=== PATIENT | male | born 1980 | race Two or more races ===

== ENCOUNTER 2024-10-27 08:38 | Emergency (ER) | payer MEDICAID, SELFPAY ==
[2024-10-27 08:44] VITALS: BP 124/76; PULSE 86; RESP 16; TEMP 36.7; O2SAT 99; BMI 28.1
--- NOTE | 2024-10-27 08:48 | PD.EDBACK ---
ED Back Injury Pain RME/HPI General Chief Complaint: Back Pain/Injury Stated Complaint: BILATERAL FLANK PAIN Time Seen by Provider: 10/27/24 08:44 Arrival date/time: 10/27/24 08:38 44-year-old male with a history of chronic lower back pain reports with complaints of bilateral lower back and flank pain that began last evening. Patient reports having kidney pain but no dysuria urinary urgency frequency hematuria fever or chills. Patient reports not taking any medications for symptoms. He also denies trauma or injury to the lower spine or heavy lifting pushing or pulling Limitations: no limitations Related Data Previous Rx's ?Medication ?Instructions ?Recorded sulfamethoxazole 800 1 tab PO BID #14 tabs 03/09/23 mg-trimethoprim 160 mg tablet (Bactrim DS) cyclobenzaprine 5 mg tablet 5 mg PO TID PRN muscle spasm #30 07/23/23 tabs naproxen 500 mg tablet 500 mg PO BID PRN pain #30 tabs 07/23/23 naproxen 500 mg tablet 500 mg PO BID PRN pain #30 tabs 08/08/23 tamsulosin 0.4 mg capsule (Flomax) 0.4 mg PO QDAY #30 caps 08/08/23 baclofen 10 mg tablet 10 mg PO BID PRN muscle spasm #30 08/14/23 tabs naproxen 500 mg tablet 500 mg PO BID PRN pain #30 tabs 08/14/23 ibuprofen 800 mg tablet 800 mg PO TID PRN pain #30 tabs 08/28/23 ibuprofen 600 mg tablet 600 mg PO Q6H PRN pain #30 tabs 01/27/24 methocarbamol 500 mg tablet 1,000 mg (2 x 500 mg) PO Q8H PRN 01/27/24 pain #30 tabs naproxen 500 mg tablet (Naprosyn) 500 mg PO BID #14 tabs 03/15/24 ibuprofen 800 mg tablet 800 mg PO TID PRN pain #30 tabs 04/02/24 cyclobenzaprine 5 mg tablet 5 mg PO TID PRN muscle spasm #14 04/07/24 tabs ibuprofen 600 mg tablet 600 mg PO Q6H PRN fever or pain 04/07/24 #30 tabs ibuprofen 600 mg tablet 600 mg PO Q6H PRN pain #30 tabs 04/07/24 cyclobenzaprine 5 mg tablet 5 mg PO TID PRN muscle spasm #30 04/11/24 tabs naproxen 500 mg tablet 500 mg PO BID PRN pain #30 tabs 04/11/24 Allergies Allergy/AdvReac Type Severity Reaction Status Date / Time No Known Allergies Allergy Verified 10/27/24 08:39 Review of Systems Constitutional Constitutional: Denies chills, Denies fever(s) and Denies headache(s) ENT Ears, Nose, Mouth, and Throat: Denies dizziness and Denies headache(s) Cardiovascular Cardiovascular: Denies chest pain and Denies dyspnea Respiratory Respiratory: Denies cough and Denies dyspnea Gastrointestinal Gastrointestinal: Denies abdominal pain, Denies nausea and Denies vomiting Genitourinary Genitourinary: Denies dysuria, Reports flank pain and Denies hematuria Musculoskeletal Musculoskeletal: Reports back pain and Denies myalgias Integumentary/Breasts Skin/Breast: Denies erythema and Denies rash Neurologic Neurologic: Denies dizziness and Denies headache(s) Hematologic/Lymphatic Hematologic/Lymphatic: Denies easy bleeding and Denies easy bruising Past Medical History Past Medical History NEUROLOGIC: Positive Neurological Disorders and Cerebrovascular Accident CARDIAC: Positive Cardiac Disorders, Myocardial Infarction and Hypercholesterolemia; Negative Congestive Heart Failure RESPIRATORY: Negative Chronic Obstructive Pulmonary Disease (COPD) GASTROINTESTINAL: Negative Gastrointestinal Disorders GENITOURINARY: Negative Genitourinary Disorders or Renal Disease MUSCULOSKELETAL: Negative Musculoskeletal Disorders ENDOCRINE: Negative Endocrine Disorders, Diabetes Mellitus Type 1 or Diabetes Mellitus Type 2 HEMATOLOGIC: Negative Blood Disorders OTHER HISTORY: Negative Autoimmune Disease or Clostridium Difficile Social History SMOKING STATUS: Current every day smoker SUBSTANCE USE: methamphetamine ED Exam General Limitations: Present no limitations General appearance: Present alert and in no apparent distress Chest Chest inspection: Present normal inspection and symmetric chest wall rise Respiratory Respiratory exam: Present normal lung sounds bilaterally Cardiovascular Cardiovascular exam: Present regular rate, normal rhythm and normal heart sounds Abdominal Exam Abdominal exam: Present soft and normal bowel sounds; Absent tenderness, guarding, rebound or Perales's sign Extremities Exam Extremities exam: Present normal inspection and full ROM Back Exam Back exam: Present normal inspection and full ROM; Absent tenderness, sciatic notch tenderness (L) or straight leg raise (R) Neurological Exam Neurological exam: Present alert, oriented X3 and CN II-XII intact Psychiatric Psychiatric exam: Present normal affect and normal mood Skin Skin exam: Present warm, dry, intact and normal color Course Quality Measures none Orders Category Date Time Status CT abdomen pelvis wo con Stat Exams 10/27/24 10:05 Ordered Urinalysis, C/S if Indicated Stat Lab 10/27/24 08:50 Completed Vital Signs Vital signs: Vital Signs Temperature 98.0 F 10/27/24 08:44 Pulse Rate 86 10/27/24 08:44 Respiratory Rate 16 10/27/24 08:44 Blood Pressure 124/76 10/27/24 08:44 Pulse Oximetry (%) 99 10/27/24 08:44 Oxygen Delivery Method Room Air 10/27/24 08:44 Back Pain / Injury Patient data External records reviewed:: None Clinical information provided by:: patient Social determinants that could affect healthcare access:: none Patient has the following chronic illnesses:: none How is presenting disease/condition affected by chronic disease/condition?: no chronic disease Evaluation data The following diagnostics were reviewed and interpreted by me:: other (specify) (pt eloped ) Lab and/or radiology exams considered but not ordered:: not completed pt eloped Interpretation Summary: not completed pt eloped Medications / Prescriptions Medications or Prescriptions considered but not ordered:: not completed pt eloped Medication administrations:: not completed pt eloped Consultations Consultation(s) initiated? (list below): No Diagnosis Most likely diagnosis given after review of the tests above:: not completed pt eloped Admission Indicated Admission indicated?: not indicated Admission Request Was there a request for admission?: No Disposition Plan Disposition Plan: other (specify) (pt eloped ) Discharge Plan Plan Patient Disposition: Elopement Prescriptions/Referrals Prescriptions/Med Rec: No Action naproxen 500 mg tablet 500 mg PO BID PRN (Reason: pain) Qty: 30 0RF cyclobenzaprine 5 mg tablet 5 mg PO TID PRN (Reason: muscle spasm) Qty: 30 0RF naproxen 500 mg tablet 500 mg PO BID PRN (Reason: pain) Qty: 30 0RF baclofen 10 mg tablet 10 mg PO BID PRN (Reason: muscle spasm) Qty: 30 0RF ibuprofen 800 mg tablet 800 mg PO TID PRN (Reason: pain) Qty: 30 0RF ibuprofen 800 mg tablet 800 mg PO TID PRN (Reason: pain) Qty: 30 0RF ibuprofen 600 mg tablet 600 mg PO Q6H PRN (Reason: pain) Qty: 30 0RF sulfamethoxazole-trimethoprim [Bactrim DS] 800-160 mg tablet 1 tab PO BID Qty: 14 0RF naproxen 500 mg tablet 500 mg PO BID PRN (Reason: pain) Qty: 30 0RF tamsulosin [Flomax] 0.4 mg capsule 0.4 mg PO QDAY Qty: 30 0RF ibuprofen 600 mg tablet 600 mg PO Q6H PRN (Reason: pain) Qty: 30 0RF methocarbamol 500 mg tablet 1,000 mg PO Q8H PRN (Reason: pain) Qty: 30 0RF naproxen [Naprosyn] 500 mg tablet 500 mg PO BID Qty: 14 0RF ibuprofen 600 mg tablet 600 mg PO Q6H PRN (Reason: fever or pain) Qty: 30 0RF cyclobenzaprine 5 mg tablet 5 mg PO TID PRN (Reason: muscle spasm) Qty: 14 0RF naproxen 500 mg tablet 500 mg PO BID PRN (Reason: pain) Qty: 30 0RF cyclobenzaprine 5 mg tablet 5 mg PO TID PRN (Reason: muscle spasm) Qty: 30 0RF Referrals: Lavell (PCP),MD Cody [Primary Care Provider] - In 1 week Problem List Clinical Impression: Back pain Patient/Caregiver Discharge Instructions Print Language: Austrian
[2024-10-27 09:18] LABS: Collection Type, Urine Clean Catch; Squamous Epithelial Cell,Urine 0 /hpf (0-5)
[2024-10-27 09:38] LABS: Bilirubin,Urine Negative (Negative); Blood,Urine 1+ (Negative); Clarity,Urine Clear (Clear/Hazy); Color,Urine Yellow (Lt Yel-Yel); Culture Indicated,Urine Not Indicated; Glucose, Urine Negative (Negative); Ketones,Urine Negative (Negative); Leukocyte Esterase,Urine Negative (Negative); Nitrite,Urine Negative (Negative); Protein,Urine 1+ (Neg - Trace); RBC,Urine 4 /hpf (0-3); Specific Gravity,Urine 1.026 (1.001-1.035); Urobilinogen,Urine Negative mg/dL (0.0-1.0); WBC,Urine 3 /hpf (0-5)
--- NOTE | 2024-10-27 10:34 | PC.NURSE ---
called pt back, no answer at this time
--- NOTE | 2024-10-27 11:29 | PC.NURSE ---
PATIENT SEEN WALKING OUT OF WAITING ROOM
== END 2024-10-27 10:30 | disposition left against medical advice (07) ==
PROVIDERS: Physician Assistant; Emergency Provider Emergency Medicine; PCP Family Medicine
DX: M54.50 Low back pain, unspecified (principal); R10.9 Unspecified abdominal pain; G89.29 Other chronic pain
CPT/HCPCS: 81001; 99281

== ENCOUNTER 2024-11-03 19:47 | Emergency (ER) | payer MEDICAID, SELFPAY ==
[2024-11-03 19:49] VITALS: PULSE 88; O2SAT 96; BMI 28.8
[2024-11-03 20:23] VITALS: BP 149/102; PULSE 94; RESP 18; TEMP 36.6; O2SAT 100
--- NOTE | 2024-11-03 20:34 | EDNOTE_ITS ---
<Statement entered by Annemarie Cortez MD - 11/13/24 11:49> As co-signing physician, I was present and available for consult prn. I concur with the plan and care as documented by the midlevel provider. ED Back Injury Pain RME/HPI General Chief Complaint: Back Pain/Injury Stated Complaint: LOWER BACK PAIN Time Seen by Provider: 11/03/24 20:27 Source: patient Arrival date/time: 11/03/24 19:47 44-year-old male presents emergency department complaining of lower back pain has been ongoing for several years. Patient denies any fever, chills, n/v, or any other associated symptoms. Mode of arrival: ambulatory Limitations: no limitations Related Data Previous Rx's ?Medication ?Instructions ?Recorded sulfamethoxazole 800 1 tab PO BID #14 tabs 03/09/23 mg-trimethoprim 160 mg tablet (Bactrim DS) cyclobenzaprine 5 mg tablet 5 mg PO TID PRN muscle spasm #30 07/23/23 tabs naproxen 500 mg tablet 500 mg PO BID PRN pain #30 tabs 07/23/23 naproxen 500 mg tablet 500 mg PO BID PRN pain #30 tabs 08/08/23 tamsulosin 0.4 mg capsule (Flomax) 0.4 mg PO QDAY #30 caps 08/08/23 baclofen 10 mg tablet 10 mg PO BID PRN muscle spasm #30 08/14/23 tabs naproxen 500 mg tablet 500 mg PO BID PRN pain #30 tabs 08/14/23 ibuprofen 800 mg tablet 800 mg PO TID PRN pain #30 tabs 08/28/23 ibuprofen 600 mg tablet 600 mg PO Q6H PRN pain #30 tabs 01/27/24 methocarbamol 500 mg tablet 1,000 mg (2 x 500 mg) PO Q8H PRN 01/27/24 pain #30 tabs naproxen 500 mg tablet (Naprosyn) 500 mg PO BID #14 tabs 03/15/24 ibuprofen 800 mg tablet 800 mg PO TID PRN pain #30 tabs 04/02/24 cyclobenzaprine 5 mg tablet 5 mg PO TID PRN muscle spasm #14 04/07/24 tabs ibuprofen 600 mg tablet 600 mg PO Q6H PRN fever or pain 04/07/24 #30 tabs ibuprofen 600 mg tablet 600 mg PO Q6H PRN pain #30 tabs 04/07/24 cyclobenzaprine 5 mg tablet 5 mg PO TID PRN muscle spasm #30 04/11/24 tabs naproxen 500 mg tablet 500 mg PO BID PRN pain #30 tabs 04/11/24 ibuprofen 600 mg tablet 600 mg PO Q8H PRN pain #20 tabs 11/03/24 Allergies Allergy/AdvReac Type Severity Reaction Status Date / Time No Known Allergies Allergy Verified 10/27/24 08:39 Review of Systems Review of Systems Systems Reviewed: All systems reviewed, normal except as documented Constitutional Constitutional: Reports system reviewed and no additional complaints, except as documented, Denies body ache(s), Denies chills and Denies fever(s) Eyes Eyes: Reports system reviewed and no additional complaints, except as documented and Denies change in vision ENT Ears, Nose, Mouth, and Throat: Reports system reviewed and no additional complaints, except as documented, Denies disequilibrium, Denies dizziness, Denies sore throat and Denies vertigo Cardiovascular Cardiovascular: Reports system reviewed and no additional complaints, except as documented, Denies chest pain and Denies dyspnea Respiratory Respiratory: Reports system reviewed and no additional complaints, except as documented, Denies chest congestion, Denies cough and Denies dyspnea Gastrointestinal Gastrointestinal: Reports system reviewed and no additional complaints, except as documented, Denies abdominal pain, Denies nausea and Denies vomiting Musculoskeletal Musculoskeletal: Reports system reviewed and no additional complaints, except as documented, Denies abnormal gait, Denies arthralgias and Reports back pain Integumentary/Breasts Skin/Breast: Reports system reviewed and no additional complaints, except as documented, Denies erythema, Denies rash and Denies wounds Neurologic Neurologic: Reports system reviewed and no additional complaints, except as documented, Denies abnormal gait, Denies disequilibrium, Denies dizziness and Denies vertigo Past Medical History Past Medical History NEUROLOGIC: Positive Neurological Disorders and Cerebrovascular Accident CARDIAC: Positive Cardiac Disorders, Myocardial Infarction and Hypercholesterolemia; Negative Congestive Heart Failure RESPIRATORY: Negative Chronic Obstructive Pulmonary Disease (COPD) GASTROINTESTINAL: Negative Gastrointestinal Disorders GENITOURINARY: Negative Genitourinary Disorders or Renal Disease MUSCULOSKELETAL: Negative Musculoskeletal Disorders ENDOCRINE: Negative Endocrine Disorders, Diabetes Mellitus Type 1 or Diabetes Mellitus Type 2 HEMATOLOGIC: Negative Blood Disorders OTHER HISTORY: Negative Autoimmune Disease or Clostridium Difficile Social History SMOKING STATUS: Current every day smoker SUBSTANCE USE: methamphetamine ED Exam General Limitations: Present no limitations General appearance: Present alert and in no apparent distress Head Head exam: Present atraumatic Eye Eye exam: Present normal appearance, PERRL and EOMI ENT ENT exam: Present normal exam, normal oropharynx and mucous membranes moist Neck Neck exam: Present normal inspection, full ROM and trachea midline Chest Chest inspection: Present normal inspection and symmetric chest wall rise Respiratory Respiratory exam: Present normal lung sounds bilaterally Cardiovascular Cardiovascular exam: Present regular rate, normal rhythm and normal heart sounds Abdominal Exam Abdominal exam: Present soft and normal bowel sounds Extremities Exam Extremities exam: Present normal inspection and full ROM Back Exam Back exam: Present normal inspection and full ROM Neurological Exam Neurological exam: Present alert, oriented X3 and CN II-XII intact Psychiatric Psychiatric exam: Present normal affect and normal mood Skin Skin exam: Present warm, dry, intact and normal color Course Quality Measures none Orders Category Date Time Status Drug Screen,Urine Stat Lab 11/03/24 20:36 Completed Urinalysis, C/S if Indicated Stat Lab 11/03/24 20:36 Completed Ketorolac Inj [Toradol Inj] Med 11/03/24 22:17 Discontinued 30 mg IM X1 ONE Vital Signs Vital signs: Vital Signs Temperature 98 F 11/03/24 20:23 Pulse Rate 94 11/03/24 20:23 Respiratory Rate 18 11/03/24 20:23 Blood Pressure 149/102 H 11/03/24 20:23 Pulse Oximetry (%) 100 11/03/24 20:23 Oxygen Delivery Method Room Air 11/03/24 20:23 100% RA WNL. Back Pain / Injury MDM Narrative MDM Narrative:: 44-year-old male presents emergency department complaining of lower back pain has been ongoing for several years. Patient denies any fever, chills, n/v, bowel or bladder dysfunction, or any other associated symptoms. Urinalysis unremarkable. Patient appears non toxic and hemodynamically stable. Patient steady gait and ambulate independently. Patient data External records reviewed:: [facility] previous records Clinical information provided by:: patient Social determinants that could affect healthcare access:: substance use Patient has the following chronic illnesses:: see chart How is presenting disease/condition affected by chronic disease/condition?: exacerbated by Evaluation data The following diagnostics were reviewed and interpreted by me:: lab results Lab and/or radiology exams considered but not ordered:: ordered Interpretation Summary: interpreted by me Medications / Prescriptions Medications or Prescriptions considered but not ordered:: ordered Medication administrations:: Medication Administration History Discontinued Medications Ketorolac Tromethamine (Ketorolac Inj 60 Mg/2 Ml Vial) 30 mg IM X1 ONE Stop: 11/03/24 22:18 Last Admin: 11/03/24 22:34 Dose: 30 mg Documented By: OA given Consultations Consultation(s) initiated? (list below): No Diagnosis Differential diagnosis back pain/injury: lumbar radiculopathy, sciatica, strain of lumbar region, renal colic, pyelonephritis, thoracic back pain, AAA and discitis Most likely diagnosis given after review of the tests above:: methamphetamine use back pain Admission Indicated Admission indicated?: not indicated Admission Request Was there a request for admission?: No Disposition Plan Disposition Plan: Discharge Discharge Attestation Discharge Attestation: The patient and all family members were given an opportunity to ask questions and understood the discharge instructions. Discharge instructions specifically effects, indications for sooner follow up or return to the emergency department, and the expected course of current diagnosis. Patient condition: Stable Discharge Plan Plan Patient Disposition: HOME (Self Care) Disposition Comment: Stable Prescriptions/Referrals Prescriptions/Med Rec: New ibuprofen 600 mg tablet 600 mg PO Q8H PRN (Reason: pain) Qty: 20 0RF No Action naproxen 500 mg tablet 500 mg PO BID PRN (Reason: pain) Qty: 30 0RF cyclobenzaprine 5 mg tablet 5 mg PO TID PRN (Reason: muscle spasm) Qty: 30 0RF naproxen 500 mg tablet 500 mg PO BID PRN (Reason: pain) Qty: 30 0RF baclofen 10 mg tablet 10 mg PO BID PRN (Reason: muscle spasm) Qty: 30 0RF ibuprofen 800 mg tablet 800 mg PO TID PRN (Reason: pain) Qty: 30 0RF ibuprofen 800 mg tablet 800 mg PO TID PRN (Reason: pain) Qty: 30 0RF ibuprofen 600 mg tablet 600 mg PO Q6H PRN (Reason: pain) Qty: 30 0RF sulfamethoxazole-trimethoprim [Bactrim DS] 800-160 mg tablet 1 tab PO BID Qty: 14 0RF naproxen 500 mg tablet 500 mg PO BID PRN (Reason: pain) Qty: 30 0RF tamsulosin [Flomax] 0.4 mg capsule 0.4 mg PO QDAY Qty: 30 0RF ibuprofen 600 mg tablet 600 mg PO Q6H PRN (Reason: pain) Qty: 30 0RF methocarbamol 500 mg tablet 1,000 mg PO Q8H PRN (Reason: pain) Qty: 30 0RF naproxen [Naprosyn] 500 mg tablet 500 mg PO BID Qty: 14 0RF ibuprofen 600 mg tablet 600 mg PO Q6H PRN (Reason: fever or pain) Qty: 30 0RF cyclobenzaprine 5 mg tablet 5 mg PO TID PRN (Reason: muscle spasm) Qty: 14 0RF naproxen 500 mg tablet 500 mg PO BID PRN (Reason: pain) Qty: 30 0RF cyclobenzaprine 5 mg tablet 5 mg PO TID PRN (Reason: muscle spasm) Qty: 30 0RF Referrals: No Primary/Family,Physician [Primary Care Provider] - In 1 week Problem List Clinical Impression: Methamphetamine use, Back pain Patient/Caregiver Discharge Instructions Discharge Activity: activity as tolerated Education Materials: Addiction Ask These Questions, Addiction: Getting Help, Addiction: Your Treatment Options, Addiction Recovery Counseling, ED Drug Abuse Additional Instructions: Take medication as prescribed as needed for pain. No signs of infection or UTI. Follow-up with primary care provider and request referral physical therapy or MRI of lower back if symptoms persist. Return to emergency department for any worsening symptoms or as needed. Print Language: Estonian Stand Alone Forms: Tami Award Info., Patient Portal Info Letter PA/DEVYN Supervising Physician PA/DEVYN Supervising Physician: Dr. Cortez
[2024-11-03 20:48] LABS: Collection Type, Urine Clean Catch; RBC,Urine 0 /hpf (0-3); Squamous Epithelial Cell,Urine 0 /hpf (0-5); WBC,Urine 0 /hpf (0-5)
[2024-11-03 21:04] LABS: Bilirubin,Urine Negative (Negative); Blood,Urine Negative (Negative); Clarity,Urine Clear (Clear/Hazy); Color,Urine Yellow (Lt Yel-Yel); Culture Indicated,Urine Not Indicated; Glucose, Urine Negative (Negative); Ketones,Urine Trace (Negative); Leukocyte Esterase,Urine Negative (Negative); Nitrite,Urine Negative (Negative); Protein,Urine Trace (Neg - Trace); Specific Gravity,Urine 1.036 (1.001-1.035)
[2024-11-03 21:37] LABS: Amphetamine/Methamp Scrn,U Positive (Negative); Barbiturate Screen,Urine Negative (Negative); Benzodiazepines Screen,Urine Negative (Negative); Benzoylecgonine Screen, Ur Negative (Negative); Fentanyl Screen,Urine Negative (Negative); Opiate Screen,Urine Negative (Negative); THC Screen,Urine Positive (Negative)
[2024-11-03] MEDS: KETOROLAC INJ 60 MG/2 ML VIAL 30 MG IM (22:34)
== END 2024-11-03 23:41 | disposition home or self-care (01) ==
PROVIDERS: Emergency Provider Emergency Medicine
DX: M54.50 Low back pain, unspecified (principal); F15.90 Other stimulant use, unspecified, uncomplicated
CPT/HCPCS: 80307; 81001; 96372; 99283; J1885

== ENCOUNTER 2024-11-12 15:52 | Emergency (ER) | payer MEDICAID, SELFPAY ==
[2024-11-12 16:00] VITALS: BP 127/88; PULSE 76; RESP 18; TEMP 37.3; O2SAT 95
--- NOTE | 2024-11-12 16:39 | EDNOTE_ITS ---
<Statement entered by Annemarie Cortez MD - 11/13/24 11:47> As co-signing physician, I was present and available for consult prn. I concur with the plan and care as documented by the midlevel provider. ED Back Injury Pain RME/HPI General Stated Complaint: BACK PAIN Time Seen by Provider: 11/12/24 16:37 Arrival date/time: 11/12/24 15:52 44-year-old male homeless on methamphetamines presents the emergency department complains of lower back pain patient reports pain is chronic patient reports no saddle anesthesia no loss of bowel or bladder no fever nausea or vomiting Limitations: no limitations Related Data Previous Rx's ?Medication ?Instructions ?Recorded sulfamethoxazole 800 1 tab PO BID #14 tabs 03/09/23 mg-trimethoprim 160 mg tablet (Bactrim DS) cyclobenzaprine 5 mg tablet 5 mg PO TID PRN muscle spasm #30 07/23/23 tabs naproxen 500 mg tablet 500 mg PO BID PRN pain #30 tabs 07/23/23 naproxen 500 mg tablet 500 mg PO BID PRN pain #30 tabs 08/08/23 tamsulosin 0.4 mg capsule (Flomax) 0.4 mg PO QDAY #30 caps 08/08/23 baclofen 10 mg tablet 10 mg PO BID PRN muscle spasm #30 08/14/23 tabs naproxen 500 mg tablet 500 mg PO BID PRN pain #30 tabs 08/14/23 ibuprofen 800 mg tablet 800 mg PO TID PRN pain #30 tabs 08/28/23 ibuprofen 600 mg tablet 600 mg PO Q6H PRN pain #30 tabs 01/27/24 methocarbamol 500 mg tablet 1,000 mg (2 x 500 mg) PO Q8H PRN 01/27/24 pain #30 tabs naproxen 500 mg tablet (Naprosyn) 500 mg PO BID #14 tabs 03/15/24 ibuprofen 800 mg tablet 800 mg PO TID PRN pain #30 tabs 04/02/24 cyclobenzaprine 5 mg tablet 5 mg PO TID PRN muscle spasm #14 04/07/24 tabs ibuprofen 600 mg tablet 600 mg PO Q6H PRN fever or pain 04/07/24 #30 tabs ibuprofen 600 mg tablet 600 mg PO Q6H PRN pain #30 tabs 04/07/24 cyclobenzaprine 5 mg tablet 5 mg PO TID PRN muscle spasm #30 04/11/24 tabs naproxen 500 mg tablet 500 mg PO BID PRN pain #30 tabs 04/11/24 ibuprofen 600 mg tablet 600 mg PO Q8H PRN pain #20 tabs 11/03/24 Allergies Allergy/AdvReac Type Severity Reaction Status Date / Time No Known Allergies Allergy Verified 10/27/24 08:39 Review of Systems Review of Systems Systems Reviewed: All systems reviewed, normal except as documented Constitutional Constitutional: Reports system reviewed and no additional complaints, except as documented, Denies fever(s) and Denies headache(s) Eyes Eyes: Reports system reviewed and no additional complaints, except as documented and Denies blurry vision ENT Ears, Nose, Mouth, and Throat: Reports system reviewed and no additional complaints, except as documented, Denies headache(s), Denies nasal congestion and Denies nasal discharge Cardiovascular Cardiovascular: Reports system reviewed and no additional complaints, except as documented, Denies chest pain and Denies dyspnea Respiratory Respiratory: Reports system reviewed and no additional complaints, except as documented, Denies chest congestion, Denies cough and Denies dyspnea Gastrointestinal Gastrointestinal: Reports system reviewed and no additional complaints, except as documented and Denies abdominal pain Musculoskeletal Musculoskeletal: Reports system reviewed and no additional complaints, except as documented, Denies abnormal gait, Reports back pain, Denies numbness, Denies stiffness and Denies tingling Integumentary/Breasts Skin/Breast: Reports system reviewed and no additional complaints, except as documented and Denies rash Neurologic Neurologic: Reports system reviewed and no additional complaints, except as documented, Reports as per HPI, Denies abnormal gait, Denies headache(s), Denies numbness and Denies tingling Past Medical History Past Medical History NEUROLOGIC: Negative Neurological Disorders ED Exam General Limitations: Present no limitations General appearance: Present alert and in no apparent distress Head Head exam: Present atraumatic, normocephalic and normal inspection Eye Eye exam: Present normal appearance, PERRL and EOMI; Absent conjunctival injection ENT ENT exam: Present normal exam, normal oropharynx and mucous membranes moist Neck Neck exam: Present normal inspection, full ROM and trachea midline Chest Chest inspection: Present normal inspection and symmetric chest wall rise Respiratory Respiratory exam: Present normal lung sounds bilaterally; Absent respiratory distress Cardiovascular Cardiovascular exam: Present regular rate, normal rhythm and normal heart sounds Abdominal Exam Abdominal exam: Present soft and normal bowel sounds; Absent distention, tenderness, guarding, rebound or rigidity Extremities Exam Extremities exam: Present normal inspection and full ROM Back Exam Back exam: Present normal inspection, full ROM, tenderness and muscle spasm; Absent CVA tenderness (R) or CVA tenderness (L) Neurological Exam Neurological exam: Present alert, oriented X3 and CN II-XII intact Psychiatric Psychiatric exam: Present normal affect and normal mood Skin Skin exam: Present warm, dry, intact and normal color Course Quality Measures none Orders Category Date Time Status Ketorolac Inj [Toradol Inj] Med 11/12/24 16:37 Discontinued 30 mg IM X1 ONE Vital Signs Vital signs: Vital Signs Temperature 99.2 F 11/12/24 16:00 Pulse Rate 76 11/12/24 16:00 Respiratory Rate 18 11/12/24 16:00 Blood Pressure 127/88 H 11/12/24 16:00 Pulse Oximetry (%) 95 11/12/24 16:00 Oxygen Delivery Method Room Air 11/12/24 16:00 O2 saturation 95% room air within the limits Back Pain / Injury MDM Narrative MDM Narrative:: 44-year-old male homeless on methamphetamines presents the emergency department complains of lower back pain patient reports pain is chronic patient reports no saddle anesthesia no loss of bowel or bladder no fever nausea or vomiting On exam patient does not appear ill or toxic patient walks to the gait I do not believe imaging indicated at this time Patient given Toradol per his request Patient discharged home in no distress to follow-up with primary care doctor in the next 24 to 48 hours and for any worsening symptoms to return to the ER immediately Patient data External records reviewed:: [facility] previous records Clinical information provided by:: patient Social determinants that could affect healthcare access:: substance use Patient has the following chronic illnesses:: Substance abuse, homelessness, back pain How is presenting disease/condition affected by chronic disease/condition?: caused by Evaluation data The following diagnostics were reviewed and interpreted by me:: other (specify) (N/A) Lab and/or radiology exams considered but not ordered:: Consider not indicated Interpretation Summary: N/A Medications / Prescriptions Medications or Prescriptions considered but not ordered:: Given Medication administrations:: Medication Administration History Discontinued Medications Ketorolac Tromethamine (Ketorolac Inj 30 Mg/Ml Vial) 30 mg IM X1 ONE Stop: 11/12/24 16:38 Last Admin: 11/12/24 16:45 Dose: 30 mg Documented By: EH Given Consultations Consultation(s) initiated? (list below): No Diagnosis Differential diagnosis back pain/injury: lumbar radiculopathy, sciatica, strain of lumbar region and discitis Most likely diagnosis given after review of the tests above:: Back pain Admission Indicated Admission indicated?: not indicated Admission Request Was there a request for admission?: No Disposition Plan Disposition Plan: Discharge Discharge Attestation Discharge Attestation: The patient and all family members were given an opportunity to ask questions and understood the discharge instructions. Discharge instructions specifically effects, indications for sooner follow up or return to the emergency department, and the expected course of current diagnosis. Patient condition: Stable Discharge Plan Plan Patient Disposition: HOME (Self Care) Disposition Comment: Stable Prescriptions/Referrals Prescriptions/Med Rec: No Action naproxen 500 mg tablet 500 mg PO BID PRN (Reason: pain) Qty: 30 0RF cyclobenzaprine 5 mg tablet 5 mg PO TID PRN (Reason: muscle spasm) Qty: 30 0RF naproxen 500 mg tablet 500 mg PO BID PRN (Reason: pain) Qty: 30 0RF baclofen 10 mg tablet 10 mg PO BID PRN (Reason: muscle spasm) Qty: 30 0RF ibuprofen 800 mg tablet 800 mg PO TID PRN (Reason: pain) Qty: 30 0RF ibuprofen 800 mg tablet 800 mg PO TID PRN (Reason: pain) Qty: 30 0RF ibuprofen 600 mg tablet 600 mg PO Q6H PRN (Reason: pain) Qty: 30 0RF ibuprofen 600 mg tablet 600 mg PO Q8H PRN (Reason: pain) Qty: 20 0RF sulfamethoxazole-trimethoprim [Bactrim DS] 800-160 mg tablet 1 tab PO BID Qty: 14 0RF naproxen 500 mg tablet 500 mg PO BID PRN (Reason: pain) Qty: 30 0RF tamsulosin [Flomax] 0.4 mg capsule 0.4 mg PO QDAY Qty: 30 0RF ibuprofen 600 mg tablet 600 mg PO Q6H PRN (Reason: pain) Qty: 30 0RF methocarbamol 500 mg tablet 1,000 mg PO Q8H PRN (Reason: pain) Qty: 30 0RF naproxen [Naprosyn] 500 mg tablet 500 mg PO BID Qty: 14 0RF ibuprofen 600 mg tablet 600 mg PO Q6H PRN (Reason: fever or pain) Qty: 30 0RF cyclobenzaprine 5 mg tablet 5 mg PO TID PRN (Reason: muscle spasm) Qty: 14 0RF naproxen 500 mg tablet 500 mg PO BID PRN (Reason: pain) Qty: 30 0RF cyclobenzaprine 5 mg tablet 5 mg PO TID PRN (Reason: muscle spasm) Qty: 30 0RF Problem List Clinical Impression: Acute exacerbation of chronic low back pain, Methamphetamine abuse, Homeless Patient/Caregiver Discharge Instructions Education Materials: ED Chronic Pain Additional Instructions: Please follow up with your primary care doctor in the next 24-48hrs for any worsening symptoms return here immediately Print Language: Ukrainian Stand Alone Forms: Tami Award Info., Patient Portal Info Letter PA/SHOVEL ENGINEER Supervising Physician PA/SHOVEL ENGINEER Supervising Physician: Dr. Cortez
[2024-11-12] MEDS: KETOROLAC INJ 30 MG/ML VIAL IM (16:45)
== END 2024-11-12 16:50 | disposition home or self-care (01) ==
LOC: SERX 16:52
PROVIDERS: Emergency Provider Emergency Medicine; PCP Family Medicine
DX: M54.50 Low back pain, unspecified (principal); G89.29 Other chronic pain; F15.10 Other stimulant abuse, uncomplicated; Z59.00 Homelessness unspecified
CPT/HCPCS: 96372; 99283; J1885

== ENCOUNTER 2024-11-20 16:15 | Emergency (ER) | payer MEDICAID, SELFPAY ==
[2024-11-20 16:18] VITALS: PULSE 116; O2SAT 97; BMI 28.6
--- NOTE | 2024-11-20 17:05 | EDNOTE_ITS ---
<Statement entered by Annemarie Cortez MD - 11/22/24 06:48> As co-signing physician, I was present and available for consult prn. I concur with the plan and care as documented by the midlevel provider. ED Back Injury Pain RME/HPI General Chief Complaint: Back Pain/Injury Stated Complaint: CHRONIC BACK PAIN Time Seen by Provider: 11/20/24 16:30 Arrival date/time: 11/20/24 16:15 44-year-old male homeless on methamphetamines presents the emergency department complains of lower back pain patient reports pain is chronic patient reports no saddle anesthesia no loss of bowel or bladder no fever nausea or vomiting. Patient also reports he like food Limitations: no limitations Related Data Previous Rx's ?Medication ?Instructions ?Recorded sulfamethoxazole 800 1 tab PO BID #14 tabs 03/09/23 mg-trimethoprim 160 mg tablet (Bactrim DS) cyclobenzaprine 5 mg tablet 5 mg PO TID PRN muscle spasm #30 07/23/23 tabs naproxen 500 mg tablet 500 mg PO BID PRN pain #30 tabs 07/23/23 naproxen 500 mg tablet 500 mg PO BID PRN pain #30 tabs 08/08/23 tamsulosin 0.4 mg capsule (Flomax) 0.4 mg PO QDAY #30 caps 08/08/23 baclofen 10 mg tablet 10 mg PO BID PRN muscle spasm #30 08/14/23 tabs naproxen 500 mg tablet 500 mg PO BID PRN pain #30 tabs 08/14/23 ibuprofen 800 mg tablet 800 mg PO TID PRN pain #30 tabs 08/28/23 ibuprofen 600 mg tablet 600 mg PO Q6H PRN pain #30 tabs 01/27/24 methocarbamol 500 mg tablet 1,000 mg (2 x 500 mg) PO Q8H PRN 01/27/24 pain #30 tabs naproxen 500 mg tablet (Naprosyn) 500 mg PO BID #14 tabs 03/15/24 ibuprofen 800 mg tablet 800 mg PO TID PRN pain #30 tabs 04/02/24 cyclobenzaprine 5 mg tablet 5 mg PO TID PRN muscle spasm #14 04/07/24 tabs ibuprofen 600 mg tablet 600 mg PO Q6H PRN fever or pain 04/07/24 #30 tabs ibuprofen 600 mg tablet 600 mg PO Q6H PRN pain #30 tabs 04/07/24 cyclobenzaprine 5 mg tablet 5 mg PO TID PRN muscle spasm #30 04/11/24 tabs naproxen 500 mg tablet 500 mg PO BID PRN pain #30 tabs 04/11/24 ibuprofen 600 mg tablet 600 mg PO Q8H PRN pain #20 tabs 11/03/24 Allergies Allergy/AdvReac Type Severity Reaction Status Date / Time No Known Allergies Allergy Verified 11/20/24 16:20 Review of Systems Review of Systems Systems Reviewed: All systems reviewed, normal except as documented Constitutional Constitutional: Reports system reviewed and no additional complaints, except as documented, Denies fever(s) and Denies headache(s) Eyes Eyes: Reports system reviewed and no additional complaints, except as documented and Denies blurry vision ENT Ears, Nose, Mouth, and Throat: Reports system reviewed and no additional complaints, except as documented, Denies headache(s), Denies nasal congestion and Denies nasal discharge Cardiovascular Cardiovascular: Reports system reviewed and no additional complaints, except as documented, Denies chest pain and Denies dyspnea Respiratory Respiratory: Reports system reviewed and no additional complaints, except as documented, Denies chest congestion, Denies cough and Denies dyspnea Gastrointestinal Gastrointestinal: Reports system reviewed and no additional complaints, except as documented and Denies abdominal pain Musculoskeletal Musculoskeletal: Reports system reviewed and no additional complaints, except as documented and Reports back pain Integumentary/Breasts Skin/Breast: Reports system reviewed and no additional complaints, except as documented and Denies rash Neurologic Neurologic: Reports system reviewed and no additional complaints, except as documented, Reports as per HPI and Denies headache(s) Past Medical History Past Medical History NEUROLOGIC: Positive Cerebrovascular Accident; Negative Neurological Disorders CARDIAC: Positive Cardiac Disorders, Myocardial Infarction and Hypercholesterolemia; Negative Congestive Heart Failure RESPIRATORY: Negative Chronic Obstructive Pulmonary Disease (COPD) GASTROINTESTINAL: Negative Gastrointestinal Disorders GENITOURINARY: Negative Genitourinary Disorders or Renal Disease MUSCULOSKELETAL: Negative Musculoskeletal Disorders ENDOCRINE: Negative Endocrine Disorders, Diabetes Mellitus Type 1 or Diabetes Mellitus Type 2 HEMATOLOGIC: Negative Blood Disorders OTHER HISTORY: Negative Autoimmune Disease or Clostridium Difficile Social History SMOKING STATUS: Heavy (> 1 pack/day) SUBSTANCE USE: methamphetamine ED Exam General Limitations: Present no limitations General appearance: Present alert and in no apparent distress Head Head exam: Present atraumatic Eye Eye exam: Present normal appearance, PERRL and EOMI ENT ENT exam: Present normal exam, normal oropharynx and mucous membranes moist Neck Neck exam: Present normal inspection, full ROM and trachea midline Chest Chest inspection: Present normal inspection and symmetric chest wall rise Respiratory Respiratory exam: Present normal lung sounds bilaterally Cardiovascular Cardiovascular exam: Present regular rate, normal rhythm and normal heart sounds Abdominal Exam Abdominal exam: Present soft and normal bowel sounds Extremities Exam Extremities exam: Present normal inspection and full ROM Back Exam Back exam: Present normal inspection, full ROM, tenderness and paraspinal tenderness; Absent CVA tenderness (R) or CVA tenderness (L) Neurological Exam Neurological exam: Present alert, oriented X3, CN II-XII intact, normal gait and reflexes normal; Absent motor sensory deficit Psychiatric Psychiatric exam: Present normal affect and normal mood Skin Skin exam: Present warm, dry, intact and normal color Course Quality Measures none Orders Category Date Time Status Ketorolac Inj [Toradol Inj] Med 11/20/24 17:05 Discontinued 30 mg IM X1 ONE Vital Signs Vital signs: Vital Signs Temperature 98.3 F 11/20/24 17:08 Pulse Rate 79 11/20/24 17:08 Respiratory Rate 18 11/20/24 17:08 Blood Pressure 126/88 H 11/20/24 17:08 Pulse Oximetry (%) 97 11/20/24 17:08 Oxygen Delivery Method Room Air 11/20/24 17:08 O2 saturation 97% room air within normal limits Back Pain / Injury MDM Narrative MDM Narrative:: 44-year-old male homeless on methamphetamines presents the emergency department complains of lower back pain patient reports pain is chronic patient reports no saddle anesthesia no loss of bowel or bladder no fever nausea or vomiting. Patient also reports he like food On exam patient does not appear ill or toxic patient walks to the gait I do not believe imaging indicated at this time Patient given Toradol per his request patient was given food Patient discharged home in no distress to follow-up with primary care doctor in the next 24 to 48 hours and for any worsening symptoms to return to the ER immediately Patient data External records reviewed:: [facility] previous records Clinical information provided by:: patient Social determinants that could affect healthcare access:: substance use Patient has the following chronic illnesses:: Homelessness, methamphetamine use How is presenting disease/condition affected by chronic disease/condition?: caused by Evaluation data The following diagnostics were reviewed and interpreted by me:: other (specify) (N/A) Lab and/or radiology exams considered but not ordered:: Consider not ordered Interpretation Summary: N/A Medications / Prescriptions Medications or Prescriptions considered but not ordered:: Given Medication administrations:: Medication Administration History Discontinued Medications Ketorolac Tromethamine (Ketorolac Inj 30 Mg/Ml Vial) 30 mg IM X1 ONE Stop: 11/20/24 17:06 Last Admin: 11/20/24 17:11 Dose: 30 mg Documented By: Given Consultations Consultation(s) initiated? (list below): No Diagnosis Differential diagnosis back pain/injury: lumbar radiculopathy, sciatica and strain of lumbar region Most likely diagnosis given after review of the tests above:: Back pain Admission Indicated Admission indicated?: not indicated Admission Request Was there a request for admission?: No Disposition Plan Disposition Plan: Discharge Discharge Attestation Discharge Attestation: The patient and all family members were given an opportunity to ask questions and understood the discharge instructions. Discharge instructions specifically effects, indications for sooner follow up or return to the emergency department, and the expected course of current diagnosis. Patient condition: Stable Discharge Plan Plan Patient Disposition: HOME (Self Care) Disposition Comment: Stable Prescriptions/Referrals Prescriptions/Med Rec: No Action naproxen 500 mg tablet 500 mg PO BID PRN (Reason: pain) Qty: 30 0RF cyclobenzaprine 5 mg tablet 5 mg PO TID PRN (Reason: muscle spasm) Qty: 30 0RF naproxen 500 mg tablet 500 mg PO BID PRN (Reason: pain) Qty: 30 0RF baclofen 10 mg tablet 10 mg PO BID PRN (Reason: muscle spasm) Qty: 30 0RF ibuprofen 800 mg tablet 800 mg PO TID PRN (Reason: pain) Qty: 30 0RF ibuprofen 800 mg tablet 800 mg PO TID PRN (Reason: pain) Qty: 30 0RF ibuprofen 600 mg tablet 600 mg PO Q6H PRN (Reason: pain) Qty: 30 0RF ibuprofen 600 mg tablet 600 mg PO Q8H PRN (Reason: pain) Qty: 20 0RF sulfamethoxazole-trimethoprim [Bactrim DS] 800-160 mg tablet 1 tab PO BID Qty: 14 0RF naproxen 500 mg tablet 500 mg PO BID PRN (Reason: pain) Qty: 30 0RF tamsulosin [Flomax] 0.4 mg capsule 0.4 mg PO QDAY Qty: 30 0RF ibuprofen 600 mg tablet 600 mg PO Q6H PRN (Reason: pain) Qty: 30 0RF methocarbamol 500 mg tablet 1,000 mg PO Q8H PRN (Reason: pain) Qty: 30 0RF naproxen [Naprosyn] 500 mg tablet 500 mg PO BID Qty: 14 0RF ibuprofen 600 mg tablet 600 mg PO Q6H PRN (Reason: fever or pain) Qty: 30 0RF cyclobenzaprine 5 mg tablet 5 mg PO TID PRN (Reason: muscle spasm) Qty: 14 0RF naproxen 500 mg tablet 500 mg PO BID PRN (Reason: pain) Qty: 30 0RF cyclobenzaprine 5 mg tablet 5 mg PO TID PRN (Reason: muscle spasm) Qty: 30 0RF Problem List Clinical Impression: Back pain, Homeless Patient/Caregiver Discharge Instructions Education Materials: Back Safety: Lifting Additional Instructions: Please follow up with your primary care doctor in the next 24-48hrs for any worsening symptoms return here immediately Print Language: Finnish Stand Alone Forms: Tami Award Info., Patient Portal Info Letter PA/SALES REPRESENTATIVE ADDING MACHINES Supervising Physician PA/SALES REPRESENTATIVE ADDING MACHINES Supervising Physician: Dr. Cortez
[2024-11-20 17:08] VITALS: BP 126/88; PULSE 79; RESP 18; TEMP 36.8; O2SAT 97
[2024-11-20] MEDS: KETOROLAC INJ 30 MG/ML VIAL IM (17:11)
== END 2024-11-20 17:22 | disposition home or self-care (01) ==
LOC: SERX 18:20
PROVIDERS: Emergency Provider Emergency Medicine
DX: M54.50 Low back pain, unspecified (principal); Z59.00 Homelessness unspecified
CPT/HCPCS: 96372; 99283; J1885

== ENCOUNTER 2024-12-03 07:40 | Emergency (ER) | payer MEDICAID, SELFPAY ==
[2024-12-03 07:40] VITALS: BMI 26.6
[2024-12-03 08:05] VITALS: BP 138/38; PULSE 87; RESP 16; TEMP 36.4; O2SAT 95; BMI 27.1
--- NOTE | 2024-12-03 08:09 | EDNOTE_ITS ---
<Statement entered by Annemarie Cortez MD - 12/05/24 17:35> As co-signing physician, I was present and available for consult prn. I concur with the plan and care as documented by the midlevel provider. ED Back Injury Pain RME/HPI General Chief Complaint: Back Pain/Injury Stated Complaint: BACK PAIN Time Seen by Provider: 12/03/24 07:44 Arrival date/time: 12/03/24 07:40 44-year-old male homeless on methamphetamines presents the emergency department complains of lower back pain patient reports pain is chronic patient reports no saddle anesthesia no loss of bowel or bladder no fever nausea or vomiting. Patient also reports he would like some food Limitations: no limitations Related Data Previous Rx's ?Medication ?Instructions ?Recorded sulfamethoxazole 800 1 tab PO BID #14 tabs 03/09/23 mg-trimethoprim 160 mg tablet (Bactrim DS) cyclobenzaprine 5 mg tablet 5 mg PO TID PRN muscle spasm #30 07/23/23 tabs naproxen 500 mg tablet 500 mg PO BID PRN pain #30 tabs 07/23/23 naproxen 500 mg tablet 500 mg PO BID PRN pain #30 tabs 08/08/23 tamsulosin 0.4 mg capsule (Flomax) 0.4 mg PO QDAY #30 caps 08/08/23 baclofen 10 mg tablet 10 mg PO BID PRN muscle spasm #30 08/14/23 tabs naproxen 500 mg tablet 500 mg PO BID PRN pain #30 tabs 08/14/23 ibuprofen 800 mg tablet 800 mg PO TID PRN pain #30 tabs 08/28/23 ibuprofen 600 mg tablet 600 mg PO Q6H PRN pain #30 tabs 01/27/24 methocarbamol 500 mg tablet 1,000 mg (2 x 500 mg) PO Q8H PRN 01/27/24 pain #30 tabs naproxen 500 mg tablet (Naprosyn) 500 mg PO BID #14 tabs 03/15/24 ibuprofen 800 mg tablet 800 mg PO TID PRN pain #30 tabs 04/02/24 cyclobenzaprine 5 mg tablet 5 mg PO TID PRN muscle spasm #14 04/07/24 tabs ibuprofen 600 mg tablet 600 mg PO Q6H PRN fever or pain 04/07/24 #30 tabs ibuprofen 600 mg tablet 600 mg PO Q6H PRN pain #30 tabs 04/07/24 cyclobenzaprine 5 mg tablet 5 mg PO TID PRN muscle spasm #30 04/11/24 tabs naproxen 500 mg tablet 500 mg PO BID PRN pain #30 tabs 04/11/24 ibuprofen 600 mg tablet 600 mg PO Q8H PRN pain #20 tabs 11/03/24 Allergies Allergy/AdvReac Type Severity Reaction Status Date / Time No Known Allergies Allergy Verified 12/03/24 07:43 Review of Systems Review of Systems Systems Reviewed: All systems reviewed, normal except as documented Constitutional Constitutional: Reports system reviewed and no additional complaints, except as documented, Denies fever(s) and Denies headache(s) Eyes Eyes: Reports system reviewed and no additional complaints, except as documented and Denies blurry vision ENT Ears, Nose, Mouth, and Throat: Reports system reviewed and no additional complaints, except as documented, Denies headache(s), Denies nasal congestion and Denies nasal discharge Cardiovascular Cardiovascular: Reports system reviewed and no additional complaints, except as documented, Denies chest pain and Denies dyspnea Respiratory Respiratory: Reports system reviewed and no additional complaints, except as documented, Denies chest congestion, Denies cough and Denies dyspnea Gastrointestinal Gastrointestinal: Reports system reviewed and no additional complaints, except as documented and Denies abdominal pain Musculoskeletal Musculoskeletal: Reports system reviewed and no additional complaints, except as documented and Reports back pain Integumentary/Breasts Skin/Breast: Reports system reviewed and no additional complaints, except as documented and Denies rash Neurologic Neurologic: Reports system reviewed and no additional complaints, except as documented, Reports as per HPI and Denies headache(s) Past Medical History Past Medical History NEUROLOGIC: Negative Neurological Disorders CARDIAC: Negative Cardiac Disorders ED Exam General Limitations: Present no limitations General appearance: Present alert and in no apparent distress Head Head exam: Present atraumatic, normocephalic and normal inspection Eye Eye exam: Present normal appearance, PERRL and EOMI ENT ENT exam: Present normal exam, normal oropharynx and mucous membranes moist Neck Neck exam: Present normal inspection, full ROM and trachea midline Chest Chest inspection: Present normal inspection and symmetric chest wall rise Respiratory Respiratory exam: Present normal lung sounds bilaterally Cardiovascular Cardiovascular exam: Present regular rate, normal rhythm and normal heart sounds Abdominal Exam Abdominal exam: Present soft and normal bowel sounds; Absent distention or tenderness Extremities Exam Extremities exam: Present normal inspection and full ROM Back Exam Back exam: Present normal inspection, full ROM and muscle spasm; Absent CVA tenderness (R) or CVA tenderness (L) Neurological Exam Neurological exam: Present alert, oriented X3 and CN II-XII intact Psychiatric Psychiatric exam: Present normal affect and normal mood Skin Skin exam: Present warm, dry, intact and normal color Course Quality Measures none Orders Category Date Time Status Ketorolac Inj [Toradol Inj] Med 12/03/24 08:09 Discontinued 30 mg IM X1 ONE Vital Signs Vital signs: Vital Signs Temperature 97.5 F 12/03/24 08:05 Pulse Rate 87 12/03/24 08:05 Respiratory Rate 16 12/03/24 08:05 Blood Pressure 138/38 H 12/03/24 08:05 Pulse Oximetry (%) 95 12/03/24 08:05 Oxygen Delivery Method Room Air 12/03/24 08:05 O2 saturation 95% room air within normal Back Pain / Injury MDM Narrative MDM Narrative:: 44-year-old male homeless on methamphetamines presents the emergency department complains of lower back pain patient reports pain is chronic patient reports no saddle anesthesia no loss of bowel or bladder no fever nausea or vomiting. Patient also reports he would like some food patient given a sandwich On exam patient does not appear ill or toxic patient walks to the gait I do not believe imaging indicated at this time Patient given Toradol per his request patient was given food Patient discharged home in no distress to follow-up with primary care doctor in the next 24 to 48 hours and for any worsening symptoms to return to the ER immediately Patient data External records reviewed:: [facility] previous records Clinical information provided by:: patient Social determinants that could affect healthcare access:: none Patient has the following chronic illnesses:: None How is presenting disease/condition affected by chronic disease/condition?: no chronic disease Evaluation data The following diagnostics were reviewed and interpreted by me:: other (specify) (N/A) Lab and/or radiology exams considered but not ordered:: Consider not ordered Interpretation Summary: N/A Medications / Prescriptions Medications or Prescriptions considered but not ordered:: Given Medication administrations:: Medication Administration History Discontinued Medications Ketorolac Tromethamine (Ketorolac Inj 30 Mg/Ml Vial) 30 mg IM X1 ONE Stop: 12/03/24 08:10 Last Admin: 12/03/24 08:16 Dose: 30 mg Documented By: JEMAL Given Consultations Consultation(s) initiated? (list below): No Diagnosis Differential diagnosis back pain/injury: lumbar radiculopathy, strain of lumbar region, renal colic and discitis Most likely diagnosis given after review of the tests above:: Back pain Admission Indicated Admission indicated?: not indicated Admission Request Was there a request for admission?: No Disposition Plan Disposition Plan: Discharge Discharge Attestation Discharge Attestation: The patient and all family members were given an opportunity to ask questions and understood the discharge instructions. Discharge instructions specifically effects, indications for sooner follow up or return to the emergency department, and the expected course of current diagnosis. Patient condition: Stable Discharge Plan Plan Patient Disposition: HOME (Self Care) Disposition Comment: Stable Prescriptions/Referrals Prescriptions/Med Rec: No Action naproxen 500 mg tablet 500 mg PO BID PRN (Reason: pain) Qty: 30 0RF cyclobenzaprine 5 mg tablet 5 mg PO TID PRN (Reason: muscle spasm) Qty: 30 0RF naproxen 500 mg tablet 500 mg PO BID PRN (Reason: pain) Qty: 30 0RF baclofen 10 mg tablet 10 mg PO BID PRN (Reason: muscle spasm) Qty: 30 0RF ibuprofen 800 mg tablet 800 mg PO TID PRN (Reason: pain) Qty: 30 0RF ibuprofen 800 mg tablet 800 mg PO TID PRN (Reason: pain) Qty: 30 0RF ibuprofen 600 mg tablet 600 mg PO Q6H PRN (Reason: pain) Qty: 30 0RF ibuprofen 600 mg tablet 600 mg PO Q8H PRN (Reason: pain) Qty: 20 0RF sulfamethoxazole-trimethoprim [Bactrim DS] 800-160 mg tablet 1 tab PO BID Qty: 14 0RF naproxen 500 mg tablet 500 mg PO BID PRN (Reason: pain) Qty: 30 0RF tamsulosin [Flomax] 0.4 mg capsule 0.4 mg PO QDAY Qty: 30 0RF ibuprofen 600 mg tablet 600 mg PO Q6H PRN (Reason: pain) Qty: 30 0RF methocarbamol 500 mg tablet 1,000 mg PO Q8H PRN (Reason: pain) Qty: 30 0RF naproxen [Naprosyn] 500 mg tablet 500 mg PO BID Qty: 14 0RF ibuprofen 600 mg tablet 600 mg PO Q6H PRN (Reason: fever or pain) Qty: 30 0RF cyclobenzaprine 5 mg tablet 5 mg PO TID PRN (Reason: muscle spasm) Qty: 14 0RF naproxen 500 mg tablet 500 mg PO BID PRN (Reason: pain) Qty: 30 0RF cyclobenzaprine 5 mg tablet 5 mg PO TID PRN (Reason: muscle spasm) Qty: 30 0RF Problem List Clinical Impression: Acute exacerbation of chronic low back pain, Homeless Patient/Caregiver Discharge Instructions Education Materials: Medicine for Pain Additional Instructions: Please follow up with your primary care doctor in the next 24-48hrs for any worsening symptoms return here immediately Print Language: Polish Stand Alone Forms: Tami Award Info., Patient Portal Info Letter PA/WEB MARKETING ASSISTANT Supervising Physician PA/WEB MARKETING ASSISTANT Supervising Physician: Dr. CORTEZ
[2024-12-03] MEDS: KETOROLAC INJ 30 MG/ML VIAL IM (08:16)
== END 2024-12-03 08:21 | disposition home or self-care (01) ==
LOC: SERX 08:52
PROVIDERS: Emergency Provider Emergency Medicine
DX: G89.29 Other chronic pain (principal); M54.50 Low back pain, unspecified; Z59.00 Homelessness unspecified
CPT/HCPCS: 96372; 99283; J1885

== ENCOUNTER 2024-12-03 21:52 | Emergency (ER) | payer MEDICAID, SELFPAY ==
[2024-12-03 21:53] VITALS: BMI 27.8
[2024-12-03 23:17] VITALS: BP 121/70; PULSE 100; RESP 18; TEMP 36.6; O2SAT 100
--- NOTE | 2024-12-03 23:31 | PD.EDBACK ---
ED Back Injury Pain RME/HPI General Chief Complaint: Back Pain/Injury Stated Complaint: back pain Time Seen by Provider: 12/03/24 23:18 Source: patient Arrival date/time: 12/03/24 21:52 44-year-old male with past medical history of chronic back pain presents emergency department complaining of low back pain that is been ongoing for several years. Patient denies any fever, chills, dysuria, vomiting, bowel or bladder dysfunction, or saddle anesthesia. Mode of arrival: ambulatory Limitations: no limitations Related Data Previous Rx's ?Medication ?Instructions ?Recorded sulfamethoxazole 800 1 tab PO BID #14 tabs 03/09/23 mg-trimethoprim 160 mg tablet (Bactrim DS) cyclobenzaprine 5 mg tablet 5 mg PO TID PRN muscle spasm #30 07/23/23 tabs naproxen 500 mg tablet 500 mg PO BID PRN pain #30 tabs 07/23/23 naproxen 500 mg tablet 500 mg PO BID PRN pain #30 tabs 08/08/23 tamsulosin 0.4 mg capsule (Flomax) 0.4 mg PO QDAY #30 caps 08/08/23 baclofen 10 mg tablet 10 mg PO BID PRN muscle spasm #30 08/14/23 tabs naproxen 500 mg tablet 500 mg PO BID PRN pain #30 tabs 08/14/23 ibuprofen 800 mg tablet 800 mg PO TID PRN pain #30 tabs 08/28/23 ibuprofen 600 mg tablet 600 mg PO Q6H PRN pain #30 tabs 01/27/24 methocarbamol 500 mg tablet 1,000 mg (2 x 500 mg) PO Q8H PRN 01/27/24 pain #30 tabs naproxen 500 mg tablet (Naprosyn) 500 mg PO BID #14 tabs 03/15/24 ibuprofen 800 mg tablet 800 mg PO TID PRN pain #30 tabs 04/02/24 cyclobenzaprine 5 mg tablet 5 mg PO TID PRN muscle spasm #14 04/07/24 tabs ibuprofen 600 mg tablet 600 mg PO Q6H PRN fever or pain 04/07/24 #30 tabs ibuprofen 600 mg tablet 600 mg PO Q6H PRN pain #30 tabs 04/07/24 cyclobenzaprine 5 mg tablet 5 mg PO TID PRN muscle spasm #30 04/11/24 tabs naproxen 500 mg tablet 500 mg PO BID PRN pain #30 tabs 04/11/24 ibuprofen 600 mg tablet 600 mg PO Q8H PRN pain #20 tabs 11/03/24 acetaminophen 500 mg capsule 500 mg PO Q6H PRN pain #30 caps 12/03/24 Allergies Allergy/AdvReac Type Severity Reaction Status Date / Time No Known Allergies Allergy Verified 12/03/24 07:43 Review of Systems Review of Systems Systems Reviewed: All systems reviewed, normal except as documented Constitutional Constitutional: Reports system reviewed and no additional complaints, except as documented, Denies body ache(s), Denies chills and Denies fever(s) Eyes Eyes: Reports system reviewed and no additional complaints, except as documented and Denies change in vision ENT Ears, Nose, Mouth, and Throat: Reports system reviewed and no additional complaints, except as documented, Denies disequilibrium, Denies dizziness, Denies sore throat and Denies vertigo Cardiovascular Cardiovascular: Reports system reviewed and no additional complaints, except as documented, Denies chest pain and Denies dyspnea Respiratory Respiratory: Reports system reviewed and no additional complaints, except as documented, Denies chest congestion, Denies cough and Denies dyspnea Gastrointestinal Gastrointestinal: Reports system reviewed and no additional complaints, except as documented, Denies abdominal pain, Denies nausea and Denies vomiting Musculoskeletal Musculoskeletal: Reports system reviewed and no additional complaints, except as documented, Denies abnormal gait, Denies arthralgias and Reports back pain Integumentary/Breasts Skin/Breast: Reports system reviewed and no additional complaints, except as documented, Denies erythema, Denies rash and Denies wounds Neurologic Neurologic: Reports system reviewed and no additional complaints, except as documented, Denies abnormal gait, Denies disequilibrium, Denies dizziness and Denies vertigo Past Medical History Past Medical History NEUROLOGIC: Positive Cerebrovascular Accident; Negative Neurological Disorders CARDIAC: Positive Myocardial Infarction and Hypercholesterolemia; Negative Cardiac Disorders or Congestive Heart Failure RESPIRATORY: Negative Chronic Obstructive Pulmonary Disease (COPD) GASTROINTESTINAL: Negative Gastrointestinal Disorders GENITOURINARY: Negative Genitourinary Disorders or Renal Disease MUSCULOSKELETAL: Negative Musculoskeletal Disorders ENDOCRINE: Negative Endocrine Disorders, Diabetes Mellitus Type 1 or Diabetes Mellitus Type 2 HEMATOLOGIC: Negative Blood Disorders OTHER HISTORY: Negative Autoimmune Disease or Clostridium Difficile Social History SMOKING STATUS: Never smoker SUBSTANCE USE: methamphetamine ED Exam General Limitations: Present no limitations General appearance: Present alert and in no apparent distress Head Head exam: Present atraumatic Eye Eye exam: Present normal appearance, PERRL and EOMI ENT ENT exam: Present normal exam, normal oropharynx and mucous membranes moist Neck Neck exam: Present normal inspection, full ROM and trachea midline Chest Chest inspection: Present normal inspection and symmetric chest wall rise Respiratory Respiratory exam: Present normal lung sounds bilaterally Cardiovascular Cardiovascular exam: Present regular rate, normal rhythm and normal heart sounds Abdominal Exam Abdominal exam: Present soft and normal bowel sounds Extremities Exam Extremities exam: Present normal inspection and full ROM Back Exam Back exam: Present normal inspection, full ROM, straight leg raise (R) and straight leg raise (L); Absent CVA tenderness (R) or CVA tenderness (L) Neurological Exam Neurological exam: Present alert, oriented X3 and CN II-XII intact Psychiatric Psychiatric exam: Present normal affect and normal mood Skin Skin exam: Present warm, dry, intact and normal color Course Quality Measures none Orders Category Date Time Status Ketorolac Inj [Toradol Inj] Med 12/03/24 23:31 Discontinued 30 mg IM X1 ONE Vital Signs Vital signs: Vital Signs Temperature 98 F 12/03/24 23:17 Pulse Rate 100 12/03/24 23:17 Respiratory Rate 18 12/03/24 23:17 Blood Pressure 121/70 12/03/24 23:17 Pulse Oximetry (%) 100 12/03/24 23:17 Oxygen Delivery Method Room Air 12/03/24 23:17 100% room air within normal limits Back Pain / Injury MDM Narrative MDM Narrative:: 44-year-old male with past medical history of chronic back pain presents emergency department complaining of low back pain that is been ongoing for several years. Patient denies any fever, chills, dysuria, vomiting, bowel or bladder dysfunction, or saddle anesthesia. Positive straight leg right and left. Patient is afebrile and no tachycardia. Patient appears nontoxic and is hemodynamic stable. Patient data External records reviewed:: [facility] previous records Clinical information provided by:: patient Social determinants that could affect healthcare access:: housing Patient has the following chronic illnesses:: See chart How is presenting disease/condition affected by chronic disease/condition?: uneffected by Evaluation data The following diagnostics were reviewed and interpreted by me:: other (specify) (N/A) Lab and/or radiology exams considered but not ordered:: n/a Interpretation Summary: n/a Medications / Prescriptions Medications or Prescriptions considered but not ordered:: Ordered Medication administrations:: Medication Administration History Discontinued Medications Ketorolac Tromethamine (Ketorolac Inj 60 Mg/2 Ml Vial) 30 mg IM X1 ONE Stop: 12/03/24 23:32 Last Admin: 12/03/24 23:43 Dose: 30 mg Documented By: KG Interpreted by me Consultations Consultation(s) initiated? (list below): No Diagnosis Differential diagnosis back pain/injury: lumbar radiculopathy, sciatica, strain of lumbar region, renal colic, pyelonephritis, thoracic back pain, AAA and discitis Most likely diagnosis given after review of the tests above:: Chronic back pain Admission Indicated Admission indicated?: not indicated Admission Request Was there a request for admission?: No Disposition Plan Disposition Plan: Discharge Discharge Attestation Discharge Attestation: The patient and all family members were given an opportunity to ask questions and understood the discharge instructions. Discharge instructions specifically effects, indications for sooner follow up or return to the emergency department, and the expected course of current diagnosis. Patient condition: Stable Discharge Plan Plan Patient Disposition: HOME (Self Care) Disposition Comment: Stable Prescriptions/Referrals Prescriptions/Med Rec: New acetaminophen 500 mg capsule 500 mg PO Q6H PRN (Reason: pain) Qty: 30 0RF No Action naproxen 500 mg tablet 500 mg PO BID PRN (Reason: pain) Qty: 30 0RF cyclobenzaprine 5 mg tablet 5 mg PO TID PRN (Reason: muscle spasm) Qty: 30 0RF naproxen 500 mg tablet 500 mg PO BID PRN (Reason: pain) Qty: 30 0RF baclofen 10 mg tablet 10 mg PO BID PRN (Reason: muscle spasm) Qty: 30 0RF ibuprofen 800 mg tablet 800 mg PO TID PRN (Reason: pain) Qty: 30 0RF ibuprofen 800 mg tablet 800 mg PO TID PRN (Reason: pain) Qty: 30 0RF ibuprofen 600 mg tablet 600 mg PO Q6H PRN (Reason: pain) Qty: 30 0RF ibuprofen 600 mg tablet 600 mg PO Q8H PRN (Reason: pain) Qty: 20 0RF sulfamethoxazole-trimethoprim [Bactrim DS] 800-160 mg tablet 1 tab PO BID Qty: 14 0RF naproxen 500 mg tablet 500 mg PO BID PRN (Reason: pain) Qty: 30 0RF tamsulosin [Flomax] 0.4 mg capsule 0.4 mg PO QDAY Qty: 30 0RF ibuprofen 600 mg tablet 600 mg PO Q6H PRN (Reason: pain) Qty: 30 0RF methocarbamol 500 mg tablet 1,000 mg PO Q8H PRN (Reason: pain) Qty: 30 0RF naproxen [Naprosyn] 500 mg tablet 500 mg PO BID Qty: 14 0RF ibuprofen 600 mg tablet 600 mg PO Q6H PRN (Reason: fever or pain) Qty: 30 0RF cyclobenzaprine 5 mg tablet 5 mg PO TID PRN (Reason: muscle spasm) Qty: 14 0RF naproxen 500 mg tablet 500 mg PO BID PRN (Reason: pain) Qty: 30 0RF cyclobenzaprine 5 mg tablet 5 mg PO TID PRN (Reason: muscle spasm) Qty: 30 0RF Problem List Clinical Impression: Chronic back pain Patient/Caregiver Discharge Instructions Discharge Activity: activity as tolerated Education Materials: Anatomy of a Normal Spine, Back Basics: A Healthy Spine Additional Instructions: Plenty of fluids and get plenty of rest. Take Tylenol or ibuprofen as needed for pain. Follow-up with primary care provider in 2 to 3 days. Return to emergency department for any worsening symptoms or as needed. Print Language: [place] Stand Alone Forms: Tami Award Info., Patient Portal Info Letter PA/MASS SPECTROMETRY MANAGER Supervising Physician PA/MASS SPECTROMETRY MANAGER Supervising Physician: Dr. Del Cid
[2024-12-03] MEDS: KETOROLAC INJ 60 MG/2 ML VIAL 30 MG IM (23:43)
[2024-12-03 23:53] VITALS: RESP 19
== END 2024-12-03 23:53 | disposition home or self-care (01) ==
LOC: SERX 12-04 00:48
PROVIDERS: Emergency Provider Emergency Medicine; PCP Family Medicine
DX: G89.29 Other chronic pain (principal); M54.50 Low back pain, unspecified
CPT/HCPCS: 96372; 99283; J1885

== ENCOUNTER 2024-12-07 08:43 | Emergency (ER) | payer MEDICAID, SELFPAY ==
[2024-12-07 08:44] VITALS: BMI 27.8
[2024-12-07 08:51] VITALS: BP 111/76; PULSE 82; RESP 18; TEMP 36.6; O2SAT 99
--- NOTE | 2024-12-07 08:56 | EDNOTE_ITS ---
<Statement entered by Annemarie Cortez MD - 12/07/24 15:35> As co-signing physician, I was present and available for consult prn. I concur with the plan and care as documented by the midlevel provider. ED Back Injury Pain RME/HPI General Chief Complaint: Back Pain/Injury Stated Complaint: BACK PAIN SINCE 0700 Time Seen by Provider: 12/07/24 08:48 Arrival date/time: 12/07/24 08:43 44-year-old male well-known to me presents the emergency department today requesting food and Toradol shot patient is homeless reports he has been unable to get food this morning and that is why he is actually here. Patient reports no saddle anesthesia no loss of bowel or bladder no fever nausea vom iting Limitations: no limitations Related Data Previous Rx's ?Medication ?Instructions ?Recorded sulfamethoxazole 800 1 tab PO BID #14 tabs 03/09/23 mg-trimethoprim 160 mg tablet (Bactrim DS) cyclobenzaprine 5 mg tablet 5 mg PO TID PRN muscle spasm #30 07/23/23 tabs naproxen 500 mg tablet 500 mg PO BID PRN pain #30 tabs 07/23/23 naproxen 500 mg tablet 500 mg PO BID PRN pain #30 tabs 08/08/23 tamsulosin 0.4 mg capsule (Flomax) 0.4 mg PO QDAY #30 caps 08/08/23 baclofen 10 mg tablet 10 mg PO BID PRN muscle spasm #30 08/14/23 tabs naproxen 500 mg tablet 500 mg PO BID PRN pain #30 tabs 08/14/23 ibuprofen 800 mg tablet 800 mg PO TID PRN pain #30 tabs 08/28/23 ibuprofen 600 mg tablet 600 mg PO Q6H PRN pain #30 tabs 01/27/24 methocarbamol 500 mg tablet 1,000 mg (2 x 500 mg) PO Q8H PRN 01/27/24 pain #30 tabs naproxen 500 mg tablet (Naprosyn) 500 mg PO BID #14 tabs 03/15/24 ibuprofen 800 mg tablet 800 mg PO TID PRN pain #30 tabs 04/02/24 cyclobenzaprine 5 mg tablet 5 mg PO TID PRN muscle spasm #14 04/07/24 tabs ibuprofen 600 mg tablet 600 mg PO Q6H PRN fever or pain 04/07/24 #30 tabs ibuprofen 600 mg tablet 600 mg PO Q6H PRN pain #30 tabs 04/07/24 cyclobenzaprine 5 mg tablet 5 mg PO TID PRN muscle spasm #30 04/11/24 tabs naproxen 500 mg tablet 500 mg PO BID PRN pain #30 tabs 04/11/24 ibuprofen 600 mg tablet 600 mg PO Q8H PRN pain #20 tabs 11/03/24 acetaminophen 500 mg capsule 500 mg PO Q6H PRN pain #30 caps 12/03/24 Allergies Allergy/AdvReac Type Severity Reaction Status Date / Time No Known Allergies Allergy Verified 12/07/24 08:47 Review of Systems Review of Systems Systems Reviewed: All systems reviewed, normal except as documented Constitutional Constitutional: Reports system reviewed and no additional complaints, except as documented, Denies fever(s) and Denies headache(s) Eyes Eyes: Reports system reviewed and no additional complaints, except as documented and Denies blurry vision ENT Ears, Nose, Mouth, and Throat: Reports system reviewed and no additional complaints, except as documented, Denies headache(s), Denies nasal congestion and Denies nasal discharge Cardiovascular Cardiovascular: Reports system reviewed and no additional complaints, except as documented, Denies chest pain and Denies dyspnea Respiratory Respiratory: Reports system reviewed and no additional complaints, except as documented, Denies chest congestion, Denies cough and Denies dyspnea Gastrointestinal Gastrointestinal: Reports system reviewed and no additional complaints, except as documented and Denies abdominal pain Musculoskeletal Musculoskeletal: Reports system reviewed and no additional complaints, except as documented, Reports back pain and Denies deformity Integumentary/Breasts Skin/Breast: Reports system reviewed and no additional complaints, except as documented and Denies rash Neurologic Neurologic: Reports system reviewed and no additional complaints, except as do cumented, Reports as per HPI and Denies headache(s) Past Medical History Past Medical History NEUROLOGIC: Negative Neurological Disorders ED Exam General Limitations: Present no limitations General appearance: Present alert and in no apparent distress Head Head exam: Present atraumatic, normocephalic and normal inspection Eye Eye exam: Present normal appearance, PERRL and EOMI; Absent conjunctival injection ENT ENT exam: Present normal exam, normal oropharynx and mucous membranes moist Neck Neck exam: Present normal inspection, full ROM and trachea midline Chest Chest inspection: Present normal inspection and symmetric chest wall rise Respiratory Respiratory exam: Present normal lung sounds bilaterally; Absent respiratory distress Cardiovascular Cardiovascular exam: Present regular rate, normal rhythm and normal heart sounds Abdominal Exam Abdominal exam: Present soft and normal bowel sounds; Absent distention, tenderness, guarding, rebound or rigidity Extremities Exam Extremities exam: Present normal inspection and full ROM Back Exam Back exam: Present normal inspection, full ROM, tenderness, muscle spasm and paraspinal tenderness; Absent CVA tenderness (R) or CVA tenderness (L) Neurological Exam Neurological exam: Present alert, oriented X3 and CN II-XII intact Psychiatric Psychiatric exam: Present normal affect and normal mood Skin Skin exam: Present warm, dry, intact and normal color Course Quality Measures none Vital Signs Vital signs: Vital Signs Temperature 97.8 F 12/07/24 08:51 Pulse Rate 82 12/07/24 08:51 Respiratory Rate 18 12/07/24 08:51 Blood Pressure 111/76 12/07/24 08:51 Pulse Oximetry (%) 99 12/07/24 08:51 Oxygen Delivery Method Room Air 12/07/24 08:51 O2 saturation 99% room air within normal limits Back Pain / Injury MDM Narrative MDM Narrative:: 44-year-old male well-known to me presents the emergency department today requesting food and Toradol shot patient is homeless reports he has been unable to get food this morning and that is why he is actually here. 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 Patient discharged home in no distress to follow-up with primary care doctor in the next 24 to 48 hours and for any worsening symptoms to return to the ER immediately Patient data External records reviewed:: [facility] previous records Clinical information provided by:: patient Social determinants that could affect healthcare access:: substance use Patient has the following chronic illnesses:: Substance abuse How is presenting disease/condition affected by chronic disease/condition?: no chronic disease Evaluation data The following diagnostics were reviewed and interpreted by me:: other (specify) (N/A) Lab and/or radiology exams considered but not ordered:: Consider not ordered Interpretation Summary: N/A Medications / Prescriptions Medications or Prescriptions considered but not ordered:: No meds no meds Medication administrations:: No meds Consultations Consultation(s) initiated? (list below): No Diagnosis Differential diagnosis back pain/injury: lumbar radiculopathy, strain of lumbar region and discitis Most likely diagnosis given after review of the tests above:: Pain Admission Indicated Admission indicated?: not indicated Admission Request Was there a request for admission?: No Disposition Plan Disposition Plan: Discharge Discharge Attestation Discharge Attestation: The patient and all family members were given an opportunity to ask questions and understood the discharge instructions. Discharge instructions specifically effects, indications for sooner follow up or return to the emergency department, and the expected course of current diagnosis. Patient condition: Stable Discharge Plan Plan Patient Disposition: HOME (Self Care) Disposition Comment: Stable Prescriptions/Referrals Prescriptions/Med Rec: No Action naproxen 500 mg tablet 500 mg PO BID PRN (Reason: pain) Qty: 30 0RF cyclobenzaprine 5 mg tablet 5 mg PO TID PRN (Reason: muscle spasm) Qty: 30 0RF naproxen 500 mg tablet 500 mg PO BID PRN (Reason: pain) Qty: 30 0RF baclofen 10 mg tablet 10 mg PO BID PRN (Reason: muscle spasm) Qty: 30 0RF ibuprofen 800 mg tablet 800 mg PO TID PRN (Reason: pain) Qty: 30 0RF ibuprofen 800 mg tablet 800 mg PO TID PRN (Reason: pain) Qty: 30 0RF ibuprofen 600 mg tablet 600 mg PO Q6H PRN (Reason: pain) Qty: 30 0RF ibuprofen 600 mg tablet 600 mg PO Q8H PRN (Reason: pain) Qty: 20 0RF acetaminophen 500 mg capsule 500 mg PO Q6H PRN (Reason: pain) Qty: 30 0RF sulfamethoxazole-trimethoprim [Bactrim DS] 800-160 mg tablet 1 tab PO BID Qty: 14 0RF naproxen 500 mg tablet 500 mg PO BID PRN (Reason: pain) Qty: 30 0RF tamsulosin [Flomax] 0.4 mg capsule 0.4 mg PO QDAY Qty: 30 0RF ibuprofen 600 mg tablet 600 mg PO Q6H PRN (Reason: pain) Qty: 30 0RF methocarbamol 500 mg tablet 1,000 mg PO Q8H PRN (Reason: pain) Qty: 30 0RF naproxen [Naprosyn] 500 mg tablet 500 mg PO BID Qty: 14 0RF ibuprofen 600 mg tablet 600 mg PO Q6H PRN (Reason: fever or pain) Qty: 30 0RF cyclobenzaprine 5 mg tablet 5 mg PO TID PRN (Reason: muscle spasm) Qty: 14 0RF naproxen 500 mg tablet 500 mg PO BID PRN (Reason: pain) Qty: 30 0RF cyclobenzaprine 5 mg tablet 5 mg PO TID PRN (Reason: muscle spasm) Qty: 30 0RF Problem List Clinical Impression: Homeless, Chronic back pain Patient/Caregiver Discharge Instructions Education Materials: Medicine for Pain Additional Instructions: Please follow up with your primary care doctor in the next 24-48hrs for any worsening symptoms return here immediately Print Language: Greek Stand Alone Forms: Tami Award Info., Patient Portal Info Letter PA/ATOMIC WELDER Supervising Physician PA/ATOMIC WELDER Supervising Physician: Dr. CORTEZ
== END 2024-12-07 09:18 | disposition home or self-care (01) ==
LOC: SERX 09:02
PROVIDERS: Emergency Provider Emergency Medicine; PCP Family Medicine
DX: G89.29 Other chronic pain (principal); M54.9 Dorsalgia, unspecified; Z59.00 Homelessness unspecified
CPT/HCPCS: 99281

== ENCOUNTER 2024-12-09 17:54 | Emergency (ER) | payer MEDICAID, SELFPAY ==
[2024-12-09 17:54] VITALS: BMI 28.1
--- NOTE | 2024-12-09 19:40 | PC.NURSE ---
called pt in er lobby and outside of er and no answer at this time.
--- NOTE | 2024-12-09 19:55 | PC.NURSE ---
called pt in er lobby and outside of er and no answer at this time.
--- NOTE | 2024-12-09 20:10 | PC.NURSE ---
called pt in er lobby and outside of er and no answer at this time.
--- NOTE | 2024-12-09 22:00 | PC.NURSE ---
PT IS BACK TO BE SEEN.
--- NOTE | 2024-12-09 22:43 | PD.EDLOWEX ---
Lower Extremity Injury RME/HPI General Chief Complaint: Extremity Injury, Lower Stated Complaint: LEG PAIN x 2 DAYS, NO INJURY Time Seen by Provider: 12/09/24 17:57 Arrival date/time: 12/09/24 17:54 Limitations: no limitations RME / HPI RME / HPI Narrative: Dr. [facility] Main ED Evaluation: 44yo male with a history of CVA, HLD presents to the ED for a chief complaint of BLE pain x 2 days. Patient states he had a stroke last year and gets cramps when he walks a lot. He is here requesting Toradol and a sandwich. He denies any trauma or injuries. Denies any other associated symptoms. No known allergies. Related Data Previous Rx's ?Medication ?Instructions ?Recorded sulfamethoxazole 800 1 tab PO BID #14 tabs 03/09/23 mg-trimethoprim 160 mg tablet (Bactrim DS) cyclobenzaprine 5 mg tablet 5 mg PO TID PRN muscle spasm #30 07/23/23 tabs naproxen 500 mg tablet 500 mg PO BID PRN pain #30 tabs 07/23/23 naproxen 500 mg tablet 500 mg PO BID PRN pain #30 tabs 08/08/23 tamsulosin 0.4 mg capsule (Flomax) 0.4 mg PO QDAY #30 caps 08/08/23 baclofen 10 mg tablet 10 mg PO BID PRN muscle spasm #30 08/14/23 tabs naproxen 500 mg tablet 500 mg PO BID PRN pain #30 tabs 08/14/23 ibuprofen 800 mg tablet 800 mg PO TID PRN pain #30 tabs 08/28/23 ibuprofen 600 mg tablet 600 mg PO Q6H PRN pain #30 tabs 01/27/24 methocarbamol 500 mg tablet 1,000 mg (2 x 500 mg) PO Q8H PRN 01/27/24 pain #30 tabs naproxen 500 mg tablet (Naprosyn) 500 mg PO BID #14 tabs 03/15/24 ibuprofen 800 mg tablet 800 mg PO TID PRN pain #30 tabs 04/02/24 cyclobenzaprine 5 mg tablet 5 mg PO TID PRN muscle spasm #14 04/07/24 tabs ibuprofen 600 mg tablet 600 mg PO Q6H PRN fever or pain 04/07/24 #30 tabs ibuprofen 600 mg tablet 600 mg PO Q6H PRN pain #30 tabs 04/07/24 cyclobenzaprine 5 mg tablet 5 mg PO TID PRN muscle spasm #30 04/11/24 tabs naproxen 500 mg tablet 500 mg PO BID PRN pain #30 tabs 04/11/24 ibuprofen 600 mg tablet 600 mg PO Q8H PRN pain #20 tabs 11/03/24 acetaminophen 500 mg capsule 500 mg PO Q6H PRN pain #30 caps 12/03/24 Allergies Allergy/AdvReac Type Severity Reaction Status Date / Time No Known Allergies Allergy Verified 12/09/24 17:56 Review of Systems Review of Systems Systems Reviewed: All systems reviewed, normal except as documented Past Medical History Past Medical History NEUROLOGIC: Positive Cerebrovascular Accident; Negative Neurological Disorders CARDIAC: Positive Myocardial Infarction and Hypercholesterolemia; Negative Cardiac Disorders or Congestive Heart Failure RESPIRATORY: Negative Chronic Obstructive Pulmonary Disease (COPD) GASTROINTESTINAL: Negative Gastrointestinal Disorders GENITOURINARY: Negative Genitourinary Disorders or Renal Disease MUSCULOSKELETAL: Negative Musculoskeletal Disorders ENDOCRINE: Negative Endocrine Disorders, Diabetes Mellitus Type 1 or Diabetes Mellitus Type 2 HEMATOLOGIC: Negative Blood Disorders OTHER HISTORY: Negative Autoimmune Disease or Clostridium Difficile Social History SMOKING STATUS: Heavy (> 1 pack/day) SUBSTANCE USE: methamphetamine ED Exam General Limitations: Present no limitations General appearance: Present alert, in no apparent distress and other (disheveled appearing, talking in full sentences) Head Head exam: Present atraumatic Eye Eye exam: Present normal appearance, PERRL and EOMI ENT ENT exam: Present normal exam, normal oropharynx and mucous membranes moist Neck Neck exam: Present normal inspection, full ROM and trachea midline Chest Chest inspection: Present normal inspection and symmetric chest wall rise Respiratory Respiratory exam: Present normal lung sounds bilaterally Cardiovascular Cardiovascular exam: Present regular rate, normal rhythm and normal heart sounds Abdominal Exam Abdominal exam: Present soft and normal bowel sounds Extremities Exam Extremities exam: Present normal inspection and full ROM; Absent pedal edema Back Exam Back exam: Present normal inspection and full ROM Neurological Exam Neurological exam: Present alert, oriented X3 and CN II-XII intact Psychiatric Psychiatric exam: Present normal affect and normal mood Skin Skin exam: Present warm, dry, intact and normal color Course Quality Measures none Vital Signs Vital signs: Vital Signs Temperature 97.8 F 12/10/24 00:02 Pulse Rate 67 12/10/24 00:02 Respiratory Rate 17 12/10/24 00:02 Blood Pressure 141/85 H 12/10/24 00:02 Pulse Oximetry (%) 100 12/10/24 00:02 Oxygen Delivery Method Room Air 12/10/24 00:02 Extremity Injury, Lower Patient data External records reviewed:: [facility] previous records (Per chart review, patient was seen here on 12/07/24 for chronic low back pain.) Clinical information provided by:: patient Social determinants that could affect healthcare access:: housing (Pt is homeless.) Patient has the following chronic illnesses:: CVA, HLD How is presenting disease/condition affected by chronic disease/condition?: caused by Evaluation data The following diagnostics were reviewed and interpreted by me:: other (specify) (none) Lab and/or radiology exams considered but not ordered:: none Interpretation Summary: none Medications / Prescriptions Medications or Prescriptions considered but not ordered:: none Medication administrations:: see above Consultations Consultation(s) initiated? (list below): No Diagnosis Extremity Injury, Lower Differential Diagnosis: other (muscle cramps, electrolyte abnormality, homelessness) Most likely diagnosis given after review of the tests above:: see below Admission Indicated Admission indicated?: not indicated Admission Request Was there a request for admission?: No Disposition Plan Disposition Plan: Discharge Discharge Attestation Discharge Attestation: The patient and all family members were given an opportunity to ask questions and understood the discharge instructions. Discharge instructions specifically effects, indications for sooner follow up or return to the emergency department, and the expected course of current diagnosis. Patient condition: Stable Discharge Plan Plan Patient Disposition: HOME (Self Care) Patient condition on transfer: Stable Prescriptions/Referrals Prescriptions/Med Rec: No Action naproxen 500 mg tablet 500 mg PO BID PRN (Reason: pain) Qty: 30 0RF cyclobenzaprine 5 mg tablet 5 mg PO TID PRN (Reason: muscle spasm) Qty: 30 0RF naproxen 500 mg tablet 500 mg PO BID PRN (Reason: pain) Qty: 30 0RF baclofen 10 mg tablet 10 mg PO BID PRN (Reason: muscle spasm) Qty: 30 0RF ibuprofen 800 mg tablet 800 mg PO TID PRN (Reason: pain) Qty: 30 0RF ibuprofen 800 mg tablet 800 mg PO TID PRN (Reason: pain) Qty: 30 0RF ibuprofen 600 mg tablet 600 mg PO Q6H PRN (Reason: pain) Qty: 30 0RF ibuprofen 600 mg tablet 600 mg PO Q8H PRN (Reason: pain) Qty: 20 0RF acetaminophen 500 mg capsule 500 mg PO Q6H PRN (Reason: pain) Qty: 30 0RF sulfamethoxazole-trimethoprim [Bactrim DS] 800-160 mg tablet 1 tab PO BID Qty: 14 0RF naproxen 500 mg tablet 500 mg PO BID PRN (Reason: pain) Qty: 30 0RF tamsulosin [Flomax] 0.4 mg capsule 0.4 mg PO QDAY Qty: 30 0RF ibuprofen 600 mg tablet 600 mg PO Q6H PRN (Reason: pain) Qty: 30 0RF methocarbamol 500 mg tablet 1,000 mg PO Q8H PRN (Reason: pain) Qty: 30 0RF naproxen [Naprosyn] 500 mg tablet 500 mg PO BID Qty: 14 0RF ibuprofen 600 mg tablet 600 mg PO Q6H PRN (Reason: fever or pain) Qty: 30 0RF cyclobenzaprine 5 mg tablet 5 mg PO TID PRN (Reason: muscle spasm) Qty: 14 0RF naproxen 500 mg tablet 500 mg PO BID PRN (Reason: pain) Qty: 30 0RF cyclobenzaprine 5 mg tablet 5 mg PO TID PRN (Reason: muscle spasm) Qty: 30 0RF Problem List Clinical Impression: Homelessness Patient/Caregiver Discharge Instructions Print Language: Maori Stand Alone Forms: Tami Award Info., Patient Portal Info Letter
[2024-12-10 00:02] VITALS: BP 141/85; PULSE 67; RESP 17; TEMP 36.6; O2SAT 100
== END 2024-12-09 23:56 | disposition home or self-care (01) ==
PROVIDERS: Emergency Provider Emergency Medicine
DX: M79.605 Pain in left leg (principal); M79.604 Pain in right leg; Z59.00 Homelessness unspecified
CPT/HCPCS: 99281

== ENCOUNTER 2024-12-15 17:24 | Emergency (ER) | payer MEDICAID, SELFPAY ==
[2024-12-15 17:28] VITALS: BP 150/80; PULSE 92; RESP 17; TEMP 36.8; O2SAT 99
[2024-12-15 17:38] VITALS: PULSE 100; RESP 18; O2SAT 96; BMI 27.8
--- NOTE | 2024-12-15 18:18 | EDNOTE_ITS ---
<Statement entered by Annemarie Cortez MD - 12/15/24 19:03> As co-signing physician, I was present and available for consult prn. I concur with the plan and care as documented by the midlevel provider. ED Extremity Problem RME/HPI General Chief complaint: Extremity Problem,Nontraumatic Stated complaint: BILATERAL LEG PAIN Time Seen by Provider: 12/15/24 17:38 Source: patient Arrival date/time: 12/15/24 17:24 44-year-old male presents to the emergency department complaining of bilateral leg pain has been ongoing for several years. Patient reports was seen yesterday, down to discharge with ibuprofen. Patient denies any fever, chills, chest pain, shortness of breath, vomiting, or any other associated symptom. Mode of arrival: ambulatory Limitations: no limitations Related Data Previous Rx's ?Medication ?Instructions ?Recorded sulfamethoxazole 800 1 tab PO BID #14 tabs 03/09/23 mg-trimethoprim 160 mg tablet (Bactrim DS) cyclobenzaprine 5 mg tablet 5 mg PO TID PRN muscle spasm #30 07/23/23 tabs naproxen 500 mg tablet 500 mg PO BID PRN pain #30 tabs 07/23/23 naproxen 500 mg tablet 500 mg PO BID PRN pain #30 tabs 08/08/23 tamsulosin 0.4 mg capsule (Flomax) 0.4 mg PO QDAY #30 caps 08/08/23 baclofen 10 mg tablet 10 mg PO BID PRN muscle spasm #30 08/14/23 tabs naproxen 500 mg tablet 500 mg PO BID PRN pain #30 tabs 08/14/23 ibuprofen 800 mg tablet 800 mg PO TID PRN pain #30 tabs 08/28/23 ibuprofen 600 mg tablet 600 mg PO Q6H PRN pain #30 tabs 01/27/24 methocarbamol 500 mg tablet 1,000 mg (2 x 500 mg) PO Q8H PRN 01/27/24 pain #30 tabs naproxen 500 mg tablet (Naprosyn) 500 mg PO BID #14 tabs 03/15/24 ibuprofen 800 mg tablet 800 mg PO TID PRN pain #30 tabs 04/02/24 cyclobenzaprine 5 mg tablet 5 mg PO TID PRN muscle spasm #14 04/07/24 tabs ibuprofen 600 mg tablet 600 mg PO Q6H PRN fever or pain 04/07/24 #30 tabs ibuprofen 600 mg tablet 600 mg PO Q6H PRN pain #30 tabs 04/07/24 cyclobenzaprine 5 mg tablet 5 mg PO TID PRN muscle spasm #30 04/11/24 tabs naproxen 500 mg tablet 500 mg PO BID PRN pain #30 tabs 04/11/24 ibuprofen 600 mg tablet 600 mg PO Q8H PRN pain #20 tabs 11/03/24 acetaminophen 500 mg capsule 500 mg PO Q6H PRN pain #30 caps 12/03/24 acetaminophen 500 mg capsule 500 mg PO Q6H PRN pain #30 caps 12/15/24 Allergies Allergy/AdvReac Type Severity Reaction Status Date / Time No Known Allergies Allergy Verified 12/09/24 17:56 Review of Systems Review of Systems Systems Reviewed: All systems reviewed, normal except as documented Constitutional Constitutional: Reports system reviewed and no additional complaints, except as documented, Denies body ache(s), Denies chills and Denies fever(s) Eyes Eyes: Reports system reviewed and no additional complaints, except as documented and Denies change in vision ENT Ears, Nose, Mouth, and Throat: Reports system reviewed and no additional complai nts, except as documented, Denies disequilibrium, Denies dizziness, Denies sore throat and Denies vertigo Cardiovascular Cardiovascular: Reports system reviewed and no additional complaints, except as documented, Denies chest pain and Denies dyspnea Respiratory Respiratory: Reports system reviewed and no additional complaints, except as documented, Denies chest congestion, Denies cough and Denies dyspnea Gastrointestinal Gastrointestinal: Reports system reviewed and no additional complaints, except as documented, Denies abdominal pain, Denies nausea and Denies vomiting Musculoskeletal Musculoskeletal: Reports system reviewed and no additional complaints, except as documented, Denies abnormal gait and Reports arthralgias Integumentary/Breasts Skin/Breast: Reports system reviewed and no additional complaints, except as documented, Denies erythema, Denies rash and Denies wounds Neurologic Neurologic: Reports system reviewed and no additional complaints, except as documented, Denies abnormal gait, Denies disequilibrium, Denies dizziness and Denies vertigo Past Medical History Past Medical History NEUROLOGIC: Positive Cerebrovascular Accident; Negative Neurological Disorders CARDIAC: Positive Myocardial Infarction and Hypercholesterolemia; Negative Cardiac Disorders or Congestive Heart Failure RESPIRATORY: Negative Chronic Obstructive Pulmonary Disease (COPD) GASTROINTESTINAL: Negative Gastrointestinal Disorders GENITOURINARY: Negative Genitourinary Disorders or Renal Disease MUSCULOSKELETAL: Negative Musculoskeletal Disorders ENDOCRINE: Negative Endocrine Disorders, Diabetes Mellitus Type 1 or Diabetes Mellitus Type 2 HEMATOLOGIC: Negative Blood Disorders OTHER HISTORY: Negative Autoimmune Disease or Clostridium Difficile Social History SMOKING STATUS: Current some day smoker SUBSTANCE USE: methamphetamine ED Exam General Limitations: Present no limitations General appearance: Present alert and in no apparent distress Head Head exam: Present atraumatic Eye Eye exam: Present normal appearance, PERRL and EOMI ENT ENT exam: Present normal exam, normal oropharynx and mucous membranes moist Neck Neck exam: Present normal inspection, full ROM and trachea midline Chest Chest inspection: Present normal inspection and symmetric chest wall rise Respiratory Respiratory exam: Present normal lung sounds bilaterally Cardiovascular Cardiovascular exam: Present regular rate, normal rhythm and normal heart sounds Abdominal Exam Abdominal exam: Present soft and normal bowel sounds Extremities Exam Extremities exam: Present normal inspection and full ROM Back Exam Back exam: Present normal inspection and full ROM Neurological Exam Neurological exam: Present alert, oriented X3 and CN II-XII intact Psychiatric Psychiatric exam: Present normal affect and normal mood Skin Skin exam: Present warm, dry, intact and normal color Course Quality Measures none Orders Category Date Time Status Ibuprofen Tab [Motrin Tab] Med 12/15/24 18:21 Discontinued 600 mg PO X1 ONE Vital Signs Vital signs: Vital Signs Temperature 98.2 F 12/15/24 17:28 Pulse Rate 92 12/15/24 17:28 Respiratory Rate 17 12/15/24 17:28 Blood Pressure 150/80 H 12/15/24 17:28 Pulse Oximetry (%) 99 12/15/24 17:28 Oxygen Delivery Method Room Air 12/15/24 17:28 99% room air within normal limits Extremity Problem MDM Narrative MDM Narrative:: 44-year-old male presents to the emergency department complaining of bilateral leg pain has been ongoing for several years. Patient reports was seen yesterday, down to discharge with ibuprofen. Patient denies any fever, chills, chest pain, shortness of breath, vomiting, or any other associated symptom. Patient data External records reviewed:: [facility] previous records Clinical information provided by:: patient Social determinants that could affect healthcare access:: substance use Patient has the following chronic illnesses:: See chart How is presenting disease/condition affected by chronic disease/condition?: exacerbated by Evaluation data The following diagnostics were reviewed and interpreted by me:: other (specify) (N/A) Lab and/or radiology exams considered but not ordered:: n/a Interpretation Summary: n/a Medications / Prescriptions Medications or Prescriptions considered but not ordered:: Ordered Medication administrations:: Medication Administration History Discontinued Medications Ibuprofen (Ibuprofen Tab 600 Mg Tablet) 600 mg PO X1 ONE Stop: 12/15/24 18:22 Given Consultations Consultation(s) initiated? (list below): No Diagnosis Extremity Problem Differential Diagnosis: gout, cellulitis, superficial thrombophlebitis, deep venous thrombosis of upper extremity and deep vein thrombosis of lower extremity Most likely diagnosis given after review of the tests above:: leg pain Admission Indicated Admission indicated?: not indicated Admission Request Was there a request for admission?: No Disposition Plan Disposition Plan: Discharge Discharge Attestation Discharge Attestation: The patient and all family members were given an opportunity to ask questions and understood the discharge instructions. Discharge instructions specifically effects, indications for sooner follow up or return to the emergency department, and the expected course of current diagnosis. Patient condition: Stable Discharge Plan Plan Patient Disposition: HOME (Self Care) Disposition Comment: Stable Prescriptions/Referrals Prescriptions/Med Rec: New acetaminophen 500 mg capsule 500 mg PO Q6H PRN (Reason: pain) Qty: 30 0RF No Action naproxen 500 mg tablet 500 mg PO BID PRN (Reason: pain) Qty: 30 0RF cyclobenzaprine 5 mg tablet 5 mg PO TID PRN (Reason: muscle spasm) Qty: 30 0RF naproxen 500 mg tablet 500 mg PO BID PRN (Reason: pain) Qty: 30 0RF baclofen 10 mg tablet 10 mg PO BID PRN (Reason: muscle spasm) Qty: 30 0RF ibuprofen 800 mg tablet 800 mg PO TID PRN (Reason: pain) Qty: 30 0RF ibuprofen 800 mg tablet 800 mg PO TID PRN (Reason: pain) Qty: 30 0RF ibuprofen 600 mg tablet 600 mg PO Q6H PRN (Reason: pain) Qty: 30 0RF ibuprofen 600 mg tablet 600 mg PO Q8H PRN (Reason: pain) Qty: 20 0RF acetaminophen 500 mg capsule 500 mg PO Q6H PRN (Reason: pain) Qty: 30 0RF sulfamethoxazole-trimethoprim [Bactrim DS] 800-160 mg tablet 1 tab PO BID Qty: 14 0RF naproxen 500 mg tablet 500 mg PO BID PRN (Reason: pain) Qty: 30 0RF tamsulosin [Flomax] 0.4 mg capsule 0.4 mg PO QDAY Qty: 30 0RF ibuprofen 600 mg tablet 600 mg PO Q6H PRN (Reason: pain) Qty: 30 0RF methocarbamol 500 mg tablet 1,000 mg PO Q8H PRN (Reason: pain) Qty: 30 0RF naproxen [Naprosyn] 500 mg tablet 500 mg PO BID Qty: 14 0RF ibuprofen 600 mg tablet 600 mg PO Q6H PRN (Reason: fever or pain) Qty: 30 0RF cyclobenzaprine 5 mg tablet 5 mg PO TID PRN (Reason: muscle spasm) Qty: 14 0RF naproxen 500 mg tablet 500 mg PO BID PRN (Reason: pain) Qty: 30 0RF cyclobenzaprine 5 mg tablet 5 mg PO TID PRN (Reason: muscle spasm) Qty: 30 0RF Referrals: Lavell (PCP),MD Cody [Primary Care Provider] - In 1 week Problem List Clinical Impression: Leg pain Patient/Caregiver Discharge Instructions Discharge Activity: activity as tolerated Education Materials: ED Myalgias Additional Instructions: Take Tylenol as needed for pain. Drink plenty of fluids and stay hydrated. Follow-up with primary care provider in 2 to 3 days. Return immediately to emergency department for any worsening symptoms or as needed. Print Language: French Stand Alone Forms: Tami Award Info., Patient Portal Info Letter PA/DRY ROOM ATTENDANT Supervising Physician PA/DEVYN Supervising Physician: Dr. Cortez
[2024-12-15] MEDS: IBUPROFEN TAB 600 MG TABLET PO (18:52)
== END 2024-12-15 18:55 | disposition home or self-care (01) ==
PROVIDERS: Emergency Provider Emergency Medicine; PCP Family Medicine
DX: M79.604 Pain in right leg (principal); M79.605 Pain in left leg
CPT/HCPCS: 99282; A9270

== ENCOUNTER 2024-12-15 22:43 | Emergency (ER) | payer MEDICAID, SELFPAY ==
[2024-12-15 22:44] VITALS: PULSE 88; O2SAT 98; BMI 26.6
[2024-12-15 23:19] VITALS: BP 140/95; PULSE 79; RESP 18; TEMP 36.9; O2SAT 99
--- NOTE | 2024-12-15 23:26 | PD.EDRME ---
Rapid Medical Screening Exam RME Arrival date/time: 12/15/24 22:43 44-year-old male with past medical history of recreational drug abuse and homelessness presents emergency department complaining of bilateral lower extremity pain. Chief Complaint: Extremity Problem,Nontraumatic Time Seen by Provider: 12/15/24 22:55 Vital signs: Vital Signs Temperature 98.4 F 12/15/24 23:19 Pulse Rate 79 12/15/24 23:19 Respiratory Rate 18 12/15/24 23:19 Blood Pressure 140/95 H 12/15/24 23:19 Pulse Oximetry (%) 99 12/15/24 23:19 Oxygen Delivery Method Room Air 12/15/24 23:19 Vital signs reviewed by provider: Yes
[2024-12-16] MEDS: ACETAMINOPHEN 500 MG TABLET 1000 MG PO
[2024-12-16 00:17] LABS: Basophils % (Auto) 0 % (0-2.5); Eosinophils # (Auto) 0.3 Thou/mm3 (0.0-0.5); Eosinophils % (Auto) 5 % (0-10); Hematocrit 41.9 % (41.0-53.0); Hemoglobin 13.7 g/dL (13.5-16.0); Immature Granulocytes % (Auto) 1 % (0-0); Immature Granulocytes Auto 0.05 Thou/mm3 (0.00-0.00); Lymphocytes # (Auto) 0.9 Thou/mm3 (1.0-4.8); Lymphocytes % (Auto) 13 % (10-50); Mean Corpuscular HGB Conc 32.7 g/dl (31.0-37.0); Mean Corpuscular Hemoglobin 30.2 pg (25.0-35.0); Mean Corpuscular Volume 92 fL (80-100); Monocytes # (Auto) 0.7 Thou/mm3 (0.0-0.8); Monocytes % (Auto) 10 % (0-12); Neutrophils # (Auto) 4.8 Thou/mm3 (1.8-7.7); Neutrophils % (Auto) 72 % (37-80); Nucleated Red Blood Cell % 0 /100 WBC (0); Platelet Count 232 Thou/mm3 (140-440); RDW Standard Deviation 47.6 fL (35.1-43.9); Red Blood Count 4.54 Miln/mm3 (4.50-5.90); White Blood Count 6.7 Thou/mm3 (3.8-10.6)
[2024-12-16 01:02] LABS: Alanine Aminotransferase 13 U/L (10-49); Albumin, Serum 4.4 gm/dL (3.5-5.0); Albumin/Globulin Ratio 1.6 (1.2-2.2); Alkaline Phosphatase 103 U/L (46-116); Anion Gap 7 (7-16); Aspartate Amino Transferase 15 U/L (0-34); BUN/Creatinine Ratio 26 Ratio (12-20); Bilirubin,Total 0.4 mg/dL (0.3-1.2); Blood Urea Nitrogen 23 mg/dL (9-23); Carbon Dioxide 22.6 mMol/L (20.0-31.0); Chloride 107 mMol/L (98-107); Creatinine (Component) 0.9 mg/dL (0.6-1.3); Estimated Creatinine Clearance 95.9 mL/min (>60); Globulin 2.7 gm/dL (2.3-3.5); Glucose 91 mg/dL (74-106); Osmolality,Calculated 277 (275-295); Potassium 3.7 mMol/L (3.4-5.1); Sodium 137 mMol/L (136-145); Total Protein 7.1 gm/dL (5.7-8.2); eGFR > 60 See Note
--- NOTE | 2024-12-16 02:04 | EDNOTE_ITS ---
<Statement entered by Annemaire Cortez MD - 12/16/24 04:27> As co-signing physician, I was present and available for consult prn. I concur with the plan and care as documented by the midlevel provider. ED Extremity Problem RME/HPI General Chief complaint: Extremity Problem,Nontraumatic Stated complaint: Bilateral leg pain Time Seen by Provider: 12/15/24 22:55 Source: patient Arrival date/time: 12/15/24 22:43 44-year-old male with past medical history of recreational drug abuse and homelessness presents emergency department complaining of bilateral lower extremity pain for several days. Patient was seen earlier today and discharged home. Patient returns to the ER reports medication initially helped but is still having some leg pain. Patient reports leg pain worsens with movement and improves with rest. Patient denies any fever, chills, vomiting, chest pain, shortness of breath, lower extremity edema, or any other associated symptom. Mode of arrival: ambulatory Limitations: no limitations RME / HPI RME / HPI Narrative: 12/15/24 22:43 44-year-old male with past medical history of recreational drug abuse and homelessness presents emergency department complaining of bilateral lower extremity pain. Related Data Previous Rx's ?Medication ?Instructions ?Recorded sulfamethoxazole 800 1 tab PO BID #14 tabs 03/09/23 mg-trimethoprim 160 mg tablet (Bactrim DS) cyclobenzaprine 5 mg tablet 5 mg PO TID PRN muscle spasm #30 07/23/23 tabs naproxen 500 mg tablet 500 mg PO BID PRN pain #30 tabs 07/23/23 naproxen 500 mg tablet 500 mg PO BID PRN pain #30 tabs 08/08/23 tamsulosin 0.4 mg capsule (Flomax) 0.4 mg PO QDAY #30 caps 08/08/23 baclofen 10 mg tablet 10 mg PO BID PRN muscle spasm #30 08/14/23 tabs naproxen 500 mg tablet 500 mg PO BID PRN pain #30 tabs 08/14/23 ibuprofen 800 mg tablet 800 mg PO TID PRN pain #30 tabs 08/28/23 ibuprofen 600 mg tablet 600 mg PO Q6H PRN pain #30 tabs 01/27/24 methocarbamol 500 mg tablet 1,000 mg (2 x 500 mg) PO Q8H PRN 03/09/24 pain #30 tabs naproxen 500 mg tablet (Naprosyn) 500 mg PO BID #14 tabs 03/15/24 ibuprofen 800 mg tablet 800 mg PO TID PRN pain #30 tabs 04/02/24 cyclobenzaprine 5 mg tablet 5 mg PO TID PRN muscle spasm #14 04/07/24 tabs ibuprofen 600 mg tablet 600 mg PO Q6H PRN fever or pain 04/07/24 #30 tabs ibuprofen 600 mg tablet 600 mg PO Q6H PRN pain #30 tabs 04/07/24 cyclobenzaprine 5 mg tablet 5 mg PO TID PRN muscle spasm #30 04/11/24 tabs naproxen 500 mg tablet 500 mg PO BID PRN pain #30 tabs 04/11/24 ibuprofen 600 mg tablet 600 mg PO Q8H PRN pain #20 tabs 11/03/24 acetaminophen 500 mg capsule 500 mg PO Q6H PRN pain #30 caps 12/03/24 acetaminophen 500 mg capsule 500 mg PO Q6H PRN pain #30 caps 12/15/24 Allergies Allergy/AdvReac Type Severity Reaction Status Date / Time No Known Allergies Allergy Verified 12/09/24 17:56 Review of Systems Review of Systems Systems Reviewed: All systems reviewed, normal except as documented Constitutional Constitutional: Reports system reviewed and no additional complaints, except as documented, Denies body ache(s), Denies chills and Denies fever(s) Eyes Eyes: Reports system reviewed and no additional complaints, except as documented and Denies change in vision ENT Ears, Nose, Mouth, and Throat: Reports system reviewed and no additional complaints, except as documented, Denies disequilibrium, Denies dizziness, Denies sore throat and Denies vertigo Cardiovascular Cardiovascular: Reports system reviewed and no additional complaints, except as documented, Denies chest pain and Denies dyspnea Respiratory Respiratory: Reports system reviewed and no additional complaints, except as documented, Denies chest congestion, Denies cough and Denies dyspnea Gastrointestinal Gastrointestinal: Reports system reviewed and no additional complaints, except as documented, Denies abdominal pain, Denies nausea and Denies vomiting Musculoskeletal Musculoskeletal: Reports system reviewed and no additional complaints, except as documented, Denies abnormal gait, Reports arthralgias and Reports other (Leg pain) Integumentary/Breasts Skin/Breast: Reports system reviewed and no additional complaints, except as documented, Denies erythema, Denies rash and Denies wounds Neurologic Neurologic: Reports system reviewed and no additional complaints, except as documented, Denies abnormal gait, Denies disequilibrium, Denies dizziness and Denies vertigo Past Medical History Past Medical History NEUROLOGIC: Positive Cerebrovascular Accident; Negative Neurological Disorders CARDIAC: Positive Myocardial Infarction and Hypercholesterolemia; Negative Cardiac Disorders or Congestive Heart Failure RESPIRATORY: Negative Chronic Obstructive Pulmonary Disease (COPD) GASTROINTESTINAL: Negative Gastrointestinal Disorders GENITOURINARY: Negative Genitourinary Disorders or Renal Disease MUSCULOSKELETAL: Negative Musculoskeletal Disorders ENDOCRINE: Negative Endocrine Disorders, Diabetes Mellitus Type 1 or Diabetes Mellitus Type 2 HEMATOLOGIC: Negative Blood Disorders OTHER HISTORY: Negative Autoimmune Disease or Clostridium Difficile Social History SMOKING STATUS: Current some day smoker SUBSTANCE USE: methamphetamine ED Exam General Limitations: Present no limitations General appearance: Present alert and in no apparent distress Head Head exam: Present atraumatic Eye Eye exam: Present normal appearance, PERRL and EOMI ENT ENT exam: Present normal exam, normal oropharynx and mucous membranes moist Neck Neck exam: Present normal inspection, full ROM and trachea midline Chest Chest inspection: Present normal inspection and symmetric chest wall rise Respiratory Respiratory exam: Present normal lung sounds bilaterally Cardiovascular Cardiovascular exam: Present regular rate, normal rhythm and normal heart sounds Abdominal Exam Abdominal exam: Present soft and normal bowel sounds Extremities Exam Extremities exam: Present normal inspection and full ROM Back Exam Back exam: Present normal inspection and full ROM Neurological Exam Neurological exam: Present alert, oriented X3 and CN II-XII intact Psychiatric Psychiatric exam: Present normal affect and normal mood Skin Skin exam: Present warm, dry, intact and normal color Course Quality Measures none Orders Category Date Time Status Bedside Influenza A&B Antigen Test NOW Care 12/15/24 23:30 Completed CBC Stat Lab 12/15/24 23:49 Completed CMP [Comprehensive Metabolic Panel] Stat Lab 12/15/24 23:49 Completed Drug Screen,Urine Stat Lab 12/15/24 23:26 Ordered Urinalysis, C/S if Indicated Stat Lab 12/15/24 23:26 Ordered Acetaminophen Tab [Tylenol ES Tab] Med 12/15/24 23:26 Discontinued 1,000 mg PO X1 ONE Vital Signs Vital signs: Vital Signs Temperature 98.4 F 12/15/24 23:19 Pulse Rate 79 12/15/24 23:19 Respiratory Rate 18 12/15/24 23:19 Blood Pressure 140/95 H 12/15/24 23:19 Pulse Oximetry (%) 99 12/15/24 23:19 Oxygen Delivery Method Room Air 12/15/24 23:19 99% room air within normal limits Extremity Problem MDM Narrative MDM Narrative:: 44-year-old male with past medical history of recreational drug abuse and homelessness presents emergency department complaining of bilateral lower ext remity pain for several days. Patient was seen earlier today and discharged home. Patient returns to the ER reports medication initially helped but is still having some leg pain. Patient reports leg pain worsens with movement and improves with rest. Patient denies any fever, chills, vomiting, chest pain, shortness of breath, lower extremity edema, or any other associated symptom. On exam bilateral lower extremities did not appear to be edematous or redness with no obvious lesions or signs of infection. Blood work ordered due to patient's second visit and rule out any elevated WBCs or electrolyte abnormalities. CBC was unremarkable for any leukocytosis. CMP was unremarkable for any elevated LFTs or gross electrolyte abnormalities. Patient declined to provide urinalysis. Patient resting comfortably in chair. Patient likely visiting ER due to environmental factors such as raining outside. Patient appears stable for discharge. Patient given clothing for weather. Patient data External records reviewed:: [facility] previous records Clinical information provided by:: patient Social determinants that could affect healthcare access:: housing Patient has the following chronic illnesses:: See chart How is presenting disease/condition affected by chronic disease/condition?: exacerbated by Evaluation data The following diagnostics were reviewed and interpreted by me:: lab results Lab and/or radiology exams considered but not ordered:: Ordered Interpretation Summary: Interpreted by me Medications / Prescriptions Medications or Prescriptions considered but not ordered:: Ordered Medication administrations:: Medication Administration History Discontinued Medications Acetaminophen (Acetaminophen 500 Mg Tablet) 1,000 mg PO X1 ONE Stop: 12/15/24 23:27 Last Admin: 12/16/24 00:00 Dose: 1,000 mg Documented By: Given Consultations Consultation(s) initiated? (list below): No Diagnosis Extremity Problem Differential Diagnosis: gout, cellulitis, superficial thrombophlebitis, deep venous thrombosis of upper extremity and deep vein thrombosis of lower extremity Most likely diagnosis given after review of the tests above:: Bilateral leg pain Admission Indicated Admission indicated?: not indicated Admission Request Was there a request for admission?: No Disposition Plan Disposition Plan: Discharge Discharge Attestation Discharge Attestation: The patient and all family members were given an opportunity to ask questions and understood the discharge instructions. Discharge instructions specifically effects, indications for sooner follow up or return to the emergency department, and the expected course of current diagnosis. Patient condition: Stable Discharge Plan Plan Patient Disposition: HOME (Self Care) Disposition Comment: Stable Prescriptions/Referrals Prescriptions/Med Rec: No Action naproxen 500 mg tablet 500 mg PO BID PRN (Reason: pain) Qty: 30 0RF cyclobenzaprine 5 mg tablet 5 mg PO TID PRN (Reason: muscle spasm) Qty: 30 0RF naproxen 500 mg tablet 500 mg PO BID PRN (Reason: pain) Qty: 30 0RF baclofen 10 mg tablet 10 mg PO BID PRN (Reason: muscle spasm) Qty: 30 0RF ibuprofen 800 mg tablet 800 mg PO TID PRN (Reason: pain) Qty: 30 0RF ibuprofen 800 mg tablet 800 mg PO TID PRN (Reason: pain) Qty: 30 0RF ibuprofen 600 mg tablet 600 mg PO Q6H PRN (Reason: pain) Qty: 30 0RF ibuprofen 600 mg tablet 600 mg PO Q8H PRN (Reason: pain) Qty: 20 0RF acetaminophen 500 mg capsule 500 mg PO Q6H PRN (Reason: pain) Qty: 30 0RF sulfamethoxazole-trimethoprim [Bactrim DS] 800-160 mg tablet 1 tab PO BID Qty: 14 0RF naproxen 500 mg tablet 500 mg PO BID PRN (Reason: pain) Qty: 30 0RF tamsulosin [Flomax] 0.4 mg capsule 0.4 mg PO QDAY Qty: 30 0RF ibuprofen 600 mg tablet 600 mg PO Q6H PRN (Reason: pain) Qty: 30 0RF methocarbamol 500 mg tablet 1,000 mg PO Q8H PRN (Reason: pain) Qty: 30 0RF naproxen [Naprosyn] 500 mg tablet 500 mg PO BID Qty: 14 0RF ibuprofen 600 mg tablet 600 mg PO Q6H PRN (Reason: fever or pain) Qty: 30 0RF cyclobenzaprine 5 mg tablet 5 mg PO TID PRN (Reason: muscle spasm) Qty: 14 0RF naproxen 500 mg tablet 500 mg PO BID PRN (Reason: pain) Qty: 30 0RF cyclobenzaprine 5 mg tablet 5 mg PO TID PRN (Reason: muscle spasm) Qty: 30 0RF acetaminophen 500 mg capsule 500 mg PO Q6H PRN (Reason: pain) Qty: 30 0RF Referrals: Lavell (PCP),MD Cody [Primary Care Provider] - In 1 week Problem List Clinical Impression: Bilateral leg pain Patient/Caregiver Discharge Instructions Discharge Activity: activity as tolerated Education Materials: ED Myalgias, ED RICE Additional Instructions: You have been provided a pamphlet with local resources available with phone numbers and address listed. Take Tylenol or ibuprofen as needed for pain. Follow-up with primary care provider in 2 to 3 days and request referral to physical therapy if symptoms persist. Return to the emergency department for any worsening symptoms or as needed. Print Language: Bermudian Stand Alone Forms: Tami Award Info., Patient Portal Info Letter PA/MATHEMATICAL PHYSICIST Supervising Physician PA/DEVYN Supervising Physician: Dr. Cortez
[2024-12-16 03:25] VITALS: BP 145/62; PULSE 78; RESP 18; TEMP 36.6; O2SAT 98
== END 2024-12-16 03:25 | disposition home or self-care (01) ==
PROVIDERS: Emergency Provider Emergency Medicine; PCP Family Medicine
DX: M79.604 Pain in right leg (principal); M79.605 Pain in left leg; Z59.00 Homelessness unspecified
CPT/HCPCS: 36415; 80053; 80307; 81001; 85025; 87400; 99283; A9270

== ENCOUNTER 2024-12-20 12:55 | Emergency (ER) | payer MEDICAID, SELFPAY ==
[2024-12-20 12:56] VITALS: PULSE 99; RESP 19; O2SAT 97
--- NOTE | 2024-12-20 13:02 | XR_ITS ---
Examination: Knee bilateral, 6 views Technique: Knee AP, lateral, oblique each knee total 6 views Date and time of exam: December 20, 2024 1320 hours INDICATIONS: Patient fell yesterday with injury to both knees, bilateral knee pain. FINDINGS: Mild osteopenia No fracture or dislocation involving either knee Small bilateral knee effusions No opaque foreign bodies IMPRESSION: No fracture or dislocation involving either knee
[2024-12-20 13:07] VITALS: BP 124/82; PULSE 62; RESP 18; TEMP 36.9; O2SAT 99; BMI 27.8
--- NOTE | 2024-12-20 13:15 | PD.EDEXREM ---
ED Extremity Problem RME/HPI General Chief complaint: Extremity Injury, Lower Stated complaint: Legs hurt, fell yesterday Time Seen by Provider: 12/20/24 12:59 Arrival date/time: 12/20/24 12:55 RME / HPI RME / HPI Narrative: This section includes all my notes and documentations, including HPI, PE, and ED course.? Stephen Gallardo MD HPI: 44 year old male with history of chronic pain presents to the ED for evaluation of bilateral leg pain after ground level mechanical fall yesterday. Pain described as aching in sensation, rating as moderate. Denies any head injury or LOC. Reports landing on his knees with bilateral knee pain. No other pain. No other complaints. ROS: All negative except as documented in HPI. Physical Exam: General:? Alert and oriented.??No acute distress. Eyes:? Conjunctivae and lids clear.?? ENT:? No nasal congestion.?? Neck:? Supple.?? Lungs:? No respiratory distress.?? Skin:? Warm and dry.?? Neuro:? Alert and oriented X 3.? Musculoskeletal: No tenderness of major joints or bones with no limited ROM. I reviewed all diagnostic test results. My interpretation of the knee x-rays is no fracture or dislocation involving either knee. At this point, diagnoses include?contusion of knee. Recommended supportive care. Based on my best medical judgment, made decision no further evaluation or treatment indicated at this time.? Patient understands and agrees to the discharge instructions customized and printed, see below. Discharge Instructions from Dr. Gallardo: --After evaluation, there is no broken bone. --To help the healing process of your knee contusions, minimal weight bearing and elevate above waist level for 3 days as much as possible.?? --Apply ice for 20 minutes every 2-3 hours today and tomorrow.? --Take Ibuprofen 800 mg every 6-8 hours today and tomorrow to help decrease swelling then as needed.? And cyclobenzaprine and lidocaine patches as needed. --Most importantly, see a private doctor on 12/23/2024 for recheck and further care. If you are not better, you will need more care not available here in the ER--such as MRI imaging, bone scan, physical therapy, and a referral to see a specialist.? To make sure you don't have major tears needing surgery--cannot see big tears on x-rays.?? --Seek immediate medical care with any concerns.?? Stephen Gallardo MD Related Data Previous Rx's ?Medication ?Instructions ?Recorded sulfamethoxazole 800 1 tab PO BID #14 tabs 03/09/23 mg-trimethoprim 160 mg tablet (Bactrim DS) cyclobenzaprine 5 mg tablet 5 mg PO TID PRN muscle spasm #30 07/23/23 tabs naproxen 500 mg tablet 500 mg PO BID PRN pain #30 tabs 07/23/23 naproxen 500 mg tablet 500 mg PO BID PRN pain #30 tabs 08/08/23 tamsulosin 0.4 mg capsule (Flomax) 0.4 mg PO QDAY #30 caps 08/08/23 baclofen 10 mg tablet 10 mg PO BID PRN muscle spasm #30 08/14/23 tabs naproxen 500 mg tablet 500 mg PO BID PRN pain #30 tabs 08/14/23 ibuprofen 800 mg tablet 800 mg PO TID PRN pain #30 tabs 08/28/23 ibuprofen 600 mg tablet 600 mg PO Q6H PRN pain #30 tabs 01/27/24 methocarbamol 500 mg tablet 1,000 mg (2 x 500 mg) PO Q8H PRN 01/27/24 pain #30 tabs naproxen 500 mg tablet (Naprosyn) 500 mg PO BID #14 tabs 03/15/24 ibuprofen 800 mg tablet 800 mg PO TID PRN pain #30 tabs 04/02/24 cyclobenzaprine 5 mg tablet 5 mg PO TID PRN muscle spasm #14 04/07/24 tabs ibuprofen 600 mg tablet 600 mg PO Q6H PRN fever or pain 04/07/24 #30 tabs ibuprofen 600 mg tablet 600 mg PO Q6H PRN pain #30 tabs 04/07/24 cyclobenzaprine 5 mg tablet 5 mg PO TID PRN muscle spasm #30 04/11/24 tabs naproxen 500 mg tablet 500 mg PO BID PRN pain #30 tabs 04/11/24 ibuprofen 600 mg tablet 600 mg PO Q8H PRN pain #20 tabs 11/03/24 acetaminophen 500 mg capsule 500 mg PO Q6H PRN pain #30 caps 12/03/24 acetaminophen 500 mg capsule 500 mg PO Q6H PRN pain #30 caps 12/15/24 cyclobenzaprine 5 mg tablet 5 mg PO TID PRN muscle spasm #15 12/20/24 tabs lidocaine 5 % topical patch 2 patch topical QDAY PRN pain #30 12/20/24 (Lidoderm) ea Allergies Allergy/AdvReac Type Severity Reaction Status Date / Time No Known Allergies Allergy Verified 12/23/24 10:22 Review of Systems Review of Systems Systems Reviewed: All systems reviewed, normal except as documented Past Medical History Past Medical History NEUROLOGIC: Positive Cerebrovascular Accident CARDIAC: Positive Myocardial Infarction and Hypercholesterolemia Social History SMOKING STATUS: Current every day smoker SUBSTANCE USE: methamphetamine ED Exam Narrative Physical exam: As noted in HPI Course Quality Measures none Orders Category Date Time Status XR knee BI 3V Stat Exams 12/20/24 13:02 Completed Tet,Diphth,Pertuss(Acell)-Tdap [Boostrix Vacc] Med 12/20/24 13:02 Discontinued 0.5 ml IMI .ONCE ONE Vital Signs Vital signs: Vital Signs Temperature 98.4 F 12/20/24 13:07 Pulse Rate 62 12/20/24 13:07 Respiratory Rate 18 12/20/24 13:07 Blood Pressure 124/82 12/20/24 13:07 Pulse Oximetry (%) 99 12/20/24 13:07 Oxygen Delivery Method Room Air 12/20/24 13:07 Pulse ox is 99% on room air which is adequate. Extremity Problem Patient data External records reviewed:: [facility] previous records (I reviewed ED visit on 12/16/2024) Clinical information provided by:: patient Social determinants that could affect healthcare access:: housing (Homeless) Patient has the following chronic illnesses:: chronic pain How is presenting disease/condition affected by chronic disease/condition?: exacerbated by Evaluation data The following diagnostics were reviewed and interpreted by me:: radiology exam(s) Lab and/or radiology exams considered but not ordered:: None Interpretation Summary: Knee x-ray shows no acute fracture or dislocation Medications / Prescriptions Medications or Prescriptions considered but not ordered:: none Medication administrations:: Medication Administration History Discontinued Medications Diphtheria/Tetanus/Acell Pertussis (Diphth,Pertuss(Acell),Tet Vac 0.5 Ml Vial) 0.5 ml IMi .ONCE ONE Stop: 12/20/24 13:03 Patient given tetanus vaccine Consultations Consultation(s) initiated? (list below): No Diagnosis Extremity Problem Differential Diagnosis: other (Fracture/contusion/sprain/strain) Most likely diagnosis given after review of the tests above:: Contusion of knee Admission Indicated Admission indicated?: not indicated Explain why admission is indicated or not indicated:: Does not meet admission criteria Admission Request Was there a request for admission?: No Admission Attestation Admission request attestation: No criteria for admission Disposition Plan Disposition Plan: Discharge Discharge Attestation Discharge Attestation: The patient and all family members were given an opportunity to ask questions and understood the discharge instructions. Discharge instructions specifically effects, indications for sooner follow up or return to the emergency department, and the expected course of current diagnosis. Patient condition: Stable Discharge Plan Plan Patient Disposition: HOME (Self Care) Prescriptions/Referrals Prescriptions/Med Rec: New lidocaine [Lidoderm] 5 % adhesive patch,medicated 2 patch topical QDAY PRN (Reason: pain) Qty: 30 0RF Rx Instructions: leave on most painful area for up to 12 hrs cyclobenzaprine 5 mg tablet 5 mg PO TID PRN (Reason: muscle spasm) Qty: 15 0RF No Action naproxen 500 mg tablet 500 mg PO BID PRN (Reason: pain) Qty: 30 0RF cyclobenzaprine 5 mg tablet 5 mg PO TID PRN (Reason: muscle spasm) Qty: 30 0RF naproxen 500 mg tablet 500 mg PO BID PRN (Reason: pain) Qty: 30 0RF baclofen 10 mg tablet 10 mg PO BID PRN (Reason: muscle spasm) Qty: 30 0RF ibuprofen 800 mg tablet 800 mg PO TID PRN (Reason: pain) Qty: 30 0RF ibuprofen 800 mg tablet 800 mg PO TID PRN (Reason: pain) Qty: 30 0RF ibuprofen 600 mg tablet 600 mg PO Q6H PRN (Reason: pain) Qty: 30 0RF ibuprofen 600 mg tablet 600 mg PO Q8H PRN (Reason: pain) Qty: 20 0RF acetaminophen 500 mg capsule 500 mg PO Q6H PRN (Reason: pain) Qty: 30 0RF sulfamethoxazole-trimethoprim [Bactrim DS] 800-160 mg tablet 1 tab PO BID Qty: 14 0RF naproxen 500 mg tablet 500 mg PO BID PRN (Reason: pain) Qty: 30 0RF tamsulosin [Flomax] 0.4 mg capsule 0.4 mg PO QDAY Qty: 30 0RF ibuprofen 600 mg tablet 600 mg PO Q6H PRN (Reason: pain) Qty: 30 0RF methocarbamol 500 mg tablet 1,000 mg PO Q8H PRN (Reason: pain) Qty: 30 0RF naproxen [Naprosyn] 500 mg tablet 500 mg PO BID Qty: 14 0RF ibuprofen 600 mg tablet 600 mg PO Q6H PRN (Reason: fever or pain) Qty: 30 0RF cyclobenzaprine 5 mg tablet 5 mg PO TID PRN (Reason: muscle spasm) Qty: 14 0RF naproxen 500 mg tablet 500 mg PO BID PRN (Reason: pain) Qty: 30 0RF cyclobenzaprine 5 mg tablet 5 mg PO TID PRN (Reason: muscle spasm) Qty: 30 0RF acetaminophen 500 mg capsule 500 mg PO Q6H PRN (Reason: pain) Qty: 30 0RF Referrals: No Primary/Family,Physician [Primary Care Provider] - In 1 week Problem List Clinical Impression: Contusion of knee Patient/Caregiver Discharge Instructions Discharge Activity: activity as tolerated Education Materials: ED Contusion, Lower Extremity Additional Instructions: Discharge Instructions from Dr. Gallardo: --After evaluation, there is no broken bone. --To help the healing process of your knee contusions, minimal weight bearing and elevate above waist level for 3 days as much as possible.?? --Apply ice for 20 minutes every 2-3 hours today and tomorrow.? --Take Ibuprofen 800 mg every 6-8 hours today and tomorrow to help decrease swelling then as needed.? And cyclobenzaprine and lidocaine patches as needed. --Most importantly, see a private doctor on 12/23/2024 for recheck and further care. If you are not better, you will need more care not available here in the ER--such as MRI imaging, bone scan, physical therapy, and a referral to see a specialist.? To make sure you don't have major tears needing surgery--cannot see big tears on x-rays.?? --Seek immediate medical care with any concerns.?? Print Language: Occitan Stand Alone Forms: [employer] Info., Patient Portal Info Letter
== END 2024-12-20 16:20 | disposition home or self-care (01) ==
PROVIDERS: Emergency Provider Emergency Medicine
DX: S80.00XA Contusion of unspecified knee, initial encounter (principal); S80.01XA Contusion of right knee, initial encounter; S80.02XA Contusion of left knee, initial encounter; W18.30XA Fall on same level, unspecified, initial encounter
CPT/HCPCS: 73562; 90471; 99282

== ENCOUNTER 2024-12-21 19:34 | Emergency (ER) | payer MEDICAID, SELFPAY ==
[2024-12-21 20:04] VITALS: BP 130/95; PULSE 87; RESP 20; TEMP 37.2; O2SAT 97
--- NOTE | 2024-12-21 20:23 | EDNOTE_ITS ---
ED Extremity Problem RME/HPI General Chief complaint: Extremity Injury, Lower Stated complaint: LEGS HURT Time Seen by Provider: 12/21/24 20:15 Arrival date/time: 12/21/24 19:34 44M with history of drug use, homelessness, and chronic back pain presents to ED with chronic lower back and leg pain. Patient denies fevers/chills, leg swelling, paresthesia, bowel/bladder incontinence, SOB dysuria, and hematuria. Limitations: no limitations Related Data Previous Rx's ?Medication ?Instructions ?Recorded sulfamethoxazole 800 1 tab PO BID #14 tabs mg-trimethoprim 160 mg tablet (Bactrim DS) cyclobenzaprine 5 mg tablet 5 mg PO TID PRN muscle spa sm #30 07/23/23 tabs naproxen 500 mg tablet 500 mg PO BID PRN pain #30 t abs 07/23/23 naproxen 500 mg tablet 500 mg PO BID PRN pain #30 t abs 08/08/23 tamsulosin 0.4 mg capsule (Flomax) 0.4 mg PO QDAY #30 caps 08/08/23 baclofen 10 mg tablet 10 mg PO BID PRN muscle spas m #30 08/14/23 tabs naproxen 500 mg tablet 500 mg PO BID PRN pain #30 t abs 08/14/23 ibuprofen 800 mg tablet 800 mg PO TID PRN pain #30 t abs 08/28/23 ibuprofen 600 mg tablet 600 mg PO Q6H PRN pain #30 t abs 01/27/24 methocarbamol 500 mg tablet 1,000 mg (2 x 500 mg) PO Q 8H PRN 01/27/24 pain #30 tabs naproxen 500 mg tablet (Naprosyn) 500 mg PO BID #14 ta bs 03/15/24 ibuprofen 800 mg tablet 800 mg PO TID PRN pain #30 t abs 04/02/24 cyclobenzaprine 5 mg tablet 5 mg PO TID PRN muscle spa sm #14 04/07/24 tabs ibuprofen 600 mg tablet 600 mg PO Q6H PRN fever or p ain 04/07/24 #30 tabs ibuprofen 600 mg tablet 600 mg PO Q6H PRN pain #30 t abs 04/07/24 cyclobenzaprine 5 mg tablet 5 mg PO TID PRN muscle spa sm #30 04/11/24 tabs naproxen 500 mg tablet 500 mg PO BID PRN pain #30 t abs 04/11/24 ibuprofen 600 mg tablet 600 mg PO Q8H PRN pain #20 t abs 11/03/24 acetaminophen 500 mg capsule 500 mg PO Q6H PRN pain #3 0 caps 12/03/24 acetaminophen 500 mg capsule 500 mg PO Q6H PRN pain #3 0 caps 12/15/24 cyclobenzaprine 5 mg tablet 5 mg PO TID PRN muscle spa sm #15 12/20/24 tabs lidocaine 5 % topical patch 2 patch topical QDAY PRN p ain #30 12/20/24 (Lidoderm) ea Allergies Allergy/AdvReac Type Severity Reaction Status Date / Time No Known Allergies Allergy Verified 12/09/24 17:56 Review of Systems Review of Systems Systems Reviewed: All systems reviewed, normal except as documented Constitutional Constitutional: Reports system reviewed and no additional complaints, except as documented, Denies fever(s) and Denies headache(s) ENT Ears, Nose, Mouth, and Throat: Denies disequilibrium and Denies headache(s) Cardiovascular Cardiovascular: Reports system reviewed and no additional complaints, except as documented, Denies chest pain and Denies dyspnea Respiratory Respiratory: Reports system reviewed and no additional complaints, except as documented, Denies cough and Denies dyspnea Gastrointestinal Gastrointestinal: Reports system reviewed and no additional complaints, except as documented, Denies abdominal pain, Denies nausea and Denies vomiting Musculoskeletal Musculoskeletal: Reports as per HPI and Reports arthralgias Neurologic Neurologic: Reports system reviewed and no additional complaints, except as documented, Denies confusion, Denies disequilibrium and Denies headache(s) Psychiatric Psychiatric: Denies confusion Past Medical History Past Medical History NEUROLOGIC: Positive Cerebrovascular Accident; Negative Neurological Disorders CARDIAC: Positive Myocardial Infarction and Hypercholesterolemia; Negative Cardiac Disorders or Congestive Heart Failure RESPIRATORY: Negative Chronic Obstructive Pulmonary Disease (COPD) GASTROINTESTINAL: Negative Gastrointestinal Disorders GENITOURINARY: Negative Genitourinary Disorders or Renal Disease MUSCULOSKELETAL: Negative Musculoskeletal Disorders ENDOCRINE: Negative Endocrine Disorders, Diabetes Mellitus Type 1 or Diabetes Mellitus Type 2 HEMATOLOGIC: Negative Blood Disorders OTHER HISTORY: Negative Autoimmune Disease or Clostridium Difficile Social History SMOKING STATUS: Current every day smoker SUBSTANCE USE: methamphetamine ED Exam General Limitations: Present no limitations General appearance: Present alert and in no apparent distress Head Head exam: Present atraumatic Eye Eye exam: Present normal appearance, PERRL and EOMI ENT ENT exam: Present normal exam, normal oropharynx and mucous membranes moist Neck Neck exam: Present normal inspection, full ROM and trachea midline Chest Chest inspection: Present normal inspection and symmetric chest wall rise Respiratory Respiratory exam: Present normal lung sounds bilaterally Cardiovascular Cardiovascular exam: Present regular rate, normal rhythm and normal heart sounds Abdominal Exam Abdominal exam: Present soft and normal bowel sounds Extremities Exam Extremities exam: Present normal inspection and full ROM Back Exam Back exam: Present normal inspection and full ROM Neurological Exam Neurological exam: Present alert, oriented X3 and CN II-XII intact Psychiatric Psychiatric exam: Present normal affect and normal mood Skin Skin exam: Present warm, dry, intact and normal color Course Quality Measures none Orders Category Date Time Status CYCLObenzaPRINE [Flexeril] Med 12/21/24 20:15 Discontinued 5 mg PO X1 ONE Ketorolac Inj [Toradol Inj] Med 12/21/24 20:15 Discontinued 60 mg IM X1 ONE Vital Signs Vital signs: Vital Signs Temperature 98.9 F 12/21/24 20:04 Pulse Rate 87 12/21/24 20:04 Respiratory Rate 20 12/21/24 20:04 Blood Pressure 130/95 H 12/21/24 20:04 Pulse Oximetry (%) 97 12/21/24 20:04 Oxygen Delivery Method Room Air 12/21/24 20:04 O2 at 97% on RA and WNLs Extremity Problem MDM Narrative MDM Narrative:: 44M with history of drug use, homelessness, and chronic back pain presents to ED with chronic lower back and leg pain. Patient denies fevers/chills, leg swelling, paresthesia, bowel/bladder incontinence, SOB dysuria, and hematuria. Physical exam reveals no flank/back tenderness. No leg swelling. Patient is afebrile, calm, and alert. Meds given. Patient data External records reviewed:: [facility] previous records Clinical information provided by:: patient Social determinants that could affect healthcare access:: substance use Patient has the following chronic illnesses:: drug use, homelessness, and chronic back pain How is presenting disease/condition affected by chronic disease/condition?: exacerbated by Evaluation data The following diagnostics were reviewed and interpreted by me:: other (specify) (none) Lab and/or radiology exams considered but not ordered:: not ordered Interpretation Summary: n/a Medications / Prescriptions Medications or Prescriptions considered but not ordered:: ordered Medication administrations:: Medication Administration History Discontinued Medications Cyclobenzaprine HCl (Cyclobenzaprine 5 Mg Tablet) 5 mg PO X1 ONE Stop: 12/21/24 20:16 Ketorolac Tromethamine (Ketorolac Inj 60 Mg/2 Ml Vial) 60 mg IM X1 ONE Stop: 12/21/24 20:16 above Consultations Consultation(s) initiated? (list below): No Diagnosis Extremity Problem Differential Diagnosis: herpes zoster, gout, cellulitis, superficial thrombophlebitis, deep venous thrombosis of upper extremity, lower extremity edema, deep vein thrombosis of lower extremity and other (bilateral leg pain) Most likely diagnosis given after review of the tests above:: bilateral leg pain Admission Indicated Admission indicated?: not indicated Admission Request Was there a request for admission?: No Disposition Plan Disposition Plan: Discharge Discharge Attestation Discharge Attestation: The patient and all family members were given an opportunity to ask questions and understood the discharge instructions. Discharge instructions specifically effects, indications for sooner follow up or return to the emergency department, and the expected course of current diagnosis. Patient condition: Stable Discharge Plan Plan Patient Disposition: HOME (Self Care) Disposition Comment: Stable Prescriptions/Referrals Prescriptions/Med Rec: No Action naproxen 500 mg tablet 500 mg PO BID PRN (Reason: pain) Qty: 30 0RF cyclobenzaprine 5 mg tablet 5 mg PO TID PRN (Reason: muscle spasm) Qty: 30 0RF naproxen 500 mg tablet 500 mg PO BID PRN (Reason: pain) Qty: 30 0RF baclofen 10 mg tablet 10 mg PO BID PRN (Reason: muscle spasm) Qty: 30 0RF ibuprofen 800 mg tablet 800 mg PO TID PRN (Reason: pain) Qty: 30 0RF ibuprofen 800 mg tablet 800 mg PO TID PRN (Reason: pain) Qty: 30 0RF ibuprofen 600 mg tablet 600 mg PO Q6H PRN (Reason: pain) Qty: 30 0RF ibuprofen 600 mg tablet 600 mg PO Q8H PRN (Reason: pain) Qty: 20 0RF acetaminophen 500 mg capsule 500 mg PO Q6H PRN (Reason: pain) Qty: 30 0RF lidocaine [Lidoderm] 5 % adhesive patch,medicated 2 patch topical QDAY PRN (Reason: pain) Qty: 30 0RF Rx Instructions: leave on most painful area for up to 12 hrs cyclobenzaprine 5 mg tablet 5 mg PO TID PRN (Reason: muscle spasm) Qty: 15 0RF sulfamethoxazole-trimethoprim [Bactrim DS] 800-160 mg tablet 1 tab PO BID Qty: 14 0RF naproxen 500 mg tablet 500 mg PO BID PRN (Reason: pain) Qty: 30 0RF tamsulosin [Flomax] 0.4 mg capsule 0.4 mg PO QDAY Qty: 30 0RF ibuprofen 600 mg tablet 600 mg PO Q6H PRN (Reason: pain) Qty: 30 0RF methocarbamol 500 mg tablet 1,000 mg PO Q8H PRN (Reason: pain) Qty: 30 0RF naproxen [Naprosyn] 500 mg tablet 500 mg PO BID Qty: 14 0RF ibuprofen 600 mg tablet 600 mg PO Q6H PRN (Reason: fever or pain) Qty: 30 0RF cyclobenzaprine 5 mg tablet 5 mg PO TID PRN (Reason: muscle spasm) Qty: 14 0RF naproxen 500 mg tablet 500 mg PO BID PRN (Reason: pain) Qty: 30 0RF cyclobenzaprine 5 mg tablet 5 mg PO TID PRN (Reason: muscle spasm) Qty: 30 0RF acetaminophen 500 mg capsule 500 mg PO Q6H PRN (Reason: pain) Qty: 30 0RF Problem List Clinical Impression: Bilateral leg pain Patient/Caregiver Discharge Instructions Additional Instructions: Please follow-up with PCP within 24-48 hours and return immediately if symptoms worsen. If problem persists, recommend outpatient PT and/or MRI follow-up. In the meantime, rest, use ice/heat, and/or compression. Print Language: Russian Stand Alone Forms: Patient Portal Info Letter PA/[employer] Supervising Physician PA/[employer] Supervising Physician: Dr. Palacio
[2024-12-21] MEDS: CYCLObenzaPRINE 5 MG TABLET PO (20:24)
[2024-12-21] MEDS: KETOROLAC INJ 60 MG/2 ML VIAL IM (20:25)
== END 2024-12-21 20:31 | disposition home or self-care (01) ==
LOC: SERX 20:39
PROVIDERS: Emergency Provider Emergency Medicine; PCP Family Medicine
DX: M79.605 Pain in left leg (principal); M79.604 Pain in right leg; M54.50 Low back pain, unspecified; G89.29 Other chronic pain
CPT/HCPCS: 96372; 99283; J1885; A9270

== ENCOUNTER 2024-12-22 06:14 | Emergency (ER) | payer MEDICAID, SELFPAY ==
[2024-12-22 06:15] VITALS: BMI 29.2
--- NOTE | 2024-12-22 06:38 | PD.EDLOWEX ---
Lower Extremity Injury RME/HPI General Chief Complaint: Extremity Injury, Lower Stated Complaint: CHRONIC LEG PAIN Time Seen by Provider: 12/22/24 06:19 Arrival date/time: 12/22/24 06:14 44-year-old male well-known to me presents the emergency department today requesting food and Toradol shot patient is homeless reports he has been unable to get food this morning and that is why he is actually here. Patient reports no saddle anesthesia no loss of bowel or bladder no fever nausea vomiting Limitations: no limitations Related Data Previous Rx's ?Medication ?Instructions ?Recorded sulfamethoxazole 800 1 tab PO BID #14 tabs 03/09/23 mg-trimethoprim 160 mg tablet (Bactrim DS) cyclobenzaprine 5 mg tablet 5 mg PO TID PRN muscle spasm #30 07/23/23 tabs naproxen 500 mg tablet 500 mg PO BID PRN pain #30 tabs 07/23/23 naproxen 500 mg tablet 500 mg PO BID PRN pain #30 tabs 08/08/23 tamsulosin 0.4 mg capsule (Flomax) 0.4 mg PO QDAY #30 caps 08/08/23 baclofen 10 mg tablet 10 mg PO BID PRN muscle spasm #30 08/14/23 tabs naproxen 500 mg tablet 500 mg PO BID PRN pain #30 tabs 08/14/23 ibuprofen 800 mg tablet 800 mg PO TID PRN pain #30 tabs 08/28/23 ibuprofen 600 mg tablet 600 mg PO Q6H PRN pain #30 tabs 01/27/24 methocarbamol 500 mg tablet 1,000 mg (2 x 500 mg) PO Q8H PRN 01/27/24 pain #30 tabs naproxen 500 mg tablet (Naprosyn) 500 mg PO BID #14 tabs 03/15/24 ibuprofen 800 mg tablet 800 mg PO TID PRN pain #30 tabs 04/02/24 cyclobenzaprine 5 mg tablet 5 mg PO TID PRN muscle spasm #14 04/07/24 tabs ibuprofen 600 mg tablet 600 mg PO Q6H PRN fever or pain 04/07/24 #30 tabs ibuprofen 600 mg tablet 600 mg PO Q6H PRN pain #30 tabs 04/07/24 cyclobenzaprine 5 mg tablet 5 mg PO TID PRN muscle spasm #30 04/11/24 tabs naproxen 500 mg tablet 500 mg PO BID PRN pain #30 tabs 04/11/24 ibuprofen 600 mg tablet 600 mg PO Q8H PRN pain #20 tabs 11/03/24 acetaminophen 500 mg capsule 500 mg PO Q6H PRN pain #30 caps 12/03/24 acetaminophen 500 mg capsule 500 mg PO Q6H PRN pain #30 caps 12/15/24 cyclobenzaprine 5 mg tablet 5 mg PO TID PRN muscle spasm #15 12/20/24 tabs lidocaine 5 % topical patch 2 patch topical QDAY PRN pain #30 12/20/24 (Lidoderm) ea Allergies Allergy/AdvReac Type Severity Reaction Status Date / Time No Known Allergies Allergy Verified 12/09/24 17:56 Review of Systems Review of Systems Systems Reviewed: All systems reviewed, normal except as documented Constitutional Constitutional: Reports system reviewed and no additional complaints, except as documented, Denies fever(s) and Denies headache(s) Eyes Eyes: Reports system reviewed and no additional complaints, except as documented and Denies blurry vision ENT Ears, Nose, Mouth, and Throat: Reports system reviewed and no additional complaints, except as documented, Denies headache(s), Denies nasal congestion and Denies nasal discharge Cardiovascular Cardiovascular: Reports system reviewed and no additional complaints, except as documented, Denies chest pain and Denies dyspnea Respiratory Respiratory: Reports system reviewed and no additional complaints, except as documented, Denies chest congestion, Denies cough and Denies dyspnea Gastrointestinal Gastrointestinal: Reports system reviewed and no additional complaints, except as documented and Denies abdominal pain Musculoskeletal Musculoskeletal: Reports system reviewed and no additional complaints, except as documented and Reports back pain Integumentary/Breasts Skin/Breast: Reports system reviewed and no additional complaints, except as documented and Denies rash Neurologic Neurologic: Reports system reviewed and no additional complaints, except as documented, Reports as per HPI and Denies headache(s) Past Medical History Past Medical History NEUROLOGIC: Positive Cerebrovascular Accident; Negative Neurological Disorders CARDIAC: Positive Myocardial Infarction and Hypercholesterolemia; Negative Cardiac Disorders or Congestive Heart Failure RESPIRATORY: Negative Chronic Obstructive Pulmonary Disease (COPD) GASTROINTESTINAL: Negative Gastrointestinal Disorders GENITOURINARY: Negative Genitourinary Disorders or Renal Disease MUSCULOSKELETAL: Negative Musculoskeletal Disorders ENDOCRINE: Negative Endocrine Disorders, Diabetes Mellitus Type 1 or Diabetes Mellitus Type 2 HEMATOLOGIC: Negative Blood Disorders OTHER HISTORY: Negative Autoimmune Disease or Clostridium Difficile Social History SMOKING STATUS: Current every day smoker SUBSTANCE USE: methamphetamine ED Exam General Limitations: Present no limitations General appearance: Present alert and in no apparent distress Head Head exam: Present atraumatic, normocephalic and normal inspection Eye Eye exam: Present normal appearance, PERRL and EOMI; Absent conjunctival injection ENT ENT exam: Present normal exam, normal oropharynx and mucous membranes moist Neck Neck exam: Present normal inspection, full ROM and trachea midline Chest Chest inspection: Present normal inspection and symmetric chest wall rise Respiratory Respiratory exam: Present normal lung sounds bilaterally Cardiovascular Cardiovascular exam: Present regular rate, normal rhythm and normal heart sounds Abdominal Exam Abdominal exam: Present soft and normal bowel sounds; Absent distention, tenderness, guarding, rebound or rigidity Extremities Exam Extremities exam: Present normal inspection and full ROM Back Exam Back exam: Present normal inspection, full ROM and paraspinal tenderness; Absent tenderness, CVA tenderness (R), CVA tenderness (L), muscle spasm or vertebral tenderness Neurological Exam Neurological exam: Present alert, oriented X3 and CN II-XII intact Psychiatric Psychiatric exam: Present normal affect and normal mood Skin Skin exam: Present warm, dry, intact and normal color Course Quality Measures none Orders Category Date Time Status Ketorolac Inj [Toradol Inj] Med 12/22/24 06:38 Discontinued 30 mg IM X1 ONE Vital Signs Vital signs: Vital Signs Temperature 98.2 F 12/22/24 06:41 Pulse Rate 82 12/22/24 06:41 Respiratory Rate 18 12/22/24 06:41 Blood Pressure 123/87 H 12/22/24 06:41 Pulse Oximetry (%) 99 12/22/24 06:41 Oxygen Delivery Method Room Air 12/22/24 06:41 O2 saturation 99% room air within normal limits Extremity Injury, Lower MDM Narrative MDM Narrative:: 44-year-old male well-known to me presents the emergency department today requesting food and Toradol shot patient is homeless reports he has been unable to get food this morning and that is why he is actually here. 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 Patient discharged home in no distress to follow-up with primary care doctor in the next 24 to 48 hours and for any worsening symptoms to return to the ER immediately Patient data External records reviewed:: [facility] previous records Clinical information provided by:: patient Social determinants that could affect healthcare access:: substance use Patient has the following chronic illnesses:: Substance abuse, homelessness, chronic back pain How is presenting disease/condition affected by chronic disease/condition?: caused by Evaluation data The following diagnostics were reviewed and interpreted by me:: other (specify) (N/A) Lab and/or radiology exams considered but not ordered:: Consider not ordered Interpretation Summary: N/A Medications / Prescriptions Medications or Prescriptions considered but not ordered:: Given Medication administrations:: Medication Administration History Discontinued Medications Ketorolac Tromethamine (Ketorolac Inj 30 Mg/Ml Vial) 30 mg IM X1 ONE Stop: 12/22/24 06:39 Last Admin: 12/22/24 06:49 Dose: 30 mg Documented By: GALDINO Given Consultations Consultation(s) initiated? (list below): No Diagnosis Extremity Injury, Lower Differential Diagnosis: other (Hip strain, hip strain, sciatica) Most likely diagnosis given after review of the tests above:: Chronic pain Admission Indicated Admission indicated?: not indicated Admission Request Was there a request for admission?: No Disposition Plan Disposition Plan: Discharge Discharge Attestation Discharge Attestation: The patient and all family members were given an opportunity to ask questions and understood the discharge instructions. Discharge instructions specifically effects, indications for sooner follow up or return to the emergency department, and the expected course of current diagnosis. Patient condition: Stable Discharge Plan Plan Patient Disposition: HOME (Self Care) Disposition Comment: Stable Prescriptions/Referrals Prescriptions/Med Rec: No Action naproxen 500 mg tablet 500 mg PO BID PRN (Reason: pain) Qty: 30 0RF cyclobenzaprine 5 mg tablet 5 mg PO TID PRN (Reason: muscle spasm) Qty: 30 0RF naproxen 500 mg tablet 500 mg PO BID PRN (Reason: pain) Qty: 30 0RF baclofen 10 mg tablet 10 mg PO BID PRN (Reason: muscle spasm) Qty: 30 0RF ibuprofen 800 mg tablet 800 mg PO TID PRN (Reason: pain) Qty: 30 0RF ibuprofen 800 mg tablet 800 mg PO TID PRN (Reason: pain) Qty: 30 0RF ibuprofen 600 mg tablet 600 mg PO Q6H PRN (Reason: pain) Qty: 30 0RF ibuprofen 600 mg tablet 600 mg PO Q8H PRN (Reason: pain) Qty: 20 0RF acetaminophen 500 mg capsule 500 mg PO Q6H PRN (Reason: pain) Qty: 30 0RF lidocaine [Lidoderm] 5 % adhesive patch,medicated 2 patch topical QDAY PRN (Reason: pain) Qty: 30 0RF Rx Instructions: leave on most painful area for up to 12 hrs cyclobenzaprine 5 mg tablet 5 mg PO TID PRN (Reason: muscle spasm) Qty: 15 0RF sulfamethoxazole-trimethoprim [Bactrim DS] 800-160 mg tablet 1 tab PO BID Qty: 14 0RF naproxen 500 mg tablet 500 mg PO BID PRN (Reason: pain) Qty: 30 0RF tamsulosin [Flomax] 0.4 mg capsule 0.4 mg PO QDAY Qty: 30 0RF ibuprofen 600 mg tablet 600 mg PO Q6H PRN (Reason: pain) Qty: 30 0RF methocarbamol 500 mg tablet 1,000 mg PO Q8H PRN (Reason: pain) Qty: 30 0RF naproxen [Naprosyn] 500 mg tablet 500 mg PO BID Qty: 14 0RF ibuprofen 600 mg tablet 600 mg PO Q6H PRN (Reason: fever or pain) Qty: 30 0RF cyclobenzaprine 5 mg tablet 5 mg PO TID PRN (Reason: muscle spasm) Qty: 14 0RF naproxen 500 mg tablet 500 mg PO BID PRN (Reason: pain) Qty: 30 0RF cyclobenzaprine 5 mg tablet 5 mg PO TID PRN (Reason: muscle spasm) Qty: 30 0RF acetaminophen 500 mg capsule 500 mg PO Q6H PRN (Reason: pain) Qty: 30 0RF Referrals: Lavell (PCP)Cody MD [Primary Care Provider] - In 1 week Problem List Clinical Impression: Chronic back pain, Homeless Patient/Caregiver Discharge Instructions Education Materials: Back Safety: Bending Additional Instructions: Please follow up with your primary care doctor in the next 24-48hrs for any worsening symptoms return here immediately Print Language: Belarusian Stand Alone Forms: Tami Award Info., Patient Portal Info Letter PA/CORN HUSKER MACHINE OPERATOR Supervising Physician PA/CORN HUSKER MACHINE OPERATOR Supervising Physician: Dr Mathews
[2024-12-22 06:41] VITALS: BP 123/87; PULSE 82; RESP 18; TEMP 36.8; O2SAT 99
[2024-12-22] MEDS: KETOROLAC INJ 30 MG/ML VIAL IM (06:49)
== END 2024-12-22 06:53 | disposition home or self-care (01) ==
PROVIDERS: Emergency Provider Emergency Medicine; PCP Family Medicine
DX: G89.29 Other chronic pain (principal); M54.9 Dorsalgia, unspecified; Z59.00 Homelessness unspecified
CPT/HCPCS: 96372; 99283; J1885

== ENCOUNTER 2024-12-22 12:02 | Emergency (ER) | payer MEDICAID, SELFPAY ==
[2024-12-22 12:04] VITALS: PULSE 66; RESP 18; O2SAT 97; BMI 27.7
[2024-12-22 12:18] VITALS: BP 122/80; PULSE 73; RESP 17; TEMP 36.9; O2SAT 97
--- NOTE | 2024-12-22 12:25 | PD.EDRME ---
Rapid Medical Screening Exam RME Arrival date/time: 12/22/24 12:02 44-year-old male who is homeless and using methamphetamine regularly presents via EMS with complaint of bilateral leg pain Chief Complaint: Extremity Problem,Nontraumatic Time Seen by Provider: 12/22/24 12:12 Vital signs: Vital Signs Temperature 98.5 F 12/22/24 12:18 Pulse Rate 73 12/22/24 12:18 Respiratory Rate 17 12/22/24 12:18 Blood Pressure 122/80 12/22/24 12:18 Pulse Oximetry (%) 97 12/22/24 12:18 Oxygen Delivery Method Room Air 12/22/24 12:18
[2024-12-22 12:58] LABS: Basophils # (Auto) 0.1 Thou/mm3 (0.0-0.2); Basophils % (Auto) 1 % (0-2.5); Eosinophils # (Auto) 0.2 Thou/mm3 (0.0-0.5); Eosinophils % (Auto) 3 % (0-10); Hematocrit 42.2 % (41.0-53.0); Hemoglobin 13.9 g/dL (13.5-16.0); Immature Granulocytes % (Auto) 1 % (0-0); Immature Granulocytes Auto 0.07 Thou/mm3 (0.00-0.00); Lymphocytes # (Auto) 1.4 Thou/mm3 (1.0-4.8); Lymphocytes % (Auto) 18 % (10-50); Mean Corpuscular HGB Conc 32.9 g/dl (31.0-37.0); Mean Corpuscular Hemoglobin 29.8 pg (25.0-35.0); Mean Corpuscular Volume 90 fL (80-100); Monocytes # (Auto) 0.5 Thou/mm3 (0.0-0.8); Monocytes % (Auto) 6 % (0-12); Neutrophils # (Auto) 5.4 Thou/mm3 (1.8-7.7); Neutrophils % (Auto) 71 % (37-80); Nucleated Red Blood Cell % 0 /100 WBC (0); Platelet Count 334 Thou/mm3 (140-440); RDW Standard Deviation 46.5 fL (35.1-43.9); Red Blood Count 4.67 Miln/mm3 (4.50-5.90); White Blood Count 7.6 Thou/mm3 (3.8-10.6)
[2024-12-22 13:18] LABS: Alanine Aminotransferase 16 U/L (10-49); Albumin, Serum 4.4 gm/dL (3.5-5.0); Albumin/Globulin Ratio 1.5 (1.2-2.2); Alkaline Phosphatase 89 U/L (46-116); Anion Gap 7 (7-16); Aspartate Amino Transferase 11 U/L (0-34); BUN/Creatinine Ratio 28 Ratio (12-20); Bilirubin,Total 0.3 mg/dL (0.3-1.2); Blood Urea Nitrogen 22 mg/dL (9-23); Calcium 9.1 mg/dL (8.3-10.6); Calcium (Corrected) 9.1 mg/dL (8.5-10.1); Carbon Dioxide 27.9 mMol/L (20.0-31.0); Chloride 107 mMol/L (98-107); Creatinine (Component) 0.8 mg/dL (0.6-1.3); Estimated Creatinine Clearance 117.1 mL/min (>60); Globulin 2.9 gm/dL (2.3-3.5); Glucose 96 mg/dL (74-106); Osmolality,Calculated 286 (275-295); Potassium 4.3 mMol/L (3.4-5.1); Sodium 142 mMol/L (136-145); Total Protein 7.3 gm/dL (5.7-8.2); eGFR > 60 See Note
--- NOTE | 2024-12-22 16:04 | PC.NURSE ---
CALLED PATIENT IN LOBBY AND OUTSIDE, NO ANSWER RECEIVED.
--- NOTE | 2024-12-22 16:44 | PC.NURSE ---
CALLED PATIENT IN THE LOBBY, RESTROOM, AND OUTSIDE, NO ANSWER RECIEVED.
--- NOTE | 2024-12-22 17:57 | PC.NURSE ---
CALLED PATIENT IN THE LOBBY AND OUTSIDE, NO ANSWER RECEIVED.
== END 2024-12-22 17:58 | disposition left against medical advice (07) ==
PROVIDERS: Nurse Practitioner Primary Care; Emergency Provider Emergency Medicine
DX: M79.605 Pain in left leg (principal); M79.604 Pain in right leg; Z59.00 Homelessness unspecified; Z53.29 Procedure and treatment not carried out because of patient's decision for other reasons
CPT/HCPCS: 36415; 80053; 80307; 81001; 85025; 99281

== ENCOUNTER 2024-12-23 10:18 | Emergency (ER) | payer MEDICAID, SELFPAY ==
[2024-12-23 10:19] VITALS: PULSE 86; O2SAT 98; BMI 27.7
--- NOTE | 2024-12-23 10:52 | PD.EDEXREM ---
ED Extremity Problem RME/HPI General Chief complaint: Extremity Problem,Nontraumatic Stated complaint: LEG PAIN Time Seen by Provider: 12/23/24 10:22 Arrival date/time: 12/23/24 10:18 44-year-old male who is homeless with methamphetamine use presents emergency department today complaints of leg pain patient reports to the ER multiple times a month for the same complaint currently patient is walking patient reports no saddle anesthesia or loss of bowel or bladder patient reports no fever nausea or vomiting Limitations: no limitations Related Data Previous Rx's ?Medication ?Instructions ?Recorded sulfamethoxazole 800 1 tab PO BID #14 tabs 03/09/23 mg-trimethoprim 160 mg tablet (Bactrim DS) cyclobenzaprine 5 mg tablet 5 mg PO TID PRN muscle spasm #30 07/23/23 tabs naproxen 500 mg tablet 500 mg PO BID PRN pain #30 tabs 07/23/23 naproxen 500 mg tablet 500 mg PO BID PRN pain #30 tabs 08/08/23 tamsulosin 0.4 mg capsule (Flomax) 0.4 mg PO QDAY #30 caps 08/08/23 baclofen 10 mg tablet 10 mg PO BID PRN muscle spasm #30 08/14/23 tabs naproxen 500 mg tablet 500 mg PO BID PRN pain #30 tabs 08/14/23 ibuprofen 800 mg tablet 800 mg PO TID PRN pain #30 tabs 08/28/23 ibuprofen 600 mg tablet 600 mg PO Q6H PRN pain #30 tabs 01/27/24 methocarbamol 500 mg tablet 1,000 mg (2 x 500 mg) PO Q8H PRN 01/27/24 pain #30 tabs naproxen 500 mg tablet (Naprosyn) 500 mg PO BID #14 tabs 03/15/24 ibuprofen 800 mg tablet 800 mg PO TID PRN pain #30 tabs 04/02/24 cyclobenzaprine 5 mg tablet 5 mg PO TID PRN muscle spasm #14 04/07/24 tabs ibuprofen 600 mg tablet 600 mg PO Q6H PRN fever or pain 04/07/24 #30 tabs ibuprofen 600 mg tablet 600 mg PO Q6H PRN pain #30 tabs 04/07/24 cyclobenzaprine 5 mg tablet 5 mg PO TID PRN muscle spasm #30 04/11/24 tabs naproxen 500 mg tablet 500 mg PO BID PRN pain #30 tabs 04/11/24 ibuprofen 600 mg tablet 600 mg PO Q8H PRN pain #20 tabs 11/03/24 acetaminophen 500 mg capsule 500 mg PO Q6H PRN pain #30 caps 12/03/24 acetaminophen 500 mg capsule 500 mg PO Q6H PRN pain #30 caps 12/15/24 cyclobenzaprine 5 mg tablet 5 mg PO TID PRN muscle spasm #15 12/20/24 tabs lidocaine 5 % topical patch 2 patch topical QDAY PRN pain #30 12/20/24 (Lidoderm) ea Allergies Allergy/AdvReac Type Severity Reaction Status Date / Time No Known Allergies Allergy Verified 12/23/24 10:22 Review of Systems Review of Systems Systems Reviewed: All systems reviewed, normal except as documented Constitutional Constitutional: Reports system reviewed and no additional complaints, except as documented, Denies fever(s) and Denies headache(s) Eyes Eyes: Reports system reviewed and no additional complaints, except as documented and Denies blurry vision ENT Ears, Nose, Mouth, and Throat: Reports system reviewed and no additional complaints, except as documented, Denies headache(s), Denies nasal congestion and Denies nasal discharge Cardiovascular Cardiovascular: Reports system reviewed and no additional complaints, except as documented, Denies chest pain and Denies dyspnea Respiratory Respiratory: Reports system reviewed and no additional complaints, except as documented, Denies chest congestion, Denies cough and Denies dyspnea Gastrointestinal Gastrointestinal: Reports system reviewed and no additional complaints, except as documented and Denies abdominal pain Musculoskeletal Musculoskeletal: Reports system reviewed and no additional complaints, except as documented, Denies arthralgias, Denies deformity, Denies joint swelling and Reports other (Bilateral upper leg pain) Integumentary/Breasts Skin/Breast: Reports system reviewed and no additional complaints, except as documented and Denies rash Neurologic Neurologic: Reports system reviewed and no additional complaints, except as documented, Reports as per HPI and Denies headache(s) Past Medical History Past Medical History NEUROLOGIC: Positive Cerebrovascular Accident; Negative Neurological Disorders CARDIAC: Positive Myocardial Infarction and Hypercholesterolemia; Negative Cardiac Disorders or Congestive Heart Failure RESPIRATORY: Negative Chronic Obstructive Pulmonary Disease (COPD) GASTROINTESTINAL: Negative Gastrointestinal Disorders GENITOURINARY: Negative Genitourinary Disorders or Renal Disease MUSCULOSKELETAL: Negative Musculoskeletal Disorders ENDOCRINE: Negative Endocrine Disorders, Diabetes Mellitus Type 1 or Diabetes Mellitus Type 2 HEMATOLOGIC: Negative Blood Disorders OTHER HISTORY: Negative Autoimmune Disease or Clostridium Difficile Social History SMOKING STATUS: Current every day smoker SUBSTANCE USE: methamphetamine ED Exam General Limitations: Present no limitations General appearance: Present alert and in no apparent distress Head Head exam: Present atraumatic Eye Eye exam: Present normal appearance, PERRL and EOMI ENT ENT exam: Present normal exam, normal oropharynx and mucous membranes moist Neck Neck exam: Present normal inspection, full ROM and trachea midline Chest Chest inspection: Present normal inspection and symmetric chest wall rise Respiratory Respiratory exam: Present normal lung sounds bilaterally Cardiovascular Cardiovascular exam: Present regular rate, normal rhythm and normal heart sounds Abdominal Exam Abdominal exam: Present soft and normal bowel sounds Extremities Exam Extremities exam: Present normal inspection and full ROM Back Exam Back exam: Present normal inspection and full ROM Neurological Exam Neurological exam: Present alert, oriented X3 and CN II-XII intact Psychiatric Psychiatric exam: Present normal affect and normal mood Skin Skin exam: Present warm, dry, intact and normal color Course Quality Measures none Vital Signs Vital signs: Vital Signs Temperature 98.9 F 12/23/24 10:56 Pulse Rate 81 12/23/24 10:56 Respiratory Rate 18 12/23/24 10:56 Blood Pressure 122/82 12/23/24 10:56 Pulse Oximetry (%) 98 12/23/24 10:56 Oxygen Delivery Method Room Air 12/23/24 10:56 O2 saturation 98% room air within normal limits Extremity Problem MDM Narrative MDM Narrative:: 44-year-old male who is homeless with methamphetamine use presents emergency department today complaints of leg pain patient reports to the ER multiple times a month for the same complaint currently patient is walking patient reports no saddle anesthesia or loss of bowel or bladder patient reports no fever nausea or vomiting Lab work was completed yesterday and was unremarkable Patient discharged home in no distress to follow-up with primary care doctor in the next 24 to 48 hours and for any worsening symptoms to return to the ER immediately Patient data External records reviewed:: [facility] previous records Clinical information provided by:: patient Social determinants that could affect healthcare access:: substance use Patient has the following chronic illnesses:: See history How is presenting disease/condition affected by chronic disease/condition?: caused by Evaluation data The following diagnostics were reviewed and interpreted by me:: other (specify) (N/A) Lab and/or radiology exams considered but not ordered:: Not ordered Interpretation Summary: Not ordered Medications / Prescriptions Medications or Prescriptions considered but not ordered:: Given no meds Medication administrations:: No meds Consultations Consultation(s) initiated? (list below): No Diagnosis Extremity Problem Differential Diagnosis: other (Chronic pain, back pain, leg pain) Most likely diagnosis given after review of the tests above:: Leg pain Admission Indicated Admission indicated?: not indicated Admission Request Was there a request for admission?: No Disposition Plan Disposition Plan: Discharge Discharge Attestation Discharge Attestation: The patient and all family members were given an opportunity to ask questions and understood the discharge instructions. Discharge instructions specifically effects, indications for sooner follow up or return to the emergency department, and the expected course of current diagnosis. Patient condition: Stable Discharge Plan Plan Patient Disposition: HOME (Self Care) Disposition Comment: Stable Prescriptions/Referrals Prescriptions/Med Rec: No Action naproxen 500 mg tablet 500 mg PO BID PRN (Reason: pain) Qty: 30 0RF cyclobenzaprine 5 mg tablet 5 mg PO TID PRN (Reason: muscle spasm) Qty: 30 0RF naproxen 500 mg tablet 500 mg PO BID PRN (Reason: pain) Qty: 30 0RF baclofen 10 mg tablet 10 mg PO BID PRN (Reason: muscle spasm) Qty: 30 0RF ibuprofen 800 mg tablet 800 mg PO TID PRN (Reason: pain) Qty: 30 0RF ibuprofen 800 mg tablet 800 mg PO TID PRN (Reason: pain) Qty: 30 0RF ibuprofen 600 mg tablet 600 mg PO Q6H PRN (Reason: pain) Qty: 30 0RF ibuprofen 600 mg tablet 600 mg PO Q8H PRN (Reason: pain) Qty: 20 0RF acetaminophen 500 mg capsule 500 mg PO Q6H PRN (Reason: pain) Qty: 30 0RF lidocaine [Lidoderm] 5 % adhesive patch,medicated 2 patch topical QDAY PRN (Reason: pain) Qty: 30 0RF Rx Instructions: leave on most painful area for up to 12 hrs cyclobenzaprine 5 mg tablet 5 mg PO TID PRN (Reason: muscle spasm) Qty: 15 0RF sulfamethoxazole-trimethoprim [Bactrim DS] 800-160 mg tablet 1 tab PO BID Qty: 14 0RF naproxen 500 mg tablet 500 mg PO BID PRN (Reason: pain) Qty: 30 0RF tamsulosin [Flomax] 0.4 mg capsule 0.4 mg PO QDAY Qty: 30 0RF ibuprofen 600 mg tablet 600 mg PO Q6H PRN (Reason: pain) Qty: 30 0RF methocarbamol 500 mg tablet 1,000 mg PO Q8H PRN (Reason: pain) Qty: 30 0RF naproxen [Naprosyn] 500 mg tablet 500 mg PO BID Qty: 14 0RF ibuprofen 600 mg tablet 600 mg PO Q6H PRN (Reason: fever or pain) Qty: 30 0RF cyclobenzaprine 5 mg tablet 5 mg PO TID PRN (Reason: muscle spasm) Qty: 14 0RF naproxen 500 mg tablet 500 mg PO BID PRN (Reason: pain) Qty: 30 0RF cyclobenzaprine 5 mg tablet 5 mg PO TID PRN (Reason: muscle spasm) Qty: 30 0RF acetaminophen 500 mg capsule 500 mg PO Q6H PRN (Reason: pain) Qty: 30 0RF Problem List Clinical Impression: Chronic pain, Homeless Patient/Caregiver Discharge Instructions Education Materials: ED Chronic Pain Additional Instructions: Please follow up with your primary care doctor in the next 24-48hrs for any worsening symptoms return here immediately Print Language: New Zealander Stand Alone Forms: Tami Award Info., Patient Portal Info Letter PA/FILTRATION PLANT MECHANIC Supervising Physician PA/[employer] PLANT MECHANIC Supervising Physician: Dr Mathews
[2024-12-23 10:56] VITALS: BP 122/82; PULSE 81; RESP 18; TEMP 37.2; O2SAT 98; BMI 27.0
== END 2024-12-23 12:44 | disposition home or self-care (01) ==
LOC: SERX 11:15
PROVIDERS: Emergency Provider Emergency Medicine; PCP Family Medicine
DX: G89.29 Other chronic pain (principal); M79.605 Pain in left leg; M79.604 Pain in right leg; Z59.00 Homelessness unspecified
CPT/HCPCS: 99281

== ENCOUNTER 2024-12-24 09:22 | Emergency (ER) | payer MEDICAID, SELFPAY ==
[2024-12-24 09:23] VITALS: PULSE 89; O2SAT 98; BMI 29.4
[2024-12-24 09:54] VITALS: BP 121/86; PULSE 77; RESP 17; TEMP 36.7; O2SAT 100
--- NOTE | 2024-12-24 10:15 | EDNOTE_ITS ---
ED General RME/HPI General Chief complaint: General Adult/Misc Complain Stated complaint: SAMI FOOT PAIN, WANTS TORADOL SHOT Time Seen by Provider: 12/24/24 09:24 Arrival date/time: 12/24/24 09:22 44-year-old male who is homeless with methamphetamine use presents emergency department today complaints of leg pain patient reports to the ER multiple times a month for the same complaint currently patient is walking patient reports no saddle anesthesia or loss of bowel or bladder patient reports no fever nausea or vomiting Limitations: no limitations Related Data Previous Rx's ?Medication ?Instructions ?Recorded sulfamethoxazole 800 1 tab PO BID #14 tabs mg-trimethoprim 160 mg tablet (Bactrim DS) cyclobenzaprine 5 mg tablet 5 mg PO TID PRN muscle spa sm #30 07/23/23 tabs naproxen 500 mg tablet 500 mg PO BID PRN pain #30 t abs 07/23/23 naproxen 500 mg tablet 500 mg PO BID PRN pain #30 t abs 08/08/23 tamsulosin 0.4 mg capsule (Flomax) 0.4 mg PO QDAY #30 caps 08/08/23 baclofen 10 mg tablet 10 mg PO BID PRN muscle spas m #30 08/14/23 tabs naproxen 500 mg tablet 500 mg PO BID PRN pain #30 t abs 08/14/23 ibuprofen 800 mg tablet 800 mg PO TID PRN pain #30 t abs 08/28/23 ibuprofen 600 mg tablet 600 mg PO Q6H PRN pain #30 t abs 01/27/24 methocarbamol 500 mg tablet 1,000 mg (2 x 500 mg) PO Q 8H PRN 01/27/24 pain #30 tabs naproxen 500 mg tablet (Naprosyn) 500 mg PO BID #14 ta bs 03/15/24 ibuprofen 800 mg tablet 800 mg PO TID PRN pain #30 t abs 04/02/24 cyclobenzaprine 5 mg tablet 5 mg PO TID PRN muscle spa sm #14 04/07/24 tabs ibuprofen 600 mg tablet 600 mg PO Q6H PRN fever or p ain 04/07/24 #30 tabs ibuprofen 600 mg tablet 600 mg PO Q6H PRN pain #30 t abs 04/07/24 cyclobenzaprine 5 mg tablet 5 mg PO TID PRN muscle spa sm #30 04/11/24 tabs naproxen 500 mg tablet 500 mg PO BID PRN pain #30 t abs 04/11/24 ibuprofen 600 mg tablet 600 mg PO Q8H PRN pain #20 t abs 11/03/24 acetaminophen 500 mg capsule 500 mg PO Q6H PRN pain #3 0 caps 12/03/24 acetaminophen 500 mg capsule 500 mg PO Q6H PRN pain #3 0 caps 12/15/24 cyclobenzaprine 5 mg tablet 5 mg PO TID PRN muscle spa sm #15 12/20/24 tabs lidocaine 5 % topical patch 2 patch topical QDAY PRN p ain #30 12/20/24 (Lidoderm) ea Allergies Allergy/AdvReac Type Severity Reaction Status Date / Time No Known Allergies Allergy Verified 12/24/24 09:22 Review of Systems Review of Systems Systems Reviewed: All systems reviewed, normal except as documented Constitutional Constitutional: Reports system reviewed and no additional complaints, except as documented, Denies fever(s) and Denies headache(s) Eyes Eyes: Reports system reviewed and no additional complaints, except as documented and Denies blurry vision ENT Ears, Nose, Mouth, and Throat: Reports system reviewed and no additional complaints, except as documented, Denies headache(s), Denies nasal congestion and Denies nasal discharge Cardiovascular Cardiovascular: Reports system reviewed and no additional complaints, except as documented, Denies chest pain and Denies dyspnea Respiratory Respiratory: Reports system reviewed and no additional complaints, except as documented, Denies chest congestion, Denies cough and Denies dyspnea Gastrointestinal Gastrointestinal: Reports system reviewed and no additional complaints, except as documented and Denies abdominal pain Musculoskeletal Musculoskeletal: Reports system reviewed and no additional complaints, except as documented, Denies limited range of motion, Denies stiffness, Denies tingling and Reports other (Pain) Integumentary/Breasts Skin/Breast: Reports system reviewed and no additional complaints, except as documented and Denies rash Neurologic Neurologic: Reports system reviewed and no additional complaints, except as documented, Reports as per HPI, Denies headache(s) and Denies tingling Past Medical History Past Medical History NEUROLOGIC: Positive Cerebrovascular Accident; Negative Neurological Disorders CARDIAC: Positive Myocardial Infarction and Hypercholesterolemia; Negative Cardiac Disorders or Congestive Heart Failure RESPIRATORY: Negative Chronic Obstructive Pulmonary Disease (COPD) GASTROINTESTINAL: Negative Gastrointestinal Disorders GENITOURINARY: Negative Genitourinary Disorders or Renal Disease MUSCULOSKELETAL: Negative Musculoskeletal Disorders ENDOCRINE: Negative Endocrine Disorders, Diabetes Mellitus Type 1 or Diabetes Mellitus Type 2 HEMATOLOGIC: Negative Blood Disorders OTHER HISTORY: Negative Autoimmune Disease or Clostridium Difficile Social History SMOKING STATUS: Current every day smoker SUBSTANCE USE: methamphetamine ED Exam General Limitations: Present no limitations General appearance: Present alert and in no apparent distress Head Head exam: Present atraumatic, normocephalic and normal inspection Eye Eye exam: Present normal appearance, PERRL and EOMI; Absent conjunctival injection or nystagmus ENT ENT exam: Present normal exam, normal oropharynx and mucous membranes moist Neck Neck exam: Present normal inspection, full ROM and trachea midline Chest Chest inspection: Present normal inspection and symmetric chest wall rise Respiratory Respiratory exam: Present normal lung sounds bilaterally; Absent respiratory distress Cardiovascular Cardiovascular exam: Present regular rate, normal rhythm and normal heart sounds Abdominal Exam Abdominal exam: Present soft and normal bowel sounds; Absent distention, tenderness, guarding, rebound or rigidity Extremities Exam Extremities exam: Present normal inspection and full ROM Back Exam Back exam: Present normal inspection and full ROM Neurological Exam Neurological exam: Present alert, oriented X3 and CN II-XII intact Psychiatric Psychiatric exam: Present normal affect and normal mood Skin Skin exam: Present warm, dry, intact and normal color Course Quality Measures none Vital Signs Vital signs: Vital Signs Temperature 98.1 F 12/24/24 09:54 Pulse Rate 77 12/24/24 09:54 Respiratory Rate 17 12/24/24 09:54 Blood Pressure 121/86 H 12/24/24 09:54 Pulse Oximetry (%) 100 12/24/24 09:54 Oxygen Delivery Method Room Air 12/24/24 09:54 O2 saturation 100% room air within normal limits [facility] Patient data External records reviewed:: [facility] previous records Clinical information provided by:: patient Social determinants that could affect healthcare access:: none Patient has the following chronic illnesses:: None How is presenting disease/condition affected by chronic disease/condition?: no chronic disease Evaluation data The following diagnostics were reviewed and interpreted by me:: other (specify) (N/A) Lab and/or radiology exams considered but not ordered:: N/A Interpretation Summary: Consider not ordered Medications Medications considered but not ordered:: No meds Medication administrations:: No meds Consultations Consultation(s) initiated? (list below): No Diagnosis Differential Diagnosis ED Complaint MDM: Homelessness, amphetamine use, leg pain Most likely diagnosis given after review of the tests above:: Leg pain chronic Admission Indicated Admission indicated?: not indicated Explain why admission is indicated or not indicated:: No criteria Admission Request Was there a request for admission?: No Disposition Plan Disposition Plan: Discharge Discharge Attestation Discharge Attestation: The patient and all family members were given an opportunity to ask questions and understood the discharge instructions. Discharge instructions specifically effects, indications for sooner follow up or return to the emergency department, and the expected course of current diagnosis. Patient condition: Stable Medical Decision Making MDM Narrative MDM Narrative: 44-year-old male who is homeless with methamphetamine use presents emergency department today complaints of leg pain patient reports to the ER multiple times a month for the same complaint currently patient is walking patient reports no saddle anesthesia or loss of bowel or bladder patient reports no fever nausea or vomiting Lab work was completed recently no abnormalities noted patient walks without difficulty with his normal gait Patient discharged home in no distress to follow-up with primary care doctor in the next 24 to 48 hours and for any worsening symptoms to return to the ER immediately Differential Diagnosis Differential Diagnosis: Homelessness, amphetamine use, leg pain Medical Records Medical records reviewed: Yes I reviewed the patient's medical records. Discharge Plan Plan Patient Disposition: HOME (Self Care) Disposition Comment: Stable Prescriptions/Referrals Prescriptions/Med Rec: No Action naproxen 500 mg tablet 500 mg PO BID PRN (Reason: pain) Qty: 30 0RF cyclobenzaprine 5 mg tablet 5 mg PO TID PRN (Reason: muscle spasm) Qty: 30 0RF naproxen 500 mg tablet 500 mg PO BID PRN (Reason: pain) Qty: 30 0RF baclofen 10 mg tablet 10 mg PO BID PRN (Reason: muscle spasm) Qty: 30 0RF ibuprofen 800 mg tablet 800 mg PO TID PRN (Reason: pain) Qty: 30 0RF ibuprofen 800 mg tablet 800 mg PO TID PRN (Reason: pain) Qty: 30 0RF ibuprofen 600 mg tablet 600 mg PO Q6H PRN (Reason: pain) Qty: 30 0RF ibuprofen 600 mg tablet 600 mg PO Q8H PRN (Reason: pain) Qty: 20 0RF acetaminophen 500 mg capsule 500 mg PO Q6H PRN (Reason: pain) Qty: 30 0RF lidocaine [Lidoderm] 5 % adhesive patch,medicated 2 patch topical QDAY PRN (Reason: pain) Qty: 30 0RF Rx Instructions: leave on most painful area for up to 12 hrs cyclobenzaprine 5 mg tablet 5 mg PO TID PRN (Reason: muscle spasm) Qty: 15 0RF sulfamethoxazole-trimethoprim [Bactrim DS] 800-160 mg tablet 1 tab PO BID Qty: 14 0RF naproxen 500 mg tablet 500 mg PO BID PRN (Reason: pain) Qty: 30 0RF tamsulosin [Flomax] 0.4 mg capsule 0.4 mg PO QDAY Qty: 30 0RF ibuprofen 600 mg tablet 600 mg PO Q6H PRN (Reason: pain) Qty: 30 0RF methocarbamol 500 mg tablet 1,000 mg PO Q8H PRN (Reason: pain) Qty: 30 0RF naproxen [Naprosyn] 500 mg tablet 500 mg PO BID Qty: 14 0RF ibuprofen 600 mg tablet 600 mg PO Q6H PRN (Reason: fever or pain) Qty: 30 0RF cyclobenzaprine 5 mg tablet 5 mg PO TID PRN (Reason: muscle spasm) Qty: 14 0RF naproxen 500 mg tablet 500 mg PO BID PRN (Reason: pain) Qty: 30 0RF cyclobenzaprine 5 mg tablet 5 mg PO TID PRN (Reason: muscle spasm) Qty: 30 0RF acetaminophen 500 mg capsule 500 mg PO Q6H PRN (Reason: pain) Qty: 30 0RF Problem List Clinical Impression: Chronic leg pain, Homeless Patient/Caregiver Discharge Instructions Education Materials: ED Chronic Pain Additional Instructions: Please follow up with your primary care doctor in the next 24-48hrs for any worsening symptoms return here immediately Print Language: Anguillan Stand Alone Forms: Tami Award Info., Patient Portal Info Letter PA/LATHE SCALPER OPERATOR Supervising Physician PA/LATHE SCALPER OPERATOR Supervising Physician: Dr Mathews
== END 2024-12-24 10:43 | disposition home or self-care (01) ==
LOC: SERX 10:44
PROVIDERS: Emergency Provider Emergency Medicine
DX: M79.606 Pain in leg, unspecified (principal); Z59.00 Homelessness unspecified
CPT/HCPCS: 99281

== ENCOUNTER 2024-12-25 07:33 | Emergency (ER) | payer MEDICAID, SELFPAY ==
[2024-12-25 07:34] VITALS: BMI 26.6
[2024-12-25 07:48] VITALS: BP 128/91; PULSE 64; RESP 18; TEMP 36.4; O2SAT 99
--- NOTE | 2024-12-25 07:50 | PD.EDBACK ---
ED Back Injury Pain RME/HPI General Chief Complaint: Extremity Problem,Nontraumatic Stated Complaint: LEG PAIN, CHRONIC Source: patient Arrival date/time: 12/25/24 07:33 44-year-old male with a history of chronic back pain, methamphetamine abuse presents to the emergency room with a chief complaint of lower lumbar pain that radiates down his left leg x 3 months. Mode of arrival: ambulatory Limitations: no limitations Related Data Previous Rx's ?Medication ?Instructions ?Recorded sulfamethoxazole 800 1 tab PO BID #14 tabs 03/09/23 mg-trimethoprim 160 mg tablet (Bactrim DS) cyclobenzaprine 5 mg tablet 5 mg PO TID PRN muscle spasm #30 07/23/23 tabs naproxen 500 mg tablet 500 mg PO BID PRN pain #30 tabs 07/23/23 naproxen 500 mg tablet 500 mg PO BID PRN pain #30 tabs 08/08/23 tamsulosin 0.4 mg capsule (Flomax) 0.4 mg PO QDAY #30 caps 08/08/23 baclofen 10 mg tablet 10 mg PO BID PRN muscle spasm #30 08/14/23 tabs naproxen 500 mg tablet 500 mg PO BID PRN pain #30 tabs 08/14/23 ibuprofen 800 mg tablet 800 mg PO TID PRN pain #30 tabs 08/28/23 ibuprofen 600 mg tablet 600 mg PO Q6H PRN pain #30 tabs 01/27/24 methocarbamol 500 mg tablet 1,000 mg (2 x 500 mg) PO Q8H PRN 01/27/24 pain #30 tabs naproxen 500 mg tablet (Naprosyn) 500 mg PO BID #14 tabs 03/15/24 ibuprofen 800 mg tablet 800 mg PO TID PRN pain #30 tabs 04/02/24 cyclobenzaprine 5 mg tablet 5 mg PO TID PRN muscle spasm #14 04/07/24 tabs ibuprofen 600 mg tablet 600 mg PO Q6H PRN fever or pain 04/07/24 #30 tabs ibuprofen 600 mg tablet 600 mg PO Q6H PRN pain #30 tabs 04/07/24 cyclobenzaprine 5 mg tablet 5 mg PO TID PRN muscle spasm #30 04/11/24 tabs naproxen 500 mg tablet 500 mg PO BID PRN pain #30 tabs 04/11/24 ibuprofen 600 mg tablet 600 mg PO Q8H PRN pain #20 tabs 11/03/24 acetaminophen 500 mg capsule 500 mg PO Q6H PRN pain #30 caps 12/03/24 acetaminophen 500 mg capsule 500 mg PO Q6H PRN pain #30 caps 12/15/24 cyclobenzaprine 5 mg tablet 5 mg PO TID PRN muscle spasm #15 12/20/24 tabs lidocaine 5 % topical patch 2 patch topical QDAY PRN pain #30 12/20/24 (Lidoderm) ea Allergies Allergy/AdvReac Type Severity Reaction Status Date / Time No Known Allergies Allergy Verified 12/25/24 07:35 Review of Systems Review of Systems Systems Reviewed: All systems reviewed, normal except as documented Constitutional Constitutional: Reports system reviewed and no additional complaints, except as documented, Denies fatigue, Denies fever(s), Denies headache(s) and Denies weakness Eyes Eyes: Reports system reviewed and no additional complaints, except as documented, Denies blurry vision and Denies change in vision ENT Ears, Nose, Mouth, and Throat: Reports system reviewed and no additional complaints, except as documented, Denies otalgia, Denies headache(s), Denies nasal congestion, Denies throat swelling and Denies vertigo Cardiovascular Cardiovascular: Reports system reviewed and no additional complaints, except as documented, Denies chest pain, Denies dyspnea and Denies dyspnea on exertion Respiratory Respiratory: Reports system reviewed and no additional complaints, except as documented, Denies chest congestion, Denies cough, Denies dyspnea, Denies dyspnea on exertion and Denies wheezing Gastrointestinal Gastrointestinal: Reports system reviewed and no additional complaints, except as documented, Denies abdominal pain, Denies cramping, Denies nausea and Denies vomiting Genitourinary Genitourinary: Reports system reviewed and no additional complaints, except as documented, Denies dysuria and Denies hematuria Musculoskeletal Musculoskeletal: Reports system reviewed and no additional complaints, except as documented, Reports arthralgias, Reports back pain, Denies muscle weakness, Denies numbness, Reports radiating pain into limb and Denies tingling Integumentary/Breasts Skin/Breast: Reports system reviewed and no additional complaints, except as documented and Denies wounds Neurologic Neurologic: Reports system reviewed and no additional complaints, except as documented, Denies confusion, Denies headache(s), Denies lack of coordination, Denies numbness, Denies tingling, Denies vertigo and Denies weakness Psychiatric Psychiatric: Reports system reviewed and no additional complaints, except as documented, Denies anxiety, Denies confusion, Denies depression, Denies paranoia, Denies suicidal ideation and Denies tactile hallucinations Endocrine Endocrine: Reports system reviewed and no additional complaints, except as documented and Denies fatigue Hematologic/Lymphatic Hematologic/Lymphatic: Reports system reviewed and no additional complaints, except as documented and Denies lymphadenopathy Allergic/Immunologic Allergic/Immunologic: Reports system reviewed and no additional complaints, except as documented, Denies throat swelling, Denies urticaria and Denies wheezing Past Medical History Past Medical History NEUROLOGIC: Positive Cerebrovascular Accident; Negative Neurological Disorders CARDIAC: Positive Myocardial Infarction and Hypercholesterolemia; Negative Cardiac Disorders or Congestive Heart Failure RESPIRATORY: Negative Chronic Obstructive Pulmonary Disease (COPD) GASTROINTESTINAL: Negative Gastrointestinal Disorders GENITOURINARY: Negative Genitourinary Disorders or Renal Disease MUSCULOSKELETAL: Negative Musculoskeletal Disorders ENDOCRINE: Negative Endocrine Disorders, Diabetes Mellitus Type 1 or Diabetes Mellitus Type 2 HEMATOLOGIC: Negative Blood Disorders OTHER HISTORY: Negative Autoimmune Disease or Clostridium Difficile Social History SMOKING STATUS: Current every day smoker SUBSTANCE USE: methamphetamine ED Exam General Limitations: Present no limitations General appearance: Present alert and in no apparent distress Head Head exam: Present atraumatic Eye Eye exam: Present normal appearance, PERRL and EOMI ENT ENT exam: Present normal exam, normal oropharynx and mucous membranes moist Neck Neck exam: Present normal inspection, full ROM and trachea midline Chest Chest inspection: Present normal inspection and symmetric chest wall rise Respiratory Respiratory exam: Present normal lung sounds bilaterally Cardiovascular Cardiovascular exam: Present regular rate, normal rhythm and normal heart sounds Abdominal Exam Abdominal exam: Present soft and normal bowel sounds Extremities Exam Extremities exam: Present normal inspection and full ROM Back Exam Back exam: Present normal inspection, full ROM, vertebral tenderness and sciatic notch tenderness (L); Absent sciatic notch tenderness (R), straight leg raise (R) or straight leg raise (L) Neurological Exam Neurological exam: Present alert, oriented X3, CN II-XII intact, normal gait and reflexes normal Expanded Neurological Exam Patient oriented to: Present person, place and time Speech: Present fluid speech Cerebellar function: Present normal gait Motor strength - LUE: 5/5 Motor strength - RUE: 5/5 Motor strength - LLE: 5/5 Motor strength - RLE: 5/5 Spinal cord function: Absent saddle anesthesia Coma scale eye opening: spontaneous Coma scale motor response: obeys commands Coma scale verbal response: oriented Coma scale total: 15 Psychiatric Psychiatric exam: Present normal affect and normal mood Skin Skin exam: Present warm, dry, intact and normal color Course Quality Measures none Orders Category Date Time Status Ketorolac Inj [Toradol Inj] Med 12/25/24 07:49 Once 30 mg IM X1 ONE Vital Signs Vital signs: Vital Signs Temperature 97.6 F 12/25/24 07:48 Pulse Rate 64 12/25/24 07:48 Respiratory Rate 18 12/25/24 07:48 Blood Pressure 128/91 H 12/25/24 07:48 Pulse Oximetry (%) 99 12/25/24 07:48 Oxygen Delivery Method Room Air 12/25/24 07:48 Back Pain / Injury MDM Narrative MDM Narrative:: 44-year-old male with a history of chronic back pain, methamphetamine abuse presents to the emergency room with a chief complaint of lower lumbar pain that radiates down his left leg x 3 months. Patient is hemodynamically stable and in no apparent distress Patient has some tenderness to his lumbar back and some sciatic notch tenderness to the left side. Patient states a Toradol shot helped some with his pain. Patient denies any saddle anesthesia numbness to the lower extremities or any other complaints. Patient states he will follow-up with his primary care provider. Medication was given to the patient patient was discharged and educated to return to the emergency room for any evidence of worsening signs or symptoms Patient data External records reviewed:: [facility] previous records Clinical information provided by:: patient Social determinants that could affect healthcare access:: none Patient has the following chronic illnesses:: Chronic back pain How is presenting disease/condition affected by chronic disease/condition?: caused by Evaluation data The following diagnostics were reviewed and interpreted by me:: lab results and radiology exam(s) Lab and/or radiology exams considered but not ordered:: Labs and radiology exams considered and ordered Interpretation Summary: N/A Medications / Prescriptions Medications or Prescriptions considered but not ordered:: Medication given Medication administrations:: Medication Administration History Discontinued Medications Ketorolac Tromethamine (Ketorolac Inj 60 Mg/2 Ml Vial) 30 mg IM X1 ONE Stop: 12/25/24 07:50 Medication given Consultations Consultation(s) initiated? (list below): No Diagnosis Differential diagnosis back pain/injury: lumbar radiculopathy, sciatica, strain of lumbar region, thoracic back pain, discitis and other Most likely diagnosis given after review of the tests above:: Sciatica Admission Indicated Admission indicated?: not indicated Admission Request Was there a request for admission?: No Disposition Plan Disposition Plan: Discharge Discharge Attestation Discharge Attestation: The patient and all family members were given an opportunity to ask questions and understood the discharge instructions. Discharge instructions specifically effects, indications for sooner follow up or return to the emergency department, and the expected course of current diagnosis. Patient condition: Stable Discharge Plan Plan Patient Disposition: HOME (Self Care) Disposition Comment: Stable Prescriptions/Referrals Prescriptions/Med Rec: No Action naproxen 500 mg tablet 500 mg PO BID PRN (Reason: pain) Qty: 30 0RF cyclobenzaprine 5 mg tablet 5 mg PO TID PRN (Reason: muscle spasm) Qty: 30 0RF naproxen 500 mg tablet 500 mg PO BID PRN (Reason: pain) Qty: 30 0RF baclofen 10 mg tablet 10 mg PO BID PRN (Reason: muscle spasm) Qty: 30 0RF ibuprofen 800 mg tablet 800 mg PO TID PRN (Reason: pain) Qty: 30 0RF ibuprofen 800 mg tablet 800 mg PO TID PRN (Reason: pain) Qty: 30 0RF ibuprofen 600 mg tablet 600 mg PO Q6H PRN (Reason: pain) Qty: 30 0RF ibuprofen 600 mg tablet 600 mg PO Q8H PRN (Reason: pain) Qty: 20 0RF acetaminophen 500 mg capsule 500 mg PO Q6H PRN (Reason: pain) Qty: 30 0RF lidocaine [Lidoderm] 5 % adhesive patch,medicated 2 patch topical QDAY PRN (Reason: pain) Qty: 30 0RF Rx Instructions: leave on most painful area for up to 12 hrs cyclobenzaprine 5 mg tablet 5 mg PO TID PRN (Reason: muscle spasm) Qty: 15 0RF sulfamethoxazole-trimethoprim [Bactrim DS] 800-160 mg tablet 1 tab PO BID Qty: 14 0RF naproxen 500 mg tablet 500 mg PO BID PRN (Reason: pain) Qty: 30 0RF tamsulosin [Flomax] 0.4 mg capsule 0.4 mg PO QDAY Qty: 30 0RF ibuprofen 600 mg tablet 600 mg PO Q6H PRN (Reason: pain) Qty: 30 0RF methocarbamol 500 mg tablet 1,000 mg PO Q8H PRN (Reason: pain) Qty: 30 0RF naproxen [Naprosyn] 500 mg tablet 500 mg PO BID Qty: 14 0RF ibuprofen 600 mg tablet 600 mg PO Q6H PRN (Reason: fever or pain) Qty: 30 0RF cyclobenzaprine 5 mg tablet 5 mg PO TID PRN (Reason: muscle spasm) Qty: 14 0RF naproxen 500 mg tablet 500 mg PO BID PRN (Reason: pain) Qty: 30 0RF cyclobenzaprine 5 mg tablet 5 mg PO TID PRN (Reason: muscle spasm) Qty: 30 0RF acetaminophen 500 mg capsule 500 mg PO Q6H PRN (Reason: pain) Qty: 30 0RF Problem List Clinical Impression: Sciatica of left side Patient/Caregiver Discharge Instructions Education Materials: ED Sciatica Additional Instructions: Please follow-up with your primary care provider in the next 24 to 48 hours. For any evidence of worsening signs or symptoms please return the emergency room immediately Print Language: Syrian Stand Alone Forms: Tami Award Info., Patient Portal Info Letter PA/DEVYN Supervising Physician FAINA/DEVYN Supervising Physician: Dr Mathews
[2024-12-25] MEDS: KETOROLAC INJ 60 MG/2 ML VIAL 30 MG IM (08:12)
== END 2024-12-25 08:14 | disposition home or self-care (01) ==
LOC: SERX 08:19
PROVIDERS: Emergency Provider Emergency Medicine; PCP Family Medicine
DX: M54.42 Lumbago with sciatica, left side (principal); G89.29 Other chronic pain; F17.210 Nicotine dependence, cigarettes, uncomplicated
CPT/HCPCS: 96372; 99283; J1885

== ENCOUNTER 2024-12-26 17:28 | Emergency (ER) | payer MEDICAID, SELFPAY ==
[2024-12-26 17:31] VITALS: PULSE 90; RESP 16; O2SAT 99
[2024-12-26 18:19] VITALS: BP 130/70; PULSE 88; RESP 18; TEMP 37.1; O2SAT 99; BMI 27.7
--- NOTE | 2024-12-26 18:36 | EDNOTE_ITS ---
ED Back Injury Pain RME/HPI General Stated Complaint: LEG PAIN Time Seen by Provider: 12/26/24 18:24 Arrival date/time: 12/26/24 17:28 44M with history of drug use, homelessness, and chronic back pain presents to ED with chronic lower back and leg pain. Patient denies fevers/chills, leg swelling, paresthesia, bowel/bladder incontinence, SOB dysuria, and hematuria. Limitations: no limitations Related Data Previous Rx's ?Medication ?Instructions ?Recorded sulfamethoxazole 800 1 tab PO BID #14 tabs mg-trimethoprim 160 mg tablet (Bactrim DS) cyclobenzaprine 5 mg tablet 5 mg PO TID PRN muscle spa sm #30 07/23/23 tabs naproxen 500 mg tablet 500 mg PO BID PRN pain #30 t abs 07/23/23 naproxen 500 mg tablet 500 mg PO BID PRN pain #30 t abs 08/08/23 tamsulosin 0.4 mg capsule (Flomax) 0.4 mg PO QDAY #30 caps 08/08/23 baclofen 10 mg tablet 10 mg PO BID PRN muscle spas m #30 08/14/23 tabs naproxen 500 mg tablet 500 mg PO BID PRN pain #30 t abs 08/14/23 ibuprofen 800 mg tablet 800 mg PO TID PRN pain #30 t abs 08/28/23 ibuprofen 600 mg tablet 600 mg PO Q6H PRN pain #30 t abs 01/27/24 methocarbamol 500 mg tablet 1,000 mg (2 x 500 mg) PO Q 8H PRN 01/27/24 pain #30 tabs naproxen 500 mg tablet (Naprosyn) 500 mg PO BID #14 ta bs 03/15/24 ibuprofen 800 mg tablet 800 mg PO TID PRN pain #30 t abs 04/02/24 cyclobenzaprine 5 mg tablet 5 mg PO TID PRN muscle spa sm #14 04/07/24 tabs ibuprofen 600 mg tablet 600 mg PO Q6H PRN fever or p ain 04/07/24 #30 tabs ibuprofen 600 mg tablet 600 mg PO Q6H PRN pain #30 t abs 04/07/24 cyclobenzaprine 5 mg tablet 5 mg PO TID PRN muscle spa sm #30 04/11/24 tabs naproxen 500 mg tablet 500 mg PO BID PRN pain #30 t abs 04/11/24 ibuprofen 600 mg tablet 600 mg PO Q8H PRN pain #20 t abs 11/03/24 acetaminophen 500 mg capsule 500 mg PO Q6H PRN pain #3 0 caps 12/03/24 acetaminophen 500 mg capsule 500 mg PO Q6H PRN pain #3 0 caps 12/15/24 cyclobenzaprine 5 mg tablet 5 mg PO TID PRN muscle spa sm #15 12/20/24 tabs lidocaine 5 % topical patch 2 patch topical QDAY PRN p ain #30 12/20/24 (Lidoderm) ea Allergies Allergy/AdvReac Type Severity Reaction Status Date / Time No Known Allergies Allergy Verified 12/26/24 17:34 Review of Systems Review of Systems Systems Reviewed: All systems reviewed, normal except as documented Constitutional Constitutional: Reports system reviewed and no additional complaints, except as documented, Denies fever(s) and Denies headache(s) ENT Ears, Nose, Mouth, and Throat: Denies disequilibrium and Denies headache(s) Cardiovascular Cardiovascular: Reports system reviewed and no additional complaints, except as documented, Denies chest pain and Denies dyspnea Respiratory Respiratory: Reports system reviewed and no additional complaints, except as documented, Denies cough and Denies dyspnea Gastrointestinal Gastrointestinal: Reports system reviewed and no additional complaints, except as documented, Denies abdominal pain, Denies nausea and Denies vomiting Musculoskeletal Musculoskeletal: Reports as per HPI and Reports arthralgias Neurologic Neurologic: Reports system reviewed and no additional complaints, except as documented, Denies confusion, Denies disequilibrium and Denies headache(s) Psychiatric Psychiatric: Denies confusion Past Medical History Past Medical History NEUROLOGIC: Positive Cerebrovascular Accident; Negative Neurological Disorders CARDIAC: Positive Myocardial Infarction and Hypercholesterolemia; Negative Cardiac Disorders or Congestive Heart Failure RESPIRATORY: Negative Chronic Obstructive Pulmonary Disease (COPD) GASTROINTESTINAL: Negative Gastrointestinal Disorders GENITOURINARY: Negative Genitourinary Disorders or Renal Disease MUSCULOSKELETAL: Negative Musculoskeletal Disorders ENDOCRINE: Negative Endocrine Disorders, Diabetes Mellitus Type 1 or Diabetes Mellitus Type 2 HEMATOLOGIC: Negative Blood Disorders OTHER HISTORY: Negative Autoimmune Disease or Clostridium Difficile Social History SMOKING STATUS: Current every day smoker SUBSTANCE USE: methamphetamine ED Exam General Limitations: Present no limitations General appearance: Present alert and in no apparent distress Head Head exam: Present atraumatic Eye Eye exam: Present normal appearance, PERRL and EOMI ENT ENT exam: Present normal exam, normal oropharynx and mucous membranes moist Neck Neck exam: Present normal inspection, full ROM and trachea midline Chest Chest inspection: Present normal inspection and symmetric chest wall rise Respiratory Respiratory exam: Present normal lung sounds bilaterally Cardiovascular Cardiovascular exam: Present regular rate, normal rhythm and normal heart sounds Abdominal Exam Abdominal exam: Present soft and normal bowel sounds Extremities Exam Extremities exam: Present normal inspection and full ROM Back Exam Back exam: Present normal inspection and full ROM Neurological Exam Neurological exam: Present alert, oriented X3 and CN II-XII intact Psychiatric Psychiatric exam: Present normal affect and normal mood Skin Skin exam: Present warm, dry, intact and normal color Course Quality Measures none Orders Category Date Time Status Ketorolac Inj [Toradol Inj] Med 12/26/24 18:26 Discontinued 30 mg IM X1 ONE Vital Signs Vital signs: Vital Signs Temperature 98.7 F 12/26/24 18:19 Pulse Rate 88 12/26/24 18:19 Respiratory Rate 18 12/26/24 18:19 Blood Pressure 130/70 12/26/24 18:19 Pulse Oximetry (%) 99 12/26/24 18:19 Oxygen Delivery Method Room Air 12/26/24 18:19 O2 at 99% on RA and WNLs Back Pain / Injury MDM Narrative MDM Narrative:: 44M with history of drug use, homelessness, and chronic back pain presents to ED with chronic lower back and leg pain. Patient denies fevers/chills, leg swelling, paresthesia, bowel/bladder incontinence, SOB dysuria, and hematuria. Physical exam reveals no flank/back tenderness. No leg swelling. Patient is afebrile, calm, and alert. Meds and prison classification counselor given. Patient data External records reviewed:: [facility] records Clinical information provided by:: patient Social determinants that could affect healthcare access:: substance use Patient has the following chronic illnesses:: drug use, homelessness, and chronic back pain How is presenting disease/condition affected by chronic disease/condition?: caused by Evaluation data The following diagnostics were reviewed and interpreted by me:: other (specify) (none) Lab and/or radiology exams considered but not ordered:: not ordered Interpretation Summary: n/a Medications / Prescriptions Medications or Prescriptions considered but not ordered:: ordered Medication administrations:: Medication Administration History Discontinued Medications Ketorolac Tromethamine (Ketorolac Inj 60 Mg/2 Ml Vial) 30 mg IM X1 ONE Stop: 12/26/24 18:27 above Consultations Consultation(s) initiated? (list below): No Diagnosis Differential diagnosis back pain/injury: lumbar radiculopathy, sciatica, strain of lumbar region, renal colic, pyelonephritis, thoracic back pain, AAA and discitis Most likely diagnosis given after review of the tests above:: chronic pain Admission Indicated Admission indicated?: not indicated Admission Request Was there a request for admission?: No Disposition Plan Disposition Plan: Discharge Discharge Attestation Discharge Attestation: The patient and all family members were given an opportunity to ask questions and understood the discharge instructions. Discharge instructions specifically effects, indications for sooner follow up or return to the emergency department, and the expected course of current diagnosis. Patient condition: Stable Discharge Plan Plan Patient Disposition: HOME (Self Care) Disposition Comment: Stable Prescriptions/Referrals Prescriptions/Med Rec: No Action naproxen 500 mg tablet 500 mg PO BID PRN (Reason: pain) Qty: 30 0RF cyclobenzaprine 5 mg tablet 5 mg PO TID PRN (Reason: muscle spasm) Qty: 30 0RF naproxen 500 mg tablet 500 mg PO BID PRN (Reason: pain) Qty: 30 0RF baclofen 10 mg tablet 10 mg PO BID PRN (Reason: muscle spasm) Qty: 30 0RF ibuprofen 800 mg tablet 800 mg PO TID PRN (Reason: pain) Qty: 30 0RF ibuprofen 800 mg tablet 800 mg PO TID PRN (Reason: pain) Qty: 30 0RF ibuprofen 600 mg tablet 600 mg PO Q6H PRN (Reason: pain) Qty: 30 0RF ibuprofen 600 mg tablet 600 mg PO Q8H PRN (Reason: pain) Qty: 20 0RF acetaminophen 500 mg capsule 500 mg PO Q6H PRN (Reason: pain) Qty: 30 0RF lidocaine [Lidoderm] 5 % adhesive patch,medicated 2 patch topical QDAY PRN (Reason: pain) Qty: 30 0RF Rx Instructions: leave on most painful area for up to 12 hrs cyclobenzaprine 5 mg tablet 5 mg PO TID PRN (Reason: muscle spasm) Qty: 15 0RF sulfamethoxazole-trimethoprim [Bactrim DS] 800-160 mg tablet 1 tab PO BID Qty: 14 0RF naproxen 500 mg tablet 500 mg PO BID PRN (Reason: pain) Qty: 30 0RF tamsulosin [Flomax] 0.4 mg capsule 0.4 mg PO QDAY Qty: 30 0RF ibuprofen 600 mg tablet 600 mg PO Q6H PRN (Reason: pain) Qty: 30 0RF methocarbamol 500 mg tablet 1,000 mg PO Q8H PRN (Reason: pain) Qty: 30 0RF naproxen [Naprosyn] 500 mg tablet 500 mg PO BID Qty: 14 0RF ibuprofen 600 mg tablet 600 mg PO Q6H PRN (Reason: fever or pain) Qty: 30 0RF cyclobenzaprine 5 mg tablet 5 mg PO TID PRN (Reason: muscle spasm) Qty: 14 0RF naproxen 500 mg tablet 500 mg PO BID PRN (Reason: pain) Qty: 30 0RF cyclobenzaprine 5 mg tablet 5 mg PO TID PRN (Reason: muscle spasm) Qty: 30 0RF acetaminophen 500 mg capsule 500 mg PO Q6H PRN (Reason: pain) Qty: 30 0RF Problem List Clinical Impression: Chronic pain Patient/Caregiver Discharge Instructions Additional Instructions: Please follow-up with PCP within 24-48 hours and return immediately if symptoms worsen. If problem persists, recommend outpatient PT and/or MRI follow-up. In the m eantime, rest, use ice/heat, and/or compression. Print Language: Setswana Stand Alone Forms: Patient Portal Info Letter PA/USER INTERFACE ARTIST Supervising Physician FAINA/USER INTERFACE ARTIST Supervising Physician: Dr. Pedraza
[2024-12-26] MEDS: KETOROLAC INJ 60 MG/2 ML VIAL 30 MG IM (18:41)
== END 2024-12-26 18:58 | disposition home or self-care (01) ==
PROVIDERS: Emergency Provider Emergency Medicine; PCP Family Medicine
DX: G89.29 Other chronic pain (principal); M54.50 Low back pain, unspecified; M79.606 Pain in leg, unspecified; F17.200 Nicotine dependence, unspecified, uncomplicated; Z59.00 Homelessness unspecified; F19.90 Other psychoactive substance use, unspecified, uncomplicated; Z86.73 Personal history of transient ischemic attack (TIA), and cerebral infarction without residual deficits
CPT/HCPCS: 96372; 99283; J1885

== ENCOUNTER 2024-12-27 06:50 | Emergency (ER) | payer MEDICAID, SELFPAY ==
[2024-12-27 06:51] VITALS: BMI 27.7
[2024-12-27 07:25] VITALS: BP 146/102; PULSE 91; RESP 19; TEMP 36.9; O2SAT 97
--- NOTE | 2024-12-27 07:36 | EDNOTE_ITS ---
<Statement entered by Annemarie Cortez MD - 12/31/24 07:23> As co-signing physician, I was present and available for consult prn. I concur with the plan and care as documented by the midlevel provider. ED Extremity Problem RME/HPI General Chief complaint: Extremity Problem,Nontraumatic Stated complaint: BILATERAL LEG PAIN Time Seen by Provider: 12/27/24 06:53 Source: patient Arrival date/time: 12/27/24 06:50 This is a 44-year-old male presents to the emergency department with complaints of bilateral leg pain. Patient is a known homeless male who presents on a frequent basis to the emergency department. He does have history of shuffling gait. States that he ambulates throughout the city causing pain and soreness to his lower legs. Today he is requesting a pain shot and a warm meal. Patient denies any other concerns today. Mode of arrival: ambulatory Related Data Previous Rx's ?Medication ?Instructions ?Recorded sulfamethoxazole 800 1 tab PO BID #14 tabs mg-trimethoprim 160 mg tablet (Bactrim DS) cyclobenzaprine 5 mg tablet 5 mg PO TID PRN muscle spa sm #30 07/23/23 tabs naproxen 500 mg tablet 500 mg PO BID PRN pain #30 t abs 07/23/23 naproxen 500 mg tablet 500 mg PO BID PRN pain #30 t abs 08/08/23 tamsulosin 0.4 mg capsule (Flomax) 0.4 mg PO QDAY #30 caps 08/08/23 baclofen 10 mg tablet 10 mg PO BID PRN muscle spas m #30 08/14/23 tabs naproxen 500 mg tablet 500 mg PO BID PRN pain #30 t abs 08/14/23 ibuprofen 800 mg tablet 800 mg PO TID PRN pain #30 t abs 08/28/23 ibuprofen 600 mg tablet 600 mg PO Q6H PRN pain #30 t abs 01/27/24 methocarbamol 500 mg tablet 1,000 mg (2 x 500 mg) PO Q 8H PRN 01/27/24 pain #30 tabs naproxen 500 mg tablet (Naprosyn) 500 mg PO BID #14 ta bs 03/15/24 ibuprofen 800 mg tablet 800 mg PO TID PRN pain #30 t abs 04/02/24 cyclobenzaprine 5 mg tablet 5 mg PO TID PRN muscle spa sm #14 04/07/24 tabs ibuprofen 600 mg tablet 600 mg PO Q6H PRN fever or p ain 04/07/24 #30 tabs ibuprofen 600 mg tablet 600 mg PO Q6H PRN pain #30 t abs 04/07/24 cyclobenzaprine 5 mg tablet 5 mg PO TID PRN muscle spa sm #30 04/11/24 tabs naproxen 500 mg tablet 500 mg PO BID PRN pain #30 t abs 04/11/24 ibuprofen 600 mg tablet 600 mg PO Q8H PRN pain #20 t abs 11/03/24 acetaminophen 500 mg capsule 500 mg PO Q6H PRN pain #3 0 caps 12/03/24 acetaminophen 500 mg capsule 500 mg PO Q6H PRN pain #3 0 caps 12/15/24 cyclobenzaprine 5 mg tablet 5 mg PO TID PRN muscle spa sm #15 12/20/24 tabs lidocaine 5 % topical patch 2 patch topical QDAY PRN p ain #30 12/20/24 (Lidoderm) ea Allergies Allergy/AdvReac Type Severity Reaction Status Date / Time No Known Allergies Allergy Verified 12/26/24 17:34 Review of Systems Review of Systems Systems Reviewed: All systems reviewed, normal except as documented Narrative Review of Systems: Gen: No fever, no chills, no weight loss EYES: No discharge, no visual changes, no pain HEENT: No ear pain, no congestion, no sore throat PULM: No shortness of breath, no cough, no congestion CV: No chest pain, no dyspnea on exertion, no palpitations GI: No nausea, no vomiting, no diarrhea, no pain, no constipation : No frequency, no urgency,? no dysuria Musc/skel: junior leg pain, no back pain Skin: No rash? ED Exam Narrative Physical exam: Disheveled 44-year-old awake and alert male General General appearance: Present alert and in no apparent distress Head Head exam: Present atraumatic Eye Eye exam: Present normal appearance, PERRL and EOMI ENT ENT exam: Present normal exam, normal oropharynx and mucous membranes moist Neck Neck exam: Present normal inspection, full ROM and trachea midline Chest Chest inspection: Present normal inspection and symmetric chest wall rise Respiratory Respiratory exam: Present normal lung sounds bilaterally Cardiovascular Cardiovascular exam: Present regular rate, normal rhythm and normal heart sounds Abdominal Exam Abdominal exam: Present soft and normal bowel sounds Extremities Exam Extremities exam: Present full ROM Expanded Lower Extremity Exam Hip/Pelvis exam: Present normal inspection Upper leg exam: Present normal inspection Knee exam: Present normal inspection Lower leg exam: Present normal inspection Ankle exam: Present normal inspection Back Exam Back exam: Present normal inspection and full ROM Neurological Exam Neurological exam: Present alert, oriented X3 and CN II-XII intact Psychiatric Psychiatric exam: Present normal affect and normal mood Skin Skin exam: Present warm, dry, intact and normal color Course Quality Measures none Orders Category Date Time Status Ketorolac Inj [Toradol Inj] Med 12/27/24 07:32 Discontinued 30 mg IM X1 ONE Vital Signs Vital signs: Vital Signs Temperature 98.5 F 12/27/24 07:25 Pulse Rate 91 12/27/24 07:25 Respiratory Rate 19 12/27/24 07:25 Blood Pressure 146/102 H 12/27/24 07:25 Pulse Oximetry (%) 97 12/27/24 07:25 Oxygen Delivery Method Room Air 12/27/24 07:25 Extremity Problem MDM Narrative MDM Narrative:: 44-year-old male who is homeless with methamphetamine use presents emergency department today complaints of leg pain patient reports to the ER multiple times a month for the same complaint currently patient is walking patient reports no saddle anesthesia or loss of bowel or bladder patient reports no fever nausea or vomiting -Patient given pain medication, and a warm meal. Patient discharged home in no distress to follow-up with primary care doctor in the next 24 to 48 hours and for any worsening symptoms to return to the ER immediately Patient data External records reviewed:: [facility] previous records Clinical information provided by:: patient Social determinants that could affect healthcare access:: none (Homelessness, mental health, drug abuse.) Patient has the following chronic illnesses:: Homelessness, drug abuse, How is presenting disease/condition affected by chronic disease/condition?: exacerbated by Evaluation data The following diagnostics were reviewed and interpreted by me:: other (specify) Lab and/or radiology exams considered but not ordered:: No no imaging due to no trauma. Or injury Interpretation Summary: Not applicable Medications / Prescriptions Medications or Prescriptions considered but not ordered:: No Medication administrations:: Medication Administration History Discontinued Medications Ketorolac Tromethamine (Ketorolac Inj 60 Mg/2 Ml Vial) 30 mg IM X1 ONE Stop: 12/27/24 07:33 Last Admin: 12/27/24 07:38 Dose: 30 mg Documented By: DB all medications administered and effective Consultations Consultation(s) initiated? (list below): No Diagnosis Extremity Problem Differential Diagnosis: lower extremity edema and other (Lower leg pain, overuse.) Most likely diagnosis given after review of the tests above:: Shuffle gait. Lower leg pain Admission Indicated Admission indicated?: not indicated Admission Request Was there a request for admission?: No Disposition Plan Disposition Plan: Discharge Discharge Attestation Discharge Attestation: The patient and all family members were given an opportunity to ask questions and understood the discharge instructions. Discharge instructions specifically effects, indications for sooner follow up or return to the emergency department, and the expected course of current diagnosis. Patient condition: Stable Discharge Plan Plan Patient Disposition: HOME (Self Care) Patient condition on transfer: Stable Prescriptions/Referrals Prescriptions/Med Rec: No Action naproxen 500 mg tablet 500 mg PO BID PRN (Reason: pain) Qty: 30 0RF cyclobenzaprine 5 mg tablet 5 mg PO TID PRN (Reason: muscle spasm) Qty: 30 0RF naproxen 500 mg tablet 500 mg PO BID PRN (Reason: pain) Qty: 30 0RF baclofen 10 mg tablet 10 mg PO BID PRN (Reason: muscle spasm) Qty: 30 0RF ibuprofen 800 mg tablet 800 mg PO TID PRN (Reason: pain) Qty: 30 0RF ibuprofen 800 mg tablet 800 mg PO TID PRN (Reason: pain) Qty: 30 0RF ibuprofen 600 mg tablet 600 mg PO Q6H PRN (Reason: pain) Qty: 30 0RF ibuprofen 600 mg tablet 600 mg PO Q8H PRN (Reason: pain) Qty: 20 0RF acetaminophen 500 mg capsule 500 mg PO Q6H PRN (Reason: pain) Qty: 30 0RF lidocaine [Lidoderm] 5 % adhesive patch,medicated 2 patch topical QDAY PRN (Reason: pain) Qty: 30 0RF Rx Instructions: leave on most painful area for up to 12 hrs cyclobenzaprine 5 mg tablet 5 mg PO TID PRN (Reason: muscle spasm) Qty: 15 0RF sulfamethoxazole-trimethoprim [Bactrim DS] 800-160 mg tablet 1 tab PO BID Qty: 14 0RF naproxen 500 mg tablet 500 mg PO BID PRN (Reason: pain) Qty: 30 0RF tamsulosin [Flomax] 0.4 mg capsule 0.4 mg PO QDAY Qty: 30 0RF ibuprofen 600 mg tablet 600 mg PO Q6H PRN (Reason: pain) Qty: 30 0RF methocarbamol 500 mg tablet 1,000 mg PO Q8H PRN (Reason: pain) Qty: 30 0RF naproxen [Naprosyn] 500 mg tablet 500 mg PO BID Qty: 14 0RF ibuprofen 600 mg tablet 600 mg PO Q6H PRN (Reason: fever or pain) Qty: 30 0RF cyclobenzaprine 5 mg tablet 5 mg PO TID PRN (Reason: muscle spasm) Qty: 14 0RF naproxen 500 mg tablet 500 mg PO BID PRN (Reason: pain) Qty: 30 0RF cyclobenzaprine 5 mg tablet 5 mg PO TID PRN (Reason: muscle spasm) Qty: 30 0RF acetaminophen 500 mg capsule 500 mg PO Q6H PRN (Reason: pain) Qty: 30 0RF Problem List Clinical Impression: Chronic leg pain, Homeless Patient/Caregiver Discharge Instructions Discharge Activity: activity as tolerated Education Materials: ED Chronic Pain Additional Instructions: Please follow-up with your primary doctor To the emergency department this any worsening symptoms change in condition. Print Language: Indonesian Stand Alone Forms: Tami Award Info., Patient Portal Info Letter PA/DIRECTOR OF VIDEO ANALYTICS Supervising Physician PA/DIRECTOR OF VIDEO ANALYTICS Supervising Physician: Dr. Mancera
[2024-12-27] MEDS: KETOROLAC INJ 60 MG/2 ML VIAL 30 MG IM (07:38)
[2024-12-27 07:57] VITALS: BP 148/84; PULSE 88; RESP 18; TEMP 36.6; O2SAT 99
== END 2024-12-27 07:59 | disposition home or self-care (01) ==
LOC: SERX 08:02
PROVIDERS: Emergency Provider Emergency Medicine; PCP Family Medicine
DX: G89.29 Other chronic pain (principal); M79.605 Pain in left leg; M79.604 Pain in right leg; F15.10 Other stimulant abuse, uncomplicated; Z59.00 Homelessness unspecified
CPT/HCPCS: 96372; 99283; J1885

== ENCOUNTER 2024-12-27 14:36 | Emergency (ER) | payer MEDICAID, SELFPAY ==
[2024-12-27 14:41] VITALS: PULSE 89; O2SAT 97; BMI 27.7
[2024-12-27 15:11] VITALS: BP 118/80; PULSE 83; RESP 18; TEMP 36.7; O2SAT 98
--- NOTE | 2024-12-27 15:24 | EDNOTE_ITS ---
<Statement entered by Annemarie Cortez MD - 12/31/24 07:24> As co-signing physician, I was present and available for consult prn. I concur with the plan and care as documented by the midlevel provider. Lower Extremity Injury RME/HPI General Chief Complaint: Extremity Injury, Lower Stated Complaint: BLE PAIN, FALL YESTERDAY Time Seen by Provider: 12/27/24 15:01 Source: patient Arrival date/time: 12/27/24 14:36 44-year-old male well-known to me presents the emergency department today requesting food and Toradol shot patient is homeless reports he has been unable to get food this morning and that is why he is actually here. Patient reports no saddle anesthesia no loss of bowel or bladder no fever nausea vomiting Mode of arrival: ambulatory Related Data Previous Rx's ?Medication ?Instructions ?Recorded sulfamethoxazole 800 1 tab PO BID #14 tabs mg-trimethoprim 160 mg tablet (Bactrim DS) cyclobenzaprine 5 mg tablet 5 mg PO TID PRN muscle spa sm #30 07/23/23 tabs naproxen 500 mg tablet 500 mg PO BID PRN pain #30 t abs 07/23/23 naproxen 500 mg tablet 500 mg PO BID PRN pain #30 t abs 08/08/23 tamsulosin 0.4 mg capsule (Flomax) 0.4 mg PO QDAY #30 caps 08/08/23 baclofen 10 mg tablet 10 mg PO BID PRN muscle spas m #30 08/14/23 tabs naproxen 500 mg tablet 500 mg PO BID PRN pain #30 t abs 08/14/23 ibuprofen 800 mg tablet 800 mg PO TID PRN pain #30 t abs 08/28/23 ibuprofen 600 mg tablet 600 mg PO Q6H PRN pain #30 t abs 01/27/24 methocarbamol 500 mg tablet 1,000 mg (2 x 500 mg) PO Q 8H PRN 01/27/24 pain #30 tabs naproxen 500 mg tablet (Naprosyn) 500 mg PO BID #14 ta bs 03/15/24 ibuprofen 800 mg tablet 800 mg PO TID PRN pain #30 t abs 04/02/24 cyclobenzaprine 5 mg tablet 5 mg PO TID PRN muscle spa sm #14 04/07/24 tabs ibuprofen 600 mg tablet 600 mg PO Q6H PRN fever or p ain 04/07/24 #30 tabs ibuprofen 600 mg tablet 600 mg PO Q6H PRN pain #30 t abs 04/07/24 cyclobenzaprine 5 mg tablet 5 mg PO TID PRN muscle spa sm #30 04/11/24 tabs naproxen 500 mg tablet 500 mg PO BID PRN pain #30 t abs 04/11/24 ibuprofen 600 mg tablet 600 mg PO Q8H PRN pain #20 t abs 11/03/24 acetaminophen 500 mg capsule 500 mg PO Q6H PRN pain #3 0 caps 12/03/24 acetaminophen 500 mg capsule 500 mg PO Q6H PRN pain #3 0 caps 12/15/24 cyclobenzaprine 5 mg tablet 5 mg PO TID PRN muscle spa sm #15 12/20/24 tabs lidocaine 5 % topical patch 2 patch topical QDAY PRN p ain #30 12/20/24 (Lidoderm) ea Allergies Allergy/AdvReac Type Severity Reaction Status Date / Time No Known Allergies Allergy Verified 12/27/24 14:37 Review of Systems Review of Systems Systems Reviewed: All systems reviewed, normal except as documented Narrative Review of Systems: Gen: No fever, no chills, no weight loss EYES: No discharge, no visual changes, no pain HEENT: No ear pain, no congestion, no sore throat PULM: No shortness of breath, no cough, no congestion CV: No chest pain, no dyspnea on exertion, no palpitations GI: No nausea, no vomiting, no diarrhea, no pain, no constipation : No frequency, no urgency,? no dysuria Musc/ske-leg pain pain, no back pain Skin: No rash? ED Exam Narrative Physical exam: Disheveled 44-year-old awake and alert male General General appearance: Present alert and in no apparent distress Head Head exam: Present atraumatic Eye Eye exam: Present normal appearance, PERRL and EOMI ENT ENT exam: Present normal exam, normal oropharynx and mucous membranes moist Neck Neck exam: Present normal inspection, full ROM and trachea midline Chest Chest inspection: Present normal inspection and symmetric chest wall rise Respiratory Respiratory exam: Present normal lung sounds bilaterally Cardiovascular Cardiovascular exam: Present regular rate, normal rhythm and normal heart sounds Abdominal Exam Abdominal exam: Present soft and normal bowel sounds Extremities Exam Extremities exam: Present full ROM Expanded Lower Extremity Exam Hip/Pelvis exam: Present normal inspection Upper leg exam: Present normal inspection Knee exam: Present normal inspection Lower leg exam: Present normal inspection Ankle exam: Present normal inspection Back Exam Back exam: Present normal inspection and full ROM Neurological Exam Neurological exam: Present alert, oriented X3 and CN II-XII intact Psychiatric Psychiatric exam: Present normal affect and normal mood Skin Skin exam: Present warm, dry, intact and normal color Course Quality Measures none Orders Category Date Time Status Acetaminophen Tab [Tylenol ES Tab] Med 12/27/24 15:16 Discontinued 1,000 mg PO X1 ONE Vital Signs Vital signs: Vital Signs Temperature 98.1 F 12/27/24 15:11 Pulse Rate 83 12/27/24 15:11 Respiratory Rate 18 12/27/24 15:11 Blood Pressure 118/80 12/27/24 15:11 Pulse Oximetry (%) 98 12/27/24 15:11 Oxygen Delivery Method Room Air 12/27/24 15:11 Extremity Injury, Lower MDM Narrative MDM Narrative:: 44-year-old male well-known to me presents the emergency department today requesting food and Toradol shot patient is homeless reports he has been unable to get food this morning and that is why he is actually here. 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 Patient discharged home in no distress to follow-up with primary care doctor in the next 24 to 48 hours and for any worsening symptoms to return to the ER immediately Patient data External records reviewed:: [facility] previous records Clinical information provided by:: patient Social determinants that could affect healthcare access:: substance use Patient has the following chronic illnesses:: Substance abuse, homelessness, chronic back pain How is presenting disease/condition affected by chronic disease/condition?: caused by Evaluation data The following diagnostics were reviewed and interpreted by me:: other (specify) (N/A) Lab and/or radiology exams considered but not ordered:: Consider not ordered Interpretation Summary: N/A Medications / Prescriptions Medications or Prescriptions considered but not ordered:: Given Medication administrations:: Medication Administration History Discontinued Medications Acetaminophen (Acetaminophen 500 Mg Tablet) 1,000 mg PO X1 ONE Stop: 12/27/24 15:17 Given Consultations Consultation(s) initiated? (list below): No Diagnosis Extremity Injury, Lower Differential Diagnosis: other (Hip strain, hip strain, sciatica) Most likely diagnosis given after review of the tests above:: Chronic pain Admission Indicated Admission indicated?: not indicated Admission Request Was there a request for admission?: No Disposition Plan Disposition Plan: Discharge Discharge Attestation Discharge Attestation: The patient and all family members were given an opportunity to ask questions and understood the discharge instructions. Discharge instructions specifically effects, indications for sooner follow up or return to the emergency department, and the expected course of current diagnosis. Patient condition: Stable Discharge Plan Plan Patient Disposition: HOME (Self Care) Patient condition on transfer: Stable Prescriptions/Referrals Prescriptions/Med Rec: No Action naproxen 500 mg tablet 500 mg PO BID PRN (Reason: pain) Qty: 30 0RF cyclobenzaprine 5 mg tablet 5 mg PO TID PRN (Reason: muscle spasm) Qty: 30 0RF naproxen 500 mg tablet 500 mg PO BID PRN (Reason: pain) Qty: 30 0RF baclofen 10 mg tablet 10 mg PO BID PRN (Reason: muscle spasm) Qty: 30 0RF ibuprofen 800 mg tablet 800 mg PO TID PRN (Reason: pain) Qty: 30 0RF ibuprofen 800 mg tablet 800 mg PO TID PRN (Reason: pain) Qty: 30 0RF ibuprofen 600 mg tablet 600 mg PO Q6H PRN (Reason: pain) Qty: 30 0RF ibuprofen 600 mg tablet 600 mg PO Q8H PRN (Reason: pain) Qty: 20 0RF acetaminophen 500 mg capsule 500 mg PO Q6H PRN (Reason: pain) Qty: 30 0RF lidocaine [Lidoderm] 5 % adhesive patch,medicated 2 patch topical QDAY PRN (Reason: pain) Qty: 30 0RF Rx Instructions: leave on most painful area for up to 12 hrs cyclobenzaprine 5 mg tablet 5 mg PO TID PRN (Reason: muscle spasm) Qty: 15 0RF sulfamethoxazole-trimethoprim [Bactrim DS] 800-160 mg tablet 1 tab PO BID Qty: 14 0RF naproxen 500 mg tablet 500 mg PO BID PRN (Reason: pain) Qty: 30 0RF tamsulosin [Flomax] 0.4 mg capsule 0.4 mg PO QDAY Qty: 30 0RF ibuprofen 600 mg tablet 600 mg PO Q6H PRN (Reason: pain) Qty: 30 0RF methocarbamol 500 mg tablet 1,000 mg PO Q8H PRN (Reason: pain) Qty: 30 0RF naproxen [Naprosyn] 500 mg tablet 500 mg PO BID Qty: 14 0RF ibuprofen 600 mg tablet 600 mg PO Q6H PRN (Reason: fever or pain) Qty: 30 0RF cyclobenzaprine 5 mg tablet 5 mg PO TID PRN (Reason: muscle spasm) Qty: 14 0RF naproxen 500 mg tablet 500 mg PO BID PRN (Reason: pain) Qty: 30 0RF cyclobenzaprine 5 mg tablet 5 mg PO TID PRN (Reason: muscle spasm) Qty: 30 0RF acetaminophen 500 mg capsule 500 mg PO Q6H PRN (Reason: pain) Qty: 30 0RF Problem List Clinical Impression: Homeless, Chronic leg pain Patient/Caregiver Discharge Instructions Discharge Activity: activity as tolerated Education Materials: ED Chronic Pain Additional Instructions: Please take medication as directed follow-up with your primary doctor return to the emergency department this any worsening symptoms change in condition peer Print Language: Kyrgyz Stand Alone Forms: Tami Award Info., Patient Portal Info Letter PA/SIEBEL ADMINISTRATOR Supervising Physician PA/DEVYN Supervising Physician: dr. Cortez
[2024-12-27] MEDS: ACETAMINOPHEN 500 MG TABLET 1000 MG PO (15:27)
== END 2024-12-27 18:26 | disposition home or self-care (01) ==
PROVIDERS: Emergency Provider Emergency Medicine
DX: G89.29 Other chronic pain (principal); M79.605 Pain in left leg; M79.604 Pain in right leg; M54.9 Dorsalgia, unspecified; F19.10 Other psychoactive substance abuse, uncomplicated; Z59.00 Homelessness unspecified; Z59.41 Food insecurity
CPT/HCPCS: 99282; A9270

== ENCOUNTER 2024-12-28 08:29 | Emergency (ER) | payer MEDICAID, SELFPAY ==
[2024-12-28 08:49] VITALS: BP 116/81; PULSE 74; RESP 16; TEMP 37.1; O2SAT 99; BMI 26.6
[2024-12-28] MEDS: ACETAMINOPHEN 500 MG TABLET 1000 MG PO (09:30)
--- NOTE | 2024-12-28 09:37 | EDNOTE_ITS ---
<Statement entered by Annemarie Cortez MD - 12/31/24 07:15> As co-signing physician, I was present and available for consult prn. I concur with the plan and care as documented by the midlevel provider. Lower Extremity Injury RME/HPI General Chief Complaint: Extremity Injury, Lower Stated Complaint: Long. leg pain s/p fall yest. Time Seen by Provider: 12/28/24 08:45 Source: patient Arrival date/time: 12/28/24 08:29 44yo male with a history of CVA, HLD presents to the ED for a chief complaint of BLE pain x 2 days. Patient states he had a stroke last year and gets cramps when he walks a lot. He is here requesting Toradol and a sandwich. This is the patient's third day in a row to the ED. Has not picked up prescription medication. Has not followed up with his PCP. he denies any trauma or injuries. Denies any other associated symptoms. No known allergies. Limitations: no limitations Related Data Previous Rx's ?Medication ?Instructions ?Recorded sulfamethoxazole 800 1 tab PO BID #14 tabs mg-trimethoprim 160 mg tablet (Bactrim DS) cyclobenzaprine 5 mg tablet 5 mg PO TID PRN muscle spa sm #30 07/23/23 tabs naproxen 500 mg tablet 500 mg PO BID PRN pain #30 t abs 07/23/23 naproxen 500 mg tablet 500 mg PO BID PRN pain #30 t abs 08/08/23 tamsulosin 0.4 mg capsule (Flomax) 0.4 mg PO QDAY #30 caps 08/08/23 baclofen 10 mg tablet 10 mg PO BID PRN muscle spas m #30 08/14/23 tabs naproxen 500 mg tablet 500 mg PO BID PRN pain #30 t abs 08/14/23 ibuprofen 800 mg tablet 800 mg PO TID PRN pain #30 t abs 08/28/23 ibuprofen 600 mg tablet 600 mg PO Q6H PRN pain #30 t abs 01/27/24 methocarbamol 500 mg tablet 1,000 mg (2 x 500 mg) PO Q 8H PRN 01/27/24 pain #30 tabs naproxen 500 mg tablet (Naprosyn) 500 mg PO BID #14 ta bs 03/15/24 ibuprofen 800 mg tablet 800 mg PO TID PRN pain #30 t abs 04/02/24 cyclobenzaprine 5 mg tablet 5 mg PO TID PRN muscle spa sm #14 04/07/24 tabs ibuprofen 600 mg tablet 600 mg PO Q6H PRN fever or p ain 04/07/24 #30 tabs ibuprofen 600 mg tablet 600 mg PO Q6H PRN pain #30 t abs 04/07/24 cyclobenzaprine 5 mg tablet 5 mg PO TID PRN muscle spa sm #30 04/11/24 tabs naproxen 500 mg tablet 500 mg PO BID PRN pain #30 t abs 04/11/24 ibuprofen 600 mg tablet 600 mg PO Q8H PRN pain #20 t abs 11/03/24 acetaminophen 500 mg capsule 500 mg PO Q6H PRN pain #3 0 caps 12/03/24 acetaminophen 500 mg capsule 500 mg PO Q6H PRN pain #3 0 caps 12/15/24 cyclobenzaprine 5 mg tablet 5 mg PO TID PRN muscle spa sm #15 12/20/24 tabs lidocaine 5 % topical patch 2 patch topical QDAY PRN p ain #30 12/20/24 (Lidoderm) ea Allergies Allergy/AdvReac Type Severity Reaction Status Date / Time No Known Allergies Allergy Verified 12/28/24 08:32 Review of Systems Review of Systems Systems Reviewed: All systems reviewed, normal except as documented Narrative Review of Systems: Gen: No fever, no chills, no weight loss EYES: No discharge, no visual changes, no pain HEENT: No ear pain, no congestion, no sore throat PULM: No shortness of breath, no cough, no congestion CV: No chest pain, no dyspnea on exertion, no palpitations GI: No nausea, no vomiting, no diarrhea, no pain, no constipation : No frequency, no urgency, no dysuria Musc/skel: Bilateral leg pain pain, no back pain Skin: No rash Psyc: No hallucinations, no depression Heme/Lymph: No easy bleeding or bruising tendencies Neuro: No weakness, no headache ED Exam Narrative Physical exam: Disheveled 44-year-old awake and alert male General Limitations: Present no limitations General appearance: Present alert and in no apparent distress Head Head exam: Present atraumatic Eye Eye exam: Present normal appearance, PERRL and EOMI ENT ENT exam: Present normal exam, normal oropharynx and mucous membranes moist Neck Neck exam: Present normal inspection, full ROM and trachea midline Chest Chest inspection: Present normal inspection and symmetric chest wall rise Respiratory Respiratory exam: Present normal lung sounds bilaterally Cardiovascular Cardiovascular exam: Present regular rate, normal rhythm and normal heart sounds Abdominal Exam Abdominal exam: Present soft and normal bowel sounds Extremities Exam Extremities exam: Present full ROM Expanded Lower Extremity Exam Hip/Pelvis exam: Present normal inspection Upper leg exam: Present normal inspection Knee exam: Present normal inspection Lower leg exam: Present normal inspection Ankle exam: Present normal inspection Back Exam Back exam: Present normal inspection and full ROM Neurological Exam Neurological exam: Present alert, oriented X3 and CN II-XII intact Psychiatric Psychiatric exam: Present normal affect and normal mood Skin Skin exam: Present warm, dry, intact and normal color Course Quality Measures none Orders Category Date Time Status Acetaminophen Tab [Tylenol ES Tab] Med 12/28/24 09:17 Discontinued 1,000 mg PO X1 ONE Vital Signs Vital signs: Vital Signs Temperature 98.8 F 12/28/24 08:49 Pulse Rate 74 12/28/24 08:49 Respiratory Rate 16 12/28/24 08:49 Blood Pressure 116/81 12/28/24 08:49 Pulse Oximetry (%) 99 12/28/24 08:49 Oxygen Delivery Method Room Air 12/28/24 08:49 Extremity Injury, Lower Patient data External records reviewed:: [facility] previous records Clinical information provided by:: patient Social determinants that could affect healthcare access:: none Patient has the following chronic illnesses:: Homelessness, drug abuse, How is presenting disease/condition affected by chronic disease/condition?: no chronic disease Evaluation data The following diagnostics were reviewed and interpreted by me:: radiology exam(s) Lab and/or radiology exams considered but not ordered:: No Interpretation Summary: Not applicable Medications / Prescriptions Medications or Prescriptions considered but not ordered:: No Medication administrations:: Medication Administration History Discontinued Medications Acetaminophen (Acetaminophen 500 Mg Tablet) 1,000 mg PO X1 ONE Stop: 12/28/24 09:18 Last Admin: 12/28/24 09:30 Dose: 1,000 mg Documented By: GM All medications administered and effective Consultations Consultation(s) initiated? (list below): No Diagnosis Extremity Injury, Lower Differential Diagnosis: ankle sprain and strain and puncture wound of foot Most likely diagnosis given after review of the tests above:: Bilateral feet pain Admission Indicated Admission indicated?: not indicated Admission Request Was there a request for admission?: No Disposition Plan Disposition Plan: Discharge Discharge Attestation Discharge Attestation: The patient and all family members were given an opportunity to ask questions and understood the discharge instructions. Discharge instructions specifically effects, indications for sooner follow up or return to the emergency department, and the expected course of current diagnosis. Patient condition: Stable Discharge Plan Plan Patient Disposition: HOME (Self Care) Patient condition on transfer: Stable Prescriptions/Referrals Prescriptions/Med Rec: No Action naproxen 500 mg tablet 500 mg PO BID PRN (Reason: pain) Qty: 30 0RF cyclobenzaprine 5 mg tablet 5 mg PO TID PRN (Reason: muscle spasm) Qty: 30 0RF naproxen 500 mg tablet 500 mg PO BID PRN (Reason: pain) Qty: 30 0RF baclofen 10 mg tablet 10 mg PO BID PRN (Reason: muscle spasm) Qty: 30 0RF ibuprofen 800 mg tablet 800 mg PO TID PRN (Reason: pain) Qty: 30 0RF ibuprofen 800 mg tablet 800 mg PO TID PRN (Reason: pain) Qty: 30 0RF ibuprofen 600 mg tablet 600 mg PO Q6H PRN (Reason: pain) Qty: 30 0RF ibuprofen 600 mg tablet 600 mg PO Q8H PRN (Reason: pain) Qty: 20 0RF acetaminophen 500 mg capsule 500 mg PO Q6H PRN (Reason: pain) Qty: 30 0RF lidocaine [Lidoderm] 5 % adhesive patch,medicated 2 patch topical QDAY PRN (Reason: pain) Qty: 30 0RF Rx Instructions: leave on most painful area for up to 12 hrs cyclobenzaprine 5 mg tablet 5 mg PO TID PRN (Reason: muscle spasm) Qty: 15 0RF sulfamethoxazole-trimethoprim [Bactrim DS] 800-160 mg tablet 1 tab PO BID Qty: 14 0RF naproxen 500 mg tablet 500 mg PO BID PRN (Reason: pain) Qty: 30 0RF tamsulosin [Flomax] 0.4 mg capsule 0.4 mg PO QDAY Qty: 30 0RF ibuprofen 600 mg tablet 600 mg PO Q6H PRN (Reason: pain) Qty: 30 0RF methocarbamol 500 mg tablet 1,000 mg PO Q8H PRN (Reason: pain) Qty: 30 0RF naproxen [Naprosyn] 500 mg tablet 500 mg PO BID Qty: 14 0RF ibuprofen 600 mg tablet 600 mg PO Q6H PRN (Reason: fever or pain) Qty: 30 0RF cyclobenzaprine 5 mg tablet 5 mg PO TID PRN (Reason: muscle spasm) Qty: 14 0RF naproxen 500 mg tablet 500 mg PO BID PRN (Reason: pain) Qty: 30 0RF cyclobenzaprine 5 mg tablet 5 mg PO TID PRN (Reason: muscle spasm) Qty: 30 0RF acetaminophen 500 mg capsule 500 mg PO Q6H PRN (Reason: pain) Qty: 30 0RF Referrals: Lavell (PCP),MD Cody [Primary Care Provider] - In 1 week Problem List Clinical Impression: Chronic leg pain Patient/Caregiver Discharge Instructions Discharge Activity: activity as tolerated Education Materials: ED Muscle Strain, Extremity Additional Instructions: Please make sure you follow-up with your primary doctor. Return to the emergency department this any worsening symptoms change in condition. Print Language: Grenadian Stand Alone Forms: Tami Award Info., Patient Portal Info Letter PA/HOOK AND EYE ATTACHER Supervising Physician PA/DEVYN Supervising Physician: dr cortez
== END 2024-12-28 10:16 | disposition home or self-care (01) ==
PROVIDERS: Emergency Provider Emergency Medicine; PCP Family Medicine
DX: G89.29 Other chronic pain (principal); M79.605 Pain in left leg; M79.604 Pain in right leg; F19.10 Other psychoactive substance abuse, uncomplicated; Z86.73 Personal history of transient ischemic attack (TIA), and cerebral infarction without residual deficits; Z59.00 Homelessness unspecified
CPT/HCPCS: 99282; A9270

== ENCOUNTER 2024-12-28 17:07 | Emergency (ER) | payer MEDICAID, SELFPAY ==
[2024-12-28 17:13] VITALS: PULSE 92; RESP 18; O2SAT 98; BMI 23.5
--- NOTE | 2024-12-28 17:18 | EDNOTE_ITS ---
<Statement entered by Annemarie Cortez MD - 12/29/24 13:49> As co-signing physician, I was present and available for consult prn. I concur with the plan and care as documented by the midlevel provider. ED Extremity Problem RME/HPI General Chief complaint: Back Pain/Injury Stated complaint: LEG PAIN Time Seen by Provider: 12/28/24 17:16 Arrival date/time: 12/28/24 17:07 RME / HPI RME / HPI Narrative: 44-year-old male patient with significant history of chronic leg pain, schizophrenia, homelessness, came in with EMS for evaluation regarding bilateral lower leg pain. This been ongoing for several weeks,as chronic leg pain, described as dull ache, severity mild. Patient was seen here earlier this morning for the same complaints. Patient denies any trauma denies any other complaints patient is ambulatory. Patient was noted to be barefooted on the right foot. Related Data Previous Rx's ?Medication ?Instructions ?Recorded sulfamethoxazole 800 1 tab PO BID #14 tabs mg-trimethoprim 160 mg tablet (Bactrim DS) cyclobenzaprine 5 mg tablet 5 mg PO TID PRN muscle spa sm #30 07/23/23 tabs naproxen 500 mg tablet 500 mg PO BID PRN pain #30 t abs 07/23/23 naproxen 500 mg tablet 500 mg PO BID PRN pain #30 t abs 08/08/23 tamsulosin 0.4 mg capsule (Flomax) 0.4 mg PO QDAY #30 caps 08/08/23 baclofen 10 mg tablet 10 mg PO BID PRN muscle spas m #30 08/14/23 tabs naproxen 500 mg tablet 500 mg PO BID PRN pain #30 t abs 08/14/23 ibuprofen 800 mg tablet 800 mg PO TID PRN pain #30 t abs 08/28/23 ibuprofen 600 mg tablet 600 mg PO Q6H PRN pain #30 t abs 01/27/24 methocarbamol 500 mg tablet 1,000 mg (2 x 500 mg) PO Q 8H PRN 01/27/24 pain #30 tabs naproxen 500 mg tablet (Naprosyn) 500 mg PO BID #14 ta bs 03/15/24 ibuprofen 800 mg tablet 800 mg PO TID PRN pain #30 t abs 04/02/24 cyclobenzaprine 5 mg tablet 5 mg PO TID PRN muscle spa sm #14 04/07/24 tabs ibuprofen 600 mg tablet 600 mg PO Q6H PRN fever or p ain 04/07/24 #30 tabs ibuprofen 600 mg tablet 600 mg PO Q6H PRN pain #30 t abs 04/07/24 cyclobenzaprine 5 mg tablet 5 mg PO TID PRN muscle spa sm #30 04/11/24 tabs naproxen 500 mg tablet 500 mg PO BID PRN pain #30 t abs 04/11/24 ibuprofen 600 mg tablet 600 mg PO Q8H PRN pain #20 t abs 11/03/24 acetaminophen 500 mg capsule 500 mg PO Q6H PRN pain #3 0 caps 12/03/24 acetaminophen 500 mg capsule 500 mg PO Q6H PRN pain #3 0 caps 12/15/24 cyclobenzaprine 5 mg tablet 5 mg PO TID PRN muscle spa sm #15 12/20/24 tabs lidocaine 5 % topical patch 2 patch topical QDAY PRN p ain #30 12/20/24 (Lidoderm) ea Allergies Allergy/AdvReac Type Severity Reaction Status Date / Time No Known Allergies Allergy Verified 12/28/24 08:32 Review of Systems Review of Systems Narrative Review of Systems: Review of system reviewed and within normal limits except mentioned in HPI ED Exam Narrative Physical exam: VITAL SIGNS: Reviewed. GENERAL APPEARANCE: Alert and interactive, follows commands, no acute distress, HEAD AND FACE: Non-traumatic. ENT: PERRL, pink conjunctivitis, eyelid no trauma, Mucous membrane moist. NECK: Supple, nontender, no nuchal rigidity. CHEST: No tenderness, no crepitus, no paradoxical movement, no retractions. LUNGS: Clear, well ventilated, symmetric, no rales, no wheezing, no ronchi, no stridor, good breath sounds bilaterally. HEART: Regular rate, regular rhythm, no murmur, no gallops. ABDOMEN: Soft, positive bowel sounds, nondistended, no guarding, nontender, no rebound, no masses, RECTAL: Deferred. GENITAL: Deferred. NEUROLOGICAL: Gross motor function intact sensory function intact, Appropriate for age. MUSCULOSKELETAL: low back nontender, full range of motion. EXTREMITIES: No redness no swelling no skin breakdown on bilateral foot and leg. Distal neurovascular status intact bilateral foot, SKIN: Color pink, dry, no rash, no lacerations, no abrasions, no contusions. LYMPHATICS: Deferred. Course Quality Measures none Orders Category Date Time Status Ibuprofen Tab [Motrin Tab] Med 12/28/24 17:17 Discontinued 800 mg PO X1 ONE Vital Signs Vital signs: Vital Signs Temperature 99.2 F 12/28/24 17:20 Pulse Rate 84 12/28/24 17:20 Respiratory Rate 16 12/28/24 17:20 Blood Pressure 130/72 12/28/24 17:20 Pulse Oximetry (%) 99 12/28/24 17:20 Oxygen Delivery Method Room Air 12/28/24 17:20 Extremity Problem MDM Narrative MDM Narrative:: 44-year-old male patient with significant history of chronic leg pain, schizophrenia, homelessness, came in with EMS for evaluation regarding bilateral lower leg pain. This been ongoing for several weeks,as chronic leg pain, described as dull ache, severity mild. Patient was seen here earlier this morning for the same complaints. Patient denies any trauma denies any other complaints patient is ambulatory. Patient was noted to be barefooted on the right foot. Patient was given shoes in the emergency room Patient eloped Patient data External records reviewed:: None Clinical information provided by:: patient Social determinants that could affect healthcare access:: none Patient has the following chronic illnesses:: Homelessness, chronic leg pain How is presenting disease/condition affected by chronic disease/condition?: exacerbated by Evaluation data The following diagnostics were reviewed and interpreted by me:: other (specify) (None) Lab and/or radiology exams considered but not ordered:: None Interpretation Summary: None Medications / Prescriptions Medications or Prescriptions considered but not ordered:: None Medication administrations:: Medication Administration History Discontinued Medications Ibuprofen (Ibuprofen Tab 400 Mg Tablet) 800 mg PO X1 ONE Stop: 12/28/24 17:18 Motrin Consultations Consultation(s) initiated? (list below): No Diagnosis Extremity Problem Differential Diagnosis: cellulitis, lower extremity edema and other (Chronic leg pain) Most likely diagnosis given after review of the tests above:: Chronic leg pain Admission Indicated Admission indicated?: not indicated Admission Request Was there a request for admission?: No Disposition Plan Disposition Plan: other (specify) (Elopement) Discharge Plan Plan Patient Disposition: Elopement Disposition Comment: Stable Prescriptions/Referrals Prescriptions/Med Rec: No Action naproxen 500 mg tablet 500 mg PO BID PRN (Reason: pain) Qty: 30 0RF cyclobenzaprine 5 mg tablet 5 mg PO TID PRN (Reason: muscle spasm) Qty: 30 0RF naproxen 500 mg tablet 500 mg PO BID PRN (Reason: pain) Qty: 30 0RF baclofen 10 mg tablet 10 mg PO BID PRN (Reason: muscle spasm) Qty: 30 0RF ibuprofen 800 mg tablet 800 mg PO TID PRN (Reason: pain) Qty: 30 0RF ibuprofen 800 mg tablet 800 mg PO TID PRN (Reason: pain) Qty: 30 0RF ibuprofen 600 mg tablet 600 mg PO Q6H PRN (Reason: pain) Qty: 30 0RF ibuprofen 600 mg tablet 600 mg PO Q8H PRN (Reason: pain) Qty: 20 0RF acetaminophen 500 mg capsule 500 mg PO Q6H PRN (Reason: pain) Qty: 30 0RF lidocaine [Lidoderm] 5 % adhesive patch,medicated 2 patch topical QDAY PRN (Reason: pain) Qty: 30 0RF Rx Instructions: leave on most painful area for up to 12 hrs cyclobenzaprine 5 mg tablet 5 mg PO TID PRN (Reason: muscle spasm) Qty: 15 0RF sulfamethoxazole-trimethoprim [Bactrim DS] 800-160 mg tablet 1 tab PO BID Qty: 14 0RF naproxen 500 mg tablet 500 mg PO BID PRN (Reason: pain) Qty: 30 0RF tamsulosin [Flomax] 0.4 mg capsule 0.4 mg PO QDAY Qty: 30 0RF ibuprofen 600 mg tablet 600 mg PO Q6H PRN (Reason: pain) Qty: 30 0RF methocarbamol 500 mg tablet 1,000 mg PO Q8H PRN (Reason: pain) Qty: 30 0RF naproxen [Naprosyn] 500 mg tablet 500 mg PO BID Qty: 14 0RF ibuprofen 600 mg tablet 600 mg PO Q6H PRN (Reason: fever or pain) Qty: 30 0RF cyclobenzaprine 5 mg tablet 5 mg PO TID PRN (Reason: muscle spasm) Qty: 14 0RF naproxen 500 mg tablet 500 mg PO BID PRN (Reason: pain) Qty: 30 0RF cyclobenzaprine 5 mg tablet 5 mg PO TID PRN (Reason: muscle spasm) Qty: 30 0RF acetaminophen 500 mg capsule 500 mg PO Q6H PRN (Reason: pain) Qty: 30 0RF Referrals: Lavell (PCP),MD Cody [Primary Care Provider] - In 1 week Problem List Clinical Impression: Chronic leg pain Patient/Caregiver Discharge Instructions Print Language: [place]
[2024-12-28 17:20] VITALS: BP 130/72; PULSE 84; RESP 16; TEMP 37.3; O2SAT 99
--- NOTE | 2024-12-28 17:53 | PC.NURSE ---
Patient provided orthopedic shoes and then eloped.
== END 2024-12-28 17:52 | disposition left against medical advice (07) ==
PROVIDERS: Emergency Provider Emergency Medicine; PCP Family Medicine
DX: G89.29 Other chronic pain (principal); M79.605 Pain in left leg; M79.604 Pain in right leg; F20.9 Schizophrenia, unspecified; Z59.00 Homelessness unspecified; Z53.29 Procedure and treatment not carried out because of patient's decision for other reasons
CPT/HCPCS: 99281

== ENCOUNTER 2024-12-29 05:36 | Emergency (ER) | payer MEDICAID, SELFPAY ==
[2024-12-29 05:45] VITALS: BP 146/87; PULSE 99; RESP 19; TEMP 37.1; O2SAT 95
--- NOTE | 2024-12-29 06:49 | EDNOTE_ITS ---
<Statement entered by Annemarie Cortez MD - 12/29/24 13:49> As co-signing physician, I was present and available for consult prn. I concur with the plan and care as documented by the midlevel provider. ED General RME/HPI General Chief complaint: General Adult/Misc Complain Stated complaint: LEG PAIN Time Seen by Provider: 12/29/24 06:26 Arrival date/time: 12/29/24 05:36 This is a 4-year-old male well-known to me presents the emergency department today requesting food and Toradol shot for chronic leg pain. Patient was seen here yesterday several times and days prior. Patient is homeless reports he has been unable to get food this morning and that is why he is actually here. Patient requesting a sandwich. Patient reports no saddle anesthesia no loss of bowel or bladder no fever nausea vomiting. Patient denies any numbness or tingling. Patient denies any loss of sensation to bilateral extremities. Patient ambulatory with no issues. Patient wearing orthopedic shoe to bilateral feet because he does not have any issues walking. Patient denies fever chills cough runny nose or any other symptoms. Patient reports history of a stroke in the past patient also has a history of marijuana and methamphetamine use. He is homeless. Related Data Previous Rx's ?Medication ?Instructions ?Recorded sulfamethoxazole 800 1 tab PO BID #14 tabs mg-trimethoprim 160 mg tablet (Bactrim DS) cyclobenzaprine 5 mg tablet 5 mg PO TID PRN muscle spa sm #30 07/23/23 tabs naproxen 500 mg tablet 500 mg PO BID PRN pain #30 t abs 07/23/23 naproxen 500 mg tablet 500 mg PO BID PRN pain #30 t abs 08/08/23 tamsulosin 0.4 mg capsule (Flomax) 0.4 mg PO QDAY #30 caps 08/08/23 baclofen 10 mg tablet 10 mg PO BID PRN muscle spas m #30 08/14/23 tabs naproxen 500 mg tablet 500 mg PO BID PRN pain #30 t abs 08/14/23 ibuprofen 800 mg tablet 800 mg PO TID PRN pain #30 t abs 08/28/23 ibuprofen 600 mg tablet 600 mg PO Q6H PRN pain #30 t abs 01/27/24 methocarbamol 500 mg tablet 1,000 mg (2 x 500 mg) PO Q 8H PRN 01/27/24 pain #30 tabs naproxen 500 mg tablet (Naprosyn) 500 mg PO BID #14 ta bs 03/15/24 ibuprofen 800 mg tablet 800 mg PO TID PRN pain #30 t abs 04/02/24 cyclobenzaprine 5 mg tablet 5 mg PO TID PRN muscle spa sm #14 04/07/24 tabs ibuprofen 600 mg tablet 600 mg PO Q6H PRN fever or p ain 04/07/24 #30 tabs ibuprofen 600 mg tablet 600 mg PO Q6H PRN pain #30 t abs 04/07/24 cyclobenzaprine 5 mg tablet 5 mg PO TID PRN muscle spa sm #30 04/11/24 tabs naproxen 500 mg tablet 500 mg PO BID PRN pain #30 t abs 04/11/24 ibuprofen 600 mg tablet 600 mg PO Q8H PRN pain #20 t abs 11/03/24 acetaminophen 500 mg capsule 500 mg PO Q6H PRN pain #3 0 caps 12/03/24 acetaminophen 500 mg capsule 500 mg PO Q6H PRN pain #3 0 caps 12/15/24 cyclobenzaprine 5 mg tablet 5 mg PO TID PRN muscle spa sm #15 12/20/24 tabs lidocaine 5 % topical patch 2 patch topical QDAY PRN p ain #30 12/20/24 (Lidoderm) ea Allergies Allergy/AdvReac Type Severity Reaction Status Date / Time No Known Allergies Allergy Verified 12/28/24 08:32 Review of Systems Review of Systems Systems Reviewed: All systems reviewed, normal except as documented Past Medical History Past Medical History NEUROLOGIC: Positive Cerebrovascular Accident; Negative Neurological Disorders CARDIAC: Positive Myocardial Infarction and Hypercholesterolemia; Negative Cardiac Disorders or Congestive Heart Failure RESPIRATORY: Negative Chronic Obstructive Pulmonary Disease (COPD) GASTROINTESTINAL: Negative Gastrointestinal Disorders GENITOURINARY: Negative Genitourinary Disorders or Renal Disease MUSCULOSKELETAL: Negative Musculoskeletal Disorders ENDOCRINE: Negative Endocrine Disorders, Diabetes Mellitus Type 1 or Diabetes Mellitus Type 2 HEMATOLOGIC: Negative Blood Disorders OTHER HISTORY: Negative Autoimmune Disease or Clostridium Difficile Social History SMOKING STATUS: Current every day smoker SUBSTANCE USE: methamphetamine ED Exam Narrative Physical exam: VITAL SIGNS: Reviewed. GENERAL APPEARANCE: Alert and interactive, follows commands, no acute distress, HEAD AND FACE: Non-traumatic. ENT: PERRL, pink conjunctivitis, eyelid no trauma, Mucous membrane moist. NECK: Supple, nontender, no nuchal rigidity. CHEST: No tenderness, no crepitus, no paradoxical movement, no retractions. LUNGS: Clear, well ventilated, symmetric, no rales, no wheezing, no ronchi, no stridor, good breath sounds bilaterally. HEART: Regular rate, regular rhythm, no murmur, no gallops. ABDOMEN: Soft, nondistended, no guarding, nontender, no rebound, no masses, NEUROLOGICAL: Gross motor function intact sensory function intact, Appropriate for age. MUSCULOSKELETAL: low back nontender, full range of motion. EXTREMITIES: No redness no swelling no skin breakdown on bilateral foot and leg. Distal neurovascular status intact bilateral foot SKIN: Color pink, dry, no rash, no lacerations, no abrasions, no contusions. Course Quality Measures none Orders Category Date Time Status Acetaminophen Tab [Tylenol ES Tab] Med 12/29/24 06:47 Discontinued 1,000 mg PO X1 ONE Ketorolac Inj [Toradol Inj] Med 12/29/24 06:47 Discontinued 60 mg IM X1 ONE Vital Signs Vital signs: Vital Signs Temperature 98.7 F 12/29/24 05:45 Pulse Rate 99 12/29/24 05:45 Respiratory Rate 19 12/29/24 05:45 Blood Pressure 146/87 H 12/29/24 05:45 Pulse Oximetry (%) 95 12/29/24 05:45 Oxygen Delivery Method Room Air 12/29/24 05:45 [facility] Patient data External records reviewed:: [facility] previous records Clinical information provided by:: patient Social determinants that could affect healthcare access:: none Patient has the following chronic illnesses:: see note How is presenting disease/condition affected by chronic disease/condition?: no chronic disease Evaluation data The following diagnostics were reviewed and interpreted by me:: other (specify) (none ) Lab and/or radiology exams considered but not ordered:: None Interpretation Summary: None Medications Medications considered but not ordered:: None Medication administrations:: Medication Administration History Discontinued Medications Acetaminophen (Acetaminophen 500 Mg Tablet) 1,000 mg PO X1 ONE Stop: 12/29/24 06:48 Last Admin: 12/29/24 06:55 Dose: 1,000 mg Documented By: CVL Ketorolac Tromethamine (Ketorolac Inj 60 Mg/2 Ml Vial) 60 mg IM X1 ONE Stop: 12/29/24 06:48 Last Admin: 12/29/24 06:58 Dose: 60 mg Documented By: HOLLY See [facility] Consultations Consultation(s) initiated? (list below): No Diagnosis Differential Diagnosis ED Complaint MDM: Leg pain, leg contusion, leg sprain Most likely diagnosis given after review of the tests above:: Chronic leg pain Admission Indicated Admission indicated?: not indicated Explain why admission is indicated or not indicated:: Not needed. Admission Request Was there a request for admission?: No Disposition Plan Disposition Plan: Discharge Discharge Attestation Discharge Attestation: The patient and all family members were given an opportunity to ask questions and understood the discharge instructions. Discharge instructions specifically effects, indications for sooner follow up or return to the emergency department, and the expected course of current diagnosis. Patient condition: Stable Medical Decision Making MDM Narrative MDM Narrative: Patient requested a sandwich. Will give patient a pain shot of Toradol and Tylenol. Patient told to follow-up with his primary provider in 1 to 2 days. Come back to the emergency room if symptoms change or worsen. Patient verbalizes understanding Differential Diagnosis Differential Diagnosis: Leg pain, leg contusion, leg sprain Discharge Plan Plan Patient Disposition: HOME (Self Care) Patient condition on transfer: Stable Prescriptions/Referrals Prescriptions/Med Rec: No Action naproxen 500 mg tablet 500 mg PO BID PRN (Reason: pain) Qty: 30 0RF cyclobenzaprine 5 mg tablet 5 mg PO TID PRN (Reason: muscle spasm) Qty: 30 0RF naproxen 500 mg tablet 500 mg PO BID PRN (Reason: pain) Qty: 30 0RF baclofen 10 mg tablet 10 mg PO BID PRN (Reason: muscle spasm) Qty: 30 0RF ibuprofen 800 mg tablet 800 mg PO TID PRN (Reason: pain) Qty: 30 0RF ibuprofen 800 mg tablet 800 mg PO TID PRN (Reason: pain) Qty: 30 0RF ibuprofen 600 mg tablet 600 mg PO Q6H PRN (Reason: pain) Qty: 30 0RF ibuprofen 600 mg tablet 600 mg PO Q8H PRN (Reason: pain) Qty: 20 0RF acetaminophen 500 mg capsule 500 mg PO Q6H PRN (Reason: pain) Qty: 30 0RF lidocaine [Lidoderm] 5 % adhesive patch,medicated 2 patch topical QDAY PRN (Reason: pain) Qty: 30 0RF Rx Instructions: leave on most painful area for up to 12 hrs cyclobenzaprine 5 mg tablet 5 mg PO TID PRN (Reason: muscle spasm) Qty: 15 0RF sulfamethoxazole-trimethoprim [Bactrim DS] 800-160 mg tablet 1 tab PO BID Qty: 14 0RF naproxen 500 mg tablet 500 mg PO BID PRN (Reason: pain) Qty: 30 0RF tamsulosin [Flomax] 0.4 mg capsule 0.4 mg PO QDAY Qty: 30 0RF ibuprofen 600 mg tablet 600 mg PO Q6H PRN (Reason: pain) Qty: 30 0RF methocarbamol 500 mg tablet 1,000 mg PO Q8H PRN (Reason: pain) Qty: 30 0RF naproxen [Naprosyn] 500 mg tablet 500 mg PO BID Qty: 14 0RF ibuprofen 600 mg tablet 600 mg PO Q6H PRN (Reason: fever or pain) Qty: 30 0RF cyclobenzaprine 5 mg tablet 5 mg PO TID PRN (Reason: muscle spasm) Qty: 14 0RF naproxen 500 mg tablet 500 mg PO BID PRN (Reason: pain) Qty: 30 0RF cyclobenzaprine 5 mg tablet 5 mg PO TID PRN (Reason: muscle spasm) Qty: 30 0RF acetaminophen 500 mg capsule 500 mg PO Q6H PRN (Reason: pain) Qty: 30 0RF Problem List Clinical Impression: Chronic leg pain Patient/Caregiver Discharge Instructions Discharge Activity: activity as tolerated Education Materials: Managing Chronic Pain Additional Instructions: Follow up with primary provider in 1-2 days. Come back to ED if symptoms change or worsen. Print Language: Georgian Stand Alone Forms: Tami Award Info., Patient Portal Info Letter PA/CUTTING INSPECTOR Supervising Physician PA/CUTTING INSPECTOR Supervising Physician: [place]
[2024-12-29] MEDS: ACETAMINOPHEN 500 MG TABLET 1000 MG PO (06:55)
[2024-12-29] MEDS: KETOROLAC INJ 60 MG/2 ML VIAL IM (06:58)
[2024-12-29 07:21] VITALS: BP 133/90; PULSE 69; RESP 19; TEMP 36.6; O2SAT 100
== END 2024-12-29 08:27 | disposition home or self-care (01) ==
PROVIDERS: Emergency Provider Emergency Medicine
DX: G89.29 Other chronic pain (principal); M79.606 Pain in leg, unspecified; Z59.00 Homelessness unspecified; Z86.73 Personal history of transient ischemic attack (TIA), and cerebral infarction without residual deficits
CPT/HCPCS: 96372; 99283; J1885; A9270

== ENCOUNTER 2024-12-30 09:02 | Emergency (ER) | payer MEDICAID, SELFPAY ==
--- NOTE | 2024-12-30 09:12 | PD.EDEXREM ---
ED Extremity Problem RME/HPI General Chief complaint: General Adult/Misc Complain Stated complaint: CHRONIC LEG PAIN, HERE DAILY Time Seen by Provider: 12/30/24 09:04 Arrival date/time: 12/30/24 09:02 44-year-old male with chronic leg pain and homelessness as well as methamphetamine abuse presents to the emergency department today stating his leg pain there are no other associated symptoms or aggravating factors no other modifying factors, patient denies taking medication before coming to ER today Limitations: no limitations Related Data Previous Rx's ?Medication ?Instructions ?Recorded sulfamethoxazole 800 1 tab PO BID #14 tabs 03/09/23 mg-trimethoprim 160 mg tablet (Bactrim DS) cyclobenzaprine 5 mg tablet 5 mg PO TID PRN muscle spasm #30 07/23/23 tabs naproxen 500 mg tablet 500 mg PO BID PRN pain #30 tabs 07/23/23 naproxen 500 mg tablet 500 mg PO BID PRN pain #30 tabs 08/08/23 tamsulosin 0.4 mg capsule (Flomax) 0.4 mg PO QDAY #30 caps 08/08/23 baclofen 10 mg tablet 10 mg PO BID PRN muscle spasm #30 08/14/23 tabs naproxen 500 mg tablet 500 mg PO BID PRN pain #30 tabs 08/14/23 ibuprofen 800 mg tablet 800 mg PO TID PRN pain #30 tabs 08/28/23 ibuprofen 600 mg tablet 600 mg PO Q6H PRN pain #30 tabs 01/27/24 methocarbamol 500 mg tablet 1,000 mg (2 x 500 mg) PO Q8H PRN 01/27/24 pain #30 tabs naproxen 500 mg tablet (Naprosyn) 500 mg PO BID #14 tabs 03/15/24 ibuprofen 800 mg tablet 800 mg PO TID PRN pain #30 tabs 04/02/24 cyclobenzaprine 5 mg tablet 5 mg PO TID PRN muscle spasm #14 04/07/24 tabs ibuprofen 600 mg tablet 600 mg PO Q6H PRN fever or pain 04/07/24 #30 tabs ibuprofen 600 mg tablet 600 mg PO Q6H PRN pain #30 tabs 04/07/24 cyclobenzaprine 5 mg tablet 5 mg PO TID PRN muscle spasm #30 04/11/24 tabs naproxen 500 mg tablet 500 mg PO BID PRN pain #30 tabs 04/11/24 ibuprofen 600 mg tablet 600 mg PO Q8H PRN pain #20 tabs 11/03/24 acetaminophen 500 mg capsule 500 mg PO Q6H PRN pain #30 caps 12/03/24 acetaminophen 500 mg capsule 500 mg PO Q6H PRN pain #30 caps 12/15/24 cyclobenzaprine 5 mg tablet 5 mg PO TID PRN muscle spasm #15 12/20/24 tabs lidocaine 5 % topical patch 2 patch topical QDAY PRN pain #30 12/20/24 (Lidoderm) ea Allergies Allergy/AdvReac Type Severity Reaction Status Date / Time No Known Allergies Allergy Verified 12/30/24 09:10 Review of Systems Review of Systems Systems Reviewed: All systems reviewed, normal except as documented Constitutional Constitutional: Reports system reviewed and no additional complaints, except as documented, Denies fever(s) and Denies headache(s) Eyes Eyes: Reports system reviewed and no additional complaints, except as documented and Denies blurry vision ENT Ears, Nose, Mouth, and Throat: Reports system reviewed and no additional complaints, except as documented, Denies headache(s), Denies nasal congestion and Denies nasal discharge Cardiovascular Cardiovascular: Reports system reviewed and no additional complaints, except as documented, Denies chest pain and Denies dyspnea Respiratory Respiratory: Reports system reviewed and no additional complaints, except as documented, Denies chest congestion, Denies cough and Denies dyspnea Gastrointestinal Gastrointestinal: Reports system reviewed and no additional complaints, except as documented and Denies abdominal pain Integumentary/Breasts Skin/Breast: Reports system reviewed and no additional complaints, except as documented and Denies rash Neurologic Neurologic: Reports system reviewed and no additional complaints, except as documented, Reports as per HPI and Denies headache(s) Past Medical History Past Medical History NEUROLOGIC: Positive Cerebrovascular Accident; Negative Neurological Disorders CARDIAC: Positive Myocardial Infarction and Hypercholesterolemia; Negative Cardiac Disorders or Congestive Heart Failure RESPIRATORY: Negative Chronic Obstructive Pulmonary Disease (COPD) GASTROINTESTINAL: Negative Gastrointestinal Disorders GENITOURINARY: Negative Genitourinary Disorders or Renal Disease MUSCULOSKELETAL: Negative Musculoskeletal Disorders ENDOCRINE: Negative Endocrine Disorders, Diabetes Mellitus Type 1 or Diabetes Mellitus Type 2 HEMATOLOGIC: Negative Blood Disorders OTHER HISTORY: Negative Autoimmune Disease or Clostridium Difficile Social History SMOKING STATUS: Never smoker SUBSTANCE USE: methamphetamine ED Exam General Limitations: Present no limitations General appearance: Present alert and in no apparent distress Head Head exam: Present atraumatic, normocephalic and normal inspection Eye Eye exam: Present normal appearance, PERRL and EOMI; Absent conjunctival injection ENT ENT exam: Present normal exam, normal oropharynx and mucous membranes moist Neck Neck exam: Present normal inspection, full ROM and trachea midline Chest Chest inspection: Present normal inspection and symmetric chest wall rise Respiratory Respiratory exam: Present normal lung sounds bilaterally Cardiovascular Cardiovascular exam: Present regular rate, normal rhythm and normal heart sounds Abdominal Exam Abdominal exam: Present soft and normal bowel sounds; Absent distention or tenderness Extremities Exam Extremities exam: Present normal inspection and full ROM; Absent tenderness Back Exam Back exam: Present normal inspection and full ROM Neurological Exam Neurological exam: Present alert, oriented X3, CN II-XII intact, normal gait and reflexes normal; Absent motor sensory deficit Psychiatric Psychiatric exam: Present normal affect and normal mood Skin Skin exam: Present warm, dry, intact and normal color Course Quality Measures none Vital Signs Vital signs: Vital Signs Temperature 98.5 F 12/30/24 09:27 Pulse Rate 88 12/30/24 09:27 Respiratory Rate 18 12/30/24 09:27 Blood Pressure 135/92 H 12/30/24 09:27 Pulse Oximetry (%) 99 12/30/24 09:27 Oxygen Delivery Method Room Air 12/30/24 09:27 O2 saturation 99% on room air within normal limits Extremity Problem MDM Narrative MDM Narrative:: 44-year-old male with chronic leg pain and homelessness as well as methamphetamine abuse presents to the emergency department today stating his leg pain there are no other associated symptoms or aggravating factors no other modifying factors, patient denies taking medication before coming to ER today On exam patient well-appearing patient does not appear ill or toxic and in no acute distress At this time I do not believe any imaging is indicated Patient reports he has no issues or socks patient was given a new pair of socks and I gave him my shoes Patient was given food Patient discharged home in no distress to follow-up with primary care doctor in the next 24 to 48 hours and for any worsening symptoms to return to the ER immediately Patient data External records reviewed:: [facility] previous records Clinical information provided by:: patient Social determinants that could affect healthcare access:: substance use Patient has the following chronic illnesses:: Substance abuse chronic chronic leg pain How is presenting disease/condition affected by chronic disease/condition?: caused by Evaluation data The following diagnostics were reviewed and interpreted by me:: other (specify) Lab and/or radiology exams considered but not ordered:: N/A Interpretation Summary: N/A Medications / Prescriptions Medications or Prescriptions considered but not ordered:: Given Medication administrations:: Given Consultations Consultation(s) initiated? (list below): No Diagnosis Extremity Problem Differential Diagnosis: other (Chronic leg pain, knee pain, sprain, homeless) Most likely diagnosis given after review of the tests above:: Chronic leg pain Admission Indicated Admission indicated?: not indicated Admission Request Was there a request for admission?: No Disposition Plan Disposition Plan: Discharge Discharge Attestation Discharge Attestation: The patient and all family members were given an opportunity to ask questions and understood the discharge instructions. Discharge instructions specifically effects, indications for sooner follow up or return to the emergency department, and the expected course of current diagnosis. Patient condition: Stable Discharge Plan Plan Patient Disposition: HOME (Self Care) Disposition Comment: Stable Prescriptions/Referrals Prescriptions/Med Rec: No Action naproxen 500 mg tablet 500 mg PO BID PRN (Reason: pain) Qty: 30 0RF cyclobenzaprine 5 mg tablet 5 mg PO TID PRN (Reason: muscle spasm) Qty: 30 0RF naproxen 500 mg tablet 500 mg PO BID PRN (Reason: pain) Qty: 30 0RF baclofen 10 mg tablet 10 mg PO BID PRN (Reason: muscle spasm) Qty: 30 0RF ibuprofen 800 mg tablet 800 mg PO TID PRN (Reason: pain) Qty: 30 0RF ibuprofen 800 mg tablet 800 mg PO TID PRN (Reason: pain) Qty: 30 0RF ibuprofen 600 mg tablet 600 mg PO Q6H PRN (Reason: pain) Qty: 30 0RF ibuprofen 600 mg tablet 600 mg PO Q8H PRN (Reason: pain) Qty: 20 0RF acetaminophen 500 mg capsule 500 mg PO Q6H PRN (Reason: pain) Qty: 30 0RF lidocaine [Lidoderm] 5 % adhesive patch,medicated 2 patch topical QDAY PRN (Reason: pain) Qty: 30 0RF Rx Instructions: leave on most painful area for up to 12 hrs cyclobenzaprine 5 mg tablet 5 mg PO TID PRN (Reason: muscle spasm) Qty: 15 0RF sulfamethoxazole-trimethoprim [Bactrim DS] 800-160 mg tablet 1 tab PO BID Qty: 14 0RF naproxen 500 mg tablet 500 mg PO BID PRN (Reason: pain) Qty: 30 0RF tamsulosin [Flomax] 0.4 mg capsule 0.4 mg PO QDAY Qty: 30 0RF ibuprofen 600 mg tablet 600 mg PO Q6H PRN (Reason: pain) Qty: 30 0RF methocarbamol 500 mg tablet 1,000 mg PO Q8H PRN (Reason: pain) Qty: 30 0RF naproxen [Naprosyn] 500 mg tablet 500 mg PO BID Qty: 14 0RF ibuprofen 600 mg tablet 600 mg PO Q6H PRN (Reason: fever or pain) Qty: 30 0RF cyclobenzaprine 5 mg tablet 5 mg PO TID PRN (Reason: muscle spasm) Qty: 14 0RF naproxen 500 mg tablet 500 mg PO BID PRN (Reason: pain) Qty: 30 0RF cyclobenzaprine 5 mg tablet 5 mg PO TID PRN (Reason: muscle spasm) Qty: 30 0RF acetaminophen 500 mg capsule 500 mg PO Q6H PRN (Reason: pain) Qty: 30 0RF Problem List Clinical Impression: Chronic pain, Homeless Patient/Caregiver Discharge Instructions Additional Instructions: Please follow up with your primary care doctor in the next 24-48hrs for any worsening symptoms return here immediately Print Language: Divehi Stand Alone Forms: Tami Award Info., Patient Portal Info Letter PA/COMPUTER SOFTWARE ENGINEER Supervising Physician PA/COMPUTER SOFTWARE ENGINEER Supervising Physician: Dr Rosa
[2024-12-30 09:27] VITALS: BP 135/92; PULSE 88; RESP 18; TEMP 36.9; O2SAT 99
== END 2024-12-30 09:59 | disposition home or self-care (01) ==
LOC: SERX 10:20
PROVIDERS: Emergency Provider Emergency Medicine; PCP Family Medicine
DX: G89.29 Other chronic pain (principal); M79.606 Pain in leg, unspecified; F15.10 Other stimulant abuse, uncomplicated; Z59.00 Homelessness unspecified
CPT/HCPCS: 99281

== ENCOUNTER 2025-03-26 23:00 | Emergency (ER) | payer MEDICAID, SELFPAY ==
[2025-03-26 23:01] VITALS: BMI 27.2
[2025-03-27 00:38] VITALS: BP 133/88; PULSE 101; RESP 20; TEMP 36.9; O2SAT 98
[2025-03-27] MEDS: NAPROXEN 250 MG TABLET 500 MG PO (01:11)
--- NOTE | 2025-03-27 02:46 | EDNOTE_ITS ---
ED Back Injury Pain RME/HPI General Chief Complaint: Back Pain/Injury Stated Complaint: BACK PAIN ALL DAY Time Seen by Provider: 03/27/25 01:02 Arrival date/time: 03/26/25 23:00 44M with history of drug use, homelessness, and chronic back pain presents to ED with chronic lower back and leg pain. Patient denies fevers/chills, leg swelling, paresthesia, bowel/bladder incontinence, SOB, dysuria, and hematuria. Patient would also like some food. Limitations: no limitations Related Data Previous Rx's ?Medication ?Instructions ?Recorded sulfamethoxazole 800 1 tab PO BID #14 tabs mg-trimethoprim 160 mg tablet (Bactrim DS) cyclobenzaprine 5 mg tablet 5 mg PO TID PRN muscle spa sm #30 07/23/23 tabs naproxen 500 mg tablet 500 mg PO BID PRN pain #30 t abs 07/23/23 naproxen 500 mg tablet 500 mg PO BID PRN pain #30 t abs 08/08/23 tamsulosin 0.4 mg capsule (Flomax) 0.4 mg PO QDAY #30 caps 08/08/23 baclofen 10 mg tablet 10 mg PO BID PRN muscle spas m #30 08/14/23 tabs naproxen 500 mg tablet 500 mg PO BID PRN pain #30 t abs 08/14/23 ibuprofen 800 mg tablet 800 mg PO TID PRN pain #30 t abs 08/28/23 ibuprofen 600 mg tablet 600 mg PO Q6H PRN pain #30 t abs 01/27/24 methocarbamol 500 mg tablet 1,000 mg (2 x 500 mg) PO Q 8H PRN 01/27/24 pain #30 tabs naproxen 500 mg tablet (Naprosyn) 500 mg PO BID #14 ta bs 03/15/24 ibuprofen 800 mg tablet 800 mg PO TID PRN pain #30 t abs 04/02/24 cyclobenzaprine 5 mg tablet 5 mg PO TID PRN muscle spa sm #14 04/07/24 tabs ibuprofen 600 mg tablet 600 mg PO Q6H PRN fever or p ain 04/07/24 #30 tabs ibuprofen 600 mg tablet 600 mg PO Q6H PRN pain #30 t abs 04/07/24 cyclobenzaprine 5 mg tablet 5 mg PO TID PRN muscle spa sm #30 04/11/24 tabs naproxen 500 mg tablet 500 mg PO BID PRN pain #30 t abs 04/11/24 ibuprofen 600 mg tablet 600 mg PO Q8H PRN pain #20 t abs 11/03/24 acetaminophen 500 mg capsule 500 mg PO Q6H PRN pain #3 0 caps 12/03/24 acetaminophen 500 mg capsule 500 mg PO Q6H PRN pain #3 0 caps 12/15/24 cyclobenzaprine 5 mg tablet 5 mg PO TID PRN muscle spa sm #15 12/20/24 tabs lidocaine 5 % topical patch 2 patch topical QDAY PRN p ain #30 12/20/24 (Lidoderm) ea Allergies Allergy/AdvReac Type Severity Reaction Status Date / Time No Known Allergies Allergy Verified 03/26/25 23:00 Review of Systems Review of Systems Systems Reviewed: All systems reviewed, normal except as documented Constitutional Constitutional: Reports system reviewed and no additional complaints, except as documented, Denies fever(s) and Denies headache(s) ENT Ears, Nose, Mouth, and Throat: Denies disequilibrium and Denies headache(s) Cardiovascular Cardiovascular: Reports system reviewed and no additional complaints, except as documented, Denies chest pain and Denies dyspnea Respiratory Respiratory: Reports system reviewed and no additional complaints, except as doc umented, Denies cough and Denies dyspnea Gastrointestinal Gastrointestinal: Reports system reviewed and no additional complaints, except as documented, Denies abdominal pain, Denies nausea and Denies vomiting Musculoskeletal Musculoskeletal: Reports as per HPI and Reports back pain Neurologic Neurologic: Reports system reviewed and no additional complaints, except as documented, Denies confusion, Denies disequilibrium and Denies headache(s) Psychiatric Psychiatric: Denies confusion Past Medical History Past Medical History NEUROLOGIC: Positive Cerebrovascular Accident; Negative Neurological Disorders CARDIAC: Positive Myocardial Infarction and Hypercholesterolemia; Negative Cardiac Disorders or Congestive Heart Failure RESPIRATORY: Negative Chronic Obstructive Pulmonary Disease (COPD) GASTROINTESTINAL: Negative Gastrointestinal Disorders GENITOURINARY: Negative Genitourinary Disorders or Renal Disease MUSCULOSKELETAL: Negative Musculoskeletal Disorders ENDOCRINE: Negative Endocrine Disorders, Diabetes Mellitus Type 1 or Diabetes Mellitus Type 2 HEMATOLOGIC: Negative Blood Disorders OTHER HISTORY: Negative Autoimmune Disease or Clostridium Difficile Social History SMOKING STATUS: Current some day smoker SUBSTANCE USE: methamphetamine ED Exam General Limitations: Present no limitations General appearance: Present alert and in no apparent distress Head Head exam: Present atraumatic Eye Eye exam: Present normal appearance, PERRL and EOMI ENT ENT exam: Present normal exam, normal oropharynx and mucous membranes moist Neck Neck exam: Present normal inspection, full ROM and trachea midline Chest Chest inspection: Present normal inspection and symmetric chest wall rise Respiratory Respiratory exam: Present normal lung sounds bilaterally Cardiovascular Cardiovascular exam: Present regular rate, normal rhythm and normal heart sounds Abdominal Exam Abdominal exam: Present soft and normal bowel sounds Extremities Exam Extremities exam: Present normal inspection and full ROM Back Exam Back exam: Present normal inspection and full ROM Neurological Exam Neurological exam: Present alert, oriented X3 and CN II-XII intact Psychiatric Psychiatric exam: Present normal affect and normal mood Skin Skin exam: Present warm, dry, intact and normal color Course Quality Measures none Orders Category Date Time Status Naproxen [Naprosyn] Med 03/27/25 01:03 Discontinued 500 mg PO X1 ONE Vital Signs Vital signs: Vital Signs Temperature 98.5 F 03/27/25 00:38 Pulse Rate 101 H 03/27/25 00:38 Respiratory Rate 20 03/27/25 00:38 Blood Pressure 133/88 H 03/27/25 00:38 Pulse Oximetry (%) 98 03/27/25 00:38 Oxygen Delivery Method Room Air 03/27/25 00:38 O2 at 98% on RA and WNLs Back Pain / Injury MDM Narrative MDM Narrative:: 44M with history of drug use, homelessness, and chronic back pain presents to ED with chronic lower back and leg pain. Patient denies fevers/chills, leg swelling, paresthesia, bowel/bladder incontinence, SOB, dysuria, and hematuria. Patient would also like some food. Physical exam reveals male in no acute distress. Normal shuffling gait. Patient is afebrile, calm, and alert. Meds and camp counselor given. Patient data External records reviewed:: [facility] previous records Clinical information provided by:: patient Social determinants that could affect healthcare access:: housing Patient has the following chronic illnesses:: drug use, homelessness, and chronic back pain How is presenting disease/condition affected by chronic disease/condition?: caused by Evaluation data The following diagnostics were reviewed and interpreted by me:: other (specify) (none) Lab and/or radiology exams considered but not ordered:: not ordered Interpretation Summary: n/a Medications / Prescriptions Medications or Prescriptions considered but not ordered:: ordered Medication administrations:: Medication Administration History Discontinued Medications Naproxen (Naproxen 250 Mg Tablet) 500 mg PO X1 ONE Stop: 03/27/25 01:04 Last Admin: 03/27/25 01:11 Dose: 500 mg Documented By: KF above Consultations Consultation(s) initiated? (list below): No Diagnosis Differential diagnosis back pain/injury: lumbar radiculopathy, sciatica, strain of lumbar region, renal colic, pyelonephritis, thoracic back pain, AAA, discitis and other (chronic back pain) Most likely diagnosis given after review of the tests above:: chronic back pain Admission Indicated Admission indicated?: not indicated Admission Request Was there a request for admission?: No Disposition Plan Disposition Plan: Discharge Discharge Attestation Discharge Attestation: The patient and all family members were given an opportunity to ask questions and understood the discharge instructions. Discharge instructions specifically effects, indications for sooner follow up or return to the emergency department, and the expected course of current diagnosis. Patient condition: Stable Discharge Plan Plan Patient Disposition: HOME (Self Care) Discharge Disposition comment: Stable Prescriptions/Referrals Prescriptions/Med Rec: No Action naproxen 500 mg tablet 500 mg PO BID PRN (Reason: pain) Qty: 30 0RF cyclobenzaprine 5 mg tablet 5 mg PO TID PRN (Reason: muscle spasm) Qty: 30 0RF naproxen 500 mg tablet 500 mg PO BID PRN (Reason: pain) Qty: 30 0RF baclofen 10 mg tablet 10 mg PO BID PRN (Reason: muscle spasm) Qty: 30 0RF ibuprofen 800 mg tablet 800 mg PO TID PRN (Reason: pain) Qty: 30 0RF ibuprofen 800 mg tablet 800 mg PO TID PRN (Reason: pain) Qty: 30 0RF ibuprofen 600 mg tablet 600 mg PO Q6H PRN (Reason: pain) Qty: 30 0RF ibuprofen 600 mg tablet 600 mg PO Q8H PRN (Reason: pain) Qty: 20 0RF acetaminophen 500 mg capsule 500 mg PO Q6H PRN (Reason: pain) Qty: 30 0RF lidocaine [Lidoderm] 5 % adhesive patch,medicated 2 patch topical QDAY PRN (Reason: pain) Qty: 30 0RF Rx Instructions: leave on most painful area for up to 12 hrs cyclobenzaprine 5 mg tablet 5 mg PO TID PRN (Reason: muscle spasm) Qty: 15 0RF sulfamethoxazole-trimethoprim [Bactrim DS] 800-160 mg tablet 1 tab PO BID Qty: 14 0RF naproxen 500 mg tablet 500 mg PO BID PRN (Reason: pain) Qty: 30 0RF tamsulosin [Flomax] 0.4 mg capsule 0.4 mg PO QDAY Qty: 30 0RF ibuprofen 600 mg tablet 600 mg PO Q6H PRN (Reason: pain) Qty: 30 0RF methocarbamol 500 mg tablet 1,000 mg PO Q8H PRN (Reason: pain) Qty: 30 0RF naproxen [Naprosyn] 500 mg tablet 500 mg PO BID Qty: 14 0RF ibuprofen 600 mg tablet 600 mg PO Q6H PRN (Reason: fever or pain) Qty: 30 0RF cyclobenzaprine 5 mg tablet 5 mg PO TID PRN (Reason: muscle spasm) Qty: 14 0RF naproxen 500 mg tablet 500 mg PO BID PRN (Reason: pain) Qty: 30 0RF cyclobenzaprine 5 mg tablet 5 mg PO TID PRN (Reason: muscle spasm) Qty: 30 0RF acetaminophen 500 mg capsule 500 mg PO Q6H PRN (Reason: pain) Qty: 30 0RF Referrals: Lavell (PCP),MD Cody [Primary Care Provider] - In 1 week Problem List Clinical Impression: Chronic back pain Patient/Caregiver Discharge Instructions Additional Instructions: Please follow-up with PCP within 24-48 hours and return immediately if symptoms worsen. If problem persists, recommend outpatient PT and/or MRI follow-up. In the meantime, rest, use ice/heat, and/or compression. Print Language: Serbian Stand Alone Forms: Patient Portal Info Letter PA/REGIONAL ADMINISTRATIVE ASSISTANT Supervising Physician FAINA/REGIONAL ADMINISTRATIVE ASSISTANT Supervising Physician: Dr. Pedraza
== END 2025-03-27 01:16 | disposition home or self-care (01) ==
PROVIDERS: Emergency Provider Emergency Medicine; PCP Family Medicine
DX: G89.29 Other chronic pain (principal); M54.9 Dorsalgia, unspecified
CPT/HCPCS: 99282; A9270

== ENCOUNTER 2025-03-27 08:07 | Emergency (ER) | payer MEDICAID, SELFPAY ==
[2025-03-27 08:12] VITALS: BP 132/88; PULSE 88; RESP 16; TEMP 36.9; O2SAT 100; BMI 27.1
[2025-03-27 08:31] VITALS: PULSE 84; O2SAT 97
--- NOTE | 2025-03-27 08:43 | EDNOTE_ITS ---
ED Extremity Problem RME/HPI General Chief complaint: Extremity Problem,Nontraumatic Stated complaint: BILAT LEG PAIN; DC'D ER 0530 THIS AM FOR SAME Time Seen by Provider: 03/27/25 08:40 Source: patient Arrival date/time: 03/27/25 08:07 44-year-old male with a history of chronic back pain, CVA presents to the emergency room with a chief complaint of bilateral leg pain patient states he was discharged today at 530 and states he had another episode of breakthrough pain. Patient denies fevers/chills, leg swelling, paresthesia, bowel/bladder incontinence. Mode of arrival: ambulatory Limitations: no limitations Related Data Previous Rx's ?Medication ?Instructions ?Recorded sulfamethoxazole 800 1 tab PO BID #14 tabs mg-trimethoprim 160 mg tablet (Bactrim DS) cyclobenzaprine 5 mg tablet 5 mg PO TID PRN muscle spa sm #30 07/23/23 tabs naproxen 500 mg tablet 500 mg PO BID PRN pain #30 t abs 07/23/23 naproxen 500 mg tablet 500 mg PO BID PRN pain #30 t abs 08/08/23 tamsulosin 0.4 mg capsule (Flomax) 0.4 mg PO QDAY #30 caps 08/08/23 baclofen 10 mg tablet 10 mg PO BID PRN muscle spas m #30 08/14/23 tabs naproxen 500 mg tablet 500 mg PO BID PRN pain #30 t abs 08/14/23 ibuprofen 800 mg tablet 800 mg PO TID PRN pain #30 t abs 08/28/23 ibuprofen 600 mg tablet 600 mg PO Q6H PRN pain #30 t abs 01/27/24 methocarbamol 500 mg tablet 1,000 mg (2 x 500 mg) PO Q 8H PRN 01/27/24 pain #30 tabs naproxen 500 mg tablet (Naprosyn) 500 mg PO BID #14 ta bs 03/15/24 ibuprofen 800 mg tablet 800 mg PO TID PRN pain #30 t abs 04/02/24 cyclobenzaprine 5 mg tablet 5 mg PO TID PRN muscle spa sm #14 04/07/24 tabs ibuprofen 600 mg tablet 600 mg PO Q6H PRN fever or p ain 04/07/24 #30 tabs ibuprofen 600 mg tablet 600 mg PO Q6H PRN pain #30 t abs 04/07/24 cyclobenzaprine 5 mg tablet 5 mg PO TID PRN muscle spa sm #30 04/11/24 tabs naproxen 500 mg tablet 500 mg PO BID PRN pain #30 t abs 04/11/24 ibuprofen 600 mg tablet 600 mg PO Q8H PRN pain #20 t abs 11/03/24 acetaminophen 500 mg capsule 500 mg PO Q6H PRN pain #3 0 caps 12/03/24 acetaminophen 500 mg capsule 500 mg PO Q6H PRN pain #3 0 caps 12/15/24 cyclobenzaprine 5 mg tablet 5 mg PO TID PRN muscle spa sm #15 12/20/24 tabs lidocaine 5 % topical patch 2 patch topical QDAY PRN p ain #30 12/20/24 (Lidoderm) ea Allergies Allergy/AdvReac Type Severity Reaction Status Date / Time No Known Allergies Allergy Verified 03/27/25 08:34 Review of Systems Review of Systems Systems Reviewed: All systems reviewed, normal except as documented Constitutional Constitutional: Reports system reviewed and no additional complaints, except as documented, Denies fatigue, Denies fever(s), Denies headache(s) and Denies weakness Eyes Eyes: Reports system reviewed and no additional complaints, except as documented, Denies blurry vision and Denies change in vision ENT Ears, Nose, Mouth, and Throat: Reports system reviewed and no additional complaints, except as documented, Denies otalgia, Denies headache(s), Denies nasal congestion, Denies throat swelling and Denies vertigo Cardiovascular Cardiovascular: Reports system reviewed and no additional complaints, except as documented, Denies chest pain, Denies dyspnea and Denies dyspnea on exertion Respiratory Respiratory: Reports system reviewed and no additional complaints, except as documented, Denies chest congestion, Denies cough, Denies dyspnea, Denies dyspnea on exertion and Denies wheezing Gastrointestinal Gastrointestinal: Reports system reviewed and no additional complaints, except as documented, Denies abdominal pain, Denies cramping, Denies nausea and Denies vomiting Genitourinary Genitourinary: Reports system reviewed and no additional complaints, except as documented, Denies dysuria and Denies hematuria Musculoskeletal Musculoskeletal: Reports system reviewed and no additional complaints, except as documented, Reports arthralgias and Reports back pain Integumentary/Breasts Skin/Breast: Reports system reviewed and no additional complaints, except as documented and Denies wounds Neurologic Neurologic: Reports system reviewed and no additional complaints, except as documented, Denies confusion, Denies headache(s), Denies lack of coordination, Denies vertigo and Denies weakness Psychiatric Psychiatric: Reports system reviewed and no additional complaints, except as documented, Denies anxiety, Denies confusion, Denies depression, Denies paranoia, Denies suicidal ideation and Denies tactile hallucinations Endocrine Endocrine: Reports system reviewed and no additional complaints, except as documented and Denies fatigue Hematologic/Lymphatic Hematologic/Lymphatic: Reports system reviewed and no additional complaints, except as documented and Denies lymphadenopathy Allergic/Immunologic Allergic/Immunologic: Reports system reviewed and no additional complaints, except as documented, Denies throat swelling, Denies urticaria and Denies wheezing ED Exam General Limitations: Present no limitations General appearance: Present alert and in no apparent distress Head Head exam: Present atraumatic Eye Eye exam: Present normal appearance, PERRL and EOMI ENT ENT exam: Present normal exam, normal oropharynx and mucous membranes moist Neck Neck exam: Present normal inspection, full ROM and trachea midline Chest Chest inspection: Present normal inspection and symmetric chest wall rise Respiratory Respiratory exam: Present normal lung sounds bilaterally Cardiovascular Cardiovascular exam: Present regular rate, normal rhythm and normal heart sounds Abdominal Exam Abdominal exam: Present soft and normal bowel sounds Extremities Exam Extremities exam: Present normal inspection and full ROM Back Exam Back exam: Present normal inspection, full ROM and tenderness Neurological Exam Neurological exam: Present alert, oriented X3 and CN II-XII intact Expanded Neurological Exam Spinal cord function: Absent saddle anesthesia Psychiatric Psychiatric exam: Present normal affect and normal mood Skin Skin exam: Present warm, dry, intact and normal color Course Quality Measures none Orders Category Date Time Status CBC Stat Lab 03/27/25 08:49 Ordered CK [Creatine Kinase] Stat Lab 03/27/25 08:49 Ordered CMP [Comprehensive Metabolic Panel] Stat Lab 03/27/25 08:49 Ordered Ketorolac Inj [Toradol Inj] Med 03/27/25 08:42 Discontinued 30 mg IM X1 ONE Vital Signs Vital signs: Vital Signs Temperature 98.4 F 03/27/25 08:12 Pulse Rate 88 03/27/25 08:12 Respiratory Rate 16 03/27/25 08:12 Blood Pressure 132/88 H 03/27/25 08:12 Pulse Oximetry (%) 100 03/27/25 08:12 Oxygen Delivery Method Room Air 03/27/25 08:12 O2 saturation 100% within normal limits Extremity Problem MDM Narrative MDM Narrative:: 44-year-old male with a history of chronic back pain, CVA presents to the emergency room with a chief complaint of bilateral leg pain patient states he was discharged today at 530 and states he had another episode of breakthrough pain. Patient denies fevers/chills, leg swelling, paresthesia, bowel/bladder incontinence. Patient is hemodynamically stable and in no apparent distress. Patient is able to ambulate. Patient states he was seen here this morning was given pain medications felt better got discharged and he says about 30 minutes later his pain began again and he came back as he wants another shot for pain medication. Patient states he is currently homeless but states he will follow-up with his primary care provider for referral to a biomedical specialist if his signs and symptoms continue. Patient states he had an MRI that was normal. Blood work was ordered to rule out any electrolyte imbalance or rhabdomyolysis, but the patient eloped after receiving pain medication and prior to final disposition. Patient data External records reviewed:: [facility] previous records Clinical information provided by:: patient Social determinants that could affect healthcare access:: none Patient has the following chronic illnesses:: No chronic illness How is presenting disease/condition affected by chronic disease/condition?: no chronic disease Evaluation data The following diagnostics were reviewed and interpreted by me:: lab results and radiology exam(s) Lab and/or radiology exams considered but not ordered:: Labs and radiology exams considered and ordered Interpretation Summary: N/A Medications / Prescriptions Medications or Prescriptions considered but not ordered:: Medication given Medication administrations:: Medication Administration History Discontinued Medications Ketorolac Tromethamine (Ketorolac Inj 60 Mg/2 Ml Vial) 30 mg IM X1 ONE Stop: 03/27/25 08:43 Last Admin: 03/27/25 08:54 Dose: 30 mg Documented By: CG Medication given Consultations Consultation(s) initiated? (list below): No Diagnosis Extremity Problem Differential Diagnosis: other (Chronic back pain/breakthrough pain) Most likely diagnosis given after review of the tests above:: Chronic back pain Admission Indicated Admission indicated?: not indicated Admission Request Was there a request for admission?: No Disposition Plan Disposition Plan: Discharge Discharge Attestation Discharge Attestation: The patient and all family members were given an opportunity to ask questions and understood the discharge instructions. Discharge instructions specifically effects, indications for sooner follow up or return to the emergency department, and the expected course of current diagnosis. Patient condition: Stable Discharge Plan Plan Patient Disposition: Elopement Discharge Disposition comment: Stable Prescriptions/Referrals Prescriptions/Med Rec: No Action naproxen 500 mg tablet 500 mg PO BID PRN (Reason: pain) Qty: 30 0RF cyclobenzaprine 5 mg tablet 5 mg PO TID PRN (Reason: muscle spasm) Qty: 30 0RF naproxen 500 mg tablet 500 mg PO BID PRN (Reason: pain) Qty: 30 0RF baclofen 10 mg tablet 10 mg PO BID PRN (Reason: muscle spasm) Qty: 30 0RF ibuprofen 800 mg tablet 800 mg PO TID PRN (Reason: pain) Qty: 30 0RF ibuprofen 800 mg tablet 800 mg PO TID PRN (Reason: pain) Qty: 30 0RF ibuprofen 600 mg tablet 600 mg PO Q6H PRN (Reason: pain) Qty: 30 0RF ibuprofen 600 mg tablet 600 mg PO Q8H PRN (Reason: pain) Qty: 20 0RF acetaminophen 500 mg capsule 500 mg PO Q6H PRN (Reason: pain) Qty: 30 0RF lidocaine [Lidoderm] 5 % adhesive patch,medicated 2 patch topical QDAY PRN (Reason: pain) Qty: 30 0RF Rx Instructions: leave on most painful area for up to 12 hrs cyclobenzaprine 5 mg tablet 5 mg PO TID PRN (Reason: muscle spasm) Qty: 15 0RF sulfamethoxazole-trimethoprim [Bactrim DS] 800-160 mg tablet 1 tab PO BID Qty: 14 0RF naproxen 500 mg tablet 500 mg PO BID PRN (Reason: pain) Qty: 30 0RF tamsulosin [Flomax] 0.4 mg capsule 0.4 mg PO QDAY Qty: 30 0RF ibuprofen 600 mg tablet 600 mg PO Q6H PRN (Reason: pain) Qty: 30 0RF methocarbamol 500 mg tablet 1,000 mg PO Q8H PRN (Reason: pain) Qty: 30 0RF naproxen [Naprosyn] 500 mg tablet 500 mg PO BID Qty: 14 0RF ibuprofen 600 mg tablet 600 mg PO Q6H PRN (Reason: fever or pain) Qty: 30 0RF cyclobenzaprine 5 mg tablet 5 mg PO TID PRN (Reason: muscle spasm) Qty: 14 0RF naproxen 500 mg tablet 500 mg PO BID PRN (Reason: pain) Qty: 30 0RF cyclobenzaprine 5 mg tablet 5 mg PO TID PRN (Reason: muscle spasm) Qty: 30 0RF acetaminophen 500 mg capsule 500 mg PO Q6H PRN (Reason: pain) Qty: 30 0RF Problem List Clinical Impression: Chronic back pain Patient/Caregiver Discharge Instructions Additional Instructions: Please follow-up with your primary care provider in the next 24 to 48 hours For any evidence of worsening signs or symptoms return to emergency room immediately Print Language: Czech
[2025-03-27] MEDS: KETOROLAC INJ 60 MG/2 ML VIAL 30 MG IM (08:54)
== END 2025-03-27 18:21 | disposition left against medical advice (07) ==
PROVIDERS: Emergency Provider Family Medicine
DX: M54.9 Dorsalgia, unspecified (principal); M79.605 Pain in left leg; M79.604 Pain in right leg; G89.29 Other chronic pain; Z86.73 Personal history of transient ischemic attack (TIA), and cerebral infarction without residual deficits; Z59.00 Homelessness unspecified; Z53.29 Procedure and treatment not carried out because of patient's decision for other reasons
CPT/HCPCS: 80053; 82550; 85025; 96372; 99281; J1885

== ENCOUNTER 2025-03-27 19:01 | Emergency (ER) | payer MEDICAID, SELFPAY ==
[2025-03-27 19:16] VITALS: BP 143/95; PULSE 100; RESP 18; TEMP 37.3; O2SAT 99; BMI 27.3
--- NOTE | 2025-03-27 19:23 | EDNOTE_ITS ---
ED Extremity Problem RME/HPI General Chief complaint: Extremity Problem,Nontraumatic Stated complaint: BILATERAL LEG PAIN; ELOPED BEFORE TRIAGE THIS AM Time Seen by Provider: 03/27/25 19:17 Arrival date/time: 03/27/25 19:01 44-year-old homeless male with history of methamphetamine abuse presents the emergency department today for complaints of bilateral leg pain patient reports that this is a chronic issue and he is complaining of pain at this time requesting Toradol shot and would like some food. Limitations: no limitations Related Data Previous Rx's ?Medication ?Instructions ?Recorded sulfamethoxazole 800 1 tab PO BID #14 tabs mg-trimethoprim 160 mg tablet (Bactrim DS) cyclobenzaprine 5 mg tablet 5 mg PO TID PRN muscle spa sm #30 07/23/23 tabs naproxen 500 mg tablet 500 mg PO BID PRN pain #30 t abs 07/23/23 naproxen 500 mg tablet 500 mg PO BID PRN pain #30 t abs 08/08/23 tamsulosin 0.4 mg capsule (Flomax) 0.4 mg PO QDAY #30 caps 08/08/23 baclofen 10 mg tablet 10 mg PO BID PRN muscle spas m #30 08/14/23 tabs naproxen 500 mg tablet 500 mg PO BID PRN pain #30 t abs 08/14/23 ibuprofen 800 mg tablet 800 mg PO TID PRN pain #30 t abs 08/28/23 ibuprofen 600 mg tablet 600 mg PO Q6H PRN pain #30 t abs 01/27/24 methocarbamol 500 mg tablet 1,000 mg (2 x 500 mg) PO Q 8H PRN 01/27/24 pain #30 tabs naproxen 500 mg tablet (Naprosyn) 500 mg PO BID #14 ta bs 03/15/24 ibuprofen 800 mg tablet 800 mg PO TID PRN pain #30 t abs 04/02/24 cyclobenzaprine 5 mg tablet 5 mg PO TID PRN muscle spa sm #14 04/07/24 tabs ibuprofen 600 mg tablet 600 mg PO Q6H PRN fever or p ain 04/07/24 #30 tabs ibuprofen 600 mg tablet 600 mg PO Q6H PRN pain #30 t abs 04/07/24 cyclobenzaprine 5 mg tablet 5 mg PO TID PRN muscle spa sm #30 04/11/24 tabs naproxen 500 mg tablet 500 mg PO BID PRN pain #30 t abs 04/11/24 ibuprofen 600 mg tablet 600 mg PO Q8H PRN pain #20 t abs 11/03/24 acetaminophen 500 mg capsule 500 mg PO Q6H PRN pain #3 0 caps 12/03/24 acetaminophen 500 mg capsule 500 mg PO Q6H PRN pain #3 0 caps 12/15/24 cyclobenzaprine 5 mg tablet 5 mg PO TID PRN muscle spa sm #15 12/20/24 tabs lidocaine 5 % topical patch 2 patch topical QDAY PRN p ain #30 12/20/24 (Lidoderm) ea Allergies Allergy/AdvReac Type Severity Reaction Status Date / Time No Known Allergies Allergy Verified 03/27/25 19:05 Review of Systems Review of Systems Systems Reviewed: All systems reviewed, normal except as documented Constitutional Constitutional: Reports system reviewed and no additional complaints, except as documented, Denies fever(s) and Denies headache(s) Eyes Eyes: Reports system reviewed and no additional complaints, except as documented and Denies blurry vision ENT Ears, Nose, Mouth, and Throat: Reports system reviewed and no additional complaints, except as documented, Denies headache(s), Denies nasal congestion and Denies nasal discharge Cardiovascular Cardiovascular: Reports system reviewed and no additional complaints, except as documented, Denies chest pain and Denies dyspnea Respiratory Respiratory: Reports system reviewed and no additional complaints, except as documented, Denies chest congestion, Denies cough and Denies dyspnea Gastrointestinal Gastrointestinal: Reports system reviewed and no additional complaints, except as documented and Denies abdominal pain Musculoskeletal Musculoskeletal: Reports system reviewed and no additional complaints, except as documented, Denies deformity, Denies joint swelling, Denies numbness, Reports stiffness and Denies tingling Integumentary/Breasts Skin/Breast: Reports system reviewed and no additional complaints, except as documented and Denies rash Neurologic Neurologic: Reports system reviewed and no additional complaints, except as documented, Reports as per HPI, Denies headache(s), Denies numbness and Denies tingling Past Medical History Past Medical History NEUROLOGIC: Positive Cerebrovascular Accident; Negative Neurological Disorders CARDIAC: Positive Myocardial Infarction and Hypercholesterolemia; Negative Cardiac Disorders or Congestive Heart Failure RESPIRATORY: Negative Chronic Obstructive Pulmonary Disease (COPD) GASTROINTESTINAL: Negative Gastrointestinal Disorders GENITOURINARY: Negative Genitourinary Disorders or Renal Disease MUSCULOSKELETAL: Negative Musculoskeletal Disorders ENDOCRINE: Negative Endocrine Disorders, Diabetes Mellitus Type 1 or Diabetes Mellitus Type 2 HEMATOLOGIC: Negative Blood Disorders OTHER HISTORY: Negative Autoimmune Disease or Clostridium Difficile Social History SMOKING STATUS: Heavy (> 1 pack/day) SUBSTANCE USE: methamphetamine ED Exam General Limitations: Present no limitations General appearance: Present alert and in no apparent distress Head Head exam: Present atraumatic, normocephalic and normal inspection Eye Eye exam: Present normal appearance, PERRL and EOMI; Absent conjunctival injection ENT ENT exam: Present normal exam, normal oropharynx and mucous membranes moist Neck Neck exam: Present normal inspection, full ROM and trachea midline Chest Chest inspection: Present normal inspection and symmetric chest wall rise Respiratory Respiratory exam: Present normal lung sounds bilaterally Cardiovascular Cardiovascular exam: Present regular rate, normal rhythm and normal heart sounds Abdominal Exam Abdominal exam: Present soft and normal bowel sounds Extremities Exam Extremities exam: Present normal inspection and full ROM Back Exam Back exam: Present normal inspection and full ROM Neurological Exam Neurological exam: Present alert, oriented X3 and CN II-XII intact Psychiatric Psychiatric exam: Present normal affect and normal mood Skin Skin exam: Present warm, dry, intact and normal color Course Quality Measures none Orders Category Date Time Status Ketorolac Inj [Toradol Inj] Med 03/27/25 19:18 Discontinued 30 mg IM X1 ONE Vital Signs Vital signs: Vital Signs Temperature 99.2 F 03/27/25 19:16 Pulse Rate 100 03/27/25 19:16 Respiratory Rate 18 03/27/25 19:16 Blood Pressure 143/95 H 03/27/25 19:16 Pulse Oximetry (%) 99 03/27/25 19:16 Oxygen Delivery Method Room Air 03/27/25 19:16 O2 saturation 99% room air within normal limits Extremity Problem MDM Narrative MDM Narrative:: 44-year-old homeless male with history of methamphetamine abuse presents the emergency department today for complaints of bilateral leg pain patient reports that this is a chronic issue and he is complaining of pain at this time requesting Toradol shot and would like some food. On exam patient well-appearing patient does not appear ill or toxic in no acute distress Patient given Toradol patient given food Patient discharged home in no distress to follow-up with primary care doctor in the next 24 to 48 hours and for any worsening symptoms to return to the ER immediately Patient data External records reviewed:: [facility] previous records Clinical information provided by:: patient Social determinants that could affect healthcare access:: substance use Patient has the following chronic illnesses:: See history How is presenting disease/condition affected by chronic disease/condition?: caused by Evaluation data The following diagnostics were reviewed and interpreted by me:: other (specify) Lab and/or radiology exams considered but not ordered:: Consider not indicate Interpretation Summary: N/A Medications / Prescriptions Medications or Prescriptions considered but not ordered:: Given Medication administrations:: Medication Administration History Discontinued Medications Ketorolac Tromethamine (Ketorolac Inj 30 Mg/Ml Vial) 30 mg IM X1 ONE Stop: 03/27/25 19:19 Given Consultations Consultation(s) initiated? (list below): No Diagnosis Extremity Problem Differential Diagnosis: other (Leg pain bilateral) Most likely diagnosis given after review of the tests above:: Left and bilateral, homeless, methamphetamine use Admission Indicated Admission indicated?: not indicated Admission Request Was there a request for admission?: No Disposition Plan Disposition Plan: Discharge Discharge Attestation Discharge Attestation: The patient and all family members were given an opportunity to ask questions and understood the discharge instructions. Discharge instructions specifically effects, indications for sooner follow up or return to the emergency department, and the expected course of current diagnosis. Patient condition: Stable Discharge Plan Plan Patient Disposition: HOME (Self Care) Discharge Disposition comment: Stable Prescriptions/Referrals Prescriptions/Med Rec: No Action naproxen 500 mg tablet 500 mg PO BID PRN (Reason: pain) Qty: 30 0RF cyclobenzaprine 5 mg tablet 5 mg PO TID PRN (Reason: muscle spasm) Qty: 30 0RF naproxen 500 mg tablet 500 mg PO BID PRN (Reason: pain) Qty: 30 0RF baclofen 10 mg tablet 10 mg PO BID PRN (Reason: muscle spasm) Qty: 30 0RF ibuprofen 800 mg tablet 800 mg PO TID PRN (Reason: pain) Qty: 30 0RF ibuprofen 800 mg tablet 800 mg PO TID PRN (Reason: pain) Qty: 30 0RF ibuprofen 600 mg tablet 600 mg PO Q6H PRN (Reason: pain) Qty: 30 0RF ibuprofen 600 mg tablet 600 mg PO Q8H PRN (Reason: pain) Qty: 20 0RF acetaminophen 500 mg capsule 500 mg PO Q6H PRN (Reason: pain) Qty: 30 0RF lidocaine [Lidoderm] 5 % adhesive patch,medicated 2 patch topical QDAY PRN (Reason: pain) Qty: 30 0RF Rx Instructions: leave on most painful area for up to 12 hrs cyclobenzaprine 5 mg tablet 5 mg PO TID PRN (Reason: muscle spasm) Qty: 15 0RF sulfamethoxazole-trimethoprim [Bactrim DS] 800-160 mg tablet 1 tab PO BID Qty: 14 0RF naproxen 500 mg tablet 500 mg PO BID PRN (Reason: pain) Qty: 30 0RF tamsulosin [Flomax] 0.4 mg capsule 0.4 mg PO QDAY Qty: 30 0RF ibuprofen 600 mg tablet 600 mg PO Q6H PRN (Reason: pain) Qty: 30 0RF methocarbamol 500 mg tablet 1,000 mg PO Q8H PRN (Reason: pain) Qty: 30 0RF naproxen [Naprosyn] 500 mg tablet 500 mg PO BID Qty: 14 0RF ibuprofen 600 mg tablet 600 mg PO Q6H PRN (Reason: fever or pain) Qty: 30 0RF cyclobenzaprine 5 mg tablet 5 mg PO TID PRN (Reason: muscle spasm) Qty: 14 0RF naproxen 500 mg tablet 500 mg PO BID PRN (Reason: pain) Qty: 30 0RF cyclobenzaprine 5 mg tablet 5 mg PO TID PRN (Reason: muscle spasm) Qty: 30 0RF acetaminophen 500 mg capsule 500 mg PO Q6H PRN (Reason: pain) Qty: 30 0RF Problem List Clinical Impression: Leg pain Patient/Caregiver Discharge Instructions Education Materials: ED Myalgias Additional Instructions: Please follow up with your primary care doctor in the next 24-48hrs for any worsening symptoms return here immediately Print Language: Azeri Stand Alone Forms: Tami Award Info., Patient Portal Info Letter PA/SPIRITUAL ADVISOR Supervising Physician PA/SPIRITUAL ADVISOR Supervising Physician: Dr. gordon
[2025-03-27] MEDS: KETOROLAC INJ 30 MG/ML VIAL IM (19:32)
== END 2025-03-27 19:35 | disposition home or self-care (01) ==
LOC: SERX 19:45
PROVIDERS: Emergency Provider Emergency Medicine
DX: M79.605 Pain in left leg (principal); M79.604 Pain in right leg; Z59.00 Homelessness unspecified
CPT/HCPCS: 96372; 99283; J1885

== ENCOUNTER 2025-03-27 23:01 | Emergency (ER) | payer MEDICAID, SELFPAY ==
[2025-03-27 23:19] VITALS: PULSE 92; RESP 20; BMI 15.6
[2025-03-27 23:51] VITALS: BP 147/89; PULSE 99; RESP 18; TEMP 36.9; O2SAT 100
[2025-03-28] MEDS: KETOROLAC INJ 60 MG/2 ML VIAL 30 MG IM (00:48)
--- NOTE | 2025-03-28 01:01 | EDNOTE_ITS ---
Lower Extremity Injury RME/HPI General Chief Complaint: Extremity Injury, Lower Stated Complaint: LEGS THROBBING Time Seen by Provider: 03/28/25 00:20 Source: patient Arrival date/time: 03/27/25 23:01 44-year-old male returns requesting pain medication for pain to the back of his legs. Mode of arrival: ambulatory Limitations: no limitations RME / HPI Onset (ago): unknown Injury: Bilateral: thigh Place: home Severity: moderate Related Data Previous Rx's ?Medication ?Instructions ?Recorded sulfamethoxazole 800 1 tab PO BID #14 tabs mg-trimethoprim 160 mg tablet (Bactrim DS) cyclobenzaprine 5 mg tablet 5 mg PO TID PRN muscle spa sm #30 07/23/23 tabs naproxen 500 mg tablet 500 mg PO BID PRN pain #30 t abs 07/23/23 naproxen 500 mg tablet 500 mg PO BID PRN pain #30 t abs 08/08/23 tamsulosin 0.4 mg capsule (Flomax) 0.4 mg PO QDAY #30 caps 08/08/23 baclofen 10 mg tablet 10 mg PO BID PRN muscle spas m #30 08/14/23 tabs naproxen 500 mg tablet 500 mg PO BID PRN pain #30 t abs 08/14/23 ibuprofen 800 mg tablet 800 mg PO TID PRN pain #30 t abs 08/28/23 ibuprofen 600 mg tablet 600 mg PO Q6H PRN pain #30 t abs 01/27/24 methocarbamol 500 mg tablet 1,000 mg (2 x 500 mg) PO Q 8H PRN 01/27/24 pain #30 tabs naproxen 500 mg tablet (Naprosyn) 500 mg PO BID #14 ta bs 03/15/24 ibuprofen 800 mg tablet 800 mg PO TID PRN pain #30 t abs 04/02/24 cyclobenzaprine 5 mg tablet 5 mg PO TID PRN muscle spa sm #14 04/07/24 tabs ibuprofen 600 mg tablet 600 mg PO Q6H PRN fever or p ain 04/07/24 #30 tabs ibuprofen 600 mg tablet 600 mg PO Q6H PRN pain #30 t abs 04/07/24 cyclobenzaprine 5 mg tablet 5 mg PO TID PRN muscle spa sm #30 04/11/24 tabs naproxen 500 mg tablet 500 mg PO BID PRN pain #30 t abs 04/11/24 ibuprofen 600 mg tablet 600 mg PO Q8H PRN pain #20 t abs 11/03/24 acetaminophen 500 mg capsule 500 mg PO Q6H PRN pain #3 0 caps 12/03/24 acetaminophen 500 mg capsule 500 mg PO Q6H PRN pain #3 0 caps 12/15/24 cyclobenzaprine 5 mg tablet 5 mg PO TID PRN muscle spa sm #15 12/20/24 tabs lidocaine 5 % topical patch 2 patch topical QDAY PRN p ain #30 12/20/24 (Lidoderm) ea Allergies Allergy/AdvReac Type Severity Reaction Status Date / Time No Known Allergies Allergy Verified 03/27/25 23:19 Review of Systems Constitutional Constitutional: Reports system reviewed and no additional complaints, except as documented Eyes Eyes: Reports system reviewed and no additional complaints, except as documented, Denies dry eyes, Denies exophthalmos and Reports floaters Cardiovascular Cardiovascular: Denies chest pain with activity and Denies claudication Musculoskeletal Musculoskeletal: Reports system reviewed and no additional complaints, except as documented and Reports as per HPI Integumentary/Breasts Skin/Breast: Reports system reviewed and no additional complaints, except as documented and Reports as per HPI Neurologic Neurologic: Reports system reviewed and no additional complaints, except as documented and Reports as per HPI Psychiatric Psychiatric: Reports system reviewed and no additional complaints, except as documented and Reports as per HPI Past Medical History Past Medical History Comments PMH COMMENT: Patient tells me he suffered a stroke which causes him his low back pain and he was left and right posterior thigh pain. ED Exam General Limitations: Present no limitations General appearance: Present alert and in no apparent distress Head Head exam: Present atraumatic Eye Eye exam: Present normal appearance, PERRL and EOMI ENT ENT exam: Present normal exam, normal oropharynx and mucous membranes moist Neck Neck exam: Present normal inspection, full ROM and trachea midline Chest Chest inspection: Present normal inspection and symmetric chest wall rise Respiratory Respiratory exam: Present normal lung sounds bilaterally Cardiovascular Cardiovascular exam: Present regular rate, normal rhythm and normal heart sounds Abdominal Exam Abdominal exam: Present soft and normal bowel sounds Extremities Exam Extremities exam: Present normal inspection and full ROM Back Exam Back exam: Present normal inspection and full ROM Neurological Exam Neurological exam: Present alert, oriented X3 and CN II-XII intact Psychiatric Psychiatric exam: Present normal affect and normal mood Skin Skin exam: Present warm, dry, intact and normal color Course Course Course Narrative: Patient will have Toradol 30 mg IM Quality Measures none Orders Category Date Time Status Ketorolac Inj [Toradol Inj] Med 03/28/25 00:31 Discontinued 30 mg IM X1 ONE Given Vital Signs Vital signs: Vital Signs Temperature 98.5 F 03/27/25 23:51 Pulse Rate 99 03/27/25 23:51 Respiratory Rate 18 03/27/25 23:51 Blood Pressure 147/89 H 03/27/25 23:51 Pulse Oximetry (%) 100 03/27/25 23:51 Oxygen Delivery Method Room Air 03/27/25 23:51 O2 sats are room air 100% Extremity Injury, Lower MDM Narrative MDM Narrative:: Patient will have his Toradol 30 mg IM. Patient has to follow-up with primary care physician in 1 week. Patient data External records reviewed:: Other (specify) Clinical information provided by:: patient Social determinants that could affect healthcare access:: none Patient has the following chronic illnesses:: N/A How is presenting disease/condition affected by chronic disease/condition?: no chronic disease Evaluation data The following diagnostics were reviewed and interpreted by me:: other (specify) Lab and/or radiology exams considered but not ordered:: N/A Interpretation Summary: Leg pain Medications / Prescriptions Medications or Prescriptions considered but not ordered:: N/A Medication administrations:: Medication Administration History Discontinued Medications Ketorolac Tromethamine (Ketorolac Inj 60 Mg/2 Ml Vial) 30 mg IM X1 ONE Stop: 03/28/25 00:32 Last Admin: 03/28/25 00:48 Dose: 30 mg Documented By: Given Consultations Consultation(s) initiated? (list below): No Diagnosis Extremity Injury, Lower Differential Diagnosis: fracture of femur and fracture of hip Most likely diagnosis given after review of the tests above:: N/A Admission Indicated Admission indicated?: not indicated Admission Request Was there a request for admission?: No Disposition Plan Disposition Plan: Discharge Discharge Attestation Discharge Attestation: The patient and all family members were given an opportunity to ask questions and understood the discharge instructions. Discharge instructions specifically effects, indications for sooner follow up or return to the emergency department, and the expected course of current diagnosis. Patient condition: Stable Discharge Plan Plan Patient Disposition: HOME (Self Care) Prescriptions/Referrals Prescriptions/Med Rec: No Action naproxen 500 mg tablet 500 mg PO BID PRN (Reason: pain) Qty: 30 0RF cyclobenzaprine 5 mg tablet 5 mg PO TID PRN (Reason: muscle spasm) Qty: 30 0RF naproxen 500 mg tablet 500 mg PO BID PRN (Reason: pain) Qty: 30 0RF baclofen 10 mg tablet 10 mg PO BID PRN (Reason: muscle spasm) Qty: 30 0RF ibuprofen 800 mg tablet 800 mg PO TID PRN (Reason: pain) Qty: 30 0RF ibuprofen 800 mg tablet 800 mg PO TID PRN (Reason: pain) Qty: 30 0RF ibuprofen 600 mg tablet 600 mg PO Q6H PRN (Reason: pain) Qty: 30 0RF ibuprofen 600 mg tablet 600 mg PO Q8H PRN (Reason: pain) Qty: 20 0RF acetaminophen 500 mg capsule 500 mg PO Q6H PRN (Reason: pain) Qty: 30 0RF lidocaine [Lidoderm] 5 % adhesive patch,medicated 2 patch topical QDAY PRN (Reason: pain) Qty: 30 0RF Rx Instructions: leave on most painful area for up to 12 hrs cyclobenzaprine 5 mg tablet 5 mg PO TID PRN (Reason: muscle spasm) Qty: 15 0RF sulfamethoxazole-trimethoprim [Bactrim DS] 800-160 mg tablet 1 tab PO BID Qty: 14 0RF naproxen 500 mg tablet 500 mg PO BID PRN (Reason: pain) Qty: 30 0RF tamsulosin [Flomax] 0.4 mg capsule 0.4 mg PO QDAY Qty: 30 0RF ibuprofen 600 mg tablet 600 mg PO Q6H PRN (Reason: pain) Qty: 30 0RF methocarbamol 500 mg tablet 1,000 mg PO Q8H PRN (Reason: pain) Qty: 30 0RF naproxen [Naprosyn] 500 mg tablet 500 mg PO BID Qty: 14 0RF ibuprofen 600 mg tablet 600 mg PO Q6H PRN (Reason: fever or pain) Qty: 30 0RF cyclobenzaprine 5 mg tablet 5 mg PO TID PRN (Reason: muscle spasm) Qty: 14 0RF naproxen 500 mg tablet 500 mg PO BID PRN (Reason: pain) Qty: 30 0RF cyclobenzaprine 5 mg tablet 5 mg PO TID PRN (Reason: muscle spasm) Qty: 30 0RF acetaminophen 500 mg capsule 500 mg PO Q6H PRN (Reason: pain) Qty: 30 0RF Referrals: Lavell (PCP),MD Cody [Primary Care Provider] - In 1 week Problem List Clinical Impression: Leg pain Patient/Caregiver Discharge Instructions Education Materials: ED Myalgias Print Language: Belarusian PA/COURT WORKER Supervising Physician PA/COURT WORKER Supervising Physician: evan
== END 2025-03-28 03:00 | disposition home or self-care (01) ==
PROVIDERS: Emergency Provider Emergency Medicine; PCP Family Medicine
DX: M79.651 Pain in right thigh (principal); M79.652 Pain in left thigh; M54.50 Low back pain, unspecified; Z86.73 Personal history of transient ischemic attack (TIA), and cerebral infarction without residual deficits
CPT/HCPCS: 96372; 99283; J1885

== ENCOUNTER 2025-03-28 19:40 | Emergency (ER) | payer MEDICAID, SELFPAY ==
[2025-03-28 19:40] VITALS: PULSE 88; RESP 16; O2SAT 99; BMI 19.4
[2025-03-28 19:45] VITALS: BP 127/91; PULSE 90; RESP 18; TEMP 36.8; O2SAT 97
--- NOTE | 2025-03-28 20:19 | EDNOTE_ITS ---
Lower Extremity Injury RME/HPI General Chief Complaint: Extremity Injury, Lower Stated Complaint: LEGS PAIN Time Seen by Provider: 03/28/25 19:56 Arrival date/time: 03/28/25 19:40 44-year-old male homeless with history of methamphetamine use presents emergency department for complaint of bilateral leg pain patient ports no fever nausea vomiting headache dizziness weakness Limitations: no limitations Related Data Previous Rx's ?Medication ?Instructions ?Recorded sulfamethoxazole 800 1 tab PO BID #14 tabs mg-trimethoprim 160 mg tablet (Bactrim DS) cyclobenzaprine 5 mg tablet 5 mg PO TID PRN muscle spa sm #30 07/23/23 tabs naproxen 500 mg tablet 500 mg PO BID PRN pain #30 t abs 07/23/23 naproxen 500 mg tablet 500 mg PO BID PRN pain #30 t abs 08/08/23 tamsulosin 0.4 mg capsule (Flomax) 0.4 mg PO QDAY #30 caps 08/08/23 baclofen 10 mg tablet 10 mg PO BID PRN muscle spas m #30 08/14/23 tabs naproxen 500 mg tablet 500 mg PO BID PRN pain #30 t abs 08/14/23 ibuprofen 800 mg tablet 800 mg PO TID PRN pain #30 t abs 08/28/23 ibuprofen 600 mg tablet 600 mg PO Q6H PRN pain #30 t abs 01/27/24 methocarbamol 500 mg tablet 1,000 mg (2 x 500 mg) PO Q 8H PRN 01/27/24 pain #30 tabs naproxen 500 mg tablet (Naprosyn) 500 mg PO BID #14 ta bs 03/15/24 ibuprofen 800 mg tablet 800 mg PO TID PRN pain #30 t abs 04/02/24 cyclobenzaprine 5 mg tablet 5 mg PO TID PRN muscle spa sm #14 04/07/24 tabs ibuprofen 600 mg tablet 600 mg PO Q6H PRN fever or p ain 04/07/24 #30 tabs ibuprofen 600 mg tablet 600 mg PO Q6H PRN pain #30 t abs 04/07/24 cyclobenzaprine 5 mg tablet 5 mg PO TID PRN muscle spa sm #30 04/11/24 tabs naproxen 500 mg tablet 500 mg PO BID PRN pain #30 t abs 04/11/24 ibuprofen 600 mg tablet 600 mg PO Q8H PRN pain #20 t abs 11/03/24 acetaminophen 500 mg capsule 500 mg PO Q6H PRN pain #3 0 caps 12/03/24 acetaminophen 500 mg capsule 500 mg PO Q6H PRN pain #3 0 caps 12/15/24 cyclobenzaprine 5 mg tablet 5 mg PO TID PRN muscle spa sm #15 12/20/24 tabs lidocaine 5 % topical patch 2 patch topical QDAY PRN p ain #30 12/20/24 (Lidoderm) ea Allergies Allergy/AdvReac Type Severity Reaction Status Date / Time No Known Allergies Allergy Verified 03/27/25 23:19 Review of Systems Review of Systems Systems Reviewed: All systems reviewed, normal except as documented Constitutional Constitutional: Reports system reviewed and no additional complaints, except as documented, Denies fever(s) and Denies headache(s) Eyes Eyes: Reports system reviewed and no additional complaints, except as documented and Denies blurry vision ENT Ears, Nose, Mouth, and Throat: Reports system reviewed and no additional complaints, except as documented, Denies headache(s), Denies nasal congestion and Denies nasal discharge Cardiovascular Cardiovascular: Reports system reviewed and no additional complaints, except as documented, Denies chest pain and Denies dyspnea Respiratory Respiratory: Reports system reviewed and no additional complaints, except as documented, Denies chest congestion, Denies cough and Denies dyspnea Gastrointestinal Gastrointestinal: Reports system reviewed and no additional complaints, except as documented and Denies abdominal pain Musculoskeletal Musculoskeletal: Reports system reviewed and no additional complaints, except as documented and Reports other (Bilateral leg pain) Integumentary/Breasts Skin/Breast: Reports system reviewed and no additional complaints, except as documented and Denies rash Neurologic Neurologic: Reports system reviewed and no additional complaints, except as documented, Reports as per HPI and Denies headache(s) Past Medical History Past Medical History NEUROLOGIC: Positive Cerebrovascular Accident; Negative Neurological Disorders CARDIAC: Positive Myocardial Infarction and Hypercholesterolemia; Negative Cardiac Disorders or Congestive Heart Failure RESPIRATORY: Negative Chronic Obstructive Pulmonary Disease (COPD) GASTROINTESTINAL: Negative Gastrointestinal Disorders GENITOURINARY: Negative Genitourinary Disorders or Renal Disease MUSCULOSKELETAL: Negative Musculoskeletal Disorders ENDOCRINE: Negative Endocrine Disorders, Diabetes Mellitus Type 1 or Diabetes Mellitus Type 2 HEMATOLOGIC: Negative Blood Disorders OTHER HISTORY: Negative Autoimmune Disease or Clostridium Difficile Social History SMOKING STATUS: Never smoker SUBSTANCE USE: methamphetamine ED Exam General Limitations: Present no limitations General appearance: Present alert and in no apparent distress Head Head exam: Present atraumatic Eye Eye exam: Present normal appearance, PERRL and EOMI ENT ENT exam: Present normal exam, normal oropharynx and mucous membranes moist Neck Neck exam: Present normal inspection, full ROM and trachea midline Chest Chest inspection: Present normal inspection and symmetric chest wall rise Respiratory Respiratory exam: Present normal lung sounds bilaterally Cardiovascular Cardiovascular exam: Present regular rate, normal rhythm and normal heart sounds Abdominal Exam Abdominal exam: Present soft and normal bowel sounds Extremities Exam Extremities exam: Present normal inspection and full ROM Back Exam Back exam: Present normal inspection and full ROM Neurological Exam Neurological exam: Present alert, oriented X3, CN II-XII intact, normal gait and reflexes normal; Absent motor sensory deficit Psychiatric Psychiatric exam: Present normal affect and normal mood Skin Skin exam: Present warm, dry, intact and normal color; Absent rash Course Quality Measures none Vital Signs Vital signs: Vital Signs Temperature 98.2 F 03/28/25 19:45 Pulse Rate 90 03/28/25 19:45 Respiratory Rate 18 03/28/25 19:45 Blood Pressure 127/91 H 03/28/25 19:45 Pulse Oximetry (%) 97 03/28/25 19:45 Oxygen Delivery Method Room Air 03/28/25 19:45 O2 saturation 97% room air within normal limits Extremity Injury, Lower MDM Narrative MDM Narrative:: 44-year-old male homeless with history of methamphetamine use presents emergency department for complaint of bilateral leg pain patient ports no fever nausea vomiting headache dizziness weakness On exam patient well-appearing patient with steady gait no acute emergent findings noted Patient given food and water Patient discharged home in no distress to follow-up with primary care doctor in the next 24 to 48 hours and for any worsening symptoms to return to the ER immediately Patient data External records reviewed:: [facility] previous records Clinical information provided by:: patient Social determinants that could affect healthcare access:: substance use Patient has the following chronic illnesses:: Substance abuse, homelessness How is presenting disease/condition affected by chronic disease/condition?: caused by Evaluation data The following diagnostics were reviewed and interpreted by me:: other (specify) (N/A) Lab and/or radiology exams considered but not ordered:: Considered not ordered Interpretation Summary: There are no other associated symptoms or aggravating factors no other modifying factors, patient denies taking medication before coming to ER today Medications / Prescriptions Medications or Prescriptions considered but not ordered:: Given no meds Medication administrations:: Given no meds Consultations Consultation(s) initiated? (list below): No Diagnosis Extremity Injury, Lower Differential Diagnosis: other (Leg pain, DVT, muscle spasm) Most likely diagnosis given after review of the tests above:: Chronic pain Admission Indicated Admission indicated?: not indicated Admission Request Was there a request for admission?: No Disposition Plan Disposition Plan: Discharge Discharge Attestation Discharge Attestation: The patient and all family members were given an opportunity to ask questions and understood the discharge instructions. Discharge instructions specifically effects, indications for sooner follow up or return to the emergency department, and the expected course of current diagnosis. Patient condition: Stable Discharge Plan Plan Patient Disposition: HOME (Self Care) Discharge Disposition comment: Stable Prescriptions/Referrals Prescriptions/Med Rec: No Action naproxen 500 mg tablet 500 mg PO BID PRN (Reason: pain) Qty: 30 0RF cyclobenzaprine 5 mg tablet 5 mg PO TID PRN (Reason: muscle spasm) Qty: 30 0RF naproxen 500 mg tablet 500 mg PO BID PRN (Reason: pain) Qty: 30 0RF baclofen 10 mg tablet 10 mg PO BID PRN (Reason: muscle spasm) Qty: 30 0RF ibuprofen 800 mg tablet 800 mg PO TID PRN (Reason: pain) Qty: 30 0RF ibuprofen 800 mg tablet 800 mg PO TID PRN (Reason: pain) Qty: 30 0RF ibuprofen 600 mg tablet 600 mg PO Q6H PRN (Reason: pain) Qty: 30 0RF ibuprofen 600 mg tablet 600 mg PO Q8H PRN (Reason: pain) Qty: 20 0RF acetaminophen 500 mg capsule 500 mg PO Q6H PRN (Reason: pain) Qty: 30 0RF lidocaine [Lidoderm] 5 % adhesive patch,medicated 2 patch topical QDAY PRN (Reason: pain) Qty: 30 0RF Rx Instructions: leave on most painful area for up to 12 hrs cyclobenzaprine 5 mg tablet 5 mg PO TID PRN (Reason: muscle spasm) Qty: 15 0RF sulfamethoxazole-trimethoprim [Bactrim DS] 800-160 mg tablet 1 tab PO BID Qty: 14 0RF naproxen 500 mg tablet 500 mg PO BID PRN (Reason: pain) Qty: 30 0RF tamsulosin [Flomax] 0.4 mg capsule 0.4 mg PO QDAY Qty: 30 0RF ibuprofen 600 mg tablet 600 mg PO Q6H PRN (Reason: pain) Qty: 30 0RF methocarbamol 500 mg tablet 1,000 mg PO Q8H PRN (Reason: pain) Qty: 30 0RF naproxen [Naprosyn] 500 mg tablet 500 mg PO BID Qty: 14 0RF ibuprofen 600 mg tablet 600 mg PO Q6H PRN (Reason: fever or pain) Qty: 30 0RF cyclobenzaprine 5 mg tablet 5 mg PO TID PRN (Reason: muscle spasm) Qty: 14 0RF naproxen 500 mg tablet 500 mg PO BID PRN (Reason: pain) Qty: 30 0RF cyclobenzaprine 5 mg tablet 5 mg PO TID PRN (Reason: muscle spasm) Qty: 30 0RF acetaminophen 500 mg capsule 500 mg PO Q6H PRN (Reason: pain) Qty: 30 0RF Problem List Clinical Impression: Homeless, Chronic pain Patient/Caregiver Discharge Instructions Education Materials: ED Chronic Pain Additional Instructions: Please follow up with your primary care doctor in the next 24-48hrs for any worsening symptoms return here immediately Print Language: Puerto Rican Stand Alone Forms: Tami Award Info., Patient Portal Info Letter PA/RECTIFYING ATTENDANT Supervising Physician PA/RECTIFYING ATTENDANT Supervising Physician: Dr gordon
== END 2025-03-28 20:31 | disposition home or self-care (01) ==
PROVIDERS: Emergency Provider Emergency Medicine
DX: M79.605 Pain in left leg (principal); M79.604 Pain in right leg; G89.29 Other chronic pain; Z59.00 Homelessness unspecified
CPT/HCPCS: 99281

== ENCOUNTER 2025-03-29 16:07 | Emergency (ER) | payer MEDICAID, SELFPAY ==
[2025-03-29 16:07] VITALS: PULSE 92; O2SAT 96
[2025-03-29 16:15] VITALS: BP 131/82; PULSE 93; RESP 16; TEMP 36.9; O2SAT 97; BMI 27.2
--- NOTE | 2025-03-29 16:24 | EDNOTE_ITS ---
Lower Extremity Injury RME/HPI General Chief Complaint: Extremity Injury, Lower Stated Complaint: B/L LEG PAIN Time Seen by Provider: 03/29/25 16:16 Arrival date/time: 03/29/25 16:07 44 year old male present to emergency room with c/o bilateral leg pain. Homeless and came in [facility] for same complaints. LOCATION: leg SEVERITY: Symptoms are described as being severe with limitations on activities of daily living QUALITY: Symptoms are described as being dull or achy CONTEXT: none DURATION/TIMING: The symptoms started approximately ongoing ASSOCIATED SYMPTOMS: The patient is unable to identify any other associated symptoms. MODIFYING FACTORS: The patient is unable to identify any alleviating or aggrav ating symptoms. PERTINENT ROS: no fevers, no headache, no neck or chest pain, no unexplained nausea or vomiting, no focal neurological deficits REVIEW OF SYSTEMS: See History of Present Illness - with the exception of those mentioned in the history of present illness, all other systems reviewed and reported as negative GENERAL: In general the patient is awake, interactive, in an emergency de [facility]. HEAD/EYES/EARS/NOSE/THROAT: normo-cephalic, atraumatic, mucus membranes are moist, anicteric, palpebral conjunctiva is pink, trachea is midline. BACK: normal range of motion without pain. NEUROLOGICAL: cranio-facial features are symmetric, moves all four extremities equally without obvious limitations or weakness. EXTREMITY: no tenderness to palpation over the long bones or large joints of the bilateral upperr extremities, no joint swelling, no joint erythema, SKIN: warm, dry, well-perfused, no jaundice, no rash, no telangiectasias or petechia. PSYCH: calm, cooperative, no evidence of psychosis or agitation Related Data Previous Rx's ?Medication ?Instructions ?Recorded sulfamethoxazole 800 1 tab PO BID #14 tabs mg-trimethoprim 160 mg tablet (Bactrim DS) cyclobenzaprine 5 mg tablet 5 mg PO TID PRN muscle spa sm #30 07/23/23 tabs naproxen 500 mg tablet 500 mg PO BID PRN pain #30 t abs 07/23/23 naproxen 500 mg tablet 500 mg PO BID PRN pain #30 t abs 08/08/23 tamsulosin 0.4 mg capsule (Flomax) 0.4 mg PO QDAY #30 caps 08/08/23 baclofen 10 mg tablet 10 mg PO BID PRN muscle spas m #30 08/14/23 tabs naproxen 500 mg tablet 500 mg PO BID PRN pain #30 t abs 08/14/23 ibuprofen 800 mg tablet 800 mg PO TID PRN pain #30 t abs 08/28/23 ibuprofen 600 mg tablet 600 mg PO Q6H PRN pain #30 t abs 01/27/24 methocarbamol 500 mg tablet 1,000 mg (2 x 500 mg) PO Q 8H PRN 01/27/24 pain #30 tabs naproxen 500 mg tablet (Naprosyn) 500 mg PO BID #14 ta bs 03/15/24 ibuprofen 800 mg tablet 800 mg PO TID PRN pain #30 t abs 04/02/24 cyclobenzaprine 5 mg tablet 5 mg PO TID PRN muscle spa sm #14 04/07/24 tabs ibuprofen 600 mg tablet 600 mg PO Q6H PRN fever or p ain 04/07/24 #30 tabs ibuprofen 600 mg tablet 600 mg PO Q6H PRN pain #30 t abs 04/07/24 cyclobenzaprine 5 mg tablet 5 mg PO TID PRN muscle spa sm #30 04/11/24 tabs naproxen 500 mg tablet 500 mg PO BID PRN pain #30 t abs 04/11/24 ibuprofen 600 mg tablet 600 mg PO Q8H PRN pain #20 t abs 11/03/24 acetaminophen 500 mg capsule 500 mg PO Q6H PRN pain #3 0 caps 12/03/24 acetaminophen 500 mg capsule 500 mg PO Q6H PRN pain #3 0 caps 12/15/24 cyclobenzaprine 5 mg tablet 5 mg PO TID PRN muscle spa sm #15 12/20/24 tabs lidocaine 5 % topical patch 2 patch topical QDAY PRN p ain #30 12/20/24 (Lidoderm) ea Allergies Allergy/AdvReac Type Severity Reaction Status Date / Time No Known Allergies Allergy Verified 03/29/25 16:08 Course Course Course Narrative: homeless individual report just want something to eat and drink Quality Measures none Vital Signs Vital signs: Vital Signs Temperature 98.4 F 03/29/25 16:15 Pulse Rate 93 03/29/25 16:15 Respiratory Rate 16 03/29/25 16:15 Blood Pressure 131/82 H 03/29/25 16:15 Pulse Oximetry (%) 97 03/29/25 16:15 Oxygen Delivery Method Room Air 03/29/25 16:15 Extremity Injury, Lower Patient data External records reviewed:: None Clinical information provided by:: none Social determinants that could affect healthcare access:: housing Patient has the following chronic illnesses:: as stated in chart How is presenting disease/condition affected by chronic disease/condition?: no chronic disease Evaluation data The following diagnostics were reviewed and interpreted by me:: other (specify) Lab and/or radiology exams considered but not ordered:: n/a Interpretation Summary: n/a Medications / Prescriptions Medications or Prescriptions considered but not ordered:: na Medication administrations:: na Consultations Consultation(s) initiated? (list below): No Diagnosis Most likely diagnosis given after review of the tests above:: homelesss Admission Indicated Admission indicated?: not indicated Admission Request Was there a request for admission?: No Disposition Plan Disposition Plan: Discharge Discharge Attestation Discharge Attestation: The patient and all family members were given an opportunity to ask questions and understood the discharge instructions. Discharge instructions specifically effects, indications for sooner follow up or return to the emergency department, and the expected course of current diagnosis. Patient condition: Stable Discharge Plan Plan Patient Disposition: HOME (Self Care) Prescriptions/Referrals Prescriptions/Med Rec: No Action naproxen 500 mg tablet 500 mg PO BID PRN (Reason: pain) Qty: 30 0RF cyclobenzaprine 5 mg tablet 5 mg PO TID PRN (Reason: muscle spasm) Qty: 30 0RF naproxen 500 mg tablet 500 mg PO BID PRN (Reason: pain) Qty: 30 0RF baclofen 10 mg tablet 10 mg PO BID PRN (Reason: muscle spasm) Qty: 30 0RF ibuprofen 800 mg tablet 800 mg PO TID PRN (Reason: pain) Qty: 30 0RF ibuprofen 800 mg tablet 800 mg PO TID PRN (Reason: pain) Qty: 30 0RF ibuprofen 600 mg tablet 600 mg PO Q6H PRN (Reason: pain) Qty: 30 0RF ibuprofen 600 mg tablet 600 mg PO Q8H PRN (Reason: pain) Qty: 20 0RF acetaminophen 500 mg capsule 500 mg PO Q6H PRN (Reason: pain) Qty: 30 0RF lidocaine [Lidoderm] 5 % adhesive patch,medicated 2 patch topical QDAY PRN (Reason: pain) Qty: 30 0RF Rx Instructions: leave on most painful area for up to 12 hrs cyclobenzaprine 5 mg tablet 5 mg PO TID PRN (Reason: muscle spasm) Qty: 15 0RF sulfamethoxazole-trimethoprim [Bactrim DS] 800-160 mg tablet 1 tab PO BID Qty: 14 0RF naproxen 500 mg tablet 500 mg PO BID PRN (Reason: pain) Qty: 30 0RF tamsulosin [Flomax] 0.4 mg capsule 0.4 mg PO QDAY Qty: 30 0RF ibuprofen 600 mg tablet 600 mg PO Q6H PRN (Reason: pain) Qty: 30 0RF methocarbamol 500 mg tablet 1,000 mg PO Q8H PRN (Reason: pain) Qty: 30 0RF naproxen [Naprosyn] 500 mg tablet 500 mg PO BID Qty: 14 0RF ibuprofen 600 mg tablet 600 mg PO Q6H PRN (Reason: fever or pain) Qty: 30 0RF cyclobenzaprine 5 mg tablet 5 mg PO TID PRN (Reason: muscle spasm) Qty: 14 0RF naproxen 500 mg tablet 500 mg PO BID PRN (Reason: pain) Qty: 30 0RF cyclobenzaprine 5 mg tablet 5 mg PO TID PRN (Reason: muscle spasm) Qty: 30 0RF acetaminophen 500 mg capsule 500 mg PO Q6H PRN (Reason: pain) Qty: 30 0RF Problem List Clinical Impression: Acute leg pain Patient/Caregiver Discharge Instructions Education Materials: ED RICE Print Language: Pry[place]in[place] Stand Alone Forms: [employer] Award Info., Patient Portal Info Letter
--- NOTE | 2025-03-29 16:37 | PC.NURSE ---
Addendum entered by Ирина Herrera RN 03/29/25 16:38: ATE [employer] Original Note: PT SAT IN LOBBY AT [employer], THEN GOT UP AND SHUFFLED TO THE DOOR AND SAID HE IS LEAVING HE FEELS BETTER.
--- NOTE | 2025-03-29 16:41 | PC.NURSE ---
DISCHARGED BY PROVIDER
== END 2025-03-29 16:42 | disposition home or self-care (01) ==
LOC: SERX 16:30
PROVIDERS: Emergency Provider Family Medicine
DX: M79.604 Pain in right leg (principal); M79.605 Pain in left leg; Z59.00 Homelessness unspecified
CPT/HCPCS: 99281

== ENCOUNTER 2025-03-30 01:16 | Emergency (ER) | payer MEDICAID, SELFPAY ==
[2025-03-30 01:17] VITALS: PULSE 88; RESP 18; BMI 28.8
[2025-03-30 01:24] VITALS: BP 129/89; PULSE 99; RESP 20; TEMP 36.8; O2SAT 96
--- NOTE | 2025-03-30 01:30 | PD.EDRME ---
Rapid Medical Screening Exam RME Arrival date/time: 03/30/25 01:16 44 year old male present to ED for c/o of sandwich. patient is currently homeless I have greeted and performed a focused initial assessment of this patient. A comprehensive ED assessment and evaluation of the patient, analysis of all test results, and completion of the medical decision making process will be conducted by additional ED providers. Chief Complaint: Extremity Injury, Lower Time Seen by Provider: 03/30/25 01:29 Vital signs: Vital Signs Temperature 98.2 F 03/30/25 01:24 Pulse Rate 99 03/30/25 01:24 Respiratory Rate 20 03/30/25 01:24 Blood Pressure 129/89 H 03/30/25 01:24 Pulse Oximetry (%) 96 03/30/25 01:24 Oxygen Delivery Method Room Air 03/30/25 01:24
== END 2025-03-30 02:09 | disposition left against medical advice (07) ==
PROVIDERS: Emergency Provider Emergency Medicine
DX: S89.90XA Unspecified injury of unspecified lower leg, initial encounter (principal); Z53.29 Procedure and treatment not carried out because of patient's decision for other reasons; Z59.00 Homelessness unspecified
CPT/HCPCS: 99281

== ENCOUNTER 2025-03-30 16:55 | Emergency (ER) | payer MEDICAID, SELFPAY ==
[2025-03-30 16:56] VITALS: PULSE 100; RESP 20; O2SAT 98
[2025-03-30 17:14] VITALS: BP 129/81; PULSE 104; RESP 18; TEMP 36.7; O2SAT 98
[2025-03-30] MEDS: KETOROLAC INJ 60 MG/2 ML VIAL 30 MG IM (17:22)
--- NOTE | 2025-03-30 17:25 | EDNOTE_ITS ---
ED General RME/HPI General Chief complaint: General Adult/Misc Complain Stated complaint: LEGS HURTING ALL DAY, 08/29. WANTS TRAMADOL SHOT Time Seen by Provider: 03/30/25 17:11 Source: patient Arrival date/time: 03/30/25 16:55 44-year-old male with no known medical history presents to the emergency room with a chief complaint of bilateral lower leg pain. Mode of arrival: ambulatory Limitations: no limitations Related Data Previous Rx's ?Medication ?Instructions ?Recorded sulfamethoxazole 800 1 tab PO BID #14 tabs mg-trimethoprim 160 mg tablet (Bactrim DS) cyclobenzaprine 5 mg tablet 5 mg PO TID PRN muscle spa sm #30 07/23/23 tabs naproxen 500 mg tablet 500 mg PO BID PRN pain #30 t abs 07/23/23 naproxen 500 mg tablet 500 mg PO BID PRN pain #30 t abs 08/08/23 tamsulosin 0.4 mg capsule (Flomax) 0.4 mg PO QDAY #30 caps 08/08/23 baclofen 10 mg tablet 10 mg PO BID PRN muscle spas m #30 08/14/23 tabs naproxen 500 mg tablet 500 mg PO BID PRN pain #30 t abs 08/14/23 ibuprofen 800 mg tablet 800 mg PO TID PRN pain #30 t abs 08/28/23 ibuprofen 600 mg tablet 600 mg PO Q6H PRN pain #30 t abs 01/27/24 methocarbamol 500 mg tablet 1,000 mg (2 x 500 mg) PO Q 8H PRN 01/27/24 pain #30 tabs naproxen 500 mg tablet (Naprosyn) 500 mg PO BID #14 ta bs 03/15/24 ibuprofen 800 mg tablet 800 mg PO TID PRN pain #30 t abs 04/02/24 cyclobenzaprine 5 mg tablet 5 mg PO TID PRN muscle spa sm #14 04/07/24 tabs ibuprofen 600 mg tablet 600 mg PO Q6H PRN fever or p ain 04/07/24 #30 tabs ibuprofen 600 mg tablet 600 mg PO Q6H PRN pain #30 t abs 04/07/24 cyclobenzaprine 5 mg tablet 5 mg PO TID PRN muscle spa sm #30 04/11/24 tabs naproxen 500 mg tablet 500 mg PO BID PRN pain #30 t abs 04/11/24 ibuprofen 600 mg tablet 600 mg PO Q8H PRN pain #20 t abs 11/03/24 acetaminophen 500 mg capsule 500 mg PO Q6H PRN pain #3 0 caps 12/03/24 acetaminophen 500 mg capsule 500 mg PO Q6H PRN pain #3 0 caps 12/15/24 cyclobenzaprine 5 mg tablet 5 mg PO TID PRN muscle spa sm #15 12/20/24 tabs lidocaine 5 % topical patch 2 patch topical QDAY PRN p ain #30 12/20/24 (Lidoderm) ea Allergies Allergy/AdvReac Type Severity Reaction Status Date / Time No Known Allergies Allergy Verified 03/30/25 16:58 Review of Systems Review of Systems Systems Reviewed: All systems reviewed, normal except as documented Constitutional Constitutional: Reports system reviewed and no additional complaints, except as documented, Denies fatigue, Denies fever(s), Denies headache(s) and Denies weakness Eyes Eyes: Reports system reviewed and no additional complaints, except as documented, Denies blurry vision and Denies change in vision ENT Ears, Nose, Mouth, and Throat: Reports system reviewed and no additional complaints, except as documented, Denies otalgia, Denies headache(s), Denies nasal congestion, Denies throat swelling and Denies vertigo Cardiovascular Cardiovascular: Reports system reviewed and no additional complaints, except as documented, Denies chest pain, Denies dyspnea and Denies dyspnea on exertion Respiratory Respiratory: Reports system reviewed and no additional complaints, except as documented, Denies chest congestion, Denies cough, Denies dyspnea, Denies dyspnea on exertion and Denies wheezing Gastrointestinal Gastrointestinal: Reports system reviewed and no additional complaints, except as documented, Denies abdominal pain, Denies cramping, Denies nausea and Denies vomiting Genitourinary Genitourinary: Reports system reviewed and no additional complaints, except as documented, Denies dysuria and Denies hematuria Musculoskeletal Musculoskeletal: Reports system reviewed and no additional complaints, except as documented, Reports arthralgias, Denies back pain and Reports limited range of motion Integumentary/Breasts Skin/Breast: Reports system reviewed and no additional complaints, except as documented and Denies wounds Neurologic Neurologic: Reports system reviewed and no additional complaints, except as documented, Denies confusion, Denies headache(s), Denies lack of coordination, Denies vertigo and Denies weakness Psychiatric Psychiatric: Reports system reviewed and no additional complaints, except as documented, Denies anxiety, Denies confusion, Denies depression, Denies paranoia, Denies suicidal ideation and Denies tactile hallucinations Endocrine Endocrine: Reports system reviewed and no additional complaints, except as documented and Denies fatigue Hematologic/Lymphatic Hematologic/Lymphatic: Reports system reviewed and no additional complaints, except as documented and Denies lymphadenopathy Allergic/Immunologic Allergic/Immunologic: Reports system reviewed and no additional complaints, except as documented, Denies throat swelling, Denies urticaria and Denies wheezing Past Medical History Past Medical History NEUROLOGIC: Positive Cerebrovascular Accident; Negative Neurological Disorders CARDIAC: Positive Myocardial Infarction and Hypercholesterolemia; Negative Cardiac Disorders or Congestive Heart Failure RESPIRATORY: Negative Chronic Obstructive Pulmonary Disease (COPD) GASTROINTESTINAL: Negative Gastrointestinal Disorders GENITOURINARY: Negative Genitourinary Disorders or Renal Disease MUSCULOSKELETAL: Negative Musculoskeletal Disorders ENDOCRINE: Negative Endocrine Disorders, Diabetes Mellitus Type 1 or Diabetes Mellitus Type 2 HEMATOLOGIC: Negative Blood Disorders OTHER HISTORY: Negative Autoimmune Disease or Clostridium Difficile Social History SMOKING STATUS: Current every day smoker SUBSTANCE USE: methamphetamine ED Exam General Limitations: Present no limitations General appearance: Present alert and in no apparent distress Head Head exam: Present atraumatic Eye Eye exam: Present normal appearance, PERRL and EOMI ENT ENT exam: Present normal exam, normal oropharynx and mucous membranes moist Neck Neck exam: Present normal inspection, full ROM and trachea midline Chest Chest inspection: Present normal inspection and symmetric chest wall rise Respiratory Respiratory exam: Present normal lung sounds bilaterally Cardiovascular Cardiovascular exam: Present regular rate, normal rhythm and normal heart sounds Abdominal Exam Abdominal exam: Present soft and normal bowel sounds Extremities Exam Extremities exam: Present normal inspection and full ROM Back Exam Back exam: Present normal inspection and full ROM Neurological Exam Neurological exam: Present alert, oriented X3 and CN II-XII intact Psychiatric Psychiatric exam: Present normal affect and normal mood Skin Skin exam: Present warm, dry, intact and normal color Course Quality Measures none Orders Category Date Time Status Ketorolac Inj [Toradol Inj] Med 03/30/25 17:11 Discontinued 30 mg IM X1 ONE Vital Signs Vital signs: Vital Signs Temperature 98.1 F 03/30/25 17:14 Pulse Rate 104 H 03/30/25 17:14 Respiratory Rate 18 03/30/25 17:14 Blood Pressure 129/81 03/30/25 17:14 Pulse Oximetry (%) 98 03/30/25 17:14 Oxygen Delivery Method Room Air 03/30/25 17:14 O2 saturation 98% within normal limits Discharge Plan Plan Patient Disposition: HOME (Self Care) Discharge Disposition comment: Stable Prescriptions/Referrals Prescriptions/Med Rec: No Action naproxen 500 mg tablet 500 mg PO BID PRN (Reason: pain) Qty: 30 0RF cyclobenzaprine 5 mg tablet 5 mg PO TID PRN (Reason: muscle spasm) Qty: 30 0RF naproxen 500 mg tablet 500 mg PO BID PRN (Reason: pain) Qty: 30 0RF baclofen 10 mg tablet 10 mg PO BID PRN (Reason: muscle spasm) Qty: 30 0RF ibuprofen 800 mg tablet 800 mg PO TID PRN (Reason: pain) Qty: 30 0RF ibuprofen 800 mg tablet 800 mg PO TID PRN (Reason: pain) Qty: 30 0RF ibuprofen 600 mg tablet 600 mg PO Q6H PRN (Reason: pain) Qty: 30 0RF ibuprofen 600 mg tablet 600 mg PO Q8H PRN (Reason: pain) Qty: 20 0RF acetaminophen 500 mg capsule 500 mg PO Q6H PRN (Reason: pain) Qty: 30 0RF lidocaine [Lidoderm] 5 % adhesive patch,medicated 2 patch topical QDAY PRN (Reason: pain) Qty: 30 0RF Rx Instructions: leave on most painful area for up to 12 hrs cyclobenzaprine 5 mg tablet 5 mg PO TID PRN (Reason: muscle spasm) Qty: 15 0RF sulfamethoxazole-trimethoprim [Bactrim DS] 800-160 mg tablet 1 tab PO BID Qty: 14 0RF naproxen 500 mg tablet 500 mg PO BID PRN (Reason: pain) Qty: 30 0RF tamsulosin [Flomax] 0.4 mg capsule 0.4 mg PO QDAY Qty: 30 0RF ibuprofen 600 mg tablet 600 mg PO Q6H PRN (Reason: pain) Qty: 30 0RF methocarbamol 500 mg tablet 1,000 mg PO Q8H PRN (Reason: pain) Qty: 30 0RF naproxen [Naprosyn] 500 mg tablet 500 mg PO BID Qty: 14 0RF ibuprofen 600 mg tablet 600 mg PO Q6H PRN (Reason: fever or pain) Qty: 30 0RF cyclobenzaprine 5 mg tablet 5 mg PO TID PRN (Reason: muscle spasm) Qty: 14 0RF naproxen 500 mg tablet 500 mg PO BID PRN (Reason: pain) Qty: 30 0RF cyclobenzaprine 5 mg tablet 5 mg PO TID PRN (Reason: muscle spasm) Qty: 30 0RF acetaminophen 500 mg capsule 500 mg PO Q6H PRN (Reason: pain) Qty: 30 0RF Referrals: No Primary/Family,Physician [Primary Care Provider] - In 1 week Problem List Clinical Impression: Leg pain Patient/Caregiver Discharge Instructions Education Materials: ED Pain, Acute, Uncertain Cause Additional Instructions: Please follow-up with your primary care provider in the next 24 to 40 hours. 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 Ramsey MDM Narrative MDM hospital course (for use when minimal MDM required): 44-year-old male with no known medical history presents to the emergency room with a chief complaint of bilateral lower leg pain. Patient is hemodynamically stable and in no apparent distress. Patient denies any saddle anesthesia or lower extremity numbness. Patient has a normal shuffling gait. Patient states he will see his primary care provider tomorrow for further management for his chronic pain. Patient was discharged and educated to follow-up with primary care provider in the next 24 to 48 hours and return to the emergency room for any evidence of worsening signs or symptoms Clinical Information Provided by: none Medical Records reviewed None Meds/Rx considered, not ordered describe: Toradol shot given Labs/Rad/Tests considered, not ordered None Chronic Illness/Social Conditions which may negatively complicate care or outcome(s)-explain: Homeless and ETOH/drugs/substance abuse EKG EKG not done Labs Labs: none Imaging Imaging interpretation: none or see narrative above Medication Administration(s) Medication Administration History Discontinued Medications Ketorolac Tromethamine (Ketorolac Inj 60 Mg/2 Ml Vial) 30 mg IM X1 ONE Stop: 03/30/25 17:12 Last Admin: 03/30/25 17:22 Dose: 30 mg Documented By: BINU Diagnosis Differential Diagnosis ED Complaint MDM: Chronic back pain/acute leg pain Diagnoses ruled out and/or further discussions: Acute leg pain
== END 2025-03-30 17:38 | disposition home or self-care (01) ==
PROVIDERS: Emergency Provider Family Medicine; PCP Family Medicine
DX: M79.671 Pain in right foot (principal); M79.672 Pain in left foot
CPT/HCPCS: 96372; 99283; J1885

== ENCOUNTER 2025-03-31 08:00 | Emergency (ER) | payer MEDICAID, SELFPAY ==
[2025-03-31 08:07] VITALS: PULSE 81; O2SAT 98
[2025-03-31 08:40] VITALS: BP 125/69; PULSE 118; RESP 18; TEMP 37.1; O2SAT 97
[2025-03-31 08:43] VITALS: BMI 25.0
--- NOTE | 2025-03-31 08:43 | EDNOTE_ITS ---
ED General RME/HPI General Stated complaint: LEG PAIN Time Seen by Provider: 03/31/25 08:28 Source: patient Arrival date/time: 03/31/25 08:00 44-year-old male with no known medical history presents to the emergency room with a chief complaint of bilateral lower leg pain. Mode of arrival: ambulatory Limitations: no limitations Related Data Previous Rx's ?Medication ?Instructions ?Recorded sulfamethoxazole 800 1 tab PO BID #14 tabs mg-trimethoprim 160 mg tablet (Bactrim DS) cyclobenzaprine 5 mg tablet 5 mg PO TID PRN muscle spa sm #30 07/23/23 tabs naproxen 500 mg tablet 500 mg PO BID PRN pain #30 t abs 07/23/23 naproxen 500 mg tablet 500 mg PO BID PRN pain #30 t abs 08/08/23 tamsulosin 0.4 mg capsule (Flomax) 0.4 mg PO QDAY #30 caps 08/08/23 baclofen 10 mg tablet 10 mg PO BID PRN muscle spas m #30 08/14/23 tabs naproxen 500 mg tablet 500 mg PO BID PRN pain #30 t abs 08/14/23 ibuprofen 800 mg tablet 800 mg PO TID PRN pain #30 t abs 08/28/23 ibuprofen 600 mg tablet 600 mg PO Q6H PRN pain #30 t abs 01/27/24 methocarbamol 500 mg tablet 1,000 mg (2 x 500 mg) PO Q 8H PRN 01/27/24 pain #30 tabs naproxen 500 mg tablet (Naprosyn) 500 mg PO BID #14 ta bs 03/15/24 ibuprofen 800 mg tablet 800 mg PO TID PRN pain #30 t abs 04/02/24 cyclobenzaprine 5 mg tablet 5 mg PO TID PRN muscle spa sm #14 04/07/24 tabs ibuprofen 600 mg tablet 600 mg PO Q6H PRN fever or p ain 04/07/24 #30 tabs ibuprofen 600 mg tablet 600 mg PO Q6H PRN pain #30 t abs 04/07/24 cyclobenzaprine 5 mg tablet 5 mg PO TID PRN muscle spa sm #30 04/11/24 tabs naproxen 500 mg tablet 500 mg PO BID PRN pain #30 t abs 05/23/24 ibuprofen 600 mg tablet 600 mg PO Q8H PRN pain #20 t abs 11/03/24 acetaminophen 500 mg capsule 500 mg PO Q6H PRN pain #3 0 caps 12/03/24 acetaminophen 500 mg capsule 500 mg PO Q6H PRN pain #3 0 caps 12/15/24 cyclobenzaprine 5 mg tablet 5 mg PO TID PRN muscle spa sm #15 12/20/24 tabs lidocaine 5 % topical patch 2 patch topical QDAY PRN p ain #30 12/20/24 (Lidoderm) ea Allergies Allergy/AdvReac Type Severity Reaction Status Date / Time No Known Allergies Allergy Verified 03/31/25 08:11 Review of Systems Review of Systems Systems Reviewed: All systems reviewed, normal except as documented Constitutional Constitutional: Reports system reviewed and no additional complaints, except as documented, Denies fatigue, Denies fever(s), Denies headache(s) and Denies weakness Eyes Eyes: Reports system reviewed and no additional complaints, except as docu mented, Denies blurry vision and Denies change in vision ENT Ears, Nose, Mouth, and Throat: Reports system reviewed and no additional complaints, except as documented, Denies otalgia, Denies headache(s), Denies nasal congestion, Denies throat swelling and Denies vertigo Cardiovascular Cardiovascular: Reports system reviewed and no additional complaints, except as documented, Denies chest pain, Denies dyspnea and Denies dyspnea on exertion Respiratory Respiratory: Reports system reviewed and no additional complaints, except as documented, Denies chest congestion, Denies cough, Denies dyspnea, Denies dyspnea on exertion and Denies wheezing Gastrointestinal Gastrointestinal: Reports system reviewed and no additional complaints, except as documented, Denies abdominal pain, Denies cramping, Denies nausea and Denies vomiting Genitourinary Genitourinary: Reports system reviewed and no additional complaints, except as documented, Denies dysuria and Denies hematuria Musculoskeletal Musculoskeletal: Reports system reviewed and no additional complaints, except as documented and Denies back pain Integumentary/Breasts Skin/Breast: Reports system reviewed and no additional complaints, except as documented and Denies wounds Neurologic Neurologic: Reports system reviewed and no additional complaints, except as documented, Denies confusion, Denies headache(s), Denies lack of coordination, Denies vertigo and Denies weakness Psychiatric Psychiatric: Reports system reviewed and no additional complaints, except as documented, Denies anxiety, Denies confusion, Denies depression, Denies paranoia, Denies suicidal ideation and Denies tactile hallucinations Endocrine Endocrine: Reports system reviewed and no additional complaints, except as documented and Denies fatigue Hematologic/Lymphatic Hematologic/Lymphatic: Reports system reviewed and no additional complaints, except as documented and Denies lymphadenopathy Allergic/Immunologic Allergic/Immunologic: Reports system reviewed and no additional complaints, except as documented, Denies throat swelling, Denies urticaria and Denies wheezing Past Medical History Past Medical History NEUROLOGIC: Positive Cerebrovascular Accident; Negative Neurological Disorders CARDIAC: Positive Myocardial Infarction and Hypercholesterolemia; Negative Cardiac Disorders or Congestive Heart Failure RESPIRATORY: Negative Chronic Obstructive Pulmonary Disease (COPD) GASTROINTESTINAL: Negative Gastrointestinal Disorders GENITOURINARY: Negative Genitourinary Disorders or Renal Disease MUSCULOSKELETAL: Negative Musculoskeletal Disorders ENDOCRINE: Negative Endocrine Disorders, Diabetes Mellitus Type 1 or Diabetes Mellitus Type 2 HEMATOLOGIC: Negative Blood Disorders OTHER HISTORY: Negative Autoimmune Disease or Clostridium Difficile Social History SMOKING STATUS: Current every day smoker SUBSTANCE USE: methamphetamine ED Exam General Limitations: Present no limitations General appearance: Present alert and in no apparent distress Head Head exam: Present atraumatic Eye Eye exam: Present normal appearance, PERRL and EOMI ENT ENT exam: Present normal exam, normal oropharynx and mucous membranes moist Neck Neck exam: Present normal inspection, full ROM and trachea midline Chest Chest inspection: Present normal inspection and symmetric chest wall rise Respiratory Respiratory exam: Present normal lung sounds bilaterally Cardiovascular Cardiovascular exam: Present regular rate, normal rhythm and normal heart sounds Abdominal Exam Abdominal exam: Present soft and normal bowel sounds Extremities Exam Extremities exam: Present normal inspection and full ROM Back Exam Back exam: Present normal inspection and full ROM Neurological Exam Neurological exam: Present alert, oriented X3 and CN II-XII intact Psychiatric Psychiatric exam: Present normal affect and normal mood Skin Skin exam: Present warm, dry, intact and normal color Course Quality Measures none Orders Category Date Time Status Acetaminophen Tab [Tylenol ES Tab] Med 03/31/25 08:39 Discontinued 1,000 mg PO X1 ONE Vital Signs Vital signs: Vital Signs Temperature 98.7 F 03/31/25 08:40 Pulse Rate 118 H 03/31/25 08:40 Respiratory Rate 18 03/31/25 08:40 Blood Pressure 125/69 03/31/25 08:40 Pulse Oximetry (%) 97 03/31/25 08:40 Oxygen Delivery Method Room Air 03/31/25 08:40 Discharge Plan Plan Patient Disposition: HOME (Self Care) Discharge Disposition comment: Stable Prescriptions/Referrals Prescriptions/Med Rec: No Action naproxen 500 mg tablet 500 mg PO BID PRN (Reason: pain) Qty: 30 0RF cyclobenzaprine 5 mg tablet 5 mg PO TID PRN (Reason: muscle spasm) Qty: 30 0RF naproxen 500 mg tablet 500 mg PO BID PRN (Reason: pain) Qty: 30 0RF baclofen 10 mg tablet 10 mg PO BID PRN (Reason: muscle spasm) Qty: 30 0RF ibuprofen 800 mg tablet 800 mg PO TID PRN (Reason: pain) Qty: 30 0RF ibuprofen 800 mg tablet 800 mg PO TID PRN (Reason: pain) Qty: 30 0RF ibuprofen 600 mg tablet 600 mg PO Q6H PRN (Reason: pain) Qty: 30 0RF ibuprofen 600 mg tablet 600 mg PO Q8H PRN (Reason: pain) Qty: 20 0RF acetaminophen 500 mg capsule 500 mg PO Q6H PRN (Reason: pain) Qty: 30 0RF lidocaine [Lidoderm] 5 % adhesive patch,medicated 2 patch topical QDAY PRN (Reason: pain) Qty: 30 0RF Rx Instructions: leave on most painful area for up to 12 hrs cyclobenzaprine 5 mg tablet 5 mg PO TID PRN (Reason: muscle spasm) Qty: 15 0RF sulfamethoxazole-trimethoprim [Bactrim DS] 800-160 mg tablet 1 tab PO BID Qty: 14 0RF naproxen 500 mg tablet 500 mg PO BID PRN (Reason: pain) Qty: 30 0RF tamsulosin [Flomax] 0.4 mg capsule 0.4 mg PO QDAY Qty: 30 0RF ibuprofen 600 mg tablet 600 mg PO Q6H PRN (Reason: pain) Qty: 30 0RF methocarbamol 500 mg tablet 1,000 mg PO Q8H PRN (Reason: pain) Qty: 30 0RF naproxen [Naprosyn] 500 mg tablet 500 mg PO BID Qty: 14 0RF ibuprofen 600 mg tablet 600 mg PO Q6H PRN (Reason: fever or pain) Qty: 30 0RF cyclobenzaprine 5 mg tablet 5 mg PO TID PRN (Reason: muscle spasm) Qty: 14 0RF naproxen 500 mg tablet 500 mg PO BID PRN (Reason: pain) Qty: 30 0RF cyclobenzaprine 5 mg tablet 5 mg PO TID PRN (Reason: muscle spasm) Qty: 30 0RF acetaminophen 500 mg capsule 500 mg PO Q6H PRN (Reason: pain) Qty: 30 0RF Problem List Clinical Impression: Chronic leg pain Patient/Caregiver Discharge Instructions Education Materials: ED Chronic Pain Additional Instructions: Please follow-up with your primary care provider in the next 24 to 48 hours. For any evidence of worsening signs or symptoms return to the emergency room immediately Print Language: Vietnamese Stand Alone Forms: [employer] Award Info., Patient Portal Info Letter PA/INGREDIENT HANDLER Supervising Physician PA/INGREDIENT HANDLER Supervising Physician: Dr. Ramsey MDM Narrative MDM hospital course (for use when minimal MDM required): 44-year-old male with no known medical history presents to the emergency room with a chief complaint of bilateral lower leg pain. Patient is hemodynamically stable and in no apparent distress. Patient has a normal shuffling gait. Patient has a history of chronic back pain is homeless and is a frequent visitor. Patient states he is just here for some pain medication due to his pain. Tylenol was given to the patient patient was discharged and educated to follow-up with his primary care provider and return to the emergency room for any evidence of worsening signs or symptoms Clinical Information Provided by: none Medical Records reviewed None Labs/Rad/Tests considered, not ordered None Chronic Illness/Social Conditions which may negatively complicate care or outcome(s)-explain: Homeless EKG EKG not done Labs Labs: none Imaging Imaging interpretation: none or see narrative above Medication Administration(s) Medication Administration History Discontinued Medications Acetaminophen (Acetaminophen 500 Mg Tablet) 1,000 mg PO X1 ONE Stop: 03/31/25 08:40 Diagnosis Differential Diagnosis ED Complaint MDM: Chronic leg pain
[2025-03-31] MEDS: ACETAMINOPHEN 500 MG TABLET 1000 MG PO (08:58)
== END 2025-03-31 09:12 | disposition home or self-care (01) ==
LOC: SERX 09:07
PROVIDERS: Emergency Provider Family Medicine; PCP Family Medicine
DX: M79.662 Pain in left lower leg (principal); M79.661 Pain in right lower leg; G89.29 Other chronic pain
CPT/HCPCS: 99282; A9270

== ENCOUNTER 2025-03-31 16:47 | Emergency (ER) | payer MEDICAID, SELFPAY ==
[2025-03-31 16:47] VITALS: PULSE 92; RESP 18; O2SAT 98
[2025-03-31 17:16] VITALS: BP 131/92; PULSE 85; RESP 18; TEMP 37.1; O2SAT 95
--- NOTE | 2025-03-31 17:29 | EDNOTE_ITS ---
<Statement entered by Annemarie Cortez MD - 04/03/25 07:25> As co-signing physician, I was present and available for consult prn. I concur with the plan and care as documented by the midlevel provider. ED General RME/HPI General Chief complaint: General Adult/Misc Complain Stated complaint: LEG PAIN Time Seen by Provider: 03/31/25 16:59 Source: patient Arrival date/time: 03/31/25 16:47 44-year-old male with a history of chronic leg pain presents to the emergency room with a chief complaint of bilateral leg pain. Mode of arrival: ambulatory Limitations: no limitations Related Data Previous Rx's ?Medication ?Instructions ?Recorded sulfamethoxazole 800 1 tab PO BID #14 tabs mg-trimethoprim 160 mg tablet (Bactrim DS) cyclobenzaprine 5 mg tablet 5 mg PO TID PRN muscle spa sm #30 07/23/23 tabs naproxen 500 mg tablet 500 mg PO BID PRN pain #30 t abs 07/23/23 naproxen 500 mg tablet 500 mg PO BID PRN pain #30 t abs 08/08/23 tamsulosin 0.4 mg capsule (Flomax) 0.4 mg PO QDAY #30 caps 08/08/23 baclofen 10 mg tablet 10 mg PO BID PRN muscle spas m #30 08/14/23 tabs naproxen 500 mg tablet 500 mg PO BID PRN pain #30 t abs 08/14/23 ibuprofen 800 mg tablet 800 mg PO TID PRN pain #30 t abs 08/28/23 ibuprofen 600 mg tablet 600 mg PO Q6H PRN pain #30 t abs 01/27/24 methocarbamol 500 mg tablet 1,000 mg (2 x 500 mg) PO Q 8H PRN 01/27/24 pain #30 tabs naproxen 500 mg tablet (Naprosyn) 500 mg PO BID #14 ta bs 03/15/24 ibuprofen 800 mg tablet 800 mg PO TID PRN pain #30 t abs 04/02/24 cyclobenzaprine 5 mg tablet 5 mg PO TID PRN muscle spa sm #14 04/07/24 tabs ibuprofen 600 mg tablet 600 mg PO Q6H PRN fever or p ain 04/07/24 #30 tabs ibuprofen 600 mg tablet 600 mg PO Q6H PRN pain #30 t abs 04/07/24 cyclobenzaprine 5 mg tablet 5 mg PO TID PRN muscle spa sm #30 04/11/24 tabs naproxen 500 mg tablet 500 mg PO BID PRN pain #30 t abs 04/11/24 ibuprofen 600 mg tablet 600 mg PO Q8H PRN pain #20 t abs 11/03/24 acetaminophen 500 mg capsule 500 mg PO Q6H PRN pain #3 0 caps 12/03/24 acetaminophen 500 mg capsule 500 mg PO Q6H PRN pain #3 0 caps 12/15/24 cyclobenzaprine 5 mg tablet 5 mg PO TID PRN muscle spa sm #15 12/20/24 tabs lidocaine 5 % topical patch 2 patch topical QDAY PRN p ain #30 12/20/24 (Lidoderm) ea Allergies Allergy/AdvReac Type Severity Reaction Status Date / Time No Known Allergies Allergy Verified 04/02/25 13:38 Review of Systems Review of Systems Systems Reviewed: All systems reviewed, normal except as documented Constitutional Constitutional: Reports system reviewed and no additional complaints, except as documented, Denies fatigue, Denies fever(s), Denies headache(s) and Denies weakness Eyes Eyes: Reports system reviewed and no additional complaints, except as documented, Denies blurry vision and Denies change in vision ENT Ears, Nose, Mouth, and Throat: Reports system reviewed and no additional complaints, except as documented, Denies otalgia, Denies headache(s), Denies nasal congestion, Denies throat swelling and Denies vertigo Cardiovascular Cardiovascular: Reports system reviewed and no additional complaints, except as documented, Denies chest pain, Denies dyspnea and Denies dyspnea on exertion Respiratory Respiratory: Reports system reviewed and no additional complaints, except as documented, Denies chest congestion, Denies cough, Denies dyspnea, Denies dyspnea on exertion and Denies wheezing Gastrointestinal Gastrointestinal: Reports system reviewed and no additional complaints, except as documented, Denies abdominal pain, Denies cramping, Denies nausea and Denies vomiting Genitourinary Genitourinary: Reports system reviewed and no additional complaints, except as documented, Denies dysuria and Denies hematuria Musculoskeletal Musculoskeletal: Reports system reviewed and no additional complaints, except as documented and Denies back pain Integumentary/Breasts Skin/Breast: Reports system reviewed and no additional complaints, except as documented and Denies wounds Neurologic Neurologic: Reports system reviewed and no additional complaints, except as documented, Denies confusion, Denies headache(s), Denies lack of coordination, Denies vertigo and Denies weakness Psychiatric Psychiatric: Reports system reviewed and no additional complaints, except as documented, Denies anxiety, Denies confusion, Denies depression, Denies paranoia, Denies suicidal ideation and Denies tactile hallucinations Endocrine Endocrine: Reports system reviewed and no additional complaints, except as documented and Denies fatigue Hematologic/Lymphatic Hematologic/Lymphatic: Reports system reviewed and no additional complaints, except as documented and Denies lymphadenopathy Allergic/Immunologic Allergic/Immunologic: Reports system reviewed and no additional complaints, except as documented, Denies throat swelling, Denies urticaria and Denies wheezing Past Medical History Past Medical History NEUROLOGIC: Positive Cerebrovascular Accident; Negative Neurological Disorders CARDIAC: Positive Myocardial Infarction and Hypercholesterolemia; Negative Cardiac Disorders or Congestive Heart Failure RESPIRATORY: Negative Chronic Obstructive Pulmonary Disease (COPD) GASTROINTESTINAL: Negative Gastrointestinal Disorders GENITOURINARY: Negative Genitourinary Disorders or Renal Disease MUSCULOSKELETAL: Negative Musculoskeletal Disorders ENDOCRINE: Negative Endocrine Disorders, Diabetes Mellitus Type 1 or Diabetes Mellitus Type 2 HEMATOLOGIC: Negative Blood Disorders OTHER HISTORY: Negative Autoimmune Disease or Clostridium Difficile Social History SMOKING STATUS: Light (< 1 pack/day) SUBSTANCE USE: methamphetamine ED Exam General Limitations: Present no limitations General appearance: Present alert and in no apparent distress Head Head exam: Present atraumatic Eye Eye exam: Present normal appearance, PERRL and EOMI ENT ENT exam: Present normal exam, normal oropharynx and mucous membranes moist Neck Neck exam: Present normal inspection, full ROM and trachea midline Chest Chest inspection: Present normal inspection and symmetric chest wall rise Respiratory Respiratory exam: Present normal lung sounds bilaterally Cardiovascular Cardiovascular exam: Present regular rate, normal rhythm and normal heart sounds Abdominal Exam Abdominal exam: Present soft and normal bowel sounds Extremities Exam Extremities exam: Present normal inspection and full ROM Back Exam Back exam: Present normal inspection and full ROM Neurological Exam Neurological exam: Present alert, oriented X3 and CN II-XII intact Psychiatric Psychiatric exam: Present normal affect and normal mood Skin Skin exam: Present warm, dry, intact and normal color Course Quality Measures none Orders Category Date Time Status Ketorolac Inj [Toradol Inj] Med 03/31/25 17:27 Discontinued 30 mg IM X1 ONE Vital Signs Vital signs: Vital Signs Temperature 98.8 F 03/31/25 17:16 Pulse Rate 85 03/31/25 17:16 Respiratory Rate 18 03/31/25 17:16 Blood Pressure 131/92 H 03/31/25 17:16 Pulse Oximetry (%) 95 03/31/25 17:16 Oxygen Delivery Method Room Air 03/31/25 17:16 Discharge Plan Plan Patient Disposition: HOME (Self Care) Discharge Disposition comment: Stable Prescriptions/Referrals Prescriptions/Med Rec: No Action naproxen 500 mg tablet 500 mg PO BID PRN (Reason: pain) Qty: 30 0RF cyclobenzaprine 5 mg tablet 5 mg PO TID PRN (Reason: muscle spasm) Qty: 30 0RF naproxen 500 mg tablet 500 mg PO BID PRN (Reason: pain) Qty: 30 0RF baclofen 10 mg tablet 10 mg PO BID PRN (Reason: muscle spasm) Qty: 30 0RF ibuprofen 800 mg tablet 800 mg PO TID PRN (Reason: pain) Qty: 30 0RF ibuprofen 800 mg tablet 800 mg PO TID PRN (Reason: pain) Qty: 30 0RF ibuprofen 600 mg tablet 600 mg PO Q6H PRN (Reason: pain) Qty: 30 0RF ibuprofen 600 mg tablet 600 mg PO Q8H PRN (Reason: pain) Qty: 20 0RF acetaminophen 500 mg capsule 500 mg PO Q6H PRN (Reason: pain) Qty: 30 0RF lidocaine [Lidoderm] 5 % adhesive patch,medicated 2 patch topical QDAY PRN (Reason: pain) Qty: 30 0RF Rx Instructions: leave on most painful area for up to 12 hrs cyclobenzaprine 5 mg tablet 5 mg PO TID PRN (Reason: muscle spasm) Qty: 15 0RF sulfamethoxazole-trimethoprim [Bactrim DS] 800-160 mg tablet 1 tab PO BID Qty: 14 0RF naproxen 500 mg tablet 500 mg PO BID PRN (Reason: pain) Qty: 30 0RF tamsulosin [Flomax] 0.4 mg capsule 0.4 mg PO QDAY Qty: 30 0RF ibuprofen 600 mg tablet 600 mg PO Q6H PRN (Reason: pain) Qty: 30 0RF methocarbamol 500 mg tablet 1,000 mg PO Q8H PRN (Reason: pain) Qty: 30 0RF naproxen [Naprosyn] 500 mg tablet 500 mg PO BID Qty: 14 0RF ibuprofen 600 mg tablet 600 mg PO Q6H PRN (Reason: fever or pain) Qty: 30 0RF cyclobenzaprine 5 mg tablet 5 mg PO TID PRN (Reason: muscle spasm) Qty: 14 0RF naproxen 500 mg tablet 500 mg PO BID PRN (Reason: pain) Qty: 30 0RF cyclobenzaprine 5 mg tablet 5 mg PO TID PRN (Reason: muscle spasm) Qty: 30 0RF acetaminophen 500 mg capsule 500 mg PO Q6H PRN (Reason: pain) Qty: 30 0RF Referrals: Lavell (PCP),MD Cody [Primary Care Provider] - In 1 week Problem List Clinical Impression: Chronic leg pain Patient/Caregiver Discharge Instructions Education Materials: ED Chronic Pain Additional Instructions: Please follow-up with your primary care provider in the next 24 to 48 hours. Medication was given to you For any evidence of worsening signs or symptoms return to the emergency room immediately Print Language: Croatian Stand Alone Forms: [employer] Award Info., Patient Portal Info Letter PA/SEISMIC PROSPECTING SUPERVISOR Supervising Physician PA/SEISMIC PROSPECTING SUPERVISOR Supervising Physician: Dr. Ramsey MDM Narrative MDM hospital course (for use when minimal MDM required): 44-year-old male with a history of chronic leg pain presents to the emergency room with a chief complaint of bilateral leg pain. Physical examination shows bilateral lower extremity pain. The patient is able to ambulate and denies any numbness. The patient also denies any loss of bowel or bladder function or any saddle anesthesia. Patient is a frequent flyer homeless man who has came in multiple visits for the same complaint. The patient has had multiple workups and have all been negative. Patient states he is here for pain medication. Patient was discharged and educated to follow-up with primary care provider in the next 24 to 48 hours and return to the emergency room for any evidence of worsening signs or symptoms Clinical Information Provided by: none Medical Records [facility] Meds/Rx considered, not ordered None Labs/Rad/Tests considered, not ordered None Chronic Illness/Social Conditions which may negatively complicate care or outcome(s)-explain: None or not a pplicable EKG EKG not done Labs Labs: none Imaging Imaging interpretation: none or see narrative above Medication Administration(s) none Medication Administration History Discontinued Medications Ketorolac Tromethamine (Ketorolac Inj 60 Mg/2 Ml Vial) 30 mg IM X1 ONE Stop: 03/31/25 17:28 Diagnosis Differential Diagnosis ED Complaint MDM: Chronic leg pain/acute leg pain Diagnoses ruled out and/or further discussions: Acute leg pain
--- NOTE | 2025-03-31 17:49 | PC.NURSE ---
no answer x 1 at 3450. checked outside and lobby.
--- NOTE | 2025-03-31 18:09 | PC.NURSE ---
no answer x 1 at 1800. checked outside and lobby.
--- NOTE | 2025-03-31 18:26 | PC.NURSE ---
no answer x 3 at 1845. checked outside and lobby. patient eloped. notified provider.
== END 2025-03-31 18:27 | disposition home or self-care (01) ==
PROVIDERS: Emergency Provider Family Medicine; PCP Family Medicine
DX: M79.604 Pain in right leg (principal); M79.605 Pain in left leg; G89.29 Other chronic pain
CPT/HCPCS: 99281

== ENCOUNTER 2025-03-31 20:46 | Emergency (ER) | payer MEDICAID, SELFPAY ==
[2025-03-31 20:48] VITALS: PULSE 88; O2SAT 97; BMI 28.8
[2025-03-31 21:00] VITALS: BP 145/95; PULSE 84; RESP 17; TEMP 36.8; O2SAT 97
--- NOTE | 2025-03-31 21:17 | PD.EDEXREM ---
ED Extremity Problem RME/HPI General Chief complaint: Extremity Problem,Nontraumatic Stated complaint: LEG PAIN Time Seen by Provider: 03/31/25 20:54 Arrival date/time: 03/31/25 20:46 44-year-old male homeless with methamphetamine abuse presents the emergency room today for complaints of bilateral leg pain patient comes to the ER multiple times for the same patient reports no fever nausea vomiting. Patient reports he would like some food and something to drink Limitations: no limitations Related Data Previous Rx's ?Medication ?Instructions ?Recorded sulfamethoxazole 800 1 tab PO BID #14 tabs 03/09/23 mg-trimethoprim 160 mg tablet (Bactrim DS) cyclobenzaprine 5 mg tablet 5 mg PO TID PRN muscle spasm #30 07/23/23 tabs naproxen 500 mg tablet 500 mg PO BID PRN pain #30 tabs 07/23/23 naproxen 500 mg tablet 500 mg PO BID PRN pain #30 tabs 08/08/23 tamsulosin 0.4 mg capsule (Flomax) 0.4 mg PO QDAY #30 caps 08/08/23 baclofen 10 mg tablet 10 mg PO BID PRN muscle spasm #30 08/14/23 tabs naproxen 500 mg tablet 500 mg PO BID PRN pain #30 tabs 08/14/23 ibuprofen 800 mg tablet 800 mg PO TID PRN pain #30 tabs 08/28/23 ibuprofen 600 mg tablet 600 mg PO Q6H PRN pain #30 tabs 01/27/24 methocarbamol 500 mg tablet 1,000 mg (2 x 500 mg) PO Q8H PRN 01/27/24 pain #30 tabs naproxen 500 mg tablet (Naprosyn) 500 mg PO BID #14 tabs 03/15/24 ibuprofen 800 mg tablet 800 mg PO TID PRN pain #30 tabs 04/02/24 cyclobenzaprine 5 mg tablet 5 mg PO TID PRN muscle spasm #14 04/07/24 tabs ibuprofen 600 mg tablet 600 mg PO Q6H PRN fever or pain 04/07/24 #30 tabs ibuprofen 600 mg tablet 600 mg PO Q6H PRN pain #30 tabs 04/07/24 cyclobenzaprine 5 mg tablet 5 mg PO TID PRN muscle spasm #30 04/11/24 tabs naproxen 500 mg tablet 500 mg PO BID PRN pain #30 tabs 04/11/24 ibuprofen 600 mg tablet 600 mg PO Q8H PRN pain #20 tabs 11/03/24 acetaminophen 500 mg capsule 500 mg PO Q6H PRN pain #30 caps 12/03/24 acetaminophen 500 mg capsule 500 mg PO Q6H PRN pain #30 caps 12/15/24 cyclobenzaprine 5 mg tablet 5 mg PO TID PRN muscle spasm #15 12/20/24 tabs lidocaine 5 % topical patch 2 patch topical QDAY PRN pain #30 12/20/24 (Lidoderm) ea Allergies Allergy/AdvReac Type Severity Reaction Status Date / Time No Known Allergies Allergy Verified 04/01/25 09:26 Review of Systems Review of Systems Systems Reviewed: All systems reviewed, normal except as documented Constitutional Constitutional: Reports system reviewed and no additional complaints, except as documented, Denies fever(s) and Denies headache(s) Eyes Eyes: Reports system reviewed and no additional complaints, except as documented and Denies blurry vision ENT Ears, Nose, Mouth, and Throat: Reports system reviewed and no additional complaints, except as documented, Denies headache(s), Reports nasal congestion and Reports nasal discharge Cardiovascular Cardiovascular: Reports system reviewed and no additional complaints, except as documented, Denies chest pain and Denies dyspnea Respiratory Respiratory: Reports system reviewed and no additional complaints, except as documented, Denies chest congestion, Denies cough and Denies dyspnea Gastrointestinal Gastrointestinal: Reports system reviewed and no additional complaints, except as documented and Denies abdominal pain Integumentary/Breasts Skin/Breast: Reports system reviewed and no additional complaints, except as documented and Denies rash Neurologic Neurologic: Reports system reviewed and no additional complaints, except as documented, Reports as per HPI and Denies headache(s) Past Medical History Past Medical History NEUROLOGIC: Positive Cerebrovascular Accident; Negative Neurological Disorders CARDIAC: Positive Myocardial Infarction and Hypercholesterolemia; Negative Cardiac Disorders or Congestive Heart Failure RESPIRATORY: Negative Chronic Obstructive Pulmonary Disease (COPD) GASTROINTESTINAL: Negative Gastrointestinal Disorders GENITOURINARY: Negative Genitourinary Disorders or Renal Disease MUSCULOSKELETAL: Negative Musculoskeletal Disorders ENDOCRINE: Negative Endocrine Disorders, Diabetes Mellitus Type 1 or Diabetes Mellitus Type 2 HEMATOLOGIC: Negative Blood Disorders OTHER HISTORY: Negative Autoimmune Disease or Clostridium Difficile Social History SMOKING STATUS: Current every day smoker SUBSTANCE USE: methamphetamine ED Exam General Limitations: Present no limitations General appearance: Present alert and in no apparent distress Head Head exam: Present atraumatic Eye Eye exam: Present normal appearance, PERRL and EOMI; Absent conjunctival injection ENT ENT exam: Present normal exam, normal oropharynx and mucous membranes moist Neck Neck exam: Present normal inspection, full ROM and trachea midline Chest Chest inspection: Present normal inspection and symmetric chest wall rise Respiratory Respiratory exam: Present normal lung sounds bilaterally; Absent respiratory distress Cardiovascular Cardiovascular exam: Present regular rate, normal rhythm and normal heart sounds Abdominal Exam Abdominal exam: Present soft and normal bowel sounds; Absent distention, tenderness, guarding, rebound or rigidity Extremities Exam Extremities exam: Present normal inspection and full ROM Back Exam Back exam: Present normal inspection and full ROM Neurological Exam Neurological exam: Present alert, oriented X3, CN II-XII intact, normal gait and reflexes normal; Absent motor sensory deficit Psychiatric Psychiatric exam: Present normal affect and normal mood Skin Skin exam: Present warm, dry, intact and normal color; Absent rash Course Quality Measures none Orders Category Date Time Status Ibuprofen Tab [Motrin Tab] Med 03/31/25 21:16 Discontinued 800 mg PO X1 ONE Vital Signs Vital signs: Vital Signs Temperature 98.2 F 03/31/25 21:00 Pulse Rate 84 03/31/25 21:00 Respiratory Rate 17 03/31/25 21:00 Blood Pressure 145/95 H 03/31/25 21:00 Pulse Oximetry (%) 97 03/31/25 21:00 Oxygen Delivery Method Room Air 03/31/25 21:00 O2 saturation 97% on room air within normal limits Extremity Problem MDM Narrative MDM Narrative:: 44-year-old male homeless with methamphetamine abuse presents the emergency room today for complaints of bilateral leg pain patient comes to the ER multiple times for the same patient reports no fever nausea vomiting. Patient reports he would like some food and something to drink On exam patient does not appear ill or toxic in no acute distress Patient discharged home in no distress to follow-up with primary care doctor in the next 24 to 48 hours and for any worsening symptoms to return to the ER immediately Patient data External records reviewed:: [facility] previous records Clinical information provided by:: patient Social determinants that could affect healthcare access:: substance use Patient has the following chronic illnesses:: Substance abuse, homelessness How is presenting disease/condition affected by chronic disease/condition?: exacerbated by Evaluation data The following diagnostics were reviewed and interpreted by me:: other (specify) (N/A) Lab and/or radiology exams considered but not ordered:: Consider not ordered Interpretation Summary: N/A Medications / Prescriptions Medications or Prescriptions considered but not ordered:: Given Medication administrations:: Medication Administration History Discontinued Medications Ibuprofen (Ibuprofen Tab 400 Mg Tablet) 800 mg PO X1 ONE Stop: 03/31/25 21:17 Last Admin: 03/31/25 21:23 Dose: 800 mg Documented By: DB Given Consultations Consultation(s) initiated? (list below): No Diagnosis Extremity Problem Differential Diagnosis: other (Homelessness, methamphetamine use) Most likely diagnosis given after review of the tests above:: Homelessness, methamphetamine use Admission Indicated Admission indicated?: not indicated Admission Request Was there a request for admission?: No Disposition Plan Disposition Plan: Discharge Discharge Attestation Discharge Attestation: The patient and all family members were given an opportunity to ask questions and understood the discharge instructions. Discharge instructions specifically effects, indications for sooner follow up or return to the emergency department, and the expected course of current diagnosis. Patient condition: Stable Discharge Plan Plan Patient Disposition: HOME (Self Care) Discharge Disposition comment: Stable Prescriptions/Referrals Prescriptions/Med Rec: No Action naproxen 500 mg tablet 500 mg PO BID PRN (Reason: pain) Qty: 30 0RF cyclobenzaprine 5 mg tablet 5 mg PO TID PRN (Reason: muscle spasm) Qty: 30 0RF naproxen 500 mg tablet 500 mg PO BID PRN (Reason: pain) Qty: 30 0RF baclofen 10 mg tablet 10 mg PO BID PRN (Reason: muscle spasm) Qty: 30 0RF ibuprofen 800 mg tablet 800 mg PO TID PRN (Reason: pain) Qty: 30 0RF ibuprofen 800 mg tablet 800 mg PO TID PRN (Reason: pain) Qty: 30 0RF ibuprofen 600 mg tablet 600 mg PO Q6H PRN (Reason: pain) Qty: 30 0RF ibuprofen 600 mg tablet 600 mg PO Q8H PRN (Reason: pain) Qty: 20 0RF acetaminophen 500 mg capsule 500 mg PO Q6H PRN (Reason: pain) Qty: 30 0RF lidocaine [Lidoderm] 5 % adhesive patch,medicated 2 patch topical QDAY PRN (Reason: pain) Qty: 30 0RF Rx Instructions: leave on most painful area for up to 12 hrs cyclobenzaprine 5 mg tablet 5 mg PO TID PRN (Reason: muscle spasm) Qty: 15 0RF sulfamethoxazole-trimethoprim [Bactrim DS] 800-160 mg tablet 1 tab PO BID Qty: 14 0RF naproxen 500 mg tablet 500 mg PO BID PRN (Reason: pain) Qty: 30 0RF tamsulosin [Flomax] 0.4 mg capsule 0.4 mg PO QDAY Qty: 30 0RF ibuprofen 600 mg tablet 600 mg PO Q6H PRN (Reason: pain) Qty: 30 0RF methocarbamol 500 mg tablet 1,000 mg PO Q8H PRN (Reason: pain) Qty: 30 0RF naproxen [Naprosyn] 500 mg tablet 500 mg PO BID Qty: 14 0RF ibuprofen 600 mg tablet 600 mg PO Q6H PRN (Reason: fever or pain) Qty: 30 0RF cyclobenzaprine 5 mg tablet 5 mg PO TID PRN (Reason: muscle spasm) Qty: 14 0RF naproxen 500 mg tablet 500 mg PO BID PRN (Reason: pain) Qty: 30 0RF cyclobenzaprine 5 mg tablet 5 mg PO TID PRN (Reason: muscle spasm) Qty: 30 0RF acetaminophen 500 mg capsule 500 mg PO Q6H PRN (Reason: pain) Qty: 30 0RF Referrals: Lavell (PCP),MD Cody [Physician] - In 1 week Problem List Clinical Impression: Leg pain, Homeless Patient/Caregiver Discharge Instructions Education Materials: RICE Additional Instructions: Please follow up with your primary care doctor in the next 24-48hrs for any worsening symptoms return here immediately Print Language: Nigerien Stand Alone Forms: Tami Award Info., Patient Portal Info Letter PA/DIRECTOR CORPORATE COMMUNICATIONS Supervising Physician PA/DIRECTOR CORPORATE COMMUNICATIONS Supervising Physician: Dr. zimmerman
[2025-03-31] MEDS: IBUPROFEN TAB 400 MG TABLET 800 MG PO (21:23)
== END 2025-03-31 21:29 | disposition home or self-care (01) ==
PROVIDERS: Emergency Provider Emergency Medicine; PCP Family Medicine
DX: M79.605 Pain in left leg (principal); M79.604 Pain in right leg; Z59.00 Homelessness unspecified
CPT/HCPCS: 99281; A9270

== ENCOUNTER 2025-04-01 09:24 | Emergency (ER) | payer MEDICAID, SELFPAY ==
[2025-04-01 09:55] VITALS: BP 126/86; PULSE 72; RESP 18; TEMP 36.7; O2SAT 98; BMI 28.8
--- NOTE | 2025-04-01 10:14 | EDNOTE_ITS ---
<Statement entered by Annemarie Cortez MD - 04/15/25 06:08> As co-signing physician, I was present and available for consult prn. I concur with the plan and care as documented by the midlevel provider. ED General RME/HPI General Chief complaint: General Adult/Misc Complain Stated complaint: B/L LEG PAIN Time Seen by Provider: 04/01/25 09:29 Arrival date/time: 04/01/25 09:24 This is a 44-year-old male that comes in with complaints of bilateral leg pain. Patient states he fell yesterday. Patient has small abrasions to bilateral knees. No open lacerations. Patient denies any other injuries. Pt homeless and has a hx of meth abuse Related Data Previous Rx's ?Medication ?Instructions ?Recorded sulfamethoxazole 800 1 tab PO BID #14 tabs mg-trimethoprim 160 mg tablet (Bactrim DS) cyclobenzaprine 5 mg tablet 5 mg PO TID PRN muscle spa sm #30 07/23/23 tabs naproxen 500 mg tablet 500 mg PO BID PRN pain #30 t abs 07/23/23 naproxen 500 mg tablet 500 mg PO BID PRN pain #30 t abs 08/08/23 tamsulosin 0.4 mg capsule (Flomax) 0.4 mg PO QDAY #30 caps 08/08/23 baclofen 10 mg tablet 10 mg PO BID PRN muscle spas m #30 08/14/23 tabs naproxen 500 mg tablet 500 mg PO BID PRN pain #30 t abs 08/14/23 ibuprofen 800 mg tablet 800 mg PO TID PRN pain #30 t abs 08/28/23 ibuprofen 600 mg tablet 600 mg PO Q6H PRN pain #30 t abs 01/27/24 methocarbamol 500 mg tablet 1,000 mg (2 x 500 mg) PO Q 8H PRN 01/27/24 pain #30 tabs naproxen 500 mg tablet (Naprosyn) 500 mg PO BID #14 ta bs 03/15/24 ibuprofen 800 mg tablet 800 mg PO TID PRN pain #30 t abs 04/02/24 cyclobenzaprine 5 mg tablet 5 mg PO TID PRN muscle spa sm #14 04/07/24 tabs ibuprofen 600 mg tablet 600 mg PO Q6H PRN fever or p ain 04/07/24 #30 tabs ibuprofen 600 mg tablet 600 mg PO Q6H PRN pain #30 t abs 04/07/24 cyclobenzaprine 5 mg tablet 5 mg PO TID PRN muscle spa sm #30 04/11/24 tabs naproxen 500 mg tablet 500 mg PO BID PRN pain #30 t abs 04/11/24 ibuprofen 600 mg tablet 600 mg PO Q8H PRN pain #20 t abs 11/03/24 acetaminophen 500 mg capsule 500 mg PO Q6H PRN pain #3 0 caps 12/03/24 acetaminophen 500 mg capsule 500 mg PO Q6H PRN pain #3 0 caps 12/15/24 cyclobenzaprine 5 mg tablet 5 mg PO TID PRN muscle spa sm #15 12/20/24 tabs lidocaine 5 % topical patch 2 patch topical QDAY PRN p ain #30 12/20/24 (Lidoderm) ea naproxen 500 mg tablet 500 mg PO BID PRN pain #14 t abs 04/04/25 Allergies Allergy/AdvReac Type Severity Reaction Status Date / Time No Known Allergies Allergy Verified 04/11/25 09:46 Review of Systems Review of Systems Systems Reviewed: All systems reviewed, normal except as documented Past Medical History Past Medical History NEUROLOGIC: Positive Cerebrovascular Accident; Negative Neurological Disorders CARDIAC: Positive Myocardial Infarction and Hypercholesterolemia; Negative Cardiac Disorders or Congestive Heart Failure RESPIRATORY: Negative Chronic Obstructive Pulmonary Disease (COPD) GASTROINTESTINAL: Negative Gastrointestinal Disorders GENITOURINARY: Negative Genitourinary Disorders or Renal Disease MUSCULOSKELETAL: Negative Musculoskeletal Disorders ENDOCRINE: Negative Endocrine Disorders, Diabetes Mellitus Type 1 or Diabetes Mellitus Type 2 HEMATOLOGIC: Negative Blood Disorders OTHER HISTORY: Negative Autoimmune Disease or Clostridium Difficile Social History SMOKING STATUS: Light (< 1 pack/day) SUBSTANCE USE: methamphetamine ED Exam Narrative Physical exam: VITAL SIGNS: Reviewed. GENERAL APPEARANCE: Alert and interactive, follows commands, no acute distress HEAD AND FACE: Non-traumatic. ENT: PERRL, pink conjunctivitis, eyelid no trauma, Mucous membrane moist. NECK: Supple, nontender, no nuchal rigidity. CHEST: No tenderness, no crepitus, no paradoxical movement, no retractions. LUNGS: breathign even and unlabored, well ventilated, symmetric HEART: Regular rate, cap refill ABDOMEN: Soft, nondistended NEUROLOGICAL: Gross motor function intact sensory function intact, Appropriate for age. MUSCULOSKELETAL: low back nontender, full range of motion. EXTREMITIES: No redness no swelling no skin breakdown on bilateral foot and leg. Distal neurovascular status intact bilateral foot SKIN: Color pink, dry, mild abrasions to knees bilaterally. Course Quality Measures none Orders Category Date Time Status Acetaminophen Tab [Tylenol ES Tab] Med 04/01/25 10:13 Discontinued 1,000 mg PO X1 ONE Ibuprofen Tab [Motrin Tab] Med 04/01/25 10:13 Discontinued 800 mg PO X1 ONE Vital Signs Vital signs: Vital Signs Temperature 98.0 F 04/01/25 09:55 Pulse Rate 72 04/01/25 09:55 Respiratory Rate 18 04/01/25 09:55 Blood Pressure 126/86 H 04/01/25 09:55 Pulse Oximetry (%) 98 04/01/25 09:55 Oxygen Delivery Method Room Air 04/01/25 09:55 Discharge Plan Plan Patient Disposition: Elopement Prescriptions/Referrals Prescriptions/Med Rec: No Action naproxen 500 mg tablet 500 mg PO BID PRN (Reason: pain) Qty: 30 0RF cyclobenzaprine 5 mg tablet 5 mg PO TID PRN (Reason: muscle spasm) Qty: 30 0RF naproxen 500 mg tablet 500 mg PO BID PRN (Reason: pain) Qty: 30 0RF baclofen 10 mg tablet 10 mg PO BID PRN (Reason: muscle spasm) Qty: 30 0RF ibuprofen 800 mg tablet 800 mg PO TID PRN (Reason: pain) Qty: 30 0RF ibuprofen 800 mg tablet 800 mg PO TID PRN (Reason: pain) Qty: 30 0RF ibuprofen 600 mg tablet 600 mg PO Q6H PRN (Reason: pain) Qty: 30 0RF ibuprofen 600 mg tablet 600 mg PO Q8H PRN (Reason: pain) Qty: 20 0RF acetaminophen 500 mg capsule 500 mg PO Q6H PRN (Reason: pain) Qty: 30 0RF lidocaine [Lidoderm] 5 % adhesive patch,medicated 2 patch topical QDAY PRN (Reason: pain) Qty: 30 0RF Rx Instructions: leave on most painful area for up to 12 hrs cyclobenzaprine 5 mg tablet 5 mg PO TID PRN (Reason: muscle spasm) Qty: 15 0RF naproxen 500 mg tablet 500 mg PO BID PRN (Reason: pain) Qty: 14 0RF sulfamethoxazole-trimethoprim [Bactrim DS] 800-160 mg tablet 1 tab PO BID Qty: 14 0RF naproxen 500 mg tablet 500 mg PO BID PRN (Reason: pain) Qty: 30 0RF tamsulosin [Flomax] 0.4 mg capsule 0.4 mg PO QDAY Qty: 30 0RF ibuprofen 600 mg tablet 600 mg PO Q6H PRN (Reason: pain) Qty: 30 0RF methocarbamol 500 mg tablet 1,000 mg PO Q8H PRN (Reason: pain) Qty: 30 0RF naproxen [Naprosyn] 500 mg tablet 500 mg PO BID Qty: 14 0RF ibuprofen 600 mg tablet 600 mg PO Q6H PRN (Reason: fever or pain) Qty: 30 0RF cyclobenzaprine 5 mg tablet 5 mg PO TID PRN (Reason: muscle spasm) Qty: 14 0RF naproxen 500 mg tablet 500 mg PO BID PRN (Reason: pain) Qty: 30 0RF cyclobenzaprine 5 mg tablet 5 mg PO TID PRN (Reason: muscle spasm) Qty: 30 0RF acetaminophen 500 mg capsule 500 mg PO Q6H PRN (Reason: pain) Qty: 30 0RF Referrals: Cody Monte MD ([place]) [Primary Care Provider] - In 1 week Problem List Clinical Impression: Chronic knee pain Patient/Caregiver Discharge Instructions Education Materials: Understanding Chronic Pain Print Language: Korean PA/UNDERWRITING ACCOUNT REPRESENTATIVE Supervising Physician PA/UNDERWRITING ACCOUNT REPRESENTATIVE Supervising Physician: china QUINTANILLA Clinical Information Provided by: patient Medical Records reviewed [facility] Meds/Rx considered, not ordered None Labs/Rad/Tests considered, not ordered None Chronic Illness/Social Conditions which may negatively complicate care or outcome(s)-explain: Homeless EKG EKG not done Labs Labs: none Imaging Imaging interpretation: other (pt didnt have x ray of knee done ) Medication Administration(s) Medication Administration History Discontinued Medications Acetaminophen (Acetaminophen 500 Mg Tablet) 1,000 mg PO X1 ONE Stop: 04/01/25 10:14 Last Admin: 04/01/25 10:28 Dose: 1,000 mg Documented By: OA Ibuprofen (Ibuprofen Tab 400 Mg Tablet) 800 mg PO X1 ONE Stop: 04/01/25 10:14 Last Admin: 04/01/25 10:28 Dose: 800 mg Documented By: OA see mar Diagnosis Differential Diagnosis ED Complaint MDM: chronic knee pain, home less, knee fracture
[2025-04-01] MEDS: IBUPROFEN TAB 400 MG TABLET 800 MG PO (10:28)
[2025-04-01] MEDS: ACETAMINOPHEN 500 MG TABLET 1000 MG PO (10:28)
--- NOTE | 2025-04-01 13:40 | PC.NURSE ---
patient eloped from ed, he was called 3 times five minutes apart
== END 2025-04-01 13:41 | disposition left against medical advice (07) ==
LOC: SERX 10:19
PROVIDERS: Emergency Provider Emergency Medicine; PCP Family Medicine
DX: S80.212A Abrasion, left knee, initial encounter (principal); S80.211A Abrasion, right knee, initial encounter; W19.XXXA Unspecified fall, initial encounter; Z59.00 Homelessness unspecified; Z53.29 Procedure and treatment not carried out because of patient's decision for other reasons
CPT/HCPCS: 99281; A9270

== ENCOUNTER 2025-04-02 13:36 | Emergency (ER) | payer MEDICAID, SELFPAY ==
--- NOTE | 2025-04-02 13:40 | PD.EDRME ---
Rapid Medical Screening Exam RME Arrival date/time: 04/02/25 13:36 44-year-old male presents to the Emergency Department today for complaints of bilateral lower extremity pain patient has had multiple visit for the same Chief Complaint: Extremity Injury, Lower
[2025-04-02 14:05] LABS: Basophils # (Auto) 0.1 Thou/mm3 (0.0-0.2); Basophils % (Auto) 1 % (0-2.5); Eosinophils # (Auto) 0.4 Thou/mm3 (0.0-0.5); Eosinophils % (Auto) 6 % (0-10); Hematocrit 40.2 % (41.0-53.0); Hemoglobin 13.7 g/dL (13.5-16.0); Immature Granulocytes % (Auto) 0 % (0-0); Immature Granulocytes Auto 0.02 Thou/mm3 (0.00-0.00); Lymphocytes # (Auto) 0.9 Thou/mm3 (1.0-4.8); Lymphocytes % (Auto) 14 % (10-50); Mean Corpuscular HGB Conc 34.1 g/dl (31.0-37.0); Mean Corpuscular Hemoglobin 30.4 pg (25.0-35.0); Mean Corpuscular Volume 89 fL (80-100); Monocytes # (Auto) 0.4 Thou/mm3 (0.0-0.8); Monocytes % (Auto) 7 % (0-12); Neutrophils # (Auto) 4.6 Thou/mm3 (1.8-7.7); Neutrophils % (Auto) 72 % (37-80); Nucleated Red Blood Cell % 0 /100 WBC (0); Platelet Count 224 Thou/mm3 (140-440); RDW Standard Deviation 42.1 fL (35.1-43.9); White Blood Count 6.4 Thou/mm3 (3.8-10.6)
[2025-04-02 14:07] VITALS: BP 128/85; PULSE 81; RESP 18; TEMP 36.8; O2SAT 99
[2025-04-02 14:23] LABS: Alanine Aminotransferase 20 U/L (10-49); Albumin, Serum 4.2 gm/dL (3.5-5.0); Albumin/Globulin Ratio 1.5 (1.2-2.2); Alkaline Phosphatase 68 U/L (46-116); Anion Gap 10 (7-16); Aspartate Amino Transferase 18 U/L (0-34); BUN/Creatinine Ratio 14 Ratio (12-20); Bilirubin,Total 0.7 mg/dL (0.3-1.2); Blood Urea Nitrogen 13 mg/dL (9-23); Calcium 8.5 mg/dL (8.3-10.6); Calcium (Corrected) 8.5 mg/dL (8.5-10.1); Chloride 109 mMol/L (98-107); Creatinine (Component) 0.9 mg/dL (0.6-1.3); Globulin 2.8 gm/dL (2.3-3.5); Glucose 113 mg/dL (74-106); Osmolality,Calculated 289 (275-295); Potassium 3.8 mMol/L (3.4-5.1); Sodium 145 mMol/L (136-145); eGFR > 60 See Note
[2025-04-02 16:30] LABS: Collection Type, Urine Clean Catch
[2025-04-02 16:36] LABS: Bacteria,Urine Rare; Bilirubin,Urine Negative (Negative); Blood,Urine Negative (Negative); Clarity,Urine Clear (Clear/Hazy); Color,Urine Yellow (Lt Yel-Yel); Culture Indicated,Urine Not Indicated; Glucose, Urine Negative (Negative); Ketones,Urine Trace (Negative); Leukocyte Esterase,Urine Negative (Negative); Nitrite,Urine Negative (Negative); PH,Urine 5.5 (5.0-7.0); Protein,Urine 1+ (Neg - Trace); RBC,Urine 2 /hpf (0-3); Specific Gravity,Urine 1.035 (1.001-1.035); Squamous Epithelial Cell,Urine 1 /hpf (0-5); WBC,Urine 1 /hpf (0-5)
[2025-04-02 16:44] LABS: Amphetamine/Methamp Scrn,U Negative (Negative); Barbiturate Screen,Urine Negative (Negative); Benzodiazepines Screen,Urine Negative (Negative); Benzoylecgonine Screen, Ur Negative (Negative); Fentanyl Screen,Urine Negative (Negative); Opiate Screen,Urine Negative (Negative); THC Screen,Urine Negative (Negative)
== END 2025-04-02 16:33 | disposition left against medical advice (07) ==
LOC: SERX 14:45
PROVIDERS: Nurse Practitioner Primary Care; Emergency Provider Emergency Medicine; PCP Family Medicine
DX: M79.605 Pain in left leg (principal); M79.604 Pain in right leg; Z53.29 Procedure and treatment not carried out because of patient's decision for other reasons
CPT/HCPCS: 36415; 80053; 80307; 81001; 85025; 99281

== ENCOUNTER 2025-04-03 07:36 | Emergency (ER) | payer MEDICAID, SELFPAY ==
[2025-04-03 07:36] VITALS: BMI 24.3
[2025-04-03 07:48] VITALS: BP 107/77; PULSE 76; RESP 18; TEMP 36.8; O2SAT 96
--- NOTE | 2025-04-03 08:02 | EDNOTE_ITS ---
<Statement entered by Annemarie Cortez MD - 04/03/25 08:39> As co-signing physician, I was present and available for consult prn. I concur with the plan and care as documented by the midlevel provider. ED Extremity Problem RME/HPI General Chief complaint: Extremity Problem,Nontraumatic Stated complaint: BILAT LEG PAIN Time Seen by Provider: 04/03/25 07:47 Source: patient Arrival date/time: 04/03/25 07:36 44-year-old male with a history of substance abuse, chronic leg pain, homelessness presents to the emergency room with a chief complaint of bilateral lower extremity pain x 1 year Mode of arrival: ambulatory Limitations: no limitations Related Data Previous Rx's ?Medication ?Instructions ?Recorded sulfamethoxazole 800 1 tab PO BID #14 tabs mg-trimethoprim 160 mg tablet (Bactrim DS) cyclobenzaprine 5 mg tablet 5 mg PO TID PRN muscle spa sm #30 07/23/23 tabs naproxen 500 mg tablet 500 mg PO BID PRN pain #30 t abs 07/23/23 naproxen 500 mg tablet 500 mg PO BID PRN pain #30 t abs 08/08/23 tamsulosin 0.4 mg capsule (Flomax) 0.4 mg PO QDAY #30 caps 08/08/23 baclofen 10 mg tablet 10 mg PO BID PRN muscle spas m #30 08/14/23 tabs naproxen 500 mg tablet 500 mg PO BID PRN pain #30 t abs 08/14/23 ibuprofen 800 mg tablet 800 mg PO TID PRN pain #30 t abs 08/28/23 ibuprofen 600 mg tablet 600 mg PO Q6H PRN pain #30 t abs 01/27/24 methocarbamol 500 mg tablet 1,000 mg (2 x 500 mg) PO Q 8H PRN 01/27/24 pain #30 tabs naproxen 500 mg tablet (Naprosyn) 500 mg PO BID #14 ta bs 03/15/24 ibuprofen 800 mg tablet 800 mg PO TID PRN pain #30 t abs 04/02/24 cyclobenzaprine 5 mg tablet 5 mg PO TID PRN muscle spa sm #14 04/07/24 tabs ibuprofen 600 mg tablet 600 mg PO Q6H PRN fever or p ain 04/07/24 #30 tabs ibuprofen 600 mg tablet 600 mg PO Q6H PRN pain #30 t abs 04/07/24 cyclobenzaprine 5 mg tablet 5 mg PO TID PRN muscle spa sm #30 04/11/24 tabs naproxen 500 mg tablet 500 mg PO BID PRN pain #30 t abs 04/11/24 ibuprofen 600 mg tablet 600 mg PO Q8H PRN pain #20 t abs 11/03/24 acetaminophen 500 mg capsule 500 mg PO Q6H PRN pain #3 0 caps 12/03/24 acetaminophen 500 mg capsule 500 mg PO Q6H PRN pain #3 0 caps 12/15/24 cyclobenzaprine 5 mg tablet 5 mg PO TID PRN muscle spa sm #15 12/20/24 tabs lidocaine 5 % topical patch 2 patch topical QDAY PRN p ain #30 12/20/24 (Lidoderm) ea Allergies Allergy/AdvReac Type Severity Reaction Status Date / Time No Known Allergies Allergy Verified 04/03/25 07:40 Review of Systems Review of Systems Systems Reviewed: All systems reviewed, normal except as documented Constitutional Constitutional: Reports system reviewed and no additional complaints, except as documented, Denies fatigue, Denies fever(s), Denies headache(s) and Denies weakness Eyes Eyes: Reports system reviewed and no additional complaints, except as documented, Denies blurry vision and Denies change in vision ENT Ears, Nose, Mouth, and Throat: Reports system reviewed and no additional complaints, except as documented, Denies otalgia, Denies headache(s), Denies nasal congestion, Denies throat swelling and Denies vertigo Cardiovascular Cardiovascular: Reports system reviewed and no additional complaints, except as documented, Denies chest pain, Denies dyspnea and Denies dyspnea on exertion Respiratory Respiratory: Reports system reviewed and no additional complaints, except as documented, Denies chest congestion, Denies cough, Denies dyspnea, Denies dyspnea on exertion and Denies wheezing Gastrointestinal Gastrointestinal: Reports system reviewed and no additional complaints, except as documented, Denies abdominal pain, Denies cramping, Denies nausea and Denies vomiting Genitourinary Genitourinary: Reports system reviewed and no additional complaints, except as documented, Denies dysuria and Denies hematuria Musculoskeletal Musculoskeletal: Reports system reviewed and no additional complaints, except as documented, Reports arthralgias and Denies back pain Integumentary/Breasts Skin/Breast: Reports system reviewed and no additional complaints, except as documented and Denies wounds Neurologic Neurologic: Reports system reviewed and no additional complaints, except as documented, Denies confusion, Denies headache(s), Denies lack of coordination, Denies vertigo and Denies weakness Psychiatric Psychiatric: Reports system reviewed and no additional complaints, except as documented, Denies anxiety, Denies confusion, Denies depression, Denies para noia, Denies suicidal ideation and Denies tactile hallucinations Endocrine Endocrine: Reports system reviewed and no additional complaints, except as d ocumented and Denies fatigue Hematologic/Lymphatic Hematologic/Lymphatic: Reports system reviewed and no additional complaints, except as documented and Denies lymphadenopathy Allergic/Immunologic Allergic/Immunologic: Reports system reviewed and no additional complaints, except as documented, Denies throat swelling, Denies urticaria and Denies wheezing Past Medical History Past Medical History NEUROLOGIC: Positive Cerebrovascular Accident; Negative Neurological Disorders CARDIAC: Positive Myocardial Infarction and Hypercholesterolemia; Negative Cardiac Disorders or Congestive Heart Failure RESPIRATORY: Negative Chronic Obstructive Pulmonary Disease (COPD) GASTROINTESTINAL: Negative Gastrointestinal Disorders GENITOURINARY: Negative Genitourinary Disorders or Renal Disease MUSCULOSKELETAL: Negative Musculoskeletal Disorders ENDOCRINE: Negative Endocrine Disorders, Diabetes Mellitus Type 1 or Diabetes Mellitus Type 2 HEMATOLOGIC: Negative Blood Disorders OTHER HISTORY: Negative Autoimmune Disease or Clostridium Difficile Social History SMOKING STATUS: Current some day smoker SUBSTANCE USE: methamphetamine ED Exam General Limitations: Present no limitations General appearance: Present alert and in no apparent distress Head Head exam: Present atraumatic Eye Eye exam: Present normal appearance, PERRL and EOMI ENT ENT exam: Present normal exam, normal oropharynx and mucous membranes moist Neck Neck exam: Present normal inspection, full ROM and trachea midline Chest Chest inspection: Present normal inspection and symmetric chest wall rise Respiratory Respiratory exam: Present normal lung sounds bilaterally Cardiovascular Cardiovascular exam: Present regular rate, normal rhythm and normal heart sounds Abdominal Exam Abdominal exam: Present soft and normal bowel sounds Extremities Exam Extremities exam: Present normal inspection and full ROM Back Exam Back exam: Present normal inspection and full ROM Neurological Exam Neurological exam: Present alert, oriented X3 and CN II-XII intact Psychiatric Psychiatric exam: Present normal affect and normal mood Skin Skin exam: Present warm, dry, intact and normal color Course Quality Measures none Orders Category Date Time Status Ketorolac Inj [Toradol Inj] Med 04/03/25 07:47 Discontinued 30 mg IM X1 ONE Vital Signs Vital signs: Vital Signs Temperature 98.2 F 04/03/25 07:48 Pulse Rate 76 04/03/25 07:48 Respiratory Rate 18 04/03/25 07:48 Blood Pressure 107/77 04/03/25 07:48 Pulse Oximetry (%) 96 04/03/25 07:48 Oxygen Delivery Method Room Air 04/03/25 07:48 O2 saturation 96% within normal limits Extremity Problem MDM Narrative MDM Narrative:: 44-year-old male with a history of substance abuse, chronic leg pain, homelessness presents to the emergency room with a chief complaint of bilateral lower extremity pain x 1 year Patient is hemodynamically stable and in no apparent distress. Physical examination shows chronic bilateral lower extremity pain. The patient has a normal shuffling gait that is his baseline. Patient denies any saddle anesthesia or loss of bowel or bladder function. Patient states this pain has been going on for 1 year and states he has not followed up with his primary care provider. The patient has daily visits to the emergency room. Multiple workups have been done and have all been negative. Patient denies any trauma. Shot of Toradol was given and the patient was discharged. Patient was discharged and educated to follow-up with primary care provider in the next 24 to 48 hours and return to the emergency room for any evidence of worsening signs or symptoms Patient data External records reviewed:: [facility] previous records Clinical information provided by:: patient Social determinants that could affect healthcare access:: none Patient has the following chronic illnesses:: No chronic illness How is presenting disease/condition affected by chronic disease/condition?: no chronic disease Evaluation data The following diagnostics were reviewed and interpreted by me:: lab results and radiology exam(s) Lab and/or radiology exams considered but not ordered:: Labs radiology exams considered and ordered Interpretation Summary: N/A Medications / Prescriptions Medications or Prescriptions considered but not ordered:: Medication given Medication administrations:: Medication Administration History Discontinued Medications Ketorolac Tromethamine (Ketorolac Inj 60 Mg/2 Ml Vial) 30 mg IM X1 ONE Stop: 04/03/25 07:48 Last Admin: 04/03/25 08:03 Dose: 30 mg Documented By: ANGEL Medication given Consultations Consultation(s) initiated? (list below): No Diagnosis Extremity Problem Differential Diagnosis: other (Chronic leg pain/acute leg pain) Most likely diagnosis given after review of the tests above:: Chronic leg pain Admission Indicated Admission indicated?: not indicated Admission Request Was there a request for admission?: No Disposition Plan Disposition Plan: Discharge Discharge Attestation Discharge Attestation: The patient and all family members were given an opportunity to ask questions and understood the discharge instructions. Discharge instructions specifically effects, indications for sooner follow up or return to the emergency department, and the expected course of current diagnosis. Patient condition: Stable Discharge Plan Plan Patient Disposition: HOME (Self Care) Discharge Disposition comment: Stable Prescriptions/Referrals Prescriptions/Med Rec: No Action naproxen 500 mg tablet 500 mg PO BID PRN (Reason: pain) Qty: 30 0RF cyclobenzaprine 5 mg tablet 5 mg PO TID PRN (Reason: muscle spasm) Qty: 30 0RF naproxen 500 mg tablet 500 mg PO BID PRN (Reason: pain) Qty: 30 0RF baclofen 10 mg tablet 10 mg PO BID PRN (Reason: muscle spasm) Qty: 30 0RF ibuprofen 800 mg tablet 800 mg PO TID PRN (Reason: pain) Qty: 30 0RF ibuprofen 800 mg tablet 800 mg PO TID PRN (Reason: pain) Qty: 30 0RF ibuprofen 600 mg tablet 600 mg PO Q6H PRN (Reason: pain) Qty: 30 0RF ibuprofen 600 mg tablet 600 mg PO Q8H PRN (Reason: pain) Qty: 20 0RF acetaminophen 500 mg capsule 500 mg PO Q6H PRN (Reason: pain) Qty: 30 0RF lidocaine [Lidoderm] 5 % adhesive patch,medicated 2 patch topical QDAY PRN (Reason: pain) Qty: 30 0RF Rx Instructions: leave on most painful area for up to 12 hrs cyclobenzaprine 5 mg tablet 5 mg PO TID PRN (Reason: muscle spasm) Qty: 15 0RF sulfamethoxazole-trimethoprim [Bactrim DS] 800-160 mg tablet 1 tab PO BID Qty: 14 0RF naproxen 500 mg tablet 500 mg PO BID PRN (Reason: pain) Qty: 30 0RF tamsulosin [Flomax] 0.4 mg capsule 0.4 mg PO QDAY Qty: 30 0RF ibuprofen 600 mg tablet 600 mg PO Q6H PRN (Reason: pain) Qty: 30 0RF methocarbamol 500 mg tablet 1,000 mg PO Q8H PRN (Reason: pain) Qty: 30 0RF naproxen [Naprosyn] 500 mg tablet 500 mg PO BID Qty: 14 0RF ibuprofen 600 mg tablet 600 mg PO Q6H PRN (Reason: fever or pain) Qty: 30 0RF cyclobenzaprine 5 mg tablet 5 mg PO TID PRN (Reason: muscle spasm) Qty: 14 0RF naproxen 500 mg tablet 500 mg PO BID PRN (Reason: pain) Qty: 30 0RF cyclobenzaprine 5 mg tablet 5 mg PO TID PRN (Reason: muscle spasm) Qty: 30 0RF acetaminophen 500 mg capsule 500 mg PO Q6H PRN (Reason: pain) Qty: 30 0RF Referrals: Lavell (PCP),MD Cody [Primary Care Provider] - In 1 week Problem List Clinical Impression: Chronic leg pain Patient/Caregiver Discharge Instructions Education Materials: ED Chronic Pain Additional Instructions: Please follow-up with your primary care provider in the next 24 to 48 hours For any evidence of worsening symptoms or symptoms return to the emergency room immediately Print Language: Mexican Stand Alone Forms: Tami Award Info., Patient Portal Info Letter PA/CRACKER AND COOKIE MACHINE OPERATOR Supervising Physician PA/CRACKER AND COOKIE MACHINE OPERATOR Supervising Physician: Dr. CORTEZ
[2025-04-03] MEDS: KETOROLAC INJ 60 MG/2 ML VIAL 30 MG IM (08:03)
== END 2025-04-03 08:36 | disposition home or self-care (01) ==
PROVIDERS: Emergency Provider Emergency Medicine; PCP Family Medicine
DX: G89.29 Other chronic pain (principal); M79.604 Pain in right leg; M79.605 Pain in left leg
CPT/HCPCS: 96372; 99283; J1885

== ENCOUNTER 2025-04-03 12:46 | Emergency (ER) | payer MEDICAID, SELFPAY ==
[2025-04-03 12:59] VITALS: PULSE 78; RESP 18; O2SAT 99; BMI 28.8
[2025-04-03 13:20] VITALS: BP 145/78; PULSE 100; RESP 18; TEMP 36.9; O2SAT 99
--- NOTE | 2025-04-03 13:38 | EDNOTE_ITS ---
ED Extremity Problem RME/HPI General Chief complaint: Extremity Problem,Nontraumatic Stated complaint: LEG PAIN Time Seen by Provider: 04/03/25 13:04 Source: patient Arrival date/time: 04/03/25 12:46 44-year-old male with a history of homelessness, chronic leg pain, drug abuse presents to the emergency room with a chief complaint of bilateral chronic leg pain. Mode of arrival: ambulatory Limitations: no limitations Related Data Previous Rx's ?Medication ?Instructions ?Recorded sulfamethoxazole 800 1 tab PO BID #14 tabs mg-trimethoprim 160 mg tablet (Bactrim DS) cyclobenzaprine 5 mg tablet 5 mg PO TID PRN muscle spa sm #30 07/23/23 tabs naproxen 500 mg tablet 500 mg PO BID PRN pain #30 t abs 07/23/23 naproxen 500 mg tablet 500 mg PO BID PRN pain #30 t abs 08/08/23 tamsulosin 0.4 mg capsule (Flomax) 0.4 mg PO QDAY #30 caps 08/08/23 baclofen 10 mg tablet 10 mg PO BID PRN muscle spas m #30 08/14/23 tabs naproxen 500 mg tablet 500 mg PO BID PRN pain #30 t abs 08/14/23 ibuprofen 800 mg tablet 800 mg PO TID PRN pain #30 t abs 08/28/23 ibuprofen 600 mg tablet 600 mg PO Q6H PRN pain #30 t abs 01/27/24 methocarbamol 500 mg tablet 1,000 mg (2 x 500 mg) PO Q 8H PRN 01/27/24 pain #30 tabs naproxen 500 mg tablet (Naprosyn) 500 mg PO BID #14 ta bs 03/15/24 ibuprofen 800 mg tablet 800 mg PO TID PRN pain #30 t abs 04/02/24 cyclobenzaprine 5 mg tablet 5 mg PO TID PRN muscle spa sm #14 04/07/24 tabs ibuprofen 600 mg tablet 600 mg PO Q6H PRN fever or p ain 04/07/24 #30 tabs ibuprofen 600 mg tablet 600 mg PO Q6H PRN pain #30 t abs 04/07/24 cyclobenzaprine 5 mg tablet 5 mg PO TID PRN muscle spa sm #30 04/11/24 tabs naproxen 500 mg tablet 500 mg PO BID PRN pain #30 t abs 04/11/24 ibuprofen 600 mg tablet 600 mg PO Q8H PRN pain #20 t abs 11/03/24 acetaminophen 500 mg capsule 500 mg PO Q6H PRN pain #3 0 caps 12/03/24 acetaminophen 500 mg capsule 500 mg PO Q6H PRN pain #3 0 caps 12/15/24 cyclobenzaprine 5 mg tablet 5 mg PO TID PRN muscle spa sm #15 12/20/24 tabs lidocaine 5 % topical patch 2 patch topical QDAY PRN p ain #30 12/20/24 (Lidoderm) ea Allergies Allergy/AdvReac Type Severity Reaction Status Date / Time No Known Allergies Allergy Verified 04/03/25 13:02 Review of Systems Review of Systems Systems Reviewed: All systems reviewed, normal except as documented Constitutional Constitutional: Reports system reviewed and no additional complaints, except as documented, Denies fatigue, Denies fever(s), Denies headache(s) and Denies weakness Eyes Eyes: Reports system reviewed and no additional complaints, except as documented, Denies blurry vision and Denies change in vision ENT Ears, Nose, Mouth, and Throat: Reports system reviewed and no additional complaints, except as documented, Denies otalgia, Denies headache(s), Denies nasal congestion, Denies throat swelling and Denies vertigo Cardiovascular Cardiovascular: Reports system reviewed and no additional complaints, except as documented, Denies chest pain, Denies dyspnea and Denies dyspnea on exertion Respiratory Respiratory: Reports system reviewed and no additional complaints, except as documented, Denies chest congestion, Denies cough, Denies dyspnea, Denies dyspnea on exertion and Denies wheezing Gastrointestinal Gastrointestinal: Reports system reviewed and no additional complaints, except as documented, Denies abdominal pain, Denies cramping, Denies nausea and Denies vomiting Genitourinary Genitourinary: Reports system reviewed and no additional complaints, except as documented, Denies dysuria and Denies hematuria Musculoskeletal Musculoskeletal: Reports system reviewed and no additional complaints, except as documented and Denies back pain Integumentary/Breasts Skin/Breast: Reports system reviewed and no additional complaints, except as documented and Denies wounds Neurologic Neurologic: Reports system reviewed and no additional complaints, except as d ocumented, Denies confusion, Denies headache(s), Denies lack of coordination, Denies vertigo and Denies weakness Psychiatric Psychiatric: Reports system reviewed and no additional complaints, except as documented, Denies anxiety, Denies confusion, Denies depression, Denies paranoia, Denies suicidal ideation and Denies tactile hallucinations Endocrine Endocrine: Reports system reviewed and no additional complaints, except as documented and Denies fatigue Hematologic/Lymphatic Hematologic/Lymphatic: Reports system reviewed and no additional complaints, except as documented and Denies lymphadenopathy Allergic/Immunologic Allergic/Immunologic: Reports system reviewed and no additional complaints, except as documented, Denies throat swelling, Denies urticaria and Denies wheezing Past Medical History Past Medical History NEUROLOGIC: Positive Cerebrovascular Accident; Negative Neurological Disorders CARDIAC: Positive Myocardial Infarction and Hypercholesterolemia; Negative Cardiac Disorders or Congestive Heart Failure RESPIRATORY: Negative Chronic Obstructive Pulmonary Disease (COPD) GASTROINTESTINAL: Negative Gastrointestinal Disorders GENITOURINARY: Negative Genitourinary Disorders or Renal Disease MUSCULOSKELETAL: Negative Musculoskeletal Disorders ENDOCRINE: Negative Endocrine Disorders, Diabetes Mellitus Type 1 or Diabetes Mellitus Type 2 HEMATOLOGIC: Negative Blood Disorders OTHER HISTORY: Negative Autoimmune Disease or Clostridium Difficile Social History SMOKING STATUS: Current some day smoker SUBSTANCE USE: methamphetamine ED Exam General Limitations: Present no limitations General appearance: Present alert and in no apparent distress Head Head exam: Present atraumatic Eye Eye exam: Present normal appearance, PERRL and EOMI ENT ENT exam: Present normal exam, normal oropharynx and mucous membranes moist Neck Neck exam: Present normal inspection, full ROM and trachea midline Chest Chest inspection: Present normal inspection and symmetric chest wall rise Respiratory Respiratory exam: Present normal lung sounds bilaterally Cardiovascular Cardiovascular exam: Present regular rate, normal rhythm and normal heart sounds Abdominal Exam Abdominal exam: Present soft and normal bowel sounds Extremities Exam Extremities exam: Present normal inspection and full ROM Expanded Lower Extremity Exam Hip/Pelvis exam: Present normal inspection Upper leg exam: Present normal inspection Knee exam: Present normal inspection Lower leg exam: Present normal inspection and tenderness Foot/toe exam: Present normal inspection Gait: observed and limited by pain Back Exam Back exam: Present normal inspection and full ROM Neurological Exam Neurological exam: Present alert, oriented X3 and CN II-XII intact Psychiatric Psychiatric exam: Present normal affect and normal mood Skin Skin exam: Present warm, dry, intact and normal color Course Quality Measures none Vital Signs Vital signs: Vital Signs Temperature 98.5 F 04/03/25 13:20 Pulse Rate 100 04/03/25 13:20 Respiratory Rate 18 04/03/25 13:20 Blood Pressure 145/78 H 05/15/25 13:20 Pulse Oximetry (%) 99 04/03/25 13:20 Oxygen Delivery Method Room Air 04/03/25 13:20 Extremity Problem MDM Narrative MDM Narrative:: 44-year-old male with a history of homelessness, chronic leg pain, drug abuse presents to the emergency room with a chief complaint of bilateral chronic leg pain. Patient is hemodynamically stable and in no apparent distress Physical examination shows some chronic neck pain. This is the patient's second visit today the patient has multiple visits every day and is just requesting pain medication. I spoke to the patient and told him that he will need to follow-up with his primary care provider for further management of his chronic leg pain. Patient was discharged and educated to follow-up with primary care provider in the next 24 to 48 hours and return to the emergency room for any evidence of worsening signs or symptoms Patient data External records reviewed:: [facility] previous records Clinical information provided by:: patient Social determinants that could affect healthcare access:: none Patient has the following chronic illnesses:: No chronic illness How is presenting disease/condition affected by chronic disease/condition?: no chronic disease Evaluation data The following diagnostics were reviewed and interpreted by me:: lab results and radiology exam(s) Lab and/or radiology exams considered but not ordered:: Labs and radiology exams considered and ordered Interpretation Summary: N/A Medications / Prescriptions Medications or Prescriptions considered but not ordered:: No medication given Medication administrations:: No medication given Consultations Consultation(s) initiated? (list below): No Diagnosis Extremity Problem Differential Diagnosis: other (Chronic leg pain/acute leg pain) Most likely diagnosis given after review of the tests above:: Chronic leg pain Admission Indicated Admission indicated?: not indicated Admission Request Was there a request for admission?: No Disposition Plan Disposition Plan: Discharge Discharge Attestation Discharge Attestation: The patient and all family members were given an opportunity to ask questions and understood the discharge instructions. Discharge instructions specifically effects, indications for sooner follow up or return to the emergency department, and the expected course of current diagnosis. Patient condition: Stable Discharge Plan Plan Patient Disposition: HOME (Self Care) Discharge Disposition comment: Stable Prescriptions/Referrals Prescriptions/Med Rec: No Action naproxen 500 mg tablet 500 mg PO BID PRN (Reason: pain) Qty: 30 0RF cyclobenzaprine 5 mg tablet 5 mg PO TID PRN (Reason: muscle spasm) Qty: 30 0RF naproxen 500 mg tablet 500 mg PO BID PRN (Reason: pain) Qty: 30 0RF baclofen 10 mg tablet 10 mg PO BID PRN (Reason: muscle spasm) Qty: 30 0RF ibuprofen 800 mg tablet 800 mg PO TID PRN (Reason: pain) Qty: 30 0RF ibuprofen 800 mg tablet 800 mg PO TID PRN (Reason: pain) Qty: 30 0RF ibuprofen 600 mg tablet 600 mg PO Q6H PRN (Reason: pain) Qty: 30 0RF ibuprofen 600 mg tablet 600 mg PO Q8H PRN (Reason: pain) Qty: 20 0RF acetaminophen 500 mg capsule 500 mg PO Q6H PRN (Reason: pain) Qty: 30 0RF lidocaine [Lidoderm] 5 % adhesive patch,medicated 2 patch topical QDAY PRN (Reason: pain) Qty: 30 0RF Rx Instructions: leave on most painful area for up to 12 hrs cyclobenzaprine 5 mg tablet 5 mg PO TID PRN (Reason: muscle spasm) Qty: 15 0RF sulfamethoxazole-trimethoprim [Bactrim DS] 800-160 mg tablet 1 tab PO BID Qty: 14 0RF naproxen 500 mg tablet 500 mg PO BID PRN (Reason: pain) Qty: 30 0RF tamsulosin [Flomax] 0.4 mg capsule 0.4 mg PO QDAY Qty: 30 0RF ibuprofen 600 mg tablet 600 mg PO Q6H PRN (Reason: pain) Qty: 30 0RF methocarbamol 500 mg tablet 1,000 mg PO Q8H PRN (Reason: pain) Qty: 30 0RF naproxen [Naprosyn] 500 mg tablet 500 mg PO BID Qty: 14 0RF ibuprofen 600 mg tablet 600 mg PO Q6H PRN (Reason: fever or pain) Qty: 30 0RF cyclobenzaprine 5 mg tablet 5 mg PO TID PRN (Reason: muscle spasm) Qty: 14 0RF naproxen 500 mg tablet 500 mg PO BID PRN (Reason: pain) Qty: 30 0RF cyclobenzaprine 5 mg tablet 5 mg PO TID PRN (Reason: muscle spasm) Qty: 30 0RF acetaminophen 500 mg capsule 500 mg PO Q6H PRN (Reason: pain) Qty: 30 0RF Problem List Clinical Impression: Chronic leg pain Patient/Caregiver Discharge Instructions Education Materials: ED Chronic Pain Additional Instructions: Please follow-up with your primary care provider in the next 24 to 48 hours. For any evidence of worsening signs or symptoms return to emergency room immediately Print Language: Romanian Stand Alone Forms: Tami Award Info., Patient Portal Info Letter PA/BATTER MIXER HELPER Supervising Physician PA/BATTER MIXER HELPER Supervising Physician: Dr. Brandt
== END 2025-04-03 13:52 | disposition home or self-care (01) ==
LOC: SERX 13:40
PROVIDERS: Emergency Provider Emergency Medicine
DX: M79.605 Pain in left leg (principal); M79.604 Pain in right leg; G89.29 Other chronic pain
CPT/HCPCS: 99281

== ENCOUNTER 2025-04-03 19:12 | Emergency (ER) | payer MEDICAID, SELFPAY ==
[2025-04-03 19:12] VITALS: BMI 28.8
[2025-04-03 20:02] VITALS: BP 157/92; PULSE 98; RESP 18; TEMP 36.9; O2SAT 98
--- NOTE | 2025-04-03 20:18 | PC.NURSE ---
PATIENT STATED I'M LEAVING, AND WALKED OUT OF THE ED.
--- NOTE | 2025-04-03 21:33 | PD.EDRME ---
Rapid Medical Screening Exam RME Arrival date/time: 04/03/25 19:12 44M with history of drug use, homelessness, and chronic back pain presents to ED with chronic bilateral leg pain. Patient would also like some food. Chief Complaint: Extremity Problem,Nontraumatic Time Seen by Provider: 04/03/25 20:04 Vital signs: Vital Signs Temperature 98.5 F 04/03/25 20:02 Pulse Rate 98 04/03/25 20:02 Respiratory Rate 18 04/03/25 20:02 Blood Pressure 157/92 H 04/03/25 20:02 Pulse Oximetry (%) 98 04/03/25 20:02 Oxygen Delivery Method Room Air 04/03/25 20:02 MD Attestation MD Attestation When I looked for the patient to start my evaluation/treatment, I was told the patient eloped. Stephen Gallardo MD
== END 2025-04-03 20:18 | disposition left against medical advice (07) ==
LOC: SERX 20:08
PROVIDERS: Emergency Provider Emergency Medicine; PCP Family Medicine
DX: M79.605 Pain in left leg (principal); M79.604 Pain in right leg; M54.9 Dorsalgia, unspecified; G89.29 Other chronic pain; Z59.00 Homelessness unspecified; Z53.29 Procedure and treatment not carried out because of patient's decision for other reasons
CPT/HCPCS: 99281

== ENCOUNTER 2025-04-04 01:43 | Emergency (ER) | payer MEDICAID, SELFPAY ==
[2025-04-04 02:01] VITALS: BP 134/85; PULSE 90; RESP 20; TEMP 36.9; O2SAT 98
[2025-04-04 02:25] VITALS: BMI 28.8
[2025-04-04] MEDS: NAPROXEN 250 MG TABLET 500 MG PO (02:33)
--- NOTE | 2025-04-04 03:49 | EDNOTE_ITS ---
ED Extremity Problem RME/HPI General Chief complaint: Extremity Problem,Nontraumatic Stated complaint: LEG PAIN Time Seen by Provider: 04/04/25 02:10 Arrival date/time: 04/04/25 01:43 44M with history of drug use, homelessness, and chronic back pain presents to ED with chronic lower back and leg pain. Limitations: no limitations Related Data Previous Rx's ?Medication ?Instructions ?Recorded sulfamethoxazole 800 1 tab PO BID #14 tabs mg-trimethoprim 160 mg tablet (Bactrim DS) cyclobenzaprine 5 mg tablet 5 mg PO TID PRN muscle spa sm #30 07/23/23 tabs naproxen 500 mg tablet 500 mg PO BID PRN pain #30 t abs 07/23/23 naproxen 500 mg tablet 500 mg PO BID PRN pain #30 t abs 08/08/23 tamsulosin 0.4 mg capsule (Flomax) 0.4 mg PO QDAY #30 caps 08/08/23 baclofen 10 mg tablet 10 mg PO BID PRN muscle spas m #30 08/14/23 tabs naproxen 500 mg tablet 500 mg PO BID PRN pain #30 t abs 08/14/23 ibuprofen 800 mg tablet 800 mg PO TID PRN pain #30 t abs 08/28/23 ibuprofen 600 mg tablet 600 mg PO Q6H PRN pain #30 t abs 01/27/24 methocarbamol 500 mg tablet 1,000 mg (2 x 500 mg) PO Q 8H PRN 01/27/24 pain #30 tabs naproxen 500 mg tablet (Naprosyn) 500 mg PO BID #14 ta bs 03/15/24 ibuprofen 800 mg tablet 800 mg PO TID PRN pain #30 t abs 04/02/24 cyclobenzaprine 5 mg tablet 5 mg PO TID PRN muscle spa sm #14 04/07/24 tabs ibuprofen 600 mg tablet 600 mg PO Q6H PRN fever or p ain 04/07/24 #30 tabs ibuprofen 600 mg tablet 600 mg PO Q6H PRN pain #30 t abs 04/07/24 cyclobenzaprine 5 mg tablet 5 mg PO TID PRN muscle spa sm #30 04/11/24 tabs naproxen 500 mg tablet 500 mg PO BID PRN pain #30 t abs 04/11/24 ibuprofen 600 mg tablet 600 mg PO Q8H PRN pain #20 t abs 11/03/24 acetaminophen 500 mg capsule 500 mg PO Q6H PRN pain #3 0 caps 12/03/24 acetaminophen 500 mg capsule 500 mg PO Q6H PRN pain #3 0 caps 12/15/24 cyclobenzaprine 5 mg tablet 5 mg PO TID PRN muscle spa sm #15 12/20/24 tabs lidocaine 5 % topical patch 2 patch topical QDAY PRN p ain #30 12/20/24 (Lidoderm) ea naproxen 500 mg tablet 500 mg PO BID PRN pain #14 t abs 04/04/25 Allergies Allergy/AdvReac Type Severity Reaction Status Date / Time No Known Allergies Allergy Verified 04/03/25 19:12 Review of Systems Review of Systems Systems Reviewed: All systems reviewed, normal except as documented Constitutional Constitutional: Reports system reviewed and no additional complaints, except as documented, Denies fever(s) and Denies headache(s) ENT Ears, Nose, Mouth, and Throat: Denies disequilibrium and Denies headache(s) Cardiovascular Cardiovascular: Reports system reviewed and no additional complaints, except as documented, Denies chest pain and Denies dyspnea Respiratory Respiratory: Reports system reviewed and no additional complaints, except as documented, Denies cough and Denies dyspnea Gastrointestinal Gastrointestinal: Reports system reviewed and no additional complaints, except as documented, Denies abdominal pain, Denies nausea and Denies vomiting Musculoskeletal Musculoskeletal: Reports as per HPI and Reports radiating pain into limb Neurologic Neurologic: Reports system reviewed and no additional complaints, except as documented, Denies confusion, Denies disequilibrium and Denies headache(s) Psychiatric Psychiatric: Denies confusion Past Medical History Past Medical History NEUROLOGIC: Positive Cerebrovascular Accident; Negative Neurological Disorders CARDIAC: Positive Myocardial Infarction and Hypercholesterolemia; Negative Cardiac Disorders or Congestive Heart Failure RESPIRATORY: Negative Chronic Obstructive Pulmonary Disease (COPD) GASTROINTESTINAL: Negative Gastrointestinal Disorders GENITOURINARY: Negative Genitourinary Disorders or Renal Disease MUSCULOSKELETAL: Negative Musculoskeletal Disorders ENDOCRINE: Negative Endocrine Disorders, Diabetes Mellitus Type 1 or Diabetes Mellitus Type 2 HEMATOLOGIC: Negative Blood Disorders OTHER HISTORY: Negative Autoimmune Disease or Clostridium Difficile Social History SMOKING STATUS: Current some day smoker SUBSTANCE USE: methamphetamine ED Exam General Limitations: Present no limitations General appearance: Present alert and in no apparent distress Head Head exam: Present atraumatic Eye Eye exam: Present normal appearance, PERRL and EOMI ENT ENT exam: Present normal exam, normal oropharynx and mucous membranes moist Neck Neck exam: Present normal inspection, full ROM and trachea midline Chest Chest inspection: Present normal inspection and symmetric chest wall rise Respiratory Respiratory exam: Present normal lung sounds bilaterally Cardiovascular Cardiovascular exam: Present regular rate, normal rhythm and normal heart sounds Abdominal Exam Abdominal exam: Present soft and normal bowel sounds Extremities Exam Extremities exam: Present normal inspection and full ROM Back Exam Back exam: Present normal inspection and full ROM Neurological Exam Neurological exam: Present alert, oriented X3 and CN II-XII intact Psychiatric Psychiatric exam: Present normal affect and normal mood Skin Skin exam: Present warm, dry, intact and normal color Course Quality Measures none Orders Category Date Time Status Naproxen [Naprosyn] Med 04/04/25 02:11 Discontinued 500 mg PO X1 ONE Vital Signs Vital signs: Vital Signs Temperature 98.5 F 04/04/25 02:01 Pulse Rate 90 04/04/25 02:01 Respiratory Rate 20 04/04/25 02:01 Blood Pressure 134/85 H 04/04/25 02:01 Pulse Oximetry (%) 98 04/04/25 02:01 O2 at 98% on RA and WNLs Extremity Problem MDM Narrative MDM Narrative:: 44M with history of drug use, homelessness, and chronic back pain presents to ED with chronic lower back and leg pain. Physical exam reveals male in no acute distress. Normal shuffling gait. Patient is afebrile, calm, and alert. Meds and college admissions counselor given. Patient data External records reviewed:: [facility] previous records Clinical information provided by:: patient Social determinants that could affect healthcare access:: substance use Patient has the following chronic illnesses:: drug use, homelessness, and chronic back pain How is presenting disease/condition affected by chronic disease/condition?: caused by Evaluation data The following diagnostics were reviewed and interpreted by me:: other (specify) (none) Lab and/or radiology exams considered but not ordered:: not ordered Interpretation Summary: n/a Medications / Prescriptions Medications or Prescriptions considered but not ordered:: ordered Medication administrations:: Medication Administration History Discontinued Medications Naproxen (Naproxen 250 Mg Tablet) 500 mg PO X1 ONE Stop: 04/04/25 02:12 Last Admin: 04/04/25 02:33 Dose: 500 mg Documented By: CP above Consultations Consultation(s) initiated? (list below): No Diagnosis Extremity Problem Differential Diagnosis: herpes zoster, gout, cellulitis, superficial thrombophlebitis, deep venous thrombosis of upper extremity, lower extremity edema, deep vein thrombosis of lower extremity and other (chronic leg pain) Most likely diagnosis given after review of the tests above:: chronic leg pain Admission Indicated Admission indicated?: not indicated Admission Request Was there a request for admission?: No Disposition Plan Disposition Plan: Discharge Discharge Attestation Discharge Attestation: The patient and all family members were given an opportunity to ask questions and understood the discharge instructions. Discharge instructions specifically effects, indications for sooner follow up or return to the emergency department, and the expected course of current diagnosis. Patient condition: Stable Discharge Plan Plan Patient Disposition: HOME (Self Care) Discharge Disposition comment: Stable Prescriptions/Referrals Prescriptions/Med Rec: New naproxen 500 mg tablet 500 mg PO BID PRN (Reason: pain) Qty: 14 0RF No Action naproxen 500 mg tablet 500 mg PO BID PRN (Reason: pain) Qty: 30 0RF cyclobenzaprine 5 mg tablet 5 mg PO TID PRN (Reason: muscle spasm) Qty: 30 0RF naproxen 500 mg tablet 500 mg PO BID PRN (Reason: pain) Qty: 30 0RF baclofen 10 mg tablet 10 mg PO BID PRN (Reason: muscle spasm) Qty: 30 0RF ibuprofen 800 mg tablet 800 mg PO TID PRN (Reason: pain) Qty: 30 0RF ibuprofen 800 mg tablet 800 mg PO TID PRN (Reason: pain) Qty: 30 0RF ibuprofen 600 mg tablet 600 mg PO Q6H PRN (Reason: pain) Qty: 30 0RF ibuprofen 600 mg tablet 600 mg PO Q8H PRN (Reason: pain) Qty: 20 0RF acetaminophen 500 mg capsule 500 mg PO Q6H PRN (Reason: pain) Qty: 30 0RF lidocaine [Lidoderm] 5 % adhesive patch,medicated 2 patch topical QDAY PRN (Reason: pain) Qty: 30 0RF Rx Instructions: leave on most painful area for up to 12 hrs cyclobenzaprine 5 mg tablet 5 mg PO TID PRN (Reason: muscle spasm) Qty: 15 0RF sulfamethoxazole-trimethoprim [Bactrim DS] 800-160 mg tablet 1 tab PO BID Qty: 14 0RF naproxen 500 mg tablet 500 mg PO BID PRN (Reason: pain) Qty: 30 0RF tamsulosin [Flomax] 0.4 mg capsule 0.4 mg PO QDAY Qty: 30 0RF ibuprofen 600 mg tablet 600 mg PO Q6H PRN (Reason: pain) Qty: 30 0RF methocarbamol 500 mg tablet 1,000 mg PO Q8H PRN (Reason: pain) Qty: 30 0RF naproxen [Naprosyn] 500 mg tablet 500 mg PO BID Qty: 14 0RF ibuprofen 600 mg tablet 600 mg PO Q6H PRN (Reason: fever or pain) Qty: 30 0RF cyclobenzaprine 5 mg tablet 5 mg PO TID PRN (Reason: muscle spasm) Qty: 14 0RF naproxen 500 mg tablet 500 mg PO BID PRN (Reason: pain) Qty: 30 0RF cyclobenzaprine 5 mg tablet 5 mg PO TID PRN (Reason: muscle spasm) Qty: 30 0RF acetaminophen 500 mg capsule 500 mg PO Q6H PRN (Reason: pain) Qty: 30 0RF Problem List Clinical Impression: Chronic leg pain Patient/Caregiver Discharge Instructions Additional Instructions: Please follow-up with PCP within 24-48 hours and return immediately if symptoms worsen. Print Language: Eritrean Stand Alone Forms: Patient Portal Info Letter FAINA/DEVYN Supervising Physician FAINA/DEVYN Supervising Physician: Dr. Gallardo
== END 2025-04-04 02:39 | disposition home or self-care (01) ==
LOC: SERX 02:37
PROVIDERS: Emergency Provider Emergency Medicine; PCP Family Medicine
DX: M79.606 Pain in leg, unspecified (principal); M54.50 Low back pain, unspecified; G89.29 Other chronic pain; Z59.00 Homelessness unspecified
CPT/HCPCS: 99282; A9270

== ENCOUNTER 2025-04-05 00:50 | Emergency (ER) | payer MEDICAID, SELFPAY ==
[2025-04-05 03:02] VITALS: BP 174/96; PULSE 60; RESP 17; TEMP 36.7; O2SAT 100
[2025-04-05] MEDS: NAPROXEN 250 MG TABLET 500 MG PO (03:33)
--- NOTE | 2025-04-05 05:16 | EDNOTE_ITS ---
ED Extremity Problem RME/HPI General Chief complaint: Extremity Problem,Nontraumatic Stated complaint: LEG PAIN Time Seen by Provider: 04/05/25 05:15 Arrival date/time: 04/05/25 00:50 44M with history of drug use, homelessness, and chronic back pain presents to ED with chronic lower back and leg pain. 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 Limitations: no limitations Related Data Previous Rx's ?Medication ?Instructions ?Recorded sulfamethoxazole 800 1 tab PO BID #14 tabs mg-trimethoprim 160 mg tablet (Bactrim DS) cyclobenzaprine 5 mg tablet 5 mg PO TID PRN muscle spa sm #30 07/23/23 tabs naproxen 500 mg tablet 500 mg PO BID PRN pain #30 t abs 07/23/23 naproxen 500 mg tablet 500 mg PO BID PRN pain #30 t abs 08/08/23 tamsulosin 0.4 mg capsule (Flomax) 0.4 mg PO QDAY #30 caps 08/08/23 baclofen 10 mg tablet 10 mg PO BID PRN muscle spas m #30 08/14/23 tabs naproxen 500 mg tablet 500 mg PO BID PRN pain #30 t abs 08/14/23 ibuprofen 800 mg tablet 800 mg PO TID PRN pain #30 t abs 08/28/23 ibuprofen 600 mg tablet 600 mg PO Q6H PRN pain #30 t abs 01/27/24 methocarbamol 500 mg tablet 1,000 mg (2 x 500 mg) PO Q 8H PRN 01/27/24 pain #30 tabs naproxen 500 mg tablet (Naprosyn) 500 mg PO BID #14 ta bs 03/15/24 ibuprofen 800 mg tablet 800 mg PO TID PRN pain #30 t abs 04/02/24 cyclobenzaprine 5 mg tablet 5 mg PO TID PRN muscle spa sm #14 04/07/24 tabs ibuprofen 600 mg tablet 600 mg PO Q6H PRN fever or p ain 04/07/24 #30 tabs ibuprofen 600 mg tablet 600 mg PO Q6H PRN pain #30 t abs 04/07/24 cyclobenzaprine 5 mg tablet 5 mg PO TID PRN muscle spa sm #30 04/11/24 tabs naproxen 500 mg tablet 500 mg PO BID PRN pain #30 t abs 04/11/24 ibuprofen 600 mg tablet 600 mg PO Q8H PRN pain #20 t abs 11/03/24 acetaminophen 500 mg capsule 500 mg PO Q6H PRN pain #3 0 caps 12/03/24 acetaminophen 500 mg capsule 500 mg PO Q6H PRN pain #3 0 caps 12/15/24 cyclobenzaprine 5 mg tablet 5 mg PO TID PRN muscle spa sm #15 12/20/24 tabs lidocaine 5 % topical patch 2 patch topical QDAY PRN p ain #30 12/20/24 (Lidoderm) ea naproxen 500 mg tablet 500 mg PO BID PRN pain #14 t abs 04/04/25 Allergies Allergy/AdvReac Type Severity Reaction Status Date / Time No Known Allergies Allergy Verified 04/03/25 19:12 Review of Systems Review of Systems Systems Reviewed: All systems reviewed, normal except as documented Constitutional Constitutional: Reports system reviewed and no additional complaints, except as documented, Denies fever(s) and Denies headache(s) ENT Ears, Nose, Mouth, and Throat: Denies disequilibrium and Denies headache(s) Cardiovascular Cardiovascular: Reports system reviewed and no additional complaints, except as documented, Denies chest pain and Denies dyspnea Respiratory Respiratory: Reports system reviewed and no additional complaints, except as documented, Denies cough and Denies dyspnea Gastrointestinal Gastrointestinal: Reports system reviewed and no additional complaints, except as documented, Denies abdominal pain, Denies nausea and Denies vomiting Musculoskeletal Musculoskeletal: Reports as per HPI, Reports arthralgias and Reports radiating pain into limb Neurologic Neurologic: Reports system reviewed and no additional complaints, except as documented, Denies confusion, Denies disequilibrium and Denies headache(s) Psychiatric Psychiatric: Denies confusion Past Medical History Past Medical History NEUROLOGIC: Positive Cerebrovascular Accident; Negative Neurological Disorders CARDIAC: Positive Myocardial Infarction and Hypercholesterolemia; Negative Cardiac Disorders or Congestive Heart Failure RESPIRATORY: Negative Chronic Obstructive Pulmonary Disease (COPD) GASTROINTESTINAL: Negative Gastrointestinal Disorders GENITOURINARY: Negative Genitourinary Disorders or Renal Disease MUSCULOSKELETAL: Negative Musculoskeletal Disorders ENDOCRINE: Negative Endocrine Disorders, Diabetes Mellitus Type 1 or Diabetes Mellitus Type 2 HEMATOLOGIC: Negative Blood Disorders OTHER HISTORY: Negative Autoimmune Disease or Clostridium Difficile Social History SMOKING STATUS: Current some day smoker SUBSTANCE USE: methamphetamine ED Exam General Limitations: Present no limitations General appearance: Present alert and in no apparent distress Head Head exam: Present atraumatic Eye Eye exam: Present normal appearance, PERRL and EOMI ENT ENT exam: Present normal exam, normal oropharynx and mucous membranes moist Neck Neck exam: Present normal inspection, full ROM and trachea midline Chest Chest inspection: Present normal inspection and symmetric chest wall rise Respiratory Respiratory exam: Present normal lung sounds bilaterally Cardiovascular Cardiovascular exam: Present regular rate, normal rhythm and normal heart sounds Abdominal Exam Abdominal exam: Present soft and normal bowel sounds Extremities Exam Extremities exam: Present normal inspection and full ROM Back Exam Back exam: Present normal inspection and full ROM Neurological Exam Neurological exam: Present alert, oriented X3 and CN II-XII intact Psychiatric Psychiatric exam: Present normal affect and normal mood Skin Skin exam: Present warm, dry, intact and normal color Course Quality Measures none Orders Category Date Time Status Naproxen [Naprosyn] Med 04/05/25 03:23 Discontinued 500 mg PO X1 ONE Vital Signs Vital signs: Vital Signs Temperature 98.1 F 04/05/25 03:02 Pulse Rate 60 04/05/25 03:02 Respiratory Rate 17 04/05/25 03:02 Blood Pressure 174/96 H 04/05/25 03:02 Pulse Oximetry (%) 100 04/05/25 03:02 Oxygen Delivery Method Room Air 04/05/25 03:02 O2 at 100% on RA and WNLs Extremity Problem MDM Narrative MDM Narrative:: 44M with history of drug use, homelessness, and chronic back pain presents to ED with chronic lower back and leg pain. 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 Physical exam reveals male in no acute distress. Normal shuffling gait. Patient is afebrile, calm, and alert. Meds and business and financial counsel given. Patient data External records reviewed:: [facility] previous records Clinical information provided by:: patient Social determinants that could affect healthcare access:: substance use Patient has the following chronic illnesses:: drug use, homelessness, and chronic back pain How is presenting disease/condition affected by chronic disease/condition?: exacerbated by Evaluation data The following diagnostics were reviewed and interpreted by me:: other (specify) (none) Lab and/or radiology exams considered but not ordered:: not ordered Interpretation Summary: n/a Medications / Prescriptions Medications or Prescriptions considered but not ordered:: ordered Medication administrations:: Medication Administration History Discontinued Medications Naproxen (Naproxen 250 Mg Tablet) 500 mg PO X1 ONE Stop: 04/05/25 03:24 Last Admin: 04/05/25 03:33 Dose: 500 mg Documented By: CB above Consultations Consultation(s) initiated? (list below): No Diagnosis Extremity Problem Differential Diagnosis: herpes zoster, gout, cellulitis, superficial thrombophlebitis, deep venous thrombosis of upper extremity, lower extremity edema, deep vein thrombosis of lower extremity and other (chronic leg pain) Most likely diagnosis given after review of the tests above:: chronic leg pain Admission Indicated Admission indicated?: not indicated Admission Request Was there a request for admission?: No Disposition Plan Disposition Plan: Discharge Discharge Attestation Discharge Attestation: The patient and all family members were given an opportunity to ask questions and understood the discharge instructions. Discharge instructions specifically effects, indications for sooner follow up or return to the emergency department, and the expected course of current diagnosis. Patient condition: Stable Discharge Plan Plan Patient Disposition: HOME (Self Care) Discharge Disposition comment: Stable Prescriptions/Referrals Prescriptions/Med Rec: No Action naproxen 500 mg tablet 500 mg PO BID PRN (Reason: pain) Qty: 30 0RF cyclobenzaprine 5 mg tablet 5 mg PO TID PRN (Reason: muscle spasm) Qty: 30 0RF naproxen 500 mg tablet 500 mg PO BID PRN (Reason: pain) Qty: 30 0RF baclofen 10 mg tablet 10 mg PO BID PRN (Reason: muscle spasm) Qty: 30 0RF ibuprofen 800 mg tablet 800 mg PO TID PRN (Reason: pain) Qty: 30 0RF ibuprofen 800 mg tablet 800 mg PO TID PRN (Reason: pain) Qty: 30 0RF ibuprofen 600 mg tablet 600 mg PO Q6H PRN (Reason: pain) Qty: 30 0RF ibuprofen 600 mg tablet 600 mg PO Q8H PRN (Reason: pain) Qty: 20 0RF acetaminophen 500 mg capsule 500 mg PO Q6H PRN (Reason: pain) Qty: 30 0RF lidocaine [Lidoderm] 5 % adhesive patch,medicated 2 patch topical QDAY PRN (Reason: pain) Qty: 30 0RF Rx Instructions: leave on most painful area for up to 12 hrs cyclobenzaprine 5 mg tablet 5 mg PO TID PRN (Reason: muscle spasm) Qty: 15 0RF naproxen 500 mg tablet 500 mg PO BID PRN (Reason: pain) Qty: 14 0RF sulfamethoxazole-trimethoprim [Bactrim DS] 800-160 mg tablet 1 tab PO BID Qty: 14 0RF naproxen 500 mg tablet 500 mg PO BID PRN (Reason: pain) Qty: 30 0RF tamsulosin [Flomax] 0.4 mg capsule 0.4 mg PO QDAY Qty: 30 0RF ibuprofen 600 mg tablet 600 mg PO Q6H PRN (Reason: pain) Qty: 30 0RF methocarbamol 500 mg tablet 1,000 mg PO Q8H PRN (Reason: pain) Qty: 30 0RF naproxen [Naprosyn] 500 mg tablet 500 mg PO BID Qty: 14 0RF ibuprofen 600 mg tablet 600 mg PO Q6H PRN (Reason: fever or pain) Qty: 30 0RF cyclobenzaprine 5 mg tablet 5 mg PO TID PRN (Reason: muscle spasm) Qty: 14 0RF naproxen 500 mg tablet 500 mg PO BID PRN (Reason: pain) Qty: 30 0RF cyclobenzaprine 5 mg tablet 5 mg PO TID PRN (Reason: muscle spasm) Qty: 30 0RF acetaminophen 500 mg capsule 500 mg PO Q6H PRN (Reason: pain) Qty: 30 0RF Problem List Clinical Impression: Chronic leg pain Patient/Caregiver Discharge Instructions Additional Instructions: Please follow-up with PCP within 24-48 hours and return immediately if symptoms worsen. If problem persists, recommend outpatient PT and/or MRI follow-up. In the meantime, rest, use ice/heat, and/or compression. Print Language: Swazi Stand Alone Forms: Patient Portal Info Letter PA/[place] MACHINE OPERATOR Supervising Physician FAINA/[place] MACHINE OPERATOR Supervising Physician: Dr. Pedraza
[2025-04-05 06:07] VITALS: RESP 18
== END 2025-04-05 06:30 | disposition home or self-care (01) ==
LOC: SERX 06:41
PROVIDERS: Emergency Provider Emergency Medicine; PCP Family Medicine
DX: G89.29 Other chronic pain (principal); M79.606 Pain in leg, unspecified; M54.9 Dorsalgia, unspecified
CPT/HCPCS: 99282; A9270

== ENCOUNTER 2025-04-05 10:36 | Emergency (ER) | payer MEDICAID, SELFPAY ==
[2025-04-05 10:48] VITALS: PULSE 74; RESP 18; O2SAT 98
[2025-04-05 11:09] VITALS: BP 118/84; PULSE 72; RESP 18; TEMP 37; O2SAT 98; BMI 27.4
--- NOTE | 2025-04-05 11:24 | EDNOTE_ITS ---
ED Extremity Problem RME/HPI General Chief complaint: Extremity Problem,Nontraumatic Stated complaint: BILATERAL LEG PAIN; SEEN ER 5 HOURS AGO Time Seen by Provider: 04/05/25 10:48 Arrival date/time: 04/05/25 10:36 This is a 44M with history of drug use, homelessness, and chronic back pain presents to ED with chronic lower back and leg pain. Patient denies any new trauma. Patient was recently seen in the emergency room. Patient comes to the emergency room sometimes almost daily. Related Data Previous Rx's ?Medication ?Instructions ?Recorded sulfamethoxazole 800 1 tab PO BID #14 tabs mg-trimethoprim 160 mg tablet (Bactrim DS) cyclobenzaprine 5 mg tablet 5 mg PO TID PRN muscle spa sm #30 07/23/23 tabs naproxen 500 mg tablet 500 mg PO BID PRN pain #30 t abs 07/23/23 naproxen 500 mg tablet 500 mg PO BID PRN pain #30 t abs 08/08/23 tamsulosin 0.4 mg capsule (Flomax) 0.4 mg PO QDAY #30 caps 08/08/23 baclofen 10 mg tablet 10 mg PO BID PRN muscle spas m #30 08/14/23 tabs naproxen 500 mg tablet 500 mg PO BID PRN pain #30 t abs 08/14/23 ibuprofen 800 mg tablet 800 mg PO TID PRN pain #30 t abs 08/28/23 ibuprofen 600 mg tablet 600 mg PO Q6H PRN pain #30 t abs 01/27/24 methocarbamol 500 mg tablet 1,000 mg (2 x 500 mg) PO Q 8H PRN 01/27/24 pain #30 tabs naproxen 500 mg tablet (Naprosyn) 500 mg PO BID #14 ta bs 03/15/24 ibuprofen 800 mg tablet 800 mg PO TID PRN pain #30 t abs 04/02/24 cyclobenzaprine 5 mg tablet 5 mg PO TID PRN muscle spa sm #14 04/07/24 tabs ibuprofen 600 mg tablet 600 mg PO Q6H PRN fever or p ain 04/07/24 #30 tabs ibuprofen 600 mg tablet 600 mg PO Q6H PRN pain #30 t abs 04/07/24 cyclobenzaprine 5 mg tablet 5 mg PO TID PRN muscle spa sm #30 04/11/24 tabs naproxen 500 mg tablet 500 mg PO BID PRN pain #30 t abs 04/11/24 ibuprofen 600 mg tablet 600 mg PO Q8H PRN pain #20 t abs 11/03/24 acetaminophen 500 mg capsule 500 mg PO Q6H PRN pain #3 0 caps 12/03/24 acetaminophen 500 mg capsule 500 mg PO Q6H PRN pain #3 0 caps 12/15/24 cyclobenzaprine 5 mg tablet 5 mg PO TID PRN muscle spa sm #15 12/20/24 tabs lidocaine 5 % topical patch 2 patch topical QDAY PRN p ain #30 12/20/24 (Lidoderm) ea naproxen 500 mg tablet 500 mg PO BID PRN pain #14 t abs 04/04/25 Allergies Allergy/AdvReac Type Severity Reaction Status Date / Time No Known Allergies Allergy Verified 04/05/25 10:51 Course Orders Category Date Time Status Acetaminophen Tab [Tylenol ES Tab] Med 04/05/25 11:23 Discontinued 1,000 mg PO X1 ONE Ibuprofen Tab [Motrin Tab] Med 04/05/25 11:23 Discontinued 800 mg PO X1 ONE Vital Signs Vital signs: Vital Signs Temperature 98.6 F 04/05/25 11:09 Pulse Rate 72 04/05/25 11:09 Respiratory Rate 18 04/05/25 11:09 Blood Pressure 118/84 04/05/25 11:09 Pulse Oximetry (%) 98 04/05/25 11:09 Oxygen Delivery Method Room Air 04/05/25 11:09 Extremity Problem Medications / Prescriptions Medication administrations:: Medication Administration History Discontinued Medications Acetaminophen (Acetaminophen 500 Mg Tablet) 1,000 mg PO X1 ONE Stop: 04/05/25 11:24 Last Admin: 04/05/25 11:51 Dose: 1,000 mg Documented By: MATTHEW Ibuprofen (Ibuprofen Tab 400 Mg Tablet) 800 mg PO X1 ONE Stop: 04/05/25 11:24 Last Admin: 04/05/25 11:51 Dose: 800 mg Documented By: MATTHEW Discharge Plan Plan Patient Disposition: HOME (Self Care) Patient condition on transfer: Stable Prescriptions/Referrals Prescriptions/Med Rec: No Action naproxen 500 mg tablet 500 mg PO BID PRN (Reason: pain) Qty: 30 0RF cyclobenzaprine 5 mg tablet 5 mg PO TID PRN (Reason: muscle spasm) Qty: 30 0RF naproxen 500 mg tablet 500 mg PO BID PRN (Reason: pain) Qty: 30 0RF baclofen 10 mg tablet 10 mg PO BID PRN (Reason: muscle spasm) Qty: 30 0RF ibuprofen 800 mg tablet 800 mg PO TID PRN (Reason: pain) Qty: 30 0RF ibuprofen 800 mg tablet 800 mg PO TID PRN (Reason: pain) Qty: 30 0RF ibuprofen 600 mg tablet 600 mg PO Q6H PRN (Reason: pain) Qty: 30 0RF ibuprofen 600 mg tablet 600 mg PO Q8H PRN (Reason: pain) Qty: 20 0RF acetaminophen 500 mg capsule 500 mg PO Q6H PRN (Reason: pain) Qty: 30 0RF lidocaine [Lidoderm] 5 % adhesive patch,medicated 2 patch topical QDAY PRN (Reason: pain) Qty: 30 0RF Rx Instructions: leave on most painful area for up to 12 hrs cyclobenzaprine 5 mg tablet 5 mg PO TID PRN (Reason: muscle spasm) Qty: 15 0RF naproxen 500 mg tablet 500 mg PO BID PRN (Reason: pain) Qty: 14 0RF sulfamethoxazole-trimethoprim [Bactrim DS] 800-160 mg tablet 1 tab PO BID Qty: 14 0RF naproxen 500 mg tablet 500 mg PO BID PRN (Reason: pain) Qty: 30 0RF tamsulosin [Flomax] 0.4 mg capsule 0.4 mg PO QDAY Qty: 30 0RF ibuprofen 600 mg tablet 600 mg PO Q6H PRN (Reason: pain) Qty: 30 0RF methocarbamol 500 mg tablet 1,000 mg PO Q8H PRN (Reason: pain) Qty: 30 0RF naproxen [Naprosyn] 500 mg tablet 500 mg PO BID Qty: 14 0RF ibuprofen 600 mg tablet 600 mg PO Q6H PRN (Reason: fever or pain) Qty: 30 0RF cyclobenzaprine 5 mg tablet 5 mg PO TID PRN (Reason: muscle spasm) Qty: 14 0RF naproxen 500 mg tablet 500 mg PO BID PRN (Reason: pain) Qty: 30 0RF cyclobenzaprine 5 mg tablet 5 mg PO TID PRN (Reason: muscle spasm) Qty: 30 0RF acetaminophen 500 mg capsule 500 mg PO Q6H PRN (Reason: pain) Qty: 30 0RF Referrals: Lavell (PCP),MD Cody [Primary Care Provider] - In 1 week Problem List Clinical Impression: Chronic leg pain Patient/Caregiver Discharge Instructions Discharge Activity: activity as tolerated Education Materials: ED Chronic Pain Additional Instructions: Follow up with primary provider in 1-2 days. Come back to ED if symptoms change or worsen Print Language: Kyr[place] Stand Alone Forms: Tami Award Info., Patient Portal Info Letter PA/[employer] Supervising Physician PA/[employer] Supervising Physician: evan
[2025-04-05] MEDS: IBUPROFEN TAB 400 MG TABLET 800 MG PO (11:51)
[2025-04-05] MEDS: ACETAMINOPHEN 500 MG TABLET 1000 MG PO (11:51)
== END 2025-04-05 12:04 | disposition home or self-care (01) ==
PROVIDERS: Emergency Provider Emergency Medicine; PCP Family Medicine
DX: G89.29 Other chronic pain (principal); M79.605 Pain in left leg; M79.604 Pain in right leg
CPT/HCPCS: 99282; A9270

== ENCOUNTER 2025-04-05 16:04 | Emergency (ER) | payer MEDICAID, SELFPAY ==
[2025-04-05 17:48] VITALS: BP 116/79; PULSE 75; RESP 18; TEMP 37; O2SAT 97; BMI 30.4
--- NOTE | 2025-04-05 18:14 | PD.EDRME ---
Rapid Medical Screening Exam RME Arrival date/time: 04/05/25 16:04 Chief Complaint: Extremity Problem,Nontraumatic Time Seen by Provider: 04/05/25 18:09 Vital signs: Vital Signs Temperature 98.6 F 04/05/25 17:48 Pulse Rate 75 04/05/25 17:48 Respiratory Rate 18 04/05/25 17:48 Blood Pressure 116/79 04/05/25 17:48 Pulse Oximetry (%) 97 04/05/25 17:48 Oxygen Delivery Method Room Air 04/05/25 17:48 RME Narrative: c/o persistent leg pain. This is patient's 3rd visit today.
--- NOTE | 2025-04-05 19:33 | PC.NURSE ---
N/A FROM [facility] FOR MEDICATION 1933
--- NOTE | 2025-04-05 19:40 | PC.NURSE ---
[facility]
--- NOTE | 2025-04-05 19:49 | PC.NURSE ---
[facility]
== END 2025-04-05 19:49 | disposition left against medical advice (07) ==
LOC: SERX 16:36
PROVIDERS: Emergency Provider Emergency Medicine
DX: M79.606 Pain in leg, unspecified (principal); Z53.29 Procedure and treatment not carried out because of patient's decision for other reasons
CPT/HCPCS: 99281

== ENCOUNTER 2025-04-06 01:04 | Emergency (ER) | payer MEDICAID, SELFPAY ==
[2025-04-06 01:05] VITALS: BMI 26.7
[2025-04-06 01:41] VITALS: BP 144/88; PULSE 63; RESP 18; TEMP 36.6; O2SAT 99
--- NOTE | 2025-04-06 01:43 | PD.EDRME ---
Rapid Medical Screening Exam E Arrival date/time: 04/06/25 01:04 Chief Complaint: Extremity Injury, Lower Vital signs: Vital Signs Temperature 97.9 F 04/06/25 01:41 Pulse Rate 63 04/06/25 01:41 Respiratory Rate 18 04/06/25 01:41 Blood Pressure 144/88 H 04/06/25 01:41 Pulse Oximetry (%) 99 04/06/25 01:41 Oxygen Delivery Method Room Air 04/06/25 01:41 RME Narrative: c/o leg pain. Patient has been seen every day since 03/27 for same complaint. 3 ER visits yesterday.
[2025-04-06] MEDS: ACETAMINOPHEN 500 MG TABLET 1000 MG PO (02:13)
--- NOTE | 2025-04-06 02:15 | PC.NURSE ---
SEEN BY SECURITY LEAVING THE PROPERTY-ELOPED
== END 2025-04-06 02:15 | disposition left against medical advice (07) ==
PROVIDERS: Emergency Provider Emergency Medicine
DX: M79.606 Pain in leg, unspecified (principal); Z53.29 Procedure and treatment not carried out because of patient's decision for other reasons
CPT/HCPCS: 99281; A9270

== ENCOUNTER 2025-04-06 20:00 | Emergency (ER) | payer MEDICAID, SELFPAY ==
[2025-04-06 20:01] VITALS: PULSE 82; RESP 20; O2SAT 98; BMI 26.7
[2025-04-06 20:21] VITALS: BP 148/96; PULSE 74; RESP 20; TEMP 36.6; O2SAT 98
--- NOTE | 2025-04-06 20:46 | PD.EDEXREM ---
ED Extremity Problem RME/HPI General Chief complaint: Extremity Problem,Nontraumatic Stated complaint: LEG PAIN Time Seen by Provider: 04/06/25 20:23 Source: patient Arrival date/time: 04/06/25 20:00 Mode of arrival: ambulatory Limitations: no limitations RME / HPI Complaint: extremity pain Related Data Previous Rx's ?Medication ?Instructions ?Recorded sulfamethoxazole 800 1 tab PO BID #14 tabs 03/09/23 mg-trimethoprim 160 mg tablet (Bactrim DS) cyclobenzaprine 5 mg tablet 5 mg PO TID PRN muscle spasm #30 07/23/23 tabs naproxen 500 mg tablet 500 mg PO BID PRN pain #30 tabs 07/23/23 naproxen 500 mg tablet 500 mg PO BID PRN pain #30 tabs 08/08/23 tamsulosin 0.4 mg capsule (Flomax) 0.4 mg PO QDAY #30 caps 08/08/23 baclofen 10 mg tablet 10 mg PO BID PRN muscle spasm #30 08/14/23 tabs naproxen 500 mg tablet 500 mg PO BID PRN pain #30 tabs 08/14/23 ibuprofen 800 mg tablet 800 mg PO TID PRN pain #30 tabs 08/28/23 ibuprofen 600 mg tablet 600 mg PO Q6H PRN pain #30 tabs 01/27/24 methocarbamol 500 mg tablet 1,000 mg (2 x 500 mg) PO Q8H PRN 01/27/24 pain #30 tabs naproxen 500 mg tablet (Naprosyn) 500 mg PO BID #14 tabs 03/15/24 ibuprofen 800 mg tablet 800 mg PO TID PRN pain #30 tabs 04/02/24 cyclobenzaprine 5 mg tablet 5 mg PO TID PRN muscle spasm #14 04/07/24 tabs ibuprofen 600 mg tablet 600 mg PO Q6H PRN fever or pain 04/07/24 #30 tabs ibuprofen 600 mg tablet 600 mg PO Q6H PRN pain #30 tabs 04/07/24 cyclobenzaprine 5 mg tablet 5 mg PO TID PRN muscle spasm #30 04/11/24 tabs naproxen 500 mg tablet 500 mg PO BID PRN pain #30 tabs 04/11/24 ibuprofen 600 mg tablet 600 mg PO Q8H PRN pain #20 tabs 11/03/24 acetaminophen 500 mg capsule 500 mg PO Q6H PRN pain #30 caps 12/03/24 acetaminophen 500 mg capsule 500 mg PO Q6H PRN pain #30 caps 12/15/24 cyclobenzaprine 5 mg tablet 5 mg PO TID PRN muscle spasm #15 12/20/24 tabs lidocaine 5 % topical patch 2 patch topical QDAY PRN pain #30 12/20/24 (Lidoderm) ea naproxen 500 mg tablet 500 mg PO BID PRN pain #14 tabs 04/04/25 Allergies Allergy/AdvReac Type Severity Reaction Status Date / Time No Known Allergies Allergy Verified 04/05/25 16:06 Review of Systems Constitutional Constitutional: Reports system reviewed and no additional complaints, except as documented Eyes Eyes: Reports system reviewed and no additional complaints, except as documented, Denies dry eyes, Denies exophthalmos and Reports floaters Cardiovascular Cardiovascular: Denies chest pain with activity and Denies claudication ED Exam General Limitations: Present no limitations General appearance: Present alert and in no apparent distress Head Head exam: Present atraumatic Eye Eye exam: Present normal appearance and EOMI ENT ENT exam: Present normal exam, normal oropharynx and mucous membranes moist Neck Neck exam: Present normal inspection and full ROM Chest Chest inspection: Present normal inspection and symmetric chest wall rise Abdominal Exam Abdominal exam: Present soft Extremities Exam Extremities exam: Present normal inspection and full ROM Back Exam Back exam: Present normal inspection and full ROM Neurological Exam Neurological exam: Present alert and oriented X3 Psychiatric Psychiatric exam: Present normal affect and normal mood Skin Skin exam: Present warm, dry, intact and normal color Course Course Course Narrative: Patient will be sent home without medication as he has become a chronic visitor to the ED for pain medication. Quality Measures none Orders None Vital Signs Vital signs: Vital Signs Temperature 97.9 F 04/06/25 20:21 Pulse Rate 74 04/06/25 20:21 Respiratory Rate 20 04/06/25 20:21 Blood Pressure 148/96 H 04/06/25 20:21 Pulse Oximetry (%) 98 04/06/25 20:21 Oxygen Delivery Method Room Air 04/06/25 20:21 Pulse ox room air 98% normal Extremity Problem MDM Narrative MDM Narrative:: Patient will be discharged in no apparent distress. Patient data External records reviewed:: Other (specify) Clinical information provided by:: none Social determinants that could affect healthcare access:: none Patient has the following chronic illnesses:: Leg pain How is presenting disease/condition affected by chronic disease/condition?: no chronic disease Evaluation data The following diagnostics were reviewed and interpreted by me:: other (specify) Lab and/or radiology exams considered but not ordered:: None Interpretation Summary: None Medications / Prescriptions Medications or Prescriptions considered but not ordered:: None Medication administrations:: None Consultations Consultation(s) initiated? (list below): No Diagnosis Extremity Problem Differential Diagnosis: superficial thrombophlebitis, deep venous thrombosis of upper extremity and lower extremity edema Most likely diagnosis given after review of the tests above:: N/A Admission Indicated Admission indicated?: not indicated Explain why admission is indicated or not indicated:: N/A Admission Request Was there a request for admission?: No Admission Attestation Admission request attestation: N/A Disposition Plan Disposition Plan: other (specify) Discharge Attestation Discharge Attestation: Patient discharged in no apparent distress Discharge Plan Plan Patient Disposition: HOME (Self Care) Discharge Disposition comment: Patient discharged in no apparent distress Patient condition on transfer: Stable Prescriptions/Referrals Prescriptions/Med Rec: No Action naproxen 500 mg tablet 500 mg PO BID PRN (Reason: pain) Qty: 30 0RF cyclobenzaprine 5 mg tablet 5 mg PO TID PRN (Reason: muscle spasm) Qty: 30 0RF naproxen 500 mg tablet 500 mg PO BID PRN (Reason: pain) Qty: 30 0RF baclofen 10 mg tablet 10 mg PO BID PRN (Reason: muscle spasm) Qty: 30 0RF ibuprofen 800 mg tablet 800 mg PO TID PRN (Reason: pain) Qty: 30 0RF ibuprofen 800 mg tablet 800 mg PO TID PRN (Reason: pain) Qty: 30 0RF ibuprofen 600 mg tablet 600 mg PO Q6H PRN (Reason: pain) Qty: 30 0RF ibuprofen 600 mg tablet 600 mg PO Q8H PRN (Reason: pain) Qty: 20 0RF acetaminophen 500 mg capsule 500 mg PO Q6H PRN (Reason: pain) Qty: 30 0RF lidocaine [Lidoderm] 5 % adhesive patch,medicated 2 patch topical QDAY PRN (Reason: pain) Qty: 30 0RF Rx Instructions: leave on most painful area for up to 12 hrs cyclobenzaprine 5 mg tablet 5 mg PO TID PRN (Reason: muscle spasm) Qty: 15 0RF naproxen 500 mg tablet 500 mg PO BID PRN (Reason: pain) Qty: 14 0RF sulfamethoxazole-trimethoprim [Bactrim DS] 800-160 mg tablet 1 tab PO BID Qty: 14 0RF naproxen 500 mg tablet 500 mg PO BID PRN (Reason: pain) Qty: 30 0RF tamsulosin [Flomax] 0.4 mg capsule 0.4 mg PO QDAY Qty: 30 0RF ibuprofen 600 mg tablet 600 mg PO Q6H PRN (Reason: pain) Qty: 30 0RF methocarbamol 500 mg tablet 1,000 mg PO Q8H PRN (Reason: pain) Qty: 30 0RF naproxen [Naprosyn] 500 mg tablet 500 mg PO BID Qty: 14 0RF ibuprofen 600 mg tablet 600 mg PO Q6H PRN (Reason: fever or pain) Qty: 30 0RF cyclobenzaprine 5 mg tablet 5 mg PO TID PRN (Reason: muscle spasm) Qty: 14 0RF naproxen 500 mg tablet 500 mg PO BID PRN (Reason: pain) Qty: 30 0RF cyclobenzaprine 5 mg tablet 5 mg PO TID PRN (Reason: muscle spasm) Qty: 30 0RF acetaminophen 500 mg capsule 500 mg PO Q6H PRN (Reason: pain) Qty: 30 0RF Referrals: Lavell (PCP),MD Cody [Primary Care Provider] - In 1 week Problem List Clinical Impression: Leg pain Patient/Caregiver Discharge Instructions Discharge Activity: activity as tolerated Print Language: Citizen [place] Stand Alone Forms: Tami Award Info., Patient Portal Info Letter PA/[employer] Supervising Physician PA/[employer] Supervising Physician: Armando Pedraza
--- NOTE | 2025-04-06 21:02 | PC.NURSE ---
PT TOOK OFF ER.
== END 2025-04-06 21:04 | disposition home or self-care (01) ==
PROVIDERS: Emergency Provider Emergency Medicine; PCP Family Medicine
DX: M79.606 Pain in leg, unspecified (principal)
CPT/HCPCS: 99281

== ENCOUNTER 2025-04-07 20:24 | Emergency (ER) | payer MEDICAID, SELFPAY ==
[2025-04-07 21:01] VITALS: BP 158/94; PULSE 105; RESP 18; TEMP 36.9; O2SAT 97
--- NOTE | 2025-04-07 21:03 | PD.EDRME ---
Rapid Medical Screening Exam RME Arrival date/time: 04/07/25 20:24 Chief Complaint: Extremity Problem,Nontraumatic Time Seen by Provider: 04/07/25 20:55 Vital signs: Vital Signs Temperature 98.5 F 04/07/25 21:01 Pulse Rate 105 H 04/07/25 21:01 Respiratory Rate 18 04/07/25 21:01 Blood Pressure 158/94 H 04/07/25 21:01 Pulse Oximetry (%) 97 04/07/25 21:01 Oxygen Delivery Method Room Air 04/07/25 21:01 E Narrative: c/o continued b/l leg pain
--- NOTE | 2025-04-07 21:31 | PC.NURSE ---
SECURITY INFORMED ME THAT PT LEFT.
== END 2025-04-07 21:38 | disposition left against medical advice (07) ==
PROVIDERS: Emergency Provider Emergency Medicine; PCP Family Medicine
DX: M79.605 Pain in left leg (principal); M79.604 Pain in right leg; Z53.29 Procedure and treatment not carried out because of patient's decision for other reasons
CPT/HCPCS: 99281

== ENCOUNTER 2025-04-08 07:55 | Emergency (ER) | payer MEDICAID, SELFPAY ==
[2025-04-08 07:55] VITALS: PULSE 68; RESP 30; BMI 28.0
--- NOTE | 2025-04-08 08:00 | EDNOTE_ITS ---
Lower Extremity Injury RME/HPI General Chief Complaint: Extremity Injury, Lower Stated Complaint: Long. leg pain, seen earlier for same complaint Time Seen by Provider: 04/08/25 08:00 Arrival date/time: 04/08/25 07:55 44-year-old male homeless with methamphetamine abuse presents the emergency room today for complaints of bilateral leg pain patient comes to the ER multiple times for the same patient reports no fever nausea vomiting. Patient reports he would like some food and something to drink Limitations: no limitations Related Data Previous Rx's ?Medication ?Instructions ?Recorded sulfamethoxazole 800 1 tab PO BID #14 tabs mg-trimethoprim 160 mg tablet (Bactrim DS) cyclobenzaprine 5 mg tablet 5 mg PO TID PRN muscle spa sm #30 07/23/23 tabs naproxen 500 mg tablet 500 mg PO BID PRN pain #30 t abs 07/23/23 naproxen 500 mg tablet 500 mg PO BID PRN pain #30 t abs 08/08/23 tamsulosin 0.4 mg capsule (Flomax) 0.4 mg PO QDAY #30 caps 08/08/23 baclofen 10 mg tablet 10 mg PO BID PRN muscle spas m #30 08/14/23 tabs naproxen 500 mg tablet 500 mg PO BID PRN pain #30 t abs 08/14/23 ibuprofen 800 mg tablet 800 mg PO TID PRN pain #30 t abs 08/28/23 ibuprofen 600 mg tablet 600 mg PO Q6H PRN pain #30 t abs 01/27/24 methocarbamol 500 mg tablet 1,000 mg (2 x 500 mg) PO Q 8H PRN 01/27/24 pain #30 tabs naproxen 500 mg tablet (Naprosyn) 500 mg PO BID #14 ta bs 03/15/24 ibuprofen 800 mg tablet 800 mg PO TID PRN pain #30 t abs 04/02/24 cyclobenzaprine 5 mg tablet 5 mg PO TID PRN muscle spa sm #14 04/07/24 tabs ibuprofen 600 mg tablet 600 mg PO Q6H PRN fever or p ain 04/07/24 #30 tabs ibuprofen 600 mg tablet 600 mg PO Q6H PRN pain #30 t abs 04/07/24 cyclobenzaprine 5 mg tablet 5 mg PO TID PRN muscle spa sm #30 04/11/24 tabs naproxen 500 mg tablet 500 mg PO BID PRN pain #30 t abs 04/11/24 ibuprofen 600 mg tablet 600 mg PO Q8H PRN pain #20 t abs 11/03/24 acetaminophen 500 mg capsule 500 mg PO Q6H PRN pain #3 0 caps 12/03/24 acetaminophen 500 mg capsule 500 mg PO Q6H PRN pain #3 0 caps 12/15/24 cyclobenzaprine 5 mg tablet 5 mg PO TID PRN muscle spa sm #15 12/20/24 tabs lidocaine 5 % topical patch 2 patch topical QDAY PRN p ain #30 12/20/24 (Lidoderm) ea naproxen 500 mg tablet 500 mg PO BID PRN pain #14 t abs 04/04/25 Allergies Allergy/AdvReac Type Severity Reaction Status Date / Time No Known Allergies Allergy Verified 04/08/25 07:59 Review of Systems Review of Systems Systems Reviewed: All systems reviewed, normal except as documented Constitutional Constitutional: Reports system reviewed and no additional complaints, except as documented, Denies fever(s) and Denies headache(s) Eyes Eyes: Reports system reviewed and no additional complaints, except as documented and Denies blurry vision ENT Ears, Nose, Mouth, and Throat: Reports system reviewed and no additional complaints, except as documented, Denies headache(s), Denies nasal congestion and Denies nasal discharge Cardiovascular Cardiovascular: Reports system reviewed and no additional complaints, except as documented, Denies chest pain and Denies dyspnea Respiratory Respiratory: Reports system reviewed and no additional complaints, except as documented, Denies chest congestion, Denies cough and Denies dyspnea Gastrointestinal Gastrointestinal: Reports system reviewed and no additional complaints, except as documented and Denies abdominal pain Musculoskeletal Musculoskeletal: Reports system reviewed and no additional complaints, except as documented, Reports arthralgias, Denies deformity, Denies numbness, Reports stiffness and Denies tingling Integumentary/Breasts Skin/Breast: Reports system reviewed and no additional complaints, except as documented and Denies rash Neurologic Neurologic: Reports system reviewed and no additional complaints, except as do cumented, Reports as per HPI, Denies headache(s), Denies numbness and Denies tingling Past Medical History Past Medical History NEUROLOGIC: Positive Cerebrovascular Accident; Negative Neurological Disorders CARDIAC: Positive Myocardial Infarction and Hypercholesterolemia; Negative Cardiac Disorders or Congestive Heart Failure RESPIRATORY: Negative Chronic Obstructive Pulmonary Disease (COPD) GASTROINTESTINAL: Negative Gastrointestinal Disorders GENITOURINARY: Negative Genitourinary Disorders or Renal Disease MUSCULOSKELETAL: Negative Musculoskeletal Disorders ENDOCRINE: Negative Endocrine Disorders, Diabetes Mellitus Type 1 or Diabetes Mellitus Type 2 HEMATOLOGIC: Negative Blood Disorders OTHER HISTORY: Negative Autoimmune Disease or Clostridium Difficile Social History SMOKING STATUS: Current every day smoker SUBSTANCE USE: methamphetamine ED Exam General Limitations: Present no limitations General appearance: Present alert and in no apparent distress Head Head exam: Present atraumatic Eye Eye exam: Present normal appearance, PERRL and EOMI ENT ENT exam: Present normal exam, normal oropharynx and mucous membranes moist Neck Neck exam: Present normal inspection, full ROM and trachea midline Chest Chest inspection: Present normal inspection and symmetric chest wall rise Respiratory Respiratory exam: Present normal lung sounds bilaterally Cardiovascular Cardiovascular exam: Present regular rate, normal rhythm and normal heart sounds Abdominal Exam Abdominal exam: Present soft and normal bowel sounds Extremities Exam Extremities exam: Present normal inspection and full ROM Back Exam Back exam: Present normal inspection and full ROM Neurological Exam Neurological exam: Present alert, oriented X3, CN II-XII intact, normal gait and reflexes normal; Absent motor sensory deficit Psychiatric Psychiatric exam: Present normal affect and normal mood Skin Skin exam: Present warm, dry, intact and normal color Course Quality Measures none Vital Signs Vital signs: Vital Signs Temperature 98.2 F 04/08/25 08:03 Pulse Rate 83 04/08/25 08:03 Respiratory Rate 18 04/08/25 08:03 Blood Pressure 126/87 H 04/08/25 08:03 Pulse Oximetry (%) 97 04/08/25 08:03 Oxygen Delivery Method Room Air 04/08/25 08:03 O2 saturation 97% on room air within normal limits Extremity Injury, Lower MDM Narrative MDM Narrative:: 44-year-old male homeless with methamphetamine abuse presents the emergency room today for complaints of bilateral leg pain patient comes to the ER multiple times for the same patient reports no fever nausea vomiting. Patient reports he would like some food and something to drink On exam patient does not appear ill or toxic in no acute distress Patient discharged home in no distress to follow-up with primary care doctor in the next 24 to 48 hours and for any worsening symptoms to return to the ER immediately Patient data External records reviewed:: [facility] previous records Clinical information provided by:: patient Social determinants that could affect healthcare access:: substance use Patient has the following chronic illnesses:: Substance abuse How is presenting disease/condition affected by chronic disease/condition?: caused by Evaluation data The following diagnostics were reviewed and interpreted by me:: other (specify) (N/A) Lab and/or radiology exams considered but not ordered:: Labs radiology obtain Interpretation Summary: Reviewed by me Medications / Prescriptions Medications or Prescriptions considered but not ordered:: Given no meds Medication administrations:: No meds Consultations Consultation(s) initiated? (list below): No Diagnosis Extremity Injury, Lower Differential Diagnosis: other (Leg pain homelessness, methamphetamine use) Most likely diagnosis given after review of the tests above:: Leg pain homelessness, methamphetamine use Admission Indicated Admission indicated?: not indicated Admission Request Was there a request for admission?: No Disposition Plan Disposition Plan: Discharge Discharge Attestation Discharge Attestation: The patient and all family members were given an opportunity to ask questions and understood the discharge instructions. Discharge instructions specifically effects, indications for sooner follow up or return to the emergency department, and the expected course of current diagnosis. Patient condition: Stable Discharge Plan Plan Patient Disposition: HOME (Self Care) Discharge Disposition comment: Stable Prescriptions/Referrals Prescriptions/Med Rec: No Action naproxen 500 mg tablet 500 mg PO BID PRN (Reason: pain) Qty: 30 0RF cyclobenzaprine 5 mg tablet 5 mg PO TID PRN (Reason: muscle spasm) Qty: 30 0RF naproxen 500 mg tablet 500 mg PO BID PRN (Reason: pain) Qty: 30 0RF baclofen 10 mg tablet 10 mg PO BID PRN (Reason: muscle spasm) Qty: 30 0RF ibuprofen 800 mg tablet 800 mg PO TID PRN (Reason: pain) Qty: 30 0RF ibuprofen 800 mg tablet 800 mg PO TID PRN (Reason: pain) Qty: 30 0RF ibuprofen 600 mg tablet 600 mg PO Q6H PRN (Reason: pain) Qty: 30 0RF ibuprofen 600 mg tablet 600 mg PO Q8H PRN (Reason: pain) Qty: 20 0RF acetaminophen 500 mg capsule 500 mg PO Q6H PRN (Reason: pain) Qty: 30 0RF lidocaine [Lidoderm] 5 % adhesive patch,medicated 2 patch topical QDAY PRN (Reason: pain) Qty: 30 0RF Rx Instructions: leave on most painful area for up to 12 hrs cyclobenzaprine 5 mg tablet 5 mg PO TID PRN (Reason: muscle spasm) Qty: 15 0RF naproxen 500 mg tablet 500 mg PO BID PRN (Reason: pain) Qty: 14 0RF sulfamethoxazole-trimethoprim [Bactrim DS] 800-160 mg tablet 1 tab PO BID Qty: 14 0RF naproxen 500 mg tablet 500 mg PO BID PRN (Reason: pain) Qty: 30 0RF tamsulosin [Flomax] 0.4 mg capsule 0.4 mg PO QDAY Qty: 30 0RF ibuprofen 600 mg tablet 600 mg PO Q6H PRN (Reason: pain) Qty: 30 0RF methocarbamol 500 mg tablet 1,000 mg PO Q8H PRN (Reason: pain) Qty: 30 0RF naproxen [Naprosyn] 500 mg tablet 500 mg PO BID Qty: 14 0RF ibuprofen 600 mg tablet 600 mg PO Q6H PRN (Reason: fever or pain) Qty: 30 0RF cyclobenzaprine 5 mg tablet 5 mg PO TID PRN (Reason: muscle spasm) Qty: 14 0RF naproxen 500 mg tablet 500 mg PO BID PRN (Reason: pain) Qty: 30 0RF cyclobenzaprine 5 mg tablet 5 mg PO TID PRN (Reason: muscle spasm) Qty: 30 0RF acetaminophen 500 mg capsule 500 mg PO Q6H PRN (Reason: pain) Qty: 30 0RF Problem List Clinical Impression: Homeless, Methamphetamine use Patient/Caregiver Discharge Instructions Education Materials: ED Drug Abuse Additional Instructions: Please follow up with your primary care doctor in the next 24-48hrs for any worsening symptoms return here immediately Print Language: Maori Stand Alone Forms: Tami Award Info., Patient Portal Info Letter PA/OCEAN EXPORT AGENT Supervising Physician PA/OCEAN EXPORT AGENT Supervising Physician: Dr. akbar
[2025-04-08 08:03] VITALS: BP 126/87; PULSE 83; RESP 18; TEMP 36.8; O2SAT 97
== END 2025-04-08 08:15 | disposition left against medical advice (07) ==
LOC: SERX 08:17
PROVIDERS: Emergency Provider Emergency Medicine; PCP Family Medicine
DX: F15.10 Other stimulant abuse, uncomplicated (principal); M79.604 Pain in right leg; M79.605 Pain in left leg; Z59.00 Homelessness unspecified; Z53.29 Procedure and treatment not carried out because of patient's decision for other reasons
CPT/HCPCS: 99281

== ENCOUNTER 2025-04-08 10:43 | Emergency (ER) | payer MEDICAID, SELFPAY ==
[2025-04-08 10:57] VITALS: PULSE 80; RESP 18; O2SAT 95
[2025-04-08 11:30] VITALS: BP 127/80; PULSE 80; RESP 18; TEMP 36.8; O2SAT 96
== END 2025-04-08 12:00 | disposition left against medical advice (07) ==
LOC: SERX 11:48
PROVIDERS: Emergency Provider Emergency Medicine; PCP Family Medicine
DX: Z53.21 Procedure and treatment not carried out due to patient leaving prior to being seen by health care provider (principal)
CPT/HCPCS: 99281

== ENCOUNTER 2025-04-08 17:50 | Emergency (ER) | payer MEDICAID, SELFPAY ==
--- NOTE | 2025-04-08 18:00 | PC.NURSE ---
no answer in lobby when called for vital signs
[2025-04-08 18:08] VITALS: PULSE 80; RESP 20; BMI 26.7
--- NOTE | 2025-04-08 18:32 | PC.NURSE ---
no answer in lobby when called for vital signs
--- NOTE | 2025-04-08 18:45 | PC.NURSE ---
no answer in lobby when called for vital signs
== END 2025-04-08 19:00 | disposition left against medical advice (07) ==
PROVIDERS: Emergency Provider Emergency Medicine
DX: Z53.21 Procedure and treatment not carried out due to patient leaving prior to being seen by health care provider (principal)

== ENCOUNTER 2025-04-09 06:50 | Emergency (ER) | payer MEDICAID, SELFPAY ==
[2025-04-09 07:01] VITALS: BP 128/85; PULSE 71; RESP 17; TEMP 36.7; O2SAT 98; BMI 26.7
--- NOTE | 2025-04-09 07:09 | PD.EDLOWEX ---
Lower Extremity Injury RME/HPI General Chief Complaint: Extremity Injury, Lower Stated Complaint: LEG PAIN Time Seen by Provider: 04/09/25 06:51 Arrival date/time: 04/09/25 06:50 44-year-old male who is homeless with frequent methamphetamine abuse presents requesting food. Patient reports it is really the only reason he is here. Limitations: no limitations Related Data Previous Rx's ?Medication ?Instructions ?Recorded sulfamethoxazole 800 1 tab PO BID #14 tabs 03/09/23 mg-trimethoprim 160 mg tablet (Bactrim DS) cyclobenzaprine 5 mg tablet 5 mg PO TID PRN muscle spasm #30 07/23/23 tabs naproxen 500 mg tablet 500 mg PO BID PRN pain #30 tabs 07/23/23 naproxen 500 mg tablet 500 mg PO BID PRN pain #30 tabs 08/08/23 tamsulosin 0.4 mg capsule (Flomax) 0.4 mg PO QDAY #30 caps 08/08/23 baclofen 10 mg tablet 10 mg PO BID PRN muscle spasm #30 08/14/23 tabs naproxen 500 mg tablet 500 mg PO BID PRN pain #30 tabs 08/14/23 ibuprofen 800 mg tablet 800 mg PO TID PRN pain #30 tabs 08/28/23 ibuprofen 600 mg tablet 600 mg PO Q6H PRN pain #30 tabs 01/27/24 methocarbamol 500 mg tablet 1,000 mg (2 x 500 mg) PO Q8H PRN 01/27/24 pain #30 tabs naproxen 500 mg tablet (Naprosyn) 500 mg PO BID #14 tabs 03/15/24 ibuprofen 800 mg tablet 800 mg PO TID PRN pain #30 tabs 04/02/24 cyclobenzaprine 5 mg tablet 5 mg PO TID PRN muscle spasm #14 04/07/24 tabs ibuprofen 600 mg tablet 600 mg PO Q6H PRN fever or pain 04/07/24 #30 tabs ibuprofen 600 mg tablet 600 mg PO Q6H PRN pain #30 tabs 04/07/24 cyclobenzaprine 5 mg tablet 5 mg PO TID PRN muscle spasm #30 04/11/24 tabs naproxen 500 mg tablet 500 mg PO BID PRN pain #30 tabs 04/11/24 ibuprofen 600 mg tablet 600 mg PO Q8H PRN pain #20 tabs 11/03/24 acetaminophen 500 mg capsule 500 mg PO Q6H PRN pain #30 caps 12/03/24 acetaminophen 500 mg capsule 500 mg PO Q6H PRN pain #30 caps 12/15/24 cyclobenzaprine 5 mg tablet 5 mg PO TID PRN muscle spasm #15 12/20/24 tabs lidocaine 5 % topical patch 2 patch topical QDAY PRN pain #30 12/20/24 (Lidoderm) ea naproxen 500 mg tablet 500 mg PO BID PRN pain #14 tabs 04/04/25 Allergies Allergy/AdvReac Type Severity Reaction Status Date / Time No Known Allergies Allergy Verified 04/09/25 06:55 Review of Systems Review of Systems Systems Reviewed: All systems reviewed, normal except as documented Constitutional Constitutional: Reports system reviewed and no additional complaints, except as documented, Denies fever(s) and Denies headache(s) Eyes Eyes: Reports system reviewed and no additional complaints, except as documented and Denies blurry vision ENT Ears, Nose, Mouth, and Throat: Reports system reviewed and no additional complaints, except as documented, Denies headache(s), Denies nasal congestion and Denies nasal discharge Cardiovascular Cardiovascular: Reports system reviewed and no additional complaints, except as documented, Denies chest pain and Denies dyspnea Respiratory Respiratory: Reports system reviewed and no additional complaints, except as documented, Denies chest congestion, Denies cough and Denies dyspnea Gastrointestinal Gastrointestinal: Reports system reviewed and no additional complaints, except as documented and Denies abdominal pain Musculoskeletal Musculoskeletal: Reports system reviewed and no additional complaints, except as documented and Reports arthralgias Integumentary/Breasts Skin/Breast: Reports system reviewed and no additional complaints, except as documented and Denies rash Neurologic Neurologic: Reports system reviewed and no additional complaints, except as documented, Reports as per HPI and Denies headache(s) Past Medical History Past Medical History NEUROLOGIC: Positive Cerebrovascular Accident; Negative Neurological Disorders CARDIAC: Positive Myocardial Infarction and Hypercholesterolemia; Negative Cardiac Disorders or Congestive Heart Failure RESPIRATORY: Negative Chronic Obstructive Pulmonary Disease (COPD) GASTROINTESTINAL: Negative Gastrointestinal Disorders GENITOURINARY: Negative Genitourinary Disorders or Renal Disease MUSCULOSKELETAL: Negative Musculoskeletal Disorders ENDOCRINE: Negative Endocrine Disorders, Diabetes Mellitus Type 1 or Diabetes Mellitus Type 2 HEMATOLOGIC: Negative Blood Disorders OTHER HISTORY: Negative Autoimmune Disease or Clostridium Difficile Social History SMOKING STATUS: Current some day smoker SUBSTANCE USE: methamphetamine ED Exam General Limitations: Present no limitations General appearance: Present alert and in no apparent distress Head Head exam: Present atraumatic Eye Eye exam: Present normal appearance, PERRL and EOMI; Absent conjunctival injection ENT ENT exam: Present normal exam, normal oropharynx and mucous membranes moist Neck Neck exam: Present normal inspection, full ROM and trachea midline Chest Chest inspection: Present normal inspection and symmetric chest wall rise Respiratory Respiratory exam: Present normal lung sounds bilaterally; Absent respiratory distress Cardiovascular Cardiovascular exam: Present regular rate, normal rhythm and normal heart sounds Abdominal Exam Abdominal exam: Present soft and normal bowel sounds; Absent distention, tenderness, guarding, rebound or rigidity Extremities Exam Extremities exam: Present normal inspection and full ROM Back Exam Back exam: Present normal inspection and full ROM Neurological Exam Neurological exam: Present alert, oriented X3, CN II-XII intact, normal gait and reflexes normal; Absent motor sensory deficit Psychiatric Psychiatric exam: Present normal affect and normal mood Skin Skin exam: Present warm, dry, intact and normal color; Absent rash Course Quality Measures none Vital Signs Vital signs: Vital Signs Temperature 98.0 F 04/09/25 07:01 Pulse Rate 71 04/09/25 07:01 Respiratory Rate 17 04/09/25 07:01 Blood Pressure 128/85 H 04/09/25 07:01 Pulse Oximetry (%) 98 04/09/25 07:01 Oxygen Delivery Method Room Air 04/09/25 07:01 O2 saturation 98% room air within normal limits Extremity Injury, Lower MDM Narrative MDM Narrative:: 44-year-old male who is homeless with frequent methamphetamine abuse presents requesting food. Patient reports it is really the only reason he is here. On exam patient well-appearing patient does not appear ill or toxic no acute distress Lab work and imaging not indicated at this time Patient was given food and drink and discharged Patient discharged home in no distress to follow-up with primary care doctor in the next 24 to 48 hours and for any worsening symptoms to return to the ER immediately Patient data External records reviewed:: [facility] previous records Clinical information provided by:: patient Social determinants that could affect healthcare access:: substance use Patient has the following chronic illnesses:: See history How is presenting disease/condition affected by chronic disease/condition?: caused by Evaluation data The following diagnostics were reviewed and interpreted by me:: other (specify) (N/A) Lab and/or radiology exams considered but not ordered:: Consider not ordered Interpretation Summary: N/A Medications / Prescriptions Medications or Prescriptions considered but not ordered:: Given Medication administrations:: Given Consultations Consultation(s) initiated? (list below): No Diagnosis Extremity Injury, Lower Differential Diagnosis: other (Leg pain, leg strain, leg sprain) Most likely diagnosis given after review of the tests above:: Leg pain Admission Indicated Admission indicated?: not indicated Admission Request Was there a request for admission?: No Disposition Plan Disposition Plan: Discharge Discharge Attestation Discharge Attestation: The patient and all family members were given an opportunity to ask questions and understood the discharge instructions. Discharge instructions specifically effects, indications for sooner follow up or return to the emergency department, and the expected course of current diagnosis. Patient condition: Stable Discharge Plan Plan Patient Disposition: HOME (Self Care) Discharge Disposition comment: Stable Prescriptions/Referrals Prescriptions/Med Rec: No Action naproxen 500 mg tablet 500 mg PO BID PRN (Reason: pain) Qty: 30 0RF cyclobenzaprine 5 mg tablet 5 mg PO TID PRN (Reason: muscle spasm) Qty: 30 0RF naproxen 500 mg tablet 500 mg PO BID PRN (Reason: pain) Qty: 30 0RF baclofen 10 mg tablet 10 mg PO BID PRN (Reason: muscle spasm) Qty: 30 0RF ibuprofen 800 mg tablet 800 mg PO TID PRN (Reason: pain) Qty: 30 0RF ibuprofen 800 mg tablet 800 mg PO TID PRN (Reason: pain) Qty: 30 0RF ibuprofen 600 mg tablet 600 mg PO Q6H PRN (Reason: pain) Qty: 30 0RF ibuprofen 600 mg tablet 600 mg PO Q8H PRN (Reason: pain) Qty: 20 0RF acetaminophen 500 mg capsule 500 mg PO Q6H PRN (Reason: pain) Qty: 30 0RF lidocaine [Lidoderm] 5 % adhesive patch,medicated 2 patch topical QDAY PRN (Reason: pain) Qty: 30 0RF Rx Instructions: leave on most painful area for up to 12 hrs cyclobenzaprine 5 mg tablet 5 mg PO TID PRN (Reason: muscle spasm) Qty: 15 0RF naproxen 500 mg tablet 500 mg PO BID PRN (Reason: pain) Qty: 14 0RF sulfamethoxazole-trimethoprim [Bactrim DS] 800-160 mg tablet 1 tab PO BID Qty: 14 0RF naproxen 500 mg tablet 500 mg PO BID PRN (Reason: pain) Qty: 30 0RF tamsulosin [Flomax] 0.4 mg capsule 0.4 mg PO QDAY Qty: 30 0RF ibuprofen 600 mg tablet 600 mg PO Q6H PRN (Reason: pain) Qty: 30 0RF methocarbamol 500 mg tablet 1,000 mg PO Q8H PRN (Reason: pain) Qty: 30 0RF naproxen [Naprosyn] 500 mg tablet 500 mg PO BID Qty: 14 0RF ibuprofen 600 mg tablet 600 mg PO Q6H PRN (Reason: fever or pain) Qty: 30 0RF cyclobenzaprine 5 mg tablet 5 mg PO TID PRN (Reason: muscle spasm) Qty: 14 0RF naproxen 500 mg tablet 500 mg PO BID PRN (Reason: pain) Qty: 30 0RF cyclobenzaprine 5 mg tablet 5 mg PO TID PRN (Reason: muscle spasm) Qty: 30 0RF acetaminophen 500 mg capsule 500 mg PO Q6H PRN (Reason: pain) Qty: 30 0RF Problem List Clinical Impression: Homeless, Methamphetamine use Patient/Caregiver Discharge Instructions Education Materials: ED Drug Abuse Additional Instructions: Please follow up with your primary care doctor in the next 24-48hrs for any worsening symptoms return here immediately Print Language: Emir[place] Stand Alone Forms: Tami Award Info., Patient Portal Info Letter PA/LEASING REPRESENTATIVE Supervising Physician PA/LEASING REPRESENTATIVE Supervising Physician: Dr akbar
== END 2025-04-09 07:27 | disposition home or self-care (01) ==
LOC: SERX 07:18
PROVIDERS: Emergency Provider Emergency Medicine; PCP Family Medicine
DX: F15.10 Other stimulant abuse, uncomplicated (principal); Z59.00 Homelessness unspecified
CPT/HCPCS: 99281

== ENCOUNTER 2025-04-09 17:15 | Emergency (ER) | payer MEDICAID, SELFPAY ==
--- NOTE | 2025-04-09 17:21 | EDNOTE_ITS ---
ED Extremity Problem RME/HPI General Chief complaint: Extremity Problem,Nontraumatic Stated complaint: MY LEGS HURT Time Seen by Provider: 04/09/25 17:17 Arrival date/time: 04/09/25 17:15 44-year-old male with history of methamphetamine use and homelessness with frequent trips to the ER presents emerged part today for complaints of bilateral leg pain reports he is hungry. Patient reports no chest pain or shortness of breath no headache dizziness weakness Limitations: no limitations Related Data Previous Rx's ?Medication ?Instructions ?Recorded sulfamethoxazole 800 1 tab PO BID #14 tabs mg-trimethoprim 160 mg tablet (Bactrim DS) cyclobenzaprine 5 mg tablet 5 mg PO TID PRN muscle spa sm #30 07/23/23 tabs naproxen 500 mg tablet 500 mg PO BID PRN pain #30 t abs 07/23/23 naproxen 500 mg tablet 500 mg PO BID PRN pain #30 t abs 08/08/23 tamsulosin 0.4 mg capsule (Flomax) 0.4 mg PO QDAY #30 caps 08/08/23 baclofen 10 mg tablet 10 mg PO BID PRN muscle spas m #30 08/14/23 tabs naproxen 500 mg tablet 500 mg PO BID PRN pain #30 t abs 08/14/23 ibuprofen 800 mg tablet 800 mg PO TID PRN pain #30 t abs 08/28/23 ibuprofen 600 mg tablet 600 mg PO Q6H PRN pain #30 t abs 01/27/24 methocarbamol 500 mg tablet 1,000 mg (2 x 500 mg) PO Q 8H PRN 01/27/24 pain #30 tabs naproxen 500 mg tablet (Naprosyn) 500 mg PO BID #14 ta bs 03/15/24 ibuprofen 800 mg tablet 800 mg PO TID PRN pain #30 t abs 04/02/24 cyclobenzaprine 5 mg tablet 5 mg PO TID PRN muscle spa sm #14 04/07/24 tabs ibuprofen 600 mg tablet 600 mg PO Q6H PRN fever or p ain 04/07/24 #30 tabs ibuprofen 600 mg tablet 600 mg PO Q6H PRN pain #30 t abs 04/07/24 cyclobenzaprine 5 mg tablet 5 mg PO TID PRN muscle spa sm #30 04/11/24 tabs naproxen 500 mg tablet 500 mg PO BID PRN pain #30 t abs 04/11/24 ibuprofen 600 mg tablet 600 mg PO Q8H PRN pain #20 t abs 11/03/24 acetaminophen 500 mg capsule 500 mg PO Q6H PRN pain #3 0 caps 12/03/24 acetaminophen 500 mg capsule 500 mg PO Q6H PRN pain #3 0 caps 12/15/24 cyclobenzaprine 5 mg tablet 5 mg PO TID PRN muscle spa sm #15 12/20/24 tabs lidocaine 5 % topical patch 2 patch topical QDAY PRN p ain #30 12/20/24 (Lidoderm) ea naproxen 500 mg tablet 500 mg PO BID PRN pain #14 t abs 04/04/25 Allergies Allergy/AdvReac Type Severity Reaction Status Date / Time No Known Allergies Allergy Verified 04/11/25 09:46 Review of Systems Review of Systems Systems Reviewed: All systems reviewed, normal except as documented Constitutional Constitutional: Reports system reviewed and no additional complaints, except as documented, Denies fever(s) and Denies headache(s) Eyes Eyes: Reports system reviewed and no additional complaints, except as documented and Denies blurry vision ENT Ears, Nose, Mouth, and Throat: Reports system reviewed and no additional complaints, except as documented, Denies headache(s), Denies nasal congestion and Denies nasal discharge Cardiovascular Cardiovascular: Reports system reviewed and no additional complaints, except as documented, Denies chest pain and Denies dyspnea Respiratory Respiratory: Reports system reviewed and no additional complaints, except as documented, Denies chest congestion, Denies cough and Denies dyspnea Gastrointestinal Gastrointestinal: Reports system reviewed and no additional complaints, except as documented and Denies abdominal pain Musculoskeletal Musculoskeletal: Reports system reviewed and no additional complaints, except as documented, Reports arthralgias, Denies back pain, Denies numbness, Denies stiffness and Denies tingling Integumentary/Breasts Skin/Breast: Reports system reviewed and no additional complaints, except as documented and Denies rash Neurologic Neurologic: Reports system reviewed and no additional complaints, except as documented, Reports as per HPI, Denies headache(s), Denies numbness and Denies tingling Past Medical History Past Medical History NEUROLOGIC: Positive Cerebrovascular Accident; Negative Neurological Disorders CARDIAC: Positive Myocardial Infarction and Hypercholesterolemia; Negative Cardiac Disorders or Congestive Heart Failure RESPIRATORY: Negative Chronic Obstructive Pulmonary Disease (COPD) GASTROINTESTINAL: Negative Gastrointestinal Disorders GENITOURINARY: Negative Genitourinary Disorders or Renal Disease MUSCULOSKELETAL: Negative Musculoskeletal Disorders ENDOCRINE: Negative Endocrine Disorders, Diabetes Mellitus Type 1 or Diabetes Mellitus Type 2 HEMATOLOGIC: Negative Blood Disorders OTHER HISTORY: Negative Autoimmune Disease or Clostridium Difficile Social History SMOKING STATUS: Light (< 1 pack/day) SUBSTANCE USE: methamphetamine ED Exam General Limitations: Present no limitations General appearance: Present alert and in no apparent distress Head Head exam: Present atraumatic Eye Eye exam: Present normal appearance, PERRL and EOMI ENT ENT exam: Present normal exam, normal oropharynx and mucous membranes moist Neck Neck exam: Present normal inspection, full ROM and trachea midline Chest Chest inspection: Present normal inspection and symmetric chest wall rise Respiratory Respiratory exam: Present normal lung sounds bilaterally Cardiovascular Cardiovascular exam: Present regular rate, normal rhythm and normal heart sounds Abdominal Exam Abdominal exam: Present soft and normal bowel sounds Extremities Exam Extremities exam: Present normal inspection and full ROM Back Exam Back exam: Present normal inspection and full ROM Neurological Exam Neurological exam: Present alert, oriented X3 and CN II-XII intact Psychiatric Psychiatric exam: Present normal affect and normal mood Skin Skin exam: Present warm, dry, intact and normal color Course Quality Measures none Orders Category Date Time Status Ibuprofen Tab [Motrin Tab] Med 04/09/25 17:18 Discontinued 800 mg PO X1 ONE Vital Signs Vital signs: Vital Signs Temperature 98.0 F 04/09/25 17:25 Pulse Rate 108 H 04/09/25 17:25 Respiratory Rate 20 04/09/25 17:25 Blood Pressure 148/88 H 04/09/25 17:25 Pulse Oximetry (%) 97 04/09/25 17:25 Oxygen Delivery Method Room Air 04/09/25 17:25 O2 saturation 97% on room air within normal limits Extremity Problem MDM Narrative MDM Narrative:: 44-year-old male with history of methamphetamine use and homelessness with frequent trips to the ER presents emerged part today for complaints of bilateral leg pain reports he is hungry. Patient reports no chest pain or shortness of breath no headache dizziness weakness On exam patient well-appearing patient does not appear ill or toxic no acute distress Patient given food and pain medication Patient discharged home in no distress to follow-up with primary care doctor in the next 24 to 48 hours and for any worsening symptoms to return to the ER immediately Patient data External records reviewed:: [facility] previous records Clinical information provided by:: patient Social determinants that could affect healthcare access:: substance use Patient has the following chronic illnesses:: Substance abuse, homelessness How is presenting disease/condition affected by chronic disease/condition?: caused by Evaluation data The following diagnostics were reviewed and interpreted by me:: other (specify) Lab and/or radiology exams considered but not ordered:: Consider not indicated Interpretation Summary: N/A Medications / Prescriptions Medications or Prescriptions considered but not ordered:: Given Medication administrations:: Medication Administration History Discontinued Medications Ibuprofen (Ibuprofen Tab 400 Mg Tablet) 800 mg PO X1 ONE Stop: 04/09/25 17:19 Last Admin: 04/09/25 17:56 Dose: 800 mg Documented By: Given Consultations Consultation(s) initiated? (list below): No Diagnosis Extremity Problem Differential Diagnosis: herpes zoster and superficial thrombophlebitis Most likely diagnosis given after review of the tests above:: Back pain, leg pain, homelessness, methamphetamine use Admission Indicated Admission indicated?: not indicated Admission Request Was there a request for admission?: No Disposition Plan Disposition Plan: Discharge Discharge Attestation Discharge Attestation: The patient and all family members were given an opportunity to ask questions and understood the discharge instructions. Discharge instructions specifically effects, indications for sooner follow up or return to the emergency department, and the expected course of current diagnosis. Patient condition: Stable Discharge Plan Plan Patient Disposition: HOME (Self Care) Discharge Disposition comment: Stable Prescriptions/Referrals Prescriptions/Med Rec: No Action naproxen 500 mg tablet 500 mg PO BID PRN (Reason: pain) Qty: 30 0RF cyclobenzaprine 5 mg tablet 5 mg PO TID PRN (Reason: muscle spasm) Qty: 30 0RF naproxen 500 mg tablet 500 mg PO BID PRN (Reason: pain) Qty: 30 0RF baclofen 10 mg tablet 10 mg PO BID PRN (Reason: muscle spasm) Qty: 30 0RF ibuprofen 800 mg tablet 800 mg PO TID PRN (Reason: pain) Qty: 30 0RF ibuprofen 800 mg tablet 800 mg PO TID PRN (Reason: pain) Qty: 30 0RF ibuprofen 600 mg tablet 600 mg PO Q6H PRN (Reason: pain) Qty: 30 0RF ibuprofen 600 mg tablet 600 mg PO Q8H PRN (Reason: pain) Qty: 20 0RF acetaminophen 500 mg capsule 500 mg PO Q6H PRN (Reason: pain) Qty: 30 0RF lidocaine [Lidoderm] 5 % adhesive patch,medicated 2 patch topical QDAY PRN (Reason: pain) Qty: 30 0RF Rx Instructions: leave on most painful area for up to 12 hrs cyclobenzaprine 5 mg tablet 5 mg PO TID PRN (Reason: muscle spasm) Qty: 15 0RF naproxen 500 mg tablet 500 mg PO BID PRN (Reason: pain) Qty: 14 0RF sulfamethoxazole-trimethoprim [Bactrim DS] 800-160 mg tablet 1 tab PO BID Qty: 14 0RF naproxen 500 mg tablet 500 mg PO BID PRN (Reason: pain) Qty: 30 0RF tamsulosin [Flomax] 0.4 mg capsule 0.4 mg PO QDAY Qty: 30 0RF ibuprofen 600 mg tablet 600 mg PO Q6H PRN (Reason: pain) Qty: 30 0RF methocarbamol 500 mg tablet 1,000 mg PO Q8H PRN (Reason: pain) Qty: 30 0RF naproxen [Naprosyn] 500 mg tablet 500 mg PO BID Qty: 14 0RF ibuprofen 600 mg tablet 600 mg PO Q6H PRN (Reason: fever or pain) Qty: 30 0RF cyclobenzaprine 5 mg tablet 5 mg PO TID PRN (Reason: muscle spasm) Qty: 14 0RF naproxen 500 mg tablet 500 mg PO BID PRN (Reason: pain) Qty: 30 0RF cyclobenzaprine 5 mg tablet 5 mg PO TID PRN (Reason: muscle spasm) Qty: 30 0RF acetaminophen 500 mg capsule 500 mg PO Q6H PRN (Reason: pain) Qty: 30 0RF Problem List Clinical Impression: Chronic leg pain, Homeless, Methamphetamine use Patient/Caregiver Discharge Instructions Education Materials: ED RICE Additional Instructions: Please follow up with your primary care doctor in the next 24-48hrs for any worsening symptoms return here immediately Print Language: Vietnamese Stand Alone Forms: Tami Award Info., Patient Portal Info Letter PA/SEWER PIPE SORTER Supervising Physician PA/SEWER PIPE SORTER Supervising Physician: Dr akbar
[2025-04-09 17:25] VITALS: BP 148/88; PULSE 108; RESP 20; TEMP 36.7; O2SAT 97
[2025-04-09] MEDS: IBUPROFEN TAB 400 MG TABLET 800 MG PO (17:56)
== END 2025-04-09 18:28 | disposition home or self-care (01) ==
LOC: SERX 17:35
PROVIDERS: Emergency Provider Emergency Medicine
DX: G89.29 Other chronic pain (principal); M79.605 Pain in left leg; M79.604 Pain in right leg; Z59.00 Homelessness unspecified; F15.90 Other stimulant use, unspecified, uncomplicated
CPT/HCPCS: 99282; A9270

== ENCOUNTER 2025-04-09 20:34 | Emergency (ER) | payer MEDICAID, SELFPAY ==
[2025-04-09 20:34] VITALS: BMI 26.7
[2025-04-09 22:24] VITALS: BP 134/84; PULSE 78; RESP 16; TEMP 36.6; O2SAT 98
--- NOTE | 2025-04-09 22:48 | PC.NURSE ---
PATIENT WALKED OUT OF THE ED LOBBY AT THIS TIME. STAFF WENT OUTSIDE AND CALLED PATIENT, NO ANSWER RECEIVED.
== END 2025-04-09 23:19 | disposition left against medical advice (07) ==
PROVIDERS: Emergency Provider Emergency Medicine
DX: Z53.21 Procedure and treatment not carried out due to patient leaving prior to being seen by health care provider (principal)
CPT/HCPCS: 99281

== ENCOUNTER 2025-04-10 08:38 | Emergency (ER) | payer MEDICAID, SELFPAY ==
[2025-04-10 08:39] VITALS: PULSE 88; RESP 16; O2SAT 98
[2025-04-10 08:50] VITALS: BP 120/81; PULSE 82; RESP 16; TEMP 37; O2SAT 95; BMI 26.7
--- NOTE | 2025-04-10 08:50 | EDNOTE_ITS ---
Lower Extremity Injury RME/HPI General Chief Complaint: Extremity Injury, Lower Stated Complaint: BILATERAL LEG PAIN Time Seen by Provider: 04/10/25 08:42 Source: patient Arrival date/time: 04/10/25 08:38 44-year-old male with a history of chronic leg pain presents to the emergency room with a chief complaint of bilateral leg pain Mode of arrival: ambulatory Limitations: no limitations Related Data Previous Rx's ?Medication ?Instructions ?Recorded sulfamethoxazole 800 1 tab PO BID #14 tabs mg-trimethoprim 160 mg tablet (Bactrim DS) cyclobenzaprine 5 mg tablet 5 mg PO TID PRN muscle spa sm #30 07/23/23 tabs naproxen 500 mg tablet 500 mg PO BID PRN pain #30 t abs 07/23/23 naproxen 500 mg tablet 500 mg PO BID PRN pain #30 t abs 08/08/23 tamsulosin 0.4 mg capsule (Flomax) 0.4 mg PO QDAY #30 caps 08/08/23 baclofen 10 mg tablet 10 mg PO BID PRN muscle spas m #30 08/14/23 tabs naproxen 500 mg tablet 500 mg PO BID PRN pain #30 t abs 08/14/23 ibuprofen 800 mg tablet 800 mg PO TID PRN pain #30 t abs 08/28/23 ibuprofen 600 mg tablet 600 mg PO Q6H PRN pain #30 t abs 01/27/24 methocarbamol 500 mg tablet 1,000 mg (2 x 500 mg) PO Q 8H PRN 01/27/24 pain #30 tabs naproxen 500 mg tablet (Naprosyn) 500 mg PO BID #14 ta bs 03/15/24 ibuprofen 800 mg tablet 800 mg PO TID PRN pain #30 t abs 04/02/24 cyclobenzaprine 5 mg tablet 5 mg PO TID PRN muscle spa sm #14 04/07/24 tabs ibuprofen 600 mg tablet 600 mg PO Q6H PRN fever or p ain 04/07/24 #30 tabs ibuprofen 600 mg tablet 600 mg PO Q6H PRN pain #30 t abs 04/07/24 cyclobenzaprine 5 mg tablet 5 mg PO TID PRN muscle spa sm #30 04/11/24 tabs naproxen 500 mg tablet 500 mg PO BID PRN pain #30 t abs 04/11/24 ibuprofen 600 mg tablet 600 mg PO Q8H PRN pain #20 t abs 11/03/24 acetaminophen 500 mg capsule 500 mg PO Q6H PRN pain #3 0 caps 12/03/24 acetaminophen 500 mg capsule 500 mg PO Q6H PRN pain #3 0 caps 12/15/24 cyclobenzaprine 5 mg tablet 5 mg PO TID PRN muscle spa sm #15 12/20/24 tabs lidocaine 5 % topical patch 2 patch topical QDAY PRN p ain #30 12/20/24 (Lidoderm) ea naproxen 500 mg tablet 500 mg PO BID PRN pain #14 t abs 04/04/25 Allergies Allergy/AdvReac Type Severity Reaction Status Date / Time No Known Allergies Allergy Verified 04/09/25 20:34 Review of Systems Review of Systems Systems Reviewed: All systems reviewed, normal except as documented Constitutional Constitutional: Reports system reviewed and no additional complaints, except as documented, Denies fatigue, Denies fever(s), Denies headache(s) and Denies weakness Eyes Eyes: Reports system reviewed and no additional complaints, except as documented, Denies blurry vision and Denies change in vision ENT Ears, Nose, Mouth, and Throat: Reports system reviewed and no additional complaints, except as documented, Denies otalgia, Denies headache(s), Denies nasal congestion, Denies throat swelling and Denies vertigo Cardiovascular Cardiovascular: Reports system reviewed and no additional complaints, except as documented, Denies chest pain, Denies dyspnea and Denies dyspnea on exertion Respiratory Respiratory: Reports system reviewed and no additional complaints, except as documented, Denies chest congestion, Denies cough, Denies dyspnea, Denies dyspnea on exertion and Denies wheezing Gastrointestinal Gastrointestinal: Reports system reviewed and no additional complaints, except as documented, Denies abdominal pain, Denies cramping, Denies nausea and Denies vomiting Genitourinary Genitourinary: Reports system reviewed and no additional complaints, except as documented, Denies dysuria and Denies hematuria Musculoskeletal Musculoskeletal: Reports system reviewed and no additional complaints, except as documented, Reports arthralgias and Denies back pain Integumentary/Breasts Skin/Breast: Reports system reviewed and no additional complaints, except as documented and Denies wounds Neurologic Neurologic: Reports system reviewed and no additional complaints, except as documented, Denies confusion, Denies headache(s), Denies lack of coordination, Denies vertigo and Denies weakness Psychiatric Psychiatric: Reports system reviewed and no additional complaints, except as documented, Denies anxiety, Denies confusion, Denies depression, Denies paranoia, Denies suicidal ideation and Denies tactile hallucinations Endocrine Endocrine: Reports system reviewed and no additional complaints, except as documented and Denies fatigue Hematologic/Lymphatic Hematologic/Lymphatic: Reports system reviewed and no additional complaints, except as documented and Denies lymphadenopathy Allergic/Immunologic Allergic/Immunologic: Reports system reviewed and no additional complaints, except as documented, Denies throat swelling, Denies urticaria and Denies wheezing Past Medical History Past Medical History NEUROLOGIC: Positive Cerebrovascular Accident; Negative Neurological Disorders CARDIAC: Positive Myocardial Infarction and Hypercholesterolemia; Negative Cardiac Disorders or Congestive Heart Failure RESPIRATORY: Negative Chronic Obstructive Pulmonary Disease (COPD) GASTROINTESTINAL: Negative Gastrointestinal Disorders GENITOURINARY: Negative Genitourinary Disorders or Renal Disease MUSCULOSKELETAL: Negative Musculoskeletal Disorders ENDOCRINE: Negative Endocrine Disorders, Diabetes Mellitus Type 1 or Diabetes Mellitus Type 2 HEMATOLOGIC: Negative Blood Disorders OTHER HISTORY: Negative Autoimmune Disease or Clostridium Difficile Social History SMOKING STATUS: Current every day smoker SUBSTANCE USE: methamphetamine ED Exam General Limitations: Present no limitations General appearance: Present alert and in no apparent distress Head Head exam: Present atraumatic Eye Eye exam: Present normal appearance, PERRL and EOMI ENT ENT exam: Present normal exam, normal oropharynx and mucous membranes moist Neck Neck exam: Present normal inspection, full ROM and trachea midline Chest Chest inspection: Present normal inspection and symmetric chest wall rise Respiratory Respiratory exam: Present normal lung sounds bilaterally Cardiovascular Cardiovascular exam: Present regular rate, normal rhythm and normal heart sounds Abdominal Exam Abdominal exam: Present soft and normal bowel sounds Extremities Exam Extremities exam: Present normal inspection and full ROM Back Exam Back exam: Present normal inspection and full ROM Neurological Exam Neurological exam: Present alert, oriented X3 and CN II-XII intact Psychiatric Psychiatric exam: Present normal affect and normal mood Skin Skin exam: Present warm, dry, intact and normal color Course Quality Measures none Orders Category Date Time Status Acetaminophen Tab [Tylenol Tab] Med 04/10/25 08:42 Discontinued 650 mg PO X1 ONE Extremity Injury, Lower MDM Narrative MDM Narrative:: 44-year-old male with a history of chronic leg pain presents to the emergency room with a chief complaint of bilateral leg pain Patient is hemodynamically stable and in no apparent distress. Patient has a normal shuffling gait. Patient is a homeless frequent flyer and is here multiple times and has had multiple full workups. Patient is here an average of 3 times a week. I spoke to the patient and told him if there is any new signs or symptoms and he denies any new symptoms. Patient states he is here for sandwich and pain medication. Patient does not follow-up with his primary care provider. Patient was discharged and educated to follow-up with primary care provider in the next 24 to 48 hours and return to the emergency room for any evidence of worsening signs or symptoms Patient data External records reviewed:: [facility] previous records Clinical information provided by:: patient Social determinants that could affect healthcare access:: none Patient has the following chronic illnesses:: No chronic illness How is presenting disease/condition affected by chronic disease/condition?: no chronic disease Evaluation data The following diagnostics were reviewed and interpreted by me:: lab results and radiology exam(s) Lab and/or radiology exams considered but not ordered:: Labs and radiology exams considered and ordered Interpretation Summary: N/A Medications / Prescriptions Medications or Prescriptions considered but not ordered:: Medication given Medication administrations:: Medication Administration History Discontinued Medications Acetaminophen (Acetaminophen 325 Mg Tablet) 650 mg PO X1 ONE Stop: 04/10/25 08:43 Medication given Consultations Consultation(s) initiated? (list below): No Diagnosis Extremity Injury, Lower Differential Diagnosis: other (Chronic leg pain) Most likely diagnosis given after review of the tests above:: Chronic leg pain Admission Indicated Admission indicated?: not indicated Admission Request Was there a request for admission?: No Disposition Plan Disposition Plan: Discharge Discharge Attestation Discharge Attestation: The patient and all family members were given an opportunity to ask questions and understood the discharge instructions. Discharge instructions specifically effects, indications for sooner follow up or return to the emergency department, and the expected course of current diagnosis. Patient condition: Stable Discharge Plan Plan Patient Disposition: HOME (Self Care) Discharge Disposition comment: Stable Prescriptions/Referrals Prescriptions/Med Rec: No Action naproxen 500 mg tablet 500 mg PO BID PRN (Reason: pain) Qty: 30 0RF cyclobenzaprine 5 mg tablet 5 mg PO TID PRN (Reason: muscle spasm) Qty: 30 0RF naproxen 500 mg tablet 500 mg PO BID PRN (Reason: pain) Qty: 30 0RF baclofen 10 mg tablet 10 mg PO BID PRN (Reason: muscle spasm) Qty: 30 0RF ibuprofen 800 mg tablet 800 mg PO TID PRN (Reason: pain) Qty: 30 0RF ibuprofen 800 mg tablet 800 mg PO TID PRN (Reason: pain) Qty: 30 0RF ibuprofen 600 mg tablet 600 mg PO Q6H PRN (Reason: pain) Qty: 30 0RF ibuprofen 600 mg tablet 600 mg PO Q8H PRN (Reason: pain) Qty: 20 0RF acetaminophen 500 mg capsule 500 mg PO Q6H PRN (Reason: pain) Qty: 30 0RF lidocaine [Lidoderm] 5 % adhesive patch,medicated 2 patch topical QDAY PRN (Reason: pain) Qty: 30 0RF Rx Instructions: leave on most painful area for up to 12 hrs cyclobenzaprine 5 mg tablet 5 mg PO TID PRN (Reason: muscle spasm) Qty: 15 0RF naproxen 500 mg tablet 500 mg PO BID PRN (Reason: pain) Qty: 14 0RF sulfamethoxazole-trimethoprim [Bactrim DS] 800-160 mg tablet 1 tab PO BID Qty: 14 0RF naproxen 500 mg tablet 500 mg PO BID PRN (Reason: pain) Qty: 30 0RF tamsulosin [Flomax] 0.4 mg capsule 0.4 mg PO QDAY Qty: 30 0RF ibuprofen 600 mg tablet 600 mg PO Q6H PRN (Reason: pain) Qty: 30 0RF methocarbamol 500 mg tablet 1,000 mg PO Q8H PRN (Reason: pain) Qty: 30 0RF naproxen [Naprosyn] 500 mg tablet 500 mg PO BID Qty: 14 0RF ibuprofen 600 mg tablet 600 mg PO Q6H PRN (Reason: fever or pain) Qty: 30 0RF cyclobenzaprine 5 mg tablet 5 mg PO TID PRN (Reason: muscle spasm) Qty: 14 0RF naproxen 500 mg tablet 500 mg PO BID PRN (Reason: pain) Qty: 30 0RF cyclobenzaprine 5 mg tablet 5 mg PO TID PRN (Reason: muscle spasm) Qty: 30 0RF acetaminophen 500 mg capsule 500 mg PO Q6H PRN (Reason: pain) Qty: 30 0RF Problem List Clinical Impression: Chronic leg pain Patient/Caregiver Discharge Instructions Education Materials: ED Chronic Pain Additional Instructions: Please follow-up with your primary care provider in the next 24 to 48 hours For any evidence of worsening signs or symptoms return to the emergency room immediately Print Language: Uzbek Stand Alone Forms: Tami Award Info., Patient Portal Info Letter PA/GEOPHYSICAL SUPPORT SPECIALIST Supervising Physician PA/GEOPHYSICAL SUPPORT SPECIALIST Supervising Physician: Dr. Ramsey
[2025-04-10] MEDS: ACETAMINOPHEN 325 MG TABLET 650 MG PO (09:06)
== END 2025-04-10 09:20 | disposition home or self-care (01) ==
PROVIDERS: Emergency Provider Family Medicine
DX: M79.604 Pain in right leg (principal); M79.605 Pain in left leg; G89.29 Other chronic pain; Z59.00 Homelessness unspecified
CPT/HCPCS: 99282; A9270

== ENCOUNTER 2025-04-10 10:26 | Emergency (ER) | payer MEDICAID, SELFPAY ==
[2025-04-10 10:27] VITALS: PULSE 87; O2SAT 97
[2025-04-10 11:17] VITALS: BP 118/82; PULSE 77; RESP 18; TEMP 36.9; O2SAT 99; BMI 26.7
--- NOTE | 2025-04-10 11:28 | PD.EDRME ---
Rapid Medical Screening Exam E Arrival date/time: 04/10/25 10:26 44-year-old male with a history of chronic back pain, methamphetamine abuse, presents to the emergency room with a chief complaint of bilateral leg pain. Due to the patient's reoccurring visits and complaints a workup was ordered and social service technician was consulted and they will follow-up with the patient for further resources I have greeted and performed a focused initial assessment of this patient. A comprehensive ED assessment and evaluation of the patient, analysis of all test results, and completion of the medical decision making process will be conducted by additional ED providers. Chief Complaint: Extremity Injury, Lower Time Seen by Provider: 04/10/25 11:10 Vital signs: Vital Signs Temperature 98.4 F 04/10/25 11:17 Pulse Rate 77 04/10/25 11:17 Respiratory Rate 18 04/10/25 11:17 Blood Pressure 118/82 04/10/25 11:17 Pulse Oximetry (%) 99 04/10/25 11:17 Oxygen Delivery Method Room Air 04/10/25 11:17 Vital signs reviewed by provider: Yes
[2025-04-10 12:24] LABS: Basophils % (Auto) 0 % (0-2.5); Eosinophils # (Auto) 0.2 Thou/mm3 (0.0-0.5); Eosinophils % (Auto) 3 % (0-10); Hematocrit 39.4 % (41.0-53.0); Hemoglobin 13.6 g/dL (13.5-16.0); Immature Granulocytes % (Auto) 0 % (0-0); Immature Granulocytes Auto 0.02 Thou/mm3 (0.00-0.00); Lymphocytes # (Auto) 0.4 Thou/mm3 (1.0-4.8); Lymphocytes % (Auto) 6 % (10-50); Mean Corpuscular HGB Conc 34.5 g/dl (31.0-37.0); Mean Corpuscular Hemoglobin 30.8 pg (25.0-35.0); Mean Corpuscular Volume 89 fL (80-100); Monocytes # (Auto) 0.3 Thou/mm3 (0.0-0.8); Monocytes % (Auto) 4 % (0-12); Neutrophils # (Auto) 6.2 Thou/mm3 (1.8-7.7); Neutrophils % (Auto) 87 % (37-80); Nucleated Red Blood Cell % 0 /100 WBC (0); Platelet Count 219 Thou/mm3 (140-440); RDW Standard Deviation 43.2 fL (35.1-43.9); Red Blood Count 4.41 Miln/mm3 (4.50-5.90); White Blood Count 7.1 Thou/mm3 (3.8-10.6)
[2025-04-10 12:41] LABS: Alanine Aminotransferase 13 U/L (10-49); Albumin, Serum 4.1 gm/dL (3.5-5.0); Albumin/Globulin Ratio 1.6 (1.2-2.2); Alkaline Phosphatase 76 U/L (46-116); Anion Gap 8 (7-16); Aspartate Amino Transferase 14 U/L (0-34); BUN/Creatinine Ratio 21 Ratio (12-20); Bilirubin,Total 0.7 mg/dL (0.3-1.2); Blood Urea Nitrogen 17 mg/dL (9-23); Calcium 8.1 mg/dL (8.3-10.6); Calcium (Corrected) 8.1 mg/dL (8.5-10.1); Carbon Dioxide 25.4 mMol/L (20.0-31.0); Chloride 108 mMol/L (98-107); Creatine Kinase 84 U/L (34-171); Creatinine (Component) 0.8 mg/dL (0.6-1.3); Estimated Creatinine Clearance 107.9 mL/min (>60); Globulin 2.5 gm/dL (2.3-3.5); Glucose 91 mg/dL (74-106); Magnesium 2.1 mg/dL (1.6-2.6); Osmolality,Calculated 282 (275-295); Potassium 4.2 mMol/L (3.4-5.1); Sodium 141 mMol/L (136-145); Total Protein 6.6 gm/dL (5.7-8.2); eGFR > 60 See Note
--- NOTE | 2025-04-10 12:46 | PC.NURSE ---
no answer in lobby when called for a room
--- NOTE | 2025-04-10 13:46 | PC.NURSE ---
no answer in lobby when called for a room
--- NOTE | 2025-04-10 14:00 | PC.NURSE ---
no answer in lobby when called for a room
== END 2025-04-10 11:30 | disposition left against medical advice (07) ==
LOC: SERX 11:19
PROVIDERS: Nurse Practitioner Family; Emergency Provider Family Medicine
DX: S89.92XA Unspecified injury of left lower leg, initial encounter (principal); S89.91XA Unspecified injury of right lower leg, initial encounter; X58.XXXA Exposure to other specified factors, initial encounter; Z53.29 Procedure and treatment not carried out because of patient's decision for other reasons
CPT/HCPCS: 36415; 80053; 80307; 81001; 82550; 83735; 85025; 99281

== ENCOUNTER 2025-04-10 14:40 | Emergency (ER) | payer MEDICAID, SELFPAY ==
[2025-04-10 14:57] VITALS: BP 143/67; PULSE 100; RESP 18; TEMP 36.6; O2SAT 97
--- NOTE | 2025-04-10 15:19 | EDNOTE_ITS ---
ED General RME/HPI General Stated complaint: BILATERAL LEG PAIN Time Seen by Provider: 04/10/25 14:55 Arrival date/time: 04/10/25 14:40 RME / HPI RME / HPI narrative: 44-year-old male patient homeless, who is frequent to this emergency room for the same complaints, came in for evaluation regarding leg pain. Patient has been having chronic leg pain, described as dull ache, severity mild. Patient is ambulatory. Denies any other complaints patient is asking for pain medication. Patient is ambulatory. Related Data Previous Rx's ?Medication ?Instructions ?Recorded sulfamethoxazole 800 1 tab PO BID #14 tabs mg-trimethoprim 160 mg tablet (Bactrim DS) cyclobenzaprine 5 mg tablet 5 mg PO TID PRN muscle spa sm #30 07/23/23 tabs naproxen 500 mg tablet 500 mg PO BID PRN pain #30 t abs 07/23/23 naproxen 500 mg tablet 500 mg PO BID PRN pain #30 t abs 08/08/23 tamsulosin 0.4 mg capsule (Flomax) 0.4 mg PO QDAY #30 caps 08/08/23 baclofen 10 mg tablet 10 mg PO BID PRN muscle spas m #30 08/14/23 tabs naproxen 500 mg tablet 500 mg PO BID PRN pain #30 t abs 08/14/23 ibuprofen 800 mg tablet 800 mg PO TID PRN pain #30 t abs 08/28/23 ibuprofen 600 mg tablet 600 mg PO Q6H PRN pain #30 t abs 01/27/24 methocarbamol 500 mg tablet 1,000 mg (2 x 500 mg) PO Q 8H PRN 01/27/24 pain #30 tabs naproxen 500 mg tablet (Naprosyn) 500 mg PO BID #14 ta bs 03/15/24 ibuprofen 800 mg tablet 800 mg PO TID PRN pain #30 t abs 04/02/24 cyclobenzaprine 5 mg tablet 5 mg PO TID PRN muscle spa sm #14 04/07/24 tabs ibuprofen 600 mg tablet 600 mg PO Q6H PRN fever or p ain 04/07/24 #30 tabs ibuprofen 600 mg tablet 600 mg PO Q6H PRN pain #30 t abs 04/07/24 cyclobenzaprine 5 mg tablet 5 mg PO TID PRN muscle spa sm #30 04/11/24 tabs naproxen 500 mg tablet 500 mg PO BID PRN pain #30 t abs 04/11/24 ibuprofen 600 mg tablet 600 mg PO Q8H PRN pain #20 t abs 11/03/24 acetaminophen 500 mg capsule 500 mg PO Q6H PRN pain #3 0 caps 12/03/24 acetaminophen 500 mg capsule 500 mg PO Q6H PRN pain #3 0 caps 12/15/24 cyclobenzaprine 5 mg tablet 5 mg PO TID PRN muscle spa sm #15 12/20/24 tabs lidocaine 5 % topical patch 2 patch topical QDAY PRN p ain #30 12/20/24 (Lidoderm) ea naproxen 500 mg tablet 500 mg PO BID PRN pain #14 t abs 04/04/25 Allergies Allergy/AdvReac Type Severity Reaction Status Date / Time No Known Allergies Allergy Verified 04/09/25 20:34 Review of Systems Review of Systems Narrative Review of Systems: Review of system reviewed and within normal limits except mentioned in HPI ED Exam Narrative Physical exam: VITAL SIGNS: Reviewed. GENERAL APPEARANCE: Alert and interactive, follows commands, no acute distress, unkept HEAD AND FACE: Non-traumatic. ENT: PERRL, pink conjunctivitis, eyelid no trauma, Mucous membrane moist. NECK: Supple, nontender, no nuchal rigidity. CHEST: No tenderness, no crepitus, no paradoxical movement, no retractions. LUNGS: Clear, well ventilated, symmetric, no rales, no wheezing, no ronchi, no stridor, good breath sounds bilaterally. HEART: Regular rate, regular rhythm, no murmur, no gallops. ABDOMEN: Soft, positive bowel sounds, nondistended, no guarding, nontender, no rebound, no masses, RECTAL: Deferred. GENITAL: Deferred. NEUROLOGICAL: Gross motor function intact sensory function intact, Appropriate for age. MUSCULOSKELETAL: low back nontender, full range of motion. EXTREMITIES: Bilateral lower leg pain, no redness no swelling, full range of motion. SKIN: Color pink, dry, no rash, no lacerations, no abrasions, no contusions. LYMPHATICS: Deferred. Course Quality Measures none Orders Category Date Time Status Ibuprofen Tab [Motrin Tab] Med 04/10/25 15:17 Discontinued 800 mg PO X1 ONE Vital Signs Vital signs: Vital Signs Temperature 98 F 04/10/25 14:57 Pulse Rate 100 04/10/25 14:57 Respiratory Rate 18 04/10/25 14:57 Blood Pressure 143/67 H 04/10/25 14:57 Pulse Oximetry (%) 97 04/10/25 14:57 Oxygen Delivery Method Room Air 04/10/25 14:57 Discharge Plan Plan Patient Disposition: HOME (Self Care) Discharge Disposition comment: Stable Prescriptions/Referrals Prescriptions/Med Rec: No Action naproxen 500 mg tablet 500 mg PO BID PRN (Reason: pain) Qty: 30 0RF cyclobenzaprine 5 mg tablet 5 mg PO TID PRN (Reason: muscle spasm) Qty: 30 0RF naproxen 500 mg tablet 500 mg PO BID PRN (Reason: pain) Qty: 30 0RF baclofen 10 mg tablet 10 mg PO BID PRN (Reason: muscle spasm) Qty: 30 0RF ibuprofen 800 mg tablet 800 mg PO TID PRN (Reason: pain) Qty: 30 0RF ibuprofen 800 mg tablet 800 mg PO TID PRN (Reason: pain) Qty: 30 0RF ibuprofen 600 mg tablet 600 mg PO Q6H PRN (Reason: pain) Qty: 30 0RF ibuprofen 600 mg tablet 600 mg PO Q8H PRN (Reason: pain) Qty: 20 0RF acetaminophen 500 mg capsule 500 mg PO Q6H PRN (Reason: pain) Qty: 30 0RF lidocaine [Lidoderm] 5 % adhesive patch,medicated 2 patch topical QDAY PRN (Reason: pain) Qty: 30 0RF Rx Instructions: leave on most painful area for up to 12 hrs cyclobenzaprine 5 mg tablet 5 mg PO TID PRN (Reason: muscle spasm) Qty: 15 0RF naproxen 500 mg tablet 500 mg PO BID PRN (Reason: pain) Qty: 14 0RF sulfamethoxazole-trimethoprim [Bactrim DS] 800-160 mg tablet 1 tab PO BID Qty: 14 0RF naproxen 500 mg tablet 500 mg PO BID PRN (Reason: pain) Qty: 30 0RF tamsulosin [Flomax] 0.4 mg capsule 0.4 mg PO QDAY Qty: 30 0RF ibuprofen 600 mg tablet 600 mg PO Q6H PRN (Reason: pain) Qty: 30 0RF methocarbamol 500 mg tablet 1,000 mg PO Q8H PRN (Reason: pain) Qty: 30 0RF naproxen [Naprosyn] 500 mg tablet 500 mg PO BID Qty: 14 0RF ibuprofen 600 mg tablet 600 mg PO Q6H PRN (Reason: fever or pain) Qty: 30 0RF cyclobenzaprine 5 mg tablet 5 mg PO TID PRN (Reason: muscle spasm) Qty: 14 0RF naproxen 500 mg tablet 500 mg PO BID PRN (Reason: pain) Qty: 30 0RF cyclobenzaprine 5 mg tablet 5 mg PO TID PRN (Reason: muscle spasm) Qty: 30 0RF acetaminophen 500 mg capsule 500 mg PO Q6H PRN (Reason: pain) Qty: 30 0RF Referrals: No Primary/Family,Physician [Primary Care Provider] - In 1 week Problem List Clinical Impression: Chronic leg pain Patient/Caregiver Discharge Instructions Discharge Activity: activity as tolerated Education Materials: Understanding Chronic Pain Additional Instructions: Thank you for the opportunity for serving you today. You are stable for discharged . You are advised to: Follow-up with your PCP in 1 to 2 days Return to ED for worsening of symptoms Increase oral fluids Take [id number] Tylenol Motrin as needed for pain Print Language: Togolese Stand Alone Forms: Tami Award Info., Patient Portal Info Letter FAINA/DEVYN Supervising Physician DARRYL Supervising Physician: MD Roxy [facility] Narrative [facility] hospital course: 44-year-old male patient homeless, who is frequent to this emergency room for the same complaints, came in for evaluation regarding leg pain. Patient has been having chronic leg pain, described as dull ache, severity mild. Patient is ambulatory. Denies any other complaints patient is asking for pain medication. Patient is ambulatory. Patient was given Motrin with good relief. Medication Administration(s) Medication Administration History Discontinued Medications Ibuprofen (Ibuprofen Tab 400 Mg Tablet) 800 mg PO X1 ONE Stop: 04/10/25 15:18 Diagnosis Differential diagnosis: Chronic leg pain, homelessness Most likely dx, and/or detailed dx discussion: Chronic leg pain, homeless Dispositon Disposition: Discharge Home
== END 2025-04-10 18:48 | disposition left against medical advice (07) ==
PROVIDERS: Emergency Provider Family Medicine
DX: M79.604 Pain in right leg (principal); M79.605 Pain in left leg; G89.29 Other chronic pain; Z59.00 Homelessness unspecified; Z53.29 Procedure and treatment not carried out because of patient's decision for other reasons
CPT/HCPCS: 99281

== ENCOUNTER 2025-04-11 09:40 | Emergency (ER) | payer MEDICAID, SELFPAY ==
[2025-04-11 09:42] VITALS: BP 115/72; PULSE 77; RESP 19; TEMP 36.8; O2SAT 96; BMI 26.6
--- NOTE | 2025-04-11 10:32 | EDNOTE_ITS ---
Lower Extremity Injury RME/HPI General Chief Complaint: Extremity Injury, Lower Stated Complaint: LEG PAIN Time Seen by Provider: 04/11/25 09:54 Source: patient Arrival date/time: 04/11/25 09:40 44-year-old male with a history of chronic leg pain presents to the emergency room with a chief complaint of bilateral lower extremity pain Mode of arrival: ambulatory Limitations: no limitations Related Data Previous Rx's ?Medication ?Instructions ?Recorded sulfamethoxazole 800 1 tab PO BID #14 tabs mg-trimethoprim 160 mg tablet (Bactrim DS) cyclobenzaprine 5 mg tablet 5 mg PO TID PRN muscle spa sm #30 07/23/23 tabs naproxen 500 mg tablet 500 mg PO BID PRN pain #30 t abs 07/23/23 naproxen 500 mg tablet 500 mg PO BID PRN pain #30 t abs 08/08/23 tamsulosin 0.4 mg capsule (Flomax) 0.4 mg PO QDAY #30 caps 08/08/23 baclofen 10 mg tablet 10 mg PO BID PRN muscle spas m #30 08/14/23 tabs naproxen 500 mg tablet 500 mg PO BID PRN pain #30 t abs 08/14/23 ibuprofen 800 mg tablet 800 mg PO TID PRN pain #30 t abs 08/28/23 ibuprofen 600 mg tablet 600 mg PO Q6H PRN pain #30 t abs 01/27/24 methocarbamol 500 mg tablet 1,000 mg (2 x 500 mg) PO Q 8H PRN 01/27/24 pain #30 tabs naproxen 500 mg tablet (Naprosyn) 500 mg PO BID #14 ta bs 03/15/24 ibuprofen 800 mg tablet 800 mg PO TID PRN pain #30 t abs 04/02/24 cyclobenzaprine 5 mg tablet 5 mg PO TID PRN muscle spa sm #14 04/07/24 tabs ibuprofen 600 mg tablet 600 mg PO Q6H PRN fever or p ain 04/07/24 #30 tabs ibuprofen 600 mg tablet 600 mg PO Q6H PRN pain #30 t abs 04/07/24 cyclobenzaprine 5 mg tablet 5 mg PO TID PRN muscle spa sm #30 04/11/24 tabs naproxen 500 mg tablet 500 mg PO BID PRN pain #30 t abs 04/11/24 ibuprofen 600 mg tablet 600 mg PO Q8H PRN pain #20 t abs 11/03/24 acetaminophen 500 mg capsule 500 mg PO Q6H PRN pain #3 0 caps 12/03/24 acetaminophen 500 mg capsule 500 mg PO Q6H PRN pain #3 0 caps 12/15/24 cyclobenzaprine 5 mg tablet 5 mg PO TID PRN muscle spa sm #15 12/20/24 tabs lidocaine 5 % topical patch 2 patch topical QDAY PRN p ain #30 12/20/24 (Lidoderm) ea naproxen 500 mg tablet 500 mg PO BID PRN pain #14 t abs 04/04/25 Allergies Allergy/AdvReac Type Severity Reaction Status Date / Time No Known Allergies Allergy Verified 04/11/25 09:46 Review of Systems Review of Systems Systems Reviewed: All systems reviewed, normal except as documented Constitutional Constitutional: Reports system reviewed and no additional complaints, except as documented, Denies fatigue, Denies fever(s), Denies headache(s) and Denies weakness Eyes Eyes: Reports system reviewed and no additional complaints, except as documented, Denies blurry vision and Denies change in vision ENT Ears, Nose, Mouth, and Throat: Reports system reviewed and no additional complaints, except as documented, Denies otalgia, Denies headache(s), Denies nasal congestion, Denies throat swelling and Denies vertigo Cardiovascular Cardiovascular: Reports system reviewed and no additional complaints, except as documented, Denies chest pain, Denies dyspnea and Denies dyspnea on exertion Respiratory Respiratory: Reports system reviewed and no additional complaints, except as documented, Denies chest congestion, Denies cough, Denies dyspnea, Denies dyspnea on exertion and Denies wheezing Gastrointestinal Gastrointestinal: Reports system reviewed and no additional complaints, except as documented, Denies abdominal pain, Denies cramping, Denies nausea and Denies vomiting Genitourinary Genitourinary: Reports system reviewed and no additional complaints, except as documented, Denies dysuria and Denies hematuria Musculoskeletal Musculoskeletal: Reports system reviewed and no additional complaints, except as documented and Denies back pain Integumentary/Breasts Skin/Breast: Reports system reviewed and no additional complaints, except as documented and Denies wounds Neurologic Neurologic: Reports system reviewed and no additional complaints, except as documented, Denies confusion, Denies headache(s), Denies lack of coordination, Denies vertigo and Denies weakness Psychiatric Psychiatric: Reports system reviewed and no additional complaints, except as documented, Denies anxiety, Denies confusion, Denies depression, Denies paranoia, Denies suicidal ideation and Denies tactile hallucinations Endocrine Endocrine: Reports system reviewed and no additional complaints, except as documented and Denies fatigue Hematologic/Lymphatic Hematologic/Lymphatic: Reports system reviewed and no additional complaints, except as documented and Denies lymphadenopathy Allergic/Immunologic Allergic/Immunologic: Reports system reviewed and no additional complaints, except as documented, Denies throat swelling, Denies urticaria and Denies wheezing Past Medical History Past Medical History NEUROLOGIC: Positive Cerebrovascular Accident; Negative Neurological Disorders CARDIAC: Positive Myocardial Infarction and Hypercholesterolemia; Negative Cardiac Disorders or Congestive Heart Failure RESPIRATORY: Negative Chronic Obstructive Pulmonary Disease (COPD) GASTROINTESTINAL: Negative Gastrointestinal Disorders GENITOURINARY: Negative Genitourinary Disorders or Renal Disease MUSCULOSKELETAL: Negative Musculoskeletal Disorders ENDOCRINE: Negative Endocrine Disorders, Diabetes Mellitus Type 1 or Diabetes Mellitus Type 2 HEMATOLOGIC: Negative Blood Disorders OTHER HISTORY: Negative Autoimmune Disease or Clostridium Difficile Social History SMOKING STATUS: Light (< 1 pack/day) SUBSTANCE USE: methamphetamine ED Exam General Limitations: Present no limitations General appearance: Present alert and in no apparent distress Head Head exam: Present atraumatic Eye Eye exam: Present normal appearance, PERRL and EOMI ENT ENT exam: Present normal exam, normal oropharynx and mucous membranes moist Neck Neck exam: Present normal inspection, full ROM and trachea midline Chest Chest inspection: Present normal inspection and symmetric chest wall rise Respiratory Respiratory exam: Present normal lung sounds bilaterally Cardiovascular Cardiovascular exam: Present regular rate, normal rhythm and normal heart sounds Abdominal Exam Abdominal exam: Present soft and normal bowel sounds Extremities Exam Extremities exam: Present normal inspection and full ROM Back Exam Back exam: Present normal inspection and full ROM Neurological Exam Neurological exam: Present alert, oriented X3 and CN II-XII intact Psychiatric Psychiatric exam: Present normal affect and normal mood Skin Skin exam: Present warm, dry, intact and normal color Course Quality Measures none Vital Signs Vital signs: Vital Signs Temperature 98.2 F 04/11/25 09:42 Pulse Rate 77 04/11/25 09:42 Respiratory Rate 19 04/11/25 09:42 Blood Pressure 115/72 04/11/25 09:42 Pulse Oximetry (%) 96 04/11/25 09:42 Oxygen Delivery Method Room Air 04/11/25 09:42 Extremity Injury, Lower MDM Narrative MDM Narrative:: 44-year-old male with a history of chronic leg pain presents to the emergency room with a chief complaint of bilateral lower extremity pain Patient is hemodynamically stable and in no apparent distress Patient is here multiple times every single day patient had a full workup done yesterday. guest services assistant was involved and given resources. Patient was discharged and educated to follow-up with primary care provider in the next 24 to 48 hours and return to the emergency room for any evidence of worsening signs or symptoms Patient data External records reviewed:: [facility] previous records Clinical information provided by:: patient Social determinants that could affect healthcare access:: none Patient has the following chronic illnesses:: Chronic leg pain How is presenting disease/condition affected by chronic disease/condition?: exacerbated by Evaluation data The following diagnostics were reviewed and interpreted by me:: lab results and radiology exam(s) Lab and/or radiology exams considered but not ordered:: Labs and radiology exams considered and ordered Interpretation Summary: N/A Medications / Prescriptions Medications or Prescriptions considered but not ordered:: Medication not given Medication administrations:: Medication not given Consultations Consultation(s) initiated? (list below): No Diagnosis Extremity Injury, Lower Differential Diagnosis: other Most likely diagnosis given after review of the tests above:: Chronic leg pain Admission Indicated Admission indicated?: not indicated Admission Request Was there a request for admission?: No Disposition Plan Disposition Plan: Discharge Discharge Attestation Discharge Attestation: The patient and all family members were given an opportunity to ask questions and understood the discharge instructions. Discharge instructions specifically effects, indications for sooner follow up or return to the emergency department, and the expected course of current diagnosis. Patient condition: Stable Discharge Plan Plan Patient Disposition: HOME (Self Care) Discharge Disposition comment: Stable Prescriptions/Referrals Prescriptions/Med Rec: No Action naproxen 500 mg tablet 500 mg PO BID PRN (Reason: pain) Qty: 30 0RF cyclobenzaprine 5 mg tablet 5 mg PO TID PRN (Reason: muscle spasm) Qty: 30 0RF naproxen 500 mg tablet 500 mg PO BID PRN (Reason: pain) Qty: 30 0RF baclofen 10 mg tablet 10 mg PO BID PRN (Reason: muscle spasm) Qty: 30 0RF ibuprofen 800 mg tablet 800 mg PO TID PRN (Reason: pain) Qty: 30 0RF ibuprofen 800 mg tablet 800 mg PO TID PRN (Reason: pain) Qty: 30 0RF ibuprofen 600 mg tablet 600 mg PO Q6H PRN (Reason: pain) Qty: 30 0RF ibuprofen 600 mg tablet 600 mg PO Q8H PRN (Reason: pain) Qty: 20 0RF acetaminophen 500 mg capsule 500 mg PO Q6H PRN (Reason: pain) Qty: 30 0RF lidocaine [Lidoderm] 5 % adhesive patch,medicated 2 patch topical QDAY PRN (Reason: pain) Qty: 30 0RF Rx Instructions: leave on most painful area for up to 12 hrs cyclobenzaprine 5 mg tablet 5 mg PO TID PRN (Reason: muscle spasm) Qty: 15 0RF naproxen 500 mg tablet 500 mg PO BID PRN (Reason: pain) Qty: 14 0RF sulfamethoxazole-trimethoprim [Bactrim DS] 800-160 mg tablet 1 tab PO BID Qty: 14 0RF naproxen 500 mg tablet 500 mg PO BID PRN (Reason: pain) Qty: 30 0RF tamsulosin [Flomax] 0.4 mg capsule 0.4 mg PO QDAY Qty: 30 0RF ibuprofen 600 mg tablet 600 mg PO Q6H PRN (Reason: pain) Qty: 30 0RF methocarbamol 500 mg tablet 1,000 mg PO Q8H PRN (Reason: pain) Qty: 30 0RF naproxen [Naprosyn] 500 mg tablet 500 mg PO BID Qty: 14 0RF ibuprofen 600 mg tablet 600 mg PO Q6H PRN (Reason: fever or pain) Qty: 30 0RF cyclobenzaprine 5 mg tablet 5 mg PO TID PRN (Reason: muscle spasm) Qty: 14 0RF naproxen 500 mg tablet 500 mg PO BID PRN (Reason: pain) Qty: 30 0RF cyclobenzaprine 5 mg tablet 5 mg PO TID PRN (Reason: muscle spasm) Qty: 30 0RF acetaminophen 500 mg capsule 500 mg PO Q6H PRN (Reason: pain) Qty: 30 0RF Problem List Clinical Impression: Chronic leg pain Patient/Caregiver Discharge Instructions Education Materials: ED Chronic Pain Additional Instructions: Please follow-up with your primary care provider in the next 24 to 48 hours For any evidence of worsening signs or symptoms return to the emergency room immediately Print Language: Czech Stand Alone Forms: Tami Award Info., Patient Portal Info Letter PA/CHIEF ENVIRONMENTAL COMMITMENT OFFICER Supervising Physician PA/CHIEF ENVIRONMENTAL COMMITMENT OFFICER Supervising Physician: Dr. Ramsey
== END 2025-04-11 10:37 | disposition home or self-care (01) ==
LOC: SERX 10:11
PROVIDERS: Emergency Provider Family Medicine; PCP Family Medicine
DX: M79.662 Pain in left lower leg (principal); M79.661 Pain in right lower leg; G89.29 Other chronic pain
CPT/HCPCS: 99281

== ENCOUNTER 2025-04-15 19:10 | Emergency (ER) | payer MEDICAID, SELFPAY ==
[2025-04-15 19:10] VITALS: PULSE 76; RESP 16; O2SAT 97; BMI 25.9
--- NOTE | 2025-04-15 20:00 | PC.NURSE ---
no answer in lobby when called for room in ed
[2025-04-15 21:17] VITALS: BP 128/90; PULSE 77; RESP 18; TEMP 36.6; O2SAT 99
--- NOTE | 2025-04-15 21:28 | EDNOTE_ITS ---
ED Extremity Problem RME/HPI General Chief complaint: Extremity Problem,Nontraumatic Stated complaint: BILAT. LEG PAIN X1 DAY Time Seen by Provider: 04/15/25 19:41 Arrival date/time: 04/15/25 19:10 RME / HPI RME / HPI Narrative: 44-year-old male presents to the ED with chronic leg pain. His PCP is Dr. Monte and he has not seen him in months. He is here sometimes on a daily basis to receive a pain pill. Related Data Previous Rx's ?Medication ?Instructions ?Recorded sulfamethoxazole 800 1 tab PO BID #14 tabs mg-trimethoprim 160 mg tablet (Bactrim DS) cyclobenzaprine 5 mg tablet 5 mg PO TID PRN muscle spa sm #30 07/23/23 tabs naproxen 500 mg tablet 500 mg PO BID PRN pain #30 t abs 07/23/23 naproxen 500 mg tablet 500 mg PO BID PRN pain #30 t abs 08/08/23 tamsulosin 0.4 mg capsule (Flomax) 0.4 mg PO QDAY #30 caps 08/08/23 baclofen 10 mg tablet 10 mg PO BID PRN muscle spas m #30 08/14/23 tabs naproxen 500 mg tablet 500 mg PO BID PRN pain #30 t abs 08/14/23 ibuprofen 800 mg tablet 800 mg PO TID PRN pain #30 t abs 08/28/23 ibuprofen 600 mg tablet 600 mg PO Q6H PRN pain #30 t abs 01/27/24 methocarbamol 500 mg tablet 1,000 mg (2 x 500 mg) PO Q 8H PRN 01/27/24 pain #30 tabs naproxen 500 mg tablet (Naprosyn) 500 mg PO BID #14 ta bs 03/15/24 ibuprofen 800 mg tablet 800 mg PO TID PRN pain #30 t abs 04/02/24 cyclobenzaprine 5 mg tablet 5 mg PO TID PRN muscle spa sm #14 04/07/24 tabs ibuprofen 600 mg tablet 600 mg PO Q6H PRN fever or p ain 04/07/24 #30 tabs ibuprofen 600 mg tablet 600 mg PO Q6H PRN pain #30 t abs 04/07/24 cyclobenzaprine 5 mg tablet 5 mg PO TID PRN muscle spa sm #30 04/11/24 tabs naproxen 500 mg tablet 500 mg PO BID PRN pain #30 t abs 04/11/24 ibuprofen 600 mg tablet 600 mg PO Q8H PRN pain #20 t abs 11/03/24 acetaminophen 500 mg capsule 500 mg PO Q6H PRN pain #3 0 caps 12/03/24 acetaminophen 500 mg capsule 500 mg PO Q6H PRN pain #3 0 caps 12/15/24 cyclobenzaprine 5 mg tablet 5 mg PO TID PRN muscle spa sm #15 12/20/24 tabs lidocaine 5 % topical patch 2 patch topical QDAY PRN p ain #30 12/20/24 (Lidoderm) ea naproxen 500 mg tablet 500 mg PO BID PRN pain #14 t abs 04/04/25 Allergies Allergy/AdvReac Type Severity Reaction Status Date / Time No Known Allergies Allergy Verified 04/11/25 09:46 Review of Systems Review of Systems Systems Reviewed: All systems reviewed, normal except as documented Past Medical History Past Medical History NEUROLOGIC: Positive Cerebrovascular Accident; Negative Neurological Disorders CARDIAC: Positive Myocardial Infarction and Hypercholesterolemia; Negative Cardiac Disorders or Congestive Heart Failure RESPIRATORY: Negative Chronic Obstructive Pulmonary Disease (COPD) GASTROINTESTINAL: Negative Gastrointestinal Disorders GENITOURINARY: Negative Genitourinary Disorders or Renal Disease MUSCULOSKELETAL: Negative Musculoskeletal Disorders ENDOCRINE: Negative Endocrine Disorders, Diabetes Mellitus Type 1 or Diabetes Mellitus Type 2 HEMATOLOGIC: Negative Blood Disorders OTHER HISTORY: Negative Autoimmune Disease or Clostridium Difficile Social History SMOKING STATUS: Heavy (> 1 pack/day) SUBSTANCE USE: methamphetamine ED Exam Narrative Physical exam: Foul odor eminating from patient's clothes. Disheveled appearance. No respiratory distress noted. Course Quality Measures none Orders Category Date Time Status Acetaminophen Tab [Tylenol Tab] Med 04/15/25 21:29 Discontinued 650 mg PO X1 ONE Vital Signs Vital signs: Vital Signs Temperature 98 F 04/15/25 21:17 Pulse Rate 77 04/15/25 21:17 Respiratory Rate 18 04/15/25 21:17 Blood Pressure 128/90 H 04/15/25 21:17 Pulse Oximetry (%) 99 04/15/25 21:17 Oxygen Delivery Method Room Air 04/15/25 21:17 Extremity Problem Patient data External records reviewed:: [facility] previous records Clinical information provided by:: patient Social determinants that could affect healthcare access:: mental health Patient has the following chronic illnesses:: Chronic pain, homelessness, Methamphetamine abuse How is presenting disease/condition affected by chronic disease/condition?: exacerbated by Evaluation data The following diagnostics were reviewed and interpreted by me:: other (specify) (None) Lab and/or radiology exams considered but not ordered:: N/A Interpretation Summary: N/A Medications / Prescriptions Medications or Prescriptions considered but not ordered:: N/A Medication administrations:: Medication Administration History Discontinued Medications Acetaminophen (Acetaminophen 325 Mg Tablet) 650 mg PO X1 ONE Stop: 04/15/25 21:30 Tylenol 650mg PO Consultations Consultation(s) initiated? (list below): No Diagnosis Extremity Problem Differential Diagnosis: other (Chronic Pain) Most likely diagnosis given after review of the tests above:: Chronic Pain Admission Indicated Admission indicated?: not indicated Explain why admission is indicated or not indicated:: Stable for discharge Admission Request Was there a request for admission?: No Disposition Plan Disposition Plan: Discharge Discharge Attestation Discharge Attestation: The patient and all family members were given an opportunity to ask questions and understood the discharge instructions. Discharge instructions specifically effects, indications for sooner follow up or return to the emergency department, and the expected course of current diagnosis. Patient condition: Stable Discharge Plan Plan Patient Disposition: HOME (Self Care) Discharge Disposition comment: Stable Prescriptions/Referrals Prescriptions/Med Rec: No Action naproxen 500 mg tablet 500 mg PO BID PRN (Reason: pain) Qty: 30 0RF cyclobenzaprine 5 mg tablet 5 mg PO TID PRN (Reason: muscle spasm) Qty: 30 0RF naproxen 500 mg tablet 500 mg PO BID PRN (Reason: pain) Qty: 30 0RF baclofen 10 mg tablet 10 mg PO BID PRN (Reason: muscle spasm) Qty: 30 0RF ibuprofen 800 mg tablet 800 mg PO TID PRN (Reason: pain) Qty: 30 0RF ibuprofen 800 mg tablet 800 mg PO TID PRN (Reason: pain) Qty: 30 0RF ibuprofen 600 mg tablet 600 mg PO Q6H PRN (Reason: pain) Qty: 30 0RF ibuprofen 600 mg tablet 600 mg PO Q8H PRN (Reason: pain) Qty: 20 0RF acetaminophen 500 mg capsule 500 mg PO Q6H PRN (Reason: pain) Qty: 30 0RF lidocaine [Lidoderm] 5 % adhesive patch,medicated 2 patch topical QDAY PRN (Reason: pain) Qty: 30 0RF Rx Instructions: leave on most painful area for up to 12 hrs cyclobenzaprine 5 mg tablet 5 mg PO TID PRN (Reason: muscle spasm) Qty: 15 0RF naproxen 500 mg tablet 500 mg PO BID PRN (Reason: pain) Qty: 14 0RF sulfamethoxazole-trimethoprim [Bactrim DS] 800-160 mg tablet 1 tab PO BID Qty: 14 0RF naproxen 500 mg tablet 500 mg PO BID PRN (Reason: pain) Qty: 30 0RF tamsulosin [Flomax] 0.4 mg capsule 0.4 mg PO QDAY Qty: 30 0RF ibuprofen 600 mg tablet 600 mg PO Q6H PRN (Reason: pain) Qty: 30 0RF methocarbamol 500 mg tablet 1,000 mg PO Q8H PRN (Reason: pain) Qty: 30 0RF naproxen [Naprosyn] 500 mg tablet 500 mg PO BID Qty: 14 0RF ibuprofen 600 mg tablet 600 mg PO Q6H PRN (Reason: fever or pain) Qty: 30 0RF cyclobenzaprine 5 mg tablet 5 mg PO TID PRN (Reason: muscle spasm) Qty: 14 0RF naproxen 500 mg tablet 500 mg PO BID PRN (Reason: pain) Qty: 30 0RF cyclobenzaprine 5 mg tablet 5 mg PO TID PRN (Reason: muscle spasm) Qty: 30 0RF acetaminophen 500 mg capsule 500 mg PO Q6H PRN (Reason: pain) Qty: 30 0RF Referrals: No Primary/Family,Physician [Primary Care Provider] - In 1 week Problem List Clinical Impression: Homeless, Chronic leg pain Patient/Caregiver Discharge Instructions Education Materials: Managing Chronic Pain Additional Instructions: Follow-up with Dr. Monte for control of your chronic pain. Print Language: Slovak Stand Alone Forms: Tami Award Info., Patient Portal Info Letter PA/PRINCIPAL ARCHAEOLOGIST Supervising Physician PA/PRINCIPAL ARCHAEOLOGIST Supervising Physician: Dr Gallardo
[2025-04-15] MEDS: ACETAMINOPHEN 325 MG TABLET 650 MG PO (21:45)
== END 2025-04-15 22:30 | disposition home or self-care (01) ==
PROVIDERS: Emergency Provider Emergency Medicine
DX: G89.29 Other chronic pain (principal); M79.606 Pain in leg, unspecified; Z59.00 Homelessness unspecified
CPT/HCPCS: 99282; A9270

== ENCOUNTER 2025-04-16 08:39 | Emergency (ER) | payer MEDICAID, SELFPAY ==
[2025-04-16 08:43] VITALS: BP 110/72; PULSE 61; RESP 18; TEMP 36.7; O2SAT 100; BMI 25.9
[2025-04-16 08:51] VITALS: PULSE 79; RESP 18; O2SAT 98
[2025-04-16] MEDS: IBUPROFEN TAB 600 MG TABLET PO (09:16)
--- NOTE | 2025-04-16 09:18 | EDNOTE_ITS ---
<Statement entered by Annemarie Cortez MD - 04/16/25 17:04> As co-signing physician, I was present and available for consult prn. I concur with the plan and care as documented by the midlevel provider. Lower Extremity Injury RME/HPI General Chief Complaint: Extremity Injury, Lower Stated Complaint: BILAT LEG PAIN Source: patient Arrival date/time: 04/16/25 08:39 44-year-old male with a history of chronic leg pain, homelessness, substance abuse presents to the emergency room with a chief complaint of bilateral lower extremity pain Mode of arrival: ambulatory Limitations: no limitations Related Data Previous Rx's ?Medication ?Instructions ?Recorded sulfamethoxazole 800 1 tab PO BID #14 tabs mg-trimethoprim 160 mg tablet (Bactrim DS) cyclobenzaprine 5 mg tablet 5 mg PO TID PRN muscle spa sm #30 07/23/23 tabs naproxen 500 mg tablet 500 mg PO BID PRN pain #30 t abs 07/23/23 naproxen 500 mg tablet 500 mg PO BID PRN pain #30 t abs 08/08/23 tamsulosin 0.4 mg capsule (Flomax) 0.4 mg PO QDAY #30 caps 08/08/23 baclofen 10 mg tablet 10 mg PO BID PRN muscle spas m #30 08/14/23 tabs naproxen 500 mg tablet 500 mg PO BID PRN pain #30 t abs 08/14/23 ibuprofen 800 mg tablet 800 mg PO TID PRN pain #30 t abs 08/28/23 ibuprofen 600 mg tablet 600 mg PO Q6H PRN pain #30 t abs 01/27/24 methocarbamol 500 mg tablet 1,000 mg (2 x 500 mg) PO Q 8H PRN 01/27/24 pain #30 tabs naproxen 500 mg tablet (Naprosyn) 500 mg PO BID #14 ta bs 03/15/24 ibuprofen 800 mg tablet 800 mg PO TID PRN pain #30 t abs 04/02/24 cyclobenzaprine 5 mg tablet 5 mg PO TID PRN muscle spa sm #14 04/07/24 tabs ibuprofen 600 mg tablet 600 mg PO Q6H PRN fever or p ain 04/07/24 #30 tabs ibuprofen 600 mg tablet 600 mg PO Q6H PRN pain #30 t abs 04/07/24 cyclobenzaprine 5 mg tablet 5 mg PO TID PRN muscle spa sm #30 04/11/24 tabs naproxen 500 mg tablet 500 mg PO BID PRN pain #30 t abs 04/11/24 ibuprofen 600 mg tablet 600 mg PO Q8H PRN pain #20 t abs 11/03/24 acetaminophen 500 mg capsule 500 mg PO Q6H PRN pain #3 0 caps 12/03/24 acetaminophen 500 mg capsule 500 mg PO Q6H PRN pain #3 0 caps 12/15/24 cyclobenzaprine 5 mg tablet 5 mg PO TID PRN muscle spa sm #15 12/20/24 tabs lidocaine 5 % topical patch 2 patch topical QDAY PRN p ain #30 12/20/24 (Lidoderm) ea naproxen 500 mg tablet 500 mg PO BID PRN pain #14 t abs 04/04/25 Allergies Allergy/AdvReac Type Severity Reaction Status Date / Time No Known Allergies Allergy Verified 04/11/25 09:46 Review of Systems Review of Systems Systems Reviewed: All systems reviewed, normal except as documented Constitutional Constitutional: Reports system reviewed and no additional complaints, except as documented, Denies fatigue, Denies fever(s), Denies headache(s) and Denies weakness Eyes Eyes: Reports system reviewed and no additional complaints, except as documented, Denies blurry vision and Denies change in vision ENT Ears, Nose, Mouth, and Throat: Reports system reviewed and no additional complaints, except as documented, Denies otalgia, Denies headache(s), Denies nasal congestion, Denies throat swelling and Denies vertigo Cardiovascular Cardiovascular: Reports system reviewed and no additional complaints, except as documented, Denies chest pain, Denies dyspnea and Denies dyspnea on exertion Respiratory Respiratory: Reports system reviewed and no additional complaints, except as documented, Denies chest congestion, Denies cough, Denies dyspnea, Denies dyspnea on exertion and Denies wheezing Gastrointestinal Gastrointestinal: Reports system reviewed and no additional complaints, except as documented, Denies abdominal pain, Denies cramping, Denies nausea and Denies vomiting Genitourinary Genitourinary: Reports system reviewed and no additional complaints, except as documented, Denies dysuria and Denies hematuria Musculoskeletal Musculoskeletal: Reports system reviewed and no additional complaints, except as documented and Denies back pain Integumentary/Breasts Skin/Breast: Reports system reviewed and no additional complaints, except as documented and Denies wounds Neurologic Neurologic: Reports system reviewed and no additional complaints, except as documented, Denies confusion, Denies headache(s), Denies lack of coordination, Denies vertigo and Denies weakness Psychiatric Psychiatric: Reports system reviewed and no additional complaints, except as documented, Denies anxiety, Denies confusion, Denies depression, Denies paranoia, Denies suicidal ideation and Denies tactile hallucinations Endocrine Endocrine: Reports system reviewed and no additional complaints, except as documented and Denies fatigue Hematologic/Lymphatic Hematologic/Lymphatic: Reports system reviewed and no additional complaints, except as documented and Denies lymphadenopathy Allergic/Immunologic Allergic/Immunologic: Reports system reviewed and no additional complaints, except as documented, Denies throat swelling, Denies urticaria and Denies wheezing Past Medical History Past Medical History NEUROLOGIC: Positive Cerebrovascular Accident; Negative Neurological Disorders CARDIAC: Positive Myocardial Infarction and Hypercholesterolemia; Negative Cardiac Disorders or Congestive Heart Failure RESPIRATORY: Negative Chronic Obstructive Pulmonary Disease (COPD) GASTROINTESTINAL: Negative Gastrointestinal Disorders GENITOURINARY: Negative Genitourinary Disorders or Renal Disease MUSCULOSKELETAL: Negative Musculoskeletal Disorders ENDOCRINE: Negative Endocrine Disorders, Diabetes Mellitus Type 1 or Diabetes Mellitus Type 2 HEMATOLOGIC: Negative Blood Disorders OTHER HISTORY: Negative Autoimmune Disease or Clostridium Difficile Social History SMOKING STATUS: Never smoker SUBSTANCE USE: methamphetamine ED Exam General Limitations: Present no limitations General appearance: Present alert and in no apparent distress Head Head exam: Present atraumatic Eye Eye exam: Present normal appearance, PERRL and EOMI ENT ENT exam: Present normal exam, normal oropharynx and mucous membranes moist Neck Neck exam: Present normal inspection, full ROM and trachea midline Chest Chest inspection: Present normal inspection and symmetric chest wall rise Respiratory Respiratory exam: Present normal lung sounds bilaterally Cardiovascular Cardiovascular exam: Present regular rate, normal rhythm and normal heart sounds Abdominal Exam Abdominal exam: Present soft and normal bowel sounds Extremities Exam Extremities exam: Present normal inspection and full ROM Back Exam Back exam: Present normal inspection and full ROM Neurological Exam Neurological exam: Present alert, oriented X3 and CN II-XII intact Psychiatric Psychiatric exam: Present normal affect and normal mood Skin Skin exam: Present warm, dry, intact and normal color Course Quality Measures none Orders Category Date Time Status Ibuprofen Tab [Motrin Tab] Med 04/16/25 09:12 Discontinued 600 mg PO X1 ONE Vital Signs Vital signs: Vital Signs Temperature 98.0 F 04/16/25 08:43 Pulse Rate 61 04/16/25 08:43 Respiratory Rate 18 04/16/25 08:43 Blood Pressure 110/72 04/16/25 08:43 Pulse Oximetry (%) 100 04/16/25 08:43 Oxygen Delivery Method Room Air 04/16/25 08:43 Extremity Injury, Lower MDM Narrative MDM Narrative:: 44-year-old male with a history of chronic leg pain, homelessness, substance abuse presents to the emergency room with a chief complaint of bilateral lower extremity pain Patient is hemodynamically stable and in no apparent distress. Patient has a normal steady shuffling gait that is his baseline. Patient has had multiple full workups completed. Due to his psychiatric history and homelessness the patient is here multiple times a day for food, water and medication. Patient has been educated multiple times to follow-up with his primary care provider for pain medication but he never picks up his prescriptions Patient was discharged and educated to follow-up with primary care provider in the next 24 to 48 hours and return to the emergency room for any evidence of w orsening signs or symptoms Patient data External records reviewed:: [facility] previous records Clinical information provided by:: patient Social determinants that could affect healthcare access:: none Patient has the following chronic illnesses:: Chronic leg pain How is presenting disease/condition affected by chronic disease/condition?: caused by Evaluation data The following diagnostics were reviewed and interpreted by me:: lab results and radiology exam(s) Lab and/or radiology exams considered but not ordered:: Labs and radiology exams considered and ordered Interpretation Summary: N/A Medications / Prescriptions Medications or Prescriptions considered but not ordered:: Medication given Medication administrations:: Medication Administration History Discontinued Medications Ibuprofen (Ibuprofen Tab 600 Mg Tablet) 600 mg PO X1 ONE Stop: 04/16/25 09:13 Last Admin: 04/16/25 09:16 Dose: 600 mg Documented By: VG Medication given Consultations Consultation(s) initiated? (list below): No Diagnosis Extremity Injury, Lower Differential Diagnosis: other (Chronic leg pain) Most likely diagnosis given after review of the tests above:: Chronic leg pain Admission Indicated Admission indicated?: not indicated Admission Request Was there a request for admission?: No Disposition Plan Disposition Plan: Discharge Discharge Attestation Discharge Attestation: The patient and all family members were given an opportunity to ask questions and understood the discharge instructions. Discharge instructions specifically effects, indications for sooner follow up or return to the emergency department, and the expected course of current diagnosis. Patient condition: Stable Discharge Plan Plan Patient Disposition: HOME (Self Care) Discharge Disposition comment: Stable Prescriptions/Referrals Prescriptions/Med Rec: No Action naproxen 500 mg tablet 500 mg PO BID PRN (Reason: pain) Qty: 30 0RF cyclobenzaprine 5 mg tablet 5 mg PO TID PRN (Reason: muscle spasm) Qty: 30 0RF naproxen 500 mg tablet 500 mg PO BID PRN (Reason: pain) Qty: 30 0RF baclofen 10 mg tablet 10 mg PO BID PRN (Reason: muscle spasm) Qty: 30 0RF ibuprofen 800 mg tablet 800 mg PO TID PRN (Reason: pain) Qty: 30 0RF ibuprofen 800 mg tablet 800 mg PO TID PRN (Reason: pain) Qty: 30 0RF ibuprofen 600 mg tablet 600 mg PO Q6H PRN (Reason: pain) Qty: 30 0RF ibuprofen 600 mg tablet 600 mg PO Q8H PRN (Reason: pain) Qty: 20 0RF acetaminophen 500 mg capsule 500 mg PO Q6H PRN (Reason: pain) Qty: 30 0RF lidocaine [Lidoderm] 5 % adhesive patch,medicated 2 patch topical QDAY PRN (Reason: pain) Qty: 30 0RF Rx Instructions: leave on most painful area for up to 12 hrs cyclobenzaprine 5 mg tablet 5 mg PO TID PRN (Reason: muscle spasm) Qty: 15 0RF naproxen 500 mg tablet 500 mg PO BID PRN (Reason: pain) Qty: 14 0RF sulfamethoxazole-trimethoprim [Bactrim DS] 800-160 mg tablet 1 tab PO BID Qty: 14 0RF naproxen 500 mg tablet 500 mg PO BID PRN (Reason: pain) Qty: 30 0RF tamsulosin [Flomax] 0.4 mg capsule 0.4 mg PO QDAY Qty: 30 0RF ibuprofen 600 mg tablet 600 mg PO Q6H PRN (Reason: pain) Qty: 30 0RF methocarbamol 500 mg tablet 1,000 mg PO Q8H PRN (Reason: pain) Qty: 30 0RF naproxen [Naprosyn] 500 mg tablet 500 mg PO BID Qty: 14 0RF ibuprofen 600 mg tablet 600 mg PO Q6H PRN (Reason: fever or pain) Qty: 30 0RF cyclobenzaprine 5 mg tablet 5 mg PO TID PRN (Reason: muscle spasm) Qty: 14 0RF naproxen 500 mg tablet 500 mg PO BID PRN (Reason: pain) Qty: 30 0RF cyclobenzaprine 5 mg tablet 5 mg PO TID PRN (Reason: muscle spasm) Qty: 30 0RF acetaminophen 500 mg capsule 500 mg PO Q6H PRN (Reason: pain) Qty: 30 0RF Problem List Clinical Impression: Chronic leg pain Patient/Caregiver Discharge Instructions Education Materials: ED Chronic Pain Additional Instructions: Please follow-up with your primary care provider in the next 24 to 48 hours For any evidence of worsening signs or symptoms return to the emergency room immediately Print Language: Montenegrin Stand Alone Forms: Tami Award Info., Patient Portal Info Letter PA/DEVYN Supervising Physician PA/DEVYN Supervising Physician: Dr. CORTEZ
== END 2025-04-16 09:31 | disposition home or self-care (01) ==
LOC: SERX 09:18
PROVIDERS: Emergency Provider Emergency Medicine; PCP Family Medicine
DX: M79.604 Pain in right leg (principal); M79.605 Pain in left leg; G89.29 Other chronic pain; Z59.00 Homelessness unspecified
CPT/HCPCS: 99282; A9270

== ENCOUNTER 2025-04-16 15:10 | Emergency (ER) | payer MEDICAID, SELFPAY ==
[2025-04-16 15:11] VITALS: PULSE 90; RESP 18
[2025-04-16 15:32] VITALS: BP 109/76; PULSE 77; RESP 16; TEMP 36.4; O2SAT 96
--- NOTE | 2025-04-16 15:46 | EDNOTE_ITS ---
<Statement entered by Annemarie Cortez MD - 04/16/25 16:59> As co-signing physician, I was present and available for consult prn. I concur with the plan and care as documented by the midlevel provider. Lower Extremity Injury RME/HPI General Chief Complaint: Extremity Injury, Lower Stated Complaint: BILAT LEG PAIN Time Seen by Provider: 04/16/25 15:32 Source: patient Arrival date/time: 04/16/25 15:10 44-year-old male with a history of chronic leg pain substance abuse and homelessness presents to the emergency room with a chief complaint of bilateral lower extremity pain Mode of arrival: ambulatory Limitations: no limitations Related Data Previous Rx's ?Medication ?Instructions ?Recorded sulfamethoxazole 800 1 tab PO BID #14 tabs mg-trimethoprim 160 mg tablet (Bactrim DS) cyclobenzaprine 5 mg tablet 5 mg PO TID PRN muscle spa sm #30 07/23/23 tabs naproxen 500 mg tablet 500 mg PO BID PRN pain #30 t abs 07/23/23 naproxen 500 mg tablet 500 mg PO BID PRN pain #30 t abs 08/08/23 tamsulosin 0.4 mg capsule (Flomax) 0.4 mg PO QDAY #30 caps 08/08/23 baclofen 10 mg tablet 10 mg PO BID PRN muscle spas m #30 08/14/23 tabs naproxen 500 mg tablet 500 mg PO BID PRN pain #30 t abs 08/14/23 ibuprofen 800 mg tablet 800 mg PO TID PRN pain #30 t abs 08/28/23 ibuprofen 600 mg tablet 600 mg PO Q6H PRN pain #30 t abs 01/27/24 methocarbamol 500 mg tablet 1,000 mg (2 x 500 mg) PO Q 8H PRN 01/27/24 pain #30 tabs naproxen 500 mg tablet (Naprosyn) 500 mg PO BID #14 ta bs 03/15/24 ibuprofen 800 mg tablet 800 mg PO TID PRN pain #30 t abs 04/02/24 cyclobenzaprine 5 mg tablet 5 mg PO TID PRN muscle spa sm #14 04/07/24 tabs ibuprofen 600 mg tablet 600 mg PO Q6H PRN fever or p ain 04/07/24 #30 tabs ibuprofen 600 mg tablet 600 mg PO Q6H PRN pain #30 t abs 04/07/24 cyclobenzaprine 5 mg tablet 5 mg PO TID PRN muscle spa sm #30 04/11/24 tabs naproxen 500 mg tablet 500 mg PO BID PRN pain #30 t abs 04/11/24 ibuprofen 600 mg tablet 600 mg PO Q8H PRN pain #20 t abs 11/03/24 acetaminophen 500 mg capsule 500 mg PO Q6H PRN pain #3 0 caps 12/03/24 acetaminophen 500 mg capsule 500 mg PO Q6H PRN pain #3 0 caps 12/15/24 cyclobenzaprine 5 mg tablet 5 mg PO TID PRN muscle spa sm #15 12/20/24 tabs lidocaine 5 % topical patch 2 patch topical QDAY PRN p ain #30 12/20/24 (Lidoderm) ea naproxen 500 mg tablet 500 mg PO BID PRN pain #14 t abs 04/04/25 Allergies Allergy/AdvReac Type Severity Reaction Status Date / Time No Known Allergies Allergy Verified 04/11/25 09:46 Review of Systems Review of Systems Systems Reviewed: All systems reviewed, normal except as documented Constitutional Constitutional: Reports system reviewed and no additional complaints, except as documented, Denies fatigue, Denies fever(s), Denies headache(s) and Denies weakness Eyes Eyes: Reports system reviewed and no additional complaints, except as docum ented, Denies blurry vision and Denies change in vision ENT Ears, Nose, Mouth, and Throat: Reports system reviewed and no additional complaints, except as documented, Denies otalgia, Denies headache(s), Denies nasal congestion, Denies throat swelling and Denies vertigo Cardiovascular Cardiovascular: Reports system reviewed and no additional complaints, except as documented, Denies chest pain, Denies dyspnea and Denies dyspnea on exertion Respiratory Respiratory: Reports system reviewed and no additional complaints, except as documented, Denies chest congestion, Denies cough, Denies dyspnea, Denies dyspnea on exertion and Denies wheezing Gastrointestinal Gastrointestinal: Reports system reviewed and no additional complaints, except as documented, Denies abdominal pain, Denies cramping, Denies nausea and Denies vomiting Genitourinary Genitourinary: Reports system reviewed and no additional complaints, except as documented, Denies dysuria and Denies hematuria Musculoskeletal Musculoskeletal: Reports system reviewed and no additional complaints, except as documented and Denies back pain Integumentary/Breasts Skin/Breast: Reports system reviewed and no additional complaints, except as documented and Denies wounds Neurologic Neurologic: Reports system reviewed and no additional complaints, except as documented, Denies confusion, Denies headache(s), Denies lack of coordination, Denies vertigo and Denies weakness Psychiatric Psychiatric: Reports system reviewed and no additional complaints, except as documented, Denies anxiety, Denies confusion, Denies depression, Denies paranoia, Denies suicidal ideation and Denies tactile hallucinations Endocrine Endocrine: Reports system reviewed and no additional complaints, except as documented and Denies fatigue Hematologic/Lymphatic Hematologic/Lymphatic: Reports system reviewed and no additional complaints, except as documented and Denies lymphadenopathy Allergic/Immunologic Allergic/Immunologic: Reports system reviewed and no additional complaints, except as documented, Denies throat swelling, Denies urticaria and Denies wheezing Past Medical History Past Medical History NEUROLOGIC: Positive Cerebrovascular Accident; Negative Neurological Disorders CARDIAC: Positive Myocardial Infarction and Hypercholesterolemia; Negative Cardiac Disorders or Congestive Heart Failure RESPIRATORY: Negative Chronic Obstructive Pulmonary Disease (COPD) GASTROINTESTINAL: Negative Gastrointestinal Disorders GENITOURINARY: Negative Genitourinary Disorders or Renal Disease MUSCULOSKELETAL: Negative Musculoskeletal Disorders ENDOCRINE: Negative Endocrine Disorders, Diabetes Mellitus Type 1 or Diabetes Mellitus Type 2 HEMATOLOGIC: Negative Blood Disorders OTHER HISTORY: Negative Autoimmune Disease or Clostridium Difficile Social History SMOKING STATUS: Never smoker SUBSTANCE USE: methamphetamine ED Exam General Limitations: Present no limitations General appearance: Present alert and in no apparent distress Head Head exam: Present atraumatic Eye Eye exam: Present normal appearance, PERRL and EOMI ENT ENT exam: Present normal exam, normal oropharynx and mucous membranes moist Neck Neck exam: Present normal inspection, full ROM and trachea midline Chest Chest inspection: Present normal inspection and symmetric chest wall rise Respiratory Respiratory exam: Present normal lung sounds bilaterally Cardiovascular Cardiovascular exam: Present regular rate, normal rhythm and normal heart sounds Abdominal Exam Abdominal exam: Present soft and normal bowel sounds Extremities Exam Extremities exam: Present normal inspection and full ROM Back Exam Back exam: Present normal inspection and full ROM Neurological Exam Neurological exam: Present alert, oriented X3 and CN II-XII intact Psychiatric Psychiatric exam: Present normal affect and normal mood Skin Skin exam: Present warm, dry, intact and normal color Course Quality Measures none Vital Signs Vital signs: Vital Signs Temperature 97.6 F 05/28/25 15:32 Pulse Rate 77 04/16/25 15:32 Respiratory Rate 16 04/16/25 15:32 Blood Pressure 109/76 04/16/25 15:32 Pulse Oximetry (%) 96 04/16/25 15:32 Oxygen Delivery Method Room Air 04/16/25 15:32 Extremity Injury, Lower MDM Narrative MDM Narrative:: 44-year-old male with a history of chronic leg pain substance abuse and homelessness presents to the emergency room with a chief complaint of bilateral lower extremity pain Patient is hemodynamically stable and in no apparent distress Physical examination shows tenderness to the lower extremities. This patient is here multiple times a day I have seen him earlier today this morning pain medication was given. Patient states he is back today as he is hungry and also thirsty. Patient is also stating that he has lower abdominal pain but there is nothing new. Multiple workups have been done on this patient. Patient is seen here multiple times a day Patient was discharged and educated to follow-up with primary care provider in the next 24 to 48 hours and return to the emergency room for any evidence of worsening signs or symptoms Patient data External records reviewed:: [facility] previous records Clinical information provided by:: patient Social determinants that could affect healthcare access:: none Patient has the following chronic illnesses:: No chronic illness okay How is presenting disease/condition affected by chronic disease/condition?: no chronic disease Evaluation data The following diagnostics were reviewed and interpreted by me:: lab results and radiology exam(s) Lab and/or radiology exams considered but not ordered:: Labs and radiology exams considered and ordered Interpretation Summary: N/A Medications / Prescriptions Medications or Prescriptions considered but not ordered:: No medication given Medication administrations:: No medication given Consultations Consultation(s) initiated? (list below): No Diagnosis Extremity Injury, Lower Differential Diagnosis: other Most likely diagnosis given after review of the tests above:: Chronic leg pain Admission Indicated Admission indicated?: not indicated Admission Request Was there a request for admission?: No Disposition Plan Disposition Plan: Discharge Discharge Attestation Discharge Attestation: The patient and all family members were given an opportunity to ask questions and understood the discharge instructions. Discharge instructions specifically effects, indications for sooner follow up or return to the emergency department, and the expected course of current diagnosis. Patient condition: Stable Discharge Plan Plan Patient Disposition: HOME (Self Care) Discharge Disposition comment: Stable Prescriptions/Referrals Prescriptions/Med Rec: No Action naproxen 500 mg tablet 500 mg PO BID PRN (Reason: pain) Qty: 30 0RF cyclobenzaprine 5 mg tablet 5 mg PO TID PRN (Reason: muscle spasm) Qty: 30 0RF naproxen 500 mg tablet 500 mg PO BID PRN (Reason: pain) Qty: 30 0RF baclofen 10 mg tablet 10 mg PO BID PRN (Reason: muscle spasm) Qty: 30 0RF ibuprofen 800 mg tablet 800 mg PO TID PRN (Reason: pain) Qty: 30 0RF ibuprofen 800 mg tablet 800 mg PO TID PRN (Reason: pain) Qty: 30 0RF ibuprofen 600 mg tablet 600 mg PO Q6H PRN (Reason: pain) Qty: 30 0RF ibuprofen 600 mg tablet 600 mg PO Q8H PRN (Reason: pain) Qty: 20 0RF acetaminophen 500 mg capsule 500 mg PO Q6H PRN (Reason: pain) Qty: 30 0RF lidocaine [Lidoderm] 5 % adhesive patch,medicated 2 patch topical QDAY PRN (Reason: pain) Qty: 30 0RF Rx Instructions: leave on most painful area for up to 12 hrs cyclobenzaprine 5 mg tablet 5 mg PO TID PRN (Reason: muscle spasm) Qty: 15 0RF naproxen 500 mg tablet 500 mg PO BID PRN (Reason: pain) Qty: 14 0RF sulfamethoxazole-trimethoprim [Bactrim DS] 800-160 mg tablet 1 tab PO BID Qty: 14 0RF naproxen 500 mg tablet 500 mg PO BID PRN (Reason: pain) Qty: 30 0RF tamsulosin [Flomax] 0.4 mg capsule 0.4 mg PO QDAY Qty: 30 0RF ibuprofen 600 mg tablet 600 mg PO Q6H PRN (Reason: pain) Qty: 30 0RF methocarbamol 500 mg tablet 1,000 mg PO Q8H PRN (Reason: pain) Qty: 30 0RF naproxen [Naprosyn] 500 mg tablet 500 mg PO BID Qty: 14 0RF ibuprofen 600 mg tablet 600 mg PO Q6H PRN (Reason: fever or pain) Qty: 30 0RF cyclobenzaprine 5 mg tablet 5 mg PO TID PRN (Reason: muscle spasm) Qty: 14 0RF naproxen 500 mg tablet 500 mg PO BID PRN (Reason: pain) Qty: 30 0RF cyclobenzaprine 5 mg tablet 5 mg PO TID PRN (Reason: muscle spasm) Qty: 30 0RF acetaminophen 500 mg capsule 500 mg PO Q6H PRN (Reason: pain) Qty: 30 0RF Referrals: Lavell (PCP),MD Cody [Primary Care Provider] - In 1 week Problem List Clinical Impression: Chronic leg pain Patient/Caregiver Discharge Instructions Education Materials: ED Chronic Pain Additional Instructions: Please follow-up with your primary care provider in the next 24 to 48 hours For any evidence of worsening signs or symptoms return to the emergency room immediately Print Language: Uzbek Stand Alone Forms: Tami Award Info., Patient Portal Info Letter PA/SURVEY RESEARCHER Supervising Physician FAINA/DEVYN Supervising Physician: Dr. CORTEZ
== END 2025-04-16 16:01 | disposition home or self-care (01) ==
PROVIDERS: Emergency Provider Emergency Medicine; PCP Family Medicine
DX: M79.604 Pain in right leg (principal); M79.605 Pain in left leg; R10.30 Lower abdominal pain, unspecified; G89.29 Other chronic pain; Z59.00 Homelessness unspecified
CPT/HCPCS: 99281

== ENCOUNTER 2025-04-16 19:16 | Emergency (ER) | payer MEDICAID, SELFPAY ==
[2025-04-16 19:16] VITALS: PULSE 74; RESP 16; O2SAT 98
[2025-04-16 19:47] VITALS: BP 102/79; PULSE 86; RESP 18; TEMP 36.6; O2SAT 96; BMI 28.8
== END 2025-04-16 22:38 | disposition left against medical advice (07) ==
PROVIDERS: Emergency Provider Nurse Practitioner Family; PCP Family Medicine
DX: Z53.21 Procedure and treatment not carried out due to patient leaving prior to being seen by health care provider (principal)
CPT/HCPCS: 99281

== ENCOUNTER 2025-04-17 10:15 | Emergency (ER) | payer MEDICAID, SELFPAY ==
[2025-04-17 10:15] VITALS: BMI 27.3
[2025-04-17 10:34] VITALS: BP 135/81; PULSE 82; RESP 18; TEMP 36.8; TEMP 37.4; O2SAT 97
--- NOTE | 2025-04-17 10:34 | EDRME_ITS ---
Rapid Medical Screening Exam [facility] Arrival date/time: 04/17/25 10:15 44-year-old male with a history of chronic leg pain presents to the emergency room with a chief complaint of bilateral lower leg pain. I spoke to the social security specialist and the patient will have an evaluation as there is concerns for the patient being gravely disabled. The patient has multiple visits to the emergency room on a daily basis. The patient presents to the emergency room and will sometimes ask for basic needs such as food, water, or medication for his pain. The patient has been sent multiple prescriptions they have never been picked up. The patient does not follow-up with his primary care provider. The patient has a history of substance abuse and homelessness. I have greeted and performed a focused initial assessment of this patient. A comprehensive ED assessment and evaluation of the patient, analysis of all test results, and completion of the medical decision making process will be conducted by additional ED providers. Chief Complaint: Extremity Problem,Nontraumatic Vital signs reviewed by provider: Yes
--- NOTE | 2025-04-17 10:34 | PC.CC ---
Brooke MARAVILLA consulted with Emilie PATRICK regarding concerns of patient being gravely disabled due to patient's frequent visits to the ED for basic needs such as meal and water. Patient will have a mental health evaluation upon being medically cleared.
[2025-04-17 10:48] LABS: Collection Type, Urine Clean Catch; Squamous Epithelial Cell,Urine 0 /hpf (0-5)
[2025-04-17 10:58] LABS: Bilirubin,Urine Negative (Negative); Blood,Urine Negative (Negative); Clarity,Urine Clear (Clear/Hazy); Color,Urine Lt-Yellow (Lt Yel-Yel); Culture Indicated,Urine Not Indicated; Glucose, Urine Negative (Negative); Hyaline Casts,Urine < 1 /hpf (0-1); Ketones,Urine Negative (Negative); Leukocyte Esterase,Urine Negative (Negative); Nitrite,Urine Negative (Negative); PH,Urine 5.5 (5.0-7.0); Protein,Urine Negative (Neg - Trace); RBC,Urine 3 /hpf (0-3); Specific Gravity,Urine 1.027 (1.001-1.035); Urobilinogen,Urine Negative mg/dL (0.0-1.0); WBC,Urine 1 /hpf (0-5)
[2025-04-17 11:02] LABS: Amphetamine/Methamp Scrn,U Negative (Negative); Barbiturate Screen,Urine Negative (Negative); Benzodiazepines Screen,Urine Negative (Negative); Benzoylecgonine Screen, Ur Negative (Negative); Fentanyl Screen,Urine Negative (Negative); Opiate Screen,Urine Negative (Negative); THC Screen,Urine Negative (Negative)
[2025-04-17 11:03] LABS: Basophils % (Auto) 1 % (0-2.5); Eosinophils # (Auto) 0.1 Thou/mm3 (0.0-0.5); Eosinophils % (Auto) 2 % (0-10); Hematocrit 39.4 % (41.0-53.0); Hemoglobin 13.2 g/dL (13.5-16.0); Immature Granulocytes % (Auto) 0 % (0-0); Immature Granulocytes Auto 0.02 Thou/mm3 (0.00-0.00); Lymphocytes # (Auto) 1.1 Thou/mm3 (1.0-4.8); Lymphocytes % (Auto) 21 % (10-50); Mean Corpuscular HGB Conc 33.5 g/dl (31.0-37.0); Mean Corpuscular Volume 93 fL (80-100); Monocytes # (Auto) 0.3 Thou/mm3 (0.0-0.8); Monocytes % (Auto) 5 % (0-12); Neutrophils # (Auto) 3.6 Thou/mm3 (1.8-7.7); Neutrophils % (Auto) 71 % (37-80); Nucleated Red Blood Cell % 0 /100 WBC (0); Platelet Count 292 Thou/mm3 (140-440); RDW Standard Deviation 43.8 fL (35.1-43.9); Red Blood Count 4.26 Miln/mm3 (4.50-5.90); White Blood Count 5.1 Thou/mm3 (3.8-10.6)
[2025-04-17 11:27] LABS: Alanine Aminotransferase 21 U/L (10-49); Albumin, Serum 4.3 gm/dL (3.5-5.0); Albumin/Globulin Ratio 1.8 (1.2-2.2); Alkaline Phosphatase 71 U/L (46-116); Anion Gap 8 (7-16); Aspartate Amino Transferase 17 U/L (0-34); BUN/Creatinine Ratio 23 Ratio (12-20); Bilirubin,Total 0.5 mg/dL (0.3-1.2); Blood Urea Nitrogen 18 mg/dL (9-23); Calcium 8.4 mg/dL (8.3-10.6); Calcium (Corrected) 8.4 mg/dL (8.5-10.1); Carbon Dioxide 24.1 mMol/L (20.0-31.0); Chloride 111 mMol/L (98-107); Creatine Kinase 90 U/L (34-171); Creatinine (Component) 0.8 mg/dL (0.6-1.3); Estimated Creatinine Clearance 116.5 mL/min (>60); Free T4 (Free Thyroxine) 0.97 ng/dL (0.89-1.76); Globulin 2.4 gm/dL (2.3-3.5); Glucose 94 mg/dL (74-106); Osmolality,Calculated 286 (275-295); Potassium 3.8 mMol/L (3.4-5.1); Sodium 143 mMol/L (136-145); Total Protein 6.7 gm/dL (5.7-8.2); Troponin I < 0.002 ng/mL (0.0-0.045); eGFR > 60 See Note
[2025-04-17 11:28] LABS: B-Type Natriuretic Peptide 38 pg/mL (0-100)
--- NOTE | 2025-04-17 11:39 | EDNOTE_ITS ---
ED Extremity Problem RME/HPI General Chief complaint: Extremity Problem,Nontraumatic Stated complaint: CHRONIC LEG PAIN Time Seen by Provider: 04/17/25 11:30 Arrival date/time: 04/17/25 10:15 RME / HPI RME / HPI Narrative: 44-year-old male with a history of chronic leg pain presents to the emergency room with a chief complaint of bilateral lower leg pain. I spoke to the hospice social worker and the patient will have an evaluation as there is concerns for the patient being gravely disabled. The patient has multiple visits to the emergency room on a daily basis. The patient presents to the emergency room and will sometimes ask for basic needs such as food, water, or medication for his pain. The patient has been sent multiple prescriptions they have never been picked up. The patient does not follow-up with his primary care provider. The patient has a history of substance abuse and homelessness. Related Data Previous Rx's ?Medication ?Instructions ?Recorded sulfamethoxazole 800 1 tab PO BID #14 tabs mg-trimethoprim 160 mg tablet (Bactrim DS) cyclobenzaprine 5 mg tablet 5 mg PO TID PRN muscle spa sm #30 07/23/23 tabs naproxen 500 mg tablet 500 mg PO BID PRN pain #30 t abs 07/23/23 naproxen 500 mg tablet 500 mg PO BID PRN pain #30 t abs 08/08/23 tamsulosin 0.4 mg capsule (Flomax) 0.4 mg PO QDAY #30 caps 08/08/23 baclofen 10 mg tablet 10 mg PO BID PRN muscle spas m #30 08/14/23 tabs naproxen 500 mg tablet 500 mg PO BID PRN pain #30 t abs 08/14/23 ibuprofen 800 mg tablet 800 mg PO TID PRN pain #30 t abs 08/28/23 ibuprofen 600 mg tablet 600 mg PO Q6H PRN pain #30 t abs 01/27/24 methocarbamol 500 mg tablet 1,000 mg (2 x 500 mg) PO Q 8H PRN 01/27/24 pain #30 tabs naproxen 500 mg tablet (Naprosyn) 500 mg PO BID #14 ta bs 03/15/24 ibuprofen 800 mg tablet 800 mg PO TID PRN pain #30 t abs 04/02/24 cyclobenzaprine 5 mg tablet 5 mg PO TID PRN muscle spa sm #14 04/07/24 tabs ibuprofen 600 mg tablet 600 mg PO Q6H PRN fever or p ain 04/07/24 #30 tabs ibuprofen 600 mg tablet 600 mg PO Q6H PRN pain #30 t abs 04/07/24 cyclobenzaprine 5 mg tablet 5 mg PO TID PRN muscle spa sm #30 04/11/24 tabs naproxen 500 mg tablet 500 mg PO BID PRN pain #30 t abs 04/11/24 ibuprofen 600 mg tablet 600 mg PO Q8H PRN pain #20 t abs 11/03/24 acetaminophen 500 mg capsule 500 mg PO Q6H PRN pain #3 0 caps 12/03/24 acetaminophen 500 mg capsule 500 mg PO Q6H PRN pain #3 0 caps 12/15/24 cyclobenzaprine 5 mg tablet 5 mg PO TID PRN muscle spa sm #15 12/20/24 tabs lidocaine 5 % topical patch 2 patch topical QDAY PRN p ain #30 12/20/24 (Lidoderm) ea naproxen 500 mg tablet 500 mg PO BID PRN pain #14 t abs 04/04/25 Allergies Allergy/AdvReac Type Severity Reaction Status Date / Time No Known Allergies Allergy Verified 04/17/25 18:44 Review of Systems Review of Systems Narrative Review of Systems: Review of system reviewed and within normal limits except mentioned in HPI ED Exam Narrative Physical exam: VITAL SIGNS: Reviewed. GENERAL APPEARANCE: Alert and interactive, follows simple commands, no acute distress, HEAD AND FACE: Non-traumatic. ENT: PERRL, pink conjunctivitis, eyelid no trauma, Mucous membrane moist. NECK: Supple, nontender, no nuchal rigidity. CHEST: No tenderness, no crepitus, no paradoxical movement, no retractions. LUNGS: Clear, well ventilated, symmetric, no rales, no wheezing, no ronchi, no stridor, good breath sounds bilaterally. HEART: Regular rate, regular rhythm, no murmur, no gallops. ABDOMEN: Soft, positive bowel sounds, nondistended, no guarding, nontender, no rebound, no masses, RECTAL: Deferred. GENITAL: Deferred. NEUROLOGICAL: Gross motor function intact sensory function intact, Appropriate for age. MUSCULOSKELETAL: low back nontender, full range of motion. EXTREMITIES: Bilateral lower leg tenderness no swelling no deformity no redness, full range of motion. SKIN: Color pink, dry, no rash, no lacerations, no abrasions, no contusions. LYMPHATICS: Deferred. Course Quality Measures none Orders Category Date Time Status BNP [B-Type Natriuretic Peptide] Stat Lab 04/17/25 10:50 Completed CBC Stat Lab 04/17/25 10:50 Completed CK [Creatine Kinase] Stat Lab 04/17/25 10:50 Completed CMP [Comprehensive Metabolic Panel] Stat Lab 04/17/25 10:50 Completed Drug Screen,Urine Stat Lab 04/17/25 10:35 Completed Free T4 (Free Thyroxine) Stat Lab 04/17/25 10:50 Completed TSH [Thyroid Stimulating Hormone] Stat Lab 04/17/25 10:50 Completed Troponin I Stat Lab 04/17/25 10:50 Completed UA, C/S IF [Urinalysis, C/S if Indicated] Stat Lab 04/17/25 10:35 Completed Referral Truss Designer NOW 04/17/25 11:38 Completed Vital Signs Vital signs: Vital Signs Temperature 98.3 F 04/17/25 10:34 Pulse Rate 82 04/17/25 10:34 Respiratory Rate 18 04/17/25 10:34 Blood Pressure 135/81 H 04/17/25 10:34 Pulse Oximetry (%) 97 04/17/25 10:34 Oxygen Delivery Method Room Air 04/17/25 10:34 Extremity Problem MDM Narrative MDM Narrative:: 44-year-old male with a history of chronic leg pain presents to the emergency room with a chief complaint of bilateral lower leg pain. I spoke to the hospice social worker and the patient will have an evaluation as there is concerns for the patient being gravely disabled. The patient has multiple visits to the emergency room on a daily basis. The patient presents to the emergency room and will sometimes ask for basic needs such as food, water, or medication for his pain. The patient has been sent multiple prescriptions they have never been picked up. The patient does not follow-up with his primary care provider. The patient has a history of substance abuse and homelessness. Patient was referred to hospice social worker, and was given resources. However patient eloped from the emergency Patient data External records reviewed:: None Clinical information provided by:: patient Social determinants that could affect healthcare access:: none Patient has the following chronic illnesses:: Homelessness How is presenting disease/condition affected by chronic disease/condition?: no chronic disease Evaluation data The following diagnostics were reviewed and interpreted by me:: lab results Lab and/or radiology exams considered but not ordered:: None Interpretation Summary: Patient's workup today came back unremarkable Medications / Prescriptions Medications or Prescriptions considered but not ordered:: Plan Medication administrations:: None Consultations Consultation(s) initiated? (list below): No Diagnosis Extremity Problem Differential Diagnosis: lower extremity edema and other (Chronic leg pain, homelessness) Most likely diagnosis given after review of the tests above:: Clonic leg pain, homelessness Admission Indicated Admission indicated?: not indicated Admission Request Was there a request for admission?: No Disposition Plan Disposition Plan: other (specify) Discharge Attestation Discharge Attestation: Elopement Discharge Plan Plan Patient Disposition: Elopement Prescriptions/Referrals Prescriptions/Med Rec: No Action naproxen 500 mg tablet 500 mg PO BID PRN (Reason: pain) Qty: 30 0RF cyclobenzaprine 5 mg tablet 5 mg PO TID PRN (Reason: muscle spasm) Qty: 30 0RF naproxen 500 mg tablet 500 mg PO BID PRN (Reason: pain) Qty: 30 0RF baclofen 10 mg tablet 10 mg PO BID PRN (Reason: muscle spasm) Qty: 30 0RF ibuprofen 800 mg tablet 800 mg PO TID PRN (Reason: pain) Qty: 30 0RF ibuprofen 800 mg tablet 800 mg PO TID PRN (Reason: pain) Qty: 30 0RF ibuprofen 600 mg tablet 600 mg PO Q6H PRN (Reason: pain) Qty: 30 0RF ibuprofen 600 mg tablet 600 mg PO Q8H PRN (Reason: pain) Qty: 20 0RF acetaminophen 500 mg capsule 500 mg PO Q6H PRN (Reason: pain) Qty: 30 0RF lidocaine [Lidoderm] 5 % adhesive patch,medicated 2 patch topical QDAY PRN (Reason: pain) Qty: 30 0RF Rx Instructions: leave on most painful area for up to 12 hrs cyclobenzaprine 5 mg tablet 5 mg PO TID PRN (Reason: muscle spasm) Qty: 15 0RF naproxen 500 mg tablet 500 mg PO BID PRN (Reason: pain) Qty: 14 0RF sulfamethoxazole-trimethoprim [Bactrim DS] 800-160 mg tablet 1 tab PO BID Qty: 14 0RF naproxen 500 mg tablet 500 mg PO BID PRN (Reason: pain) Qty: 30 0RF tamsulosin [Flomax] 0.4 mg capsule 0.4 mg PO QDAY Qty: 30 0RF ibuprofen 600 mg tablet 600 mg PO Q6H PRN (Reason: pain) Qty: 30 0RF methocarbamol 500 mg tablet 1,000 mg PO Q8H PRN (Reason: pain) Qty: 30 0RF naproxen [Naprosyn] 500 mg tablet 500 mg PO BID Qty: 14 0RF ibuprofen 600 mg tablet 600 mg PO Q6H PRN (Reason: fever or pain) Qty: 30 0RF cyclobenzaprine 5 mg tablet 5 mg PO TID PRN (Reason: muscle spasm) Qty: 14 0RF naproxen 500 mg tablet 500 mg PO BID PRN (Reason: pain) Qty: 30 0RF cyclobenzaprine 5 mg tablet 5 mg PO TID PRN (Reason: muscle spasm) Qty: 30 0RF acetaminophen 500 mg capsule 500 mg PO Q6H PRN (Reason: pain) Qty: 30 0RF Referrals: Cody Monte MD ([place]) [Primary Care Provider] - In 1 week Problem List Clinical Impression: Chronic leg pain, Homelessness Patient/Caregiver Discharge Instructions Print Language: Sierra Leonean
--- NOTE | 2025-04-17 13:22 | PC.LAC ---
PT SEEN LEAVING ER AT THIS TIME
--- NOTE | 2025-04-17 13:42 | PC.CC ---
Patient is a 44 year-old male who presents to the hospital for chronic leg pain. TAIWO Cox reports patient has been present at the ED multiple times in one day and fails to picker and packer prescription medication. DATAPOWER DEVELOPER consulted with this entry writer for evaluation for concerns of gravely disable. Emilie PATRICK met with patient face to face introduced self, role, and reason for visit to patient. Patient appears to be alert and oriented to self, location, and situation. ASW explained limits of confidentiality to the patient. Patient made appropriate eye contact and presents as calm and euthymic throughout assessment. Patient presented with good insight and linear thought process. Patient reports he has been homeless for 6 years and comes to the hospital to obtain medication for his leg pain. ASW explored with patient if prescription had been prescribed the reason he did not pick it up. Patient stated, ?I don?t know.? Patient stated, ?I want help with placement.? ASW explored with patient what he meant by statement. Patient reports he wants help for his substance use ?meth.? Patient disclosed the last time he used was 4 days ago and was previously staying at the [facility] in [place]. Patient reports he has not mental health history. At the time of encounter patient denied suicidal and homicidal ideations, visual and auditory hallucinations. Patient denied past suicide attempts and reports he has never been placed on a 5150-hold. Patient reports he is able to ambulate independently and complete his own ADLs. Per patient his source of income is food stamps and receives [employer]. Patient reports he has no family that is local. ASW made contact with [facility] who reports patient is not connected to them. Upon clinical consultation with Shirley PADRON patient does not meet criteria for 5150-hold for gravely disabled. Patient provided with Alcohol and Other Drug resources, General Acute Hospital Resource Guide to Shelters, and the [address]. Emilie PATRICK was made aware patient eloped prior to being discharged.
--- NOTE | 2025-04-17 13:43 | PC.NURSE ---
PER FIREWORKS ASSEMBLER, PT WALKED OUT AROUND [id number].
== END 2025-04-17 13:44 | disposition left against medical advice (07) ==
PROVIDERS: Nurse Practitioner Family; Emergency Provider Emergency Medicine; PCP Family Medicine
DX: G89.29 Other chronic pain (principal); M79.661 Pain in right lower leg; M79.662 Pain in left lower leg; Z59.00 Homelessness unspecified
CPT/HCPCS: 36415; 80053; 80307; 81001; 82550; 83880; 84439; 84443; 84484; 85025; 99281

== ENCOUNTER 2025-04-17 18:41 | Emergency (ER) | payer MEDICAID, SELFPAY ==
[2025-04-17 18:42] VITALS: BMI 25.9
[2025-04-17 19:23] VITALS: BP 123/81; PULSE 100; RESP 18; TEMP 36.6; O2SAT 100
--- NOTE | 2025-04-17 19:45 | PC.NURSE ---
CALLED PT IN ER LOBBY AND OUTSIDE OF ER AND NO ANSWER.
--- NOTE | 2025-04-17 19:59 | PD.EDADDENDU ---
Emergency Room Addendum Addendum Narrative: When I looked for the patient for evaluation, I was told the patient eloped. Stephen Gallardo MD
--- NOTE | 2025-04-17 20:00 | PC.NURSE ---
CALLED PT IN ER LOBBY AND OUTSIDE OF ER AND NO ANSWER.
== END 2025-04-17 20:15 | disposition left against medical advice (07) ==
PROVIDERS: Emergency Provider Emergency Medicine
DX: Z53.21 Procedure and treatment not carried out due to patient leaving prior to being seen by health care provider (principal)
CPT/HCPCS: 99281

== ENCOUNTER 2025-04-18 07:48 | Emergency (ER) | payer MEDICAID, SELFPAY ==
[2025-04-18 07:49] VITALS: BMI 27.3
--- NOTE | 2025-04-18 07:54 | EDNOTE_ITS ---
ED Extremity Problem RME/HPI General Chief complaint: Extremity Problem,Nontraumatic Stated complaint: BILATERAL LEG PAIN Time Seen by Provider: 04/18/25 07:53 Arrival date/time: 04/18/25 07:48 44-year-old male with history of methamphetamine use and homelessness with frequent trips to the ER presents emergency department today for complaints of bilateral leg pain reports he is hungry. Patient reports no chest pain or shortness of breath no headache dizziness weakness Limitations: no limitations Related Data Previous Rx's ?Medication ?Instructions ?Recorded sulfamethoxazole 800 1 tab PO BID #14 tabs mg-trimethoprim 160 mg tablet (Bactrim DS) cyclobenzaprine 5 mg tablet 5 mg PO TID PRN muscle spa sm #30 07/23/23 tabs naproxen 500 mg tablet 500 mg PO BID PRN pain #30 t abs 07/23/23 naproxen 500 mg tablet 500 mg PO BID PRN pain #30 t abs 08/08/23 tamsulosin 0.4 mg capsule (Flomax) 0.4 mg PO QDAY #30 caps 08/08/23 baclofen 10 mg tablet 10 mg PO BID PRN muscle spas m #30 08/14/23 tabs naproxen 500 mg tablet 500 mg PO BID PRN pain #30 t abs 08/14/23 ibuprofen 800 mg tablet 800 mg PO TID PRN pain #30 t abs 08/28/23 ibuprofen 600 mg tablet 600 mg PO Q6H PRN pain #30 t abs 01/27/24 methocarbamol 500 mg tablet 1,000 mg (2 x 500 mg) PO Q 8H PRN 01/27/24 pain #30 tabs naproxen 500 mg tablet (Naprosyn) 500 mg PO BID #14 ta bs 03/15/24 ibuprofen 800 mg tablet 800 mg PO TID PRN pain #30 t abs 04/02/24 cyclobenzaprine 5 mg tablet 5 mg PO TID PRN muscle spa sm #14 04/07/24 tabs ibuprofen 600 mg tablet 600 mg PO Q6H PRN fever or p ain 04/07/24 #30 tabs ibuprofen 600 mg tablet 600 mg PO Q6H PRN pain #30 t abs 04/07/24 cyclobenzaprine 5 mg tablet 5 mg PO TID PRN muscle spa sm #30 04/11/24 tabs naproxen 500 mg tablet 500 mg PO BID PRN pain #30 t abs 04/11/24 ibuprofen 600 mg tablet 600 mg PO Q8H PRN pain #20 t abs 11/03/24 acetaminophen 500 mg capsule 500 mg PO Q6H PRN pain #3 0 caps 12/03/24 acetaminophen 500 mg capsule 500 mg PO Q6H PRN pain #3 0 caps 12/15/24 cyclobenzaprine 5 mg tablet 5 mg PO TID PRN muscle spa sm #15 12/20/24 tabs lidocaine 5 % topical patch 2 patch topical QDAY PRN p ain #30 12/20/24 (Lidoderm) ea naproxen 500 mg tablet 500 mg PO BID PRN pain #14 t abs 04/04/25 Allergies Allergy/AdvReac Type Severity Reaction Status Date / Time No Known Allergies Allergy Verified 04/18/25 07:51 Review of Systems Review of Systems Systems Reviewed: All systems reviewed, normal except as documented Constitutional Constitutional: Reports system reviewed and no additional complaints, except as documented, Denies fever(s) and Denies headache(s) Eyes Eyes: Reports system reviewed and no additional complaints, except as documented and Denies blurry vision ENT Ears, Nose, Mouth, and Throat: Reports system reviewed and no additional complaints, except as documented, Denies headache(s), Denies nasal congestion and Denies nasal discharge Cardiovascular Cardiovascular: Reports system reviewed and no additional complaints, except as documented, Denies chest pain and Denies dyspnea Respiratory Respiratory: Reports system reviewed and no additional complaints, except as documented, Denies chest congestion, Denies cough and Denies dyspnea Gastrointestinal Gastrointestinal: Reports system reviewed and no additional complaints, except as documented and Denies abdominal pain Integumentary/Breasts Skin/Breast: Reports system reviewed and no additional complaints, except as documented and Denies rash Neurologic Neurologic: Reports system reviewed and no additional complaints, except as documented, Reports as per HPI and Denies headache(s) Past Medical History Past Medical History NEUROLOGIC: Positive Cerebrovascular Accident; Negative Neurological Disorders CARDIAC: Positive Myocardial Infarction and Hypercholesterolemia; Negative Cardiac Disorders or Congestive Heart Failure RESPIRATORY: Negative Chronic Obstructive Pulmonary Disease (COPD) GASTROINTESTINAL: Negative Gastrointestinal Disorders GENITOURINARY: Negative Genitourinary Disorders or Renal Disease MUSCULOSKELETAL: Negative Musculoskeletal Disorders ENDOCRINE: Negative Endocrine Disorders, Diabetes Mellitus Type 1 or Diabetes Mellitus Type 2 HEMATOLOGIC: Negative Blood Disorders OTHER HISTORY: Negative Autoimmune Disease or Clostridium Difficile Social History SMOKING STATUS: Never smoker SUBSTANCE USE: methamphetamine ED Exam General Limitations: Present no limitations General appearance: Present alert and in no apparent distress Head Head exam: Present atraumatic, normocephalic and normal inspection Eye Eye exam: Present normal appearance, PERRL and EOMI; Absent conjunctival injection ENT ENT exam: Present normal exam, normal oropharynx and mucous membranes moist Neck Neck exam: Present normal inspection, full ROM and trachea midline Chest Chest inspection: Present normal inspection and symmetric chest wall rise Respiratory Respiratory exam: Present normal lung sounds bilaterally; Absent respiratory distress, wheezes, stridor or accessory muscle use Cardiovascular Cardiovascular exam: Present regular rate, normal rhythm and normal heart sounds Abdominal Exam Abdominal exam: Present soft and normal bowel sounds; Absent distention, tenderness, guarding, rebound or rigidity Extremities Exam Extremities exam: Present normal inspection and full ROM Back Exam Back exam: Present normal inspection and full ROM Neurological Exam Neurological exam: Present alert, oriented X3, CN II-XII intact, normal gait and reflexes normal; Absent motor sensory deficit Psychiatric Psychiatric exam: Present normal affect and normal mood Skin Skin exam: Present warm, dry, intact and normal color; Absent rash Course Quality Measures none Orders Category Date Time Status Ibuprofen Tab [Motrin Tab] Med 04/18/25 07:52 Discontinued 600 mg PO X1 ONE Vital Signs Vital signs: Vital Signs Temperature 98.3 F 04/18/25 07:58 Pulse Rate 68 04/18/25 07:58 Respiratory Rate 16 04/18/25 07:58 Blood Pressure 121/84 04/18/25 07:58 Pulse Oximetry (%) 98 04/18/25 07:58 Oxygen Delivery Method Room Air 04/18/25 07:58 O2 saturation 98% room air within normal limits Extremity Problem MDM Narrative MDM Narrative:: 44-year-old male with history of methamphetamine use and homelessness with frequent trips to the ER presents emergency department today for complaints of bilateral leg pain reports he is hungry. Patient reports no chest pain or shortness of breath no headache dizziness weakness Patient was given food ibuprofen and water Patient walks without difficulty Patient discharged home in no distress to follow-up with primary care doctor in the next 24 to 48 hours and for any worsening symptoms to return to the ER immediately Patient data External records reviewed:: [facility] previous records Clinical information provided by:: patient Social determinants that could affect healthcare access:: housing Patient has the following chronic illnesses:: Homelessness, methamphetamine abuse How is presenting disease/condition affected by chronic disease/condition?: caused by Evaluation data The following diagnostics were reviewed and interpreted by me:: other (specify) (N/A) Lab and/or radiology exams considered but not ordered:: Considered not ordered Interpretation Summary: N/A Medications / Prescriptions Medications or Prescriptions considered but not ordered:: Given Medication administrations:: Medication Administration History Discontinued Medications Ibuprofen (Ibuprofen Tab 600 Mg Tablet) 600 mg PO X1 ONE Stop: 04/18/25 07:53 Last Admin: 04/18/25 08:09 Dose: 600 mg Documented By: OA Given Consultations Consultation(s) initiated? (list below): No Diagnosis Extremity Problem Differential Diagnosis: other (Leg pain, homelessness, methamphetamine use) Most likely diagnosis given after review of the tests above:: Chronic leg pain, homelessness Admission Indicated Admission indicated?: not indicated Admission Request Was there a request for admission?: No Disposition Plan Disposition Plan: Discharge Discharge Attestation Discharge Attestation: The patient and all family members were given an opportunity to ask questions and understood the discharge instructions. Discharge instructions specifically effects, indications for sooner follow up or return to the emergency department, and the expected course of current diagnosis. Patient condition: Stable Discharge Plan Plan Patient Disposition: HOME (Self Care) Discharge Disposition comment: Stable Prescriptions/Referrals Prescriptions/Med Rec: No Action naproxen 500 mg tablet 500 mg PO BID PRN (Reason: pain) Qty: 30 0RF cyclobenzaprine 5 mg tablet 5 mg PO TID PRN (Reason: muscle spasm) Qty: 30 0RF naproxen 500 mg tablet 500 mg PO BID PRN (Reason: pain) Qty: 30 0RF baclofen 10 mg tablet 10 mg PO BID PRN (Reason: muscle spasm) Qty: 30 0RF ibuprofen 800 mg tablet 800 mg PO TID PRN (Reason: pain) Qty: 30 0RF ibuprofen 800 mg tablet 800 mg PO TID PRN (Reason: pain) Qty: 30 0RF ibuprofen 600 mg tablet 600 mg PO Q6H PRN (Reason: pain) Qty: 30 0RF ibuprofen 600 mg tablet 600 mg PO Q8H PRN (Reason: pain) Qty: 20 0RF acetaminophen 500 mg capsule 500 mg PO Q6H PRN (Reason: pain) Qty: 30 0RF lidocaine [Lidoderm] 5 % adhesive patch,medicated 2 patch topical QDAY PRN (Reason: pain) Qty: 30 0RF Rx Instructions: leave on most painful area for up to 12 hrs cyclobenzaprine 5 mg tablet 5 mg PO TID PRN (Reason: muscle spasm) Qty: 15 0RF naproxen 500 mg tablet 500 mg PO BID PRN (Reason: pain) Qty: 14 0RF sulfamethoxazole-trimethoprim [Bactrim DS] 800-160 mg tablet 1 tab PO BID Qty: 14 0RF naproxen 500 mg tablet 500 mg PO BID PRN (Reason: pain) Qty: 30 0RF tamsulosin [Flomax] 0.4 mg capsule 0.4 mg PO QDAY Qty: 30 0RF ibuprofen 600 mg tablet 600 mg PO Q6H PRN (Reason: pain) Qty: 30 0RF methocarbamol 500 mg tablet 1,000 mg PO Q8H PRN (Reason: pain) Qty: 30 0RF naproxen [Naprosyn] 500 mg tablet 500 mg PO BID Qty: 14 0RF ibuprofen 600 mg tablet 600 mg PO Q6H PRN (Reason: fever or pain) Qty: 30 0RF cyclobenzaprine 5 mg tablet 5 mg PO TID PRN (Reason: muscle spasm) Qty: 14 0RF naproxen 500 mg tablet 500 mg PO BID PRN (Reason: pain) Qty: 30 0RF cyclobenzaprine 5 mg tablet 5 mg PO TID PRN (Reason: muscle spasm) Qty: 30 0RF acetaminophen 500 mg capsule 500 mg PO Q6H PRN (Reason: pain) Qty: 30 0RF Problem List Clinical Impression: Chronic leg pain Patient/Caregiver Discharge Instructions Education Materials: ED RICE Additional Instructions: Please follow up with your primary care doctor in the next 24-48hrs for any worsening symptoms return here immediately Print Language: Citizen Of [place] Stand Alone Forms: Tami Award Info., Patient Portal Info Letter PA/CLINICAL UNIT EDUCATOR Supervising Physician PA/CLINICAL UNIT EDUCATOR Supervising Physician: dr atkinson
[2025-04-18 07:58] VITALS: BP 121/84; PULSE 68; RESP 16; TEMP 36.8; O2SAT 98
[2025-04-18] MEDS: IBUPROFEN TAB 600 MG TABLET PO (08:09)
== END 2025-04-18 08:54 | disposition home or self-care (01) ==
LOC: SERX 08:14
PROVIDERS: Emergency Provider Emergency Medicine
DX: M79.604 Pain in right leg (principal); M79.605 Pain in left leg; G89.29 Other chronic pain; Z59.00 Homelessness unspecified
CPT/HCPCS: 99282; A9270

== ENCOUNTER 2025-04-18 18:30 | Emergency (ER) | payer MEDICAID, SELFPAY ==
[2025-04-18 18:33] VITALS: PULSE 96; RESP 18; O2SAT 96; BMI 27.3
--- NOTE | 2025-04-18 20:11 | PD.EDADDENDU ---
Emergency Room Addendum Addendum Narrative: I was told the patient eloped before I saw the patient. Stephen Gallardo MD
== END 2025-04-18 19:41 | disposition left against medical advice (07) ==
PROVIDERS: Emergency Provider Emergency Medicine
DX: Z53.21 Procedure and treatment not carried out due to patient leaving prior to being seen by health care provider (principal)

== ENCOUNTER 2025-04-19 14:29 | Emergency (ER) | payer MEDICAID, SELFPAY ==
[2025-04-19 15:38] VITALS: BP 132/89; PULSE 73; RESP 18; TEMP 36.9; O2SAT 98; BMI 25.9
--- NOTE | 2025-04-19 16:01 | PD.EDLOWEX ---
Lower Extremity Injury RME/HPI General Chief Complaint: Extremity Injury, Lower Stated Complaint: Bilateral leg pain Time Seen by Provider: 04/19/25 15:01 Arrival date/time: 04/19/25 14:29 This is a 44 year male that is very well know in the ED. Pt comes in with complaints of chronic leg pain. Pt states he had an accident. Pt had a bowel movement Related Data Previous Rx's ?Medication ?Instructions ?Recorded sulfamethoxazole 800 1 tab PO BID #14 tabs 03/09/23 mg-trimethoprim 160 mg tablet (Bactrim DS) cyclobenzaprine 5 mg tablet 5 mg PO TID PRN muscle spasm #30 07/23/23 tabs naproxen 500 mg tablet 500 mg PO BID PRN pain #30 tabs 07/23/23 naproxen 500 mg tablet 500 mg PO BID PRN pain #30 tabs 08/08/23 tamsulosin 0.4 mg capsule (Flomax) 0.4 mg PO QDAY #30 caps 08/08/23 baclofen 10 mg tablet 10 mg PO BID PRN muscle spasm #30 08/14/23 tabs naproxen 500 mg tablet 500 mg PO BID PRN pain #30 tabs 08/14/23 ibuprofen 800 mg tablet 800 mg PO TID PRN pain #30 tabs 08/28/23 ibuprofen 600 mg tablet 600 mg PO Q6H PRN pain #30 tabs 01/27/24 methocarbamol 500 mg tablet 1,000 mg (2 x 500 mg) PO Q8H PRN 01/27/24 pain #30 tabs naproxen 500 mg tablet (Naprosyn) 500 mg PO BID #14 tabs 03/15/24 ibuprofen 800 mg tablet 800 mg PO TID PRN pain #30 tabs 04/02/24 cyclobenzaprine 5 mg tablet 5 mg PO TID PRN muscle spasm #14 04/07/24 tabs ibuprofen 600 mg tablet 600 mg PO Q6H PRN fever or pain 04/07/24 #30 tabs ibuprofen 600 mg tablet 600 mg PO Q6H PRN pain #30 tabs 04/07/24 cyclobenzaprine 5 mg tablet 5 mg PO TID PRN muscle spasm #30 04/11/24 tabs naproxen 500 mg tablet 500 mg PO BID PRN pain #30 tabs 04/11/24 ibuprofen 600 mg tablet 600 mg PO Q8H PRN pain #20 tabs 11/03/24 acetaminophen 500 mg capsule 500 mg PO Q6H PRN pain #30 caps 12/03/24 acetaminophen 500 mg capsule 500 mg PO Q6H PRN pain #30 caps 12/15/24 cyclobenzaprine 5 mg tablet 5 mg PO TID PRN muscle spasm #15 12/20/24 tabs lidocaine 5 % topical patch 2 patch topical QDAY PRN pain #30 12/20/24 (Lidoderm) ea naproxen 500 mg tablet 500 mg PO BID PRN pain #14 tabs 04/04/25 Allergies Allergy/AdvReac Type Severity Reaction Status Date / Time No Known Allergies Allergy Verified 04/19/25 14:31 Course Vital Signs Vital signs: Vital Signs Temperature 98.5 F 04/19/25 15:38 Pulse Rate 73 04/19/25 15:38 Respiratory Rate 18 04/19/25 15:38 Blood Pressure 132/89 H 04/19/25 15:38 Pulse Oximetry (%) 98 04/19/25 15:38 Oxygen Delivery Method Room Air 04/19/25 15:38 Discharge Plan Plan Patient Disposition: HOME (Self Care) Patient condition on transfer: Stable Prescriptions/Referrals Prescriptions/Med Rec: No Action naproxen 500 mg tablet 500 mg PO BID PRN (Reason: pain) Qty: 30 0RF cyclobenzaprine 5 mg tablet 5 mg PO TID PRN (Reason: muscle spasm) Qty: 30 0RF naproxen 500 mg tablet 500 mg PO BID PRN (Reason: pain) Qty: 30 0RF baclofen 10 mg tablet 10 mg PO BID PRN (Reason: muscle spasm) Qty: 30 0RF ibuprofen 800 mg tablet 800 mg PO TID PRN (Reason: pain) Qty: 30 0RF ibuprofen 800 mg tablet 800 mg PO TID PRN (Reason: pain) Qty: 30 0RF ibuprofen 600 mg tablet 600 mg PO Q6H PRN (Reason: pain) Qty: 30 0RF ibuprofen 600 mg tablet 600 mg PO Q8H PRN (Reason: pain) Qty: 20 0RF acetaminophen 500 mg capsule 500 mg PO Q6H PRN (Reason: pain) Qty: 30 0RF lidocaine [Lidoderm] 5 % adhesive patch,medicated 2 patch topical QDAY PRN (Reason: pain) Qty: 30 0RF Rx Instructions: leave on most painful area for up to 12 hrs cyclobenzaprine 5 mg tablet 5 mg PO TID PRN (Reason: muscle spasm) Qty: 15 0RF naproxen 500 mg tablet 500 mg PO BID PRN (Reason: pain) Qty: 14 0RF sulfamethoxazole-trimethoprim [Bactrim DS] 800-160 mg tablet 1 tab PO BID Qty: 14 0RF naproxen 500 mg tablet 500 mg PO BID PRN (Reason: pain) Qty: 30 0RF tamsulosin [Flomax] 0.4 mg capsule 0.4 mg PO QDAY Qty: 30 0RF ibuprofen 600 mg tablet 600 mg PO Q6H PRN (Reason: pain) Qty: 30 0RF methocarbamol 500 mg tablet 1,000 mg PO Q8H PRN (Reason: pain) Qty: 30 0RF naproxen [Naprosyn] 500 mg tablet 500 mg PO BID Qty: 14 0RF ibuprofen 600 mg tablet 600 mg PO Q6H PRN (Reason: fever or pain) Qty: 30 0RF cyclobenzaprine 5 mg tablet 5 mg PO TID PRN (Reason: muscle spasm) Qty: 14 0RF naproxen 500 mg tablet 500 mg PO BID PRN (Reason: pain) Qty: 30 0RF cyclobenzaprine 5 mg tablet 5 mg PO TID PRN (Reason: muscle spasm) Qty: 30 0RF acetaminophen 500 mg capsule 500 mg PO Q6H PRN (Reason: pain) Qty: 30 0RF Referrals: Lavell (PCP),MD Cody [Primary Care Provider] - In 1 week Problem List Clinical Impression: Chronic leg pain Patient/Caregiver Discharge Instructions Discharge Activity: activity as tolerated Education Materials: ED Chronic Pain Additional Instructions: Follow up with primary provider in 1-2 days. Come back to ED if symptoms change or worsen Print Language: Portuguese Stand Alone Forms: Tami Award Info., Patient Portal Info Letter PA/HOME AND SCHOOL VISITOR Supervising Physician PA/HOME AND SCHOOL VISITOR Supervising Physician: [place]
[2025-04-19] MEDS: IBUPROFEN TAB 400 MG TABLET 800 MG PO (16:28)
== END 2025-04-19 19:50 | disposition home or self-care (01) ==
PROVIDERS: Emergency Provider Emergency Medicine; PCP Family Medicine
DX: G89.29 Other chronic pain (principal); M79.604 Pain in right leg; M79.605 Pain in left leg
CPT/HCPCS: 99282; A9270

== ENCOUNTER 2025-04-20 08:05 | Emergency (ER) | payer MEDICAID, SELFPAY ==
[2025-04-20 08:05] VITALS: BMI 26.6
[2025-04-20 08:20] VITALS: BP 102/67; PULSE 62; RESP 16; TEMP 36.7; O2SAT 98
--- NOTE | 2025-04-20 08:30 | PD.EDLOWEX ---
Lower Extremity Injury RME/HPI General Chief Complaint: Extremity Injury, Lower Stated Complaint: CHRONIC BILATERAL LEG Time Seen by Provider: 04/20/25 08:11 Arrival date/time: 04/20/25 08:05 This is a 44-year-old male that comes in with complaints of chronic leg pain. Patient is very well-known in the emergency room IV comes almost every day and sometimes multiple times a day. Patient was brought in by ambulance today. Patient is complaining of bilateral leg pain. Patient denies any new trauma. Patient denies any other symptoms. Related Data Previous Rx's ?Medication ?Instructions ?Recorded sulfamethoxazole 800 1 tab PO BID #14 tabs 03/09/23 mg-trimethoprim 160 mg tablet (Bactrim DS) cyclobenzaprine 5 mg tablet 5 mg PO TID PRN muscle spasm #30 07/23/23 tabs naproxen 500 mg tablet 500 mg PO BID PRN pain #30 tabs 07/23/23 naproxen 500 mg tablet 500 mg PO BID PRN pain #30 tabs 08/08/23 tamsulosin 0.4 mg capsule (Flomax) 0.4 mg PO QDAY #30 caps 08/08/23 baclofen 10 mg tablet 10 mg PO BID PRN muscle spasm #30 08/14/23 tabs naproxen 500 mg tablet 500 mg PO BID PRN pain #30 tabs 08/14/23 ibuprofen 800 mg tablet 800 mg PO TID PRN pain #30 tabs 08/28/23 ibuprofen 600 mg tablet 600 mg PO Q6H PRN pain #30 tabs 01/27/24 methocarbamol 500 mg tablet 1,000 mg (2 x 500 mg) PO Q8H PRN 01/27/24 pain #30 tabs naproxen 500 mg tablet (Naprosyn) 500 mg PO BID #14 tabs 03/15/24 ibuprofen 800 mg tablet 800 mg PO TID PRN pain #30 tabs 04/02/24 cyclobenzaprine 5 mg tablet 5 mg PO TID PRN muscle spasm #14 04/07/24 tabs ibuprofen 600 mg tablet 600 mg PO Q6H PRN fever or pain 04/07/24 #30 tabs ibuprofen 600 mg tablet 600 mg PO Q6H PRN pain #30 tabs 04/07/24 cyclobenzaprine 5 mg tablet 5 mg PO TID PRN muscle spasm #30 04/11/24 tabs naproxen 500 mg tablet 500 mg PO BID PRN pain #30 tabs 04/11/24 ibuprofen 600 mg tablet 600 mg PO Q8H PRN pain #20 tabs 11/03/24 acetaminophen 500 mg capsule 500 mg PO Q6H PRN pain #30 caps 12/03/24 acetaminophen 500 mg capsule 500 mg PO Q6H PRN pain #30 caps 12/15/24 cyclobenzaprine 5 mg tablet 5 mg PO TID PRN muscle spasm #15 12/20/24 tabs lidocaine 5 % topical patch 2 patch topical QDAY PRN pain #30 12/20/24 (Lidoderm) ea naproxen 500 mg tablet 500 mg PO BID PRN pain #14 tabs 04/04/25 Allergies Allergy/AdvReac Type Severity Reaction Status Date / Time No Known Allergies Allergy Verified 04/20/25 08:09 Review of Systems Review of Systems Systems Reviewed: All systems reviewed, normal except as documented Past Medical History Past Medical History NEUROLOGIC: Positive Cerebrovascular Accident; Negative Neurological Disorders CARDIAC: Positive Myocardial Infarction and Hypercholesterolemia; Negative Cardiac Disorders or Congestive Heart Failure RESPIRATORY: Negative Chronic Obstructive Pulmonary Disease (COPD) GASTROINTESTINAL: Negative Gastrointestinal Disorders GENITOURINARY: Negative Genitourinary Disorders or Renal Disease MUSCULOSKELETAL: Negative Musculoskeletal Disorders ENDOCRINE: Negative Endocrine Disorders, Diabetes Mellitus Type 1 or Diabetes Mellitus Type 2 HEMATOLOGIC: Negative Blood Disorders OTHER HISTORY: Negative Autoimmune Disease or Clostridium Difficile Social History SMOKING STATUS: Never smoker SUBSTANCE USE: methamphetamine ED Exam Narrative Physical exam: VITAL SIGNS: Reviewed. GENERAL APPEARANCE: Alert and interactive, follows commands, no acute distress HEAD AND FACE: Non-traumatic. ENT: PERRL, pink conjunctivitis, eyelid no trauma, Mucous membrane moist. NECK: Supple, nontender, no nuchal rigidity. CHEST: No tenderness, no crepitus, no paradoxical movement, no retractions. LUNGS: breathing even and unlabored HEART: Regular rate, cap refill less than 2 seconds ABDOMEN: Soft, nondistended, no pain to palpation NEUROLOGICAL: Gross motor function intact sensory function intact, Appropriate for age. MUSCULOSKELETAL: low back nontender, full range of motion. EXTREMITIES: No redness no swelling no skin breakdown on bilateral foot and leg. Distal neurovascular status intact bilateral foot SKIN: Color pink, dry, no rash, no lacerations, no abrasions, no contusions. Course Orders Category Date Time Status Acetaminophen Tab [Tylenol ES Tab] Med 04/20/25 08:30 Discontinued 1,000 mg PO X1 ONE Ibuprofen Tab [Motrin Tab] Med 04/20/25 08:30 Discontinued 800 mg PO X1 ONE Vital Signs Vital signs: Vital Signs Temperature 98.1 F 04/20/25 08:20 Pulse Rate 62 04/20/25 08:20 Respiratory Rate 16 04/20/25 08:20 Blood Pressure 102/67 04/20/25 08:20 Pulse Oximetry (%) 98 04/20/25 08:20 Oxygen Delivery Method Room Air 04/20/25 08:20 Extremity Injury, Lower Medications / Prescriptions Medication administrations:: Medication Administration History Discontinued Medications Acetaminophen (Acetaminophen 500 Mg Tablet) 1,000 mg PO X1 ONE Stop: 04/20/25 08:31 Ibuprofen (Ibuprofen Tab 400 Mg Tablet) 800 mg PO X1 ONE Stop: 04/20/25 08:31 Discharge Plan Plan Patient Disposition: HOME (Self Care) Patient condition on transfer: Stable Prescriptions/Referrals Prescriptions/Med Rec: No Action naproxen 500 mg tablet 500 mg PO BID PRN (Reason: pain) Qty: 30 0RF cyclobenzaprine 5 mg tablet 5 mg PO TID PRN (Reason: muscle spasm) Qty: 30 0RF naproxen 500 mg tablet 500 mg PO BID PRN (Reason: pain) Qty: 30 0RF baclofen 10 mg tablet 10 mg PO BID PRN (Reason: muscle spasm) Qty: 30 0RF ibuprofen 800 mg tablet 800 mg PO TID PRN (Reason: pain) Qty: 30 0RF ibuprofen 800 mg tablet 800 mg PO TID PRN (Reason: pain) Qty: 30 0RF ibuprofen 600 mg tablet 600 mg PO Q6H PRN (Reason: pain) Qty: 30 0RF ibuprofen 600 mg tablet 600 mg PO Q8H PRN (Reason: pain) Qty: 20 0RF acetaminophen 500 mg capsule 500 mg PO Q6H PRN (Reason: pain) Qty: 30 0RF lidocaine [Lidoderm] 5 % adhesive patch,medicated 2 patch topical QDAY PRN (Reason: pain) Qty: 30 0RF Rx Instructions: leave on most painful area for up to 12 hrs cyclobenzaprine 5 mg tablet 5 mg PO TID PRN (Reason: muscle spasm) Qty: 15 0RF naproxen 500 mg tablet 500 mg PO BID PRN (Reason: pain) Qty: 14 0RF sulfamethoxazole-trimethoprim [Bactrim DS] 800-160 mg tablet 1 tab PO BID Qty: 14 0RF naproxen 500 mg tablet 500 mg PO BID PRN (Reason: pain) Qty: 30 0RF tamsulosin [Flomax] 0.4 mg capsule 0.4 mg PO QDAY Qty: 30 0RF ibuprofen 600 mg tablet 600 mg PO Q6H PRN (Reason: pain) Qty: 30 0RF methocarbamol 500 mg tablet 1,000 mg PO Q8H PRN (Reason: pain) Qty: 30 0RF naproxen [Naprosyn] 500 mg tablet 500 mg PO BID Qty: 14 0RF ibuprofen 600 mg tablet 600 mg PO Q6H PRN (Reason: fever or pain) Qty: 30 0RF cyclobenzaprine 5 mg tablet 5 mg PO TID PRN (Reason: muscle spasm) Qty: 14 0RF naproxen 500 mg tablet 500 mg PO BID PRN (Reason: pain) Qty: 30 0RF cyclobenzaprine 5 mg tablet 5 mg PO TID PRN (Reason: muscle spasm) Qty: 30 0RF acetaminophen 500 mg capsule 500 mg PO Q6H PRN (Reason: pain) Qty: 30 0RF Problem List Clinical Impression: Chronic leg pain Patient/Caregiver Discharge Instructions Discharge Activity: activity as tolerated Education Materials: ED Chronic Pain, ED RICE Additional Instructions: Follow up with primary provider in 1-2 days. Come back to ED if symptoms change or worsen Print Language: Latvian Stand Alone Forms: Tami Award Info., Patient Portal Info Letter PA/POWDERED SUGAR PULVERIZER OPERATOR Supervising Physician PA/POWDERED SUGAR PULVERIZER OPERATOR Supervising Physician: evan
[2025-04-20] MEDS: ACETAMINOPHEN 500 MG TABLET 1000 MG PO (08:35)
[2025-04-20] MEDS: IBUPROFEN TAB 400 MG TABLET 800 MG PO (08:35)
== END 2025-04-20 08:48 | disposition home or self-care (01) ==
LOC: SERX 08:39
PROVIDERS: Emergency Provider Emergency Medicine; PCP Family Medicine
DX: M79.605 Pain in left leg (principal); M79.604 Pain in right leg; G89.29 Other chronic pain
CPT/HCPCS: 99282; A9270

== ENCOUNTER 2025-04-20 10:41 | Emergency (ER) | payer MEDICAID, SELFPAY ==
[2025-04-20 11:14] VITALS: BP 106/73; PULSE 65; RESP 16; TEMP 36.9; O2SAT 97; BMI 23.5
--- NOTE | 2025-04-20 11:27 | EDNOTE_ITS ---
Lower Extremity Injury RME/HPI General Chief Complaint: Extremity Injury, Lower Stated Complaint: BILATERAL LEG PAIN Time Seen by Provider: 04/20/25 10:54 Arrival date/time: 04/20/25 10:41 This is a 44-year-old male that comes in with complaints of chronic leg pain. Patient is very well-known in the emergency room and comes almost every day and sometimes multiple times a day. This is patient's second visit today. Patient was brought in by ambulance today again. Patient is complaining of bilateral leg pain. Patient denies any new trauma. Patient denies any other symptoms. Related Data Previous Rx's ?Medication ?Instructions ?Recorded sulfamethoxazole 800 1 tab PO BID #14 tabs mg-trimethoprim 160 mg tablet (Bactrim DS) cyclobenzaprine 5 mg tablet 5 mg PO TID PRN muscle spa sm #30 07/23/23 tabs naproxen 500 mg tablet 500 mg PO BID PRN pain #30 t abs 07/23/23 naproxen 500 mg tablet 500 mg PO BID PRN pain #30 t abs 08/08/23 tamsulosin 0.4 mg capsule (Flomax) 0.4 mg PO QDAY #30 caps 08/08/23 baclofen 10 mg tablet 10 mg PO BID PRN muscle spas m #30 08/14/23 tabs naproxen 500 mg tablet 500 mg PO BID PRN pain #30 t abs 08/14/23 ibuprofen 800 mg tablet 800 mg PO TID PRN pain #30 t abs 08/28/23 ibuprofen 600 mg tablet 600 mg PO Q6H PRN pain #30 t abs 01/27/24 methocarbamol 500 mg tablet 1,000 mg (2 x 500 mg) PO Q 8H PRN 01/27/24 pain #30 tabs naproxen 500 mg tablet (Naprosyn) 500 mg PO BID #14 ta bs 03/15/24 ibuprofen 800 mg tablet 800 mg PO TID PRN pain #30 t abs 04/02/24 cyclobenzaprine 5 mg tablet 5 mg PO TID PRN muscle spa sm #14 04/07/24 tabs ibuprofen 600 mg tablet 600 mg PO Q6H PRN fever or p ain 04/07/24 #30 tabs ibuprofen 600 mg tablet 600 mg PO Q6H PRN pain #30 t abs 04/07/24 cyclobenzaprine 5 mg tablet 5 mg PO TID PRN muscle spa sm #30 04/11/24 tabs naproxen 500 mg tablet 500 mg PO BID PRN pain #30 t abs 04/11/24 ibuprofen 600 mg tablet 600 mg PO Q8H PRN pain #20 t abs 11/03/24 acetaminophen 500 mg capsule 500 mg PO Q6H PRN pain #3 0 caps 12/03/24 acetaminophen 500 mg capsule 500 mg PO Q6H PRN pain #3 0 caps 12/15/24 cyclobenzaprine 5 mg tablet 5 mg PO TID PRN muscle spa sm #15 12/20/24 tabs lidocaine 5 % topical patch 2 patch topical QDAY PRN p ain #30 12/20/24 (Lidoderm) ea naproxen 500 mg tablet 500 mg PO BID PRN pain #14 t abs 04/04/25 Allergies Allergy/AdvReac Type Severity Reaction Status Date / Time No Known Allergies Allergy Verified 04/20/25 10:50 Course Vital Signs Vital signs: Vital Signs Temperature 98.4 F 04/20/25 11:14 Pulse Rate 65 04/20/25 11:14 Respiratory Rate 16 04/20/25 11:14 Blood Pressure 106/73 04/20/25 11:14 Pulse Oximetry (%) 97 04/20/25 11:14 Discharge Plan Plan Patient Disposition: HOME (Self Care) Patient condition on transfer: Stable Prescriptions/Referrals Prescriptions/Med Rec: No Action naproxen 500 mg tablet 500 mg PO BID PRN (Reason: pain) Qty: 30 0RF cyclobenzaprine 5 mg tablet 5 mg PO TID PRN (Reason: muscle spasm) Qty: 30 0RF naproxen 500 mg tablet 500 mg PO BID PRN (Reason: pain) Qty: 30 0RF baclofen 10 mg tablet 10 mg PO BID PRN (Reason: muscle spasm) Qty: 30 0RF ibuprofen 800 mg tablet 800 mg PO TID PRN (Reason: pain) Qty: 30 0RF ibuprofen 800 mg tablet 800 mg PO TID PRN (Reason: pain) Qty: 30 0RF ibuprofen 600 mg tablet 600 mg PO Q6H PRN (Reason: pain) Qty: 30 0RF ibuprofen 600 mg tablet 600 mg PO Q8H PRN (Reason: pain) Qty: 20 0RF acetaminophen 500 mg capsule 500 mg PO Q6H PRN (Reason: pain) Qty: 30 0RF lidocaine [Lidoderm] 5 % adhesive patch,medicated 2 patch topical QDAY PRN (Reason: pain) Qty: 30 0RF Rx Instructions: leave on most painful area for up to 12 hrs cyclobenzaprine 5 mg tablet 5 mg PO TID PRN (Reason: muscle spasm) Qty: 15 0RF naproxen 500 mg tablet 500 mg PO BID PRN (Reason: pain) Qty: 14 0RF sulfamethoxazole-trimethoprim [Bactrim DS] 800-160 mg tablet 1 tab PO BID Qty: 14 0RF naproxen 500 mg tablet 500 mg PO BID PRN (Reason: pain) Qty: 30 0RF tamsulosin [Flomax] 0.4 mg capsule 0.4 mg PO QDAY Qty: 30 0RF ibuprofen 600 mg tablet 600 mg PO Q6H PRN (Reason: pain) Qty: 30 0RF methocarbamol 500 mg tablet 1,000 mg PO Q8H PRN (Reason: pain) Qty: 30 0RF naproxen [Naprosyn] 500 mg tablet 500 mg PO BID Qty: 14 0RF ibuprofen 600 mg tablet 600 mg PO Q6H PRN (Reason: fever or pain) Qty: 30 0RF cyclobenzaprine 5 mg tablet 5 mg PO TID PRN (Reason: muscle spasm) Qty: 14 0RF naproxen 500 mg tablet 500 mg PO BID PRN (Reason: pain) Qty: 30 0RF cyclobenzaprine 5 mg tablet 5 mg PO TID PRN (Reason: muscle spasm) Qty: 30 0RF acetaminophen 500 mg capsule 500 mg PO Q6H PRN (Reason: pain) Qty: 30 0RF Referrals: Lavell (PCP),MD Cody [Primary Care Provider] - In 1 week Problem List Clinical Impression: Chronic leg pain Patient/Caregiver Discharge Instructions Discharge Activity: activity as tolerated Education Materials: Managing Chronic Pain Additional Instructions: Follow up with primary provider in 1-2 days. Come back to ED if symptoms change or worsen Print Language: Vietnamese Stand Alone Forms: Tami Award Info., Patient Portal Info Letter PA/MACHINING ENGINEER Supervising Physician PA/MACHINING ENGINEER Supervising Physician: evan
== END 2025-04-20 11:39 | disposition home or self-care (01) ==
PROVIDERS: Emergency Provider Emergency Medicine; PCP Family Medicine
DX: M79.604 Pain in right leg (principal); M79.605 Pain in left leg; G89.29 Other chronic pain
CPT/HCPCS: 99281

== ENCOUNTER 2025-04-20 15:19 | Emergency (ER) | payer MEDICAID, SELFPAY ==
[2025-04-20 15:25] VITALS: PULSE 64; RESP 18; O2SAT 98
[2025-04-20 15:59] VITALS: BP 128/90; PULSE 61; RESP 18; TEMP 36.7; O2SAT 100; BMI 23.5
--- NOTE | 2025-04-20 16:03 | EDNOTE_ITS ---
Lower Extremity Injury RME/HPI General Chief Complaint: Extremity Injury, Lower Stated Complaint: LEG PAIN Time Seen by Provider: 04/20/25 15:43 Arrival date/time: 04/20/25 15:19 This is a 44-year-old male that comes in with complaints of chronic leg pain. Patient is very well-known in the emergency room and comes almost every day and sometimes multiple times a day. This is patient's third visit today. Patient was brought in by ambulance today again. Patient is complaining of bilateral leg pain. Patient denies any new trauma. Patient denies any other symptoms. Related Data Previous Rx's ?Medication ?Instructions ?Recorded sulfamethoxazole 800 1 tab PO BID #14 tabs mg-trimethoprim 160 mg tablet (Bactrim DS) cyclobenzaprine 5 mg tablet 5 mg PO TID PRN muscle spa sm #30 07/23/23 tabs naproxen 500 mg tablet 500 mg PO BID PRN pain #30 t abs 07/23/23 naproxen 500 mg tablet 500 mg PO BID PRN pain #30 t abs 08/08/23 tamsulosin 0.4 mg capsule (Flomax) 0.4 mg PO QDAY #30 caps 08/08/23 baclofen 10 mg tablet 10 mg PO BID PRN muscle spas m #30 08/14/23 tabs naproxen 500 mg tablet 500 mg PO BID PRN pain #30 t abs 08/14/23 ibuprofen 800 mg tablet 800 mg PO TID PRN pain #30 t abs 08/28/23 ibuprofen 600 mg tablet 600 mg PO Q6H PRN pain #30 t abs 01/27/24 methocarbamol 500 mg tablet 1,000 mg (2 x 500 mg) PO Q 8H PRN 01/27/24 pain #30 tabs naproxen 500 mg tablet (Naprosyn) 500 mg PO BID #14 ta bs 03/15/24 ibuprofen 800 mg tablet 800 mg PO TID PRN pain #30 t abs 04/02/24 cyclobenzaprine 5 mg tablet 5 mg PO TID PRN muscle spa sm #14 04/07/24 tabs ibuprofen 600 mg tablet 600 mg PO Q6H PRN fever or p ain 04/07/24 #30 tabs ibuprofen 600 mg tablet 600 mg PO Q6H PRN pain #30 t abs 04/07/24 cyclobenzaprine 5 mg tablet 5 mg PO TID PRN muscle spa sm #30 04/11/24 tabs naproxen 500 mg tablet 500 mg PO BID PRN pain #30 t abs 04/11/24 ibuprofen 600 mg tablet 600 mg PO Q8H PRN pain #20 t abs 11/03/24 acetaminophen 500 mg capsule 500 mg PO Q6H PRN pain #3 0 caps 12/03/24 acetaminophen 500 mg capsule 500 mg PO Q6H PRN pain #3 0 caps 12/15/24 cyclobenzaprine 5 mg tablet 5 mg PO TID PRN muscle spa sm #15 12/20/24 tabs lidocaine 5 % topical patch 2 patch topical QDAY PRN p ain #30 12/20/24 (Lidoderm) ea naproxen 500 mg tablet 500 mg PO BID PRN pain #14 t abs 04/04/25 Allergies Allergy/AdvReac Type Severity Reaction Status Date / Time No Known Allergies Allergy Verified 04/20/25 10:50 Course Orders Category Date Time Status Acetaminophen Tab [Tylenol ES Tab] Med 04/20/25 16:02 Once 1,000 mg PO X1 ONE Vital Signs Vital signs: Vital Signs Temperature 98.0 F 04/20/25 15:59 Pulse Rate 61 04/20/25 15:59 Respiratory Rate 18 04/20/25 15:59 Blood Pressure 128/90 H 04/20/25 15:59 Pulse Oximetry (%) 100 04/20/25 15:59 Oxygen Delivery Method Room Air 04/20/25 15:59 Discharge Plan Plan Patient Disposition: HOME (Self Care) Patient condition on transfer: Stable Prescriptions/Referrals Prescriptions/Med Rec: No Action naproxen 500 mg tablet 500 mg PO BID PRN (Reason: pain) Qty: 30 0RF cyclobenzaprine 5 mg tablet 5 mg PO TID PRN (Reason: muscle spasm) Qty: 30 0RF naproxen 500 mg tablet 500 mg PO BID PRN (Reason: pain) Qty: 30 0RF baclofen 10 mg tablet 10 mg PO BID PRN (Reason: muscle spasm) Qty: 30 0RF ibuprofen 800 mg tablet 800 mg PO TID PRN (Reason: pain) Qty: 30 0RF ibuprofen 800 mg tablet 800 mg PO TID PRN (Reason: pain) Qty: 30 0RF ibuprofen 600 mg tablet 600 mg PO Q6H PRN (Reason: pain) Qty: 30 0RF ibuprofen 600 mg tablet 600 mg PO Q8H PRN (Reason: pain) Qty: 20 0RF acetaminophen 500 mg capsule 500 mg PO Q6H PRN (Reason: pain) Qty: 30 0RF lidocaine [Lidoderm] 5 % adhesive patch,medicated 2 patch topical QDAY PRN (Reason: pain) Qty: 30 0RF Rx Instructions: leave on most painful area for up to 12 hrs cyclobenzaprine 5 mg tablet 5 mg PO TID PRN (Reason: muscle spasm) Qty: 15 0RF naproxen 500 mg tablet 500 mg PO BID PRN (Reason: pain) Qty: 14 0RF sulfamethoxazole-trimethoprim [Bactrim DS] 800-160 mg tablet 1 tab PO BID Qty: 14 0RF naproxen 500 mg tablet 500 mg PO BID PRN (Reason: pain) Qty: 30 0RF tamsulosin [Flomax] 0.4 mg capsule 0.4 mg PO QDAY Qty: 30 0RF ibuprofen 600 mg tablet 600 mg PO Q6H PRN (Reason: pain) Qty: 30 0RF methocarbamol 500 mg tablet 1,000 mg PO Q8H PRN (Reason: pain) Qty: 30 0RF naproxen [Naprosyn] 500 mg tablet 500 mg PO BID Qty: 14 0RF ibuprofen 600 mg tablet 600 mg PO Q6H PRN (Reason: fever or pain) Qty: 30 0RF cyclobenzaprine 5 mg tablet 5 mg PO TID PRN (Reason: muscle spasm) Qty: 14 0RF naproxen 500 mg tablet 500 mg PO BID PRN (Reason: pain) Qty: 30 0RF cyclobenzaprine 5 mg tablet 5 mg PO TID PRN (Reason: muscle spasm) Qty: 30 0RF acetaminophen 500 mg capsule 500 mg PO Q6H PRN (Reason: pain) Qty: 30 0RF Problem List Clinical Impression: Chronic leg pain Patient/Caregiver Discharge Instructions Discharge Activity: activity as tolerated Education Materials: ED Pain Management: Chronic, ED RICE Additional Instructions: Follow up with primary provider in 1-2 days. Come back to ED if symptoms change or worsen Print Language: [place] Stand Alone Forms: Tami Award Info., Patient Portal Info Letter PA/GROUND CREWMAN Supervising Physician PA/GROUND CREWMAN Supervising Physician: evan
[2025-04-20] MEDS: ACETAMINOPHEN 500 MG TABLET 1000 MG PO (16:20)
== END 2025-04-20 16:24 | disposition home or self-care (01) ==
LOC: SERX 16:09
PROVIDERS: Emergency Provider Emergency Medicine; PCP Family Medicine
DX: M79.605 Pain in left leg (principal); M79.604 Pain in right leg; G89.29 Other chronic pain
CPT/HCPCS: 99282; A9270

== ENCOUNTER 2025-04-20 18:39 | Emergency (ER) | payer MEDICAID, SELFPAY ==
[2025-04-20 18:48] VITALS: BP 137/93; PULSE 78; RESP 18; TEMP 37.1; O2SAT 99; BMI 23.5
--- NOTE | 2025-04-20 18:57 | PD.EDLOWEX ---
Lower Extremity Injury RME/HPI General Chief Complaint: Extremity Injury, Lower Stated Complaint: LOWER LEG PAIN SEEN HER 3 TIMES TODAY Time Seen by Provider: 04/20/25 18:47 Source: patient Arrival date/time: 04/20/25 18:39 This is a 44-year-old male that comes in with complaints of chronic leg pain. Patient is very well-known in the emergency room and comes almost every day and sometimes multiple times a day. This is patient's fourth visit today. Patient was brought in by ambulance today again. Patient is complaining of bilateral leg pain. Patient denies any new trauma. Patient denies any other symptoms. Patient was given Toradol this morning and was discharged with Naprosyn and muscle relaxant Mode of arrival: ambulatory Limitations: no limitations and language barrier Related Data Previous Rx's ?Medication ?Instructions ?Recorded sulfamethoxazole 800 1 tab PO BID #14 tabs 03/09/23 mg-trimethoprim 160 mg tablet (Bactrim DS) cyclobenzaprine 5 mg tablet 5 mg PO TID PRN muscle spasm #30 07/23/23 tabs naproxen 500 mg tablet 500 mg PO BID PRN pain #30 tabs 07/23/23 naproxen 500 mg tablet 500 mg PO BID PRN pain #30 tabs 08/08/23 tamsulosin 0.4 mg capsule (Flomax) 0.4 mg PO QDAY #30 caps 08/08/23 baclofen 10 mg tablet 10 mg PO BID PRN muscle spasm #30 08/14/23 tabs naproxen 500 mg tablet 500 mg PO BID PRN pain #30 tabs 08/14/23 ibuprofen 800 mg tablet 800 mg PO TID PRN pain #30 tabs 08/28/23 ibuprofen 600 mg tablet 600 mg PO Q6H PRN pain #30 tabs 01/27/24 methocarbamol 500 mg tablet 1,000 mg (2 x 500 mg) PO Q8H PRN 01/27/24 pain #30 tabs naproxen 500 mg tablet (Naprosyn) 500 mg PO BID #14 tabs 03/15/24 ibuprofen 800 mg tablet 800 mg PO TID PRN pain #30 tabs 04/02/24 cyclobenzaprine 5 mg tablet 5 mg PO TID PRN muscle spasm #14 04/07/24 tabs ibuprofen 600 mg tablet 600 mg PO Q6H PRN fever or pain 04/07/24 #30 tabs ibuprofen 600 mg tablet 600 mg PO Q6H PRN pain #30 tabs 04/07/24 cyclobenzaprine 5 mg tablet 5 mg PO TID PRN muscle spasm #30 04/11/24 tabs naproxen 500 mg tablet 500 mg PO BID PRN pain #30 tabs 04/11/24 ibuprofen 600 mg tablet 600 mg PO Q8H PRN pain #20 tabs 11/03/24 acetaminophen 500 mg capsule 500 mg PO Q6H PRN pain #30 caps 12/03/24 acetaminophen 500 mg capsule 500 mg PO Q6H PRN pain #30 caps 12/15/24 cyclobenzaprine 5 mg tablet 5 mg PO TID PRN muscle spasm #15 12/20/24 tabs lidocaine 5 % topical patch 2 patch topical QDAY PRN pain #30 12/20/24 (Lidoderm) ea naproxen 500 mg tablet 500 mg PO BID PRN pain #14 tabs 04/04/25 Allergies Allergy/AdvReac Type Severity Reaction Status Date / Time No Known Allergies Allergy Verified 04/20/25 18:44 Review of Systems Review of Systems Systems Reviewed: All systems reviewed, normal except as documented Constitutional Constitutional: Reports system reviewed and no additional complaints, except as documented and Reports as per HPI ENT Ears, Nose, Mouth, and Throat: Denies neck pain Cardiovascular Cardiovascular: Reports system reviewed and no additional complaints, except as documented and Reports as per HPI Respiratory Respiratory: Reports system reviewed and no additional complaints, except as documented and Reports as per HPI Gastrointestinal Gastrointestinal: Reports system reviewed and no additional complaints, except as documented Genitourinary Genitourinary: Reports system reviewed and no additional complaints, except as documented and Reports as per HPI Musculoskeletal Musculoskeletal: Reports system reviewed and no additional complaints, except as documented, Reports as per HPI, Denies abnormal gait, Denies arthralgias, Denies atrophy, Denies back pain, Denies deformity, Denies joint swelling, Denies limited range of motion, Denies loss of height, Denies muscle cramps, Denies muscle weakness, Denies myalgias, Denies neck pain, Denies numbness, Denies radiating pain into limb, Denies stiffness, Denies tingling and Reports other (leg pain) Integumentary/Breasts Skin/Breast: Reports system reviewed and no additional complaints, except as documented Neurologic Neurologic: Reports system reviewed and no additional complaints, except as documented, Denies abnormal gait, Denies numbness and Denies tingling Past Medical History Past Medical History NEUROLOGIC: Positive Cerebrovascular Accident; Negative Neurological Disorders CARDIAC: Positive Myocardial Infarction and Hypercholesterolemia; Negative Cardiac Disorders or Congestive Heart Failure RESPIRATORY: Negative Chronic Obstructive Pulmonary Disease (COPD) GASTROINTESTINAL: Negative Gastrointestinal Disorders GENITOURINARY: Negative Genitourinary Disorders or Renal Disease MUSCULOSKELETAL: Negative Musculoskeletal Disorders ENDOCRINE: Negative Endocrine Disorders, Diabetes Mellitus Type 1 or Diabetes Mellitus Type 2 HEMATOLOGIC: Negative Blood Disorders OTHER HISTORY: Negative Autoimmune Disease or Clostridium Difficile Social History SMOKING STATUS: Never smoker SUBSTANCE USE: methamphetamine ED Exam General Limitations: Present no limitations and language barrier General appearance: Present alert and in no apparent distress Head Head exam: Present atraumatic and normocephalic Eye Eye exam: Present normal appearance, PERRL and EOMI ENT ENT exam: Present normal exam, normal oropharynx and mucous membranes moist Neck Neck exam: Present normal inspection, full ROM and trachea midline; Absent tenderness, meningismus or lymphadenopathy Chest Chest inspection: Present normal inspection and symmetric chest wall rise Respiratory Respiratory exam: Present normal lung sounds bilaterally; Absent respiratory distress, wheezes, stridor, accessory muscle use or prolonged expiratory phase Cardiovascular Cardiovascular exam: Present regular rate, normal rhythm and normal heart sounds; Absent bradycardia, tachycardia, irregular rhythm or systolic murmur Abdominal Exam Abdominal exam: Present soft and normal bowel sounds; Absent distention, tenderness, guarding, rebound or rigidity Extremities Exam Extremities exam: Present normal inspection, full ROM and other (No tenderness on both legs no swelling no calf tenderness both lower extremities exam are all normal ROM is intact no lesion no wound neurovascular is intact motor sensory reflex were all normal); Absent tenderness, normal capillary refill, pedal edema, joint swelling or calf tenderness Back Exam Back exam: Present normal inspection and full ROM Neurological Exam Neurological exam: Present alert, oriented X3, CN II-XII intact, normal gait and reflexes normal; Absent motor sensory deficit Psychiatric Psychiatric exam: Present normal affect and normal mood Skin Skin exam: Present warm, dry, intact and normal color Course Quality Measures none Orders Category Date Time Status Acetaminophen Tab [Tylenol Tab] Med 04/20/25 18:54 Discontinued 650 mg PO X1 ONE Vital Signs Vital signs: Vital Signs Temperature 98.8 F 06/01/25 18:48 Pulse Rate 78 04/20/25 18:48 Respiratory Rate 18 04/20/25 18:48 Blood Pressure 137/93 H 04/20/25 18:48 Pulse Oximetry (%) 99 04/20/25 18:48 Oxygen Delivery Method Room Air 04/20/25 18:48 Afebrile not tachycardic not tachypneic BP stable pulse oximetry is 97% in room air normal Extremity Injury, Lower MDM Narrative MDM Narrative:: This is a 44-year-old male that comes in with complaints of chronic leg pain. Patient is very well-known in the emergency room and comes almost every day and sometimes multiple times a day. This is patient's fourth visit today. Patient was brought in by ambulance today again. Patient is complaining of bilateral leg pain. Patient denies any new trauma. Patient denies any other symptoms. Patient was given Toradol this morning and was discharged with Naprosyn and muscle relaxant physical examination patient is awake alert oriented not in distress nontoxic looking neurological exam is normal no focal deficit steady gait motor sensory reflex were all normal patient both lower extremities were all normal no tenderness no swelling no calf tenderness negative [place] sign motor or sensory reflex were normal ROM intact neurovascular in intact patient patient was asking for Toradol and able to give Toradol patient had Toradol few hours ago patient was given Tylenol and he will go to his doctor to see Ortho and pain management doctor for chronic leg pain patient will continue with the Naprosyn and muscle relaxant that was prescribed by the previous provider Patient was discharged with comfortable condition walking with stable gait. Patient verbalized no further complains explained diagnosis and answered patient question. Patient is comfortable with the proposed management plan including the need to follow up with his/her primary care physician and any specialist if applicable Discussed patient for any urgent condition or worsening sx, He/She needed to go to emergency room immediately or call 911. Patient acknowledge the responsibility to follow up as instructed and to monitor her/his symptoms. For any persistence of the symptoms for more than 3-5 days return precaution advised. Discussed the result of the test and was given printed discharge instruction Patient data External records reviewed:: [facility] previous records Clinical information provided by:: patient Social determinants that could affect healthcare access:: none Patient has the following chronic illnesses:: None How is presenting disease/condition affected by chronic disease/condition?: no chronic disease Evaluation data The following diagnostics were reviewed and interpreted by me:: other (specify) (None) Lab and/or radiology exams considered but not ordered:: None Interpretation Summary: None Medications / Prescriptions Medications or Prescriptions considered but not ordered:: Reviewed Medication administrations:: Medication Administration History Discontinued Medications Acetaminophen (Acetaminophen 325 Mg Tablet) 650 mg PO X1 ONE Stop: 04/20/25 18:55 Reviewed Consultations Consultation(s) initiated? (list below): No Diagnosis Extremity Injury, Lower Differential Diagnosis: other (Muscle strain not DVT) Most likely diagnosis given after review of the tests above:: Chronic leg pain Admission Indicated Admission indicated?: not indicated Explain why admission is indicated or not indicated:: Not indicated Admission Request Was there a request for admission?: No Admission Attestation Admission request attestation: Not indicated Disposition Plan Disposition Plan: Discharge Discharge Attestation Discharge Attestation: The patient and all family members were given an opportunity to ask questions and understood the discharge instructions. Discharge instructions specifically effects, indications for sooner follow up or return to the emergency department, and the expected course of current diagnosis. Patient condition: Stable Discharge Plan Plan Patient Disposition: HOME (Self Care) Patient condition on transfer: Stable Prescriptions/Referrals Prescriptions/Med Rec: No Action naproxen 500 mg tablet 500 mg PO BID PRN (Reason: pain) Qty: 30 0RF cyclobenzaprine 5 mg tablet 5 mg PO TID PRN (Reason: muscle spasm) Qty: 30 0RF naproxen 500 mg tablet 500 mg PO BID PRN (Reason: pain) Qty: 30 0RF baclofen 10 mg tablet 10 mg PO BID PRN (Reason: muscle spasm) Qty: 30 0RF ibuprofen 800 mg tablet 800 mg PO TID PRN (Reason: pain) Qty: 30 0RF ibuprofen 800 mg tablet 800 mg PO TID PRN (Reason: pain) Qty: 30 0RF ibuprofen 600 mg tablet 600 mg PO Q6H PRN (Reason: pain) Qty: 30 0RF ibuprofen 600 mg tablet 600 mg PO Q8H PRN (Reason: pain) Qty: 20 0RF acetaminophen 500 mg capsule 500 mg PO Q6H PRN (Reason: pain) Qty: 30 0RF lidocaine [Lidoderm] 5 % adhesive patch,medicated 2 patch topical QDAY PRN (Reason: pain) Qty: 30 0RF Rx Instructions: leave on most painful area for up to 12 hrs cyclobenzaprine 5 mg tablet 5 mg PO TID PRN (Reason: muscle spasm) Qty: 15 0RF naproxen 500 mg tablet 500 mg PO BID PRN (Reason: pain) Qty: 14 0RF sulfamethoxazole-trimethoprim [Bactrim DS] 800-160 mg tablet 1 tab PO BID Qty: 14 0RF naproxen 500 mg tablet 500 mg PO BID PRN (Reason: pain) Qty: 30 0RF tamsulosin [Flomax] 0.4 mg capsule 0.4 mg PO QDAY Qty: 30 0RF ibuprofen 600 mg tablet 600 mg PO Q6H PRN (Reason: pain) Qty: 30 0RF methocarbamol 500 mg tablet 1,000 mg PO Q8H PRN (Reason: pain) Qty: 30 0RF naproxen [Naprosyn] 500 mg tablet 500 mg PO BID Qty: 14 0RF ibuprofen 600 mg tablet 600 mg PO Q6H PRN (Reason: fever or pain) Qty: 30 0RF cyclobenzaprine 5 mg tablet 5 mg PO TID PRN (Reason: muscle spasm) Qty: 14 0RF naproxen 500 mg tablet 500 mg PO BID PRN (Reason: pain) Qty: 30 0RF cyclobenzaprine 5 mg tablet 5 mg PO TID PRN (Reason: muscle spasm) Qty: 30 0RF acetaminophen 500 mg capsule 500 mg PO Q6H PRN (Reason: pain) Qty: 30 0RF Referrals: Cody Monte MD ([place]) [Primary Care Provider] - In 1 week Problem List Clinical Impression: Chronic leg pain Patient/Caregiver Discharge Instructions Education Materials: Chronic Pain Therapies Mind Body, Managing Chronic Pain Additional Instructions: Follow-up with your primary care physician in 2 days for reevaluation and to be referred to orthopedic surgeon for further evaluation and treatment of your chronic leg pain and pain management for pain control continue the medication that was prescribed by the previous provider today Print Language: Yemeni Stand Alone Forms: Tami Award Info., Patient Portal Info Letter PA/CUT AND COVER LINE WORKER Supervising Physician PA/CUT AND COVER LINE WORKER Supervising Physician: dr roblero
[2025-04-20] MEDS: ACETAMINOPHEN 325 MG TABLET 650 MG PO (19:03)
== END 2025-04-20 19:05 | disposition home or self-care (01) ==
PROVIDERS: Emergency Provider Emergency Medicine; PCP Family Medicine
DX: M79.604 Pain in right leg (principal); M79.605 Pain in left leg; G89.29 Other chronic pain
CPT/HCPCS: 99282; A9270

== ENCOUNTER 2025-04-21 08:35 | Emergency (ER) | payer MEDICAID, SELFPAY ==
[2025-04-21 08:40] VITALS: BP 112/76; PULSE 72; RESP 16; TEMP 36.7; O2SAT 95; BMI 26.1
--- NOTE | 2025-04-21 08:47 | EDNOTE_ITS ---
Lower Extremity Injury RME/HPI General Chief Complaint: Extremity Injury, Lower Stated Complaint: BIBA FROM [facility] FOR BILATERAL LEG PAIN Time Seen by Provider: 04/21/25 08:39 Arrival date/time: 04/21/25 08:35 44-year-old homeless male presents to the emergency department today for complaint of bilateral leg pain chronic in nature patient also requesting a sandwich and water. Limitations: no limitations Related Data Previous Rx's ?Medication ?Instructions ?Recorded sulfamethoxazole 800 1 tab PO BID #14 tabs mg-trimethoprim 160 mg tablet (Bactrim DS) cyclobenzaprine 5 mg tablet 5 mg PO TID PRN muscle spa sm #30 07/23/23 tabs naproxen 500 mg tablet 500 mg PO BID PRN pain #30 t abs 07/23/23 naproxen 500 mg tablet 500 mg PO BID PRN pain #30 t abs 08/08/23 tamsulosin 0.4 mg capsule (Flomax) 0.4 mg PO QDAY #30 caps 08/08/23 baclofen 10 mg tablet 10 mg PO BID PRN muscle spas m #30 08/14/23 tabs naproxen 500 mg tablet 500 mg PO BID PRN pain #30 t abs 08/14/23 ibuprofen 800 mg tablet 800 mg PO TID PRN pain #30 t abs 08/28/23 ibuprofen 600 mg tablet 600 mg PO Q6H PRN pain #30 t abs 01/27/24 methocarbamol 500 mg tablet 1,000 mg (2 x 500 mg) PO Q 8H PRN 01/27/24 pain #30 tabs naproxen 500 mg tablet (Naprosyn) 500 mg PO BID #14 ta bs 03/15/24 ibuprofen 800 mg tablet 800 mg PO TID PRN pain #30 t abs 04/02/24 cyclobenzaprine 5 mg tablet 5 mg PO TID PRN muscle spa sm #14 04/07/24 tabs ibuprofen 600 mg tablet 600 mg PO Q6H PRN fever or p ain 04/07/24 #30 tabs ibuprofen 600 mg tablet 600 mg PO Q6H PRN pain #30 t abs 04/07/24 cyclobenzaprine 5 mg tablet 5 mg PO TID PRN muscle spa sm #30 04/11/24 tabs naproxen 500 mg tablet 500 mg PO BID PRN pain #30 t abs 04/11/24 ibuprofen 600 mg tablet 600 mg PO Q8H PRN pain #20 t abs 11/03/24 acetaminophen 500 mg capsule 500 mg PO Q6H PRN pain #3 0 caps 12/03/24 acetaminophen 500 mg capsule 500 mg PO Q6H PRN pain #3 0 caps 12/15/24 cyclobenzaprine 5 mg tablet 5 mg PO TID PRN muscle spa sm #15 12/20/24 tabs lidocaine 5 % topical patch 2 patch topical QDAY PRN p ain #30 12/20/24 (Lidoderm) ea naproxen 500 mg tablet 500 mg PO BID PRN pain #14 t abs 04/04/25 Allergies Allergy/AdvReac Type Severity Reaction Status Date / Time No Known Allergies Allergy Verified 04/21/25 08:37 Review of Systems Review of Systems Systems Reviewed: All systems reviewed, normal except as documented Constitutional Constitutional: Reports system reviewed and no additional complaints, except as documented, Denies fever(s) and Denies headache(s) Eyes Eyes: Reports system reviewed and no additional complaints, except as documented and Denies blurry vision ENT Ears, Nose, Mouth, and Throat: Reports system reviewed and no additional complaints, except as documented, Denies headache(s), Denies nasal congestion and Denies nasal discharge Cardiovascular Cardiovascular: Reports system reviewed and no additional complaints, except as documented, Denies chest pain and Denies dyspnea Respiratory Respiratory: Reports system reviewed and no additional complaints, except as documented, Denies chest congestion, Denies cough and Denies dyspnea Gastrointestinal Gastrointestinal: Reports system reviewed and no additional complaints, except as documented and Denies abdominal pain Musculoskeletal Musculoskeletal: Reports system reviewed and no additional complaints, except as documented and Reports other (Bilateral leg pain) Integumentary/Breasts Skin/Breast: Reports system reviewed and no additional complaints, except as documented and Denies rash Neurologic Neurologic: Reports system reviewed and no additional complaints, except as documented, Reports as per HPI and Denies headache(s) Past Medical History Past Medical History NEUROLOGIC: Positive Cerebrovascular Accident; Negative Neurological Disorders CARDIAC: Positive Myocardial Infarction and Hypercholesterolemia; Negative Cardiac Disorders or Congestive Heart Failure RESPIRATORY: Negative Chronic Obstructive Pulmonary Disease (COPD) GASTROINTESTINAL: Negative Gastrointestinal Disorders GENITOURINARY: Negative Genitourinary Disorders or Renal Disease MUSCULOSKELETAL: Negative Musculoskeletal Disorders ENDOCRINE: Negative Endocrine Disorders, Diabetes Mellitus Type 1 or Diabetes Mellitus Type 2 HEMATOLOGIC: Negative Blood Disorders OTHER HISTORY: Negative Autoimmune Disease or Clostridium Difficile Social History SMOKING STATUS: Unknown if ever smoked SUBSTANCE USE: methamphetamine ED Exam General Limitations: Present no limitations General appearance: Present alert and in no apparent distress Head Head exam: Present atraumatic, normocephalic and normal inspection Eye Eye exam: Present normal appearance, PERRL and EOMI; Absent conjunctival injection ENT ENT exam: Present normal exam, normal oropharynx and mucous membranes moist Neck Neck exam: Present normal inspection, full ROM and trachea midline Chest Chest inspection: Present normal inspection and symmetric chest wall rise Respiratory Respiratory exam: Present normal lung sounds bilaterally Cardiovascular Cardiovascular exam: Present regular rate, normal rhythm and normal heart sounds Abdominal Exam Abdominal exam: Present soft and normal bowel sounds Extremities Exam Extremities exam: Present normal inspection and full ROM Back Exam Back exam: Present normal inspection and full ROM Neurological Exam Neurological exam: Present alert, oriented X3 and CN II-XII intact Psychiatric Psychiatric exam: Present normal affect and normal mood Skin Skin exam: Present warm, dry, intact and normal color Course Quality Measures none Vital Signs Vital signs: Vital Signs Temperature 98.0 F 04/21/25 08:40 Pulse Rate 72 04/21/25 08:40 Respiratory Rate 16 04/21/25 08:40 Blood Pressure 112/76 04/21/25 08:40 Pulse Oximetry (%) 95 04/21/25 08:40 Oxygen Delivery Method Room Air 04/21/25 08:40 O2 saturation 95% room air within normal limits Extremity Injury, Lower MDM Narrative MDM Narrative:: 44-year-old homeless male presents to the emergency department today for complaint of bilateral leg pain chronic in nature patient also requesting a sandwich and water. Patient well-known to me patient does not appear ill or toxic in no acute distress I do not believe lab work and imaging is indicated at this time Patient given sandwich and water Patient discharged home in no distress to follow-up with primary care doctor in the next 24 to 48 hours and for any worsening symptoms to return to the ER immediately Patient data External records reviewed:: [facility] previous records Clinical information provided by:: patient Social determinants that could affect healthcare access:: substance use Patient has the following chronic illnesses:: See history How is presenting disease/condition affected by chronic disease/condition?: caused by Evaluation data The following diagnostics were reviewed and interpreted by me:: other (specify) (N/A) Lab and/or radiology exams considered but not ordered:: Considered not indicated Interpretation Summary: N/A Medications / Prescriptions Medications or Prescriptions considered but not ordered:: Given Medication administrations:: Given Consultations Consultation(s) initiated? (list below): No Diagnosis Extremity Injury, Lower Differential Diagnosis: ankle sprain and strain, ankle fracture and other (Chronic leg pain) Most likely diagnosis given after review of the tests above:: Chronic leg pain, homelessness Admission Indicated Admission indicated?: not indicated Admission Request Was there a request for admission?: No Disposition Plan Disposition Plan: Discharge Discharge Attestation Discharge Attestation: The patient and all family members were given an opportunity to ask questions and understood the discharge instructions. Discharge instructions specifically effects, indications for sooner follow up or return to the emergency department, and the expected course of current diagnosis. Patient condition: Stable Discharge Plan Plan Patient Disposition: HOME (Self Care) Discharge Disposition comment: stable Prescriptions/Referrals Prescriptions/Med Rec: No Action naproxen 500 mg tablet 500 mg PO BID PRN (Reason: pain) Qty: 30 0RF cyclobenzaprine 5 mg tablet 5 mg PO TID PRN (Reason: muscle spasm) Qty: 30 0RF naproxen 500 mg tablet 500 mg PO BID PRN (Reason: pain) Qty: 30 0RF baclofen 10 mg tablet 10 mg PO BID PRN (Reason: muscle spasm) Qty: 30 0RF ibuprofen 800 mg tablet 800 mg PO TID PRN (Reason: pain) Qty: 30 0RF ibuprofen 800 mg tablet 800 mg PO TID PRN (Reason: pain) Qty: 30 0RF ibuprofen 600 mg tablet 600 mg PO Q6H PRN (Reason: pain) Qty: 30 0RF ibuprofen 600 mg tablet 600 mg PO Q8H PRN (Reason: pain) Qty: 20 0RF acetaminophen 500 mg capsule 500 mg PO Q6H PRN (Reason: pain) Qty: 30 0RF lidocaine [Lidoderm] 5 % adhesive patch,medicated 2 patch topical QDAY PRN (Reason: pain) Qty: 30 0RF Rx Instructions: leave on most painful area for up to 12 hrs cyclobenzaprine 5 mg tablet 5 mg PO TID PRN (Reason: muscle spasm) Qty: 15 0RF naproxen 500 mg tablet 500 mg PO BID PRN (Reason: pain) Qty: 14 0RF sulfamethoxazole-trimethoprim [Bactrim DS] 800-160 mg tablet 1 tab PO BID Qty: 14 0RF naproxen 500 mg tablet 500 mg PO BID PRN (Reason: pain) Qty: 30 0RF tamsulosin [Flomax] 0.4 mg capsule 0.4 mg PO QDAY Qty: 30 0RF ibuprofen 600 mg tablet 600 mg PO Q6H PRN (Reason: pain) Qty: 30 0RF methocarbamol 500 mg tablet 1,000 mg PO Q8H PRN (Reason: pain) Qty: 30 0RF naproxen [Naprosyn] 500 mg tablet 500 mg PO BID Qty: 14 0RF ibuprofen 600 mg tablet 600 mg PO Q6H PRN (Reason: fever or pain) Qty: 30 0RF cyclobenzaprine 5 mg tablet 5 mg PO TID PRN (Reason: muscle spasm) Qty: 14 0RF naproxen 500 mg tablet 500 mg PO BID PRN (Reason: pain) Qty: 30 0RF cyclobenzaprine 5 mg tablet 5 mg PO TID PRN (Reason: muscle spasm) Qty: 30 0RF acetaminophen 500 mg capsule 500 mg PO Q6H PRN (Reason: pain) Qty: 30 0RF Problem List Clinical Impression: Leg pain, Homelessness Patient/Caregiver Discharge Instructions Education Materials: Medicine for Pain Additional Instructions: Please follow up with your primary care doctor in the next 24-48hrs for any worsening symptoms return here immediately Print Language: Barbadian Stand Alone Forms: Tami Award Info., Patient Portal Info Letter PA/QUALITY ASSURANCE ADVISOR Supervising Physician PA/QUALITY ASSURANCE ADVISOR Supervising Physician: dr gordon
== END 2025-04-21 09:10 | disposition home or self-care (01) ==
LOC: SERX 08:55
PROVIDERS: Emergency Provider Emergency Medicine; PCP Family Medicine
DX: M79.605 Pain in left leg (principal); M79.604 Pain in right leg; Z59.00 Homelessness unspecified
CPT/HCPCS: 99281

== ENCOUNTER 2025-04-21 17:07 | Emergency (ER) | payer MEDICAID, SELFPAY ==
[2025-04-21 17:08] VITALS: PULSE 64; RESP 18; O2SAT 98
--- NOTE | 2025-04-21 18:02 | PC.NURSE ---
PATIENT OBSERVED LEAVING ER LOBBY AND CROSSING STREET OVER TO BUS STOP.
== END 2025-04-21 18:00 | disposition left against medical advice (07) ==
PROVIDERS: Emergency Provider Emergency Medicine; PCP Family Medicine
DX: Z53.21 Procedure and treatment not carried out due to patient leaving prior to being seen by health care provider (principal)

== ENCOUNTER 2025-05-02 20:53 | Emergency (ER) | payer MEDICAID, SELFPAY ==
[2025-05-02 20:55] VITALS: PULSE 80; RESP 18; O2SAT 96; BMI 30.5
--- NOTE | 2025-05-02 21:25 | PC.NURSE ---
Pt did not answer when name was called and was not found outside.
--- NOTE | 2025-05-02 22:26 | PC.NURSE ---
CALLED PATIENT IN THE LOBBY AND OUTSIDE, NO ANSWER RECEIVED.
== END 2025-05-02 22:29 | disposition left against medical advice (07) ==
LOC: SERX 22:17
PROVIDERS: Emergency Provider Emergency Medicine
DX: Z53.21 Procedure and treatment not carried out due to patient leaving prior to being seen by health care provider (principal)

== ENCOUNTER 2025-05-03 10:54 | Emergency (ER) | payer MEDICAID, SELFPAY ==
[2025-05-03 10:55] VITALS: PULSE 98; RESP 18; O2SAT 97
[2025-05-03 11:37] VITALS: BP 110/75; PULSE 72; RESP 18; TEMP 36.7; O2SAT 97; BMI 32.8
--- NOTE | 2025-05-03 11:44 | EDNOTE_ITS ---
ED Extremity Problem RME/HPI General Chief complaint: Extremity Problem,Nontraumatic Stated complaint: Leg pain Time Seen by Provider: 05/03/25 11:15 Arrival date/time: 05/03/25 10:54 RME / HPI RME / HPI Narrative: 45-year-old male patient with significant history of homelessness, drug abuse came in for evaluation regarding chronic leg pain. On my evaluation patient told me that his leg hurts, has been ongoing for several months, coming here almost every day on the same complaints. Patient is ambulatory denies any trauma denies any other swelling denies any other complaints no medications taken prior travel. Related Data Previous Rx's ?Medication ?Instructions ?Recorded sulfamethoxazole 800 1 tab PO BID #14 tabs mg-trimethoprim 160 mg tablet (Bactrim DS) cyclobenzaprine 5 mg tablet 5 mg PO TID PRN muscle spa sm #30 07/23/23 tabs naproxen 500 mg tablet 500 mg PO BID PRN pain #30 t abs 07/23/23 naproxen 500 mg tablet 500 mg PO BID PRN pain #30 t abs 08/08/23 tamsulosin 0.4 mg capsule (Flomax) 0.4 mg PO QDAY #30 caps 08/08/23 baclofen 10 mg tablet 10 mg PO BID PRN muscle spas m #30 08/14/23 tabs naproxen 500 mg tablet 500 mg PO BID PRN pain #30 t abs 08/14/23 ibuprofen 800 mg tablet 800 mg PO TID PRN pain #30 t abs 08/28/23 ibuprofen 600 mg tablet 600 mg PO Q6H PRN pain #30 t abs 01/27/24 methocarbamol 500 mg tablet 1,000 mg (2 x 500 mg) PO Q 8H PRN 01/27/24 pain #30 tabs naproxen 500 mg tablet (Naprosyn) 500 mg PO BID #14 ta bs 03/15/24 ibuprofen 800 mg tablet 800 mg PO TID PRN pain #30 t abs 04/02/24 cyclobenzaprine 5 mg tablet 5 mg PO TID PRN muscle spa sm #14 04/07/24 tabs ibuprofen 600 mg tablet 600 mg PO Q6H PRN fever or p ain 04/07/24 #30 tabs ibuprofen 600 mg tablet 600 mg PO Q6H PRN pain #30 t abs 04/07/24 cyclobenzaprine 5 mg tablet 5 mg PO TID PRN muscle spa sm #30 04/11/24 tabs naproxen 500 mg tablet 500 mg PO BID PRN pain #30 t abs 04/11/24 ibuprofen 600 mg tablet 600 mg PO Q8H PRN pain #20 t abs 11/03/24 acetaminophen 500 mg capsule 500 mg PO Q6H PRN pain #3 0 caps 12/03/24 acetaminophen 500 mg capsule 500 mg PO Q6H PRN pain #3 0 caps 12/15/24 cyclobenzaprine 5 mg tablet 5 mg PO TID PRN muscle spa sm #15 12/20/24 tabs lidocaine 5 % topical patch 2 patch topical QDAY PRN p ain #30 12/20/24 (Lidoderm) ea naproxen 500 mg tablet 500 mg PO BID PRN pain #14 t abs 04/04/25 Allergies Allergy/AdvReac Type Severity Reaction Status Date / Time No Known Allergies Allergy Verified 05/03/25 11:04 Review of Systems Review of Systems Narrative Review of Systems: Review of system reviewed and within normal limits except mentioned in HPI ED Exam Narrative Physical exam: VITAL SIGNS: Reviewed. GENERAL APPEARANCE: Alert and interactive, follows commands, no acute distress, unkept HEAD AND FACE: Non-traumatic. ENT: PERRL, pink conjunctivitis, eyelid no trauma, Mucous membrane moist. NECK: Supple, nontender, no nuchal rigidity. CHEST: No tenderness, no crepitus, no paradoxical movement, no retractions. LUNGS: Clear, well ventilated, symmetric, no rales, no wheezing, no ronchi, no stridor, good breath sounds bilaterally. HEART: Regular rate, regular rhythm, no murmur, no gallops. ABDOMEN: Soft, positive bowel sounds, nondistended, no guarding, nontender, no rebound, no masses, RECTAL: Deferred. GENITAL: Deferred. NEUROLOGICAL: Gross motor function intact sensory function intact, Appropriate for age. MUSCULOSKELETAL: low back nontender, full range of motion. EXTREMITIES: Bilateral lower leg tenderness, no redness no swelling full range of motion of the ankle and the knee joints SKIN: Color pink, dry, no rash, no lacerations, no abrasions, no contusions. LYMPHATICS: Deferred. Course Quality Measures none Orders Category Date Time Status Ibuprofen Tab [Motrin Tab] Med 05/03/25 11:43 Discontinued 800 mg PO X1 ONE Vital Signs Vital signs: Vital Signs Temperature 98.0 F 05/03/25 11:37 Pulse Rate 72 05/03/25 11:37 Respiratory Rate 18 05/03/25 11:37 Blood Pressure 110/75 05/03/25 11:37 Pulse Oximetry (%) 97 05/03/25 11:37 Oxygen Delivery Method Room Air 05/03/25 11:37 Extremity Problem MDM Narrative MDM Narrative:: 45-year-old male patient with significant history of homelessness, drug abuse came in for evaluation regarding chronic leg pain. On my evaluation patient told me that his leg hurts, has been ongoing for several months, coming here almost every day on the same complaints. Patient is ambulatory denies any trauma denies any other swelling denies any other complaints no medications taken prior travel. Imaging workup is not this time patient has been having chronic pain for several months. And very well-known to us. Was given Motrin. Patient data External records reviewed:: None Clinical information provided by:: none Social determinants that could affect healthcare access:: none Patient has the following chronic illnesses:: Homelessness How is presenting disease/condition affected by chronic disease/condition?: uneffected by Evaluation data The following diagnostics were reviewed and interpreted by me:: other (specify) (None) Lab and/or radiology exams considered but not ordered:: None Interpretation Summary: None Medications / Prescriptions Medications or Prescriptions considered but not ordered:: None Medication administrations:: Medication Administration History Discontinued Medications Ibuprofen (Ibuprofen Tab 400 Mg Tablet) 800 mg PO X1 ONE Stop: 05/03/25 11:44 Last Admin: 05/03/25 12:12 Dose: 800 mg Documented By: MARYANN Motrin Consultations Consultation(s) initiated? (list below): No Diagnosis Extremity Problem Differential Diagnosis: cellulitis and lower extremity edema Most likely diagnosis given after review of the tests above:: Chronic leg pain Admission Indicated Admission indicated?: not indicated Admission Request Was there a request for admission?: No Disposition Plan Disposition Plan: Discharge Discharge Attestation Discharge Attestation: Patient condition: Stable Discharge Plan Plan Patient Disposition: HOME (Self Care) Discharge Disposition comment: Stable Prescriptions/Referrals Prescriptions/Med Rec: No Action naproxen 500 mg tablet 500 mg PO BID PRN (Reason: pain) Qty: 30 0RF cyclobenzaprine 5 mg tablet 5 mg PO TID PRN (Reason: muscle spasm) Qty: 30 0RF naproxen 500 mg tablet 500 mg PO BID PRN (Reason: pain) Qty: 30 0RF baclofen 10 mg tablet 10 mg PO BID PRN (Reason: muscle spasm) Qty: 30 0RF ibuprofen 800 mg tablet 800 mg PO TID PRN (Reason: pain) Qty: 30 0RF ibuprofen 800 mg tablet 800 mg PO TID PRN (Reason: pain) Qty: 30 0RF ibuprofen 600 mg tablet 600 mg PO Q6H PRN (Reason: pain) Qty: 30 0RF ibuprofen 600 mg tablet 600 mg PO Q8H PRN (Reason: pain) Qty: 20 0RF acetaminophen 500 mg capsule 500 mg PO Q6H PRN (Reason: pain) Qty: 30 0RF lidocaine [Lidoderm] 5 % adhesive patch,medicated 2 patch topical QDAY PRN (Reason: pain) Qty: 30 0RF Rx Instructions: leave on most painful area for up to 12 hrs cyclobenzaprine 5 mg tablet 5 mg PO TID PRN (Reason: muscle spasm) Qty: 15 0RF naproxen 500 mg tablet 500 mg PO BID PRN (Reason: pain) Qty: 14 0RF sulfamethoxazole-trimethoprim [Bactrim DS] 800-160 mg tablet 1 tab PO BID Qty: 14 0RF naproxen 500 mg tablet 500 mg PO BID PRN (Reason: pain) Qty: 30 0RF tamsulosin [Flomax] 0.4 mg capsule 0.4 mg PO QDAY Qty: 30 0RF ibuprofen 600 mg tablet 600 mg PO Q6H PRN (Reason: pain) Qty: 30 0RF methocarbamol 500 mg tablet 1,000 mg PO Q8H PRN (Reason: pain) Qty: 30 0RF naproxen [Naprosyn] 500 mg tablet 500 mg PO BID Qty: 14 0RF ibuprofen 600 mg tablet 600 mg PO Q6H PRN (Reason: fever or pain) Qty: 30 0RF cyclobenzaprine 5 mg tablet 5 mg PO TID PRN (Reason: muscle spasm) Qty: 14 0RF naproxen 500 mg tablet 500 mg PO BID PRN (Reason: pain) Qty: 30 0RF cyclobenzaprine 5 mg tablet 5 mg PO TID PRN (Reason: muscle spasm) Qty: 30 0RF acetaminophen 500 mg capsule 500 mg PO Q6H PRN (Reason: pain) Qty: 30 0RF Referrals: Lavell (PCP),MD Cody [Primary Care Provider] - In 1 week Problem List Clinical Impression: Chronic leg pain, Homelessness Patient/Caregiver Discharge Instructions Discharge Activity: activity as tolerated Education Materials: ED Chronic Pain Additional Instructions: Thank you for the opportunity for serving you today. You are stable for discharged . You are advised to: Follow-up with your PCP in 1 to 2 days Return to ED for worsening of symptoms Increase oral fluids Take [id number] Tylenol Motrin as needed for pain Print Language: [place] Stand Alone Forms: Tami Award Info., Patient Portal Info Letter PA/PREFORMS LAMINATOR Supervising Physician FAINA/DEVYN Supervising Physician: MD Hillary
[2025-05-03] MEDS: IBUPROFEN TAB 400 MG TABLET 800 MG PO (12:12)
--- NOTE | 2025-05-03 14:11 | PC.NURSE ---
PT NOT FOUND IN OR OUTSIDE ED. PER TRIAGE NURSE PT ELOPED.
== END 2025-05-03 14:12 | disposition home or self-care (01) ==
PROVIDERS: Emergency Provider Emergency Medicine; PCP Family Medicine
DX: G89.29 Other chronic pain (principal); M79.606 Pain in leg, unspecified; Z59.00 Homelessness unspecified
CPT/HCPCS: 99282; A9270

== ENCOUNTER 2025-05-03 15:25 | Emergency (ER) | payer MEDICAID, SELFPAY ==
[2025-05-03 15:54] VITALS: BP 127/76; PULSE 77; RESP 18; TEMP 36.8; O2SAT 98; BMI 24.1
[2025-05-03 16:02] VITALS: PULSE 92; RESP 16; O2SAT 98
--- NOTE | 2025-05-03 16:07 | EDNOTE_ITS ---
Lower Extremity Injury RME/HPI General Chief Complaint: Extremity Injury, Lower Stated Complaint: LEG PAIN Time Seen by Provider: 05/03/25 15:35 Arrival date/time: 05/03/25 15:25 RME / HPI RME / HPI Narrative: 45-year-old male patient came in for evaluation regarding complains about chronic leg pain. Patient was seen here earlier this morning regarding the same complaints. Was given Motrin however patient did not go home still waiting in the ED and complaining the same thing. Patient is also asking for food. Patient is homeless Related Data Previous Rx's ?Medication ?Instructions ?Recorded sulfamethoxazole 800 1 tab PO BID #14 tabs mg-trimethoprim 160 mg tablet (Bactrim DS) cyclobenzaprine 5 mg tablet 5 mg PO TID PRN muscle spa sm #30 07/23/23 tabs naproxen 500 mg tablet 500 mg PO BID PRN pain #30 t abs 07/23/23 naproxen 500 mg tablet 500 mg PO BID PRN pain #30 t abs 08/08/23 tamsulosin 0.4 mg capsule (Flomax) 0.4 mg PO QDAY #30 caps 08/08/23 baclofen 10 mg tablet 10 mg PO BID PRN muscle spas m #30 08/14/23 tabs naproxen 500 mg tablet 500 mg PO BID PRN pain #30 t abs 08/14/23 ibuprofen 800 mg tablet 800 mg PO TID PRN pain #30 t abs 08/28/23 ibuprofen 600 mg tablet 600 mg PO Q6H PRN pain #30 t abs 01/27/24 methocarbamol 500 mg tablet 1,000 mg (2 x 500 mg) PO Q 8H PRN 01/27/24 pain #30 tabs naproxen 500 mg tablet (Naprosyn) 500 mg PO BID #14 ta bs 03/15/24 ibuprofen 800 mg tablet 800 mg PO TID PRN pain #30 t abs 04/02/24 cyclobenzaprine 5 mg tablet 5 mg PO TID PRN muscle spa sm #14 04/07/24 tabs ibuprofen 600 mg tablet 600 mg PO Q6H PRN fever or p ain 04/07/24 #30 tabs ibuprofen 600 mg tablet 600 mg PO Q6H PRN pain #30 t abs 04/07/24 cyclobenzaprine 5 mg tablet 5 mg PO TID PRN muscle spa sm #30 04/11/24 tabs naproxen 500 mg tablet 500 mg PO BID PRN pain #30 t abs 04/11/24 ibuprofen 600 mg tablet 600 mg PO Q8H PRN pain #20 t abs 11/03/24 acetaminophen 500 mg capsule 500 mg PO Q6H PRN pain #3 0 caps 12/03/24 acetaminophen 500 mg capsule 500 mg PO Q6H PRN pain #3 0 caps 12/15/24 cyclobenzaprine 5 mg tablet 5 mg PO TID PRN muscle spa sm #15 12/20/24 tabs lidocaine 5 % topical patch 2 patch topical QDAY PRN p ain #30 12/20/24 (Lidoderm) ea naproxen 500 mg tablet 500 mg PO BID PRN pain #14 t abs 04/04/25 Allergies Allergy/AdvReac Type Severity Reaction Status Date / Time No Known Allergies Allergy Verified 05/03/25 11:04 Review of Systems Review of Systems Narrative Review of Systems: Review of system reviewed and within normal limits except mentioned in HPI ED Exam Narrative Physical exam: VITAL SIGNS: Reviewed. GENERAL APPEARANCE: Alert and interactive, follows commands, no acute distress, unkept HEAD AND FACE: Non-traumatic. ENT: PERRL, pink conjunctivitis, eyelid no trauma, Mucous membrane moist. NECK: Supple, nontender, no nuchal rigidity. CHEST: No tenderness, no crepitus, no paradoxical movement, no retractions. LUNGS: Clear, well ventilated, symmetric, no rales, no wheezing, no ronchi, no stridor, good breath sounds bilaterally. HEART: Regular rate, regular rhythm, no murmur, no gallops. ABDOMEN: Soft, positive bowel sounds, nondistended, no guarding, nontender, no rebound, no masses, RECTAL: Deferred. GENITAL: Deferred. NEUROLOGICAL: Gross motor function intact sensory function intact, Appropriate for age. MUSCULOSKELETAL: low back nontender, full range of motion. EXTREMITIES: Bilateral lower leg tenderness, no redness no swelling no deformity full range of motion of the ankle and knee joints, SKIN: Color pink, dry, no rash, no lacerations, no abrasions, no contusions. LYMPHATICS: Deferred. Course Quality Measures none Vital Signs Vital signs: Vital Signs Temperature 98.3 F 05/03/25 15:54 Pulse Rate 77 06/14/25 15:54 Respiratory Rate 18 05/03/25 15:54 Blood Pressure 127/76 05/03/25 15:54 Pulse Oximetry (%) 98 05/03/25 15:54 Oxygen Delivery Method Room Air 05/03/25 15:54 Extremity Injury, Lower MDM Narrative MDM Narrative:: Imaging workup not at this time. Patient has been coming to this emergency room frequently for the same reasons asking for food and telling us that he had chronic leg pain. Patient is homeless Patient data External records reviewed:: None Clinical information provided by:: patient Social determinants that could affect healthcare access:: none Patient has the following chronic illnesses:: None How is presenting disease/condition affected by chronic disease/condition?: exacerbated by Evaluation data The following diagnostics were reviewed and interpreted by me:: other (specify) (None) Lab and/or radiology exams considered but not ordered:: None Interpretation Summary: None Medications / Prescriptions Medications or Prescriptions considered but not ordered:: None Medication administrations:: None Consultations Consultation(s) initiated? (list below): No Diagnosis Extremity Injury, Lower Differential Diagnosis: other (Malingering, chronic leg pain, homelessness) Most likely diagnosis given after review of the tests above:: Chronic leg pain, homelessness Admission Indicated Admission indicated?: not indicated Admission Request Was there a request for admission?: No Disposition Plan Disposition Plan: Discharge Discharge Attestation Discharge Attestation: Patient condition: Stable Discharge Plan Plan Patient Disposition: HOME (Self Care) Discharge Disposition comment: Stable Prescriptions/Referrals Prescriptions/Med Rec: No Action naproxen 500 mg tablet 500 mg PO BID PRN (Reason: pain) Qty: 30 0RF cyclobenzaprine 5 mg tablet 5 mg PO TID PRN (Reason: muscle spasm) Qty: 30 0RF naproxen 500 mg tablet 500 mg PO BID PRN (Reason: pain) Qty: 30 0RF baclofen 10 mg tablet 10 mg PO BID PRN (Reason: muscle spasm) Qty: 30 0RF ibuprofen 800 mg tablet 800 mg PO TID PRN (Reason: pain) Qty: 30 0RF ibuprofen 800 mg tablet 800 mg PO TID PRN (Reason: pain) Qty: 30 0RF ibuprofen 600 mg tablet 600 mg PO Q6H PRN (Reason: pain) Qty: 30 0RF ibuprofen 600 mg tablet 600 mg PO Q8H PRN (Reason: pain) Qty: 20 0RF acetaminophen 500 mg capsule 500 mg PO Q6H PRN (Reason: pain) Qty: 30 0RF lidocaine [Lidoderm] 5 % adhesive patch,medicated 2 patch topical QDAY PRN (Reason: pain) Qty: 30 0RF Rx Instructions: leave on most painful area for up to 12 hrs cyclobenzaprine 5 mg tablet 5 mg PO TID PRN (Reason: muscle spasm) Qty: 15 0RF naproxen 500 mg tablet 500 mg PO BID PRN (Reason: pain) Qty: 14 0RF sulfamethoxazole-trimethoprim [Bactrim DS] 800-160 mg tablet 1 tab PO BID Qty: 14 0RF naproxen 500 mg tablet 500 mg PO BID PRN (Reason: pain) Qty: 30 0RF tamsulosin [Flomax] 0.4 mg capsule 0.4 mg PO QDAY Qty: 30 0RF ibuprofen 600 mg tablet 600 mg PO Q6H PRN (Reason: pain) Qty: 30 0RF methocarbamol 500 mg tablet 1,000 mg PO Q8H PRN (Reason: pain) Qty: 30 0RF naproxen [Naprosyn] 500 mg tablet 500 mg PO BID Qty: 14 0RF ibuprofen 600 mg tablet 600 mg PO Q6H PRN (Reason: fever or pain) Qty: 30 0RF cyclobenzaprine 5 mg tablet 5 mg PO TID PRN (Reason: muscle spasm) Qty: 14 0RF naproxen 500 mg tablet 500 mg PO BID PRN (Reason: pain) Qty: 30 0RF cyclobenzaprine 5 mg tablet 5 mg PO TID PRN (Reason: muscle spasm) Qty: 30 0RF acetaminophen 500 mg capsule 500 mg PO Q6H PRN (Reason: pain) Qty: 30 0RF Referrals: Lavell (PCP)Cody MD [Primary Care Provider] - In 1 week Problem List Clinical Impression: Chronic leg pain Patient/Caregiver Discharge Instructions Education Materials: ED Chronic Pain Additional Instructions: Thank you for the opportunity for serving you today. You are stable for discharged . You are advised to: Follow-up with your PCP in 1 to 2 days Return to ED for worsening of symptoms Print Language: [place] Stand Alone Forms: Tami Award Info., Patient Portal Info Letter
--- NOTE | 2025-05-03 17:09 | PC.NURSE ---
WENT TO D/C PT. PT NOT FOUND IN OR OUTSIDE OF LOBBY. PER SECURITY PT ELOED.
--- NOTE | 2025-05-03 17:10 | PC.NURSE ---
WENT TO D/C PT. PT NOT FOUND IN OR OUTSIDE OF LOBBY. PER SECURITY PT ELOPED.
== END 2025-05-03 17:11 | disposition home or self-care (01) ==
PROVIDERS: Emergency Provider Emergency Medicine; PCP Family Medicine
DX: G89.29 Other chronic pain (principal); Z59.00 Homelessness unspecified; M79.606 Pain in leg, unspecified
CPT/HCPCS: 99281

== ENCOUNTER 2025-05-03 21:03 | Emergency (ER) | payer MEDICAID, SELFPAY ==
[2025-05-03 21:07] VITALS: PULSE 82; RESP 18; O2SAT 98; BMI 23.5
[2025-05-03 21:56] VITALS: BP 117/80; PULSE 73; RESP 17; TEMP 36.6; O2SAT 97
--- NOTE | 2025-05-03 22:03 | EDNOTE_ITS ---
ED Extremity Problem RME/HPI General Chief complaint: Extremity Problem,Nontraumatic Stated complaint: BLE Time Seen by Provider: 05/03/25 21:38 Arrival date/time: 05/03/25 21:03 RME / HPI RME / HPI Narrative: 45-year-old male patient came in with ambulance for evaluation regarding evaluation regarding chronic leg pain. Patient is homeless patient was seen here twice today for the same complaints. Patient just want something to eat. Patient's leg pain is chronic .. Patient is ambulatory. Denies any other complaints. Related Data Previous Rx's ?Medication ?Instructions ?Recorded sulfamethoxazole 800 1 tab PO BID #14 tabs mg-trimethoprim 160 mg tablet (Bactrim DS) cyclobenzaprine 5 mg tablet 5 mg PO TID PRN muscle spa sm #30 07/23/23 tabs naproxen 500 mg tablet 500 mg PO BID PRN pain #30 t abs 07/23/23 naproxen 500 mg tablet 500 mg PO BID PRN pain #30 t abs 08/08/23 tamsulosin 0.4 mg capsule (Flomax) 0.4 mg PO QDAY #30 caps 08/08/23 baclofen 10 mg tablet 10 mg PO BID PRN muscle spas m #30 08/14/23 tabs naproxen 500 mg tablet 500 mg PO BID PRN pain #30 t abs 08/14/23 ibuprofen 800 mg tablet 800 mg PO TID PRN pain #30 t abs 08/28/23 ibuprofen 600 mg tablet 600 mg PO Q6H PRN pain #30 t abs 01/27/24 methocarbamol 500 mg tablet 1,000 mg (2 x 500 mg) PO Q 8H PRN 01/27/24 pain #30 tabs naproxen 500 mg tablet (Naprosyn) 500 mg PO BID #14 ta bs 03/15/24 ibuprofen 800 mg tablet 800 mg PO TID PRN pain #30 t abs 04/02/24 cyclobenzaprine 5 mg tablet 5 mg PO TID PRN muscle spa sm #14 04/07/24 tabs ibuprofen 600 mg tablet 600 mg PO Q6H PRN fever or p ain 04/07/24 #30 tabs ibuprofen 600 mg tablet 600 mg PO Q6H PRN pain #30 t abs 04/07/24 cyclobenzaprine 5 mg tablet 5 mg PO TID PRN muscle spa sm #30 04/11/24 tabs naproxen 500 mg tablet 500 mg PO BID PRN pain #30 t abs 04/11/24 ibuprofen 600 mg tablet 600 mg PO Q8H PRN pain #20 t abs 11/03/24 acetaminophen 500 mg capsule 500 mg PO Q6H PRN pain #3 0 caps 12/03/24 acetaminophen 500 mg capsule 500 mg PO Q6H PRN pain #3 0 caps 12/15/24 cyclobenzaprine 5 mg tablet 5 mg PO TID PRN muscle spa sm #15 12/20/24 tabs lidocaine 5 % topical patch 2 patch topical QDAY PRN p ain #30 12/20/24 (Lidoderm) ea naproxen 500 mg tablet 500 mg PO BID PRN pain #14 t abs 04/04/25 Allergies Allergy/AdvReac Type Severity Reaction Status Date / Time No Known Allergies Allergy Verified 05/03/25 21:06 Review of Systems Review of Systems Narrative Review of Systems: Review of system reviewed and within normal limits except mentioned in HPI ED Exam Narrative Physical exam: VITAL SIGNS: Reviewed. GENERAL APPEARANCE: Alert and interactive, follows commands, no acute distress, HEAD AND FACE: Non-traumatic. ENT: PERRL, pink conjunctivitis, eyelid no trauma, Mucous membrane moist. NECK: Supple, nontender, no nuchal rigidity. CHEST: No tenderness, no crepitus, no paradoxical movement, no retractions. LUNGS: Clear, well ventilated, symmetric, no rales, no wheezing, no ronchi, no stridor, good breath sounds bilaterally. HEART: Regular rate, regular rhythm, no murmur, no gallops. ABDOMEN: Soft, positive bowel sounds, nondistended, no guarding, nontender, no rebound, no masses, RECTAL: Deferred. GENITAL: Deferred. NEUROLOGICAL: Gross motor function intact sensory function intact, Appropriate for age. MUSCULOSKELETAL: low back nontender, full range of motion. EXTREMITIES: Bilateral lower legs tenderness, no redness no swelling no deformity, full range of motion. SKIN: Color pink, dry, no rash, no lacerations, no abrasions, no contusions. LYMPHATICS: Deferred. Course Quality Measures none Vital Signs Vital signs: Vital Signs Temperature 97.9 F 05/03/25 21:56 Pulse Rate 73 05/03/25 21:56 Respiratory Rate 17 05/03/25 21:56 Blood Pressure 117/80 05/03/25 21:56 Pulse Oximetry (%) 97 05/03/25 21:56 Oxygen Delivery Method Room Air 05/03/25 21:56 Extremity Problem MDM Narrative MDM Narrative:: 45-year-old male patient came in with ambulance for evaluation regarding evaluation regarding chronic leg pain. Patient is homeless patient was seen here twice today for the same complaints. Patient just want something to eat. Patient's leg pain is chronic .. Patient is ambulatory. Denies any other complaints. Imaging or workup at this time. Patient was not given anything for pain. Patient is not really having leg pain patient is chest migraine. Patient just wanted a place to stay and food. Patient data External records reviewed:: None Clinical information provided by:: patient Social determinants that could affect healthcare access:: housing Patient has the following chronic illnesses:: Homelessness How is presenting disease/condition affected by chronic disease/condition?: exacerbated by Evaluation data The following diagnostics were reviewed and interpreted by me:: other (specify) Lab and/or radiology exams considered but not ordered:: None Interpretation Summary: None Medications / Prescriptions Medications or Prescriptions considered but not ordered:: None Medication administrations:: None Consultations Consultation(s) initiated? (list below): No Diagnosis Extremity Problem Differential Diagnosis: other (Chronic leg pain, health status, malingering) Most likely diagnosis given after review of the tests above:: Chronic leg pain Admission Indicated Admission indicated?: not indicated Admission Request Was there a request for admission?: No Disposition Plan Disposition Plan: Discharge Discharge Attestation Discharge Attestation: Patient condition: Stable Discharge Plan Plan Patient Disposition: HOME (Self Care) Discharge Disposition comment: stable Prescriptions/Referrals Prescriptions/Med Rec: No Action naproxen 500 mg tablet 500 mg PO BID PRN (Reason: pain) Qty: 30 0RF cyclobenzaprine 5 mg tablet 5 mg PO TID PRN (Reason: muscle spasm) Qty: 30 0RF naproxen 500 mg tablet 500 mg PO BID PRN (Reason: pain) Qty: 30 0RF baclofen 10 mg tablet 10 mg PO BID PRN (Reason: muscle spasm) Qty: 30 0RF ibuprofen 800 mg tablet 800 mg PO TID PRN (Reason: pain) Qty: 30 0RF ibuprofen 800 mg tablet 800 mg PO TID PRN (Reason: pain) Qty: 30 0RF ibuprofen 600 mg tablet 600 mg PO Q6H PRN (Reason: pain) Qty: 30 0RF ibuprofen 600 mg tablet 600 mg PO Q8H PRN (Reason: pain) Qty: 20 0RF acetaminophen 500 mg capsule 500 mg PO Q6H PRN (Reason: pain) Qty: 30 0RF lidocaine [Lidoderm] 5 % adhesive patch,medicated 2 patch topical QDAY PRN (Reason: pain) Qty: 30 0RF Rx Instructions: leave on most painful area for up to 12 hrs cyclobenzaprine 5 mg tablet 5 mg PO TID PRN (Reason: muscle spasm) Qty: 15 0RF naproxen 500 mg tablet 500 mg PO BID PRN (Reason: pain) Qty: 14 0RF sulfamethoxazole-trimethoprim [Bactrim DS] 800-160 mg tablet 1 tab PO BID Qty: 14 0RF naproxen 500 mg tablet 500 mg PO BID PRN (Reason: pain) Qty: 30 0RF tamsulosin [Flomax] 0.4 mg capsule 0.4 mg PO QDAY Qty: 30 0RF ibuprofen 600 mg tablet 600 mg PO Q6H PRN (Reason: pain) Qty: 30 0RF methocarbamol 500 mg tablet 1,000 mg PO Q8H PRN (Reason: pain) Qty: 30 0RF naproxen [Naprosyn] 500 mg tablet 500 mg PO BID Qty: 14 0RF ibuprofen 600 mg tablet 600 mg PO Q6H PRN (Reason: fever or pain) Qty: 30 0RF cyclobenzaprine 5 mg tablet 5 mg PO TID PRN (Reason: muscle spasm) Qty: 14 0RF naproxen 500 mg tablet 500 mg PO BID PRN (Reason: pain) Qty: 30 0RF cyclobenzaprine 5 mg tablet 5 mg PO TID PRN (Reason: muscle spasm) Qty: 30 0RF acetaminophen 500 mg capsule 500 mg PO Q6H PRN (Reason: pain) Qty: 30 0RF Referrals: No Primary/Family,Physician [Primary Care Provider] - In 1 week Problem List Clinical Impression: Chronic leg pain Patient/Caregiver Discharge Instructions Discharge Activity: activity as tolerated Education Materials: ED Chronic Pain Additional Instructions: Thank you for the opportunity for serving you today. You are stable for discharged . You may take Tylenol or Motrin as needed for pain Print Language: Montenegrin Stand Alone Forms: Tami Award Info., Patient Portal Info Letter
== END 2025-05-03 22:22 | disposition home or self-care (01) ==
PROVIDERS: Emergency Provider Emergency Medicine
DX: G89.29 Other chronic pain (principal); M79.606 Pain in leg, unspecified; Z59.00 Homelessness unspecified
CPT/HCPCS: 99281

== ENCOUNTER 2025-05-04 16:30 | Emergency (ER) | payer MEDICAID, SELFPAY ==
[2025-05-04 16:41] VITALS: BP 131/88; PULSE 83; RESP 19; TEMP 36.8; O2SAT 96
--- NOTE | 2025-05-04 16:49 | EDNOTE_ITS ---
ED General RME/HPI General Chief complaint: General Adult/Misc Complain Stated complaint: LEG PAIN ALL DAY Time Seen by Provider: 05/04/25 16:33 Arrival date/time: 05/04/25 16:30 45-year-old male well-known to me with history of methamphetamine abuse and homelessness presents to the emergency department today for complaints of chronic leg pain Limitations: no limitations Related Data Previous Rx's ?Medication ?Instructions ?Recorded sulfamethoxazole 800 1 tab PO BID #14 tabs mg-trimethoprim 160 mg tablet (Bactrim DS) cyclobenzaprine 5 mg tablet 5 mg PO TID PRN muscle spa sm #30 07/23/23 tabs naproxen 500 mg tablet 500 mg PO BID PRN pain #30 t abs 07/23/23 naproxen 500 mg tablet 500 mg PO BID PRN pain #30 t abs 08/08/23 tamsulosin 0.4 mg capsule (Flomax) 0.4 mg PO QDAY #30 caps 08/08/23 baclofen 10 mg tablet 10 mg PO BID PRN muscle spas m #30 08/14/23 tabs naproxen 500 mg tablet 500 mg PO BID PRN pain #30 t abs 08/14/23 ibuprofen 800 mg tablet 800 mg PO TID PRN pain #30 t abs 08/28/23 ibuprofen 600 mg tablet 600 mg PO Q6H PRN pain #30 t abs 01/27/24 methocarbamol 500 mg tablet 1,000 mg (2 x 500 mg) PO Q 8H PRN 01/27/24 pain #30 tabs naproxen 500 mg tablet (Naprosyn) 500 mg PO BID #14 ta bs 03/15/24 ibuprofen 800 mg tablet 800 mg PO TID PRN pain #30 t abs 04/02/24 cyclobenzaprine 5 mg tablet 5 mg PO TID PRN muscle spa sm #14 04/07/24 tabs ibuprofen 600 mg tablet 600 mg PO Q6H PRN fever or p ain 04/07/24 #30 tabs ibuprofen 600 mg tablet 600 mg PO Q6H PRN pain #30 t abs 04/07/24 cyclobenzaprine 5 mg tablet 5 mg PO TID PRN muscle spa sm #30 04/11/24 tabs naproxen 500 mg tablet 500 mg PO BID PRN pain #30 t abs 04/11/24 ibuprofen 600 mg tablet 600 mg PO Q8H PRN pain #20 t abs 11/03/24 acetaminophen 500 mg capsule 500 mg PO Q6H PRN pain #3 0 caps 12/03/24 acetaminophen 500 mg capsule 500 mg PO Q6H PRN pain #3 0 caps 12/15/24 cyclobenzaprine 5 mg tablet 5 mg PO TID PRN muscle spa sm #15 12/20/24 tabs lidocaine 5 % topical patch 2 patch topical QDAY PRN p ain #30 12/20/24 (Lidoderm) ea naproxen 500 mg tablet 500 mg PO BID PRN pain #14 t abs 04/04/25 Allergies Allergy/AdvReac Type Severity Reaction Status Date / Time No Known Allergies Allergy Verified 05/05/25 06:05 Review of Systems Review of Systems Systems Reviewed: All systems reviewed, normal except as documented Constitutional Constitutional: Reports system reviewed and no additional complaints, except as documented, Denies fever(s) and Denies headache(s) Eyes Eyes: Reports system reviewed and no additional complaints, except as documented and Denies blurry vision ENT Ears, Nose, Mouth, and Throat: Reports system reviewed and no additional complaints, except as documented, Denies headache(s), Denies nasal congestion, Denies nasal discharge and Denies neck pain Cardiovascular Cardiovascular: Reports system reviewed and no additional complaints, except as documented, Denies chest pain and Denies dyspnea Respiratory Respiratory: Reports system reviewed and no additional complaints, except as documented, Denies chest congestion, Denies cough and Denies dyspnea Gastrointestinal Gastrointestinal: Reports system reviewed and no additional complaints, except as documented and Denies abdominal pain Musculoskeletal Musculoskeletal: Reports system reviewed and no additional complaints, except as documented, Denies abnormal gait, Denies arthralgias, Denies back pain, Denies deformity, Denies neck pain and Reports other (Chronic bilateral leg pain) Integumentary/Breasts Skin/Breast: Reports system reviewed and no additional complaints, except as documented and Denies rash Neurologic Neurologic: Reports system reviewed and no additional complaints, except as documented, Reports as per HPI, Denies abnormal gait and Denies headache(s) Past Medical History Past Medical History NEUROLOGIC: Positive Cerebrovascular Accident; Negative Neurological Disorders CARDIAC: Positive Myocardial Infarction and Hypercholesterolemia; Negative Cardiac Disorders or Congestive Heart Failure RESPIRATORY: Negative Chronic Obstructive Pulmonary Disease (COPD) GASTROINTESTINAL: Negative Gastrointestinal Disorders GENITOURINARY: Negative Genitourinary Disorders or Renal Disease MUSCULOSKELETAL: Negative Musculoskeletal Disorders ENDOCRINE: Negative Endocrine Disorders, Diabetes Mellitus Type 1 or Diabetes Mellitus Type 2 HEMATOLOGIC: Negative Blood Disorders OTHER HISTORY: Negative Autoimmune Disease or Clostridium Difficile Social History SMOKING STATUS: Current some day smoker SUBSTANCE USE: methamphetamine ED Exam General Limitations: Present no limitations General appearance: Present alert and in no apparent distress Head Head exam: Present atraumatic Eye Eye exam: Present normal appearance, PERRL and EOMI ENT ENT exam: Present normal exam, normal oropharynx and mucous membranes moist Neck Neck exam: Present normal inspection, full ROM and trachea midline Chest Chest inspection: Present normal inspection and symmetric chest wall rise Respiratory Respiratory exam: Present normal lung sounds bilaterally Cardiovascular Cardiovascular exam: Present regular rate, normal rhythm and normal heart sounds Abdominal Exam Abdominal exam: Present soft and normal bowel sounds Extremities Exam Extremities exam: Present normal inspection and full ROM Back Exam Back exam: Present normal inspection and full ROM Neurological Exam Neurological exam: Present alert, oriented X3, CN II-XII intact and reflexes normal; Absent motor sensory deficit Psychiatric Psychiatric exam: Present normal affect and normal mood Skin Skin exam: Present warm, dry, intact and normal color; Absent rash Course Quality Measures none Vital Signs Vital signs: Vital Signs Temperature 98.3 F 05/04/25 16:41 Pulse Rate 83 05/04/25 16:41 Respiratory Rate 19 05/04/25 16:41 Blood Pressure 131/88 H 05/04/25 16:41 Pulse Oximetry (%) 96 05/04/25 16:41 Oxygen Delivery Method Room Air 05/04/25 16:41 O2 saturation 96% room air within normal limits Discharge Plan Plan Patient Disposition: HOME (Self Care) Discharge Disposition comment: Stable Prescriptions/Referrals Prescriptions/Med Rec: No Action naproxen 500 mg tablet 500 mg PO BID PRN (Reason: pain) Qty: 30 0RF cyclobenzaprine 5 mg tablet 5 mg PO TID PRN (Reason: muscle spasm) Qty: 30 0RF naproxen 500 mg tablet 500 mg PO BID PRN (Reason: pain) Qty: 30 0RF baclofen 10 mg tablet 10 mg PO BID PRN (Reason: muscle spasm) Qty: 30 0RF ibuprofen 800 mg tablet 800 mg PO TID PRN (Reason: pain) Qty: 30 0RF ibuprofen 800 mg tablet 800 mg PO TID PRN (Reason: pain) Qty: 30 0RF ibuprofen 600 mg tablet 600 mg PO Q6H PRN (Reason: pain) Qty: 30 0RF ibuprofen 600 mg tablet 600 mg PO Q8H PRN (Reason: pain) Qty: 20 0RF acetaminophen 500 mg capsule 500 mg PO Q6H PRN (Reason: pain) Qty: 30 0RF lidocaine [Lidoderm] 5 % adhesive patch,medicated 2 patch topical QDAY PRN (Reason: pain) Qty: 30 0RF Rx Instructions: leave on most painful area for up to 12 hrs cyclobenzaprine 5 mg tablet 5 mg PO TID PRN (Reason: muscle spasm) Qty: 15 0RF naproxen 500 mg tablet 500 mg PO BID PRN (Reason: pain) Qty: 14 0RF sulfamethoxazole-trimethoprim [Bactrim DS] 800-160 mg tablet 1 tab PO BID Qty: 14 0RF naproxen 500 mg tablet 500 mg PO BID PRN (Reason: pain) Qty: 30 0RF tamsulosin [Flomax] 0.4 mg capsule 0.4 mg PO QDAY Qty: 30 0RF ibuprofen 600 mg tablet 600 mg PO Q6H PRN (Reason: pain) Qty: 30 0RF methocarbamol 500 mg tablet 1,000 mg PO Q8H PRN (Reason: pain) Qty: 30 0RF naproxen [Naprosyn] 500 mg tablet 500 mg PO BID Qty: 14 0RF ibuprofen 600 mg tablet 600 mg PO Q6H PRN (Reason: fever or pain) Qty: 30 0RF cyclobenzaprine 5 mg tablet 5 mg PO TID PRN (Reason: muscle spasm) Qty: 14 0RF naproxen 500 mg tablet 500 mg PO BID PRN (Reason: pain) Qty: 30 0RF cyclobenzaprine 5 mg tablet 5 mg PO TID PRN (Reason: muscle spasm) Qty: 30 0RF acetaminophen 500 mg capsule 500 mg PO Q6H PRN (Reason: pain) Qty: 30 0RF Problem List Clinical Impression: Chronic pain of lower extremity, bilateral Patient/Caregiver Discharge Instructions Education Materials: ED Myalgias Additional Instructions: Please follow up with your primary care doctor in the next 24-48hrs for any worsening symptoms return here immediately Print Language: Ukrainian Stand Alone Forms: Tami Award Info., Patient Portal Info Letter PA/DEVYN Supervising Physician FAINA/EDVYN Supervising Physician: dr светлана QUINTANILLA Narrative MDM hospital course: 45-year-old male well-known to me with history of methamphetamine abuse and homelessness presents to the emergency department today for complaints of chronic leg pain patient reports he like food and water Insert medicine for pain Patient reports primary concern for being here today is that he wants food Patient was given food patient is discharged home Patient discharged home in no distress to follow-up with primary care doctor in the next 24 to 48 hours and for any worsening symptoms to return to the ER immediately Clinical Information Provided by patient Medical Records Reviewed [facility] Meds/Rx Considered, not Ordered None Labs/Rad/Tests considered, not Ordered None Chronic Illness/Social Conditions which may negatively complicate care or outcome(s)-explain: Homeless EKG EKG not done Lab Interpretation Labs: none Imaging Imaging interpretation: none Medication Administration(s) none Diagnosis Differential diagnosis: Acute on chronic pain, drug-seeking behavior, homeless Differential dx and/or dx ruled out: Acute on chronic pain, homelessness Dispositon Disposition: Discharge Home
== END 2025-05-04 16:59 | disposition home or self-care (01) ==
LOC: SERX 16:54
PROVIDERS: Emergency Provider Family Medicine; PCP Family Medicine
DX: M79.605 Pain in left leg (principal); M79.604 Pain in right leg; G89.29 Other chronic pain; Z59.00 Homelessness unspecified
CPT/HCPCS: 99281

== ENCOUNTER 2025-05-04 23:12 | Emergency (ER) | payer MEDICAID, SELFPAY ==
[2025-05-04 23:13] VITALS: PULSE 96; O2SAT 97; BMI 29.7
[2025-05-05 00:20] VITALS: BP 162/94; PULSE 87; RESP 20; TEMP 36.9; O2SAT 99
--- NOTE | 2025-05-05 00:26 | EDNOTE_ITS ---
ED Extremity Problem RME/HPI General Chief complaint: Extremity Problem,Nontraumatic Stated complaint: BLE PAIN Time Seen by Provider: 05/04/25 23:39 Arrival date/time: 05/04/25 23:12 RME / HPI RME / HPI Narrative: 45-year-old male presents to the ED for his third visit today complaining of bilateral lower extremity pain. He has been given multiple prescriptions for pain which he has not picked up at the pharmacy. These medications include Tylenol, baclofen, cyclobenzaprine, ibuprofen, Lidoderm patches, methocarbamol, naproxen. Related Data Previous Rx's ?Medication ?Instructions ?Recorded sulfamethoxazole 800 1 tab PO BID #14 tabs mg-trimethoprim 160 mg tablet (Bactrim DS) cyclobenzaprine 5 mg tablet 5 mg PO TID PRN muscle spa sm #30 07/23/23 tabs naproxen 500 mg tablet 500 mg PO BID PRN pain #30 t abs 07/23/23 naproxen 500 mg tablet 500 mg PO BID PRN pain #30 t abs 08/08/23 tamsulosin 0.4 mg capsule (Flomax) 0.4 mg PO QDAY #30 caps 08/08/23 baclofen 10 mg tablet 10 mg PO BID PRN muscle spas m #30 08/14/23 tabs naproxen 500 mg tablet 500 mg PO BID PRN pain #30 t abs 08/14/23 ibuprofen 800 mg tablet 800 mg PO TID PRN pain #30 t abs 08/28/23 ibuprofen 600 mg tablet 600 mg PO Q6H PRN pain #30 t abs 01/27/24 methocarbamol 500 mg tablet 1,000 mg (2 x 500 mg) PO Q 8H PRN 01/27/24 pain #30 tabs naproxen 500 mg tablet (Naprosyn) 500 mg PO BID #14 ta bs 03/15/24 ibuprofen 800 mg tablet 800 mg PO TID PRN pain #30 t abs 04/02/24 cyclobenzaprine 5 mg tablet 5 mg PO TID PRN muscle spa sm #14 04/07/24 tabs ibuprofen 600 mg tablet 600 mg PO Q6H PRN fever or p ain 04/07/24 #30 tabs ibuprofen 600 mg tablet 600 mg PO Q6H PRN pain #30 t abs 04/07/24 cyclobenzaprine 5 mg tablet 5 mg PO TID PRN muscle spa sm #30 04/11/24 tabs naproxen 500 mg tablet 500 mg PO BID PRN pain #30 t abs 04/11/24 ibuprofen 600 mg tablet 600 mg PO Q8H PRN pain #20 t abs 11/03/24 acetaminophen 500 mg capsule 500 mg PO Q6H PRN pain #3 0 caps 12/03/24 acetaminophen 500 mg capsule 500 mg PO Q6H PRN pain #3 0 caps 12/15/24 cyclobenzaprine 5 mg tablet 5 mg PO TID PRN muscle spa sm #15 12/20/24 tabs lidocaine 5 % topical patch 2 patch topical QDAY PRN p ain #30 12/20/24 (Lidoderm) ea naproxen 500 mg tablet 500 mg PO BID PRN pain #14 t abs 04/04/25 Allergies Allergy/AdvReac Type Severity Reaction Status Date / Time No Known Allergies Allergy Verified 05/09/25 10:05 Review of Systems Review of Systems Systems Reviewed: All systems reviewed, normal except as documented Past Medical History Past Medical History NEUROLOGIC: Positive Cerebrovascular Accident; Negative Neurological Disorders CARDIAC: Positive Myocardial Infarction and Hypercholesterolemia; Negative Cardiac Disorders or Congestive Heart Failure RESPIRATORY: Negative Chronic Obstructive Pulmonary Disease (COPD) GASTROINTESTINAL: Negative Gastrointestinal Disorders GENITOURINARY: Negative Genitourinary Disorders or Renal Disease MUSCULOSKELETAL: Negative Musculoskeletal Disorders ENDOCRINE: Negative Endocrine Disorders, Diabetes Mellitus Type 1 or Diabetes Mellitus Type 2 HEMATOLOGIC: Negative Blood Disorders OTHER HISTORY: Negative Autoimmune Disease or Clostridium Difficile Social History SMOKING STATUS: Current some day smoker SUBSTANCE USE: methamphetamine ED Exam Narrative Physical exam: Alert 45-year-old male, no acute distress, disheveled appearance. Requesting a sandwich. Lungs are clear, regular rate and rhythm. Ambulatory. Course Quality Measures none Orders N/A Vital Signs Vital signs: Vital Signs Temperature 98.4 F 05/05/25 00:20 Pulse Rate 87 05/05/25 00:20 Respiratory Rate 20 05/05/25 00:20 Blood Pressure 162/94 H 05/05/25 00:20 Pulse Oximetry (%) 99 05/05/25 00:20 Oxygen Delivery Method Room Air 05/05/25 00:20 Extremity Problem MDM Narrative MDM Narrative:: 45-year-old male presents to the ED for his third visit today complaining of bilateral lower extremity pain. He has been given multiple prescriptions for pain which he has not picked up at the pharmacy. These medications include Tylenol, baclofen, cyclobenzaprine, ibuprofen, Lidoderm patches, methocarbamol, naproxen. Alert 45-year-old male, no acute distress, disheveled appearance. Requesting a sandwich. Lungs are clear, regular rate and rhythm. Ambulatory. He was discharged home with instructions to pick pulling machine operator his prescriptions at the pharmacy. He has multiple medications waiting there for him to pick pulling machine operator. Patient data External records reviewed:: [facility] previous records Clinical information provided by:: patient Social determinants that could affect healthcare access:: mental health Patient has the following chronic illnesses:: Chronic pain How is presenting disease/condition affected by chronic disease/condition?: exacerbated by Evaluation data The following diagnostics were reviewed and interpreted by me:: other (specify) (N/A) Lab and/or radiology exams considered but not ordered:: N/A Interpretation Summary: N/A Medications / Prescriptions Medications or Prescriptions considered but not ordered:: N/A Medication administrations:: N/A Consultations Consultation(s) initiated? (list below): No Diagnosis Extremity Problem Differential Diagnosis: other (Chronic pain) Most likely diagnosis given after review of the tests above:: Chronic pain Admission Indicated Admission indicated?: not indicated Explain why admission is indicated or not indicated:: Patient is stable for discharge Admission Request Was there a request for admission?: No Disposition Plan Disposition Plan: Discharge Discharge Attestation Discharge Attestation: The patient and all family members were given an opportunity to ask questions and understood the discharge instructions. Discharge instructions specifically effects, indications for sooner follow up or return to the emergency department, and the expected course of current diagnosis. Patient condition: Stable Discharge Plan Plan Patient Disposition: HOME (Self Care) Discharge Disposition comment: Stable Prescriptions/Referrals Prescriptions/Med Rec: No Action naproxen 500 mg tablet 500 mg PO BID PRN (Reason: pain) Qty: 30 0RF cyclobenzaprine 5 mg tablet 5 mg PO TID PRN (Reason: muscle spasm) Qty: 30 0RF naproxen 500 mg tablet 500 mg PO BID PRN (Reason: pain) Qty: 30 0RF baclofen 10 mg tablet 10 mg PO BID PRN (Reason: muscle spasm) Qty: 30 0RF ibuprofen 800 mg tablet 800 mg PO TID PRN (Reason: pain) Qty: 30 0RF ibuprofen 800 mg tablet 800 mg PO TID PRN (Reason: pain) Qty: 30 0RF ibuprofen 600 mg tablet 600 mg PO Q6H PRN (Reason: pain) Qty: 30 0RF ibuprofen 600 mg tablet 600 mg PO Q8H PRN (Reason: pain) Qty: 20 0RF acetaminophen 500 mg capsule 500 mg PO Q6H PRN (Reason: pain) Qty: 30 0RF lidocaine [Lidoderm] 5 % adhesive patch,medicated 2 patch topical QDAY PRN (Reason: pain) Qty: 30 0RF Rx Instructions: leave on most painful area for up to 12 hrs cyclobenzaprine 5 mg tablet 5 mg PO TID PRN (Reason: muscle spasm) Qty: 15 0RF naproxen 500 mg tablet 500 mg PO BID PRN (Reason: pain) Qty: 14 0RF sulfamethoxazole-trimethoprim [Bactrim DS] 800-160 mg tablet 1 tab PO BID Qty: 14 0RF naproxen 500 mg tablet 500 mg PO BID PRN (Reason: pain) Qty: 30 0RF tamsulosin [Flomax] 0.4 mg capsule 0.4 mg PO QDAY Qty: 30 0RF ibuprofen 600 mg tablet 600 mg PO Q6H PRN (Reason: pain) Qty: 30 0RF methocarbamol 500 mg tablet 1,000 mg PO Q8H PRN (Reason: pain) Qty: 30 0RF naproxen [Naprosyn] 500 mg tablet 500 mg PO BID Qty: 14 0RF ibuprofen 600 mg tablet 600 mg PO Q6H PRN (Reason: fever or pain) Qty: 30 0RF cyclobenzaprine 5 mg tablet 5 mg PO TID PRN (Reason: muscle spasm) Qty: 14 0RF naproxen 500 mg tablet 500 mg PO BID PRN (Reason: pain) Qty: 30 0RF cyclobenzaprine 5 mg tablet 5 mg PO TID PRN (Reason: muscle spasm) Qty: 30 0RF acetaminophen 500 mg capsule 500 mg PO Q6H PRN (Reason: pain) Qty: 30 0RF Referrals: Lavell (PCP)Cody MD [Primary Care Provider] - In 1 week Problem List Clinical Impression: Chronic leg pain Patient/Caregiver Discharge Instructions Education Materials: ED Pain Management: Chronic Additional Instructions: program support assistant your medication from the pharmacy. You have been given multiple prescriptions for your pain which you refused to pick pulling machine operator. Follow-up with your primary care physician in 24 to 48 hours. Print Language: Kinyarwanda Stand Alone Forms: Tami Award Info., Patient Portal Info Letter PA/COMPACT ASSEMBLER Supervising Physician PA/COMPACT ASSEMBLER Supervising Physician: Dr Gallardo
== END 2025-05-05 00:39 | disposition home or self-care (01) ==
PROVIDERS: Emergency Provider Emergency Medicine; PCP Family Medicine
DX: M79.604 Pain in right leg (principal); M79.605 Pain in left leg; G89.29 Other chronic pain
CPT/HCPCS: 99281

== ENCOUNTER 2025-05-05 06:05 | Emergency (ER) | payer MEDICAID, SELFPAY ==
[2025-05-05 06:05] VITALS: BMI 30.5
[2025-05-05 06:21] VITALS: BP 136/94; PULSE 88; RESP 17; TEMP 37; O2SAT 98
--- NOTE | 2025-05-05 10:34 | PC.NURSE ---
PT SEEN RUNNING OUT THE DOOR @ 09:36 AND HE HAS NOT RETURNED. XI.
== END 2025-05-05 10:35 | disposition left against medical advice (07) ==
PROVIDERS: Emergency Provider Family Medicine; PCP Family Medicine
DX: Z53.21 Procedure and treatment not carried out due to patient leaving prior to being seen by health care provider (principal)
CPT/HCPCS: 99281

== ENCOUNTER 2025-05-06 13:37 | Emergency (ER) | payer MEDICAID, SELFPAY ==
[2025-05-06 13:45] VITALS: PULSE 85; O2SAT 98
[2025-05-06 14:03] VITALS: BP 130/75; PULSE 89; RESP 18; TEMP 36.9; O2SAT 99
--- NOTE | 2025-05-06 15:01 | EDNOTE_ITS ---
Lower Extremity Injury RME/HPI General Stated Complaint: LEG PAIN Time Seen by Provider: 05/06/25 13:46 Arrival date/time: 05/06/25 13:37 45-year-old male well-known to me who is homeless and has history of methamphetamine abuse presents emergency department today for complaint of bilateral leg pain really he reports that he is not here for leg pain but rather he is here for food and water. Limitations: no limitations Related Data Previous Rx's ?Medication ?Instructions ?Recorded sulfamethoxazole 800 1 tab PO BID #14 tabs mg-trimethoprim 160 mg tablet (Bactrim DS) cyclobenzaprine 5 mg tablet 5 mg PO TID PRN muscle spa sm #30 07/23/23 tabs naproxen 500 mg tablet 500 mg PO BID PRN pain #30 t abs 07/23/23 naproxen 500 mg tablet 500 mg PO BID PRN pain #30 t abs 08/08/23 tamsulosin 0.4 mg capsule (Flomax) 0.4 mg PO QDAY #30 caps 08/08/23 baclofen 10 mg tablet 10 mg PO BID PRN muscle spas m #30 08/14/23 tabs naproxen 500 mg tablet 500 mg PO BID PRN pain #30 t abs 08/14/23 ibuprofen 800 mg tablet 800 mg PO TID PRN pain #30 t abs 08/28/23 ibuprofen 600 mg tablet 600 mg PO Q6H PRN pain #30 t abs 01/27/24 methocarbamol 500 mg tablet 1,000 mg (2 x 500 mg) PO Q 8H PRN 01/27/24 pain #30 tabs naproxen 500 mg tablet (Naprosyn) 500 mg PO BID #14 ta bs 03/15/24 ibuprofen 800 mg tablet 800 mg PO TID PRN pain #30 t abs 04/02/24 cyclobenzaprine 5 mg tablet 5 mg PO TID PRN muscle spa sm #14 04/07/24 tabs ibuprofen 600 mg tablet 600 mg PO Q6H PRN fever or p ain 04/07/24 #30 tabs ibuprofen 600 mg tablet 600 mg PO Q6H PRN pain #30 t abs 04/07/24 cyclobenzaprine 5 mg tablet 5 mg PO TID PRN muscle spa sm #30 04/11/24 tabs naproxen 500 mg tablet 500 mg PO BID PRN pain #30 t abs 04/11/24 ibuprofen 600 mg tablet 600 mg PO Q8H PRN pain #20 t abs 11/03/24 acetaminophen 500 mg capsule 500 mg PO Q6H PRN pain #3 0 caps 12/03/24 acetaminophen 500 mg capsule 500 mg PO Q6H PRN pain #3 0 caps 12/15/24 cyclobenzaprine 5 mg tablet 5 mg PO TID PRN muscle spa sm #15 12/20/24 tabs lidocaine 5 % topical patch 2 patch topical QDAY PRN p ain #30 12/20/24 (Lidoderm) ea naproxen 500 mg tablet 500 mg PO BID PRN pain #14 t abs 04/04/25 Allergies Allergy/AdvReac Type Severity Reaction Status Date / Time No Known Allergies Allergy Verified 05/06/25 13:45 Review of Systems Review of Systems Systems Reviewed: All systems reviewed, normal except as documented Constitutional Constitutional: Reports system reviewed and no additional complaints, except as documented, Denies fever(s) and Denies headache(s) Eyes Eyes: Reports system reviewed and no additional complaints, except as documented and Denies blurry vision ENT Ears, Nose, Mouth, and Throat: Reports system reviewed and no additional complaints, except as documented, Denies headache(s), Denies nasal congestion and Denies nasal discharge Cardiovascular Cardiovascular: Reports system reviewed and no additional complaints, except as documented, Denies chest pain and Denies dyspnea Respiratory Respiratory: Reports system reviewed and no additional complaints, except as documented, Denies chest congestion, Denies cough and Denies dyspnea Gastrointestinal Gastrointestinal: Reports system reviewed and no additional complaints, except as documented and Denies abdominal pain Musculoskeletal Musculoskeletal: Reports system reviewed and no additional complaints, except as documented, Reports abnormal gait and Denies deformity Integumentary/Breasts Skin/Breast: Reports system reviewed and no additional complaints, except as documented and Denies rash Neurologic Neurologic: Reports system reviewed and no additional complaints, except as documented, Reports as per HPI, Reports abnormal gait and Denies headache(s) Past Medical History Past Medical History NEUROLOGIC: Positive Cerebrovascular Accident; Negative Neurological Disorders CARDIAC: Positive Myocardial Infarction and Hypercholesterolemia; Negative Cardiac Disorders or Congestive Heart Failure RESPIRATORY: Negative Chronic Obstructive Pulmonary Disease (COPD) GASTROINTESTINAL: Negative Gastrointestinal Disorders GENITOURINARY: Negative Genitourinary Disorders or Renal Disease MUSCULOSKELETAL: Negative Musculoskeletal Disorders ENDOCRINE: Negative Endocrine Disorders, Diabetes Mellitus Type 1 or Diabetes Mellitus Type 2 HEMATOLOGIC: Negative Blood Disorders OTHER HISTORY: Negative Autoimmune Disease or Clostridium Difficile Social History SMOKING STATUS: Current every day smoker SUBSTANCE USE: methamphetamine ED Exam General Limitations: Present no limitations General appearance: Present alert and in no apparent distress Head Head exam: Present atraumatic, normocephalic and normal inspection Eye Eye exam: Present normal appearance, PERRL and EOMI; Absent conjunctival injection ENT ENT exam: Present normal exam, normal oropharynx and mucous membranes moist Neck Neck exam: Present normal inspection, full ROM and trachea midline Chest Chest inspection: Present normal inspection and symmetric chest wall rise Respiratory Respiratory exam: Present normal lung sounds bilaterally; Absent respiratory distress Cardiovascular Cardiovascular exam: Present regular rate, normal rhythm and normal heart sounds Abdominal Exam Abdominal exam: Present soft and normal bowel sounds; Absent distention, tenderness, guarding, rebound or rigidity Extremities Exam Extremities exam: Present normal inspection and full ROM Back Exam Back exam: Present normal inspection and full ROM Neurological Exam Neurological exam: Present alert, oriented X3, CN II-XII intact, normal gait and reflexes normal; Absent motor sensory deficit Psychiatric Psychiatric exam: Present normal affect and normal mood Skin Skin exam: Present warm and dry; Absent rash Course Quality Measures none Vital Signs Vital signs: Vital Signs Temperature 98.5 F 05/06/25 14:03 Pulse Rate 89 05/06/25 14:03 Respiratory Rate 18 05/06/25 14:03 Blood Pressure 130/75 05/06/25 14:03 Pulse Oximetry (%) 99 05/06/25 14:03 Oxygen Delivery Method Room Air 05/06/25 14:03 O2 saturation 99% on room air within the limits Extremity Injury, Lower MDM Narrative MDM Narrative:: 45-year-old male well-known to me who is homeless and has history of methamphetamine abuse presents emergency department today for complaint of bilateral leg pain really he reports that he is not here for leg pain but rather he is here for food and water. Patient was given nourishment here On exam patient is well-appearing patient walks without difficulty with his normal gait Patient discharged home in no distress to follow-up with primary care doctor in the next 24 to 48 hours and for any worsening symptoms to return to the ER immediately Patient data External records reviewed:: [facility] previous records Clinical information provided by:: patient Social determinants that could affect healthcare access:: substance use Patient has the following chronic illnesses:: See history How is presenting disease/condition affected by chronic disease/condition?: no chronic disease Evaluation data The following diagnostics were reviewed and interpreted by me:: other (specify) (N/A) Lab and/or radiology exams considered but not ordered:: Consider not ordered Interpretation Summary: N/A Medications / Prescriptions Medications or Prescriptions considered but not ordered:: Given Medication administrations:: Given Consultations Consultation(s) initiated? (list below): No Diagnosis Extremity Injury, Lower Differential Diagnosis: acute internal derangement of knee and other (leg pain) Most likely diagnosis given after review of the tests above:: Bilateral leg pain Admission Indicated Admission indicated?: not indicated Admission Request Was there a request for admission?: No Disposition Plan Disposition Plan: Discharge Discharge Attestation Discharge Attestation: The patient and all family members were given an opportunity to ask questions and understood the discharge instructions. Discharge instructions specifically effects, indications for sooner follow up or return to the emergency department, and the expected course of current diagnosis. Patient condition: Stable Discharge Plan Plan Patient Disposition: HOME (Self Care) Discharge Disposition comment: Stable Prescriptions/Referrals Prescriptions/Med Rec: No Action naproxen 500 mg tablet 500 mg PO BID PRN (Reason: pain) Qty: 30 0RF cyclobenzaprine 5 mg tablet 5 mg PO TID PRN (Reason: muscle spasm) Qty: 30 0RF naproxen 500 mg tablet 500 mg PO BID PRN (Reason: pain) Qty: 30 0RF baclofen 10 mg tablet 10 mg PO BID PRN (Reason: muscle spasm) Qty: 30 0RF ibuprofen 800 mg tablet 800 mg PO TID PRN (Reason: pain) Qty: 30 0RF ibuprofen 800 mg tablet 800 mg PO TID PRN (Reason: pain) Qty: 30 0RF ibuprofen 600 mg tablet 600 mg PO Q6H PRN (Reason: pain) Qty: 30 0RF ibuprofen 600 mg tablet 600 mg PO Q8H PRN (Reason: pain) Qty: 20 0RF acetaminophen 500 mg capsule 500 mg PO Q6H PRN (Reason: pain) Qty: 30 0RF lidocaine [Lidoderm] 5 % adhesive patch,medicated 2 patch topical QDAY PRN (Reason: pain) Qty: 30 0RF Rx Instructions: leave on most painful area for up to 12 hrs cyclobenzaprine 5 mg tablet 5 mg PO TID PRN (Reason: muscle spasm) Qty: 15 0RF naproxen 500 mg tablet 500 mg PO BID PRN (Reason: pain) Qty: 14 0RF sulfamethoxazole-trimethoprim [Bactrim DS] 800-160 mg tablet 1 tab PO BID Qty: 14 0RF naproxen 500 mg tablet 500 mg PO BID PRN (Reason: pain) Qty: 30 0RF tamsulosin [Flomax] 0.4 mg capsule 0.4 mg PO QDAY Qty: 30 0RF ibuprofen 600 mg tablet 600 mg PO Q6H PRN (Reason: pain) Qty: 30 0RF methocarbamol 500 mg tablet 1,000 mg PO Q8H PRN (Reason: pain) Qty: 30 0RF naproxen [Naprosyn] 500 mg tablet 500 mg PO BID Qty: 14 0RF ibuprofen 600 mg tablet 600 mg PO Q6H PRN (Reason: fever or pain) Qty: 30 0RF cyclobenzaprine 5 mg tablet 5 mg PO TID PRN (Reason: muscle spasm) Qty: 14 0RF naproxen 500 mg tablet 500 mg PO BID PRN (Reason: pain) Qty: 30 0RF cyclobenzaprine 5 mg tablet 5 mg PO TID PRN (Reason: muscle spasm) Qty: 30 0RF acetaminophen 500 mg capsule 500 mg PO Q6H PRN (Reason: pain) Qty: 30 0RF Referrals: No Primary/Family,Physician [Primary Care Provider] - In 1 week Problem List Clinical Impression: Chronic leg pain, Homelessness Patient/Caregiver Discharge Instructions Education Materials: RICE Additional Instructions: Please follow up with your primary care doctor in the next 24-48hrs for any w orsening symptoms return here immediately Print Language: Martiniquais Stand Alone Forms: Tami Award Info., Patient Portal Info Letter PA/COYOTE HUNTER Supervising Physician PA/COYOTE HUNTER Supervising Physician: Dr. sotomayor
[2025-05-06 17:58] VITALS: BP 132/72; PULSE 88; RESP 18; TEMP 36.6; O2SAT 97
== END 2025-05-06 17:58 | disposition home or self-care (01) ==
PROVIDERS: Emergency Provider Family Medicine
DX: G89.29 Other chronic pain (principal); M79.605 Pain in left leg; M79.604 Pain in right leg; Z59.00 Homelessness unspecified
CPT/HCPCS: 99281

== ENCOUNTER 2025-05-06 19:12 | Emergency (ER) | payer MEDICAID, SELFPAY ==
--- NOTE | 2025-05-06 22:31 | PC.NURSE ---
SECURITY INFORMED ME THAT PT LEFT ER.
== END 2025-05-06 22:32 | disposition left against medical advice (07) ==
LOC: SERX 19:48
PROVIDERS: Emergency Provider Emergency Medicine; PCP Family Medicine
DX: Z53.21 Procedure and treatment not carried out due to patient leaving prior to being seen by health care provider (principal)

== ENCOUNTER 2025-05-07 06:43 | Emergency (ER) | payer MEDICAID, SELFPAY ==
--- NOTE | 2025-05-07 06:53 | PD.EDADULT ---
ED General RME/HPI General Chief complaint: General Adult/Misc Complain Stated complaint: LEG PAIN Time Seen by Provider: 05/07/25 06:44 Arrival date/time: 05/07/25 06:43 45-year-old male well-known to me who is homeless and has history of methamphetamine abuse presents emergency department today for complaint of bilateral leg pain really he reports that he is not here for leg pain but rather he is here for food and water. Limitations: no limitations Related Data Previous Rx's ?Medication ?Instructions ?Recorded sulfamethoxazole 800 1 tab PO BID #14 tabs 03/09/23 mg-trimethoprim 160 mg tablet (Bactrim DS) cyclobenzaprine 5 mg tablet 5 mg PO TID PRN muscle spasm #30 07/23/23 tabs naproxen 500 mg tablet 500 mg PO BID PRN pain #30 tabs 07/23/23 naproxen 500 mg tablet 500 mg PO BID PRN pain #30 tabs 08/08/23 tamsulosin 0.4 mg capsule (Flomax) 0.4 mg PO QDAY #30 caps 08/08/23 baclofen 10 mg tablet 10 mg PO BID PRN muscle spasm #30 08/14/23 tabs naproxen 500 mg tablet 500 mg PO BID PRN pain #30 tabs 08/14/23 ibuprofen 800 mg tablet 800 mg PO TID PRN pain #30 tabs 08/28/23 ibuprofen 600 mg tablet 600 mg PO Q6H PRN pain #30 tabs 01/27/24 methocarbamol 500 mg tablet 1,000 mg (2 x 500 mg) PO Q8H PRN 01/27/24 pain #30 tabs naproxen 500 mg tablet (Naprosyn) 500 mg PO BID #14 tabs 03/15/24 ibuprofen 800 mg tablet 800 mg PO TID PRN pain #30 tabs 04/02/24 cyclobenzaprine 5 mg tablet 5 mg PO TID PRN muscle spasm #14 04/07/24 tabs ibuprofen 600 mg tablet 600 mg PO Q6H PRN fever or pain 04/07/24 #30 tabs ibuprofen 600 mg tablet 600 mg PO Q6H PRN pain #30 tabs 04/07/24 cyclobenzaprine 5 mg tablet 5 mg PO TID PRN muscle spasm #30 04/11/24 tabs naproxen 500 mg tablet 500 mg PO BID PRN pain #30 tabs 04/11/24 ibuprofen 600 mg tablet 600 mg PO Q8H PRN pain #20 tabs 11/03/24 acetaminophen 500 mg capsule 500 mg PO Q6H PRN pain #30 caps 12/03/24 acetaminophen 500 mg capsule 500 mg PO Q6H PRN pain #30 caps 12/15/24 cyclobenzaprine 5 mg tablet 5 mg PO TID PRN muscle spasm #15 12/20/24 tabs lidocaine 5 % topical patch 2 patch topical QDAY PRN pain #30 12/20/24 (Lidoderm) ea naproxen 500 mg tablet 500 mg PO BID PRN pain #14 tabs 04/04/25 Allergies Allergy/AdvReac Type Severity Reaction Status Date / Time No Known Allergies Allergy Verified 05/06/25 13:45 Review of Systems Review of Systems Systems Reviewed: All systems reviewed, normal except as documented Constitutional Constitutional: Reports system reviewed and no additional complaints, except as documented, Denies fever(s) and Denies headache(s) Eyes Eyes: Reports system reviewed and no additional complaints, except as documented and Denies blurry vision ENT Ears, Nose, Mouth, and Throat: Reports system reviewed and no additional complaints, except as documented, Denies headache(s), Denies nasal congestion, Denies nasal discharge and Denies neck pain Cardiovascular Cardiovascular: Reports system reviewed and no additional complaints, except as documented, Denies chest pain and Denies dyspnea Respiratory Respiratory: Reports system reviewed and no additional complaints, except as documented, Denies chest congestion, Denies cough and Denies dyspnea Gastrointestinal Gastrointestinal: Reports system reviewed and no additional complaints, except as documented and Denies abdominal pain Musculoskeletal Musculoskeletal: Reports system reviewed and no additional complaints, except as documented, Denies abnormal gait, Denies arthralgias, Denies neck pain, Denies numbness, Reports stiffness and Denies tingling Integumentary/Breasts Skin/Breast: Reports system reviewed and no additional complaints, except as documented and Denies rash Neurologic Neurologic: Reports system reviewed and no additional complaints, except as documented, Reports as per HPI, Denies abnormal gait, Denies headache(s), Denies numbness and Denies tingling Past Medical History Past Medical History NEUROLOGIC: Positive Cerebrovascular Accident; Negative Neurological Disorders CARDIAC: Positive Myocardial Infarction and Hypercholesterolemia; Negative Cardiac Disorders or Congestive Heart Failure RESPIRATORY: Negative Chronic Obstructive Pulmonary Disease (COPD) GASTROINTESTINAL: Negative Gastrointestinal Disorders GENITOURINARY: Negative Genitourinary Disorders or Renal Disease MUSCULOSKELETAL: Negative Musculoskeletal Disorders ENDOCRINE: Negative Endocrine Disorders, Diabetes Mellitus Type 1 or Diabetes Mellitus Type 2 HEMATOLOGIC: Negative Blood Disorders OTHER HISTORY: Negative Autoimmune Disease or Clostridium Difficile Social History SMOKING STATUS: Current every day smoker SUBSTANCE USE: methamphetamine ED Exam General Limitations: Present no limitations General appearance: Present alert and in no apparent distress Head Head exam: Present atraumatic, normocephalic and normal inspection Eye Eye exam: Present normal appearance, PERRL and EOMI; Absent conjunctival injection ENT ENT exam: Present normal exam, normal oropharynx and mucous membranes moist Neck Neck exam: Present normal inspection, full ROM and trachea midline Chest Chest inspection: Present normal inspection and symmetric chest wall rise Respiratory Respiratory exam: Present normal lung sounds bilaterally Cardiovascular Cardiovascular exam: Present regular rate, normal rhythm and normal heart sounds Abdominal Exam Abdominal exam: Present soft and normal bowel sounds Extremities Exam Extremities exam: Present full ROM, tenderness and normal capillary refill; Absent pedal edema, joint swelling or calf tenderness Back Exam Back exam: Present normal inspection and full ROM Neurological Exam Neurological exam: Present alert, oriented X3 and CN II-XII intact Psychiatric Psychiatric exam: Present normal affect and normal mood Skin Skin exam: Present warm, dry, intact and normal color Course Quality Measures none Vital Signs Vital signs: Vital Signs Temperature 97.9 F 05/07/25 07:08 Pulse Rate 58 L 05/07/25 07:08 Respiratory Rate 16 05/07/25 07:08 Blood Pressure 106/73 05/07/25 07:08 Pulse Oximetry (%) 98 05/07/25 07:08 Oxygen Delivery Method Room Air 05/07/25 07:08 O2 saturation 98% room air with normal limits Discharge Plan Plan Patient Disposition: HOME (Self Care) Discharge Disposition comment: Stable Prescriptions/Referrals Prescriptions/Med Rec: No Action naproxen 500 mg tablet 500 mg PO BID PRN (Reason: pain) Qty: 30 0RF cyclobenzaprine 5 mg tablet 5 mg PO TID PRN (Reason: muscle spasm) Qty: 30 0RF naproxen 500 mg tablet 500 mg PO BID PRN (Reason: pain) Qty: 30 0RF baclofen 10 mg tablet 10 mg PO BID PRN (Reason: muscle spasm) Qty: 30 0RF ibuprofen 800 mg tablet 800 mg PO TID PRN (Reason: pain) Qty: 30 0RF ibuprofen 800 mg tablet 800 mg PO TID PRN (Reason: pain) Qty: 30 0RF ibuprofen 600 mg tablet 600 mg PO Q6H PRN (Reason: pain) Qty: 30 0RF ibuprofen 600 mg tablet 600 mg PO Q8H PRN (Reason: pain) Qty: 20 0RF acetaminophen 500 mg capsule 500 mg PO Q6H PRN (Reason: pain) Qty: 30 0RF lidocaine [Lidoderm] 5 % adhesive patch,medicated 2 patch topical QDAY PRN (Reason: pain) Qty: 30 0RF Rx Instructions: leave on most painful area for up to 12 hrs cyclobenzaprine 5 mg tablet 5 mg PO TID PRN (Reason: muscle spasm) Qty: 15 0RF naproxen 500 mg tablet 500 mg PO BID PRN (Reason: pain) Qty: 14 0RF sulfamethoxazole-trimethoprim [Bactrim DS] 800-160 mg tablet 1 tab PO BID Qty: 14 0RF naproxen 500 mg tablet 500 mg PO BID PRN (Reason: pain) Qty: 30 0RF tamsulosin [Flomax] 0.4 mg capsule 0.4 mg PO QDAY Qty: 30 0RF ibuprofen 600 mg tablet 600 mg PO Q6H PRN (Reason: pain) Qty: 30 0RF methocarbamol 500 mg tablet 1,000 mg PO Q8H PRN (Reason: pain) Qty: 30 0RF naproxen [Naprosyn] 500 mg tablet 500 mg PO BID Qty: 14 0RF ibuprofen 600 mg tablet 600 mg PO Q6H PRN (Reason: fever or pain) Qty: 30 0RF cyclobenzaprine 5 mg tablet 5 mg PO TID PRN (Reason: muscle spasm) Qty: 14 0RF naproxen 500 mg tablet 500 mg PO BID PRN (Reason: pain) Qty: 30 0RF cyclobenzaprine 5 mg tablet 5 mg PO TID PRN (Reason: muscle spasm) Qty: 30 0RF acetaminophen 500 mg capsule 500 mg PO Q6H PRN (Reason: pain) Qty: 30 0RF Referrals: Leonardo Haro MD [Primary Care Provider] - In 1 week Problem List Clinical Impression: Chronic leg pain, Homelessness Patient/Caregiver Discharge Instructions Education Materials: ED Chronic Pain Additional Instructions: Please follow up with your primary care doctor in the next 24-48hrs for any worsening symptoms return here immediately Print Language: Romansh Stand Alone Forms: Tami Award Info., Patient Portal Info Letter PA/RETAIL STORE MANAGER Supervising Physician PA/RETAIL STORE MANAGER Supervising Physician: Dr. zimmerman MDM Narrative MDM hospital course: 45-year-old male well-known to me who is homeless and has history of methamphetamine abuse presents emergency department today for complaint of bilateral leg pain really he reports that he is not here for leg pain but rather he is here for food and water. Patient was given nourishment here On exam patient is well-appearing patient walks without difficulty with his normal gait Patient discharged home in no distress to follow-up with primary care doctor in the next 24 to 48 hours and for any worsening symptoms to return to the ER immediately Clinical Information Provided by patient Medical Records Reviewed [facility] Meds/Rx Considered, not Ordered None Labs/Rad/Tests considered, not Ordered None Chronic Illness/Social Conditions which may negatively complicate care or outcome(s)-explain: Homeless, Mental health and ETOH/drugs/substance abuse EKG EKG not done Lab Interpretation Labs: none Imaging Imaging interpretation: none Medication Administration(s) none No meds Diagnosis Differential dx and/or dx ruled out: Chronic pain, leg pain Most likely dx, and/or detailed dx discussion: Leg pain Dispositon Disposition: Discharge Home
[2025-05-07 07:08] VITALS: BP 106/73; PULSE 58; RESP 16; TEMP 36.6; O2SAT 98; BMI 29.7
== END 2025-05-07 07:43 | disposition home or self-care (01) ==
PROVIDERS: Emergency Provider Emergency Medicine; PCP Family Medicine
DX: M79.604 Pain in right leg (principal); M79.605 Pain in left leg; G89.29 Other chronic pain; Z59.00 Homelessness unspecified
CPT/HCPCS: 99281

== ENCOUNTER 2025-05-07 10:50 | Emergency (ER) | payer MEDICAID, SELFPAY ==
[2025-05-07 10:51] VITALS: BP 125/79; PULSE 80; RESP 18; TEMP 36.6; O2SAT 97
[2025-05-07 10:53] VITALS: BMI 25.0
[2025-05-07 12:36] VITALS: BP 197/71; PULSE 59; RESP 19; TEMP 36.4; O2SAT 98
--- NOTE | 2025-05-07 12:41 | EDNOTE_ITS ---
ED Extremity Problem RME/HPI General Chief complaint: Extremity Problem,Nontraumatic Stated complaint: LEG PAIN Time Seen by Provider: 05/07/25 10:57 Arrival date/time: 05/07/25 10:50 45-year-old male well-known to me who is homeless and has history of methamphetamine abuse presents emergency department today for complaint of bilateral leg pain really he reports that he is not here for leg pain but rather he is here for food and water. Limitations: no limitations Related Data Previous Rx's ?Medication ?Instructions ?Recorded sulfamethoxazole 800 1 tab PO BID #14 tabs mg-trimethoprim 160 mg tablet (Bactrim DS) cyclobenzaprine 5 mg tablet 5 mg PO TID PRN muscle spa sm #30 07/23/23 tabs naproxen 500 mg tablet 500 mg PO BID PRN pain #30 t abs 07/23/23 naproxen 500 mg tablet 500 mg PO BID PRN pain #30 t abs 08/08/23 tamsulosin 0.4 mg capsule (Flomax) 0.4 mg PO QDAY #30 caps 08/08/23 baclofen 10 mg tablet 10 mg PO BID PRN muscle spas m #30 08/14/23 tabs naproxen 500 mg tablet 500 mg PO BID PRN pain #30 t abs 08/14/23 ibuprofen 800 mg tablet 800 mg PO TID PRN pain #30 t abs 08/28/23 ibuprofen 600 mg tablet 600 mg PO Q6H PRN pain #30 t abs 01/27/24 methocarbamol 500 mg tablet 1,000 mg (2 x 500 mg) PO Q 8H PRN 01/27/24 pain #30 tabs naproxen 500 mg tablet (Naprosyn) 500 mg PO BID #14 ta bs 03/15/24 ibuprofen 800 mg tablet 800 mg PO TID PRN pain #30 t abs 04/02/24 cyclobenzaprine 5 mg tablet 5 mg PO TID PRN muscle spa sm #14 04/07/24 tabs ibuprofen 600 mg tablet 600 mg PO Q6H PRN fever or p ain 04/07/24 #30 tabs ibuprofen 600 mg tablet 600 mg PO Q6H PRN pain #30 t abs 04/07/24 cyclobenzaprine 5 mg tablet 5 mg PO TID PRN muscle spa sm #30 04/11/24 tabs naproxen 500 mg tablet 500 mg PO BID PRN pain #30 t abs 04/11/24 ibuprofen 600 mg tablet 600 mg PO Q8H PRN pain #20 t abs 11/03/24 acetaminophen 500 mg capsule 500 mg PO Q6H PRN pain #3 0 caps 12/03/24 acetaminophen 500 mg capsule 500 mg PO Q6H PRN pain #3 0 caps 12/15/24 cyclobenzaprine 5 mg tablet 5 mg PO TID PRN muscle spa sm #15 12/20/24 tabs lidocaine 5 % topical patch 2 patch topical QDAY PRN p ain #30 12/20/24 (Lidoderm) ea naproxen 500 mg tablet 500 mg PO BID PRN pain #14 t abs 04/04/25 Allergies Allergy/AdvReac Type Severity Reaction Status Date / Time No Known Allergies Allergy Verified 05/07/25 10:55 Review of Systems Review of Systems Systems Reviewed: All systems reviewed, normal except as documented Constitutional Constitutional: Reports system reviewed and no additional complaints, except as documented, Denies fever(s) and Denies headache(s) Eyes Eyes: Reports system reviewed and no additional complaints, except as documented and Denies blurry vision ENT Ears, Nose, Mouth, and Throat: Reports system reviewed and no additional complaints, except as documented, Denies headache(s), Denies nasal congestion and Denies nasal discharge Cardiovascular Cardiovascular: Reports system reviewed and no additional complaints, except as documented, Denies chest pain and Denies dyspnea Respiratory Respiratory: Reports system reviewed and no additional complaints, except as documented, Denies chest congestion, Denies cough and Denies dyspnea Gastrointestinal Gastrointestinal: Reports system reviewed and no additional complaints, except as documented and Denies abdominal pain Musculoskeletal Musculoskeletal: Reports system reviewed and no additional complaints, except as documented, Denies arthralgias, Denies deformity, Denies numbness, Denies stiff ness, Denies tingling and Reports other (Bilateral leg pain) Integumentary/Breasts Skin/Breast: Reports system reviewed and no additional complaints, except as documented and Denies rash Neurologic Neurologic: Reports system reviewed and no additional complaints, except as documented, Reports as per HPI, Denies headache(s), Denies numbness and Denies tingling Past Medical History Past Medical History NEUROLOGIC: Positive Cerebrovascular Accident; Negative Neurological Disorders CARDIAC: Positive Myocardial Infarction and Hypercholesterolemia; Negative Cardiac Disorders or Congestive Heart Failure RESPIRATORY: Negative Chronic Obstructive Pulmonary Disease (COPD) GASTROINTESTINAL: Negative Gastrointestinal Disorders GENITOURINARY: Negative Genitourinary Disorders or Renal Disease MUSCULOSKELETAL: Negative Musculoskeletal Disorders ENDOCRINE: Negative Endocrine Disorders, Diabetes Mellitus Type 1 or Diabetes Mellitus Type 2 HEMATOLOGIC: Negative Blood Disorders OTHER HISTORY: Negative Autoimmune Disease or Clostridium Difficile Social History SMOKING STATUS: Current every day smoker SUBSTANCE USE: methamphetamine ED Exam General Limitations: Present no limitations General appearance: Present alert and in no apparent distress Head Head exam: Present atraumatic Eye Eye exam: Present normal appearance, PERRL and EOMI ENT ENT exam: Present normal exam, normal oropharynx and mucous membranes moist Neck Neck exam: Present normal inspection, full ROM and trachea midline Chest Chest inspection: Present normal inspection and symmetric chest wall rise Respiratory Respiratory exam: Present normal lung sounds bilaterally Cardiovascular Cardiovascular exam: Present regular rate, normal rhythm and normal heart sounds Abdominal Exam Abdominal exam: Present soft and normal bowel sounds Extremities Exam Extremities exam: Present normal inspection, full ROM and tenderness (Bilateral leg pain) Back Exam Back exam: Present normal inspection and full ROM Neurological Exam Neurological exam: Present alert, oriented X3, CN II-XII intact, normal gait and reflexes normal; Absent motor sensory deficit Psychiatric Psychiatric exam: Present normal affect and normal mood Skin Skin exam: Present warm, dry, intact and normal color Course Quality Measures none Vital Signs Vital signs: Vital Signs Temperature 98 F 05/07/25 10:51 Pulse Rate 80 05/07/25 10:51 Respiratory Rate 18 05/07/25 10:51 Blood Pressure 125/79 05/07/25 10:51 Pulse Oximetry (%) 97 05/07/25 10:51 Oxygen Delivery Method Room Air 05/07/25 10:51 O2 saturation 97% room air with normal limits Extremity Problem MDM Narrative MDM Narrative:: 45-year-old male well-known to me who is homeless and has history of methamphetamine abuse presents emergency department today for complaint of bilateral leg pain really he reports that he is not here for leg pain but rather he is here for food and water. This is the second time I Seen this patient today patient comes multiple times a day multiple times a month Patient was given nourishment here On exam patient is well-appearing patient walks without difficulty with his normal gait Patient discharged home in no distress to follow-up with primary care doctor in the next 24 to 48 hours and for any worsening symptoms to return to the ER immediately Patient data External records reviewed:: [facility] previous records Clinical information provided by:: patient Social determinants that could affect healthcare access:: none Patient has the following chronic illnesses:: None How is presenting disease/condition affected by chronic disease/condition?: no chronic disease Evaluation data The following diagnostics were reviewed and interpreted by me:: other (specify) Lab and/or radiology exams considered but not ordered:: Consider not ordered Interpretation Summary: N/A Medications / Prescriptions Medications or Prescriptions considered but not ordered:: Given Medication administrations:: Given Consultations Consultation(s) initiated? (list below): No Diagnosis Extremity Problem Differential Diagnosis: other Most likely diagnosis given after review of the tests above:: Right pain, assess Admission Indicated Admission indicated?: not indicated Admission Request Was there a request for admission?: No Disposition Plan Disposition Plan: Discharge Discharge Attestation Discharge Attestation: The patient and all family members were given an opportunity to ask questions and understood the discharge instructions. Discharge instructions specifically effects, indications for sooner follow up or return to the emergency department, and the expected course of current diagnosis. Patient condition: Stable Discharge Plan Plan Patient Disposition: HOME (Self Care) Discharge Disposition comment: stable Prescriptions/Referrals Prescriptions/Med Rec: No Action naproxen 500 mg tablet 500 mg PO BID PRN (Reason: pain) Qty: 30 0RF cyclobenzaprine 5 mg tablet 5 mg PO TID PRN (Reason: muscle spasm) Qty: 30 0RF naproxen 500 mg tablet 500 mg PO BID PRN (Reason: pain) Qty: 30 0RF baclofen 10 mg tablet 10 mg PO BID PRN (Reason: muscle spasm) Qty: 30 0RF ibuprofen 800 mg tablet 800 mg PO TID PRN (Reason: pain) Qty: 30 0RF ibuprofen 800 mg tablet 800 mg PO TID PRN (Reason: pain) Qty: 30 0RF ibuprofen 600 mg tablet 600 mg PO Q6H PRN (Reason: pain) Qty: 30 0RF ibuprofen 600 mg tablet 600 mg PO Q8H PRN (Reason: pain) Qty: 20 0RF acetaminophen 500 mg capsule 500 mg PO Q6H PRN (Reason: pain) Qty: 30 0RF lidocaine [Lidoderm] 5 % adhesive patch,medicated 2 patch topical QDAY PRN (Reason: pain) Qty: 30 0RF Rx Instructions: leave on most painful area for up to 12 hrs cyclobenzaprine 5 mg tablet 5 mg PO TID PRN (Reason: muscle spasm) Qty: 15 0RF naproxen 500 mg tablet 500 mg PO BID PRN (Reason: pain) Qty: 14 0RF sulfamethoxazole-trimethoprim [Bactrim DS] 800-160 mg tablet 1 tab PO BID Qty: 14 0RF naproxen 500 mg tablet 500 mg PO BID PRN (Reason: pain) Qty: 30 0RF tamsulosin [Flomax] 0.4 mg capsule 0.4 mg PO QDAY Qty: 30 0RF ibuprofen 600 mg tablet 600 mg PO Q6H PRN (Reason: pain) Qty: 30 0RF methocarbamol 500 mg tablet 1,000 mg PO Q8H PRN (Reason: pain) Qty: 30 0RF naproxen [Naprosyn] 500 mg tablet 500 mg PO BID Qty: 14 0RF ibuprofen 600 mg tablet 600 mg PO Q6H PRN (Reason: fever or pain) Qty: 30 0RF cyclobenzaprine 5 mg tablet 5 mg PO TID PRN (Reason: muscle spasm) Qty: 14 0RF naproxen 500 mg tablet 500 mg PO BID PRN (Reason: pain) Qty: 30 0RF cyclobenzaprine 5 mg tablet 5 mg PO TID PRN (Reason: muscle spasm) Qty: 30 0RF acetaminophen 500 mg capsule 500 mg PO Q6H PRN (Reason: pain) Qty: 30 0RF Referrals: Lavell (PCP),MD Cody [Primary Care Provider] - In 1 week Problem List Clinical Impression: Chronic leg pain, Homelessness Patient/Caregiver Discharge Instructions Education Materials: ED Chronic Pain Additional Instructions: Please follow up with your primary care doctor in the next 24-48hrs for any worsening symptoms return here immediately Print Language: Bulgarian Stand Alone Forms: Tami Award Info., Patient Portal Info Letter PA/TRACK TEMPLATE MAKER Supervising Physician PA/TRACK TEMPLATE MAKER Supervising Physician: Dr. zimmerman
== END 2025-05-07 12:41 | disposition home or self-care (01) ==
PROVIDERS: Emergency Provider Emergency Medicine; PCP Family Medicine
DX: M79.604 Pain in right leg (principal); M79.605 Pain in left leg; G89.29 Other chronic pain; Z59.00 Homelessness unspecified
CPT/HCPCS: 99281

== ENCOUNTER 2025-05-07 19:51 | Emergency (ER) | payer MEDICAID, SELFPAY ==
[2025-05-07 19:51] VITALS: BP 107/72; PULSE 102; PULSE 77; RESP 19; RESP 20; TEMP 36.8; O2SAT 96; O2SAT 97; BMI 30.5
--- NOTE | 2025-05-07 21:53 | EDNOTE_ITS ---
ED Extremity Problem RME/HPI General Chief complaint: Extremity Problem,Nontraumatic Stated complaint: BLE PAIN Time Seen by Provider: 05/07/25 20:15 Arrival date/time: 05/07/25 19:51 RME / HPI RME / HPI Narrative: 45-year-old male patient came in for evaluation regarding bilateral lower leg pain. Patient has been having chronic leg pain for several months been coming to the emergency room for the same complaints said several times a day. Denies any other complaints patient is ambulatory. Patient is homeless Related Data Previous Rx's ?Medication ?Instructions ?Recorded sulfamethoxazole 800 1 tab PO BID #14 tabs mg-trimethoprim 160 mg tablet (Bactrim DS) cyclobenzaprine 5 mg tablet 5 mg PO TID PRN muscle spa sm #30 07/23/23 tabs naproxen 500 mg tablet 500 mg PO BID PRN pain #30 t abs 07/23/23 naproxen 500 mg tablet 500 mg PO BID PRN pain #30 t abs 08/08/23 tamsulosin 0.4 mg capsule (Flomax) 0.4 mg PO QDAY #30 caps 08/08/23 baclofen 10 mg tablet 10 mg PO BID PRN muscle spas m #30 08/14/23 tabs naproxen 500 mg tablet 500 mg PO BID PRN pain #30 t abs 08/14/23 ibuprofen 800 mg tablet 800 mg PO TID PRN pain #30 t abs 08/28/23 ibuprofen 600 mg tablet 600 mg PO Q6H PRN pain #30 t abs 01/27/24 methocarbamol 500 mg tablet 1,000 mg (2 x 500 mg) PO Q 8H PRN 01/27/24 pain #30 tabs naproxen 500 mg tablet (Naprosyn) 500 mg PO BID #14 ta bs 03/15/24 ibuprofen 800 mg tablet 800 mg PO TID PRN pain #30 t abs 04/02/24 cyclobenzaprine 5 mg tablet 5 mg PO TID PRN muscle spa sm #14 04/07/24 tabs ibuprofen 600 mg tablet 600 mg PO Q6H PRN fever or p ain 04/07/24 #30 tabs ibuprofen 600 mg tablet 600 mg PO Q6H PRN pain #30 t abs 04/07/24 cyclobenzaprine 5 mg tablet 5 mg PO TID PRN muscle spa sm #30 04/11/24 tabs naproxen 500 mg tablet 500 mg PO BID PRN pain #30 t abs 04/11/24 ibuprofen 600 mg tablet 600 mg PO Q8H PRN pain #20 t abs 11/03/24 acetaminophen 500 mg capsule 500 mg PO Q6H PRN pain #3 0 caps 12/03/24 acetaminophen 500 mg capsule 500 mg PO Q6H PRN pain #3 0 caps 12/15/24 cyclobenzaprine 5 mg tablet 5 mg PO TID PRN muscle spa sm #15 12/20/24 tabs lidocaine 5 % topical patch 2 patch topical QDAY PRN p ain #30 12/20/24 (Lidoderm) ea naproxen 500 mg tablet 500 mg PO BID PRN pain #14 t abs 04/04/25 Allergies Allergy/AdvReac Type Severity Reaction Status Date / Time No Known Allergies Allergy Verified 05/07/25 19:51 Review of Systems Review of Systems Narrative Review of Systems: Review of system reviewed and within normal limits except mentioned in HPI ED Exam Narrative Physical exam: VITAL SIGNS: Reviewed. GENERAL APPEARANCE: Alert and interactive, follows commands, no acute distress, HEAD AND FACE: Non-traumatic. ENT: PERRL, pink conjunctivitis, eyelid no trauma, Mucous membrane moist. NECK: Supple, nontender, no nuchal rigidity. CHEST: No tenderness, no crepitus, no paradoxical movement, no retractions. LUNGS: Clear, well ventilated, symmetric, no rales, no wheezing, no ronchi, no stridor, good breath sounds bilaterally. HEART: Regular rate, regular rhythm, no murmur, no gallops. ABDOMEN: Soft, positive bowel sounds, nondistended, no guarding, nontender, no rebound, no masses, RECTAL: Deferred. GENITAL: Deferred. NEUROLOGICAL: Gross motor function intact sensory function intact, Appropriate for age. MUSCULOSKELETAL: low back nontender, full range of motion. EXTREMITIES: Bilateral lower extremity tenderness, no swelling no redness, full range of motion. SKIN: Color pink, dry, no rash, no lacerations, no abrasions, no contusions. LYMPHATICS: Deferred. Course Quality Measures none Orders Category Date Time Status Acetaminophen Tab [Tylenol ES Tab] Med 05/07/25 21:48 Discontinued 1,000 mg PO X1 ONE Vital Signs Vital signs: Vital Signs Temperature 98.2 F 05/07/25 19:51 Pulse Rate 77 05/07/25 19:51 Respiratory Rate 20 05/07/25 19:51 Blood Pressure 107/72 05/07/25 19:51 Pulse Oximetry (%) 97 05/07/25 19:51 Oxygen Delivery Method Room Air 05/07/25 19:51 Extremity Problem MDM Narrative MDM Narrative:: 45-year-old male patient came in for evaluation regarding bilateral lower leg pain. Patient has been having chronic leg pain for several months been coming to the emergency room for the same complaints said several times a day. Denies any other complaints patient is ambulatory. Patient is homeless Patient is coming to the emergency room for the same complaints this been ongoing for several months, almost on a daily basis sometimes several times a day. Patient is ambulatory. Imaging workup as noted at this time Patient data External records reviewed:: None Clinical information provided by:: none Social determinants that could affect healthcare access:: housing Patient has the following chronic illnesses:: Homeless How is presenting disease/condition affected by chronic disease/condition?: no chronic disease Evaluation data The following diagnostics were reviewed and interpreted by me:: other (specify) Lab and/or radiology exams considered but not ordered:: None Interpretation Summary: None Medications / Prescriptions Medications or Prescriptions considered but not ordered:: None Medication administrations:: Medication Administration History Discontinued Medications Acetaminophen (Acetaminophen 500 Mg Tablet) 1,000 mg PO X1 ONE Stop: 05/07/25 21:49 Tylenol Consultations Consultation(s) initiated? (list below): No Diagnosis Extremity Problem Differential Diagnosis: other (Bilateral lower leg chronic pain) Most likely diagnosis given after review of the tests above:: Bilateral lower leg chronic pain, homeless Admission Indicated Admission indicated?: not indicated Admission Request Was there a request for admission?: No Disposition Plan Disposition Plan: Discharge Discharge Attestation Discharge Attestation: Patient condition: Stable Discharge Plan Plan Patient Disposition: HOME (Self Care) Discharge Disposition comment: Stable Prescriptions/Referrals Prescriptions/Med Rec: No Action naproxen 500 mg tablet 500 mg PO BID PRN (Reason: pain) Qty: 30 0RF cyclobenzaprine 5 mg tablet 5 mg PO TID PRN (Reason: muscle spasm) Qty: 30 0RF naproxen 500 mg tablet 500 mg PO BID PRN (Reason: pain) Qty: 30 0RF baclofen 10 mg tablet 10 mg PO BID PRN (Reason: muscle spasm) Qty: 30 0RF ibuprofen 800 mg tablet 800 mg PO TID PRN (Reason: pain) Qty: 30 0RF ibuprofen 800 mg tablet 800 mg PO TID PRN (Reason: pain) Qty: 30 0RF ibuprofen 600 mg tablet 600 mg PO Q6H PRN (Reason: pain) Qty: 30 0RF ibuprofen 600 mg tablet 600 mg PO Q8H PRN (Reason: pain) Qty: 20 0RF acetaminophen 500 mg capsule 500 mg PO Q6H PRN (Reason: pain) Qty: 30 0RF lidocaine [Lidoderm] 5 % adhesive patch,medicated 2 patch topical QDAY PRN (Reason: pain) Qty: 30 0RF Rx Instructions: leave on most painful area for up to 12 hrs cyclobenzaprine 5 mg tablet 5 mg PO TID PRN (Reason: muscle spasm) Qty: 15 0RF naproxen 500 mg tablet 500 mg PO BID PRN (Reason: pain) Qty: 14 0RF sulfamethoxazole-trimethoprim [Bactrim DS] 800-160 mg tablet 1 tab PO BID Qty: 14 0RF naproxen 500 mg tablet 500 mg PO BID PRN (Reason: pain) Qty: 30 0RF tamsulosin [Flomax] 0.4 mg capsule 0.4 mg PO QDAY Qty: 30 0RF ibuprofen 600 mg tablet 600 mg PO Q6H PRN (Reason: pain) Qty: 30 0RF methocarbamol 500 mg tablet 1,000 mg PO Q8H PRN (Reason: pain) Qty: 30 0RF naproxen [Naprosyn] 500 mg tablet 500 mg PO BID Qty: 14 0RF ibuprofen 600 mg tablet 600 mg PO Q6H PRN (Reason: fever or pain) Qty: 30 0RF cyclobenzaprine 5 mg tablet 5 mg PO TID PRN (Reason: muscle spasm) Qty: 14 0RF naproxen 500 mg tablet 500 mg PO BID PRN (Reason: pain) Qty: 30 0RF cyclobenzaprine 5 mg tablet 5 mg PO TID PRN (Reason: muscle spasm) Qty: 30 0RF acetaminophen 500 mg capsule 500 mg PO Q6H PRN (Reason: pain) Qty: 30 0RF Referrals: Lavell (PCP)Cody MD [Primary Care Provider] - In 1 week Problem List Clinical Impression: Chronic leg pain, Homelessness Patient/Caregiver Discharge Instructions Discharge Activity: activity as tolerated Education Materials: ED Chronic Pain Additional Instructions: Thank you for the opportunity for serving you today. You are stable for discharged . You are advised to: Follow-up with your PCP in 1 to 2 days Return to ED for worsening of symptoms Print Language: Thai Stand Alone Forms: Tami Award Info., Patient Portal Info Letter PA/BUYERS' AGENT Supervising Physician PA/DEVYN Supervising Physician: MD Carlos
--- NOTE | 2025-05-07 22:00 | PC.NURSE ---
CALLED PATIENT IN THE LOBBY, RESTROOM, AND OUTSIDE, NO ANSWER RECEIVED.
--- NOTE | 2025-05-07 22:11 | PC.NURSE ---
CALLED PATIENT IN THE LOBBY AND OUTSIDE, NO ANSWER RECEIVED.
--- NOTE | 2025-05-07 22:25 | PC.NURSE ---
NO ANSWER FOR MEDS
== END 2025-05-07 22:26 | disposition left against medical advice (07) ==
PROVIDERS: Emergency Provider Emergency Medicine; PCP Family Medicine
DX: M79.662 Pain in left lower leg (principal); M79.661 Pain in right lower leg; G89.29 Other chronic pain; Z59.00 Homelessness unspecified; Z53.29 Procedure and treatment not carried out because of patient's decision for other reasons
CPT/HCPCS: 99281

== ENCOUNTER 2025-05-08 07:56 | Emergency (ER) | payer MEDICAID, SELFPAY ==
[2025-05-08 08:05] VITALS: PULSE 74; RESP 18; O2SAT 100
[2025-05-08 08:12] VITALS: BP 116/80; PULSE 66; RESP 18; TEMP 36.7; O2SAT 98; BMI 29.7
--- NOTE | 2025-05-08 08:32 | EDNOTE_ITS ---
ED Extremity Problem RME/HPI General Chief complaint: Extremity Problem,Nontraumatic Stated complaint: LEG PAIN Time Seen by Provider: 05/08/25 08:11 Arrival date/time: 05/08/25 07:56 Limitations: no limitations RME / HPI RME / HPI Narrative: 45-year-old male, undomiciled presents for evaluation of chronic bilateral lower extremity pain. Patient denies trauma. Patient has been evaluated for these concerns near daily for the last several weeks. Patient reports he is pending outpatient follow-up with primary care. Denies fever, chills, weakness, nausea, vomiting, chest pain, shortness of breath. Related Data Previous Rx's ?Medication ?Instructions ?Recorded sulfamethoxazole 800 1 tab PO BID #14 tabs mg-trimethoprim 160 mg tablet (Bactrim DS) cyclobenzaprine 5 mg tablet 5 mg PO TID PRN muscle spa sm #30 07/23/23 tabs naproxen 500 mg tablet 500 mg PO BID PRN pain #30 t abs 07/23/23 naproxen 500 mg tablet 500 mg PO BID PRN pain #30 t abs 08/08/23 tamsulosin 0.4 mg capsule (Flomax) 0.4 mg PO QDAY #30 caps 08/08/23 baclofen 10 mg tablet 10 mg PO BID PRN muscle spas m #30 08/14/23 tabs naproxen 500 mg tablet 500 mg PO BID PRN pain #30 t abs 08/14/23 ibuprofen 800 mg tablet 800 mg PO TID PRN pain #30 t abs 08/28/23 ibuprofen 600 mg tablet 600 mg PO Q6H PRN pain #30 t abs 01/27/24 methocarbamol 500 mg tablet 1,000 mg (2 x 500 mg) PO Q 8H PRN 01/27/24 pain #30 tabs naproxen 500 mg tablet (Naprosyn) 500 mg PO BID #14 ta bs 03/15/24 ibuprofen 800 mg tablet 800 mg PO TID PRN pain #30 t abs 04/02/24 cyclobenzaprine 5 mg tablet 5 mg PO TID PRN muscle spa sm #14 04/07/24 tabs ibuprofen 600 mg tablet 600 mg PO Q6H PRN fever or p ain 04/07/24 #30 tabs ibuprofen 600 mg tablet 600 mg PO Q6H PRN pain #30 t abs 04/07/24 cyclobenzaprine 5 mg tablet 5 mg PO TID PRN muscle spa sm #30 04/11/24 tabs naproxen 500 mg tablet 500 mg PO BID PRN pain #30 t abs 04/11/24 ibuprofen 600 mg tablet 600 mg PO Q8H PRN pain #20 t abs 11/03/24 acetaminophen 500 mg capsule 500 mg PO Q6H PRN pain #3 0 caps 12/03/24 acetaminophen 500 mg capsule 500 mg PO Q6H PRN pain #3 0 caps 12/15/24 cyclobenzaprine 5 mg tablet 5 mg PO TID PRN muscle spa sm #15 12/20/24 tabs lidocaine 5 % topical patch 2 patch topical QDAY PRN p ain #30 12/20/24 (Lidoderm) ea naproxen 500 mg tablet 500 mg PO BID PRN pain #14 t abs 04/04/25 Allergies Allergy/AdvReac Type Severity Reaction Status Date / Time No Known Allergies Allergy Verified 05/13/25 06:48 Review of Systems Constitutional Constitutional: Denies fever(s), Denies headache(s) and Denies lethargy Eyes Eyes: Denies blurry vision and Denies change in vision ENT Ears, Nose, Mouth, and Throat: Denies dizziness, Denies otalgia, Denies headache(s) and Denies neck pain Cardiovascular Cardiovascular: Denies chest pain, Denies dyspnea and Denies orthopnea Respiratory Respiratory: Denies cough and Denies dyspnea Gastrointestinal Gastrointestinal: Denies nausea and Denies vomiting Genitourinary Genitourinary: Denies hematuria and Denies oliguria Musculoskeletal Musculoskeletal: Reports back pain, Reports muscle cramps, Denies myalgias, Denies neck pain, Denies numbness, Reports radiating pain into limb and Denies stiffness Integumentary/Breasts Skin/Breast: Denies lesions and Denies wounds Neurologic Neurologic: Denies dizziness, Denies headache(s) and Denies numbness Past Medical History Past Medical History NEUROLOGIC: Positive Cerebrovascular Accident; Negative Neurological Disorders CARDIAC: Positive Myocardial Infarction and Hypercholesterolemia; Negative Cardiac Disorders or Congestive Heart Failure RESPIRATORY: Negative Chronic Obstructive Pulmonary Disease (COPD) GASTROINTESTINAL: Negative Gastrointestinal Disorders GENITOURINARY: Negative Genitourinary Disorders or Renal Disease MUSCULOSKELETAL: Negative Musculoskeletal Disorders ENDOCRINE: Negative Endocrine Disorders, Diabetes Mellitus Type 1 or Diabetes Mellitus Type 2 HEMATOLOGIC: Negative Blood Disorders OTHER HISTORY: Negative Autoimmune Disease or Clostridium Difficile Social History SMOKING STATUS: Never smoker SUBSTANCE USE: methamphetamine ED Exam General Limitations: Present no limitations General appearance: Present alert and in no apparent distress Head Head exam: Present atraumatic and normocephalic Eye Eye exam: Present normal appearance, PERRL and EOMI ENT ENT exam: Present normal exam and normal oropharynx Neck Neck exam: Present normal inspection and full ROM Chest Chest inspection: Present normal inspection and symmetric chest wall rise Respiratory Respiratory exam: Present normal lung sounds bilaterally; Absent respiratory distress Cardiovascular Cardiovascular exam: Present regular rate and +S1 Abdominal Exam Abdominal exam: Present soft; Absent distention Back Exam Back exam: Absent muscle spasm, paraspinal tenderness or vertebral tenderness Neurological Exam Neurological exam: Present alert, normal gait (shuffling gait, known to be chronic in nature per ED staff. ) and reflexes normal (Bilateral patellar 3+ and equal.) Psychiatric Psychiatric exam: Present agitated Skin Skin exam: Present warm, dry and intact Course Quality Measures none Vital Signs Vital signs: Vital Signs Temperature 98.0 F 05/08/25 08:12 Pulse Rate 66 05/08/25 08:12 Respiratory Rate 18 05/08/25 08:12 Blood Pressure 116/80 05/08/25 08:12 Pulse Oximetry (%) 98 05/08/25 08:12 Oxygen Delivery Method Room Air 05/08/25 08:12 Pulse ox 98% on room air, within normal limits. Extremity Problem MDM Narrative MDM Narrative:: 45-year-old male presenting for evaluation of chronic lower extremity pain. Patient is well-known to the emergency department and presents almost daily for evaluation of this concern. Patient denied new onset trauma therefore I did not obtain imaging at this time. I discussed with the patient that we will avoid narcotics given the chronic nature of his discomfort. I offered him Tylenol but he declined at this time and is requesting a sandwich. Ultimately the patient was discharged with plan to follow-up outpatient with primary care. Patient stable at time discharge. Patient data External records reviewed:: [facility] previous records Clinical information provided by:: patient Social determinants that could affect healthcare access:: housing Patient has the following chronic illnesses:: Homelessness. How is presenting disease/condition affected by chronic disease/condition?: exacerbated by Evaluation data The following diagnostics were reviewed and interpreted by me:: other (specify) Lab and/or radiology exams considered but not ordered:: Considered not ordered. Interpretation Summary: Considered not ordered. Medications / Prescriptions Medications or Prescriptions considered but not ordered:: Considered not ordered. Medication administrations:: Considered not ordered. Consultations Consultation(s) initiated? (list below): No Diagnosis Extremity Problem Differential Diagnosis: superficial thrombophlebitis, lower extremity edema and other (Muscle spasm, lower extremity fracture, low back strain.) Most likely diagnosis given after review of the tests above:: Chronic lower extremity discomfort. Admission Indicated Admission indicated?: not indicated Admission Request Was there a request for admission?: No Disposition Plan Disposition Plan: Discharge Discharge Attestation Discharge Attestation: The patient and all family members were given an opportunity to ask questions and understood the discharge instructions. Discharge instructions specifically effects, indications for sooner follow up or return to the emergency department, and the expected course of current diagnosis. Patient condition: Stable Discharge Plan Plan Patient Disposition: HOME (Self Care) Discharge Disposition comment: stable Prescriptions/Referrals Prescriptions/Med Rec: No Action naproxen 500 mg tablet 500 mg PO BID PRN (Reason: pain) Qty: 30 0RF cyclobenzaprine 5 mg tablet 5 mg PO TID PRN (Reason: muscle spasm) Qty: 30 0RF naproxen 500 mg tablet 500 mg PO BID PRN (Reason: pain) Qty: 30 0RF baclofen 10 mg tablet 10 mg PO BID PRN (Reason: muscle spasm) Qty: 30 0RF ibuprofen 800 mg tablet 800 mg PO TID PRN (Reason: pain) Qty: 30 0RF ibuprofen 800 mg tablet 800 mg PO TID PRN (Reason: pain) Qty: 30 0RF ibuprofen 600 mg tablet 600 mg PO Q6H PRN (Reason: pain) Qty: 30 0RF ibuprofen 600 mg tablet 600 mg PO Q8H PRN (Reason: pain) Qty: 20 0RF acetaminophen 500 mg capsule 500 mg PO Q6H PRN (Reason: pain) Qty: 30 0RF lidocaine [Lidoderm] 5 % adhesive patch,medicated 2 patch topical QDAY PRN (Reason: pain) Qty: 30 0RF Rx Instructions: leave on most painful area for up to 12 hrs cyclobenzaprine 5 mg tablet 5 mg PO TID PRN (Reason: muscle spasm) Qty: 15 0RF naproxen 500 mg tablet 500 mg PO BID PRN (Reason: pain) Qty: 14 0RF sulfamethoxazole-trimethoprim [Bactrim DS] 800-160 mg tablet 1 tab PO BID Qty: 14 0RF naproxen 500 mg tablet 500 mg PO BID PRN (Reason: pain) Qty: 30 0RF tamsulosin [Flomax] 0.4 mg capsule 0.4 mg PO QDAY Qty: 30 0RF ibuprofen 600 mg tablet 600 mg PO Q6H PRN (Reason: pain) Qty: 30 0RF methocarbamol 500 mg tablet 1,000 mg PO Q8H PRN (Reason: pain) Qty: 30 0RF naproxen [Naprosyn] 500 mg tablet 500 mg PO BID Qty: 14 0RF ibuprofen 600 mg tablet 600 mg PO Q6H PRN (Reason: fever or pain) Qty: 30 0RF cyclobenzaprine 5 mg tablet 5 mg PO TID PRN (Reason: muscle spasm) Qty: 14 0RF naproxen 500 mg tablet 500 mg PO BID PRN (Reason: pain) Qty: 30 0RF cyclobenzaprine 5 mg tablet 5 mg PO TID PRN (Reason: muscle spasm) Qty: 30 0RF acetaminophen 500 mg capsule 500 mg PO Q6H PRN (Reason: pain) Qty: 30 0RF Referrals: Lavell (PCP)Cody MD [Primary Care Provider] - In 1 week Problem List Clinical Impression: Chronic leg pain, Homelessness Patient/Caregiver Discharge Instructions Education Materials: ED Chronic Pain Additional Instructions: Follow-up with primary care as planned for chronic bilateral leg pain. You may take Tylenol or ibuprofen every 6 hours as needed for pain. Return to the ED if her symptoms worsen or change. Print Language: Setswana Stand Alone Forms: Tami Award Info., Patient Portal Info Letter PA/CONSTRUCTION MANAGER Supervising Physician PA/CONSTRUCTION MANAGER Supervising Physician: Dr. Gallardo
== END 2025-05-08 08:39 | disposition home or self-care (01) ==
PROVIDERS: Emergency Provider Emergency Medicine; PCP Family Medicine
DX: M79.605 Pain in left leg (principal); M79.604 Pain in right leg; G89.29 Other chronic pain; Z59.00 Homelessness unspecified; Z53.29 Procedure and treatment not carried out because of patient's decision for other reasons
CPT/HCPCS: 99281

== ENCOUNTER 2025-05-08 10:15 | Emergency (ER) | payer MEDICAID, SELFPAY ==
[2025-05-08 10:16] VITALS: PULSE 88; RESP 18; O2SAT 96
[2025-05-08 11:14] VITALS: BP 95/63; PULSE 68; RESP 18; TEMP 36.7; O2SAT 97; BMI 29.7
--- NOTE | 2025-05-08 11:32 | PD.EDLOWEX ---
Lower Extremity Injury RME/HPI General Chief Complaint: Extremity Injury, Lower Stated Complaint: BILATERAL LEG PAIN, JUST DC'D FROM ER Time Seen by Provider: 05/08/25 10:29 Arrival date/time: 05/08/25 10:15 Limitations: no limitations RME / HPI RME / HPI Narrative: 45-year-old undomiciled male presents for evaluation of chronic lower extremity pain. Patient denies taking analgesics prior to arrival to the ED. Related Data Previous Rx's ?Medication ?Instructions ?Recorded sulfamethoxazole 800 1 tab PO BID #14 tabs 03/09/23 mg-trimethoprim 160 mg tablet (Bactrim DS) cyclobenzaprine 5 mg tablet 5 mg PO TID PRN muscle spasm #30 07/23/23 tabs naproxen 500 mg tablet 500 mg PO BID PRN pain #30 tabs 07/23/23 naproxen 500 mg tablet 500 mg PO BID PRN pain #30 tabs 08/08/23 tamsulosin 0.4 mg capsule (Flomax) 0.4 mg PO QDAY #30 caps 08/08/23 baclofen 10 mg tablet 10 mg PO BID PRN muscle spasm #30 08/14/23 tabs naproxen 500 mg tablet 500 mg PO BID PRN pain #30 tabs 08/14/23 ibuprofen 800 mg tablet 800 mg PO TID PRN pain #30 tabs 08/28/23 ibuprofen 600 mg tablet 600 mg PO Q6H PRN pain #30 tabs 01/27/24 methocarbamol 500 mg tablet 1,000 mg (2 x 500 mg) PO Q8H PRN 01/27/24 pain #30 tabs naproxen 500 mg tablet (Naprosyn) 500 mg PO BID #14 tabs 03/15/24 ibuprofen 800 mg tablet 800 mg PO TID PRN pain #30 tabs 04/02/24 cyclobenzaprine 5 mg tablet 5 mg PO TID PRN muscle spasm #14 04/07/24 tabs ibuprofen 600 mg tablet 600 mg PO Q6H PRN fever or pain 04/07/24 #30 tabs ibuprofen 600 mg tablet 600 mg PO Q6H PRN pain #30 tabs 04/07/24 cyclobenzaprine 5 mg tablet 5 mg PO TID PRN muscle spasm #30 04/11/24 tabs naproxen 500 mg tablet 500 mg PO BID PRN pain #30 tabs 04/11/24 ibuprofen 600 mg tablet 600 mg PO Q8H PRN pain #20 tabs 11/03/24 acetaminophen 500 mg capsule 500 mg PO Q6H PRN pain #30 caps 12/03/24 acetaminophen 500 mg capsule 500 mg PO Q6H PRN pain #30 caps 12/15/24 cyclobenzaprine 5 mg tablet 5 mg PO TID PRN muscle spasm #15 12/20/24 tabs lidocaine 5 % topical patch 2 patch topical QDAY PRN pain #30 12/20/24 (Lidoderm) ea naproxen 500 mg tablet 500 mg PO BID PRN pain #14 tabs 04/04/25 Allergies Allergy/AdvReac Type Severity Reaction Status Date / Time No Known Allergies Allergy Verified 05/13/25 06:48 Review of Systems Constitutional Constitutional: Denies body ache(s), Denies fever(s) and Denies headache(s) Eyes Eyes: Denies blurry vision and Denies change in vision ENT Ears, Nose, Mouth, and Throat: Denies headache(s) and Denies neck pain Cardiovascular Cardiovascular: Denies chest pain, Denies dyspnea and Denies leg edema Respiratory Respiratory: Denies cough and Denies dyspnea Gastrointestinal Gastrointestinal: Denies nausea and Denies vomiting Genitourinary Genitourinary: Denies dysuria and Denies hematuria Musculoskeletal Musculoskeletal: Reports abnormal gait, Denies back pain, Reports muscle cramps, Denies neck pain, Reports radiating pain into limb, Denies stiffness and Denies tingling Integumentary/Breasts Skin/Breast: Denies new lesions, Denies rash and Denies wounds Neurologic Neurologic: Reports abnormal gait, Denies headache(s), Denies paresthesias and Denies tingling Past Medical History Past Medical History NEUROLOGIC: Positive Cerebrovascular Accident; Negative Neurological Disorders CARDIAC: Positive Myocardial Infarction and Hypercholesterolemia; Negative Cardiac Disorders or Congestive Heart Failure RESPIRATORY: Negative Chronic Obstructive Pulmonary Disease (COPD) GASTROINTESTINAL: Negative Gastrointestinal Disorders GENITOURINARY: Negative Genitourinary Disorders or Renal Disease MUSCULOSKELETAL: Negative Musculoskeletal Disorders ENDOCRINE: Negative Endocrine Disorders, Diabetes Mellitus Type 1 or Diabetes Mellitus Type 2 HEMATOLOGIC: Negative Blood Disorders OTHER HISTORY: Negative Autoimmune Disease or Clostridium Difficile Social History SMOKING STATUS: Never smoker SUBSTANCE USE: methamphetamine ED Exam General Limitations: Present no limitations General appearance: Present alert and in no apparent distress Head Head exam: Present atraumatic and normocephalic Eye Eye exam: Present normal appearance and EOMI Neck Neck exam: Present normal inspection and full ROM Chest Chest inspection: Present normal inspection and symmetric chest wall rise Respiratory Respiratory exam: Absent respiratory distress Cardiovascular Cardiovascular exam: Present regular rate and +S1 Abdominal Exam Abdominal exam: Present soft; Absent distention Extremities Exam Extremities exam: Present full ROM; Absent pedal edema or calf tenderness Neurological Exam Neurological exam: Present alert Psychiatric Psychiatric exam: Present agitated Skin Skin exam: Present warm, dry and normal color Course Quality Measures none Orders Category Date Time Status Acetaminophen Tab [Tylenol Tab] Med 05/08/25 11:32 Discontinued 650 mg PO X1 ONE Vital Signs Vital signs: Vital Signs Temperature 98.1 F 05/08/25 11:14 Pulse Rate 68 05/08/25 11:14 Respiratory Rate 18 05/08/25 11:14 Blood Pressure 95/63 05/08/25 11:14 Pulse Oximetry (%) 97 05/08/25 11:14 Oxygen Delivery Method Room Air 05/08/25 11:14 Pulse ox pulse ox 97% on room air, within normal limits. Extremity Injury, Lower MDM Narrative MDM Narrative:: 45-year-old male well-known to the department presents for chronic lower extremity pain. Patient denied recent trauma. Vital signs reassuring. Patient ambulating with shuffling gait as he does at baseline. I gave the patient a dose of Tylenol and advised him to follow-up with primary care. We offered him food and he declined at this time. I stressed the patient that he needs to follow-up outpatient with his PCP for long-term management of this chronic pain. Patient stable at time of discharge. Patient data External records reviewed:: [facility] previous records Clinical information provided by:: patient Social determinants that could affect healthcare access:: housing Patient has the following chronic illnesses:: Patient is undomiciled. How is presenting disease/condition affected by chronic disease/condition?: no chronic disease Evaluation data The following diagnostics were reviewed and interpreted by me:: other (specify) Lab and/or radiology exams considered but not ordered:: Considered not ordered. Interpretation Summary: Considered not ordered. Medications / Prescriptions Medications or Prescriptions considered but not ordered:: Rx given. Medication administrations:: Medication Administration History Discontinued Medications Acetaminophen (Acetaminophen 325 Mg Tablet) 650 mg PO X1 ONE Stop: 05/08/25 11:33 Last Admin: 05/08/25 11:47 Dose: 650 mg Documented By: DAA Rx given. Consultations Consultation(s) initiated? (list below): No Diagnosis Extremity Injury, Lower Differential Diagnosis: ankle sprain and strain, acute internal derangement of knee, fracture of femur, puncture wound of foot and ankle fracture Most likely diagnosis given after review of the tests above:: Chronic lower extremity pain. Admission Indicated Admission indicated?: not indicated Admission Request Was there a request for admission?: No Disposition Plan Disposition Plan: Discharge Discharge Attestation Discharge Attestation: The patient and all family members were given an opportunity to ask questions and understood the discharge instructions. Discharge instructions specifically effects, indications for sooner follow up or return to the emergency department, and the expected course of current diagnosis. Patient condition: Stable Discharge Plan Plan Patient Disposition: HOME (Self Care) Discharge Disposition comment: stable Prescriptions/Referrals Prescriptions/Med Rec: No Action naproxen 500 mg tablet 500 mg PO BID PRN (Reason: pain) Qty: 30 0RF cyclobenzaprine 5 mg tablet 5 mg PO TID PRN (Reason: muscle spasm) Qty: 30 0RF naproxen 500 mg tablet 500 mg PO BID PRN (Reason: pain) Qty: 30 0RF baclofen 10 mg tablet 10 mg PO BID PRN (Reason: muscle spasm) Qty: 30 0RF ibuprofen 800 mg tablet 800 mg PO TID PRN (Reason: pain) Qty: 30 0RF ibuprofen 800 mg tablet 800 mg PO TID PRN (Reason: pain) Qty: 30 0RF ibuprofen 600 mg tablet 600 mg PO Q6H PRN (Reason: pain) Qty: 30 0RF ibuprofen 600 mg tablet 600 mg PO Q8H PRN (Reason: pain) Qty: 20 0RF acetaminophen 500 mg capsule 500 mg PO Q6H PRN (Reason: pain) Qty: 30 0RF lidocaine [Lidoderm] 5 % adhesive patch,medicated 2 patch topical QDAY PRN (Reason: pain) Qty: 30 0RF Rx Instructions: leave on most painful area for up to 12 hrs cyclobenzaprine 5 mg tablet 5 mg PO TID PRN (Reason: muscle spasm) Qty: 15 0RF naproxen 500 mg tablet 500 mg PO BID PRN (Reason: pain) Qty: 14 0RF sulfamethoxazole-trimethoprim [Bactrim DS] 800-160 mg tablet 1 tab PO BID Qty: 14 0RF naproxen 500 mg tablet 500 mg PO BID PRN (Reason: pain) Qty: 30 0RF tamsulosin [Flomax] 0.4 mg capsule 0.4 mg PO QDAY Qty: 30 0RF ibuprofen 600 mg tablet 600 mg PO Q6H PRN (Reason: pain) Qty: 30 0RF methocarbamol 500 mg tablet 1,000 mg PO Q8H PRN (Reason: pain) Qty: 30 0RF naproxen [Naprosyn] 500 mg tablet 500 mg PO BID Qty: 14 0RF ibuprofen 600 mg tablet 600 mg PO Q6H PRN (Reason: fever or pain) Qty: 30 0RF cyclobenzaprine 5 mg tablet 5 mg PO TID PRN (Reason: muscle spasm) Qty: 14 0RF naproxen 500 mg tablet 500 mg PO BID PRN (Reason: pain) Qty: 30 0RF cyclobenzaprine 5 mg tablet 5 mg PO TID PRN (Reason: muscle spasm) Qty: 30 0RF acetaminophen 500 mg capsule 500 mg PO Q6H PRN (Reason: pain) Qty: 30 0RF Referrals: Cody Monte MD ([place]) [Primary Care Provider] - In 1 week Problem List Clinical Impression: Homelessness, Chronic leg pain Patient/Caregiver Discharge Instructions Education Materials: ED Chronic Pain Additional Instructions: Please follow-up with your primary care provider for your chronic leg pain. May take Tylenol or ibuprofen every 6 hours as needed for pain. Print Language: Niuean Stand Alone Forms: Tami Award Info., Patient Portal Info Letter PA/DIRECTOR OF SCIENTIFIC RESEARCH Supervising Physician PA/DIRECTOR OF SCIENTIFIC RESEARCH Supervising Physician: Dr. Gallardo
[2025-05-08] MEDS: ACETAMINOPHEN 325 MG TABLET 650 MG PO (11:47)
== END 2025-05-08 13:09 | disposition home or self-care (01) ==
PROVIDERS: Emergency Provider Emergency Medicine; PCP Family Medicine
DX: M79.604 Pain in right leg (principal); M79.605 Pain in left leg; G89.29 Other chronic pain; Z59.00 Homelessness unspecified
CPT/HCPCS: 99282; A9270

== ENCOUNTER 2025-05-08 14:58 | Emergency (ER) | payer MEDICAID, SELFPAY ==
[2025-05-08 14:59] VITALS: PULSE 90; RESP 16; O2SAT 98
[2025-05-08 15:47] VITALS: BP 128/67; PULSE 61; RESP 17; TEMP 36.7; O2SAT 98; BMI 29.7
--- NOTE | 2025-05-08 15:53 | EDNOTE_ITS ---
ED Extremity Problem RME/HPI General Chief complaint: Extremity Problem,Nontraumatic Stated complaint: Leg pain bilateral Time Seen by Provider: 05/08/25 15:04 Arrival date/time: 05/08/25 14:58 RME / HPI RME / HPI Narrative: 45-year-old male patient homeless, who is known to us, coming to this emergency room several times a day, on a daily basis, due to chronic leg pain. Side problem chronic leg pain, patient denies any other complaints except being hungry asking for sandwich. Denies any other complaints patient is ambulatory. Patient was seen here earlier today less than 3 hours ago. For the same chronic leg pain. Related Data Previous Rx's ?Medication ?Instructions ?Recorded sulfamethoxazole 800 1 tab PO BID #14 tabs mg-trimethoprim 160 mg tablet (Bactrim DS) cyclobenzaprine 5 mg tablet 5 mg PO TID PRN muscle spa sm #30 07/23/23 tabs naproxen 500 mg tablet 500 mg PO BID PRN pain #30 t abs 07/23/23 naproxen 500 mg tablet 500 mg PO BID PRN pain #30 t abs 08/08/23 tamsulosin 0.4 mg capsule (Flomax) 0.4 mg PO QDAY #30 caps 08/08/23 baclofen 10 mg tablet 10 mg PO BID PRN muscle spas m #30 08/14/23 tabs naproxen 500 mg tablet 500 mg PO BID PRN pain #30 t abs 08/14/23 ibuprofen 800 mg tablet 800 mg PO TID PRN pain #30 t abs 08/28/23 ibuprofen 600 mg tablet 600 mg PO Q6H PRN pain #30 t abs 01/27/24 methocarbamol 500 mg tablet 1,000 mg (2 x 500 mg) PO Q 8H PRN 01/27/24 pain #30 tabs naproxen 500 mg tablet (Naprosyn) 500 mg PO BID #14 ta bs 03/15/24 ibuprofen 800 mg tablet 800 mg PO TID PRN pain #30 t abs 04/02/24 cyclobenzaprine 5 mg tablet 5 mg PO TID PRN muscle spa sm #14 04/07/24 tabs ibuprofen 600 mg tablet 600 mg PO Q6H PRN fever or p ain 04/07/24 #30 tabs ibuprofen 600 mg tablet 600 mg PO Q6H PRN pain #30 t abs 04/07/24 cyclobenzaprine 5 mg tablet 5 mg PO TID PRN muscle spa sm #30 04/11/24 tabs naproxen 500 mg tablet 500 mg PO BID PRN pain #30 t abs 04/11/24 ibuprofen 600 mg tablet 600 mg PO Q8H PRN pain #20 t abs 11/03/24 acetaminophen 500 mg capsule 500 mg PO Q6H PRN pain #3 0 caps 12/03/24 acetaminophen 500 mg capsule 500 mg PO Q6H PRN pain #3 0 caps 12/15/24 cyclobenzaprine 5 mg tablet 5 mg PO TID PRN muscle spa sm #15 12/20/24 tabs lidocaine 5 % topical patch 2 patch topical QDAY PRN p ain #30 12/20/24 (Lidoderm) ea naproxen 500 mg tablet 500 mg PO BID PRN pain #14 t abs 04/04/25 Allergies Allergy/AdvReac Type Severity Reaction Status Date / Time No Known Allergies Allergy Verified 05/08/25 15:02 Review of Systems Review of Systems Narrative Review of Systems: Review of system reviewed and within normal limits except mentioned in HPI ED Exam Narrative Physical exam: VITAL SIGNS: Reviewed. GENERAL APPEARANCE: Alert and interactive, follows commands, no acute distress, unkept HEAD AND FACE: Non-traumatic. ENT: PERRL, pink conjunctivitis, eyelid no trauma, Mucous membrane moist. NECK: Supple, nontender, no nuchal rigidity. CHEST: No tenderness, no crepitus, no paradoxical movement, no retractions. LUNGS: Clear, well ventilated, symmetric, no rales, no wheezing, no ronchi, no stridor, good breath sounds bilaterally. HEART: Regular rate, regular rhythm, no murmur, no gallops. ABDOMEN: Soft, positive bowel sounds, nondistended, no guarding, nontender, no rebound, no masses, RECTAL: Deferred. GENITAL: Deferred. NEUROLOGICAL: Gross motor function intact sensory function intact, Appropriate for age. MUSCULOSKELETAL: low back nontender, full range of motion. EXTREMITIES: Chronic leg pain, no swelling no redness no deformity, full range of motion. SKIN: Color pink, dry, no rash, no lacerations, no abrasions, no contusions. LYMPHATICS: Deferred. Course Quality Measures none Orders Category Date Time Status Acetaminophen Tab [Tylenol ES Tab] Med 05/08/25 15:52 Discontinued 500 mg PO X1 ONE Vital Signs Vital signs: Vital Signs Temperature 98.0 F 05/08/25 15:47 Pulse Rate 61 05/08/25 15:47 Respiratory Rate 17 05/08/25 15:47 Blood Pressure 128/67 05/08/25 15:47 Pulse Oximetry (%) 98 05/08/25 15:47 Oxygen Delivery Method Room Air 05/08/25 15:47 Extremity Problem MDM Narrative MDM Narrative:: 45-year-old male patient homeless, who is known to us, coming to this emergency room several times a day, on a daily basis, due to chronic leg pain. Side problem chronic leg pain, patient denies any other complaints except being hungry asking for sandwich. Denies any other complaints patient is ambulatory. Patient was seen here earlier today less than 3 hours ago. For the same chronic leg pain. Workup is not needed at this time patient is coming in for food. Patient data External records reviewed:: None Clinical information provided by:: patient Social determinants that could affect healthcare access:: none Patient has the following chronic illnesses:: Homelessness How is presenting disease/condition affected by chronic disease/condition?: no chronic disease Evaluation data The following diagnostics were reviewed and interpreted by me:: other (specify) Lab and/or radiology exams considered but not ordered:: None Interpretation Summary: None Medications / Prescriptions Medications or Prescriptions considered but not ordered:: None Medication administrations:: Medication Administration History Discontinued Medications Acetaminophen (Acetaminophen 500 Mg Tablet) 500 mg PO X1 ONE Stop: 05/08/25 15:53 Tylenol Consultations Consultation(s) initiated? (list below): No Diagnosis Extremity Problem Differential Diagnosis: cellulitis, superficial thrombophlebitis and other (Chronic leg pain) Most likely diagnosis given after review of the tests above:: Chronic leg pain Admission Indicated Admission indicated?: not indicated Admission Request Was there a request for admission?: No Disposition Plan Disposition Plan: Discharge Discharge Attestation Discharge Attestation: The patient was given an opportunity to ask questions and understood the discharge instructions. Discharge instructions specifically effects, indications for sooner follow up or return to the emergency department, and the expected course of current diagnosis. Patient condition: Stable Discharge Plan Plan Patient Disposition: HOME (Self Care) Discharge Disposition comment: Stable Prescriptions/Referrals Prescriptions/Med Rec: No Action naproxen 500 mg tablet 500 mg PO BID PRN (Reason: pain) Qty: 30 0RF cyclobenzaprine 5 mg tablet 5 mg PO TID PRN (Reason: muscle spasm) Qty: 30 0RF naproxen 500 mg tablet 500 mg PO BID PRN (Reason: pain) Qty: 30 0RF baclofen 10 mg tablet 10 mg PO BID PRN (Reason: muscle spasm) Qty: 30 0RF ibuprofen 800 mg tablet 800 mg PO TID PRN (Reason: pain) Qty: 30 0RF ibuprofen 800 mg tablet 800 mg PO TID PRN (Reason: pain) Qty: 30 0RF ibuprofen 600 mg tablet 600 mg PO Q6H PRN (Reason: pain) Qty: 30 0RF ibuprofen 600 mg tablet 600 mg PO Q8H PRN (Reason: pain) Qty: 20 0RF acetaminophen 500 mg capsule 500 mg PO Q6H PRN (Reason: pain) Qty: 30 0RF lidocaine [Lidoderm] 5 % adhesive patch,medicated 2 patch topical QDAY PRN (Reason: pain) Qty: 30 0RF Rx Instructions: leave on most painful area for up to 12 hrs cyclobenzaprine 5 mg tablet 5 mg PO TID PRN (Reason: muscle spasm) Qty: 15 0RF naproxen 500 mg tablet 500 mg PO BID PRN (Reason: pain) Qty: 14 0RF sulfamethoxazole-trimethoprim [Bactrim DS] 800-160 mg tablet 1 tab PO BID Qty: 14 0RF naproxen 500 mg tablet 500 mg PO BID PRN (Reason: pain) Qty: 30 0RF tamsulosin [Flomax] 0.4 mg capsule 0.4 mg PO QDAY Qty: 30 0RF ibuprofen 600 mg tablet 600 mg PO Q6H PRN (Reason: pain) Qty: 30 0RF methocarbamol 500 mg tablet 1,000 mg PO Q8H PRN (Reason: pain) Qty: 30 0RF naproxen [Naprosyn] 500 mg tablet 500 mg PO BID Qty: 14 0RF ibuprofen 600 mg tablet 600 mg PO Q6H PRN (Reason: fever or pain) Qty: 30 0RF cyclobenzaprine 5 mg tablet 5 mg PO TID PRN (Reason: muscle spasm) Qty: 14 0RF naproxen 500 mg tablet 500 mg PO BID PRN (Reason: pain) Qty: 30 0RF cyclobenzaprine 5 mg tablet 5 mg PO TID PRN (Reason: muscle spasm) Qty: 30 0RF acetaminophen 500 mg capsule 500 mg PO Q6H PRN (Reason: pain) Qty: 30 0RF Problem List Clinical Impression: Chronic leg pain Patient/Caregiver Discharge Instructions Discharge Activity: activity as tolerated Education Materials: ED Chronic Pain Additional Instructions: Thank you for the opportunity for serving you today. You are stable for discharged . You are advised to: Follow-up with your PCP in 1 to 2 days Return to ED for worsening of symptoms Increase oral fluids Take medication as prescribed Print Language: Nepali Stand Alone Forms: Tami Award Info., Patient Portal Info Letter PA/DEVYN Supervising Physician FAINA/DEVYN Supervising Physician: MD Paulina
--- NOTE | 2025-05-08 16:06 | PC.NURSE ---
NA x1, patient seen [place] the [place] bus stop.
--- NOTE | 2025-05-08 16:24 | PC.NURSE ---
NAx2
--- NOTE | 2025-05-08 16:35 | PC.NURSE ---
NAx3, patient eloped.
== END 2025-05-08 16:37 | disposition left against medical advice (07) ==
LOC: SERX 16:07
PROVIDERS: Emergency Provider Emergency Medicine; PCP Family Medicine
DX: M79.605 Pain in left leg (principal); M79.604 Pain in right leg; G89.29 Other chronic pain; Z59.00 Homelessness unspecified; Z53.29 Procedure and treatment not carried out because of patient's decision for other reasons
CPT/HCPCS: 99281

== ENCOUNTER 2025-05-09 10:02 | Emergency (ER) | payer MEDICAID, SELFPAY ==
[2025-05-09 10:11] VITALS: BP 115/78; PULSE 58; RESP 16; TEMP 36.8; O2SAT 98
[2025-05-09 11:08] LABS: Basophils % (Auto) 1 % (0-2.5); Eosinophils # (Auto) 0.2 Thou/mm3 (0.0-0.5); Eosinophils % (Auto) 3 % (0-10); Hematocrit 39.6 % (41.0-53.0); Hemoglobin 13.4 g/dL (13.5-16.0); Immature Granulocytes % (Auto) 0 % (0-0); Immature Granulocytes Auto 0.01 Thou/mm3 (0.00-0.00); Lymphocytes # (Auto) 1.2 Thou/mm3 (1.0-4.8); Lymphocytes % (Auto) 22 % (10-50); Mean Corpuscular HGB Conc 33.8 g/dl (31.0-37.0); Mean Corpuscular Hemoglobin 31.1 pg (25.0-35.0); Mean Corpuscular Volume 92 fL (80-100); Monocytes # (Auto) 0.5 Thou/mm3 (0.0-0.8); Monocytes % (Auto) 8 % (0-12); Neutrophils # (Auto) 3.6 Thou/mm3 (1.8-7.7); Neutrophils % (Auto) 66 % (37-80); Nucleated Red Blood Cell % 0 /100 WBC (0); Platelet Count 222 Thou/mm3 (140-440); RDW Standard Deviation 44.8 fL (35.1-43.9); Red Blood Count 4.31 Miln/mm3 (4.50-5.90); White Blood Count 5.5 Thou/mm3 (3.8-10.6)
[2025-05-09 11:32] LABS: Anion Gap 4 (7-16); BUN/Creatinine Ratio 25 Ratio (12-20); Blood Urea Nitrogen 20 mg/dL (9-23); Calcium 8.6 mg/dL (8.3-10.6); Carbon Dioxide 28.6 mMol/L (20.0-31.0); Chloride 109 mMol/L (98-107); Creatinine (Component) 0.8 mg/dL (0.6-1.3); Glucose 90 mg/dL (74-106); Osmolality,Calculated 285 (275-295); Sodium 142 mMol/L (136-145); eGFR > 60 See Note
[2025-05-09] MEDS: ACETAMINOPHEN 325 MG TABLET 650 MG PO (11:55)
--- NOTE | 2025-05-09 15:21 | PD.EDRME ---
Rapid Medical Screening Exam RME Arrival date/time: 05/09/25 10:02 45-year-old male presents emergency department for complaints of bilateral leg pain Chief Complaint: Extremity Problem,Nontraumatic Time Seen by Provider: 05/09/25 10:06 Vital signs: Vital Signs Temperature 98.2 F 05/09/25 10:11 Pulse Rate 58 L 05/09/25 10:11 Respiratory Rate 16 05/09/25 10:11 Blood Pressure 115/78 05/09/25 10:11 Pulse Oximetry (%) 98 05/09/25 10:11 Oxygen Delivery Method Room Air 05/09/25 10:11
== END 2025-05-09 12:10 | disposition left against medical advice (07) ==
PROVIDERS: Nurse Practitioner Primary Care; Emergency Provider Emergency Medicine; PCP Family Medicine
DX: M79.605 Pain in left leg (principal); M79.604 Pain in right leg; Z53.29 Procedure and treatment not carried out because of patient's decision for other reasons
CPT/HCPCS: 36415; 80048; 85025; 99281; A9270

== ENCOUNTER 2025-05-09 15:20 | Emergency (ER) | payer MEDICAID, SELFPAY ==
[2025-05-09 16:25] VITALS: BP 96/58; PULSE 63; RESP 17; TEMP 36.6; O2SAT 98; BMI 27.6
--- NOTE | 2025-05-09 16:42 | PD.EDRME ---
Rapid Medical Screening Exam RME Arrival date/time: 05/09/25 15:20 45-year-old male who is homeless and frequents the ER on a daily basis presents to the ER today via EMS for the second time with complaints of chronic leg pain Time Seen by Provider: 05/09/25 15:22 Vital signs: Vital Signs Temperature 97.9 F 05/09/25 16:25 Pulse Rate 63 05/09/25 16:25 Respiratory Rate 17 05/09/25 16:25 Blood Pressure 96/58 L 05/09/25 16:25 Pulse Oximetry (%) 98 05/09/25 16:25 Oxygen Delivery Method Room Air 05/09/25 16:25
== END 2025-05-09 19:09 | disposition left against medical advice (07) ==
PROVIDERS: Emergency Provider Emergency Medicine; PCP Family Medicine
DX: M79.606 Pain in leg, unspecified (principal); G89.29 Other chronic pain; Z59.00 Homelessness unspecified; Z53.29 Procedure and treatment not carried out because of patient's decision for other reasons
CPT/HCPCS: 99281

== ENCOUNTER 2025-05-12 12:04 | Emergency (ER) | payer MEDICAID, SELFPAY ==
[2025-05-12 12:09] VITALS: PULSE 85; RESP 16; O2SAT 98
[2025-05-12 12:21] VITALS: BMI 32.8
[2025-05-12 12:22] VITALS: BP 128/76; PULSE 77; RESP 17; TEMP 37.1; O2SAT 98
--- NOTE | 2025-05-12 17:51 | EDNOTE_ITS ---
Lower Extremity Injury RME/HPI General Stated Complaint: LEG PAIN Time Seen by Provider: 05/12/25 12:15 Arrival date/time: 05/12/25 12:04 45-year-old male who is homeless well-known to me presents emergency department today for complaints of bilateral leg pain. Patient reports mostly is here for a sandwich. Limitations: no limitations Related Data Previous Rx's ?Medication ?Instructions ?Recorded sulfamethoxazole 800 1 tab PO BID #14 tabs mg-trimethoprim 160 mg tablet (Bactrim DS) cyclobenzaprine 5 mg tablet 5 mg PO TID PRN muscle spa sm #30 07/23/23 tabs naproxen 500 mg tablet 500 mg PO BID PRN pain #30 t abs 07/23/23 naproxen 500 mg tablet 500 mg PO BID PRN pain #30 t abs 08/08/23 tamsulosin 0.4 mg capsule (Flomax) 0.4 mg PO QDAY #30 caps 08/08/23 baclofen 10 mg tablet 10 mg PO BID PRN muscle spas m #30 08/14/23 tabs naproxen 500 mg tablet 500 mg PO BID PRN pain #30 t abs 08/14/23 ibuprofen 800 mg tablet 800 mg PO TID PRN pain #30 t abs 08/28/23 ibuprofen 600 mg tablet 600 mg PO Q6H PRN pain #30 t abs 01/27/24 methocarbamol 500 mg tablet 1,000 mg (2 x 500 mg) PO Q 8H PRN 01/27/24 pain #30 tabs naproxen 500 mg tablet (Naprosyn) 500 mg PO BID #14 ta bs 03/15/24 ibuprofen 800 mg tablet 800 mg PO TID PRN pain #30 t abs 04/02/24 cyclobenzaprine 5 mg tablet 5 mg PO TID PRN muscle spa sm #14 04/07/24 tabs ibuprofen 600 mg tablet 600 mg PO Q6H PRN fever or p ain 04/07/24 #30 tabs ibuprofen 600 mg tablet 600 mg PO Q6H PRN pain #30 t abs 04/07/24 cyclobenzaprine 5 mg tablet 5 mg PO TID PRN muscle spa sm #30 04/11/24 tabs naproxen 500 mg tablet 500 mg PO BID PRN pain #30 t abs 04/11/24 ibuprofen 600 mg tablet 600 mg PO Q8H PRN pain #20 t abs 11/03/24 acetaminophen 500 mg capsule 500 mg PO Q6H PRN pain #3 0 caps 12/03/24 acetaminophen 500 mg capsule 500 mg PO Q6H PRN pain #3 0 caps 12/15/24 cyclobenzaprine 5 mg tablet 5 mg PO TID PRN muscle spa sm #15 12/20/24 tabs lidocaine 5 % topical patch 2 patch topical QDAY PRN p ain #30 12/20/24 (Lidoderm) ea naproxen 500 mg tablet 500 mg PO BID PRN pain #14 t abs 04/04/25 Allergies Allergy/AdvReac Type Severity Reaction Status Date / Time No Known Allergies Allergy Verified 05/12/25 12:10 Review of Systems Review of Systems Systems Reviewed: All systems reviewed, normal except as documented Constitutional Constitutional: Reports system reviewed and no additional complaints, except as documented, Denies fever(s) and Denies headache(s) Eyes Eyes: Reports system reviewed and no additional complaints, except as documented and Denies blurry vision ENT Ears, Nose, Mouth, and Throat: Reports system reviewed and no additional complaints, except as documented, Denies headache(s), Denies nasal congestion and Denies nasal discharge Cardiovascular Cardiovascular: Reports system reviewed and no additional complaints, except as documented, Denies chest pain and Denies dyspnea Respiratory Respiratory: Reports system reviewed and no additional complaints, except as documented, Denies chest congestion, Denies cough and Denies dyspnea Gastrointestinal Gastrointestinal: Reports system reviewed and no additional complaints, except as documented and Denies abdominal pain Musculoskeletal Musculoskeletal: Reports system reviewed and no additional complaints, except as documented, Reports arthralgias, Denies deformity, Denies numbness, Reports stiffness and Denies tingling Integumentary/Breasts Skin/Breast: Reports system reviewed and no additional complaints, except as documented and Denies rash Neurologic Neurologic: Reports system reviewed and no additional complaints, except as documented, Reports as per HPI, Denies headache(s), Denies numbness and Denies tingling Past Medical History Past Medical History NEUROLOGIC: Positive Cerebrovascular Accident; Negative Neurological Disorders CARDIAC: Positive Myocardial Infarction and Hypercholesterolemia; Negative Cardiac Disorders or Congestive Heart Failure RESPIRATORY: Negative Chronic Obstructive Pulmonary Disease (COPD) GASTROINTESTINAL: Negative Gastrointestinal Disorders GENITOURINARY: Negative Genitourinary Disorders or Renal Disease MUSCULOSKELETAL: Negative Musculoskeletal Disorders ENDOCRINE: Negative Endocrine Disorders, Diabetes Mellitus Type 1 or Diabetes Mellitus Type 2 HEMATOLOGIC: Negative Blood Disorders OTHER HISTORY: Negative Autoimmune Disease or Clostridium Difficile Social History SMOKING STATUS: Current every day smoker SUBSTANCE USE: methamphetamine ED Exam General Limitations: Present no limitations General appearance: Present alert and in no apparent distress Head Head exam: Present atraumatic Eye Eye exam: Present normal appearance, PERRL and EOMI; Absent conjunctival injection ENT ENT exam: Present normal exam, normal oropharynx and mucous membranes moist Neck Neck exam: Present normal inspection, full ROM and trachea midline Chest Chest inspection: Present normal inspection and symmetric chest wall rise Respiratory Respiratory exam: Present normal lung sounds bilaterally; Absent respiratory distress Cardiovascular Cardiovascular exam: Present regular rate, normal rhythm and normal heart sounds Abdominal Exam Abdominal exam: Present soft and normal bowel sounds; Absent distention, tenderness, guarding, rebound or rigidity Extremities Exam Extremities exam: Present normal inspection, full ROM, tenderness, normal capillary refill and other (Bilateral leg pain); Absent pedal edema, joint swelling or calf tenderness Back Exam Back exam: Present normal inspection and full ROM Neurological Exam Neurological exam: Present alert, oriented X3, CN II-XII intact, normal gait and reflexes normal; Absent motor sensory deficit Psychiatric Psychiatric exam: Present normal affect and normal mood Skin Skin exam: Present warm, dry, intact and normal color; Absent rash Course Quality Measures none Vital Signs Vital signs: Vital Signs Temperature 98.7 F 05/12/25 12:22 Pulse Rate 77 05/12/25 12:22 Respiratory Rate 17 05/12/25 12:22 Blood Pressure 128/76 05/12/25 12:22 Pulse Oximetry (%) 98 05/12/25 12:22 Oxygen Delivery Method Room Air 05/12/25 12:22 O2 saturation 98% on room air with normal limits Extremity Injury, Lower MDM Narrative MDM Narrative:: 45-year-old male who is homeless well-known to me presents emergency department today for complaints of bilateral leg pain. Patient reports mostly is here for a sandwich. On exam patient with apparent patient does not appear ill or toxic no acute distress Patient given food and water and discharged home Patient discharged home in no distress to follow-up with primary care doctor in the next 24 to 48 hours and for any worsening symptoms to return to the ER immediately Patient data External records reviewed:: [facility] previous records Clinical information provided by:: patient Social determinants that could affect healthcare access:: none Patient has the following chronic illnesses:: None How is presenting disease/condition affected by chronic disease/condition?: no chronic disease Evaluation data The following diagnostics were reviewed and interpreted by me:: other (specify) (N/A) Lab and/or radiology exams considered but not ordered:: Consider not ordered Interpretation Summary: N/A Medications / Prescriptions Medications or Prescriptions considered but not ordered:: Given Medication administrations:: Given Consultations Consultation(s) initiated? (list below): No Diagnosis Extremity Injury, Lower Differential Diagnosis: other Most likely diagnosis given after review of the tests above:: Bilateral leg pain Admission Indicated Admission indicated?: not indicated Admission Request Was there a request for admission?: No Disposition Plan Disposition Plan: Discharge Discharge Attestation Discharge Attestation: The patient and all family members were given an opportunity to ask questions and understood the discharge instructions. Discharge instructions specifically effects, indications for sooner follow up or return to the emergency department, and the expected course of current diagnosis. Patient condition: Stable Discharge Plan Plan Patient Disposition: HOME (Self Care) Discharge Disposition comment: Stable Prescriptions/Referrals Prescriptions/Med Rec: No Action naproxen 500 mg tablet 500 mg PO BID PRN (Reason: pain) Qty: 30 0RF cyclobenzaprine 5 mg tablet 5 mg PO TID PRN (Reason: muscle spasm) Qty: 30 0RF naproxen 500 mg tablet 500 mg PO BID PRN (Reason: pain) Qty: 30 0RF baclofen 10 mg tablet 10 mg PO BID PRN (Reason: muscle spasm) Qty: 30 0RF ibuprofen 800 mg tablet 800 mg PO TID PRN (Reason: pain) Qty: 30 0RF ibuprofen 800 mg tablet 800 mg PO TID PRN (Reason: pain) Qty: 30 0RF ibuprofen 600 mg tablet 600 mg PO Q6H PRN (Reason: pain) Qty: 30 0RF ibuprofen 600 mg tablet 600 mg PO Q8H PRN (Reason: pain) Qty: 20 0RF acetaminophen 500 mg capsule 500 mg PO Q6H PRN (Reason: pain) Qty: 30 0RF lidocaine [Lidoderm] 5 % adhesive patch,medicated 2 patch topical QDAY PRN (Reason: pain) Qty: 30 0RF Rx Instructions: leave on most painful area for up to 12 hrs cyclobenzaprine 5 mg tablet 5 mg PO TID PRN (Reason: muscle spasm) Qty: 15 0RF naproxen 500 mg tablet 500 mg PO BID PRN (Reason: pain) Qty: 14 0RF sulfamethoxazole-trimethoprim [Bactrim DS] 800-160 mg tablet 1 tab PO BID Qty: 14 0RF naproxen 500 mg tablet 500 mg PO BID PRN (Reason: pain) Qty: 30 0RF tamsulosin [Flomax] 0.4 mg capsule 0.4 mg PO QDAY Qty: 30 0RF ibuprofen 600 mg tablet 600 mg PO Q6H PRN (Reason: pain) Qty: 30 0RF methocarbamol 500 mg tablet 1,000 mg PO Q8H PRN (Reason: pain) Qty: 30 0RF naproxen [Naprosyn] 500 mg tablet 500 mg PO BID Qty: 14 0RF ibuprofen 600 mg tablet 600 mg PO Q6H PRN (Reason: fever or pain) Qty: 30 0RF cyclobenzaprine 5 mg tablet 5 mg PO TID PRN (Reason: muscle spasm) Qty: 14 0RF naproxen 500 mg tablet 500 mg PO BID PRN (Reason: pain) Qty: 30 0RF cyclobenzaprine 5 mg tablet 5 mg PO TID PRN (Reason: muscle spasm) Qty: 30 0RF acetaminophen 500 mg capsule 500 mg PO Q6H PRN (Reason: pain) Qty: 30 0RF Referrals: Lavell (PCP),MD Cody [Primary Care Provider] - In 1 week Problem List Clinical Impression: Chronic leg pain, Homelessness Patient/Caregiver Discharge Instructions Education Materials: ED Chronic Pain Additional Instructions: Please follow up with your primary care doctor in the next 24-48hrs for any worsening symptoms return here immediately Print Language: Upper Sorbian Stand Alone Forms: Tami Award Info., Patient Portal Info Letter PA/MD SENIOR RESEARCH SCIENTIST Supervising Physician PA/MD SENIOR RESEARCH SCIENTIST Supervising Physician: Dr. sotomayor
[2025-05-12 18:39] VITALS: BP 136/78; PULSE 90; RESP 20; TEMP 36.6; O2SAT 100
== END 2025-05-12 18:40 | disposition home or self-care (01) ==
PROVIDERS: Emergency Provider Family Medicine; PCP Family Medicine
DX: M79.604 Pain in right leg (principal); M79.605 Pain in left leg; G89.29 Other chronic pain; Z59.00 Homelessness unspecified
CPT/HCPCS: 99281

== ENCOUNTER 2025-05-12 19:34 | Emergency (ER) | payer MEDICAID, SELFPAY ==
[2025-05-12 19:35] VITALS: PULSE 72; RESP 16; O2SAT 97; BMI 29.7
[2025-05-12 20:42] VITALS: BP 125/82; PULSE 65; RESP 16; TEMP 36.7; O2SAT 99
--- NOTE | 2025-05-12 20:43 | PD.EDEXREM ---
ED Extremity Problem RME/HPI General Chief complaint: Extremity Problem,Nontraumatic Stated complaint: BLE Time Seen by Provider: 05/12/25 19:45 Arrival date/time: 05/12/25 19:34 Limitations: no limitations RME / HPI RME / HPI Narrative: 45-year-old male who states he is primate here asking for a sandwich. He also endorses chronic bilateral, lower leg pain without any acute changes. There is been no falls or injuries. He is self ambulating at baseline. He has no other acute complaints. Related Data Previous Rx's ?Medication ?Instructions ?Recorded sulfamethoxazole 800 1 tab PO BID #14 tabs 03/09/23 mg-trimethoprim 160 mg tablet (Bactrim DS) cyclobenzaprine 5 mg tablet 5 mg PO TID PRN muscle spasm #30 07/23/23 tabs naproxen 500 mg tablet 500 mg PO BID PRN pain #30 tabs 07/23/23 naproxen 500 mg tablet 500 mg PO BID PRN pain #30 tabs 08/08/23 tamsulosin 0.4 mg capsule (Flomax) 0.4 mg PO QDAY #30 caps 08/08/23 baclofen 10 mg tablet 10 mg PO BID PRN muscle spasm #30 08/14/23 tabs naproxen 500 mg tablet 500 mg PO BID PRN pain #30 tabs 08/14/23 ibuprofen 800 mg tablet 800 mg PO TID PRN pain #30 tabs 08/28/23 ibuprofen 600 mg tablet 600 mg PO Q6H PRN pain #30 tabs 01/27/24 methocarbamol 500 mg tablet 1,000 mg (2 x 500 mg) PO Q8H PRN 01/27/24 pain #30 tabs naproxen 500 mg tablet (Naprosyn) 500 mg PO BID #14 tabs 03/15/24 ibuprofen 800 mg tablet 800 mg PO TID PRN pain #30 tabs 04/02/24 cyclobenzaprine 5 mg tablet 5 mg PO TID PRN muscle spasm #14 04/07/24 tabs ibuprofen 600 mg tablet 600 mg PO Q6H PRN fever or pain 04/07/24 #30 tabs ibuprofen 600 mg tablet 600 mg PO Q6H PRN pain #30 tabs 04/07/24 cyclobenzaprine 5 mg tablet 5 mg PO TID PRN muscle spasm #30 04/11/24 tabs naproxen 500 mg tablet 500 mg PO BID PRN pain #30 tabs 04/11/24 ibuprofen 600 mg tablet 600 mg PO Q8H PRN pain #20 tabs 11/03/24 acetaminophen 500 mg capsule 500 mg PO Q6H PRN pain #30 caps 12/03/24 acetaminophen 500 mg capsule 500 mg PO Q6H PRN pain #30 caps 12/15/24 cyclobenzaprine 5 mg tablet 5 mg PO TID PRN muscle spasm #15 12/20/24 tabs lidocaine 5 % topical patch 2 patch topical QDAY PRN pain #30 12/20/24 (Lidoderm) ea naproxen 500 mg tablet 500 mg PO BID PRN pain #14 tabs 04/04/25 Allergies Allergy/AdvReac Type Severity Reaction Status Date / Time No Known Allergies Allergy Verified 05/12/25 19:34 Review of Systems Review of Systems Systems Reviewed: All systems reviewed, normal except as documented ED Exam General Limitations: Present no limitations General appearance: Present alert and in no apparent distress Head Head exam: Present atraumatic Eye Eye exam: Present normal appearance, PERRL and EOMI ENT ENT exam: Present normal exam, normal oropharynx and mucous membranes moist Neck Neck exam: Present normal inspection, full ROM and trachea midline Chest Chest inspection: Present normal inspection and symmetric chest wall rise Respiratory Respiratory exam: Present normal lung sounds bilaterally Cardiovascular Cardiovascular exam: Present regular rate, normal rhythm and normal heart sounds Abdominal Exam Abdominal exam: Present soft and normal bowel sounds Extremities Exam Extremities exam: Present normal inspection and full ROM Back Exam Back exam: Present normal inspection and full ROM Neurological Exam Neurological exam: Present alert, oriented X3 and other (Patient is self ambulating without assistance. He has a shuffling gait that is his baseline.) Psychiatric Psychiatric exam: Present flat affect Skin Skin exam: Present warm, dry, intact and normal color Course Quality Measures none Extremity Problem MDM Narrative MDM Narrative:: 45-year-old male who states he is primate here asking for a sandwich. He also endorses chronic bilateral, lower leg pain without any acute changes. There is been no falls or injuries. He is self ambulating at baseline. He has no other acute complaints. Patient's vital signs are stable and he is in no visible signs distress. He has a shuffling gait that is baseline for him. Patient has no acute complaints. Patient will be discharged from the ER. He may return here for any emergent changes or concerns. Patient data External records reviewed:: [facility] previous records Clinical information provided by:: patient and EMS Social determinants that could affect healthcare access:: housing Patient has the following chronic illnesses:: Schizophrenia How is presenting disease/condition affected by chronic disease/condition?: exacerbated by Evaluation data The following diagnostics were reviewed and interpreted by me:: other (specify) (n/a) Lab and/or radiology exams considered but not ordered:: n/a Interpretation Summary: n/a Medications / Prescriptions Medications or Prescriptions considered but not ordered:: n/a Medication administrations:: n/a Consultations Consultation(s) initiated? (list below): No Diagnosis Most likely diagnosis given after review of the tests above:: n/a Admission Indicated Admission indicated?: not indicated Admission Request Was there a request for admission?: No Disposition Plan Disposition Plan: Discharge Discharge Attestation Discharge Attestation: The patient and all family members were given an opportunity to ask questions and understood the discharge instructions. Discharge instructions specifically effects, indications for sooner follow up or return to the emergency department, and the expected course of current diagnosis. Patient condition: Stable Discharge Plan Plan Patient Disposition: HOME (Self Care) Patient condition on transfer: Stable Prescriptions/Referrals Prescriptions/Med Rec: No Action naproxen 500 mg tablet 500 mg PO BID PRN (Reason: pain) Qty: 30 0RF cyclobenzaprine 5 mg tablet 5 mg PO TID PRN (Reason: muscle spasm) Qty: 30 0RF naproxen 500 mg tablet 500 mg PO BID PRN (Reason: pain) Qty: 30 0RF baclofen 10 mg tablet 10 mg PO BID PRN (Reason: muscle spasm) Qty: 30 0RF ibuprofen 800 mg tablet 800 mg PO TID PRN (Reason: pain) Qty: 30 0RF ibuprofen 800 mg tablet 800 mg PO TID PRN (Reason: pain) Qty: 30 0RF ibuprofen 600 mg tablet 600 mg PO Q6H PRN (Reason: pain) Qty: 30 0RF ibuprofen 600 mg tablet 600 mg PO Q8H PRN (Reason: pain) Qty: 20 0RF acetaminophen 500 mg capsule 500 mg PO Q6H PRN (Reason: pain) Qty: 30 0RF lidocaine [Lidoderm] 5 % adhesive patch,medicated 2 patch topical QDAY PRN (Reason: pain) Qty: 30 0RF Rx Instructions: leave on most painful area for up to 12 hrs cyclobenzaprine 5 mg tablet 5 mg PO TID PRN (Reason: muscle spasm) Qty: 15 0RF naproxen 500 mg tablet 500 mg PO BID PRN (Reason: pain) Qty: 14 0RF sulfamethoxazole-trimethoprim [Bactrim DS] 800-160 mg tablet 1 tab PO BID Qty: 14 0RF naproxen 500 mg tablet 500 mg PO BID PRN (Reason: pain) Qty: 30 0RF tamsulosin [Flomax] 0.4 mg capsule 0.4 mg PO QDAY Qty: 30 0RF ibuprofen 600 mg tablet 600 mg PO Q6H PRN (Reason: pain) Qty: 30 0RF methocarbamol 500 mg tablet 1,000 mg PO Q8H PRN (Reason: pain) Qty: 30 0RF naproxen [Naprosyn] 500 mg tablet 500 mg PO BID Qty: 14 0RF ibuprofen 600 mg tablet 600 mg PO Q6H PRN (Reason: fever or pain) Qty: 30 0RF cyclobenzaprine 5 mg tablet 5 mg PO TID PRN (Reason: muscle spasm) Qty: 14 0RF naproxen 500 mg tablet 500 mg PO BID PRN (Reason: pain) Qty: 30 0RF cyclobenzaprine 5 mg tablet 5 mg PO TID PRN (Reason: muscle spasm) Qty: 30 0RF acetaminophen 500 mg capsule 500 mg PO Q6H PRN (Reason: pain) Qty: 30 0RF Referrals: Lavell (PCP)Cody MD [Primary Care Provider] - In 1 week Problem List Clinical Impression: Chronic leg pain Patient/Caregiver Discharge Instructions Education Materials: ED Chronic Pain Additional Instructions: Follow-up with your clinic for manage care. Please return to the emergency room for any emergent concerns. Print Language: Bulgarian Stand Alone Forms: Tami Award Info., Patient Portal Info Letter
== END 2025-05-12 21:02 | disposition home or self-care (01) ==
PROVIDERS: Emergency Provider Emergency Medicine; PCP Family Medicine
DX: M79.662 Pain in left lower leg (principal); M79.661 Pain in right lower leg; G89.29 Other chronic pain
CPT/HCPCS: 99281

== ENCOUNTER 2025-05-13 06:44 | Emergency (ER) | payer MEDICAID, SELFPAY ==
[2025-05-13 06:46] VITALS: PULSE 75; RESP 18; O2SAT 99; BMI 28.1
[2025-05-13 06:51] VITALS: BP 147/90; PULSE 92; RESP 18; TEMP 36.8; O2SAT 97
--- NOTE | 2025-05-13 18:14 | EDNOTE_ITS ---
Lower Extremity Injury RME/HPI General Chief Complaint: Extremity Injury, Lower Stated Complaint: LEG PAIN Time Seen by Provider: 05/13/25 06:47 Arrival date/time: 05/13/25 06:44 45-year-old male who was is homeless presents to the emergency department today with complaints of bilateral leg pain requesting food Limitations: no limitations Related Data Previous Rx's ?Medication ?Instructions ?Recorded sulfamethoxazole 800 1 tab PO BID #14 tabs mg-trimethoprim 160 mg tablet (Bactrim DS) cyclobenzaprine 5 mg tablet 5 mg PO TID PRN muscle spa sm #30 07/23/23 tabs naproxen 500 mg tablet 500 mg PO BID PRN pain #30 t abs 07/23/23 naproxen 500 mg tablet 500 mg PO BID PRN pain #30 t abs 08/08/23 tamsulosin 0.4 mg capsule (Flomax) 0.4 mg PO QDAY #30 caps 08/08/23 baclofen 10 mg tablet 10 mg PO BID PRN muscle spas m #30 08/14/23 tabs naproxen 500 mg tablet 500 mg PO BID PRN pain #30 t abs 08/14/23 ibuprofen 800 mg tablet 800 mg PO TID PRN pain #30 t abs 08/28/23 ibuprofen 600 mg tablet 600 mg PO Q6H PRN pain #30 t abs 01/27/24 methocarbamol 500 mg tablet 1,000 mg (2 x 500 mg) PO Q 8H PRN 01/27/24 pain #30 tabs naproxen 500 mg tablet (Naprosyn) 500 mg PO BID #14 ta bs 03/15/24 ibuprofen 800 mg tablet 800 mg PO TID PRN pain #30 t abs 04/02/24 cyclobenzaprine 5 mg tablet 5 mg PO TID PRN muscle spa sm #14 04/07/24 tabs ibuprofen 600 mg tablet 600 mg PO Q6H PRN fever or p ain 04/07/24 #30 tabs ibuprofen 600 mg tablet 600 mg PO Q6H PRN pain #30 t abs 04/07/24 cyclobenzaprine 5 mg tablet 5 mg PO TID PRN muscle spa sm #30 04/11/24 tabs naproxen 500 mg tablet 500 mg PO BID PRN pain #30 t abs 04/11/24 ibuprofen 600 mg tablet 600 mg PO Q8H PRN pain #20 t abs 11/03/24 acetaminophen 500 mg capsule 500 mg PO Q6H PRN pain #3 0 caps 12/03/24 acetaminophen 500 mg capsule 500 mg PO Q6H PRN pain #3 0 caps 12/15/24 cyclobenzaprine 5 mg tablet 5 mg PO TID PRN muscle spa sm #15 12/20/24 tabs lidocaine 5 % topical patch 2 patch topical QDAY PRN p ain #30 12/20/24 (Lidoderm) ea naproxen 500 mg tablet 500 mg PO BID PRN pain #14 t abs 04/04/25 Allergies Allergy/AdvReac Type Severity Reaction Status Date / Time No Known Allergies Allergy Verified 05/13/25 06:48 Review of Systems Review of Systems Systems Reviewed: All systems reviewed, normal except as documented Constitutional Constitutional: Reports system reviewed and no additional complaints, except as documented, Denies fever(s) and Denies headache(s) Eyes Eyes: Reports system reviewed and no additional complaints, except as documented and Denies blurry vision ENT Ears, Nose, Mouth, and Throat: Reports system reviewed and no additional complaints, except as documented, Denies headache(s), Denies nasal congestion and Denies nasal discharge Cardiovascular Cardiovascular: Reports system reviewed and no additional complaints, except as documented, Denies chest pain and Denies dyspnea Respiratory Respiratory: Reports system reviewed and no additional complaints, except as documented, Denies chest congestion, Denies cough and Denies dyspnea Gastrointestinal Gastrointestinal: Reports system reviewed and no additional complaints, except as documented and Denies abdominal pain Musculoskeletal Musculoskeletal: Reports system reviewed and no additional complaints, except as documented, Reports arthralgias, Denies deformity, Denies numbness, Denies stiffness and Denies tingling Integumentary/Breasts Skin/Breast: Reports system reviewed and no additional complaints, except as documented and Denies rash Neurologic Neurologic: Reports system reviewed and no additional complaints, except as documented, Reports as per HPI, Denies headache(s), Denies numbness and Denies tingling Past Medical History Past Medical History NEUROLOGIC: Positive Cerebrovascular Accident; Negative Neurological Disorders CARDIAC: Positive Myocardial Infarction and Hypercholesterolemia; Negative Cardiac Disorders or Congestive Heart Failure RESPIRATORY: Negative Chronic Obstructive Pulmonary Disease (COPD) GASTROINTESTINAL: Negative Gastrointestinal Disorders GENITOURINARY: Negative Genitourinary Disorders or Renal Disease MUSCULOSKELETAL: Negative Musculoskeletal Disorders ENDOCRINE: Negative Endocrine Disorders, Diabetes Mellitus Type 1 or Diabetes Mellitus Type 2 HEMATOLOGIC: Negative Blood Disorders OTHER HISTORY: Negative Autoimmune Disease or Clostridium Difficile Social History SMOKING STATUS: Current some day smoker SUBSTANCE USE: methamphetamine ED Exam General Limitations: Present no limitations General appearance: Present alert and in no apparent distress Head Head exam: Present atraumatic Eye Eye exam: Present normal appearance, PERRL and EOMI; Absent conjunctival injection ENT ENT exam: Present normal exam, normal oropharynx and mucous membranes moist Neck Neck exam: Present normal inspection, full ROM and trachea midline Chest Chest inspection: Present normal inspection and symmetric chest wall rise Respiratory Respiratory exam: Present normal lung sounds bilaterally; Absent respiratory distress Cardiovascular Cardiovascular exam: Present regular rate, normal rhythm and normal heart sounds Abdominal Exam Abdominal exam: Present soft and normal bowel sounds; Absent distention, tenderness, guarding, rebound or rigidity Extremities Exam Extremities exam: Present normal inspection and full ROM Back Exam Back exam: Present normal inspection and full ROM Neurological Exam Neurological exam: Present alert, oriented X3, CN II-XII intact, normal gait and reflexes normal; Absent motor sensory deficit Psychiatric Psychiatric exam: Present normal affect and normal mood Skin Skin exam: Present warm, dry, intact and normal color Course Quality Measures none Vital Signs Vital signs: Vital Signs Temperature 98.2 F 05/13/25 06:51 Pulse Rate 92 05/13/25 06:51 Respiratory Rate 18 05/13/25 06:51 Blood Pressure 147/90 H 05/13/25 06:51 Pulse Oximetry (%) 97 05/13/25 06:51 Oxygen Delivery Method Room Air 05/13/25 06:51 O2 saturation 97% on room air WNL Extremity Injury, Lower MDM Narrative MDM Narrative:: 45-year-old male who was is homeless presents to the emergency department today with complaints of bilateral leg pain requesting food On exam patient well-appearing patient does not appear ill or toxic no acute distress Patient reports primarily here for food and water Patient discharged home in no distress to follow-up with primary care doctor in the next 24 to 48 hours and for any worsening symptoms to return to the ER immediately Patient data External records reviewed:: [facility] previous records Clinical information provided by:: patient Social determinants that could affect healthcare access:: none Patient has the following chronic illnesses:: None How is presenting disease/condition affected by chronic disease/condition?: no chronic disease Evaluation data The following diagnostics were reviewed and interpreted by me:: other (specify) (N/A) Lab and/or radiology exams considered but not ordered:: Considered not ordered Interpretation Summary: N/A Medications / Prescriptions Medications or Prescriptions considered but not ordered:: N/A Medication administrations:: N/A Consultations Consultation(s) initiated? (list below): No Diagnosis Extremity Injury, Lower Differential Diagnosis: other (Bilateral leg pain, homelessness) Most likely diagnosis given after review of the tests above:: Bilateral leg pain, homelessness Admission Indicated Admission indicated?: not indicated Admission Request Was there a request for admission?: No Disposition Plan Disposition Plan: Discharge Discharge Attestation Discharge Attestation: The patient and all family members were given an opportunity to ask questions and understood the discharge instructions. Discharge instructions specifically effects, indications for sooner follow up or return to the emergency department, and the expected course of current diagnosis. Patient condition: Stable Discharge Plan Plan Patient Disposition: HOME (Self Care) Discharge Disposition comment: Stable Prescriptions/Referrals Prescriptions/Med Rec: No Action naproxen 500 mg tablet 500 mg PO BID PRN (Reason: pain) Qty: 30 0RF cyclobenzaprine 5 mg tablet 5 mg PO TID PRN (Reason: muscle spasm) Qty: 30 0RF naproxen 500 mg tablet 500 mg PO BID PRN (Reason: pain) Qty: 30 0RF baclofen 10 mg tablet 10 mg PO BID PRN (Reason: muscle spasm) Qty: 30 0RF ibuprofen 800 mg tablet 800 mg PO TID PRN (Reason: pain) Qty: 30 0RF ibuprofen 800 mg tablet 800 mg PO TID PRN (Reason: pain) Qty: 30 0RF ibuprofen 600 mg tablet 600 mg PO Q6H PRN (Reason: pain) Qty: 30 0RF ibuprofen 600 mg tablet 600 mg PO Q8H PRN (Reason: pain) Qty: 20 0RF acetaminophen 500 mg capsule 500 mg PO Q6H PRN (Reason: pain) Qty: 30 0RF lidocaine [Lidoderm] 5 % adhesive patch,medicated 2 patch topical QDAY PRN (Reason: pain) Qty: 30 0RF Rx Instructions: leave on most painful area for up to 12 hrs cyclobenzaprine 5 mg tablet 5 mg PO TID PRN (Reason: muscle spasm) Qty: 15 0RF naproxen 500 mg tablet 500 mg PO BID PRN (Reason: pain) Qty: 14 0RF sulfamethoxazole-trimethoprim [Bactrim DS] 800-160 mg tablet 1 tab PO BID Qty: 14 0RF naproxen 500 mg tablet 500 mg PO BID PRN (Reason: pain) Qty: 30 0RF tamsulosin [Flomax] 0.4 mg capsule 0.4 mg PO QDAY Qty: 30 0RF ibuprofen 600 mg tablet 600 mg PO Q6H PRN (Reason: pain) Qty: 30 0RF methocarbamol 500 mg tablet 1,000 mg PO Q8H PRN (Reason: pain) Qty: 30 0RF naproxen [Naprosyn] 500 mg tablet 500 mg PO BID Qty: 14 0RF ibuprofen 600 mg tablet 600 mg PO Q6H PRN (Reason: fever or pain) Qty: 30 0RF cyclobenzaprine 5 mg tablet 5 mg PO TID PRN (Reason: muscle spasm) Qty: 14 0RF naproxen 500 mg tablet 500 mg PO BID PRN (Reason: pain) Qty: 30 0RF cyclobenzaprine 5 mg tablet 5 mg PO TID PRN (Reason: muscle spasm) Qty: 30 0RF acetaminophen 500 mg capsule 500 mg PO Q6H PRN (Reason: pain) Qty: 30 0RF Referrals: No Primary/Family,Physician [Primary Care Provider] - In 1 week Problem List Clinical Impression: Bilateral leg pain, Homeless Patient/Caregiver Discharge Instructions Education Materials: ED Myalgias Additional Instructions: Please follow up with your primary care doctor in the next 24-48hrs for any worsening symptoms return here immediately Print Language: [place] Stand Alone Forms: [employer] Award Info., Patient Portal Info Letter PA/POLICE MATRON Supervising Physician PA/POLICE MATRON Supervising Physician: dr sotomayor
== END 2025-05-13 19:00 | disposition home or self-care (01) ==
PROVIDERS: Emergency Provider Family Medicine
DX: M79.605 Pain in left leg (principal); M79.604 Pain in right leg; Z59.00 Homelessness unspecified
CPT/HCPCS: 99281

== ENCOUNTER 2025-05-13 19:43 | Emergency (ER) | payer MEDICAID, SELFPAY ==
[2025-05-13 19:43] VITALS: PULSE 88; RESP 18; O2SAT 98; BMI 26.6
[2025-05-13 20:14] VITALS: BP 130/82; PULSE 98; RESP 18; TEMP 36.9; O2SAT 95
--- NOTE | 2025-05-13 20:23 | PC.NURSE ---
SEEN BY [employer]
== END 2025-05-13 20:24 | disposition left against medical advice (07) ==
LOC: SERX 20:00
PROVIDERS: Emergency Provider Emergency Medicine; PCP Family Medicine
DX: Z53.21 Procedure and treatment not carried out due to patient leaving prior to being seen by health care provider (principal)
CPT/HCPCS: 99281

== ENCOUNTER 2025-05-26 20:08 | Emergency (ER) | payer MEDICAID, SELFPAY ==
--- NOTE | 2025-05-26 23:32 | PC.NURSE ---
No answer when called in the lobby
--- NOTE | 2025-05-26 23:33 | PD.EDADDENDU ---
Emergency Room Addendum Addendum Narrative: When I looked for the patient to start my evaluation, I was told the patient eloped. Stephen Gallardo MD
--- NOTE | 2025-05-27 00:50 | PC.NURSE ---
PT CALLED FROM THE LOBBY X2 WITH NO ANSWER
--- NOTE | 2025-05-27 01:05 | PC.NURSE ---
pt called from the lobby x3 with no answer
== END 2025-05-27 01:05 | disposition left against medical advice (07) ==
PROVIDERS: Emergency Provider Emergency Medicine
DX: Z53.21 Procedure and treatment not carried out due to patient leaving prior to being seen by health care provider (principal)

== ENCOUNTER 2025-05-27 08:48 | Emergency (ER) | payer MEDICAID, SELFPAY ==
[2025-05-27 08:48] VITALS: PULSE 82; RESP 20; O2SAT 99; BMI 30.4
[2025-05-27 09:01] VITALS: BP 120/86; PULSE 85; RESP 17; TEMP 36.9; O2SAT 96
--- NOTE | 2025-05-27 14:35 | EDNOTE_ITS ---
Lower Extremity Injury RME/HPI General Chief Complaint: Extremity Injury, Lower Stated Complaint: LEG PAIN Time Seen by Provider: 05/27/25 08:48 Source: patient Arrival date/time: 05/27/25 08:48 Limitations: other RME / HPI RME / HPI Narrative: 45-year-old male who is here today for chronic pain with no acute changes. No lower leg edema. No open wounds. He has no other acute concerns. Patient is well-known to our ER. Related Data Previous Rx's ?Medication ?Instructions ?Recorded sulfamethoxazole 800 1 tab PO BID #14 tabs mg-trimethoprim 160 mg tablet (Bactrim DS) cyclobenzaprine 5 mg tablet 5 mg PO TID PRN muscle spa sm #30 07/23/23 tabs naproxen 500 mg tablet 500 mg PO BID PRN pain #30 t abs 07/23/23 naproxen 500 mg tablet 500 mg PO BID PRN pain #30 t abs 08/08/23 tamsulosin 0.4 mg capsule (Flomax) 0.4 mg PO QDAY #30 caps 08/08/23 baclofen 10 mg tablet 10 mg PO BID PRN muscle spas m #30 08/14/23 tabs naproxen 500 mg tablet 500 mg PO BID PRN pain #30 t abs 08/14/23 ibuprofen 800 mg tablet 800 mg PO TID PRN pain #30 t abs 08/28/23 ibuprofen 600 mg tablet 600 mg PO Q6H PRN pain #30 t abs 01/27/24 methocarbamol 500 mg tablet 1,000 mg (2 x 500 mg) PO Q 8H PRN 01/27/24 pain #30 tabs naproxen 500 mg tablet (Naprosyn) 500 mg PO BID #14 ta bs 03/15/24 ibuprofen 800 mg tablet 800 mg PO TID PRN pain #30 t abs 04/02/24 cyclobenzaprine 5 mg tablet 5 mg PO TID PRN muscle spa sm #14 04/07/24 tabs ibuprofen 600 mg tablet 600 mg PO Q6H PRN fever or p ain 04/07/24 #30 tabs ibuprofen 600 mg tablet 600 mg PO Q6H PRN pain #30 t abs 04/07/24 cyclobenzaprine 5 mg tablet 5 mg PO TID PRN muscle spa sm #30 04/11/24 tabs naproxen 500 mg tablet 500 mg PO BID PRN pain #30 t abs 04/11/24 ibuprofen 600 mg tablet 600 mg PO Q8H PRN pain #20 t abs 11/03/24 acetaminophen 500 mg capsule 500 mg PO Q6H PRN pain #3 0 caps 12/03/24 acetaminophen 500 mg capsule 500 mg PO Q6H PRN pain #3 0 caps 12/15/24 cyclobenzaprine 5 mg tablet 5 mg PO TID PRN muscle spa sm #15 12/20/24 tabs lidocaine 5 % topical patch 2 patch topical QDAY PRN p ain #30 12/20/24 (Lidoderm) ea naproxen 500 mg tablet 500 mg PO BID PRN pain #14 t abs 04/04/25 Allergies Allergy/AdvReac Type Severity Reaction Status Date / Time No Known Allergies Allergy Verified 05/27/25 08:51 Review of Systems Review of Systems Systems Reviewed: All systems reviewed, normal except as documented ED Exam General Limitations: Present other General appearance: Present alert, in no apparent distress and other (Unkempt) Head Head exam: Present atraumatic Eye Eye exam: Present normal appearance, PERRL and EOMI ENT ENT exam: Present normal exam, normal oropharynx and mucous membranes moist Neck Neck exam: Present normal inspection, full ROM and trachea midline Chest Chest inspection: Present normal inspection and symmetric chest wall rise Respiratory Respiratory exam: Present normal lung sounds bilaterally Cardiovascular Cardiovascular exam: Present regular rate, normal rhythm and normal heart sounds Abdominal Exam Abdominal exam: Present soft and normal bowel sounds Extremities Exam Extremities exam: Present normal inspection and full ROM Back Exam Back exam: Present normal inspection and full ROM Neurological Exam Neurological exam: Present alert, oriented X3 and other (He is self ambulating. He has a shuffling gait that is his baseline.) Psychiatric Psychiatric exam: Present normal affect and normal mood Skin Skin exam: Present warm, dry, intact and normal color Course Quality Measures none Vital Signs Vital signs: Vital Signs Temperature 98.5 F 05/27/25 09:01 Pulse Rate 85 05/27/25 09:01 Respiratory Rate 17 05/27/25 09:01 Blood Pressure 120/86 H 05/27/25 09:01 Pulse Oximetry (%) 96 05/27/25 09:01 Oxygen Delivery Method Room Air 05/27/25 09:01 Extremity Injury, Lower MDM Narrative MDM Narrative:: 45-year-old male is here today with chronic leg pain with no acute changes. Patient started ER frequent for this. He denies any recent injuries. Has no lower leg edema or wounds. His vital signs are stable. He is walking at baseline. Patient will be discharged from the ER. He is asked to follow-up with his primary doctor as needed. Return here for emergent concerns. Patient data External records reviewed:: [facility] previous records Clinical information provided by:: patient Social determinants that could affect healthcare access:: none Patient has the following chronic illnesses:: Chronic mental health disease How is presenting disease/condition affected by chronic disease/condition?: exacerbated by Evaluation data The following diagnostics were reviewed and interpreted by me:: other (specify) (n/a) Lab and/or radiology exams considered but not ordered:: see above Interpretation Summary: n/a Medications / Prescriptions Medications or Prescriptions considered but not ordered:: n/a Medication administrations:: n/a Consultations Consultation(s) initiated? (list below): No Diagnosis Extremity Injury, Lower Differential Diagnosis: ankle sprain and strain and ankle fracture Most likely diagnosis given after review of the tests above:: Chronic leg pain Admission Indicated Admission indicated?: not indicated Admission Request Was there a request for admission?: No Disposition Plan Disposition Plan: Discharge Discharge Attestation Discharge Attestation: The patient and all family members were given an opportunity to ask questions and understood the discharge instructions. Discharge instructions specifically effects, indications for sooner follow up or return to the emergency department, and the expected course of current diagnosis. Patient condition: Stable Discharge Plan Plan Patient Disposition: HOME (Self Care) Patient condition on transfer: Stable Prescriptions/Referrals Prescriptions/Med Rec: No Action naproxen 500 mg tablet 500 mg PO BID PRN (Reason: pain) Qty: 30 0RF cyclobenzaprine 5 mg tablet 5 mg PO TID PRN (Reason: muscle spasm) Qty: 30 0RF naproxen 500 mg tablet 500 mg PO BID PRN (Reason: pain) Qty: 30 0RF baclofen 10 mg tablet 10 mg PO BID PRN (Reason: muscle spasm) Qty: 30 0RF ibuprofen 800 mg tablet 800 mg PO TID PRN (Reason: pain) Qty: 30 0RF ibuprofen 800 mg tablet 800 mg PO TID PRN (Reason: pain) Qty: 30 0RF ibuprofen 600 mg tablet 600 mg PO Q6H PRN (Reason: pain) Qty: 30 0RF ibuprofen 600 mg tablet 600 mg PO Q8H PRN (Reason: pain) Qty: 20 0RF acetaminophen 500 mg capsule 500 mg PO Q6H PRN (Reason: pain) Qty: 30 0RF lidocaine [Lidoderm] 5 % adhesive patch,medicated 2 patch topical QDAY PRN (Reason: pain) Qty: 30 0RF Rx Instructions: leave on most painful area for up to 12 hrs cyclobenzaprine 5 mg tablet 5 mg PO TID PRN (Reason: muscle spasm) Qty: 15 0RF naproxen 500 mg tablet 500 mg PO BID PRN (Reason: pain) Qty: 14 0RF sulfamethoxazole-trimethoprim [Bactrim DS] 800-160 mg tablet 1 tab PO BID Qty: 14 0RF naproxen 500 mg tablet 500 mg PO BID PRN (Reason: pain) Qty: 30 0RF tamsulosin [Flomax] 0.4 mg capsule 0.4 mg PO QDAY Qty: 30 0RF ibuprofen 600 mg tablet 600 mg PO Q6H PRN (Reason: pain) Qty: 30 0RF methocarbamol 500 mg tablet 1,000 mg PO Q8H PRN (Reason: pain) Qty: 30 0RF naproxen [Naprosyn] 500 mg tablet 500 mg PO BID Qty: 14 0RF ibuprofen 600 mg tablet 600 mg PO Q6H PRN (Reason: fever or pain) Qty: 30 0RF cyclobenzaprine 5 mg tablet 5 mg PO TID PRN (Reason: muscle spasm) Qty: 14 0RF naproxen 500 mg tablet 500 mg PO BID PRN (Reason: pain) Qty: 30 0RF cyclobenzaprine 5 mg tablet 5 mg PO TID PRN (Reason: muscle spasm) Qty: 30 0RF acetaminophen 500 mg capsule 500 mg PO Q6H PRN (Reason: pain) Qty: 30 0RF Referrals: Lavell (PCP)Cody MD [Primary Care Provider] - In 1 week Problem List Clinical Impression: Chronic leg pain Patient/Caregiver Discharge Instructions Education Materials: ED Chronic Pain Additional Instructions: - Follow-up with your primary clinic. - Return here as needed for any worsening or emergent changes. Print Language: Slovak Stand Alone Forms: [employer] Info., Patient Portal Info Letter
[2025-05-27 14:40] VITALS: BP 122/82; PULSE 80; RESP 18; TEMP 36.9; O2SAT 98
== END 2025-05-27 14:42 | disposition home or self-care (01) ==
PROVIDERS: Emergency Provider Family Medicine; PCP Family Medicine
DX: M79.606 Pain in leg, unspecified (principal); G89.29 Other chronic pain
CPT/HCPCS: 99283

== ENCOUNTER 2025-05-27 18:23 | Emergency (ER) | payer MEDICAID, SELFPAY ==
[2025-05-27 18:23] VITALS: PULSE 86; O2SAT 98
[2025-05-27 18:26] VITALS: BP 125/86; PULSE 89; RESP 18; TEMP 37; O2SAT 96; BMI 27.3
--- NOTE | 2025-05-27 18:26 | PD.EDLOWEX ---
Lower Extremity Injury RME/HPI General Chief Complaint: Extremity Injury, Lower Stated Complaint: BILATERAL LEG PAIN Time Seen by Provider: 05/27/25 18:25 Arrival date/time: 05/27/25 18:23 Limitations: no limitations RME / HPI RME / HPI Narrative: Here today with chronic leg pain without acute injuries. He was seen here earlier for this. He is ambulating at baseline. Has no lower leg weakness. Related Data Previous Rx's ?Medication ?Instructions ?Recorded sulfamethoxazole 800 1 tab PO BID #14 tabs 03/09/23 mg-trimethoprim 160 mg tablet (Bactrim DS) cyclobenzaprine 5 mg tablet 5 mg PO TID PRN muscle spasm #30 07/23/23 tabs naproxen 500 mg tablet 500 mg PO BID PRN pain #30 tabs 07/23/23 naproxen 500 mg tablet 500 mg PO BID PRN pain #30 tabs 08/08/23 tamsulosin 0.4 mg capsule (Flomax) 0.4 mg PO QDAY #30 caps 08/08/23 baclofen 10 mg tablet 10 mg PO BID PRN muscle spasm #30 08/14/23 tabs naproxen 500 mg tablet 500 mg PO BID PRN pain #30 tabs 08/14/23 ibuprofen 800 mg tablet 800 mg PO TID PRN pain #30 tabs 08/28/23 ibuprofen 600 mg tablet 600 mg PO Q6H PRN pain #30 tabs 01/27/24 methocarbamol 500 mg tablet 1,000 mg (2 x 500 mg) PO Q8H PRN 01/27/24 pain #30 tabs naproxen 500 mg tablet (Naprosyn) 500 mg PO BID #14 tabs 03/15/24 ibuprofen 800 mg tablet 800 mg PO TID PRN pain #30 tabs 04/02/24 cyclobenzaprine 5 mg tablet 5 mg PO TID PRN muscle spasm #14 04/07/24 tabs ibuprofen 600 mg tablet 600 mg PO Q6H PRN fever or pain 04/07/24 #30 tabs ibuprofen 600 mg tablet 600 mg PO Q6H PRN pain #30 tabs 04/07/24 cyclobenzaprine 5 mg tablet 5 mg PO TID PRN muscle spasm #30 04/11/24 tabs naproxen 500 mg tablet 500 mg PO BID PRN pain #30 tabs 04/11/24 ibuprofen 600 mg tablet 600 mg PO Q8H PRN pain #20 tabs 11/03/24 acetaminophen 500 mg capsule 500 mg PO Q6H PRN pain #30 caps 12/03/24 acetaminophen 500 mg capsule 500 mg PO Q6H PRN pain #30 caps 12/15/24 cyclobenzaprine 5 mg tablet 5 mg PO TID PRN muscle spasm #15 12/20/24 tabs lidocaine 5 % topical patch 2 patch topical QDAY PRN pain #30 12/20/24 (Lidoderm) ea naproxen 500 mg tablet 500 mg PO BID PRN pain #14 tabs 04/04/25 Allergies Allergy/AdvReac Type Severity Reaction Status Date / Time No Known Allergies Allergy Verified 05/27/25 18:25 Review of Systems Review of Systems Systems Reviewed: All systems reviewed, normal except as documented ED Exam General Limitations: Present no limitations General appearance: Present alert and in no apparent distress Head Head exam: Present atraumatic Eye Eye exam: Present normal appearance, PERRL and EOMI ENT ENT exam: Present normal exam, normal oropharynx and mucous membranes moist Neck Neck exam: Present normal inspection, full ROM and trachea midline Chest Chest inspection: Present normal inspection and symmetric chest wall rise Respiratory Respiratory exam: Present normal lung sounds bilaterally Cardiovascular Cardiovascular exam: Present regular rate, normal rhythm and normal heart sounds Abdominal Exam Abdominal exam: Present soft and normal bowel sounds Extremities Exam Extremities exam: Present normal inspection and full ROM Back Exam Back exam: Present normal inspection and full ROM Neurological Exam Neurological exam: Present alert, oriented X3 and other (He is self ambulating without acute gait changes. ) Psychiatric Psychiatric exam: Present other (affect flat ) Skin Skin exam: Present warm, dry, intact and normal color Course Quality Measures none Vital Signs Vital signs: Vital Signs Temperature 98.6 F 05/27/25 18:26 Pulse Rate 89 05/27/25 18:26 Respiratory Rate 18 05/27/25 18:26 Blood Pressure 125/86 H 05/27/25 18:26 Pulse Oximetry (%) 96 05/27/25 18:26 Oxygen Delivery Method Room Air 05/27/25 18:26 Extremity Injury, Lower MDM Narrative MDM Narrative:: Here today with chronic leg pain without acute injuries. He was seen here earlier for this. He is ambulating at baseline. Has no lower leg weakness. His vital signs are stable. Patient data External records reviewed:: [facility] previous records Clinical information provided by:: patient and EMS Social determinants that could affect healthcare access:: mental health Patient has the following chronic illnesses:: schizoaffective How is presenting disease/condition affected by chronic disease/condition?: exacerbated by Evaluation data The following diagnostics were reviewed and interpreted by me:: other (specify) (n/a) Lab and/or radiology exams considered but not ordered:: n/a Interpretation Summary: n/a Medications / Prescriptions Medications or Prescriptions considered but not ordered:: n/a Medication administrations:: n/a Consultations Consultation(s) initiated? (list below): No Diagnosis Extremity Injury, Lower Differential Diagnosis: ankle sprain and strain Most likely diagnosis given after review of the tests above:: chronic leg pain Admission Indicated Admission indicated?: not indicated Admission Request Was there a request for admission?: No Disposition Plan Disposition Plan: Discharge Discharge Attestation Discharge Attestation: The patient and all family members were given an opportunity to ask questions and understood the discharge instructions. Discharge instructions specifically effects, indications for sooner follow up or return to the emergency department, and the expected course of current diagnosis. Patient condition: Stable Discharge Plan Plan Patient Disposition: HOME (Self Care) Patient condition on transfer: Stable Prescriptions/Referrals Prescriptions/Med Rec: No Action naproxen 500 mg tablet 500 mg PO BID PRN (Reason: pain) Qty: 30 0RF cyclobenzaprine 5 mg tablet 5 mg PO TID PRN (Reason: muscle spasm) Qty: 30 0RF naproxen 500 mg tablet 500 mg PO BID PRN (Reason: pain) Qty: 30 0RF baclofen 10 mg tablet 10 mg PO BID PRN (Reason: muscle spasm) Qty: 30 0RF ibuprofen 800 mg tablet 800 mg PO TID PRN (Reason: pain) Qty: 30 0RF ibuprofen 800 mg tablet 800 mg PO TID PRN (Reason: pain) Qty: 30 0RF ibuprofen 600 mg tablet 600 mg PO Q6H PRN (Reason: pain) Qty: 30 0RF ibuprofen 600 mg tablet 600 mg PO Q8H PRN (Reason: pain) Qty: 20 0RF acetaminophen 500 mg capsule 500 mg PO Q6H PRN (Reason: pain) Qty: 30 0RF lidocaine [Lidoderm] 5 % adhesive patch,medicated 2 patch topical QDAY PRN (Reason: pain) Qty: 30 0RF Rx Instructions: leave on most painful area for up to 12 hrs cyclobenzaprine 5 mg tablet 5 mg PO TID PRN (Reason: muscle spasm) Qty: 15 0RF naproxen 500 mg tablet 500 mg PO BID PRN (Reason: pain) Qty: 14 0RF sulfamethoxazole-trimethoprim [Bactrim DS] 800-160 mg tablet 1 tab PO BID Qty: 14 0RF naproxen 500 mg tablet 500 mg PO BID PRN (Reason: pain) Qty: 30 0RF tamsulosin [Flomax] 0.4 mg capsule 0.4 mg PO QDAY Qty: 30 0RF ibuprofen 600 mg tablet 600 mg PO Q6H PRN (Reason: pain) Qty: 30 0RF methocarbamol 500 mg tablet 1,000 mg PO Q8H PRN (Reason: pain) Qty: 30 0RF naproxen [Naprosyn] 500 mg tablet 500 mg PO BID Qty: 14 0RF ibuprofen 600 mg tablet 600 mg PO Q6H PRN (Reason: fever or pain) Qty: 30 0RF cyclobenzaprine 5 mg tablet 5 mg PO TID PRN (Reason: muscle spasm) Qty: 14 0RF naproxen 500 mg tablet 500 mg PO BID PRN (Reason: pain) Qty: 30 0RF cyclobenzaprine 5 mg tablet 5 mg PO TID PRN (Reason: muscle spasm) Qty: 30 0RF acetaminophen 500 mg capsule 500 mg PO Q6H PRN (Reason: pain) Qty: 30 0RF Problem List Clinical Impression: Chronic leg pain Patient/Caregiver Discharge Instructions Education Materials: Communicating About Pain Additional Instructions: -Follow up with your clinic. -Return to the ER for emergent changes. Print Language: Citizen [place] Stand Alone Forms: [employer] Award Info., Patient Portal Info Letter
== END 2025-05-27 19:11 | disposition home or self-care (01) ==
PROVIDERS: Emergency Provider Emergency Medicine; PCP Family Medicine
DX: M79.604 Pain in right leg (principal); M79.605 Pain in left leg; G89.29 Other chronic pain
CPT/HCPCS: 99283

== ENCOUNTER 2025-05-27 20:58 | Emergency (ER) | payer MEDICAID, SELFPAY ==
--- NOTE | 2025-05-27 21:00 | EDNOTE_ITS ---
Lower Extremity Injury RME/HPI General Chief Complaint: Extremity Injury, Lower Stated Complaint: LEGS HURT Time Seen by Provider: 05/27/25 21:00 Source: patient Arrival date/time: 05/27/25 20:58 Mode of arrival: ambulatory Limitations: no limitations RME / HPI RME / HPI Narrative: Here today with chronic leg pain without acute injuries. He has been discharged twice for this today. He is ambulating at baseline. Has no lower leg weakness. Related Data Previous Rx's ?Medication ?Instructions ?Recorded sulfamethoxazole 800 1 tab PO BID #14 tabs mg-trimethoprim 160 mg tablet (Bactrim DS) cyclobenzaprine 5 mg tablet 5 mg PO TID PRN muscle spa sm #30 07/23/23 tabs naproxen 500 mg tablet 500 mg PO BID PRN pain #30 t abs 07/23/23 naproxen 500 mg tablet 500 mg PO BID PRN pain #30 t abs 08/08/23 tamsulosin 0.4 mg capsule (Flomax) 0.4 mg PO QDAY #30 caps 08/08/23 baclofen 10 mg tablet 10 mg PO BID PRN muscle spas m #30 08/14/23 tabs naproxen 500 mg tablet 500 mg PO BID PRN pain #30 t abs 08/14/23 ibuprofen 800 mg tablet 800 mg PO TID PRN pain #30 t abs 08/28/23 ibuprofen 600 mg tablet 600 mg PO Q6H PRN pain #30 t abs 01/27/24 methocarbamol 500 mg tablet 1,000 mg (2 x 500 mg) PO Q 8H PRN 01/27/24 pain #30 tabs naproxen 500 mg tablet (Naprosyn) 500 mg PO BID #14 ta bs 03/15/24 ibuprofen 800 mg tablet 800 mg PO TID PRN pain #30 t abs 04/02/24 cyclobenzaprine 5 mg tablet 5 mg PO TID PRN muscle spa sm #14 04/07/24 tabs ibuprofen 600 mg tablet 600 mg PO Q6H PRN fever or p ain 04/07/24 #30 tabs ibuprofen 600 mg tablet 600 mg PO Q6H PRN pain #30 t abs 04/07/24 cyclobenzaprine 5 mg tablet 5 mg PO TID PRN muscle spa sm #30 04/11/24 tabs naproxen 500 mg tablet 500 mg PO BID PRN pain #30 t abs 04/11/24 ibuprofen 600 mg tablet 600 mg PO Q8H PRN pain #20 t abs 11/03/24 acetaminophen 500 mg capsule 500 mg PO Q6H PRN pain #3 0 caps 12/03/24 acetaminophen 500 mg capsule 500 mg PO Q6H PRN pain #3 0 caps 12/15/24 cyclobenzaprine 5 mg tablet 5 mg PO TID PRN muscle spa sm #15 12/20/24 tabs lidocaine 5 % topical patch 2 patch topical QDAY PRN p ain #30 12/20/24 (Lidoderm) ea naproxen 500 mg tablet 500 mg PO BID PRN pain #14 t abs 04/04/25 Allergies Allergy/AdvReac Type Severity Reaction Status Date / Time No Known Allergies Allergy Verified 05/27/25 21:01 Review of Systems Review of Systems Systems Reviewed: All systems reviewed, normal except as documented ED Exam General Limitations: Present no limitations General appearance: Present alert and in no apparent distress Head Head exam: Present atraumatic Eye Eye exam: Present normal appearance, PERRL and EOMI ENT ENT exam: Present normal exam, normal oropharynx and mucous membranes moist Neck Neck exam: Present normal inspection, full ROM and trachea midline Chest Chest inspection: Present normal inspection and symmetric chest wall rise Respiratory Respiratory exam: Present normal lung sounds bilaterally Cardiovascular Cardiovascular exam: Present regular rate, normal rhythm and normal heart sounds Abdominal Exam Abdominal exam: Present soft and normal bowel sounds Extremities Exam Extremities exam: Present normal inspection and full ROM Back Exam Back exam: Present normal inspection and full ROM Neurological Exam Neurological exam: Present alert and oriented X3 Psychiatric Psychiatric exam: Present normal affect and normal mood Skin Skin exam: Present warm, dry, intact and normal color Course Quality Measures none Extremity Injury, Lower MDM Narrative MDM Narrative:: Here today with chronic leg pain without acute injuries. He has been discharged twice for this today. He is ambulating at baseline. Has no lower leg weakness. He will be discharged for outpatient follow up. Patient data External records reviewed:: [facility] previous records Clinical information provided by:: patient Social determinants that could affect healthcare access:: housing Patient has the following chronic illnesses:: schizophrenia How is presenting disease/condition affected by chronic disease/condition?: exacerbated by Evaluation data The following diagnostics were reviewed and interpreted by me:: other (specify) (n/a) Lab and/or radiology exams considered but not ordered:: n/a Interpretation Summary: n/a Medications / Prescriptions Medications or Prescriptions considered but not ordered:: n/a Medication administrations:: n/a Consultations Consultation(s) initiated? (list below): No Diagnosis Extremity Injury, Lower Differential Diagnosis: ankle sprain and strain Most likely diagnosis given after review of the tests above:: chronic pain Admission Indicated Admission indicated?: not indicated Admission Request Was there a request for admission?: No Disposition Plan Disposition Plan: Discharge Discharge Attestation Discharge Attestation: The patient and all family members were given an opportunity to ask questions and understood the discharge instructions. Discharge instructions specifically effects, indications for sooner follow up or return to the emergency department, and the expected course of current diagnosis. Patient condition: Stable Discharge Plan Plan Patient Disposition: HOME (Self Care) Patient condition on transfer: Stable Prescriptions/Referrals Prescriptions/Med Rec: No Action naproxen 500 mg tablet 500 mg PO BID PRN (Reason: pain) Qty: 30 0RF cyclobenzaprine 5 mg tablet 5 mg PO TID PRN (Reason: muscle spasm) Qty: 30 0RF naproxen 500 mg tablet 500 mg PO BID PRN (Reason: pain) Qty: 30 0RF baclofen 10 mg tablet 10 mg PO BID PRN (Reason: muscle spasm) Qty: 30 0RF ibuprofen 800 mg tablet 800 mg PO TID PRN (Reason: pain) Qty: 30 0RF ibuprofen 800 mg tablet 800 mg PO TID PRN (Reason: pain) Qty: 30 0RF ibuprofen 600 mg tablet 600 mg PO Q6H PRN (Reason: pain) Qty: 30 0RF ibuprofen 600 mg tablet 600 mg PO Q8H PRN (Reason: pain) Qty: 20 0RF acetaminophen 500 mg capsule 500 mg PO Q6H PRN (Reason: pain) Qty: 30 0RF lidocaine [Lidoderm] 5 % adhesive patch,medicated 2 patch topical QDAY PRN (Reason: pain) Qty: 30 0RF Rx Instructions: leave on most painful area for up to 12 hrs cyclobenzaprine 5 mg tablet 5 mg PO TID PRN (Reason: muscle spasm) Qty: 15 0RF naproxen 500 mg tablet 500 mg PO BID PRN (Reason: pain) Qty: 14 0RF sulfamethoxazole-trimethoprim [Bactrim DS] 800-160 mg tablet 1 tab PO BID Qty: 14 0RF naproxen 500 mg tablet 500 mg PO BID PRN (Reason: pain) Qty: 30 0RF tamsulosin [Flomax] 0.4 mg capsule 0.4 mg PO QDAY Qty: 30 0RF ibuprofen 600 mg tablet 600 mg PO Q6H PRN (Reason: pain) Qty: 30 0RF methocarbamol 500 mg tablet 1,000 mg PO Q8H PRN (Reason: pain) Qty: 30 0RF naproxen [Naprosyn] 500 mg tablet 500 mg PO BID Qty: 14 0RF ibuprofen 600 mg tablet 600 mg PO Q6H PRN (Reason: fever or pain) Qty: 30 0RF cyclobenzaprine 5 mg tablet 5 mg PO TID PRN (Reason: muscle spasm) Qty: 14 0RF naproxen 500 mg tablet 500 mg PO BID PRN (Reason: pain) Qty: 30 0RF cyclobenzaprine 5 mg tablet 5 mg PO TID PRN (Reason: muscle spasm) Qty: 30 0RF acetaminophen 500 mg capsule 500 mg PO Q6H PRN (Reason: pain) Qty: 30 0RF Problem List Clinical Impression: Chronic pain Patient/Caregiver Discharge Instructions Education Materials: ED Chronic Pain Additional Instructions: -Follow up with your primary doctor. -Return here as needed for any emergent changes. Print Language: [place] Stand Alone Forms: [employer] Award Info., Patient Portal Info Letter
[2025-05-27 21:15] VITALS: BP 130/81; PULSE 88; RESP 18; TEMP 36.9; O2SAT 96
== END 2025-05-27 22:47 | disposition home or self-care (01) ==
PROVIDERS: Emergency Provider Emergency Medicine; PCP Family Medicine
DX: M79.606 Pain in leg, unspecified (principal); G89.29 Other chronic pain
CPT/HCPCS: 99283

== ENCOUNTER 2025-05-28 05:01 | Emergency (ER) | payer MEDICAID, SELFPAY ==
[2025-05-28 05:08] VITALS: BP 127/82; PULSE 93; RESP 18; TEMP 36.8; O2SAT 98
[2025-05-28 05:22] VITALS: BMI 24.3
--- NOTE | 2025-05-28 06:38 | PC.NURSE ---
PT ASLEEP IN A WC IN THE LOBBY.
--- NOTE | 2025-05-28 08:01 | PD.EDRME ---
Rapid Medical Screening Exam RME Arrival date/time: 05/28/25 05:01 45-year-old male history of homelessness and drug abuse. Here for leg pain chronic. I have greeted and performed a focused initial assessment of this patient. Initial appropriate labs ordered at this time. A comprehensive ED assessment and evaluation of the patient and analysis of all test and completion of medical decision making process will be conducted by additional ED provider. Chief Complaint: Extremity Injury, Lower Time Seen by Provider: 05/28/25 06:18 Vital signs: Vital Signs Temperature 98.2 F 05/28/25 05:08 Pulse Rate 93 05/28/25 05:08 Respiratory Rate 18 05/28/25 05:08 Blood Pressure 127/82 05/28/25 05:08 Pulse Oximetry (%) 98 05/28/25 05:08 Oxygen Delivery Method Room Air 05/28/25 05:08
[2025-05-28 09:41] VITALS: BP 109/73; PULSE 62; RESP 18; TEMP 36.8; O2SAT 98
--- NOTE | 2025-05-28 10:07 | EDNOTE_ITS ---
Lower Extremity Injury RME/HPI General Chief Complaint: Extremity Injury, Lower Stated Complaint: LEG PAIN Time Seen by Provider: 05/28/25 06:18 Source: patient Arrival date/time: 05/28/25 06 45-year-old male history of homelessness and drug abuse. Here for leg pain chronic. Patient does complain of bilateral lower leg cramping due to his history of shuffling gait. Patient denies any other concerns today. Mode of arrival: ambulatory Limitations: no limitations RME / HPI RME / HPI Narrative: 05/28/25 05:01 Related Data Previous Rx's ?Medication ?Instructions ?Recorded sulfamethoxazole 800 1 tab PO BID #14 tabs mg-trimethoprim 160 mg tablet (Bactrim DS) cyclobenzaprine 5 mg tablet 5 mg PO TID PRN muscle spa sm #30 07/23/23 tabs naproxen 500 mg tablet 500 mg PO BID PRN pain #30 t abs 07/23/23 naproxen 500 mg tablet 500 mg PO BID PRN pain #30 t abs 08/08/23 tamsulosin 0.4 mg capsule (Flomax) 0.4 mg PO QDAY #30 caps 08/08/23 baclofen 10 mg tablet 10 mg PO BID PRN muscle spas m #30 08/14/23 tabs naproxen 500 mg tablet 500 mg PO BID PRN pain #30 t abs 08/14/23 ibuprofen 800 mg tablet 800 mg PO TID PRN pain #30 t abs 08/28/23 ibuprofen 600 mg tablet 600 mg PO Q6H PRN pain #30 t abs 01/27/24 methocarbamol 500 mg tablet 1,000 mg (2 x 500 mg) PO Q 8H PRN 01/27/24 pain #30 tabs naproxen 500 mg tablet (Naprosyn) 500 mg PO BID #14 ta bs 03/15/24 ibuprofen 800 mg tablet 800 mg PO TID PRN pain #30 t abs 04/02/24 cyclobenzaprine 5 mg tablet 5 mg PO TID PRN muscle spa sm #14 04/07/24 tabs ibuprofen 600 mg tablet 600 mg PO Q6H PRN fever or p ain 04/07/24 #30 tabs ibuprofen 600 mg tablet 600 mg PO Q6H PRN pain #30 t abs 04/07/24 cyclobenzaprine 5 mg tablet 5 mg PO TID PRN muscle spa sm #30 04/11/24 tabs naproxen 500 mg tablet 500 mg PO BID PRN pain #30 t abs 04/11/24 ibuprofen 600 mg tablet 600 mg PO Q8H PRN pain #20 t abs 11/03/24 acetaminophen 500 mg capsule 500 mg PO Q6H PRN pain #3 0 caps 12/03/24 acetaminophen 500 mg capsule 500 mg PO Q6H PRN pain #3 0 caps 12/15/24 cyclobenzaprine 5 mg tablet 5 mg PO TID PRN muscle spa sm #15 12/20/24 tabs lidocaine 5 % topical patch 2 patch topical QDAY PRN p ain #30 12/20/24 (Lidoderm) ea naproxen 500 mg tablet 500 mg PO BID PRN pain #14 t abs 04/04/25 Allergies Allergy/AdvReac Type Severity Reaction Status Date / Time No Known Allergies Allergy Verified 05/28/25 05:21 Review of Systems Review of Systems Systems Reviewed: All systems reviewed, normal except as documented Narrative Review of Systems: Gen: No fever, no chills, no weight loss EYES: No discharge, no visual changes, no pain HEENT: No ear pain, no congestion, no sore throat PULM: No shortness of breath, no cough, no congestion CV: No chest pain, no dyspnea on exertion, no palpitations GI: No nausea, no vomiting, no diarrhea, no pain, no constipation : No frequency, no urgency, no dysuria Musc/skel: No joint pain, no back pain Skin: No rash Psyc: No hallucinations, no depression Heme/Lymph: No easy bleeding or bruising tendencies Neuro: No weakness, no headache ED Exam Narrative Physical exam: Disheveled 45-year-old male awake and alert answering questions. General Limitations: Present no limitations General appearance: Present alert Head Head exam: Present atraumatic Eye Eye exam: Present normal appearance, PERRL and EOMI ENT ENT exam: Present normal exam, normal oropharynx and mucous membranes moist Neck Neck exam: Present normal inspection, full ROM and trachea midline Chest Chest inspection: Present normal inspection and symmetric chest wall rise Respiratory Respiratory exam: Present normal lung sounds bilaterally Cardiovascular Cardiovascular exam: Present regular rate, normal rhythm and normal heart sounds Abdominal Exam Abdominal exam: Present soft and normal bowel sounds Extremities Exam Extremities exam: Present normal inspection and full ROM Back Exam Back exam: Present normal inspection and full ROM Neurological Exam Neurological exam: Present alert, oriented X3 and CN II-XII intact Psychiatric Psychiatric exam: Present normal affect and normal mood Skin Skin exam: Present warm, dry, intact and normal color Course Quality Measures none Vital Signs Vital signs: Vital Signs Temperature 98.2 F 05/28/25 05:08 Pulse Rate 93 05/28/25 05:08 Respiratory Rate 18 05/28/25 05:08 Blood Pressure 127/82 05/28/25 05:08 Pulse Oximetry (%) 98 05/28/25 05:08 Oxygen Delivery Method Room Air 05/28/25 05:08 Extremity Injury, Lower Patient data External records reviewed:: [facility] previous records Clinical information provided by:: patient Social determinants that could affect healthcare access:: other (specify) (Housing, substance abuse, mental health) Patient has the following chronic illnesses:: Substance abuse, mental health, How is presenting disease/condition affected by chronic disease/condition?: exacerbated by Evaluation data The following diagnostics were reviewed and interpreted by me:: other (specify) Lab and/or radiology exams considered but not ordered:: No Interpretation Summary: Not applicable Medications / Prescriptions Medications or Prescriptions considered but not ordered:: No Medication administrations:: No Consultations Consultation(s) initiated? (list below): No Diagnosis Extremity Injury, Lower Differential Diagnosis: other (Neuropathy, foot contusion, leg cramps.) Most likely diagnosis given after review of the tests above:: Chronic lower leg pain. Admission Indicated Admission indicated?: not indicated Admission Request Was there a request for admission?: No Disposition Plan Disposition Plan: Discharge Discharge Attestation Discharge Attestation: The patient and all family members were given an opportunity to ask questions and understood the discharge instructions. Discharge instructions specifically effects, indications for sooner follow up or return to the emergency department, and the expected course of current diagnosis. Patient condition: Stable Discharge Plan Plan Patient Disposition: HOME (Self Care) Prescriptions/Referrals Prescriptions/Med Rec: No Action naproxen 500 mg tablet 500 mg PO BID PRN (Reason: pain) Qty: 30 0RF cyclobenzaprine 5 mg tablet 5 mg PO TID PRN (Reason: muscle spasm) Qty: 30 0RF naproxen 500 mg tablet 500 mg PO BID PRN (Reason: pain) Qty: 30 0RF baclofen 10 mg tablet 10 mg PO BID PRN (Reason: muscle spasm) Qty: 30 0RF ibuprofen 800 mg tablet 800 mg PO TID PRN (Reason: pain) Qty: 30 0RF ibuprofen 800 mg tablet 800 mg PO TID PRN (Reason: pain) Qty: 30 0RF ibuprofen 600 mg tablet 600 mg PO Q6H PRN (Reason: pain) Qty: 30 0RF ibuprofen 600 mg tablet 600 mg PO Q8H PRN (Reason: pain) Qty: 20 0RF acetaminophen 500 mg capsule 500 mg PO Q6H PRN (Reason: pain) Qty: 30 0RF lidocaine [Lidoderm] 5 % adhesive patch,medicated 2 patch topical QDAY PRN (Reason: pain) Qty: 30 0RF Rx Instructions: leave on most painful area for up to 12 hrs cyclobenzaprine 5 mg tablet 5 mg PO TID PRN (Reason: muscle spasm) Qty: 15 0RF naproxen 500 mg tablet 500 mg PO BID PRN (Reason: pain) Qty: 14 0RF sulfamethoxazole-trimethoprim [Bactrim DS] 800-160 mg tablet 1 tab PO BID Qty: 14 0RF naproxen 500 mg tablet 500 mg PO BID PRN (Reason: pain) Qty: 30 0RF tamsulosin [Flomax] 0.4 mg capsule 0.4 mg PO QDAY Qty: 30 0RF ibuprofen 600 mg tablet 600 mg PO Q6H PRN (Reason: pain) Qty: 30 0RF methocarbamol 500 mg tablet 1,000 mg PO Q8H PRN (Reason: pain) Qty: 30 0RF naproxen [Naprosyn] 500 mg tablet 500 mg PO BID Qty: 14 0RF ibuprofen 600 mg tablet 600 mg PO Q6H PRN (Reason: fever or pain) Qty: 30 0RF cyclobenzaprine 5 mg tablet 5 mg PO TID PRN (Reason: muscle spasm) Qty: 14 0RF naproxen 500 mg tablet 500 mg PO BID PRN (Reason: pain) Qty: 30 0RF cyclobenzaprine 5 mg tablet 5 mg PO TID PRN (Reason: muscle spasm) Qty: 30 0RF acetaminophen 500 mg capsule 500 mg PO Q6H PRN (Reason: pain) Qty: 30 0RF Referrals: Leonardo Haro MD [Primary Care Provider] - In 1 week Problem List Clinical Impression: Chronic leg pain Patient/Caregiver Discharge Instructions Discharge Activity: activity as tolerated Education Materials: ED Chronic Pain, ED Drug Abuse Additional Instructions: - Please make an appointment with your primary doctor. Return if you have any worsening symptoms or worsening change in condition. 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 Kay
== END 2025-05-28 10:27 | disposition home or self-care (01) ==
PROVIDERS: Emergency Provider Emergency Medicine; PCP Family Medicine
DX: M79.662 Pain in left lower leg (principal); M79.661 Pain in right lower leg; R25.2 Cramp and spasm; G89.29 Other chronic pain; Z59.00 Homelessness unspecified
CPT/HCPCS: 99283

== ENCOUNTER 2025-05-28 13:27 | Emergency (ER) | payer MEDICAID, SELFPAY ==
[2025-05-28 13:31] VITALS: PULSE 78; RESP 17; O2SAT 94
--- NOTE | 2025-05-28 19:17 | PC.NURSE ---
Security informed me that pt left at 1343.
== END 2025-05-28 13:43 | disposition left against medical advice (07) ==
LOC: SERX 14:08
PROVIDERS: Emergency Provider Emergency Medicine
DX: Z53.21 Procedure and treatment not carried out due to patient leaving prior to being seen by health care provider (principal)
CPT/HCPCS: 99283

== ENCOUNTER 2025-05-28 18:08 | Emergency (ER) | payer MEDICAID, SELFPAY ==
[2025-05-28 19:05] VITALS: PULSE 88; RESP 17; O2SAT 97
[2025-05-28 19:33] VITALS: BP 129/88; PULSE 91; RESP 20; TEMP 37.1; O2SAT 96
--- NOTE | 2025-05-28 20:04 | PC.NURSE ---
PT INFORMED ME AND SECURITY THAT HE IS LEAVING.
--- NOTE | 2025-06-29 20:24 | PD.EDADDENDU ---
Emergency Room Addendum Addendum Narrative: Patient left prior to medical screening examination. Patient was not evaluated by undersigned.
== END 2025-05-28 20:05 | disposition left against medical advice (07) ==
PROVIDERS: Emergency Provider Emergency Medicine
DX: Z53.21 Procedure and treatment not carried out due to patient leaving prior to being seen by health care provider (principal)
CPT/HCPCS: 99283

== ENCOUNTER 2025-05-29 13:36 | Emergency (ER) | payer MEDICAID, SELFPAY ==
[2025-05-29 13:38] VITALS: PULSE 73; RESP 17; O2SAT 99
[2025-05-29 13:58] VITALS: BP 136/86; PULSE 70; RESP 18; TEMP 37; O2SAT 98
--- NOTE | 2025-05-29 18:06 | PD.EDEXREM ---
ED Extremity Problem RME/HPI General Chief complaint: Extremity Problem,Nontraumatic Stated complaint: LEG PAIN Time Seen by Provider: 05/29/25 13:48 Arrival date/time: 05/29/25 13:36 45-year-old male well-known to me presents to the emergency department today for complaints of bilateral leg pain which is a chronic finding for him. Patient is also asking for food and water patient is homeless Limitations: no limitations Related Data Previous Rx's ?Medication ?Instructions ?Recorded sulfamethoxazole 800 1 tab PO BID #14 tabs 03/09/23 mg-trimethoprim 160 mg tablet (Bactrim DS) cyclobenzaprine 5 mg tablet 5 mg PO TID PRN muscle spasm #30 07/23/23 tabs naproxen 500 mg tablet 500 mg PO BID PRN pain #30 tabs 07/23/23 naproxen 500 mg tablet 500 mg PO BID PRN pain #30 tabs 08/08/23 tamsulosin 0.4 mg capsule (Flomax) 0.4 mg PO QDAY #30 caps 08/08/23 baclofen 10 mg tablet 10 mg PO BID PRN muscle spasm #30 08/14/23 tabs naproxen 500 mg tablet 500 mg PO BID PRN pain #30 tabs 08/14/23 ibuprofen 800 mg tablet 800 mg PO TID PRN pain #30 tabs 08/28/23 ibuprofen 600 mg tablet 600 mg PO Q6H PRN pain #30 tabs 01/27/24 methocarbamol 500 mg tablet 1,000 mg (2 x 500 mg) PO Q8H PRN 01/27/24 pain #30 tabs naproxen 500 mg tablet (Naprosyn) 500 mg PO BID #14 tabs 03/15/24 ibuprofen 800 mg tablet 800 mg PO TID PRN pain #30 tabs 04/02/24 cyclobenzaprine 5 mg tablet 5 mg PO TID PRN muscle spasm #14 04/07/24 tabs ibuprofen 600 mg tablet 600 mg PO Q6H PRN fever or pain 04/07/24 #30 tabs ibuprofen 600 mg tablet 600 mg PO Q6H PRN pain #30 tabs 04/07/24 cyclobenzaprine 5 mg tablet 5 mg PO TID PRN muscle spasm #30 04/11/24 tabs naproxen 500 mg tablet 500 mg PO BID PRN pain #30 tabs 04/11/24 ibuprofen 600 mg tablet 600 mg PO Q8H PRN pain #20 tabs 11/03/24 acetaminophen 500 mg capsule 500 mg PO Q6H PRN pain #30 caps 12/03/24 acetaminophen 500 mg capsule 500 mg PO Q6H PRN pain #30 caps 12/15/24 cyclobenzaprine 5 mg tablet 5 mg PO TID PRN muscle spasm #15 12/20/24 tabs lidocaine 5 % topical patch 2 patch topical QDAY PRN pain #30 12/20/24 (Lidoderm) ea naproxen 500 mg tablet 500 mg PO BID PRN pain #14 tabs 04/04/25 Allergies Allergy/AdvReac Type Severity Reaction Status Date / Time No Known Allergies Allergy Verified 05/30/25 21:16 Review of Systems Review of Systems Systems Reviewed: All systems reviewed, normal except as documented Constitutional Constitutional: Reports system reviewed and no additional complaints, except as documented, Denies fever(s) and Denies headache(s) Eyes Eyes: Reports system reviewed and no additional complaints, except as documented and Denies blurry vision ENT Ears, Nose, Mouth, and Throat: Reports system reviewed and no additional complaints, except as documented, Denies headache(s), Denies nasal congestion and Denies nasal discharge Cardiovascular Cardiovascular: Reports system reviewed and no additional complaints, except as documented, Denies chest pain and Denies dyspnea Respiratory Respiratory: Reports system reviewed and no additional complaints, except as documented, Denies chest congestion, Denies cough and Denies dyspnea Gastrointestinal Gastrointestinal: Reports system reviewed and no additional complaints, except as documented and Denies abdominal pain Musculoskeletal Musculoskeletal: Reports system reviewed and no additional complaints, except as documented, Reports arthralgias, Denies back pain, Denies deformity, Denies numbness, Reports stiffness and Denies tingling Integumentary/Breasts Skin/Breast: Reports system reviewed and no additional complaints, except as documented and Denies rash Neurologic Neurologic: Reports system reviewed and no additional complaints, except as documented, Reports as per HPI, Denies headache(s), Denies numbness and Denies tingling Past Medical History Past Medical History NEUROLOGIC: Positive Cerebrovascular Accident; Negative Neurological Disorders CARDIAC: Positive Myocardial Infarction and Hypercholesterolemia; Negative Cardiac Disorders or Congestive Heart Failure RESPIRATORY: Negative Chronic Obstructive Pulmonary Disease (COPD) GASTROINTESTINAL: Negative Gastrointestinal Disorders GENITOURINARY: Negative Genitourinary Disorders or Renal Disease MUSCULOSKELETAL: Negative Musculoskeletal Disorders ENDOCRINE: Negative Endocrine Disorders, Diabetes Mellitus Type 1 or Diabetes Mellitus Type 2 HEMATOLOGIC: Negative Blood Disorders OTHER HISTORY: Negative Autoimmune Disease or Clostridium Difficile Social History SMOKING STATUS: Current some day smoker SUBSTANCE USE: methamphetamine ED Exam General Limitations: Present no limitations General appearance: Present alert and in no apparent distress Head Head exam: Present atraumatic, normocephalic and normal inspection Eye Eye exam: Present normal appearance, PERRL and EOMI; Absent conjunctival injection ENT ENT exam: Present normal exam, normal oropharynx and mucous membranes moist Neck Neck exam: Present normal inspection, full ROM and trachea midline Chest Chest inspection: Present normal inspection and symmetric chest wall rise Respiratory Respiratory exam: Present normal lung sounds bilaterally; Absent respiratory distress Cardiovascular Cardiovascular exam: Present regular rate, normal rhythm and normal heart sounds Abdominal Exam Abdominal exam: Present soft and normal bowel sounds; Absent distention, tenderness, guarding, rebound or rigidity Extremities Exam Extremities exam: Present normal inspection and full ROM Back Exam Back exam: Present normal inspection and full ROM Neurological Exam Neurological exam: Present alert, oriented X3, CN II-XII intact, normal gait and reflexes normal; Absent motor sensory deficit Psychiatric Psychiatric exam: Present normal affect and normal mood Skin Skin exam: Present warm, dry, intact and normal color; Absent rash Course Quality Measures none Vital Signs Vital signs: Vital Signs Temperature 98.6 F 05/29/25 13:58 Pulse Rate 70 05/29/25 13:58 Respiratory Rate 18 05/29/25 13:58 Blood Pressure 136/86 H 05/29/25 13:58 Pulse Oximetry (%) 98 05/29/25 13:58 Oxygen Delivery Method Room Air 05/29/25 13:58 O2 saturation 98% on room air within normal limits Extremity Problem MDM Narrative MDM Narrative:: 45-year-old male well-known to me presents to the emergency department today for complaints of bilateral leg pain which is a chronic finding for him. Patient is also asking for food and water patient is homeless On exam patient well-appearing patient does not appear ill or toxic in no acute distress patient walks with steady gait Patient given fresh close patient also given food and water At this time I do not believe patient has any acute emergent findings patient be discharged home at this time Patient discharged home in no distress to follow-up with primary care doctor in the next 24 to 48 hours and for any worsening symptoms to return to the ER immediately Patient data External records reviewed:: [facility] previous records Clinical information provided by:: patient Social determinants that could affect healthcare access:: housing Patient has the following chronic illnesses:: See history How is presenting disease/condition affected by chronic disease/condition?: exacerbated by Evaluation data The following diagnostics were reviewed and interpreted by me:: other (specify) (N/A) Lab and/or radiology exams considered but not ordered:: Considered not ordered Interpretation Summary: N/A Medications / Prescriptions Medications or Prescriptions considered but not ordered:: Given no meds Medication administrations:: Given no meds Consultations Consultation(s) initiated? (list below): No Diagnosis Extremity Problem Differential Diagnosis: other (Chronic leg pain, homeless, drug abuse) Most likely diagnosis given after review of the tests above:: Chronic leg pain, homeless, drug abuse Admission Indicated Admission indicated?: not indicated Admission Request Was there a request for admission?: No Disposition Plan Disposition Plan: Discharge Discharge Attestation Discharge Attestation: The patient and all family members were given an opportunity to ask questions and understood the discharge instructions. Discharge instructions specifically effects, indications for sooner follow up or return to the emergency department, and the expected course of current diagnosis. Patient condition: Stable Discharge Plan Plan Patient Disposition: HOME (Self Care) Discharge Disposition comment: Stable Prescriptions/Referrals Prescriptions/Med Rec: No Action naproxen 500 mg tablet 500 mg PO BID PRN (Reason: pain) Qty: 30 0RF cyclobenzaprine 5 mg tablet 5 mg PO TID PRN (Reason: muscle spasm) Qty: 30 0RF naproxen 500 mg tablet 500 mg PO BID PRN (Reason: pain) Qty: 30 0RF baclofen 10 mg tablet 10 mg PO BID PRN (Reason: muscle spasm) Qty: 30 0RF ibuprofen 800 mg tablet 800 mg PO TID PRN (Reason: pain) Qty: 30 0RF ibuprofen 800 mg tablet 800 mg PO TID PRN (Reason: pain) Qty: 30 0RF ibuprofen 600 mg tablet 600 mg PO Q6H PRN (Reason: pain) Qty: 30 0RF ibuprofen 600 mg tablet 600 mg PO Q8H PRN (Reason: pain) Qty: 20 0RF acetaminophen 500 mg capsule 500 mg PO Q6H PRN (Reason: pain) Qty: 30 0RF lidocaine [Lidoderm] 5 % adhesive patch,medicated 2 patch topical QDAY PRN (Reason: pain) Qty: 30 0RF Rx Instructions: leave on most painful area for up to 12 hrs cyclobenzaprine 5 mg tablet 5 mg PO TID PRN (Reason: muscle spasm) Qty: 15 0RF naproxen 500 mg tablet 500 mg PO BID PRN (Reason: pain) Qty: 14 0RF sulfamethoxazole-trimethoprim [Bactrim DS] 800-160 mg tablet 1 tab PO BID Qty: 14 0RF naproxen 500 mg tablet 500 mg PO BID PRN (Reason: pain) Qty: 30 0RF tamsulosin [Flomax] 0.4 mg capsule 0.4 mg PO QDAY Qty: 30 0RF ibuprofen 600 mg tablet 600 mg PO Q6H PRN (Reason: pain) Qty: 30 0RF methocarbamol 500 mg tablet 1,000 mg PO Q8H PRN (Reason: pain) Qty: 30 0RF naproxen [Naprosyn] 500 mg tablet 500 mg PO BID Qty: 14 0RF ibuprofen 600 mg tablet 600 mg PO Q6H PRN (Reason: fever or pain) Qty: 30 0RF cyclobenzaprine 5 mg tablet 5 mg PO TID PRN (Reason: muscle spasm) Qty: 14 0RF naproxen 500 mg tablet 500 mg PO BID PRN (Reason: pain) Qty: 30 0RF cyclobenzaprine 5 mg tablet 5 mg PO TID PRN (Reason: muscle spasm) Qty: 30 0RF acetaminophen 500 mg capsule 500 mg PO Q6H PRN (Reason: pain) Qty: 30 0RF Referrals: Lavell (PCP),MD Cody [Primary Care Provider] - In 1 week Problem List Clinical Impression: Chronic leg pain, Homeless Patient/Caregiver Discharge Instructions Education Materials: ED Myalgias Additional Instructions: Please follow up with your primary care doctor in the next 24-48hrs for any worsening symptoms return here immediately Print Language: Pashto Stand Alone Forms: Tami Award Info., Patient Portal Info Letter PA/IRRADIATED FUEL HANDLER Supervising Physician PA/IRRADIATED FUEL HANDLER Supervising Physician: Dr akbar
== END 2025-05-29 18:09 | disposition home or self-care (01) ==
PROVIDERS: Emergency Provider Emergency Medicine; PCP Family Medicine
DX: M79.604 Pain in right leg (principal); M79.605 Pain in left leg; G89.29 Other chronic pain; Z59.00 Homelessness unspecified
CPT/HCPCS: 99284

== ENCOUNTER 2025-05-29 21:29 | Emergency (ER) | payer MEDICAID, SELFPAY ==
[2025-05-29 22:11] VITALS: BP 135/91; PULSE 103; RESP 18; TEMP 37.4; O2SAT 97
--- NOTE | 2025-05-29 22:52 | EDNOTE_ITS ---
ED General RME/HPI General Chief complaint: General Adult/Misc Complain Stated complaint: LEG PAIN Time Seen by Provider: 05/29/25 22:50 Arrival date/time: 05/29/25 21:29 RME / HPI RME / HPI narrative: 45-year-old male patient, homeless, came in for evaluation regarding chronic leg pain. Patient has been having chronic leg pain for several months, coming to this emergency room several times a day, almost on a daily basis, complaining of the same chronic leg pain. Described as dull ache, severity mild. Patient is ambulatory denies any redness denies any swelling denies any other complaints. No medications taken prior to arrival. Patient is known to this emergency room. Related Data Previous Rx's ?Medication ?Instructions ?Recorded sulfamethoxazole 800 1 tab PO BID #14 tabs mg-trimethoprim 160 mg tablet (Bactrim DS) cyclobenzaprine 5 mg tablet 5 mg PO TID PRN muscle spa sm #30 07/23/23 tabs naproxen 500 mg tablet 500 mg PO BID PRN pain #30 t abs 07/23/23 naproxen 500 mg tablet 500 mg PO BID PRN pain #30 t abs 08/08/23 tamsulosin 0.4 mg capsule (Flomax) 0.4 mg PO QDAY #30 caps 08/08/23 baclofen 10 mg tablet 10 mg PO BID PRN muscle spas m #30 08/14/23 tabs naproxen 500 mg tablet 500 mg PO BID PRN pain #30 t abs 08/14/23 ibuprofen 800 mg tablet 800 mg PO TID PRN pain #30 t abs 08/28/23 ibuprofen 600 mg tablet 600 mg PO Q6H PRN pain #30 t abs 01/27/24 methocarbamol 500 mg tablet 1,000 mg (2 x 500 mg) PO Q 8H PRN 01/27/24 pain #30 tabs naproxen 500 mg tablet (Naprosyn) 500 mg PO BID #14 ta bs 03/15/24 ibuprofen 800 mg tablet 800 mg PO TID PRN pain #30 t abs 04/02/24 cyclobenzaprine 5 mg tablet 5 mg PO TID PRN muscle spa sm #14 04/07/24 tabs ibuprofen 600 mg tablet 600 mg PO Q6H PRN fever or p ain 04/07/24 #30 tabs ibuprofen 600 mg tablet 600 mg PO Q6H PRN pain #30 t abs 04/07/24 cyclobenzaprine 5 mg tablet 5 mg PO TID PRN muscle spa sm #30 04/11/24 tabs naproxen 500 mg tablet 500 mg PO BID PRN pain #30 t abs 04/11/24 ibuprofen 600 mg tablet 600 mg PO Q8H PRN pain #20 t abs 11/03/24 acetaminophen 500 mg capsule 500 mg PO Q6H PRN pain #3 0 caps 12/03/24 acetaminophen 500 mg capsule 500 mg PO Q6H PRN pain #3 0 caps 12/15/24 cyclobenzaprine 5 mg tablet 5 mg PO TID PRN muscle spa sm #15 12/20/24 tabs lidocaine 5 % topical patch 2 patch topical QDAY PRN p ain #30 12/20/24 (Lidoderm) ea naproxen 500 mg tablet 500 mg PO BID PRN pain #14 t abs 04/04/25 Allergies Allergy/AdvReac Type Severity Reaction Status Date / Time No Known Allergies Allergy Verified 05/29/25 21:30 Review of Systems Review of Systems Narrative Review of Systems: Review of system reviewed and within normal limits except mentioned in HPI ED Exam Narrative Physical exam: VITAL SIGNS: Reviewed. GENERAL APPEARANCE: Alert and interactive, follows commands, no acute distress, HEAD AND FACE: Non-traumatic. ENT: PERRL, pink conjunctivitis, eyelid no trauma, Mucous membrane moist. NECK: Supple, nontender, no nuchal rigidity. CHEST: No tenderness, no crepitus, no paradoxical movement, no retractions. LUNGS: Clear, well ventilated, symmetric, no rales, no wheezing, no ronchi, no stridor, good breath sounds bilaterally. HEART: Regular rate, regular rhythm, no murmur, no gallops. ABDOMEN: Soft, positive bowel sounds, nondistended, no guarding, nontender, no rebound, no masses, RECTAL: Deferred. GENITAL: Deferred. NEUROLOGICAL: Gross motor function intact sensory function intact, Appropriate for age. MUSCULOSKELETAL: low back nontender, full range of motion. EXTREMITIES: Bilateral lower leg tenderness, no redness no swelling distal neurovascular status intact, full range of motion. SKIN: Color pink, dry, no rash, no lacerations, no abrasions, no contusions. LYMPHATICS: Deferred. Course Quality Measures none Vital Signs Vital signs: Vital Signs Temperature 99.3 F 05/29/25 22:11 Pulse Rate 103 H 05/29/25 22:11 Respiratory Rate 18 05/29/25 22:11 Blood Pressure 135/91 H 05/29/25 22:11 Pulse Oximetry (%) 97 05/29/25 22:11 Oxygen Delivery Method Room Air 05/29/25 22:11 Discharge Plan Plan Patient Disposition: HOME (Self Care) Discharge Disposition comment: Stable Prescriptions/Referrals Prescriptions/Med Rec: No Action naproxen 500 mg tablet 500 mg PO BID PRN (Reason: pain) Qty: 30 0RF cyclobenzaprine 5 mg tablet 5 mg PO TID PRN (Reason: muscle spasm) Qty: 30 0RF naproxen 500 mg tablet 500 mg PO BID PRN (Reason: pain) Qty: 30 0RF baclofen 10 mg tablet 10 mg PO BID PRN (Reason: muscle spasm) Qty: 30 0RF ibuprofen 800 mg tablet 800 mg PO TID PRN (Reason: pain) Qty: 30 0RF ibuprofen 800 mg tablet 800 mg PO TID PRN (Reason: pain) Qty: 30 0RF ibuprofen 600 mg tablet 600 mg PO Q6H PRN (Reason: pain) Qty: 30 0RF ibuprofen 600 mg tablet 600 mg PO Q8H PRN (Reason: pain) Qty: 20 0RF acetaminophen 500 mg capsule 500 mg PO Q6H PRN (Reason: pain) Qty: 30 0RF lidocaine [Lidoderm] 5 % adhesive patch,medicated 2 patch topical QDAY PRN (Reason: pain) Qty: 30 0RF Rx Instructions: leave on most painful area for up to 12 hrs cyclobenzaprine 5 mg tablet 5 mg PO TID PRN (Reason: muscle spasm) Qty: 15 0RF naproxen 500 mg tablet 500 mg PO BID PRN (Reason: pain) Qty: 14 0RF sulfamethoxazole-trimethoprim [Bactrim DS] 800-160 mg tablet 1 tab PO BID Qty: 14 0RF naproxen 500 mg tablet 500 mg PO BID PRN (Reason: pain) Qty: 30 0RF tamsulosin [Flomax] 0.4 mg capsule 0.4 mg PO QDAY Qty: 30 0RF ibuprofen 600 mg tablet 600 mg PO Q6H PRN (Reason: pain) Qty: 30 0RF methocarbamol 500 mg tablet 1,000 mg PO Q8H PRN (Reason: pain) Qty: 30 0RF naproxen [Naprosyn] 500 mg tablet 500 mg PO BID Qty: 14 0RF ibuprofen 600 mg tablet 600 mg PO Q6H PRN (Reason: fever or pain) Qty: 30 0RF cyclobenzaprine 5 mg tablet 5 mg PO TID PRN (Reason: muscle spasm) Qty: 14 0RF naproxen 500 mg tablet 500 mg PO BID PRN (Reason: pain) Qty: 30 0RF cyclobenzaprine 5 mg tablet 5 mg PO TID PRN (Reason: muscle spasm) Qty: 30 0RF acetaminophen 500 mg capsule 500 mg PO Q6H PRN (Reason: pain) Qty: 30 0RF Referrals: Lavell (PCP),MD Cody [Primary Care Provider] - In 1 week Problem List Clinical Impression: Chronic leg pain Patient/Caregiver Discharge Instructions Discharge Activity: activity as tolerated Education Materials: ED Chronic Pain Additional Instructions: Thank you for the opportunity for serving you today. You are stable for discharged . You are advised to: Follow-up with your PCP in 1 to 2 days Return to ED for worsening of symptoms Increase oral fluids Take [id number] Tylenol Motrin as needed for pain Print Language: Uzbek Stand Alone Forms: Tami Award Info., Patient Portal Info Letter MDM Narrative [facility] hospital course: 45-year-old male patient, homeless, came in for evaluation regarding chronic leg pain. Patient has been having chronic leg pain for several months, coming to this emergency room several times a day, almost on a daily basis, complaining of the same chronic leg pain. Described as dull ache, severity mild. Patient is ambulatory denies any redness denies any swelling denies any other complaints. No medications taken prior to arrival. Patient is known to this emergency room. Imaging or workup is not needed at this time patient is coming here malingering asking for food all the time he is homeless. He is ambulatory I do not think that patient is really having bilateral leg pain. Patient is stable for discharge Diagnosis Differential diagnosis: Chronic leg pain, Most likely dx, and/or detailed dx discussion: Chronic leg pain, homelessness Dispositon Disposition: Discharge Home
[2025-05-29 23:05] VITALS: RESP 16
== END 2025-05-29 23:06 | disposition home or self-care (01) ==
PROVIDERS: Emergency Provider Emergency Medicine; PCP Family Medicine
DX: M79.606 Pain in leg, unspecified (principal); G89.29 Other chronic pain; Z59.00 Homelessness unspecified; Z76.5 Malingerer [conscious simulation]
CPT/HCPCS: 99284

== ENCOUNTER 2025-05-30 16:36 | Emergency (ER) | payer MEDICAID, SELFPAY ==
[2025-05-30 16:46] VITALS: PULSE 112; RESP 17; O2SAT 99
[2025-05-30 16:58] VITALS: BP 130/88; PULSE 96; RESP 18; TEMP 36.9; O2SAT 98
--- NOTE | 2025-05-30 17:17 | EDNOTE_ITS ---
ED Extremity Problem RME/HPI General Chief complaint: Extremity Problem,Nontraumatic Stated complaint: LEG PAIN Time Seen by Provider: 05/30/25 16:56 Source: patient Arrival date/time: 05/30/25 16:36 45-year-old male with no known medical history presents to the emergency room with a chief complaint of bilateral chronic leg pain Mode of arrival: ambulatory Limitations: no limitations Related Data Previous Rx's ?Medication ?Instructions ?Recorded sulfamethoxazole 800 1 tab PO BID #14 tabs mg-trimethoprim 160 mg tablet (Bactrim DS) cyclobenzaprine 5 mg tablet 5 mg PO TID PRN muscle spa sm #30 07/23/23 tabs naproxen 500 mg tablet 500 mg PO BID PRN pain #30 t abs 07/23/23 naproxen 500 mg tablet 500 mg PO BID PRN pain #30 t abs 08/08/23 tamsulosin 0.4 mg capsule (Flomax) 0.4 mg PO QDAY #30 caps 08/08/23 baclofen 10 mg tablet 10 mg PO BID PRN muscle spas m #30 08/14/23 tabs naproxen 500 mg tablet 500 mg PO BID PRN pain #30 t abs 08/14/23 ibuprofen 800 mg tablet 800 mg PO TID PRN pain #30 t abs 08/28/23 ibuprofen 600 mg tablet 600 mg PO Q6H PRN pain #30 t abs 01/27/24 methocarbamol 500 mg tablet 1,000 mg (2 x 500 mg) PO Q 8H PRN 01/27/24 pain #30 tabs naproxen 500 mg tablet (Naprosyn) 500 mg PO BID #14 ta bs 03/15/24 ibuprofen 800 mg tablet 800 mg PO TID PRN pain #30 t abs 04/02/24 cyclobenzaprine 5 mg tablet 5 mg PO TID PRN muscle spa sm #14 04/07/24 tabs ibuprofen 600 mg tablet 600 mg PO Q6H PRN fever or p ain 04/07/24 #30 tabs ibuprofen 600 mg tablet 600 mg PO Q6H PRN pain #30 t abs 04/07/24 cyclobenzaprine 5 mg tablet 5 mg PO TID PRN muscle spa sm #30 04/11/24 tabs naproxen 500 mg tablet 500 mg PO BID PRN pain #30 t abs 04/11/24 ibuprofen 600 mg tablet 600 mg PO Q8H PRN pain #20 t abs 11/03/24 acetaminophen 500 mg capsule 500 mg PO Q6H PRN pain #3 0 caps 12/03/24 acetaminophen 500 mg capsule 500 mg PO Q6H PRN pain #3 0 caps 12/15/24 cyclobenzaprine 5 mg tablet 5 mg PO TID PRN muscle spa sm #15 12/20/24 tabs lidocaine 5 % topical patch 2 patch topical QDAY PRN p ain #30 12/20/24 (Lidoderm) ea naproxen 500 mg tablet 500 mg PO BID PRN pain #14 t abs 04/04/25 Allergies Allergy/AdvReac Type Severity Reaction Status Date / Time No Known Allergies Allergy Verified 05/30/25 16:46 Review of Systems Review of Systems Systems Reviewed: All systems reviewed, normal except as documented Constitutional Constitutional: Reports system reviewed and no additional complaints, except as documented, Denies fatigue, Denies fever(s), Denies headache(s) and Denies weakness Eyes Eyes: Reports system reviewed and no additional complaints, except as documented, Denies blurry vision and Denies change in vision ENT Ears, Nose, Mouth, and Throat: Reports system reviewed and no additional complaints, except as documented, Denies otalgia, Denies headache(s), Denies nasal congestion, Denies throat swelling and Denies vertigo Cardiovascular Cardiovascular: Reports system reviewed and no additional complaints, except as documented, Denies chest pain, Denies dyspnea and Denies dyspnea on exertion Respiratory Respiratory: Reports system reviewed and no additional complaints, except as documented, Denies chest congestion, Denies cough, Denies dyspnea, Denies dyspnea on exertion and Denies wheezing Gastrointestinal Gastrointestinal: Reports system reviewed and no additional complaints, except as documented, Denies abdominal pain, Denies cramping, Denies nausea and Denies vomiting Genitourinary Genitourinary: Reports system reviewed and no additional complaints, except as documented, Denies dysuria and Denies hematuria Musculoskeletal Musculoskeletal: Reports system reviewed and no additional complaints, except as documented and Denies back pain Integumentary/Breasts Skin/Breast: Reports system reviewed and no additional complaints, except as documented and Denies wounds Neurologic Neurologic: Reports system reviewed and no additional complaints, except as documented, Denies confusion, Denies headache(s), Denies lack of coordination, Denies vertigo and Denies weakness Psychiatric Psychiatric: Reports system reviewed and no additional complaints, except as documented, Denies anxiety, Denies confusion, Denies depression, Denies paranoia, Denies suicidal ideation and Denies tactile hallucinations Endocrine Endocrine: Reports system reviewed and no additional complaints, except as documented and Denies fatigue Hematologic/Lymphatic Hematologic/Lymphatic: Reports system reviewed and no additional complaints, except as documented and Denies lymphadenopathy Allergic/Immunologic Allergic/Immunologic: Reports system reviewed and no additional complaints, except as documented, Denies throat swelling, Denies urticaria and Denies wheezing Past Medical History Past Medical History NEUROLOGIC: Positive Cerebrovascular Accident; Negative Neurological Disorders CARDIAC: Positive Myocardial Infarction and Hypercholesterolemia; Negative Cardiac Disorders or Congestive Heart Failure RESPIRATORY: Negative Chronic Obstructive Pulmonary Disease (COPD) GASTROINTESTINAL: Negative Gastrointestinal Disorders GENITOURINARY: Negative Genitourinary Disorders or Renal Disease MUSCULOSKELETAL: Negative Musculoskeletal Disorders ENDOCRINE: Negative Endocrine Disorders, Diabetes Mellitus Type 1 or Diabetes Mellitus Type 2 HEMATOLOGIC: Negative Blood Disorders OTHER HISTORY: Negative Autoimmune Disease or Clostridium Difficile Social History SMOKING STATUS: Current every day smoker SUBSTANCE USE: methamphetamine ED Exam General Limitations: Present no limitations General appearance: Present alert and in no apparent distress Head Head exam: Present atraumatic Eye Eye exam: Present normal appearance, PERRL and EOMI ENT ENT exam: Present normal exam, normal oropharynx and mucous membranes moist Neck Neck exam: Present normal inspection, full ROM and trachea midline Chest Chest inspection: Present normal inspection and symmetric chest wall rise Respiratory Respiratory exam: Present normal lung sounds bilaterally Cardiovascular Cardiovascular exam: Present regular rate, normal rhythm and normal heart sounds Abdominal Exam Abdominal exam: Present soft and normal bowel sounds Extremities Exam Extremities exam: Present normal inspection and full ROM Back Exam Back exam: Present normal inspection and full ROM Neurological Exam Neurological exam: Present alert, oriented X3 and CN II-XII intact Psychiatric Psychiatric exam: Present normal affect and normal mood Skin Skin exam: Present warm, dry, intact and normal color Course Quality Measures none Orders Category Date Time Status Ibuprofen Tab [Motrin Tab] Med 05/30/25 17:10 Discontinued 600 mg PO X1 ONE Vital Signs Vital signs: Vital Signs Temperature 98.5 F 05/30/25 16:58 Pulse Rate 96 05/30/25 16:58 Respiratory Rate 18 05/30/25 16:58 Blood Pressure 130/88 H 05/30/25 16:58 Pulse Oximetry (%) 98 05/30/25 16:58 Oxygen Delivery Method Room Air 05/30/25 16:58 Extremity Problem MDM Narrative MDM Narrative:: 45-year-old male with no known medical history presents to the emergency room with a chief complaint of bilateral chronic leg pain Patient is hemodynamically stable and in no apparent distress Physical examination shows bilateral chronic leg pain. Pain medication was given to the patient and the patient was discharged Patient was discharged and educated to follow-up with primary care provider in the next 24 to 48 hours and return to the emergency room for any evidence of worsening signs or symptoms Patient data External records reviewed:: [facility] previous records Clinical information provided by:: patient Social determinants that could affect healthcare access:: housing Patient has the following chronic illnesses:: No chronic illness How is presenting disease/condition affected by chronic disease/condition?: no chronic disease Evaluation data The following diagnostics were reviewed and interpreted by me:: lab results and radiology exam(s) Lab and/or radiology exams considered but not ordered:: Labs and radiology exams considered in order Interpretation Summary: N/A Medications / Prescriptions Medications or Prescriptions considered but not ordered:: Medication given Medication administrations:: Medication Administration History Discontinued Medications Ibuprofen (Ibuprofen Tab 600 Mg Tablet) 600 mg PO X1 ONE Stop: 05/30/25 17:11 Medication given Consultations Consultation(s) initiated? (list below): No Diagnosis Extremity Problem Differential Diagnosis: other (Bilateral lower extremity pain) Most likely diagnosis given after review of the tests above:: Chronic leg pain Admission Indicated Admission indicated?: not indicated Admission Request Was there a request for admission?: No Disposition Plan Disposition Plan: Discharge Discharge Attestation Discharge Attestation: The patient and all family members were given an opportunity to ask questions and understood the discharge instructions. Discharge instructions specifically effects, indications for sooner follow up or return to the emergency department, and the expected course of current diagnosis. Patient condition: Stable Discharge Plan Plan Patient Disposition: HOME (Self Care) Discharge Disposition comment: Stable Prescriptions/Referrals Prescriptions/Med Rec: No Action naproxen 500 mg tablet 500 mg PO BID PRN (Reason: pain) Qty: 30 0RF cyclobenzaprine 5 mg tablet 5 mg PO TID PRN (Reason: muscle spasm) Qty: 30 0RF naproxen 500 mg tablet 500 mg PO BID PRN (Reason: pain) Qty: 30 0RF baclofen 10 mg tablet 10 mg PO BID PRN (Reason: muscle spasm) Qty: 30 0RF ibuprofen 800 mg tablet 800 mg PO TID PRN (Reason: pain) Qty: 30 0RF ibuprofen 800 mg tablet 800 mg PO TID PRN (Reason: pain) Qty: 30 0RF ibuprofen 600 mg tablet 600 mg PO Q6H PRN (Reason: pain) Qty: 30 0RF ibuprofen 600 mg tablet 600 mg PO Q8H PRN (Reason: pain) Qty: 20 0RF acetaminophen 500 mg capsule 500 mg PO Q6H PRN (Reason: pain) Qty: 30 0RF lidocaine [Lidoderm] 5 % adhesive patch,medicated 2 patch topical QDAY PRN (Reason: pain) Qty: 30 0RF Rx Instructions: leave on most painful area for up to 12 hrs cyclobenzaprine 5 mg tablet 5 mg PO TID PRN (Reason: muscle spasm) Qty: 15 0RF naproxen 500 mg tablet 500 mg PO BID PRN (Reason: pain) Qty: 14 0RF sulfamethoxazole-trimethoprim [Bactrim DS] 800-160 mg tablet 1 tab PO BID Qty: 14 0RF naproxen 500 mg tablet 500 mg PO BID PRN (Reason: pain) Qty: 30 0RF tamsulosin [Flomax] 0.4 mg capsule 0.4 mg PO QDAY Qty: 30 0RF ibuprofen 600 mg tablet 600 mg PO Q6H PRN (Reason: pain) Qty: 30 0RF methocarbamol 500 mg tablet 1,000 mg PO Q8H PRN (Reason: pain) Qty: 30 0RF naproxen [Naprosyn] 500 mg tablet 500 mg PO BID Qty: 14 0RF ibuprofen 600 mg tablet 600 mg PO Q6H PRN (Reason: fever or pain) Qty: 30 0RF cyclobenzaprine 5 mg tablet 5 mg PO TID PRN (Reason: muscle spasm) Qty: 14 0RF naproxen 500 mg tablet 500 mg PO BID PRN (Reason: pain) Qty: 30 0RF cyclobenzaprine 5 mg tablet 5 mg PO TID PRN (Reason: muscle spasm) Qty: 30 0RF acetaminophen 500 mg capsule 500 mg PO Q6H PRN (Reason: pain) Qty: 30 0RF Problem List Clinical Impression: Chronic leg pain Patient/Caregiver Discharge Instructions Education Materials: ED Chronic Pain Additional Instructions: Please follow-up with your primary care provider in the next 24 to 48 hours For any evidence of worsening signs or symptoms return to the emergency room immediately Print Language: Bruneian Stand Alone Forms: Tami Award Info., Patient Portal Info Letter PA/STEWARD/STEWARDESS CHIEF [employer] VESSEL Supervising Physician PA/STEWARD/STEWARDESS CHIEF [employer]GO VESSEL Supervising Physician: Dr. Alcocer
--- NOTE | 2025-05-30 19:07 | PC.NURSE ---
Registration informed met that pt took off ER.
== END 2025-05-30 19:08 | disposition left against medical advice (07) ==
PROVIDERS: Emergency Provider Emergency Medicine; PCP Family Medicine
DX: M79.605 Pain in left leg (principal); M79.604 Pain in right leg; G89.29 Other chronic pain
CPT/HCPCS: 99283

== ENCOUNTER 2025-05-30 21:12 | Emergency (ER) | payer MEDICAID, SELFPAY ==
[2025-05-30 21:13] VITALS: BP 129/79; PULSE 89; RESP 20; TEMP 37.2; O2SAT 96
[2025-05-30 21:16] VITALS: PULSE 96; RESP 16; O2SAT 98
--- NOTE | 2025-05-31 00:05 | PC.NURSE ---
SECURITY INFORMED ME THAT HE TOOK OFF ER.
== END 2025-05-31 00:07 | disposition left against medical advice (07) ==
PROVIDERS: Emergency Provider Emergency Medicine; PCP Family Medicine
DX: Z53.21 Procedure and treatment not carried out due to patient leaving prior to being seen by health care provider (principal)
CPT/HCPCS: 99283

== ENCOUNTER 2025-05-31 07:10 | Emergency (ER) | payer MEDICAID, SELFPAY ==
[2025-05-31 07:16] VITALS: BP 126/87; PULSE 81; RESP 17; TEMP 36.7; O2SAT 98; BMI 26.6
--- NOTE | 2025-05-31 10:44 | EDNOTE_ITS ---
ED Extremity Problem RME/HPI General Chief complaint: Extremity Problem,Nontraumatic Stated complaint: BOTH LEGS THROBBING Time Seen by Provider: 05/31/25 07:11 Arrival date/time: 05/31/25 07:10 45-year-old male well-known to me presents emergency department today for complaint of bilateral leg pain patient is homeless patient comes frequently on a daily basis or to get food and water. Limitations: no limitations Related Data Previous Rx's ?Medication ?Instructions ?Recorded sulfamethoxazole 800 1 tab PO BID #14 tabs mg-trimethoprim 160 mg tablet (Bactrim DS) cyclobenzaprine 5 mg tablet 5 mg PO TID PRN muscle spa sm #30 07/23/23 tabs naproxen 500 mg tablet 500 mg PO BID PRN pain #30 t abs 07/23/23 naproxen 500 mg tablet 500 mg PO BID PRN pain #30 t abs 08/08/23 tamsulosin 0.4 mg capsule (Flomax) 0.4 mg PO QDAY #30 caps 08/08/23 baclofen 10 mg tablet 10 mg PO BID PRN muscle spas m #30 08/14/23 tabs naproxen 500 mg tablet 500 mg PO BID PRN pain #30 t abs 08/14/23 ibuprofen 800 mg tablet 800 mg PO TID PRN pain #30 t abs 08/28/23 ibuprofen 600 mg tablet 600 mg PO Q6H PRN pain #30 t abs 01/27/24 methocarbamol 500 mg tablet 1,000 mg (2 x 500 mg) PO Q 8H PRN 01/27/24 pain #30 tabs naproxen 500 mg tablet (Naprosyn) 500 mg PO BID #14 ta bs 03/15/24 ibuprofen 800 mg tablet 800 mg PO TID PRN pain #30 t abs 04/02/24 cyclobenzaprine 5 mg tablet 5 mg PO TID PRN muscle spa sm #14 04/07/24 tabs ibuprofen 600 mg tablet 600 mg PO Q6H PRN fever or p ain 04/07/24 #30 tabs ibuprofen 600 mg tablet 600 mg PO Q6H PRN pain #30 t abs 04/07/24 cyclobenzaprine 5 mg tablet 5 mg PO TID PRN muscle spa sm #30 04/11/24 tabs naproxen 500 mg tablet 500 mg PO BID PRN pain #30 t abs 04/11/24 ibuprofen 600 mg tablet 600 mg PO Q8H PRN pain #20 t abs 11/03/24 acetaminophen 500 mg capsule 500 mg PO Q6H PRN pain #3 0 caps 12/03/24 acetaminophen 500 mg capsule 500 mg PO Q6H PRN pain #3 0 caps 12/15/24 cyclobenzaprine 5 mg tablet 5 mg PO TID PRN muscle spa sm #15 12/20/24 tabs lidocaine 5 % topical patch 2 patch topical QDAY PRN p ain #30 12/20/24 (Lidoderm) ea naproxen 500 mg tablet 500 mg PO BID PRN pain #14 t abs 04/04/25 Allergies Allergy/AdvReac Type Severity Reaction Status Date / Time No Known Allergies Allergy Verified 05/30/25 21:16 Review of Systems Review of Systems Systems Reviewed: All systems reviewed, normal except as documented Constitutional Constitutional: Reports system reviewed and no additional complaints, except as documented, Denies fever(s) and Denies headache(s) Eyes Eyes: Reports system reviewed and no additional complaints, except as documented and Denies blurry vision ENT Ears, Nose, Mouth, and Throat: Reports system reviewed and no additional complaints, except as documented, Denies headache(s), Denies nasal congestion and Denies nasal discharge Cardiovascular Cardiovascular: Reports system reviewed and no additional complaints, except as documented, Denies chest pain and Denies dyspnea Respiratory Respiratory: Reports system reviewed and no additional complaints, except as documented, Denies chest congestion, Denies cough and Denies dyspnea Gastrointestinal Gastrointestinal: Reports system reviewed and no additional complaints, except as documented and Denies abdominal pain Musculoskeletal Musculoskeletal: Reports system reviewed and no additional complaints, except as documented, Reports abnormal gait, Reports arthralgias, Denies back pain, Denies deformity, Denies numbness, Reports stiffness and Denies tingling Integumentary/Breasts Skin/Breast: Reports system reviewed and no additional complaints, except as documented and Denies rash Neurologic Neurologic: Reports system reviewed and no additional complaints, except as documented, Reports as per HPI, Reports abnormal gait, Denies headache(s), Denies numbness and Denies tingling Past Medical History Past Medical History NEUROLOGIC: Positive Cerebrovascular Accident; Negative Neurological Disorders CARDIAC: Positive Myocardial Infarction and Hypercholesterolemia; Negative Cardiac Disorders or Congestive Heart Failure RESPIRATORY: Negative Chronic Obstructive Pulmonary Disease (COPD) GASTROINTESTINAL: Negative Gastrointestinal Disorders GENITOURINARY: Negative Genitourinary Disorders or Renal Disease MUSCULOSKELETAL: Negative Musculoskeletal Disorders ENDOCRINE: Negative Endocrine Disorders, Diabetes Mellitus Type 1 or Diabetes Mellitus Type 2 HEMATOLOGIC: Negative Blood Disorders OTHER HISTORY: Negative Autoimmune Disease or Clostridium Difficile Social History SMOKING STATUS: Light (< 1 pack/day) SUBSTANCE USE: methamphetamine ED Exam General Limitations: Present no limitations General appearance: Present alert and in no apparent distress Head Head exam: Present atraumatic, normocephalic and normal inspection Eye Eye exam: Present normal appearance, PERRL and EOMI; Absent conjunctival injection ENT ENT exam: Present normal exam, normal oropharynx and mucous membranes moist Neck Neck exam: Present normal inspection, full ROM and trachea midline Chest Chest inspection: Present normal inspection and symmetric chest wall rise Respiratory Respiratory exam: Present normal lung sounds bilaterally; Absent respiratory distress Cardiovascular Cardiovascular exam: Present regular rate, normal rhythm and normal heart sounds Abdominal Exam Abdominal exam: Present soft and normal bowel sounds; Absent distention, tenderness, guarding, rebound or rigidity Extremities Exam Extremities exam: Present normal inspection and full ROM Back Exam Back exam: Present normal inspection and full ROM Neurological Exam Neurological exam: Present alert, oriented X3, CN II-XII intact, normal gait and reflexes normal; Absent motor sensory deficit Psychiatric Psychiatric exam: Present normal affect and normal mood Skin Skin exam: Present warm, dry, intact and normal color; Absent rash Course Quality Measures none Vital Signs Vital signs: Vital Signs Temperature 98.0 F 05/31/25 07:16 Pulse Rate 81 05/31/25 07:16 Respiratory Rate 17 05/31/25 07:16 Blood Pressure 126/87 H 05/31/25 07:16 Pulse Oximetry (%) 98 05/31/25 07:16 Oxygen Delivery Method Room Air 05/31/25 07:16 O2 saturation 98% on room air within the limits Extremity Problem MDM Narrative MDM Narrative:: 45-year-old male well-known to me presents emergency department today for comp laint of bilateral leg pain patient is homeless patient comes frequently on a daily basis or to get food and water. On exam patient well-appearing patient does not appear toxic no acute distress patient walks with steady gait no acute emergent findings noted Patient given food and water Patient discharged home in no distress to follow-up with primary care doctor in the next 24 to 48 hours and for any worsening symptoms to return to the ER immediately Patient data External records reviewed:: [facility] previous records Clinical information provided by:: patient Social determinants that could affect healthcare access:: housing Patient has the following chronic illnesses:: See history How is presenting disease/condition affected by chronic disease/condition?: caused by Evaluation data The following diagnostics were reviewed and interpreted by me:: other (specify) (N/A) Lab and/or radiology exams considered but not ordered:: Considered not ordered Interpretation Summary: N/A Medications / Prescriptions Medications or Prescriptions considered but not ordered:: No meds Medication administrations:: No meds Consultations Consultation(s) initiated? (list below): No Diagnosis Extremity Problem Differential Diagnosis: superficial thrombophlebitis, deep vein thrombosis of lower extremity and other (Leg pain, homeless) Most likely diagnosis given after review of the tests above:: Chronic leg pain, homelessness Admission Indicated Admission indicated?: not indicated Admission Request Was there a request for admission?: No Disposition Plan Disposition Plan: Discharge Discharge Attestation Discharge Attestation: The patient and all family members were given an opportunity to ask questions and understood the discharge instructions. Discharge instructions specifically effects, indications for sooner follow up or return to the emergency department, and the expected course of current diagnosis. Patient condition: Stable Discharge Plan Plan Patient Disposition: Elopement Discharge Disposition comment: Stable Prescriptions/Referrals Prescriptions/Med Rec: No Action naproxen 500 mg tablet 500 mg PO BID PRN (Reason: pain) Qty: 30 0RF cyclobenzaprine 5 mg tablet 5 mg PO TID PRN (Reason: muscle spasm) Qty: 30 0RF naproxen 500 mg tablet 500 mg PO BID PRN (Reason: pain) Qty: 30 0RF baclofen 10 mg tablet 10 mg PO BID PRN (Reason: muscle spasm) Qty: 30 0RF ibuprofen 800 mg tablet 800 mg PO TID PRN (Reason: pain) Qty: 30 0RF ibuprofen 800 mg tablet 800 mg PO TID PRN (Reason: pain) Qty: 30 0RF ibuprofen 600 mg tablet 600 mg PO Q6H PRN (Reason: pain) Qty: 30 0RF ibuprofen 600 mg tablet 600 mg PO Q8H PRN (Reason: pain) Qty: 20 0RF acetaminophen 500 mg capsule 500 mg PO Q6H PRN (Reason: pain) Qty: 30 0RF lidocaine [Lidoderm] 5 % adhesive patch,medicated 2 patch topical QDAY PRN (Reason: pain) Qty: 30 0RF Rx Instructions: leave on most painful area for up to 12 hrs cyclobenzaprine 5 mg tablet 5 mg PO TID PRN (Reason: muscle spasm) Qty: 15 0RF naproxen 500 mg tablet 500 mg PO BID PRN (Reason: pain) Qty: 14 0RF sulfamethoxazole-trimethoprim [Bactrim DS] 800-160 mg tablet 1 tab PO BID Qty: 14 0RF naproxen 500 mg tablet 500 mg PO BID PRN (Reason: pain) Qty: 30 0RF tamsulosin [Flomax] 0.4 mg capsule 0.4 mg PO QDAY Qty: 30 0RF ibuprofen 600 mg tablet 600 mg PO Q6H PRN (Reason: pain) Qty: 30 0RF methocarbamol 500 mg tablet 1,000 mg PO Q8H PRN (Reason: pain) Qty: 30 0RF naproxen [Naprosyn] 500 mg tablet 500 mg PO BID Qty: 14 0RF ibuprofen 600 mg tablet 600 mg PO Q6H PRN (Reason: fever or pain) Qty: 30 0RF cyclobenzaprine 5 mg tablet 5 mg PO TID PRN (Reason: muscle spasm) Qty: 14 0RF naproxen 500 mg tablet 500 mg PO BID PRN (Reason: pain) Qty: 30 0RF cyclobenzaprine 5 mg tablet 5 mg PO TID PRN (Reason: muscle spasm) Qty: 30 0RF acetaminophen 500 mg capsule 500 mg PO Q6H PRN (Reason: pain) Qty: 30 0RF Referrals: Lavell (PCP),MD Cody [Primary Care Provider] - In 1 week Problem List Clinical Impression: Chronic leg pain, Homeless Patient/Caregiver Discharge Instructions Education Materials: ED RICE Additional Instructions: Please follow up with your primary care doctor in the next 24-48hrs for any worsening symptoms return here immediately Print Language: Georgian 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 sotomayor
[2025-05-31 11:07] VITALS: BP 130/89; PULSE 89; RESP 17; TEMP 36.7; O2SAT 99
--- NOTE | 2025-05-31 16:07 | PC.NURSE ---
PATIENT STATED HE WAS LEAVING AND LEFT ER / HOSPITAL PREMISES
== END 2025-05-31 16:35 | disposition left against medical advice (07) ==
LOC: SERX 07:40
PROVIDERS: Emergency Provider Family Medicine; PCP Family Medicine
DX: M79.604 Pain in right leg (principal); M79.605 Pain in left leg; Z59.00 Homelessness unspecified; Z53.29 Procedure and treatment not carried out because of patient's decision for other reasons
CPT/HCPCS: 99283

== ENCOUNTER 2025-05-31 17:58 | Emergency (ER) | payer MEDICAID, SELFPAY ==
[2025-05-31 17:58] VITALS: BMI 25.0
[2025-05-31 18:33] VITALS: BP 145/89; PULSE 100; RESP 18; TEMP 37.1; O2SAT 97
--- NOTE | 2025-05-31 18:48 | EDNOTE_ITS ---
<Statement entered by Annemarie Cortez MD - 06/02/25 18:54> As co-signing physician, I was present and available for consult prn. I concur with the plan and care as documented by the midlevel provider. ED Extremity Problem RME/HPI General Chief complaint: Extremity Problem,Nontraumatic Stated complaint: SAMI LEG PAIN Time Seen by Provider: 05/31/25 18:29 Arrival date/time: 05/31/25 17:58 RME / HPI RME / HPI Narrative: 45-year-old male, well-known to the ED, presents to the ED with complaint of bilateral lower extremity pain. 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 Related Data Previous Rx's ?Medication ?Instructions ?Recorded sulfamethoxazole 800 1 tab PO BID #14 tabs mg-trimethoprim 160 mg tablet (Bactrim DS) cyclobenzaprine 5 mg tablet 5 mg PO TID PRN muscle spa sm #30 07/23/23 tabs naproxen 500 mg tablet 500 mg PO BID PRN pain #30 t abs 07/23/23 naproxen 500 mg tablet 500 mg PO BID PRN pain #30 t abs 08/08/23 tamsulosin 0.4 mg capsule (Flomax) 0.4 mg PO QDAY #30 caps 08/08/23 baclofen 10 mg tablet 10 mg PO BID PRN muscle spas m #30 08/14/23 tabs naproxen 500 mg tablet 500 mg PO BID PRN pain #30 t abs 08/14/23 ibuprofen 800 mg tablet 800 mg PO TID PRN pain #30 t abs 08/28/23 ibuprofen 600 mg tablet 600 mg PO Q6H PRN pain #30 t abs 01/27/24 methocarbamol 500 mg tablet 1,000 mg (2 x 500 mg) PO Q 8H PRN 01/27/24 pain #30 tabs naproxen 500 mg tablet (Naprosyn) 500 mg PO BID #14 ta bs 03/15/24 ibuprofen 800 mg tablet 800 mg PO TID PRN pain #30 t abs 04/02/24 cyclobenzaprine 5 mg tablet 5 mg PO TID PRN muscle spa sm #14 04/07/24 tabs ibuprofen 600 mg tablet 600 mg PO Q6H PRN fever or p ain 04/07/24 #30 tabs ibuprofen 600 mg tablet 600 mg PO Q6H PRN pain #30 t abs 04/07/24 cyclobenzaprine 5 mg tablet 5 mg PO TID PRN muscle spa sm #30 04/11/24 tabs naproxen 500 mg tablet 500 mg PO BID PRN pain #30 t abs 04/11/24 ibuprofen 600 mg tablet 600 mg PO Q8H PRN pain #20 t abs 11/03/24 acetaminophen 500 mg capsule 500 mg PO Q6H PRN pain #3 0 caps 12/03/24 acetaminophen 500 mg capsule 500 mg PO Q6H PRN pain #3 0 caps 12/15/24 cyclobenzaprine 5 mg tablet 5 mg PO TID PRN muscle spa sm #15 12/20/24 tabs lidocaine 5 % topical patch 2 patch topical QDAY PRN p ain #30 12/20/24 (Lidoderm) ea naproxen 500 mg tablet 500 mg PO BID PRN pain #14 t abs 04/04/25 Allergies Allergy/AdvReac Type Severity Reaction Status Date / Time No Known Allergies Allergy Verified 05/31/25 18:00 Review of Systems Review of Systems Systems Reviewed: All systems reviewed, normal except as documented Past Medical History Past Medical History NEUROLOGIC: Positive Cerebrovascular Accident; Negative Neurological Disorders CARDIAC: Positive Myocardial Infarction and Hypercholesterolemia; Negative Cardiac Disorders or Congestive Heart Failure RESPIRATORY: Negative Chronic Obstructive Pulmonary Disease (COPD) GASTROINTESTINAL: Negative Gastrointestinal Disorders GENITOURINARY: Negative Genitourinary Disorders or Renal Disease MUSCULOSKELETAL: Negative Musculoskeletal Disorders ENDOCRINE: Negative Endocrine Disorders, Diabetes Mellitus Type 1 or Diabetes Mellitus Type 2 HEMATOLOGIC: Negative Blood Disorders OTHER HISTORY: Negative Autoimmune Disease or Clostridium Difficile Social History SMOKING STATUS: Never smoker SUBSTANCE USE: methamphetamine ED Exam Narrative Physical exam: Alert and oriented, rapid pressured speech, no acute distress. Lungs are clear, regular rate and rhythm without murmurs, moves all extremities well. Ambulatory without difficulty. Abdomen is nondistended. Course Course Course Narrative: No medications were provided to the patient as he has multiple medications waiting at the pharmacy to be filled and picked up. He has already been seen once this morning, and has been seen 10 times in the past 5 days. Quality Measures none Orders N/A Vital Signs Vital signs: Vital Signs Temperature 98.8 F 05/31/25 18:33 Pulse Rate 100 05/31/25 18:33 Respiratory Rate 18 05/31/25 18:33 Blood Pressure 145/89 H 05/31/25 18:33 Pulse Oximetry (%) 97 05/31/25 18:33 Oxygen Delivery Method Room Air 05/31/25 18:33 Extremity Problem Patient data External records reviewed:: [facility] previous records Clinical information provided by:: patient Social determinants that could affect healthcare access:: housing Patient has the following chronic illnesses:: Chronic pain, homelessness How is presenting disease/condition affected by chronic disease/condition?: exacerbated by Evaluation data The following diagnostics were reviewed and interpreted by me:: other (specify) (N/A) Lab and/or radiology exams considered but not ordered:: N/A Interpretation Summary: N/A Medications / Prescriptions Medications or Prescriptions considered but not ordered:: N/A Medication administrations:: N/A Consultations Consultation(s) initiated? (list below): No Diagnosis Extremity Problem Differential Diagnosis: cellulitis, lower extremity edema, deep vein thrombosis of lower extremity and other (Chronic pain bilateral lower extremities) Most likely diagnosis given after review of the tests above:: Chronic pain bilateral lower extremities Admission Indicated Admission indicated?: not indicated Explain why admission is indicated or not indicated:: Patient is stable for discharge. 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 Admission Request Was there a request for admission?: No Admission Attestation Admission request attestation: N/A Disposition Plan Disposition Plan: Discharge Discharge Attestation Discharge Attestation: The patient and all family members were given an opportunity to ask questions and understood the discharge instructions. Discharge instructions specifically effects, indications for sooner follow up or return to the emergency department, and the expected course of current diagnosis. Patient condition: Stable Discharge Plan Plan Patient Disposition: HOME (Self Care) Discharge Disposition comment: Stable Prescriptions/Referrals Prescriptions/Med Rec: No Action naproxen 500 mg tablet 500 mg PO BID PRN (Reason: pain) Qty: 30 0RF cyclobenzaprine 5 mg tablet 5 mg PO TID PRN (Reason: muscle spasm) Qty: 30 0RF naproxen 500 mg tablet 500 mg PO BID PRN (Reason: pain) Qty: 30 0RF baclofen 10 mg tablet 10 mg PO BID PRN (Reason: muscle spasm) Qty: 30 0RF ibuprofen 800 mg tablet 800 mg PO TID PRN (Reason: pain) Qty: 30 0RF ibuprofen 800 mg tablet 800 mg PO TID PRN (Reason: pain) Qty: 30 0RF ibuprofen 600 mg tablet 600 mg PO Q6H PRN (Reason: pain) Qty: 30 0RF ibuprofen 600 mg tablet 600 mg PO Q8H PRN (Reason: pain) Qty: 20 0RF acetaminophen 500 mg capsule 500 mg PO Q6H PRN (Reason: pain) Qty: 30 0RF lidocaine [Lidoderm] 5 % adhesive patch,medicated 2 patch topical QDAY PRN (Reason: pain) Qty: 30 0RF Rx Instructions: leave on most painful area for up to 12 hrs cyclobenzaprine 5 mg tablet 5 mg PO TID PRN (Reason: muscle spasm) Qty: 15 0RF naproxen 500 mg tablet 500 mg PO BID PRN (Reason: pain) Qty: 14 0RF sulfamethoxazole-trimethoprim [Bactrim DS] 800-160 mg tablet 1 tab PO BID Qty: 14 0RF naproxen 500 mg tablet 500 mg PO BID PRN (Reason: pain) Qty: 30 0RF tamsulosin [Flomax] 0.4 mg capsule 0.4 mg PO QDAY Qty: 30 0RF ibuprofen 600 mg tablet 600 mg PO Q6H PRN (Reason: pain) Qty: 30 0RF methocarbamol 500 mg tablet 1,000 mg PO Q8H PRN (Reason: pain) Qty: 30 0RF naproxen [Naprosyn] 500 mg tablet 500 mg PO BID Qty: 14 0RF ibuprofen 600 mg tablet 600 mg PO Q6H PRN (Reason: fever or pain) Qty: 30 0RF cyclobenzaprine 5 mg tablet 5 mg PO TID PRN (Reason: muscle spasm) Qty: 14 0RF naproxen 500 mg tablet 500 mg PO BID PRN (Reason: pain) Qty: 30 0RF cyclobenzaprine 5 mg tablet 5 mg PO TID PRN (Reason: muscle spasm) Qty: 30 0RF acetaminophen 500 mg capsule 500 mg PO Q6H PRN (Reason: pain) Qty: 30 0RF Referrals: Lavell (PCP)Cody MD [Primary Care Provider] - In 1 week Problem List Clinical Impression: Chronic leg pain, Homeless Patient/Caregiver Discharge Instructions Education Materials: ED Chronic Pain 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 You have been prescribed multiple medications to help control your pain including naproxen, methocarbamol, Lidoderm patches, ibuprofen, cyclobenzaprine, baclofen, and Tylenol. These are all waiting for you at the pharmacy. Follow-up with your primary care physician in 24 to 48 hours. Return to the ED for any new or worsening symptoms. Print Language: Libyan Stand Alone Forms: Tami Award Info., Patient Portal Info Letter PA/HEALTH COUNSELOR Supervising Physician PA/HEALTH COUNSELOR Supervising Physician: Dr. Cortez
[2025-05-31 19:05] VITALS: RESP 18
== END 2025-05-31 19:06 | disposition home or self-care (01) ==
PROVIDERS: Emergency Provider Emergency Medicine; PCP Family Medicine
DX: M79.604 Pain in right leg (principal); M79.605 Pain in left leg; G89.29 Other chronic pain; Z59.00 Homelessness unspecified
CPT/HCPCS: 99283

== ENCOUNTER 2025-05-31 20:02 | Emergency (ER) | payer MEDICAID, SELFPAY ==
--- NOTE | 2025-05-31 21:44 | PC.NURSE ---
PT INFORMED SECURITY THAT HE IS LEAVING ER.
== END 2025-05-31 21:45 | disposition left against medical advice (07) ==
LOC: SERX 21:52
PROVIDERS: Emergency Provider Emergency Medicine; PCP Family Medicine
DX: Z53.21 Procedure and treatment not carried out due to patient leaving prior to being seen by health care provider (principal)
CPT/HCPCS: 99283

== ENCOUNTER 2025-06-01 04:53 | Emergency (ER) | payer MEDICAID, SELFPAY ==
[2025-06-01 05:08] VITALS: BP 135/80; PULSE 90; RESP 12; TEMP 37.1; O2SAT 97
--- NOTE | 2025-06-01 05:34 | PC.NURSE ---
After talking to provider pt took off ER
--- NOTE | 2025-06-01 05:37 | EDNOTE_ITS ---
<Statement entered by Annemarie Cortez MD - 06/01/25 21:40> As co-signing physician, I was present and available for consult prn. I concur with the plan and care as documented by the midlevel provider. ED General RME/HPI General Chief complaint: General Adult/Misc Complain Stated complaint: LEG PAIN Time Seen by Provider: 06/01/25 05:25 Source: patient Arrival date/time: 06/01/25 04:53 Mode of arrival: ambulatory RME / HPI RME / HPI narrative: 45-year-old male presents to the ED for the fourth time today complaining of chronic leg pain. He has not picked up his multiple prescriptions from the pharmacy because he missed the bus . Related Data Previous Rx's ?Medication ?Instructions ?Recorded sulfamethoxazole 800 1 tab PO BID #14 tabs mg-trimethoprim 160 mg tablet (Bactrim DS) cyclobenzaprine 5 mg tablet 5 mg PO TID PRN muscle spa sm #30 07/23/23 tabs naproxen 500 mg tablet 500 mg PO BID PRN pain #30 t abs 07/23/23 naproxen 500 mg tablet 500 mg PO BID PRN pain #30 t abs 08/08/23 tamsulosin 0.4 mg capsule (Flomax) 0.4 mg PO QDAY #30 caps 08/08/23 baclofen 10 mg tablet 10 mg PO BID PRN muscle spas m #30 08/14/23 tabs naproxen 500 mg tablet 500 mg PO BID PRN pain #30 t abs 08/14/23 ibuprofen 800 mg tablet 800 mg PO TID PRN pain #30 t abs 08/28/23 ibuprofen 600 mg tablet 600 mg PO Q6H PRN pain #30 t abs 01/27/24 methocarbamol 500 mg tablet 1,000 mg (2 x 500 mg) PO Q 8H PRN 01/27/24 pain #30 tabs naproxen 500 mg tablet (Naprosyn) 500 mg PO BID #14 ta bs 03/15/24 ibuprofen 800 mg tablet 800 mg PO TID PRN pain #30 t abs 04/02/24 cyclobenzaprine 5 mg tablet 5 mg PO TID PRN muscle spa sm #14 04/07/24 tabs ibuprofen 600 mg tablet 600 mg PO Q6H PRN fever or p ain 04/07/24 #30 tabs ibuprofen 600 mg tablet 600 mg PO Q6H PRN pain #30 t abs 04/07/24 cyclobenzaprine 5 mg tablet 5 mg PO TID PRN muscle spa sm #30 04/11/24 tabs naproxen 500 mg tablet 500 mg PO BID PRN pain #30 t abs 04/11/24 ibuprofen 600 mg tablet 600 mg PO Q8H PRN pain #20 t abs 11/03/24 acetaminophen 500 mg capsule 500 mg PO Q6H PRN pain #3 0 caps 12/03/24 acetaminophen 500 mg capsule 500 mg PO Q6H PRN pain #3 0 caps 12/15/24 cyclobenzaprine 5 mg tablet 5 mg PO TID PRN muscle spa sm #15 12/20/24 tabs lidocaine 5 % topical patch 2 patch topical QDAY PRN p ain #30 12/20/24 (Lidoderm) ea naproxen 500 mg tablet 500 mg PO BID PRN pain #14 t abs 04/04/25 Allergies Allergy/AdvReac Type Severity Reaction Status Date / Time No Known Allergies Allergy Verified 05/31/25 20:13 Review of Systems Review of Systems Systems Reviewed: All systems reviewed, normal except as documented Past Medical History Past Medical History NEUROLOGIC: Positive Cerebrovascular Accident; Negative Neurological Disorders CARDIAC: Positive Myocardial Infarction and Hypercholesterolemia; Negative Cardiac Disorders or Congestive Heart Failure RESPIRATORY: Negative Chronic Obstructive Pulmonary Disease (COPD) GASTROINTESTINAL: Negative Gastrointestinal Disorders GENITOURINARY: Negative Genitourinary Disorders or Renal Disease MUSCULOSKELETAL: Negative Musculoskeletal Disorders ENDOCRINE: Negative Endocrine Disorders, Diabetes Mellitus Type 1 or Diabetes Mellitus Type 2 HEMATOLOGIC: Negative Blood Disorders OTHER HISTORY: Negative Autoimmune Disease or Clostridium Difficile Social History SMOKING STATUS: Current some day smoker SUBSTANCE USE: methamphetamine ED Exam Narrative Physical exam: He is alert, nontoxic-appearing, no acute distress. No respiratory distress noted. He is ambulatory. No erythema or edema is noted to the bilateral lower extremities. 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 Quality Measures none Orders N/A Vital Signs Vital signs: Vital Signs Temperature 98.7 F 06/01/25 05:08 Pulse Rate 90 06/01/25 05:08 Respiratory Rate 12 06/01/25 05:08 Blood Pressure 135/80 H 06/01/25 05:08 Pulse Oximetry (%) 97 06/01/25 05:08 Oxygen Delivery Method Room Air 06/01/25 05:08 Discharge Plan Plan Patient Disposition: HOME (Self Care) Discharge Disposition comment: Stable Prescriptions/Referrals Prescriptions/Med Rec: No Action naproxen 500 mg tablet 500 mg PO BID PRN (Reason: pain) Qty: 30 0RF cyclobenzaprine 5 mg tablet 5 mg PO TID PRN (Reason: muscle spasm) Qty: 30 0RF naproxen 500 mg tablet 500 mg PO BID PRN (Reason: pain) Qty: 30 0RF baclofen 10 mg tablet 10 mg PO BID PRN (Reason: muscle spasm) Qty: 30 0RF ibuprofen 800 mg tablet 800 mg PO TID PRN (Reason: pain) Qty: 30 0RF ibuprofen 800 mg tablet 800 mg PO TID PRN (Reason: pain) Qty: 30 0RF ibuprofen 600 mg tablet 600 mg PO Q6H PRN (Reason: pain) Qty: 30 0RF ibuprofen 600 mg tablet 600 mg PO Q8H PRN (Reason: pain) Qty: 20 0RF acetaminophen 500 mg capsule 500 mg PO Q6H PRN (Reason: pain) Qty: 30 0RF lidocaine [Lidoderm] 5 % adhesive patch,medicated 2 patch topical QDAY PRN (Reason: pain) Qty: 30 0RF Rx Instructions: leave on most painful area for up to 12 hrs cyclobenzaprine 5 mg tablet 5 mg PO TID PRN (Reason: muscle spasm) Qty: 15 0RF naproxen 500 mg tablet 500 mg PO BID PRN (Reason: pain) Qty: 14 0RF sulfamethoxazole-trimethoprim [Bactrim DS] 800-160 mg tablet 1 tab PO BID Qty: 14 0RF naproxen 500 mg tablet 500 mg PO BID PRN (Reason: pain) Qty: 30 0RF tamsulosin [Flomax] 0.4 mg capsule 0.4 mg PO QDAY Qty: 30 0RF ibuprofen 600 mg tablet 600 mg PO Q6H PRN (Reason: pain) Qty: 30 0RF methocarbamol 500 mg tablet 1,000 mg PO Q8H PRN (Reason: pain) Qty: 30 0RF naproxen [Naprosyn] 500 mg tablet 500 mg PO BID Qty: 14 0RF ibuprofen 600 mg tablet 600 mg PO Q6H PRN (Reason: fever or pain) Qty: 30 0RF cyclobenzaprine 5 mg tablet 5 mg PO TID PRN (Reason: muscle spasm) Qty: 14 0RF naproxen 500 mg tablet 500 mg PO BID PRN (Reason: pain) Qty: 30 0RF cyclobenzaprine 5 mg tablet 5 mg PO TID PRN (Reason: muscle spasm) Qty: 30 0RF acetaminophen 500 mg capsule 500 mg PO Q6H PRN (Reason: pain) Qty: 30 0RF Problem List Clinical Impression: Chronic leg pain Patient/Caregiver Discharge Instructions Education Materials: ED Chronic Pain 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 Follow-up with your primary care physician in 24 to 48 hours. Return to the ED for any new or worsening symptoms. Print Language: Omani Stand Alone Forms: Tami Award Info., Patient Portal Info Letter PA/DEVYN Supervising Physician PA/DEVYN Supervising Physician: Dr. Cortez [facility] Narrative [facility] hospital course: 45-year-old male presents to the ED for the fourth time today complaining of chronic leg pain. He has not picked up his multiple prescriptions from the pharmacy because he missed the bus . He is alert, nontoxic-appearing, no acute distress. No respiratory distress noted. He is ambulatory. No erythema or edema is noted to the bilateral lower extremities. 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 No medications were given during his visit. He was discharged home in stable condition. Procedures done or offered: N/A Clinical Information Provided by patient Medical Records Reviewed [facility] Meds/Rx Considered, not Ordered None Describe details: N/A Labs/Rad/Tests considered, not Ordered None Describe details: N/A Chronic Illness/Social Conditions which may negatively complicate care or outcome(s)-explain: Homeless, Mental health and Hx of noncompliance EKG EKG not done EKG Interpretation narrative: N/A Lab Interpretation Labs: none Lab(s) interpretation(s): N/A Imaging Imaging interpretation: none Radiology reports / interpretation(s): N/A Medication Administration(s) none N/A Diagnosis Differential diagnosis: Chronic bilateral leg pain Most likely dx, and/or detailed dx discussion: Chronic bilateral leg pain Dispositon Disposition: Discharge Home
== END 2025-06-01 05:45 | disposition home or self-care (01) ==
LOC: SERX 06:09
PROVIDERS: Emergency Provider Physician Assistant
DX: M79.605 Pain in left leg (principal); M79.604 Pain in right leg; G89.29 Other chronic pain
CPT/HCPCS: 99283

== ENCOUNTER 2025-06-01 09:13 | Emergency (ER) | payer MEDICAID, SELFPAY ==
[2025-06-01 09:35] VITALS: BP 123/84; PULSE 84; RESP 19; TEMP 37.2; O2SAT 97; BMI 24.5
--- NOTE | 2025-06-01 10:20 | EDNOTE_ITS ---
Lower Extremity Injury RME/HPI General Stated Complaint: BIBA FOR LEG PAIN Time Seen by Provider: 06/01/25 09:34 Arrival date/time: 06/01/25 09:13 This is a 45-year-old male well-known to me presents emergency department today for complaint of bilateral leg pain. Patient is homeless patient comes frequently on a daily basis or to get food and water and medication for chronic leg pain Related Data Previous Rx's ?Medication ?Instructions ?Recorded sulfamethoxazole 800 1 tab PO BID #14 tabs mg-trimethoprim 160 mg tablet (Bactrim DS) cyclobenzaprine 5 mg tablet 5 mg PO TID PRN muscle spa sm #30 07/23/23 tabs naproxen 500 mg tablet 500 mg PO BID PRN pain #30 t abs 07/23/23 naproxen 500 mg tablet 500 mg PO BID PRN pain #30 t abs 08/08/23 tamsulosin 0.4 mg capsule (Flomax) 0.4 mg PO QDAY #30 caps 08/08/23 baclofen 10 mg tablet 10 mg PO BID PRN muscle spas m #30 08/14/23 tabs naproxen 500 mg tablet 500 mg PO BID PRN pain #30 t abs 08/14/23 ibuprofen 800 mg tablet 800 mg PO TID PRN pain #30 t abs 08/28/23 ibuprofen 600 mg tablet 600 mg PO Q6H PRN pain #30 t abs 01/27/24 methocarbamol 500 mg tablet 1,000 mg (2 x 500 mg) PO Q 8H PRN 01/27/24 pain #30 tabs naproxen 500 mg tablet (Naprosyn) 500 mg PO BID #14 ta bs 03/15/24 ibuprofen 800 mg tablet 800 mg PO TID PRN pain #30 t abs 04/02/24 cyclobenzaprine 5 mg tablet 5 mg PO TID PRN muscle spa sm #14 04/07/24 tabs ibuprofen 600 mg tablet 600 mg PO Q6H PRN fever or p ain 04/07/24 #30 tabs ibuprofen 600 mg tablet 600 mg PO Q6H PRN pain #30 t abs 04/07/24 cyclobenzaprine 5 mg tablet 5 mg PO TID PRN muscle spa sm #30 04/11/24 tabs naproxen 500 mg tablet 500 mg PO BID PRN pain #30 t abs 04/11/24 ibuprofen 600 mg tablet 600 mg PO Q8H PRN pain #20 t abs 11/03/24 acetaminophen 500 mg capsule 500 mg PO Q6H PRN pain #3 0 caps 12/03/24 acetaminophen 500 mg capsule 500 mg PO Q6H PRN pain #3 0 caps 12/15/24 cyclobenzaprine 5 mg tablet 5 mg PO TID PRN muscle spa sm #15 12/20/24 tabs lidocaine 5 % topical patch 2 patch topical QDAY PRN p ain #30 12/20/24 (Lidoderm) ea naproxen 500 mg tablet 500 mg PO BID PRN pain #14 t abs 04/04/25 Allergies Allergy/AdvReac Type Severity Reaction Status Date / Time No Known Allergies Allergy Verified 06/10/25 18:15 Review of Systems Review of Systems Systems Reviewed: All systems reviewed, normal except as documented Past Medical History Past Medical History NEUROLOGIC: Positive Cerebrovascular Accident; Negative Neurological Disorders CARDIAC: Positive Myocardial Infarction and Hypercholesterolemia; Negative Cardiac Disorders or Congestive Heart Failure RESPIRATORY: Negative Chronic Obstructive Pulmonary Disease (COPD) GASTROINTESTINAL: Negative Gastrointestinal Disorders GENITOURINARY: Negative Genitourinary Disorders or Renal Disease MUSCULOSKELETAL: Negative Musculoskeletal Disorders ENDOCRINE: Negative Endocrine Disorders, Diabetes Mellitus Type 1 or Diabetes Mellitus Type 2 HEMATOLOGIC: Negative Blood Disorders OTHER HISTORY: Negative Autoimmune Disease or Clostridium Difficile Social History SMOKING STATUS: Current every day smoker SUBSTANCE USE: methamphetamine ED Exam Narrative Physical exam: VITAL SIGNS: Reviewed. GENERAL APPEARANCE: Alert and interactive, follows commands, no acute distress HEAD AND FACE: Non-traumatic. ENT: PERRL, conjuctiva pink and clear, eyelid no trauma, Mucous membrane moist. NECK: Supple, nontender, no nuchal rigidity. CHEST: No tenderness, no crepitus, no paradoxical movement, no retractions. LUNGS: breathing even and unlabored HEART: Regular rate, cap refill less than 2 seconds ABDOMEN: Soft, nondistended, no guarding, nontender NEUROLOGICAL: Gross motor function intact sensory function intact, Appropriate for age. MUSCULOSKELETAL: low back nontender, full range of motion. EXTREMITIES: No redness no swelling no skin breakdown on bilateral foot and leg. Distal neurovascular status intact bilateral foot SKIN: Color pink, dry, no rash, no lacerations, no abrasions, no contusions. Course Quality Measures none Orders Category Date Time Status Ibuprofen Tab [Motrin Tab] Med 06/01/25 10:10 Discontinued 800 mg PO X1 ONE Vital Signs Vital signs: Vital Signs Temperature 99.0 F 06/01/25 09:35 Pulse Rate 84 06/01/25 09:35 Respiratory Rate 19 06/01/25 09:35 Blood Pressure 123/84 06/01/25 09:35 Pulse Oximetry (%) 97 06/01/25 09:35 Oxygen Delivery Method Room Air 06/01/25 09:35 Extremity Injury, Lower MDM Narrative MDM Narrative:: On exam patient well-appearing patient does not appear toxic no acute distress patient walks with steady gait with no acute emergent findings noted Patient discharged home in no distress to follow-up with primary care doctor in the next 24 to 48 hours and for any worsening symptoms to return to the ER immediately Patient data External records reviewed:: [facility] previous records Clinical information provided by:: patient Social determinants that could affect healthcare access:: none Patient has the following chronic illnesses:: none How is presenting disease/condition affected by chronic disease/condition?: no chronic disease Evaluation data The following diagnostics were reviewed and interpreted by me:: other (specify) (none ) Lab and/or radiology exams considered but not ordered:: none Interpretation Summary: see note Medications / Prescriptions Medications or Prescriptions considered but not ordered:: none Medication administrations:: Medication Administration History Discontinued Medications Ibuprofen (Ibuprofen Tab 400 Mg Tablet) 800 mg PO X1 ONE Stop: 06/01/25 10:11 Last Admin: 06/01/25 10:28 Dose: 800 mg Documented By: see mar Consultations Consultation(s) initiated? (list below): No Diagnosis Most likely diagnosis given after review of the tests above:: chronic leg pain Admission Indicated Admission indicated?: not indicated Admission Request Was there a request for admission?: No Disposition Plan Disposition Plan: Discharge Discharge Attestation Discharge Attestation: The patient and all family members were given an opportunity to ask questions and understood the discharge instructions. Discharge instructions specifically effects, indications for sooner follow up or return to the emergency department, and the expected course of current diagnosis. Patient condition: Stable Discharge Plan Plan Patient Disposition: HOME (Self Care) Patient condition on transfer: Stable Prescriptions/Referrals Prescriptions/Med Rec: No Action naproxen 500 mg tablet 500 mg PO BID PRN (Reason: pain) Qty: 30 0RF cyclobenzaprine 5 mg tablet 5 mg PO TID PRN (Reason: muscle spasm) Qty: 30 0RF naproxen 500 mg tablet 500 mg PO BID PRN (Reason: pain) Qty: 30 0RF baclofen 10 mg tablet 10 mg PO BID PRN (Reason: muscle spasm) Qty: 30 0RF ibuprofen 800 mg tablet 800 mg PO TID PRN (Reason: pain) Qty: 30 0RF ibuprofen 800 mg tablet 800 mg PO TID PRN (Reason: pain) Qty: 30 0RF ibuprofen 600 mg tablet 600 mg PO Q6H PRN (Reason: pain) Qty: 30 0RF ibuprofen 600 mg tablet 600 mg PO Q8H PRN (Reason: pain) Qty: 20 0RF acetaminophen 500 mg capsule 500 mg PO Q6H PRN (Reason: pain) Qty: 30 0RF lidocaine [Lidoderm] 5 % adhesive patch,medicated 2 patch topical QDAY PRN (Reason: pain) Qty: 30 0RF Rx Instructions: leave on most painful area for up to 12 hrs cyclobenzaprine 5 mg tablet 5 mg PO TID PRN (Reason: muscle spasm) Qty: 15 0RF naproxen 500 mg tablet 500 mg PO BID PRN (Reason: pain) Qty: 14 0RF sulfamethoxazole-trimethoprim [Bactrim DS] 800-160 mg tablet 1 tab PO BID Qty: 14 0RF naproxen 500 mg tablet 500 mg PO BID PRN (Reason: pain) Qty: 30 0RF tamsulosin [Flomax] 0.4 mg capsule 0.4 mg PO QDAY Qty: 30 0RF ibuprofen 600 mg tablet 600 mg PO Q6H PRN (Reason: pain) Qty: 30 0RF methocarbamol 500 mg tablet 1,000 mg PO Q8H PRN (Reason: pain) Qty: 30 0RF naproxen [Naprosyn] 500 mg tablet 500 mg PO BID Qty: 14 0RF ibuprofen 600 mg tablet 600 mg PO Q6H PRN (Reason: fever or pain) Qty: 30 0RF cyclobenzaprine 5 mg tablet 5 mg PO TID PRN (Reason: muscle spasm) Qty: 14 0RF naproxen 500 mg tablet 500 mg PO BID PRN (Reason: pain) Qty: 30 0RF cyclobenzaprine 5 mg tablet 5 mg PO TID PRN (Reason: muscle spasm) Qty: 30 0RF acetaminophen 500 mg capsule 500 mg PO Q6H PRN (Reason: pain) Qty: 30 0RF Problem List Clinical Impression: Chronic leg pain Patient/Caregiver Discharge Instructions Discharge Activity: activity as tolerated Education Materials: ED Chronic Pain, ED RICE Additional Instructions: Follow up with primary provider in 1-2 days. Come back to ED if symptoms change or worsen Print Language: Occitan Stand Alone Forms: Tami Award Info., Patient Portal Info Letter PA/POTATO PEELING MACHINE OPERATOR Supervising Physician PA/POTATO PEELING MACHINE OPERATOR Supervising Physician: annika
[2025-06-01] MEDS: IBUPROFEN TAB 400 MG TABLET 800 MG PO (10:28)
== END 2025-06-01 12:47 | disposition home or self-care (01) ==
LOC: SERX 10:25
PROVIDERS: Emergency Provider Nurse Practitioner Family; PCP Family Medicine
DX: G89.29 Other chronic pain (principal); M79.605 Pain in left leg; M79.604 Pain in right leg; Z59.00 Homelessness unspecified
CPT/HCPCS: 99282; A9270

== ENCOUNTER 2025-06-01 18:00 | Emergency (ER) | payer MEDICAID, SELFPAY ==
--- NOTE | 2025-06-01 18:04 | EDNOTE_ITS ---
ED Extremity Problem RME/HPI General Chief complaint: Extremity Problem,Nontraumatic Stated complaint: BIBA FOR BILATERAL LEG PAIN Time Seen by Provider: 06/01/25 18:03 Arrival date/time: 06/01/25 18:00 Mode of arrival: EMS Limitations: no limitations RME / HPI RME / HPI Narrative: 45 year old male here with chronic leg pain without acute changes or injury. He was brought in by EMS. He is ambulating at baseline. He has frequent visits for this. He has no other complaints or concerns. Related Data Previous Rx's ?Medication ?Instructions ?Recorded sulfamethoxazole 800 1 tab PO BID #14 tabs mg-trimethoprim 160 mg tablet (Bactrim DS) cyclobenzaprine 5 mg tablet 5 mg PO TID PRN muscle spa sm #30 07/23/23 tabs naproxen 500 mg tablet 500 mg PO BID PRN pain #30 t abs 07/23/23 naproxen 500 mg tablet 500 mg PO BID PRN pain #30 t abs 08/08/23 tamsulosin 0.4 mg capsule (Flomax) 0.4 mg PO QDAY #30 caps 08/08/23 baclofen 10 mg tablet 10 mg PO BID PRN muscle spas m #30 08/14/23 tabs naproxen 500 mg tablet 500 mg PO BID PRN pain #30 t abs 08/14/23 ibuprofen 800 mg tablet 800 mg PO TID PRN pain #30 t abs 08/28/23 ibuprofen 600 mg tablet 600 mg PO Q6H PRN pain #30 t abs 01/27/24 methocarbamol 500 mg tablet 1,000 mg (2 x 500 mg) PO Q 8H PRN 01/27/24 pain #30 tabs naproxen 500 mg tablet (Naprosyn) 500 mg PO BID #14 ta bs 03/15/24 ibuprofen 800 mg tablet 800 mg PO TID PRN pain #30 t abs 04/02/24 cyclobenzaprine 5 mg tablet 5 mg PO TID PRN muscle spa sm #14 04/07/24 tabs ibuprofen 600 mg tablet 600 mg PO Q6H PRN fever or p ain 04/07/24 #30 tabs ibuprofen 600 mg tablet 600 mg PO Q6H PRN pain #30 t abs 04/07/24 cyclobenzaprine 5 mg tablet 5 mg PO TID PRN muscle spa sm #30 04/11/24 tabs naproxen 500 mg tablet 500 mg PO BID PRN pain #30 t abs 04/11/24 ibuprofen 600 mg tablet 600 mg PO Q8H PRN pain #20 t abs 11/03/24 acetaminophen 500 mg capsule 500 mg PO Q6H PRN pain #3 0 caps 12/03/24 acetaminophen 500 mg capsule 500 mg PO Q6H PRN pain #3 0 caps 12/15/24 cyclobenzaprine 5 mg tablet 5 mg PO TID PRN muscle spa sm #15 12/20/24 tabs lidocaine 5 % topical patch 2 patch topical QDAY PRN p ain #30 12/20/24 (Lidoderm) ea naproxen 500 mg tablet 500 mg PO BID PRN pain #14 t abs 04/04/25 Allergies Allergy/AdvReac Type Severity Reaction Status Date / Time No Known Allergies Allergy Verified 06/01/25 18:01 Review of Systems Review of Systems Systems Reviewed: All systems reviewed, normal except as documented ED Exam General Limitations: Present no limitations General appearance: Present alert and in no apparent distress Head Head exam: Present atraumatic Eye Eye exam: Present normal appearance, PERRL and EOMI ENT ENT exam: Present normal exam, normal oropharynx and mucous membranes moist Neck Neck exam: Present normal inspection, full ROM and trachea midline Chest Chest inspection: Present normal inspection and symmetric chest wall rise Respiratory Respiratory exam: Present normal lung sounds bilaterally Cardiovascular Cardiovascular exam: Present regular rate, normal rhythm and normal heart sounds Abdominal Exam Abdominal exam: Present soft and normal bowel sounds Extremities Exam Extremities exam: Present normal inspection and full ROM Back Exam Back exam: Present normal inspection and full ROM Neurological Exam Neurological exam: Present alert and oriented X3 Psychiatric Psychiatric exam: Present other (affect is flat) Skin Skin exam: Present warm, dry, intact and normal color Course Quality Measures none Vital Signs Vital signs: Vital Signs Temperature 98.7 F 06/01/25 18:12 Pulse Rate 91 06/01/25 18:12 Respiratory Rate 18 06/01/25 18:12 Blood Pressure 117/83 06/01/25 18:12 Pulse Oximetry (%) 98 06/01/25 18:12 Oxygen Delivery Method Room Air 06/01/25 18:12 Extremity Problem MDM Narrative MDM Narrative:: 45 year old male here with chronic leg pain without acute changes or injury. He was brought in by EMS. He is ambulating at baseline. He has frequent visits for this. He has no other complaints or concerns. On exam patient is non-toxic appearing. He is ambulating at baseline. VSS. He will be dicharged from the ED. Patient data External records reviewed:: [facility] previous records and EMS form Clinical information provided by:: patient and EMS Social determinants that could affect healthcare access:: mental health Patient has the following chronic illnesses:: schizoprenia How is presenting disease/condition affected by chronic disease/condition?: exacerbated by Evaluation data The following diagnostics were reviewed and interpreted by me:: other (specify) (n/a) Lab and/or radiology exams considered but not ordered:: n/a Interpretation Summary: n/a Medications / Prescriptions Medications or Prescriptions considered but not ordered:: n/a Medication administrations:: n/a Consultations Consultation(s) initiated? (list below): No Diagnosis Extremity Problem Differential Diagnosis: cellulitis, lower extremity edema and other (chronic pain) Most likely diagnosis given after review of the tests above:: chronic leg pain Admission Indicated Admission indicated?: not indicated Admission Request Was there a request for admission?: No Disposition Plan Disposition Plan: Discharge Discharge Attestation Discharge Attestation: The patient and all family members were given an opportunity to ask questions and understood the discharge instructions. Discharge instructions specifically effects, indications for sooner follow up or return to the emergency department, and the expected course of current diagnosis. Patient condition: Stable Discharge Plan Plan Patient Disposition: HOME (Self Care) Patient condition on transfer: Stable Prescriptions/Referrals Prescriptions/Med Rec: No Action naproxen 500 mg tablet 500 mg PO BID PRN (Reason: pain) Qty: 30 0RF cyclobenzaprine 5 mg tablet 5 mg PO TID PRN (Reason: muscle spasm) Qty: 30 0RF naproxen 500 mg tablet 500 mg PO BID PRN (Reason: pain) Qty: 30 0RF baclofen 10 mg tablet 10 mg PO BID PRN (Reason: muscle spasm) Qty: 30 0RF ibuprofen 800 mg tablet 800 mg PO TID PRN (Reason: pain) Qty: 30 0RF ibuprofen 800 mg tablet 800 mg PO TID PRN (Reason: pain) Qty: 30 0RF ibuprofen 600 mg tablet 600 mg PO Q6H PRN (Reason: pain) Qty: 30 0RF ibuprofen 600 mg tablet 600 mg PO Q8H PRN (Reason: pain) Qty: 20 0RF acetaminophen 500 mg capsule 500 mg PO Q6H PRN (Reason: pain) Qty: 30 0RF lidocaine [Lidoderm] 5 % adhesive patch,medicated 2 patch topical QDAY PRN (Reason: pain) Qty: 30 0RF Rx Instructions: leave on most painful area for up to 12 hrs cyclobenzaprine 5 mg tablet 5 mg PO TID PRN (Reason: muscle spasm) Qty: 15 0RF naproxen 500 mg tablet 500 mg PO BID PRN (Reason: pain) Qty: 14 0RF sulfamethoxazole-trimethoprim [Bactrim DS] 800-160 mg tablet 1 tab PO BID Qty: 14 0RF naproxen 500 mg tablet 500 mg PO BID PRN (Reason: pain) Qty: 30 0RF tamsulosin [Flomax] 0.4 mg capsule 0.4 mg PO QDAY Qty: 30 0RF ibuprofen 600 mg tablet 600 mg PO Q6H PRN (Reason: pain) Qty: 30 0RF methocarbamol 500 mg tablet 1,000 mg PO Q8H PRN (Reason: pain) Qty: 30 0RF naproxen [Naprosyn] 500 mg tablet 500 mg PO BID Qty: 14 0RF ibuprofen 600 mg tablet 600 mg PO Q6H PRN (Reason: fever or pain) Qty: 30 0RF cyclobenzaprine 5 mg tablet 5 mg PO TID PRN (Reason: muscle spasm) Qty: 14 0RF naproxen 500 mg tablet 500 mg PO BID PRN (Reason: pain) Qty: 30 0RF cyclobenzaprine 5 mg tablet 5 mg PO TID PRN (Reason: muscle spasm) Qty: 30 0RF acetaminophen 500 mg capsule 500 mg PO Q6H PRN (Reason: pain) Qty: 30 0RF Problem List Clinical Impression: Chronic leg pain Patient/Caregiver Discharge Instructions Education Materials: ED Pain Management: Chronic Additional Instructions: -Follow up with your primary doctor. -Return here as needed any emergent changes. Print Language: Wolof Stand Alone Forms: [employer] Info., Patient Portal Info Letter
[2025-06-01 18:07] VITALS: PULSE 96; RESP 18; O2SAT 99
[2025-06-01 18:11] VITALS: BMI 24.0
[2025-06-01 18:12] VITALS: BP 117/83; PULSE 91; RESP 18; TEMP 37.1; O2SAT 98
== END 2025-06-01 18:40 | disposition home or self-care (01) ==
PROVIDERS: Emergency Provider Emergency Medicine; PCP Family Medicine
DX: M79.604 Pain in right leg (principal); M79.605 Pain in left leg; G89.29 Other chronic pain
CPT/HCPCS: 99283

== ENCOUNTER 2025-06-01 19:55 | Emergency (ER) | payer MEDICAID, SELFPAY ==
[2025-06-01 19:56] VITALS: BMI 30.5
[2025-06-01 20:07] VITALS: BP 119/82; PULSE 95; RESP 18; TEMP 37; O2SAT 96
--- NOTE | 2025-06-01 20:15 | EDNOTE_ITS ---
<Statement entered by Annemarie Cortez MD - 06/01/25 21:39> As co-signing physician, I was present and available for consult prn. I concur with the plan and care as documented by the midlevel provider. ED Extremity Problem RME/HPI General Chief complaint: Extremity Problem,Nontraumatic Stated complaint: LEG PAIN Time Seen by Provider: 06/01/25 20:01 Arrival date/time: 06/01/25 19:55 RME / HPI RME / HPI Narrative: 45-year-old male presents to the ED with a complaint of chronic bilateral leg pain. This is his fourth visit since 5:30 AM this morning. He denies any new or different symptoms. He has multiple medications that have been prescribed to him at his pharmacy and continually states he missed the bus to go pick them up. Related Data Previous Rx's ?Medication ?Instructions ?Recorded sulfamethoxazole 800 1 tab PO BID #14 tabs mg-trimethoprim 160 mg tablet (Bactrim DS) cyclobenzaprine 5 mg tablet 5 mg PO TID PRN muscle spa sm #30 07/23/23 tabs naproxen 500 mg tablet 500 mg PO BID PRN pain #30 t abs 07/23/23 naproxen 500 mg tablet 500 mg PO BID PRN pain #30 t abs 08/08/23 tamsulosin 0.4 mg capsule (Flomax) 0.4 mg PO QDAY #30 caps 08/08/23 baclofen 10 mg tablet 10 mg PO BID PRN muscle spas m #30 08/14/23 tabs naproxen 500 mg tablet 500 mg PO BID PRN pain #30 t abs 08/14/23 ibuprofen 800 mg tablet 800 mg PO TID PRN pain #30 t abs 08/28/23 ibuprofen 600 mg tablet 600 mg PO Q6H PRN pain #30 t abs 01/27/24 methocarbamol 500 mg tablet 1,000 mg (2 x 500 mg) PO Q 8H PRN 01/27/24 pain #30 tabs naproxen 500 mg tablet (Naprosyn) 500 mg PO BID #14 ta bs 03/15/24 ibuprofen 800 mg tablet 800 mg PO TID PRN pain #30 t abs 04/02/24 cyclobenzaprine 5 mg tablet 5 mg PO TID PRN muscle spa sm #14 04/07/24 tabs ibuprofen 600 mg tablet 600 mg PO Q6H PRN fever or p ain 04/07/24 #30 tabs ibuprofen 600 mg tablet 600 mg PO Q6H PRN pain #30 t abs 04/07/24 cyclobenzaprine 5 mg tablet 5 mg PO TID PRN muscle spa sm #30 04/11/24 tabs naproxen 500 mg tablet 500 mg PO BID PRN pain #30 t abs 04/11/24 ibuprofen 600 mg tablet 600 mg PO Q8H PRN pain #20 t abs 11/03/24 acetaminophen 500 mg capsule 500 mg PO Q6H PRN pain #3 0 caps 12/03/24 acetaminophen 500 mg capsule 500 mg PO Q6H PRN pain #3 0 caps 12/15/24 cyclobenzaprine 5 mg tablet 5 mg PO TID PRN muscle spa sm #15 12/20/24 tabs lidocaine 5 % topical patch 2 patch topical QDAY PRN p ain #30 12/20/24 (Lidoderm) ea naproxen 500 mg tablet 500 mg PO BID PRN pain #14 t abs 04/04/25 Allergies Allergy/AdvReac Type Severity Reaction Status Date / Time No Known Allergies Allergy Verified 06/01/25 19:56 Review of Systems Review of Systems Systems Reviewed: All systems reviewed, normal except as documented Past Medical History Past Medical History NEUROLOGIC: Positive Cerebrovascular Accident; Negative Neurological Disorders CARDIAC: Positive Myocardial Infarction and Hypercholesterolemia; Negative Cardiac Disorders or Congestive Heart Failure RESPIRATORY: Negative Chronic Obstructive Pulmonary Disease (COPD) GASTROINTESTINAL: Negative Gastrointestinal Disorders GENITOURINARY: Negative Genitourinary Disorders or Renal Disease MUSCULOSKELETAL: Negative Musculoskeletal Disorders ENDOCRINE: Negative Endocrine Disorders, Diabetes Mellitus Type 1 or Diabetes Mellitus Type 2 HEMATOLOGIC: Negative Blood Disorders OTHER HISTORY: Negative Autoimmune Disease or Clostridium Difficile Social History SMOKING STATUS: Never smoker SUBSTANCE USE: methamphetamine ED Exam Narrative Physical exam: He is alert, nontoxic-appearing, no acute distress. No respiratory distress noted. He is ambulatory. No erythema or edema is noted to the bilateral lower extremities. Course Course Course Narrative: He was advised to pickers material handlers his previously prescribed medications from the pharmacy. Quality Measures none Orders N/A Vital Signs Vital signs: Vital Signs Temperature 98.6 F 06/01/25 20:07 Pulse Rate 95 06/01/25 20:07 Respiratory Rate 18 06/01/25 20:07 Blood Pressure 119/82 06/01/25 20:07 Pulse Oximetry (%) 96 06/01/25 20:07 Oxygen Delivery Method Room Air 06/01/25 20:07 Extremity Problem MDM Narrative MDM Narrative:: 45-year-old male presents to the ED with a complaint of chronic bilateral leg pain. This is his fourth visit since 5:30 AM this morning. He denies any new or different symptoms. He has multiple medications that have been prescribed to him at his pharmacy and continually states he missed the bus to go pick them up. He is alert, nontoxic-appearing, no acute distress. No respiratory distress noted. He is ambulatory. No erythema or edema is noted to the bilateral lower extremities. He was advised to pickers material handlers his previously prescribed medications from the pharmacy. Patient was discharged home in stable condition. Patient data External records reviewed:: [facility] previous records Clinical information provided by:: patient Social determinants that could affect healthcare access:: housing Patient has the following chronic illnesses:: Chronic pain, homelessness How is presenting disease/condition affected by chronic disease/condition?: exacerbated by Evaluation data The following diagnostics were reviewed and interpreted by me:: other (specify) (N/A) Lab and/or radiology exams considered but not ordered:: N/A Interpretation Summary: N/A Medications / Prescriptions Medications or Prescriptions considered but not ordered:: N/A Medication administrations:: N/A Consultations Consultation(s) initiated? (list below): No Diagnosis Extremity Problem Differential Diagnosis: cellulitis, lower extremity edema, deep vein thrombosis of lower extremity and other (Chronic pain bilateral lower extremities) Most likely diagnosis given after review of the tests above:: Chronic pain bilateral lower extremities Admission Indicated Admission indicated?: not indicated Explain why admission is indicated or not indicated:: Patient is stable for discharge. He needs to pickers material handlers his previously prescribed medications from the pharmacy which he is failed to do numerous times. Admission Request Was there a request for admission?: No Admission Attestation Admission request attestation: N/A Disposition Plan Disposition Plan: Discharge Discharge Attestation Discharge Attestation: The patient and all family members were given an opportunity to ask questions and understood the discharge instructions. Discharge instructions specifically effects, indications for sooner follow up or return to the emergency department, and the expected course of current diagnosis. Patient condition: Stable Discharge Plan Plan Patient Disposition: HOME (Self Care) Discharge Disposition comment: Stable Prescriptions/Referrals Prescriptions/Med Rec: No Action naproxen 500 mg tablet 500 mg PO BID PRN (Reason: pain) Qty: 30 0RF cyclobenzaprine 5 mg tablet 5 mg PO TID PRN (Reason: muscle spasm) Qty: 30 0RF naproxen 500 mg tablet 500 mg PO BID PRN (Reason: pain) Qty: 30 0RF baclofen 10 mg tablet 10 mg PO BID PRN (Reason: muscle spasm) Qty: 30 0RF ibuprofen 800 mg tablet 800 mg PO TID PRN (Reason: pain) Qty: 30 0RF ibuprofen 800 mg tablet 800 mg PO TID PRN (Reason: pain) Qty: 30 0RF ibuprofen 600 mg tablet 600 mg PO Q6H PRN (Reason: pain) Qty: 30 0RF ibuprofen 600 mg tablet 600 mg PO Q8H PRN (Reason: pain) Qty: 20 0RF acetaminophen 500 mg capsule 500 mg PO Q6H PRN (Reason: pain) Qty: 30 0RF lidocaine [Lidoderm] 5 % adhesive patch,medicated 2 patch topical QDAY PRN (Reason: pain) Qty: 30 0RF Rx Instructions: leave on most painful area for up to 12 hrs cyclobenzaprine 5 mg tablet 5 mg PO TID PRN (Reason: muscle spasm) Qty: 15 0RF naproxen 500 mg tablet 500 mg PO BID PRN (Reason: pain) Qty: 14 0RF sulfamethoxazole-trimethoprim [Bactrim DS] 800-160 mg tablet 1 tab PO BID Qty: 14 0RF naproxen 500 mg tablet 500 mg PO BID PRN (Reason: pain) Qty: 30 0RF tamsulosin [Flomax] 0.4 mg capsule 0.4 mg PO QDAY Qty: 30 0RF ibuprofen 600 mg tablet 600 mg PO Q6H PRN (Reason: pain) Qty: 30 0RF methocarbamol 500 mg tablet 1,000 mg PO Q8H PRN (Reason: pain) Qty: 30 0RF naproxen [Naprosyn] 500 mg tablet 500 mg PO BID Qty: 14 0RF ibuprofen 600 mg tablet 600 mg PO Q6H PRN (Reason: fever or pain) Qty: 30 0RF cyclobenzaprine 5 mg tablet 5 mg PO TID PRN (Reason: muscle spasm) Qty: 14 0RF naproxen 500 mg tablet 500 mg PO BID PRN (Reason: pain) Qty: 30 0RF cyclobenzaprine 5 mg tablet 5 mg PO TID PRN (Reason: muscle spasm) Qty: 30 0RF acetaminophen 500 mg capsule 500 mg PO Q6H PRN (Reason: pain) Qty: 30 0RF Problem List Clinical Impression: Chronic leg pain, Homeless Patient/Caregiver Discharge Instructions Education Materials: ED Chronic Pain Additional Instructions: Prescriptions from the pharmacy as previously prescribed. Print Language: Croatian Stand Alone Forms: [employer] Award Info., Patient Portal Info Letter PA/LANDSCAPER HELPER Supervising Physician PA/LANDSCAPER HELPER Supervising Physician: Dr. Cortez
== END 2025-06-01 20:26 | disposition home or self-care (01) ==
LOC: SERX 20:39
PROVIDERS: Emergency Provider Emergency Medicine; PCP Family Medicine
DX: M79.604 Pain in right leg (principal); M79.605 Pain in left leg; G89.29 Other chronic pain; Z59.00 Homelessness unspecified
CPT/HCPCS: 99283

== ENCOUNTER 2025-06-02 18:20 | Emergency (ER) | payer MEDICAID, SELFPAY ==
[2025-06-02 18:28] VITALS: PULSE 100; RESP 18; O2SAT 99
--- NOTE | 2025-06-02 19:37 | EDNOTE_ITS ---
Nausea/Vomit./Diarrhea-RME/HPI General Chief complaint: Extremity Problem,Nontraumatic Stated complaint: LEG PAIN Time Seen by Provider: 06/02/25 18:31 Arrival date/time: 06/02/25 18:20 Limitations: no limitations RME / HPI RME / HPI Narrative: 45-year-old male is here today of chronic leg pain. He is homeless. He has a history of mental health disease. He was seen at another facility for this earlier today. Patient is well-known to our ER and has frequent visits for this. He is self ambulating at baseline. He has no acute injuries to his legs. Related Data Previous Rx's ?Medication ?Instructions ?Recorded sulfamethoxazole 800 1 tab PO BID #14 tabs mg-trimethoprim 160 mg tablet (Bactrim DS) cyclobenzaprine 5 mg tablet 5 mg PO TID PRN muscle spa sm #30 07/23/23 tabs naproxen 500 mg tablet 500 mg PO BID PRN pain #30 t abs 07/23/23 naproxen 500 mg tablet 500 mg PO BID PRN pain #30 t abs 08/08/23 tamsulosin 0.4 mg capsule (Flomax) 0.4 mg PO QDAY #30 caps 08/08/23 baclofen 10 mg tablet 10 mg PO BID PRN muscle spas m #30 08/14/23 tabs naproxen 500 mg tablet 500 mg PO BID PRN pain #30 t abs 08/14/23 ibuprofen 800 mg tablet 800 mg PO TID PRN pain #30 t abs 08/28/23 ibuprofen 600 mg tablet 600 mg PO Q6H PRN pain #30 t abs 01/27/24 methocarbamol 500 mg tablet 1,000 mg (2 x 500 mg) PO Q 8H PRN 01/27/24 pain #30 tabs naproxen 500 mg tablet (Naprosyn) 500 mg PO BID #14 ta bs 03/15/24 ibuprofen 800 mg tablet 800 mg PO TID PRN pain #30 t abs 04/02/24 cyclobenzaprine 5 mg tablet 5 mg PO TID PRN muscle spa sm #14 04/07/24 tabs ibuprofen 600 mg tablet 600 mg PO Q6H PRN fever or p ain 04/07/24 #30 tabs ibuprofen 600 mg tablet 600 mg PO Q6H PRN pain #30 t abs 04/07/24 cyclobenzaprine 5 mg tablet 5 mg PO TID PRN muscle spa sm #30 04/11/24 tabs naproxen 500 mg tablet 500 mg PO BID PRN pain #30 t abs 04/11/24 ibuprofen 600 mg tablet 600 mg PO Q8H PRN pain #20 t abs 11/03/24 acetaminophen 500 mg capsule 500 mg PO Q6H PRN pain #3 0 caps 12/03/24 acetaminophen 500 mg capsule 500 mg PO Q6H PRN pain #3 0 caps 12/15/24 cyclobenzaprine 5 mg tablet 5 mg PO TID PRN muscle spa sm #15 12/20/24 tabs lidocaine 5 % topical patch 2 patch topical QDAY PRN p ain #30 12/20/24 (Lidoderm) ea naproxen 500 mg tablet 500 mg PO BID PRN pain #14 t abs 04/04/25 Allergies Allergy/AdvReac Type Severity Reaction Status Date / Time No Known Allergies Allergy Verified 06/01/25 19:56 Review of Systems Review of Systems Systems Reviewed: All systems reviewed, normal except as documented ED Exam General Limitations: Present no limitations General appearance: Present alert and in no apparent distress Head Head exam: Present atraumatic Eye Eye exam: Present normal appearance, PERRL and EOMI ENT ENT exam: Present normal exam, normal oropharynx and mucous membranes moist Neck Neck exam: Present normal inspection, full ROM and trachea midline Chest Chest inspection: Present normal inspection and symmetric chest wall rise Respiratory Respiratory exam: Present normal lung sounds bilaterally Cardiovascular Cardiovascular exam: Present regular rate, normal rhythm and normal heart sounds Abdominal Exam Abdominal exam: Present soft and normal bowel sounds Extremities Exam Extremities exam: Present normal inspection and full ROM Back Exam Back exam: Present normal inspection and full ROM Neurological Exam Neurological exam: Present alert and oriented X3 Psychiatric Psychiatric exam: Present other (Affect is flat) Skin Skin exam: Present warm, dry, intact and normal color Course Quality Measures none Orders Category Date Time Status Bedside Blood Glucose NOW Care 06/02/25 19:36 Active Vital Signs Vital signs: Vital Signs Temperature 98.1 F 06/02/25 19:45 Pulse Rate 96 06/02/25 19:45 Respiratory Rate 18 06/02/25 19:45 Blood Pressure 147/97 H 06/02/25 19:45 Pulse Oximetry (%) 97 06/02/25 19:45 Nausea/Vomiting/Diarrhea MDM Narrative MDM Narrative:: 45-year-old male is here today of chronic leg pain. He is homeless. He has a history of mental health disease. He was seen at another facility for this earlier today. Patient is well-known to our ER and has frequent visits for this. He is self ambulating at baseline. He has no acute injuries to his legs. Patient did states she has had 2-3 episodes of nonbloody diarrhea. He has no emesis. No urinary changes. On exam patient is nontoxic-appearing in no visible signs distress. Vital signs are stable. He is drinking water here. He has no emesis. Patient will be discharged in the ER. We discussed the need to return here for emergent changes or concerns. Patient data External records reviewed:: None Clinical information provided by:: patient and EMS Social determinants that could affect healthcare access:: none Patient has the following chronic illnesses:: Chronic leg pain How is presenting disease/condition affected by chronic disease/condition?: no chronic disease Evaluation data The following diagnostics were reviewed and interpreted by me:: other (specify) (n/a) Lab and/or radiology exams considered but not ordered:: n/a Interpretation Summary: n/a Medications / Prescriptions Medications / Prescriptions considered but not ordered:: n/a Medication administrations:: n/a Consultations Consultation(s) initiated? (list below): No Diagnosis Nausea Differential Diagnosis: gastroenteritis and dehydration Most likely diagnosis given after review of the tests above:: n/a Admission Indicated Admission indicated?: not indicated Admission Request Was there a request for admission?: No Disposition Plan Disposition Plan: Discharge Discharge Attestation Discharge Attestation: The patient and all family members were given an opportunity to ask questions and understood the discharge instructions. Discharge instructions specifically effects, indications for sooner follow up or return to the emergency department, and the expected course of current diagnosis. Patient condition: Stable Discharge Plan Plan Patient Disposition: HOME (Self Care) Patient condition on transfer: Stable Prescriptions/Referrals Prescriptions/Med Rec: No Action naproxen 500 mg tablet 500 mg PO BID PRN (Reason: pain) Qty: 30 0RF cyclobenzaprine 5 mg tablet 5 mg PO TID PRN (Reason: muscle spasm) Qty: 30 0RF naproxen 500 mg tablet 500 mg PO BID PRN (Reason: pain) Qty: 30 0RF baclofen 10 mg tablet 10 mg PO BID PRN (Reason: muscle spasm) Qty: 30 0RF ibuprofen 800 mg tablet 800 mg PO TID PRN (Reason: pain) Qty: 30 0RF ibuprofen 800 mg tablet 800 mg PO TID PRN (Reason: pain) Qty: 30 0RF ibuprofen 600 mg tablet 600 mg PO Q6H PRN (Reason: pain) Qty: 30 0RF ibuprofen 600 mg tablet 600 mg PO Q8H PRN (Reason: pain) Qty: 20 0RF acetaminophen 500 mg capsule 500 mg PO Q6H PRN (Reason: pain) Qty: 30 0RF lidocaine [Lidoderm] 5 % adhesive patch,medicated 2 patch topical QDAY PRN (Reason: pain) Qty: 30 0RF Rx Instructions: leave on most painful area for up to 12 hrs cyclobenzaprine 5 mg tablet 5 mg PO TID PRN (Reason: muscle spasm) Qty: 15 0RF naproxen 500 mg tablet 500 mg PO BID PRN (Reason: pain) Qty: 14 0RF sulfamethoxazole-trimethoprim [Bactrim DS] 800-160 mg tablet 1 tab PO BID Qty: 14 0RF naproxen 500 mg tablet 500 mg PO BID PRN (Reason: pain) Qty: 30 0RF tamsulosin [Flomax] 0.4 mg capsule 0.4 mg PO QDAY Qty: 30 0RF ibuprofen 600 mg tablet 600 mg PO Q6H PRN (Reason: pain) Qty: 30 0RF methocarbamol 500 mg tablet 1,000 mg PO Q8H PRN (Reason: pain) Qty: 30 0RF naproxen [Naprosyn] 500 mg tablet 500 mg PO BID Qty: 14 0RF ibuprofen 600 mg tablet 600 mg PO Q6H PRN (Reason: fever or pain) Qty: 30 0RF cyclobenzaprine 5 mg tablet 5 mg PO TID PRN (Reason: muscle spasm) Qty: 14 0RF naproxen 500 mg tablet 500 mg PO BID PRN (Reason: pain) Qty: 30 0RF cyclobenzaprine 5 mg tablet 5 mg PO TID PRN (Reason: muscle spasm) Qty: 30 0RF acetaminophen 500 mg capsule 500 mg PO Q6H PRN (Reason: pain) Qty: 30 0RF Referrals: Lavell (PCP),MD Cody [Primary Care Provider] - In 1 week Problem List Clinical Impression: Chronic leg pain Patient/Caregiver Discharge Instructions Education Materials: ED Chronic Pain Additional Instructions: -Your chronic leg tamayo needs to be followed by your primary doctor. -Please use the emergency room for emergent medical changes or concerns. Print Language: Emirati Stand Alone Forms: [employer] Info., Patient Portal Info Letter
[2025-06-02 19:45] VITALS: BP 147/97; PULSE 96; RESP 18; TEMP 36.7; O2SAT 97
[2025-06-02 19:59] VITALS: BP 128/77; PULSE 80; RESP 19; TEMP 36.6; O2SAT 97
== END 2025-06-02 20:00 | disposition home or self-care (01) ==
PROVIDERS: Emergency Provider Emergency Medicine; PCP Family Medicine
DX: M79.606 Pain in leg, unspecified (principal); G89.29 Other chronic pain; Z59.00 Homelessness unspecified
CPT/HCPCS: 99283

== ENCOUNTER 2025-06-03 19:00 | Emergency (ER) | payer MEDICAID, SELFPAY ==
[2025-06-03 19:00] VITALS: PULSE 83; RESP 18; O2SAT 97
[2025-06-03 19:48] VITALS: BP 145/89; PULSE 75; RESP 16; TEMP 36.7; O2SAT 98
[2025-06-03 19:49] VITALS: BMI 25.0
--- NOTE | 2025-06-03 19:50 | EDNOTE_ITS ---
ED Extremity Problem RME/HPI General Chief complaint: General Adult/Misc Complain Stated complaint: LEG PAIN Time Seen by Provider: 06/03/25 19:46 Source: patient Arrival date/time: 06/03/25 19:00 Mode of arrival: ambulatory Limitations: no limitations RME / HPI RME / HPI Narrative: 45 male who is here today of chronic leg pain with no acute changes. He is self ambulating. Patient has been seen numerous times for this in the past. He was just seen at an emergency room in [place], [place] for this was discharged. He has no other acute complaints or concerns. Related Data Previous Rx's ?Medication ?Instructions ?Recorded sulfamethoxazole 800 1 tab PO BID #14 tabs mg-trimethoprim 160 mg tablet (Bactrim DS) cyclobenzaprine 5 mg tablet 5 mg PO TID PRN muscle spa sm #30 07/23/23 tabs naproxen 500 mg tablet 500 mg PO BID PRN pain #30 t abs 07/23/23 naproxen 500 mg tablet 500 mg PO BID PRN pain #30 t abs 08/08/23 tamsulosin 0.4 mg capsule (Flomax) 0.4 mg PO QDAY #30 caps 08/08/23 baclofen 10 mg tablet 10 mg PO BID PRN muscle spas m #30 08/14/23 tabs naproxen 500 mg tablet 500 mg PO BID PRN pain #30 t abs 08/14/23 ibuprofen 800 mg tablet 800 mg PO TID PRN pain #30 t abs 08/28/23 ibuprofen 600 mg tablet 600 mg PO Q6H PRN pain #30 t abs 01/27/24 methocarbamol 500 mg tablet 1,000 mg (2 x 500 mg) PO Q 8H PRN 01/27/24 pain #30 tabs naproxen 500 mg tablet (Naprosyn) 500 mg PO BID #14 ta bs 03/15/24 ibuprofen 800 mg tablet 800 mg PO TID PRN pain #30 t abs 04/02/24 cyclobenzaprine 5 mg tablet 5 mg PO TID PRN muscle spa sm #14 04/07/24 tabs ibuprofen 600 mg tablet 600 mg PO Q6H PRN fever or p ain 04/07/24 #30 tabs ibuprofen 600 mg tablet 600 mg PO Q6H PRN pain #30 t abs 04/07/24 cyclobenzaprine 5 mg tablet 5 mg PO TID PRN muscle spa sm #30 04/11/24 tabs naproxen 500 mg tablet 500 mg PO BID PRN pain #30 t abs 04/11/24 ibuprofen 600 mg tablet 600 mg PO Q8H PRN pain #20 t abs 11/03/24 acetaminophen 500 mg capsule 500 mg PO Q6H PRN pain #3 0 caps 12/03/24 acetaminophen 500 mg capsule 500 mg PO Q6H PRN pain #3 0 caps 12/15/24 cyclobenzaprine 5 mg tablet 5 mg PO TID PRN muscle spa sm #15 12/20/24 tabs lidocaine 5 % topical patch 2 patch topical QDAY PRN p ain #30 12/20/24 (Lidoderm) ea naproxen 500 mg tablet 500 mg PO BID PRN pain #14 t abs 04/04/25 Allergies Allergy/AdvReac Type Severity Reaction Status Date / Time No Known Allergies Allergy Verified 06/03/25 19:21 Review of Systems Review of Systems Systems Reviewed: All systems reviewed, normal except as documented ED Exam General Limitations: Present no limitations General appearance: Present alert and in no apparent distress Head Head exam: Present atraumatic Eye Eye exam: Present normal appearance, PERRL and EOMI ENT ENT exam: Present normal exam, normal oropharynx and mucous membranes moist Neck Neck exam: Present normal inspection, full ROM and trachea midline Chest Chest inspection: Present normal inspection and symmetric chest wall rise Respiratory Respiratory exam: Present normal lung sounds bilaterally Cardiovascular Cardiovascular exam: Present regular rate, normal rhythm and normal heart sounds Abdominal Exam Abdominal exam: Present soft and normal bowel sounds Extremities Exam Extremities exam: Present normal inspection and full ROM Back Exam Back exam: Present normal inspection and full ROM Neurological Exam Neurological exam: Present alert and oriented X3 Psychiatric Psychiatric exam: Present other (Affect is flat) Skin Skin exam: Present warm, dry, intact and normal color Course Quality Measures none Vital Signs Vital signs: Vital Signs Temperature 98.1 F 06/03/25 19:48 Pulse Rate 75 06/03/25 19:48 Respiratory Rate 16 06/03/25 19:48 Blood Pressure 145/89 H 06/03/25 19:48 Pulse Oximetry (%) 98 06/03/25 19:48 Oxygen Delivery Method Room Air 06/03/25 19:48 Extremity Problem MDM Narrative MDM Narrative:: 45 male who is here today of chronic leg pain with no acute changes. He is self ambulating. Patient has been seen numerous times for this in the past. He was just seen at an emergency room in [place], [place] for this was discharged. He has no other acute complaints or concerns. On exam, patient is nontoxic-appearing and in no visible signs of distress. His vital signs are stable. He is self ambulating without assistance. He has a shuffled gait that is his baseline. Patient will be discharged from the ER. He is asked to return here for any emergent concerns as needed. Patient data External records reviewed:: [facility] previous records Clinical information provided by:: patient Social determinants that could affect healthcare access:: mental health Patient has the following chronic illnesses:: Mental health disease, chronic pain How is presenting disease/condition affected by chronic disease/condition?: exacerbated by Evaluation data The following diagnostics were reviewed and interpreted by me:: other (specify) (n/a) Lab and/or radiology exams considered but not ordered:: n/a Interpretation Summary: n/a Medications / Prescriptions Medications or Prescriptions considered but not ordered:: n/a Medication administrations:: n/a Consultations Consultation(s) initiated? (list below): No Diagnosis Extremity Problem Differential Diagnosis: cellulitis and lower extremity edema Most likely diagnosis given after review of the tests above:: Chronic leg pain Admission Indicated Admission indicated?: not indicated Admission Request Was there a request for admission?: No Disposition Plan Disposition Plan: Discharge Discharge Attestation Discharge Attestation: The patient and all family members were given an opportunity to ask questions and understood the discharge instructions. Discharge instructions specifically effects, indications for sooner follow up or return to the emergency department, and the expected course of current diagnosis. Patient condition: Stable Discharge Plan Plan Patient Disposition: HOME (Self Care) Patient condition on transfer: Stable Prescriptions/Referrals Prescriptions/Med Rec: No Action naproxen 500 mg tablet 500 mg PO BID PRN (Reason: pain) Qty: 30 0RF cyclobenzaprine 5 mg tablet 5 mg PO TID PRN (Reason: muscle spasm) Qty: 30 0RF naproxen 500 mg tablet 500 mg PO BID PRN (Reason: pain) Qty: 30 0RF baclofen 10 mg tablet 10 mg PO BID PRN (Reason: muscle spasm) Qty: 30 0RF ibuprofen 800 mg tablet 800 mg PO TID PRN (Reason: pain) Qty: 30 0RF ibuprofen 800 mg tablet 800 mg PO TID PRN (Reason: pain) Qty: 30 0RF ibuprofen 600 mg tablet 600 mg PO Q6H PRN (Reason: pain) Qty: 30 0RF ibuprofen 600 mg tablet 600 mg PO Q8H PRN (Reason: pain) Qty: 20 0RF acetaminophen 500 mg capsule 500 mg PO Q6H PRN (Reason: pain) Qty: 30 0RF lidocaine [Lidoderm] 5 % adhesive patch,medicated 2 patch topical QDAY PRN (Reason: pain) Qty: 30 0RF Rx Instructions: leave on most painful area for up to 12 hrs cyclobenzaprine 5 mg tablet 5 mg PO TID PRN (Reason: muscle spasm) Qty: 15 0RF naproxen 500 mg tablet 500 mg PO BID PRN (Reason: pain) Qty: 14 0RF sulfamethoxazole-trimethoprim [Bactrim DS] 800-160 mg tablet 1 tab PO BID Qty: 14 0RF naproxen 500 mg tablet 500 mg PO BID PRN (Reason: pain) Qty: 30 0RF tamsulosin [Flomax] 0.4 mg capsule 0.4 mg PO QDAY Qty: 30 0RF ibuprofen 600 mg tablet 600 mg PO Q6H PRN (Reason: pain) Qty: 30 0RF methocarbamol 500 mg tablet 1,000 mg PO Q8H PRN (Reason: pain) Qty: 30 0RF naproxen [Naprosyn] 500 mg tablet 500 mg PO BID Qty: 14 0RF ibuprofen 600 mg tablet 600 mg PO Q6H PRN (Reason: fever or pain) Qty: 30 0RF cyclobenzaprine 5 mg tablet 5 mg PO TID PRN (Reason: muscle spasm) Qty: 14 0RF naproxen 500 mg tablet 500 mg PO BID PRN (Reason: pain) Qty: 30 0RF cyclobenzaprine 5 mg tablet 5 mg PO TID PRN (Reason: muscle spasm) Qty: 30 0RF acetaminophen 500 mg capsule 500 mg PO Q6H PRN (Reason: pain) Qty: 30 0RF Problem List Clinical Impression: Chronic leg pain Patient/Caregiver Discharge Instructions Education Materials: ED Chronic Pain Additional Instructions: - Follow-up with your primary doctor. - Return here as needed for any worsening or emergent changes. Print Language: Welsh Stand Alone Forms: [employer] Info., Patient Portal Info Letter
== END 2025-06-03 19:56 | disposition home or self-care (01) ==
PROVIDERS: Emergency Provider Emergency Medicine; PCP Family Medicine
DX: M79.606 Pain in leg, unspecified (principal); G89.29 Other chronic pain
CPT/HCPCS: 99283

== ENCOUNTER 2025-06-03 20:35 | Emergency (ER) | payer MEDICAID, SELFPAY ==
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
--- NOTE | 2025-06-03 20:40 | PC.NURSE ---
WE UNABLE TO DO V/S FOR PT.
== END 2025-06-03 20:50 | disposition left against medical advice (07) ==
PROVIDERS: Emergency Provider Emergency Medicine
DX: Z53.21 Procedure and treatment not carried out due to patient leaving prior to being seen by health care provider (principal)
CPT/HCPCS: 99283

== ENCOUNTER 2025-06-04 15:34 | Emergency (ER) | payer MEDICAID, SELFPAY ==
[2025-06-04 16:15] VITALS: BP 133/83; PULSE 90; RESP 20; TEMP 37.2; O2SAT 97; BMI 27.3
--- NOTE | 2025-06-04 17:45 | EDNOTE_ITS ---
ED Extremity Problem RME/HPI General Chief complaint: Extremity Problem,Nontraumatic Stated complaint: BIBA Bilat leg pain Time Seen by Provider: 06/04/25 15:46 Arrival date/time: 06/04/25 15:34 45-year-old male presents to the emergency department today for complaints of bilateral leg pain patient is well-known to me patient is homeless admits to methamphetamine abuse and comes on a daily basis. Patient primarily here for food and water Limitations: no limitations Related Data Previous Rx's ?Medication ?Instructions ?Recorded sulfamethoxazole 800 1 tab PO BID #14 tabs mg-trimethoprim 160 mg tablet (Bactrim DS) cyclobenzaprine 5 mg tablet 5 mg PO TID PRN muscle spa sm #30 07/23/23 tabs naproxen 500 mg tablet 500 mg PO BID PRN pain #30 t abs 07/23/23 naproxen 500 mg tablet 500 mg PO BID PRN pain #30 t abs 08/08/23 tamsulosin 0.4 mg capsule (Flomax) 0.4 mg PO QDAY #30 caps 08/08/23 baclofen 10 mg tablet 10 mg PO BID PRN muscle spas m #30 08/14/23 tabs naproxen 500 mg tablet 500 mg PO BID PRN pain #30 t abs 08/14/23 ibuprofen 800 mg tablet 800 mg PO TID PRN pain #30 t abs 08/28/23 ibuprofen 600 mg tablet 600 mg PO Q6H PRN pain #30 t abs 01/27/24 methocarbamol 500 mg tablet 1,000 mg (2 x 500 mg) PO Q 8H PRN 01/27/24 pain #30 tabs naproxen 500 mg tablet (Naprosyn) 500 mg PO BID #14 ta bs 03/15/24 ibuprofen 800 mg tablet 800 mg PO TID PRN pain #30 t abs 04/02/24 cyclobenzaprine 5 mg tablet 5 mg PO TID PRN muscle spa sm #14 04/07/24 tabs ibuprofen 600 mg tablet 600 mg PO Q6H PRN fever or p ain 04/07/24 #30 tabs ibuprofen 600 mg tablet 600 mg PO Q6H PRN pain #30 t abs 04/07/24 cyclobenzaprine 5 mg tablet 5 mg PO TID PRN muscle spa sm #30 04/11/24 tabs naproxen 500 mg tablet 500 mg PO BID PRN pain #30 t abs 04/11/24 ibuprofen 600 mg tablet 600 mg PO Q8H PRN pain #20 t abs 11/03/24 acetaminophen 500 mg capsule 500 mg PO Q6H PRN pain #3 0 caps 12/03/24 acetaminophen 500 mg capsule 500 mg PO Q6H PRN pain #3 0 caps 12/15/24 cyclobenzaprine 5 mg tablet 5 mg PO TID PRN muscle spa sm #15 12/20/24 tabs lidocaine 5 % topical patch 2 patch topical QDAY PRN p ain #30 12/20/24 (Lidoderm) ea naproxen 500 mg tablet 500 mg PO BID PRN pain #14 t abs 04/04/25 Allergies Allergy/AdvReac Type Severity Reaction Status Date / Time No Known Allergies Allergy Verified 06/04/25 15:35 Review of Systems Review of Systems Systems Reviewed: All systems reviewed, normal except as documented Constitutional Constitutional: Reports system reviewed and no additional complaints, except as documented, Denies fever(s) and Denies headache(s) Eyes Eyes: Reports system reviewed and no additional complaints, except as documented and Denies blurry vision ENT Ears, Nose, Mouth, and Throat: Reports system reviewed and no additional complaints, except as documented, Denies headache(s), Denies nasal congestion and Denies nasal discharge Cardiovascular Cardiovascular: Reports system reviewed and no additional complaints, except as documented, Denies chest pain and Denies dyspnea Respiratory Respiratory: Reports system reviewed and no additional complaints, except as documented, Denies chest congestion, Denies cough and Denies dyspnea Gastrointestinal Gastrointestinal: Reports system reviewed and no additional complaints, except as documented and Denies abdominal pain Musculoskeletal Musculoskeletal: Reports system reviewed and no additional complaints, except as documented and Reports back pain Integumentary/Breasts Skin/Breast: Reports system reviewed and no additional complaints, except as documented and Denies rash Neurologic Neurologic: Reports system reviewed and no additional complaints, except as documented, Reports as per HPI and Denies headache(s) Past Medical History Past Medical History NEUROLOGIC: Positive Cerebrovascular Accident; Negative Neurological Disorders CARDIAC: Positive Myocardial Infarction and Hypercholesterolemia; Negative Cardiac Disorders or Congestive Heart Failure RESPIRATORY: Negative Chronic Obstructive Pulmonary Disease (COPD) GASTROINTESTINAL: Negative Gastrointestinal Disorders GENITOURINARY: Negative Genitourinary Disorders or Renal Disease MUSCULOSKELETAL: Negative Musculoskeletal Disorders ENDOCRINE: Negative Endocrine Disorders, Diabetes Mellitus Type 1 or Diabetes Mellitus Type 2 HEMATOLOGIC: Negative Blood Disorders OTHER HISTORY: Negative Autoimmune Disease or Clostridium Difficile Social History SMOKING STATUS: Current some day smoker SUBSTANCE USE: methamphetamine ED Exam General Limitations: Present no limitations General appearance: Present alert and in no apparent distress Head Head exam: Present atraumatic, normocephalic and normal inspection Eye Eye exam: Present normal appearance, PERRL and EOMI; Absent conjunctival injection ENT ENT exam: Present normal exam, normal oropharynx and mucous membranes moist Neck Neck exam: Present normal inspection, full ROM and trachea midline Chest Chest inspection: Present normal inspection and symmetric chest wall rise Respiratory Respiratory exam: Present normal lung sounds bilaterally; Absent respiratory distress Cardiovascular Cardiovascular exam: Present regular rate, normal rhythm and normal heart sounds Abdominal Exam Abdominal exam: Present soft and normal bowel sounds; Absent distention, tenderness, guarding, rebound or rigidity Extremities Exam Extremities exam: Present normal inspection and full ROM Back Exam Back exam: Present normal inspection and full ROM Neurological Exam Neurological exam: Present alert, oriented X3 and CN II-XII intact Psychiatric Psychiatric exam: Present normal affect and normal mood Skin Skin exam: Present warm, dry, intact and normal color Course Quality Measures none Vital Signs Vital signs: Vital Signs Temperature 98.9 F 06/04/25 16:15 Pulse Rate 90 06/04/25 16:15 Respiratory Rate 20 06/04/25 16:15 Blood Pressure 133/83 H 06/04/25 16:15 Pulse Oximetry (%) 97 06/04/25 16:15 Oxygen Delivery Method Room Air 06/04/25 16:15 O2 saturation 97% on room air with normal limits Extremity Problem MDM Narrative MDM Narrative:: 45-year-old male presents to the emergency department today for complaints of bilateral leg pain patient is well-known to me patient is homeless admits to methamphetamine abuse and comes on a daily basis. Patient primarily here for food and water On exam patient well-appearing patient does not appear ill or toxic no acute distress Patient given food and water Patient discharged home in no distress to follow-up with primary care doctor in the next 24 to 48 hours and for any worsening symptoms to return to the ER immediately Patient data External records reviewed:: [facility] previous records Clinical information provided by:: patient Social determinants that could affect healthcare access:: housing Patient has the following chronic illnesses:: Homeless, drug abuse, stroke How is presenting disease/condition affected by chronic disease/condition?: exacerbated by Evaluation data The following diagnostics were reviewed and interpreted by me:: other (specify) (N/A) Lab and/or radiology exams considered but not ordered:: Consider not ordered Interpretation Summary: N/A Medications / Prescriptions Medications or Prescriptions considered but not ordered:: No meds Medication administrations:: No meds Consultations Consultation(s) initiated? (list below): No Diagnosis Extremity Problem Differential Diagnosis: other (Back pain . low back strain) Most likely diagnosis given after review of the tests above:: Back pain Admission Indicated Admission indicated?: not indicated Admission Request Was there a request for admission?: No Disposition Plan Disposition Plan: Discharge Discharge Attestation Discharge Attestation: The patient and all family members were given an opportunity to ask questions and understood the discharge instructions. Discharge instructions specifically effects, indications for sooner follow up or return to the emergency department, and the expected course of current diagnosis. Patient condition: Stable Discharge Plan Plan Patient Disposition: HOME (Self Care) Discharge Disposition comment: Stable Prescriptions/Referrals Prescriptions/Med Rec: No Action naproxen 500 mg tablet 500 mg PO BID PRN (Reason: pain) Qty: 30 0RF cyclobenzaprine 5 mg tablet 5 mg PO TID PRN (Reason: muscle spasm) Qty: 30 0RF naproxen 500 mg tablet 500 mg PO BID PRN (Reason: pain) Qty: 30 0RF baclofen 10 mg tablet 10 mg PO BID PRN (Reason: muscle spasm) Qty: 30 0RF ibuprofen 800 mg tablet 800 mg PO TID PRN (Reason: pain) Qty: 30 0RF ibuprofen 800 mg tablet 800 mg PO TID PRN (Reason: pain) Qty: 30 0RF ibuprofen 600 mg tablet 600 mg PO Q6H PRN (Reason: pain) Qty: 30 0RF ibuprofen 600 mg tablet 600 mg PO Q8H PRN (Reason: pain) Qty: 20 0RF acetaminophen 500 mg capsule 500 mg PO Q6H PRN (Reason: pain) Qty: 30 0RF lidocaine [Lidoderm] 5 % adhesive patch,medicated 2 patch topical QDAY PRN (Reason: pain) Qty: 30 0RF Rx Instructions: leave on most painful area for up to 12 hrs cyclobenzaprine 5 mg tablet 5 mg PO TID PRN (Reason: muscle spasm) Qty: 15 0RF naproxen 500 mg tablet 500 mg PO BID PRN (Reason: pain) Qty: 14 0RF sulfamethoxazole-trimethoprim [Bactrim DS] 800-160 mg tablet 1 tab PO BID Qty: 14 0RF naproxen 500 mg tablet 500 mg PO BID PRN (Reason: pain) Qty: 30 0RF tamsulosin [Flomax] 0.4 mg capsule 0.4 mg PO QDAY Qty: 30 0RF ibuprofen 600 mg tablet 600 mg PO Q6H PRN (Reason: pain) Qty: 30 0RF methocarbamol 500 mg tablet 1,000 mg PO Q8H PRN (Reason: pain) Qty: 30 0RF naproxen [Naprosyn] 500 mg tablet 500 mg PO BID Qty: 14 0RF ibuprofen 600 mg tablet 600 mg PO Q6H PRN (Reason: fever or pain) Qty: 30 0RF cyclobenzaprine 5 mg tablet 5 mg PO TID PRN (Reason: muscle spasm) Qty: 14 0RF naproxen 500 mg tablet 500 mg PO BID PRN (Reason: pain) Qty: 30 0RF cyclobenzaprine 5 mg tablet 5 mg PO TID PRN (Reason: muscle spasm) Qty: 30 0RF acetaminophen 500 mg capsule 500 mg PO Q6H PRN (Reason: pain) Qty: 30 0RF Referrals: Lavell (PCP),MD Cody [Primary Care Provider] - In 1 week Problem List Clinical Impression: Chronic leg pain, Homeless Patient/Caregiver Discharge Instructions Education Materials: ED Myalgias Additional Instructions: Please follow up with your primary care doctor in the next 24-48hrs for any worsening symptoms return here immediately Print Language: Fijian Stand Alone Forms: Tami Award Info., Patient Portal Info Letter PA/OCCUPATIONAL THERAPY ASSIST Supervising Physician PA/DEVNY Supervising Physician: Dr. Jay
== END 2025-06-04 18:20 | disposition home or self-care (01) ==
PROVIDERS: Emergency Provider Emergency Medicine; PCP Family Medicine
DX: M79.604 Pain in right leg (principal); M79.605 Pain in left leg; G89.29 Other chronic pain; Z59.00 Homelessness unspecified
CPT/HCPCS: 99283

== ENCOUNTER 2025-06-04 19:12 | Emergency (ER) | payer MEDICAID, SELFPAY ==
[2025-06-04 19:29] VITALS: BP 150/95; PULSE 95; RESP 19; TEMP 37.4; O2SAT 97
--- NOTE | 2025-06-04 19:58 | PC.NURSE ---
SEEN PT WALKING OUT ER, SECURITY INFORMED ME THAT PT IS OUTSIDE YELLING AT PEOPLE COMING IN TO ER.
== END 2025-06-04 20:11 | disposition left against medical advice (07) ==
PROVIDERS: Emergency Provider Internal Medicine Rheumatology; PCP Family Medicine
DX: Z53.21 Procedure and treatment not carried out due to patient leaving prior to being seen by health care provider (principal)
CPT/HCPCS: 99283

== ENCOUNTER 2025-06-05 14:03 | Emergency (ER) | payer MEDICAID, SELFPAY ==
[2025-06-05 14:13] VITALS: BP 122/76; PULSE 85; RESP 18; TEMP 36.6; O2SAT 97; BMI 27.3
[2025-06-05 14:17] VITALS: BMI 27.3
--- NOTE | 2025-06-05 14:17 | PD.EDLOWEX ---
Lower Extremity Injury RME/HPI General Chief Complaint: Extremity Problem,Nontraumatic Stated Complaint: LEG PAIN Time Seen by Provider: 06/05/25 14:05 Arrival date/time: 06/05/25 14:03 RME / HPI RME / HPI Narrative: 45-year-old male patient was brought in by EMS for evaluation regarding bilateral lower leg pain which is chronic, no acute changes noted at this time. Patient is self ambulatory. Patient is known to this emergency room, coming to this emergency room twice a day. For the same complaints. He was just recently seen also in [facility] this morning. Patient is asking for food. Related Data Previous Rx's ?Medication ?Instructions ?Recorded sulfamethoxazole 800 1 tab PO BID #14 tabs 03/09/23 mg-trimethoprim 160 mg tablet (Bactrim DS) cyclobenzaprine 5 mg tablet 5 mg PO TID PRN muscle spasm #30 07/23/23 tabs naproxen 500 mg tablet 500 mg PO BID PRN pain #30 tabs 07/23/23 naproxen 500 mg tablet 500 mg PO BID PRN pain #30 tabs 08/08/23 tamsulosin 0.4 mg capsule (Flomax) 0.4 mg PO QDAY #30 caps 08/08/23 baclofen 10 mg tablet 10 mg PO BID PRN muscle spasm #30 08/14/23 tabs naproxen 500 mg tablet 500 mg PO BID PRN pain #30 tabs 08/14/23 ibuprofen 800 mg tablet 800 mg PO TID PRN pain #30 tabs 08/28/23 ibuprofen 600 mg tablet 600 mg PO Q6H PRN pain #30 tabs 01/27/24 methocarbamol 500 mg tablet 1,000 mg (2 x 500 mg) PO Q8H PRN 01/27/24 pain #30 tabs naproxen 500 mg tablet (Naprosyn) 500 mg PO BID #14 tabs 03/15/24 ibuprofen 800 mg tablet 800 mg PO TID PRN pain #30 tabs 04/02/24 cyclobenzaprine 5 mg tablet 5 mg PO TID PRN muscle spasm #14 04/07/24 tabs ibuprofen 600 mg tablet 600 mg PO Q6H PRN fever or pain 04/07/24 #30 tabs ibuprofen 600 mg tablet 600 mg PO Q6H PRN pain #30 tabs 04/07/24 cyclobenzaprine 5 mg tablet 5 mg PO TID PRN muscle spasm #30 04/11/24 tabs naproxen 500 mg tablet 500 mg PO BID PRN pain #30 tabs 04/11/24 ibuprofen 600 mg tablet 600 mg PO Q8H PRN pain #20 tabs 11/03/24 acetaminophen 500 mg capsule 500 mg PO Q6H PRN pain #30 caps 12/03/24 acetaminophen 500 mg capsule 500 mg PO Q6H PRN pain #30 caps 12/15/24 cyclobenzaprine 5 mg tablet 5 mg PO TID PRN muscle spasm #15 12/20/24 tabs lidocaine 5 % topical patch 2 patch topical QDAY PRN pain #30 12/20/24 (Lidoderm) ea naproxen 500 mg tablet 500 mg PO BID PRN pain #14 tabs 04/04/25 Allergies Allergy/AdvReac Type Severity Reaction Status Date / Time No Known Allergies Allergy Verified 06/05/25 14:21 Review of Systems Review of Systems Narrative Review of Systems: Review of system reviewed and within normal limits except mentioned in HPI ED Exam Narrative Physical exam: VITAL SIGNS: Reviewed. GENERAL APPEARANCE: Alert and interactive, follows commands, no acute distress, unkept HEAD AND FACE: Non-traumatic. ENT: PERRL, pink conjunctivitis, eyelid no trauma, Mucous membrane moist. NECK: Supple, nontender, no nuchal rigidity. CHEST: No tenderness, no crepitus, no paradoxical movement, no retractions. LUNGS: Clear, well ventilated, symmetric, no rales, no wheezing, no ronchi, no stridor, good breath sounds bilaterally. HEART: Regular rate, regular rhythm, no murmur, no gallops. ABDOMEN: Soft, positive bowel sounds, nondistended, no guarding, nontender, no rebound, no masses, RECTAL: Deferred. GENITAL: Deferred. NEUROLOGICAL: Gross motor function intact sensory function intact, Appropriate for age. MUSCULOSKELETAL: low back nontender, full range of motion. EXTREMITIES: Bilateral lower extremity tenderness, no swelling no redness no deformity no skin breakdown distal neurovascular status intact, full range of motion. SKIN: Color pink, dry, no rash, no lacerations, no abrasions, no contusions. LYMPHATICS: Deferred. Course Quality Measures none Vital Signs Vital signs: Vital Signs Temperature 98 F 06/05/25 14:13 Pulse Rate 85 06/05/25 14:13 Respiratory Rate 18 06/05/25 14:13 Blood Pressure 122/76 06/05/25 14:13 Pulse Oximetry (%) 97 06/05/25 14:13 Oxygen Delivery Method Room Air 06/05/25 14:13 Extremity Injury, Lower MDM Narrative MDM Narrative:: 45-year-old male patient was brought in by EMS for evaluation regarding bilateral lower leg pain which is chronic, no acute changes noted at this time. Patient is self ambulatory. Patient is known to this emergency room, coming to this emergency room twice a day. For the same complaints. He was just recently seen also in [facility] this morning. Patient is asking for food. Imaging workup as noted at this time. Patient is having chronic leg pain, patient is malingering, coming to the emergency room asking for food Stable to discharge back to the streets Patient data External records reviewed:: None Clinical information provided by:: patient Social determinants that could affect healthcare access:: mental health Patient has the following chronic illnesses:: Homelessness, How is presenting disease/condition affected by chronic disease/condition?: exacerbated by Evaluation data The following diagnostics were reviewed and interpreted by me:: other (specify) (None) Lab and/or radiology exams considered but not ordered:: None Interpretation Summary: None Medications / Prescriptions Medications or Prescriptions considered but not ordered:: none Medication administrations:: none Consultations Consultation(s) initiated? (list below): No Diagnosis Extremity Injury, Lower Differential Diagnosis: other (Chronic leg pain, homelessness, malingering) Most likely diagnosis given after review of the tests above:: Chronic leg pain Admission Indicated Admission indicated?: not indicated Admission Request Was there a request for admission?: No Disposition Plan Disposition Plan: Discharge Discharge Attestation Discharge Attestation: Patient condition: Stable Discharge Plan Plan Patient Disposition: HOME (Self Care) Discharge Disposition comment: Stable Prescriptions/Referrals Prescriptions/Med Rec: No Action naproxen 500 mg tablet 500 mg PO BID PRN (Reason: pain) Qty: 30 0RF cyclobenzaprine 5 mg tablet 5 mg PO TID PRN (Reason: muscle spasm) Qty: 30 0RF naproxen 500 mg tablet 500 mg PO BID PRN (Reason: pain) Qty: 30 0RF baclofen 10 mg tablet 10 mg PO BID PRN (Reason: muscle spasm) Qty: 30 0RF ibuprofen 800 mg tablet 800 mg PO TID PRN (Reason: pain) Qty: 30 0RF ibuprofen 800 mg tablet 800 mg PO TID PRN (Reason: pain) Qty: 30 0RF ibuprofen 600 mg tablet 600 mg PO Q6H PRN (Reason: pain) Qty: 30 0RF ibuprofen 600 mg tablet 600 mg PO Q8H PRN (Reason: pain) Qty: 20 0RF acetaminophen 500 mg capsule 500 mg PO Q6H PRN (Reason: pain) Qty: 30 0RF lidocaine [Lidoderm] 5 % adhesive patch,medicated 2 patch topical QDAY PRN (Reason: pain) Qty: 30 0RF Rx Instructions: leave on most painful area for up to 12 hrs cyclobenzaprine 5 mg tablet 5 mg PO TID PRN (Reason: muscle spasm) Qty: 15 0RF naproxen 500 mg tablet 500 mg PO BID PRN (Reason: pain) Qty: 14 0RF sulfamethoxazole-trimethoprim [Bactrim DS] 800-160 mg tablet 1 tab PO BID Qty: 14 0RF naproxen 500 mg tablet 500 mg PO BID PRN (Reason: pain) Qty: 30 0RF tamsulosin [Flomax] 0.4 mg capsule 0.4 mg PO QDAY Qty: 30 0RF ibuprofen 600 mg tablet 600 mg PO Q6H PRN (Reason: pain) Qty: 30 0RF methocarbamol 500 mg tablet 1,000 mg PO Q8H PRN (Reason: pain) Qty: 30 0RF naproxen [Naprosyn] 500 mg tablet 500 mg PO BID Qty: 14 0RF ibuprofen 600 mg tablet 600 mg PO Q6H PRN (Reason: fever or pain) Qty: 30 0RF cyclobenzaprine 5 mg tablet 5 mg PO TID PRN (Reason: muscle spasm) Qty: 14 0RF naproxen 500 mg tablet 500 mg PO BID PRN (Reason: pain) Qty: 30 0RF cyclobenzaprine 5 mg tablet 5 mg PO TID PRN (Reason: muscle spasm) Qty: 30 0RF acetaminophen 500 mg capsule 500 mg PO Q6H PRN (Reason: pain) Qty: 30 0RF Referrals: Lavell (PCP)Cody MD [Primary Care Provider] - In 1 week Problem List Clinical Impression: Chronic leg pain Patient/Caregiver Discharge Instructions Discharge Activity: activity as tolerated Education Materials: ED Chronic Pain Additional Instructions: Thank you for the opportunity for serving you today. You are stable for discharged . 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
== END 2025-06-05 16:46 | disposition home or self-care (01) ==
PROVIDERS: Emergency Provider Family Medicine; PCP Family Medicine
DX: M79.661 Pain in right lower leg (principal); M79.662 Pain in left lower leg; G89.29 Other chronic pain; Z59.00 Homelessness unspecified
CPT/HCPCS: 99283

== ENCOUNTER 2025-06-06 08:56 | Emergency (ER) | payer MEDICAID, SELFPAY ==
--- NOTE | 2025-06-06 09:50 | PC.NURSE ---
Pt. went and laid down to sleep in chair in lobby.
--- NOTE | 2025-06-06 09:51 | PC.NURSE ---
Pt. laying down sleeping in lobby.
[2025-06-06 10:10] VITALS: BP 125/95; PULSE 67; RESP 18; TEMP 36.6; O2SAT 99; BMI 14.2
--- NOTE | 2025-06-06 10:14 | PD.EDLOWEX ---
Lower Extremity Injury RME/HPI General Chief Complaint: Extremity Injury, Lower Stated Complaint: LEG PAIN Time Seen by Provider: 06/06/25 08:59 Source: patient Arrival date/time: 06/06/25 08:56 45-year-old male with no known medical history presents to the emergency room with a chief complaint of chronic lower extremity pain x 6 months Mode of arrival: ambulatory Limitations: no limitations Related Data Previous Rx's ?Medication ?Instructions ?Recorded sulfamethoxazole 800 1 tab PO BID #14 tabs 03/09/23 mg-trimethoprim 160 mg tablet (Bactrim DS) cyclobenzaprine 5 mg tablet 5 mg PO TID PRN muscle spasm #30 07/23/23 tabs naproxen 500 mg tablet 500 mg PO BID PRN pain #30 tabs 07/23/23 naproxen 500 mg tablet 500 mg PO BID PRN pain #30 tabs 08/08/23 tamsulosin 0.4 mg capsule (Flomax) 0.4 mg PO QDAY #30 caps 08/08/23 baclofen 10 mg tablet 10 mg PO BID PRN muscle spasm #30 08/14/23 tabs naproxen 500 mg tablet 500 mg PO BID PRN pain #30 tabs 08/14/23 ibuprofen 800 mg tablet 800 mg PO TID PRN pain #30 tabs 08/28/23 ibuprofen 600 mg tablet 600 mg PO Q6H PRN pain #30 tabs 01/27/24 methocarbamol 500 mg tablet 1,000 mg (2 x 500 mg) PO Q8H PRN 01/27/24 pain #30 tabs naproxen 500 mg tablet (Naprosyn) 500 mg PO BID #14 tabs 03/15/24 ibuprofen 800 mg tablet 800 mg PO TID PRN pain #30 tabs 04/02/24 cyclobenzaprine 5 mg tablet 5 mg PO TID PRN muscle spasm #14 04/07/24 tabs ibuprofen 600 mg tablet 600 mg PO Q6H PRN fever or pain 04/07/24 #30 tabs ibuprofen 600 mg tablet 600 mg PO Q6H PRN pain #30 tabs 04/07/24 cyclobenzaprine 5 mg tablet 5 mg PO TID PRN muscle spasm #30 04/11/24 tabs naproxen 500 mg tablet 500 mg PO BID PRN pain #30 tabs 04/11/24 ibuprofen 600 mg tablet 600 mg PO Q8H PRN pain #20 tabs 11/03/24 acetaminophen 500 mg capsule 500 mg PO Q6H PRN pain #30 caps 12/03/24 acetaminophen 500 mg capsule 500 mg PO Q6H PRN pain #30 caps 12/15/24 cyclobenzaprine 5 mg tablet 5 mg PO TID PRN muscle spasm #15 12/20/24 tabs lidocaine 5 % topical patch 2 patch topical QDAY PRN pain #30 12/20/24 (Lidoderm) ea naproxen 500 mg tablet 500 mg PO BID PRN pain #14 tabs 04/04/25 Allergies Allergy/AdvReac Type Severity Reaction Status Date / Time No Known Allergies Allergy Verified 06/06/25 09:55 Review of Systems Review of Systems Systems Reviewed: All systems reviewed, normal except as documented Constitutional Constitutional: Reports system reviewed and no additional complaints, except as documented, Denies fatigue, Denies fever(s), Denies headache(s) and Denies weakness Eyes Eyes: Reports system reviewed and no additional complaints, except as documented, Denies blurry vision and Denies change in vision ENT Ears, Nose, Mouth, and Throat: Reports system reviewed and no additional complaints, except as documented, Denies otalgia, Denies headache(s), Denies nasal congestion, Denies throat swelling and Denies vertigo Cardiovascular Cardiovascular: Reports system reviewed and no additional complaints, except as documented, Denies chest pain, Denies dyspnea and Denies dyspnea on exertion Respiratory Respiratory: Reports system reviewed and no additional complaints, except as documented, Denies chest congestion, Denies cough, Denies dyspnea, Denies dyspnea on exertion and Denies wheezing Gastrointestinal Gastrointestinal: Reports system reviewed and no additional complaints, except as documented, Denies abdominal pain, Denies cramping, Denies nausea and Denies vomiting Genitourinary Genitourinary: Reports system reviewed and no additional complaints, except as documented, Denies dysuria and Denies hematuria Musculoskeletal Musculoskeletal: Reports system reviewed and no additional complaints, except as documented and Denies back pain Integumentary/Breasts Skin/Breast: Reports system reviewed and no additional complaints, except as documented and Denies wounds Neurologic Neurologic: Reports system reviewed and no additional complaints, except as documented, Denies confusion, Denies headache(s), Denies lack of coordination, Denies vertigo and Denies weakness Psychiatric Psychiatric: Reports system reviewed and no additional complaints, except as documented, Denies anxiety, Denies confusion, Denies depression, Denies paranoia, Denies suicidal ideation and Denies tactile hallucinations Endocrine Endocrine: Reports system reviewed and no additional complaints, except as documented and Denies fatigue Hematologic/Lymphatic Hematologic/Lymphatic: Reports system reviewed and no additional complaints, except as documented and Denies lymphadenopathy Allergic/Immunologic Allergic/Immunologic: Reports system reviewed and no additional complaints, except as documented, Denies throat swelling, Denies urticaria and Denies wheezing Past Medical History Past Medical History NEUROLOGIC: Positive Cerebrovascular Accident; Negative Neurological Disorders CARDIAC: Positive Myocardial Infarction and Hypercholesterolemia; Negative Cardiac Disorders or Congestive Heart Failure RESPIRATORY: Negative Chronic Obstructive Pulmonary Disease (COPD) GASTROINTESTINAL: Negative Gastrointestinal Disorders GENITOURINARY: Negative Genitourinary Disorders or Renal Disease MUSCULOSKELETAL: Negative Musculoskeletal Disorders ENDOCRINE: Negative Endocrine Disorders, Diabetes Mellitus Type 1 or Diabetes Mellitus Type 2 HEMATOLOGIC: Negative Blood Disorders OTHER HISTORY: Negative Autoimmune Disease or Clostridium Difficile Social History SMOKING STATUS: Current every day smoker SUBSTANCE USE: methamphetamine ED Exam General Limitations: Present no limitations General appearance: Present alert and in no apparent distress Head Head exam: Present atraumatic Eye Eye exam: Present normal appearance, PERRL and EOMI ENT ENT exam: Present normal exam, normal oropharynx and mucous membranes moist Neck Neck exam: Present normal inspection, full ROM and trachea midline Chest Chest inspection: Present normal inspection and symmetric chest wall rise Respiratory Respiratory exam: Present normal lung sounds bilaterally Cardiovascular Cardiovascular exam: Present regular rate, normal rhythm and normal heart sounds Abdominal Exam Abdominal exam: Present soft and normal bowel sounds Extremities Exam Extremities exam: Present normal inspection and full ROM Back Exam Back exam: Present normal inspection and full ROM Neurological Exam Neurological exam: Present alert, oriented X3 and CN II-XII intact Psychiatric Psychiatric exam: Present normal affect and normal mood Skin Skin exam: Present warm, dry, intact and normal color Course Quality Measures none Orders Category Date Time Status Ibuprofen Tab [Motrin Tab] Med 06/06/25 10:12 Discontinued 600 mg PO X1 ONE Vital Signs Vital signs: Vital Signs Temperature 97.8 F 06/06/25 10:10 Pulse Rate 67 06/06/25 10:10 Respiratory Rate 18 06/06/25 10:10 Blood Pressure 125/95 H 06/06/25 10:10 Pulse Oximetry (%) 99 06/06/25 10:10 Oxygen Delivery Method Room Air 06/06/25 10:10 Extremity Injury, Lower MDM Narrative MDM Narrative:: 45-year-old male with no known medical history presents to the emergency room with a chief complaint of chronic lower extremity pain x 6 months Patient is hemodynamically stable and in no apparent distress Physical examination shows some bilateral lower extremity pain. This is a chronic pain and the patient is a frequent flyer that is homeless and visits us for pain medication water and food. Ibuprofen was given to the patient, a glass of water, and some food. Patient was discharged and educated to follow-up with primary care provider in the next 24 to 48 hours and return to the emergency room for any evidence of worsening signs or symptoms Patient data External records reviewed:: [facility] previous records Clinical information provided by:: patient Social determinants that could affect healthcare access:: substance use Patient has the following chronic illnesses:: Chronic leg pain How is presenting disease/condition affected by chronic disease/condition?: caused by Evaluation data The following diagnostics were reviewed and interpreted by me:: lab results and radiology exam(s) Lab and/or radiology exams considered but not ordered:: Labs and radiology exams considered and ordered Interpretation Summary: N/A Medications / Prescriptions Medications or Prescriptions considered but not ordered:: Medication given Medication administrations:: Medication Administration History Discontinued Medications Ibuprofen (Ibuprofen Tab 600 Mg Tablet) 600 mg PO X1 ONE Stop: 06/06/25 10:13 Last Admin: 06/06/25 10:19 Dose: 600 mg Documented By: OA Medication given Consultations Consultation(s) initiated? (list below): No Diagnosis Extremity Injury, Lower Differential Diagnosis: other (Chronic leg pain/acute leg pain) Most likely diagnosis given after review of the tests above:: Chronic leg pain Admission Indicated Admission indicated?: not indicated Admission Request Was there a request for admission?: No Disposition Plan Disposition Plan: Discharge Discharge Attestation Discharge Attestation: The patient and all family members were given an opportunity to ask questions and understood the discharge instructions. Discharge instructions specifically effects, indications for sooner follow up or return to the emergency department, and the expected course of current diagnosis. Patient condition: Stable Discharge Plan Plan Patient Disposition: HOME (Self Care) Discharge Disposition comment: Stable Prescriptions/Referrals Prescriptions/Med Rec: No Action naproxen 500 mg tablet 500 mg PO BID PRN (Reason: pain) Qty: 30 0RF cyclobenzaprine 5 mg tablet 5 mg PO TID PRN (Reason: muscle spasm) Qty: 30 0RF naproxen 500 mg tablet 500 mg PO BID PRN (Reason: pain) Qty: 30 0RF baclofen 10 mg tablet 10 mg PO BID PRN (Reason: muscle spasm) Qty: 30 0RF ibuprofen 800 mg tablet 800 mg PO TID PRN (Reason: pain) Qty: 30 0RF ibuprofen 800 mg tablet 800 mg PO TID PRN (Reason: pain) Qty: 30 0RF ibuprofen 600 mg tablet 600 mg PO Q6H PRN (Reason: pain) Qty: 30 0RF ibuprofen 600 mg tablet 600 mg PO Q8H PRN (Reason: pain) Qty: 20 0RF acetaminophen 500 mg capsule 500 mg PO Q6H PRN (Reason: pain) Qty: 30 0RF lidocaine [Lidoderm] 5 % adhesive patch,medicated 2 patch topical QDAY PRN (Reason: pain) Qty: 30 0RF Rx Instructions: leave on most painful area for up to 12 hrs cyclobenzaprine 5 mg tablet 5 mg PO TID PRN (Reason: muscle spasm) Qty: 15 0RF naproxen 500 mg tablet 500 mg PO BID PRN (Reason: pain) Qty: 14 0RF sulfamethoxazole-trimethoprim [Bactrim DS] 800-160 mg tablet 1 tab PO BID Qty: 14 0RF naproxen 500 mg tablet 500 mg PO BID PRN (Reason: pain) Qty: 30 0RF tamsulosin [Flomax] 0.4 mg capsule 0.4 mg PO QDAY Qty: 30 0RF ibuprofen 600 mg tablet 600 mg PO Q6H PRN (Reason: pain) Qty: 30 0RF methocarbamol 500 mg tablet 1,000 mg PO Q8H PRN (Reason: pain) Qty: 30 0RF naproxen [Naprosyn] 500 mg tablet 500 mg PO BID Qty: 14 0RF ibuprofen 600 mg tablet 600 mg PO Q6H PRN (Reason: fever or pain) Qty: 30 0RF cyclobenzaprine 5 mg tablet 5 mg PO TID PRN (Reason: muscle spasm) Qty: 14 0RF naproxen 500 mg tablet 500 mg PO BID PRN (Reason: pain) Qty: 30 0RF cyclobenzaprine 5 mg tablet 5 mg PO TID PRN (Reason: muscle spasm) Qty: 30 0RF acetaminophen 500 mg capsule 500 mg PO Q6H PRN (Reason: pain) Qty: 30 0RF Referrals: Lavell (PCP),MD Cody [Primary Care Provider] - In 1 week Problem List Clinical Impression: Chronic leg pain Patient/Caregiver Discharge Instructions Education Materials: ED Chronic Pain Additional Instructions: Please follow-up with your primary care provider in the next 24 to 48 hours For any evidence of worsening signs or symptoms return the emergency room immediately Print Language: French Stand Alone Forms: Tami Award Info., Patient Portal Info Letter PA/MILITARY COMMUNICATIONS SPECIALIST Supervising Physician PA/MILIT[employer] COMM[employer]ICATIONS SPECIALIST Supervising Physician: Dr. Ramsey
[2025-06-06] MEDS: IBUPROFEN TAB 600 MG TABLET PO (10:19)
== END 2025-06-06 10:22 | disposition home or self-care (01) ==
PROVIDERS: Emergency Provider Family Medicine; PCP Family Medicine
DX: G89.29 Other chronic pain (principal); M79.606 Pain in leg, unspecified
CPT/HCPCS: 99283; A9270

== ENCOUNTER 2025-06-09 13:36 | Emergency (ER) | payer MEDICAID, SELFPAY ==
[2025-06-09 13:37] VITALS: BP 145/95; PULSE 79; PULSE 83; RESP 17; TEMP 36.9; O2SAT 100; O2SAT 96
--- NOTE | 2025-06-09 14:01 | EDNOTE_ITS ---
Lower Extremity Injury RME/HPI General Chief Complaint: Extremity Injury, Lower Stated Complaint: LEG PAIN Time Seen by Provider: 06/09/25 13:38 Source: patient and EMS Arrival date/time: 06/09/25 13:36 Mode of arrival: EMS Limitations: no limitations RME / HPI RME / HPI Narrative: 45-year-old male with a history of schizophrenia and chronic leg pain is here today with ongoing leg pain. Denies any other acute injuries or complaints. He is brought in by EMS. Patient is well-known to our ER and has frequent visits for this evaluation. He is observed self ambulating without assistance. He denies any other changes or new injuries. He has no other complaints. Related Data Previous Rx's ?Medication ?Instructions ?Recorded sulfamethoxazole 800 1 tab PO BID #14 tabs mg-trimethoprim 160 mg tablet (Bactrim DS) cyclobenzaprine 5 mg tablet 5 mg PO TID PRN muscle spa sm #30 07/23/23 tabs naproxen 500 mg tablet 500 mg PO BID PRN pain #30 t abs 07/23/23 naproxen 500 mg tablet 500 mg PO BID PRN pain #30 t abs 08/08/23 tamsulosin 0.4 mg capsule (Flomax) 0.4 mg PO QDAY #30 caps 08/08/23 baclofen 10 mg tablet 10 mg PO BID PRN muscle spas m #30 08/14/23 tabs naproxen 500 mg tablet 500 mg PO BID PRN pain #30 t abs 08/14/23 ibuprofen 800 mg tablet 800 mg PO TID PRN pain #30 t abs 08/28/23 ibuprofen 600 mg tablet 600 mg PO Q6H PRN pain #30 t abs 01/27/24 methocarbamol 500 mg tablet 1,000 mg (2 x 500 mg) PO Q 8H PRN 01/27/24 pain #30 tabs naproxen 500 mg tablet (Naprosyn) 500 mg PO BID #14 ta bs 03/15/24 ibuprofen 800 mg tablet 800 mg PO TID PRN pain #30 t abs 04/02/24 cyclobenzaprine 5 mg tablet 5 mg PO TID PRN muscle spa sm #14 04/07/24 tabs ibuprofen 600 mg tablet 600 mg PO Q6H PRN fever or p ain 05/19/24 #30 tabs ibuprofen 600 mg tablet 600 mg PO Q6H PRN pain #30 t abs 04/07/24 cyclobenzaprine 5 mg tablet 5 mg PO TID PRN muscle spa sm #30 04/11/24 tabs naproxen 500 mg tablet 500 mg PO BID PRN pain #30 t abs 04/11/24 ibuprofen 600 mg tablet 600 mg PO Q8H PRN pain #20 t abs 11/03/24 acetaminophen 500 mg capsule 500 mg PO Q6H PRN pain #3 0 caps 12/03/24 acetaminophen 500 mg capsule 500 mg PO Q6H PRN pain #3 0 caps 12/15/24 cyclobenzaprine 5 mg tablet 5 mg PO TID PRN muscle spa sm #15 12/20/24 tabs lidocaine 5 % topical patch 2 patch topical QDAY PRN p ain #30 12/20/24 (Lidoderm) ea naproxen 500 mg tablet 500 mg PO BID PRN pain #14 t abs 04/04/25 Allergies Allergy/AdvReac Type Severity Reaction Status Date / Time No Known Allergies Allergy Verified 06/09/25 17:46 Review of Systems Review of Systems Systems Reviewed: All systems reviewed, normal except as documented ED Exam General Limitations: Present no limitations General appearance: Present alert and in no apparent distress Head Head exam: Present atraumatic Eye Eye exam: Present normal appearance, PERRL and EOMI ENT ENT exam: Present normal exam, normal oropharynx and mucous membranes moist Neck Neck exam: Present normal inspection, full ROM and trachea midline Chest Chest inspection: Present normal inspection and symmetric chest wall rise Respiratory Respiratory exam: Present normal lung sounds bilaterally Cardiovascular Cardiovascular exam: Present regular rate, normal rhythm and normal heart sounds Abdominal Exam Abdominal exam: Present soft and normal bowel sounds Extremities Exam Extremities exam: Present normal inspection and full ROM Back Exam Back exam: Present normal inspection and full ROM Neurological Exam Neurological exam: Present alert, oriented X3 and other (Patient has a stable, shuffling gait, that is his baseline) Psychiatric Psychiatric exam: Present other (Affect is flat) Skin Skin exam: Present warm, dry, intact and normal color Course Quality Measures none Vital Signs Vital signs: Vital Signs Temperature 98.5 F 06/09/25 13:37 Pulse Rate 79 06/09/25 13:37 Respiratory Rate 17 06/09/25 13:37 Blood Pressure 145/95 H 06/09/25 13:37 Pulse Oximetry (%) 100 06/09/25 13:37 Oxygen Delivery Method Room Air 06/09/25 13:37 Extremity Injury, Lower MDM Narrative MDM Narrative:: 45-year-old male with a history of schizophrenia and chronic leg pain is here today with ongoing leg pain. Denies any other acute injuries or complaints. He is brought in by EMS. Patient is well-known to our ER and has frequent visits for this evaluation. He is observed self ambulating without assistance. He denies any other changes or new injuries. He has no other complaints. On exam patient is answering questions appropriately. He has a shuffling, gait, that is his baseline. He has no other acute complaints or concerns. He will be discharged in the ER at this time. Patient data External records reviewed:: None Clinical information provided by:: patient and EMS Social determinants that could affect healthcare access:: none Patient has the following chronic illnesses:: Schizophrenia, leg pain How is presenting disease/condition affected by chronic disease/condition?: e xacerbated by Evaluation data The following diagnostics were reviewed and interpreted by me:: other (specify) (n/a) Lab and/or radiology exams considered but not ordered:: n/a Interpretation Summary: n/a Medications / Prescriptions Medications or Prescriptions considered but not ordered:: n/a Medication administrations:: n/a Consultations Consultation(s) initiated? (list below): No Diagnosis Most likely diagnosis given after review of the tests above:: Chronic leg pain Admission Indicated Admission indicated?: not indicated Admission Request Was there a request for admission?: No Disposition Plan Disposition Plan: Discharge Discharge Attestation Discharge Attestation: The patient and all family members were given an opportunity to ask questions and understood the discharge instructions. Discharge instructions specifically effects, indications for sooner follow up or return to the emergency department, and the expected course of current diagnosis. Patient condition: Stable Discharge Plan Plan Patient Disposition: HOME (Self Care) Patient condition on transfer: Stable Prescriptions/Referrals Prescriptions/Med Rec: No Action naproxen 500 mg tablet 500 mg PO BID PRN (Reason: pain) Qty: 30 0RF cyclobenzaprine 5 mg tablet 5 mg PO TID PRN (Reason: muscle spasm) Qty: 30 0RF naproxen 500 mg tablet 500 mg PO BID PRN (Reason: pain) Qty: 30 0RF baclofen 10 mg tablet 10 mg PO BID PRN (Reason: muscle spasm) Qty: 30 0RF ibuprofen 800 mg tablet 800 mg PO TID PRN (Reason: pain) Qty: 30 0RF ibuprofen 800 mg tablet 800 mg PO TID PRN (Reason: pain) Qty: 30 0RF ibuprofen 600 mg tablet 600 mg PO Q6H PRN (Reason: pain) Qty: 30 0RF ibuprofen 600 mg tablet 600 mg PO Q8H PRN (Reason: pain) Qty: 20 0RF acetaminophen 500 mg capsule 500 mg PO Q6H PRN (Reason: pain) Qty: 30 0RF lidocaine [Lidoderm] 5 % adhesive patch,medicated 2 patch topical QDAY PRN (Reason: pain) Qty: 30 0RF Rx Instructions: leave on most painful area for up to 12 hrs cyclobenzaprine 5 mg tablet 5 mg PO TID PRN (Reason: muscle spasm) Qty: 15 0RF naproxen 500 mg tablet 500 mg PO BID PRN (Reason: pain) Qty: 14 0RF sulfamethoxazole-trimethoprim [Bactrim DS] 800-160 mg tablet 1 tab PO BID Qty: 14 0RF naproxen 500 mg tablet 500 mg PO BID PRN (Reason: pain) Qty: 30 0RF tamsulosin [Flomax] 0.4 mg capsule 0.4 mg PO QDAY Qty: 30 0RF ibuprofen 600 mg tablet 600 mg PO Q6H PRN (Reason: pain) Qty: 30 0RF methocarbamol 500 mg tablet 1,000 mg PO Q8H PRN (Reason: pain) Qty: 30 0RF naproxen [Naprosyn] 500 mg tablet 500 mg PO BID Qty: 14 0RF ibuprofen 600 mg tablet 600 mg PO Q6H PRN (Reason: fever or pain) Qty: 30 0RF cyclobenzaprine 5 mg tablet 5 mg PO TID PRN (Reason: muscle spasm) Qty: 14 0RF naproxen 500 mg tablet 500 mg PO BID PRN (Reason: pain) Qty: 30 0RF cyclobenzaprine 5 mg tablet 5 mg PO TID PRN (Reason: muscle spasm) Qty: 30 0RF acetaminophen 500 mg capsule 500 mg PO Q6H PRN (Reason: pain) Qty: 30 0RF Problem List Clinical Impression: Chronic leg pain Patient/Caregiver Discharge Instructions Education Materials: ED Chronic Pain Additional Instructions: - Follow-up in clinic. - Please return to the ER for any emergent changes including open wounds, fevers, or any injuries, or falls. Print Language: Maori Stand Alone Forms: Tami Award Info., Patient Portal Info Letter
== END 2025-06-09 14:51 | disposition home or self-care (01) ==
LOC: SERX 14:47
PROVIDERS: Emergency Provider Emergency Medicine; PCP Family Medicine
DX: M79.606 Pain in leg, unspecified (principal)
CPT/HCPCS: 99282

== ENCOUNTER 2025-06-09 17:45 | Emergency (ER) | payer MEDICAID, SELFPAY ==
[2025-06-09 17:45] VITALS: PULSE 82; O2SAT 98
[2025-06-09 18:21] VITALS: BP 135/87; PULSE 83; RESP 17; TEMP 37; O2SAT 98
--- NOTE | 2025-06-09 19:38 | PD.EDLOWEX ---
Lower Extremity Injury RME/HPI General Chief Complaint: Extremity Injury, Lower Stated Complaint: LEG PAIN Time Seen by Provider: 06/09/25 18:12 Source: patient Arrival date/time: 06/09/25 17:45 This is a case of 45-year-old male with a history of schizophrenia and chronic leg pain is here today with ongoing leg pain. Denies any other acute injuries or complaints. . Patient is well-known to our ER and has frequent visits for this evaluation. He is observed self ambulating without assistance. He denies any other changes or new injuries. He has no other complaints. Patient was here this morning for the same symptoms and discharged as chronic leg pain Limitations: no limitations Related Data Previous Rx's ?Medication ?Instructions ?Recorded sulfamethoxazole 800 1 tab PO BID #14 tabs 03/09/23 mg-trimethoprim 160 mg tablet (Bactrim DS) cyclobenzaprine 5 mg tablet 5 mg PO TID PRN muscle spasm #30 07/23/23 tabs naproxen 500 mg tablet 500 mg PO BID PRN pain #30 tabs 07/23/23 naproxen 500 mg tablet 500 mg PO BID PRN pain #30 tabs 08/08/23 tamsulosin 0.4 mg capsule (Flomax) 0.4 mg PO QDAY #30 caps 08/08/23 baclofen 10 mg tablet 10 mg PO BID PRN muscle spasm #30 08/14/23 tabs naproxen 500 mg tablet 500 mg PO BID PRN pain #30 tabs 08/14/23 ibuprofen 800 mg tablet 800 mg PO TID PRN pain #30 tabs 08/28/23 ibuprofen 600 mg tablet 600 mg PO Q6H PRN pain #30 tabs 01/27/24 methocarbamol 500 mg tablet 1,000 mg (2 x 500 mg) PO Q8H PRN 01/27/24 pain #30 tabs naproxen 500 mg tablet (Naprosyn) 500 mg PO BID #14 tabs 03/15/24 ibuprofen 800 mg tablet 800 mg PO TID PRN pain #30 tabs 04/02/24 cyclobenzaprine 5 mg tablet 5 mg PO TID PRN muscle spasm #14 04/07/24 tabs ibuprofen 600 mg tablet 600 mg PO Q6H PRN fever or pain 04/07/24 #30 tabs ibuprofen 600 mg tablet 600 mg PO Q6H PRN pain #30 tabs 04/07/24 cyclobenzaprine 5 mg tablet 5 mg PO TID PRN muscle spasm #30 04/11/24 tabs naproxen 500 mg tablet 500 mg PO BID PRN pain #30 tabs 04/11/24 ibuprofen 600 mg tablet 600 mg PO Q8H PRN pain #20 tabs 11/03/24 acetaminophen 500 mg capsule 500 mg PO Q6H PRN pain #30 caps 12/03/24 acetaminophen 500 mg capsule 500 mg PO Q6H PRN pain #30 caps 12/15/24 cyclobenzaprine 5 mg tablet 5 mg PO TID PRN muscle spasm #15 12/20/24 tabs lidocaine 5 % topical patch 2 patch topical QDAY PRN pain #30 12/20/24 (Lidoderm) ea naproxen 500 mg tablet 500 mg PO BID PRN pain #14 tabs 04/04/25 Allergies Allergy/AdvReac Type Severity Reaction Status Date / Time No Known Allergies Allergy Verified 06/09/25 17:46 Review of Systems Review of Systems Systems Reviewed: All systems reviewed, normal except as documented Constitutional Constitutional: Reports system reviewed and no additional complaints, except as documented and Reports as per HPI ENT Ears, Nose, Mouth, and Throat: Denies neck pain Cardiovascular Cardiovascular: Reports system reviewed and no additional complaints, except as documented and Reports as per HPI Respiratory Respiratory: Reports system reviewed and no additional complaints, except as documented and Reports as per HPI Gastrointestinal Gastrointestinal: Reports system reviewed and no additional complaints, except as documented and Reports as per HPI Genitourinary Genitourinary: Reports system reviewed and no additional complaints, except as documented and Reports as per HPI Musculoskeletal Musculoskeletal: Reports system reviewed and no additional complaints, except as documented, Reports as per HPI, Denies abnormal gait, Denies arthralgias, Denies atrophy, Denies back pain, Denies deformity, Denies joint swelling, Denies limited range of motion, Denies loss of height, Denies muscle cramps, Denies muscle weakness, Denies myalgias, Denies neck pain, Denies numbness, Denies radiating pain into limb, Denies stiffness, Denies tingling and Reports other (Leg pain) Neurologic Neurologic: Reports system reviewed and no additional complaints, except as documented, Reports as per HPI, Denies abnormal gait, Denies numbness and Denies tingling Past Medical History Past Medical History NEUROLOGIC: Positive Cerebrovascular Accident; Negative Neurological Disorders CARDIAC: Positive Myocardial Infarction and Hypercholesterolemia; Negative Cardiac Disorders or Congestive Heart Failure RESPIRATORY: Negative Chronic Obstructive Pulmonary Disease (COPD) GASTROINTESTINAL: Negative Gastrointestinal Disorders GENITOURINARY: Negative Genitourinary Disorders or Renal Disease MUSCULOSKELETAL: Negative Musculoskeletal Disorders ENDOCRINE: Negative Endocrine Disorders, Diabetes Mellitus Type 1 or Diabetes Mellitus Type 2 HEMATOLOGIC: Negative Blood Disorders OTHER HISTORY: Negative Autoimmune Disease or Clostridium Difficile Social History SMOKING STATUS: Current every day smoker SUBSTANCE USE: methamphetamine ED Exam General Limitations: Present no limitations General appearance: Present alert, in no apparent distress and other (Patient is awake alert oriented not in distress not toxic look) Head Head exam: Present atraumatic, normocephalic and normal inspection Eye Eye exam: Present normal appearance, PERRL and EOMI ENT ENT exam: Present normal exam, normal oropharynx and mucous membranes moist Neck Neck exam: Present normal inspection, full ROM and trachea midline Chest Chest inspection: Present normal inspection and symmetric chest wall rise Respiratory Respiratory exam: Present normal lung sounds bilaterally; Absent respiratory distress, wheezes, stridor, accessory muscle use or prolonged expiratory phase Cardiovascular Cardiovascular exam: Present regular rate, normal rhythm and normal heart sounds; Absent bradycardia, tachycardia, irregular rhythm, systolic murmur, diastolic murmur or rubs Abdominal Exam Abdominal exam: Present soft and normal bowel sounds Extremities Exam Extremities exam: Present normal inspection and full ROM Expanded Lower Extremity Exam Hip/Pelvis exam: Present normal inspection and full ROM; Absent tenderness or swelling Upper leg exam: Present normal inspection and full ROM; Absent tenderness or swelling Knee exam: Present normal inspection and full ROM; Absent tenderness or swelling Lower leg exam: Present normal inspection, full ROM and other (ROM intact neurovascular intact steady gait negative Montalvo sign both lower extremities); Absent tenderness, swelling, abrasion, laceration, ecchymosis, deformity, crepitus, dislocation, erythema, palpable cord, Homans' sign or Achilles tendon intact Ankle exam: Present normal inspection and full ROM; Absent tenderness or swelling Foot/toe exam: Present normal inspection and full ROM; Absent tenderness or swelling Back Exam Back exam: Present normal inspection and full ROM Neurological Exam Neurological exam: Present alert, oriented X3 and CN II-XII intact Psychiatric Psychiatric exam: Present normal affect and normal mood Skin Skin exam: Present warm, dry, intact and normal color Course Quality Measures none Orders Category Date Time Status Acetaminophen Tab [Tylenol Tab] Med 06/09/25 19:30 Once 1,000 mg PO X1 ONE Vital Signs Vital signs: Vital Signs Temperature 98.6 F 06/09/25 18:21 Pulse Rate 83 06/09/25 18:21 Respiratory Rate 17 06/09/25 18:21 Blood Pressure 135/87 H 06/09/25 18:21 Pulse Oximetry (%) 98 06/09/25 18:21 Oxygen Delivery Method Room Air 06/09/25 18:21 Patient is afebrile not tachycardic not tachypneic BP stable not hypoxic oxygen saturation is 98% in room air Extremity Injury, Lower MDM Narrative MDM Narrative:: This is a case of 45-year-old male with a history of schizophrenia and chronic leg pain is here today with ongoing leg pain. Denies any other acute injuries or complaints. . Patient is well-known to our ER and has frequent visits for this evaluation. He is observed self ambulating without assistance. He denies any other changes or new injuries. He has no other complaints. Patient was here this morning for the same symptoms and discharged as chronic leg pain physical examination were normal patient is awake alert oriented not in distress not toxic looking patient both lower extremities noted normal no tenderness no swelling no wound no laceration no abrasion no open wound no redness ROM intact neurovascular intact no calf tenderness negative Montalvo signs negative Homans signs patient verbalized only wanted to have pain medication?I only gave Tylenol and patient states that he will follow-up with his PCP to be referred to Ortho for chronic leg pain and pain management doctor for pain control for any recurrence persistent worsening symptoms he will return in the emergency room immediately or call 911 Patient was discharged with comfortable condition walking with stable gait. Patient verbalized no further complains explained diagnosis and answered patient question. Patient is comfortable with the proposed management plan including the need to follow up with his/her primary care physician and any specialist if applicable Discussed patient for any urgent condition or worsening sx, He/She needed to go to emergency room immediately or call 911. Patient acknowledge the responsibility to follow up as instructed and to monitor her/his symptoms. For any persistence of the symptoms for more than 3-5 days return precaution advised. Discussed the result of the test and was given printed discharge instruction Patient data External records reviewed:: [facility] previous records Clinical information provided by:: patient Social determinants that could affect healthcare access:: none Patient has the following chronic illnesses:: None How is presenting disease/condition affected by chronic disease/condition?: no chronic disease Evaluation data The following diagnostics were reviewed and interpreted by me:: other (specify) (None) Lab and/or radiology exams considered but not ordered:: None Interpretation Summary: None Medications / Prescriptions Medications or Prescriptions considered but not ordered:: Given Medication administrations:: Medication Administration History Acetaminophen (Acetaminophen 325 Mg Tablet) 1,000 mg PO X1 ONE Stop: 06/09/25 19:31 Given Consultations Consultation(s) initiated? (list below): No Diagnosis Extremity Injury, Lower Differential Diagnosis: other (Chronic leg pain) Most likely diagnosis given after review of the tests above:: Chronic leg pain Admission Indicated Admission indicated?: not indicated Explain why admission is indicated or not indicated:: Not indicated Admission Request Was there a request for admission?: No Admission Attestation Admission request attestation: Not indicated Disposition Plan Disposition Plan: Discharge Discharge Attestation Discharge Attestation: The patient and all family members were given an opportunity to ask questions and understood the discharge instructions. Discharge instructions specifically effects, indications for sooner follow up or return to the emergency department, and the expected course of current diagnosis. Patient condition: Stable Discharge Plan Plan Patient Disposition: HOME (Self Care) Patient condition on transfer: Stable Prescriptions/Referrals Prescriptions/Med Rec: No Action naproxen 500 mg tablet 500 mg PO BID PRN (Reason: pain) Qty: 30 0RF cyclobenzaprine 5 mg tablet 5 mg PO TID PRN (Reason: muscle spasm) Qty: 30 0RF naproxen 500 mg tablet 500 mg PO BID PRN (Reason: pain) Qty: 30 0RF baclofen 10 mg tablet 10 mg PO BID PRN (Reason: muscle spasm) Qty: 30 0RF ibuprofen 800 mg tablet 800 mg PO TID PRN (Reason: pain) Qty: 30 0RF ibuprofen 800 mg tablet 800 mg PO TID PRN (Reason: pain) Qty: 30 0RF ibuprofen 600 mg tablet 600 mg PO Q6H PRN (Reason: pain) Qty: 30 0RF ibuprofen 600 mg tablet 600 mg PO Q8H PRN (Reason: pain) Qty: 20 0RF acetaminophen 500 mg capsule 500 mg PO Q6H PRN (Reason: pain) Qty: 30 0RF lidocaine [Lidoderm] 5 % adhesive patch,medicated 2 patch topical QDAY PRN (Reason: pain) Qty: 30 0RF Rx Instructions: leave on most painful area for up to 12 hrs cyclobenzaprine 5 mg tablet 5 mg PO TID PRN (Reason: muscle spasm) Qty: 15 0RF naproxen 500 mg tablet 500 mg PO BID PRN (Reason: pain) Qty: 14 0RF sulfamethoxazole-trimethoprim [Bactrim DS] 800-160 mg tablet 1 tab PO BID Qty: 14 0RF naproxen 500 mg tablet 500 mg PO BID PRN (Reason: pain) Qty: 30 0RF tamsulosin [Flomax] 0.4 mg capsule 0.4 mg PO QDAY Qty: 30 0RF ibuprofen 600 mg tablet 600 mg PO Q6H PRN (Reason: pain) Qty: 30 0RF methocarbamol 500 mg tablet 1,000 mg PO Q8H PRN (Reason: pain) Qty: 30 0RF naproxen [Naprosyn] 500 mg tablet 500 mg PO BID Qty: 14 0RF ibuprofen 600 mg tablet 600 mg PO Q6H PRN (Reason: fever or pain) Qty: 30 0RF cyclobenzaprine 5 mg tablet 5 mg PO TID PRN (Reason: muscle spasm) Qty: 14 0RF naproxen 500 mg tablet 500 mg PO BID PRN (Reason: pain) Qty: 30 0RF cyclobenzaprine 5 mg tablet 5 mg PO TID PRN (Reason: muscle spasm) Qty: 30 0RF acetaminophen 500 mg capsule 500 mg PO Q6H PRN (Reason: pain) Qty: 30 0RF Referrals: Lavell (PCP)Cdoy MD [Primary Care Provider] - In 1 week Problem List Clinical Impression: Chronic leg pain Patient/Caregiver Discharge Instructions Education Materials: ED Chronic Pain, ED Leg Spasm Additional Instructions: Follow-up with your primary care physician in 2 days for reevaluation and to be referred to orthopedic surgeon for chronic leg pain and pain management doctor for pain control recurrent persistent worsening symptoms or any emergent concern call 911 or go to the nearest emergency room ice pack and warm compress as needed for pain Tylenol Motrin as needed for pain Print Language: Bengali Stand Alone Forms: Tami Award Info., Patient Portal Info Letter FAINA/ELECTROSLAG WELDING MACHINE OPERATOR Supervising Physician FAINA/ELECTROSLAG WELDING MACHINE OPERATOR Supervising Physician: DR roblero
--- NOTE | 2025-06-09 19:50 | PC.NURSE ---
Pt called for meds and dc at this time. Pt refusing to take meds and to leave. Per pt requesting to call ppd. Charge, triage nurse and security aware of situation.
== END 2025-06-09 23:11 | disposition home or self-care (01) ==
PROVIDERS: Emergency Provider Emergency Medicine; PCP Family Medicine
DX: M79.606 Pain in leg, unspecified (principal); G89.29 Other chronic pain
CPT/HCPCS: 99282

== ENCOUNTER 2025-06-10 13:33 | Emergency (ER) | payer MEDICAID, SELFPAY ==
[2025-06-10 13:33] VITALS: PULSE 98; RESP 17; O2SAT 96
[2025-06-10 14:07] VITALS: BP 134/88; PULSE 76; RESP 16; TEMP 37.2; O2SAT 98; BMI 25.0
--- NOTE | 2025-06-10 14:37 | PD.EDRME ---
Rapid Medical Screening Exam RME Arrival date/time: 06/10/25 13:33 45-year-old male presents via EMS for concerns of bilateral leg pain which is chronic patient is homeless and admits to methamphetamine abuse Chief Complaint: Extremity Problem,Nontraumatic Time Seen by Provider: 06/10/25 13:37 Vital signs: Vital Signs Temperature 98.9 F 06/10/25 14:07 Pulse Rate 76 06/10/25 14:07 Respiratory Rate 16 06/10/25 14:07 Blood Pressure 134/88 H 06/10/25 14:07 Pulse Oximetry (%) 98 06/10/25 14:07 Oxygen Delivery Method Room Air 06/10/25 14:07
--- NOTE | 2025-06-10 15:27 | PC.CC ---
Addendum entered by Monica Robertson 06/10/25 16:24: Pt was provided a shower, change of clothing, and community resources to the [facility] and [facility] homeless programs. Pt was also offered AOD services from [facility]. Pt was receptive. 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 ASW-Monica Robertson met with patient [id number] to complete assessment. ASW introduced self, role, and reason for assessment. ASW disclosed limits of confidentiality as well. Patient appeared alert and oriented to self, place, and situation. Patient was pleasant; his mood appeared calm; his behavior appeared disinhibited with flat affect. Patient?s thought process was disorganized. No signs of delusions, paranoid or AVH. It should be known that pt arrives into the ER daily, defecated on himself, and today he also arrived defecated on himself, and he arrives daily asking to be fed and asks for clothes. Pt is viewed to be uncleaned, his behavior was eratic and liang. Pt admitted to using Meth recently and currently being under the influence of drugs. Pt reports he is uses Meth about 3-4 times a week. Pt reports he does not have a PCP and nor does he see anyone for mental health purposes. Pt reported that prior to his stroke, to his memory, he was diagnosed with bipolar disorder, but stated he is not forsure. Pt reports his mental health and drug use are major contributors to disrupting the care of himself. Pt reports he receives SSDI and does not have any other income. Pt reports he does not have any family or friends to assist with taking care of him. Pt reports he sleeps in the community and often engages with negative law enforcement contact. Pt reports he is wanting and willing to go to a residential drug and alcohol treatment program. ASW gathered information from the [facility] at [facility]. [facility] in [facility] [phone], and was told that every Monday they offer a drug and alcohol intake and are able to refer the pt to a residential treatment program. [facility] also offers breakfast Monday-Monday 9am-11:30am and Lunch Monday-Monday at 12pm. Pt is aware of this aware of the services. ASW informed pt and he stated he is willing to attend the intake. ASW arranged transportation for the pt via [employer] and he was discharged to the [facility]dc.
[2025-06-10 15:31] LABS: Basophils # (Auto) 0.1 Thou/mm3 (0.0-0.2); Basophils % (Auto) 0 % (0-2.5); Eosinophils # (Auto) 0.1 Thou/mm3 (0.0-0.5); Eosinophils % (Auto) 1 % (0-10); Hematocrit 41.0 % (41.0-53.0); Hemoglobin 13.9 g/dL (13.5-16.0); Immature Granulocytes Auto 0.09 Thou/mm3 (0.00-0.00); Lymphocytes # (Auto) 0.9 Thou/mm3 (1.0-4.8); Lymphocytes % (Auto) 8 % (10-50); Mean Corpuscular HGB Conc 33.9 g/dl (31.0-37.0); Mean Corpuscular Hemoglobin 30.4 pg (25.0-35.0); Mean Corpuscular Volume 90 fL (80-100); Monocytes # (Auto) 0.4 Thou/mm3 (0.0-0.8); Monocytes % (Auto) 3 % (0-12); Neutrophils # (Auto) 9.8 Thou/mm3 (1.8-7.7); Neutrophils % (Auto) 87 % (37-80); Nucleated Red Blood Cell # 0.00 Thou/mm3 (0.00-0.00); Nucleated Red Blood Cell % 0 /100 WBC (0); Platelet Count 445 Thou/mm3 (140-440); RDW Standard Deviation 41.1 fL (35.1-43.9); Red Blood Count 4.57 Miln/mm3 (4.50-5.90); White Blood Count 11.3 Thou/mm3 (3.8-10.6)
[2025-06-10 15:56] LABS: Alanine Aminotransferase 20 U/L (10-49); Albumin, Serum 4.6 gm/dL (3.5-5.0); Albumin/Globulin Ratio 1.4 (1.2-2.2); Alkaline Phosphatase 84 U/L (46-116); Anion Gap 11 (7-16); Aspartate Amino Transferase 15 U/L (0-34); BUN/Creatinine Ratio 16 Ratio (12-20); Bilirubin,Total 0.6 mg/dL (0.3-1.2); Blood Urea Nitrogen 18 mg/dL (9-23); Calcium 9.4 mg/dL (8.3-10.6); Calcium (Corrected) 9.4 mg/dL (8.5-10.1); Carbon Dioxide 29.4 mMol/L (20.0-31.0); Chloride 101 mMol/L (98-107); Creatinine (Component) 1.1 mg/dL (0.6-1.3); Estimated Creatinine Clearance 77.6 mL/min (>60); Globulin 3.3 gm/dL (2.3-3.5); Glucose 135 mg/dL (74-106); Osmolality,Calculated 285 (275-295); Potassium 3.5 mMol/L (3.4-5.1); Sodium 141 mMol/L (136-145); Total Protein 7.9 gm/dL (5.7-8.2); eGFR > 60 See Note
[2025-06-10 16:18] LABS: Alcohol, Urine Negative (Negative); Amphetamine/Methamp Scrn,U Negative (Negative); Barbiturate Screen,Urine Negative (Negative); Benzodiazepines Screen,Urine Negative (Negative); Benzoylecgonine Screen, Ur Negative (Negative); Fentanyl Screen,Urine Negative (Negative); Opiate Screen,Urine Negative (Negative); THC Screen,Urine Negative (Negative)
--- NOTE | 2025-06-10 16:30 | EDNOTE_ITS ---
ED Extremity Problem RME/HPI General Chief complaint: Extremity Problem,Nontraumatic Stated complaint: Leg pain Time Seen by Provider: 06/10/25 13:37 Arrival date/time: 06/10/25 13:33 45-year-old male presents via EMS for concerns of bilateral leg pain which is chronic patient is homeless and admits to methamphetamine abuse Limitations: no limitations RME / HPI RME / HPI Narrative: 06/10/25 13:33 45-year-old male presents via EMS for concerns of bilateral leg pain which is chronic patient is homeless and admits to methamphetamine abuse Related Data Previous Rx's ?Medication ?Instructions ?Recorded sulfamethoxazole 800 1 tab PO BID #14 tabs mg-trimethoprim 160 mg tablet (Bactrim DS) cyclobenzaprine 5 mg tablet 5 mg PO TID PRN muscle spa sm #30 07/23/23 tabs naproxen 500 mg tablet 500 mg PO BID PRN pain #30 t abs 07/23/23 naproxen 500 mg tablet 500 mg PO BID PRN pain #30 t abs 08/08/23 tamsulosin 0.4 mg capsule (Flomax) 0.4 mg PO QDAY #30 caps 08/08/23 baclofen 10 mg tablet 10 mg PO BID PRN muscle spas m #30 08/14/23 tabs naproxen 500 mg tablet 500 mg PO BID PRN pain #30 t abs 08/14/23 ibuprofen 800 mg tablet 800 mg PO TID PRN pain #30 t abs 08/28/23 ibuprofen 600 mg tablet 600 mg PO Q6H PRN pain #30 t abs 01/27/24 methocarbamol 500 mg tablet 1,000 mg (2 x 500 mg) PO Q 8H PRN 01/27/24 pain #30 tabs naproxen 500 mg tablet (Naprosyn) 500 mg PO BID #14 ta bs 03/15/24 ibuprofen 800 mg tablet 800 mg PO TID PRN pain #30 t abs 04/02/24 cyclobenzaprine 5 mg tablet 5 mg PO TID PRN muscle spa sm #14 04/07/24 tabs ibuprofen 600 mg tablet 600 mg PO Q6H PRN fever or p ain 04/07/24 #30 tabs ibuprofen 600 mg tablet 600 mg PO Q6H PRN pain #30 t abs 04/07/24 cyclobenzaprine 5 mg tablet 5 mg PO TID PRN muscle spa sm #30 04/11/24 tabs naproxen 500 mg tablet 500 mg PO BID PRN pain #30 t abs 04/11/24 ibuprofen 600 mg tablet 600 mg PO Q8H PRN pain #20 t abs 11/03/24 acetaminophen 500 mg capsule 500 mg PO Q6H PRN pain #3 0 caps 12/03/24 acetaminophen 500 mg capsule 500 mg PO Q6H PRN pain #3 0 caps 12/15/24 cyclobenzaprine 5 mg tablet 5 mg PO TID PRN muscle spa sm #15 12/20/24 tabs lidocaine 5 % topical patch 2 patch topical QDAY PRN p ain #30 12/20/24 (Lidoderm) ea naproxen 500 mg tablet 500 mg PO BID PRN pain #14 t abs 04/04/25 Allergies Allergy/AdvReac Type Severity Reaction Status Date / Time No Known Allergies Allergy Verified 06/10/25 18:15 Review of Systems Review of Systems Systems Reviewed: All systems reviewed, normal except as documented Constitutional Constitutional: Reports system reviewed and no additional complaints, except as documented, Denies fever(s) and Denies headache(s) Eyes Eyes: Reports system reviewed and no additional complaints, except as documented and Denies blurry vision ENT Ears, Nose, Mouth, and Throat: Reports system reviewed and no additional complaints, except as documented, Denies headache(s), Denies nasal congestion and Denies nasal discharge Cardiovascular Cardiovascular: Reports system reviewed and no additional complaints, except as documented, Denies chest pain and Denies dyspnea Respiratory Respiratory: Reports system reviewed and no additional complaints, except as documented, Denies chest congestion, Denies cough and Denies dyspnea Gastrointestinal Gastrointestinal: Reports system reviewed and no additional complaints, except as documented and Denies abdominal pain Musculoskeletal Musculoskeletal: Reports system reviewed and no additional complaints, except as documented, Denies abnormal gait, Reports arthralgias, Denies back pain, Denies numbness, Denies stiffness and Denies tingling Integumentary/Breasts Skin/Breast: Reports system reviewed and no additional complaints, except as documented and Denies rash Neurologic Neurologic: Reports system reviewed and no additional complaints, except as documented, Reports as per HPI, Denies abnormal gait, Denies headache(s), Denies numbness and Denies tingling Past Medical History Past Medical History NEUROLOGIC: Positive Cerebrovascular Accident; Negative Neurological Disorders CARDIAC: Positive Myocardial Infarction and Hypercholesterolemia; Negative Cardiac Disorders or Congestive Heart Failure RESPIRATORY: Negative Chronic Obstructive Pulmonary Disease (COPD) GASTROINTESTINAL: Negative Gastrointestinal Disorders GENITOURINARY: Negative Genitourinary Disorders or Renal Disease MUSCULOSKELETAL: Negative Musculoskeletal Disorders ENDOCRINE: Negative Endocrine Disorders, Diabetes Mellitus Type 1 or Diabetes Mellitus Type 2 HEMATOLOGIC: Negative Blood Disorders OTHER HISTORY: Negative Autoimmune Disease or Clostridium Difficile Social History SMOKING STATUS: Current every day smoker SUBSTANCE USE: methamphetamine ED Exam General Limitations: Present no limitations General appearance: Present alert and in no apparent distress Head Head exam: Present atraumatic, normocephalic and normal inspection Eye Eye exam: Present normal appearance, PERRL and EOMI; Absent conjunctival injection ENT ENT exam: Present normal exam, normal oropharynx and mucous membranes moist Neck Neck exam: Present normal inspection, full ROM and trachea midline Chest Chest inspection: Present normal inspection and symmetric chest wall rise Respiratory Respiratory exam: Present normal lung sounds bilaterally; Absent respiratory distress Cardiovascular Cardiovascular exam: Present regular rate, normal rhythm and normal heart sounds Abdominal Exam Abdominal exam: Present soft and normal bowel sounds; Absent distention, tenderness, guarding, rebound or rigidity Extremities Exam Extremities exam: Present normal inspection and full ROM Back Exam Back exam: Present normal inspection and full ROM Neurological Exam Neurological exam: Present alert, oriented X3 and CN II-XII intact Psychiatric Psychiatric exam: Present normal affect and normal mood Skin Skin exam: Present warm, dry, intact and normal color Course Quality Measures none Orders Category Date Time Status Consult Evaluation Analyst NOW Care 06/10/25 13:39 Completed Alcohol, Urine Stat Lab 06/10/25 15:54 Completed CBC Stat Lab 06/10/25 15:04 Completed CMP [Comprehensive Metabolic Panel] Stat Lab 06/10/25 15:04 Completed Drug Screen,Urine Stat Lab 06/10/25 15:54 Completed Vital Signs Vital signs: Vital Signs Temperature 98.9 F 06/10/25 14:07 Pulse Rate 76 06/10/25 14:07 Respiratory Rate 16 06/10/25 14:07 Blood Pressure 134/88 H 06/10/25 14:07 Pulse Oximetry (%) 98 06/10/25 14:07 Oxygen Delivery Method Room Air 06/10/25 14:07 O2 saturation 98% room air with normal Extremity Problem MDM Narrative MDM Narrative:: 45-year-old male presents via EMS for concerns of bilateral leg pain which is chronic patient is homeless and admits to methamphetamine abuse Patient shares that he is only really here for food and water and has chronic pain On exam patient well-appearing does not appear ill or toxic patient was given a shower given food and no close manager administrative services was consulted spoke with patient Patient discharged home in no distress to follow-up with primary care doctor in the next 24 to 48 hours and for any worsening symptoms to return to the ER immediately Patient data External records reviewed:: [facility] previous records Clinical information provided by:: patient Social determinants that could affect healthcare access:: housing Patient has the following chronic illnesses:: Homelessness, methamphetamine abuse, stroke How is presenting disease/condition affected by chronic disease/condition?: caused by Evaluation data The following diagnostics were reviewed and interpreted by me:: lab results Lab and/or radiology exams considered but not ordered:: Labs obtained Interpretation Summary: Reviewed by me Medications / Prescriptions Medications or Prescriptions considered but not ordered:: No med Medication administrations:: No meds Consultations Consultation(s) initiated? (list below): No Diagnosis Extremity Problem Differential Diagnosis: herpes zoster and other (Neck pain, back pain, methamphetamine use, homelessness) Most likely diagnosis given after review of the tests above:: Illness Admission Indicated Admission indicated?: not indicated Admission Request Was there a request for admission?: No Disposition Plan Disposition Plan: Discharge Discharge Attestation Discharge Attestation: The patient and all family members were given an opportunity to ask questions and understood the discharge instructions. Discharge instructions specifically effects, indications for sooner follow up or return to the emergency department, and the expected course of current diagnosis. Patient condition: Stable Discharge Plan Plan Patient Disposition: HOME (Self Care) Discharge Disposition comment: Stable Prescriptions/Referrals Prescriptions/Med Rec: No Action naproxen 500 mg tablet 500 mg PO BID PRN (Reason: pain) Qty: 30 0RF cyclobenzaprine 5 mg tablet 5 mg PO TID PRN (Reason: muscle spasm) Qty: 30 0RF naproxen 500 mg tablet 500 mg PO BID PRN (Reason: pain) Qty: 30 0RF baclofen 10 mg tablet 10 mg PO BID PRN (Reason: muscle spasm) Qty: 30 0RF ibuprofen 800 mg tablet 800 mg PO TID PRN (Reason: pain) Qty: 30 0RF ibuprofen 800 mg tablet 800 mg PO TID PRN (Reason: pain) Qty: 30 0RF ibuprofen 600 mg tablet 600 mg PO Q6H PRN (Reason: pain) Qty: 30 0RF ibuprofen 600 mg tablet 600 mg PO Q8H PRN (Reason: pain) Qty: 20 0RF acetaminophen 500 mg capsule 500 mg PO Q6H PRN (Reason: pain) Qty: 30 0RF lidocaine [Lidoderm] 5 % adhesive patch,medicated 2 patch topical QDAY PRN (Reason: pain) Qty: 30 0RF Rx Instructions: leave on most painful area for up to 12 hrs cyclobenzaprine 5 mg tablet 5 mg PO TID PRN (Reason: muscle spasm) Qty: 15 0RF naproxen 500 mg tablet 500 mg PO BID PRN (Reason: pain) Qty: 14 0RF sulfamethoxazole-trimethoprim [Bactrim DS] 800-160 mg tablet 1 tab PO BID Qty: 14 0RF naproxen 500 mg tablet 500 mg PO BID PRN (Reason: pain) Qty: 30 0RF tamsulosin [Flomax] 0.4 mg capsule 0.4 mg PO QDAY Qty: 30 0RF ibuprofen 600 mg tablet 600 mg PO Q6H PRN (Reason: pain) Qty: 30 0RF methocarbamol 500 mg tablet 1,000 mg PO Q8H PRN (Reason: pain) Qty: 30 0RF naproxen [Naprosyn] 500 mg tablet 500 mg PO BID Qty: 14 0RF ibuprofen 600 mg tablet 600 mg PO Q6H PRN (Reason: fever or pain) Qty: 30 0RF cyclobenzaprine 5 mg tablet 5 mg PO TID PRN (Reason: muscle spasm) Qty: 14 0RF naproxen 500 mg tablet 500 mg PO BID PRN (Reason: pain) Qty: 30 0RF cyclobenzaprine 5 mg tablet 5 mg PO TID PRN (Reason: muscle spasm) Qty: 30 0RF acetaminophen 500 mg capsule 500 mg PO Q6H PRN (Reason: pain) Qty: 30 0RF Referrals: Lavell (PCP)Cody MD [Primary Care Provider] - 06/11/25 Problem List Clinical Impression: Chronic leg pain, Homeless, Methamphetamine use Patient/Caregiver Discharge Instructions Education Materials: ED Chronic Pain Additional Instructions: Please follow up with your primary care doctor in the next 24-48hrs for any worsening symptoms return here immediately Print Language: Czech Stand Alone Forms: [employer] Award Info., Patient Portal Info Letter PA/NEGATIVE CHECKER Supervising Physician PA/NEGATIVE CHECKER Supervising Physician: Dr akbar
== END 2025-06-10 16:30 | disposition home or self-care (01) ==
PROVIDERS: Nurse Practitioner Primary Care; Emergency Provider Emergency Medicine; PCP Family Medicine
DX: G89.29 Other chronic pain (principal); F15.10 Other stimulant abuse, uncomplicated; Z59.00 Homelessness unspecified; M79.605 Pain in left leg; M79.604 Pain in right leg
CPT/HCPCS: 36415; 80053; 80307; 80320; 85025; 96127; 99283; G0480

== ENCOUNTER 2025-06-10 17:42 | Emergency (ER) | payer MEDICAID, SELFPAY ==
[2025-06-10 17:45] VITALS: BP 133/84; PULSE 99; RESP 19; TEMP 37.7; O2SAT 95
[2025-06-10 17:48] VITALS: BMI 25.8
--- NOTE | 2025-06-10 18:04 | PC.CC ---
Addendum entered by Monica Robertson 06/10/25 19:18: It should be known that while pt was waiting in the lobby, he defecated on himself. Original Note: Pt is a 45 yo male who was BIBA at 1800. Pt entered the ER with complaints of leg pain. ASW spoke with pt and he stated he is back because the [facility] did not have food for him. Pt reported the [facility] did not have room for him either. Pt reports he is hungry and does not know to get food for himself. Pt is waiting in the lobby to be seen for leg pain.
[2025-06-10 18:09] VITALS: PULSE 103; RESP 16; O2SAT 97
--- NOTE | 2025-06-10 20:10 | EDNOTE_ITS ---
ED General RME/HPI General Chief complaint: Extremity Problem,Nontraumatic Stated complaint: LEG PAIN Time Seen by Provider: 06/10/25 20:09 Source: patient Arrival date/time: 06/10/25 17:42 Mode of arrival: ambulatory Limitations: no limitations RME / HPI RME / HPI narrative: Patient is a 45-year-old male with a history of mental health disease and frequent visits to the ER. At the time of my visit with him, he stated he went a sandwich and juice. He stated he needed no further assistance and had no other complaints. Related Data Previous Rx's ?Medication ?Instructions ?Recorded sulfamethoxazole 800 1 tab PO BID #14 tabs mg-trimethoprim 160 mg tablet (Bactrim DS) cyclobenzaprine 5 mg tablet 5 mg PO TID PRN muscle spa sm #30 07/23/23 tabs naproxen 500 mg tablet 500 mg PO BID PRN pain #30 t abs 07/23/23 naproxen 500 mg tablet 500 mg PO BID PRN pain #30 t abs 08/08/23 tamsulosin 0.4 mg capsule (Flomax) 0.4 mg PO QDAY #30 caps 08/08/23 baclofen 10 mg tablet 10 mg PO BID PRN muscle spas m #30 08/14/23 tabs naproxen 500 mg tablet 500 mg PO BID PRN pain #30 t abs 08/14/23 ibuprofen 800 mg tablet 800 mg PO TID PRN pain #30 t abs 08/28/23 ibuprofen 600 mg tablet 600 mg PO Q6H PRN pain #30 t abs 01/27/24 methocarbamol 500 mg tablet 1,000 mg (2 x 500 mg) PO Q 8H PRN 01/27/24 pain #30 tabs naproxen 500 mg tablet (Naprosyn) 500 mg PO BID #14 ta bs 03/15/24 ibuprofen 800 mg tablet 800 mg PO TID PRN pain #30 t abs 04/02/24 cyclobenzaprine 5 mg tablet 5 mg PO TID PRN muscle spa sm #14 04/07/24 tabs ibuprofen 600 mg tablet 600 mg PO Q6H PRN fever or p ain 04/07/24 #30 tabs ibuprofen 600 mg tablet 600 mg PO Q6H PRN pain #30 t abs 05/19/24 cyclobenzaprine 5 mg tablet 5 mg PO TID PRN muscle spa sm #30 04/11/24 tabs naproxen 500 mg tablet 500 mg PO BID PRN pain #30 t abs 04/11/24 ibuprofen 600 mg tablet 600 mg PO Q8H PRN pain #20 t abs 11/03/24 acetaminophen 500 mg capsule 500 mg PO Q6H PRN pain #3 0 caps 12/03/24 acetaminophen 500 mg capsule 500 mg PO Q6H PRN pain #3 0 caps 12/15/24 cyclobenzaprine 5 mg tablet 5 mg PO TID PRN muscle spa sm #15 12/20/24 tabs lidocaine 5 % topical patch 2 patch topical QDAY PRN p ain #30 12/20/24 (Lidoderm) ea naproxen 500 mg tablet 500 mg PO BID PRN pain #14 t abs 04/04/25 Allergies Allergy/AdvReac Type Severity Reaction Status Date / Time No Known Allergies Allergy Verified 06/10/25 18:15 Review of Systems Review of Systems Systems Reviewed: All systems reviewed, normal except as documented ED Exam General Limitations: Present no limitations General appearance: Present alert and in no apparent distress Head Head exam: Present atraumatic Eye Eye exam: Present normal appearance, PERRL and EOMI ENT ENT exam: Present normal exam, normal oropharynx and mucous membranes moist Neck Neck exam: Present normal inspection, full ROM and trachea midline Chest Chest inspection: Present normal inspection and symmetric chest wall rise Respiratory Respiratory exam: Present normal lung sounds bilaterally Cardiovascular Cardiovascular exam: Present regular rate, normal rhythm and normal heart sounds Abdominal Exam Abdominal exam: Present soft and normal bowel sounds Extremities Exam Extremities exam: Present normal inspection and full ROM Back Exam Back exam: Present normal inspection and full ROM Neurological Exam Neurological exam: Present alert and oriented X3 Psychiatric Psychiatric exam: Present normal affect and normal mood Skin Skin exam: Present warm, dry, intact and normal color Course Quality Measures none Vital Signs Vital signs: Vital Signs Temperature 99.8 F 06/10/25 17:45 Pulse Rate 99 06/10/25 17:45 Respiratory Rate 19 06/10/25 17:45 Blood Pressure 133/84 H 06/10/25 17:45 Pulse Oximetry (%) 95 06/10/25 17:45 Oxygen Delivery Method Room Air 06/10/25 17:45 Discharge Plan Plan Patient Disposition: HOME (Self Care) Patient condition on transfer: Stable Prescriptions/Referrals Prescriptions/Med Rec: No Action naproxen 500 mg tablet 500 mg PO BID PRN (Reason: pain) Qty: 30 0RF cyclobenzaprine 5 mg tablet 5 mg PO TID PRN (Reason: muscle spasm) Qty: 30 0RF naproxen 500 mg tablet 500 mg PO BID PRN (Reason: pain) Qty: 30 0RF baclofen 10 mg tablet 10 mg PO BID PRN (Reason: muscle spasm) Qty: 30 0RF ibuprofen 800 mg tablet 800 mg PO TID PRN (Reason: pain) Qty: 30 0RF ibuprofen 800 mg tablet 800 mg PO TID PRN (Reason: pain) Qty: 30 0RF ibuprofen 600 mg tablet 600 mg PO Q6H PRN (Reason: pain) Qty: 30 0RF ibuprofen 600 mg tablet 600 mg PO Q8H PRN (Reason: pain) Qty: 20 0RF acetaminophen 500 mg capsule 500 mg PO Q6H PRN (Reason: pain) Qty: 30 0RF lidocaine [Lidoderm] 5 % adhesive patch,medicated 2 patch topical QDAY PRN (Reason: pain) Qty: 30 0RF Rx Instructions: leave on most painful area for up to 12 hrs cyclobenzaprine 5 mg tablet 5 mg PO TID PRN (Reason: muscle spasm) Qty: 15 0RF naproxen 500 mg tablet 500 mg PO BID PRN (Reason: pain) Qty: 14 0RF sulfamethoxazole-trimethoprim [Bactrim DS] 800-160 mg tablet 1 tab PO BID Qty: 14 0RF naproxen 500 mg tablet 500 mg PO BID PRN (Reason: pain) Qty: 30 0RF tamsulosin [Flomax] 0.4 mg capsule 0.4 mg PO QDAY Qty: 30 0RF ibuprofen 600 mg tablet 600 mg PO Q6H PRN (Reason: pain) Qty: 30 0RF methocarbamol 500 mg tablet 1,000 mg PO Q8H PRN (Reason: pain) Qty: 30 0RF naproxen [Naprosyn] 500 mg tablet 500 mg PO BID Qty: 14 0RF ibuprofen 600 mg tablet 600 mg PO Q6H PRN (Reason: fever or pain) Qty: 30 0RF cyclobenzaprine 5 mg tablet 5 mg PO TID PRN (Reason: muscle spasm) Qty: 14 0RF naproxen 500 mg tablet 500 mg PO BID PRN (Reason: pain) Qty: 30 0RF cyclobenzaprine 5 mg tablet 5 mg PO TID PRN (Reason: muscle spasm) Qty: 30 0RF acetaminophen 500 mg capsule 500 mg PO Q6H PRN (Reason: pain) Qty: 30 0RF Referrals: Lavell (PCP),MD Cody [Primary Care Provider] - In 1 week Problem List Clinical Impression: Homeless Patient/Caregiver Discharge Instructions Additional Instructions: - Follow-up with your primary doctor. - Return to the emergency room for any emergent changes or concerns. Print Language: Gambian Stand Alone Forms: [employer] Award Info., Patient Portal Info Letter MDM Narrative MDM hospital course: Patient is a 45-year-old male with a history of mental health disease and frequent visits to the ER. At the time of my visit with him, he stated he went a sandwich and juice. He stated he needed no further assistance and had no other complaints. On exam, patient is self ambulating without assistance. He has a shuffling gait that is his baseline. His vital signs are stable. He has no medical complaints at this time. He will be discharged from the emergency room. He is asked to return as needed for any emergent changes or concerns.
== END 2025-06-10 20:34 | disposition home or self-care (01) ==
PROVIDERS: Emergency Provider Emergency Medicine; PCP Family Medicine
DX: M79.606 Pain in leg, unspecified (principal); Z59.00 Homelessness unspecified
CPT/HCPCS: 99282

== ENCOUNTER 2025-06-11 07:37 | Emergency (ER) | payer MEDICAID, SELFPAY ==
[2025-06-11 07:42] VITALS: PULSE 88; RESP 18
[2025-06-11 08:02] VITALS: BP 129/82; PULSE 72; RESP 18; TEMP 36.7; O2SAT 100; BMI 27.4
--- NOTE | 2025-06-11 08:16 | EDNOTE_ITS ---
ED Extremity Problem RME/HPI General Stated complaint: LEG PAIN Time Seen by Provider: 06/11/25 08:15 Source: patient Arrival date/time: 06/11/25 07:37 Mode of arrival: wheelchair Limitations: no limitations and physical limitation (Chronic lower extremity pain.) RME / HPI RME / HPI Narrative: 25-year-old male presents to the ED with a complaint of left and right leg pain that began 2 days ago. Patient tells me he had a stroke a few years ago which has caused him numerous problems with his lower extremities patient MD Complaint: extremity pain Related Data Previous Rx's ?Medication ?Instructions ?Recorded sulfamethoxazole 800 1 tab PO BID #14 tabs mg-trimethoprim 160 mg tablet (Bactrim DS) cyclobenzaprine 5 mg tablet 5 mg PO TID PRN muscle spa sm #30 07/23/23 tabs naproxen 500 mg tablet 500 mg PO BID PRN pain #30 t abs 07/23/23 naproxen 500 mg tablet 500 mg PO BID PRN pain #30 t abs 08/08/23 tamsulosin 0.4 mg capsule (Flomax) 0.4 mg PO QDAY #30 caps 08/08/23 baclofen 10 mg tablet 10 mg PO BID PRN muscle spas m #30 08/14/23 tabs naproxen 500 mg tablet 500 mg PO BID PRN pain #30 t abs 08/14/23 ibuprofen 800 mg tablet 800 mg PO TID PRN pain #30 t abs 08/28/23 ibuprofen 600 mg tablet 600 mg PO Q6H PRN pain #30 t abs 01/27/24 methocarbamol 500 mg tablet 1,000 mg (2 x 500 mg) PO Q 8H PRN 01/27/24 pain #30 tabs naproxen 500 mg tablet (Naprosyn) 500 mg PO BID #14 ta bs 03/15/24 ibuprofen 800 mg tablet 800 mg PO TID PRN pain #30 t abs 04/02/24 cyclobenzaprine 5 mg tablet 5 mg PO TID PRN muscle spa sm #14 04/07/24 tabs ibuprofen 600 mg tablet 600 mg PO Q6H PRN fever or p ain 04/07/24 #30 tabs ibuprofen 600 mg tablet 600 mg PO Q6H PRN pain #30 t abs 04/07/24 cyclobenzaprine 5 mg tablet 5 mg PO TID PRN muscle spa sm #30 04/11/24 tabs naproxen 500 mg tablet 500 mg PO BID PRN pain #30 t abs 04/11/24 ibuprofen 600 mg tablet 600 mg PO Q8H PRN pain #20 t abs 11/03/24 acetaminophen 500 mg capsule 500 mg PO Q6H PRN pain #3 0 caps 12/03/24 acetaminophen 500 mg capsule 500 mg PO Q6H PRN pain #3 0 caps 12/15/24 cyclobenzaprine 5 mg tablet 5 mg PO TID PRN muscle spa sm #15 12/20/24 tabs lidocaine 5 % topical patch 2 patch topical QDAY PRN p ain #30 12/20/24 (Lidoderm) ea naproxen 500 mg tablet 500 mg PO BID PRN pain #14 t abs 04/04/25 Allergies Allergy/AdvReac Type Severity Reaction Status Date / Time No Known Allergies Allergy Verified 06/10/25 18:15 Review of Systems Constitutional Constitutional: Reports system reviewed and no additional complaints, except as documented Eyes Eyes: Reports system reviewed and no additional complaints, except as documented, Denies dry eyes, Denies exophthalmos and Reports floaters Cardiovascular Cardiovascular: Denies chest pain with activity and Denies claudication ED Exam General Limitations: Present no limitations and physical limitation (Chronic lower extremity pain.) General appearance: Present alert and in no apparent distress Head Head exam: Present atraumatic Eye Eye exam: Present normal appearance and EOMI ENT ENT exam: Present normal exam, normal oropharynx and mucous membranes moist Neck Neck exam: Present normal inspection, full ROM and trachea midline Extremities Exam Extremities exam: Present normal inspection and full ROM Back Exam Back exam: Present normal inspection and full ROM Neurological Exam Neurological exam: Present alert and oriented X3 Psychiatric Psychiatric exam: Present normal affect and normal mood Skin Skin exam: Present warm, dry, intact and normal color Course Course Course Narrative: Patient will have ibuprofen 600 mg p.o., and he will be discharged in no apparent distress Quality Measures none Vital Signs Vital signs: Vital Signs Temperature 98.0 F 06/11/25 08:02 Pulse Rate 72 06/11/25 08:02 Respiratory Rate 18 06/11/25 08:02 Blood Pressure 129/82 06/11/25 08:02 Pulse Oximetry (%) 100 06/11/25 08:02 Oxygen Delivery Method Room Air 06/11/25 08:02 Pulse ox room air is 100%. Extremity Problem MDM Narrative MDM Narrative:: Patient will have ibuprofen 600 mg and then he will be discharged. Patient is to primary care physician within this week for follow-up to today's visit. Patient may return if he is worse or not better. Patient data External records reviewed:: Other (specify) Clinical information provided by:: none Social determinants that could affect healthcare access:: none Patient has the following chronic illnesses:: Chronic leg pain How is presenting disease/condition affected by chronic disease/condition?: exacerbated by (Ambulating) Evaluation data The following diagnostics were reviewed and interpreted by me:: other (specify) (No labs) Lab and/or radiology exams considered but not ordered:: NA Interpretation Summary: NA Medications / Prescriptions Medications or Prescriptions considered but not ordered:: NA Medication administrations:: NA Consultations Consultation(s) initiated? (list below): No Diagnosis Extremity Problem Differential Diagnosis: superficial thrombophlebitis, deep venous thrombosis of upper extremity and lower extremity edema Most likely diagnosis given after review of the tests above:: Not applicable Admission Indicated Admission indicated?: not indicated Admission Request Was there a request for admission?: No Disposition Plan Disposition Plan: Discharge Discharge Attestation Discharge Attestation: The patient and all family members were given an opportunity to ask questions and understood the discharge instructions. Discharge instructions specifically effects, indications for sooner follow up or return to the emergency department, and the expected course of current diagnosis. Patient condition: Stable Discharge Plan Plan Patient Disposition: HOME (Self Care) Discharge Disposition comment: Discharge no apparent distress Patient condition on transfer: Stable Prescriptions/Referrals Prescriptions/Med Rec: No Action naproxen 500 mg tablet 500 mg PO BID PRN (Reason: pain) Qty: 30 0RF cyclobenzaprine 5 mg tablet 5 mg PO TID PRN (Reason: muscle spasm) Qty: 30 0RF naproxen 500 mg tablet 500 mg PO BID PRN (Reason: pain) Qty: 30 0RF baclofen 10 mg tablet 10 mg PO BID PRN (Reason: muscle spasm) Qty: 30 0RF ibuprofen 800 mg tablet 800 mg PO TID PRN (Reason: pain) Qty: 30 0RF ibuprofen 800 mg tablet 800 mg PO TID PRN (Reason: pain) Qty: 30 0RF ibuprofen 600 mg tablet 600 mg PO Q6H PRN (Reason: pain) Qty: 30 0RF ibuprofen 600 mg tablet 600 mg PO Q8H PRN (Reason: pain) Qty: 20 0RF acetaminophen 500 mg capsule 500 mg PO Q6H PRN (Reason: pain) Qty: 30 0RF lidocaine [Lidoderm] 5 % adhesive patch,medicated 2 patch topical QDAY PRN (Reason: pain) Qty: 30 0RF Rx Instructions: leave on most painful area for up to 12 hrs cyclobenzaprine 5 mg tablet 5 mg PO TID PRN (Reason: muscle spasm) Qty: 15 0RF naproxen 500 mg tablet 500 mg PO BID PRN (Reason: pain) Qty: 14 0RF sulfamethoxazole-trimethoprim [Bactrim DS] 800-160 mg tablet 1 tab PO BID Qty: 14 0RF naproxen 500 mg tablet 500 mg PO BID PRN (Reason: pain) Qty: 30 0RF tamsulosin [Flomax] 0.4 mg capsule 0.4 mg PO QDAY Qty: 30 0RF ibuprofen 600 mg tablet 600 mg PO Q6H PRN (Reason: pain) Qty: 30 0RF methocarbamol 500 mg tablet 1,000 mg PO Q8H PRN (Reason: pain) Qty: 30 0RF naproxen [Naprosyn] 500 mg tablet 500 mg PO BID Qty: 14 0RF ibuprofen 600 mg tablet 600 mg PO Q6H PRN (Reason: fever or pain) Qty: 30 0RF cyclobenzaprine 5 mg tablet 5 mg PO TID PRN (Reason: muscle spasm) Qty: 14 0RF naproxen 500 mg tablet 500 mg PO BID PRN (Reason: pain) Qty: 30 0RF cyclobenzaprine 5 mg tablet 5 mg PO TID PRN (Reason: muscle spasm) Qty: 30 0RF acetaminophen 500 mg capsule 500 mg PO Q6H PRN (Reason: pain) Qty: 30 0RF Problem List Clinical Impression: Chronic leg pain Patient/Caregiver Discharge Instructions Discharge Activity: activity as tolerated Print Language: Persian Stand Alone Forms: Tami Award Info., Patient Portal Info Letter PA/CURRENCY EXCHANGE SPECIALIST Supervising Physician PA/CURRENCY EXCHANGE SPECIALIST Supervising Physician: Carlos
[2025-06-11] MEDS: IBUPROFEN TAB 600 MG TABLET PO (09:06)
--- NOTE | 2025-06-11 09:06 | PC.CC ---
Emilie PATRICK and KENTON Goodrich made face to face contact with the patient introduced self, role, and reason for visit. Patient reports he is not connected to a primary provider or mental health. KENTON Goodrich will be making an appointment with [facility] for primary medical appointment.
--- NOTE | 2025-06-11 09:14 | PC.CC ---
LIBRARY ATTENDANT Student made an appointment for patient with [facility]. Spoke to call director of research centerrep Siu at [facility] to schedule an ER follow up appointment. The appointment is scheduled for June 12, 2025 at 9:45am at the [facility] Location located at [address] in [place]. I have informed patient of his scheduled appointment and encouraged to attend this appointment.
--- NOTE | 2025-06-11 09:20 | PC.CC ---
CERTIFIED NURSE MIDWIFE student provided patient with a meal prior to discharge.
== END 2025-06-11 09:56 | disposition home or self-care (01) ==
LOC: SERX 08:51
PROVIDERS: Emergency Provider Emergency Medicine; PCP Family Medicine
DX: G89.29 Other chronic pain (principal); M79.604 Pain in right leg
CPT/HCPCS: 99282; A9270

== ENCOUNTER 2025-06-26 18:19 | Emergency (ER) | payer MEDICAID, SELFPAY ==
[2025-06-26 18:19] VITALS: PULSE 91; RESP 18; O2SAT 99
[2025-06-26 18:40] VITALS: BP 145/77; PULSE 95; RESP 20; TEMP 36.6; O2SAT 97; BMI 27.0
--- NOTE | 2025-06-26 19:18 | EDNOTE_ITS ---
ED Extremity Problem RME/HPI General Chief complaint: Extremity Problem,Nontraumatic Stated complaint: Leg pain Time Seen by Provider: 06/26/25 19:10 Arrival date/time: 06/26/25 18:19 RME / HPI RME / HPI Narrative: 45-year-old male patient came in for evaluation asking for blanket video patient used to come to this emergency room asking for pain medication due to chronic leg pain. However today patient told me that he just got out of penitentiary and back to the streets however he is asking for a blanket. He denies any chronic leg pain. Patient is ambulatory. Related Data Previous Rx's ?Medication ?Instructions ?Recorded sulfamethoxazole 800 1 tab PO BID #14 tabs mg-trimethoprim 160 mg tablet (Bactrim DS) cyclobenzaprine 5 mg tablet 5 mg PO TID PRN muscle spa sm #30 07/23/23 tabs naproxen 500 mg tablet 500 mg PO BID PRN pain #30 t abs 07/23/23 naproxen 500 mg tablet 500 mg PO BID PRN pain #30 t abs 08/08/23 tamsulosin 0.4 mg capsule (Flomax) 0.4 mg PO QDAY #30 caps 08/08/23 baclofen 10 mg tablet 10 mg PO BID PRN muscle spas m #30 08/14/23 tabs naproxen 500 mg tablet 500 mg PO BID PRN pain #30 t abs 08/14/23 ibuprofen 800 mg tablet 800 mg PO TID PRN pain #30 t abs 08/28/23 ibuprofen 600 mg tablet 600 mg PO Q6H PRN pain #30 t abs 01/27/24 methocarbamol 500 mg tablet 1,000 mg (2 x 500 mg) PO Q 8H PRN 01/27/24 pain #30 tabs naproxen 500 mg tablet (Naprosyn) 500 mg PO BID #14 ta bs 03/15/24 ibuprofen 800 mg tablet 800 mg PO TID PRN pain #30 t abs 04/02/24 cyclobenzaprine 5 mg tablet 5 mg PO TID PRN muscle spa sm #14 04/07/24 tabs ibuprofen 600 mg tablet 600 mg PO Q6H PRN fever or p ain 04/07/24 #30 tabs ibuprofen 600 mg tablet 600 mg PO Q6H PRN pain #30 t abs 04/07/24 cyclobenzaprine 5 mg tablet 5 mg PO TID PRN muscle spa sm #30 04/11/24 tabs naproxen 500 mg tablet 500 mg PO BID PRN pain #30 t abs 04/11/24 ibuprofen 600 mg tablet 600 mg PO Q8H PRN pain #20 t abs 11/03/24 acetaminophen 500 mg capsule 500 mg PO Q6H PRN pain #3 0 caps 12/03/24 acetaminophen 500 mg capsule 500 mg PO Q6H PRN pain #3 0 caps 12/15/24 cyclobenzaprine 5 mg tablet 5 mg PO TID PRN muscle spa sm #15 12/20/24 tabs lidocaine 5 % topical patch 2 patch topical QDAY PRN p ain #30 12/20/24 (Lidoderm) ea naproxen 500 mg tablet 500 mg PO BID PRN pain #14 t abs 04/04/25 Allergies Allergy/AdvReac Type Severity Reaction Status Date / Time No Known Allergies Allergy Verified 06/26/25 18:22 Review of Systems Review of Systems Narrative Review of Systems: Review of system reviewed and within normal limits except mentioned in HPI ED Exam Narrative Physical exam: VITAL SIGNS: Reviewed. GENERAL APPEARANCE: Alert and interactive, follows commands, no acute distress, HEAD AND FACE: Non-traumatic. ENT: PERRL, pink conjunctivitis, eyelid no trauma, Mucous membrane moist. NECK: Supple, nontender, no nuchal rigidity. CHEST: No tenderness, no crepitus, no paradoxical movement, no retractions. LUNGS: Clear, well ventilated, symmetric, no rales, no wheezing, no ronchi, no stridor, good breath sounds bilaterally. HEART: Regular rate, regular rhythm, no murmur, no gallops. ABDOMEN: Soft, positive bowel sounds, nondistended, no guarding, nontender, no rebound, no masses, RECTAL: Deferred. GENITAL: Deferred. NEUROLOGICAL: Gross motor function intact sensory function intact, Appropriate for age. MUSCULOSKELETAL: low back nontender, full range of motion. EXTREMITIES: Nontender, full range of motion. SKIN: Color pink, dry, no rash, no lacerations, no abrasions, no contusions. LYMPHATICS: Deferred. Course Quality Measures none Vital Signs Vital signs: Vital Signs Temperature 97.8 F 06/26/25 18:40 Pulse Rate 95 06/26/25 18:40 Respiratory Rate 20 06/26/25 18:40 Blood Pressure 145/77 H 06/26/25 18:40 Pulse Oximetry (%) 97 06/26/25 18:40 Oxygen Delivery Method Room Air 06/26/25 18:40 Extremity Problem MDM Narrative MDM Narrative:: 45-year-old male patient came in for evaluation asking for blanket video patient used to come to this emergency room asking for pain medication due to chronic leg pain. However today patient told me that he just got out of penitentiary and back to the streets however he is asking for a blanket. He denies any chronic leg pain. Patient is ambulatory. Patient eloped from the emergency room. Patient data External records reviewed:: None Clinical information provided by:: patient Social determinants that could affect healthcare access:: housing Patient has the following chronic illnesses:: Homelessness How is presenting disease/condition affected by chronic disease/condition?: exacerbated by Evaluation data The following diagnostics were reviewed and interpreted by me:: other (specify) Lab and/or radiology exams considered but not ordered:: None none Interpretation Summary: None Medications / Prescriptions Medications or Prescriptions considered but not ordered:: None Medication administrations:: None Consultations Consultation(s) initiated? (list below): No Diagnosis Extremity Problem Differential Diagnosis: other (Homelessness) Most likely diagnosis given after review of the tests above:: Homelessness Admission Indicated Admission indicated?: not indicated (Elopement) Admission Request Was there a request for admission?: No Disposition Plan Disposition Plan: other (specify) (Elopement) Discharge Plan Plan Patient Disposition: Elopement Prescriptions/Referrals Prescriptions/Med Rec: No Action naproxen 500 mg tablet 500 mg PO BID PRN (Reason: pain) Qty: 30 0RF cyclobenzaprine 5 mg tablet 5 mg PO TID PRN (Reason: muscle spasm) Qty: 30 0RF naproxen 500 mg tablet 500 mg PO BID PRN (Reason: pain) Qty: 30 0RF baclofen 10 mg tablet 10 mg PO BID PRN (Reason: muscle spasm) Qty: 30 0RF ibuprofen 800 mg tablet 800 mg PO TID PRN (Reason: pain) Qty: 30 0RF ibuprofen 800 mg tablet 800 mg PO TID PRN (Reason: pain) Qty: 30 0RF ibuprofen 600 mg tablet 600 mg PO Q6H PRN (Reason: pain) Qty: 30 0RF ibuprofen 600 mg tablet 600 mg PO Q8H PRN (Reason: pain) Qty: 20 0RF acetaminophen 500 mg capsule 500 mg PO Q6H PRN (Reason: pain) Qty: 30 0RF lidocaine [Lidoderm] 5 % adhesive patch,medicated 2 patch topical QDAY PRN (Reason: pain) Qty: 30 0RF Rx Instructions: leave on most painful area for up to 12 hrs cyclobenzaprine 5 mg tablet 5 mg PO TID PRN (Reason: muscle spasm) Qty: 15 0RF naproxen 500 mg tablet 500 mg PO BID PRN (Reason: pain) Qty: 14 0RF sulfamethoxazole-trimethoprim [Bactrim DS] 800-160 mg tablet 1 tab PO BID Qty: 14 0RF naproxen 500 mg tablet 500 mg PO BID PRN (Reason: pain) Qty: 30 0RF tamsulosin [Flomax] 0.4 mg capsule 0.4 mg PO QDAY Qty: 30 0RF ibuprofen 600 mg tablet 600 mg PO Q6H PRN (Reason: pain) Qty: 30 0RF methocarbamol 500 mg tablet 1,000 mg PO Q8H PRN (Reason: pain) Qty: 30 0RF naproxen [Naprosyn] 500 mg tablet 500 mg PO BID Qty: 14 0RF ibuprofen 600 mg tablet 600 mg PO Q6H PRN (Reason: fever or pain) Qty: 30 0RF cyclobenzaprine 5 mg tablet 5 mg PO TID PRN (Reason: muscle spasm) Qty: 14 0RF naproxen 500 mg tablet 500 mg PO BID PRN (Reason: pain) Qty: 30 0RF cyclobenzaprine 5 mg tablet 5 mg PO TID PRN (Reason: muscle spasm) Qty: 30 0RF acetaminophen 500 mg capsule 500 mg PO Q6H PRN (Reason: pain) Qty: 30 0RF Referrals: Cody Monte MD ([place]) [Primary Care Provider] - In 1 week Problem List Clinical Impression: Homelessness Patient/Caregiver Discharge Instructions Print Language: Angolan
--- NOTE | 2025-06-26 19:22 | PC.NURSE ---
PT LEFT ER AFTER TALKING TO PROVIDER.
== END 2025-06-26 19:23 | disposition left against medical advice (07) ==
PROVIDERS: Emergency Provider Emergency Medicine; PCP Family Medicine
DX: M79.606 Pain in leg, unspecified (principal); G89.29 Other chronic pain; Z59.00 Homelessness unspecified; Z53.29 Procedure and treatment not carried out because of patient's decision for other reasons
CPT/HCPCS: 99282

== ENCOUNTER 2025-06-26 20:23 | Emergency (ER) | payer MEDICAID, SELFPAY ==
[2025-06-26 20:23] VITALS: PULSE 86; RESP 18; O2SAT 98
--- NOTE | 2025-06-26 21:36 | PC.NURSE ---
PATIENT ELOPED THE ER PER SECURITY WAS SEEN WALKING DOWN THE STREET.
== END 2025-06-26 21:38 | disposition left against medical advice (07) ==
PROVIDERS: Emergency Provider Emergency Medicine; PCP Family Medicine
DX: Z53.21 Procedure and treatment not carried out due to patient leaving prior to being seen by health care provider (principal)
CPT/HCPCS: 99282

== ENCOUNTER 2025-06-26 22:45 | Emergency (ER) | payer MEDICAID, SELFPAY ==
[2025-06-26 23:06] VITALS: BP 127/85; PULSE 84; RESP 16; TEMP 36.7; O2SAT 98
--- NOTE | 2025-06-26 23:49 | XR_ITS ---
Examination: AP chest single view Technique one AP portable semiupright chest single view Date and time: June 27, 2025, 0059 hours Comparison March 21, 2020 INDICATIONS: Chest pain shortness of breath today. FINDINGS: Normal heart size. Lungs are clear. The osseous structures are intact IMPRESSION: No active disease.
--- NOTE | 2025-06-26 23:49 | XR_ITS ---
Examination: CT brain head without contrast. 2-D sagittal coronal reconstructions Date and time of exam:June 27, 2025 0118 hours INDICATIONS: Onset altered mental status today CTDI: vol (mGy):51.1 DLP: (mGycm):1020 Technique: Multiple CT axial sections of the brain have been obtained, 5 mm slice thickness. Contrast has not been administered. 2-D sagittal, coronal reconstructions have been obtained Low dose protocols were performed. One or more of the following dose reduction techniques were used; automated exposure control, adjustment of the mA and/or KV according to patient size, use of iterative reconstruction technique. Findings: Mild ventricular enlargement. Intra-axial or extra-axial hemorrhage density is not seen. No mass effect or midline shift Basal cisterns are not remarkable. Fourth ventricle is midline. Cranial vault intact. Chronic maxillary sinusitis Impression: Negative for acute hemorrhage, mass effect or midline shift
--- NOTE | 2025-06-26 23:49 | XR_ITS ---
Examination: CT right foot, without contrast. 2-D sagittal reconstructions. 2-D coronal reconstructions. 3-D reconstructions. Date and time of exam:June 27, 2025 0123 hours INDICATIONS: Nonhealing ulcer right foot this week CTDI: vol (mGy):3.40 DLP: (mGycm):116 Technique: Multiple 1.25 mm axial sections of the 60 cc Isovue 370 have been obtained. 2-D sagittal and coronal reconstructions have been obtained. 3-D reconstructions have been obtained. Low dose protocols were performed. One or more of the following dose reduction techniques were used; automated exposure control, adjustment of the mA and/or KV according to patient size, use of iterative reconstruction technique. Findings: Distal tibia and distal fibula show no cortical bone destruction Talus and cuboid calcaneus navicular and cuneiforms intact Metatarsals digits demonstrate no cortical bone destruction No soft tissue abscess IMPRESSION: No jessica cortical bone destruction As clinically warranted, MRI foot without contrast follow up would be preferable in assessing for early osteomyelitis
--- NOTE | 2025-06-26 23:50 | XR_ITS ---
Examination: CT chest, without intravenous contrast. CT abdomen, without intravenous contrast. CT pelvis, without intravenous contrast. 2-D sagittal and coronal reconstructions. 3-D reconstructions. Date and time of exam:June 27, 2025 0118 hours INDICATIONS: Chest pain and shortness of breath abdominal pain today CTDI vol (mgy) 10.41 DLP (MGycm)804 Technique: Multiple CT images, 3.0 mm slice thickness, obtained chest, abdomen, pelvis, with the high-resolution 64 slice scanner.. Sagittal and coronal 2-D reconstructions are obtained. 3-D reconstructions Low dose protocols were performed. One or more of the following dose reduction techniques were used; automated exposure control, adjustment of the mA and/or KV according to patient size, use of iterative reconstruction technique. Findings: No thoracic aortic aneurysm dilatation No significant enlargement pulmonary artery segments No paratracheal tracheobronchial or bronchopulmonary adenopathy. No pneumonia or pulmonary edema or pleural disease No visualized liver splenic lesion No gallstones Negative for pancreatitis No renal or ureteral calculi, no hydronephrosis Aorta normal size Normal appendix No bowel obstruction Colonic diverticulosis, no diverticulitis Abundant stool in the rectum Normal seminal vesicles No significant prostatomegaly Contracted urinary bladder Chronic compressions at T11-T12 IMPRESSION: No pneumonia or pulmonary edema or pleural disease No acute processes in the abdomen or pelvis Abundant stool in the rectum
--- NOTE | 2025-06-26 23:51 | EDNOTE_ITS ---
ED Extremity Problem RME/HPI General Chief complaint: General Adult/Misc Complain Stated complaint: SAMI LEG PAIN Arrival date/time: 06/26/25 22:45 RME / HPI RME / HPI Narrative: This section includes all my notes and documentations, including HPI, PE, and ED course. Stephen Gallardo MD HPI: 45 y/o male with Hx of CVA and Methamphetamine Abuse here with multiple concerns. He reports leg pain, localizes to the bottom of his right foot. Has trouble pinpointing the onset, possibly days and weeks and months. He also requests help because he can't take care of himself. Has been homeless for about 6 years after being . No thoughts of hurting himself or others. No hallucinations. No other complaints. ROS: All negative except as documented in HPI. Physical Exam: General: Alert and oriented X 2 (inaccurate dates). Possibly disconnected from reality. Visits ER multiple times daily. Equivocal delusions and disorganized thinking. Flat affect noted. Eyes: Conjunctivae and lids clear. EOMI. PERRL. ENT: No nasal congestion. Neck: Supple. Heart: RRR. Lungs: No respiratory distress. Good air movement. No severe rhonchi, wheezing, rales. Abdomen: Soft and nontender. Normal bowel sounds. No distension. No rebound or guarding. Legs: No clubbing, cyanosis, edema. Skin: Warm and dry. Neuro: Alert and oriented X 3. Cranial Nerves II-XII grossly intact. No peripheral motor deficits. Musculoskeletal: All major bones and joints are nontender with no limited range of motion. Right Foot: In the distal half of the plantar surface, there is a walnut sized equivocal ulcer with tenderness. I reviewed all diagnostic test results: My interpretation of the EKG: NSR (74 bpm) with no ST-T changes. My interpretation of the chest x-ray is: NAD. My interpretation of the right foot x-rays is no acute fracture. My review of the Head/Brain CT report is: NAD. My review of the Chest/Abdomen/Pelvis CT report is: NAD. My review of the Foot CT report is: NAD. Blood tests and urine tests unremarkable. Covid/Influenza: Negative. At this point, diagnoses include: Gravely disabled Right foot pain Treatment here included: IVF. Entered order for evaluation by our ED primary health care nurse. Patient is medically clear for further psychiatric care. At 6 AM on 06/27/2025, the care of the patient was transferred to Dr. RSOENTHAL. Stephen Gallardo MD Related Data Previous Rx's ?Medication ?Instructions ?Recorded sulfamethoxazole 800 1 tab PO BID #14 tabs mg-trimethoprim 160 mg tablet (Bactrim DS) cyclobenzaprine 5 mg tablet 5 mg PO TID PRN muscle spa sm #30 07/23/23 tabs naproxen 500 mg tablet 500 mg PO BID PRN pain #30 t abs 07/23/23 naproxen 500 mg tablet 500 mg PO BID PRN pain #30 t abs 08/08/23 tamsulosin 0.4 mg capsule (Flomax) 0.4 mg PO QDAY #30 caps 08/08/23 baclofen 10 mg tablet 10 mg PO BID PRN muscle spas m #30 08/14/23 tabs naproxen 500 mg tablet 500 mg PO BID PRN pain #30 t abs 08/14/23 ibuprofen 800 mg tablet 800 mg PO TID PRN pain #30 t abs 08/28/23 ibuprofen 600 mg tablet 600 mg PO Q6H PRN pain #30 t abs 01/27/24 methocarbamol 500 mg tablet 1,000 mg (2 x 500 mg) PO Q 8H PRN 01/27/24 pain #30 tabs naproxen 500 mg tablet (Naprosyn) 500 mg PO BID #14 ta bs 03/15/24 ibuprofen 800 mg tablet 800 mg PO TID PRN pain #30 t abs 04/02/24 cyclobenzaprine 5 mg tablet 5 mg PO TID PRN muscle spa sm #14 04/07/24 tabs ibuprofen 600 mg tablet 600 mg PO Q6H PRN fever or p ain 04/07/24 #30 tabs ibuprofen 600 mg tablet 600 mg PO Q6H PRN pain #30 t abs 04/07/24 cyclobenzaprine 5 mg tablet 5 mg PO TID PRN muscle spa sm #30 04/11/24 tabs naproxen 500 mg tablet 500 mg PO BID PRN pain #30 t abs 04/11/24 ibuprofen 600 mg tablet 600 mg PO Q8H PRN pain #20 t abs 11/03/24 acetaminophen 500 mg capsule 500 mg PO Q6H PRN pain #3 0 caps 12/03/24 acetaminophen 500 mg capsule 500 mg PO Q6H PRN pain #3 0 caps 12/15/24 cyclobenzaprine 5 mg tablet 5 mg PO TID PRN muscle spa sm #15 12/20/24 tabs lidocaine 5 % topical patch 2 patch topical QDAY PRN p ain #30 12/20/24 (Lidoderm) ea naproxen 500 mg tablet 500 mg PO BID PRN pain #14 t abs 04/04/25 Allergies Allergy/AdvReac Type Severity Reaction Status Date / Time No Known Allergies Allergy Verified 06/26/25 18:22 Review of Systems Review of Systems Systems Reviewed: All systems reviewed, normal except as documented Past Medical History Past Medical History NEUROLOGIC: Positive Cerebrovascular Accident CARDIAC: Positive Myocardial Infarction and Hypercholesterolemia Social History SUBSTANCE USE: methamphetamine ED Exam Narrative Physical exam: Refer to HPI Course Quality Measures none Orders Category Date Time Status Bedside COVID-19 Antigen Test NOW Care 06/26/25 23:47 Active Bedside Influenza A&B Antigen Test NOW Care 06/26/25 23:[address] Screening NOW Care 06/26/25 23:50 Active EKG (ED ONLY) *Do not use* NOW Care 06/26/25 23:49 Completed Saline [Insert IV] NOW Care 06/26/25 23:47 Active Straight [In and Out Catheter] X1 Care 06/26/25 23:47 Active Referral Psych Eval Stat Cons 06/27/25 01:[address] chest abdomen pelvis wo Stat Exams 06/26/25 23:[address] foot RT w con Stat Exams 06/26/25 23:[address] head/brain wo con Stat Exams 06/26/25 23:49 Taken EKG (ED Only) Stat Exams 06/26/25 23:49 Ordered XR chest 1V portable Stat Exams 06/26/25 23:49 Taken XR foot comp LT min 3V Stat Exams 06/27/25 01:10 Taken Acetaminophen Stat Lab 06/26/25 23:51 Completed Alcohol, Blood Medical Stat Lab 06/26/25 23:51 Completed Beta Hydroxybutyrate Stat Lab 06/26/25 23:51 Completed Bilirubin,Direct Stat Lab 06/26/25 23:51 Completed Blood Culture (Lab) Stat Lab 06/26/25 23:51 Received CBC Stat Lab 06/26/25 23:51 Completed CK [Creatine Kinase] Stat Lab 06/26/25 23:51 Completed CMP [Comprehensive Metabolic Panel] Stat Lab 06/26/25 23:51 Completed CRP [C-Reactive Protein] Stat Lab 06/26/25 23:51 Completed D-Dimer Stat Lab 06/26/25 23:51 Completed Drug Screen,Urine Stat Lab 06/27/25 01:10 Completed ESR [Sed Rate (ESR)] Stat Lab 06/26/25 23:51 Completed HIV (1&2) Antibody Rapid Stat Lab 06/27/25 00:06 Completed Lactate (Lactic Acid) Stat Lab 06/26/25 23:52 Completed Lipase Stat Lab 06/26/25 23:51 Completed Magnesium Stat Lab 06/26/25 23:51 Completed PT [Prothrombin Time with INR] Stat Lab 06/26/25 23:52 Completed PTT [Partial Thromboplastin Time] Stat Lab 06/26/25 23:52 Completed Procalcitonin Stat Lab 06/26/25 23:51 Completed Salicylate Stat Lab 06/26/25 23:51 Completed TSH [Thyroid Stimulating Hormone] Stat Lab 06/26/25 23:51 Completed Troponin I Stat Lab 06/26/25 23:51 Completed UA, C/S IF [Urinalysis, C/S if Indicated] Stat Lab 06/27/25 01:10 Completed Sodium Chloride 0.9% 1000 ml [Ns] 1,000 ml Med 06/26/25 23:47 Discontinued IV 999 mls/hr Vital Signs Vital signs: Vital Signs Temperature 98.0 F 06/26/25 23:06 Pulse Rate 84 06/26/25 23:06 Respiratory Rate 16 06/26/25 23:06 Blood Pressure 127/85 H 06/26/25 23:06 Pulse Oximetry (%) 98 06/26/25 23:06 Oxygen Delivery Method Room Air 06/26/25 23:06 Extremity Problem MDM Narrative MDM Narrative:: Scribe Attestation: Zelda Martins, am scribing for and in the presence of Dr. Gallardo. Provider Notation: Although this document has been carefully reviewed, there may still be some phonetic and other typographical errors. These errors are purely grammatical due to imperfections in the software program and should not be construed in any way to compromise the substance of the patient's medical care during this visit. 45 y/o male with Hx of CVA and Methamphetamine Abuse here with multiple concerns. He reports leg pain, localizes to the bottom of his right foot. Has trouble pinpointing the onset, possibly days and weeks and months. He also requests help because he can't take care of himself. Has been homeless for about 6 years after being . No thoughts of hurting himself or others. No hallucinations. No other complaints. Patient data External records reviewed:: [facility] previous records (Reviewed prior ED records from 06/11/25. Patient was seen for Chronic leg pain.) Clinical information provided by:: patient Social determinants that could affect healthcare access:: substance use (Metha mphetamine) Patient has the following chronic illnesses:: Hypercholesterolemia, Recreational Drug Use How is presenting disease/condition affected by chronic disease/condition?: uneffected by Evaluation data The following diagnostics were reviewed and interpreted by me:: lab results, radiology exam(s) and EKG tracing(s) (My interpretation of the EKG: NSR (74 bpm) with no ST-T changes. Stephen Gallardo MD) Lab and/or radiology exams considered but not ordered:: None Interpretation Summary: I reviewed all diagnostic test results: My interpretation of the EKG: NSR (74 bpm) with no ST-T changes. My interpretation of the chest x-ray is: NAD. My interpretation of the right foot x-rays is no acute fracture. My review of the Head/Brain CT report is: NAD. My review of the Chest/Abdomen/Pelvis CT report is: NAD. My review of the Foot CT report is: NAD. Blood tests and urine tests unremarkable. Covid/Influenza: Negative. Medications / Prescriptions Medications or Prescriptions considered but not ordered:: None Medication administrations:: Medication Administration History Discontinued Medications Sodium Chloride (Ns) 1,000 mls @ 999 mls/hr IV .Q1H1M ONE Stop: 06/27/25 00:47 Last Infusion: 06/27/25 01:18 Dose: Infused Documented By: Admin: 06/27/25 00:06 Dose: 999 mls/hr Documented By: [email or web address] IVF Consultations Consultation(s) initiated? (list below): No Diagnosis Extremity Problem Differential Diagnosis: gout, cellulitis, superficial thrombophlebitis, lower extremity edema and other (Abscess, osteomyelitis, sepsis, psychosis, francoise, gravely disabled) Most likely diagnosis given after review of the tests above:: Right foot pain, Gravely disabled. Admission Indicated Admission indicated?: not indicated Explain why admission is indicated or not indicated:: Pending evaluation by our ED primary health care nurse. Admission Request Was there a request for admission?: No Disposition Plan Disposition Plan: other (specify) (Patient signed out to oncoming ED physician at 6 AM.) Discharge Plan Prescriptions/Referrals Prescriptions/Med Rec: No Action naproxen 500 mg tablet 500 mg PO BID PRN (Reason: pain) Qty: 30 0RF cyclobenzaprine 5 mg tablet 5 mg PO TID PRN (Reason: muscle spasm) Qty: 30 0RF naproxen 500 mg tablet 500 mg PO BID PRN (Reason: pain) Qty: 30 0RF baclofen 10 mg tablet 10 mg PO BID PRN (Reason: muscle spasm) Qty: 30 0RF ibuprofen 800 mg tablet 800 mg PO TID PRN (Reason: pain) Qty: 30 0RF ibuprofen 800 mg tablet 800 mg PO TID PRN (Reason: pain) Qty: 30 0RF ibuprofen 600 mg tablet 600 mg PO Q6H PRN (Reason: pain) Qty: 30 0RF ibuprofen 600 mg tablet 600 mg PO Q8H PRN (Reason: pain) Qty: 20 0RF acetaminophen 500 mg capsule 500 mg PO Q6H PRN (Reason: pain) Qty: 30 0RF lidocaine [Lidoderm] 5 % adhesive patch,medicated 2 patch topical QDAY PRN (Reason: pain) Qty: 30 0RF Rx Instructions: leave on most painful area for up to 12 hrs cyclobenzaprine 5 mg tablet 5 mg PO TID PRN (Reason: muscle spasm) Qty: 15 0RF naproxen 500 mg tablet 500 mg PO BID PRN (Reason: pain) Qty: 14 0RF sulfamethoxazole-trimethoprim [Bactrim DS] 800-160 mg tablet 1 tab PO BID Qty: 14 0RF naproxen 500 mg tablet 500 mg PO BID PRN (Reason: pain) Qty: 30 0RF tamsulosin [Flomax] 0.4 mg capsule 0.4 mg PO QDAY Qty: 30 0RF ibuprofen 600 mg tablet 600 mg PO Q6H PRN (Reason: pain) Qty: 30 0RF methocarbamol 500 mg tablet 1,000 mg PO Q8H PRN (Reason: pain) Qty: 30 0RF naproxen [Naprosyn] 500 mg tablet 500 mg PO BID Qty: 14 0RF ibuprofen 600 mg tablet 600 mg PO Q6H PRN (Reason: fever or pain) Qty: 30 0RF cyclobenzaprine 5 mg tablet 5 mg PO TID PRN (Reason: muscle spasm) Qty: 14 0RF naproxen 500 mg tablet 500 mg PO BID PRN (Reason: pain) Qty: 30 0RF cyclobenzaprine 5 mg tablet 5 mg PO TID PRN (Reason: muscle spasm) Qty: 30 0RF acetaminophen 500 mg capsule 500 mg PO Q6H PRN (Reason: pain) Qty: 30 0RF Referrals: No Primary/Family,Physician [Primary Care Provider] - In 1 week Problem List Clinical Impression: Right foot pain, Gravely disabled Patient/Caregiver Discharge Instructions Discharge Activity: activity as tolerated Education Materials: ED Back Pain (Acute or Chronic), ED Chest Pain, Uncertain Cause, ED Abdominal Pain Unknown Cause ... Additional Instructions: Discharge instructions from Dr. Gallardo: 1. After extensive evaluation (we performed almost every test in the ER), there is no life-threatening condition.? Such as heart attack or pulmonary embolism (blood clots in your lungs) or pneumothorax (collapsed lung). And there is no serious infection. Such as pneumonia or UTI or sepsis. 2. Your pain can be originating from the outside and not from an internal organ.? The chest and back and abdominal wall albarado have many bones in joints a nd muscles, so sprains and strains are common.?? 3. Apply ice or heat if helpful.? Tylenol/ibuprofen as needed. 4. See a private doctor on 06/30/2025 for recheck and further care. Ask to review all test results and official radiology reports, to make sure you receive all necessary follow-ups and monitoring. If not better, ask for help with more investigation and tests, such as referrals to see specialists. 5. Seek immediate medical care with worsening or with any concerns.?? Print Language: Macedonian
[2025-06-27] VITALS (54 sets, daily range): BP systolic 80–129; BP diastolic 49–96; PULSE 61–76; RESP 14–17; TEMP 36.6–36.8; O2SAT 92–100
[2025-06-27] MEDS: SODIUM CHLORIDE 0.9% 1000 ML 1,000 ML 999 ML IV (00:06)
[2025-06-27 00:24] LABS: Lactate (Lactic Acid) 0.9 mMol/L (0.4-2.0)
[2025-06-27 00:29] LABS: Basophils # (Auto) 0.1 Thou/mm3 (0.0-0.2); Basophils % (Auto) 1 % (0-2.5); Eosinophils # (Auto) 0.1 Thou/mm3 (0.0-0.5); Eosinophils % (Auto) 2 % (0-10); Hematocrit 44.9 % (41.0-53.0); Hemoglobin 14.6 g/dL (13.5-16.0); Immature Granulocytes Auto 0.01 Thou/mm3 (0.00-0.00); Lymphocytes # (Auto) 1.4 Thou/mm3 (1.0-4.8); Lymphocytes % (Auto) 22 % (10-50); Mean Corpuscular HGB Conc 32.5 g/dl (31.0-37.0); Mean Corpuscular Hemoglobin 30.4 pg (25.0-35.0); Mean Corpuscular Volume 94 fL (80-100); Monocytes # (Auto) 0.5 Thou/mm3 (0.0-0.8); Monocytes % (Auto) 8 % (0-12); Neutrophils # (Auto) 4.1 Thou/mm3 (1.8-7.7); Neutrophils % (Auto) 67 % (37-80); Nucleated Red Blood Cell # 0.00 Thou/mm3 (0.00-0.00); Nucleated Red Blood Cell % 0 /100 WBC (0); Platelet Count 279 Thou/mm3 (140-440); RDW Standard Deviation 43.8 fL (35.1-43.9); Red Blood Count 4.80 Miln/mm3 (4.50-5.90); White Blood Count 6.2 Thou/mm3 (3.8-10.6)
[2025-06-27 00:30] LABS: Beta Hydroxybutyrate 0.2 mmol/L (<0.6)
[2025-06-27 00:38] LABS: Sed Rate (ESR) 56 mm/hr (0-15)
[2025-06-27 00:43] LABS: INR 1.0 (0.9-1.3); Partial Thromboplastin Time 24.9 Seconds (22.0-36.0); Prothrombin Time 11.0 Seconds (9.0-12.2)
[2025-06-27 00:59] LABS: Acetaminophen < 2.0 mcg/mL (10.0-20.0); Alanine Aminotransferase 14 U/L (10-49); Albumin, Serum 4.7 gm/dL (3.5-5.0); Albumin/Globulin Ratio 1.5 (1.2-2.2); Alcohol, Blood Medical < 3.0 mg/dL (0-10.0); Alkaline Phosphatase 99 U/L (46-116); Anion Gap 8 (7-16); Aspartate Amino Transferase 15 U/L (0-34); BUN/Creatinine Ratio 27 Ratio (12-20); Bilirubin,Direct 0.2 mg/dL (0.0-0.3); Bilirubin,Total 0.5 mg/dL (0.3-1.2); Blood Urea Nitrogen 30 mg/dL (9-23); C-Reactive Protein < 0.5 mg/dL (0.0-0.9); Calcium 9.5 mg/dL (8.3-10.6); Calcium (Corrected) 9.5 mg/dL (8.5-10.1); Carbon Dioxide 26.7 mMol/L (20.0-31.0); Chloride 107 mMol/L (98-107); Creatine Kinase 86 U/L (34-171); Creatinine (Component) 1.1 mg/dL (0.6-1.3); D-Dimer < 250 ng/mL (<600); Globulin 3.1 gm/dL (2.3-3.5); Glucose 88 mg/dL (74-106); Lipase 41 U/L (12-53); Magnesium 2.2 mg/dL (1.6-2.6); Osmolality,Calculated 288 (275-295); Potassium 4.1 mMol/L (3.4-5.1); Procalcitonin 0.06 ng/ml (0.0-0.49); Salicylate < 3.0 mg/dL; Sodium 142 mMol/L (136-145); Thyroid Stimulating Hormone 1.49 uIU/mL (0.55-4.78); Total Protein 7.8 gm/dL (5.7-8.2); Troponin I < 0.002 ng/mL (0.0-0.045); eGFR > 60 See Note
[2025-06-27 01:03] LABS: HIV (1&2) Antibody Rapid Non-Reactive
--- NOTE | 2025-06-27 01:10 | XR_ITS ---
Examination: Foot, left, 3 views Technique: AP, oblique, lateral views foot, 3 views Date and time of exam: July 07, 2025 0252 hours INDICATIONS: Left foot pain today FINDINGS: Mild osteopenia. No fracture. No cortical bone destruction No foreign body IMPRESSION: No fracture
[2025-06-27 01:14] LABS: Collection Type, Urine Clean Catch; Squamous Epithelial Cell,Urine 0 /hpf (0-5)
[2025-06-27 01:21] LABS: Bilirubin,Urine Negative (Negative); Blood,Urine Negative (Negative); Clarity,Urine Clear (Clear/Hazy); Color,Urine Lt-Yellow (Lt Yel-Yel); Culture Indicated,Urine Not Indicated; Glucose, Urine Negative (Negative); Ketones,Urine Negative (Negative); Leukocyte Esterase,Urine Negative (Negative); Nitrite,Urine Negative (Negative); PH,Urine 6.5 (5.0-7.0); Protein,Urine Negative (Neg - Trace); RBC,Urine < 1 /hpf (0-3); Specific Gravity,Urine 1.024 (1.001-1.035); Urobilinogen,Urine Negative mg/dL (0.0-1.0); WBC,Urine < 1 /hpf (0-5)
[2025-06-27 01:29] LABS: Amphetamine/Methamp Scrn,U Negative (Negative); Barbiturate Screen,Urine Negative (Negative); Benzodiazepines Screen,Urine Negative (Negative); Benzoylecgonine Screen, Ur Negative (Negative); Fentanyl Screen,Urine Negative (Negative); Opiate Screen,Urine Negative (Negative); THC Screen,Urine Negative (Negative)
--- NOTE | 2025-06-27 02:31 | PRELIM_ITS ---
CT scan of the head without intravenous contrast (axial sections with sagittal and coronal reformats). June 27, 2025 0118 hours Clinical History: AMS Comparison: No prior study is available for comparison. Findings: No evidence of intracranial hemorrhage, mass effect or midline shift. There are mild periventricular white matter hypodensities, suggestive of chronic small vessel ischemia. There is mild volume loss. A prominent cisterna magna is incidentally noted. The calvarium is unremarkable. There is mild mucosal thickening in bilateral maxillary sinuses. There is mild mucosal thickening in bilateral ethmoid sinuses. There is mild polypoidal mucosal thickening in bilateral maxillary sinuses. There is partial opacification of left mastoid air cells. The right mastoid air cells are clear. Impression: No evidence of intracranial hemorrhage, mass effect or midline shift. Other findings as described above. Report Electronically Signed By: Larry Subramanian 06/27/2025 2:30:51 AM [EST]
--- NOTE | 2025-06-27 03:09 | PRELIM_ITS ---
CT scan of the right foot with intravenous contrast. Axial sections with sagittal and coronal reformats were obtained June 27, 2025 0127 hours Clinical History: ulcer/erythema/calor/tenderness Comparison: No prior study is available for comparison. Findings: There is no acute fracture or dislocation. The alignment is maintained. The ankle mortise is intact. The retrocalcaneal region is unremarkable. The other visualized bones are unremarkable. The sinus tarsi is within normal limits. The visualized muscles and tendons are grossly unremarkable. There is no discrete rim enhancing fluid collection. There is mild soft tissue edema in the planter aspect of the foot. Impression: No evidence of drainable collection or osteomyelitis. Report Electronically Signed By: Larry Subramanian 06/27/2025 3:09:15 AM [EST]
--- NOTE | 2025-06-27 03:09 | PRELIM_ITS ---
CT scan of the chest, abdomen and pelvis without intravenous contrast (axial sections with sagittal and coronal reformats) June 27, 2025 0119 hours Clinical History: shortness of breath and abdominal pain Comparison: No prior study is available for comparison. Findings: The lungs are clear. There is no pleural effusion or pneumothorax. The aorta is unremarkable on this noncontrast study. No evidence of mediastinal mass or lymphadenopathy. There is no pericardial effusion. There is mild thickening of bilateral adrenals. A small hiatal hernia is present. The liver, gallbladder, spleen, pancreas and kidneys are unremarkable on this noncontrast study. No evidence of bowel obstruction. There are occasional colonic diverticula without evidence of diverticulitis A moderate amount of fecal material is present in the colon. The appendix is not visualized. The urinary bladder is incompletely distended. The prostate is unremarkable. There is no free fluid or free air. The abdominal aorta demonstrates mild atheromatous calcification without evidence of aneurysm. There are small fat-containing bilateral inguinal hernias. There are chronic compression deformities at the superior end plates of T11 and T12, likely non acute. Impression: No evidence of acute intrathoracic, intraabdominal or pelvic pathology on this noncontrast study. Moderate constipation. Other findings as described above. Report Electronically Signed By: Larry Subramanian 06/27/2025 3:09:11 AM [EST]
--- NOTE | 2025-06-27 11:56 | EDNOTE_ITS ---
Emergency Room Addendum Addendum Narrative: 0600: Care assumed from Dr. Gallardo, the previous shift emergency physician. Past medical, surgical, social and family history reviewed. Vitals and home medications reviewed. I will assume the care of the patient at this time, pending social work coordinator consult for possible placement. Please refer to the emergency department record for history and examination from initial visit.? The patient was placed in ED observation care at 06/27/2025 at 0600 hours. The patient was placed in ED observation care pending social work coordinator consult for possible placement. The patients past medical history, social history, and family history were reviewed. The plan of care will include serial examinations. While in ED observation the patient will have access to water, food, and personal hygiene. If the patient takes home medication(s), they will be contin ued in ED observation. Physical exam by me shows patient under no acute distress at this time. 1302: visitor services specialist told us the patient has been accepted to [facility] for Substance Abuse Treatment. 1317: Patient discharged to [facility] for Substance Abuse Treatment. ED observation care ended at 06/27/2025 at 1317 hours. Diagnoses: -Right foot pain -Gravely disabled
--- NOTE | 2025-06-27 13:09 | PC.CC ---
Patient is a 45 year-old male who presents to the hospital abdominal pain. Dr. Gallardo requested a psych evaluation for concerns of gravely disable. ASWEmilie met with patient face to face introduced self, role, and reason for visit to patient. Patient appears to be alert and oriented to self, location, and situation. ASW explained limits of confidentiality to the patient. Patient made appropriate eye contact and presents as calm and euthymic throughout assessment. Patient presented with good insight and linear thought process. Patient reports he has been homeless for 6 years. Patient requested substance abuse treatment help. Per patient, his drug of choice is ?meth.? Patient reports he was released from incarceration yesterday and has been sober for approximately two weeks. Patient requested this PRODUCE CLERK make contact with [facility] for services. Patient reports he has not mental health history. At the time of encounter patient denied suicidal and homicidal ideations, visual and auditory hallucinations. Patient denied past suicide attempts and reports he has never been placed on a 5150-hold. Patient reports he is able to ambulate independently and complete his own ADLs. Per patient his source of income is food stamps and receives [employer]. Patient reports he has no family that is local. PRODUCE CLERK made contact with [facility] who reports patient is not connected to them. Upon clinical consultation with [facility], Flor Garcia patient does not meet criteria for 5150-hold for gravely disabled. PRODUCE CLERK, made telephone contact with [facility] Admin. Nic ? who reports they have no open beds. [facility] made telephone contact Zully Freight Associate for [facility]/Psychiatric. She assisted in getting a patient a bed at [facility] for Substance Abuse Treatment. PRODUCE CLERK presented the information to the patient and patient reports he is willing to go to receive treatment. PRODUCE CLERK provided update of discharge plan to [facility] to medical team. PRODUCE CLERK, to arrange transportation for patient to [facility] upon discharge
--- NOTE | 2025-06-27 13:24 | PC.CC ---
AUTOMATIC OVEN OPERATOR, arranged transportation to [facility] for patient via [employer]. Patient was provided with clean clothing and a meal.
== END 2025-06-27 13:40 | disposition home or self-care (01) ==
PROVIDERS: Emergency Provider Emergency Medicine
DX: M79.671 Pain in right foot (principal); L97.519 Non-pressure chronic ulcer of other part of right foot with unspecified severity; R41.82 Altered mental status, unspecified; R07.9 Chest pain, unspecified; R06.02 Shortness of breath; R10.9 Unspecified abdominal pain; M79.672 Pain in left foot
CPT/HCPCS: 36415; 70450; 71045; 71250; 73630; 73701; 74176; 80053; 80307; 80320; 80329; 81001; 82010; 82248; 82550; 83605; 83690; 83735; 84145; 84443; 84484; 85025; 85379; 85610; 85652; 85730; 86140; 86703; 87040; 87400; 87811; 93005; 96360; 99284; A4649; J7030; Q9967; G0480

== ENCOUNTER 2025-06-29 18:34 | Emergency (ER) | payer MEDICAID, SELFPAY ==
[2025-06-29 19:38] VITALS: BP 130/83; PULSE 74; RESP 20; TEMP 36.6; O2SAT 98; BMI 28.2
--- NOTE | 2025-06-29 19:49 | EDNOTE_ITS ---
ED Extremity Problem RME/HPI General Chief complaint: Extremity Problem,Nontraumatic Stated complaint: JUST LEFT [place], CHRONIC LEG PAIN Arrival date/time: 06/29/25 18:34 RME / HPI RME / HPI Narrative: 45-year-old male presents to the ED with complaint of bilateral lower extremity pain which is chronic in nature. He was seen at [place] [facility] earlier today and lidocaine patches were placed on his bilateral tibia. His pain is the same as its always been without any changes. He denies any other symptoms. Related Data Previous Rx's ?Medication ?Instructions ?Recorded sulfamethoxazole 800 1 tab PO BID #14 tabs mg-trimethoprim 160 mg tablet (Bactrim DS) cyclobenzaprine 5 mg tablet 5 mg PO TID PRN muscle spa sm #30 07/23/23 tabs naproxen 500 mg tablet 500 mg PO BID PRN pain #30 t abs 07/23/23 naproxen 500 mg tablet 500 mg PO BID PRN pain #30 t abs 08/08/23 tamsulosin 0.4 mg capsule (Flomax) 0.4 mg PO QDAY #30 caps 08/08/23 baclofen 10 mg tablet 10 mg PO BID PRN muscle spas m #30 08/14/23 tabs naproxen 500 mg tablet 500 mg PO BID PRN pain #30 t abs 08/14/23 ibuprofen 800 mg tablet 800 mg PO TID PRN pain #30 t abs 08/28/23 ibuprofen 600 mg tablet 600 mg PO Q6H PRN pain #30 t abs 01/27/24 methocarbamol 500 mg tablet 1,000 mg (2 x 500 mg) PO Q 8H PRN 01/27/24 pain #30 tabs naproxen 500 mg tablet (Naprosyn) 500 mg PO BID #14 ta bs 03/15/24 ibuprofen 800 mg tablet 800 mg PO TID PRN pain #30 t abs 04/02/24 cyclobenzaprine 5 mg tablet 5 mg PO TID PRN muscle spa sm #14 04/07/24 tabs ibuprofen 600 mg tablet 600 mg PO Q6H PRN fever or p ain 04/07/24 #30 tabs ibuprofen 600 mg tablet 600 mg PO Q6H PRN pain #30 t abs 04/07/24 cyclobenzaprine 5 mg tablet 5 mg PO TID PRN muscle spa sm #30 04/11/24 tabs naproxen 500 mg tablet 500 mg PO BID PRN pain #30 t abs 04/11/24 ibuprofen 600 mg tablet 600 mg PO Q8H PRN pain #20 t abs 11/03/24 acetaminophen 500 mg capsule 500 mg PO Q6H PRN pain #3 0 caps 12/03/24 acetaminophen 500 mg capsule 500 mg PO Q6H PRN pain #3 0 caps 12/15/24 cyclobenzaprine 5 mg tablet 5 mg PO TID PRN muscle spa sm #15 12/20/24 tabs lidocaine 5 % topical patch 2 patch topical QDAY PRN p ain #30 12/20/24 (Lidoderm) ea naproxen 500 mg tablet 500 mg PO BID PRN pain #14 t abs 04/04/25 Allergies Allergy/AdvReac Type Severity Reaction Status Date / Time No Known Allergies Allergy Verified 06/29/25 18:49 Review of Systems Review of Systems Systems Reviewed: All systems reviewed, normal except as documented Past Medical History Past Medical History NEUROLOGIC: Positive Cerebrovascular Accident; Negative Neurological Disorders CARDIAC: Positive Myocardial Infarction and Hypercholesterolemia; Negative Cardiac Disorders or Congestive Heart Failure RESPIRATORY: Negative Chronic Obstructive Pulmonary Disease (COPD) or Asthma GASTROINTESTINAL: Negative Gastrointestinal Disorders GENITOURINARY: Negative Genitourinary Disorders or Renal Disease MUSCULOSKELETAL: Negative Musculoskeletal Disorders ENDOCRINE: Negative Endocrine Disorders, Diabetes Mellitus Type 1 or Diabetes Mellitus Type 2 HEMATOLOGIC: Negative Blood Disorders or Sickle Cell Disease OTHER HISTORY: Negative Autoimmune Disease or Clostridium Difficile Social History SMOKING STATUS: Former smoker SUBSTANCE USE: methamphetamine ED Exam Narrative Physical exam: Alert, afebrile and non-toxic appearing 45-year-old male, no acute distress. Lung sounds are clear, RRR. Mild tenderness to bilateral tibias without swelling or ecchymosis. Bilateral calves without tenderness. Negative Homans' sign bilaterally. Moves all other extremities well. Course Course Course Narrative: No medications were given during this ED visit. No diagnostic studies were ordered for this visit, as this pain is chronic in nature. Quality Measures none Vital Signs Vital signs: Vital Signs Temperature 97.9 F 06/29/25 19:38 Pulse Rate 74 06/29/25 19:38 Respiratory Rate 20 06/29/25 19:38 Blood Pressure 130/83 06/29/25 19:38 Pulse Oximetry (%) 98 06/29/25 19:38 Oxygen Delivery Method Room Air 06/29/25 19:38 Extremity Problem MDM Narrative MDM Narrative:: Symptoms, exam and diagnostic studies are consistent with: Chronic lower extremity pain Patient was discharged home in stable condition. Patient/family advised to follow-up with their PCP in 24-48 hours. Encouraged to return to the ED for any new or worsening symptoms. Patient data External records reviewed:: None Clinical information provided by:: patient Social determinants that could affect healthcare access:: housing Patient has the following chronic illnesses:: Homeless as well as mental health issues. How is presenting disease/condition affected by chronic disease/condition?: exacerbated by Evaluation data The following diagnostics were reviewed and interpreted by me:: other (specify) (None) Lab and/or radiology exams considered but not ordered:: N/A Interpretation Summary: N/A Medications / Prescriptions Medications or Prescriptions considered but not ordered:: N/A Medication administrations:: N/A Consultations Consultation(s) initiated? (list below): No Diagnosis Extremity Problem Differential Diagnosis: deep vein thrombosis of lower extremity and other (Chronic bilateral lower extremity pain) Most likely diagnosis given after review of the tests above:: Chronic bilateral lower extremity pain Admission Indicated Admission indicated?: not indicated Explain why admission is indicated or not indicated:: Patient is stable for discharge Admission Request Was there a request for admission?: No Admission Attestation Admission request attestation: N/A Disposition Plan Disposition Plan: Discharge Discharge Attestation Discharge Attestation: The patient and all family members were given an opportunity to ask questions and understood the discharge instructions. Discharge instructions specifically effects, indications for sooner follow up or return to the emergency department, and the expected course of current diagnosis. Patient condition: Stable Discharge Plan Plan Patient Disposition: HOME (Self Care) Discharge Disposition comment: Stable Prescriptions/Referrals Prescriptions/Med Rec: No Action naproxen 500 mg tablet 500 mg PO BID PRN (Reason: pain) Qty: 30 0RF cyclobenzaprine 5 mg tablet 5 mg PO TID PRN (Reason: muscle spasm) Qty: 30 0RF naproxen 500 mg tablet 500 mg PO BID PRN (Reason: pain) Qty: 30 0RF baclofen 10 mg tablet 10 mg PO BID PRN (Reason: muscle spasm) Qty: 30 0RF ibuprofen 800 mg tablet 800 mg PO TID PRN (Reason: pain) Qty: 30 0RF ibuprofen 800 mg tablet 800 mg PO TID PRN (Reason: pain) Qty: 30 0RF ibuprofen 600 mg tablet 600 mg PO Q6H PRN (Reason: pain) Qty: 30 0RF ibuprofen 600 mg tablet 600 mg PO Q8H PRN (Reason: pain) Qty: 20 0RF acetaminophen 500 mg capsule 500 mg PO Q6H PRN (Reason: pain) Qty: 30 0RF lidocaine [Lidoderm] 5 % adhesive patch,medicated 2 patch topical QDAY PRN (Reason: pain) Qty: 30 0RF Rx Instructions: leave on most painful area for up to 12 hrs cyclobenzaprine 5 mg tablet 5 mg PO TID PRN (Reason: muscle spasm) Qty: 15 0RF naproxen 500 mg tablet 500 mg PO BID PRN (Reason: pain) Qty: 14 0RF sulfamethoxazole-trimethoprim [Bactrim DS] 800-160 mg tablet 1 tab PO BID Qty: 14 0RF naproxen 500 mg tablet 500 mg PO BID PRN (Reason: pain) Qty: 30 0RF tamsulosin [Flomax] 0.4 mg capsule 0.4 mg PO QDAY Qty: 30 0RF ibuprofen 600 mg tablet 600 mg PO Q6H PRN (Reason: pain) Qty: 30 0RF methocarbamol 500 mg tablet 1,000 mg PO Q8H PRN (Reason: pain) Qty: 30 0RF naproxen [Naprosyn] 500 mg tablet 500 mg PO BID Qty: 14 0RF ibuprofen 600 mg tablet 600 mg PO Q6H PRN (Reason: fever or pain) Qty: 30 0RF cyclobenzaprine 5 mg tablet 5 mg PO TID PRN (Reason: muscle spasm) Qty: 14 0RF naproxen 500 mg tablet 500 mg PO BID PRN (Reason: pain) Qty: 30 0RF cyclobenzaprine 5 mg tablet 5 mg PO TID PRN (Reason: muscle spasm) Qty: 30 0RF acetaminophen 500 mg capsule 500 mg PO Q6H PRN (Reason: pain) Qty: 30 0RF Referrals: No Primary/Family,Physician [Primary Care Provider] - In 1 week Problem List Clinical Impression: Chronic pain of lower extremity, bilateral Patient/Caregiver Discharge Instructions Education Materials: ED Chronic Pain 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 Follow-up with your primary care physician. Print Language: Angolan Stand Alone Forms: Tami Award Info., Patient Portal Info Letter PA/NUT DEHYDRATOR OPERATOR Supervising Physician FAINA/DEVYN Supervising Physician: Dr. Snyder
== END 2025-06-29 20:06 | disposition home or self-care (01) ==
PROVIDERS: Emergency Provider Physician Assistant
DX: G89.29 Other chronic pain (principal); M79.605 Pain in left leg; M79.604 Pain in right leg; Z87.891 Personal history of nicotine dependence; Z59.00 Homelessness unspecified
CPT/HCPCS: 99283

== ENCOUNTER 2025-07-01 15:43 | Emergency (ER) | payer MEDICAID, SELFPAY ==
[2025-07-01 15:54] VITALS: PULSE 88; RESP 18; O2SAT 99
[2025-07-01 16:02] VITALS: BP 129/80; PULSE 84; RESP 20; TEMP 36.7; O2SAT 97
--- NOTE | 2025-07-01 16:23 | EDNOTE_ITS ---
ED General RME/HPI General Stated complaint: LEG PAIN Time Seen by Provider: 07/01/25 15:54 Arrival date/time: 07/01/25 15:43 45-year-old male homeless presents to the Emergency Department today requesting food and water reports chronic leg pain Limitations: no limitations Related Data Previous Rx's ?Medication ?Instructions ?Recorded sulfamethoxazole 800 1 tab PO BID #14 tabs mg-trimethoprim 160 mg tablet (Bactrim DS) cyclobenzaprine 5 mg tablet 5 mg PO TID PRN muscle spa sm #30 07/23/23 tabs naproxen 500 mg tablet 500 mg PO BID PRN pain #30 t abs 07/23/23 naproxen 500 mg tablet 500 mg PO BID PRN pain #30 t abs 08/08/23 tamsulosin 0.4 mg capsule (Flomax) 0.4 mg PO QDAY #30 caps 08/08/23 baclofen 10 mg tablet 10 mg PO BID PRN muscle spas m #30 08/14/23 tabs naproxen 500 mg tablet 500 mg PO BID PRN pain #30 t abs 08/14/23 ibuprofen 800 mg tablet 800 mg PO TID PRN pain #30 t abs 08/28/23 ibuprofen 600 mg tablet 600 mg PO Q6H PRN pain #30 t abs 01/27/24 methocarbamol 500 mg tablet 1,000 mg (2 x 500 mg) PO Q 8H PRN 01/27/24 pain #30 tabs naproxen 500 mg tablet (Naprosyn) 500 mg PO BID #14 ta bs 03/15/24 ibuprofen 800 mg tablet 800 mg PO TID PRN pain #30 t abs 04/02/24 cyclobenzaprine 5 mg tablet 5 mg PO TID PRN muscle spa sm #14 04/07/24 tabs ibuprofen 600 mg tablet 600 mg PO Q6H PRN fever or p ain 04/07/24 #30 tabs ibuprofen 600 mg tablet 600 mg PO Q6H PRN pain #30 t abs 04/07/24 cyclobenzaprine 5 mg tablet 5 mg PO TID PRN muscle spa sm #30 04/11/24 tabs naproxen 500 mg tablet 500 mg PO BID PRN pain #30 t abs 04/11/24 ibuprofen 600 mg tablet 600 mg PO Q8H PRN pain #20 t abs 11/03/24 acetaminophen 500 mg capsule 500 mg PO Q6H PRN pain #3 0 caps 12/03/24 acetaminophen 500 mg capsule 500 mg PO Q6H PRN pain #3 0 caps 12/15/24 cyclobenzaprine 5 mg tablet 5 mg PO TID PRN muscle spa sm #15 12/20/24 tabs lidocaine 5 % topical patch 2 patch topical QDAY PRN p ain #30 12/20/24 (Lidoderm) ea naproxen 500 mg tablet 500 mg PO BID PRN pain #14 t abs 04/04/25 Allergies Allergy/AdvReac Type Severity Reaction Status Date / Time No Known Allergies Allergy Verified 06/29/25 18:49 Review of Systems Review of Systems Systems Reviewed: All systems reviewed, normal except as documented Constitutional Constitutional: Reports system reviewed and no additional complaints, except as documented, Denies fever(s) and Denies headache(s) Eyes Eyes: Reports system reviewed and no additional complaints, except as documented and Denies blurry vision ENT Ears, Nose, Mouth, and Throat: Reports system reviewed and no additional complaints, except as documented, Denies headache(s), Denies nasal congestion and Denies nasal discharge Cardiovascular Cardiovascular: Reports system reviewed and no additional complaints, except as documented, Denies chest pain and Denies dyspnea Respiratory Respiratory: Reports system reviewed and no additional complaints, except as documented, Denies chest congestion, Denies cough and Denies dyspnea Gastrointestinal Gastrointestinal: Reports system reviewed and no additional complaints, except as documented and Denies abdominal pain Musculoskeletal Musculoskeletal: Reports system reviewed and no additional complaints, except as documented, Denies abnormal gait, Reports arthralgias, Denies numbness, Denies stiffness and Denies tingling Integumentary/Breasts Skin/Breast: Reports system reviewed and no additional complaints, except as documented and Denies rash Neurologic Neurologic: Reports system reviewed and no additional complaints, except as documented, Reports as per HPI, Denies abnormal gait, Denies headache(s), Denies numbness and Denies tingling Past Medical History Past Medical History NEUROLOGIC: Positive Cerebrovascular Accident; Negative Neurological Disorders CARDIAC: Positive Myocardial Infarction and Hypercholesterolemia; Negative Cardiac Disorders or Congestive Heart Failure RESPIRATORY: Negative Chronic Obstructive Pulmonary Disease (COPD) or Asthma GASTROINTESTINAL: Negative Gastrointestinal Disorders GENITOURINARY: Negative Genitourinary Disorders or Renal Disease MUSCULOSKELETAL: Negative Musculoskeletal Disorders ENDOCRINE: Negative Endocrine Disorders, Diabetes Mellitus Type 1 or Diabetes Mellitus Type 2 HEMATOLOGIC: Negative Blood Disorders or Sickle Cell Disease OTHER HISTORY: Negative Autoimmune Disease or Clostridium Difficile Social History SMOKING STATUS: Current every day smoker SUBSTANCE USE: methamphetamine ED Exam General Limitations: Present no limitations General appearance: Present alert and in no apparent distress Head Head exam: Present atraumatic Eye Eye exam: Present normal appearance, PERRL and EOMI ENT ENT exam: Present normal exam, normal oropharynx and mucous membranes moist Neck Neck exam: Present normal inspection, full ROM and trachea midline Chest Chest inspection: Present normal inspection and symmetric chest wall rise Respiratory Respiratory exam: Present normal lung sounds bilaterally Cardiovascular Cardiovascular exam: Present regular rate, normal rhythm and normal heart sounds Abdominal Exam Abdominal exam: Present soft and normal bowel sounds Extremities Exam Extremities exam: Present normal inspection and full ROM Back Exam Back exam: Present normal inspection and full ROM Neurological Exam Neurological exam: Present alert, oriented X3 and CN II-XII intact Psychiatric Psychiatric exam: Present normal affect and normal mood Skin Skin exam: Present warm, dry, intact and normal color Course Quality Measures none Vital Signs Vital signs: Vital Signs Temperature 98.1 F 07/01/25 16:02 Pulse Rate 84 07/01/25 16:02 Respiratory Rate 20 07/01/25 16:02 Blood Pressure 129/80 07/01/25 16:02 Pulse Oximetry (%) 97 07/01/25 16:02 Oxygen Delivery Method Room Air 07/01/25 16:02 O2 saturation 97% room air wnl Discharge Plan Plan Patient Disposition: HOME (Self Care) Discharge Disposition comment: Stable Prescriptions/Referrals Prescriptions/Med Rec: No Action naproxen 500 mg tablet 500 mg PO BID PRN (Reason: pain) Qty: 30 0RF cyclobenzaprine 5 mg tablet 5 mg PO TID PRN (Reason: muscle spasm) Qty: 30 0RF naproxen 500 mg tablet 500 mg PO BID PRN (Reason: pain) Qty: 30 0RF baclofen 10 mg tablet 10 mg PO BID PRN (Reason: muscle spasm) Qty: 30 0RF ibuprofen 800 mg tablet 800 mg PO TID PRN (Reason: pain) Qty: 30 0RF ibuprofen 800 mg tablet 800 mg PO TID PRN (Reason: pain) Qty: 30 0RF ibuprofen 600 mg tablet 600 mg PO Q6H PRN (Reason: pain) Qty: 30 0RF ibuprofen 600 mg tablet 600 mg PO Q8H PRN (Reason: pain) Qty: 20 0RF acetaminophen 500 mg capsule 500 mg PO Q6H PRN (Reason: pain) Qty: 30 0RF lidocaine [Lidoderm] 5 % adhesive patch,medicated 2 patch topical QDAY PRN (Reason: pain) Qty: 30 0RF Rx Instructions: leave on most painful area for up to 12 hrs cyclobenzaprine 5 mg tablet 5 mg PO TID PRN (Reason: muscle spasm) Qty: 15 0RF naproxen 500 mg tablet 500 mg PO BID PRN (Reason: pain) Qty: 14 0RF sulfamethoxazole-trimethoprim [Bactrim DS] 800-160 mg tablet 1 tab PO BID Qty: 14 0RF naproxen 500 mg tablet 500 mg PO BID PRN (Reason: pain) Qty: 30 0RF tamsulosin [Flomax] 0.4 mg capsule 0.4 mg PO QDAY Qty: 30 0RF ibuprofen 600 mg tablet 600 mg PO Q6H PRN (Reason: pain) Qty: 30 0RF methocarbamol 500 mg tablet 1,000 mg PO Q8H PRN (Reason: pain) Qty: 30 0RF naproxen [Naprosyn] 500 mg tablet 500 mg PO BID Qty: 14 0RF ibuprofen 600 mg tablet 600 mg PO Q6H PRN (Reason: fever or pain) Qty: 30 0RF cyclobenzaprine 5 mg tablet 5 mg PO TID PRN (Reason: muscle spasm) Qty: 14 0RF naproxen 500 mg tablet 500 mg PO BID PRN (Reason: pain) Qty: 30 0RF cyclobenzaprine 5 mg tablet 5 mg PO TID PRN (Reason: muscle spasm) Qty: 30 0RF acetaminophen 500 mg capsule 500 mg PO Q6H PRN (Reason: pain) Qty: 30 0RF Problem List Clinical Impression: Chronic leg pain, Homeless Patient/Caregiver Discharge Instructions Education Materials: ED RICE Additional Instructions: Please follow up with your primary care doctor in the next 24-48hrs for any worsening symptoms return here immediately Print Language: Senegalese Stand Alone Forms: Tami Award Info., Patient Portal Info Letter PA/ELECTRICAL TEST TECHNICIAN Supervising Physician PA/ELECTRICAL TEST TECHNICIAN Supervising Physician: Dr. yaya TAYLOR Attestation MD Attestation The patient was seen by the midlevel practitioner. I, the co-signing physician, was present during the entire ER visit. While I did not physically examine the patient, I was available for consultation as needed. I agree with the plan and documentation. MDM Narrative [facility] hospital course: 45-year-old male homeless presents to the Emergency Department today requesting food and water reports chronic leg pain On exam patient well-appearing patient is not appear toxic no acute distress Patient is acting his normal self has no acute complaints other than his chronic leg pain Patient given food and water Patient discharged home in no distress to follow-up with primary care doctor in the next 24 to 48 hours and for any worsening symptoms to return to the ER immediately Clinical Information Provided by patient Medical Records Reviewed [facility] Meds/Rx Considered, not Ordered None Labs/Rad/Tests considered, not Ordered None Chronic Illness/Social Conditions which may negatively complicate care or outcome(s)-explain: None or not applicable EKG EKG not done Lab Interpretation Labs: none Imaging Imaging interpretation: none Medication Administration(s) none Diagnosis Differential dx and/or dx ruled out: Acute on chronic leg pain, leg pain, DVT Most likely dx, and/or detailed dx discussion: Leg pain homelessness Dispositon Disposition: Discharge Home
--- NOTE | 2025-07-01 16:50 | PC.NURSE ---
PT PROVIDED FOOD AND WATER AT THIS TIME
== END 2025-07-01 17:15 | disposition home or self-care (01) ==
LOC: SERX 16:21
PROVIDERS: Emergency Provider Family Medicine; PCP Family Medicine
DX: G89.29 Other chronic pain (principal); M79.606 Pain in leg, unspecified; Z59.00 Homelessness unspecified
CPT/HCPCS: 99282

== ENCOUNTER 2025-07-01 19:15 | Emergency (ER) | payer MEDICAID, SELFPAY ==
--- NOTE | 2025-07-01 19:42 | PC.NURSE ---
PT PROVIDED FOOD AND WATER AT THIS TIME
[2025-07-01 19:44] VITALS: BP 143/83; PULSE 83; RESP 18; TEMP 37.1; O2SAT 97
--- NOTE | 2025-07-01 19:47 | EDNOTE_ITS ---
ED General RME/HPI General Chief complaint: General Adult/Misc Complain Stated complaint: LEG PAIN Time Seen by Provider: 07/01/25 19:40 Arrival date/time: 07/01/25 19:15 RME / HPI RME / HPI narrative: 45-year-old male presents to the ED with a complaint of chronic bilateral lower extremity pain. He has already been seen today for the same complaint. He has not picked up his medications from the local pharmacy stating he did not make it. There has been no change in his pain. He has no tenderness to the bilateral lower extremities or bilateral calfs. Related Data Previous Rx's ?Medication ?Instructions ?Recorded sulfamethoxazole 800 1 tab PO BID #14 tabs mg-trimethoprim 160 mg tablet (Bactrim DS) cyclobenzaprine 5 mg tablet 5 mg PO TID PRN muscle spa sm #30 07/23/23 tabs naproxen 500 mg tablet 500 mg PO BID PRN pain #30 t abs 07/23/23 naproxen 500 mg tablet 500 mg PO BID PRN pain #30 t abs 08/08/23 tamsulosin 0.4 mg capsule (Flomax) 0.4 mg PO QDAY #30 caps 08/08/23 baclofen 10 mg tablet 10 mg PO BID PRN muscle spas m #30 08/14/23 tabs naproxen 500 mg tablet 500 mg PO BID PRN pain #30 t abs 08/14/23 ibuprofen 800 mg tablet 800 mg PO TID PRN pain #30 t abs 08/28/23 ibuprofen 600 mg tablet 600 mg PO Q6H PRN pain #30 t abs 01/27/24 methocarbamol 500 mg tablet 1,000 mg (2 x 500 mg) PO Q 8H PRN 01/27/24 pain #30 tabs naproxen 500 mg tablet (Naprosyn) 500 mg PO BID #14 ta bs 03/15/24 ibuprofen 800 mg tablet 800 mg PO TID PRN pain #30 t abs 04/02/24 cyclobenzaprine 5 mg tablet 5 mg PO TID PRN muscle spa sm #14 04/07/24 tabs ibuprofen 600 mg tablet 600 mg PO Q6H PRN fever or p ain 04/07/24 #30 tabs ibuprofen 600 mg tablet 600 mg PO Q6H PRN pain #30 t abs 04/07/24 cyclobenzaprine 5 mg tablet 5 mg PO TID PRN muscle spa sm #30 04/11/24 tabs naproxen 500 mg tablet 500 mg PO BID PRN pain #30 t abs 04/11/24 ibuprofen 600 mg tablet 600 mg PO Q8H PRN pain #20 t abs 11/03/24 acetaminophen 500 mg capsule 500 mg PO Q6H PRN pain #3 0 caps 12/03/24 acetaminophen 500 mg capsule 500 mg PO Q6H PRN pain #3 0 caps 12/15/24 cyclobenzaprine 5 mg tablet 5 mg PO TID PRN muscle spa sm #15 12/20/24 tabs lidocaine 5 % topical patch 2 patch topical QDAY PRN p ain #30 12/20/24 (Lidoderm) ea naproxen 500 mg tablet 500 mg PO BID PRN pain #14 t abs 04/04/25 Allergies Allergy/AdvReac Type Severity Reaction Status Date / Time No Known Allergies Allergy Verified 07/01/25 19:32 Review of Systems Review of Systems Systems Reviewed: All systems reviewed, normal except as documented Past Medical History Past Medical History NEUROLOGIC: Positive Cerebrovascular Accident; Negative Neurological Disorders CARDIAC: Positive Myocardial Infarction and Hypercholesterolemia; Negative Cardiac Disorders or Congestive Heart Failure RESPIRATORY: Negative Chronic Obstructive Pulmonary Disease (COPD) or Asthma GASTROINTESTINAL: Negative Gastrointestinal Disorders GENITOURINARY: Negative Genitourinary Disorders or Renal Disease MUSCULOSKELETAL: Negative Musculoskeletal Disorders ENDOCRINE: Negative Endocrine Disorders, Diabetes Mellitus Type 1 or Diabetes Mellitus Type 2 HEMATOLOGIC: Negative Blood Disorders or Sickle Cell Disease OTHER HISTORY: Negative Autoimmune Disease or Clostridium Difficile Social History SMOKING STATUS: Current some day smoker SUBSTANCE USE: methamphetamine Course Quality Measures none Vital Signs Vital signs: Vital Signs Temperature 98.8 F 07/01/25 19:44 Pulse Rate 83 07/01/25 19:44 Respiratory Rate 18 07/01/25 19:44 Blood Pressure 143/83 H 07/01/25 19:44 Pulse Oximetry (%) 97 07/01/25 19:44 Oxygen Delivery Method Room Air 07/01/25 19:44 Discharge Plan Plan Patient Disposition: HOME (Self Care) Discharge Disposition comment: Stable Prescriptions/Referrals Prescriptions/Med Rec: No Action naproxen 500 mg tablet 500 mg PO BID PRN (Reason: pain) Qty: 30 0RF cyclobenzaprine 5 mg tablet 5 mg PO TID PRN (Reason: muscle spasm) Qty: 30 0RF naproxen 500 mg tablet 500 mg PO BID PRN (Reason: pain) Qty: 30 0RF baclofen 10 mg tablet 10 mg PO BID PRN (Reason: muscle spasm) Qty: 30 0RF ibuprofen 800 mg tablet 800 mg PO TID PRN (Reason: pain) Qty: 30 0RF ibuprofen 800 mg tablet 800 mg PO TID PRN (Reason: pain) Qty: 30 0RF ibuprofen 600 mg tablet 600 mg PO Q6H PRN (Reason: pain) Qty: 30 0RF ibuprofen 600 mg tablet 600 mg PO Q8H PRN (Reason: pain) Qty: 20 0RF acetaminophen 500 mg capsule 500 mg PO Q6H PRN (Reason: pain) Qty: 30 0RF lidocaine [Lidoderm] 5 % adhesive patch,medicated 2 patch topical QDAY PRN (Reason: pain) Qty: 30 0RF Rx Instructions: leave on most painful area for up to 12 hrs cyclobenzaprine 5 mg tablet 5 mg PO TID PRN (Reason: muscle spasm) Qty: 15 0RF naproxen 500 mg tablet 500 mg PO BID PRN (Reason: pain) Qty: 14 0RF sulfamethoxazole-trimethoprim [Bactrim DS] 800-160 mg tablet 1 tab PO BID Qty: 14 0RF naproxen 500 mg tablet 500 mg PO BID PRN (Reason: pain) Qty: 30 0RF tamsulosin [Flomax] 0.4 mg capsule 0.4 mg PO QDAY Qty: 30 0RF ibuprofen 600 mg tablet 600 mg PO Q6H PRN (Reason: pain) Qty: 30 0RF methocarbamol 500 mg tablet 1,000 mg PO Q8H PRN (Reason: pain) Qty: 30 0RF naproxen [Naprosyn] 500 mg tablet 500 mg PO BID Qty: 14 0RF ibuprofen 600 mg tablet 600 mg PO Q6H PRN (Reason: fever or pain) Qty: 30 0RF cyclobenzaprine 5 mg tablet 5 mg PO TID PRN (Reason: muscle spasm) Qty: 14 0RF naproxen 500 mg tablet 500 mg PO BID PRN (Reason: pain) Qty: 30 0RF cyclobenzaprine 5 mg tablet 5 mg PO TID PRN (Reason: muscle spasm) Qty: 30 0RF acetaminophen 500 mg capsule 500 mg PO Q6H PRN (Reason: pain) Qty: 30 0RF Problem List Clinical Impression: Chronic leg pain Patient/Caregiver Discharge Instructions Education Materials: ED Chronic Pain Additional Instructions: historic sites supervisor your medications from the pharmacy as previously prescribed. Follow-up with your primary care physician in 24 to 48 hours. Return to the ED for any new or worsening symptoms. Print Language: Cuban Stand Alone Forms: T[employer] Award Info., Patient Portal Info Letter PA/DEVYN Supervising Physician FAINA/DEVYN Supervising Physician: Dr. Snyder [facility] Narrative [facility] hospital course: Symptoms, exam and diagnostic studies are consistent with: Chronic bilateral lower extremity pain Patient was discharged home in stable condition. Patient/family advised to follow-up with their PCP in 24-48 hours. Encouraged to return to the ED for any new or worsening symptoms. Procedures done or offered: N/A Clinical Information Provided by patient Medical Records Reviewed [facility] Chronic bilateral lower extremity pain without edema. Meds/Rx Considered, not Ordered None Describe details: N/A Labs/Rad/Tests considered, not Ordered None Describe details: N/A Chronic Illness/Social Conditions which may negatively complicate care or outcome(s)-explain: Homeless and Mental health EKG EKG not done EKG Interpretation narrative: N/A Lab Interpretation Labs: none Lab(s) interpretation(s): N/A Imaging Imaging interpretation: none Radiology reports / interpretation(s): N/A Medication Administration(s) none N/A Diagnosis Most likely dx, and/or detailed dx discussion: Chronic bilateral lower extremity pain Dispositon Disposition: Discharge Home Disposition comments: Stable for discharge
== END 2025-07-01 19:57 | disposition home or self-care (01) ==
LOC: SERX 19:55
PROVIDERS: Emergency Provider Emergency Medicine; PCP Family Medicine
DX: G89.29 Other chronic pain (principal); M79.605 Pain in left leg; M79.604 Pain in right leg
CPT/HCPCS: 99282

== ENCOUNTER 2025-07-02 07:14 | Emergency (ER) | payer MEDICAID, SELFPAY ==
[2025-07-02 07:15] VITALS: PULSE 78; O2SAT 98
--- NOTE | 2025-07-02 07:35 | PD.EDADULT ---
ED General RME/HPI General Chief complaint: General Adult/Misc Complain Stated complaint: MY LEGS HURT Time Seen by Provider: 07/02/25 07:34 Source: patient Arrival date/time: 07/02/25 07:14 Mode of arrival: ambulatory Limitations: no limitations RME / HPI RME / HPI narrative: 45-year-old male presents to the ED with a complaint of legs hurting. Onset (ago): unknown (Chronic) Location: lower extremity (LEFT AND RIGHT LOWER EXTREMITY) Severity scale (1-10): 5 Quality: aching Related Data Previous Rx's ?Medication ?Instructions ?Recorded sulfamethoxazole 800 1 tab PO BID #14 tabs 03/09/23 mg-trimethoprim 160 mg tablet (Bactrim DS) cyclobenzaprine 5 mg tablet 5 mg PO TID PRN muscle spasm #30 07/23/23 tabs naproxen 500 mg tablet 500 mg PO BID PRN pain #30 tabs 07/23/23 naproxen 500 mg tablet 500 mg PO BID PRN pain #30 tabs 08/08/23 tamsulosin 0.4 mg capsule (Flomax) 0.4 mg PO QDAY #30 caps 08/08/23 baclofen 10 mg tablet 10 mg PO BID PRN muscle spasm #30 08/14/23 tabs naproxen 500 mg tablet 500 mg PO BID PRN pain #30 tabs 08/14/23 ibuprofen 800 mg tablet 800 mg PO TID PRN pain #30 tabs 08/28/23 ibuprofen 600 mg tablet 600 mg PO Q6H PRN pain #30 tabs 01/27/24 methocarbamol 500 mg tablet 1,000 mg (2 x 500 mg) PO Q8H PRN 01/27/24 pain #30 tabs naproxen 500 mg tablet (Naprosyn) 500 mg PO BID #14 tabs 03/15/24 ibuprofen 800 mg tablet 800 mg PO TID PRN pain #30 tabs 04/02/24 cyclobenzaprine 5 mg tablet 5 mg PO TID PRN muscle spasm #14 04/07/24 tabs ibuprofen 600 mg tablet 600 mg PO Q6H PRN fever or pain 04/07/24 #30 tabs ibuprofen 600 mg tablet 600 mg PO Q6H PRN pain #30 tabs 04/07/24 cyclobenzaprine 5 mg tablet 5 mg PO TID PRN muscle spasm #30 04/11/24 tabs naproxen 500 mg tablet 500 mg PO BID PRN pain #30 tabs 04/11/24 ibuprofen 600 mg tablet 600 mg PO Q8H PRN pain #20 tabs 11/03/24 acetaminophen 500 mg capsule 500 mg PO Q6H PRN pain #30 caps 12/03/24 acetaminophen 500 mg capsule 500 mg PO Q6H PRN pain #30 caps 12/15/24 cyclobenzaprine 5 mg tablet 5 mg PO TID PRN muscle spasm #15 12/20/24 tabs lidocaine 5 % topical patch 2 patch topical QDAY PRN pain #30 12/20/24 (Lidoderm) ea naproxen 500 mg tablet 500 mg PO BID PRN pain #14 tabs 04/04/25 Allergies Allergy/AdvReac Type Severity Reaction Status Date / Time No Known Allergies Allergy Verified 07/02/25 07:17 Review of Systems Constitutional Constitutional: Reports system reviewed and no additional complaints, except as documented Eyes Eyes: Reports system reviewed and no additional complaints, except as documented, Denies dry eyes, Denies exophthalmos and Reports floaters Cardiovascular Cardiovascular: Denies chest pain with activity and Denies claudication ED Exam General Limitations: Present no limitations General appearance: Present alert and in no apparent distress Head Head exam: Present atraumatic Eye Eye exam: Present normal appearance and EOMI ENT ENT exam: Present normal exam, normal oropharynx and mucous membranes moist Neck Neck exam: Present normal inspection, full ROM and trachea midline Chest Chest inspection: Present normal inspection and symmetric chest wall rise Extremities Exam Extremities exam: Present normal inspection and full ROM Back Exam Back exam: Present normal inspection and full ROM Neurological Exam Neurological exam: Present alert and oriented X3 Psychiatric Psychiatric exam: Present normal affect and normal mood Skin Skin exam: Present warm, dry, intact and normal color Course Course Course Narrative: Patient will have 600 mg of ibuprofen Quality Measures none (NA) Orders Category Date Time Status Ibuprofen Tab [Motrin Tab] Med 07/02/25 07:34 Discontinued 600 mg PO X1 ONE NA Reevaluation(s) Reevaluation #1: NA Discharge Plan Plan Patient Disposition: HOME (Self Care) Prescriptions/Referrals Prescriptions/Med Rec: No Action naproxen 500 mg tablet 500 mg PO BID PRN (Reason: pain) Qty: 30 0RF cyclobenzaprine 5 mg tablet 5 mg PO TID PRN (Reason: muscle spasm) Qty: 30 0RF naproxen 500 mg tablet 500 mg PO BID PRN (Reason: pain) Qty: 30 0RF baclofen 10 mg tablet 10 mg PO BID PRN (Reason: muscle spasm) Qty: 30 0RF ibuprofen 800 mg tablet 800 mg PO TID PRN (Reason: pain) Qty: 30 0RF ibuprofen 800 mg tablet 800 mg PO TID PRN (Reason: pain) Qty: 30 0RF ibuprofen 600 mg tablet 600 mg PO Q6H PRN (Reason: pain) Qty: 30 0RF ibuprofen 600 mg tablet 600 mg PO Q8H PRN (Reason: pain) Qty: 20 0RF acetaminophen 500 mg capsule 500 mg PO Q6H PRN (Reason: pain) Qty: 30 0RF lidocaine [Lidoderm] 5 % adhesive patch,medicated 2 patch topical QDAY PRN (Reason: pain) Qty: 30 0RF Rx Instructions: leave on most painful area for up to 12 hrs cyclobenzaprine 5 mg tablet 5 mg PO TID PRN (Reason: muscle spasm) Qty: 15 0RF naproxen 500 mg tablet 500 mg PO BID PRN (Reason: pain) Qty: 14 0RF sulfamethoxazole-trimethoprim [Bactrim DS] 800-160 mg tablet 1 tab PO BID Qty: 14 0RF naproxen 500 mg tablet 500 mg PO BID PRN (Reason: pain) Qty: 30 0RF tamsulosin [Flomax] 0.4 mg capsule 0.4 mg PO QDAY Qty: 30 0RF ibuprofen 600 mg tablet 600 mg PO Q6H PRN (Reason: pain) Qty: 30 0RF methocarbamol 500 mg tablet 1,000 mg PO Q8H PRN (Reason: pain) Qty: 30 0RF naproxen [Naprosyn] 500 mg tablet 500 mg PO BID Qty: 14 0RF ibuprofen 600 mg tablet 600 mg PO Q6H PRN (Reason: fever or pain) Qty: 30 0RF cyclobenzaprine 5 mg tablet 5 mg PO TID PRN (Reason: muscle spasm) Qty: 14 0RF naproxen 500 mg tablet 500 mg PO BID PRN (Reason: pain) Qty: 30 0RF cyclobenzaprine 5 mg tablet 5 mg PO TID PRN (Reason: muscle spasm) Qty: 30 0RF acetaminophen 500 mg capsule 500 mg PO Q6H PRN (Reason: pain) Qty: 30 0RF Problem List Clinical Impression: Homelessness Patient/Caregiver Discharge Instructions Discharge Activity: activity as tolerated Print Language: Malay Stand Alone Forms: Tami Award Info., Patient Portal Info Letter PA/ACUTE CARE CLINICAL NURSE SPECIALIST Supervising Physician PA/ACUTE CARE CLINICAL NURSE SPECIALIST Supervising Physician: MAL QUINTANILLA Narrative MDM hospital course: Patient will have 600 mg of ibuprofen p.o. will be discharged in no apparent distress. Clinical Information Provided by patient Medical Records Reviewed other (NA) Meds/Rx Considered, not Ordered None Describe details: NA Labs/Rad/Tests considered, not Ordered None Describe details: NA Chronic Illness/Social Conditions which may negatively complicate care or outcome(s)-explain: Homeless, Mental health, Gravely disabled, Hx of noncompliance and ETOH/drugs/substance abuse EKG EKG not done Lab Interpretation Labs: none Lab(s) interpretation(s): NA Imaging Imaging interpretation: none Medication Administration(s) none Medication Administration History Discontinued Medications Ibuprofen (Ibuprofen Tab 600 Mg Tablet) 600 mg PO X1 ONE Stop: 07/02/25 07:35 Dispositon Disposition: Discharge Home
[2025-07-02] MEDS: IBUPROFEN TAB 600 MG TABLET PO (07:48)
== END 2025-07-02 07:59 | disposition home or self-care (01) ==
LOC: SERX 07:57
PROVIDERS: Emergency Provider Physician Assistant; PCP Family Medicine
DX: M79.605 Pain in left leg (principal); Z59.00 Homelessness unspecified; M79.604 Pain in right leg
CPT/HCPCS: 99282; A9270

== ENCOUNTER 2025-07-02 14:00 | Emergency (ER) | payer MEDICAID, SELFPAY ==
[2025-07-02 14:18] VITALS: PULSE 96; O2SAT 98
--- NOTE | 2025-07-02 15:46 | EDNOTE_ITS ---
ED Extremity Problem RME/HPI General Stated complaint: LEG PAIN Time Seen by Provider: 07/02/25 14:15 Source: patient Arrival date/time: 07/02/25 14:00 Mode of arrival: ambulatory Limitations: no limitations RME / HPI Complaint: extremity pain Onset (ago): unknown (Chronic) Consistency: constant Location: left, right and lower extremity (Bilateral) Severity scale (1-10): 4 Quality: aching Related Data Previous Rx's ?Medication ?Instructions ?Recorded sulfamethoxazole 800 1 tab PO BID #14 tabs mg-trimethoprim 160 mg tablet (Bactrim DS) cyclobenzaprine 5 mg tablet 5 mg PO TID PRN muscle spa sm #30 07/23/23 tabs naproxen 500 mg tablet 500 mg PO BID PRN pain #30 t abs 07/23/23 naproxen 500 mg tablet 500 mg PO BID PRN pain #30 t abs 08/08/23 tamsulosin 0.4 mg capsule (Flomax) 0.4 mg PO QDAY #30 caps 08/08/23 baclofen 10 mg tablet 10 mg PO BID PRN muscle spas m #30 08/14/23 tabs naproxen 500 mg tablet 500 mg PO BID PRN pain #30 t abs 08/14/23 ibuprofen 800 mg tablet 800 mg PO TID PRN pain #30 t abs 08/28/23 ibuprofen 600 mg tablet 600 mg PO Q6H PRN pain #30 t abs 01/27/24 methocarbamol 500 mg tablet 1,000 mg (2 x 500 mg) PO Q 8H PRN 01/27/24 pain #30 tabs naproxen 500 mg tablet (Naprosyn) 500 mg PO BID #14 ta bs 03/15/24 ibuprofen 800 mg tablet 800 mg PO TID PRN pain #30 t abs 04/02/24 cyclobenzaprine 5 mg tablet 5 mg PO TID PRN muscle spa sm #14 04/07/24 tabs ibuprofen 600 mg tablet 600 mg PO Q6H PRN fever or p ain 04/07/24 #30 tabs ibuprofen 600 mg tablet 600 mg PO Q6H PRN pain #30 t abs 04/07/24 cyclobenzaprine 5 mg tablet 5 mg PO TID PRN muscle spa sm #30 04/11/24 tabs naproxen 500 mg tablet 500 mg PO BID PRN pain #30 t abs 04/11/24 ibuprofen 600 mg tablet 600 mg PO Q8H PRN pain #20 t abs 11/03/24 acetaminophen 500 mg capsule 500 mg PO Q6H PRN pain #3 0 caps 12/03/24 acetaminophen 500 mg capsule 500 mg PO Q6H PRN pain #3 0 caps 12/15/24 cyclobenzaprine 5 mg tablet 5 mg PO TID PRN muscle spa sm #15 12/20/24 tabs lidocaine 5 % topical patch 2 patch topical QDAY PRN p ain #30 12/20/24 (Lidoderm) ea naproxen 500 mg tablet 500 mg PO BID PRN pain #14 t abs 04/04/25 Allergies Allergy/AdvReac Type Severity Reaction Status Date / Time No Known Allergies Allergy Verified 07/02/25 14:18 Review of Systems Constitutional Constitutional: Reports system reviewed and no additional complaints, except as documented Eyes Eyes: Reports system reviewed and no additional complaints, except as documented, Denies dry eyes, Denies exophthalmos and Reports floaters Cardiovascular Cardiovascular: Denies chest pain with activity and Denies claudication ED Exam General Limitations: Present no limitations General appearance: Present alert and in no apparent distress Head Head exam: Present atraumatic Eye Eye exam: Present normal appearance, PERRL and EOMI ENT ENT exam: Present normal exam, normal oropharynx and mucous membranes moist Neck Neck exam: Present normal inspection, full ROM and trachea midline Chest Chest inspection: Present normal inspection and symmetric chest wall rise Respiratory Respiratory exam: Present normal lung sounds bilaterally Extremities Exam Extremities exam: Present normal inspection and full ROM (There is decreased range of motion secondary to subjective pain. The extremities are symmetrical bilaterally) Back Exam Back exam: Present normal inspection and full ROM Neurological Exam Neurological exam: Present alert and oriented X3 Psychiatric Psychiatric exam: Present normal affect and normal mood Skin Skin exam: Present warm, dry, intact and normal color Course Course Course Narrative: Patient will have ibuprofen 600 mg to be consumed p.o. and then he will be discharged with instructions to follow-up with primary care physician within a week or sooner if worse or not better. Quality Measures none (NA) Orders NA Vital Signs Vital signs: Vital Signs Temperature 98 F 07/02/25 16:05 Pulse Rate 78 07/02/25 16:05 Respiratory Rate 16 07/02/25 16:05 Blood Pressure 124/77 07/02/25 16:05 Pulse Oximetry (%) 99 07/02/25 16:05 Extremity Problem MDM Narrative MDM Narrative:: Patient will be discharged in no apparent distress. He is discharged to facility that will help him recuperate. This was with the help of the social science professor. Patient data External records reviewed:: Other (specify) (NA) Clinical information provided by:: none (NA) Social determinants that could affect healthcare access:: none (NA) Patient has the following chronic illnesses:: NA How is presenting disease/condition affected by chronic disease/condition?: no chronic disease (NA) Evaluation data The following diagnostics were reviewed and interpreted by me:: other (specify) (NA) Lab and/or radiology exams considered but not ordered:: NA Interpretation Summary: NA Medications / Prescriptions Medications or Prescriptions considered but not ordered:: NA Medication administrations:: NA Consultations Consultation(s) initiated? (list below): No Diagnosis Extremity Problem Differential Diagnosis: gout, superficial thrombophlebitis, deep venous thrombosis of upper extremity and lower extremity edema Most likely diagnosis given after review of the tests above:: There were no tests associated with this visit Admission Indicated Admission indicated?: not indicated Admission Request Was there a request for admission?: No Disposition Plan Disposition Plan: Discharge Discharge Attestation Discharge Attestation: The patient and all family members were given an opportunity to ask questions and understood the discharge instructions. Discharge instructions specifically effects, indications for sooner follow up or return to the emergency department, and the expected course of current diagnosis. Patient condition: Stable Discharge Plan Plan Patient Disposition: HOME (Self Care) Discharge Disposition comment: Discharge in no apparent distress Patient condition on transfer: Stable Prescriptions/Referrals Prescriptions/Med Rec: No Action naproxen 500 mg tablet 500 mg PO BID PRN (Reason: pain) Qty: 30 0RF cyclobenzaprine 5 mg tablet 5 mg PO TID PRN (Reason: muscle spasm) Qty: 30 0RF naproxen 500 mg tablet 500 mg PO BID PRN (Reason: pain) Qty: 30 0RF baclofen 10 mg tablet 10 mg PO BID PRN (Reason: muscle spasm) Qty: 30 0RF ibuprofen 800 mg tablet 800 mg PO TID PRN (Reason: pain) Qty: 30 0RF ibuprofen 800 mg tablet 800 mg PO TID PRN (Reason: pain) Qty: 30 0RF ibuprofen 600 mg tablet 600 mg PO Q6H PRN (Reason: pain) Qty: 30 0RF ibuprofen 600 mg tablet 600 mg PO Q8H PRN (Reason: pain) Qty: 20 0RF acetaminophen 500 mg capsule 500 mg PO Q6H PRN (Reason: pain) Qty: 30 0RF lidocaine [Lidoderm] 5 % adhesive patch,medicated 2 patch topical QDAY PRN (Reason: pain) Qty: 30 0RF Rx Instructions: leave on most painful area for up to 12 hrs cyclobenzaprine 5 mg tablet 5 mg PO TID PRN (Reason: muscle spasm) Qty: 15 0RF naproxen 500 mg tablet 500 mg PO BID PRN (Reason: pain) Qty: 14 0RF sulfamethoxazole-trimethoprim [Bactrim DS] 800-160 mg tablet 1 tab PO BID Qty: 14 0RF naproxen 500 mg tablet 500 mg PO BID PRN (Reason: pain) Qty: 30 0RF tamsulosin [Flomax] 0.4 mg capsule 0.4 mg PO QDAY Qty: 30 0RF ibuprofen 600 mg tablet 600 mg PO Q6H PRN (Reason: pain) Qty: 30 0RF methocarbamol 500 mg tablet 1,000 mg PO Q8H PRN (Reason: pain) Qty: 30 0RF naproxen [Naprosyn] 500 mg tablet 500 mg PO BID Qty: 14 0RF ibuprofen 600 mg tablet 600 mg PO Q6H PRN (Reason: fever or pain) Qty: 30 0RF cyclobenzaprine 5 mg tablet 5 mg PO TID PRN (Reason: muscle spasm) Qty: 14 0RF naproxen 500 mg tablet 500 mg PO BID PRN (Reason: pain) Qty: 30 0RF cyclobenzaprine 5 mg tablet 5 mg PO TID PRN (Reason: muscle spasm) Qty: 30 0RF acetaminophen 500 mg capsule 500 mg PO Q6H PRN (Reason: pain) Qty: 30 0RF Referrals: Lavell (PCP)Cody MD [Primary Care Provider] - In 1 week Problem List Clinical Impression: Chronic leg pain Patient/Caregiver Discharge Instructions Discharge Activity: activity as tolerated Education Materials: Chronic Pain Therapies Mind Body, ED Chronic Pain Print Language: Mongolian Stand Alone Forms: [employer] Info., Patient Portal Info Letter PA/OUTBOARD MOTOR ASSEMBLER Supervising Physician PA/OUTBOARD MOTOR ASSEMBLER Supervising Physician: MAL TAYLOR Attestation MD Attestation The patient was seen by the midlevel practitioner. I, the co-signing physician, was present during the entire ER visit. While I did not physically examine the patient, I was available for consultation as needed. I agree with the plan and documentation.
--- NOTE | 2025-07-02 15:57 | PC.CC ---
Patient is a 45 year-old male who presents to the hospital for leg pain. SCALE MECHANICEmilie and DEVIWAnna made [id number] contact with patient. SCALE MECHANIC introduced self, role, and reason for visit. Patient appeared alert and oriented to self, location, and situation. SCALE MECHANIC discussed limits of confidentiality. Patient was pleasant and engaged in initial assessment. Patient reports his medical decision maker is his daughter, Federico Loera . Patient confirmed he is homeless. Patient reports he is able to ambulate independently and complete his own ADLs. Patient reports he does not require any DME. SCALE MECHANIC explored with patient what happen on Monday why he left [facility] on Monday. Patient reports he soiled himself because he ate something bad and was kicked out. Patient provided verbal consent to make telephone contact with his daughter Federico who confirmed patient has been homeless for a few years and family has attempted to help him multiple time but patient refuses help. She reports that patient has been taken to multiple residential substances abuse facilities and patient has not completed treatment. SCALE MECHANIC inquired of patient what he would like to go upon being discharged. Patient reports he would like a ride to [facility]. SCALE MECHANIC to arrange transportation to [facility] for the patient upon discharge.
[2025-07-02 16:05] VITALS: BP 124/77; PULSE 78; RESP 16; TEMP 36.6; O2SAT 99
== END 2025-07-02 16:06 | disposition home or self-care (01) ==
PROVIDERS: Emergency Provider Family Medicine; PCP Family Medicine
DX: G89.29 Other chronic pain (principal); M79.604 Pain in right leg
CPT/HCPCS: 99282

== ENCOUNTER 2025-07-03 01:43 | Emergency (ER) | payer MEDICAID, SELFPAY ==
[2025-07-03 03:19] VITALS: BP 110/80; PULSE 92; RESP 17; TEMP 36.8; O2SAT 100
--- NOTE | 2025-07-03 03:29 | EDNOTE_ITS ---
ED General RME/HPI General Chief complaint: General Adult/Misc Complain Stated complaint: LEG PAIN Arrival date/time: 07/03/25 01:43 RME / HPI RME / HPI narrative: 45-year-old male with PMH of CVA with residual R sided deficits and very well- known to the emergency room comes in today due to chronic leg pain. Patient states that his leg is having a lot of pain 10 out of 10. Otherwise has no other complaints at this time. Patient came in yesterday for similar symptoms twice. Denies having any chest pain, abdominal pain, nausea, vomiting, recent trauma, change in bowel movement, or any headaches. Admits to using meth 4 days ago, denies any smoking alcohol. Related Data Previous Rx's ?Medication ?Instructions ?Recorded sulfamethoxazole 800 1 tab PO BID #14 tabs mg-trimethoprim 160 mg tablet (Bactrim DS) cyclobenzaprine 5 mg tablet 5 mg PO TID PRN muscle spa sm #30 07/23/23 tabs naproxen 500 mg tablet 500 mg PO BID PRN pain #30 t abs 07/23/23 naproxen 500 mg tablet 500 mg PO BID PRN pain #30 t abs 08/08/23 tamsulosin 0.4 mg capsule (Flomax) 0.4 mg PO QDAY #30 caps 08/08/23 baclofen 10 mg tablet 10 mg PO BID PRN muscle spas m #30 08/14/23 tabs naproxen 500 mg tablet 500 mg PO BID PRN pain #30 t abs 08/14/23 ibuprofen 800 mg tablet 800 mg PO TID PRN pain #30 t abs 08/28/23 ibuprofen 600 mg tablet 600 mg PO Q6H PRN pain #30 t abs 01/27/24 methocarbamol 500 mg tablet 1,000 mg (2 x 500 mg) PO Q 8H PRN 01/27/24 pain #30 tabs naproxen 500 mg tablet (Naprosyn) 500 mg PO BID #14 ta bs 03/15/24 ibuprofen 800 mg tablet 800 mg PO TID PRN pain #30 t abs 04/02/24 cyclobenzaprine 5 mg tablet 5 mg PO TID PRN muscle spa sm #14 04/07/24 tabs ibuprofen 600 mg tablet 600 mg PO Q6H PRN fever or p ain 04/07/24 #30 tabs ibuprofen 600 mg tablet 600 mg PO Q6H PRN pain #30 t abs 04/07/24 cyclobenzaprine 5 mg tablet 5 mg PO TID PRN muscle spa sm #30 04/11/24 tabs naproxen 500 mg tablet 500 mg PO BID PRN pain #30 t abs 04/11/24 ibuprofen 600 mg tablet 600 mg PO Q8H PRN pain #20 t abs 11/03/24 acetaminophen 500 mg capsule 500 mg PO Q6H PRN pain #3 0 caps 12/03/24 acetaminophen 500 mg capsule 500 mg PO Q6H PRN pain #3 0 caps 12/15/24 cyclobenzaprine 5 mg tablet 5 mg PO TID PRN muscle spa sm #15 12/20/24 tabs lidocaine 5 % topical patch 2 patch topical QDAY PRN p ain #30 12/20/24 (Lidoderm) ea naproxen 500 mg tablet 500 mg PO BID PRN pain #14 t abs 04/04/25 Allergies Allergy/AdvReac Type Severity Reaction Status Date / Time No Known Allergies Allergy Verified 07/02/25 14:18 Review of Systems Review of Systems Systems Reviewed: All systems reviewed, normal except as documented Past Medical History Past Medical History NEUROLOGIC: Positive Cerebrovascular Accident; Negative Neurological Disorders CARDIAC: Positive Myocardial Infarction and Hypercholesterolemia; Negative Cardiac Disorders or Congestive Heart Failure RESPIRATORY: Negative Chronic Obstructive Pulmonary Disease (COPD) or Asthma GASTROINTESTINAL: Negative Gastrointestinal Disorders GENITOURINARY: Negative Genitourinary Disorders or Renal Disease MUSCULOSKELETAL: Negative Musculoskeletal Disorders ENDOCRINE: Negative Endocrine Disorders, Diabetes Mellitus Type 1 or Diabetes Mellitus Type 2 HEMATOLOGIC: Negative Blood Disorders or Sickle Cell Disease OTHER HISTORY: Negative Autoimmune Disease or Clostridium Difficile Social History SMOKING STATUS: Current some day smoker SUBSTANCE USE: methamphetamine ED Exam Narrative Physical exam: Gen: A&O X 3, NAD, disheveled HEENT: NCAT, EOMI, Pupils reactive SAMI, not icteric. External ears normal. No rhinorrhea. Moist mucous membranes. Neck: Supple, full range of motion, no observable masses, No meningeal sign. Lungs: No Respiratory distress, clear bilateral. CV: RRR, no murmurs. Abdomen: Soft, nondistended, No rebound tenderness. MSK: No joint swelling, no redness, peripheral pulses presents, lumbar with no edema no peripheral edema. Skin: No rashes, petechiae, lesions. multiple excoriations SAMI LE and UE. Neuro: Patient has some right-sided weakness residual from previous CVA. Otherwise no new neurological deficits appreciated. Able to move all extremities. Sensory intact. Psych: Cooperative, flat affect Course Quality Measures none Vital Signs Vital signs: Vital Signs Temperature 98.2 F 07/03/25 03:19 Pulse Rate 92 07/03/25 03:19 Respiratory Rate 17 07/03/25 03:19 Blood Pressure 110/80 07/03/25 03:19 Pulse Oximetry (%) 100 07/03/25 03:19 Oxygen Delivery Method Room Air 07/03/25 03:19 Discharge Plan Plan Patient Disposition: HOME (Self Care) Prescriptions/Referrals Prescriptions/Med Rec: No Action naproxen 500 mg tablet 500 mg PO BID PRN (Reason: pain) Qty: 30 0RF cyclobenzaprine 5 mg tablet 5 mg PO TID PRN (Reason: muscle spasm) Qty: 30 0RF naproxen 500 mg tablet 500 mg PO BID PRN (Reason: pain) Qty: 30 0RF baclofen 10 mg tablet 10 mg PO BID PRN (Reason: muscle spasm) Qty: 30 0RF ibuprofen 800 mg tablet 800 mg PO TID PRN (Reason: pain) Qty: 30 0RF ibuprofen 800 mg tablet 800 mg PO TID PRN (Reason: pain) Qty: 30 0RF ibuprofen 600 mg tablet 600 mg PO Q6H PRN (Reason: pain) Qty: 30 0RF ibuprofen 600 mg tablet 600 mg PO Q8H PRN (Reason: pain) Qty: 20 0RF acetaminophen 500 mg capsule 500 mg PO Q6H PRN (Reason: pain) Qty: 30 0RF lidocaine [Lidoderm] 5 % adhesive patch,medicated 2 patch topical QDAY PRN (Reason: pain) Qty: 30 0RF Rx Instructions: leave on most painful area for up to 12 hrs cyclobenzaprine 5 mg tablet 5 mg PO TID PRN (Reason: muscle spasm) Qty: 15 0RF naproxen 500 mg tablet 500 mg PO BID PRN (Reason: pain) Qty: 14 0RF sulfamethoxazole-trimethoprim [Bactrim DS] 800-160 mg tablet 1 tab PO BID Qty: 14 0RF naproxen 500 mg tablet 500 mg PO BID PRN (Reason: pain) Qty: 30 0RF tamsulosin [Flomax] 0.4 mg capsule 0.4 mg PO QDAY Qty: 30 0RF ibuprofen 600 mg tablet 600 mg PO Q6H PRN (Reason: pain) Qty: 30 0RF methocarbamol 500 mg tablet 1,000 mg PO Q8H PRN (Reason: pain) Qty: 30 0RF naproxen [Naprosyn] 500 mg tablet 500 mg PO BID Qty: 14 0RF ibuprofen 600 mg tablet 600 mg PO Q6H PRN (Reason: fever or pain) Qty: 30 0RF cyclobenzaprine 5 mg tablet 5 mg PO TID PRN (Reason: muscle spasm) Qty: 14 0RF naproxen 500 mg tablet 500 mg PO BID PRN (Reason: pain) Qty: 30 0RF cyclobenzaprine 5 mg tablet 5 mg PO TID PRN (Reason: muscle spasm) Qty: 30 0RF acetaminophen 500 mg capsule 500 mg PO Q6H PRN (Reason: pain) Qty: 30 0RF Referrals: No Primary/Family,Physician [Primary Care Provider] - In 1 week Problem List Clinical Impression: Chronic leg pain Patient/Caregiver Discharge Instructions Other Activity Instructions:: Patient will need close follow-up with primary care physician and will need outpatient referral for pain specialist. Recommend taking Tylenol every 6 hours as needed for pain for the next 2 or 3 days. Come back to the ER if symptoms persist or worsen. Education Materials: Understanding Chronic Pain Print Language: Portuguese Stand Alone Forms: [employer] Award Info., Patient Portal Info Letter MDM Narrative MDM hospital course: Patient was seen and evaluated upon arrival. Patient does not appear to be in acute distress. At this time patient stable enough to be discharged. Case disclosed with Attending Dr. Pierre Talley PGY2 Disclaimer: Even though this this note was dictated by speech recognition and even though it was carefully revised there may still be minor errors in practice physician due to voice recognition software.
== END 2025-07-03 03:42 | disposition home or self-care (01) ==
PROVIDERS: Emergency Provider Emergency Medicine
DX: G89.29 Other chronic pain (principal); M79.606 Pain in leg, unspecified
CPT/HCPCS: 99282

== ENCOUNTER 2025-07-03 05:07 | Emergency (ER) | payer MEDICAID, SELFPAY ==
[2025-07-03 05:29] VITALS: BP 132/94; PULSE 90; RESP 18; TEMP 36.9; O2SAT 98
== END 2025-07-03 08:23 | disposition left against medical advice (07) ==
PROVIDERS: Emergency Provider Family Medicine; PCP Family Medicine
DX: Z53.21 Procedure and treatment not carried out due to patient leaving prior to being seen by health care provider (principal)
CPT/HCPCS: 99282

== ENCOUNTER 2025-07-03 09:03 | Emergency (ER) | payer MEDICAID, SELFPAY ==
[2025-07-03 09:09] VITALS: PULSE 82; RESP 18; O2SAT 98
[2025-07-03 09:23] VITALS: BP 144/92; PULSE 73; RESP 16; TEMP 36.9; O2SAT 98; BMI 27.1
--- NOTE | 2025-07-03 09:28 | EDNOTE_ITS ---
ED Extremity Problem RME/HPI General Chief complaint: Extremity Problem,Nontraumatic Stated complaint: LEG PAIN Time Seen by Provider: 07/03/25 09:10 Arrival date/time: 07/03/25 09:03 45-year-old male with no significant medical problems presents to the Emergency Department today for complaint of bilateral leg pain patient is homeless well- known to me patient reports he is really here because he would like a sandwich and some to drink as well as a Toradol shot Limitations: no limitations Related Data Previous Rx's ?Medication ?Instructions ?Recorded sulfamethoxazole 800 1 tab PO BID #14 tabs mg-trimethoprim 160 mg tablet (Bactrim DS) cyclobenzaprine 5 mg tablet 5 mg PO TID PRN muscle spa sm #30 07/23/23 tabs naproxen 500 mg tablet 500 mg PO BID PRN pain #30 t abs 07/23/23 naproxen 500 mg tablet 500 mg PO BID PRN pain #30 t abs 08/08/23 tamsulosin 0.4 mg capsule (Flomax) 0.4 mg PO QDAY #30 caps 08/08/23 baclofen 10 mg tablet 10 mg PO BID PRN muscle spas m #30 08/14/23 tabs naproxen 500 mg tablet 500 mg PO BID PRN pain #30 t abs 08/14/23 ibuprofen 800 mg tablet 800 mg PO TID PRN pain #30 t abs 08/28/23 ibuprofen 600 mg tablet 600 mg PO Q6H PRN pain #30 t abs 01/27/24 methocarbamol 500 mg tablet 1,000 mg (2 x 500 mg) PO Q 8H PRN 01/27/24 pain #30 tabs naproxen 500 mg tablet (Naprosyn) 500 mg PO BID #14 ta bs 03/15/24 ibuprofen 800 mg tablet 800 mg PO TID PRN pain #30 t abs 04/02/24 cyclobenzaprine 5 mg tablet 5 mg PO TID PRN muscle spa sm #14 04/07/24 tabs ibuprofen 600 mg tablet 600 mg PO Q6H PRN fever or p ain 04/07/24 #30 tabs ibuprofen 600 mg tablet 600 mg PO Q6H PRN pain #30 t abs 04/07/24 cyclobenzaprine 5 mg tablet 5 mg PO TID PRN muscle spa sm #30 04/11/24 tabs naproxen 500 mg tablet 500 mg PO BID PRN pain #30 t abs 04/11/24 ibuprofen 600 mg tablet 600 mg PO Q8H PRN pain #20 t abs 11/03/24 acetaminophen 500 mg capsule 500 mg PO Q6H PRN pain #3 0 caps 12/03/24 acetaminophen 500 mg capsule 500 mg PO Q6H PRN pain #3 0 caps 12/15/24 cyclobenzaprine 5 mg tablet 5 mg PO TID PRN muscle spa sm #15 12/20/24 tabs lidocaine 5 % topical patch 2 patch topical QDAY PRN p ain #30 12/20/24 (Lidoderm) ea naproxen 500 mg tablet 500 mg PO BID PRN pain #14 t abs 04/04/25 Allergies Allergy/AdvReac Type Severity Reaction Status Date / Time No Known Allergies Allergy Verified 07/03/25 13:24 Review of Systems Review of Systems Systems Reviewed: All systems reviewed, normal except as documented Constitutional Constitutional: Reports system reviewed and no additional complaints, except as documented, Denies fever(s) and Denies headache(s) Eyes Eyes: Reports system reviewed and no additional complaints, except as documented and Denies blurry vision ENT Ears, Nose, Mouth, and Throat: Reports system reviewed and no additional complaints, except as documented, Denies headache(s), Denies nasal congestion and Denies nasal discharge Cardiovascular Cardiovascular: Reports system reviewed and no additional complaints, except as documented, Denies chest pain and Denies dyspnea Respiratory Respiratory: Reports system reviewed and no additional complaints, except as documented, Denies chest congestion, Denies cough and Denies dyspnea Gastrointestinal Gastrointestinal: Reports system reviewed and no additional complaints, except as documented and Denies abdominal pain Musculoskeletal Musculoskeletal: Reports system reviewed and no additional complaints, except as documented, Denies abnormal gait, Denies arthralgias, Denies deformity, Denies numbness, Denies stiffness and Denies tingling Integumentary/Breasts Skin/Breast: Reports system reviewed and no additional complaints, except as documented and Denies rash Neurologic Neurologic: Reports system reviewed and no additional complaints, except as documented, Reports as per HPI, Denies abnormal gait, Denies headache(s), Denies numbness and Denies tingling Past Medical History Past Medical History NEUROLOGIC: Positive Cerebrovascular Accident; Negative Neurological Disorders CARDIAC: Positive Myocardial Infarction and Hypercholesterolemia; Negative Cardiac Disorders or Congestive Heart Failure RESPIRATORY: Negative Chronic Obstructive Pulmonary Disease (COPD) or Asthma GASTROINTESTINAL: Negative Gastrointestinal Disorders GENITOURINARY: Negative Genitourinary Disorders or Renal Disease MUSCULOSKELETAL: Negative Musculoskeletal Disorders ENDOCRINE: Negative Endocrine Disorders, Diabetes Mellitus Type 1 or Diabetes Mellitus Type 2 HEMATOLOGIC: Negative Blood Disorders or Sickle Cell Disease OTHER HISTORY: Negative Autoimmune Disease or Clostridium Difficile Social History SMOKING STATUS: Current every day smoker SUBSTANCE USE: methamphetamine ED Exam General Limitations: Present no limitations General appearance: Present alert and in no apparent distress Head Head exam: Present atraumatic Eye Eye exam: Present normal appearance, PERRL and EOMI ENT ENT exam: Present normal exam, normal oropharynx and mucous membranes moist Neck Neck exam: Present normal inspection, full ROM and trachea midline Chest Chest inspection: Present normal inspection and symmetric chest wall rise Respiratory Respiratory exam: Present normal lung sounds bilaterally Cardiovascular Cardiovascular exam: Present regular rate, normal rhythm and normal heart sounds Abdominal Exam Abdominal exam: Present soft and normal bowel sounds Extremities Exam Extremities exam: Present full ROM, tenderness, normal capillary refill and other (Bilateral leg pain) Back Exam Back exam: Present normal inspection and full ROM Neurological Exam Neurological exam: Present alert, oriented X3, CN II-XII intact and reflexes normal Psychiatric Psychiatric exam: Present normal affect and normal mood Skin Skin exam: Present warm, dry, intact and normal color Course Quality Measures none Orders Category Date Time Status Ketorolac Inj [Toradol Inj] Med 07/03/25 09:22 Discontinued 30 mg IM X1 ONE Vital Signs Vital signs: Vital Signs Temperature 98.5 F 07/03/25 09:23 Pulse Rate 73 07/03/25 09:23 Respiratory Rate 16 07/03/25 09:23 Blood Pressure 144/92 H 07/03/25 09:23 Pulse Oximetry (%) 98 07/03/25 09:23 Oxygen Delivery Method Room Air 07/03/25 09:23 O2 saturation 98% on room air within normal limits Extremity Problem MDM Narrative MDM Narrative:: 45-year-old male with no significant medical problems presents to the Emergency Department today for complaint of bilateral leg pain patient is homeless well- known to me patient reports he is really here because he would like a sandwich and some to drink as well as a Toradol shot On exam patient well-appearing does not appear ill or toxic in no acute distress Patient has multiple visits here to the emergency department patient well-known to me. Patient reports he would like some food. Patient improved with the Toradol shot Patient discharged home in no distress to follow-up with primary care doctor in the next 24 to 48 hours and for any worsening symptoms to return to the ER immediately Patient data External records reviewed:: [facility] [place] previous records Clinical information provided by:: patient Social determinants that could affect healthcare access:: none Patient has the following chronic illnesses:: See history How is presenting disease/condition affected by chronic disease/condition?: caused by Evaluation data The following diagnostics were reviewed and interpreted by me:: other (specify) Lab and/or radiology exams considered but not ordered:: Considered not indicated Interpretation Summary: N/A Medications / Prescriptions Medications or Prescriptions considered but not ordered:: Given Medication administrations:: Medication Administration History Discontinued Medications Ketorolac Tromethamine (Ketorolac Inj 30 Mg/Ml Vial) 30 mg IM X1 ONE Stop: 07/03/25 09:23 Last Admin: 07/03/25 09:31 Dose: 30 mg Documented By: Given Consultations Consultation(s) initiated? (list below): No Diagnosis Extremity Problem Differential Diagnosis: other (Bilateral leg pain, homelessness, methamphetamine use) Most likely diagnosis given after review of the tests above:: Homeless, drug abuse leg pain chronic Admission Indicated Admission indicated?: not indicated Admission Request Was there a request for admission?: No Disposition Plan Disposition Plan: Discharge Discharge Attestation Discharge Attestation: The patient and all family members were given an opportunity to ask questions and understood the discharge instructions. Discharge instructions specifically effects, indications for sooner follow up or return to the emergency department, and the expected course of current diagnosis. Patient condition: Stable Discharge Plan Plan Patient Disposition: Elopement Discharge Disposition comment: Stable Prescriptions/Referrals Prescriptions/Med Rec: No Action naproxen 500 mg tablet 500 mg PO BID PRN (Reason: pain) Qty: 30 0RF cyclobenzaprine 5 mg tablet 5 mg PO TID PRN (Reason: muscle spasm) Qty: 30 0RF naproxen 500 mg tablet 500 mg PO BID PRN (Reason: pain) Qty: 30 0RF baclofen 10 mg tablet 10 mg PO BID PRN (Reason: muscle spasm) Qty: 30 0RF ibuprofen 800 mg tablet 800 mg PO TID PRN (Reason: pain) Qty: 30 0RF ibuprofen 800 mg tablet 800 mg PO TID PRN (Reason: pain) Qty: 30 0RF ibuprofen 600 mg tablet 600 mg PO Q6H PRN (Reason: pain) Qty: 30 0RF ibuprofen 600 mg tablet 600 mg PO Q8H PRN (Reason: pain) Qty: 20 0RF acetaminophen 500 mg capsule 500 mg PO Q6H PRN (Reason: pain) Qty: 30 0RF lidocaine [Lidoderm] 5 % adhesive patch,medicated 2 patch topical QDAY PRN (Reason: pain) Qty: 30 0RF Rx Instructions: leave on most painful area for up to 12 hrs cyclobenzaprine 5 mg tablet 5 mg PO TID PRN (Reason: muscle spasm) Qty: 15 0RF naproxen 500 mg tablet 500 mg PO BID PRN (Reason: pain) Qty: 14 0RF sulfamethoxazole-trimethoprim [Bactrim DS] 800-160 mg tablet 1 tab PO BID Qty: 14 0RF naproxen 500 mg tablet 500 mg PO BID PRN (Reason: pain) Qty: 30 0RF tamsulosin [Flomax] 0.4 mg capsule 0.4 mg PO QDAY Qty: 30 0RF ibuprofen 600 mg tablet 600 mg PO Q6H PRN (Reason: pain) Qty: 30 0RF methocarbamol 500 mg tablet 1,000 mg PO Q8H PRN (Reason: pain) Qty: 30 0RF naproxen [Naprosyn] 500 mg tablet 500 mg PO BID Qty: 14 0RF ibuprofen 600 mg tablet 600 mg PO Q6H PRN (Reason: fever or pain) Qty: 30 0RF cyclobenzaprine 5 mg tablet 5 mg PO TID PRN (Reason: muscle spasm) Qty: 14 0RF naproxen 500 mg tablet 500 mg PO BID PRN (Reason: pain) Qty: 30 0RF cyclobenzaprine 5 mg tablet 5 mg PO TID PRN (Reason: muscle spasm) Qty: 30 0RF acetaminophen 500 mg capsule 500 mg PO Q6H PRN (Reason: pain) Qty: 30 0RF Referrals: No Primary/Family,Physician [Primary Care Provider] - In 1 week Problem List Clinical Impression: Chronic pain, Homeless Patient/Caregiver Discharge Instructions Education Materials: ED Chronic Pain Additional Instructions: Please follow up with your primary care doctor in the next 24-48hrs for any worsening symptoms return here immediately Print Language: Korean PA/HYDROELECTRIC PLANT ELECTRICAL ENGINEER Supervising Physician PA/HYDROELECTRIC PLANT ELECTRICAL ENGINEER Supervising Physician: dr yaya TAYLOR Attestation MD Attestation The patient was seen by the midlevel practitioner. I, the co-signing physician, was present during the entire ER visit. While I did not physically examine the patient, I was available for consultation as needed. I agree with the plan and documentation.
[2025-07-03] MEDS: KETOROLAC INJ 30 MG/ML VIAL IM (09:31)
--- NOTE | 2025-07-03 10:08 | PC.CC ---
MANAGER OF BUSINESS OPERATIONS, Emilie made face to face contact with patient as he was requesting to speak to this creative services writer. Patient reports he would like to go back to rehab MANAGER OF BUSINESS OPERATIONS explained to patient that he was sent twice to the rehab facility and has failed. MANAGER OF BUSINESS OPERATIONS explored with patient how he was able to get back from [place] to [place] last night after he had requested an Uber to [place]. Patient reports that he took the [facility] back to [place]. Patient stated he would like to go back to the rehab MANAGER OF BUSINESS OPERATIONS informed the patient that if he gets there early enough today he might be able to get a bed today. MANAGER OF BUSINESS OPERATIONS offered the patient transportation to a local nursing home which the patient refused.
--- NOTE | 2025-07-03 11:02 | PC.NURSE ---
Spoke to patient for patient safety related concerns as patient has been frequently coming to the ED almost everyday for about 6 months. Prior to speaking with patient, Morena, Patient Safety Liaison and this television script writer spoke to Emilie PADRON about current situation. Patient was waiting out in the front of the ED sitting in a wheelchair, Emilie asked patient if it was ok for Morena and this television script writer to speak with him, and he agreed. Introductions were made, patient appears [id number], attempted to ask patient about facilities he was previously placed in, reason for coming into the ED almost everyday, but gave very brief answers such as, got kicked out... and my leg hurts.. . Mentioned to patient that there are shelters locally that school social worker can assist him with, patient then proceeded to state that he has a friend in [place] trying to get him into a facility there called [facility] . Asked patient if there was a way to reach his friend to see if we can assist, but patient stated that they only communicate through facebook, and [place]. Asked patient if he would be interested in facilities more local, but stated they dont have any here . Informed him that school social worker would be able to assist, but he would also need to comply. At this point, patient did not seem to be engaged in the conversation, patient was asked if he had any questions for Morena or this television script writer, patient had no questions.
== END 2025-07-03 12:38 | disposition left against medical advice (07) ==
PROVIDERS: Emergency Provider Family Medicine
DX: M79.605 Pain in left leg (principal); M79.604 Pain in right leg; Z59.00 Homelessness unspecified; G89.29 Other chronic pain
CPT/HCPCS: 96372; 99282; J1885

== ENCOUNTER 2025-07-03 13:16 | Emergency (ER) | payer MEDICAID, SELFPAY ==
[2025-07-03 13:20] VITALS: PULSE 80; RESP 17; O2SAT 97
[2025-07-03 13:47] VITALS: BP 137/89; PULSE 85; RESP 18; TEMP 37.1; O2SAT 98
--- NOTE | 2025-07-03 13:47 | PD.EDEXREM ---
ED Extremity Problem RME/HPI General Chief complaint: Extremity Problem,Nontraumatic Stated complaint: LEG PAIN Time Seen by Provider: 07/03/25 13:19 Arrival date/time: 07/03/25 13:16 RME / HPI RME / HPI Narrative: 45-year-old male patient who is known to us, homelessness, coming to the emergency room 3-4 times a day by ambulance, came in for evaluation regarding bilateral lower leg pain. Patient's been complaining of bilateral lower leg pain for several months, patient is ambulatory denies any trauma denies any redness denies any swelling. Patient denies any other complaints. Last week patient was placed in a facility for few days and was released back to the streets. Related Data Previous Rx's ?Medication ?Instructions ?Recorded sulfamethoxazole 800 1 tab PO BID #14 tabs 03/09/23 mg-trimethoprim 160 mg tablet (Bactrim DS) cyclobenzaprine 5 mg tablet 5 mg PO TID PRN muscle spasm #30 07/23/23 tabs naproxen 500 mg tablet 500 mg PO BID PRN pain #30 tabs 07/23/23 naproxen 500 mg tablet 500 mg PO BID PRN pain #30 tabs 08/08/23 tamsulosin 0.4 mg capsule (Flomax) 0.4 mg PO QDAY #30 caps 08/08/23 baclofen 10 mg tablet 10 mg PO BID PRN muscle spasm #30 08/14/23 tabs naproxen 500 mg tablet 500 mg PO BID PRN pain #30 tabs 08/14/23 ibuprofen 800 mg tablet 800 mg PO TID PRN pain #30 tabs 08/28/23 ibuprofen 600 mg tablet 600 mg PO Q6H PRN pain #30 tabs 01/27/24 methocarbamol 500 mg tablet 1,000 mg (2 x 500 mg) PO Q8H PRN 01/27/24 pain #30 tabs naproxen 500 mg tablet (Naprosyn) 500 mg PO BID #14 tabs 03/15/24 ibuprofen 800 mg tablet 800 mg PO TID PRN pain #30 tabs 04/02/24 cyclobenzaprine 5 mg tablet 5 mg PO TID PRN muscle spasm #14 04/07/24 tabs ibuprofen 600 mg tablet 600 mg PO Q6H PRN fever or pain 04/07/24 #30 tabs ibuprofen 600 mg tablet 600 mg PO Q6H PRN pain #30 tabs 04/07/24 cyclobenzaprine 5 mg tablet 5 mg PO TID PRN muscle spasm #30 04/11/24 tabs naproxen 500 mg tablet 500 mg PO BID PRN pain #30 tabs 04/11/24 ibuprofen 600 mg tablet 600 mg PO Q8H PRN pain #20 tabs 11/03/24 acetaminophen 500 mg capsule 500 mg PO Q6H PRN pain #30 caps 12/03/24 acetaminophen 500 mg capsule 500 mg PO Q6H PRN pain #30 caps 12/15/24 cyclobenzaprine 5 mg tablet 5 mg PO TID PRN muscle spasm #15 12/20/24 tabs lidocaine 5 % topical patch 2 patch topical QDAY PRN pain #30 12/20/24 (Lidoderm) ea naproxen 500 mg tablet 500 mg PO BID PRN pain #14 tabs 04/04/25 Allergies Allergy/AdvReac Type Severity Reaction Status Date / Time No Known Allergies Allergy Verified 07/03/25 13:24 Review of Systems Review of Systems Narrative Review of Systems: Review of system reviewed and within normal limits except mentioned in HPI ED Exam Narrative Physical exam: VITAL SIGNS: Reviewed. GENERAL APPEARANCE: Alert and interactive, follows commands, no acute distress, unkept HEAD AND FACE: Non-traumatic. ENT: PERRL, pink conjunctivitis, eyelid no trauma, Mucous membrane moist. NECK: Supple, nontender, no nuchal rigidity. CHEST: No tenderness, no crepitus, no paradoxical movement, no retractions. LUNGS: Clear, well ventilated, symmetric, no rales, no wheezing, no ronchi, no stridor, good breath sounds bilaterally. HEART: Regular rate, regular rhythm, no murmur, no gallops. ABDOMEN: Soft, positive bowel sounds, nondistended, no guarding, nontender, no rebound, no masses, RECTAL: Deferred. GENITAL: Deferred. NEUROLOGICAL: Gross motor function intact sensory function intact, Appropriate for age. MUSCULOSKELETAL: low back nontender, full range of motion. EXTREMITIES: Nontender, full range of motion. No edema bilateral lower extremity, distal neurovascular status intact bilateral lower extremity, SKIN: Color pink, dry, no rash, no lacerations, no abrasions, no contusions. LYMPHATICS: Deferred. Course Quality Measures none Vital Signs Vital signs: Vital Signs Temperature 98.7 F 07/03/25 13:47 Pulse Rate 85 07/03/25 13:47 Respiratory Rate 18 07/03/25 13:47 Blood Pressure 137/89 H 07/03/25 13:47 Pulse Oximetry (%) 98 07/03/25 13:47 Oxygen Delivery Method Room Air 07/03/25 13:47 Extremity Problem MDM Narrative MDM Narrative:: 45-year-old male patient who is known to us, homelessness, coming to the emergency room 3-4 times a day by ambulance, came in for evaluation regarding bilateral lower leg pain. Patient's been complaining of bilateral lower leg pain for several months, patient is ambulatory denies any trauma denies any redness denies any swelling. Patient denies any other complaints. Last week patient was placed in a facility for few days and was released back to the streets. Patient is stable for discharge back to street. Patient is homeless. Patient data External records reviewed:: None Clinical information provided by:: patient Social determinants that could affect healthcare access:: none Patient has the following chronic illnesses:: Homelessness How is presenting disease/condition affected by chronic disease/condition?: no chronic disease Evaluation data The following diagnostics were reviewed and interpreted by me:: other (specify) (None) Lab and/or radiology exams considered but not ordered:: None Interpretation Summary: None Medications / Prescriptions Medications or Prescriptions considered but not ordered:: None Medication administrations:: Plan Consultations Consultation(s) initiated? (list below): No Diagnosis Extremity Problem Differential Diagnosis: other (Chronic leg pain) Most likely diagnosis given after review of the tests above:: Chronic leg pain, homelessness Admission Indicated Admission indicated?: not indicated Admission Request Was there a request for admission?: No Disposition Plan Disposition Plan: Discharge Discharge Attestation Discharge Attestation: Patient condition: Stable Discharge Plan Plan Patient Disposition: HOME (Self Care) Discharge Disposition comment: Stable Prescriptions/Referrals Prescriptions/Med Rec: No Action naproxen 500 mg tablet 500 mg PO BID PRN (Reason: pain) Qty: 30 0RF cyclobenzaprine 5 mg tablet 5 mg PO TID PRN (Reason: muscle spasm) Qty: 30 0RF naproxen 500 mg tablet 500 mg PO BID PRN (Reason: pain) Qty: 30 0RF baclofen 10 mg tablet 10 mg PO BID PRN (Reason: muscle spasm) Qty: 30 0RF ibuprofen 800 mg tablet 800 mg PO TID PRN (Reason: pain) Qty: 30 0RF ibuprofen 800 mg tablet 800 mg PO TID PRN (Reason: pain) Qty: 30 0RF ibuprofen 600 mg tablet 600 mg PO Q6H PRN (Reason: pain) Qty: 30 0RF ibuprofen 600 mg tablet 600 mg PO Q8H PRN (Reason: pain) Qty: 20 0RF acetaminophen 500 mg capsule 500 mg PO Q6H PRN (Reason: pain) Qty: 30 0RF lidocaine [Lidoderm] 5 % adhesive patch,medicated 2 patch topical QDAY PRN (Reason: pain) Qty: 30 0RF Rx Instructions: leave on most painful area for up to 12 hrs cyclobenzaprine 5 mg tablet 5 mg PO TID PRN (Reason: muscle spasm) Qty: 15 0RF naproxen 500 mg tablet 500 mg PO BID PRN (Reason: pain) Qty: 14 0RF sulfamethoxazole-trimethoprim [Bactrim DS] 800-160 mg tablet 1 tab PO BID Qty: 14 0RF naproxen 500 mg tablet 500 mg PO BID PRN (Reason: pain) Qty: 30 0RF tamsulosin [Flomax] 0.4 mg capsule 0.4 mg PO QDAY Qty: 30 0RF ibuprofen 600 mg tablet 600 mg PO Q6H PRN (Reason: pain) Qty: 30 0RF methocarbamol 500 mg tablet 1,000 mg PO Q8H PRN (Reason: pain) Qty: 30 0RF naproxen [Naprosyn] 500 mg tablet 500 mg PO BID Qty: 14 0RF ibuprofen 600 mg tablet 600 mg PO Q6H PRN (Reason: fever or pain) Qty: 30 0RF cyclobenzaprine 5 mg tablet 5 mg PO TID PRN (Reason: muscle spasm) Qty: 14 0RF naproxen 500 mg tablet 500 mg PO BID PRN (Reason: pain) Qty: 30 0RF cyclobenzaprine 5 mg tablet 5 mg PO TID PRN (Reason: muscle spasm) Qty: 30 0RF acetaminophen 500 mg capsule 500 mg PO Q6H PRN (Reason: pain) Qty: 30 0RF Referrals: Lavell (PCP),MD Cody [Primary Care Provider] - In 1 week Problem List Clinical Impression: Chronic pain, Homelessness Patient/Caregiver Discharge Instructions Discharge Activity: activity as tolerated Education Materials: ED Chronic Pain Additional Instructions: Thank you for the opportunity for serving you today. You are stable for discharged . You are advised to: Follow-up with your PCP in 1 to 2 days Return to ED for worsening of symptoms Take [id number] Tylenol as needed for pain Print Language: Puerto Rican Stand Alone Forms: Tami Award Info., Patient Portal Info Letter PA/SOLAR SALES REPRESENTATIVE AND ASSESSOR Supervising Physician PA/DEVYN Supervising Physician: MD Pierre
== END 2025-07-03 19:24 | disposition home or self-care (01) ==
PROVIDERS: Emergency Provider Family Medicine; PCP Family Medicine
DX: M79.662 Pain in left lower leg (principal); M79.661 Pain in right lower leg; G89.29 Other chronic pain; Z59.00 Homelessness unspecified
CPT/HCPCS: 99282

== ENCOUNTER 2025-07-03 20:32 | Emergency (ER) | payer MEDICAID, SELFPAY ==
[2025-07-03 22:49] VITALS: BP 137/80; PULSE 82; RESP 18; TEMP 36.9; O2SAT 95
--- NOTE | 2025-07-03 23:09 | PD.EDLOWEX ---
Lower Extremity Injury RME/HPI General Chief Complaint: Extremity Injury, Lower Stated Complaint: LEG PAIN Time Seen by Provider: 07/03/25 21:22 Arrival date/time: 07/03/25 20:32 RME / HPI RME / HPI Narrative: 45-year-old male patient came in for evaluation regarding bilateral lower leg pain. Patient is known to this emergency room coming for chronic leg pain. Patient today seen at least 4 times already. Patient is ambulatory. Patient is walking around barefoot. No other complaints noted. Patient is homeless Related Data Previous Rx's ?Medication ?Instructions ?Recorded sulfamethoxazole 800 1 tab PO BID #14 tabs 03/09/23 mg-trimethoprim 160 mg tablet (Bactrim DS) cyclobenzaprine 5 mg tablet 5 mg PO TID PRN muscle spasm #30 07/23/23 tabs naproxen 500 mg tablet 500 mg PO BID PRN pain #30 tabs 07/23/23 naproxen 500 mg tablet 500 mg PO BID PRN pain #30 tabs 08/08/23 tamsulosin 0.4 mg capsule (Flomax) 0.4 mg PO QDAY #30 caps 08/08/23 baclofen 10 mg tablet 10 mg PO BID PRN muscle spasm #30 08/14/23 tabs naproxen 500 mg tablet 500 mg PO BID PRN pain #30 tabs 08/14/23 ibuprofen 800 mg tablet 800 mg PO TID PRN pain #30 tabs 08/28/23 ibuprofen 600 mg tablet 600 mg PO Q6H PRN pain #30 tabs 01/27/24 methocarbamol 500 mg tablet 1,000 mg (2 x 500 mg) PO Q8H PRN 01/27/24 pain #30 tabs naproxen 500 mg tablet (Naprosyn) 500 mg PO BID #14 tabs 03/15/24 ibuprofen 800 mg tablet 800 mg PO TID PRN pain #30 tabs 04/02/24 cyclobenzaprine 5 mg tablet 5 mg PO TID PRN muscle spasm #14 04/07/24 tabs ibuprofen 600 mg tablet 600 mg PO Q6H PRN fever or pain 04/07/24 #30 tabs ibuprofen 600 mg tablet 600 mg PO Q6H PRN pain #30 tabs 04/07/24 cyclobenzaprine 5 mg tablet 5 mg PO TID PRN muscle spasm #30 04/11/24 tabs naproxen 500 mg tablet 500 mg PO BID PRN pain #30 tabs 04/11/24 ibuprofen 600 mg tablet 600 mg PO Q8H PRN pain #20 tabs 11/03/24 acetaminophen 500 mg capsule 500 mg PO Q6H PRN pain #30 caps 12/03/24 acetaminophen 500 mg capsule 500 mg PO Q6H PRN pain #30 caps 12/15/24 cyclobenzaprine 5 mg tablet 5 mg PO TID PRN muscle spasm #15 12/20/24 tabs lidocaine 5 % topical patch 2 patch topical QDAY PRN pain #30 12/20/24 (Lidoderm) ea naproxen 500 mg tablet 500 mg PO BID PRN pain #14 tabs 04/04/25 bacitracin 500 unit/gram topical 1 applic topical Q12H #28 grams 07/03/25 ointment ibuprofen 800 mg tablet 800 mg PO Q8H PRN pain #30 tabs 07/03/25 Allergies Allergy/AdvReac Type Severity Reaction Status Date / Time No Known Allergies Allergy Verified 07/03/25 13:24 Review of Systems Review of Systems Narrative Review of Systems: Review of system reviewed and within normal limits except mentioned in HPI ED Exam Narrative Physical exam: VITAL SIGNS: Reviewed. GENERAL APPEARANCE: Alert and interactive, follows commands, no acute distress, HEAD AND FACE: Non-traumatic. ENT: PERRL, pink conjunctivitis, eyelid no trauma, Mucous membrane moist. NECK: Supple, nontender, no nuchal rigidity. CHEST: No tenderness, no crepitus, no paradoxical movement, no retractions. LUNGS: Clear, well ventilated, symmetric, no rales, no wheezing, no ronchi, no stridor, good breath sounds bilaterally. HEART: Regular rate, regular rhythm, no murmur, no gallops. ABDOMEN: Soft, positive bowel sounds, nondistended, no guarding, nontender, no rebound, no masses, RECTAL: Deferred. GENITAL: Deferred. NEUROLOGICAL: Gross motor function intact sensory function intact, Appropriate for age. MUSCULOSKELETAL: low back nontender, full range of motion. EXTREMITIES: Blister noted to the bilateral lower extremity, full range of motion. SKIN: Color pink, dry, no rash, no lacerations, no abrasions, no contusions. LYMPHATICS: Deferred. Course Quality Measures none Orders Category Date Time Status Ibuprofen Tab [Motrin Tab] Med 07/03/25 23:11 Discontinued 800 mg PO X1 ONE Vital Signs Vital signs: Vital Signs Temperature 98.5 F 07/03/25 22:49 Pulse Rate 82 07/03/25 22:49 Respiratory Rate 18 07/03/25 22:49 Blood Pressure 137/80 H 07/03/25 22:49 Pulse Oximetry (%) 95 07/03/25 22:49 Oxygen Delivery Method Room Air 07/03/25 22:49 Extremity Injury, Lower MDM Narrative MDM Narrative:: 45-year-old male patient came in for evaluation regarding bilateral lower leg pain. Patient is known to this emergency room coming for chronic leg pain. Patient today seen at least 4 times already. Patient is ambulatory. Patient is walking around barefoot. No other complaints noted. Patient is homeless Patient received Motrin and the foot was wrapped with gauze. And was given socks and new pair of shoes. Patient was advised to avoid from walking around a lot. Patient data External records reviewed:: None Clinical information provided by:: patient Social determinants that could affect healthcare access:: none Patient has the following chronic illnesses:: Homelessness How is presenting disease/condition affected by chronic disease/condition?: no chronic disease Evaluation data The following diagnostics were reviewed and interpreted by me:: other (specify) (None) Lab and/or radiology exams considered but not ordered:: None Interpretation Summary: None Medications / Prescriptions Medications or Prescriptions considered but not ordered:: None Medication administrations:: Medication Administration History Discontinued Medications Ibuprofen (Ibuprofen Tab 400 Mg Tablet) 800 mg PO X1 ONE Stop: 07/03/25 23:12 None Consultations Consultation(s) initiated? (list below): No Diagnosis Extremity Injury, Lower Differential Diagnosis: other (Foot pain, foot blister, homelessness) Most likely diagnosis given after review of the tests above:: Foot blister Admission Indicated Admission indicated?: not indicated Admission Request Was there a request for admission?: No Disposition Plan Disposition Plan: Discharge Discharge Attestation Discharge Attestation: The patient and all family members were given an opportunity to ask questions and understood the discharge instructions. Discharge instructions specifically effects, indications for sooner follow up or return to the emergency department, and the expected course of current diagnosis. Patient condition: Stable Discharge Plan Plan Patient Disposition: HOME (Self Care) Discharge Disposition comment: Stable Prescriptions/Referrals Prescriptions/Med Rec: New bacitracin 500 unit/gram ointment 1 applic topical Q12H Qty: 28 0RF ibuprofen 800 mg tablet 800 mg PO Q8H PRN (Reason: pain) Qty: 30 0RF No Action naproxen 500 mg tablet 500 mg PO BID PRN (Reason: pain) Qty: 30 0RF cyclobenzaprine 5 mg tablet 5 mg PO TID PRN (Reason: muscle spasm) Qty: 30 0RF naproxen 500 mg tablet 500 mg PO BID PRN (Reason: pain) Qty: 30 0RF baclofen 10 mg tablet 10 mg PO BID PRN (Reason: muscle spasm) Qty: 30 0RF ibuprofen 800 mg tablet 800 mg PO TID PRN (Reason: pain) Qty: 30 0RF ibuprofen 800 mg tablet 800 mg PO TID PRN (Reason: pain) Qty: 30 0RF ibuprofen 600 mg tablet 600 mg PO Q6H PRN (Reason: pain) Qty: 30 0RF ibuprofen 600 mg tablet 600 mg PO Q8H PRN (Reason: pain) Qty: 20 0RF acetaminophen 500 mg capsule 500 mg PO Q6H PRN (Reason: pain) Qty: 30 0RF lidocaine [Lidoderm] 5 % adhesive patch,medicated 2 patch topical QDAY PRN (Reason: pain) Qty: 30 0RF Rx Instructions: leave on most painful area for up to 12 hrs cyclobenzaprine 5 mg tablet 5 mg PO TID PRN (Reason: muscle spasm) Qty: 15 0RF naproxen 500 mg tablet 500 mg PO BID PRN (Reason: pain) Qty: 14 0RF sulfamethoxazole-trimethoprim [Bactrim DS] 800-160 mg tablet 1 tab PO BID Qty: 14 0RF naproxen 500 mg tablet 500 mg PO BID PRN (Reason: pain) Qty: 30 0RF tamsulosin [Flomax] 0.4 mg capsule 0.4 mg PO QDAY Qty: 30 0RF ibuprofen 600 mg tablet 600 mg PO Q6H PRN (Reason: pain) Qty: 30 0RF methocarbamol 500 mg tablet 1,000 mg PO Q8H PRN (Reason: pain) Qty: 30 0RF naproxen [Naprosyn] 500 mg tablet 500 mg PO BID Qty: 14 0RF ibuprofen 600 mg tablet 600 mg PO Q6H PRN (Reason: fever or pain) Qty: 30 0RF cyclobenzaprine 5 mg tablet 5 mg PO TID PRN (Reason: muscle spasm) Qty: 14 0RF naproxen 500 mg tablet 500 mg PO BID PRN (Reason: pain) Qty: 30 0RF cyclobenzaprine 5 mg tablet 5 mg PO TID PRN (Reason: muscle spasm) Qty: 30 0RF acetaminophen 500 mg capsule 500 mg PO Q6H PRN (Reason: pain) Qty: 30 0RF Referrals: Lavell (PCP),MD Cody [Primary Care Provider] - In 1 week Problem List Clinical Impression: Blister of foot Patient/Caregiver Discharge Instructions Discharge Activity: activity as tolerated Education Materials: ED Blister (Adult) Additional Instructions: Thank you for the opportunity for serving you today. You are stable for discharged . You are advised to: Follow-up with your PCP in 1 to 2 days Return to ED for worsening of symptoms Increase oral fluids Take medication as prescribed Motrin. Please picking table worker your medication in the pharmacy and apply bacitracin daily. Please avoid walking a lot especially barefooted. Print Language: Slovenian Stand Alone Forms: Tami Award Info., Patient Portal Info Letter PA/OPERATING COST CLERK Supervising Physician PA/OPERATING COST CLERK Supervising Physician: MD Cordelia
[2025-07-03] MEDS: IBUPROFEN TAB 400 MG TABLET 800 MG PO (23:25)
[2025-07-04 00:02] VITALS: RESP 16
== END 2025-07-04 00:03 | disposition home or self-care (01) ==
PROVIDERS: Emergency Provider Emergency Medicine; PCP Family Medicine
DX: S90.822A Blister (nonthermal), left foot, initial encounter (principal); S90.821A Blister (nonthermal), right foot, initial encounter; Z59.00 Homelessness unspecified
CPT/HCPCS: 99284; A9270

== ENCOUNTER 2025-07-04 18:34 | Emergency (ER) | payer MEDICAID, SELFPAY ==
[2025-07-04 18:35] VITALS: BP 134/88; PULSE 87; RESP 18; TEMP 37.2; O2SAT 96
[2025-07-04 18:36] VITALS: PULSE 100; O2SAT 99; BMI 26.6
--- NOTE | 2025-07-05 01:35 | PC.NURSE ---
PT IS BEEN STAYING OUTSIDE THE BUS STOP.
== END 2025-07-05 01:36 | disposition left against medical advice (07) ==
PROVIDERS: Emergency Provider Emergency Medicine
DX: Z53.21 Procedure and treatment not carried out due to patient leaving prior to being seen by health care provider (principal)
CPT/HCPCS: 99282

== ENCOUNTER 2025-07-06 12:23 | Emergency (ER) | payer MEDICAID, SELFPAY ==
[2025-07-06 12:25] VITALS: PULSE 74; O2SAT 96
[2025-07-06 12:33] VITALS: BP 131/90; PULSE 81; RESP 18; TEMP 36.6; O2SAT 98; BMI 27.3
--- NOTE | 2025-07-06 12:57 | PD.EDEXREM ---
ED Extremity Problem RME/HPI General Stated complaint: FOOT PAIN Time Seen by Provider: 07/06/25 12:28 Source: patient and EMS Arrival date/time: 07/06/25 12:23 Mode of arrival: ambulatory Limitations: no limitations RME / HPI RME / HPI Narrative: 45-year-old male is here today of chronic leg pain. He is homeless and was brought in by EMS today. He has a history of mental health disease. He was seen at another facility for this earlier today. Patient is well-known to our ER and has frequent visits for this. He is self ambulating at baseline. He has no acute injuries to his legs. Related Data Previous Rx's ?Medication ?Instructions ?Recorded sulfamethoxazole 800 1 tab PO BID #14 tabs 03/09/23 mg-trimethoprim 160 mg tablet (Bactrim DS) cyclobenzaprine 5 mg tablet 5 mg PO TID PRN muscle spasm #30 07/23/23 tabs naproxen 500 mg tablet 500 mg PO BID PRN pain #30 tabs 07/23/23 naproxen 500 mg tablet 500 mg PO BID PRN pain #30 tabs 08/08/23 tamsulosin 0.4 mg capsule (Flomax) 0.4 mg PO QDAY #30 caps 08/08/23 baclofen 10 mg tablet 10 mg PO BID PRN muscle spasm #30 08/14/23 tabs naproxen 500 mg tablet 500 mg PO BID PRN pain #30 tabs 08/14/23 ibuprofen 800 mg tablet 800 mg PO TID PRN pain #30 tabs 08/28/23 ibuprofen 600 mg tablet 600 mg PO Q6H PRN pain #30 tabs 01/27/24 methocarbamol 500 mg tablet 1,000 mg (2 x 500 mg) PO Q8H PRN 01/27/24 pain #30 tabs naproxen 500 mg tablet (Naprosyn) 500 mg PO BID #14 tabs 03/15/24 ibuprofen 800 mg tablet 800 mg PO TID PRN pain #30 tabs 04/02/24 cyclobenzaprine 5 mg tablet 5 mg PO TID PRN muscle spasm #14 04/07/24 tabs ibuprofen 600 mg tablet 600 mg PO Q6H PRN fever or pain 04/07/24 #30 tabs ibuprofen 600 mg tablet 600 mg PO Q6H PRN pain #30 tabs 04/07/24 cyclobenzaprine 5 mg tablet 5 mg PO TID PRN muscle spasm #30 04/11/24 tabs naproxen 500 mg tablet 500 mg PO BID PRN pain #30 tabs 04/11/24 ibuprofen 600 mg tablet 600 mg PO Q8H PRN pain #20 tabs 11/03/24 acetaminophen 500 mg capsule 500 mg PO Q6H PRN pain #30 caps 12/03/24 acetaminophen 500 mg capsule 500 mg PO Q6H PRN pain #30 caps 12/15/24 cyclobenzaprine 5 mg tablet 5 mg PO TID PRN muscle spasm #15 12/20/24 tabs lidocaine 5 % topical patch 2 patch topical QDAY PRN pain #30 12/20/24 (Lidoderm) ea naproxen 500 mg tablet 500 mg PO BID PRN pain #14 tabs 04/04/25 bacitracin 500 unit/gram topical 1 applic topical Q12H #28 grams 07/03/25 ointment ibuprofen 800 mg tablet 800 mg PO Q8H PRN pain #30 tabs 07/03/25 Allergies Allergy/AdvReac Type Severity Reaction Status Date / Time No Known Allergies Allergy Verified 07/06/25 12:25 Review of Systems Review of Systems Systems Reviewed: All systems reviewed, normal except as documented ED Exam General Limitations: Present no limitations General appearance: Present alert and in no apparent distress Head Head exam: Present atraumatic Eye Eye exam: Present normal appearance, PERRL and EOMI ENT ENT exam: Present normal exam, normal oropharynx and mucous membranes moist Neck Neck exam: Present normal inspection, full ROM and trachea midline Chest Chest inspection: Present normal inspection and symmetric chest wall rise Respiratory Respiratory exam: Present normal lung sounds bilaterally Cardiovascular Cardiovascular exam: Present regular rate, normal rhythm and normal heart sounds Abdominal Exam Abdominal exam: Present soft and normal bowel sounds Extremities Exam Extremities exam: Present normal inspection and full ROM Back Exam Back exam: Present normal inspection and full ROM Neurological Exam Neurological exam: Present alert, oriented X3 and other (He has a shuffling gait which is his baseline.) Psychiatric Psychiatric exam: Present other (Affect is flat.) Skin Skin exam: Present warm, dry, intact and normal color Course Quality Measures none Vital Signs Vital signs: Vital Signs Temperature 97.8 F 07/06/25 12:33 Pulse Rate 81 07/06/25 12:33 Respiratory Rate 18 07/06/25 12:33 Blood Pressure 131/90 H 07/06/25 12:33 Pulse Oximetry (%) 98 07/06/25 12:33 Oxygen Delivery Method Room Air 07/06/25 12:33 Extremity Problem MDM Narrative MDM Narrative:: 45-year-old male is here today of chronic leg pain. He is homeless and was brought in by EMS today. He has a history of mental health disease. He was seen at another facility for this earlier today. Patient is well-known to our ER and has frequent visits for this. He is self ambulating at baseline. He has no acute injuries to his legs. On exam, patient is nontoxic-appearing and in no visible signs distress. Vital signs are stable. He is at baseline and has no acute changes or complaints. He will be discharged from the ER. She is asked to follow-up with his primary doctor. Return as needed for worsening or emergent changes. Patient data External records reviewed:: [facility] previous records Clinical information provided by:: patient and EMS Social determinants that could affect healthcare access:: mental health Patient has the following chronic illnesses:: Mental health disease, chronic pain How is presenting disease/condition affected by chronic disease/condition?: exacerbated by Evaluation data The following diagnostics were reviewed and interpreted by me:: other (specify) (n/a) Lab and/or radiology exams considered but not ordered:: n/a Interpretation Summary: n/a Medications / Prescriptions Medications or Prescriptions considered but not ordered:: n/a Medication administrations:: n/a Consultations Consultation(s) initiated? (list below): No Diagnosis Most likely diagnosis given after review of the tests above:: Chronic pain Admission Indicated Admission indicated?: not indicated Admission Request Was there a request for admission?: No Disposition Plan Disposition Plan: Discharge Discharge Attestation Discharge Attestation: The patient and all family members were given an opportunity to ask questions and understood the discharge instructions. Discharge instructions specifically effects, indications for sooner follow up or return to the emergency department, and the expected course of current diagnosis. Patient condition: Stable Discharge Plan Plan Patient Disposition: HOME (Self Care) Patient condition on transfer: Stable Prescriptions/Referrals Prescriptions/Med Rec: No Action naproxen 500 mg tablet 500 mg PO BID PRN (Reason: pain) Qty: 30 0RF cyclobenzaprine 5 mg tablet 5 mg PO TID PRN (Reason: muscle spasm) Qty: 30 0RF naproxen 500 mg tablet 500 mg PO BID PRN (Reason: pain) Qty: 30 0RF baclofen 10 mg tablet 10 mg PO BID PRN (Reason: muscle spasm) Qty: 30 0RF ibuprofen 800 mg tablet 800 mg PO TID PRN (Reason: pain) Qty: 30 0RF ibuprofen 800 mg tablet 800 mg PO TID PRN (Reason: pain) Qty: 30 0RF ibuprofen 600 mg tablet 600 mg PO Q6H PRN (Reason: pain) Qty: 30 0RF ibuprofen 600 mg tablet 600 mg PO Q8H PRN (Reason: pain) Qty: 20 0RF acetaminophen 500 mg capsule 500 mg PO Q6H PRN (Reason: pain) Qty: 30 0RF lidocaine [Lidoderm] 5 % adhesive patch,medicated 2 patch topical QDAY PRN (Reason: pain) Qty: 30 0RF Rx Instructions: leave on most painful area for up to 12 hrs cyclobenzaprine 5 mg tablet 5 mg PO TID PRN (Reason: muscle spasm) Qty: 15 0RF naproxen 500 mg tablet 500 mg PO BID PRN (Reason: pain) Qty: 14 0RF bacitracin 500 unit/gram ointment 1 applic topical Q12H Qty: 28 0RF ibuprofen 800 mg tablet 800 mg PO Q8H PRN (Reason: pain) Qty: 30 0RF sulfamethoxazole-trimethoprim [Bactrim DS] 800-160 mg tablet 1 tab PO BID Qty: 14 0RF naproxen 500 mg tablet 500 mg PO BID PRN (Reason: pain) Qty: 30 0RF tamsulosin [Flomax] 0.4 mg capsule 0.4 mg PO QDAY Qty: 30 0RF ibuprofen 600 mg tablet 600 mg PO Q6H PRN (Reason: pain) Qty: 30 0RF methocarbamol 500 mg tablet 1,000 mg PO Q8H PRN (Reason: pain) Qty: 30 0RF naproxen [Naprosyn] 500 mg tablet 500 mg PO BID Qty: 14 0RF ibuprofen 600 mg tablet 600 mg PO Q6H PRN (Reason: fever or pain) Qty: 30 0RF cyclobenzaprine 5 mg tablet 5 mg PO TID PRN (Reason: muscle spasm) Qty: 14 0RF naproxen 500 mg tablet 500 mg PO BID PRN (Reason: pain) Qty: 30 0RF cyclobenzaprine 5 mg tablet 5 mg PO TID PRN (Reason: muscle spasm) Qty: 30 0RF acetaminophen 500 mg capsule 500 mg PO Q6H PRN (Reason: pain) Qty: 30 0RF Problem List Clinical Impression: Chronic leg pain Patient/Caregiver Discharge Instructions Education Materials: ED Chronic Pain Additional Instructions: - Use Tylenol and ibuprofen as needed for comfort. - Follow-up with your clinic this week for a recheck. - Return to the emergency room as needed for any worsening or emergent changes. Print Language: Salvadorean Stand Alone Forms: [employer] Info., Patient Portal Info Letter
== END 2025-07-06 13:34 | disposition home or self-care (01) ==
PROVIDERS: Emergency Provider Emergency Medicine; PCP Family Medicine
DX: G89.29 Other chronic pain (principal); M79.606 Pain in leg, unspecified; Z59.00 Homelessness unspecified
CPT/HCPCS: 99282

== ENCOUNTER 2025-07-06 14:24 | Emergency (ER) | payer MEDICAID, SELFPAY ==
[2025-07-06 14:25] VITALS: PULSE 88; RESP 18; O2SAT 99
[2025-07-06 14:29] VITALS: BP 111/69; PULSE 97; RESP 20; TEMP 37.2; O2SAT 95
--- NOTE | 2025-07-06 15:48 | EDNOTE_ITS ---
Lower Extremity Injury RME/HPI General Chief Complaint: Extremity Injury, Lower Stated Complaint: LEGS HURT Time Seen by Provider: 07/06/25 14:34 Source: patient Arrival date/time: 07/06/25 14:24 Limitations: no limitations RME / HPI RME / HPI Narrative: 45-year-old male who is here today with chronic lower leg pain bilaterally. Denies any acute changes denies any falls or injuries. No fevers or chills. Patient was seen in our ER for this earlier today. He has no other concerns. Related Data Previous Rx's ?Medication ?Instructions ?Recorded sulfamethoxazole 800 1 tab PO BID #14 tabs mg-trimethoprim 160 mg tablet (Bactrim DS) cyclobenzaprine 5 mg tablet 5 mg PO TID PRN muscle spa sm #30 07/23/23 tabs naproxen 500 mg tablet 500 mg PO BID PRN pain #30 t abs 07/23/23 naproxen 500 mg tablet 500 mg PO BID PRN pain #30 t abs 08/08/23 tamsulosin 0.4 mg capsule (Flomax) 0.4 mg PO QDAY #30 caps 08/08/23 baclofen 10 mg tablet 10 mg PO BID PRN muscle spas m #30 08/14/23 tabs naproxen 500 mg tablet 500 mg PO BID PRN pain #30 t abs 08/14/23 ibuprofen 800 mg tablet 800 mg PO TID PRN pain #30 t abs 08/28/23 ibuprofen 600 mg tablet 600 mg PO Q6H PRN pain #30 t abs 01/27/24 methocarbamol 500 mg tablet 1,000 mg (2 x 500 mg) PO Q 8H PRN 01/27/24 pain #30 tabs naproxen 500 mg tablet (Naprosyn) 500 mg PO BID #14 ta bs 03/15/24 ibuprofen 800 mg tablet 800 mg PO TID PRN pain #30 t abs 04/02/24 cyclobenzaprine 5 mg tablet 5 mg PO TID PRN muscle spa sm #14 04/07/24 tabs ibuprofen 600 mg tablet 600 mg PO Q6H PRN fever or p ain 04/07/24 #30 tabs ibuprofen 600 mg tablet 600 mg PO Q6H PRN pain #30 t abs 04/07/24 cyclobenzaprine 5 mg tablet 5 mg PO TID PRN muscle spa sm #30 04/11/24 tabs naproxen 500 mg tablet 500 mg PO BID PRN pain #30 t abs 04/11/24 ibuprofen 600 mg tablet 600 mg PO Q8H PRN pain #20 t abs 11/03/24 acetaminophen 500 mg capsule 500 mg PO Q6H PRN pain #3 0 caps 12/03/24 acetaminophen 500 mg capsule 500 mg PO Q6H PRN pain #3 0 caps 12/15/24 cyclobenzaprine 5 mg tablet 5 mg PO TID PRN muscle spa sm #15 12/20/24 tabs lidocaine 5 % topical patch 2 patch topical QDAY PRN p ain #30 12/20/24 (Lidoderm) ea naproxen 500 mg tablet 500 mg PO BID PRN pain #14 t abs 04/04/25 bacitracin 500 unit/gram topical 1 applic topical Q12H #28 grams 07/03/25 ointment ibuprofen 800 mg tablet 800 mg PO Q8H PRN pain #30 t abs 07/03/25 Allergies Allergy/AdvReac Type Severity Reaction Status Date / Time No Known Allergies Allergy Verified 07/06/25 14:26 Review of Systems Review of Systems Systems Reviewed: All systems reviewed, normal except as documented ED Exam General Limitations: Present no limitations General appearance: Present alert and in no apparent distress Head Head exam: Present atraumatic Eye Eye exam: Present normal appearance, PERRL and EOMI ENT ENT exam: Present normal exam, normal oropharynx and mucous membranes moist Neck Neck exam: Present normal inspection, full ROM and trachea midline Chest Chest inspection: Present normal inspection and symmetric chest wall rise Respiratory Respiratory exam: Present normal lung sounds bilaterally Cardiovascular Cardiovascular exam: Present regular rate, normal rhythm and normal heart sounds Abdominal Exam Abdominal exam: Present soft and normal bowel sounds Extremities Exam Extremities exam: Present normal inspection and full ROM Back Exam Back exam: Present normal inspection and full ROM Neurological Exam Neurological exam: Present alert and oriented X3 Psychiatric Psychiatric exam: Present flat affect Skin Skin exam: Present warm, dry, intact and normal color Course Quality Measures none Vital Signs Vital signs: Vital Signs Temperature 99.0 F 07/06/25 14:29 Pulse Rate 97 07/06/25 14:29 Respiratory Rate 20 07/06/25 14:29 Blood Pressure 111/69 07/06/25 14:29 Pulse Oximetry (%) 95 07/06/25 14:29 Oxygen Delivery Method Room Air 07/06/25 14:29 Extremity Injury, Lower MDM Narrative MDM Narrative:: 45-year-old male who is here today with chronic lower leg pain bilaterally. Denies any acute changes denies any falls or injuries. No fevers or chills. Patient was seen in our ER for this earlier today. He has no other concerns. Patient is self ambulating without assistance at his baseline. Vital signs are stable. Patient will be discharged from the ER. He may return here for emergent changes as needed. Patient data External records reviewed:: None Clinical information provided by:: patient Social determinants that could affect healthcare access:: mental health Patient has the following chronic illnesses:: Chronic pain, mental health disease How is presenting disease/condition affected by chronic disease/condition?: exacerbated by Evaluation data The following diagnostics were reviewed and interpreted by me:: other (specify) (n/a) Lab and/or radiology exams considered but not ordered:: n/a Interpretation Summary: n/a Medications / Prescriptions Medications or Prescriptions considered but not ordered:: n/a Medication administrations:: n/a Consultations Consultation(s) initiated? (list below): No Diagnosis Extremity Injury, Lower Differential Diagnosis: acute internal derangement of knee Most likely diagnosis given after review of the tests above:: Chronic pain Admission Indicated Admission indicated?: not indicated Admission Request Was there a request for admission?: No Disposition Plan Disposition Plan: Discharge Discharge Attestation Discharge Attestation: The patient and all family members were given an opportunity to ask questions and understood the discharge instructions. Discharge instructions specifically effects, indications for sooner follow up or return to the emergency department, and the expected course of current diagnosis. Patient condition: Stable Discharge Plan Plan Patient Disposition: HOME (Self Care) Patient condition on transfer: Stable Prescriptions/Referrals Prescriptions/Med Rec: No Action naproxen 500 mg tablet 500 mg PO BID PRN (Reason: pain) Qty: 30 0RF cyclobenzaprine 5 mg tablet 5 mg PO TID PRN (Reason: muscle spasm) Qty: 30 0RF naproxen 500 mg tablet 500 mg PO BID PRN (Reason: pain) Qty: 30 0RF baclofen 10 mg tablet 10 mg PO BID PRN (Reason: muscle spasm) Qty: 30 0RF ibuprofen 800 mg tablet 800 mg PO TID PRN (Reason: pain) Qty: 30 0RF ibuprofen 800 mg tablet 800 mg PO TID PRN (Reason: pain) Qty: 30 0RF ibuprofen 600 mg tablet 600 mg PO Q6H PRN (Reason: pain) Qty: 30 0RF ibuprofen 600 mg tablet 600 mg PO Q8H PRN (Reason: pain) Qty: 20 0RF acetaminophen 500 mg capsule 500 mg PO Q6H PRN (Reason: pain) Qty: 30 0RF lidocaine [Lidoderm] 5 % adhesive patch,medicated 2 patch topical QDAY PRN (Reason: pain) Qty: 30 0RF Rx Instructions: leave on most painful area for up to 12 hrs cyclobenzaprine 5 mg tablet 5 mg PO TID PRN (Reason: muscle spasm) Qty: 15 0RF naproxen 500 mg tablet 500 mg PO BID PRN (Reason: pain) Qty: 14 0RF bacitracin 500 unit/gram ointment 1 applic topical Q12H Qty: 28 0RF ibuprofen 800 mg tablet 800 mg PO Q8H PRN (Reason: pain) Qty: 30 0RF sulfamethoxazole-trimethoprim [Bactrim DS] 800-160 mg tablet 1 tab PO BID Qty: 14 0RF naproxen 500 mg tablet 500 mg PO BID PRN (Reason: pain) Qty: 30 0RF tamsulosin [Flomax] 0.4 mg capsule 0.4 mg PO QDAY Qty: 30 0RF ibuprofen 600 mg tablet 600 mg PO Q6H PRN (Reason: pain) Qty: 30 0RF methocarbamol 500 mg tablet 1,000 mg PO Q8H PRN (Reason: pain) Qty: 30 0RF naproxen [Naprosyn] 500 mg tablet 500 mg PO BID Qty: 14 0RF ibuprofen 600 mg tablet 600 mg PO Q6H PRN (Reason: fever or pain) Qty: 30 0RF cyclobenzaprine 5 mg tablet 5 mg PO TID PRN (Reason: muscle spasm) Qty: 14 0RF naproxen 500 mg tablet 500 mg PO BID PRN (Reason: pain) Qty: 30 0RF cyclobenzaprine 5 mg tablet 5 mg PO TID PRN (Reason: muscle spasm) Qty: 30 0RF acetaminophen 500 mg capsule 500 mg PO Q6H PRN (Reason: pain) Qty: 30 0RF Referrals: Lavell (PCP),MD Cody [Primary Care Provider] - In 1 week Problem List Clinical Impression: Chronic pain of lower extremity, bilateral Patient/Caregiver Discharge Instructions Education Materials: ED Chronic Pain Additional Instructions: -Follow up with your primary doctor. -Return here for any emergent needs or concerns. Print Language: [place]orese Stand Alone Forms: [employer] Award Info., Patient Portal Info Letter
== END 2025-07-06 15:59 | disposition home or self-care (01) ==
PROVIDERS: Emergency Provider Emergency Medicine; PCP Family Medicine
DX: G89.29 Other chronic pain (principal); M79.662 Pain in left lower leg; M79.661 Pain in right lower leg
CPT/HCPCS: 99282

== ENCOUNTER 2025-07-06 17:29 | Emergency (ER) | payer MEDICAID, SELFPAY ==
[2025-07-06 17:30] VITALS: PULSE 82; RESP 16; O2SAT 98; BMI 18.3
[2025-07-06 18:29] VITALS: BP 136/88; PULSE 97; RESP 18; TEMP 36.7; O2SAT 99
[2025-07-06] MEDS: NAPROXEN 250 MG TABLET 500 MG PO (18:40)
--- NOTE | 2025-07-06 20:02 | EDNOTE_ITS ---
Lower Extremity Injury RME/HPI General Chief Complaint: Extremity Injury, Lower Stated Complaint: LEG PAIN Time Seen by Provider: 07/06/25 18:19 Source: patient Arrival date/time: 07/06/25 17:29 This is a case of 45-year-old male came in in the emergency room due to chronic pain on the both lower leg and knees patient had multiple visit here in the emergency room and this is his fourth visit today with the same symptoms patient was seen here today and was discharged with pain medication denies any numbness weakness tingling sensation denies any swelling or redness denies any injury or trauma Limitations: no limitations Related Data Previous Rx's ?Medication ?Instructions ?Recorded sulfamethoxazole 800 1 tab PO BID #14 tabs mg-trimethoprim 160 mg tablet (Bactrim DS) cyclobenzaprine 5 mg tablet 5 mg PO TID PRN muscle spa sm #30 07/23/23 tabs naproxen 500 mg tablet 500 mg PO BID PRN pain #30 t abs 07/23/23 naproxen 500 mg tablet 500 mg PO BID PRN pain #30 t abs 08/08/23 tamsulosin 0.4 mg capsule (Flomax) 0.4 mg PO QDAY #30 caps 08/08/23 baclofen 10 mg tablet 10 mg PO BID PRN muscle spas m #30 08/14/23 tabs naproxen 500 mg tablet 500 mg PO BID PRN pain #30 t abs 08/14/23 ibuprofen 800 mg tablet 800 mg PO TID PRN pain #30 t abs 08/28/23 ibuprofen 600 mg tablet 600 mg PO Q6H PRN pain #30 t abs 01/27/24 methocarbamol 500 mg tablet 1,000 mg (2 x 500 mg) PO Q 8H PRN 01/27/24 pain #30 tabs naproxen 500 mg tablet (Naprosyn) 500 mg PO BID #14 ta bs 03/15/24 ibuprofen 800 mg tablet 800 mg PO TID PRN pain #30 t abs 04/02/24 cyclobenzaprine 5 mg tablet 5 mg PO TID PRN muscle spa sm #14 04/07/24 tabs ibuprofen 600 mg tablet 600 mg PO Q6H PRN fever or p ain 04/07/24 #30 tabs ibuprofen 600 mg tablet 600 mg PO Q6H PRN pain #30 t abs 04/07/24 cyclobenzaprine 5 mg tablet 5 mg PO TID PRN muscle spa sm #30 04/11/24 tabs naproxen 500 mg tablet 500 mg PO BID PRN pain #30 t abs 04/11/24 ibuprofen 600 mg tablet 600 mg PO Q8H PRN pain #20 t abs 11/03/24 acetaminophen 500 mg capsule 500 mg PO Q6H PRN pain #3 0 caps 12/03/24 acetaminophen 500 mg capsule 500 mg PO Q6H PRN pain #3 0 caps 12/15/24 cyclobenzaprine 5 mg tablet 5 mg PO TID PRN muscle spa sm #15 12/20/24 tabs lidocaine 5 % topical patch 2 patch topical QDAY PRN p ain #30 12/20/24 (Lidoderm) ea naproxen 500 mg tablet 500 mg PO BID PRN pain #14 t abs 04/04/25 bacitracin 500 unit/gram topical 1 applic topical Q12H #28 grams 07/03/25 ointment ibuprofen 800 mg tablet 800 mg PO Q8H PRN pain #30 t abs 07/03/25 Allergies Allergy/AdvReac Type Severity Reaction Status Date / Time No Known Allergies Allergy Verified 07/06/25 14:26 Review of Systems Review of Systems Systems Reviewed: All systems reviewed, normal except as documented Constitutional Constitutional: Reports system reviewed and no additional complaints, except as documented and Reports as per HPI Cardiovascular Cardiovascular: Reports system reviewed and no additional complaints, except as documented and Reports as per HPI Respiratory Respiratory: Reports system reviewed and no additional complaints, except as documented and Reports as per HPI Gastrointestinal Gastrointestinal: Reports system reviewed and no additional complaints, except as documented and Reports as per HPI Musculoskeletal Musculoskeletal: Reports system reviewed and no additional complaints, except as documented and Reports other (Knee pain leg pain) Neurologic Neurologic: Reports system reviewed and no additional complaints, except as documented and Reports as per HPI Past Medical History Past Medical History NEUROLOGIC: Positive Cerebrovascular Accident; Negative Neurological Disorders CARDIAC: Positive Myocardial Infarction and Hypercholesterolemia; Negative Cardiac Disorders or Congestive Heart Failure RESPIRATORY: Negative Chronic Obstructive Pulmonary Disease (COPD) or Asthma GASTROINTESTINAL: Negative Gastrointestinal Disorders GENITOURINARY: Negative Genitourinary Disorders or Renal Disease MUSCULOSKELETAL: Negative Musculoskeletal Disorders ENDOCRINE: Negative Endocrine Disorders, Diabetes Mellitus Type 1 or Diabetes Mellitus Type 2 HEMATOLOGIC: Negative Blood Disorders or Sickle Cell Disease OTHER HISTORY: Negative Autoimmune Disease or Clostridium Difficile Social History SMOKING STATUS: Current every day smoker SUBSTANCE USE: methamphetamine ED Exam General Limitations: Present no limitations General appearance: Present alert, in no apparent distress and other (Patient is awake alert oriented not in distress nontoxic looking well-hydrated well- nourished) Head Head exam: Present atraumatic Eye Eye exam: Present normal appearance, PERRL and EOMI ENT ENT exam: Present normal exam, normal oropharynx and mucous membranes moist Neck Neck exam: Present normal inspection, full ROM and trachea midline; Absent tenderness Chest Chest inspection: Present normal inspection and symmetric chest wall rise; Absent tenderness Respiratory Respiratory exam: Present normal lung sounds bilaterally; Absent respiratory distress, wheezes, stridor, accessory muscle use or prolonged expiratory phase Cardiovascular Cardiovascular exam: Present regular rate, normal rhythm and normal heart sounds; Absent bradycardia, tachycardia, irregular rhythm or systolic murmur Abdominal Exam Abdominal exam: Present soft and normal bowel sounds; Absent distention, tenderness, guarding, rebound, rigidity or diminished bowel sounds Extremities Exam Extremities exam: Present normal inspection and full ROM Expanded Lower Extremity Exam Hip/Pelvis exam: Present normal inspection and full ROM; Absent tenderness or swelling Upper leg exam: Present normal inspection and full ROM; Absent tenderness or swelling Knee exam: Present normal inspection and full ROM; Absent tenderness or swelling Lower leg exam: Present normal inspection and full ROM; Absent tenderness or swelling Ankle exam: Present normal inspection and full ROM; Absent tenderness or swelling Foot/toe exam: Present normal inspection and full ROM; Absent tenderness or swelling Back Exam Back exam: Present normal inspection and full ROM Neurological Exam Neurological exam: Present alert, oriented X3, CN II-XII intact, normal gait and reflexes normal; Absent motor sensory deficit Psychiatric Psychiatric exam: Present normal affect and normal mood Skin Skin exam: Present warm, dry, intact and normal color Course Quality Measures none Orders Category Date Time Status Naproxen [Naprosyn] Med 07/06/25 18:36 Discontinued 500 mg PO X1 ONE Vital Signs Vital signs: Vital Signs Temperature 98.0 F 07/06/25 18:29 Pulse Rate 97 07/06/25 18:29 Respiratory Rate 18 07/06/25 18:29 Blood Pressure 136/88 H 07/06/25 18:29 Pulse Oximetry (%) 99 07/06/25 18:29 Oxygen Delivery Method Room Air 07/06/25 18:29 Patient is afebrile not tachycardic not tachypneic BP stable not hypoxic oxygen saturation is 99% in room Extremity Injury, Lower MDM Narrative MDM Narrative:: This is a case of 45-year-old male came in in the emergency room due to chronic pain on the both lower leg and knees patient had multiple visit here in the emergency room and this is his fourth visit today with the same symptoms patient was seen here today and was discharged with pain medication denies any numbness weakness tingling sensation denies any swelling or redness denies any injury or trauma physical examination patient is awake alert oriented not in distress nontoxic looking well-hydrated well-nourished noted both lower extremities normal and unremarkable no lesion no rib contusion no hematoma no swelling no redness no signs or symptoms of cellulitis ROM intact neurovascular intact patient was given Naprosyn here in the emergency room patient was advised to see PCP to be referred to pain management for chronic leg pain and to be referred to pain management doctor for pain control for any worsening symptoms return to the emergency room immediately or call 911 at the time of exam no signs or symptoms of DVT or peripheral vascular disease Patient was discharged with comfortable condition walking with stable gait. Patient verbalized no further complains explained diagnosis and answered patient question. Patient is comfortable with the proposed management plan including the need to follow up with his/her primary care physician and any specialist if applicable Discussed patient for any urgent condition or worsening sx, He/She needed to go to emergency room immediately or call 911. Patient acknowledge the responsibility to follow up as instructed and to monitor her/his symptoms. For any persistence of the symptoms for more than 3-5 days return precaution advised. Discussed the result of the test and was given printed discharge instruction Patient data External records reviewed:: [facility] previous records Clinical information provided by:: patient Social determinants that could affect healthcare access:: none Patient has the following chronic illnesses:: None How is presenting disease/condition affected by chronic disease/condition?: no chronic disease Evaluation data The following diagnostics were reviewed and interpreted by me:: other (specify) Lab and/or radiology exams considered but not ordered:: None Interpretation Summary: None Medications / Prescriptions Medications or Prescriptions considered but not ordered:: Given Medication administrations:: Medication Administration History Discontinued Medications Naproxen (Naproxen 250 Mg Tablet) 500 mg PO X1 ONE Stop: 07/06/25 18:37 Last Admin: 07/06/25 18:40 Dose: 500 mg Documented By: EF Given Consultations Consultation(s) initiated? (list below): No Diagnosis Extremity Injury, Lower Differential Diagnosis: other (Leg pain chronic) Most likely diagnosis given after review of the tests above:: Chronic leg pain Admission Indicated Admission indicated?: not indicated Explain why admission is indicated or not indicated:: Not indicated Admission Request Was there a request for admission?: No Admission Attestation Admission request attestation: Not indicated Disposition Plan Disposition Plan: Discharge Discharge Attestation Discharge Attestation: The patient and all family members were given an opportunity to ask questions and understood the discharge instructions. Discharge instructions specifically effects, indications for sooner follow up or return to the emergency department, and the expected course of current diagnosis. Patient condition: Stable Discharge Plan Plan Patient Disposition: HOME (Self Care) Patient condition on transfer: Stable Prescriptions/Referrals Prescriptions/Med Rec: No Action naproxen 500 mg tablet 500 mg PO BID PRN (Reason: pain) Qty: 30 0RF cyclobenzaprine 5 mg tablet 5 mg PO TID PRN (Reason: muscle spasm) Qty: 30 0RF naproxen 500 mg tablet 500 mg PO BID PRN (Reason: pain) Qty: 30 0RF baclofen 10 mg tablet 10 mg PO BID PRN (Reason: muscle spasm) Qty: 30 0RF ibuprofen 800 mg tablet 800 mg PO TID PRN (Reason: pain) Qty: 30 0RF ibuprofen 800 mg tablet 800 mg PO TID PRN (Reason: pain) Qty: 30 0RF ibuprofen 600 mg tablet 600 mg PO Q6H PRN (Reason: pain) Qty: 30 0RF ibuprofen 600 mg tablet 600 mg PO Q8H PRN (Reason: pain) Qty: 20 0RF acetaminophen 500 mg capsule 500 mg PO Q6H PRN (Reason: pain) Qty: 30 0RF lidocaine [Lidoderm] 5 % adhesive patch,medicated 2 patch topical QDAY PRN (Reason: pain) Qty: 30 0RF Rx Instructions: leave on most painful area for up to 12 hrs cyclobenzaprine 5 mg tablet 5 mg PO TID PRN (Reason: muscle spasm) Qty: 15 0RF naproxen 500 mg tablet 500 mg PO BID PRN (Reason: pain) Qty: 14 0RF bacitracin 500 unit/gram ointment 1 applic topical Q12H Qty: 28 0RF ibuprofen 800 mg tablet 800 mg PO Q8H PRN (Reason: pain) Qty: 30 0RF sulfamethoxazole-trimethoprim [Bactrim DS] 800-160 mg tablet 1 tab PO BID Qty: 14 0RF naproxen 500 mg tablet 500 mg PO BID PRN (Reason: pain) Qty: 30 0RF tamsulosin [Flomax] 0.4 mg capsule 0.4 mg PO QDAY Qty: 30 0RF ibuprofen 600 mg tablet 600 mg PO Q6H PRN (Reason: pain) Qty: 30 0RF methocarbamol 500 mg tablet 1,000 mg PO Q8H PRN (Reason: pain) Qty: 30 0RF naproxen [Naprosyn] 500 mg tablet 500 mg PO BID Qty: 14 0RF ibuprofen 600 mg tablet 600 mg PO Q6H PRN (Reason: fever or pain) Qty: 30 0RF cyclobenzaprine 5 mg tablet 5 mg PO TID PRN (Reason: muscle spasm) Qty: 14 0RF naproxen 500 mg tablet 500 mg PO BID PRN (Reason: pain) Qty: 30 0RF cyclobenzaprine 5 mg tablet 5 mg PO TID PRN (Reason: muscle spasm) Qty: 30 0RF acetaminophen 500 mg capsule 500 mg PO Q6H PRN (Reason: pain) Qty: 30 0RF Referrals: Lavell (PCP),MD Cody [Primary Care Provider] - In 1 week Problem List Clinical Impression: Chronic pain of lower extremity, bilateral Patient/Caregiver Discharge Instructions Education Materials: ED Chronic Pain, ED RICE Additional Instructions: Follow-up with your primary care physician in 2 days for reevaluation to be referred to pain management doctor for pain control recurrence persistent worsening symptoms or any emergent concern call 911 or go to the nearest emergency room continue RICE treatment continue your pain medication that was prescribed by the previous provider Print Language: Citizen Of [place] Stand Alone Forms: Tami Award Info., Patient Portal Info Letter PA/PIPELINES SUPERINTENDENT Supervising Physician PA/PIPELINES SUPERINTENDENT Supervising Physician: dR LOZANO
== END 2025-07-06 18:44 | disposition home or self-care (01) ==
PROVIDERS: Emergency Provider Family Medicine; PCP Family Medicine
DX: G89.29 Other chronic pain (principal); M79.662 Pain in left lower leg; M79.661 Pain in right lower leg; M25.562 Pain in left knee; M25.561 Pain in right knee; I25.2 Old myocardial infarction; E78.00 Pure hypercholesterolemia, unspecified; F17.210 Nicotine dependence, cigarettes, uncomplicated; Z86.73 Personal history of transient ischemic attack (TIA), and cerebral infarction without residual deficits
CPT/HCPCS: 99282; A9270

== ENCOUNTER 2025-07-06 21:40 | Emergency (ER) | payer MEDICAID, SELFPAY ==
[2025-07-06 21:41] VITALS: BMI 26.6
--- NOTE | 2025-07-06 22:15 | PD.EDADULT ---
ED General RME/HPI General Chief complaint: General Adult/Misc Complain Stated complaint: LEGS THROBBING 5TH TIME TODAY Time Seen by Provider: 07/06/25 22:06 Arrival date/time: 07/06/25 21:40 This is a case of 45-year-old male who came in in the emergency room due to bilateral leg pain patient have history of multiple ER visits and this is his fifth visit today I saw this patient 3 hours ago and discharge with chronic lower leg pain there is no other symptoms noted with this patient no numbness no weakness no tingling sensation Limitations: no limitations Related Data Previous Rx's ?Medication ?Instructions ?Recorded sulfamethoxazole 800 1 tab PO BID #14 tabs 03/09/23 mg-trimethoprim 160 mg tablet (Bactrim DS) cyclobenzaprine 5 mg tablet 5 mg PO TID PRN muscle spasm #30 07/23/23 tabs naproxen 500 mg tablet 500 mg PO BID PRN pain #30 tabs 07/23/23 naproxen 500 mg tablet 500 mg PO BID PRN pain #30 tabs 08/08/23 tamsulosin 0.4 mg capsule (Flomax) 0.4 mg PO QDAY #30 caps 08/08/23 baclofen 10 mg tablet 10 mg PO BID PRN muscle spasm #30 08/14/23 tabs naproxen 500 mg tablet 500 mg PO BID PRN pain #30 tabs 08/14/23 ibuprofen 800 mg tablet 800 mg PO TID PRN pain #30 tabs 08/28/23 ibuprofen 600 mg tablet 600 mg PO Q6H PRN pain #30 tabs 01/27/24 methocarbamol 500 mg tablet 1,000 mg (2 x 500 mg) PO Q8H PRN 01/27/24 pain #30 tabs naproxen 500 mg tablet (Naprosyn) 500 mg PO BID #14 tabs 03/15/24 ibuprofen 800 mg tablet 800 mg PO TID PRN pain #30 tabs 04/02/24 cyclobenzaprine 5 mg tablet 5 mg PO TID PRN muscle spasm #14 04/07/24 tabs ibuprofen 600 mg tablet 600 mg PO Q6H PRN fever or pain 04/07/24 #30 tabs ibuprofen 600 mg tablet 600 mg PO Q6H PRN pain #30 tabs 04/07/24 cyclobenzaprine 5 mg tablet 5 mg PO TID PRN muscle spasm #30 04/11/24 tabs naproxen 500 mg tablet 500 mg PO BID PRN pain #30 tabs 04/11/24 ibuprofen 600 mg tablet 600 mg PO Q8H PRN pain #20 tabs 11/03/24 acetaminophen 500 mg capsule 500 mg PO Q6H PRN pain #30 caps 12/03/24 acetaminophen 500 mg capsule 500 mg PO Q6H PRN pain #30 caps 12/15/24 cyclobenzaprine 5 mg tablet 5 mg PO TID PRN muscle spasm #15 12/20/24 tabs lidocaine 5 % topical patch 2 patch topical QDAY PRN pain #30 12/20/24 (Lidoderm) ea naproxen 500 mg tablet 500 mg PO BID PRN pain #14 tabs 04/04/25 bacitracin 500 unit/gram topical 1 applic topical Q12H #28 grams 07/03/25 ointment ibuprofen 800 mg tablet 800 mg PO Q8H PRN pain #30 tabs 07/03/25 Allergies Allergy/AdvReac Type Severity Reaction Status Date / Time No Known Allergies Allergy Verified 07/06/25 21:45 Review of Systems Review of Systems Systems Reviewed: All systems reviewed, normal except as documented Constitutional Constitutional: Reports system reviewed and no additional complaints, except as documented Cardiovascular Cardiovascular: Reports system reviewed and no additional complaints, except as documented Respiratory Respiratory: Reports system reviewed and no additional complaints, except as documented and Reports as per HPI Gastrointestinal Gastrointestinal: Reports system reviewed and no additional complaints, except as documented and Reports as per HPI Musculoskeletal Musculoskeletal: Reports system reviewed and no additional complaints, except as documented and Reports as per HPI Integumentary/Breasts Skin/Breast: Reports system reviewed and no additional complaints, except as documented Neurologic Neurologic: Reports system reviewed and no additional complaints, except as documented and Reports as per HPI Past Medical History Past Medical History NEUROLOGIC: Positive Cerebrovascular Accident; Negative Neurological Disorders CARDIAC: Positive Myocardial Infarction and Hypercholesterolemia; Negative Cardiac Disorders or Congestive Heart Failure RESPIRATORY: Negative Chronic Obstructive Pulmonary Disease (COPD) or Asthma GASTROINTESTINAL: Negative Gastrointestinal Disorders GENITOURINARY: Negative Genitourinary Disorders or Renal Disease MUSCULOSKELETAL: Negative Musculoskeletal Disorders ENDOCRINE: Negative Endocrine Disorders, Diabetes Mellitus Type 1 or Diabetes Mellitus Type 2 HEMATOLOGIC: Negative Blood Disorders or Sickle Cell Disease OTHER HISTORY: Negative Autoimmune Disease or Clostridium Difficile Social History SMOKING STATUS: Current every day smoker SUBSTANCE USE: methamphetamine ED Exam General Limitations: Present no limitations General appearance: Present alert and in no apparent distress Head Head exam: Present atraumatic Eye Eye exam: Present normal appearance, PERRL and EOMI ENT ENT exam: Present normal exam, normal oropharynx and mucous membranes moist Neck Neck exam: Present normal inspection, full ROM and trachea midline Chest Chest inspection: Present normal inspection and symmetric chest wall rise Respiratory Respiratory exam: Present normal lung sounds bilaterally; Absent respiratory distress, wheezes, stridor, accessory muscle use or prolonged expiratory phase Cardiovascular Cardiovascular exam: Present regular rate, normal rhythm and normal heart sounds; Absent bradycardia, tachycardia, irregular rhythm or systolic murmur Abdominal Exam Abdominal exam: Present soft and normal bowel sounds Extremities Exam Extremities exam: Present normal inspection and full ROM Expanded Lower Extremity Exam Hip/Pelvis exam: Present normal inspection and full ROM; Absent tenderness or swelling Upper leg exam: Present normal inspection and full ROM; Absent tenderness or swelling Knee exam: Present normal inspection and full ROM; Absent tenderness or swelling Lower leg exam: Present normal inspection and full ROM; Absent tenderness or swelling Ankle exam: Present normal inspection and full ROM; Absent tenderness or swelling Foot/toe exam: Present normal inspection and full ROM; Absent tenderness or swelling Back Exam Back exam: Present normal inspection and full ROM Neurological Exam Neurological exam: Present alert, oriented X3, CN II-XII intact, normal gait and reflexes normal; Absent motor sensory deficit Psychiatric Psychiatric exam: Present normal affect and normal mood Skin Skin exam: Present warm, dry, intact and normal color Course Quality Measures none Vital Signs Vital signs: Patient vital signs was refused by the patient Discharge Plan Plan Patient Disposition: HOME (Self Care) Patient condition on transfer: Stable Prescriptions/Referrals Prescriptions/Med Rec: No Action naproxen 500 mg tablet 500 mg PO BID PRN (Reason: pain) Qty: 30 0RF cyclobenzaprine 5 mg tablet 5 mg PO TID PRN (Reason: muscle spasm) Qty: 30 0RF naproxen 500 mg tablet 500 mg PO BID PRN (Reason: pain) Qty: 30 0RF baclofen 10 mg tablet 10 mg PO BID PRN (Reason: muscle spasm) Qty: 30 0RF ibuprofen 800 mg tablet 800 mg PO TID PRN (Reason: pain) Qty: 30 0RF ibuprofen 800 mg tablet 800 mg PO TID PRN (Reason: pain) Qty: 30 0RF ibuprofen 600 mg tablet 600 mg PO Q6H PRN (Reason: pain) Qty: 30 0RF ibuprofen 600 mg tablet 600 mg PO Q8H PRN (Reason: pain) Qty: 20 0RF acetaminophen 500 mg capsule 500 mg PO Q6H PRN (Reason: pain) Qty: 30 0RF lidocaine [Lidoderm] 5 % adhesive patch,medicated 2 patch topical QDAY PRN (Reason: pain) Qty: 30 0RF Rx Instructions: leave on most painful area for up to 12 hrs cyclobenzaprine 5 mg tablet 5 mg PO TID PRN (Reason: muscle spasm) Qty: 15 0RF naproxen 500 mg tablet 500 mg PO BID PRN (Reason: pain) Qty: 14 0RF bacitracin 500 unit/gram ointment 1 applic topical Q12H Qty: 28 0RF ibuprofen 800 mg tablet 800 mg PO Q8H PRN (Reason: pain) Qty: 30 0RF sulfamethoxazole-trimethoprim [Bactrim DS] 800-160 mg tablet 1 tab PO BID Qty: 14 0RF naproxen 500 mg tablet 500 mg PO BID PRN (Reason: pain) Qty: 30 0RF tamsulosin [Flomax] 0.4 mg capsule 0.4 mg PO QDAY Qty: 30 0RF ibuprofen 600 mg tablet 600 mg PO Q6H PRN (Reason: pain) Qty: 30 0RF methocarbamol 500 mg tablet 1,000 mg PO Q8H PRN (Reason: pain) Qty: 30 0RF naproxen [Naprosyn] 500 mg tablet 500 mg PO BID Qty: 14 0RF ibuprofen 600 mg tablet 600 mg PO Q6H PRN (Reason: fever or pain) Qty: 30 0RF cyclobenzaprine 5 mg tablet 5 mg PO TID PRN (Reason: muscle spasm) Qty: 14 0RF naproxen 500 mg tablet 500 mg PO BID PRN (Reason: pain) Qty: 30 0RF cyclobenzaprine 5 mg tablet 5 mg PO TID PRN (Reason: muscle spasm) Qty: 30 0RF acetaminophen 500 mg capsule 500 mg PO Q6H PRN (Reason: pain) Qty: 30 0RF Problem List Clinical Impression: Chronic pain of lower extremity, bilateral Patient/Caregiver Discharge Instructions Education Materials: ED Chronic Pain Additional Instructions: Follow-up with your primary care physician in 2 days for reevaluation worsening symptoms or any emergent concern call 911 or go to the nearest emergency room continue to take the medication which was prescribed by the previous provider Print Language: Upper Sorbian Stand Alone Forms: Tami Award Info., Patient Portal Info Letter PA/DEVYN Supervising Physician PA/DEVYN Supervising Physician: dr zimmerman [facility] Narrative [facility] hospital course: This is a case of 45-year-old male who came in in the emergency room due to bilateral leg pain patient have history of multiple ER visits and this is his fifth visit today I saw this patient 3 hours ago and discharge with chronic lower leg pain there is no other symptoms noted with this patient no numbness no weakness no tingling sensation patient physical examination was the same from my previous exam 3 hours ago patient was told to follow-up with PCP for reevaluation and take the medication that was prescribed with him with the previous provider patient understands very well the discharge instruction and agreed with the treatment plan and discharge Patient was discharged with comfortable condition walking with stable gait. Patient verbalized no further complains explained diagnosis and answered patient question. Patient is comfortable with the proposed management plan including the need to follow up with his/her primary care physician and any specialist if applicable Discussed patient for any urgent condition or worsening sx, He/She needed to go to emergency room immediately or call 911. Patient acknowledge the responsibility to follow up as instructed and to monitor her/his symptoms. For any persistence of the symptoms for more than 3-5 days return precaution advised. Discussed the result of the test and was given printed discharge instruction Clinical Information Provided by none Medical Records Reviewed None Labs/Rad/Tests considered, not Ordered None Chronic Illness/Social Conditions which may negatively complicate care or outcome(s)-explain: None or not applicable EKG EKG not done Lab Interpretation Labs: none Imaging Imaging interpretation: none Medication Administration(s) none Diagnosis Differential diagnosis: Chronic lower extremities pain Differential dx and/or dx ruled out: Chronic lower extremities pain Most likely dx, and/or detailed dx discussion: Chronic lower extremity pain Dispositon Disposition: Discharge Home
== END 2025-07-07 01:45 | disposition left against medical advice (07) ==
PROVIDERS: Emergency Provider Family Medicine; PCP Family Medicine
DX: G89.29 Other chronic pain (principal); M79.661 Pain in right lower leg; M79.662 Pain in left lower leg; F17.210 Nicotine dependence, cigarettes, uncomplicated; Z86.73 Personal history of transient ischemic attack (TIA), and cerebral infarction without residual deficits; Z53.29 Procedure and treatment not carried out because of patient's decision for other reasons
CPT/HCPCS: 99282

== ENCOUNTER 2025-07-07 02:08 | Emergency (ER) | payer MEDICAID, SELFPAY ==
[2025-07-07 02:08] VITALS: BMI 27.3
[2025-07-07 02:51] VITALS: BP 123/74; PULSE 89; RESP 18; TEMP 36.8; O2SAT 96
--- NOTE | 2025-07-07 03:09 | EDNOTE_ITS ---
Lower Extremity Injury RME/HPI General Chief Complaint: Extremity Injury, Lower Stated Complaint: LEG PAIN Time Seen by Provider: 07/07/25 02:28 Arrival date/time: 07/07/25 02:08 RME / HPI RME / HPI Narrative: See MDM for HPI documentation. Related Data Previous Rx's ?Medication ?Instructions ?Recorded sulfamethoxazole 800 1 tab PO BID #14 tabs mg-trimethoprim 160 mg tablet (Bactrim DS) cyclobenzaprine 5 mg tablet 5 mg PO TID PRN muscle spa sm #30 07/23/23 tabs naproxen 500 mg tablet 500 mg PO BID PRN pain #30 t abs 07/23/23 naproxen 500 mg tablet 500 mg PO BID PRN pain #30 t abs 08/08/23 tamsulosin 0.4 mg capsule (Flomax) 0.4 mg PO QDAY #30 caps 08/08/23 baclofen 10 mg tablet 10 mg PO BID PRN muscle spas m #30 08/14/23 tabs naproxen 500 mg tablet 500 mg PO BID PRN pain #30 t abs 08/14/23 ibuprofen 800 mg tablet 800 mg PO TID PRN pain #30 t abs 08/28/23 ibuprofen 600 mg tablet 600 mg PO Q6H PRN pain #30 t abs 01/27/24 methocarbamol 500 mg tablet 1,000 mg (2 x 500 mg) PO Q 8H PRN 01/27/24 pain #30 tabs naproxen 500 mg tablet (Naprosyn) 500 mg PO BID #14 ta bs 03/15/24 ibuprofen 800 mg tablet 800 mg PO TID PRN pain #30 t abs 04/02/24 cyclobenzaprine 5 mg tablet 5 mg PO TID PRN muscle spa sm #14 04/07/24 tabs ibuprofen 600 mg tablet 600 mg PO Q6H PRN fever or p ain 04/07/24 #30 tabs ibuprofen 600 mg tablet 600 mg PO Q6H PRN pain #30 t abs 04/07/24 cyclobenzaprine 5 mg tablet 5 mg PO TID PRN muscle spa sm #30 04/11/24 tabs naproxen 500 mg tablet 500 mg PO BID PRN pain #30 t abs 04/11/24 ibuprofen 600 mg tablet 600 mg PO Q8H PRN pain #20 t abs 11/03/24 acetaminophen 500 mg capsule 500 mg PO Q6H PRN pain #3 0 caps 12/03/24 acetaminophen 500 mg capsule 500 mg PO Q6H PRN pain #3 0 caps 12/15/24 cyclobenzaprine 5 mg tablet 5 mg PO TID PRN muscle spa sm #15 12/20/24 tabs lidocaine 5 % topical patch 2 patch topical QDAY PRN p ain #30 12/20/24 (Lidoderm) ea naproxen 500 mg tablet 500 mg PO BID PRN pain #14 t abs 04/04/25 bacitracin 500 unit/gram topical 1 applic topical Q12H #28 grams 07/03/25 ointment ibuprofen 800 mg tablet 800 mg PO Q8H PRN pain #30 t abs 07/03/25 Allergies Allergy/AdvReac Type Severity Reaction Status Date / Time No Known Allergies Allergy Verified 07/08/25 20:05 Review of Systems Review of Systems Systems Reviewed: All systems reviewed, normal except as documented Past Medical History Past Medical History NEUROLOGIC: Positive Cerebrovascular Accident; Negative Neurological Disorders CARDIAC: Positive Myocardial Infarction and Hypercholesterolemia; Negative Cardiac Disorders or Congestive Heart Failure RESPIRATORY: Negative Chronic Obstructive Pulmonary Disease (COPD) or Asthma GASTROINTESTINAL: Negative Gastrointestinal Disorders GENITOURINARY: Negative Genitourinary Disorders or Renal Disease MUSCULOSKELETAL: Negative Musculoskeletal Disorders ENDOCRINE: Negative Endocrine Disorders, Diabetes Mellitus Type 1 or Diabetes Mellitus Type 2 HEMATOLOGIC: Negative Blood Disorders or Sickle Cell Disease OTHER HISTORY: Negative Autoimmune Disease or Clostridium Difficile Social History SMOKING STATUS: Never smoker SUBSTANCE USE: methamphetamine ED Exam Narrative Physical exam: See MDM for physical exam documentation. Course Quality Measures none Orders Category Date Time Status Ketorolac Inj [Toradol Inj] Med 07/07/25 04:46 Discontinued 60 mg IM X1 ONE Vital Signs Vital signs: Vital Signs Temperature 98.3 F 07/07/25 02:51 Pulse Rate 89 07/07/25 02:51 Respiratory Rate 18 07/07/25 02:51 Blood Pressure 123/74 07/07/25 02:51 Pulse Oximetry (%) 96 07/07/25 02:51 Oxygen Delivery Method Room Air 07/07/25 02:51 Extremity Injury, Lower MDM Narrative MDM Narrative:: This section includes all my notes and documentations, including HPI, PE, and ED course. Stephen Gallardo MD HPI: 45yo male here with chronic bilateral lower extremity pain. He has multiple visits here with the same complaint of leg pain. Has trouble localizing the pain. Has trouble describing the quality and quality of the pain. Has trouble describing exacerbating factors or relieving factors. No recent falls or injuries. No other complaints reported. ROS: All negative except as documented in HPI. Physical Exam: General: Alert and oriented. No acute distress when remaining still. Eyes: Conjunctivae and lids clear. ENT: No nasal congestion. Neck: Supple. Lungs: No respiratory distress. Skin: Warm and dry. Neuro: Alert and oriented X 3. Musculoskeletal: All major bones and joints are nontender with no limited range of motion. Patient requested Toradol and 60 mg IM ordered. Before I was able to enter any other orders, I was told the patient eloped. Stephen Gallardo MD Patient data External records reviewed:: [facility] previous records (Per chart review, patient has been seen here multiple times for the same complaint.) Clinical information provided by:: patient Social determinants that could affect healthcare access:: none Patient has the following chronic illnesses:: HLD How is presenting disease/condition affected by chronic disease/condition?: uneffected by Evaluation data The following diagnostics were reviewed and interpreted by me:: other (specify) (none) Lab and/or radiology exams considered but not ordered:: none Interpretation Summary: none Medications / Prescriptions Medications or Prescriptions considered but not ordered:: none Medication administrations:: Medication Administration History Discontinued Medications Ketorolac Tromethamine (Ketorolac Inj 60 Mg/2 Ml Vial) 60 mg IM X1 ONE Stop: 07/07/25 04:47 none Consultations Consultation(s) initiated? (list below): No Diagnosis Extremity Injury, Lower Differential Diagnosis: other (Sprain, strain, fracture, psychogenic) Most likely diagnosis given after review of the tests above:: Patient eloped prior to full evaluation and treatment. Admission Indicated Admission indicated?: not indicated Explain why admission is indicated or not indicated:: Patient eloped. Admission Request Was there a request for admission?: No Disposition Plan Disposition Plan: other (specify) (Elopement) Discharge Plan Plan Patient Disposition: Elopement Prescriptions/Referrals Prescriptions/Med Rec: No Action naproxen 500 mg tablet 500 mg PO BID PRN (Reason: pain) Qty: 30 0RF cyclobenzaprine 5 mg tablet 5 mg PO TID PRN (Reason: muscle spasm) Qty: 30 0RF naproxen 500 mg tablet 500 mg PO BID PRN (Reason: pain) Qty: 30 0RF baclofen 10 mg tablet 10 mg PO BID PRN (Reason: muscle spasm) Qty: 30 0RF ibuprofen 800 mg tablet 800 mg PO TID PRN (Reason: pain) Qty: 30 0RF ibuprofen 800 mg tablet 800 mg PO TID PRN (Reason: pain) Qty: 30 0RF ibuprofen 600 mg tablet 600 mg PO Q6H PRN (Reason: pain) Qty: 30 0RF ibuprofen 600 mg tablet 600 mg PO Q8H PRN (Reason: pain) Qty: 20 0RF acetaminophen 500 mg capsule 500 mg PO Q6H PRN (Reason: pain) Qty: 30 0RF lidocaine [Lidoderm] 5 % adhesive patch,medicated 2 patch topical QDAY PRN (Reason: pain) Qty: 30 0RF Rx Instructions: leave on most painful area for up to 12 hrs cyclobenzaprine 5 mg tablet 5 mg PO TID PRN (Reason: muscle spasm) Qty: 15 0RF naproxen 500 mg tablet 500 mg PO BID PRN (Reason: pain) Qty: 14 0RF bacitracin 500 unit/gram ointment 1 applic topical Q12H Qty: 28 0RF ibuprofen 800 mg tablet 800 mg PO Q8H PRN (Reason: pain) Qty: 30 0RF sulfamethoxazole-trimethoprim [Bactrim DS] 800-160 mg tablet 1 tab PO BID Qty: 14 0RF naproxen 500 mg tablet 500 mg PO BID PRN (Reason: pain) Qty: 30 0RF tamsulosin [Flomax] 0.4 mg capsule 0.4 mg PO QDAY Qty: 30 0RF ibuprofen 600 mg tablet 600 mg PO Q6H PRN (Reason: pain) Qty: 30 0RF methocarbamol 500 mg tablet 1,000 mg PO Q8H PRN (Reason: pain) Qty: 30 0RF naproxen [Naprosyn] 500 mg tablet 500 mg PO BID Qty: 14 0RF ibuprofen 600 mg tablet 600 mg PO Q6H PRN (Reason: fever or pain) Qty: 30 0RF cyclobenzaprine 5 mg tablet 5 mg PO TID PRN (Reason: muscle spasm) Qty: 14 0RF naproxen 500 mg tablet 500 mg PO BID PRN (Reason: pain) Qty: 30 0RF cyclobenzaprine 5 mg tablet 5 mg PO TID PRN (Reason: muscle spasm) Qty: 30 0RF acetaminophen 500 mg capsule 500 mg PO Q6H PRN (Reason: pain) Qty: 30 0RF Referrals: No Primary/Family,Physician [Primary Care Provider] - In 1 week Problem List Clinical Impression: Leg pain Patient/Caregiver Discharge Instructions Print Language: Thai
--- NOTE | 2025-07-07 04:53 | PC.NURSE ---
CALLED PT FOR MEDS [id number] NO ANSWER, PER SECURITY PT LEFT
--- NOTE | 2025-07-07 05:02 | PC.NURSE ---
called pt for meds no answer this is the second time called for meds
--- NOTE | 2025-07-07 05:05 | PC.NURSE ---
per security pt left er, will call once more to give medication
--- NOTE | 2025-07-07 05:19 | PC.NURSE ---
no answer [phone] per security pt left
== END 2025-07-07 05:20 | disposition left against medical advice (07) ==
PROVIDERS: Emergency Provider Emergency Medicine
DX: M79.605 Pain in left leg (principal); M79.604 Pain in right leg; G89.29 Other chronic pain; E78.5 Hyperlipidemia, unspecified; Z53.29 Procedure and treatment not carried out because of patient's decision for other reasons
CPT/HCPCS: 99282

== ENCOUNTER 2025-07-07 07:32 | Emergency (ER) | payer MEDICAID, SELFPAY ==
[2025-07-07 07:36] VITALS: PULSE 84; RESP 18; O2SAT 99
[2025-07-07 08:00] VITALS: BP 134/84; PULSE 86; RESP 18; TEMP 36.7; O2SAT 98; BMI 27.1
--- NOTE | 2025-07-07 08:07 | EDNOTE_ITS ---
<Statement entered by Annemarie Cortez MD - 07/21/25 06:28> As co-signing physician, I was present and available for consult prn. I concur with the plan and care as documented by the midlevel provider. Lower Extremity Injury RME/HPI General Chief Complaint: General Adult/Misc Complain Stated Complaint: LEG PAIN Time Seen by Provider: 07/07/25 07:45 Source: patient Arrival date/time: 07/07/25 07:32 45-year-old male with a history of chronic leg pain presents to the emergency room with a chief complaint of leg pain. Mode of arrival: ambulatory Limitations: no limitations Related Data Previous Rx's ?Medication ?Instructions ?Recorded sulfamethoxazole 800 1 tab PO BID #14 tabs mg-trimethoprim 160 mg tablet (Bactrim DS) cyclobenzaprine 5 mg tablet 5 mg PO TID PRN muscle spa sm #30 07/23/23 tabs naproxen 500 mg tablet 500 mg PO BID PRN pain #30 t abs 07/23/23 naproxen 500 mg tablet 500 mg PO BID PRN pain #30 t abs 08/08/23 tamsulosin 0.4 mg capsule (Flomax) 0.4 mg PO QDAY #30 caps 08/08/23 baclofen 10 mg tablet 10 mg PO BID PRN muscle spas m #30 08/14/23 tabs naproxen 500 mg tablet 500 mg PO BID PRN pain #30 t abs 08/14/23 ibuprofen 800 mg tablet 800 mg PO TID PRN pain #30 t abs 08/28/23 ibuprofen 600 mg tablet 600 mg PO Q6H PRN pain #30 t abs 01/27/24 methocarbamol 500 mg tablet 1,000 mg (2 x 500 mg) PO Q 8H PRN 01/27/24 pain #30 tabs naproxen 500 mg tablet (Naprosyn) 500 mg PO BID #14 ta bs 03/15/24 ibuprofen 800 mg tablet 800 mg PO TID PRN pain #30 t abs 04/02/24 cyclobenzaprine 5 mg tablet 5 mg PO TID PRN muscle spa sm #14 04/07/24 tabs ibuprofen 600 mg tablet 600 mg PO Q6H PRN fever or p ain 04/07/24 #30 tabs ibuprofen 600 mg tablet 600 mg PO Q6H PRN pain #30 t abs 04/07/24 cyclobenzaprine 5 mg tablet 5 mg PO TID PRN muscle spa sm #30 04/11/24 tabs naproxen 500 mg tablet 500 mg PO BID PRN pain #30 t abs 04/11/24 ibuprofen 600 mg tablet 600 mg PO Q8H PRN pain #20 t abs 11/03/24 acetaminophen 500 mg capsule 500 mg PO Q6H PRN pain #3 0 caps 12/03/24 acetaminophen 500 mg capsule 500 mg PO Q6H PRN pain #3 0 caps 12/15/24 cyclobenzaprine 5 mg tablet 5 mg PO TID PRN muscle spa sm #15 12/20/24 tabs lidocaine 5 % topical patch 2 patch topical QDAY PRN p ain #30 12/20/24 (Lidoderm) ea naproxen 500 mg tablet 500 mg PO BID PRN pain #14 t abs 04/04/25 bacitracin 500 unit/gram topical 1 applic topical Q12H #28 grams 07/03/25 ointment ibuprofen 800 mg tablet 800 mg PO Q8H PRN pain #30 t abs 07/03/25 Allergies Allergy/AdvReac Type Severity Reaction Status Date / Time No Known Allergies Allergy Verified 07/07/25 07:36 Review of Systems Review of Systems Systems Reviewed: All systems reviewed, normal except as documented Constitutional Constitutional: Reports system reviewed and no additional complaints, except as documented, Denies fatigue, Denies fever(s), Denies headache(s) and Denies weakness Eyes Eyes: Reports system reviewed and no additional complaints, except as documented, Denies blurry vision and Denies change in vision ENT Ears, Nose, Mouth, and Throat: Reports system reviewed and no additional complaints, except as documented, Denies otalgia, Denies headache(s), Denies nasal congestion, Denies throat swelling and Denies vertigo Cardiovascular Cardiovascular: Reports system reviewed and no additional complaints, except as documented, Denies chest pain, Denies dyspnea and Denies dyspnea on exertion Respiratory Respiratory: Reports system reviewed and no additional complaints, except as documented, Denies chest congestion, Denies cough, Denies dyspnea, Denies dyspnea on exertion and Denies wheezing Gastrointestinal Gastrointestinal: Reports system reviewed and no additional complaints, except as documented, Denies abdominal pain, Denies cramping, Denies nausea and Denies vomiting Genitourinary Genitourinary: Reports system reviewed and no additional complaints, except as documented, Denies dysuria and Denies hematuria Musculoskeletal Musculoskeletal: Reports system reviewed and no additional complaints, except as documented and Denies back pain Integumentary/Breasts Skin/Breast: Reports system reviewed and no additional complaints, except as documented and Denies wounds Neurologic Neurologic: Reports system reviewed and no additional complaints, except as documented, Denies confusion, Denies headache(s), Denies lack of coordination, Denies vertigo and Denies weakness Psychiatric Psychiatric: Reports system reviewed and no additional complaints, except as documented, Denies anxiety, Denies confusion, Denies depression, Denies paranoia, Denies suicidal ideation and Denies tactile hallucinations Endocrine Endocrine: Reports system reviewed and no additional complaints, except as documented and Denies fatigue Hematologic/Lymphatic Hematologic/Lymphatic: Reports system reviewed and no additional complaints, except as documented and Denies lymphadenopathy Allergic/Immunologic Allergic/Immunologic: Reports system reviewed and no additional complaints, except as documented, Denies throat swelling, Denies urticaria and Denies wheezing Past Medical History Past Medical History NEUROLOGIC: Positive Cerebrovascular Accident; Negative Neurological Disorders CARDIAC: Positive Myocardial Infarction and Hypercholesterolemia; Negative Cardiac Disorders or Congestive Heart Failure RESPIRATORY: Negative Chronic Obstructive Pulmonary Disease (COPD) or Asthma GASTROINTESTINAL: Negative Gastrointestinal Disorders GENITOURINARY: Negative Genitourinary Disorders or Renal Disease MUSCULOSKELETAL: Negative Musculoskeletal Disorders ENDOCRINE: Negative Endocrine Disorders, Diabetes Mellitus Type 1 or Diabetes Mellitus Type 2 HEMATOLOGIC: Negative Blood Disorders or Sickle Cell Disease OTHER HISTORY: Negative Autoimmune Disease or Clostridium Difficile Social History SMOKING STATUS: Current every day smoker SUBSTANCE USE: methamphetamine ED Exam General Limitations: Present no limitations General appearance: Present alert and in no apparent distress Head Head exam: Present atraumatic Eye Eye exam: Present normal appearance, PERRL and EOMI ENT ENT exam: Present normal exam, normal oropharynx and mucous membranes moist Neck Neck exam: Present normal inspection, full ROM and trachea midline Chest Chest inspection: Present normal inspection and symmetric chest wall rise Respiratory Respiratory exam: Present normal lung sounds bilaterally Cardiovascular Cardiovascular exam: Present regular rate, normal rhythm and normal heart sounds Abdominal Exam Abdominal exam: Present soft and normal bowel sounds Extremities Exam Extremities exam: Present normal inspection and full ROM Expanded Lower Extremity Exam Hip/Pelvis exam: Present normal inspection Upper leg exam: Present normal inspection Knee exam: Present normal inspection Lower leg exam: Present full ROM and tenderness Ankle exam: Present normal inspection Foot/toe exam: Present normal inspection Gait: observed and normal Back Exam Back exam: Present normal inspection and full ROM Neurological Exam Neurological exam: Present alert, oriented X3 and CN II-XII intact Psychiatric Psychiatric exam: Present normal affect and normal mood Skin Skin exam: Present warm, dry, intact and normal color Course Quality Measures none Orders Category Date Time Status Ketorolac Inj [Toradol Inj] Med 07/07/25 08:02 Discontinued 30 mg IM X1 ONE Vital Signs Vital signs: Vital Signs Temperature 98.0 F 07/07/25 08:00 Pulse Rate 86 07/07/25 08:00 Respiratory Rate 18 07/07/25 08:00 Blood Pressure 134/84 H 07/07/25 08:00 Pulse Oximetry (%) 98 07/07/25 08:00 Oxygen Delivery Method Room Air 07/07/25 08:00 Extremity Injury, Lower MDM Narrative MDM Narrative:: 45-year-old male with a history of chronic leg pain presents to the emergency room with a chief complaint of leg pain. Patient is hemodynamically stable and in no apparent distress. Patient is a frequent flyer and was seen here on 5 different occasions yesterday. I spoke to the patient and his only complaint is bilateral lower leg pain and is he is wanting a Toradol shot since he does not have any pain medication at home and he is homeless. The patient was given pain medication and the patient does not have any other complaints. The patient has had multiple social work therapist workups and has even been placed in a bed facility before. The charge nurse and director are made aware of the patient's frequent visiting for pain medication as well as food. I spoke to the patient and he states he has no other complaints. Patient was discharged Patient data External records reviewed:: [facility] previous records Clinical information provided by:: patient Social determinants that could affect healthcare access:: none Patient has the following chronic illnesses:: No chronic illness How is presenting disease/condition affected by chronic disease/condition?: no chronic disease Evaluation data The following diagnostics were reviewed and interpreted by me:: lab results and radiology exam(s) Lab and/or radiology exams considered but not ordered:: Labs and radiology exams considered and ordered Interpretation Summary: N/A Medications / Prescriptions Medications or Prescriptions considered but not ordered:: Medication given Medication administrations:: Medication Administration History Discontinued Medications Ketorolac Tromethamine (Ketorolac Inj 60 Mg/2 Ml Vial) 30 mg IM X1 ONE Stop: 07/07/25 08:03 Last Admin: 07/07/25 08:24 Dose: 30 mg Documented By: DO Medication given Consultations Consultation(s) initiated? (list below): No Diagnosis Extremity Injury, Lower Differential Diagnosis: other (Chronic leg pain) Most likely diagnosis given after review of the tests above:: Chronic leg pain Admission Indicated Admission indicated?: not indicated Admission Request Was there a request for admission?: No Disposition Plan Disposition Plan: Discharge Discharge Attestation Discharge Attestation: The patient and all family members were given an opportunity to ask questions and understood the discharge instructions. Discharge instructions specifically effects, indications for sooner follow up or return to the emergency department, and the expected course of current diagnosis. Patient condition: Stable Discharge Plan Plan Patient Disposition: HOME (Self Care) Discharge Disposition comment: Stable Prescriptions/Referrals Prescriptions/Med Rec: No Action naproxen 500 mg tablet 500 mg PO BID PRN (Reason: pain) Qty: 30 0RF cyclobenzaprine 5 mg tablet 5 mg PO TID PRN (Reason: muscle spasm) Qty: 30 0RF naproxen 500 mg tablet 500 mg PO BID PRN (Reason: pain) Qty: 30 0RF baclofen 10 mg tablet 10 mg PO BID PRN (Reason: muscle spasm) Qty: 30 0RF ibuprofen 800 mg tablet 800 mg PO TID PRN (Reason: pain) Qty: 30 0RF ibuprofen 800 mg tablet 800 mg PO TID PRN (Reason: pain) Qty: 30 0RF ibuprofen 600 mg tablet 600 mg PO Q6H PRN (Reason: pain) Qty: 30 0RF ibuprofen 600 mg tablet 600 mg PO Q8H PRN (Reason: pain) Qty: 20 0RF acetaminophen 500 mg capsule 500 mg PO Q6H PRN (Reason: pain) Qty: 30 0RF lidocaine [Lidoderm] 5 % adhesive patch,medicated 2 patch topical QDAY PRN (Reason: pain) Qty: 30 0RF Rx Instructions: leave on most painful area for up to 12 hrs cyclobenzaprine 5 mg tablet 5 mg PO TID PRN (Reason: muscle spasm) Qty: 15 0RF naproxen 500 mg tablet 500 mg PO BID PRN (Reason: pain) Qty: 14 0RF bacitracin 500 unit/gram ointment 1 applic topical Q12H Qty: 28 0RF ibuprofen 800 mg tablet 800 mg PO Q8H PRN (Reason: pain) Qty: 30 0RF sulfamethoxazole-trimethoprim [Bactrim DS] 800-160 mg tablet 1 tab PO BID Qty: 14 0RF naproxen 500 mg tablet 500 mg PO BID PRN (Reason: pain) Qty: 30 0RF tamsulosin [Flomax] 0.4 mg capsule 0.4 mg PO QDAY Qty: 30 0RF ibuprofen 600 mg tablet 600 mg PO Q6H PRN (Reason: pain) Qty: 30 0RF methocarbamol 500 mg tablet 1,000 mg PO Q8H PRN (Reason: pain) Qty: 30 0RF naproxen [Naprosyn] 500 mg tablet 500 mg PO BID Qty: 14 0RF ibuprofen 600 mg tablet 600 mg PO Q6H PRN (Reason: fever or pain) Qty: 30 0RF cyclobenzaprine 5 mg tablet 5 mg PO TID PRN (Reason: muscle spasm) Qty: 14 0RF naproxen 500 mg tablet 500 mg PO BID PRN (Reason: pain) Qty: 30 0RF cyclobenzaprine 5 mg tablet 5 mg PO TID PRN (Reason: muscle spasm) Qty: 30 0RF acetaminophen 500 mg capsule 500 mg PO Q6H PRN (Reason: pain) Qty: 30 0RF Referrals: Lavell (PCP),MD Cody [Primary Care Provider] - In 1 week Problem List Clinical Impression: Chronic leg pain, Homeless Patient/Caregiver Discharge Instructions Education Materials: ED Chronic Pain Additional Instructions: Please follow-up with your primary care provider in the next 24 to 48 hours For any evidence of worsening signs or symptoms return to the emergency room immediately Print Language: Kenyan Stand Alone Forms: Tami Award Info., Patient Portal Info Letter PA/ELECTRICAL LINESWORKER Supervising Physician PA/ELECTRICAL LINESWORKER Supervising Physician: Dr. CORTEZ
[2025-07-07] MEDS: KETOROLAC INJ 60 MG/2 ML VIAL 30 MG IM (08:24)
== END 2025-07-07 10:51 | disposition home or self-care (01) ==
PROVIDERS: Emergency Provider Emergency Medicine; PCP Family Medicine
DX: G89.29 Other chronic pain (principal); M79.606 Pain in leg, unspecified; F17.210 Nicotine dependence, cigarettes, uncomplicated; Z59.00 Homelessness unspecified
CPT/HCPCS: 96372; 99282; J1885

== ENCOUNTER 2025-07-07 12:58 | Emergency (ER) | payer MEDICAID, SELFPAY ==
[2025-07-07 13:39] VITALS: PULSE 78; O2SAT 97
--- NOTE | 2025-07-07 14:24 | EDNOTE_ITS ---
<Statement entered by Annemarie Cortez MD - 07/21/25 06:25> As co-signing physician, I was present and available for consult prn. I concur with the plan and care as documented by the midlevel provider. Lower Extremity Injury RME/HPI General Chief Complaint: Extremity Injury, Lower Stated Complaint: LEG PAIN Time Seen by Provider: 07/07/25 13:42 Source: patient Arrival date/time: 07/07/25 12:58 45-year-old male with a history of chronic back pain presents to the emergency room with a chief complaint of leg pain x 6 months Mode of arrival: ambulatory Limitations: no limitations Related Data Previous Rx's ?Medication ?Instructions ?Recorded sulfamethoxazole 800 1 tab PO BID #14 tabs mg-trimethoprim 160 mg tablet (Bactrim DS) cyclobenzaprine 5 mg tablet 5 mg PO TID PRN muscle spa sm #30 07/23/23 tabs naproxen 500 mg tablet 500 mg PO BID PRN pain #30 t abs 07/23/23 naproxen 500 mg tablet 500 mg PO BID PRN pain #30 t abs 08/08/23 tamsulosin 0.4 mg capsule (Flomax) 0.4 mg PO QDAY #30 caps 08/08/23 baclofen 10 mg tablet 10 mg PO BID PRN muscle spas m #30 08/14/23 tabs naproxen 500 mg tablet 500 mg PO BID PRN pain #30 t abs 08/14/23 ibuprofen 800 mg tablet 800 mg PO TID PRN pain #30 t abs 08/28/23 ibuprofen 600 mg tablet 600 mg PO Q6H PRN pain #30 t abs 01/27/24 methocarbamol 500 mg tablet 1,000 mg (2 x 500 mg) PO Q 8H PRN 01/27/24 pain #30 tabs naproxen 500 mg tablet (Naprosyn) 500 mg PO BID #14 ta bs 03/15/24 ibuprofen 800 mg tablet 800 mg PO TID PRN pain #30 t abs 04/02/24 cyclobenzaprine 5 mg tablet 5 mg PO TID PRN muscle spa sm #14 04/07/24 tabs ibuprofen 600 mg tablet 600 mg PO Q6H PRN fever or p ain 04/07/24 #30 tabs ibuprofen 600 mg tablet 600 mg PO Q6H PRN pain #30 t abs 04/07/24 cyclobenzaprine 5 mg tablet 5 mg PO TID PRN muscle spa sm #30 04/11/24 tabs naproxen 500 mg tablet 500 mg PO BID PRN pain #30 t abs 04/11/24 ibuprofen 600 mg tablet 600 mg PO Q8H PRN pain #20 t abs 11/03/24 acetaminophen 500 mg capsule 500 mg PO Q6H PRN pain #3 0 caps 12/03/24 acetaminophen 500 mg capsule 500 mg PO Q6H PRN pain #3 0 caps 12/15/24 cyclobenzaprine 5 mg tablet 5 mg PO TID PRN muscle spa sm #15 12/20/24 tabs lidocaine 5 % topical patch 2 patch topical QDAY PRN p ain #30 12/20/24 (Lidoderm) ea naproxen 500 mg tablet 500 mg PO BID PRN pain #14 t abs 04/04/25 bacitracin 500 unit/gram topical 1 applic topical Q12H #28 grams 07/03/25 ointment ibuprofen 800 mg tablet 800 mg PO Q8H PRN pain #30 t abs 07/03/25 Allergies Allergy/AdvReac Type Severity Reaction Status Date / Time No Known Allergies Allergy Verified 07/07/25 13:38 Review of Systems Review of Systems Systems Reviewed: All systems reviewed, normal except as documented Constitutional Constitutional: Reports system reviewed and no additional complaints, except as documented, Denies fatigue, Denies fever(s), Denies headache(s) and Denies weakness Eyes Eyes: Reports system reviewed and no additional complaints, except as documented, Denies blurry vision and Denies change in vision ENT Ears, Nose, Mouth, and Throat: Reports system reviewed and no additional complaints, except as documented, Denies otalgia, Denies headache(s), Denies nasal congestion, Denies throat swelling and Denies vertigo Cardiovascular Cardiovascular: Reports system reviewed and no additional complaints, except as documented, Denies chest pain, Denies dyspnea and Denies dyspnea on exertion Respiratory Respiratory: Reports system reviewed and no additional complaints, except as documented, Denies chest congestion, Denies cough, Denies dyspnea, Denies dyspnea on exertion and Denies wheezing Gastrointestinal Gastrointestinal: Reports system reviewed and no additional complaints, except as documented, Denies abdominal pain, Denies cramping, Denies nausea and Denies vomiting Genitourinary Genitourinary: Reports system reviewed and no additional complaints, except as documented, Denies dysuria and Denies hematuria Musculoskeletal Musculoskeletal: Reports system reviewed and no additional complaints, except as documented and Denies back pain Integumentary/Breasts Skin/Breast: Reports system reviewed and no additional complaints, except as documented and Denies wounds Neurologic Neurologic: Reports system reviewed and no additional complaints, except as documented, Denies confusion, Denies headache(s), Denies lack of coordination, Denies vertigo and Denies weakness Psychiatric Psychiatric: Reports system reviewed and no additional complaints, except as documented, Denies anxiety, Denies confusion, Denies depression, Denies paranoia, Denies suicidal ideation and Denies tactile hallucinations Endocrine Endocrine: Reports system reviewed and no additional complaints, except as documented and Denies fatigue Hematologic/Lymphatic Hematologic/Lymphatic: Reports system reviewed and no additional complaints, except as documented and Denies lymphadenopathy Allergic/Immunologic Allergic/Immunologic: Reports system reviewed and no additional complaints, except as documented, Denies throat swelling, Denies urticaria and Denies wheezing Past Medical History Past Medical History NEUROLOGIC: Positive Cerebrovascular Accident; Negative Neurological Disorders CARDIAC: Positive Myocardial Infarction and Hypercholesterolemia; Negative Cardiac Disorders or Congestive Heart Failure RESPIRATORY: Negative Chronic Obstructive Pulmonary Disease (COPD) or Asthma GASTROINTESTINAL: Negative Gastrointestinal Disorders GENITOURINARY: Negative Genitourinary Disorders or Renal Disease MUSCULOSKELETAL: Negative Musculoskeletal Disorders ENDOCRINE: Negative Endocrine Disorders, Diabetes Mellitus Type 1 or Diabetes Mellitus Type 2 HEMATOLOGIC: Negative Blood Disorders or Sickle Cell Disease OTHER HISTORY: Negative Autoimmune Disease or Clostridium Difficile Social History SMOKING STATUS: Current every day smoker SUBSTANCE USE: methamphetamine ED Exam General Limitations: Present no limitations General appearance: Present alert and in no apparent distress Head Head exam: Present atraumatic Eye Eye exam: Present normal appearance, PERRL and EOMI ENT ENT exam: Present normal exam, normal oropharynx and mucous membranes moist Neck Neck exam: Present normal inspection, full ROM and trachea midline Chest Chest inspection: Present normal inspection and symmetric chest wall rise Respiratory Respiratory exam: Present normal lung sounds bilaterally Cardiovascular Cardiovascular exam: Present regular rate, normal rhythm and normal heart sounds Abdominal Exam Abdominal exam: Present soft and normal bowel sounds Extremities Exam Extremities exam: Present normal inspection and full ROM Back Exam Back exam: Present normal inspection and full ROM Neurological Exam Neurological exam: Present alert, oriented X3 and CN II-XII intact Psychiatric Psychiatric exam: Present normal affect and normal mood Skin Skin exam: Present warm, dry, intact and normal color Course Quality Measures none Vital Signs Vital signs: Vital Signs Temperature 98.2 F 07/07/25 15:01 Pulse Rate 88 07/07/25 15:01 Respiratory Rate 17 07/07/25 15:01 Blood Pressure 118/73 07/07/25 15:01 Pulse Oximetry (%) 97 07/07/25 15:01 Oxygen Delivery Method Room Air 07/07/25 15:01 Extremity Injury, Lower MDM Narrative MDM Narrative:: 45-year-old male with a history of chronic back pain presents to the emergency room with a chief complaint of chronic leg pain. When speaking to the patient the patient states he just wants a glass of water and pain medication. Patient is hemodynamically stable and in no apparent distress Patient seen multiple times a day here in our emergency room he is at his [place]. The patient denies any other complaints except leg pain Patient was discharged and educated to follow-up with primary care provider in the next 24 to 48 hours and return to the emergency room for any evidence of worsening signs or symptoms Patient data External records reviewed:: [facility] previous records Clinical information provided by:: patient Social determinants that could affect healthcare access:: housing Patient has the following chronic illnesses:: No chronic illness How is presenting disease/condition affected by chronic disease/condition?: no chronic disease Evaluation data The following diagnostics were reviewed and interpreted by me:: lab results and radiology exam(s) Lab and/or radiology exams considered but not ordered:: Labs and radiology exams considered and ordered Interpretation Summary: N/A Medications / Prescriptions Medications or Prescriptions considered but not ordered:: No medication given Medication administrations:: No medication given Consultations Consultation(s) initiated? (list below): No Diagnosis Extremity Injury, Lower Differential Diagnosis: other (Chronic leg pain/acute leg pain) Most likely diagnosis given after review of the tests above:: Chronic leg pain Admission Indicated Admission indicated?: not indicated Admission Request Was there a request for admission?: No Disposition Plan Disposition Plan: Discharge Discharge Attestation Discharge Attestation: The patient and all family members were given an opportunity to ask questions and understood the discharge instructions. Discharge instructions specifically effects, indications for sooner follow up or return to the emergency department, and the expected course of current diagnosis. Patient condition: Stable Discharge Plan Plan Patient Disposition: HOME (Self Care) Discharge Disposition comment: Stable Prescriptions/Referrals Prescriptions/Med Rec: No Action naproxen 500 mg tablet 500 mg PO BID PRN (Reason: pain) Qty: 30 0RF cyclobenzaprine 5 mg tablet 5 mg PO TID PRN (Reason: muscle spasm) Qty: 30 0RF naproxen 500 mg tablet 500 mg PO BID PRN (Reason: pain) Qty: 30 0RF baclofen 10 mg tablet 10 mg PO BID PRN (Reason: muscle spasm) Qty: 30 0RF ibuprofen 800 mg tablet 800 mg PO TID PRN (Reason: pain) Qty: 30 0RF ibuprofen 800 mg tablet 800 mg PO TID PRN (Reason: pain) Qty: 30 0RF ibuprofen 600 mg tablet 600 mg PO Q6H PRN (Reason: pain) Qty: 30 0RF ibuprofen 600 mg tablet 600 mg PO Q8H PRN (Reason: pain) Qty: 20 0RF acetaminophen 500 mg capsule 500 mg PO Q6H PRN (Reason: pain) Qty: 30 0RF lidocaine [Lidoderm] 5 % adhesive patch,medicated 2 patch topical QDAY PRN (Reason: pain) Qty: 30 0RF Rx Instructions: leave on most painful area for up to 12 hrs cyclobenzaprine 5 mg tablet 5 mg PO TID PRN (Reason: muscle spasm) Qty: 15 0RF naproxen 500 mg tablet 500 mg PO BID PRN (Reason: pain) Qty: 14 0RF bacitracin 500 unit/gram ointment 1 applic topical Q12H Qty: 28 0RF ibuprofen 800 mg tablet 800 mg PO Q8H PRN (Reason: pain) Qty: 30 0RF sulfamethoxazole-trimethoprim [Bactrim DS] 800-160 mg tablet 1 tab PO BID Qty: 14 0RF naproxen 500 mg tablet 500 mg PO BID PRN (Reason: pain) Qty: 30 0RF tamsulosin [Flomax] 0.4 mg capsule 0.4 mg PO QDAY Qty: 30 0RF ibuprofen 600 mg tablet 600 mg PO Q6H PRN (Reason: pain) Qty: 30 0RF methocarbamol 500 mg tablet 1,000 mg PO Q8H PRN (Reason: pain) Qty: 30 0RF naproxen [Naprosyn] 500 mg tablet 500 mg PO BID Qty: 14 0RF ibuprofen 600 mg tablet 600 mg PO Q6H PRN (Reason: fever or pain) Qty: 30 0RF cyclobenzaprine 5 mg tablet 5 mg PO TID PRN (Reason: muscle spasm) Qty: 14 0RF naproxen 500 mg tablet 500 mg PO BID PRN (Reason: pain) Qty: 30 0RF cyclobenzaprine 5 mg tablet 5 mg PO TID PRN (Reason: muscle spasm) Qty: 30 0RF acetaminophen 500 mg capsule 500 mg PO Q6H PRN (Reason: pain) Qty: 30 0RF Referrals: Lavell (PCP),MD Cody [Primary Care Provider] - In 1 week Problem List Clinical Impression: Chronic leg pain Patient/Caregiver Discharge Instructions Education Materials: ED Chronic Pain Additional Instructions: Please follow-up with your primary care provider in the next 24 to 48 hours For any evidence of worsening signs or symptoms return to the emergency room immediately Print Language: Portuguese Stand Alone Forms: Tami Award Info., Patient Portal Info Letter PA/[employer] Supervising Physician FAINA/DEVYN Supervising Physician: Dr. CORTEZ
[2025-07-07 15:01] VITALS: BP 118/73; PULSE 88; RESP 17; TEMP 36.8; O2SAT 97
== END 2025-07-07 16:55 | disposition home or self-care (01) ==
PROVIDERS: Emergency Provider Emergency Medicine; PCP Family Medicine
DX: G89.29 Other chronic pain (principal); M79.606 Pain in leg, unspecified; F17.210 Nicotine dependence, cigarettes, uncomplicated
CPT/HCPCS: 99282

== ENCOUNTER 2025-07-07 18:26 | Emergency (ER) | payer MEDICAID, SELFPAY ==
[2025-07-07 18:51] VITALS: PULSE 88; RESP 18; O2SAT 99
[2025-07-07 19:20] VITALS: BP 129/86; PULSE 78; RESP 20; TEMP 37.1; O2SAT 98
--- NOTE | 2025-07-07 19:29 | EDNOTE_ITS ---
Lower Extremity Injury RME/HPI General Chief Complaint: General Adult/Misc Complain Stated Complaint: LEG PAIN Time Seen by Provider: 07/07/25 18:31 Arrival date/time: 07/07/25 18:26 This is a case of a 45-year-old male with no medical history came in in the emergency room due to lower extremities pain chronic in character patient had multiple visit here in the emergency room patient had 5 visit ER yesterday patient denies any injury or trauma denies any numbness weakness tingling sensation Related Data Previous Rx's ?Medication ?Instructions ?Recorded sulfamethoxazole 800 1 tab PO BID #14 tabs mg-trimethoprim 160 mg tablet (Bactrim DS) cyclobenzaprine 5 mg tablet 5 mg PO TID PRN muscle spa sm #30 07/23/23 tabs naproxen 500 mg tablet 500 mg PO BID PRN pain #30 t abs 07/23/23 naproxen 500 mg tablet 500 mg PO BID PRN pain #30 t abs 08/08/23 tamsulosin 0.4 mg capsule (Flomax) 0.4 mg PO QDAY #30 caps 08/08/23 baclofen 10 mg tablet 10 mg PO BID PRN muscle spas m #30 08/14/23 tabs naproxen 500 mg tablet 500 mg PO BID PRN pain #30 t abs 08/14/23 ibuprofen 800 mg tablet 800 mg PO TID PRN pain #30 t abs 08/28/23 ibuprofen 600 mg tablet 600 mg PO Q6H PRN pain #30 t abs 01/27/24 methocarbamol 500 mg tablet 1,000 mg (2 x 500 mg) PO Q 8H PRN 01/27/24 pain #30 tabs naproxen 500 mg tablet (Naprosyn) 500 mg PO BID #14 ta bs 03/15/24 ibuprofen 800 mg tablet 800 mg PO TID PRN pain #30 t abs 04/02/24 cyclobenzaprine 5 mg tablet 5 mg PO TID PRN muscle spa sm #14 04/07/24 tabs ibuprofen 600 mg tablet 600 mg PO Q6H PRN fever or p ain 04/07/24 #30 tabs ibuprofen 600 mg tablet 600 mg PO Q6H PRN pain #30 t abs 04/07/24 cyclobenzaprine 5 mg tablet 5 mg PO TID PRN muscle spa sm #30 05/23/24 tabs naproxen 500 mg tablet 500 mg PO BID PRN pain #30 t abs 04/11/24 ibuprofen 600 mg tablet 600 mg PO Q8H PRN pain #20 t abs 11/03/24 acetaminophen 500 mg capsule 500 mg PO Q6H PRN pain #3 0 caps 12/03/24 acetaminophen 500 mg capsule 500 mg PO Q6H PRN pain #3 0 caps 12/15/24 cyclobenzaprine 5 mg tablet 5 mg PO TID PRN muscle spa sm #15 12/20/24 tabs lidocaine 5 % topical patch 2 patch topical QDAY PRN p ain #30 12/20/24 (Lidoderm) ea naproxen 500 mg tablet 500 mg PO BID PRN pain #14 t abs 04/04/25 bacitracin 500 unit/gram topical 1 applic topical Q12H #28 grams 07/03/25 ointment ibuprofen 800 mg tablet 800 mg PO Q8H PRN pain #30 t abs 07/03/25 Allergies Allergy/AdvReac Type Severity Reaction Status Date / Time No Known Allergies Allergy Verified 07/07/25 18:51 Course Orders Category Date Time Status Naproxen [Naprosyn] Med 07/07/25 19:26 Discontinued 500 mg PO X1 ONE Vital Signs Vital signs: Vital Signs Temperature 98.7 F 07/07/25 19:20 Pulse Rate 78 07/07/25 19:20 Respiratory Rate 20 07/07/25 19:20 Blood Pressure 129/86 H 07/07/25 19:20 Pulse Oximetry (%) 98 07/07/25 19:20 Oxygen Delivery Method Room Air 07/07/25 19:20 Extremity Injury, Lower Medications / Prescriptions Medication administrations:: Medication Administration History Discontinued Medications Naproxen (Naproxen 250 Mg Tablet) 500 mg PO X1 ONE Stop: 07/07/25 19:27 Discharge Plan Plan Patient Disposition: HOME (Self Care) Patient condition on transfer: Stable Prescriptions/Referrals Prescriptions/Med Rec: No Action naproxen 500 mg tablet 500 mg PO BID PRN (Reason: pain) Qty: 30 0RF cyclobenzaprine 5 mg tablet 5 mg PO TID PRN (Reason: muscle spasm) Qty: 30 0RF naproxen 500 mg tablet 500 mg PO BID PRN (Reason: pain) Qty: 30 0RF baclofen 10 mg tablet 10 mg PO BID PRN (Reason: muscle spasm) Qty: 30 0RF ibuprofen 800 mg tablet 800 mg PO TID PRN (Reason: pain) Qty: 30 0RF ibuprofen 800 mg tablet 800 mg PO TID PRN (Reason: pain) Qty: 30 0RF ibuprofen 600 mg tablet 600 mg PO Q6H PRN (Reason: pain) Qty: 30 0RF ibuprofen 600 mg tablet 600 mg PO Q8H PRN (Reason: pain) Qty: 20 0RF acetaminophen 500 mg capsule 500 mg PO Q6H PRN (Reason: pain) Qty: 30 0RF lidocaine [Lidoderm] 5 % adhesive patch,medicated 2 patch topical QDAY PRN (Reason: pain) Qty: 30 0RF Rx Instructions: leave on most painful area for up to 12 hrs cyclobenzaprine 5 mg tablet 5 mg PO TID PRN (Reason: muscle spasm) Qty: 15 0RF naproxen 500 mg tablet 500 mg PO BID PRN (Reason: pain) Qty: 14 0RF bacitracin 500 unit/gram ointment 1 applic topical Q12H Qty: 28 0RF ibuprofen 800 mg tablet 800 mg PO Q8H PRN (Reason: pain) Qty: 30 0RF sulfamethoxazole-trimethoprim [Bactrim DS] 800-160 mg tablet 1 tab PO BID Qty: 14 0RF naproxen 500 mg tablet 500 mg PO BID PRN (Reason: pain) Qty: 30 0RF tamsulosin [Flomax] 0.4 mg capsule 0.4 mg PO QDAY Qty: 30 0RF ibuprofen 600 mg tablet 600 mg PO Q6H PRN (Reason: pain) Qty: 30 0RF methocarbamol 500 mg tablet 1,000 mg PO Q8H PRN (Reason: pain) Qty: 30 0RF naproxen [Naprosyn] 500 mg tablet 500 mg PO BID Qty: 14 0RF ibuprofen 600 mg tablet 600 mg PO Q6H PRN (Reason: fever or pain) Qty: 30 0RF cyclobenzaprine 5 mg tablet 5 mg PO TID PRN (Reason: muscle spasm) Qty: 14 0RF naproxen 500 mg tablet 500 mg PO BID PRN (Reason: pain) Qty: 30 0RF cyclobenzaprine 5 mg tablet 5 mg PO TID PRN (Reason: muscle spasm) Qty: 30 0RF acetaminophen 500 mg capsule 500 mg PO Q6H PRN (Reason: pain) Qty: 30 0RF Referrals: Lavell (PCP)Cody MD [Primary Care Provider] - In 1 week Problem List Clinical Impression: Chronic pain of both lower extremities Patient/Caregiver Discharge Instructions Education Materials: Managing Chronic Pain, ED RICE Additional Instructions: Follow-up with your primary care physician in 2 days for reevaluation and to be referred to pain management doctor for pain control worsening symptoms or any emergent concern return to the emergency room immediately or call 911 continue medication from the previous provider RICE treatment at home advised Print Language: Sami Stand Alone Forms: Tami Award Info., Patient Portal Info Letter PA/DEVYN Supervising Physician FAINA/DEVYN Supervising Physician: dr Truong
[2025-07-07] MEDS: NAPROXEN 250 MG TABLET 500 MG PO (19:47)
== END 2025-07-07 22:00 | disposition left against medical advice (07) ==
PROVIDERS: Emergency Provider Emergency Medicine; PCP Family Medicine
DX: G89.29 Other chronic pain (principal); M79.604 Pain in right leg; M79.605 Pain in left leg; Z53.29 Procedure and treatment not carried out because of patient's decision for other reasons
CPT/HCPCS: 99282; A9270

== ENCOUNTER 2025-07-08 10:08 | Emergency (ER) | payer MEDICAID, SELFPAY ==
[2025-07-08 10:08] VITALS: PULSE 82; RESP 18; O2SAT 99
[2025-07-08 11:10] VITALS: BP 123/90; PULSE 73; RESP 16; TEMP 36.6; O2SAT 100
[2025-07-08 11:12] VITALS: BMI 26.6
--- NOTE | 2025-07-08 11:12 | EDNOTE_ITS ---
ED Extremity Problem RME/HPI General Chief complaint: Extremity Problem,Nontraumatic Stated complaint: Leg pain Time Seen by Provider: 07/08/25 10:14 Source: patient Arrival date/time: 07/08/25 10:08 Mode of arrival: ambulatory Limitations: no limitations RME / HPI RME / HPI Narrative: Patient is a 45-year-old male who is here today of chronic bilateral leg pain w ith no acute changes. He does have a blister at the plantar surface of his right foot. There is no drainage, erythema, or induration. He does have a dressing on this. He has no fevers or chills. He has no other acute complaints. Related Data Previous Rx's ?Medication ?Instructions ?Recorded sulfamethoxazole 800 1 tab PO BID #14 tabs mg-trimethoprim 160 mg tablet (Bactrim DS) cyclobenzaprine 5 mg tablet 5 mg PO TID PRN muscle spa sm #30 07/23/23 tabs naproxen 500 mg tablet 500 mg PO BID PRN pain #30 t abs 07/23/23 naproxen 500 mg tablet 500 mg PO BID PRN pain #30 t abs 08/08/23 tamsulosin 0.4 mg capsule (Flomax) 0.4 mg PO QDAY #30 caps 08/08/23 baclofen 10 mg tablet 10 mg PO BID PRN muscle spas m #30 08/14/23 tabs naproxen 500 mg tablet 500 mg PO BID PRN pain #30 t abs 08/14/23 ibuprofen 800 mg tablet 800 mg PO TID PRN pain #30 t abs 08/28/23 ibuprofen 600 mg tablet 600 mg PO Q6H PRN pain #30 t abs 01/27/24 methocarbamol 500 mg tablet 1,000 mg (2 x 500 mg) PO Q 8H PRN 01/27/24 pain #30 tabs naproxen 500 mg tablet (Naprosyn) 500 mg PO BID #14 ta bs 03/15/24 ibuprofen 800 mg tablet 800 mg PO TID PRN pain #30 t abs 04/02/24 cyclobenzaprine 5 mg tablet 5 mg PO TID PRN muscle spa sm #14 04/07/24 tabs ibuprofen 600 mg tablet 600 mg PO Q6H PRN fever or p ain 04/07/24 #30 tabs ibuprofen 600 mg tablet 600 mg PO Q6H PRN pain #30 t abs 04/07/24 cyclobenzaprine 5 mg tablet 5 mg PO TID PRN muscle spa sm #30 04/11/24 tabs naproxen 500 mg tablet 500 mg PO BID PRN pain #30 t abs 04/11/24 ibuprofen 600 mg tablet 600 mg PO Q8H PRN pain #20 t abs 11/03/24 acetaminophen 500 mg capsule 500 mg PO Q6H PRN pain #3 0 caps 12/03/24 acetaminophen 500 mg capsule 500 mg PO Q6H PRN pain #3 0 caps 12/15/24 cyclobenzaprine 5 mg tablet 5 mg PO TID PRN muscle spa sm #15 12/20/24 tabs lidocaine 5 % topical patch 2 patch topical QDAY PRN p ain #30 12/20/24 (Lidoderm) ea naproxen 500 mg tablet 500 mg PO BID PRN pain #14 t abs 04/04/25 bacitracin 500 unit/gram topical 1 applic topical Q12H #28 grams 07/03/25 ointment ibuprofen 800 mg tablet 800 mg PO Q8H PRN pain #30 t abs 07/03/25 Allergies Allergy/AdvReac Type Severity Reaction Status Date / Time No Known Allergies Allergy Verified 07/08/25 14:13 Review of Systems Review of Systems Systems Reviewed: All systems reviewed, normal except as documented ED Exam General Limitations: Present no limitations General appearance: Present alert and in no apparent distress Head Head exam: Present atraumatic Eye Eye exam: Present normal appearance, PERRL and EOMI ENT ENT exam: Present normal exam, normal oropharynx and mucous membranes moist Neck Neck exam: Present normal inspection, full ROM and trachea midline Chest Chest inspection: Present normal inspection and symmetric chest wall rise Respiratory Respiratory exam: Present normal lung sounds bilaterally Cardiovascular Cardiovascular exam: Present regular rate, normal rhythm and normal heart sounds Abdominal Exam Abdominal exam: Present soft and normal bowel sounds Extremities Exam Extremities exam: Present normal inspection and full ROM Back Exam Back exam: Present normal inspection and full ROM Neurological Exam Neurological exam: Present alert and oriented X3 Psychiatric Psychiatric exam: Present normal affect and normal mood Skin Skin exam: Present warm, dry, normal color and other (There is an open wound at the plantar surface of the right foot. There is no surrounding erythema, induration, or fluctuance. This appears to be a blister which has opened.) Course Quality Measures none Vital Signs Vital signs: Vital Signs Temperature 97.9 F 07/08/25 11:10 Pulse Rate 73 07/08/25 11:10 Respiratory Rate 16 07/08/25 11:10 Blood Pressure 123/90 H 07/08/25 11:10 Pulse Oximetry (%) 100 07/08/25 11:10 Oxygen Delivery Method Room Air 07/08/25 11:10 Extremity Problem MDM Narrative MDM Narrative:: Patient is a 45-year-old male who is here today of chronic bilateral leg pain with no acute changes. He does have a blister at the plantar surface of his right foot. There is no drainage, erythema, or induration. He does have a dressing on this. He has no fevers or chills. He has no other acute complaints. On exam, patient is nontoxic-appearing, and in no visible signs distress. Vital signs are stable. He has a open blister at the plantar surface of his right f oot has been addressed in the past. The prior wound dressing was removed, foot was cleaned with soap and water. A new dressing was placed using Xeroform and conform gauze. Patient eloped from the emergency room prior to discharge. Patient data External records reviewed:: None Clinical information provided by:: patient Social determinants that could affect healthcare access:: none Patient has the following chronic illnesses:: Chronic leg pain, mental health disease How is presenting disease/condition affected by chronic disease/condition?: exacerbated by Evaluation data The following diagnostics were reviewed and interpreted by me:: other (specify) (n/a) Lab and/or radiology exams considered but not ordered:: n/a Interpretation Summary: n/a Medications / Prescriptions Medications or Prescriptions considered but not ordered:: n/a Medication administrations:: n/a Consultations Consultation(s) initiated? (list below): No Diagnosis Extremity Problem Differential Diagnosis: cellulitis and lower extremity edema Most likely diagnosis given after review of the tests above:: Chronic foot pain, wound care Admission Indicated Admission indicated?: not indicated Admission Request Was there a request for admission?: No Disposition Plan Disposition Plan: Discharge Discharge Attestation Discharge Attestation: The patient and all family members were given an opportunity to ask questions and understood the discharge instructions. Discharge instructions specifically effects, indications for sooner follow up or return to the emergency department, and the expected course of current diagnosis. Patient condition: Stable Discharge Plan Plan Patient Disposition: Elopement Patient condition on transfer: Stable Prescriptions/Referrals Prescriptions/Med Rec: No Action naproxen 500 mg tablet 500 mg PO BID PRN (Reason: pain) Qty: 30 0RF cyclobenzaprine 5 mg tablet 5 mg PO TID PRN (Reason: muscle spasm) Qty: 30 0RF naproxen 500 mg tablet 500 mg PO BID PRN (Reason: pain) Qty: 30 0RF baclofen 10 mg tablet 10 mg PO BID PRN (Reason: muscle spasm) Qty: 30 0RF ibuprofen 800 mg tablet 800 mg PO TID PRN (Reason: pain) Qty: 30 0RF ibuprofen 800 mg tablet 800 mg PO TID PRN (Reason: pain) Qty: 30 0RF ibuprofen 600 mg tablet 600 mg PO Q6H PRN (Reason: pain) Qty: 30 0RF ibuprofen 600 mg tablet 600 mg PO Q8H PRN (Reason: pain) Qty: 20 0RF acetaminophen 500 mg capsule 500 mg PO Q6H PRN (Reason: pain) Qty: 30 0RF lidocaine [Lidoderm] 5 % adhesive patch,medicated 2 patch topical QDAY PRN (Reason: pain) Qty: 30 0RF Rx Instructions: leave on most painful area for up to 12 hrs cyclobenzaprine 5 mg tablet 5 mg PO TID PRN (Reason: muscle spasm) Qty: 15 0RF naproxen 500 mg tablet 500 mg PO BID PRN (Reason: pain) Qty: 14 0RF bacitracin 500 unit/gram ointment 1 applic topical Q12H Qty: 28 0RF ibuprofen 800 mg tablet 800 mg PO Q8H PRN (Reason: pain) Qty: 30 0RF sulfamethoxazole-trimethoprim [Bactrim DS] 800-160 mg tablet 1 tab PO BID Qty: 14 0RF naproxen 500 mg tablet 500 mg PO BID PRN (Reason: pain) Qty: 30 0RF tamsulosin [Flomax] 0.4 mg capsule 0.4 mg PO QDAY Qty: 30 0RF ibuprofen 600 mg tablet 600 mg PO Q6H PRN (Reason: pain) Qty: 30 0RF methocarbamol 500 mg tablet 1,000 mg PO Q8H PRN (Reason: pain) Qty: 30 0RF naproxen [Naprosyn] 500 mg tablet 500 mg PO BID Qty: 14 0RF ibuprofen 600 mg tablet 600 mg PO Q6H PRN (Reason: fever or pain) Qty: 30 0RF cyclobenzaprine 5 mg tablet 5 mg PO TID PRN (Reason: muscle spasm) Qty: 14 0RF naproxen 500 mg tablet 500 mg PO BID PRN (Reason: pain) Qty: 30 0RF cyclobenzaprine 5 mg tablet 5 mg PO TID PRN (Reason: muscle spasm) Qty: 30 0RF acetaminophen 500 mg capsule 500 mg PO Q6H PRN (Reason: pain) Qty: 30 0RF Referrals: Lavell (PCP),MD Cody [Primary Care Provider] - In 1 week Problem List Clinical Impression: Blister of foot Patient/Caregiver Discharge Instructions Print Language: [place] Stand Alone Forms: Tami Award Info., Patient Portal Info Letter
== END 2025-07-08 12:00 | disposition left against medical advice (07) ==
PROVIDERS: Emergency Provider Family Medicine; PCP Family Medicine
DX: G89.29 Other chronic pain (principal); M79.605 Pain in left leg; M79.604 Pain in right leg
CPT/HCPCS: 99282

== ENCOUNTER 2025-07-08 14:09 | Emergency (ER) | payer MEDICAID, SELFPAY ==
[2025-07-08 14:10] VITALS: PULSE 76; RESP 18; O2SAT 98
[2025-07-08 15:20] VITALS: BP 131/89; PULSE 90; RESP 18; TEMP 37.2; O2SAT 96
== END 2025-07-08 18:22 | disposition left against medical advice (07) ==
LOC: SERX 15:47
PROVIDERS: Emergency Provider Family Medicine; PCP Family Medicine
DX: Z53.21 Procedure and treatment not carried out due to patient leaving prior to being seen by health care provider (principal)
CPT/HCPCS: 99282

== ENCOUNTER 2025-07-08 20:03 | Emergency (ER) | payer MEDICAID, SELFPAY ==
[2025-07-08 20:03] VITALS: PULSE 86; O2SAT 97; BMI 25.8
[2025-07-08 20:38] VITALS: BP 139/81; PULSE 79; RESP 18; TEMP 37.3; O2SAT 96
== END 2025-07-08 21:27 | disposition left against medical advice (07) ==
PROVIDERS: Emergency Provider Emergency Medicine; PCP Family Medicine
DX: Z53.21 Procedure and treatment not carried out due to patient leaving prior to being seen by health care provider (principal)
CPT/HCPCS: 99282

== ENCOUNTER 2025-07-08 21:27 | Emergency (ER) | payer MEDICAID, SELFPAY ==
[2025-07-08 21:28] VITALS: BMI 26.6
[2025-07-08 22:01] VITALS: BP 129/85; PULSE 80; RESP 18; TEMP 37.2; O2SAT 96
--- NOTE | 2025-07-08 22:46 | EDNOTE_ITS ---
ED Extremity Problem RME/HPI General Chief complaint: General Adult/Misc Complain Stated complaint: LEG PAIN Time Seen by Provider: 07/08/25 21:38 Arrival date/time: 07/08/25 21:27 RME / HPI RME / HPI Narrative: See MDM for HPI documentation. Related Data Previous Rx's ?Medication ?Instructions ?Recorded sulfamethoxazole 800 1 tab PO BID #14 tabs mg-trimethoprim 160 mg tablet (Bactrim DS) cyclobenzaprine 5 mg tablet 5 mg PO TID PRN muscle spa sm #30 07/23/23 tabs naproxen 500 mg tablet 500 mg PO BID PRN pain #30 t abs 07/23/23 naproxen 500 mg tablet 500 mg PO BID PRN pain #30 t abs 08/08/23 tamsulosin 0.4 mg capsule (Flomax) 0.4 mg PO QDAY #30 caps 08/08/23 baclofen 10 mg tablet 10 mg PO BID PRN muscle spas m #30 08/14/23 tabs naproxen 500 mg tablet 500 mg PO BID PRN pain #30 t abs 08/14/23 ibuprofen 800 mg tablet 800 mg PO TID PRN pain #30 t abs 08/28/23 ibuprofen 600 mg tablet 600 mg PO Q6H PRN pain #30 t abs 01/27/24 methocarbamol 500 mg tablet 1,000 mg (2 x 500 mg) PO Q 8H PRN 01/27/24 pain #30 tabs naproxen 500 mg tablet (Naprosyn) 500 mg PO BID #14 ta bs 03/15/24 ibuprofen 800 mg tablet 800 mg PO TID PRN pain #30 t abs 04/02/24 cyclobenzaprine 5 mg tablet 5 mg PO TID PRN muscle spa sm #14 04/07/24 tabs ibuprofen 600 mg tablet 600 mg PO Q6H PRN fever or p ain 04/07/24 #30 tabs ibuprofen 600 mg tablet 600 mg PO Q6H PRN pain #30 t abs 04/07/24 cyclobenzaprine 5 mg tablet 5 mg PO TID PRN muscle spa sm #30 04/11/24 tabs naproxen 500 mg tablet 500 mg PO BID PRN pain #30 t abs 04/11/24 ibuprofen 600 mg tablet 600 mg PO Q8H PRN pain #20 t abs 11/03/24 acetaminophen 500 mg capsule 500 mg PO Q6H PRN pain #3 0 caps 12/03/24 acetaminophen 500 mg capsule 500 mg PO Q6H PRN pain #3 0 caps 12/15/24 cyclobenzaprine 5 mg tablet 5 mg PO TID PRN muscle spa sm #15 12/20/24 tabs lidocaine 5 % topical patch 2 patch topical QDAY PRN p ain #30 12/20/24 (Lidoderm) ea naproxen 500 mg tablet 500 mg PO BID PRN pain #14 t abs 04/04/25 bacitracin 500 unit/gram topical 1 applic topical Q12H #28 grams 07/03/25 ointment ibuprofen 800 mg tablet 800 mg PO Q8H PRN pain #30 t abs 07/03/25 Allergies Allergy/AdvReac Type Severity Reaction Status Date / Time No Known Allergies Allergy Verified 07/08/25 20:05 Review of Systems Review of Systems Systems Reviewed: All systems reviewed, normal except as documented Past Medical History Past Medical History NEUROLOGIC: Positive Cerebrovascular Accident; Negative Neurological Disorders CARDIAC: Positive Myocardial Infarction and Hypercholesterolemia; Negative Cardiac Disorders or Congestive Heart Failure RESPIRATORY: Negative Chronic Obstructive Pulmonary Disease (COPD) or Asthma GASTROINTESTINAL: Negative Gastrointestinal Disorders GENITOURINARY: Negative Genitourinary Disorders or Renal Disease MUSCULOSKELETAL: Negative Musculoskeletal Disorders ENDOCRINE: Negative Endocrine Disorders, Diabetes Mellitus Type 1 or Diabetes Mellitus Type 2 HEMATOLOGIC: Negative Blood Disorders or Sickle Cell Disease OTHER HISTORY: Negative Autoimmune Disease or Clostridium Difficile Social History SMOKING STATUS: Unknown if ever smoked SUBSTANCE USE: methamphetamine ED Exam Narrative Physical exam: See MDM for physical exam documentation. Course Quality Measures none Orders Category Date Time Status XR femur BI min 2V Stat Exams 07/08/25 22:50 Completed XR tibia fibula BI 2V Stat Exams 07/08/25 22:50 Completed Vital Signs Vital signs: Vital Signs Temperature 98.9 F 07/08/25 22:01 Pulse Rate 80 07/08/25 22:01 Respiratory Rate 18 07/08/25 22:01 Blood Pressure 129/85 H 07/08/25 22:01 Pulse Oximetry (%) 96 07/08/25 22:01 Oxygen Delivery Method Room Air 07/08/25 22:01 Extremity Problem MDM Narrative MDM Narrative:: This section includes all my notes and documentations, including HPI, PE, and ED course. Stephen Gallardo MD HPI: 45yo male here with leg pain. He visits here multiple times daily with leg pain. Has trouble localizing the pain and describing the quality and quality of the pain and exacerbating factors and relieving factors no recent falls or injuries. No other complaints reported. ROS: All negative except as documented in HPI. Physical Exam: General: Alert and oriented. No acute distress when remaining still. Eyes: Conjunctivae and lids clear. ENT: No nasal congestion. Neck: Supple. Lungs: No respiratory distress. Skin: Warm and dry. Neuro: Alert and oriented X 3. I ordered bilateral leg x-rays. I was told the patient eloped right after x-rays, before I had the chance to review the x-rays. Stephen Gallardo MD Patient data External records reviewed:: [facility] previous records (Per chart review, patient has been seen here multiple times for the same complaint.) Clinical information provided by:: patient Social determinants that could affect healthcare access:: none Patient has the following chronic illnesses:: HLD How is presenting disease/condition affected by chronic disease/condition?: uneffected by Evaluation data The following diagnostics were reviewed and interpreted by me:: radiology exam(s) Lab and/or radiology exams considered but not ordered:: none Interpretation Summary: Patient eloped prior to return of the x-rays. Medications / Prescriptions Medications or Prescriptions considered but not ordered:: none Medication administrations:: none Consultations Consultation(s) initiated? (list below): No Diagnosis Extremity Problem Differential Diagnosis: other (Fracture, sprain, strain, psychogenic) Most likely diagnosis given after review of the tests above:: Patient eloped prior to return of the x-rays. Admission Indicated Admission indicated?: not indicated Explain why admission is indicated or not indicated:: Patient eloped. Admission Request Was there a request for admission?: No Disposition Plan Disposition Plan: other (specify) (Elopement) Discharge Plan Plan Patient Disposition: Elopement Prescriptions/Referrals Prescriptions/Med Rec: No Action naproxen 500 mg tablet 500 mg PO BID PRN (Reason: pain) Qty: 30 0RF cyclobenzaprine 5 mg tablet 5 mg PO TID PRN (Reason: muscle spasm) Qty: 30 0RF naproxen 500 mg tablet 500 mg PO BID PRN (Reason: pain) Qty: 30 0RF baclofen 10 mg tablet 10 mg PO BID PRN (Reason: muscle spasm) Qty: 30 0RF ibuprofen 800 mg tablet 800 mg PO TID PRN (Reason: pain) Qty: 30 0RF ibuprofen 800 mg tablet 800 mg PO TID PRN (Reason: pain) Qty: 30 0RF ibuprofen 600 mg tablet 600 mg PO Q6H PRN (Reason: pain) Qty: 30 0RF ibuprofen 600 mg tablet 600 mg PO Q8H PRN (Reason: pain) Qty: 20 0RF acetaminophen 500 mg capsule 500 mg PO Q6H PRN (Reason: pain) Qty: 30 0RF lidocaine [Lidoderm] 5 % adhesive patch,medicated 2 patch topical QDAY PRN (Reason: pain) Qty: 30 0RF Rx Instructions: leave on most painful area for up to 12 hrs cyclobenzaprine 5 mg tablet 5 mg PO TID PRN (Reason: muscle spasm) Qty: 15 0RF naproxen 500 mg tablet 500 mg PO BID PRN (Reason: pain) Qty: 14 0RF bacitracin 500 unit/gram ointment 1 applic topical Q12H Qty: 28 0RF ibuprofen 800 mg tablet 800 mg PO Q8H PRN (Reason: pain) Qty: 30 0RF sulfamethoxazole-trimethoprim [Bactrim DS] 800-160 mg tablet 1 tab PO BID Qty: 14 0RF naproxen 500 mg tablet 500 mg PO BID PRN (Reason: pain) Qty: 30 0RF tamsulosin [Flomax] 0.4 mg capsule 0.4 mg PO QDAY Qty: 30 0RF ibuprofen 600 mg tablet 600 mg PO Q6H PRN (Reason: pain) Qty: 30 0RF methocarbamol 500 mg tablet 1,000 mg PO Q8H PRN (Reason: pain) Qty: 30 0RF naproxen [Naprosyn] 500 mg tablet 500 mg PO BID Qty: 14 0RF ibuprofen 600 mg tablet 600 mg PO Q6H PRN (Reason: fever or pain) Qty: 30 0RF cyclobenzaprine 5 mg tablet 5 mg PO TID PRN (Reason: muscle spasm) Qty: 14 0RF naproxen 500 mg tablet 500 mg PO BID PRN (Reason: pain) Qty: 30 0RF cyclobenzaprine 5 mg tablet 5 mg PO TID PRN (Reason: muscle spasm) Qty: 30 0RF acetaminophen 500 mg capsule 500 mg PO Q6H PRN (Reason: pain) Qty: 30 0RF Referrals: Lavell (PCP),MD Cody [Primary Care Provider] - In 1 week Problem List Clinical Impression: Leg pain Patient/Caregiver Discharge Instructions Print Language: Sammarinese
--- NOTE | 2025-07-08 22:50 | XR_ITS ---
Examination: Bilateral femur 4 views TECHNIQUE: AP, right and left femur total 4 views Date and time: July 08, 2025 11:06 PM INDICATIONS: Femur pain this week. FINDINGS: No right or left hip fracture or dislocation Shafts of the right and left humerus intact Linear foreign body which may represent a needle fragment, 10 mm in the soft tissue medial right thigh No cortical bone destruction IMPRESSION: Positive for 10 mm linear foreign body in the soft tissues medial right thigh
--- NOTE | 2025-07-08 22:50 | XR_ITS ---
Examination: Tibia-Fibula, bilateral , 4 views. TECHNIQUE: AP lateral right and left lower leg 4 views Date and time of exam: July 07, 2025 1101 hours INDICATIONS: Bilateral lower leg pain months FINDINGS: No fracture or dislocation involving either lower leg No cortical bone obstruction No foreign bodies IMPRESSION: No fracture or dislocation involving either lower leg
--- NOTE | 2025-07-08 23:33 | PC.NURSE ---
PATIENT ELOPED THE ER PER SECURITY.
== END 2025-07-08 23:34 | disposition left against medical advice (07) ==
LOC: SERX 21:45
PROVIDERS: Emergency Provider Emergency Medicine; PCP Family Medicine
DX: M79.606 Pain in leg, unspecified (principal); Z53.29 Procedure and treatment not carried out because of patient's decision for other reasons
CPT/HCPCS: 73552; 73590; 99282

== ENCOUNTER 2025-07-09 02:50 | Emergency (ER) | payer MEDICAID, SELFPAY ==
[2025-07-09 02:53] VITALS: BMI 27.1
--- NOTE | 2025-07-09 03:22 | PC.NURSE ---
PT BIBA AND WAS TRIAGED BY TRIAGE NURSE. PT WAS BROUGHT BY EMS TO FRONT ENTRANCE TO ED. PT WAS SEEN WALKING OUT OF ED AFTER SPEAKING WITH TRIAGE NURSE. PRIOR TO PT BEING BROUGHT TO [facility] PT WAS SEEN WALKING ACROSS THE STREET.
--- NOTE | 2025-07-09 03:24 | PD.EDADDENDU ---
Emergency Room Addendum Addendum Narrative: When I looked for the patient to start my evaluation, I was told the patient eloped. Stephen Gallardo MD
== END 2025-07-09 03:22 | disposition left against medical advice (07) ==
PROVIDERS: Emergency Provider Emergency Medicine
DX: Z53.21 Procedure and treatment not carried out due to patient leaving prior to being seen by health care provider (principal)
CPT/HCPCS: 99282

== ENCOUNTER 2025-07-09 06:27 | Emergency (ER) | payer MEDICAID, SELFPAY ==
[2025-07-09 06:27] VITALS: PULSE 87; RESP 19; O2SAT 99; BMI 26.6
--- NOTE | 2025-07-09 06:50 | PD.EDADULT ---
ED General RME/HPI General Chief complaint: General Adult/Misc Complain Stated complaint: LEG PAIN Time Seen by Provider: 07/09/25 06:28 Arrival date/time: 07/09/25 06:27 45-year-old male well-known to me presents to the emergency department for chronic leg pain patient is admitted on multiple occasions that he is just here for food and water and somewhere to stay and does not actually have any acute medical complaints Limitations: no limitations Related Data Previous Rx's ?Medication ?Instructions ?Recorded sulfamethoxazole 800 1 tab PO BID #14 tabs 03/09/23 mg-trimethoprim 160 mg tablet (Bactrim DS) cyclobenzaprine 5 mg tablet 5 mg PO TID PRN muscle spasm #30 07/23/23 tabs naproxen 500 mg tablet 500 mg PO BID PRN pain #30 tabs 07/23/23 naproxen 500 mg tablet 500 mg PO BID PRN pain #30 tabs 08/08/23 tamsulosin 0.4 mg capsule (Flomax) 0.4 mg PO QDAY #30 caps 08/08/23 baclofen 10 mg tablet 10 mg PO BID PRN muscle spasm #30 08/14/23 tabs naproxen 500 mg tablet 500 mg PO BID PRN pain #30 tabs 08/14/23 ibuprofen 800 mg tablet 800 mg PO TID PRN pain #30 tabs 08/28/23 ibuprofen 600 mg tablet 600 mg PO Q6H PRN pain #30 tabs 01/27/24 methocarbamol 500 mg tablet 1,000 mg (2 x 500 mg) PO Q8H PRN 01/27/24 pain #30 tabs naproxen 500 mg tablet (Naprosyn) 500 mg PO BID #14 tabs 03/15/24 ibuprofen 800 mg tablet 800 mg PO TID PRN pain #30 tabs 04/02/24 cyclobenzaprine 5 mg tablet 5 mg PO TID PRN muscle spasm #14 04/07/24 tabs ibuprofen 600 mg tablet 600 mg PO Q6H PRN fever or pain 04/07/24 #30 tabs ibuprofen 600 mg tablet 600 mg PO Q6H PRN pain #30 tabs 04/07/24 cyclobenzaprine 5 mg tablet 5 mg PO TID PRN muscle spasm #30 04/11/24 tabs naproxen 500 mg tablet 500 mg PO BID PRN pain #30 tabs 04/11/24 ibuprofen 600 mg tablet 600 mg PO Q8H PRN pain #20 tabs 11/03/24 acetaminophen 500 mg capsule 500 mg PO Q6H PRN pain #30 caps 12/03/24 acetaminophen 500 mg capsule 500 mg PO Q6H PRN pain #30 caps 12/15/24 cyclobenzaprine 5 mg tablet 5 mg PO TID PRN muscle spasm #15 12/20/24 tabs lidocaine 5 % topical patch 2 patch topical QDAY PRN pain #30 12/20/24 (Lidoderm) ea naproxen 500 mg tablet 500 mg PO BID PRN pain #14 tabs 04/04/25 bacitracin 500 unit/gram topical 1 applic topical Q12H #28 grams 07/03/25 ointment ibuprofen 800 mg tablet 800 mg PO Q8H PRN pain #30 tabs 07/03/25 Allergies Allergy/AdvReac Type Severity Reaction Status Date / Time No Known Allergies Allergy Verified 07/09/25 06:29 Review of Systems Review of Systems Systems Reviewed: All systems reviewed, normal except as documented Constitutional Constitutional: Reports system reviewed and no additional complaints, except as documented, Denies fever(s) and Denies headache(s) Eyes Eyes: Reports system reviewed and no additional complaints, except as documented and Denies blurry vision ENT Ears, Nose, Mouth, and Throat: Reports system reviewed and no additional complaints, except as documented, Denies headache(s), Denies nasal congestion and Denies nasal discharge Cardiovascular Cardiovascular: Reports system reviewed and no additional complaints, except as documented, Denies chest pain and Denies dyspnea Respiratory Respiratory: Reports system reviewed and no additional complaints, except as documented, Denies chest congestion, Denies cough and Denies dyspnea Gastrointestinal Gastrointestinal: Reports system reviewed and no additional complaints, except as documented and Denies abdominal pain Integumentary/Breasts Skin/Breast: Reports system reviewed and no additional complaints, except as documented and Denies rash Neurologic Neurologic: Reports system reviewed and no additional complaints, except as documented, Reports as per HPI and Denies headache(s) Past Medical History Past Medical History NEUROLOGIC: Positive Cerebrovascular Accident; Negative Neurological Disorders CARDIAC: Positive Myocardial Infarction and Hypercholesterolemia; Negative Cardiac Disorders or Congestive Heart Failure RESPIRATORY: Negative Chronic Obstructive Pulmonary Disease (COPD) or Asthma GASTROINTESTINAL: Negative Gastrointestinal Disorders GENITOURINARY: Negative Genitourinary Disorders or Renal Disease MUSCULOSKELETAL: Negative Musculoskeletal Disorders ENDOCRINE: Negative Endocrine Disorders, Diabetes Mellitus Type 1 or Diabetes Mellitus Type 2 HEMATOLOGIC: Negative Blood Disorders or Sickle Cell Disease OTHER HISTORY: Negative Autoimmune Disease or Clostridium Difficile Social History SMOKING STATUS: Former smoker SUBSTANCE USE: methamphetamine ED Exam General Limitations: Present no limitations General appearance: Present alert and in no apparent distress Head Head exam: Present atraumatic Eye Eye exam: Present normal appearance, PERRL and EOMI ENT ENT exam: Present normal exam, normal oropharynx and mucous membranes moist Neck Neck exam: Present normal inspection, full ROM and trachea midline Chest Chest inspection: Present normal inspection and symmetric chest wall rise Respiratory Respiratory exam: Present normal lung sounds bilaterally Cardiovascular Cardiovascular exam: Present regular rate, normal rhythm and normal heart sounds Abdominal Exam Abdominal exam: Present soft and normal bowel sounds Extremities Exam Extremities exam: Present normal inspection and full ROM Back Exam Back exam: Present normal inspection and full ROM Neurological Exam Neurological exam: Present alert, oriented X3 and CN II-XII intact Psychiatric Psychiatric exam: Present normal affect and normal mood Skin Skin exam: Present warm, dry, intact and normal color Course Quality Measures none Vital Signs Vital signs: Vital Signs Temperature 98.1 F 07/09/25 07:03 Pulse Rate 67 07/09/25 07:03 Respiratory Rate 18 07/09/25 07:03 Blood Pressure 114/79 07/09/25 07:03 Pulse Oximetry (%) 98 07/09/25 07:03 Oxygen Delivery Method Room Air 07/09/25 07:03 O2 saturation 98% room air with normal limits Discharge Plan Plan Patient Disposition: HOME (Self Care) Discharge Disposition comment: Stable Prescriptions/Referrals Prescriptions/Med Rec: No Action naproxen 500 mg tablet 500 mg PO BID PRN (Reason: pain) Qty: 30 0RF cyclobenzaprine 5 mg tablet 5 mg PO TID PRN (Reason: muscle spasm) Qty: 30 0RF naproxen 500 mg tablet 500 mg PO BID PRN (Reason: pain) Qty: 30 0RF baclofen 10 mg tablet 10 mg PO BID PRN (Reason: muscle spasm) Qty: 30 0RF ibuprofen 800 mg tablet 800 mg PO TID PRN (Reason: pain) Qty: 30 0RF ibuprofen 800 mg tablet 800 mg PO TID PRN (Reason: pain) Qty: 30 0RF ibuprofen 600 mg tablet 600 mg PO Q6H PRN (Reason: pain) Qty: 30 0RF ibuprofen 600 mg tablet 600 mg PO Q8H PRN (Reason: pain) Qty: 20 0RF acetaminophen 500 mg capsule 500 mg PO Q6H PRN (Reason: pain) Qty: 30 0RF lidocaine [Lidoderm] 5 % adhesive patch,medicated 2 patch topical QDAY PRN (Reason: pain) Qty: 30 0RF Rx Instructions: leave on most painful area for up to 12 hrs cyclobenzaprine 5 mg tablet 5 mg PO TID PRN (Reason: muscle spasm) Qty: 15 0RF naproxen 500 mg tablet 500 mg PO BID PRN (Reason: pain) Qty: 14 0RF bacitracin 500 unit/gram ointment 1 applic topical Q12H Qty: 28 0RF ibuprofen 800 mg tablet 800 mg PO Q8H PRN (Reason: pain) Qty: 30 0RF sulfamethoxazole-trimethoprim [Bactrim DS] 800-160 mg tablet 1 tab PO BID Qty: 14 0RF naproxen 500 mg tablet 500 mg PO BID PRN (Reason: pain) Qty: 30 0RF tamsulosin [Flomax] 0.4 mg capsule 0.4 mg PO QDAY Qty: 30 0RF ibuprofen 600 mg tablet 600 mg PO Q6H PRN (Reason: pain) Qty: 30 0RF methocarbamol 500 mg tablet 1,000 mg PO Q8H PRN (Reason: pain) Qty: 30 0RF naproxen [Naprosyn] 500 mg tablet 500 mg PO BID Qty: 14 0RF ibuprofen 600 mg tablet 600 mg PO Q6H PRN (Reason: fever or pain) Qty: 30 0RF cyclobenzaprine 5 mg tablet 5 mg PO TID PRN (Reason: muscle spasm) Qty: 14 0RF naproxen 500 mg tablet 500 mg PO BID PRN (Reason: pain) Qty: 30 0RF cyclobenzaprine 5 mg tablet 5 mg PO TID PRN (Reason: muscle spasm) Qty: 30 0RF acetaminophen 500 mg capsule 500 mg PO Q6H PRN (Reason: pain) Qty: 30 0RF Problem List Clinical Impression: Chronic leg pain, Homeless Patient/Caregiver Discharge Instructions Education Materials: ED Chronic Pain Additional Instructions: Please follow up with your primary care doctor in the next 24-48hrs for any worsening symptoms return here immediately Print Language: Telugu Stand Alone Forms: Tami Award Info., Patient Portal Info Letter PA/MEDICAL SOCIOLOGIST Supervising Physician FAINA/DEVYN Supervising Physician: Dr. jerman QUINTANILLA Narrative [facility] hospital course: 45-year-old male well-known to me presents to the emergency department for chronic leg pain patient is admitted on multiple occasions that he is just here for food and water and somewhere to stay and does not actually have any acute medical complaints. Patient on a daily basis abuses the Emergency Department services as well as EMS services Patient was screened today patient has no acute emergent findings patient hemodynamically stable I have counseled this patient on many occasions about the abuse of the emergency department patient has been offered resources to stay in multiple places but patient continues to come to the emergency department. environmental services supervisor to get the patient a place to stay in the recent past patient laughs about it and states I pooped my pants and they kicked me out patient laughs about it. 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 As patient has no acute emergent findings patient be discharged home at this time patient was given food and water Spoke with high school social studies teacher we were able to get the patient a [employer] ride to [facility] in [place] Clinical Information Provided by patient Medical Records Reviewed [facility] Meds/Rx Considered, not Ordered None Labs/Rad/Tests considered, not Ordered None Chronic Illness/Social Conditions which may negatively complicate care or outcome(s)-explain: Homeless EKG EKG not done Lab Interpretation Labs: none Imaging Imaging interpretation: none Medication Administration(s) none Diagnosis Differential diagnosis: Homeless, drug abuse, chronic pain Most likely dx, and/or detailed dx discussion: Homeless, drug abuse, chronic pain Dispositon Disposition: Discharge Home
[2025-07-09 07:03] VITALS: BP 114/79; PULSE 67; RESP 18; TEMP 36.7; O2SAT 98
--- NOTE | 2025-07-09 07:09 | PC.CC ---
Addendum entered by Emilie Herbert 07/09/25 07:31: Emilie PADRON provided patient with an orange juice and sandwich. Patient was provided with an [facility]. Original Note: Emilie PADRON made face to face contact with patient. Emilie PADRON introduced self, role, and reason for visit. Patient reports he wants to get sober and go to the [facility] in [place] or [facility]. 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
== END 2025-07-09 07:13 | disposition home or self-care (01) ==
LOC: SERX 07:33
PROVIDERS: Emergency Provider Emergency Medicine; PCP Family Medicine
DX: M79.606 Pain in leg, unspecified (principal); G89.29 Other chronic pain; Z59.00 Homelessness unspecified
CPT/HCPCS: 99282

== ENCOUNTER 2025-08-19 14:47 | Inpatient (IN) | payer MEDICAID, SELFPAY ==
[2025-08-19] VITALS (37 sets, daily range): BP systolic 100–180; BP diastolic 73–131; PULSE 79–116; RESP 14–32; TEMP 36.5–37; O2SAT 76–100; BMI 27.6
--- NOTE | 2025-08-19 14:52 | PD.EDSEIZ ---
ED Seizures RME/HPI General Chief Complaint: Seizure Stated Complaint: SEIZURES Time Seen by Provider: 08/19/25 14:52 Arrival date/time: 08/19/25 14:47 RME / HPI RME / HPI Narrative: 45 year old male with history of CVA presents to the ED BIBA from [facility] for evaluation of seizures. Per the medics and nursing staff at the [facility], the patient experienced a witnessed seizure episode earlier today. The first seizure reportedly lasted for approximately 5 minutes, and the patient was administered an unknown dose of Ativan. Shortly after, the patient had a second tonic-clonic seizure, lasting approximately 30 seconds, followed by a third tonic-clonic seizure that lasted less than one minute. Medics report administered 4mg of intranasal Versed. Prehospital BS was 216. During transport, the patient was observed to have snoring respirations and bagged with BVM, saturating 99%. Upon initial assessment, blood was noted in and around the patient?s mouth, likely secondary to tongue trauma during the seizures. It is unclear if the patient sustained any head injury during the event. No prior history of seizures. Related Data Previous Rx's ?Medication ?Instructions ?Recorded sulfamethoxazole 800 1 tab PO BID #14 tabs 03/09/23 mg-trimethoprim 160 mg tablet (Bactrim DS) cyclobenzaprine 5 mg tablet 5 mg PO TID PRN muscle spasm #30 07/23/23 tabs naproxen 500 mg tablet 500 mg PO BID PRN pain #30 tabs 07/23/23 naproxen 500 mg tablet 500 mg PO BID PRN pain #30 tabs 08/08/23 tamsulosin 0.4 mg capsule (Flomax) 0.4 mg PO QDAY #30 caps 08/08/23 baclofen 10 mg tablet 10 mg PO BID PRN muscle spasm #30 08/14/23 tabs naproxen 500 mg tablet 500 mg PO BID PRN pain #30 tabs 08/14/23 ibuprofen 800 mg tablet 800 mg PO TID PRN pain #30 tabs 08/28/23 ibuprofen 600 mg tablet 600 mg PO Q6H PRN pain #30 tabs 01/27/24 methocarbamol 500 mg tablet 1,000 mg (2 x 500 mg) PO Q8H PRN 01/27/24 pain #30 tabs naproxen 500 mg tablet (Naprosyn) 500 mg PO BID #14 tabs 03/15/24 ibuprofen 800 mg tablet 800 mg PO TID PRN pain #30 tabs 04/02/24 cyclobenzaprine 5 mg tablet 5 mg PO TID PRN muscle spasm #14 04/07/24 tabs ibuprofen 600 mg tablet 600 mg PO Q6H PRN fever or pain 04/07/24 #30 tabs ibuprofen 600 mg tablet 600 mg PO Q6H PRN pain #30 tabs 04/07/24 cyclobenzaprine 5 mg tablet 5 mg PO TID PRN muscle spasm #30 04/11/24 tabs naproxen 500 mg tablet 500 mg PO BID PRN pain #30 tabs 04/11/24 ibuprofen 600 mg tablet 600 mg PO Q8H PRN pain #20 tabs 11/03/24 acetaminophen 500 mg capsule 500 mg PO Q6H PRN pain #30 caps 12/03/24 acetaminophen 500 mg capsule 500 mg PO Q6H PRN pain #30 caps 12/15/24 cyclobenzaprine 5 mg tablet 5 mg PO TID PRN muscle spasm #15 12/20/24 tabs lidocaine 5 % topical patch 2 patch topical QDAY PRN pain #30 12/20/24 (Lidoderm) ea naproxen 500 mg tablet 500 mg PO BID PRN pain #14 tabs 04/04/25 bacitracin 500 unit/gram topical 1 applic topical Q12H #28 grams 07/03/25 ointment ibuprofen 800 mg tablet 800 mg PO Q8H PRN pain #30 tabs 07/03/25 Allergies Allergy/AdvReac Type Severity Reaction Status Date / Time No Known Allergies Allergy Verified 07/09/25 06:29 Review of Systems Review of Systems ROS Unobtainable: unobtainable due to mental status Past Medical History Past Medical History NEUROLOGIC: Positive Cerebrovascular Accident CARDIAC: Positive Myocardial Infarction and Hypercholesterolemia Social History SMOKING STATUS: Former smoker SUBSTANCE USE: methamphetamine ED Exam Narrative Physical exam: Constitutional: Patient arrived altered, unresponsive, soiled in urine and feces HEENT: NC, AT, pupils are 3-4mm bilaterally, superficial laceration to the lower lip with blood on nair Neck: Supple CV: RRR, no m/r/g Lungs: bibasilar crackles, no w/r/r. Abd: Soft, NT, no HSM noted to palpation Extremities: No deformities, no edema noted Neuro: Arrived altered, unresponsive Skin: Warm, dry, intact Course Course Course Narrative: 1555h: Labs were reviewed, patients sodium is 122, potassium is 3.2, he is still unresponsive but is maintaining airway, saturating 92% on 15L Oxy mask, UDS is negative. Patient has history of drug abuse in the past. Unclear cause of new onset seizure. Receiving IV fluids with plan to repeat sodium. If less than 120, consider hypertonic saline. Potassium 10 mEq IV ordered. Will require admission for further management. Will speak with hospitalist team. 1600h: I spoke with hospitalist team B regarding admission. Quality Measures none Orders Category Date Time Status COVID-19 Screening Questionnaire NOW Care 08/19/25 16:08 Active Commercial Real Estate Attorney STAT Care 08/19/25 14:57 Active Continuous Pulse Oximetry STAT Care 08/19/25 14:57 Completed Decision to Admit X1 Care 08/19/25 16:08 Active EKG (ED ONLY) *Do not use* NOW Care 08/19/25 14:57 Completed Insert IV STAT Care 08/19/25 14:57 Active Seizure precautions NOW Care 08/19/25 14:57 Active Straight [In and Out Catheter] X1 Care 08/19/25 14:[address] head/brain wo con Stat Exams 08/19/25 14:57 Completed EKG (ED Only) Stat Exams 08/19/25 14:57 Draft XR chest 1V portable Stat Exams 08/19/25 14:59 Completed CBC Stat Lab 08/19/25 14:55 Completed Comprehensive Metabolic Panel Stat Lab 08/19/25 14:55 Completed Drug Screen,Urine Stat Lab 08/19/25 15:00 Completed Lipase Stat Lab 08/19/25 14:55 Completed Magnesium Stat Lab 08/19/25 14:55 Completed Procalcitonin Stat Lab 08/19/25 14:55 Completed Urinalysis Stat Lab 08/19/25 15:00 Completed POTASSIUM CHL 10 mEq IVPB [Kcl Ivpb] Med 08/19/25 16:02 Active 10 meq in 100 ml IV X1 Sodium Chloride 0.9% 1000 ml [Ns] 1,000 ml Med 08/19/25 16:03 Active IV 999 mls/hr Vital Signs Vital signs: Vital Signs Temperature 98.6 F 08/19/25 15:17 Pulse Rate 86 08/19/25 15:17 Respiratory Rate 16 08/19/25 15:17 Blood Pressure 137/96 H 08/19/25 15:17 Pulse Oximetry (%) 95 08/19/25 15:17 Oxygen Delivery Method Oxy Mask 08/19/25 15:17 Oxygen Flow Rate 15 08/19/25 15:17 Seizure MDM Narrative MDM Narrative:: Afia Martins am scribing for and in the presence of Dr. Salazar. Patient data External records reviewed:: [facility] previous records and EMS form Clinical information provided by:: EMS Social determinants that could affect healthcare access:: housing (currently incarcerated ) Patient has the following chronic illnesses:: CVA, drug abuse How is presenting disease/condition affected by chronic disease/condition?: exacerbated by Evaluation data The following diagnostics were reviewed and interpreted by me:: lab results, radiology exam(s) and EKG tracing(s) (EKG @ 15:24h. Sinus rhythm, rate 86, no acute ischemic changes, no STEMI. ) Lab and/or radiology exams considered but not ordered:: None Interpretation Summary: Ordering Physician: Susan Salazar MD Date of Service: 08/19/25 Procedure(s): CT head/brain wo con Accession Number(s): [id number] cc: Stoney Lugo MD; Susan Salazar MD; NO PRIMARY/FAMILY,PHYSICIAN~ Examination: CT brain head without contrast. 2-D sagittal coronal reconstructions Date and time of exam:August 19, 2025, 1515 hours, comparison June 27, 2025 INDICATIONS: Seizure today, patient fell, head pain CTDI: vol (mGy):52.9 DLP: (mGycm):1199 Technique: Multiple CT axial sections of the brain have been obtained, 5 mm slice thickness. Contrast has not been administered. 2-D sagittal, coronal reconstructions have been obtained Low dose protocols were performed. One or more of the following dose reduction techniques were used; automated exposure control, adjustment of the mA and/or KV according to patient size, use of iterative reconstruction technique. Findings: Significant patient motion degrades scan image quality Mild ventricular enlargement No gross hemorrhage mass effect or midline shift IMPRESSION: Significant patient motion degrades scan image quality No gross hemorrhage mass effect or midline shift Dictated By: Stoney Lugo MD Signed By: <Electronically signed by Stoney Luog MD in OV> 08/19/25 1543 Ordering Physician: Susan Salazar MD Date of Service: 08/19/25 Procedure(s): XR chest 1V portable Accession Number(s): [id number] cc: Stoney Lugo MD; Susan Salazar MD; NO PRIMARY/FAMILY,PHYSICIAN~ Examination: AP chest single view TECHNIQUE: Portable AP supine chest single view Date and time: August 19, 2025 1518 hours, comparison June 27, 2025 INDICATIONS: Shortness of breath seizure today FINDINGS: Normal heart size No aspiration pneumonia Air distended stomach The osseous structures are intact IMPRESSION: Significantly air distended stomach Dictated By: Stoney Lugo MD Signed By: <Electronically signed by Stoney Lugo MD in OV> 08/19/25 1530 Medications / Prescriptions Medications or Prescriptions considered but not ordered:: None Medication administrations:: Medication Administration History Potassium Chloride (Kcl Ivpb) 10 meq in 100 mls @ 100 mls/hr IV X1 ONE Stop: 08/19/25 17:01 Sodium Chloride (Ns) 1,000 mls @ 999 mls/hr IV .Q1H1M ONE Stop: 08/19/25 17:03 See above Consultations Consultation(s) initiated? (list below): Yes Consultation #1 (Physician, Specialty, Details): See course Diagnosis Seizure Differential Diagnosis: new onset seizure, epileptic seizure and status epilepticus Most likely diagnosis given after review of the tests above:: new onset seizure hypokalemia hyponatremia hypoxia Admission Indicated Admission indicated?: indicated Admission Request Was there a request for admission?: Yes Admission Attestation Admission request attestation: Discussed case with [] from Hospitalist service regarding admission. Discussed patients ED course, exam findings, labs, and radiology results. The Hospitalist [agrees,declines] to accept the patient for admission. Disposition Plan Disposition Plan: Admit Critical Care Time Critical Care Time Critical Care Time: Yes Total Critical Care Time (min.): 35 Attestation: The high probability of sudden, clinically significant deterioration in the patient's condition required the highest level of my preparedness to intervene urgently. The services I provided to this patient were to treat and/or prevent clinically significant deterioration. Services included the following: chart data review, reviewing nursing notes and/or old charts, documentation time, sr risk management consultant collaboration regarding findings and treatment options, medication orders and management, direct patient care, vital sign assessments and ordering, interpreting and reviewing diagnostic studies and lab tests. Aggregate critical care time includes only time during which I was engaged in work directly related to the patient's care, as described above, whether at bedside or elsewhere in the Emergency Department. It did not include time spent performing other reported procedures or the services of residents, students, nurses or physician assistants. Discharge Plan Plan Patient Disposition: Admit Acute Care w/in Hospital Prescriptions/Referrals Prescriptions/Med Rec: No Action naproxen 500 mg tablet 500 mg PO BID PRN (Reason: pain) Qty: 30 0RF cyclobenzaprine 5 mg tablet 5 mg PO TID PRN (Reason: muscle spasm) Qty: 30 0RF naproxen 500 mg tablet 500 mg PO BID PRN (Reason: pain) Qty: 30 0RF baclofen 10 mg tablet 10 mg PO BID PRN (Reason: muscle spasm) Qty: 30 0RF ibuprofen 800 mg tablet 800 mg PO TID PRN (Reason: pain) Qty: 30 0RF ibuprofen 800 mg tablet 800 mg PO TID PRN (Reason: pain) Qty: 30 0RF ibuprofen 600 mg tablet 600 mg PO Q6H PRN (Reason: pain) Qty: 30 0RF ibuprofen 600 mg tablet 600 mg PO Q8H PRN (Reason: pain) Qty: 20 0RF acetaminophen 500 mg capsule 500 mg PO Q6H PRN (Reason: pain) Qty: 30 0RF lidocaine [Lidoderm] 5 % adhesive patch,medicated 2 patch topical QDAY PRN (Reason: pain) Qty: 30 0RF Rx Instructions: leave on most painful area for up to 12 hrs cyclobenzaprine 5 mg tablet 5 mg PO TID PRN (Reason: muscle spasm) Qty: 15 0RF naproxen 500 mg tablet 500 mg PO BID PRN (Reason: pain) Qty: 14 0RF bacitracin 500 unit/gram ointment 1 applic topical Q12H Qty: 28 0RF ibuprofen 800 mg tablet 800 mg PO Q8H PRN (Reason: pain) Qty: 30 0RF sulfamethoxazole-trimethoprim [Bactrim DS] 800-160 mg tablet 1 tab PO BID Qty: 14 0RF naproxen 500 mg tablet 500 mg PO BID PRN (Reason: pain) Qty: 30 0RF tamsulosin [Flomax] 0.4 mg capsule 0.4 mg PO QDAY Qty: 30 0RF ibuprofen 600 mg tablet 600 mg PO Q6H PRN (Reason: pain) Qty: 30 0RF methocarbamol 500 mg tablet 1,000 mg PO Q8H PRN (Reason: pain) Qty: 30 0RF naproxen [Naprosyn] 500 mg tablet 500 mg PO BID Qty: 14 0RF ibuprofen 600 mg tablet 600 mg PO Q6H PRN (Reason: fever or pain) Qty: 30 0RF cyclobenzaprine 5 mg tablet 5 mg PO TID PRN (Reason: muscle spasm) Qty: 14 0RF naproxen 500 mg tablet 500 mg PO BID PRN (Reason: pain) Qty: 30 0RF cyclobenzaprine 5 mg tablet 5 mg PO TID PRN (Reason: muscle spasm) Qty: 30 0RF acetaminophen 500 mg capsule 500 mg PO Q6H PRN (Reason: pain) Qty: 30 0RF Referrals: No Primary/Family,Physician [Primary Care Provider] - In 1 week Problem List Clinical Impression: New onset seizure, Acute hyponatremia, Acute hypokalemia, Hypoxia Patient/Caregiver Discharge Instructions Print Language: Ivorian Stand Alone Forms: Tami Award Info., Patient Portal Info Letter
--- NOTE | 2025-08-19 14:57 | EKG_ITS ---
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
--- NOTE | 2025-08-19 14:57 | XR_ITS ---
Examination: CT brain head without contrast. 2-D sagittal coronal reconstructions Date and time of exam:August 19, 2025, 1515 hours, comparison June 27, 2025 INDICATIONS: Seizure today, patient fell, head pain CTDI: vol (mGy):52.9 DLP: (mGycm):1199 Technique: Multiple CT axial sections of the brain have been obtained, 5 mm slice thickness. Contrast has not been administered. 2-D sagittal, coronal reconstructions have been obtained Low dose protocols were performed. One or more of the following dose reduction techniques were used; automated exposure control, adjustment of the mA and/or KV according to patient size, use of iterative reconstruction technique. Findings: Significant patient motion degrades scan image quality Mild ventricular enlargement No gross hemorrhage mass effect or midline shift IMPRESSION: Significant patient motion degrades scan image quality No gross hemorrhage mass effect or midline shift
--- NOTE | 2025-08-19 14:59 | XR_ITS ---
Examination: AP chest single view TECHNIQUE: Portable AP supine chest single view Date and time: August 19, 2025 1518 hours, comparison June 27, 2025 INDICATIONS: Shortness of breath seizure today FINDINGS: Normal heart size No aspiration pneumonia Air distended stomach The osseous structures are intact IMPRESSION: Significantly air distended stomach
[2025-08-19 15:22] LABS: Collection Type, Urine Clean Catch
[2025-08-19 15:23] LABS: Basophils # (Auto) 0.0 Thou/mm3 (0.0-0.2); Basophils % (Auto) 0 % (0-2.5); Eosinophils # (Auto) 0.0 Thou/mm3 (0.0-0.5); Eosinophils % (Auto) 0 % (0-10); Hematocrit 40.5 % (41.0-53.0); Hemoglobin 14.1 g/dL (13.5-16.0); Immature Granulocytes Auto 0.14 Thou/mm3 (0.00-0.00); Lymphocytes # (Auto) 0.9 Thou/mm3 (1.0-4.8); Lymphocytes % (Auto) 5 % (10-50); Mean Corpuscular HGB Conc 34.8 g/dl (31.0-37.0); Mean Corpuscular Hemoglobin 30.3 pg (25.0-35.0); Mean Corpuscular Volume 87 fL (80-100); Monocytes # (Auto) 1.0 Thou/mm3 (0.0-0.8); Monocytes % (Auto) 6 % (0-12); Neutrophils # (Auto) 14.0 Thou/mm3 (1.8-7.7); Neutrophils % (Auto) 87 % (37-80); Nucleated Red Blood Cell # 0.00 Thou/mm3 (0.00-0.00); Nucleated Red Blood Cell % 0 /100 WBC (0); Platelet Count 263 Thou/mm3 (140-440); RDW Standard Deviation 38.2 fL (35.1-43.9); Red Blood Count 4.65 Miln/mm3 (4.50-5.90); White Blood Count 16.1 Thou/mm3 (3.8-10.6)
[2025-08-19 15:36] LABS: Bilirubin,Urine Negative (Negative); Blood,Urine 1+ (Negative); Clarity,Urine Clear (Clear/Hazy); Color,Urine Colorless (Lt Yel-Yel); Glucose, Urine Negative (Negative); Ketones,Urine Negative (Negative); Leukocyte Esterase,Urine Negative (Negative); Nitrite,Urine Negative (Negative); PH,Urine 7.0 (5.0-7.0); Protein,Urine Negative (Neg - Trace); RBC,Urine < 1 /hpf (0-3); Specific Gravity,Urine 1.002 (1.001-1.035); Squamous Epithelial Cell,Urine < 1 /hpf (0-5); Urobilinogen,Urine Negative mg/dL (0.0-1.0); WBC,Urine < 1 /hpf (0-5)
[2025-08-19 15:39] LABS: Amphetamine/Methamp Scrn,U Negative (Negative); Barbiturate Screen,Urine Negative (Negative); Benzodiazepines Screen,Urine Negative (Negative); Benzoylecgonine Screen, Ur Negative (Negative); Fentanyl Screen,Urine Negative (Negative); Opiate Screen,Urine Negative (Negative); THC Screen,Urine Negative (Negative)
--- NOTE | 2025-08-19 15:42 | PC.NURSE ---
PATIENT DUNIA FROM [facility] FOR SEIZURES. PATIENT DOES NOT HAVE HISTORY OF SEIZURES, PER EMS PATIENT GCS OF 3 ON ARRIVAL. PATIENT HAD TWO SEIZURES AT FACILITY AND WAS GIVEN ATIVAN, PATIENT ALSO HAD 3 SEIZURES ON ROUTE BY EMS AND WAS GIVEN 4MG IM VERSED TOTAL. PATIENT IS LETHARGIC BUT AROUSEABLE TO PAIN. DR. RESENDEZ MADE AWARE PATIENT WAS SATURATING 88-92% ON 15L OXY MASK. PER DR RESENDEZ IF PATIENT DROPS BELOW 91% PATIENT MAY NEED INTUBATION FOR POSSIBLE ASPIRATION PNEUMONIA. [facility] AT BEDSIDE AT ALL TIMES. VITALS ARE STABLE. PLAN OF CARE ONGOING.
[2025-08-19 15:43] LABS: Sperm,Urine Present
[2025-08-19 15:46] LABS: Alanine Aminotransferase 16 U/L (10-49); Albumin, Serum 4.4 gm/dL (3.5-5.0); Albumin/Globulin Ratio 1.7 (1.2-2.2); Alkaline Phosphatase 93 U/L (46-116); Anion Gap 17 (7-16); Aspartate Amino Transferase 43 U/L (0-34); BUN/Creatinine Ratio 9 Ratio (12-20); Bilirubin,Total 1.3 mg/dL (0.3-1.2); Blood Urea Nitrogen 10 mg/dL (9-23); Calcium 8.9 mg/dL (8.3-10.6); Calcium (Corrected) 8.9 mg/dL (8.5-10.1); Carbon Dioxide 21.4 mMol/L (20.0-31.0); Chloride 84 mMol/L (98-107); Creatinine (Component) 1.1 mg/dL (0.6-1.3); Globulin 2.6 gm/dL (2.3-3.5); Glucose 192 mg/dL (74-106); Lipase 21 U/L (12-53); Magnesium 1.9 mg/dL (1.6-2.6); Osmolality,Calculated 249 (275-295); Potassium 3.2 mMol/L (3.4-5.1); Procalcitonin 0.16 ng/ml (0.0-0.49); Sodium 122 mMol/L (136-145); Total Protein 7.0 gm/dL (5.7-8.2); eGFR > 60 See Note
[2025-08-19] MEDS: SODIUM CHLORIDE 0.9% 1000 ML 1,000 ML 999 ML IV (16:38)
--- NOTE | 2025-08-19 16:45 | PC.NURSE ---
PATIENT STILL LETHARGIC. RESIDENT RALPH IN TO ASSESS PATIENT FOR ADMISSION. RESIDENT MADE AWARE PATIENT'S OXYGEN SATURATION CONTINUE TO DROP TO MID 80'S. PATIENT HAVING SEIZURES.
[2025-08-19] MEDS: MIDAZOLAM INJ 1 MG/ML VIAL 2 ML 2 MG IVP ×5 (16:50→23:47)
--- NOTE | 2025-08-19 16:51 | PC.NURSE ---
PATIENT GIVEN 2MG IV VERSED PER RESIDENT RALPH ORDER. PER RESIDENT PATIENT TO HAVE STAT SODIUM REDRAWN
[2025-08-19] MEDS: SODIUM CHLORIDE 3%(Hypertonic) 100 ML in PRE-MIXED 1 BAG 999 ML IV (17:00)
[2025-08-19] MEDS: POTASSIUM CHL 10 mEq IVPB 10 MEQ/100 ML BAG 100 MEQ IV ×2 (17:37→21:12)
[2025-08-19 17:39] LABS: Sodium 123 mMol/L (136-145)
[2025-08-19] MEDS: levETIRAcetam INJ 100 MG/ML VIAL 5ML 2000 MG IVP (17:40)
--- NOTE | 2025-08-19 17:54 | XR_ITS ---
Examination: AP chest single view Technique: Portable supine AP chest single view, comparison 08/19/2025 1518 hrs. Indications: Hypoxic respiratory failure postintubation, post orogastric tube placement Findings: Significant right base pneumonia, consider aspiration pneumonia Markedly air distended stomach The orogastric tube is coiled in the mid and upper esophagus Endotracheal tube tip 3.2 cm above lala The film is rotated RPO Impression: Remove the orogastric tube completely and reinsert Significant right base pneumonia, consider aspiration pneumonia Markedly air distended stomach The endotracheal tube is 3.2 cm above lala
[2025-08-19] MEDS: ETOMIDATE INJ 2 MG/ML VIAL 10 ML 20 MG IVP (18:01)
[2025-08-19] MEDS: ROCURONIUM INJ 10 MG/ML VIAL 10 ML 80 MG IV (18:02)
--- NOTE | 2025-08-19 18:09 | ESHP_ITS ---
<Statement entered by Willie Mejia MD - 08/19/25 19:23> Senior Resident Attestation: I supervised/discussed management plan with wireless internet installer physician Dr. Montgomery, and was involved in the care of this patient. I personally saw and examined the patient and discussed the assessment and plan with the entire medicine team, including my attending. I agree with the assessment and plan as documented. Patient is a 45 years old male with PMH of CVA presented to the ED [facility] from [facility] due to seizures. He developed 2 episodes of seizures while evaluated by EMS which responded well on benzodiazepines. CT head was negative for hemorrhage. He was given loading dose of Keppra and neurology was consulted. Patient developed more seizure episodes while in the ED and has never regained conscious, therefore he was intubated in the ED. He was started on propofol, fentanyl and set dose drip of medazolam 1 mg/hr. Continuous EEG was ordered. His Na was 122, he was given 1L of NS in the ED. Based on bedside echo patient is euvolemic, therefore we will keep him fluid restricted and will follow up on Na Q4H. Patient was admitted to ICU for further management. Patient's care was discussed with attending physician, Dr. Salazar. Willie Mejia MD PGY-3. Documentation for date of: 08/19/25 HPI History of Present Illness History of present illness: 45 year old male with reported PMH of CVA (per prior charts), unspecified psychiatric illness, and chronic homelessness presents to the ED [facility] from [facility] for evaluation of seizures. Per the medics and nursing staff at the [facility], the patient experienced a witnessed seizure episode earlier today. The first seizure reportedly lasted for approximately 5 minutes, and the patient was administered an unknown dose of Ativan. Shortly after, the patient had a second tonic-clonic seizure, lasting approximately 30 seconds, followed by a third tonic-clonic seizure that lasted less than one minute. Medics report administered 4 mg of intranasal Versed. Pre-hospital BS was noted to be 216. During transport, the patient was observed to have snoring respirations and bagged with BVM, saturating 99%. Upon initial assessment, blood was noted in and around the patient?s mouth, likely secondary to tongue trauma during the seizures. It is unclear if the patient sustained any head injury during the event. No documented prior history of seizures. In the ED, vitals showed: BP 137/96 (then 172/125) HR 86 RR 16 Temp 98.6 SpO2 95% on 15 L oxygen mask ED Course: CBC showed WBC 16.1 but was otherwise WNL. CMP showed sodium 122, potassium 3.2, chloride 84, carbon dioxide 21.4, anion gap 17, blood glucose 192, calculated osmolality 249, magnesium 1.9, total bilirubin 1.3, AST 43, ALT 16, lipase 21, and procalcitonin 0.16. UA showed clear, colorless urine with specific gravity 1.002 and 1+ blood but was otherwise unremarkable. UDS was negative. Imagin/[address]'s scan image quality was poor due to significant patient motion but seemed to show mild ventricular enlargement and was negative for gross hemorrhage, mass effect, or midline shift. 08/19 chest x-ray showed significant right base pneumonia (possibly aspiration) and a significantly air distended stomach. 08/19 EKG showed sinus rhythm with rate 86 and slightly prolonged QTc 458. 08/19 bedside echo suggests euvolemic status. In the ED, patient was given 1 L NS bolus, midazolam 2 mg x 1, potassium chloride 10 mEq x 1, levetiracetam 2000 mg x 1 and started on NS fluid infusion @ 100 cc/hr, midazolam 2 mg prn, and IV Protonix 40 mg qD. Due to concern regarding patient's ability to protect his airway, he was intubated using etomidate 20 mg and rocuronium 80 mg. Patient was admitted to the ICU for the work-up and management of multiple seizure episodes refractory to antiepileptics and requiring intubation in the setting of euvolemic, hypoosmolar hyponatremia. Neurology has been consulted. Review of Systems Review of Systems ROS Unobtainable: unobtainable due to mental status and due to endotracheal tube Exam Vital Signs Temp Pulse Resp BP Pulse Ox O2 Del Method O2 Flow Rate 98.6 F 99 16 135/85 H 93 L Oxy Mask 08/19/25 15:17 08/19/25 17:22 08/19/25 17:22 08/19/25 17:22 08/19/25 17:22 08/19/25 17:22 08/19/25 17:22 Narrative Exam Physical Exam: General: Intubated on mechanical ventilation and unconscious. Skin: Warm, dry, intact, no obvious rash. Tattooed. Head: Normocephalic, atraumatic. Eyes: Pupils equal but seem non-reactive to light. Pupil diameter between 3-4 mm bilaterally when examined under low light conditions. Anicteric. Ears: No ear discharge. Mouth/Throat: Dried blood noted around lips and superficial laceration to lower lip. Cardiovascular: Tachycardic rate and normal rhythm, no murmur, no JVD or carotid bruits. +S1/S2. Respiratory: Intubated on volume control. Significant, diffuse rhonchi and crackles of right anterior and posterior lung peralta (especially at the bases). Slight crackles on left anterior lung field. No wheezing. Gastrointestinal: Distended. Soft, no palpable masses. Bowel sounds present. Extremities: Symmetrical, no significant deformities. No edema, no cyanosis, no clubbing. 2+ radial pulse bilaterally, 2+ posterior tibial pulse bilaterally. Results: Labs 08/19/25 14:55 08/19/25 17:13 Labs: Short CBC 08/19/25 Range/Units 14:55 WBC 16.1 H (3.8-10.6) Thou/mm3 Hgb 14.1 (13.5-16.0) g/dL Hct 40.5 L (41.0-53.0) % Plt Count 263 (140-440) Thou/mm3 BMP 08/19/25 08/19/25 14:55 17:13 Sodium 122 L 123 L Potassium 3.2 L Chloride 84 L Carbon Dioxide 21.4 BUN 10 Creatinine 1.1 Glucose 192 H Calcium 8.9 Liver Function 08/19/25 Range/Units 14:55 Total Bilirubin 1.3 H (0.3-1.2) mg/dL AST 43 H (0-34) U/L ALT 16 (10-49) U/L Alkaline Phosphatase 93 (46-116) U/L Albumin 4.4 (3.5-5.0) gm/dL Urine 08/19/25 Range/Units 15:00 Urine Color Colorless A (Lt Yel-Yel) Urine Clarity Clear (Clear/Hazy) Urine pH 7.0 (5.0-7.0) Ur Specific [place] 1.002 (1.001-1.035) Urine Protein Negative (Neg - Trace) Urine Glucose (UA) Negative (Negative) Quality Measures Quality Measures none Medications Home Medications and Allergies Allergies Allergy/AdvReac Type Severity Reaction Status Date / Time No Known Allergies Allergy Verified 07/09/25 06:29 Visit Medications Acetaminophen (Acetaminophen 325 Mg Tablet) 650 mg PO Q6H PRN PRN Reason: Fever >101.5 or pain 1-3 Stop: 09/18/25 17:02 Ampicillin Sodium/Sulbactam (Sodium 3 gm/ Sodium Chloride) 100 mls @ 200 mls/hr IV Q6HR IAN Stop: 08/26/25 17:59 Midazolam HCl (Midazolam Inj 1 Mg/Ml Vial 2 Ml) 2 mg IVP Q30MIN PRN PRN Reason: Seizures Last Admin: 08/19/25 17:12 Dose: 2 mg Pantoprazole Sodium (Pantoprazole Inj 40 Mg Vial) 40 mg IVP QDAY IAN Stop: 09/18/25 17:29 Last Admin: 08/19/25 17:46 Dose: 40 mg Discontinued Medications Etomidate (Etomidate Inj 2 Mg/Ml Vial 10 Ml) 20 mg IVP X1 ONE Stop: 08/19/25 17:54 Last Admin: 08/19/25 18:01 Dose: 20 mg Potassium Chloride (Kcl Ivpb) 10 meq in 100 mls @ 100 mls/hr IV X1 ONE Stop: 08/19/25 17:01 Last Admin: 08/19/25 17:37 Dose: 100 mls/hr Sodium Chloride (Ns) 1,000 mls @ 999 mls/hr IV .Q1H1M ONE Stop: 08/19/25 17:03 Last Infusion: 08/19/25 16:50 Dose: 0 mls/hr Sodium Chloride 500 ml/ IV (Miscellaneous Supplies) 500 mls @ 30 mls/hr IV X1 ONE Stop: 08/20/25 09:31 Last Admin: 08/19/25 17:20 Dose: Not Given Sodium Chloride 100 ml/ IV (Miscellaneous Supplies) 100 mls @ 999 mls/hr IV X1 ONE Stop: 08/19/25 16:57 Last Infusion: 08/19/25 17:10 Dose: Infused Levetiracetam (Levetiracetam Inj 100 Mg/Ml Vial 5ml) 1,000 mg IVP X1 ONE Stop: 08/19/25 17:30 Last Admin: 08/19/25 17:46 Dose: Not Given Levetiracetam (Levetiracetam Inj 100 Mg/Ml Vial 5ml) 4,500 mg IV X1 ONE Stop: 08/19/25 17:33 Last Admin: 08/19/25 17:46 Dose: Not Given Levetiracetam (Levetiracetam Inj 100 Mg/Ml Vial 5ml) 2,000 mg IVP X1 ONE Stop: 08/19/25 17:55 Last Admin: 08/19/25 17:40 Dose: 2,000 mg Midazolam HCl (Midazolam Inj 1 Mg/Ml Vial 2 Ml) 2 mg IVP X1 ONE Stop: 08/19/25 16:48 Last Admin: 08/19/25 16:50 Dose: 2 mg Midazolam HCl (Midazolam Inj 1 Mg/Ml Vial 2 Ml) 2 mg IVP Q1HR PRN PRN Reason: Seizures Stop: 08/24/25 16:50 Rocuronium [place] (Rocuronium Inj 10 Mg/Ml Vial 10 Ml) 80 mg 1 mg/kg (80 mg) IV X1 ONE Stop: 08/19/25 17:54 Last Admin: 08/19/25 18:02 Dose: 80 mg Sodium Chloride (Sodium Chloride Rt 10% 15 Ml Nebu) 5 ml INH X1 ONE Stop: 08/19/25 18:08 Assessment & Plan Plan 45 year old male with reported PMH of CVA (per prior charts), unspecified psychiatric illness, and chronic homelessness presents to the ED [facility]IB[facility] from [facility] for evaluation of seizures. In the ED, patient was given 1 L NS bolus, midazolam 2 mg x 1, potassium chloride 10 mEq x 1, levetiracetam 2000 mg x 1 and started on NS fluid infusion @ 100 cc/hr, midazolam 2 mg prn, and IV Protonix 40 mg qD. Due to concern regarding patient's ability to protect his airway, he was intubated using etomidate 20 mg and rocuronium 80 mg. Patient was admitted to the ICU for the work-up and management of multiple seizure episodes refractory to antiepileptics and requiring intubation in the setting of euvolemic, hypoosmolar hyponatremia. Neurology has been consulted. NEURO #Grand mal (tonic-clonic) seizures, new onset, multiple episodes, refractory to antiepileptics, requiring intubation Patient presents from [facility] and was witnessed to have 2 episodes of seizure that responded well to benzodiazepines. However, despite being given a loading dose of Keppra, patient developed more seizures episode in the ED and never regained consciousness and required intubation. In the setting of severe hypoosmolar euvolemic hyponatremia (sodium 122), likely metabolic in nature DDx: substance-induced etiology, acute ischemic stroke, post-traumatic epilepsy w/o detectable imaging changes, autoimmune epilepsy (BUSINESS RELATIONS MANAGER vasculitis or limbic encephalitis) Dx: -Head CT negative for gross hemorrhage, mass effect, or midline shift -06/27/25 ESR 56 Rx: -s/p administrations of unknown dose of lorazepam x 1, intranasal midazolam 4 mg x 1, IV midazolam 2 mg x 1, IV Keppra 2 gm x 1 (loading dose), and 2 of 4 doses of IV midazolam 2 mg q30m prn -IV midazolam drip @ 1 mg/hr -Ordered continuous EEG monitoring -Neuro checks q4HR -Neurology has been consulted, appreciate recommendations #Chemical sedation Sedated with propofol, fentanyl and midazolam to maintain RASS 0 (alert and calm) while intubated Midazolam serves the dual purpose of possibly reducing chances of breakthrough seizures Rx: -Daily SATs as appropriate for timely weaning of sedation CARDIO #Hypertensive urgency / emergency At time of interview, patient was intubated and seen to have BP greater than 180/120 SBP and DBP (patient was normotensive upon admission) Etiology unclear at this time DDx: acute ischemic stroke, BUSINESS RELATIONS MANAGER vasculitis Rx: -Ordered TSH -Monitor for now, consider IV hydralazine or IV labetalol if worsening PULM #Intubated on volume control from sub-8 GCS Patient had a seizure in the ED which left him unconscious with GCS lower than 8, requiring intubation Dx: -08/19 ABG of right radial artery was unremarkable Rx: -Continue intubation and mechanical ventilation -Monitor ABG and adjust ventilator settings accordingly -Perform SBTs when appropriate GI #Transaminitis Admission AST 43, ALT 16 Mild, possibly reactive NEPHRO #Severe symptomatic hypoosmolar euvolemic hyponatremia #Hypokalemia #Hypochloremia DDx: SIADH, medication-induced (SSRI, carbamazepine), adrenal insufficiency, hypothyroidism, Dx: -Admission sodium 122, potassium 3.2, chloride 84 -Urine electrolytes: uRandom creatinine 17, uRandom total protein < 6, uRandom sodium 40.8, uRandom potassium 11, uRandom chloride 37.0 Rx: -Fluid restriction of 800 - 1000 mL (avoid over-corrections of 8 or more mEq/L in 24 hours to avoid osmotic demyelination syndrome) -Sodium checks q4HR -Evaluation of drugs that may lower seizure threshold or contribute to SIADH (patient has history of psychiatric illness per chart review so he may be on antipsychotics) HEME #Leukocytosis Admission WBC 16.1, afebrile, likely reactive ENDO #No active problems ID #??Aspiration pneumonia In the setting of seizures and apparent tongue-biting during episodes Dx: -CXR showed significant right base pneumonia concerning for possible aspiration pneumonia -On lung auscultation, patient was noted to have significant, diffuse rhonchi and crackles of right anterior and posterior lung peralta (especially at the bases) as well as slight crackles on left anterior lung field Rx: -s/p IV vancomycin 1500 mg x 1 -IV vancomycin qD [08/19--] -IV Unasyn 3 gm q6HR [08/19--] -Ordered MRSA nares (may discontinue vancomycin if negative) -Ordered blood culture -Consider chest physiotherapy Disposition: Requires ICU management due to intubation and refractory seizures DVT prophylaxis: SCDs GI prophylaxis: IV Protonix 40 mg qD Diet: NPO [place]: Present Lines: Peripheral IV Antibiotics: IV vancomycin and Unasyn CODE STATUS: FULL Patient plan of care was discussed with the attending shank threader, Dr. Salazar. Zachary Montgomery, DO Internal Medicine, PGY-1
--- NOTE | 2025-08-19 18:12 | PD.EDADDENDU ---
Emergency Room Addendum Addendum Narrative: 1800h: After patient accepted for admission, it appears that patient did continue to have additional seizure activity. Nursing staff informed hospital team regarding this and patient was given additional doses of Versed as well as loading dose of Keppra. Due to continued seizures as well as desatting at times to the 80s, the hospital team requested ICU to accept patient. At this time I was informed by ICU regarding events since admission by medicine. Decision made to intubate patient to protect airway and due to the status epilepticus that he is in. Patient was intubated with a 7.5mm tube using a #4 Mac blade and secured at 26 at the teeth. Bilateral breath sounds heard and positive color change present. Chest x-ray ordered for confirmation. ICU informed of intubation and accepted to ICU. Dx: Status epilepticus, hyponatremia, hypokalemia
[2025-08-19] MEDS: PROPOFOL 1,000 MG IVPB 1,000 MG/100 ML VIAL 2.395 MG IV (18:22)
--- NOTE | 2025-08-19 18:25 | EVENTNT_ITS ---
Documentation for date of: 08/19/25 Event Note Event Note: This patient is a 45-year-old male with a past medical history of chronic bilateral lower extremity pain who presented to [facility] ED from [facility] with a chief complaint of seizures. The patient was initially admitted for management of status epilepticus, however the patient was later found to require intubation after admission, prompting transfer to ICU level care. The patient has no known history of seizures, but does have a possible history of CVA with residual right-sided deficits. Earlier this morning, the patient was found having about a 5-minute seizure after he was taken to have a shower. At the [facility], the patient was given Ativan which seemed to control the initial seizure, but it was noted that the patient had another seizure while he was in the facility. EMS was called and it was noted that the patient had 3 seizures en route, which initially seemed to be controlled with 4 mg of Versed. On evaluation in the ED, the patient was noted to have another seizure that lasted about 30 seconds. Initial vitals were significant for blood pressure of 137/96 and O2 saturation 95% on 15 L oxy mask. Initial labs showed leukocytosis at 16.1, sodium of 122, potassium 3.2, chloride 84, anion gap 17, and AST 43.urine toxicology was negative. The patient was given 1 L NS and physician in the ED made the decision to admit the patient. When the medicine team went down to evaluate the patient, it was noted that the patient was having an active seizure that involved minimal but repetitive tonic-clonic flexion of his left thumb and repetitive oral motion accompanied by oxygen desaturation to 85%. Patient was completely unresponsive to verbal and noxious stimuli throughout the assessment. Significant crackles were noted throughout both lungs, but most noticeable on the patient's right lower lung. Patient was given 2 mg of midazolam, followed by a second dose of 2 mg midazolam about 20 minutes later, but the patient continued to have periodic tonic-clonic activity. Medicine team thought that the patient's hyponatremia of 122 was likely the cause of his new onset seizures, so 100 cc of 3% normal saline was given with stat sodium check afterwards, which resulted as 123. Patient continued to have seizures, so additional 500 cc of 3% normal saline was given. Eventually it was noted that the patient was not resaturating after an oxygen desaturation to 85%. Patient was loaded up with 2 mg of Keppra and ICU team was contacted given the concern for status epilepticus with failure to protect airways that required sedation and intubation. ICU team evaluated the patient and agreed with plans for intubation, so the patient was intubated and upgraded to ICU care. Patient plan of care was discussed with attending physician Dr. Tasia Godwin, PGY1
[2025-08-19] MEDS: fentaNYL 2,500 MCG/250 ML BAG 2,500 MCG/250 ML BAG IV (18:38)
[2025-08-19] MEDS: MIDAZOLAM/NS 100 MG IVPB 100 MG/100 ML BAG IV (18:39)
[2025-08-19 19:08] LABS: Lactate (Lactic Acid) 1.8 mMol/L (0.4-2.0)
[2025-08-19] MEDS: AMPICILLIN/SULBAC INJ 3 GM in SODIUM CHLORIDE 0.9% (POP) 100 ML IV (19:10)
[2025-08-19 19:23] LABS: Chloride,Urine Random 37.0 mMol/L (55.0-125.0); Creatinine,Random Urine 17 mg/dL (30-125); Potassium,Urine Random 11 mMol/L (12-62); Protein Total, Random Urine < 6 mg/dL (1-14); Sodium,Urine Random 40.8 mMol/L (20.0-110.0)
[2025-08-19 19:35] LABS: Base Excess -1 (-3-3); HCO3 23 mEq/L (20-26); Inspired Oxygen, FIO2 100 %; O2 Saturation 100 % (91-98); PCO2 34 mmHg (32.0-48.0); PO2 250 mmHg (83-108); pH, Arterial 7.43 (7.35-7.45)
[2025-08-19 19:36] LABS: Allen Test Performed/OK; Puncture Site Right Radial
--- NOTE | 2025-08-19 21:13 | PC.RT ---
1830 sputum collected and taken to lab.
[2025-08-19] MEDS: Vancomycin Inj 1,500 MG in SODIUM CHLORIDE 0.9% 500 ML 500 ML 200 MG IV (21:32)
--- NOTE | 2025-08-19 21:45 | XR_ITS ---
Examination: AP chest single view Technique one AP portable supine chest single view Date and time: August 19, 2000 2510 0 3:00 PM, comparison 08/19/2025 1833 hrs. Indications: Post orogastric tube placement Findings: Orogastric tube in stomach but significant air distended stomach remains Endotracheal tube tip 4.4 cm above lala Atelectasis and pneumonia at the right lung base Mild prominence left ventricle Impression: Orogastric tube in the stomach but significantly air distended stomach remains
[2025-08-19 21:46] LABS: Sodium 128 mMol/L (136-145)
[2025-08-20] VITALS (57 sets, daily range): BP systolic 79–133; BP diastolic 58–97; PULSE 72–103; RESP 14–18; TEMP 35.5–37.3; O2SAT 98–100; BMI 25.3
--- NOTE | 2025-08-20 00:19 | RESP.EEG ---
Extended 24HR EEG started 08/19/2025 @ 6142.
--- NOTE | 2025-08-20 00:21 | RESP.EEG ---
Extended 24HR EEG was started 08/19/2025 @ 2342.
--- NOTE | 2025-08-20 00:49 | XR_ITS ---
Examination: AP chest single view Technique one AP portable semiupright chest single view Date and time: August 20, 2025, 0055 hrs., Comparison August 19, 2025 Indications: Hypoxic respiratory failure, atelectasis and pneumonia at the right lung base on chest film 08/19/2025 Findings: Significant pneumonia right base Normal heart size Orogastric tube in the stomach satisfactory position Endotracheal tube tip 3.7 cm above lala. Mild osteopenia. Impression: Significant pneumonia right base
[2025-08-20] MEDS: AMPICILLIN/SULBAC INJ 3 GM in SODIUM CHLORIDE 0.9% (POP) 100 ML IV ×4 (00:51→17:31)
[2025-08-20] MEDS: PROPOFOL 1,000 MG IVPB 1,000 MG/100 ML VIAL 23.95 MG IV ×2 (01:31→06:55)
[2025-08-20 01:36] LABS: Sodium 129 mMol/L (136-145)
[2025-08-20 04:44] LABS: Base Excess 2 (-3-3); HCO3 26 mEq/L (20-26); Inspired Oxygen, FIO2 40 %; O2 Saturation 99 % (91-98); PCO2 38 mmHg (32.0-48.0); PO2 107 mmHg (83-108); pH, Arterial 7.44 (7.35-7.45)
[2025-08-20 04:53] LABS: Allen Test Performed/OK; Puncture Site Right Radial
[2025-08-20 05:17] LABS: Basophils # (Auto) 0.1 Thou/mm3 (0.0-0.2); Basophils % (Auto) 1 % (0-2.5); Eosinophils # (Auto) 0.1 Thou/mm3 (0.0-0.5); Eosinophils % (Auto) 1 % (0-10); Hematocrit 43.4 % (41.0-53.0); Hemoglobin 15.2 g/dL (13.5-16.0); Immature Granulocytes Auto 0.01 Thou/mm3 (0.00-0.00); Lymphocytes # (Auto) 1.2 Thou/mm3 (1.0-4.8); Lymphocytes % (Auto) 14 % (10-50); Mean Corpuscular HGB Conc 35.0 g/dl (31.0-37.0); Mean Corpuscular Hemoglobin 30.7 pg (25.0-35.0); Mean Corpuscular Volume 88 fL (80-100); Monocytes # (Auto) 0.7 Thou/mm3 (0.0-0.8); Monocytes % (Auto) 8 % (0-12); Neutrophils # (Auto) 6.3 Thou/mm3 (1.8-7.7); Neutrophils % (Auto) 76 % (37-80); Nucleated Red Blood Cell # 0.00 Thou/mm3 (0.00-0.00); Nucleated Red Blood Cell % 0 /100 WBC (0); Platelet Count 209 Thou/mm3 (140-440); RDW Standard Deviation 39.5 fL (35.1-43.9); Red Blood Count 4.95 Miln/mm3 (4.50-5.90); White Blood Count 8.2 Thou/mm3 (3.8-10.6)
[2025-08-20 05:45] LABS: INR 1.1 (0.9-1.3); Partial Thromboplastin Time 31.0 Seconds (22.0-36.0); Prothrombin Time 11.7 Seconds (9.0-12.2)
[2025-08-20 06:12] LABS: Alanine Aminotransferase 18 U/L (10-49); Albumin, Serum 3.9 gm/dL (3.5-5.0); Albumin/Globulin Ratio 1.6 (1.2-2.2); Alkaline Phosphatase 79 U/L (46-116); Anion Gap 11 (7-16); Aspartate Amino Transferase 60 U/L (0-34); BUN/Creatinine Ratio 8 Ratio (12-20); Bilirubin,Total 1.1 mg/dL (0.3-1.2); Blood Urea Nitrogen 7 mg/dL (9-23); Calcium 9.2 mg/dL (8.3-10.6); Calcium (Corrected) 9.3 mg/dL (8.5-10.1); Carbon Dioxide 25.7 mMol/L (20.0-31.0); Cardiac Risk Estimate 2.1 RATIO (4.0-6.7); Chloride 97 mMol/L (98-107); Cholesterol 111 mg/dL (132-200); Creatinine (Component) 0.9 mg/dL (0.6-1.3); Estimated Creatinine Clearance 94.9 mL/min (>60); Globulin 2.5 gm/dL (2.3-3.5); Glucose 89 mg/dL (74-106); HDL Cholesterol 53 mg/dL (40-60); LDL Cholesterol,Calculated 45 mg/dL (0-130); Magnesium 2.4 mg/dL (1.6-2.6); Osmolality,Calculated 265 (275-295); Phosphorous 3.6 mg/dL (2.4-5.1); Potassium 4.1 mMol/L (3.4-5.1); Sodium 134 mMol/L (136-145); Thyroid Stimulating Hormone 0.89 uIU/mL (0.55-4.78); Total Protein 6.4 gm/dL (5.7-8.2); Triglycerides 64 mg/dL (30-150); eGFR > 60 See Note
--- NOTE | 2025-08-20 06:30 | RESP.EEG ---
IMPEDENCES CHECKED AT THIS TIME AND CORRECTED. WILL CONTINUE TO MONITOR
[2025-08-20] MEDS: RINGERS LACTATED 1000 ML 1,000 ML 999 ML IV ×3 (08:25→13:38)
[2025-08-20] MEDS: MIDAZOLAM INJ 1 MG/ML VIAL 2 ML 2 MG IVP (08:30)
[2025-08-20 10:40] LABS: Sodium 135 mMol/L (136-145)
[2025-08-20] MEDS: VANCOMYCIN/NS 1 GM IVPB 200 ML IV ×2 (10:54→21:31)
[2025-08-20] MEDS: ENOXAPARIN SOD INJ 40 MG/0.4 ML SYRINGE SC (10:55)
--- NOTE | 2025-08-20 11:17 | PC.SS ---
Update: Patient is admitted from [facility]. Patient has law enforcement at bedside. Patient is currently intubated. NPO status. Patient is on Restraints. Patient receiving IV ABX and is in position of no fever. Neurology is consulting.
--- NOTE | 2025-08-20 11:24 | ESPR_ITS ---
<Statement entered by Danny Lezama MD - 08/20/25 18:17> Patient was seen and examined in the ICU. Patient is admitted due to status epilepticus. Overnight, patient's sodium overcorrected quickly and D5W was not given. Patient had a urine output of 4.9 L overnight. Patient has been making 300 cc every hour of urine. Head CT was repeated which was negative. Patient was seizing mostly during the day and was given Versed pushes. Urine electrolytes were diluted therefore desmopressin was given and due to uptrending. Sodium. D5W at 125 was started and additional 2 mg desmopressin given. Patient will be continued on propofol and fentanyl. Neurology recommended that they will follow-up with extended EEG and no need of antiepileptic medication for now and correct sodium. I saw and examined the patient, and I agree with current management stated by Dr Richard MD,PGY1. Plan of care was discussed with the attending physician and resident physician. Disclaimer: Despite multiple revisions, due to the dictation software being used, the document bellow may not be free of grammatical errors including phonetic/typographic errors. However, this does not deter from our commitment to providing health care in the patient's best interest in mind. Dr. Teja MD, PGY 3 Documentation for date of: 08/20/25 Subjective Subjective Interval history: 45-year-old male with no prior seizure history presented to the ED from [facility] after multiple seizures without return to baseline. En route, he continued to seize and was treated with benzodiazepines. In the ED, the patient had ongoing seizure activity with intermittent desaturation to the 80s, prompting intubation for airway protection and initiation of sedation with propofol and midazolam infusions. He was given a loading dose of levetiracetam. CT head showed no acute intracranial hemorrhage. Initial labs revealed significant hyponatremia (Na 122), for which he was placed on fluid restriction. Neurology was consulted, and continuous EEG monitoring was started. The patient was admitted to the ICU for further management of status epilepticus. Interval History 08/20/25: The patient remained on fluid restriction overnight and was noted to have a brisk urine output, totaling nearly 5 liters. On admission, serum sodium was 122 and had risen to 134 by this morning. Due to the rapid correction, 1L LR was administered, with a repeat sodium of 135. A second liter of LR was then given. Urine electrolytes were obtained and returned very dilute, with low sodium, potassium, and chloride. By early afternoon, sodium increased further to 141, prompting a head CT to evaluate for cerebral edema due to concern for underlying central diabetes insipidus. CT head was found to be within normal limits. The patient subsequently received an additional liter of LR and 1 mcg of desmopressin x1. A repeat sodium was 142, after which 2 mcg of desmopressin and D5W were administered. When sedation was held this morning, the patient developed shaking tremors with spasticity. He was treated with 2 mg midazolam, and propofol was restarted. Continuous EEG demonstrated no seizure activity. Throughout the day, urine output has remained brisk at 200?400 cc/hr. Will continue to monitor sodium Q4H. Exam Vital Signs Temp Pulse Resp BP Pulse Ox O2 Del Method O2 Flow Rate 97 F 84 16 100/78 99 Mechanical Ventilation 15 08/20/25 10:00 08/20/25 10:39 08/20/25 10:00 08/20/25 10:39 08/20/25 10:39 08/20/25 10:00 08/19/25 17:22 FiO2 35 08/20/25 10:39 Narrative Exam Physical Exam: General: Intubated on mechanical ventilation and unconscious. ET tube and OG tube in place. Head: unable to exam with EEG cap on. Eyes: Pupils equal but seem non-reactive to light. Small pupils. Anicteric. Mouth/Throat: Superficial laceration and one white ulcer to lower lip. Cardiovascular: Regular rate and normal rhythm, no murmur, no JVD or carotid bruits. Respiratory: Intubated on volume control. Diffuse rhonchi and crackles of right anterior lung field (especially at the base). Slight crackles on left anterior lung field. No wheezing. Gastrointestinal: Soft, no palpable masses.Non-distended. Bowel sounds present. Extremities: Symmetrical, no significant deformities. No edema, no cyanosis, no clubbing. 2+ radial pulse bilaterally, 2+ posterior tibial pulse bilaterally. Skin: Warm, dry, intact, no obvious rash. Tattoos. Stage 1 sacrum pressure ulcer present with bandage in place. Objective Labs 08/21/25 04:06 08/21/25 04:06 Labs: Laboratory Results - last 24 hr 08/19/25 08/19/25 08/19/25 14:55 15:00 17:13 WBC 16.1 H RBC 4.65 Hgb 14.1 Hct 40.5 L MCV 87 MCH 30.3 MCHC 34.8 RDW Std Deviation 38.2 Plt Count 263 Neut % (Auto) 87 H Lymph % (Auto) 5 L Berg[place] % (Auto) 6 Eos % (Auto) 0 Baso % (Auto) 0 Neut # (Auto) 14.0 H Lymph # (Auto) 0.9 L Berg[place] # (Auto) 1.0 H Eos # (Auto) 0.0 Baso # (Auto) 0.0 Immature Gran # (Auto) 0.14 H Absolute Nucleated RBC 0.00 Immature Gran % 1 H Nucleated RBC % 0 PT INR APTT Puncture Site ABG pH ABG pCO2 ABG pO2 ABG HCO3 ABG O2 Saturation ABG Base Excess FiO2 Sodium 122 L 123 L Potassium 3.2 L Chloride 84 L Carbon Dioxide 21.4 Anion Gap 17 H BUN 10 Creatinine 1.1 Estim Creat Clear Calc Not Performed. eGFR > 60 BUN/Creatinine Ratio 9 L Glucose 192 H Calculated Osmolality 249 L Lactic Acid Calcium 8.9 Corrected Calcium 8.9 Phosphorus Magnesium 1.9 Total Bilirubin 1.3 H AST 43 H ALT 16 Alkaline Phosphatase 93 Total Protein 7.0 Albumin 4.4 Globulin 2.6 Albumin/Globulin Ratio 1.7 Triglycerides Cholesterol LDL Cholesterol, Calc HDL Cholesterol Cholesterol/HDL Ratio Lipase 21 Procalcitonin 0.16 TSH Ur Collection Type Clean Catch Urine Color Colorless A Urine Clarity Clear Urine pH 7.0 Ur Specific Larue 1.002 Urine Protein Negative Urine Glucose (UA) Negative Urine Ketones Negative Urine Blood 1+ A Urine Nitrite Negative Urine Bilirubin Negative Urine Urobilinogen (Auto) Negative Ur Leukocyte Esterase Negative Urine RBC < 1 Urine WBC < 1 Ur Squamous Epith Cells < 1 Urine Bacteria None Urine Sperm Present A Ur Random Creatinine U Random Total Protein Ur Random Sodium Ur Random Potassium Ur Random Chloride Urine Opiates Screen Negative Urine Fentanyl Screen Negative Ur Barbiturates Screen Negative U Amphetamin/Meth Scrn Negative U Benzodiazepines Scrn Negative U Cocaine Metab Screen Negative U Marijuana (THC) Screen Negative 08/19/25 08/19/25 08/19/25 18:56 19:00 19:30 WBC RBC Hgb Hct MCV MCH MCHC RDW Std Deviation Plt Count Neut % (Auto) Lymph % (Auto) Bergen % (Auto) Eos % (Auto) Baso % (Auto) Neut # (Auto) Lymph # (Auto) Bergen # (Auto) Eos # (Auto) Baso # (Auto) Immature Gran # (Auto) Absolute Nucleated RBC Immature Gran % Nucleated RBC % PT INR APTT Puncture Site Right Radial ABG pH 7.43 ABG pCO2 34 ABG pO2 250 H ABG HCO3 23 ABG O2 Saturation 100 H ABG Base Excess -1 FiO2 100 Sodium Potassium Chloride Carbon Dioxide Anion Gap BUN Creatinine Estim Creat Clear Calc eGFR BUN/Creatinine Ratio Glucose Calculated Osmolality Lactic Acid 1.8 Calcium Corrected Calcium Phosphorus Magnesium Total Bilirubin AST ALT Alkaline Phosphatase Total Protein Albumin Globulin Albumin/Globulin Ratio Triglycerides Cholesterol LDL Cholesterol, Calc HDL Cholesterol Cholesterol/HDL Ratio Lipase Procalcitonin TSH Ur Collection Type Urine Color Urine Clarity Urine pH Ur Specific Larue Urine Protein Urine Glucose (UA) Urine Ketones Urine Blood Urine Nitrite Urine Bilirubin Urine Urobilinogen (Auto) Ur Leukocyte Esterase Urine RBC Urine WBC Ur Squamous Epith Cells Urine Bacteria Urine Sperm Ur Random Creatinine 17 L U Random Total Protein < 6 Ur Random Sodium 40.8 Ur Random Potassium 11 L Ur Random Chloride 37.0 L Urine Opiates Screen Urine Fentanyl Screen Ur Barbiturates Screen U Amphetamin/Meth Scrn U Benzodiazepines Scrn U Cocaine Metab Screen U Marijuana (THC) Screen 08/19/25 08/20/25 08/20/25 21:24 01:08 04:30 WBC RBC Hgb Hct MCV MCH MCHC RDW Std Deviation Plt Count Neut % (Auto) Lymph % (Auto) Berg[place] % (Auto) Eos % (Auto) Baso % (Auto) Neut # (Auto) Lymph # (Auto) Berg[place] # (Auto) Eos # (Auto) Baso # (Auto) Immature Gran # (Auto) Absolute Nucleated RBC Immature Gran % Nucleated RBC % PT INR APTT Puncture Site Right Radial ABG pH 7.44 ABG pCO2 38 ABG pO2 107 D ABG HCO3 26 ABG O2 Saturation 99 H ABG Base Excess 2 FiO2 40 Sodium 128 L 129 L Potassium Chloride Carbon Dioxide Anion Gap BUN Creatinine Estim Creat Clear Calc eGFR BUN/Creatinine Ratio Glucose Calculated Osmolality Lactic Acid Calcium Corrected Calcium Phosphorus Magnesium Total Bilirubin AST ALT Alkaline Phosphatase Total Protein Albumin Globulin Albumin/Globulin Ratio Triglycerides Cholesterol LDL Cholesterol, Calc HDL Cholesterol Cholesterol/HDL Ratio Lipase Procalcitonin TSH Ur Collection Type Urine Color Urine Clarity Urine pH Ur Specific Larue Urine Protein Urine Glucose (UA) Urine Ketones Urine Blood Urine Nitrite Urine Bilirubin Urine Urobilinogen (Auto) Ur Leukocyte Esterase Urine RBC Urine WBC Ur Squamous Epith Cells Urine Bacteria Urine Sperm Ur Random Creatinine U Random Total Protein Ur Random Sodium Ur Random Potassium Ur Random Chloride Urine Opiates Screen Urine Fentanyl Screen Ur Barbiturates Screen U Amphetamin/Meth Scrn U Benzodiazepines Scrn U Cocaine Metab Screen U Marijuana (THC) Screen 08/20/25 08/20/25 04:48 10:20 WBC 8.2 D RBC 4.95 Hgb 15.2 Hct 43.4 MCV 88 MCH 30.7 MCHC 35.0 RDW Std Deviation 39.5 Plt Count 209 D Neut % (Auto) 76 Lymph % (Auto) 14 Berg[place] % (Auto) 8 Eos % (Auto) 1 Baso % (Auto) 1 Neut # (Auto) 6.3 Lymph # (Auto) 1.2 Bergen # (Auto) 0.7 Eos # (Auto) 0.1 Baso # (Auto) 0.1 Immature Gran # (Auto) 0.01 H Absolute Nucleated RBC 0.00 Immature Gran % 0 Nucleated RBC % 0 PT 11.7 INR 1.1 APTT 31.0 Puncture Site ABG pH ABG pCO2 ABG pO2 ABG HCO3 ABG O2 Saturation ABG Base Excess FiO2 Sodium 134 L 135 L Potassium 4.1 D Chloride 97 L Carbon Dioxide 25.7 Anion Gap 11 BUN 7 L Creatinine 0.9 Estim Creat Clear Calc 94.9 eGFR > 60 BUN/Creatinine Ratio 8 L Glucose 89 D Calculated Osmolality 265 L Lactic Acid Calcium 9.2 Corrected Calcium 9.3 Phosphorus 3.6 Magnesium 2.4 Total Bilirubin 1.1 AST 60 H ALT 18 Alkaline Phosphatase 79 Total Protein 6.4 Albumin 3.9 D Globulin 2.5 Albumin/Globulin Ratio 1.6 Triglycerides 64 Cholesterol 111 L LDL Cholesterol, Calc 45 HDL Cholesterol 53 Cholesterol/HDL Ratio 2.1 L Lipase Procalcitonin TSH 0.89 Ur Collection Type Urine Color Urine Clarity Urine pH Ur Specific Larue Urine Protein Urine Glucose (UA) Urine Ketones Urine Blood Urine Nitrite Urine Bilirubin Urine Urobilinogen (Auto) Ur Leukocyte Esterase Urine RBC Urine WBC Ur Squamous Epith Cells Urine Bacteria Urine Sperm Ur Random Creatinine U Random Total Protein Ur Random Sodium Ur Random Potassium Ur Random Chloride Urine Opiates Screen Urine Fentanyl Screen Ur Barbiturates Screen U Amphetamin/Meth Scrn U Benzodiazepines Scrn U Cocaine Metab Screen U Marijuana (THC) Screen ABG Interpretation ABG results: 08/19/25 08/20/25 19:30 04:30 ABG pH 7.43 7.44 ABG pCO2 34 38 ABG pO2 250 H 107 D ABG HCO3 23 26 ABG O2 Saturation 100 H 99 H ABG Base Excess -1 2 Quality Measures Quality Measures none Assessment & Plan Assessment Current Active Medications: Generic Name Dose Route Start Last Admin Trade Name Freq PRN Reason Stop Dose Admin Acetaminophen 650 mg 08/19/25 17:03 Acetaminophen 325 Mg Tablet PO 09/18/25 17:02 Q6H PRN Fever >101.5 or pain 1-3 Enoxaparin Sodium 40 mg 08/20/25 11:00 08/20/25 10:55 Enoxaparin Sod Inj 40 Mg/0.4 Ml Syringe SC 09/03/25 10:59 40 mg QDAY IAN Administration Ampicillin Sodium/Sulbactam 100 mls @ 200 mls/hr 08/19/25 18:00 08/20/25 05:19 Sodium 3 gm/ Sodium Chloride IV 08/26/25 17:59 200 mls/hr Q6HR IAN Administration Fentanyl Citrate 2,500 mcg in 250 mls @ 2.5 mls/hr 08/19/25 18:12 08/20/25 06:00 Sublimaze Inj 2,500 Mcg/250 Ml Bag IV 08/24/25 18:11 75 mcg/hr .Q24H PRN 7.5 mls/hr PER PROTOCOL Titration Protocol 25 MCG/HR Propofol 1,000 mg in 100 mls @ 2.395 mls/hr 08/19/25 18:12 08/20/25 06:55 Diprivan Ivpb IV 09/18/25 18:11 50 mcg/kg/min .Q24H PRN 23.95 mls/hr PER PROTOCOL Administration Protocol 5 MCG/KG/MIN Midazolam HCl 100 mg in 100 mls @ 1 mls/hr 08/19/25 18:12 08/20/25 06:00 Versed Pf Inj In Ns Premix IV 08/24/25 18:11 3 mg/hr .Q24H PRN 3 mls/hr PER PROTOCOL Titration Protocol 1 MG/HR Vancomycin/Sodium Chloride 200 mls @ 120 mls/hr 08/20/25 10:00 08/20/25 10:54 Vancomycin/Ns 1 Gm Ivpb IV 08/27/25 09:59 120 mls/hr BID@1000,2200 [facility] Administration Protocol Lactated Ringer's 1,000 mls @ 999 mls/hr 08/20/25 10:46 08/20/25 10:55 Lactated Ringers IV 08/20/25 11:46 999 mls/hr .Q1H1M ONE Administration Pantoprazole Sodium 40 mg 08/19/25 17:30 08/20/25 08:25 Pantoprazole Inj 40 Mg Vial IVP 09/18/25 17:29 40 mg QDAY IAN Administration Pharmacy Consult 1 each 08/19/25 19:15 08/20/25 10:55 Vancomycin Pharmacy To Dose 1 Each Each IV 09/18/25 19:14 Not Given QDAY IAN Plan 45-year-old male with no prior seizure history presents with status epilepticus and severe hyponatremia, requiring intubation and ICU admission for continuous monitoring and management. NEURO #Status epilepticus (new onset) #Chemical sedation New onset, multiple episodes, refractory to antiepileptics, requiring intubation. Likely metabolic etiology in the setting of severe hyponatremia (Na 122). DDx: substance-induced seizures vs post-traumatic epilepsy w/o detectable imaging changes vs autoimmune epilepsy ([employer] vasculitis or limbic encephalitis). Dx: - No structural cause identified. Head CT 08/19 negative for hemorrhage, mass effect, or midline shift. - Continue EEG monitoring has not shown ongoing seizure activity. Rx: - IV Midazolam 2mg Q30min PRN for breakthrough seizures. - IV Propofol infusion per sedation protocol. - Neuro checks q4HR. - Neurology actively following, appreciate ongoing recommendations. CARDIO #Hypertensive urgency / emergency (resolved) Patient was intubated and seen to have BP greater than 180/120 SBP and DBP (patient was normotensive upon admission). Etiology unclear at this time. DDx: acute ischemic stroke vs intracranial hemorrhage vs inadequate sedation/agitation while intubated vs acute kidney injury Dx: - TSH 0.89 wnl. No evidence of thyroid dysfunction. - 08/[address] negative for gross hemorrhage, mass effect, or midline shift. - Maintain appropriate sedation, continue ventilatory support. PULM #Intubated on volume control from sub-8 GCS Patient intubated and currently on mechanical ventilation (volume control mode). Etiology likely multifactorial in the setting of critical illness and sedation. Rx: - Continue intubation and mechanical ventilation. - Daily assessment for readiness to wean and spontanous breathing trials when clinically appropriate. - Monitor ABG and adjust ventilator settings accordingly. GI #Transaminitis Mild elevation in AST likely in the setting of rhabdomyolysis. No clinical evidence at present of intrinsic liver disease or biliary obstruction. Dx: AST 43 --> 60. CK of 4040. Rx: - Continue to trend CMP. - Monitor CK levels to follow rhabdomyolysis course. NEPHRO #Hyponatremia #Hypokalemia (resolved) #Hypochloremia Patient initially presented with severe hyponatremia (Na 122), rapidly corrected to 134 with fluid restriction. Urine appears very dilute. Patient has had more than 300 cc of urine per hour for the last 3 hours. DDx: Central diabetes insipidus vs SIADH vs intracranial pathology (trauma, stroke). Dx: - Urine electrolytes: uRandom sodium <10.0 L, uRandom potassium <10 L, uRandom chloride <20.0. - Head CT 08/20 to evaluate for cerebral edema due to concern for underlying central diabetes insipidus. CT head was found to be within normal limits. Rx: - Sodium checks q4HR - Most recent sodium is 141. Started on D5W to prevent overcorrection. - Desmopressin 1 mcg x1 and 2mcg x1 was given. Monitor response with sodium levels. - Urine osmolality pending. - Monitor strict I/Os. #Rhabdomyolysis CK 4040 (08/20). No CK available from arrival. Dx: - 08/20 AM labs showed CK of 4040. Rx: - Continue IV fluids for renal protection. - Monitor CK trend. - Monitor renal function (BUN/Cr, UOP). HEME #Leukocytosis (resolved) Admission WBC 16.1, afebrile, likely reactive ENDO #No active problems ID #Aspiration pneumonia Likely secondary to seizures. Dx: - CXR 08/20 showed significant right base pneumonia concerning for possible aspiration pneumonia Rx: - IV Unasyn 3 gram Q6H (08/19-) - IV vancomycin (08/19-) for MRSA coverage; MRSA nares pending, if negative, plan to discontinue vancomycin. - Reassess antibiotic regimen once blood culture results are available. - Monitor WBC. - Clinical monitoring: fever, respiratory secretions, oxygenations. MSK #No active problems SKIN #No active problems Health Maintenance Disposition: Requires ICU management due to intubation and refractory seizures DVT prophylaxis: Lovenox GI prophylaxis: IV Protonix 40 mg qD Diet: NPO Kinney: Present Lines: Peripheral IV Antibiotics: IV vancomycin and Unasyn CODE STATUS: FULL Patient care was discussed with my senior resident, Dr. Lezama and attending Dr. Salazar. Babak Ramos, DO Internal Medicine, PGY-1
[2025-08-20 11:27] LABS: Creatine Kinase 4040 U/L (34-171)
--- NOTE | 2025-08-20 11:31 | PC.SS ---
Patient admitted to ICU from [facility]. Law [employer] Staff at bedside reported that prior to admission patient was Ambulatory, on Room air and able to complete ADL's independently. At baseline patient is verbal and able to make own medical decisions. Once patient is medically cleared patient will return to the [facility]. Medical Decisions will be made by [facility] Nursing Staff. Law Enforcement will provide transportation for patient to return to nursing home [place].
[2025-08-20] MEDS: PROPOFOL 1,000 MG IVPB 1,000 MG/100 ML VIAL 19.16 MG IV ×3 (11:53→22:01)
[2025-08-20 12:03] LABS: Chloride,Urine Random < 20.0 mMol/L (55.0-125.0); Potassium,Urine Random < 10 mMol/L (12-62); Sodium,Urine Random < 10.0 mMol/L (20.0-110.0)
--- NOTE | 2025-08-20 13:00 | XR_ITS ---
Examination: CT brain head without contrast. 2-D sagittal coronal reconstructions Date and time of exam: August 20 2025, 1312 hours, comparison August 19, 2025 INDICATIONS: New onset seizures today CTDI: vol (mGy):54.1 DLP: (mGycm):9 Technique: Multiple CT axial sections of the brain have been obtained, 5 mm slice thickness. Contrast has not been administered. 2-D sagittal, coronal reconstructions have been obtained Low dose protocols were performed. One or more of the following dose reduction techniques were used; automated exposure control, adjustment of the mA and/or KV according to patient size, use of iterative reconstruction technique. Findings: No significant ventricular enlargement. Intra-axial or extra-axial hemorrhage density is not seen. No mass effect or midline shift Basal cisterns are not remarkable. Fourth ventricle is midline. Cranial vault intact. Impression: No interval acute hemorrhage, mass effect or midline shift
[2025-08-20] MEDS: DESMOPRESSIN ACETATE 4 MCG/ML VIAL 1 MCG IV (13:38)
--- NOTE | 2025-08-20 13:57 | ESPR_ITS ---
Documentation for date of: 08/20/25 Subjective Subjective Interval history: Patient examined at beside. He remains sedated and intubated on fentanyl and propofol drip. Per nursing, patient had three more episodes of seizure like activity and was administered push midazolam 2mg x1 this morning. Was undergoing EEG at bedside. Initial CT head was negative for any hemorrhage. There was an officer at bedside who stated that patient has been in [facility] longterm for about a month. He has not known to have any seizures in the past. ICU team is planing to pause EEG in the afternoon to repat head imaging. Rule out possible cerebral edema. Seizure most likely induced by electrolyte abnormalities. Monitor sodium closely, no indication for resuming Keppra. Exam Vital Signs Temp Pulse Resp BP Pulse Ox O2 Del Method O2 Flow Rate 95.9 F L 77 16 81/59 L 100 Mechanical Ventilation 15 08/20/25 12:00 08/20/25 12:00 08/20/25 12:00 08/20/25 12:00 08/20/25 12:00 08/20/25 12:00 08/19/25 17:22 FiO2 30 08/20/25 12:00 Narrative Exam General: Middle ages male, intubated, sedated on mechanical ventilation HEENT: NCAT, No JVD noted. EEG cap on Cardiovascular: Normal S1 and S2. Regular rate and rhythm. Respiratory: no appreciated wheezing or crackles, mechanical breath sounds. Abdomen: Soft, not distended, normal bowel sounds. Skin: Warm to touch, dry, no rashes noted, various tattoos Musculoskeletal: No gross injuries, No pitting edema Neuro: unable to asses Objective Labs 08/21/25 04:06 08/21/25 04:06 Labs: Laboratory Results - last 24 hr 08/19/25 08/19/25 08/19/25 14:55 15:00 17:13 WBC 16.1 H RBC 4.65 Hgb 14.1 Hct 40.5 L MCV 87 MCH 30.3 MCHC 34.8 RDW Std Deviation 38.2 Plt Count 263 Neut % (Auto) 87 H Lymph % (Auto) 5 L [place] % (Auto) 6 Eos % (Auto) 0 Baso % (Auto) 0 Neut # (Auto) 14.0 H Lymph # (Auto) 0.9 L [place] # (Auto) 1.0 H Eos # (Auto) 0.0 Baso # (Auto) 0.0 Immature Gran # (Auto) 0.14 H Absolute Nucleated RBC 0.00 Immature Gran % 1 H Nucleated RBC % 0 PT INR APTT Puncture Site ABG pH ABG pCO2 ABG pO2 ABG HCO3 ABG O2 Saturation ABG Base Excess FiO2 Sodium 122 L 123 L Potassium 3.2 L Chloride 84 L Carbon Dioxide 21.4 Anion Gap 17 H BUN 10 Creatinine 1.1 Estim Creat Clear Calc Not Performed. eGFR > 60 BUN/Creatinine Ratio 9 L Glucose 192 H Calculated Osmolality 249 L Lactic Acid Calcium 8.9 Corrected Calcium 8.9 Phosphorus Magnesium 1.9 Total Bilirubin 1.3 H AST 43 H ALT 16 Alkaline Phosphatase 93 Total Creatine Kinase Total Protein 7.0 Albumin 4.4 Globulin 2.6 Albumin/Globulin Ratio 1.7 Triglycerides Cholesterol LDL Cholesterol, Calc HDL Cholesterol Cholesterol/HDL Ratio Lipase 21 Procalcitonin 0.16 TSH Ur Collection Type Clean Catch Urine Color Colorless A Urine Clarity Clear Urine pH 7.0 Ur Specific [place] 1.002 Urine Protein Negative Urine Glucose (UA) Negative Urine Ketones Negative Urine Blood 1+ A Urine Nitrite Negative Urine Bilirubin Negative Urine Urobilinogen (Auto) Negative Ur Leukocyte Esterase Negative Urine RBC < 1 Urine WBC < 1 Ur Squamous Epith Cells < 1 Urine Bacteria None Urine Sperm Present A Ur Random Creatinine U Random Total Protein Ur Random Sodium Ur Random Potassium Ur Random Chloride Urine Opiates Screen Negative Urine Fentanyl Screen Negative Ur Barbiturates Screen Negative U Amphetamin/Meth Scrn Negative U Benzodiazepines Scrn Negative U Cocaine Metab Screen Negative U Marijuana (THC) Screen Negative 08/19/25 08/19/25 08/19/25 18:56 19:00 19:30 WBC RBC Hgb Hct MCV MCH MCHC RDW Std Deviation Plt Count Neut % (Auto) Lymph % (Auto) [place] % (Auto) Eos % (Auto) Baso % (Auto) Neut # (Auto) Lymph # (Auto) [place] # (Auto) Eos # (Auto) Baso # (Auto) Immature Gran # (Auto) Absolute Nucleated RBC Immature Gran % Nucleated RBC % PT INR APTT Puncture Site Right Radial ABG pH 7.43 ABG pCO2 34 ABG pO2 250 H ABG HCO3 23 ABG O2 Saturation 100 H ABG Base Excess -1 FiO2 100 Sodium Potassium Chloride Carbon Dioxide Anion Gap BUN Creatinine Estim Creat Clear Calc eGFR BUN/Creatinine Ratio Glucose Calculated Osmolality Lactic Acid 1.8 Calcium Corrected Calcium Phosphorus Magnesium Total Bilirubin AST ALT Alkaline Phosphatase Total Creatine Kinase Total Protein Albumin Globulin Albumin/Globulin Ratio Triglycerides Cholesterol LDL Cholesterol, Calc HDL Cholesterol Cholesterol/HDL Ratio Lipase Procalcitonin TSH Ur Collection Type Urine Color Urine Clarity Urine pH Ur Specific [place] Urine Protein Urine Glucose (UA) Urine Ketones Urine Blood Urine Nitrite Urine Bilirubin Urine Urobilinogen (Auto) Ur Leukocyte Esterase Urine RBC Urine WBC Ur Squamous Epith Cells Urine Bacteria Urine Sperm Ur Random Creatinine 17 L U Random Total Protein < 6 Ur Random Sodium 40.8 Ur Random Potassium 11 L Ur Random Chloride 37.0 L Urine Opiates Screen Urine Fentanyl Screen Ur Barbiturates Screen U Amphetamin/Meth Scrn U Benzodiazepines Scrn U Cocaine Metab Screen U Marijuana (THC) Screen 08/19/25 08/20/25 08/20/25 21:24 01:08 04:30 WBC RBC Hgb Hct MCV MCH MCHC RDW Std Deviation Plt Count Neut % (Auto) Lymph % (Auto) [place] % (Auto) Eos % (Auto) Baso % (Auto) Neut # (Auto) Lymph # (Auto) [place] # (Auto) Eos # (Auto) Baso # (Auto) Immature Gran # (Auto) Absolute Nucleated RBC Immature Gran % Nucleated RBC % PT INR APTT Puncture Site Right Radial ABG pH 7.44 ABG pCO2 38 ABG pO2 107 D ABG HCO3 26 ABG O2 Saturation 99 H ABG Base Excess 2 FiO2 40 Sodium 128 L 129 L Potassium Chloride Carbon Dioxide Anion Gap BUN Creatinine Estim Creat Clear Calc eGFR BUN/Creatinine Ratio Glucose Calculated Osmolality Lactic Acid Calcium Corrected Calcium Phosphorus Magnesium Total Bilirubin AST ALT Alkaline Phosphatase Total Creatine Kinase Total Protein Albumin Globulin Albumin/Globulin Ratio Triglycerides Cholesterol LDL Cholesterol, Calc HDL Cholesterol Cholesterol/HDL Ratio Lipase Procalcitonin TSH Ur Collection Type Urine Color Urine Clarity Urine pH Ur Specific [place] Urine Protein Urine Glucose (UA) Urine Ketones Urine Blood Urine Nitrite Urine Bilirubin Urine Urobilinogen (Auto) Ur Leukocyte Esterase Urine RBC Urine WBC Ur Squamous Epith Cells Urine Bacteria Urine Sperm Ur Random Creatinine U Random Total Protein Ur Random Sodium Ur Random Potassium Ur Random Chloride Urine Opiates Screen Urine Fentanyl Screen Ur Barbiturates Screen U Amphetamin/Meth Scrn U Benzodiazepines Scrn U Cocaine Metab Screen U Marijuana (THC) Screen 08/20/25 08/20/25 08/20/25 04:48 10:20 11:20 WBC 8.2 D RBC 4.95 Hgb 15.2 Hct 43.4 MCV 88 MCH 30.7 MCHC 35.0 RDW Std Deviation 39.5 Plt Count 209 D Neut % (Auto) 76 Lymph % (Auto) 14 [place] % (Auto) 8 Eos % (Auto) 1 Baso % (Auto) 1 Neut # (Auto) 6.3 Lymph # (Auto) 1.2 [place] # (Auto) 0.7 Eos # (Auto) 0.1 Baso # (Auto) 0.1 Immature Gran # (Auto) 0.01 H Absolute Nucleated RBC 0.00 Immature Gran % 0 Nucleated RBC % 0 PT 11.7 INR 1.1 APTT 31.0 Puncture Site ABG pH ABG pCO2 ABG pO2 ABG HCO3 ABG O2 Saturation ABG Base Excess FiO2 Sodium 134 L 135 L Potassium 4.1 D Chloride 97 L Carbon Dioxide 25.7 Anion Gap 11 BUN 7 L Creatinine 0.9 Estim Creat Clear Calc 94.9 eGFR > 60 BUN/Creatinine Ratio 8 L Glucose 89 D Calculated Osmolality 265 L Lactic Acid Calcium 9.2 Corrected Calcium 9.3 Phosphorus 3.6 Magnesium 2.4 Total Bilirubin 1.1 AST 60 H ALT 18 Alkaline Phosphatase 79 Total Creatine Kinase 4040 H D Total Protein 6.4 Albumin 3.9 D Globulin 2.5 Albumin/Globulin Ratio 1.6 Triglycerides 64 Cholesterol 111 L LDL Cholesterol, Calc 45 HDL Cholesterol 53 Cholesterol/HDL Ratio 2.1 L Lipase Procalcitonin TSH 0.89 Ur Collection Type Urine Color Urine Clarity Urine pH Ur Specific [place] Urine Protein Urine Glucose (UA) Urine Ketones Urine Blood Urine Nitrite Urine Bilirubin Urine Urobilinogen (Auto) Ur Leukocyte Esterase Urine RBC Urine WBC Ur Squamous Epith Cells Urine Bacteria Urine Sperm Ur Random Creatinine U Random Total Protein Ur Random Sodium < 10.0 L Ur Random Potassium < 10 L Ur Random Chloride < 20.0 L Urine Opiates Screen Urine Fentanyl Screen Ur Barbiturates Screen U Amphetamin/Meth Scrn U Benzodiazepines Scrn U Cocaine Metab Screen U Marijuana (THC) Screen ABG Interpretation ABG results: 08/19/25 08/20/25 19:30 04:30 ABG pH 7.43 7.44 ABG pCO2 34 38 ABG pO2 250 H 107 D ABG HCO3 23 26 ABG O2 Saturation 100 H 99 H ABG Base Excess -1 2 Quality Measures Quality Measures none Assessment & Plan Assessment Current Active Medications: Generic Name Dose Route Start Last Admin Trade Name Delmarq PRN Reason Stop Dose Admin Acetaminophen 650 mg 08/19/25 17:03 Acetaminophen 325 Mg Tablet PO 09/18/25 17:02 Q6H PRN Fever >101.5 or pain 1-3 Enoxaparin Sodium 40 mg 08/20/25 11:00 08/20/25 10:55 Enoxaparin Sod Inj 40 Mg/0.4 Ml Syringe SC 09/03/25 10:59 40 mg QDAY IAN Administration Ampicillin Sodium/Sulbactam 100 mls @ 200 mls/hr 08/19/25 18:00 08/20/25 11:54 Sodium 3 gm/ Sodium Chloride IV 08/26/25 17:59 200 mls/hr Q6HR IAN Administration Fentanyl Citrate 2,500 mcg in 250 mls @ 2.5 mls/hr 08/19/25 18:12 08/20/25 06:00 Sublimaze Inj 2,500 Mcg/250 Ml Bag IV 08/24/25 18:11 75 mcg/hr .Q24H PRN 7.5 mls/hr PER PROTOCOL Titration Protocol 25 MCG/HR Propofol 1,000 mg in 100 mls @ 2.395 mls/hr 08/19/25 18:12 08/20/25 11:53 Diprivan Ivpb IV 09/18/25 18:11 50 mcg/kg/min .Q24H PRN 23.95 mls/hr PER PROTOCOL Administration Protocol 5 MCG/KG/MIN Midazolam HCl 100 mg in 100 mls @ 1 mls/hr 08/19/25 18:12 08/20/25 06:00 Versed Pf Inj In Ns Premix IV 08/24/25 18:11 3 mg/hr .Q24H PRN 3 mls/hr PER PROTOCOL Titration Protocol 1 MG/HR Vancomycin/Sodium Chloride 200 mls @ 120 mls/hr 08/20/25 10:00 08/20/25 10:54 Vancomycin/Ns 1 Gm Ivpb IV 08/27/25 09:59 120 mls/hr BID@1000,2200 IAN Administration Protocol Lactated Ringer's 1,000 mls @ 999 mls/hr 08/20/25 12:58 08/20/25 13:38 Lactated Ringers IV 08/20/25 13:58 999 mls/hr .Q1H1M ONE Administration Pantoprazole Sodium 40 mg 08/19/25 17:30 08/20/25 08:25 Pantoprazole Inj 40 Mg Vial IVP 09/18/25 17:29 40 mg QDAY [facility] Administration Pharmacy Consult 1 each 08/19/25 19:15 08/20/25 10:55 Vancomycin Pharmacy To Dose 1 Each Each IV 09/18/25 19:14 Not Given QDAY [facility] Plan 45 year old male with reported PMH of CVA (per prior charts), unspecified psychiatric illness, and chronic homelessness presents to the ED BIBA from [facility] for evaluation of seizures. In the ED, patient was given 1 L NS bolus, midazolam 2 mg x 1, potassium chloride 10 mEq x 1, levetiracetam 2000 mg x 1 and started on NS fluid infusion @ 100 cc/hr, midazolam 2 mg prn. Due to concern regarding patient's ability to protect his airway, he was intubated. Patient was admitted to the ICU for the work-up and management of multiple seizure episodes refractory to antiepileptics and requiring intubation in the setting of euvolemic, hypoosmolar hyponatremia. #New onset tonic-clonic seizures #Hypoosmolar hyponatremia Patient's new onset seizures likely due to metabolic disturbances. Upon arrival in the ED sodium at 122. He was witnessed to have 2 episodes of seizure at the longterm. These episodes were terminated with benzodiazepine. However seizures reoccurred while in the ED after loading dose of Keppra. Patient did not regain consciousness in between episodes and required intubation for airway protection. Patient was started on 3% hypertonic saline and overnight sodium corrected to 134. Repeat CT head from this afternoon negative for any interval acute hemorrhage, mass effect or midline shift. No ventricular enlargement. -propfol drip - continuous EEG monitoring -Neuro checks q4HR -sodium checks q4hr -hold off on starting antiepileptic medication #Intubated and sedated #Transaminitis #Aspiration pneumonia #Hypokalemia #Hypochloremia #Hx psychiatric illness Primary care team to manage above conditions and ongoing care needs. The patient's management plan was discussed with my attending physician Dr. Case. Kayla Rodriguez, PGY-2 Attending Provider Attestation/Addendum I personally have seen and examined the patient at the bedside and I agree with resident's findings, assessment and plan of care. His presentation is most likely related to metabolic encephalopathy patient has not had any electrographic seizures in the EEG. His weakness to clinical seizure could have been related to hyponatremia. Will continue to monitor his electrolyte levels and treat accordingly. He does not need to be on any antiepileptic therapy.
[2025-08-20 14:01] LABS: Sodium 141 mMol/L (136-145)
[2025-08-20] MEDS: DEXTROSE 5%-WATER 1,000 ML 100 ML IV (14:38)
--- NOTE | 2025-08-20 14:56 | ESPR_ITS ---
Documentation for date of: 08/20/25 Subjective Subjective Interval history: This is a 45yo M admitted to the ICU for status epilepticus. Pt has no known h/o sz disorder. He [facility] the [facility] from [facility] for 3 sz and did not return to baseline. Had ongoing sz in ER and was intubated for airway protection and versed gtt with propofol gtt. He was loaded on keppra in the ER. On arrival he was also found to have a Na of 122. Overnight he was placed on fluid restrict and was noted to have a brisk UOP with almost 5lts out. He is afebrile. his sedation was held this morning and he developed some spasticity with shaking tremors. He was given 2 mg midazolam for this and his propofol was restarted. Throughout the day he has continued to have a brisk urinary output of 200 to 400 cc an hour. Critical Care Note Critical care time (min.): 45 Exam Vital Signs Temp Pulse Resp BP Pulse Ox O2 Del Method O2 Flow Rate 95.9 F L 78 16 88/59 L 99 Mechanical Ventilation 15 08/20/25 12:00 08/20/25 14:00 08/20/25 12:00 08/20/25 14:00 08/20/25 14:00 08/20/25 12:00 08/19/25 17:22 FiO2 30 08/20/25 12:00 Narrative Exam General-intubated, sedated, normal body habitus HEENT-normocephalic, atraumatic, sclera icteric, pupils are small, ET tube and OG tube in place Chest-lungs clear to auscultation bilaterally, heart rate regular, no bradycardia murmurs auscultated on exam, no apparent pain on palpation of the chest wall Abdomen-soft, nontender, sounds present, no rebound or guarding Extremities-no edema of the lower extremities, pulses palpable, no clubbing or mottling Vent AC/VC Drips Versed Propofol Fentanyl Physical Exam Completion Physical Exam Complete?: Yes Objective - Technical Service Representative Labs 08/20/25 04:48 08/20/25 12:56 Labs: Laboratory Results - last 24 hr 08/19/25 08/19/25 08/19/25 14:55 15:00 17:13 WBC 16.1 H RBC 4.65 Hgb 14.1 Hct 40.5 L MCV 87 MCH 30.3 MCHC 34.8 RDW Std Deviation 38.2 Plt Count 263 Neut % (Auto) 87 H Lymph % (Auto) 5 L [place] % (Auto) 6 Eos % (Auto) 0 Baso % (Auto) 0 Neut # (Auto) 14.0 H Lymph # (Auto) 0.9 L [place] # (Auto) 1.0 H Eos # (Auto) 0.0 Baso # (Auto) 0.0 Immature Gran # (Auto) 0.14 H Absolute Nucleated RBC 0.00 Immature Gran % 1 H Nucleated RBC % 0 PT INR APTT Puncture Site ABG pH ABG pCO2 ABG pO2 ABG HCO3 ABG O2 Saturation ABG Base Excess FiO2 Sodium 122 L 123 L Potassium 3.2 L Chloride 84 L Carbon Dioxide 21.4 Anion Gap 17 H BUN 10 Creatinine 1.1 Estim Creat Clear Calc Not Performed. eGFR > 60 BUN/Creatinine Ratio 9 L Glucose 192 H Calculated Osmolality 249 L Lactic Acid Calcium 8.9 Corrected Calcium 8.9 Phosphorus Magnesium 1.9 Total Bilirubin 1.3 H AST 43 H ALT 16 Alkaline Phosphatase 93 Total Creatine Kinase Total Protein 7.0 Albumin 4.4 Globulin 2.6 Albumin/Globulin Ratio 1.7 Triglycerides Cholesterol LDL Cholesterol, Calc HDL Cholesterol Cholesterol/HDL Ratio Lipase 21 Procalcitonin 0.16 TSH Ur Collection Type Clean Catch Urine Color Colorless A Urine Clarity Clear Urine pH 7.0 Ur Specific [place] 1.002 Urine Protein Negative Urine Glucose (UA) Negative Urine Ketones Negative Urine Blood 1+ A Urine Nitrite Negative Urine Bilirubin Negative Urine Urobilinogen (Auto) Negative Ur Leukocyte Esterase Negative Urine RBC < 1 Urine WBC < 1 Ur Squamous Epith Cells < 1 Urine Bacteria None Urine Sperm Present A Ur Random Creatinine U Random Total Protein Ur Random Sodium Ur Random Potassium Ur Random Chloride Urine Opiates Screen Negative Urine Fentanyl Screen Negative Ur Barbiturates Screen Negative U Amphetamin/Meth Scrn Negative U Benzodiazepines Scrn Negative U Cocaine Metab Screen Negative U Marijuana (THC) Screen Negative 08/19/25 08/19/25 08/19/25 18:56 19:00 19:30 WBC RBC Hgb Hct MCV MCH MCHC RDW Std Deviation Plt Count Neut % (Auto) Lymph % (Auto) [place] % (Auto) Eos % (Auto) Baso % (Auto) Neut # (Auto) Lymph # (Auto) [place] # (Auto) Eos # (Auto) Baso # (Auto) Immature Gran # (Auto) Absolute Nucleated RBC Immature Gran % Nucleated RBC % PT INR APTT Puncture Site Right Radial ABG pH 7.43 ABG pCO2 34 ABG pO2 250 H ABG HCO3 23 ABG O2 Saturation 100 H ABG Base Excess -1 FiO2 100 Sodium Potassium Chloride Carbon Dioxide Anion Gap BUN Creatinine Estim Creat Clear Calc eGFR BUN/Creatinine Ratio Glucose Calculated Osmolality Lactic Acid 1.8 Calcium Corrected Calcium Phosphorus Magnesium Total Bilirubin AST ALT Alkaline Phosphatase Total Creatine Kinase Total Protein Albumin Globulin Albumin/Globulin Ratio Triglycerides Cholesterol LDL Cholesterol, Calc HDL Cholesterol Cholesterol/HDL Ratio Lipase Procalcitonin TSH Ur Collection Type Urine Color Urine Clarity Urine pH Ur Specific [place] Urine Protein Urine Glucose (UA) Urine Ketones Urine Blood Urine Nitrite Urine Bilirubin Urine Urobilinogen (Auto) Ur Leukocyte Esterase Urine RBC Urine WBC Ur Squamous Epith Cells Urine Bacteria Urine Sperm Ur Random Creatinine 17 L U Random Total Protein < 6 Ur Random Sodium 40.8 Ur Random Potassium 11 L Ur Random Chloride 37.0 L Urine Opiates Screen Urine Fentanyl Screen Ur Barbiturates Screen U Amphetamin/Meth Scrn U Benzodiazepines Scrn U Cocaine Metab Screen U Marijuana (THC) Screen 08/19/25 08/20/25 08/20/25 21:24 01:08 04:30 WBC RBC Hgb Hct MCV MCH MCHC RDW Std Deviation Plt Count Neut % (Auto) Lymph % (Auto) [place] % (Auto) Eos % (Auto) Baso % (Auto) Neut # (Auto) Lymph # (Auto) [place] # (Auto) Eos # (Auto) Baso # (Auto) Immature Gran # (Auto) Absolute Nucleated RBC Immature Gran % Nucleated RBC % PT INR APTT Puncture Site Right Radial ABG pH 7.44 ABG pCO2 38 ABG pO2 107 D ABG HCO3 26 ABG O2 Saturation 99 H ABG Base Excess 2 FiO2 40 Sodium 128 L 129 L Potassium Chloride Carbon Dioxide Anion Gap BUN Creatinine Estim Creat Clear Calc eGFR BUN/Creatinine Ratio Glucose Calculated Osmolality Lactic Acid Calcium Corrected Calcium Phosphorus Magnesium Total Bilirubin AST ALT Alkaline Phosphatase Total Creatine Kinase Total Protein Albumin Globulin Albumin/Globulin Ratio Triglycerides Cholesterol LDL Cholesterol, Calc HDL Cholesterol Cholesterol/HDL Ratio Lipase Procalcitonin TSH Ur Collection Type Urine Color Urine Clarity Urine pH Ur Specific [place] Urine Protein Urine Glucose (UA) Urine Ketones Urine Blood Urine Nitrite Urine Bilirubin Urine Urobilinogen (Auto) Ur Leukocyte Esterase Urine RBC Urine WBC Ur Squamous Epith Cells Urine Bacteria Urine Sperm Ur Random Creatinine U Random Total Protein Ur Random Sodium Ur Random Potassium Ur Random Chloride Urine Opiates Screen Urine Fentanyl Screen Ur Barbiturates Screen U Amphetamin/Meth Scrn U Benzodiazepines Scrn U Cocaine Metab Screen U Marijuana (THC) Screen 08/20/25 08/20/25 08/20/25 04:48 10:20 11:20 WBC 8.2 D RBC 4.95 Hgb 15.2 Hct 43.4 MCV 88 MCH 30.7 MCHC 35.0 RDW Std Deviation 39.5 Plt Count 209 D Neut % (Auto) 76 Lymph % (Auto) 14 [place] % (Auto) 8 Eos % (Auto) 1 Baso % (Auto) 1 Neut # (Auto) 6.3 Lymph # (Auto) 1.2 [place] # (Auto) 0.7 Eos # (Auto) 0.1 Baso # (Auto) 0.1 Immature Gran # (Auto) 0.01 H Absolute Nucleated RBC 0.00 Immature Gran % 0 Nucleated RBC % 0 PT 11.7 INR 1.1 APTT 31.0 Puncture Site ABG pH ABG pCO2 ABG pO2 ABG HCO3 ABG O2 Saturation ABG Base Excess FiO2 Sodium 134 L 135 L Potassium 4.1 D Chloride 97 L Carbon Dioxide 25.7 Anion Gap 11 BUN 7 L Creatinine 0.9 Estim Creat Clear Calc 94.9 eGFR > 60 BUN/Creatinine Ratio 8 L Glucose 89 D Calculated Osmolality 265 L Lactic Acid Calcium 9.2 Corrected Calcium 9.3 Phosphorus 3.6 Magnesium 2.4 Total Bilirubin 1.1 AST 60 H ALT 18 Alkaline Phosphatase 79 Total Creatine Kinase 4040 H D Total Protein 6.4 Albumin 3.9 D Globulin 2.5 Albumin/Globulin Ratio 1.6 Triglycerides 64 Cholesterol 111 L LDL Cholesterol, Calc 45 HDL Cholesterol 53 Cholesterol/HDL Ratio 2.1 L Lipase Procalcitonin TSH 0.89 Ur Collection Type Urine Color Urine Clarity Urine pH Ur Specific [place] Urine Protein Urine Glucose (UA) Urine Ketones Urine Blood Urine Nitrite Urine Bilirubin Urine Urobilinogen (Auto) Ur Leukocyte Esterase Urine RBC Urine WBC Ur Squamous Epith Cells Urine Bacteria Urine Sperm Ur Random Creatinine U Random Total Protein Ur Random Sodium < 10.0 L Ur Random Potassium < 10 L Ur Random Chloride < 20.0 L Urine Opiates Screen Urine Fentanyl Screen Ur Barbiturates Screen U Amphetamin/Meth Scrn U Benzodiazepines Scrn U Cocaine Metab Screen U Marijuana (THC) Screen 08/20/25 12:56 WBC RBC Hgb Hct MCV MCH MCHC RDW Std Deviation Plt Count Neut % (Auto) Lymph % (Auto) [place] % (Auto) Eos % (Auto) Baso % (Auto) Neut # (Auto) Lymph # (Auto) [place] # (Auto) Eos # (Auto) Baso # (Auto) Immature Gran # (Auto) Absolute Nucleated RBC Immature Gran % Nucleated RBC % PT INR APTT Puncture Site ABG pH ABG pCO2 ABG pO2 ABG HCO3 ABG O2 Saturation ABG Base Excess FiO2 Sodium 141 Potassium Chloride Carbon Dioxide Anion Gap BUN Creatinine Estim Creat Clear Calc eGFR BUN/Creatinine Ratio Glucose Calculated Osmolality Lactic Acid Calcium Corrected Calcium Phosphorus Magnesium Total Bilirubin AST ALT Alkaline Phosphatase Total Creatine Kinase Total Protein Albumin Globulin Albumin/Globulin Ratio Triglycerides Cholesterol LDL Cholesterol, Calc HDL Cholesterol Cholesterol/HDL Ratio Lipase Procalcitonin TSH Ur Collection Type Urine Color Urine Clarity Urine pH Ur Specific [place] Urine Protein Urine Glucose (UA) Urine Ketones Urine Blood Urine Nitrite Urine Bilirubin Urine Urobilinogen (Auto) Ur Leukocyte Esterase Urine RBC Urine WBC Ur Squamous Epith Cells Urine Bacteria Urine Sperm Ur Random Creatinine U Random Total Protein Ur Random Sodium Ur Random Potassium Ur Random Chloride Urine Opiates Screen Urine Fentanyl Screen Ur Barbiturates Screen U Amphetamin/Meth Scrn U Benzodiazepines Scrn U Cocaine Metab Screen U Marijuana (THC) Screen Assessment & Plan Additional Plan Additional Plan: In summary this is a 45-year-old male admitted to the ICU for status epilepticus a/p [employer] Status epilepticus-patient was intubated, sedated and started on a midazolam drip at 3 mg an hour as well as propofol at 50 and given Keppra. He has an EEG in place. Neurology has been consulted. CV Stable Resp Acute respiratory failure-patient is currently intubated and on mechanical ventilation, follow-up chest x-ray and ABG Renal Hyponatremia-patient sodium corrected quite rapidly. Has had a brisk urinary output. Urine appears very dilute. Will check urine osmole's as well as urine lites, has had more than 300 cc of urine out per hour for the last 3 hours. Last sodium is up to 141. he will be started on D5W. He was given DDAVP with suspicion of underlying DI. A head CT was obtained to look for any cerebral edema and was found to be within normal limits.\ Rhabdomyolysis-patient CK is 4000 this morning, unknown what it was on arrival. He has been started on IV fluids GI Transaminitis-mild elevation in AST in the setting of rhabdo GI prophylaxis-PPI Endo Stable Heme Leukocytosis-resolved DVT prophylaxis-Lovenox ID Aspiration-on antibiotics case d/w ICU team labs, imaging, records reviewed ~45ccmin required for eval, exam, review, intervention, discussion and formulation of POC for this critically ill pt with status epilepticus Provider Notation Provider Notation: Although this document has been carefully reviewed, there may still be some phonetic and other typographical errors. These errors are purely grammatical due to imperfections in the software program and should not be construed in any way to compromise the substance of the patient's medical care during this visit. Thank you for the opportunity and privilege in assisting you with this patient's care and management.
[2025-08-20 15:34] LABS: Hepatitis A Antibody IgM Non Reactive (Non React); Hepatitis B Core Antibody IgM Non Reactive (Non React); Hepatitis B Surface Antigen Non Reactive (Non React); Hepatitis C Antibody Non Reactive (Non React)
[2025-08-20 17:08] LABS: Sodium 142 mMol/L (136-145)
[2025-08-20] MEDS: DEXTROSE 5%-WATER 1,000 ML 125 ML IV (17:26)
[2025-08-20] MEDS: DESMOPRESSIN ACETATE 4 MCG/ML VIAL 2 MCG IV (17:26)
[2025-08-20] MEDS: levETIRAcetam INJ 100 MG/ML VIAL 5ML 1000 MG IVP (21:12)
[2025-08-20 21:33] LABS: Sodium 135 mMol/L (136-145)
[2025-08-21] VITALS (27 sets, daily range): BP systolic 100–131; BP diastolic 65–85; PULSE 73–110; RESP 14–97; TEMP 36.3–37.9; O2SAT 94–100; BMI 26.0
[2025-08-21] MEDS: AMPICILLIN/SULBAC INJ 3 GM in SODIUM CHLORIDE 0.9% (POP) 100 ML IV ×5 (00:52→23:57)
[2025-08-21] MEDS: DEXTROSE 50%-WATER INJ 50 ML SYRINGE 25 ML IVP (01:03)
[2025-08-21 01:58] LABS: Sodium 137 mMol/L (136-145)
[2025-08-21 04:57] LABS: Base Excess 1 (-3-3); HCO3 25 mEq/L (20-26); Inspired Oxygen, FIO2 30 %; O2 Saturation 96 % (91-98); PCO2 37 mmHg (32.0-48.0); PO2 72 mmHg (83-108); pH, Arterial 7.44 (7.35-7.45)
[2025-08-21 04:59] LABS: Allen Test Performed/OK; Puncture Site Right Radial
[2025-08-21 05:21] LABS: Basophils # (Auto) 0.0 Thou/mm3 (0.0-0.2); Basophils % (Auto) 0 % (0-2.5); Eosinophils # (Auto) 0.1 Thou/mm3 (0.0-0.5); Eosinophils % (Auto) 1 % (0-10); Hematocrit 43.6 % (41.0-53.0); Hemoglobin 14.5 g/dL (13.5-16.0); Immature Granulocytes Auto 0.03 Thou/mm3 (0.00-0.00); Lymphocytes # (Auto) 0.9 Thou/mm3 (1.0-4.8); Lymphocytes % (Auto) 8 % (10-50); Mean Corpuscular HGB Conc 33.3 g/dl (31.0-37.0); Mean Corpuscular Hemoglobin 30.2 pg (25.0-35.0); Mean Corpuscular Volume 91 fL (80-100); Monocytes # (Auto) 1.2 Thou/mm3 (0.0-0.8); Monocytes % (Auto) 11 % (0-12); Neutrophils # (Auto) 8.9 Thou/mm3 (1.8-7.7); Neutrophils % (Auto) 80 % (37-80); Nucleated Red Blood Cell # 0.00 Thou/mm3 (0.00-0.00); Nucleated Red Blood Cell % 0 /100 WBC (0); Platelet Count 158 Thou/mm3 (140-440); RDW Standard Deviation 42.9 fL (35.1-43.9); Red Blood Count 4.80 Miln/mm3 (4.50-5.90); White Blood Count 11.1 Thou/mm3 (3.8-10.6)
[2025-08-21] MEDS: DEXTROSE 50%-WATER INJ 50 ML SYRINGE IVP (05:28)
[2025-08-21 06:28] LABS: Alanine Aminotransferase 18 U/L (10-49); Albumin, Serum 3.6 gm/dL (3.5-5.0); Albumin/Globulin Ratio 1.4 (1.2-2.2); Alkaline Phosphatase 98 U/L (46-116); Anion Gap 14 (7-16); Aspartate Amino Transferase 47 U/L (0-34); BUN/Creatinine Ratio 7 Ratio (12-20); Bilirubin,Total 0.6 mg/dL (0.3-1.2); Blood Urea Nitrogen < 5 mg/dL (9-23); Calcium 8.4 mg/dL (8.3-10.6); Calcium (Corrected) 8.7 mg/dL (8.5-10.1); Carbon Dioxide 20.3 mMol/L (20.0-31.0); Chloride 103 mMol/L (98-107); Creatine Kinase 1600 U/L (34-171); Creatinine (Component) 0.7 mg/dL (0.6-1.3); Estimated Creatinine Clearance 122.0 mL/min (>60); Globulin 2.6 gm/dL (2.3-3.5); Glucose 56 mg/dL (74-106); Osmolality,Calculated 269 (275-295); Potassium 3.6 mMol/L (3.4-5.1); Sodium 137 mMol/L (136-145); Total Protein 6.2 gm/dL (5.7-8.2); eGFR > 60 See Note
[2025-08-21] MEDS: PROPOFOL 1,000 MG IVPB 1,000 MG/100 ML VIAL 4.79 MG IV (06:48)
[2025-08-21] MEDS: levETIRAcetam INJ 100 MG/ML VIAL 5ML 1000 MG IVP ×2 (08:48→20:12)
[2025-08-21] MEDS: ENOXAPARIN SOD INJ 40 MG/0.4 ML SYRINGE SC (08:49)
[2025-08-21 10:15] LABS: Vancomycin,Trough 6.7 mcg/mL (5.0-10.0)
--- NOTE | 2025-08-21 11:44 | PC.SS ---
Follow up note: Possible extubation (remove breathing tube). On IV antibiotic.
--- NOTE | 2025-08-21 12:05 | ESPR_ITS ---
Documentation for date of: 08/21/25 Subjective Subjective Interval history: This is a 45yo M admitted to the ICU for status epilepticus. Pt has no known h/o sz disorder. He presented to the ER from long-term for 3 sz and did not return to baseline. Had ongoing sz in ER and was intubated for airway protection and versed gtt with propofol gtt. He was loaded on keppra in the ER. On arrival he was also found to have a Na of 122. Overnight he was placed on fluid restrict and was noted to have a brisk UOP with almost 5lts out. He is afebrile. his sedation was held this morning and he developed some spasticity with shaking tremors. He was given 2 mg midazolam for this and his propofol was restarted. Throughout the day he has continued to have a brisk urinary output of 200 to 400 cc an hour. 08/21- no acute overnight events, decrease in UOP after DDAVP, low grade temp Critical Care Note Critical care time (min.): 40 Exam Vital Signs Temp Pulse Resp BP Pulse Ox O2 Del Method O2 Flow Rate 100.3 F 102 H 16 116/82 96 Mechanical Ventilation 15 08/21/25 08:00 08/21/25 11:00 08/20/25 17:03 08/21/25 11:00 08/21/25 11:00 08/20/25 12:00 08/19/25 17:22 FiO2 21 08/21/25 09:57 Narrative Exam Gen- NAD, opens eyes to voice though does not follow commands, nl body habitus HEENT- NC/AT, mucosa hydrated, sclera anicteric, EOMI Chest- diminished , few crackles on R, HRRR, no increase in WOB Abd- s/nt/bs+ Ext- no edema, pulses palp, no clubbing, no mottling, no focal deficits Physical Exam Completion Physical Exam Complete?: Yes 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 08/21/25 04:06 08/21/25 04:06 Labs: Laboratory Results - last 24 hr 08/20/25 08/20/25 08/20/25 04:48 12:56 16:39 WBC RBC Hgb Hct MCV MCH MCHC RDW Std Deviation Plt Count Neut % (Auto) Lymph % (Auto) [place] % (Auto) Eos % (Auto) Baso % (Auto) Neut # (Auto) Lymph # (Auto) [place] # (Auto) Eos # (Auto) Baso # (Auto) Immature Gran # (Auto) Absolute Nucleated RBC Immature Gran % Nucleated RBC % Puncture Site ABG pH ABG pCO2 ABG pO2 ABG HCO3 ABG O2 Saturation ABG Base Excess FiO2 Sodium 141 142 Potassium Chloride Carbon Dioxide Anion Gap BUN Creatinine Estim Creat Clear Calc eGFR BUN/Creatinine Ratio Glucose Calculated Osmolality Calcium Corrected Calcium Total Bilirubin AST ALT Alkaline Phosphatase Total Creatine Kinase Total Protein Albumin Globulin Albumin/Globulin Ratio Vancomycin Trough Hepatitis A IgM Ab Non Reactive Hep Bs Antigen Non Reactive Hep B Core IgM Ab Non Reactive Hepatitis C Antibody Non Reactive 08/20/25 08/21/25 08/21/25 21:08 01:40 04:06 WBC 11.1 H RBC 4.80 Hgb 14.5 Hct 43.6 MCV 91 MCH 30.2 MCHC 33.3 RDW Std Deviation 42.9 Plt Count 158 D Neut % (Auto) 80 Lymph % (Auto) 8 L [place] % (Auto) 11 Eos % (Auto) 1 Baso % (Auto) 0 Neut # (Auto) 8.9 H Lymph # (Auto) 0.9 L [place] # (Auto) 1.2 H Eos # (Auto) 0.1 Baso # (Auto) 0.0 Immature Gran # (Auto) 0.03 H Absolute Nucleated RBC 0.00 Immature Gran % 0 Nucleated RBC % 0 Puncture Site ABG pH ABG pCO2 ABG pO2 ABG HCO3 ABG O2 Saturation ABG Base Excess FiO2 Sodium 135 L 137 137 Potassium 3.6 D Chloride 103 Carbon Dioxide 20.3 Anion Gap 14 BUN < 5 L Creatinine 0.7 Estim Creat Clear Calc 122.0 eGFR > 60 BUN/Creatinine Ratio 7 L Glucose 56 L Calculated Osmolality 269 L Calcium 8.4 Corrected Calcium 8.7 Total Bilirubin 0.6 D AST 47 H ALT 18 Alkaline Phosphatase 98 D Total Creatine Kinase 1600 H D Total Protein 6.2 Albumin 3.6 Globulin 2.6 Albumin/Globulin Ratio 1.4 Vancomycin Trough Hepatitis A IgM Ab Hep Bs Antigen Hep B Core IgM Ab Hepatitis C Antibody 08/21/25 08/21/25 04:46 09:10 WBC RBC Hgb Hct MCV MCH MCHC RDW Std Deviation Plt Count Neut % (Auto) Lymph % (Auto) [place] % (Auto) Eos % (Auto) Baso % (Auto) Neut # (Auto) Lymph # (Auto) [place] # (Auto) Eos # (Auto) Baso # (Auto) Immature Gran # (Auto) Absolute Nucleated RBC Immature Gran % Nucleated RBC % Puncture Site Right Radial ABG pH 7.44 ABG pCO2 37 ABG pO2 72 L D ABG HCO3 25 ABG O2 Saturation 96 ABG Base Excess 1 FiO2 30 Sodium Potassium Chloride Carbon Dioxide Anion Gap BUN Creatinine Estim Creat Clear Calc eGFR BUN/Creatinine Ratio Glucose Calculated Osmolality Calcium Corrected Calcium Total Bilirubin AST ALT Alkaline Phosphatase Total Creatine Kinase Total Protein Albumin Globulin Albumin/Globulin Ratio Vancomycin Trough 6.7 Hepatitis A IgM Ab Hep Bs Antigen Hep B Core IgM Ab Hepatitis C Antibody Assessment & Plan Additional Plan Additional Plan: In summary this is a 45-year-old male admitted to the ICU for status epilepticus 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 Status epilepticus- resolved - EEG did now show active sz - neuro recs appreciated - off prop and versed - felt to be 2/2 acute Na drop CV Stable Resp Acute respiratory failure-patient is currently intubated and on mechanical ventilation - doing well on PSV today - check weening parameters and extubate Renal Hyponatremia- resolved - yesterday with increased UOP however this has resolved Rhabdomyolysis- CK improving - encourage PO intake GI Transaminitis-mild elevation in AST in the setting of rhabdo - trending down GI prophylaxis-PPI Endo Stable Heme Leukocytosis-resolved DVT prophylaxis-Lovenox ID Aspiration-on antibiotics case d/w ICU team labs, imaging, records reviewed ~40ccmin required for eval, exam, review, intervention, discussion and formulation of POC for this critically ill pt with status epilepticus who is intubated Provider Notation Provider Notation: Although this document has been carefully reviewed, there may still be some phonetic and other typographical errors. These errors are purely grammatical due to imperfections in the software program and should not be construed in any way to compromise the substance of the patient's medical care during this visit. Thank you for the opportunity and privilege in assisting you with this patient's care and management.
--- NOTE | 2025-08-21 12:26 | ESPR_ITS ---
<Statement entered by Danny Lezama MD - 08/21/25 14:57> Patient was seen and examined at bedside this morning in ICU. Overnight, patient had drop in his blood sugars twice and was given amp of D25 and amp of D50 x 1 as blood sugar dropped to 62 mg/dL. Patient had a urine output around 450 cc over 24 hours. D5W was discontinued as sodium levels for at the goal of 137. After that, patient's sodium remained stable. Patient had a low-grade fever this morning. Patient was weaned off from sedation and passed extubation criteria with RSBI of score 32. Patient passed swallow screen and had a light sandwich this afternoon. EEG did not show any seizure like activity.Sodium checks were discontinued. Most likely symptoms of shaking tremors were related to being feeling cold or metabolic derangement. If patient remains stable 4 hours after intubation will likely downgrade to floor team for continuation of care. I discussed and supervised with the network internship physician who took care of this patient. I personally saw and examined the patient. I agree with most of the assessment and plan. Disclaimer: Despite multiple revisions, due to the dictation software being used, the document bellow may not be free of grammatical errors including phonetic/typographic errors. However, this does not deter from our commitment to providing health care in the patient's best interest in mind. Plan of care discussed with [employer] [place] Dr Martin Lezama MD PGY-3 Documentation for date of: 08/21/25 Subjective Subjective Interval history: 45-year-old male with no prior seizure history presented to the ED after multiple seizures without return to baseline. En route, he continued to seize and was treated with benzodiazepines. In the ED, the patient had ongoing seizure activity with intermittent desaturation to the 80s, prompting intubation for airway protection and initiation of sedation with propofol and midazolam infusions. He was given a loading dose of levetiracetam. CT head showed no acute intracranial hemorrhage. Initial labs revealed significant hyponatremia (Na 122), for which he was placed on fluid restriction. Neurology was consulted, and continuous EEG monitoring was started. The patient was admitted to the ICU for further management of status epilepticus. 08/21/25: The patient's glucose levels fell overnight, reaching 62 mg/dL at midnight and treated with an amp of D25 x1. Around 4 AM, the glucose level dropped further to 56 mg/dL, prompting the administration of an amp of D50 x 1. The patient's urine output was approximately 40 cc/hr, with a total of 450 cc over the past 24 hours. Urine output decreased after desmopressin. D5W was discontinued when the sodium level reached 135 from 142. A repeat sodium level this morning showed a level of 137. Patient's sodium levels continued to remain stable. Patient had low grade temperature (100.3F) this morning. The patient was gradually weaned off sedation. Once the patient was able to respond to commands and open his eyes spontaneously, pressure support was initiated. The patient's RSBI score was 32 and patient was extubated. 08/20/25: The patient remained on fluid restriction overnight and was noted to have a brisk urine output, totaling nearly 5 liters. On admission, serum sodium was 122 and had risen to 134 by this morning. Due to the rapid correction, 1L LR was administered, with a repeat sodium of 135. A second liter of LR was then given. Urine electrolytes were obtained and returned very dilute, with low sodium, potassium, and chloride. By early afternoon, sodium increased further to 141, prompting a head CT to evaluate for cerebral edema due to concern for underlying central diabetes insipidus. CT head was found to be within normal limits. The patient subsequently received an additional liter of LR and 1 mcg of desmopressin x1. A repeat sodium was 142, after which 2 mcg of desmopressin and D5W were administered. When sedation was held this morning, the patient developed shaking tremors with spasticity. He was treated with 2 mg midazolam, and propofol was restarted. Continuous EEG demonstrated no seizure activity. Throughout the day, urine output has remained brisk at 200?400 cc/hr. Will continue to monitor sodium Q4H. Exam Vital Signs Temp Pulse Resp BP Pulse Ox O2 Del Method O2 Flow Rate 100.3 F 102 H 16 116/82 96 Mechanical Ventilation 15 08/21/25 08:00 08/21/25 11:00 08/20/25 17:03 08/21/25 11:00 08/21/25 11:00 08/20/25 12:00 08/19/25 17:22 FiO2 21 08/21/25 09:57 Narrative Exam Physical Exam: General: Responsive to voice and grimaces at painful stimuli. Before extubation today, GCS score was 6T (no eye opening +1, intubated +1, withdrawal from pain +4, and both pupils reactive to light 0). Head: atraumatic, normocephalic. Eyes: pupils equal and reactive to light. Small pupils. Anicteric. Mouth/Throat: Superficial laceration and one white ulcer to lower lip. No bleeding. Cardiovascular: Regular rate and normal rhythm, no murmur, no JVD or carotid bruits. Respiratory: Extubated. Diffuse crackles of right anterior lung field (especially at the base). Left lung peralta were clear to auscultation. No wheezing. Gastrointestinal: Soft, no palpable masses.Non-distended. Bowel sounds present. Extremities: Lower extremities are cold, with no evidence of edema, cyanosis, or clubbing. Posterior tibial pulses are 2+ bilaterally. In the upper extremities, the left arm and hand are warm, well-perfused, and show normal capillary refill. However, the right arm, from the mid-forearm to the hand, is cold, with a capillary refill time of 2-3 seconds. Doppler ultrasound confirmed the presence patent radial artery and pulse. Skin: Warm, dry, intact, no obvious rash. Tattoos. Stage 1 sacrum pressure ulcer present with bandage in place. Objective Labs 08/21/25 04:06 08/21/25 04:06 Labs: Laboratory Results - last 24 hr 08/20/25 08/20/25 08/20/25 04:48 12:56 16:39 WBC RBC Hgb Hct MCV MCH MCHC RDW Std Deviation Plt Count Neut % (Auto) Lymph % (Auto) Story % (Auto) Eos % (Auto) Baso % (Auto) Neut # (Auto) Lymph # (Auto) Story # (Auto) Eos # (Auto) Baso # (Auto) Immature Gran # (Auto) Absolute Nucleated RBC Immature Gran % Nucleated RBC % Puncture Site ABG pH ABG pCO2 ABG pO2 ABG HCO3 ABG O2 Saturation ABG Base Excess FiO2 Sodium 141 142 Potassium Chloride Carbon Dioxide Anion Gap BUN Creatinine Estim Creat Clear Calc eGFR BUN/Creatinine Ratio Glucose Calculated Osmolality Calcium Corrected Calcium Total Bilirubin AST ALT Alkaline Phosphatase Total Creatine Kinase Total Protein Albumin Globulin Albumin/Globulin Ratio Vancomycin Trough Hepatitis A IgM Ab Non Reactive Hep Bs Antigen Non Reactive Hep B Core IgM Ab Non Reactive Hepatitis C Antibody Non Reactive 08/20/25 08/21/25 08/21/25 21:08 01:40 04:06 WBC 11.1 H RBC 4.80 Hgb 14.5 Hct 43.6 MCV 91 MCH 30.2 MCHC 33.3 RDW Std Deviation 42.9 Plt Count 158 D Neut % (Auto) 80 Lymph % (Auto) 8 L Story % (Auto) 11 Eos % (Auto) 1 Baso % (Auto) 0 Neut # (Auto) 8.9 H Lymph # (Auto) 0.9 L Story # (Auto) 1.2 H Eos # (Auto) 0.1 Baso # (Auto) 0.0 Immature Gran # (Auto) 0.03 H Absolute Nucleated RBC 0.00 Immature Gran % 0 Nucleated RBC % 0 Puncture Site ABG pH ABG pCO2 ABG pO2 ABG HCO3 ABG O2 Saturation ABG Base Excess FiO2 Sodium 135 L 137 137 Potassium 3.6 D Chloride 103 Carbon Dioxide 20.3 Anion Gap 14 BUN < 5 L Creatinine 0.7 Estim Creat Clear Calc 122.0 eGFR > 60 BUN/Creatinine Ratio 7 L Glucose 56 L Calculated Osmolality 269 L Calcium 8.4 Corrected Calcium 8.7 Total Bilirubin 0.6 D AST 47 H ALT 18 Alkaline Phosphatase 98 D Total Creatine Kinase 1600 H D Total Protein 6.2 Albumin 3.6 Globulin 2.6 Albumin/Globulin Ratio 1.4 Vancomycin Trough Hepatitis A IgM Ab Hep Bs Antigen Hep B Core IgM Ab Hepatitis C Antibody 08/21/25 08/21/25 04:46 09:10 WBC RBC Hgb Hct MCV MCH MCHC RDW Std Deviation Plt Count Neut % (Auto) Lymph % (Auto) Story % (Auto) Eos % (Auto) Baso % (Auto) Neut # (Auto) Lymph # (Auto) Story # (Auto) Eos # (Auto) Baso # (Auto) Immature Gran # (Auto) Absolute Nucleated RBC Immature Gran % Nucleated RBC % Puncture Site Right Radial ABG pH 7.44 ABG pCO2 37 ABG pO2 72 L D ABG HCO3 25 ABG O2 Saturation 96 ABG Base Excess 1 FiO2 30 Sodium Potassium Chloride Carbon Dioxide Anion Gap BUN Creatinine Estim Creat Clear Calc eGFR BUN/Creatinine Ratio Glucose Calculated Osmolality Calcium Corrected Calcium Total Bilirubin AST ALT Alkaline Phosphatase Total Creatine Kinase Total Protein Albumin Globulin Albumin/Globulin Ratio Vancomycin Trough 6.7 Hepatitis A IgM Ab Hep Bs Antigen Hep B Core IgM Ab Hepatitis C Antibody ABG Interpretation ABG results: 08/19/25 08/20/25 08/21/25 19:30 04:30 04:46 ABG pH 7.43 7.44 7.44 ABG pCO2 34 38 37 ABG pO2 250 H 107 D 72 L D ABG HCO3 23 26 25 ABG O2 Saturation 100 H 99 H 96 ABG Base Excess -1 2 1 Quality Measures Quality Measures none Assessment & Plan Assessment Current Active Medications: Generic Name Dose Route Start Last Admin Trade Name Freq PRN Reason Stop Dose Admin Acetaminophen 650 mg 08/19/25 17:03 Acetaminophen 325 Mg Tablet PO 09/18/25 17:02 Q6H PRN Fever >101.5 or pain 1-3 Enoxaparin Sodium 40 mg 08/20/25 11:00 08/21/25 08:49 Enoxaparin Sod Inj 40 Mg/0.4 Ml Syringe SC 09/03/25 10:59 40 mg QDAY IAN Administration Ampicillin Sodium/Sulbactam 100 mls @ 200 mls/hr 08/19/25 18:00 08/21/25 11:02 Sodium 3 gm/ Sodium Chloride IV 08/26/25 17:59 200 mls/hr Q6HR IAN Administration Fentanyl Citrate 2,500 mcg in 250 mls @ 2.5 mls/hr 08/19/25 18:12 08/21/25 07:30 Sublimaze Inj 2,500 Mcg/250 Ml Bag IV 08/24/25 18:11 0 mcg/hr .Q24H PRN 0 mls/hr PER PROTOCOL Titration Protocol 25 MCG/HR Propofol 1,000 mg in 100 mls @ 2.395 mls/hr 08/19/25 18:12 08/21/25 07:30 Diprivan Ivpb IV 09/18/25 18:11 0 mcg/kg/min .Q24H PRN 0 mls/hr PER PROTOCOL Titration Protocol 5 MCG/KG/MIN Midazolam HCl 100 mg in 100 mls @ 1 mls/hr 08/19/25 18:12 08/20/25 06:55 Versed Pf Inj In Ns Premix IV 08/24/25 18:11 0 mg/hr .Q24H PRN 0 mls/hr PER PROTOCOL Titration Protocol 1 MG/HR Dextrose 1,000 mls @ 125 mls/hr 08/20/25 17:14 08/20/25 21:57 D5w IV 08/21/25 17:13 0 mls/hr On Hold: 08/20/25 21:53 .Q8H IAN Infusion Levetiracetam 1,000 mg 08/20/25 21:00 08/21/25 08:48 Levetiracetam Inj 100 Mg/Ml Vial 5ml IVP 09/19/25 20:59 1,000 mg Q12HR IAN Administration Pantoprazole Sodium 40 mg 08/19/25 17:30 08/21/25 08:49 Pantoprazole Inj 40 Mg Vial IVP 09/18/25 17:29 40 mg QDAY IAN Administration Plan 45-year-old male with no prior seizure history presents with status epilepticus and severe hyponatremia, requiring intubation and ICU admission for continuous monitoring and management. NEURO #Status epilepticus (resolved) #Chemical sedation (discontinued) New onset, multiple episodes, refractory to antiepileptics, requiring intubation. Likely metabolic etiology in the setting of severe hyponatremia (Na 122). DDx: substance-induced seizures vs post-traumatic epilepsy w/o detectable imaging changes Dx: - No structural cause identified. Head CT 08/19 negative for hemorrhage, mass effect, or midline shift. - Continue EEG monitoring has not shown ongoing seizure activity, even without maintenance Keppra and discontinuing midazolam. Rx: - IV Midazolam 2mg Q30min PRN for breakthrough seizures. - IV Propofol infusion per sedation protocol - weaned off (08/21). - Neuro checks q4HR. - Neurology actively following, appreciate ongoing recommendations. CARDIO #Hypertensive urgency / emergency (resolved) Patient was intubated and seen to have BP greater than 180/120 SBP and DBP (patient was normotensive upon admission). Etiology unclear at this time. DDx: acute ischemic stroke vs intracranial hemorrhage vs inadequate sedation/agitation while intubated vs acute kidney injury Dx: - TSH 0.89 wnl. No evidence of thyroid dysfunction. - 08/[address] negative for gross hemorrhage, mass effect, or midline shift. - Maintain appropriate sedation, continue ventilatory support. PULM #Intubated on volume control from sub-8 GCS (extubated 08/21) Patient intubated and currently on mechanical ventilation (volume control mode). Etiology likely multifactorial in the setting of critical illness and sedation. Rx: - Weaned off propofol and fentanyl on 08/21. - Changed to pressure support. RSBI 32 and patient was extubated. - Continue monitoring respiratory status post-extubation. GI #Transaminitis (downtrending) Mild elevation in AST likely in the setting of rhabdomyolysis. No clinical evidence at present of intrinsic liver disease or biliary obstruction. Dx: AST 43 --> 60 --> 47. CK 4040 --> 1600. Rx: - Continue to trend CMP. - Continue IV protonix for GI PPX. - Swallow screen to determine if the patient is ready to begin a diet. NEPHRO #Hyponatremia (resolved) #Hypokalemia (resolved) #Hypochloremia (resolved) Patient initially presented with severe hyponatremia (Na 122), rapidly corrected to 134 with fluid restriction. Urine appears very dilute. Patient has had more than 300 cc of urine per hour for the last 3 hours. DDx: Central diabetes insipidus vs SIADH vs intracranial pathology (trauma, stroke). Dx: - Urine electrolytes: uRandom sodium <10.0 L, uRandom potassium <10 L, uRandom chloride <20.0. - Head CT 08/20 to evaluate for cerebral edema due to concern for underlying central diabetes insipidus. CT head was found to be within normal limits. - Urine osmolality pending. Rx: - D5W was discontinued when sodium reached 137. - Urine output decreased after Desmopressin 1 mcg x1 and 2mcg x1 was given. - Encourage PO intake. #Rhabdomyolysis (downtrending) CK 4040 (08/20). No CK available from arrival. Dx: - 08/20 AM labs showed CK of 4040. - 08/21 AM labs showed CK of 1600. Rx: - Encourage PO intake. HEME #Leukocytosis Admission WBC 16.1, afebrile, likely reactive Dx: 08/21: WBC 11. 1 from 8.2. Low-grade temp 100.3F this morning but now normalized. Rx: - Continue to monitor for fevers and trend CMP. - Continue Levenox for DVT PPX. ENDO #Hypoglycemia Likely secondary to being NPO. Patient's glucose levels dropped twice overnight, with intervention using dextrose. Rx: - Glucose levels fell to 62 mg/dL and 25 mL dose of dextrose was administered. - Glucose level dropped further to 56 mg/dL, and 50 mL of dextrose was administered. - Patient successfully extubated today, will do swallow screen to determine readiness for diet initiation. - Continue monitoring glucose levels closely. ID #Aspiration pneumonia Likely secondary to seizures. Dx: - CXR 08/20 showed significant right base pneumonia concerning for possible aspiration pneumonia. - MRSA nares negative. - Preliminary blood cultures negative. Rx: - Continue IV Unasyn 3 gram Q6H (08/19-). - Discontinued IV vancomycin (08/19-08/21). - Monitor WBC. - Clinical monitoring: fever, respiratory secretions, oxygenations. MSK #No active problems SKIN #No active problems Health Maintenance Disposition: Monitor patient for 4 hours post extubation. If patient remains stable, protecting own airway, and O2 satting well then downgrade to floors. N eed neurology clearance for discharge. DVT prophylaxis: Lovenox GI prophylaxis: IV Protonix 40 mg qD Diet: Regular Kinney: Present Lines: Peripheral IV Antibiotics: IV Unasyn CODE STATUS: FULL Patient care was discussed with my senior resident, Dr. Lezama and attending Dr. Salazar. Babak Ramos, DO Internal Medicine, PGY-1
--- NOTE | 2025-08-21 16:48 | PD.RESPRO ---
Documentation for date of: 08/21/25 Patient is a 45-year-old male with past medical history of CVA, denies history of behavioral health issues and hyperlipidemia who was admitted directly into ICU on 08/19/2025 secondary to status epilepticus requiring intubation. Concern for seizure secondary to sodium 122-->corrected for hyperglycemia, Na 124. Patient administered midazolam and Keppra 2000 mg X 1 in the ER. Neurology consulted, given possible metabolic cause leading to seizure, no anti-epileptics continued. EEG Negative. Patient subsequently extubated on 08/21/2025 and downgraded. Per chart review on admission patient appeared euvolemic, hypo-osmolar hyoponatremic, patient was placed on fluid restriction and hypertonic saline administered given symptomatic hyponatremia. Initial serum osmolarity less than 280,and random urine electrolytes >20 thus SIADH can not be ruled. Although water intoxication can not be ruled out given brisk urine output documents shortly after water restrictions but urine sodium would be lower. ICU team concern for Central DI, continue to monitor sodium and consider consult to neurology if Na becomes hypernatremic once again. Continue IV antibiotics (08/19-08/21/2025) given concern for aspiration pneumonia given x-ray findings of right base pneumonia. Blood cultures negative. Leukocytosis down trending. Patient stated he consumed meth prior to seizure, utox negative. Denied history of behavioral health disorder, denied psychiatric medication. - The patient's plan was discussed with attending Dr. Melody Laureano MD PGY2 Internal Medicine Subjective Subjective Interval history: Patient was examined bedside in the ICU. He is superficial and inappropriately unconcerned with content of discussion. He is AOx2 stating the year was 2006. He reports not taking any antipsychotics ever. He confirms that he has had prior episodes of hyponatremia. Confirms taking meth the day before admittance, and endorses drinking lots of water when he feels stressed. Exam Vital Signs Temp Pulse Resp BP Pulse Ox O2 Del Method O2 Flow Rate 97.4 F 110 H 16 130/84 96 Room Air 15 08/21/25 16:00 08/21/25 16:00 08/20/25 17:03 08/21/25 16:00 08/21/25 16:00 08/21/25 16:00 08/19/25 17:22 FiO2 21 08/21/25 12:30 Narrative Exam General: Responsive to voice and grimaces at painful stimuli. GCS: 15 Head: atraumatic, normocephalic. Eyes: pupils equal and reactive to light. Small pupils. Anicteric. Mouth/Throat: Superficial laceration and one white ulcer to lower lip. No bleeding. Cardiovascular: Regular rate and normal rhythm, no murmur, no JVD or carotid bruits. Respiratory: Extubated. Diffuse crackles of right anterior lung field (especially at the base). Left lung peralta were clear to auscultation. No wheezing. Gastrointestinal: Soft, no palpable masses.Non-distended. Bowel sounds present. Extremities: Lower extremities are cold, with no evidence of edema, cyanosis, or clubbing. Posterior tibial pulses are 2+ bilaterally. In the bilateral upper extremities, are warm, well-perfused, and show normal capillary refill. Skin: Warm, dry, intact, no obvious rash. Tattoos. Stage 1 sacrum pressure ulcer present with bandage in place. Objective Labs 08/22/25 05:01 08/22/25 05:01 Labs: Laboratory Results - last 24 hr 08/20/25 08/20/25 08/21/25 16:39 21:08 01:40 WBC RBC Hgb Hct MCV MCH MCHC RDW Std Deviation Plt Count Neut % (Auto) Lymph % (Auto) [place] % (Auto) Eos % (Auto) Baso % (Auto) Neut # (Auto) Lymph # (Auto) [place] # (Auto) Eos # (Auto) Baso # (Auto) Immature Gran # (Auto) Absolute Nucleated RBC Immature Gran % Nucleated RBC % Puncture Site ABG pH ABG pCO2 ABG pO2 ABG HCO3 ABG O2 Saturation ABG Base Excess FiO2 Sodium 142 135 L 137 Potassium Chloride Carbon Dioxide Anion Gap BUN Creatinine Estim Creat Clear Calc eGFR BUN/Creatinine Ratio Glucose Calculated Osmolality Calcium Corrected Calcium Total Bilirubin AST ALT Alkaline Phosphatase Total Creatine Kinase Total Protein Albumin Globulin Albumin/Globulin Ratio Vancomycin Trough 08/21/25 08/21/25 08/21/25 04:06 04:46 09:10 WBC 11.1 H RBC 4.80 Hgb 14.5 Hct 43.6 MCV 91 MCH 30.2 MCHC 33.3 RDW Std Deviation 42.9 Plt Count 158 D Neut % (Auto) 80 Lymph % (Auto) 8 L [place] % (Auto) 11 Eos % (Auto) 1 Baso % (Auto) 0 Neut # (Auto) 8.9 H Lymph # (Auto) 0.9 L [place] # (Auto) 1.2 H Eos # (Auto) 0.1 Baso # (Auto) 0.0 Immature Gran # (Auto) 0.03 H Absolute Nucleated RBC 0.00 Immature Gran % 0 Nucleated RBC % 0 Puncture Site Right Radial ABG pH 7.44 ABG pCO2 37 ABG pO2 72 L D ABG HCO3 25 ABG O2 Saturation 96 ABG Base Excess 1 FiO2 30 Sodium 137 Potassium 3.6 D Chloride 103 Carbon Dioxide 20.3 Anion Gap 14 BUN < 5 L Creatinine 0.7 Estim Creat Clear Calc 122.0 eGFR > 60 BUN/Creatinine Ratio 7 L Glucose 56 L Calculated Osmolality 269 L Calcium 8.4 Corrected Calcium 8.7 Total Bilirubin 0.6 D AST 47 H ALT 18 Alkaline Phosphatase 98 D Total Creatine Kinase 1600 H D Total Protein 6.2 Albumin 3.6 Globulin 2.6 Albumin/Globulin Ratio 1.4 Vancomycin Trough 6.7 ABG Interpretation ABG results: 08/19/25 08/20/25 08/21/25 19:30 04:30 04:46 ABG pH 7.43 7.44 7.44 ABG pCO2 34 38 37 ABG pO2 250 H 107 D 72 L D ABG HCO3 23 26 25 ABG O2 Saturation 100 H 99 H 96 ABG Base Excess -1 2 1 Quality Measures Quality Measures none Assessment & Plan Assessment Current Active Medications: Generic Name Dose Route Start Last Admin Trade Name Freq PRN Reason Stop Dose Admin Acetaminophen 650 mg 08/19/25 17:03 Acetaminophen 325 Mg Tablet PO 09/18/25 17:02 Q6H PRN Fever >101.5 or pain 1-3 Enoxaparin Sodium 40 mg 08/20/25 11:00 08/21/25 08:49 Enoxaparin Sod Inj 40 Mg/0.4 Ml Syringe SC 09/03/25 10:59 40 mg QDAY IAN Administration Ampicillin Sodium/Sulbactam 100 mls @ 200 mls/hr 08/19/25 18:00 08/21/25 11:02 Sodium 3 gm/ Sodium Chloride IV 08/26/25 17:59 200 mls/hr Q6HR IAN Administration Fentanyl Citrate 2,500 mcg in 250 mls @ 2.5 mls/hr 08/19/25 18:12 08/21/25 07:30 Sublimaze Inj 2,500 Mcg/250 Ml Bag IV 08/24/25 18:11 0 mcg/hr .Q24H PRN 0 mls/hr PER PROTOCOL Titration Protocol 25 MCG/HR Propofol 1,000 mg in 100 mls @ 2.395 mls/hr 08/19/25 18:12 08/21/25 07:30 Diprivan Ivpb IV 09/18/25 18:11 0 mcg/kg/min .Q24H PRN 0 mls/hr PER PROTOCOL Titration Protocol 5 MCG/KG/MIN Midazolam HCl 100 mg in 100 mls @ 1 mls/hr 08/19/25 18:12 08/20/25 06:55 Versed Pf Inj In Ns Premix IV 08/24/25 18:11 0 mg/hr .Q24H PRN 0 mls/hr PER PROTOCOL Titration Protocol 1 MG/HR Dextrose 1,000 mls @ 125 mls/hr 08/20/25 17:14 08/20/25 21:57 D5w IV 08/21/25 17:13 0 mls/hr On Hold: 08/20/25 21:53 .Q8H IAN Infusion Levetiracetam 1,000 mg 08/20/25 21:00 08/21/25 08:48 Levetiracetam Inj 100 Mg/Ml Vial 5ml IVP 09/19/25 20:59 1,000 mg Q12HR IAN Administration Pantoprazole Sodium 40 mg 08/19/25 17:30 08/21/25 08:49 Pantoprazole Inj 40 Mg Vial IVP 09/18/25 17:29 40 mg QDAY IAN Administration Plan Plan 45-year-old male with no prior seizure history presents with status epilepticus and severe hyponatremia, requiring intubation and ICU admission for continuous monitoring and management. Patients EEG showed no seizure activity, his hyponatremia corrected with fluid restriction. He is a poor historian and superficial in his responses at times, such as stating he took meth a day before admission, or that doing drugs was the reason he was arrested, however UDS was negative. Patient does endorse history of hyponatremia and drinking lots of water when he is stressed. 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 Could be metabolic etiology in the setting of severe hyponatremia (Na 122), which corrected with fluid restriction. Patient endorses history of drinking lots of water when stressed.Head CT 08/19 negative for hemorrhage, mass effect, or midline shift. EEG monitoring showed no signs of seizure activity. Plan: - Valium 2 mg PRN - notify provider before dosing - Neuro checks q4HR. - Neurology actively following, appreciate ongoing recommendations. #Hypertensive urgency / emergency (resolved) Patient was intubated and seen to have BP greater than 180/120 SBP and DBP (patient was normotensive upon admission). Etiology most likely due to poor pain control for intubation. TSH 0.89 wnl. No evidence of thyroid dysfunction. 08/[address] negative for gross hemorrhage, mass effect, or midline shift. Plan: -Consider more pain sedation next intubation #Severe hyperCKemia (downtrending) CK 4040 (08/20). No CK available from arrival. 08/20 AM labs showed CK of 4040. 08/21 AM labs showed CK of 1600. Plan: - Encourage PO intake. - Resolved with IV fluids #PNA most likely 12/22 #Aspiration pneumonia #Leukocytosis Likely secondary to seizures from possible aspiration pneumonia on right lung base but typically found on middle lobe. Leukocytois down trending. CXR 08/20 showed significant right base pneumonia concerning for possible aspiration pneumonia. MRSA nares negative. Blood cultures Negative. Sputum culture mixed abel. Plan: - Continue IV Unasyn 3 gram Q6H (08/19-) - Discontinued IV vancomycin (08/19-08/21). - Monitor WBC. - Clinical monitoring: fever, respiratory secretions, oxygenations. #Transaminitis (downtrending) Mild elevation in AST likely in the setting of rhabdomyolysis. No clinical evidence at present of intrinsic liver disease or biliary obstruction. Hepatitis Panel Negative. AST 43 --> 60 --> 47. CK 4040 --> 1600. Plan: -Continue to monitor LFTs #Hypoglycemia, resolved. Likely secondary to being NPO. Patient's glucose levels dropped twice overnight, with intervention using dextrose. Plan: - Continue monitoring glucose levels closely. - Diet regular now - DC'd IVF D50 #Stage 1 sacral pressure ulcer Wound care on board w/ dressing. Health Maintenance Disposition: Tele DVT prophylaxis: Kellinox GI prophylaxis: IV Protonix 40 mg qD Diet: Regular [place]: Present Lines: Peripheral IV Antibiotics: IV Unasyn CODE STATUS: FULL Patient care was discussed with my senior resident, Dr. Laureano and attending Dr. Melody Mai MD Internal Medicine, PGY-1 Attending Provider Attestation/Addendum I have examined the patient, reviewed labs and imaging findings, discussed the case with the resident(s), and reviewed entered orders. I agree with the plan of care as outlined in this note. Dr. Melody MD
--- NOTE | 2025-08-21 23:35 | ESPR_ITS ---
Documentation for date of: 08/21/25 Subjective Subjective Interval history: Patient examined at bedside. He was extubated today around noon. He is oriented to self, complains of difficulty speaking. Patient has remained seizure-free since placement in the ICU. Vitals are stable, sodium 137. Continue to monitor patient's symptoms and labs. No need for antiepileptic drugs as is most likely underlying cause of onset of his seizures were electrolyte abnormalities. Exam Vital Signs Temp Pulse Resp BP Pulse Ox O2 Del Method O2 Flow Rate 97.5 F 104 H 16 100/67 97 Room Air 15 08/21/25 20:00 08/21/25 20:00 08/20/25 17:03 08/21/25 20:00 08/21/25 20:00 08/21/25 16:00 08/19/25 17:22 FiO2 21 08/21/25 12:30 Narrative Exam General: Middle age male, No acute distress, cooperative HEENT: NCAT, No JVD noted. Mucosa dry. Pupils are equal and reactive to light bilaterally Cardiovascular: Normal S1 and S2. Regular rate and rhythm. Respiratory: Lungs are clear to auscultation bilaterally. No wheezing or crackles heard. Abdomen: Soft, nontender, not distended, normal bowel sounds. Skin: Warm to touch, dry, no rashes noted, tattos all over Musculoskeletal: No gross injuries. Able to move all 4 extremities. No pitting edema Neuro: Alert and oriented x3. No focal neuro deficits but left UE weaker > LE Psych: Normal affect and mood Objective Labs 08/21/25 04:06 08/21/25 04:06 Labs: Laboratory Results - last 24 hr 08/21/25 08/21/25 08/21/25 01:40 04:06 04:46 WBC 11.1 H RBC 4.80 Hgb 14.5 Hct 43.6 MCV 91 MCH 30.2 MCHC 33.3 RDW Std Deviation 42.9 Plt Count 158 D Neut % (Auto) 80 Lymph % (Auto) 8 L [place] % (Auto) 11 Eos % (Auto) 1 Baso % (Auto) 0 Neut # (Auto) 8.9 H Lymph # (Auto) 0.9 L [place] # (Auto) 1.2 H Eos # (Auto) 0.1 Baso # (Auto) 0.0 Immature Gran # (Auto) 0.03 H Absolute Nucleated RBC 0.00 Immature Gran % 0 Nucleated RBC % 0 Puncture Site Right Radial ABG pH 7.44 ABG pCO2 37 ABG pO2 72 L D ABG HCO3 25 ABG O2 Saturation 96 ABG Base Excess 1 FiO2 30 Sodium 137 137 Potassium 3.6 D Chloride 103 Carbon Dioxide 20.3 Anion Gap 14 BUN < 5 L Creatinine 0.7 Estim Creat Clear Calc 122.0 eGFR > 60 BUN/Creatinine Ratio 7 L Glucose 56 L Calculated Osmolality 269 L Calcium 8.4 Corrected Calcium 8.7 Total Bilirubin 0.6 D AST 47 H ALT 18 Alkaline Phosphatase 98 D Total Creatine Kinase 1600 H D Total Protein 6.2 Albumin 3.6 Globulin 2.6 Albumin/Globulin Ratio 1.4 Vancomycin Trough 08/21/25 09:10 WBC RBC Hgb Hct MCV MCH MCHC RDW Std Deviation Plt Count Neut % (Auto) Lymph % (Auto) [place] % (Auto) Eos % (Auto) Baso % (Auto) Neut # (Auto) Lymph # (Auto) [place] # (Auto) Eos # (Auto) Baso # (Auto) Immature Gran # (Auto) Absolute Nucleated RBC Immature Gran % Nucleated RBC % Puncture Site ABG pH ABG pCO2 ABG pO2 ABG HCO3 ABG O2 Saturation ABG Base Excess FiO2 Sodium Potassium Chloride Carbon Dioxide Anion Gap BUN Creatinine Estim Creat Clear Calc eGFR BUN/Creatinine Ratio Glucose Calculated Osmolality Calcium Corrected Calcium Total Bilirubin AST ALT Alkaline Phosphatase Total Creatine Kinase Total Protein Albumin Globulin Albumin/Globulin Ratio Vancomycin Trough 6.7 ABG Interpretation ABG results: 08/19/25 08/20/25 08/21/25 19:30 04:30 04:46 ABG pH 7.43 7.44 7.44 ABG pCO2 34 38 37 ABG pO2 250 H 107 D 72 L D ABG HCO3 23 26 25 ABG O2 Saturation 100 H 99 H 96 ABG Base Excess -1 2 1 Quality Measures Quality Measures none Assessment & Plan Assessment Current Active Medications: Generic Name Dose Route Start Last Admin Trade Name Freq PRN Reason Stop Dose Admin Acetaminophen 650 mg 08/19/25 17:03 Acetaminophen 325 Mg Tablet PO 09/18/25 17:02 Q6H PRN Fever >101.5 or pain 1-3 Diazepam 2 mg 08/21/25 17:26 Diazepam 2 Mg Tablet PO 08/26/25 17:25 QID PRN SEIZURES Enoxaparin Sodium 40 mg 08/20/25 11:00 08/21/25 08:49 Enoxaparin Sod Inj 40 Mg/0.4 Ml Syringe SC 09/03/25 10:59 40 mg QDAY IAN Administration Ampicillin Sodium/Sulbactam 100 mls @ 200 mls/hr 08/19/25 18:00 08/21/25 17:30 Sodium 3 gm/ Sodium Chloride IV 08/26/25 17:59 200 mls/hr Q6HR IAN Administration Fentanyl Citrate 2,500 mcg in 250 mls @ 2.5 mls/hr 08/19/25 18:12 08/21/25 07:30 Sublimaze Inj 2,500 Mcg/250 Ml Bag IV 08/24/25 18:11 0 mcg/hr .Q24H PRN 0 mls/hr PER PROTOCOL Titration Protocol 25 MCG/HR Levetiracetam 1,000 mg 08/20/25 21:00 08/21/25 20:12 Levetiracetam Inj 100 Mg/Ml Vial 5ml IVP 09/19/25 20:59 1,000 mg Q12HR IAN Administration Pantoprazole Sodium 40 mg 08/19/25 17:30 08/21/25 08:49 Pantoprazole Inj 40 Mg Vial IVP 09/18/25 17:29 40 mg QDAY IAN Administration Plan 45 year old male with reported PMH of CVA (per prior charts), unspecified psychiatric illness, and chronic homelessness presents to the ED BIBA from [facility] for evaluation of seizures. In the ED, patient was given 1 L NS bolus, midazolam 2 mg x 1, potassium chloride 10 mEq x 1, levetiracetam 2000 mg x 1 and started on NS fluid infusion @ 100 cc/hr, midazolam 2 mg prn. Due to concern regarding patient's ability to protect his airway, he was intubated. Patient was admitted to the ICU for the work-up and management of multiple seizure episodes refractory to antiepileptics and requiring intubation in the setting of euvolemic, hypoosmolar hyponatremia. #New onset tonic-clonic seizures (resolved) #Hypoosmolar hyponatremia-resolved Patient's new onset seizures likely due to metabolic disturbances. Upon arrival in the ED sodium at 122. He was witnessed to have 2 episodes of seizure at the long term. These episodes were terminated with benzodiazepine. However seizures reoccurred while in the ED after loading dose of Keppra. Patient did not regain consciousness in between episodes and required intubation for airway protection. Patient was started on 3% hypertonic saline and overnight sodium corrected to 134. Repeat CT head from this afternoon negative for any interval acute hemorrhage, mass effect or midline shift. No ventricular enlargement. EEG was negative. -Neuro checks q4HR -sodium checks q4hr -hold off on starting antiepileptic medication #Intubated and sedated #Transaminitis #Aspiration pneumonia #Hypokalemia #Hypochloremia #Hx psychiatric illness Primary care team to manage above conditions and ongoing care needs. The patient's management plan was discussed with my attending physician Dr. Case. Kayla Rodriguez, PGY-2 Attending Provider Attestation/Addendum I personally have seen and examined the patient at the bedside and I agree with resident's findings, assessment and plan of care. His presentation is most likely related to metabolic encephalopathy EEG did not show any electrographic seizures/interictal epileptiform discharges. His witnessed clinical seizure is secondary to hyponatremia. Will continue to monitor his electrolyte levels and treat accordingly. He does not need to be on any antiepileptic therapy unless he has unprovoked recurrent seizures. Noted that he got extubated and downgraded. Will continue to follow.
[2025-08-22] VITALS (9 sets, daily range): BP systolic 100–136; BP diastolic 67–97; PULSE 75–104; RESP 14–97; TEMP 36.4–37.2; O2SAT 94–98; BMI 26.0; BMI 26.1
[2025-08-22] MEDS: AMPICILLIN/SULBAC INJ 3 GM in SODIUM CHLORIDE 0.9% (POP) 100 ML IV ×4 (05:05→23:30)
[2025-08-22 05:51] LABS: Basophils # (Auto) 0.0 Thou/mm3 (0.0-0.2); Basophils % (Auto) 1 % (0-2.5); Eosinophils # (Auto) 0.1 Thou/mm3 (0.0-0.5); Eosinophils % (Auto) 1 % (0-10); Hematocrit 40.5 % (41.0-53.0); Hemoglobin 13.7 g/dL (13.5-16.0); Immature Granulocytes Auto 0.03 Thou/mm3 (0.00-0.00); Lymphocytes # (Auto) 0.6 Thou/mm3 (1.0-4.8); Lymphocytes % (Auto) 7 % (10-50); Mean Corpuscular HGB Conc 33.8 g/dl (31.0-37.0); Mean Corpuscular Hemoglobin 30.3 pg (25.0-35.0); Mean Corpuscular Volume 90 fL (80-100); Monocytes # (Auto) 0.5 Thou/mm3 (0.0-0.8); Monocytes % (Auto) 6 % (0-12); Neutrophils # (Auto) 7.5 Thou/mm3 (1.8-7.7); Neutrophils % (Auto) 85 % (37-80); Nucleated Red Blood Cell # 0.00 Thou/mm3 (0.00-0.00); Nucleated Red Blood Cell % 0 /100 WBC (0); Platelet Count 190 Thou/mm3 (140-440); RDW Standard Deviation 42.3 fL (35.1-43.9); Red Blood Count 4.52 Miln/mm3 (4.50-5.90); White Blood Count 8.8 Thou/mm3 (3.8-10.6)
[2025-08-22 06:06] LABS: Alanine Aminotransferase 26 U/L (10-49); Albumin, Serum 4.2 gm/dL (3.5-5.0); Albumin/Globulin Ratio 1.4 (1.2-2.2); Alkaline Phosphatase 90 U/L (46-116); Anion Gap 13 (7-16); Aspartate Amino Transferase 60 U/L (0-34); BUN/Creatinine Ratio 11 Ratio (12-20); Bilirubin,Total 1.0 mg/dL (0.3-1.2); Blood Urea Nitrogen 10 mg/dL (9-23); Calcium 9.2 mg/dL (8.3-10.6); Calcium (Corrected) 9.2 mg/dL (8.5-10.1); Carbon Dioxide 24.7 mMol/L (20.0-31.0); Chloride 104 mMol/L (98-107); Creatinine (Component) 0.9 mg/dL (0.6-1.3); Estimated Creatinine Clearance 94.9 mL/min (>60); Globulin 2.9 gm/dL (2.3-3.5); Glucose 90 mg/dL (74-106); Magnesium 2.0 mg/dL (1.6-2.6); Osmolality,Calculated 282 (275-295); Phosphorous 3.1 mg/dL (2.4-5.1); Potassium 3.7 mMol/L (3.4-5.1); Sodium 142 mMol/L (136-145); Total Protein 7.1 gm/dL (5.7-8.2); eGFR > 60 See Note
[2025-08-22] MEDS: ENOXAPARIN SOD INJ 40 MG/0.4 ML SYRINGE SC (08:28)
[2025-08-22] MEDS: levETIRAcetam INJ 100 MG/ML VIAL 5ML 1000 MG IVP ×2 (08:28→20:12)
[2025-08-22 08:37] LABS: Creatine Kinase 2152 U/L (34-171)
--- NOTE | 2025-08-22 09:01 | PC.NURSE ---
Dr. Montgomery at bedside and made aware of pt. redness to hands and forearms accompanied by warmth and pain. Pt. is a poor historian. aware of antibiotic already on board for patient. No further orders at this time.
[2025-08-22] MEDS: POTASSIUM CHLORIDE 10% 20 MEQ/15 ML UDC 40 MEQ PO (09:05)
--- NOTE | 2025-08-22 10:45 | PC.NURSE ---
Per Dr. Nica BUSH glucose checks.
--- NOTE | 2025-08-22 11:58 | PD.RESPRO ---
Documentation for date of: 08/22/25 No overnight events reported. No seizure like activity. No anti-seizure medication. Sodium continues to be within normal limits. Pending SNF placement. - The patient's plan was discussed with attending Dr. Tasia Laureano MD PGY2 Internal Medicine Subjective Subjective Interval history: No overnight events. Patient was examined at bedside; he was sitting upright in bed and about to have breakfast. When asked about what he thinks brought him into the hospital, he replied that he had a stroke and denied every having an episode like this before. Vitals and labs were WNL. On physical exam, his hands and forearms had some slight erythema and warmth to them bilaterally and patient endorsed that they were itchy. Physical therapy also tried to get him out of bed but he has apparently been exhibiting bilateral lower extremity weakness. Current plan moving forward is to discontinue patient's central line and Kinney, work with social to arrange placement at a homeless prison, and add PO Benadryl prn for his itchy hands and forearms. Exam Vital Signs Temp Pulse Resp BP Pulse Ox O2 Del Method O2 Flow Rate 99.0 F 96 19 123/97 H 97 Room Air 15 08/22/25 08:25 08/22/25 08:25 08/22/25 08:25 08/22/25 08:25 08/22/25 08:25 08/22/25 08:25 08/19/25 17:22 FiO2 21 08/21/25 12:30 Narrative Exam General: Responsive to voice and grimaces at painful stimuli. GCS: 15 Head: Atraumatic, normocephalic. Eyes: Pupils equal and reactive to light. Anicteric. Mouth/Throat: Superficial laceration and one white ulcer to lower lip. No bleeding. Cardiovascular: Regular rate and normal rhythm, no murmur, no JVD or carotid bruits. Respiratory: Anterior lung peralta seem clear to auscultation bilaterally. No wheezing. Patient was not cooperative with sitting up for auscultation to posterior lung peralta. Gastrointestinal: Soft, no palpable masses.Non-distended. Bowel sounds present. Extremities: Slight swelling and erythema of bilateral hands and forearms. Left distal forearm feels slightly warm to touch. Lower extremities are cold, with no evidence of edema, cyanosis, or clubbing. Posterior tibial pulses are 2+ bilaterally. Skin: Warm, dry, intact. Tattoos. Stage 1 sacrum pressure ulcer present with bandage in place. Objective Labs 08/22/25 05:01 08/22/25 13:35 Labs: Laboratory Results - last 24 hr 08/22/25 05:01 WBC 8.8 RBC 4.52 Hgb 13.7 Hct 40.5 L MCV 90 MCH 30.3 MCHC 33.8 RDW Std Deviation 42.3 Plt Count 190 D Neut % (Auto) 85 H Lymph % (Auto) 7 L [place] % (Auto) 6 Eos % (Auto) 1 Baso % (Auto) 1 Neut # (Auto) 7.5 Lymph # (Auto) 0.6 L [place] # (Auto) 0.5 Eos # (Auto) 0.1 Baso # (Auto) 0.0 Immature Gran # (Auto) 0.03 H Absolute Nucleated RBC 0.00 Immature Gran % 0 Nucleated RBC % 0 Sodium 142 Potassium 3.7 Chloride 104 Carbon Dioxide 24.7 Anion Gap 13 BUN 10 Creatinine 0.9 Estim Creat Clear Calc 94.9 eGFR > 60 BUN/Creatinine Ratio 11 L Glucose 90 D Calculated Osmolality 282 Calcium 9.2 Corrected Calcium 9.2 Phosphorus 3.1 Magnesium 2.0 Total Bilirubin 1.0 AST 60 H ALT 26 Alkaline Phosphatase 90 Total Creatine Kinase 2152 H D Total Protein 7.1 Albumin 4.2 D Globulin 2.9 Albumin/Globulin Ratio 1.4 ABG Interpretation ABG results: 08/19/25 08/20/25 08/21/25 19:30 04:30 04:46 ABG pH 7.43 7.44 7.44 ABG pCO2 34 38 37 ABG pO2 250 H 107 D 72 L D ABG HCO3 23 26 25 ABG O2 Saturation 100 H 99 H 96 ABG Base Excess -1 2 1 Quality Measures Quality Measures none Assessment & Plan Assessment Current Active Medications: Generic Name Dose Route Start Last Admin Trade Name Freq PRN Reason Stop Dose Admin Acetaminophen 650 mg 08/19/25 17:03 Acetaminophen 325 Mg Tablet PO 09/18/25 17:02 Q6H PRN Fever >101.5 or pain 1-3 Diazepam 2 mg 08/21/25 17:26 Diazepam 2 Mg Tablet PO 08/26/25 17:25 QID PRN SEIZURES Enoxaparin Sodium 40 mg 08/20/25 11:00 08/22/25 08:28 Enoxaparin Sod Inj 40 Mg/0.4 Ml Syringe SC 09/03/25 10:59 40 mg QDAY IAN Administration Ampicillin Sodium/Sulbactam 100 mls @ 200 mls/hr 08/19/25 18:00 08/22/25 11:46 Sodium 3 gm/ Sodium Chloride IV 08/26/25 17:59 200 mls/hr Q6HR IAN Administration Fentanyl Citrate 2,500 mcg in 250 mls @ 2.5 mls/hr 08/19/25 18:12 08/21/25 07:30 Sublimaze Inj 2,500 Mcg/250 Ml Bag IV 08/24/25 18:11 0 mcg/hr .Q24H PRN 0 mls/hr PER PROTOCOL Titration Protocol 25 MCG/HR Levetiracetam 1,000 mg 08/20/25 21:00 08/22/25 08:28 Levetiracetam Inj 100 Mg/Ml Vial 5ml IVP 09/19/25 20:59 1,000 mg Q12HR IAN Administration Pantoprazole Sodium 40 mg 08/19/25 17:30 08/22/25 08:28 Pantoprazole Inj 40 Mg Vial IVP 09/18/25 17:29 40 mg QDAY IAN Administration Plan Patient is a 45-year-old male with past medical history of CVA, denies history of behavioral health issues and hyperlipidemia who was admitted directly into ICU on 08/19/2025 secondary to status epilepticus requiring intubation. 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 Could be metabolic etiology in the setting of severe hyponatremia (Na 122), which corrected with fluid restriction. Patient endorses history of drinking lots of water when stressed. Head CT 08/19 negative for hemorrhage, mass effect, or midline shift. EEG monitoring showed no signs of seizure activity. Plan: - Valium 2 mg PRN - notify provider before dosing - Neuro checks q4HR. - Neurology actively following, appreciate ongoing recommendations. #Hypertensive urgency / emergency (resolved) Patient was intubated and seen to have BP greater than 180/120 SBP and DBP (patient was normotensive upon admission). Etiology most likely due to poor pain control for intubation. TSH 0.89 wnl. No evidence of thyroid dysfunction. 08/[address] negative for gross hemorrhage, mass effect, or midline shift. Plan: -Normotensive right now, no intervention indicated #Severe hyperCKemia (downtrending) CK 4040 (08/20). No CK available from arrival. 08/20 AM labs showed CK of 4040. 08/21 AM labs showed CK of 1600. Plan: - Encourage PO intake. - Resolved with IV fluids #PNA most likely 2/2 #Aspiration pneumonia #Leukocytosis Likely secondary to seizures from possible aspiration pneumonia on right lung base but typically found on middle lobe. Leukocytosis down trending. CXR 08/20 showed significant right base pneumonia concerning for possible aspiration pneumonia. MRSA nares negative. Blood cultures Negative. Sputum culture mixed abel. Plan: - Continue IV Unasyn 3 gram Q6H (08/19-) - Discontinued IV vancomycin (08/19-08/21). - Monitor WBC. - Clinical monitoring: fever, respiratory secretions, oxygenations. #Transaminitis (downtrending) Mild elevation in AST likely in the setting of rhabdomyolysis. No clinical evidence at present of intrinsic liver disease or biliary obstruction. Hepatitis Panel Negative. AST 47 --> 60 today. CK 4040 --> 1600. Plan: -Continue to monitor LFTs #Hypoglycemia, resolved. Likely secondary to being NPO. Patient's glucose levels dropped twice overnight, with intervention using dextrose. Plan: - Continue monitoring glucose levels closely. - Diet regular now - DC'd IVF D50 #Mild swelling and erythema of bilateral hands and forearms Possibly 2/2 allergic reaction to medications Plan: -PO Benadryl prn #Stage 1 sacral pressure ulcer Wound care on board w/ dressing. Health Maintenance Disposition: Working with social to arrange placement at [facility] DVT prophylaxis: Lovenox GI prophylaxis: IV Protonix 40 mg qD Diet: Regular Kinney: (discontinued Kinney) Lines: (discontinued Central Line) Antibiotics: IV Unasyn CODE STATUS: FULL Patient care was discussed with my senior resident, Dr. Laureano and attending Dr. Tasia Montgomery, DO Internal Medicine, PGY-1 Attending Provider Attestation/Addendum I have discussed and was present for the essential components of the history, physical examination, diagnosis, and treatment plan with the resident. I agree with the patient's care as documented by the resident and amended herein by me. Gus Dozier DO. Although this document has been carefully reviewed, there may still be some phonetic and other typographical errors. These errors are purely grammatical due to imperfections in the software program and should not be construed in any way to compromise the substance of the patient's medical care during this visit. Patient seen and evaluated this AM. No acute events overnight, vital signs stable, patient afebrile, labs largely unremarkable, sodium 142 today. Neurology not recommending any antiepileptic drugs at this point, EEG within normal limits, seizure activity likely secondary to metabolic derangements on admission. Patient will need SNF placement, insurance authorization pending. Patient also on Unasyn for pneumonia, can DC on p.o. ABX when ready.
--- NOTE | 2025-08-22 14:28 | PC.SS ---
Addendum entered by Milly Dougherty 08/22/25 14:55: Follow up note: SS received responses from some facilities indicating he would be a safety risk to other residents. SS updated PT to continue to work with patient as we will need to d/c to local care home. Original Note: Follow up note: SS spoke to nursing who states when patient was [facility] from ICU [facility] stated that [facility] was [facility] from them. Patient worked with PT and they recommended short term SnF for futher PT due to patient being weak. SS sent inquiry through [employer]. PASRR pending. Patient has psych history so it will be a level II. Patient will also need prior auth if accepted. PT eval notes pending
[2025-08-22 14:31] LABS: Albumin, Serum 3.8 gm/dL (3.5-5.0); Anion Gap 9 (7-16); BUN/Creatinine Ratio 16 Ratio (12-20); Blood Urea Nitrogen 11 mg/dL (9-23); Calcium 8.3 mg/dL (8.3-10.6); Calcium (Corrected) 8.5 mg/dL (8.5-10.1); Carbon Dioxide 25.6 mMol/L (20.0-31.0); Chloride 106 mMol/L (98-107); Creatinine (Component) 0.7 mg/dL (0.6-1.3); Estimated Creatinine Clearance 117.7 mL/min (>60); Glucose 111 mg/dL (74-106); Osmolality,Calculated 281 (275-295); Phosphorous 2.9 mg/dL (2.4-5.1); Potassium 4.3 mMol/L (3.4-5.1); Sodium 141 mMol/L (136-145); eGFR > 60 See Note
--- NOTE | 2025-08-22 16:27 | PC.NURSE ---
Dr. Laureano aware pt. starting to get aggitated and curse stating this is Fg BT when told to lay back in bed due to risk for falls and weakness in legs. coming to bedside.
--- NOTE | 2025-08-22 16:47 | PC.NURSE ---
Pt. has been cleaned up 4 times today after eating. Pt. refuses assistance to eat but has poor coordination to feed self.
--- NOTE | 2025-08-22 17:05 | PD.RESPRO ---
Documentation for date of: 08/22/25 Subjective Subjective Interval history: Patient examined at bedside. No major complaints. Alert and oriented to self and place. Patient has remained seizure-free since placement in the ICU. He was downgraded to floors yesterday. Vitals are stable, labs unremarkable. Continue to monitor patient's symptoms and labs. No need for antiepileptic drugs as is most likely underlying cause of onset of his seizures were electrolyte abnormalities. Exam Vital Signs Temp Pulse Resp BP Pulse Ox O2 Del Method O2 Flow Rate 98.5 F 89 18 128/84 9 L Room Air 15 08/22/25 12:00 08/22/25 16:00 08/22/25 12:00 08/22/25 12:00 08/22/25 12:00 08/22/25 12:00 08/19/25 17:22 FiO2 21 08/21/25 12:30 Narrative Exam General: Middle age male, No acute distress, cooperative HEENT: NCAT, No JVD noted. Mucosa moist. Pupils are equal and reactive to light bilaterally Cardiovascular: Normal S1 and S2. Regular rate and rhythm. Respiratory: Lungs are clear to auscultation bilaterally. No wheezing or crackles heard. Abdomen: Soft, nontender, not distended, normal bowel sounds. Skin: Warm to touch, dry, no rashes noted, tattos all over Musculoskeletal: No gross injuries. Able to move all 4 extremities. No pitting edema Neuro: Alert and oriented x2. No focal neuro deficits but is confused. He was able to take a few steps with assistance. Complaining of leg pain. Psych: Normal affect and mood Objective Labs 08/23/25 05:45 08/23/25 05:45 Labs: Laboratory Results - last 24 hr 08/22/25 08/22/25 05:01 13:35 WBC 8.8 RBC 4.52 Hgb 13.7 Hct 40.5 L MCV 90 MCH 30.3 MCHC 33.8 RDW Std Deviation 42.3 Plt Count 190 D Neut % (Auto) 85 H Lymph % (Auto) 7 L [place] % (Auto) 6 Eos % (Auto) 1 Baso % (Auto) 1 Neut # (Auto) 7.5 Lymph # (Auto) 0.6 L [place] # (Auto) 0.5 Eos # (Auto) 0.1 Baso # (Auto) 0.0 Immature Gran # (Auto) 0.03 H Absolute Nucleated RBC 0.00 Immature Gran % 0 Nucleated RBC % 0 Sodium 142 141 Potassium 3.7 4.3 D Chloride 104 106 Carbon Dioxide 24.7 25.6 Anion Gap 13 9 BUN 10 11 Creatinine 0.9 0.7 Estim Creat Clear Calc 94.9 117.7 eGFR > 60 > 60 BUN/Creatinine Ratio 11 L 16 Glucose 90 D 111 H Calculated Osmolality 282 281 Calcium 9.2 8.3 Corrected Calcium 9.2 8.5 Phosphorus 3.1 2.9 Magnesium 2.0 Total Bilirubin 1.0 AST 60 H ALT 26 Alkaline Phosphatase 90 Total Creatine Kinase 2152 H D Total Protein 7.1 Albumin 4.2 D 3.8 Globulin 2.9 Albumin/Globulin Ratio 1.4 ABG Interpretation ABG results: 08/19/25 08/20/25 08/21/25 19:30 04:30 04:46 ABG pH 7.43 7.44 7.44 ABG pCO2 34 38 37 ABG pO2 250 H 107 D 72 L D ABG HCO3 23 26 25 ABG O2 Saturation 100 H 99 H 96 ABG Base Excess -1 2 1 Quality Measures Quality Measures none Assessment & Plan Assessment Current Active Medications: Generic Name Dose Route Start Last Admin Trade Name Freq PRN Reason Stop Dose Admin Acetaminophen 650 mg 08/19/25 17:03 Acetaminophen 325 Mg Tablet PO 09/18/25 17:02 Q6H PRN Fever >101.5 or pain 1-3 Diazepam 2 mg 08/21/25 17:26 Diazepam 2 Mg Tablet PO 08/26/25 17:25 QID PRN SEIZURES Enoxaparin Sodium 40 mg 08/20/25 11:00 08/22/25 08:28 Enoxaparin Sod Inj 40 Mg/0.4 Ml Syringe SC 09/03/25 10:59 40 mg QDAY IAN Administration Hydroxyzine HCl 25 mg 08/22/25 16:31 08/22/25 16:37 Hydroxyzine Hcl 25 Mg Tablet PO 09/21/25 16:30 25 mg Q6HR PRN Administration AGITATION OR ANXIETY Ampicillin Sodium/Sulbactam 100 mls @ 200 mls/hr 08/19/25 18:00 08/22/25 11:46 Sodium 3 gm/ Sodium Chloride IV 08/26/25 17:59 200 mls/hr Q6HR IAN Administration Fentanyl Citrate 2,500 mcg in 250 mls @ 2.5 mls/hr 08/19/25 18:12 08/21/25 07:30 Sublimaze Inj 2,500 Mcg/250 Ml Bag IV 08/24/25 18:11 0 mcg/hr .Q24H PRN 0 mls/hr PER PROTOCOL Titration Protocol 25 MCG/HR Levetiracetam 1,000 mg 08/20/25 21:00 08/22/25 08:28 Levetiracetam Inj 100 Mg/Ml Vial 5ml IVP 09/19/25 20:59 1,000 mg Q12HR IAN Administration Pantoprazole Sodium 40 mg 08/23/25 09:00 Pantoprazole 40 Mg Tablet PO 09/22/25 08:59 QDAY IAN Plan 45 year old male with reported PMH of CVA (per prior charts), unspecified psychiatric illness, and chronic homelessness presents to the ED [facility] from [facility] for evaluation of seizures. In the ED, patient was given 1 L NS bolus, midazolam 2 mg x 1, potassium chloride 10 mEq x 1, levetiracetam 2000 mg x 1 and started on NS fluid infusion @ 100 cc/hr, midazolam 2 mg prn. Due to concern regarding patient's ability to protect his airway, he was intubated. Patient was admitted to the ICU for the work-up and management of multiple seizure episodes refractory to antiepileptics and requiring intubation in the setting of euvolemic, hypoosmolar hyponatremia. #New onset tonic-clonic seizures (resolved) #Hypoosmolar hyponatremia-resolved Patient's new onset seizures likely due to metabolic disturbances. Upon arrival in the ED sodium at 122. He was witnessed to have 2 episodes of seizure at the group home. These episodes were terminated with benzodiazepine. However seizures reoccurred while in the ED after loading dose of Keppra. Patient did not regain consciousness in between episodes and required intubation for airway protection. Patient was started on 3% hypertonic saline and overnight sodium corrected to 134. Repeat CT head from this afternoon negative for any interval acute hemorrhage, mass effect or midline shift. No ventricular enlargement. EEG was negative. -Neuro checks q4HR -monitor daily electrolytes -hold off on starting antiepileptic medication #Intubated and sedated #Transaminitis #Aspiration pneumonia #Hypokalemia #Hypochloremia #Hx psychiatric illness Primary care team to manage above conditions and ongoing care needs. The patient's management plan was discussed with my attending physician Dr. Case. Kayla Rodriguez, PGY-2 Attending Provider Attestation/Addendum I personally have seen and examined the patient at the bedside and I agree with resident's findings, assessment and plan of care. Patient's mental status is improving, close to baseline but still confused and intermittently agitated, trying to get out of bed. Will continue to monitor him closely, consider low-dose of Seroquel .if hydroxyzine does not help with sleep
--- NOTE | 2025-08-22 18:30 | PC.NURSE ---
Dr. Laureano aware of EKG NSR with left axis deviation. No new orders
[2025-08-23] VITALS (9 sets, daily range): BP systolic 90–134; BP diastolic 52–88; PULSE 70–100; RESP 16–97; TEMP 36.2–36.5; O2SAT 94–96; BMI 26.1
[2025-08-23] MEDS: HALOPERIDOL LACT INJ 5 MG/ML VIAL 2 MG IV (02:34)
[2025-08-23] MEDS: AMPICILLIN/SULBAC INJ 3 GM in SODIUM CHLORIDE 0.9% (POP) 100 ML IV ×3 (05:50→17:35)
[2025-08-23 06:05] LABS: Basophils # (Auto) 0.0 Thou/mm3 (0.0-0.2); Basophils % (Auto) 0 % (0-2.5); Eosinophils # (Auto) 0.4 Thou/mm3 (0.0-0.5); Eosinophils % (Auto) 6 % (0-10); Hematocrit 38.6 % (41.0-53.0); Hemoglobin 13.0 g/dL (13.5-16.0); Immature Granulocytes Auto 0.06 Thou/mm3 (0.00-0.00); Lymphocytes # (Auto) 0.9 Thou/mm3 (1.0-4.8); Lymphocytes % (Auto) 14 % (10-50); Mean Corpuscular HGB Conc 33.7 g/dl (31.0-37.0); Mean Corpuscular Hemoglobin 30.0 pg (25.0-35.0); Mean Corpuscular Volume 89 fL (80-100); Monocytes # (Auto) 0.7 Thou/mm3 (0.0-0.8); Monocytes % (Auto) 10 % (0-12); Neutrophils # (Auto) 4.7 Thou/mm3 (1.8-7.7); Neutrophils % (Auto) 69 % (37-80); Nucleated Red Blood Cell # 0.00 Thou/mm3 (0.00-0.00); Nucleated Red Blood Cell % 0 /100 WBC (0); Platelet Count 230 Thou/mm3 (140-440); RDW Standard Deviation 41.9 fL (35.1-43.9); Red Blood Count 4.34 Miln/mm3 (4.50-5.90); White Blood Count 6.8 Thou/mm3 (3.8-10.6)
[2025-08-23 06:42] LABS: Alanine Aminotransferase 24 U/L (10-49); Albumin, Serum 3.9 gm/dL (3.5-5.0); Albumin/Globulin Ratio 1.4 (1.2-2.2); Alkaline Phosphatase 75 U/L (46-116); Anion Gap 9 (7-16); Aspartate Amino Transferase 36 U/L (0-34); BUN/Creatinine Ratio 16 Ratio (12-20); Bilirubin,Total 0.5 mg/dL (0.3-1.2); Blood Urea Nitrogen 11 mg/dL (9-23); Calcium 8.8 mg/dL (8.3-10.6); Calcium (Corrected) 8.9 mg/dL (8.5-10.1); Carbon Dioxide 24.8 mMol/L (20.0-31.0); Chloride 107 mMol/L (98-107); Creatinine (Component) 0.7 mg/dL (0.6-1.3); Estimated Creatinine Clearance 117.7 mL/min (>60); Globulin 2.7 gm/dL (2.3-3.5); Glucose 108 mg/dL (74-106); Magnesium 1.8 mg/dL (1.6-2.6); Osmolality,Calculated 281 (275-295); Phosphorous 3.6 mg/dL (2.4-5.1); Potassium 3.9 mMol/L (3.4-5.1); Sodium 141 mMol/L (136-145); Total Protein 6.6 gm/dL (5.7-8.2); eGFR > 60 See Note
[2025-08-23] MEDS: levETIRAcetam INJ 100 MG/ML VIAL 5ML 1000 MG IVP ×2 (08:11→20:40)
[2025-08-23] MEDS: ENOXAPARIN SOD INJ 40 MG/0.4 ML SYRINGE SC (08:11)
[2025-08-23] MEDS: PANTOPRAZOLE 40 MG TABLET PO (08:12)
[2025-08-23] MEDS: TAMSULOSIN HCL 0.4 MG CAPSULE PO (13:19)
--- NOTE | 2025-08-23 13:47 | ESPR_ITS ---
Documentation for date of: 08/23/25 Overnight, patient was administered haloperidol as patient became agitated. After longo removal patient has been unable to void. Several straight cath have been given as bladder scan continue to show >400 cc. Patient tries to get up and use urinal every time he has an urge. Flomax added, no history of enlarged prostate. [place] [facility] [place], please. Possible placement for SNF. Am order of B12, thiamine, syphilis for rule out other causes of generalized weakness. Continue PT. - The patient's plan was discussed with attending Dr. Rios Laureano MD PGY2 Internal Medicine Subjective Subjective Interval history: No overnight events. Patient was examined at bedside; he was sitting upright in bed and eating breakfast again. Labs significant for BP 97/52, hemoglobin 13.7 - > 13.0, AST 60 -> 36, and ALT 26 -> 24. On physical exam, the rash on patient's hands and forearms looks much improved. He has not had any further seizure episodes since he was in the ED. However, patient has apparently been unable to urinate on his own since admission and his bladder scan showed 476 mL of retained urine. Updates to Plan: -D/c fluid restriction -PO tamsulosin 0.4 mg qD -Continue working with social to arrange placement at a homeless halfway Exam Vital Signs Temp Pulse Resp BP Pulse Ox O2 Del Method O2 Flow Rate 97.7 F 85 18 90/60 96 Room Air 15 08/23/25 12:00 08/23/25 12:00 08/23/25 12:00 08/23/25 12:00 08/23/25 12:00 08/23/25 12:00 08/19/25 17:22 FiO2 21 08/21/25 12:30 Narrative Exam Physical Exam: General: A/O x3, no acute distress. Skin: Warm, dry, intact, no obvious rash. Head: Atraumatic, normocephalic. Eyes: Pupils equal and reactive to light. Anicteric. Mouth/Throat: Superficial laceration and one white ulcer to lower lip. No bleeding. Cardiovascular: Regular rate and normal rhythm, no murmur, no JVD or carotid bruits. Respiratory: Bilateral lungs are clear to auscultation, respirations unlabored, no crackles, no wheezing. No accessory muscle use. Gastrointestinal: Suprapubic fullness appreciated on palpation. Soft, no palpable masses. Non-distended. Bowel sounds present. Extremities: Swelling and erythema of bilateral hands and forearms have improved from yesterday. Lower extremities are cold, with no evidence of edema, cyanosis, or clubbing. Posterior tibial pulses are 2+ bilaterally. Skin: Warm, dry, intact. Tattoos. Stage 1 sacrum pressure ulcer present with bandage in place. Objective Labs 08/24/25 04:45 08/24/25 04:45 Labs: Laboratory Results - last 24 hr 08/22/25 08/23/25 13:35 05:45 WBC 6.8 RBC 4.34 L Hgb 13.0 L Hct 38.6 L MCV 89 MCH 30.0 MCHC 33.7 RDW Std Deviation 41.9 Plt Count 230 D Neut % (Auto) 69 Lymph % (Auto) 14 [place] % (Auto) 10 Eos % (Auto) 6 Baso % (Auto) 0 Neut # (Auto) 4.7 Lymph # (Auto) 0.9 L [place] # (Auto) 0.7 Eos # (Auto) 0.4 Baso # (Auto) 0.0 Immature Gran # (Auto) 0.06 H Absolute Nucleated RBC 0.00 Immature Gran % 1 H Nucleated RBC % 0 Sodium 141 141 Potassium 4.3 D 3.9 Chloride 106 107 Carbon Dioxide 25.6 24.8 Anion Gap 9 9 BUN 11 11 Creatinine 0.7 0.7 Estim Creat Clear Calc 117.7 117.7 eGFR > 60 > 60 BUN/Creatinine Ratio 16 16 Glucose 111 H 108 H Calculated Osmolality 281 281 Calcium 8.3 8.8 Corrected Calcium 8.5 8.9 Phosphorus 2.9 3.6 Magnesium 1.8 Total Bilirubin 0.5 D AST 36 H ALT 24 Alkaline Phosphatase 75 Total Protein 6.6 Albumin 3.8 3.9 Globulin 2.7 Albumin/Globulin Ratio 1.4 ABG Interpretation ABG results: 08/19/25 08/20/25 08/21/25 19:30 04:30 04:46 ABG pH 7.43 7.44 7.44 ABG pCO2 34 38 37 ABG pO2 250 H 107 D 72 L D ABG HCO3 23 26 25 ABG O2 Saturation 100 H 99 H 96 ABG Base Excess -1 2 1 Quality Measures Quality Measures none Assessment & Plan Assessment Current Active Medications: Generic Name Dose Route Start Last Admin Trade Name Freq PRN Reason Stop Dose Admin Acetaminophen 650 mg 08/19/25 17:03 Acetaminophen 325 Mg Tablet PO 09/18/25 17:02 Q6H PRN Fever >101.5 or pain 1-3 Diazepam 2 mg 08/21/25 17:26 Diazepam 2 Mg Tablet PO 08/26/25 17:25 QID PRN SEIZURES Enoxaparin Sodium 40 mg 08/20/25 11:00 08/23/25 08:11 Enoxaparin Sod Inj 40 Mg/0.4 Ml Syringe SC 09/03/25 10:59 40 mg QDAY IAN Administration Hydroxyzine HCl 25 mg 08/22/25 16:31 08/23/25 13:19 Hydroxyzine Hcl 25 Mg Tablet PO 09/21/25 16:30 25 mg Q6HR PRN Administration AGITATION OR ANXIETY Ampicillin Sodium/Sulbactam 100 mls @ 200 mls/hr 08/19/25 18:00 08/23/25 12:12 Sodium 3 gm/ Sodium Chloride IV 08/26/25 17:59 200 mls/hr Q6HR IAN Administration Levetiracetam 1,000 mg 08/20/25 21:00 08/23/25 08:11 Levetiracetam Inj 100 Mg/Ml Vial 5ml IVP 09/19/25 20:59 1,000 mg Q12HR IAN Administration Pantoprazole Sodium 40 mg 08/23/25 09:00 08/23/25 08:12 Pantoprazole 40 Mg Tablet PO 09/22/25 08:59 40 mg QDAY IAN Administration Tamsulosin HCl 0.4 mg 08/23/25 12:00 08/23/25 13:19 Tamsulosin Hcl 0.4 Mg Capsule PO 09/22/25 11:59 0.4 mg QDAY IAN Administration Plan Patient is a 45-year-old male with past medical history of CVA, denies history of behavioral health issues and hyperlipidemia who was admitted directly into ICU on 08/19/2025 secondary to status epilepticus requiring intubation. 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 Likely metabolic etiology in the setting of severe hyponatremia (Na 122), which corrected with fluid restriction. Patient endorses history of drinking lots of water when stressed. Head CT 08/19 negative for hemorrhage, mass effect, or midline shift. EEG monitoring showed no signs of seizure activity. Plan: - Valium 2 mg PRN - notify provider before dosing - Neuro checks q4HR. - Neurology actively following, appreciate ongoing recommendations. #Hypertensive urgency / emergency (resolved) Patient was intubated and seen to have BP greater than 180/120 SBP and DBP (patient was normotensive upon admission). Etiology most likely due to poor pain control for intubation. TSH 0.89 wnl. No evidence of thyroid dysfunction. 08/[address] negative for gross hemorrhage, mass effect, or midline shift. Plan: -Normotensive right now, no intervention indicated #Severe hyperkalemia (downtrending) CK 4040 (08/20). No CK available from arrival. 08/20 AM labs showed CK of 4040. 08/21 AM labs showed CK of 1600. Plan: - Encourage PO intake. - Resolved with IV fluids #PNA most likely /2 #Aspiration pneumonia #Leukocytosis Likely secondary to seizures from possible aspiration pneumonia on right lung base but typically found on middle lobe. Leukocytosis down trending. CXR 08/20 showed significant right base pneumonia concerning for possible aspiration pneumonia. MRSA nares negative. Blood cultures Negative. Sputum culture mixed abel. Plan: - Continue IV Unasyn 3 gram Q6H (08/19-) - Discontinued IV vancomycin (08/19-08/21). - Monitor WBC. - Clinical monitoring: fever, respiratory secretions, oxygenations. #Transaminitis (downtrending) Mild elevation in AST likely in the setting of rhabdomyolysis. No clinical evidence at present of intrinsic liver disease or biliary obstruction. Hepatitis Panel Negative. AST down-trended 60 -> 36. Plan: -Continue to monitor LFTs #Hypoglycemia, resolved. Likely secondary to being NPO. Patient's glucose levels dropped twice overnight, with intervention using dextrose. Plan: - Continue monitoring glucose levels closely. - Diet regular now - DC'd IVF D50 #Mild swelling and erythema of bilateral hands and forearms (resolved) Possibly 2/2 allergic reaction to medications Plan: -PO Benadryl prn #Stage 1 sacral pressure ulcer Wound care on board w/ dressing. Health Maintenance Disposition: Working with social to arrange placement at homeless halfway DVT prophylaxis: Lovenox GI prophylaxis: IV Protonix 40 mg qD Diet: Regular Longo: (will restart Longo today) Lines: None Antibiotics: IV Unasyn CODE STATUS: FULL Patient care was discussed with my senior resident, Dr. Laureano and attending Dr. Nation. Zachary Montgomery, DO Internal Medicine, PGY-1 Attending Provider Attestation/Addendum Patient seen and examined with resident physician Dr. Montgomery/ Dr. laureano. Note reviewed, agree with findings and recommendations.
--- NOTE | 2025-08-23 15:51 | PC.SS ---
SW follow-up note: Patient has two accepting facilities, [facility] in [place], and [facility]. Per [facility]ME resident Dr. Laureano, the patient is having voiding issues; will consult with urology. SW will f/u with the patient once medically clear to present his options.
--- NOTE | 2025-08-23 22:41 | ESPR_ITS ---
Documentation for date of: 08/23/25 Subjective Subjective Interval history: Patient was seen in [facility] today at the bedside. He is confused, disoriented, trying to out of bed, not realizing that he is weak. He did not sleep at all after hydroxyzine and needed Haldol for agitation last night. Exam - Neurology Vital Signs Temp Pulse Resp BP Pulse Ox O2 Del Method O2 Flow Rate 97.2 F 84 16 130/81 95 Room Air 15 08/23/25 20:00 08/23/25 20:00 08/23/25 20:00 08/23/25 20:00 08/23/25 20:00 08/23/25 20:00 08/19/25 17:22 FiO2 21 08/21/25 12:30 Narrative Exam GENERAL APPEARANCE: Well hydrated, well-nourished in no acute distress. HEENT: Normocephalic, atraumatic, extraocular movements intact. Pupils: Equal reacting to light NECK: Supple, no JVD or bruits. CARDIOVASULAR: Heart: S1, S2 heard, regular without S3-S4 or murmur no rubs or gallops. LUNGS/CHEST: Clear to auscultation bilaterally. No rails, rhonchi, or wheezing. Normal inspection. ABDOMEN: Soft, nontender, with normal bowel sounds. No pulsatile masses. No rebound, rigidity, or guarding. Normal inspection and palpation. EXTREMITIES: Normal inspection and palpation. No edema, clubbing or cyanosis. SKIN: Warm and dry without rashes. Normal inspection. MUSCULOSKELETAL: No cervical, thoracic, lumbar or midline bony tenderness. Normal inspection. NEURO: Alert, awake and oriented x1. Cranial nerves: II through XII grossly intact. Speech and language: Normal with no dysarthria or dysphasia. Motor system: Tone and bulk: Normal: Strength: 5 out of 5 in all 4 extremities; No pronator drift noted. Deep tendon reflexes: 2+ bilaterally symmetrical. Plantar reflex: Downgoing bilaterally. Sensory system: Intact to all modalities of sensation bilaterally. Rest of the exam: Limited. No signs of meningeal irritation noted. PSYCHIATRIC: Limited. Objective Labs 08/23/25 05:45 08/23/25 05:45 Labs: Laboratory Results - last 24 hr 08/23/25 05:45 WBC 6.8 RBC 4.34 L Hgb 13.0 L Hct 38.6 L MCV 89 MCH 30.0 MCHC 33.7 RDW Std Deviation 41.9 Plt Count 230 D Neut % (Auto) 69 Lymph % (Auto) 14 [place] % (Auto) 10 Eos % (Auto) 6 Baso % (Auto) 0 Neut # (Auto) 4.7 Lymph # (Auto) 0.9 L [place] # (Auto) 0.7 Eos # (Auto) 0.4 Baso # (Auto) 0.0 Immature Gran # (Auto) 0.06 H Absolute Nucleated RBC 0.00 Immature Gran % 1 H Nucleated RBC % 0 Sodium 141 Potassium 3.9 Chloride 107 Carbon Dioxide 24.8 Anion Gap 9 BUN 11 Creatinine 0.7 Estim Creat Clear Calc 117.7 eGFR > 60 BUN/Creatinine Ratio 16 Glucose 108 H Calculated Osmolality 281 Calcium 8.8 Corrected Calcium 8.9 Phosphorus 3.6 Magnesium 1.8 Total Bilirubin 0.5 D AST 36 H ALT 24 Alkaline Phosphatase 75 Total Protein 6.6 Albumin 3.9 Globulin 2.7 Albumin/Globulin Ratio 1.4 ABG Interpretation ABG results: 08/19/25 08/20/25 08/21/25 19:30 04:30 04:46 ABG pH 7.43 7.44 7.44 ABG pCO2 34 38 37 ABG pO2 250 H 107 D 72 L D ABG HCO3 23 26 25 ABG O2 Saturation 100 H 99 H 96 ABG Base Excess -1 2 1 Assessment & Plan Assessment and plan (1) New onset seizure: Status: Resolved Assessment and plan: Secondary to metabolic abnormalities, resolved Electrolytes back to normal range Will try hydroxyzine tonight if it does not help, add Seroquel 25 mg at night to help with sleep. Continue with the physical therapy evaluation and then decide about discharge.
[2025-08-24] VITALS (8 sets, daily range): BP systolic 106–121; BP diastolic 66–86; PULSE 66–96; RESP 16–98; TEMP 36.5–37.1; O2SAT 95–99; BMI 25.8
[2025-08-24] MEDS: AMPICILLIN/SULBAC INJ 3 GM in SODIUM CHLORIDE 0.9% (POP) 100 ML IV ×4 (00:33→19:31)
[2025-08-24 05:28] LABS: Basophils # (Auto) 0.1 Thou/mm3 (0.0-0.2); Basophils % (Auto) 1 % (0-2.5); Eosinophils # (Auto) 0.5 Thou/mm3 (0.0-0.5); Eosinophils % (Auto) 8 % (0-10); Hematocrit 38.8 % (41.0-53.0); Hemoglobin 13.1 g/dL (13.5-16.0); Immature Granulocytes Auto 0.19 Thou/mm3 (0.00-0.00); Lymphocytes # (Auto) 1.2 Thou/mm3 (1.0-4.8); Lymphocytes % (Auto) 19 % (10-50); Mean Corpuscular HGB Conc 33.8 g/dl (31.0-37.0); Mean Corpuscular Hemoglobin 30.6 pg (25.0-35.0); Mean Corpuscular Volume 91 fL (80-100); Monocytes # (Auto) 0.7 Thou/mm3 (0.0-0.8); Monocytes % (Auto) 11 % (0-12); Neutrophils # (Auto) 3.7 Thou/mm3 (1.8-7.7); Neutrophils % (Auto) 58 % (37-80); Nucleated Red Blood Cell # 0.00 Thou/mm3 (0.00-0.00); Nucleated Red Blood Cell % 0 /100 WBC (0); Platelet Count 233 Thou/mm3 (140-440); RDW Standard Deviation 43.5 fL (35.1-43.9); Red Blood Count 4.28 Miln/mm3 (4.50-5.90); White Blood Count 6.3 Thou/mm3 (3.8-10.6)
[2025-08-24 05:51] LABS: Alanine Aminotransferase 30 U/L (10-49); Albumin, Serum 3.9 gm/dL (3.5-5.0); Albumin/Globulin Ratio 1.5 (1.2-2.2); Alkaline Phosphatase 72 U/L (46-116); Anion Gap 11 (7-16); Aspartate Amino Transferase 32 U/L (0-34); BUN/Creatinine Ratio 17 Ratio (12-20); Bilirubin,Total 0.4 mg/dL (0.3-1.2); Blood Urea Nitrogen 12 mg/dL (9-23); Calcium 8.7 mg/dL (8.3-10.6); Calcium (Corrected) 8.8 mg/dL (8.5-10.1); Carbon Dioxide 25.7 mMol/L (20.0-31.0); Chloride 106 mMol/L (98-107); Creatinine (Component) 0.7 mg/dL (0.6-1.3); Estimated Creatinine Clearance 117.7 mL/min (>60); Globulin 2.6 gm/dL (2.3-3.5); Glucose 90 mg/dL (74-106); Magnesium 1.7 mg/dL (1.6-2.6); Osmolality,Calculated 284 (275-295); Phosphorous 4.7 mg/dL (2.4-5.1); Potassium 3.6 mMol/L (3.4-5.1); Sodium 143 mMol/L (136-145); Total Protein 6.5 gm/dL (5.7-8.2); eGFR > 60 See Note
[2025-08-24] MEDS: levETIRAcetam INJ 100 MG/ML VIAL 5ML 1000 MG IVP ×2 (08:17→20:15)
[2025-08-24] MEDS: PANTOPRAZOLE 40 MG TABLET PO (08:17)
[2025-08-24] MEDS: TAMSULOSIN HCL 0.4 MG CAPSULE PO (08:17)
[2025-08-24] MEDS: ENOXAPARIN SOD INJ 40 MG/0.4 ML SYRINGE SC (08:17)
--- NOTE | 2025-08-24 10:00 | PC.SS ---
Addendum entered by KENTON Barrera 08/24/25 15:05: KIMO submitted the updated clinical through [employer]. Pending updated PT notes. Original Note: GME resident Dr. Montgomery reported that the patient is medically clear for discharge; a Kinney catheter was placed for voiding issues. take off worker (KIMO) met with the patient at the bedside to present accepting SNF options. Patient chose [facility]. KIMO called [facility], who asked SW to send PASSR and updated clinicals. KIMO completed PASSR and File Exchanged it with [facility]. KIMO f/u with [facility]ME resident Dr. Montgomery to write today's progress note for SW to send updated clinical to [facility].
--- NOTE | 2025-08-24 14:07 | ESPR_ITS ---
<Statement entered by Perfecto Vargas MD - 08/31/25 12:10> I reviewed above note and agree with findings and plans. I have also personally examined the patient with medicine team and went over assessment and plan with medical team including learning and development intern and resident physician. <Statement entered by Lc Yousif MD - 08/24/25 14:57> I saw and examined patient personally and supervised PGY 1 resident, Dr. Montgomery with formulating a management plan. I agree with the documentation with the exceptions as listed below. Patient was initially admitted to the ICU for hyponatremia seizures. His hyponatremia has since resolved and patient was downgraded to the floor from ICU on 08/21. Since downgrade patient remained asymptomatic with a normal sodium level. Neurology recommended against starting any antiepileptic medication as a etiology is most likely due to hyponatremia. Patient continues to be medically cleared. At this point currently pending insurance authorization for discharge to SNF/acute rehab facility. Plan of care discussed with Attending Dr. Alicia Yousif MD PGY 2 Disclaimer: This note was dictated by speech recognition. Minor errors in shift commander may be present due to voice recognition software. Documentation for date of: 08/24/25 Subjective Subjective Interval history: No overnight events. Patient was examined at bedside; he was sitting upright in bed and eating breakfast again. Patient continues to be medically cleared and is just pending authorization for discharge to SNF or acute rehabilitation facility. Exam Vital Signs Temp Pulse Resp BP Pulse Ox O2 Del Method O2 Flow Rate 98.0 F 80 16 113/86 H 99 Room Air 15 08/24/25 12:00 08/24/25 12:00 08/24/25 12:00 08/24/25 12:00 08/24/25 12:00 08/24/25 12:00 08/19/25 17:22 FiO2 21 08/21/25 12:30 Narrative Exam General: A/O x3, no acute distress. Skin: Warm, dry, intact, no obvious rash. Head: Atraumatic, normocephalic. Eyes: Pupils equal and reactive to light. Anicteric. Mouth/Throat: Superficial laceration and one white ulcer to lower lip. No bleeding. Cardiovascular: Regular rate and normal rhythm, no murmur, no JVD or carotid bruits. Respiratory: Bilateral lungs are clear to auscultation, respirations unlabored, no crackles, no wheezing. No accessory muscle use. Gastrointestinal: Suprapubic fullness appreciated on palpation. Soft, no palpable masses. Non-distended. Bowel sounds present. Extremities: Swelling and erythema of bilateral hands and forearms have improved from yesterday. Lower extremities are cold, with no evidence of edema, cyanosis, or clubbing. Posterior tibial pulses are 2+ bilaterally. Skin: Warm, dry, intact. Tattoos. Stage 1 sacrum pressure ulcer present with bandage in place. Objective Labs 08/24/25 04:45 08/24/25 04:45 Labs: Laboratory Results - last 24 hr 08/24/25 04:45 WBC 6.3 RBC 4.28 L Hgb 13.1 L Hct 38.8 L MCV 91 MCH 30.6 MCHC 33.8 RDW Std Deviation 43.5 Plt Count 233 Neut % (Auto) 58 Lymph % (Auto) 19 [place] % (Auto) 11 Eos % (Auto) 8 Baso % (Auto) 1 Neut # (Auto) 3.7 Lymph # (Auto) 1.2 [place] # (Auto) 0.7 Eos # (Auto) 0.5 Baso # (Auto) 0.1 Immature Gran # (Auto) 0.19 H Absolute Nucleated RBC 0.00 Immature Gran % 3 H Nucleated RBC % 0 Sodium 143 Potassium 3.6 Chloride 106 Carbon Dioxide 25.7 Anion Gap 11 BUN 12 Creatinine 0.7 Estim Creat Clear Calc 117.7 eGFR > 60 BUN/Creatinine Ratio 17 Glucose 90 Calculated Osmolality 284 Calcium 8.7 Corrected Calcium 8.8 Phosphorus 4.7 Magnesium 1.7 Total Bilirubin 0.4 AST 32 ALT 30 Alkaline Phosphatase 72 Total Protein 6.5 Albumin 3.9 Globulin 2.6 Albumin/Globulin Ratio 1.5 ABG Interpretation ABG results: 08/19/25 08/20/25 08/21/25 19:30 04:30 04:46 ABG pH 7.43 7.44 7.44 ABG pCO2 34 38 37 ABG pO2 250 H 107 D 72 L D ABG HCO3 23 26 25 ABG O2 Saturation 100 H 99 H 96 ABG Base Excess -1 2 1 Quality Measures Quality Measures VTE prophylaxis Assessment & Plan Assessment Current Active Medications: Generic Name Dose Route Start Last Admin Trade Name Freq PRN Reason Stop Dose Admin Acetaminophen 650 mg 08/19/25 17:03 Acetaminophen 325 Mg Tablet PO 09/18/25 17:02 Q6H PRN Fever >101.5 or pain 1-3 Diazepam 2 mg 08/21/25 17:26 Diazepam 2 Mg Tablet PO 08/26/25 17:25 QID PRN SEIZURES Enoxaparin Sodium 40 mg 08/20/25 11:00 08/24/25 08:17 Enoxaparin Sod Inj 40 Mg/0.4 Ml Syringe SC 09/03/25 10:59 40 mg QDAY IAN Administration Hydroxyzine HCl 25 mg 08/22/25 16:31 08/24/25 11:17 Hydroxyzine Hcl 25 Mg Tablet PO 09/21/25 16:30 25 mg Q6HR PRN Administration AGITATION OR ANXIETY Ampicillin Sodium/Sulbactam 100 mls @ 200 mls/hr 08/19/25 18:00 08/24/25 11:18 Sodium 3 gm/ Sodium Chloride IV 08/26/25 17:59 200 mls/hr Q6HR IAN Administration Levetiracetam 1,000 mg 08/20/25 21:00 08/24/25 08:17 Levetiracetam Inj 100 Mg/Ml Vial 5ml IVP 09/19/25 20:59 1,000 mg Q12HR IAN Administration Pantoprazole Sodium 40 mg 08/23/25 09:00 08/24/25 08:17 Pantoprazole 40 Mg Tablet PO 09/22/25 08:59 40 mg QDAY IAN Administration Quetiapine Fumarate 25 mg 08/23/25 20:49 08/23/25 22:11 Quetiapine Fumarate 25 Mg Tablet PO 09/22/25 20:59 25 mg HS PRN Administration INSOMNIA Tamsulosin HCl 0.4 mg 08/23/25 12:00 08/24/25 08:17 Tamsulosin Hcl 0.4 Mg Capsule PO 09/22/25 11:59 0.4 mg QDAY IAN Administration Plan Patient is a 45-year-old male with past medical history of CVA, denies history of behavioral health issues and hyperlipidemia who was admitted directly into ICU on 08/19/2025 secondary to status epilepticus requiring intubation. 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 Likely metabolic etiology in the setting of severe hyponatremia (Na 122), which corrected with fluid restriction. Patient endorses history of drinking lots of water when stressed. Head CT 08/19 negative for hemorrhage, mass effect, or midline shift. EEG monitoring showed no signs of seizure activity. Plan: - Valium 2 mg PRN - notify provider before dosing - Neuro checks q4HR. - Neurology actively following, appreciate ongoing recommendations. #Hypertensive urgency / emergency (resolved) Patient was intubated and seen to have BP greater than 180/120 SBP and DBP (patient was normotensive upon admission). Etiology most likely due to poor pain control for intubation. TSH 0.89 wnl. No evidence of thyroid dysfunction. 08/[address] negative for gross hemorrhage, mass effect, or midline shift. Plan: -Normotensive right now, no intervention indicated #Severe hyperkalemia (downtrending) CK 4040 (08/20). No CK available from arrival. 08/20 AM labs showed CK of 4040. 08/21 AM labs showed CK of 1600. Plan: - Encourage PO intake. - Resolved with IV fluids #PNA most likely /2 #Aspiration pneumonia #Leukocytosis Likely secondary to seizures from possible aspiration pneumonia on right lung base but typically found on middle lobe. Leukocytosis down trending. CXR 08/20 showed significant right base pneumonia concerning for possible aspiration pneumonia. MRSA nares negative. Blood cultures Negative. Sputum culture mixed abel. Plan: - Continue IV Unasyn 3 gram Q6H (08/19-) - Discontinued IV vancomycin (08/19-08/21). - Monitor WBC. - Clinical monitoring: fever, respiratory secretions, oxygenations. #Transaminitis (downtrending) Mild elevation in AST likely in the setting of rhabdomyolysis. No clinical evidence at present of intrinsic liver disease or biliary obstruction. Hepatitis Panel Negative. AST down-trended 60 -> 36. Plan: -Continue to monitor LFTs #Hypoglycemia, resolved. Likely secondary to being NPO. Patient had prior episodes of glucose drops this admission which were treated with dextrose. Plan: - Continue monitoring glucose levels closely. - Diet regular now - DC'd IVF D50 #Mild swelling and erythema of bilateral hands and forearms (resolved) Possibly 2/2 allergic reaction to medications Plan: -PO Benadryl prn #Stage 1 sacral pressure ulcer Wound care on board w/ dressing. Health Maintenance Disposition: Pending authorization for placement at SNF / acute rehab DVT prophylaxis: Lovenox GI prophylaxis: IV Protonix 40 mg qD Diet: Regular Kinney: Present Lines: None Antibiotics: IV Unasyn CODE STATUS: FULL Patient care was discussed with my senior resident, Dr. Yousif and attending Dr. Vargas. Zachary Montgomery, DO Internal Medicine, PGY-1
--- NOTE | 2025-08-24 19:41 | PC.NURSE ---
pt's ampicillin was not given at 18:00 today on prior shift. Administered 18:00 antibiotic at 19:30.
[2025-08-24 21:43] LABS: Vitamin B12 443 pg/mL (211-911)
[2025-08-24 21:57] LABS: Syphilis Nonreactive (Nonreactive)
[2025-08-25] VITALS: BP 121/80; PULSE 80; PULSE 90; RESP 19; TEMP 36.6; O2SAT 96
[2025-08-25] MEDS: AMPICILLIN/SULBAC INJ 3 GM in SODIUM CHLORIDE 0.9% (POP) 100 ML IV ×3 (00:38→11:34)
[2025-08-25] MEDS: DIAZEPAM 2 MG TABLET 5 MG PO (02:16)
[2025-08-25] MEDS: DiphenhydrAMINE ELIX 25 MG/10 ML UDC 50 MG PO (02:34)
[2025-08-25 04:00] VITALS: BP 135/99; PULSE 76; PULSE 82; RESP 18; TEMP 36.4; O2SAT 97
[2025-08-25 06:00] VITALS: BMI 25.9
[2025-08-25 07:25] LABS: Osmolality, Urine* 71 mOsm/kg (50-1200)
[2025-08-25 07:38] LABS: Basophils # (Auto) 0.1 Thou/mm3 (0.0-0.2); Basophils % (Auto) 1 % (0-2.5); Eosinophils # (Auto) 0.4 Thou/mm3 (0.0-0.5); Eosinophils % (Auto) 5 % (0-10); Hematocrit 38.6 % (41.0-53.0); Hemoglobin 13.1 g/dL (13.5-16.0); Immature Granulocytes Auto 0.34 Thou/mm3 (0.00-0.00); Lymphocytes # (Auto) 1.3 Thou/mm3 (1.0-4.8); Lymphocytes % (Auto) 16 % (10-50); Mean Corpuscular HGB Conc 33.9 g/dl (31.0-37.0); Mean Corpuscular Hemoglobin 31.1 pg (25.0-35.0); Mean Corpuscular Volume 92 fL (80-100); Monocytes # (Auto) 0.8 Thou/mm3 (0.0-0.8); Monocytes % (Auto) 10 % (0-12); Neutrophils # (Auto) 5.2 Thou/mm3 (1.8-7.7); Neutrophils % (Auto) 64 % (37-80); Nucleated Red Blood Cell # 0.00 Thou/mm3 (0.00-0.00); Nucleated Red Blood Cell % 0 /100 WBC (0); Platelet Count 271 Thou/mm3 (140-440); RDW Standard Deviation 43.4 fL (35.1-43.9); Red Blood Count 4.21 Miln/mm3 (4.50-5.90); White Blood Count 8.1 Thou/mm3 (3.8-10.6)
[2025-08-25 07:39] LABS: Alanine Aminotransferase 42 U/L (10-49); Albumin, Serum 4.4 gm/dL (3.5-5.0); Albumin/Globulin Ratio 1.5 (1.2-2.2); Alkaline Phosphatase 75 U/L (46-116); Anion Gap 10 (7-16); Aspartate Amino Transferase 35 U/L (0-34); BUN/Creatinine Ratio 13 Ratio (12-20); Bilirubin,Total 0.4 mg/dL (0.3-1.2); Blood Urea Nitrogen 10 mg/dL (9-23); Calcium 9.3 mg/dL (8.3-10.6); Calcium (Corrected) 9.3 mg/dL (8.5-10.1); Carbon Dioxide 27.6 mMol/L (20.0-31.0); Chloride 103 mMol/L (98-107); Creatinine (Component) 0.8 mg/dL (0.6-1.3); Estimated Creatinine Clearance 103.0 mL/min (>60); Globulin 3.0 gm/dL (2.3-3.5); Glucose 83 mg/dL (74-106); Osmolality,Calculated 279 (275-295); Potassium 4.0 mMol/L (3.4-5.1); Sodium 141 mMol/L (136-145); Total Protein 7.4 gm/dL (5.7-8.2); eGFR > 60 See Note
[2025-08-25 08:00] VITALS: BP 121/82; PULSE 83; PULSE 85; RESP 18; TEMP 36.1; O2SAT 93
[2025-08-25] MEDS: PANTOPRAZOLE 40 MG TABLET PO (08:00)
[2025-08-25] MEDS: ENOXAPARIN SOD INJ 40 MG/0.4 ML SYRINGE SC (08:00)
[2025-08-25] MEDS: TAMSULOSIN HCL 0.4 MG CAPSULE PO (08:00)
[2025-08-25] MEDS: levETIRAcetam INJ 100 MG/ML VIAL 5ML 1000 MG IVP (08:00)
--- NOTE | 2025-08-25 09:56 | ESDS_ITS ---
<Statement entered by Perfecto Vargas MD - 08/31/25 12:10> I reviewed above note and agree with findings and plans. I have also personally examined the patient with medicine team and went over assessment and plan with medical team including rn internal medicine and resident physician. Planned Discharge Date 08/25/25 DS: Providers Provider Date of admission: 08/19/25 17:00 Primary care physician: Physician No Primary/Family Admitting Provider: Nathaniel Dozier DO Attending Provider on Admission: Ross Nation MD Consults: 08/19/25 17:08 Consult to Neurology / Tele-Neurology Routine Comment: New onset seizures with hyponatremia Consulting Provider: Jason Case 08/22/25 08:08 Referral Physical Therapy Routine Comment: Physician Instructions: Attending Provider on DC: Perfecto Vargas MD Discharging Provider: Zachary Montgomery DO DS: Diagnosis Problem List Completed Was Problem List Reviewed/Reconciled?: Yes Hospital Course Hospital Course Hospital course: Summary: 45 year old male with reported PMH of CVA, unspecified psychiatric illness, and history homelessness presents to the ED [facility] from [facility] on 08/19/25 for evaluation of seizures and was admitted to the ICU for the work-up and management of multiple seizure episodes refractory to antiepileptics and requiring intubation in the setting of euvolemic, hypoosmolar hyponatremia. ER: In the ED, vitals showed: BP 137/96 (then 172/125) HR 86 RR 16 Temp 98.6 SpO2 95% on 15 L oxygen mask CBC showed WBC 16.1 but was otherwise WNL. CMP showed sodium 122, potassium 3.2, chloride 84, carbon dioxide 21.4, anion gap 17, blood glucose 192, calculated osmolality 249, magnesium 1.9, total bilirubin 1.3, AST 43, ALT 16, lipase 21, and procalcitonin 0.16. UA showed clear, colorless urine with specific gravity 1.002 and 1+ blood but was otherwise unremarkable. UDS was negative. Medication given: 1 L NS bolus, midazolam 2 mg x 1, potassium chloride 10 mEq x 1, levetiracetam 2000 mg x 1 and started on NS fluid infusion @ 100 cc/hr, midazolam 2 mg prn, and IV Protonix 40 mg qD. Due to concern regarding patient's ability to protect his airway, he was intubated using etomidate 20 mg and rocuronium 80 mg. Imagin/[address]'s scan image quality was poor due to significant patient motion but seemed to show mild ventricular enlargement and was negative for gross h emorrhage, mass effect, or midline shift. 08/19 chest x-ray showed significant right base pneumonia (possibly aspiration) and a significantly air distended stomach. 08/19 EKG showed sinus rhythm with rate 86 and slightly prolonged QTc 458. 08/19 bedside echo suggests euvolemic status. Hospital: During patient's hospital course, he was kept intubated and sedated in the ICU for his low initial GCS while his hyponatremia was corrected slowly via fluid restriction and desmopressin with sodium checks q4HR. He also received IV Unasyn (and IV vancomycin until MRSA [-]) for the aspiration pneumonia seen on imaging that he had likely developed secondary to his seizure episodes. Once patient had been extubated and stabilized, he had been downgraded to floors for further management and there were no further seizures. However, he did exhibit bilateral lower extremity weakness as well as urinary retention for which he received PT and Kinney catheter with Flomax, respectively. Patient was medically cleared on 08/24/25 but could not be discharged to SNF/acute rehabilitation until prior authorization could be obtained on 08/26/25. Per psychiatric social worker supervisor-Patient was confirmed to be released from halfway and may discharge to SNF. Patient is safe to discharge to home. Further discharge instructions below. Instructions: - You were started on a medication Flomax to help you urinate. - Recommend to stop all illicit drugs - Follow up with your primary care physician within 1 week of discharge. If you do not have a primary care physician, please follow up with the [facility] (Residents clinic) ([phone]) - Get a referral to urology from your primary or [facility]. ? If you experience any new, worsening or persistent symptoms either call your primary doctor, or dial 911 or present to the emergency department. #Status epilepticus (new onset), resolved. #Severe hypoosmolar hyponatremia, improved #Aspiration pneumonia #Hypertensive urgency / emergency #Chemical sedation #Intubated on volume control for sub-8 GCS #Transaminitis #Hypokalemia #Hypochloremia #Rhabdomyolysis #Leukocytosis Status at Discharge Cognitive/Behavioral Status at Discharge: stable Functional Status at Discharge: ambulation as per PT Overall Status at Discharge: patient is stabilized at new baseline Patient's care plan was discussed with my attending, Dr. Vargas, and senior resident, Dr. Laureano. Zachary Montgomery DO Internal Medicine, PGY-1 - The patient's plan was discussed with attending Dr. Alicia Laureano MD PGY2 Internal Medicine Time Spent with Patient Time attestation: Total time spent providing and/or coordinating discharge services: Time spent: Greater than 30 minutes Exam Vital Signs Temp Pulse Resp BP Pulse Ox O2 Del Method O2 Flow Rate 97.8 F 66 20 109/66 97 Room Air 15 08/24/25 07:48 08/24/25 08:00 08/24/25 07:48 08/24/25 07:48 08/24/25 07:48 08/24/25 07:48 08/19/25 17:22 FiO2 21 08/21/25 12:30 Narrative Exam General: A/O x3, no acute distress. Skin: Warm, dry, intact, no obvious rash. Head: Atraumatic, normocephalic. Eyes: Pupils equal and reactive to light. Anicteric. Mouth/Throat: Superficial laceration and one white ulcer to lower lip. No bleeding. Cardiovascular: Regular rate and normal rhythm, no murmur, no JVD or carotid bruits. Respiratory: Bilateral lungs are clear to auscultation, respirations unlabored, no crackles, no wheezing. No accessory muscle use. Gastrointestinal: Suprapubic fullness appreciated on palpation. Soft, no palpable masses. Non-distended. Bowel sounds present. Extremities: Swelling and erythema of bilateral hands and forearms have improved from yesterday. Lower extremities are cold, with no evidence of edema, cyanosis, or clubbing. Posterior tibial pulses are 2+ bilaterally. Skin: Warm, dry, intact. Tattoos. Stage 1 sacrum pressure ulcer present with bandage in place. Discharge Plan Plan Patient Disposition: Xfer Skilled Nsg Fac (SNF) Patient condition on transfer: Stable and Benefits outweigh risks Care Plan Goals: - You were started on a medication Flomax to help you urinate. - Recommend to stop all illicit drugs - Follow up with your primary care physician within 1 week of discharge. If you do not have a primary care physician, please follow up with the [facility] (Residents clinic) ([phone]) - Get a referral to urology from your primary or [facility]. - Follow up with Urology re: Kinney Catheter ? If you experience any new, worsening or persistent symptoms either call your primary doctor, or dial 911 or present to the emergency department. Prescriptions/Referrals Prescriptions/Med Rec: Continued aripiprazole [Abilify] 10 mg tablet 10 mg PO QDAY tamsulosin [Flomax] 0.4 mg capsule 0.4 mg PO QDAY 30 Days Qty: 30 0RF Discontinued naproxen 500 mg tablet 500 mg PO BID PRN (Reason: pain) Qty: 30 0RF cyclobenzaprine 5 mg tablet 5 mg PO TID PRN (Reason: muscle spasm) Qty: 30 0RF naproxen 500 mg tablet 500 mg PO BID PRN (Reason: pain) Qty: 30 0RF baclofen 10 mg tablet 10 mg PO BID PRN (Reason: muscle spasm) Qty: 30 0RF ibuprofen 800 mg tablet 800 mg PO TID PRN (Reason: pain) Qty: 30 0RF ibuprofen 800 mg tablet 800 mg PO TID PRN (Reason: pain) Qty: 30 0RF ibuprofen 600 mg tablet 600 mg PO Q6H PRN (Reason: pain) Qty: 30 0RF ibuprofen 600 mg tablet 600 mg PO Q8H PRN (Reason: pain) Qty: 20 0RF acetaminophen 500 mg capsule 500 mg PO Q6H PRN (Reason: pain) Qty: 30 0RF lidocaine [Lidoderm] 5 % adhesive patch,medicated 2 patch topical QDAY PRN (Reason: pain) Qty: 30 0RF Rx Instructions: leave on most painful area for up to 12 hrs cyclobenzaprine 5 mg tablet 5 mg PO TID PRN (Reason: muscle spasm) Qty: 15 0RF naproxen 500 mg tablet 500 mg PO BID PRN (Reason: pain) Qty: 14 0RF bacitracin 500 unit/gram ointment 1 applic topical Q12H Qty: 28 0RF ibuprofen 800 mg tablet 800 mg PO Q8H PRN (Reason: pain) Qty: 30 0RF sulfamethoxazole-trimethoprim [Bactrim DS] 800-160 mg tablet 1 tab PO BID Qty: 14 0RF naproxen 500 mg tablet 500 mg PO BID PRN (Reason: pain) Qty: 30 0RF ibuprofen 600 mg tablet 600 mg PO Q6H PRN (Reason: pain) Qty: 30 0RF methocarbamol 500 mg tablet 1,000 mg PO Q8H PRN (Reason: pain) Qty: 30 0RF naproxen [Naprosyn] 500 mg tablet 500 mg PO BID Qty: 14 0RF ibuprofen 600 mg tablet 600 mg PO Q6H PRN (Reason: fever or pain) Qty: 30 0RF cyclobenzaprine 5 mg tablet 5 mg PO TID PRN (Reason: muscle spasm) Qty: 14 0RF naproxen 500 mg tablet 500 mg PO BID PRN (Reason: pain) Qty: 30 0RF cyclobenzaprine 5 mg tablet 5 mg PO TID PRN (Reason: muscle spasm) Qty: 30 0RF acetaminophen 500 mg capsule 500 mg PO Q6H PRN (Reason: pain) Qty: 30 0RF Referrals: [facility] [Outside] No Primary/Family,Physician [Primary Care Provider] Patient/Caregiver Discharge Instructions Education Materials: Hyponatremia Dc, ED Kinney Catheter, Care, ED Urinary Retention, Male Print Language: Honduran Stand Alone Forms: Tami Award Info., Patient Portal Info Letter Discharge Order Discharge Orders: Discharge (Routine); Ordered 08/25/25 Ordered By: Lc Yousif Quality Discharge Quality Measures VTE prophylaxis
--- NOTE | 2025-08-25 11:51 | PC.SS ---
SS was contacted by Sera from [facility] who informed SS that Insurance was requesting for updated progress note stating patient was release from [facility]. SS updated Dr. Laureano. at the time Authorization is pending.
[2025-08-25 12:00] VITALS: BP 106/78; PULSE 89; PULSE 96; RESP 18; TEMP 36.6; O2SAT 96
--- NOTE | 2025-08-25 13:29 | PD.RESPRO ---
Documentation for date of: 08/25/25 Exam Vital Signs Temp Pulse Resp BP Pulse Ox O2 Del Method O2 Flow Rate 97.0 F 83 18 121/82 93 L Room Air 15 08/25/25 08:00 08/25/25 08:00 08/25/25 08:00 08/25/25 08:00 08/25/25 08:00 08/25/25 08:00 08/19/25 17:22 FiO2 21 08/21/25 12:30 Objective Labs 08/25/25 05:45 08/25/25 05:45 Labs: Laboratory Results - last 24 hr 08/20/25 08/24/25 08/25/25 11:20 04:45 05:45 WBC 8.1 RBC 4.21 L Hgb 13.1 L Hct 38.6 L MCV 92 MCH 31.1 MCHC 33.9 RDW Std Deviation 43.4 Plt Count 271 D Neut % (Auto) 64 Lymph % (Auto) 16 [place] % (Auto) 10 Eos % (Auto) 5 Baso % (Auto) 1 Neut # (Auto) 5.2 Lymph # (Auto) 1.3 [place] # (Auto) 0.8 Eos # (Auto) 0.4 Baso # (Auto) 0.1 Immature Gran # (Auto) 0.34 H Absolute Nucleated RBC 0.00 Immature Gran % 4 H Nucleated RBC % 0 Sodium 141 Potassium 4.0 Chloride 103 Carbon Dioxide 27.6 Anion Gap 10 BUN 10 Creatinine 0.8 Estim Creat Clear Calc 103.0 eGFR > 60 BUN/Creatinine Ratio 13 Glucose 83 Calculated Osmolality 279 Calcium 9.3 Corrected Calcium 9.3 Total Bilirubin 0.4 AST 35 H ALT 42 Alkaline Phosphatase 75 Total Protein 7.4 Albumin 4.4 D Globulin 3.0 Albumin/Globulin Ratio 1.5 Vitamin B12 443 Urine Osmolality 71 Syphilis Serology Nonreactive ABG Interpretation ABG results: 08/19/25 08/20/25 08/21/25 19:30 04:30 04:46 ABG pH 7.43 7.44 7.44 ABG pCO2 34 38 37 ABG pO2 250 H 107 D 72 L D ABG HCO3 23 26 25 ABG O2 Saturation 100 H 99 H 96 ABG Base Excess -1 2 1 Quality Measures Quality Measures VTE prophylaxis Assessment & Plan Assessment Current Active Medications: Generic Name Dose Route Start Last Admin Trade Name Freq PRN Reason Stop Dose Admin Acetaminophen 650 mg 08/19/25 17:03 Acetaminophen 325 Mg Tablet PO 09/18/25 17:02 Q6H PRN Fever >101.5 or pain 1-3 Diazepam 2 mg 08/21/25 17:26 Diazepam 2 Mg Tablet PO 08/26/25 17:25 QID PRN SEIZURES Enoxaparin Sodium 40 mg 08/20/25 11:00 08/25/25 08:00 Enoxaparin Sod Inj 40 Mg/0.4 Ml Syringe SC 09/03/25 10:59 40 mg QDAY IAN Administration Hydroxyzine HCl 25 mg 08/22/25 16:31 08/25/25 04:07 Hydroxyzine Hcl 25 Mg Tablet PO 09/21/25 16:30 25 mg Q6HR PRN Administration AGITATION OR ANXIETY Levetiracetam 1,000 mg 08/20/25 21:00 08/25/25 08:00 Levetiracetam Inj 100 Mg/Ml Vial 5ml IVP 09/19/25 20:59 1,000 mg Q12HR IAN Administration Pantoprazole Sodium 40 mg 08/23/25 09:00 08/25/25 08:00 Pantoprazole 40 Mg Tablet PO 09/22/25 08:59 40 mg QDAY IAN Administration Quetiapine Fumarate 25 mg 08/23/25 20:49 08/24/25 20:15 Quetiapine Fumarate 25 Mg Tablet PO 09/22/25 20:59 25 mg HS PRN Administration INSOMNIA Tamsulosin HCl 0.4 mg 08/23/25 12:00 08/25/25 08:00 Tamsulosin Hcl 0.4 Mg Capsule PO 09/22/25 11:59 0.4 mg QDAY IAN Administration
--- NOTE | 2025-08-25 13:55 | PC.SS ---
SS was contacted by Sera from [facility] informed SS that patient had authorization. SS set up transportation with [facility], Reference # [id number]. SS updated patient's nurse Alex.
--- NOTE | 2025-08-25 15:42 | PC.SS ---
SS follow up note: SS contacted [facility] care to check status on transportation ETA. At the time there is not an assigned transportation team. SS provided Nurses stations contact number. SS submitted PCS form and face-Sheet through [employer]. SS will update Sera from [facility].
[2025-08-25 16:00] VITALS: BP 120/81; PULSE 85; PULSE 98; RESP 18; TEMP 36.5; O2SAT 97
--- NOTE | 2025-08-25 17:55 | PD.RESPRO ---
Documentation for date of: 08/25/25 Subjective Subjective Interval history: Patient examined at bedside, vitals stable and labs unremarkable. Seroquel helping at night for agitation and anxiety. Patient mentation is improving. Alert and oriented x2. Continue to monitor labs and continue with physical therapy for strengthening. Exam Vital Signs Temp Pulse Resp BP Pulse Ox O2 Del Method O2 Flow Rate 97.7 F 98 18 120/81 97 Room Air 15 08/25/25 16:00 08/25/25 16:00 08/25/25 16:00 08/25/25 16:00 08/25/25 16:00 08/25/25 16:00 08/19/25 17:22 FiO2 21 08/21/25 12:30 Narrative Exam General: Middle age male, No acute distress, cooperative HEENT: NCAT, No JVD noted. Mucosa moist. Pupils are equal and reactive to light bilaterally Cardiovascular: Normal S1 and S2. Regular rate and rhythm. Respiratory: Lungs are clear to auscultation bilaterally. No wheezing or crackles heard. Abdomen: Soft, nontender, not distended, normal bowel sounds. Skin: Warm to touch, dry, no rashes noted, tattos all over Musculoskeletal: No gross injuries. Able to move all 4 extremities. No pitting edema Neuro: Alert and oriented x2. No focal neuro deficits. Psych: Normal affect and mood Objective Labs 08/25/25 05:45 08/25/25 05:45 Labs: Laboratory Results - last 24 hr 08/20/25 08/24/25 08/25/25 11:20 04:45 05:45 WBC 8.1 RBC 4.21 L Hgb 13.1 L Hct 38.6 L MCV 92 MCH 31.1 MCHC 33.9 RDW Std Deviation 43.4 Plt Count 271 D Neut % (Auto) 64 Lymph % (Auto) 16 [place] % (Auto) 10 Eos % (Auto) 5 Baso % (Auto) 1 Neut # (Auto) 5.2 Lymph # (Auto) 1.3 [place] # (Auto) 0.8 Eos # (Auto) 0.4 Baso # (Auto) 0.1 Immature Gran # (Auto) 0.34 H Absolute Nucleated RBC 0.00 Immature Gran % 4 H Nucleated RBC % 0 Sodium 141 Potassium 4.0 Chloride 103 Carbon Dioxide 27.6 Anion Gap 10 BUN 10 Creatinine 0.8 Estim Creat Clear Calc 103.0 eGFR > 60 BUN/Creatinine Ratio 13 Glucose 83 Calculated Osmolality 279 Calcium 9.3 Corrected Calcium 9.3 Total Bilirubin 0.4 AST 35 H ALT 42 Alkaline Phosphatase 75 Total Protein 7.4 Albumin 4.4 D Globulin 3.0 Albumin/Globulin Ratio 1.5 Vitamin B12 443 Urine Osmolality 71 Syphilis Serology Nonreactive ABG Interpretation ABG results: 08/19/25 08/20/25 08/21/25 19:30 04:30 04:46 ABG pH 7.43 7.44 7.44 ABG pCO2 34 38 37 ABG pO2 250 H 107 D 72 L D ABG HCO3 23 26 25 ABG O2 Saturation 100 H 99 H 96 ABG Base Excess -1 2 1 Quality Measures Quality Measures VTE prophylaxis Assessment & Plan Assessment Current Active Medications: Generic Name Dose Route Start Last Admin Trade Name Freq PRN Reason Stop Dose Admin Acetaminophen 650 mg 08/19/25 17:03 Acetaminophen 325 Mg Tablet PO 09/18/25 17:02 Q6H PRN Fever >101.5 or pain 1-3 Diazepam 2 mg 08/21/25 17:26 Diazepam 2 Mg Tablet PO 08/26/25 17:25 QID PRN SEIZURES Enoxaparin Sodium 40 mg 08/20/25 11:00 08/25/25 08:00 Enoxaparin Sod Inj 40 Mg/0.4 Ml Syringe SC 09/03/25 10:59 40 mg QDAY IAN Administration Hydroxyzine HCl 25 mg 08/22/25 16:31 08/25/25 04:07 Hydroxyzine Hcl 25 Mg Tablet PO 09/21/25 16:30 25 mg Q6HR PRN Administration AGITATION OR ANXIETY Levetiracetam 1,000 mg 08/20/25 21:00 08/25/25 08:00 Levetiracetam Inj 100 Mg/Ml Vial 5ml IVP 09/19/25 20:59 1,000 mg Q12HR IAN Administration Pantoprazole Sodium 40 mg 08/23/25 09:00 08/25/25 08:00 Pantoprazole 40 Mg Tablet PO 09/22/25 08:59 40 mg QDAY IAN Administration Quetiapine Fumarate 25 mg 08/23/25 20:49 08/24/25 20:15 Quetiapine Fumarate 25 Mg Tablet PO 09/22/25 20:59 25 mg HS PRN Administration INSOMNIA Tamsulosin HCl 0.4 mg 08/23/25 12:00 08/25/25 08:00 Tamsulosin Hcl 0.4 Mg Capsule PO 09/22/25 11:59 0.4 mg QDAY IAN Administration Plan 45 year old male with reported PMH of CVA (per prior charts), unspecified psychiatric illness, and chronic homelessness presents to the ED BIBA from [facility] for evaluation of seizures. In the ED, patient was given 1 L NS bolus, midazolam 2 mg x 1, potassium chloride 10 mEq x 1, levetiracetam 2000 mg x 1 and started on NS fluid infusion @ 100 cc/hr, midazolam 2 mg prn. Due to concern regarding patient's ability to protect his airway, he was intubated. Patient was admitted to the ICU for the work-up and management of multiple seizure episodes refractory to antiepileptics and requiring intubation in the setting of euvolemic, hypoosmolar hyponatremia. #New onset tonic-clonic seizures (resolved) #Hypoosmolar hyponatremia-resolved Patient's new onset seizures likely due to metabolic disturbances. Upon arrival in the ED sodium at 122. He was witnessed to have 2 episodes of seizure at the intermediate. These episodes were terminated with benzodiazepine. However seizures reoccurred while in the ED after loading dose of Keppra. Patient did not regain consciousness in between episodes and required intubation for airway protection. Patient was started on 3% hypertonic saline and overnight sodium corrected to 134. Repeat CT head from this afternoon negative for any interval acute hemorrhage, mass effect or midline shift. No ventricular enlargement. EEG was negative. -Neuro checks q4HR -monitor daily electrolytes -hold off on starting antiepileptic medication -Serogquel or hydroxyzine to help with agitation at night #Transaminitis #Aspiration pneumonia #Hypokalemia-resolved #Hypochloremia-resolved #Hx psychiatric illness Primary care team to manage above conditions and ongoing care needs. The patient's management plan was discussed with my attending physician Dr. Case. Kayla Rodriguez, PGY-2 Attending Provider Attestation/Addendum I personally have seen and examined the patient at the bedside and I agree with resident's findings, assessment and plan of care. Patient presenting symptoms are most consistent with metabolic encephalopathy, significant improvement in mental status, close to baseline. His strength has improved and is able to ambulate in the hallway without much support. He is going to be discharged to [facility]. Will see him back in 2 weeks.
[2025-09-01 06:29] LABS: Vitamin B1 (Thiamine)* 12 nmol/L (8-30)
--- NOTE | 2025-09-13 07:56 | PD.NEUROCONS ---
History of Present Illness Data of Consult Requesting Physician: Ross Nation MD Primary Care Provider: Physician No Primary/Family Consult Narrative History of present illness: 08/19/25 cc:: cc: Ross Nation MD Meds Home Medications and Allergies Home Medications ?Medication ?Instructions ?Recorded ?Confirmed ?Type aripiprazole 10 mg tablet (Abilify) 10 mg PO QDAY 08/19/25 08/19/25 History Allergies Allergy/AdvReac Type Severity Reaction Status Date / Time No Known Allergies Allergy Verified 07/09/25 06:29 Exam - Neurology Vital Signs Temp Pulse Resp BP Pulse Ox O2 Del Method O2 Flow Rate 97.7 F 98 18 120/81 97 Room Air 15 08/25/25 16:00 08/25/25 16:00 08/25/25 16:00 08/25/25 16:00 08/25/25 16:00 08/25/25 16:00 08/19/25 17:22 FiO2 21 08/21/25 12:30 Results Labs 08/25/25 05:45 08/25/25 05:45 ABG Interpretation ABG results: 08/19/25 08/20/25 08/21/25 19:30 04:30 04:46 ABG pH 7.43 7.44 7.44 ABG pCO2 34 38 37 ABG pO2 250 H 107 D 72 L D ABG HCO3 23 26 25 ABG O2 Saturation 100 H 99 H 96 ABG Base Excess -1 2 1 Assessment & Plan Assessment and plan (1) New onset seizure: Status: Resolved
== END 2025-08-25 18:56 | disposition skilled nursing facility (03) | DRG 53 ==
LOC: SERX 16:22 → SERHOLD 17:31 → S2SX 20:23 → S3NX 08-22 07:20
PROVIDERS: Student in an Organized Health Care Education/Training Program; Admitting Provider Student in an Organized Health Care Education/Training Program; Emergency Provider Family Medicine; Visit Provider Internal Medicine
DX: G40.901 Epilepsy, unspecified, not intractable, with status epilepticus (principal); E87.1 Hypo-osmolality and hyponatremia; F15.90 Other stimulant use, unspecified, uncomplicated; Z87.891 Personal history of nicotine dependence; S01.511A Laceration without foreign body of lip, initial encounter; E87.6 Hypokalemia; I16.0 Hypertensive urgency; R74.01 Elevation of levels of liver transaminase levels; J96.01 Acute respiratory failure with hypoxia; M62.82 Rhabdomyolysis; E87.5 Hyperkalemia; J69.0 Pneumonitis due to inhalation of food and vomit; E87.8 Other disorders of electrolyte and fluid balance, not elsewhere classified; E22.2 Syndrome of inappropriate secretion of antidiuretic hormone; F41.9 Anxiety disorder, unspecified; G93.41 Metabolic encephalopathy; L89.151 Pressure ulcer of sacral region, stage 1; Z59.01 Sheltered homelessness
CPT/HCPCS: 36415; 36600; 70450; 71045; 80053; 80061; 80069; 80074; 80202; 80307; 81001; 82436; 82550; 82570; 82607; 82803; 83605; 83690; 83735; 83935; 84100; 84133; 84145; 84156; 84295; 84300; 84425; 84443; 85025; 85610; 85730; 86780; 87040; 87081; 87205; 87811; 93005; 93225; 94002; 94003; 95813; 96365; 96375; 96376; 97162; 99285; J0295; J1630; J1650; J1953; J2250; J2251; J2470; J2597; J2704; J3010; J3373; J3374; J3475; J3480; J3490; J7030; J7070; J7120; J7131; J7999; A9270